=== PATIENT | male | born 1960 | race Caucasian/White ===

== ENCOUNTER 2016-10-16 19:29 | Emergency (ER) | payer MEDICARE, OTHER ==
[2016-10-16 20:16] VITALS: BP 136/80; PULSE 71; RESP 18; TEMP 98.6
[2016-10-16] MEDS ORDERED: SODIUM CHLORIDE 0.9% 500 ML IV STA (21:16)
--- NOTE | 2016-10-16 21:19 | ED ---
General Adult HPI - General Chief complaint: GI Bleed Stated complaint: blood in stool abd pain Time Seen by Provider: 10/16/16 21:00 Source: patient, RN notes reviewed Mode of arrival: ambulatory Limitations: no limitations - History of Present Illness Initial comments: This is a 56-year-old male who presents emergency Department after having some abdominal cramping and then when he had a bowel movement was only bright red blood. Patient states the abdominal cramping continues this time. Patient denies ever having any bright red blood per rectum before. Patient denies any rectal pain. Patient states he had a colonoscopy about a year ago and evidently was normal. Patient denies any blood thinners. Patient denies any lightheadedness dizziness or near syncopal episode. Patient denies any chest pain difficult breathing shortness of breath or palpitations. - Related Data Home Medications Medication Instructions Recorded Confirmed Albuterol Sulfate [Ventolin HFA] 2 puff INHALATION RT-Q6H PRN 09/07/14 03/03/16 Albuterol Nebulized [Ventolin 2.5 mg INHALATION RT-Q4H PRN 03/03/16 03/03/16 Nebulized] Arformoterol Tartrate [Brovana] 15 mcg INHALATION RT-BID 03/03/16 03/03/16 Budesonide [Pulmicort] 0.5 mg INHALATION RT-BID 03/03/16 03/03/16 Ibuprofen [Motrin] 800 mg PO TID PRN 03/03/16 03/03/16 Tiotropium [place] [Spiriva 2 puff INHALATION RT-DAILY 03/03/16 03/03/16 Respimat] hydrOXYzine PAMOATE [Vistaril] 25 mg PO Q6H PRN 03/03/16 03/03/16 oxyCODONE-APAP 5-325MG [Percocet 1 tab PO Q6HR PRN 03/03/16 03/03/16 5-325 mg] Previous Rx's Medication Instructions Recorded Azithromycin [Zithromax Tri-Alfredo] 500 mg PO DAILY #3 tab 03/06/16 guaiFENesin-DM 100-10MG/5ML 10 ml PO TID PRN #1 bottle 03/06/16 [Robitussin DM] predniSONE 10 mg PO DAILY #30 tab 03/06/16 Allergies Allergy/AdvReac Type Severity Reaction Status Date / Time levofloxacin [From Levaquin] Allergy Nausea & Verified 10/16/16 20:17 Vomiting & Diarrhea Review of Systems ROS Statement: Those systems with pertinent positive or pertinent negative responses have been documented in the HPI. ROS Other: All systems not noted in ROS Statement are negative. Past Medical History Past Medical History: COPD Additional Past Medical History / Comment(s): Pt states he has hx of 3 respiratory arrests and was vented, he has r shoulder and bilateral ankle pain, generalized arthritis, History of Any Multi-Drug Resistant Organisms: None Reported Past Surgical History: Adenoidectomy, Hernia Repair, Joint Replacement, Orthopedic Surgery, Tonsillectomy Additional Past Surgical History / Comment(s): R inguinal hernia repair, L rotator cuff repair, bialteral total knee arthroplasties, R shoulder spur removal, teeth extracted, colonoscopy-nromal. Past Anesthesia/Blood Transfusion Reactions: No Reported Reaction Past Psychological History: No Psychological Hx Reported Smoking Status: Former smoker Past Alcohol Use History: None Reported Past Drug Use History: Marijuana - Past Family History Father Family Medical History: Cancer Additional Family Medical History / Comment(s): Father of lung cancer at the age of 68. He was a smoker. Mother Family Medical History: Dementia Additional Family Medical History / Comment(s): Mother is 77yrs old. General Exam - General Exam Comments Initial Comments: GENERAL: Patient is well-developed and well-nourished. Patient is nontoxic and well- hydrated and is in no acute distress. ENT: Neck is soft and supple. No significant lymphadenopathy is noted. Oropharynx is clear. Moist mucous membranes. Neck has full range of motion without eliciting any pain. EYES: The sclera were anicteric and conjunctiva were pink and moist. Extraocular movements were intact and pupils were equal round and reactive to light. Eyelids were unremarkable. PULMONARY: Unlabored respirations. Good breath sounds bilaterally. No audible rales rhonchi or wheezing was noted. CARDIOVASCULAR: There is a regular rate and rhythm without any murmurs gallops or rubs. ABDOMEN: Soft and nontender with normal bowel sounds. No palpable organomegaly was noted. There is no palpable pulsatile mass. SKIN: Skin is clear with no lesions or rashes and otherwise unremarkable. RECTAL Rectal exam showed no external hemorrhoids and no obvious site of bleeding NEUROLOGIC: Patient is alert and oriented x3. Cranial nerves II through XII are grossly intact. Motor and sensory are also intact. Normal speech, volume and content. Symmetrical smile. MUSCULOSKELETAL: Normal extremities with adequate strength and full range of motion. No lower extremity swelling or edema. No calf tenderness. LYMPHATICS: No significant lymphadenopathy is noted PSYCHIATRIC: Normal psychiatric evaluation. Normal interpersonal interactions appears functionally intact in deals appropriately with others. No signs of depression. No signs of anxiety. Limitations: no limitations Course Vital Signs 10/16/16 20:13 Temperature 98.6 F Pulse Rate 71 Respiratory 18 Rate Blood Pressure 136/80 O2 Sat by Pulse 98 Oximetry Medical Decision Making - Medical Decision Making EKG shows a normal sinus rhythm at [address] interval is on a 56 QRS is 86 QT interval 366 QTC is 425. Patient's EKG shows no ST segment elevation or depression. I went back into the patient's room to explain to him his results I told him he needed to stay in the hospital he refused. I discussed this with him with his family present and he continued to refuse he signed out AMA and states he'll follow-up with his own physician if he needs to patient is aware of the risks I explained it to him thoroughly - Lab Data Result diagrams: 10/16/16 21:41 10/16/16 21:41 Lab Results 10/16/16 10/16/16 10/16/16 Range/Units 21:41 21:41 21:41 WBC 17.0 H (3.8-10.6) k/uL RBC 5.00 (4.30-5.90) m/uL Hgb 15.4 (13.0-17.5) gm/dL Hct 45.0 (39.0-53.0) % MCV 89.9 (80.0-100.0) fL MCH 30.8 (25.0-35.0) pg MCHC 34.2 (31.0-37.0) g/dL RDW 14.3 (11.5-15.5) % Plt Count 259 (150-450) k/uL Neutrophils % 79 % Lymphocytes % 17 % Monocytes % 3 % Eosinophils % 1 % Basophils % 0 % Neutrophils # 13.5 H (1.3-7.7) k/uL Lymphocytes # 2.8 (1.0-4.8) k/uL Monocytes # 0.4 (0-1.0) k/uL Eosinophils # 0.2 (0-0.7) k/uL Basophils # 0.1 (0-0.2) k/uL PT (9.0-12.0) sec INR (<1.2) APTT (22.0-30.0) sec Sodium 138 (137-145) mmol/L Potassium 4.7 (3.5-5.1) mmol/L Chloride 103 (98-107) mmol/L Carbon Dioxide 24 (22-30) mmol/L Anion Gap 11 mmol/L BUN 20 (9-20) mg/dL Creatinine 0.98 (0.66-1.25) mg/dL Est GFR (MDRD) Af Amer >60 (>60 ml/min/1.73 sqM) Est GFR (MDRD) Non-Af >60 (>60 ml/min/1.73 sqM) Glucose 110 H (74-99) mg/dL Calcium 9.7 (8.4-10.2) mg/dL Total Bilirubin 0.5 (0.2-1.3) mg/dL AST 17 (17-59) U/L ALT 39 (21-72) U/L Alkaline Phosphatase 108 (38-126) U/L Total Creatine Kinase 60 (55-170) U/L CK-MB (CK-2) 1.1 (0.0-2.4) ng/mL CK-MB (CK-2) Rel Index 1.8 Troponin I <0.012 (0.000-0.034) ng/mL Total Protein 7.5 (6.3-8.2) g/dL Albumin 4.6 (3.5-5.0) g/dL Blood Type Blood Type Recheck Antibody Screen Spec Expiration Date 10/16/16 10/16/16 Range/Units 21:41 21:41 WBC (3.8-10.6) k/uL RBC (4.30-5.90) m/uL Hgb (13.0-17.5) gm/dL Hct (39.0-53.0) % MCV (80.0-100.0) fL MCH (25.0-35.0) pg MCHC (31.0-37.0) g/dL RDW (11.5-15.5) % Plt Count (150-450) k/uL Neutrophils % % Lymphocytes % % Monocytes % % Eosinophils % % Basophils % % Neutrophils # (1.3-7.7) k/uL Lymphocytes # (1.0-4.8) k/uL Monocytes # (0-1.0) k/uL Eosinophils # (0-0.7) k/uL Basophils # (0-0.2) k/uL PT 10.0 (9.0-12.0) sec INR 1.0 (<1.2) APTT 24.2 (22.0-30.0) sec Sodium (137-145) mmol/L Potassium (3.5-5.1) mmol/L Chloride (98-107) mmol/L Carbon Dioxide (22-30) mmol/L Anion Gap mmol/L BUN (9-20) mg/dL Creatinine (0.66-1.25) mg/dL Est GFR (MDRD) Af Amer (>60 ml/min/1.73 sqM) Est GFR (MDRD) Non-Af (>60 ml/min/1.73 sqM) Glucose (74-99) mg/dL Calcium (8.4-10.2) mg/dL Total Bilirubin (0.2-1.3) mg/dL AST (17-59) U/L ALT (21-72) U/L Alkaline Phosphatase (38-126) U/L Total Creatine Kinase (55-170) U/L CK-MB (CK-2) (0.0-2.4) ng/mL CK-MB (CK-2) Rel Index Troponin I (0.000-0.034) ng/mL Total Protein (6.3-8.2) g/dL Albumin (3.5-5.0) g/dL Blood Type O Positive Blood Type Recheck No Antibody Screen NEGATIVE Spec Expiration Date 10/19/20162340 Disposition Clinical Impression: Gastrointestinal hemorrhage Disposition: Left Against Medical Advice Referrals: Bear Arias MD [Primary Care Provider] - 1-2 days Time of Disposition: 22:37
[2016-10-16 21:51] LABS: Basophils # (A) 0.1 k/uL (0-0.2); Basophils % (A) 0 %; CH 30.9; CHCM 34.5; Eosinophils # (A) 0.2 k/uL (0-0.7); Eosinophils % (A) 1 %; HGB 15.4 gm/dL (13.0-17.5); Luc # (Auto) 0.08; Luc % (Auto) 1; Lymphocytes # (A) 2.8 k/uL (1.0-4.8); Lymphocytes % (A) 17 %; MCH 30.8 pg (25.0-35.0); MCHC 34.2 g/dL (31.0-37.0); MCV 89.9 fL (80.0-100.0); Mean Platelet Volume 7.6; Monocytes # (A) 0.4 k/uL (0-1.0); Monocytes % (A) 3 %; Neutrophils # (A) 13.5 k/uL (1.3-7.7); Neutrophils % (A) 79 %; RDW 14.3 % (11.5-15.5)
[2016-10-16 22:02] LABS: ALT 39 U/L (21-72); AST 17 U/L (17-59); Alkaline Phosphatase 108 U/L (38-126); Anion Gap 11 mmol/L; Blood Urea Nitrogen 20 mg/dL (9-20); Calcium 9.7 mg/dL (8.4-10.2); Carbon Dioxide 24 mmol/L (22-30); Chloride 103 mmol/L (98-107); Glucose 110 mg/dL (74-99); Non-African American GFR(MDRD) >60 (>60 ml/min/1.73 sqM); Potassium 4.7 mmol/L (3.5-5.1); Sodium 138 mmol/L (137-145); Total Bilirubin 0.5 mg/dL (0.2-1.3); Total Protein 7.5 g/dL (6.3-8.2)
[2016-10-16 22:03] LABS: Partial Thromboplastin Time 24.2 sec (22.0-30.0)
[2016-10-16 22:18] LABS: Creatine Kinase 60 U/L (55-170)
[2016-10-16 22:30] LABS: Creatine Kinase MB 1.1 ng/mL (0.0-2.4); Troponin I <0.012 ng/mL (0.000-0.034)
== END 2016-10-16 22:44 | disposition left against medical advice (07) ==
LOC: EC 19:29
DX: K92.2 Gastrointestinal hemorrhage, unspecified (principal); J44.9 Chronic obstructive pulmonary disease, unspecified; Z88.1 Allergy status to other antibiotic agents; Z98.890 Other specified postprocedural states; Z87.891 Personal history of nicotine dependence; Z53.29 Procedure and treatment not carried out because of patient's decision for other reasons; Z79.51 Long term (current) use of inhaled steroids; Z79.899 Other long term (current) drug therapy
CPT/HCPCS: 36415; 80053; 82550; 82553; 84484; 85025; 85610; 85730; 86850; 86900; 86901; 93005; 96360; 99285

== ENCOUNTER 2017-03-23 23:02 | Observation (INO) | payer MEDICARE, OTHER ==
[2017-03-23] MEDS ORDERED: ASPIRIN 81 MG PO STA (23:22)
[2017-03-23] MEDS ORDERED: NITROGLYCERIN SL TABS 0.4 MG TAB SUBLINGUAL STA ×3 (23:22)
--- NOTE | 2017-03-23 23:25 | ED ---
General Adult HPI - General Chief complaint: Chest Pain Stated complaint: Chest Pain Time Seen by Provider: 03/23/17 23:19 Source: patient, RN notes reviewed Mode of arrival: wheelchair Limitations: no limitations - History of Present Illness Initial comments: Patient is a pleasant 56-year-old male presenting to the emergency Department with complaints of chest discomfort. Onset of symptoms was around 10:00. Patient was at rest. Patient has discomfort described as pressure or tightness. No radiation. Patient does have some mild associated dyspnea. Discomfort is moderate at this time rated 5/10. No nausea vomiting. No diaphoresis. No history of similar symptoms previously. No leg pain or leg swelling. - Related Data Home Medications Medication Instructions Recorded Confirmed Albuterol Sulfate [Ventolin HFA] 2 puff INHALATION RT-Q6H PRN 09/07/14 03/23/17 Albuterol Nebulized [Ventolin 2.5 mg INHALATION RT-Q4H PRN 03/03/16 03/23/17 Nebulized] Arformoterol Tartrate [Brovana] 15 mcg INHALATION RT-BID 03/03/16 03/23/17 Budesonide [Pulmicort] 0.5 mg INHALATION RT-BID 03/03/16 03/23/17 Ipratropium Nebulized [Atrovent 0.5 mg INHALATION RT-BID 03/23/17 03/23/17 Nebulized] Allergies Allergy/AdvReac Type Severity Reaction Status Date / Time levofloxacin [From Levaquin] Allergy Nausea & Verified 03/23/17 23:34 Vomiting & Diarrhea Review of Systems ROS Statement: Those systems with pertinent positive or pertinent negative responses have been documented in the HPI. ROS Other: All systems not noted in ROS Statement are negative. Constitutional: Denies: fever Eyes: Denies: eye pain ENT: Denies: ear pain Respiratory: Reports: dyspnea. Denies: cough Cardiovascular: Reports: chest pain Endocrine: Denies: fatigue Gastrointestinal: Denies: vomiting Genitourinary: Denies: dysuria Musculoskeletal: Denies: back pain Skin: Denies: rash Neurological: Denies: weakness Past Medical History Past Medical History: COPD Additional Past Medical History / Comment(s): Pt states he has hx of 3 respiratory arrests and was vented, he has r shoulder and bilateral ankle pain, generalized arthritis, History of Any Multi-Drug Resistant Organisms: None Reported Past Surgical History: Adenoidectomy, Hernia Repair, Joint Replacement, Orthopedic Surgery, Tonsillectomy Additional Past Surgical History / Comment(s): R inguinal hernia repair, L rotator cuff repair, bialteral total knee arthroplasties, R shoulder spur removal, teeth extracted, colonoscopy-nromal. Past Anesthesia/Blood Transfusion Reactions: No Reported Reaction Past Psychological History: No Psychological Hx Reported Smoking Status: Former smoker Past Alcohol Use History: None Reported Past Drug Use History: Marijuana - Past Family History Father Family Medical History: Cancer Additional Family Medical History / Comment(s): Father of lung cancer at the age of 68. He was a smoker. Mother Family Medical History: Dementia Additional Family Medical History / Comment(s): Mother is 77yrs old. General Exam Limitations: no limitations General appearance: alert, in no apparent distress Head exam: Present: atraumatic Eye exam: Present: normal appearance, PERRL ENT exam: Present: normal oropharynx Neck exam: Present: normal inspection Respiratory exam: Present: normal lung sounds bilaterally. Absent: chest wall tenderness Cardiovascular Exam: Present: regular rate, normal rhythm Expanded Peripheral pulses: 2+: Radial (R), Radial (L), Dorsalis Pedis (R), Dorsalis Pedis (L) GI/Abdominal exam: Present: soft. Absent: tenderness Extremities exam: Present: normal inspection. Absent: pedal edema, calf tenderness Neurological exam: Present: alert Psychiatric exam: Present: normal affect, normal mood (Doesn't have to stay but is) Skin exam: Present: normal color Course Vital Signs 03/23/17 03/23/17 03/23/17 23:04 23:24 23:38 Temperature 98.9 F Pulse Rate 89 77 73 Respiratory 20 19 18 Rate Blood Pressure 161/90 131/86 122/69 O2 Sat by Pulse 98 100 96 Oximetry 03/23/17 23:52 Temperature Pulse Rate 79 Respiratory 19 Rate Blood Pressure 110/63 O2 Sat by Pulse 97 Oximetry EKG Findings - EKG Comments: EKG Findings:: Normal sinus rhythm 76. CA 168. QRS 74. QT 362. QTC 407. Left axis. Normal QRS. No acute ST change. Medical Decision Making - Medical Decision Making Patient reevaluated and improved following nitroglycerin. Discomfort is mild at this time. Patient and family updated on results and plan. Case was crusted detail with Dr. Armando, who will admit for Dr. Arias. - Lab Data Result diagrams: 03/23/17 23:16 03/23/17 23:16 Lab Results 03/23/17 03/23/17 03/23/17 Range/Units 23:16 23:16 23:16 WBC 10.6 (3.8-10.6) k/uL RBC 5.26 (4.30-5.90) m/uL Hgb 15.6 (13.0-17.5) gm/dL Hct 46.4 (39.0-53.0) % MCV 88.3 (80.0-100.0) fL MCH 29.6 (25.0-35.0) pg MCHC 33.5 (31.0-37.0) g/dL RDW 14.5 (11.5-15.5) % Plt Count 209 (150-450) k/uL Neutrophils % 50 % Lymphocytes % 40 % Monocytes % 5 % Eosinophils % 3 % Basophils % 1 % Neutrophils # 5.3 (1.3-7.7) k/uL Lymphocytes # 4.2 (1.0-4.8) k/uL Monocytes # 0.5 (0-1.0) k/uL Eosinophils # 0.3 (0-0.7) k/uL Basophils # 0.1 (0-0.2) k/uL PT (9.0-12.0) sec INR (<1.2) APTT (22.0-30.0) sec Sodium 139 (137-145) mmol/L Potassium 4.1 (3.5-5.1) mmol/L Chloride 104 (98-107) mmol/L Carbon Dioxide 26 (22-30) mmol/L Anion Gap 9 mmol/L BUN 18 (9-20) mg/dL Creatinine 1.00 (0.66-1.25) mg/dL Est GFR (MDRD) Af Amer >60 (>60 ml/min/1.73 sqM) Est GFR (MDRD) Non-Af >60 (>60 ml/min/1.73 sqM) Glucose 99 (74-99) mg/dL Calcium 9.8 (8.4-10.2) mg/dL Magnesium 2.2 (1.6-2.3) mg/dL Total Bilirubin 0.4 (0.2-1.3) mg/dL AST 20 (17-59) U/L ALT 32 (21-72) U/L Alkaline Phosphatase 107 (38-126) U/L Total Creatine Kinase 66 (55-170) U/L CK-MB (CK-2) 0.6 (0.0-2.4) ng/mL CK-MB (CK-2) Rel Index 0.9 Troponin I <0.012 (0.000-0.034) ng/mL Total Protein 7.1 (6.3-8.2) g/dL Albumin 4.2 (3.5-5.0) g/dL 03/23/17 Range/Units 23:16 WBC (3.8-10.6) k/uL RBC (4.30-5.90) m/uL Hgb (13.0-17.5) gm/dL Hct (39.0-53.0) % MCV (80.0-100.0) fL MCH (25.0-35.0) pg MCHC (31.0-37.0) g/dL RDW (11.5-15.5) % Plt Count (150-450) k/uL Neutrophils % % Lymphocytes % % Monocytes % % Eosinophils % % Basophils % % Neutrophils # (1.3-7.7) k/uL Lymphocytes # (1.0-4.8) k/uL Monocytes # (0-1.0) k/uL Eosinophils # (0-0.7) k/uL Basophils # (0-0.2) k/uL PT 9.6 (9.0-12.0) sec INR 1.0 (<1.2) APTT 24.3 (22.0-30.0) sec Sodium (137-145) mmol/L Potassium (3.5-5.1) mmol/L Chloride (98-107) mmol/L Carbon Dioxide (22-30) mmol/L Anion Gap mmol/L BUN (9-20) mg/dL Creatinine (0.66-1.25) mg/dL Est GFR (MDRD) Af Amer (>60 ml/min/1.73 sqM) Est GFR (MDRD) Non-Af (>60 ml/min/1.73 sqM) Glucose (74-99) mg/dL Calcium (8.4-10.2) mg/dL Magnesium (1.6-2.3) mg/dL Total Bilirubin (0.2-1.3) mg/dL AST (17-59) U/L ALT (21-72) U/L Alkaline Phosphatase (38-126) U/L Total Creatine Kinase (55-170) U/L CK-MB (CK-2) (0.0-2.4) ng/mL CK-MB (CK-2) Rel Index Troponin I (0.000-0.034) ng/mL Total Protein (6.3-8.2) g/dL Albumin (3.5-5.0) g/dL - Radiology Data Radiology results: image reviewed (Chest x-ray shows no acute process) Disposition Clinical Impression: Chest pain Disposition: ADMITTED IP TO THIS [facility] Referrals: Bear Arias MD [Primary Care Provider] - 1-2 days Decision Time: 00:20
[2017-03-23 23:30] LABS: Basophils # (A) 0.1 k/uL (0-0.2); Basophils % (A) 1 %; Eosinophils # (A) 0.3 k/uL (0-0.7); Eosinophils % (A) 3 %; HCT 46.4 % (39.0-53.0); HGB 15.6 gm/dL (13.0-17.5); Lymphocytes # (A) 4.2 k/uL (1.0-4.8); Lymphocytes % (A) 40 %; MCH 29.6 pg (25.0-35.0); MCHC 33.5 g/dL (31.0-37.0); MCV 88.3 fL (80.0-100.0); Mean Platelet Volume 7.8; Monocytes # (A) 0.5 k/uL (0-1.0); Monocytes % (A) 5 %; Neutrophils # (A) 5.3 k/uL (1.3-7.7); Neutrophils % (A) 50 %; Platelet Count 209 k/uL (150-450); RBC 5.26 m/uL (4.30-5.90); RDW 14.5 % (11.5-15.5); WBC 10.6 k/uL (3.8-10.6)
[2017-03-23 23:43] LABS: ALT 32 U/L (21-72); AST 20 U/L (17-59); Albumin 4.2 g/dL (3.5-5.0); Alkaline Phosphatase 107 U/L (38-126); Anion Gap 9 mmol/L; Blood Urea Nitrogen 18 mg/dL (9-20); Calcium 9.8 mg/dL (8.4-10.2); Carbon Dioxide 26 mmol/L (22-30); Chloride 104 mmol/L (98-107); Glucose 99 mg/dL (74-99); Magnesium 2.2 mg/dL (1.6-2.3); Potassium 4.1 mmol/L (3.5-5.1); Sodium 139 mmol/L (137-145); Total Bilirubin 0.4 mg/dL (0.2-1.3); Total Protein 7.1 g/dL (6.3-8.2)
[2017-03-23 23:47] LABS: Partial Thromboplastin Time 24.3 sec (22.0-30.0); Prothrombin Time 9.6 sec (9.0-12.0)
[2017-03-23 23:51] LABS: Creatine Kinase 66 U/L (55-170)
[2017-03-24 00:04] LABS: Creatine Kinase MB 0.6 ng/mL (0.0-2.4); Troponin I <0.012 ng/mL (0.000-0.034)
--- NOTE | 2017-03-24 00:07 | XR ---
EXAM: XR Chest, 2 Views CLINICAL HISTORY: Reason: Chest Pain TECHNIQUE: Frontal and lateral views of the chest. COMPARISON: 03/03/2016 FINDINGS: Lungs: Unremarkable. No consolidation. Pleural space: Unremarkable. No pneumothorax. Heart: Unremarkable. No cardiomegaly. Mediastinum: Unremarkable. Bones/joints: Minimal degenerative disc changes. IMPRESSION: No acute radiographic findings.
[2017-03-24] MEDS ORDERED: HEPARIN SODIUM,PORCINE 5,000 UNIT/ML 1 ML VIAL IV PRN (00:20)
[2017-03-24] MEDS ORDERED: HEPARIN SODIUM,PORCINE 5,000 UNIT/ML 1 ML VIAL IV ONE (00:20)
[2017-03-24] MEDS ORDERED: NITROGLYCERIN SL TABS 0.4 MG TAB SUBLINGUAL PRN (00:20)
[2017-03-24] MEDS ORDERED: ALBUTEROL NEBULIZED 2.5 MG/3 ML INHALATION PRN (00:21)
[2017-03-24] MEDS ORDERED: HEPARIN SOD,PORK IN 0.45% NACL 25,000 UNIT in 0.45% NACL 1 500ML.BAG IV SCH (00:30)
[2017-03-24 03:20] VITALS: BMI 29.2
[2017-03-24 06:18] LABS: Mean Platelet Volume 8.1; Platelet Count 194 k/uL (150-450)
[2017-03-24] MEDS: NITROGLYCERIN OINT 1 INCH/GM PACKET TOPICAL SCH ×2 (06:27→11:09)
[2017-03-24 07:58] VITALS: RESP 16
[2017-03-24] MEDS ORDERED: ASPIRIN 325 MG TAB PO SCH (09:00)
--- NOTE | 2017-03-24 09:45 | P.CRDCN ---
History of Present Illness Consult date: 03/24/17 Requesting physician: Janessa Franco Consult reason: chest pain Chief complaint: Chest pain History of present illness: This is a 56-year-old gentleman with history of COPD, nicotine dependence, marijuana use, history of EtOH abuse, states that he drinks an occasional alcoholic beverage now, history of IV drug use, heroin, crystal meth , cocaine, but states he has not used any of those for the past 5 years or so, patient also has history of hyperlipidemia, untreated. He presents to the hospital with symptoms of chest tightness and heaviness with intermittent sharp chest pains. He does get associated shortness of breath, no diaphoresis or nausea. He states that symptoms started around 9 PM, he was just lying down, no physically exerting activities. Blood pressure 108/70 with a heart rate in the 90s, 97% on room air. Laboratory data, WBC 10.6, hemoglobin 15.6, platelet count 290. Sodium 139, potassium 4.1, BUN 18, creatinine 1.0. Initial troponin 0.012. EKG on arrival here shows a normal sinus rhythm with no acute changes. At the time of my examination this morning, patient is currently chest pain-free. He is on IV heparin, aspirin, and Nitropaste. Chest x-ray did not reveal any acute process. Past Medical History Past Medical History: COPD Additional Past Medical History / Comment(s): Pt states he has hx of 3 respiratory arrests and was vented, he has r shoulder and bilateral ankle pain, generalized arthritis, History of Any Multi-Drug Resistant Organisms: None Reported Past Surgical History: Adenoidectomy, Hernia Repair, Joint Replacement, Orthopedic Surgery, Tonsillectomy Additional Past Surgical History / Comment(s): R inguinal hernia repair, L rotator cuff repair, bialteral total knee arthroplasties, R shoulder spur removal, teeth extracted, colonoscopy-normal. Past Anesthesia/Blood Transfusion Reactions: No Reported Reaction Past Psychological History: No Psychological Hx Reported Additional Psychological History / Comment(s): Pt resides with his mother. He uses no assistive device. He is disabled. 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 Smoking Status: Current every day smoker Past Alcohol Use History: Abuse Additional Past Alcohol Use History / Comment(s): Pt startes smoking in 1974 and quit 11/29/14. 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 Past Drug Use History: Marijuana Additional Drug Use History / Comment(s): Pt states he will smoke one marijuana joint a day. He states in the past he has used heroin, crystal meth, cocaine and crack but none of those drugs for about 5 yrs. - Past Family History Father Family Medical History: Cancer Additional Family Medical History / Comment(s): Father of lung cancer at the age of 68. He was a smoker. Mother Family Medical History: Diabetes Mellitus, Hypertension Additional Family Medical History / Comment(s): Mother is 77yrs old. Medications and Allergies Home Medications Medication Instructions Recorded Confirmed Type Albuterol Sulfate [Ventolin HFA] 2 puff INHALATION RT-Q6H PRN 09/07/14 03/23/17 History Albuterol Nebulized [Ventolin 2.5 mg INHALATION RT-Q4H PRN 03/03/16 03/23/17 History Nebulized] Arformoterol Tartrate [Brovana] 15 mcg INHALATION RT-BID 03/03/16 03/23/17 History Budesonide [Pulmicort] 0.5 mg INHALATION RT-BID 03/03/16 03/23/17 History Ipratropium Nebulized [Atrovent 0.5 mg INHALATION RT-BID 03/23/17 03/23/17 History Nebulized] Allergies Allergy/AdvReac Type Severity Reaction Status Date / Time levofloxacin [From Levaquin] Allergy Nausea & Verified 03/23/17 23:34 Vomiting & Diarrhea Physical Exam Vitals: Vital Signs Temp Pulse Pulse Resp BP BP Pulse Ox 03/24/17 08:32 96 03/24/17 08:24 96 03/24/17 08:00 96 16 03/24/17 07:57 97.7 F 96 16 107/73 97 03/24/17 04:00 96.9 F L 73 18 125/75 96 03/24/17 02:37 97.5 F L 84 19 105/76 99 03/24/17 02:09 96.9 F L 73 18 125/75 96 03/24/17 01:43 98.3 F 89 18 148/76 100 03/24/17 00:53 63 18 110/68 99 03/23/17 23:52 79 19 110/63 97 03/23/17 23:38 73 18 122/69 96 03/23/17 23:24 77 19 131/86 100 03/23/17 23:04 98.9 F 89 20 161/90 98 Intake and Output 03/23/17 03/24/17 03/24/17 22:59 06:59 14:59 Intake Total 238.667 Balance 238.667 Intake: Intake, IV Titration 238.667 Amount Heparin Sod,Pork in 0.45% 238.667 NaCl 25,000 unit In 0.45 % NaCl 1 500ml.bag @ 12 UNITS/KG/HR 20.68 mls/hr IV .Q24H [facility] Rx#: [id number] Other: Voiding Method Toilet Toilet Weight 87.2 kg PHYSICAL EXAMINATION: HEENT: Head is atraumatic, normocephalic. Pupils equal, round. Neck is supple. There is no elevated jugular venous pressure. HEART EXAMINATION: Heart S1, S2 normal. No murmur or gallop heard. CHEST EXAMINATION: Lungs reveal mild decrease in air exchange ABDOMEN: Soft, nontender. Bowel sounds are heard. No organomegaly noted. EXTREMITIES: 2+ peripheral pulses with no evidence of peripheral edema and no calf tenderness noted. NEUROLOGIC patient is awake, alert and oriented -3. . Results 03/24/17 05:59 03/23/17 23:16 Cardiac Enzymes 03/23/17 03/23/17 Range/Units 23:16 23:16 AST 20 (17-59) U/L CK-MB (CK-2) 0.6 (0.0-2.4) ng/mL Troponin I <0.012 (0.000-0.034) ng/mL Coagulation 03/23/17 03/24/17 Range/Units 23:16 05:59 PT 9.6 (9.0-12.0) sec APTT 24.3 44.2 H (22.0-30.0) sec CBC 03/23/17 03/24/17 Range/Units 23:16 05:59 WBC 10.6 (3.8-10.6) k/uL RBC 5.26 (4.30-5.90) m/uL Hgb 15.6 (13.0-17.5) gm/dL Hct 46.4 (39.0-53.0) % Plt Count 209 194 (150-450) k/uL Comprehensive Metabolic Panel 03/23/17 Range/Units 23:16 Sodium 139 (137-145) mmol/L Potassium 4.1 (3.5-5.1) mmol/L Chloride 104 (98-107) mmol/L Carbon Dioxide 26 (22-30) mmol/L BUN 18 (9-20) mg/dL Creatinine 1.00 (0.66-1.25) mg/dL Glucose 99 (74-99) mg/dL Calcium 9.8 (8.4-10.2) mg/dL AST 20 (17-59) U/L ALT 32 (21-72) U/L Alkaline Phosphatase 107 (38-126) U/L Total Protein 7.1 (6.3-8.2) g/dL Albumin 4.2 (3.5-5.0) g/dL Current Medications Generic Name Dose Route Start Last Admin Trade Name Freq PRN Reason Stop Dose Admin Albuterol Sulfate 2.5 mg 03/24/17 00:21 03/24/17 08:22 Ventolin Nebulized INHALATION 2.5 mg RT-Q4H PRN Administration Shortness Of Breath Aspirin 325 mg 03/24/17 09:00 03/24/17 09:05 Aspirin PO 325 mg DAILY PRASHANT Administration Heparin Sodium (Porcine) 0 unit 03/24/17 00:20 Heparin IV Q6HR PRN Low PTT Protocol Heparin Sodium/Sodium Chloride 500 mls @ 20.68 mls/hr 03/24/17 00:30 06:47 25,000 unit/ Sodium Chloride IV 13.6 units/kg/hr .Q24H PRASHANT 23.44 mls/hr Protocol Titration 12 UNITS/KG/HR Nitroglycerin 1 inch 03/24/17 06:00 03/24/17 06:27 Nitro-Bid Oint TOPICAL 1 inch Q6HR PRASHANT Administration Nitroglycerin 0.4 mg 03/24/17 00:20 Nitrostat SUBLINGUAL Q5M PRN Chest Pain Intake and Output 03/23/17 03/24/17 03/24/17 22:59 06:59 14:59 Intake Total 238.667 Balance 238.667 Intake: Intake, IV Titration 238.667 Amount Heparin Sod,Pork in 0.45% 238.667 NaCl 25,000 unit In 0.45 % NaCl 1 500ml.bag @ 12 UNITS/KG/HR 20.68 mls/hr IV .Q24H [facility] Rx#: [id number] Other: Voiding Method Toilet Toilet Weight 87.2 kg 03/24/17 05:59 03/23/17 23:16 EKG Interpretations (text) Initial EKG shows normal sinus rhythm with no acute changes. Assessment and Plan Plan: Assessment and plan #1 symptoms of chest tightness and heaviness, associated shortness of breath. Initial troponin 0.012. EKG shows normal sinus rhythm with no acute changes. #2 nicotine dependence #3 moderate to severe COPD #4 history of EtOH abuse #5 history of IV drug abuse #6 marijuana use #7 hyperlipidemia, untreated Plan We will obtain 2 subsequent troponins, obtain an echocardiogram with Doppler study. If the second troponin is negative, patient is advised to undergo stress testing today. The stress test is negative he may be able to be discharged from cardiology's perspective, if positive further recommendations then will be made. DNP note has been reviewed, I agree with a documented findings and plan of care. Patient was seen and examined.
[2017-03-24 10:09] LABS: Creatine Kinase 83 U/L (55-170)
[2017-03-24 10:22] LABS: Troponin I <0.012 ng/mL (0.000-0.034)
[2017-03-24 10:24] LABS: Creatine Kinase MB 0.8 ng/mL (0.0-2.4)
[2017-03-24 11:09] VITALS: BP 124/81; PULSE 86; TEMP 97.3
[2017-03-24] MEDS ORDERED: DOBUTamine DRIP for NUC MED 500 MG in DEXTROSE/WATER 1 250ML.BAG IV ONE (11:11)
[2017-03-24 11:43] LABS: Creatine Kinase 76 U/L (55-170)
[2017-03-24 11:56] LABS: Creatine Kinase MB 0.5 ng/mL (0.0-2.4); Troponin I <0.012 ng/mL (0.000-0.034)
--- NOTE | 2017-03-24 13:30 | ECHOF ---
Referral Reason:chest pain MEASUREMENTS -------- HEIGHT: 172.7 cm WEIGHT: 87.1 kg BP: 107/73 IVSd: 0.9 cm (0.6 - 1.1) LVIDd: 4.1 cm (3.9 - 5.3) LVPWd: 1.0 cm (0.6 - 1.1) IVSs: 1.2 cm LVIDs: 2.9 cm LVPWs: 1.3 cm LAESV Index (A-L): 16.09 ml/m Ao Diam: 3.7 cm (2.0 - 3.7) AV Cusp: 2.0 cm (1.5 - 2.6) LA Diam: 2.5 cm (2.7 - 3.8) MV E Reyes: 0.58 m/s MV DecT: 336 ms MV A Reyes: 0.73 m/s MV E/A Ratio: 0.80 RAP: 5.00 mmHg RVSP: 11.21 mmHg FINDINGS -------- Sinus rhythm. This was a technically adequate study. The left ventricular size is normal. Left ventricular wall thickness is normal. Overall left vent ricular systolic function is low-normal with, an EF between 50 - 55 %. The right ventricle is normal in size and function. Normal LA size by volume 22+/-6 ml/m2. The right atrium is normal in size. The aortic valve is trileaflet, and appears structurally normal. No aortic stenosis or regurgitation. The mitral valve is normal. There is trace mitral regurgitation. Trace tricuspid regurgitation present. Right ventricular systolic pressure is normal at < 35 mmHg. There is no evidence of pulmonary hypertension. The pulmonic valve was not well visualized. The aortic root size is normal. Normal inferior vena cava with normal inspiratory collapse consistent with estimated right atrial pre ssure of 5 mmHg. The pericardium is normal. There is no pericardial effusion. CONCLUSIONS -------- 1. Sinus rhythm. 2. This was a technically adequate study. 3. The left ventricular size is normal. 4. Left ventricular wall thickness is normal. 5. Normal LA size by volume 22+/-6 ml/m2. 6. The aortic valve is trileaflet, and appears structurally normal. No aortic stenosis or regurgitati on. 7. There is trace mitral regurgitation. 8. Trace tricuspid regurgitation present. 9. Right ventricular systolic pressure is normal at < 35 mmHg. 10. There is no evidence of pulmonary hypertension. 11. The pulmonic valve was not well visualized. 12. The aortic root size is normal. 13. There is no pericardial effusion. B[employer]END[employer] MECH[employer]IC APPRENTICE: Mac David RDCS
--- NOTE | 2017-03-24 14:07 | ECHOS ---
STRESS ECHOCARDIOGRAM DATE OF SERVICE: 03/24/2017 INDICATIONS: Chest pain. MEDICATIONS: Breathing machine medicine. BASELINE HEART RATE: 72 BASELINE BLOOD PRESSURE: 140/88 MAXIMUM HEART RATE: 143 MAXIMUM BLOOD PRESSURE: 143/73 85% MPHR: 140 100% MPHR: 165 MAXIMUM STAGE REACHED: 4 TOTAL EXERCISE TIME: 10:00 Baseline EKG revealed a sinus mechanism without significant ST-T changes. With the dobutamine administration as per protocol, heart rate went up to 143 beats per minute which is more than 85% of predicted maximal. The patient had nondescript chest tightness. Rare isolated PVCs were noted. There was no evidence of any ST-segment changes to indicate ischemia. There was also a ventricular couplet noted. By EKG criteria, this is an unremarkable dobutamine stress test. Baseline echo images revealed normal wall motion and wall thickening of all segments. With dobutamine administration as per protocol, there was progressive increase in contractility noted of all segments suggesting that there is no evidence of any dobutamine induced ischemia on this study. IMPRESSION: 1. By EKG criteria, this is unremarkable dobutamine stress test. 2. Normal dobutamine stress echocardiogram without evidence of ischemia. MMODL / IJN: [id number] /
--- NOTE | 2017-03-24 17:22 | P.HPIM ---
History of Present Illness H&P Date: 03/24/17 (This document as both H&P and discharge summary) Chief Complaint: Chest pain This is a 56 years old male patient of Dr. Joe with past medical history of COPD, nicotine dependence, history of IV drug abuse, hyperlipidemia history of marijuana abuse, history of alcohol abuse presents with acute chest pain that started last night, central in location, sharp stabbing in character started when patient was about to lay down to sleep at around 9 PM. Patient denies any exertional activity associated with pain. Pain improved within one hour of coming to the hospital. EKG on arrival was negative for any ST or T- wave changes. Troponin 3 negative patient was initiated on IV heparin, aspirin and Nitropaste. Cardiology consult was placed. Patient underwent stress test which was negative Review of Systems Constitutional: Denies chills, Denies fever, Denies lethargy, Denies malaise, Denies poor appetite, Denies weakness, Denies weight loss Eyes: denies decreased vision, denies diplopia, denies discharge, denies pain Ears: deny: decreased hearing Ears, nose, mouth and throat: Denies dental pain, Denies headache, Denies nasal discharge, Denies nose pain Cardiovascular: Denies chest pain, Denies decreased exercise tolerance, Denies edema, Denies high blood pressure, Denies irregular heart beat, Denies palpitations, Denies paroxysmal nocturnal dyspnea, Denies rapid heart beat, Denies shortness of breath Respiratory: Denies congestion, Denies cough, Denies cough with sputum, Denies dyspnea, Denies home oxygen, Denies wheezing Gastrointestinal: Denies abdominal pain, Denies change in bowel habits, Denies coffee ground emesis, Denies early satiety, Denies excessive gas, Denies heartburn, Denies hematemesis, Denies hematochezia, Denies loss of appetite, Denies nausea, Denies vomiting Genitourinary: Denies dysuria, Denies flank pain, Denies kidney stones, Denies menorrhagia, Denies urgency, Denies urinary frequency Musculoskeletal: Denies gait dysfunction, Denies limitation of motion, Denies morning stiffness, Denies muscle cramps Integumentary: Denies rash, Denies wounds, Denies brittle nails, Denies change in hair/nails, Denies darkening of skin Neurological: Denies balance difficulties, Denies change in speech, Denies double vision, Denies gait dysfunction, Denies loss of vision, Denies motor disturbance, Denies numbness, Denies paralysis, Denies paresthesias, Denies seizures Psychiatric: Denies anxiety, Denies depression Endocrine: Denies excessive sweating, Denies excessive thirst, Denies high blood sugars, Denies palpitations Hematologic/Lymphatic: Denies easy bruising, Denies lymphadenopathy Past Medical History Past Medical History: COPD Additional Past Medical History / Comment(s): Pt states he has hx of 3 respiratory arrests and was vented, he has r shoulder and bilateral ankle pain, generalized arthritis, History of Any Multi-Drug Resistant Organisms: None Reported Past Surgical History: Adenoidectomy, Hernia Repair, Joint Replacement, Orthopedic Surgery, Tonsillectomy Additional Past Surgical History / Comment(s): R inguinal hernia repair, L rotator cuff repair, bialteral total knee arthroplasties, R shoulder spur removal, teeth extracted, colonoscopy-normal. Past Anesthesia/Blood Transfusion Reactions: No Reported Reaction Past Psychological History: No Psychological Hx Reported Additional Psychological History / Comment(s): Pt resides with his mother. He uses no assistive device. He is disabled. 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 Smoking Status: Current every day smoker Past Alcohol Use History: Abuse Additional Past Alcohol Use History / Comment(s): Pt startes smoking in 1974 and quit 11/29/14. 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 Past Drug Use History: Marijuana Additional Drug Use History / Comment(s): Pt states he will smoke one marijuana joint a day. He states in the past he has used heroin, crystal meth, cocaine and crack but none of those drugs for about 5 yrs. - Past Family History Father Family Medical History: Cancer Additional Family Medical History / Comment(s): Father of lung cancer at the age of 68. He was a smoker. Mother Family Medical History: Diabetes Mellitus, Hypertension Additional Family Medical History / Comment(s): Mother is 77yrs old. Medications and Allergies Home Medications Medication Instructions Recorded Confirmed Type Albuterol Sulfate [Ventolin HFA] 2 puff INHALATION RT-Q6H PRN 09/07/14 03/23/17 History Albuterol Nebulized [Ventolin 2.5 mg INHALATION RT-Q4H PRN 03/03/16 03/23/17 History Nebulized] Arformoterol Tartrate [Brovana] 15 mcg INHALATION RT-BID 03/03/16 03/23/17 History Budesonide [Pulmicort] 0.5 mg INHALATION RT-BID 03/03/16 03/23/17 History Ipratropium Nebulized [Atrovent 0.5 mg INHALATION RT-BID 03/23/17 03/23/17 History Nebulized] Allergies Allergy/AdvReac Type Severity Reaction Status Date / Time levofloxacin [From [facility]] Allergy Nausea & Verified 03/23/17 23:34 Vomiting & Diarrhea Physical Exam Vitals: Vital Signs Temp Pulse Pulse Resp BP BP Pulse Ox 03/24/17 10:59 97.3 F L 86 16 124/81 97 03/24/17 08:32 96 03/24/17 08:24 96 03/24/17 08:00 96 16 03/24/17 07:57 97.7 F 96 16 107/73 97 03/24/17 04:00 96.9 F L 73 18 125/75 96 03/24/17 02:37 97.5 F L 84 19 105/76 99 03/24/17 02:09 96.9 F L 73 18 125/75 96 03/24/17 01:43 98.3 F 89 18 148/76 100 03/24/17 00:53 63 18 110/68 99 03/23/17 23:52 79 19 110/63 97 03/23/17 23:38 73 18 122/69 96 03/23/17 23:24 77 19 131/86 100 03/23/17 23:04 98.9 F 89 20 161/90 98 Intake and Output 03/24/17 03/24/17 03/24/17 06:59 14:59 22:59 Intake Total 238.667 720 Balance 238.667 720 Intake: Intake, IV Titration 238.667 Amount Heparin Sod,Pork in 0.45% 238.667 NaCl 25,000 unit In 0.45 % NaCl 1 500ml.bag @ 12 UNITS/KG/HR 20.68 mls/hr IV .Q24H [facility] Rx#: [id number] Oral 720 Other: Voiding Method Toilet Toilet Weight 87.2 kg - Constitutional General appearance: cooperative, no acute distress, obese - EENT Eyes: anicteric sclerae, PERRLA, normal appearance ENT: hearing grossly normal - Neck Neck: no lymphadenopathy, normal ROM, no other, no rigidity, no stridor, no thyromegaly - Respiratory Respiratory: bilateral: CTA, negative: diminished, dullness, rales, rhonchi - Cardiovascular Rhythm: regular Heart sounds: normal: S1, S2 Abnormal Heart Sounds: no systolic murmur, no diastolic murmur, no rub, no S3 Gallop, no S4 Gallop, no click, no other - Gastrointestinal General gastrointestinal: normal bowel sounds, soft - Integumentary Integumentary: no rash - Neurologic Neurologic: CNII-XII intact - Musculoskeletal Musculoskeletal: gait normal, strength equal bilaterally - Psychiatric Psychiatric: A&O x's 3, appropriate affect Results CBC & Chem 7: 03/24/17 05:59 03/23/17 23:16 Labs: Abnormal Lab Results - Last 24 Hours (Table) 03/24/17 Range/Units 05:59 APTT 44.2 H (22.0-30.0) sec Thrombosis Risk Factor Assmnt - DVT/VTE Prophylaxis DVT/VTE Prophylaxis: Mechanical Prophylaxis ordered - Choose All That Apply Any of the Below Risk Factors Present?: Yes Each Factor Represents 1 point: Abnormal pulmonary function (COPD), Age 41-60 years, Obesity (BMI >25) Other Risk Factors: No Other congenital or acquired thrombophilia - If yes, enter type in comment: No Thrombosis Risk Factor Assessment Total Risk Factor Score: 3 Thrombosis Risk Factor Assessment Level: Moderate Risk Assessment and Plan Plan: #1 chest pain likely noncardiac in nature. Echo suggestive of low normal ejection fraction 50-55% with the negative stress test. There is a possibility of bronchospasm from increased smoking. EKG with normal ST or T-wave changes negative troponin #2 COPD, not in acute exacerbation continue albuterol and Pulmicort Brovana #3 nicotine dependence- patient advised on smoking cessation, is coming down on the number of cigarettes but still not ready to quit #4 marijuana abuse for back pain -patient has not taken it for 1 month #5 DVT prophylaxis with heparin CODE STATUS full code Disposition discharged today
== END 2017-03-24 16:12 | disposition home or self-care (01) ==
LOC: EC 23:02 → 6SEL 03-24 00:20
PROVIDERS: ADMIT Internal Medicine; ATTEND Internal Medicine
DX: R07.89 Other chest pain (principal); J44.9 Chronic obstructive pulmonary disease, unspecified; M13.0 Polyarthritis, unspecified; M25.571 Pain in right ankle and joints of right foot; M25.572 Pain in left ankle and joints of left foot; F10.21 Alcohol dependence, in remission; E78.5 Hyperlipidemia, unspecified; F19.11 Other psychoactive substance abuse, in remission; M54.9 Dorsalgia, unspecified; F17.210 Nicotine dependence, cigarettes, uncomplicated; F12.10 Cannabis abuse, uncomplicated; Z79.899 Other long term (current) drug therapy; Z79.51 Long term (current) use of inhaled steroids; Z88.1 Allergy status to other antibiotic agents; Z80.1 Family history of malignant neoplasm of trachea, bronchus and lung; Z82.49 Family history of ischemic heart disease and other diseases of the circulatory system
CPT/HCPCS: 96366 ×2; 96376; 96365; 99285; 36415; 94640; 93005; 93017; 93306; 93350; 80053; 82550 ×2; 82553 ×2; 83735; 84484 ×2; 85025; 85049; 85610; 85730 ×2; 71020; G0378; J1250; J1644 ×2

== ENCOUNTER 2017-08-01 19:54 | Emergency (ER) | payer MEDICARE, OTHER ==
[2017-08-01 20:21] VITALS: BP 131/87; RESP 18
[2017-08-01] MEDS ORDERED: DIPH,PERTUS(ACELL)TETVAC-LF 0.5 ML VIAL IM ONE (20:47)
--- NOTE | 2017-08-01 21:50 | XR ---
EXAMINATION TYPE: XR finger RT DATE OF EXAM: 08/01/2017 COMPARISON: NONE HISTORY: Pain, laceration first digit after crush injury TECHNIQUE: 3 views right thumb FINDINGS: No acute osseous abnormality is evident. Soft tissues appear within normal limits. No radio paque foreign bodies are identified. IMPRESSION: 1. No acute osseous abnormality.
--- NOTE | 2017-08-01 21:58 | ED ---
General Adult HPI - General Chief complaint: Wound/Laceration Stated complaint: Cut Finger Time Seen by Provider: 08/01/17 21:16 Source: patient, RN notes reviewed Mode of arrival: ambulatory Limitations: no limitations - History of Present Illness Initial comments: 56-year-old male presents to the emergency department for a chief complaint of laceration 3 hours ago. Patient was moving wood when he dropped a piece of wood on his thumb and pinned it between another piece of wood. Patient denies any other injuries from this incident. Patient states his tetanus is not up to date. Patient also complains of tenderness on the distal part of the thumb. Patient has no other complaints at this time including shortness of breath, chest pain, abdominal pain, nausea or vomiting, headache, or visual changes. - Related Data Home Medications Medication Instructions Recorded Confirmed Albuterol Sulfate [Ventolin HFA] 2 puff INHALATION RT-Q6H PRN 09/07/14 03/23/17 Albuterol Nebulized [Ventolin 2.5 mg INHALATION RT-Q4H PRN 03/03/16 03/23/17 Nebulized] Arformoterol Tartrate [Brovana] 15 mcg INHALATION RT-BID 03/03/16 03/23/17 Budesonide [Pulmicort] 0.5 mg INHALATION RT-BID 03/03/16 03/23/17 Ipratropium Nebulized [Atrovent 0.5 mg INHALATION RT-BID 03/23/17 03/23/17 Nebulized] Allergies Allergy/AdvReac Type Severity Reaction Status Date / Time levofloxacin [From [facility]] Allergy Nausea & Verified 08/01/17 20:21 Vomiting & Diarrhea Review of Systems ROS Statement: Those systems with pertinent positive or pertinent negative responses have been documented in the HPI. ROS Other: All systems not noted in ROS Statement are negative. Past Medical History Past Medical History: COPD Additional Past Medical History / Comment(s): Pt states he has hx of 3 respiratory arrests and was vented, he has r shoulder and bilateral ankle pain, generalized arthritis, History of Any Multi-Drug Resistant Organisms: None Reported Past Surgical History: Adenoidectomy, Hernia Repair, Joint Replacement, Orthopedic Surgery, Tonsillectomy Additional Past Surgical History / Comment(s): R inguinal hernia repair, L rotator cuff repair, bialteral total knee arthroplasties, R shoulder spur removal, teeth extracted, colonoscopy-normal. Past Anesthesia/Blood Transfusion Reactions: No Reported Reaction Past Psychological History: No Psychological Hx Reported Smoking Status: Current every day smoker Past Alcohol Use History: Abuse Past Drug Use History: Marijuana - Past Family History Father Family Medical History: Cancer Additional Family Medical History / Comment(s): Father of lung cancer at the age of 68. He was a smoker. Mother Family Medical History: Diabetes Mellitus, Hypertension Additional Family Medical History / Comment(s): Mother is 77yrs old. General Exam Limitations: no limitations General appearance: alert, in no apparent distress Respiratory exam: Present: normal lung sounds bilaterally. Absent: respiratory distress, wheezes, rales, rhonchi, stridor Cardiovascular Exam: Present: regular rate, normal rhythm, normal heart sounds. Absent: systolic murmur, diastolic murmur, rubs, gallop, clicks Extremities exam: Present: full ROM (Full range of motion of the right thumb), tenderness (Tenderness to the distal aspect of the right thumb. No tenderness to the scaphoid area/snuffbox.), normal capillary refill (Refill less than 2 seconds in the right thumb and radial pulse 2+ in upper extremities bilaterally) , other (There is a 1.5 cm laceration on the palmar aspect of the right thumb over the proximal phalange.). Absent: joint swelling (No swelling or ecchymosis noted in the right thumb or rest of the hand.) Course Vital Signs 08/01/17 08/01/17 20:18 21:59 Temperature 98.6 F 98 F Pulse Rate 86 65 Respiratory 18 18 Rate Blood Pressure 131/87 131/87 O2 Sat by Pulse 97 98 Oximetry Procedures - Procedures Initial comment: Body area: Palmar aspect of the right thumb, proximal phalanges Laceration length:1.5 cm Foreign bodies: no foreign bodies Tendon involvement: none Nerve involvement: none Vascular damage: no Anesthesia: local infiltration Local anesthetic: 3 mL 1% lidocaine Preparation: Patient was prepped and draped in the usual sterile fashion. Irrigation solution: saline Irrigation method: Saline jet lavage Skin closure:5-0 Ethilon using sterile technique Number of sutures: 4 Technique: interupted Dressing: antibiotic ointment/ gauze Patient tolerance: Patient tolerated the procedure well with no immediate complications. Medical Decision Making - Medical Decision Making 56-year-old male presents to the emergency department for a chief complaint of right thumb laceration. Patient dropped a piece of wood on it. On exam there is a 1.5 cm laceration to the palmar aspect of the thumb. Full range of motion in the right thumb. Some tenderness distally. Neurovascular intact. X-ray demonstrates no acute fractures or dislocations. Wound was cleaned and 4 sutures were applied. Bacitracin and gauze were used to cover the wound. Patient will return to the department in 7-10 days to have sutures removed. He is aware to watch for signs of infection including spreading redness streaking redness or fever. If he notices these he will come back. If he notices any other worsening symptoms he will return to the emergency department as well. He will follow up with primary care in 1-2 days. Disposition Clinical Impression: Laceration Disposition: HOME SELF-CARE Condition: Good Instructions: Care For Your Stitches (ED), Laceration (ED) Additional Instructions: Please use bacitracin 2 times a day for the next couple days. Keep the wound clean and covered for the next couple days, then leave it open to air. He may shower but do not submerge the wound in water for 48 hours. Motrin Tylenol for pain relief monitor for signs of infection or worsening symptoms and return if any occur. Return in 7-10 days to have sutures removed. Otherwise, follow up with primary care provider in one to 2 days. Is patient prescribed a controlled substance at d/c from ED?: No Referrals: Bear Arias MD [Primary Care Provider] - 1-2 days Time of Disposition: 21:56
[2017-08-01 22:07] VITALS: PULSE 65; TEMP 98
== END 2017-08-01 22:05 | disposition home or self-care (01) ==
LOC: EC 19:54
DX: S61.011A Laceration without foreign body of right thumb without damage to nail, initial encounter (principal); Z23 Encounter for immunization; J44.9 Chronic obstructive pulmonary disease, unspecified; F17.200 Nicotine dependence, unspecified, uncomplicated; Z79.51 Long term (current) use of inhaled steroids; Z88.1 Allergy status to other antibiotic agents; W26.9XXA Contact with unspecified sharp object(s), initial encounter; Y92.89 Other specified places as the place of occurrence of the external cause
CPT/HCPCS: 12001; 90471; 90715; 99283

== ENCOUNTER 2018-09-24 21:05 | Emergency (ER) | payer MEDICARE, OTHER ==
[2018-09-24] MEDS ORDERED: MORPHINE SULFATE 4 MG/ML SYRINGE IVP STA (22:11)
[2018-09-24] MEDS ORDERED: ONDANSETRON 4 MG/2 ML VIAL IVP STA (22:12)
[2018-09-24 22:25] LABS: Basophils # (A) 0.1 k/uL (0-0.2); Basophils % (A) 1 %; Eosinophils # (A) 0.3 k/uL (0-0.7); Eosinophils % (A) 2 %; HCT 42.8 % (39.0-53.0); HGB 14.4 gm/dL (13.0-17.5); Lymphocytes % (A) 14 %; MCH 29.2 pg (25.0-35.0); MCHC 33.8 g/dL (31.0-37.0); MCV 86.5 fL (80.0-100.0); Mean Platelet Volume 7.3; Monocytes # (A) 0.7 k/uL (0-1.0); Monocytes % (A) 5 %; Neutrophils # (A) 11.1 k/uL (1.3-7.7); Neutrophils % (A) 78 %; Platelet Count 216 k/uL (150-450); RBC 4.95 m/uL (4.30-5.90); RDW 13.2 % (11.5-15.5); WBC 14.2 k/uL (3.8-10.6)
[2018-09-24] MEDS ORDERED: SODIUM CHLORIDE 0.9% 1,000 ML IV ONE (22:25)
[2018-09-24] MEDS ORDERED: RX INFO: IV CONTRAST WAS GIVEN 1 EACH MISC MISCELLANE PRN (22:28)
[2018-09-24 22:42] LABS: ALT 20 U/L (21-72); AST 22 U/L (17-59); African American GFR (CKD) >90 (>60 ml/min/1.73 sqM); Albumin 4.5 g/dL (3.5-5.0); Alkaline Phosphatase 125 U/L (38-126); Anion Gap 10 mmol/L; Blood Urea Nitrogen 19 mg/dL (9-20); Calcium 9.3 mg/dL (8.4-10.2); Carbon Dioxide 24 mmol/L (22-30); Chloride 107 mmol/L (98-107); Glucose 112 mg/dL (74-99); Sodium 141 mmol/L (137-145); Total Bilirubin 0.4 mg/dL (0.2-1.3); Total Protein 7.3 g/dL (6.3-8.2)
--- NOTE | 2018-09-24 23:22 | ED ---
General Adult HPI - General Chief complaint: ENT Stated complaint: Ear pain Time Seen by Provider: 09/24/18 21:27 Source: patient, RN notes reviewed, old records reviewed Mode of arrival: ambulatory Limitations: no limitations - History of Present Illness Initial comments: 57-year-old male patient passed history of COPD presents ED with 2 days of right ear pain. Patient reports that he is tender to palpation also tender behind the ear. Patient denies any recent swimming any urinary drainage. Patient denies other complaints at this time. Denies any chest pain shortness of breath abdominal pain nausea vomiting diarrhea fevers or chills. Systemic: Pt denies fatigue, fever/chills, rash. Pt denies weakness, night sweats, weight loss. Neuro: Pt denies headache, visual disturbances, syncope or pre-syncope. HEENT: Pt denies ocular discharge or irritation, rhinorrhea, pharyngitis or notable lymphadenopathy. Cardiopulmonary: Pt denies chest pain, SOB, heart palpitations, dyspnea on exertion. Abdominal/GI: Pt denies abdominal pain, n/v/d. : Pt denies dysuria, burning w/ urination, frequency/urgency. Denies new onset urinary or bowel incontinence. MSK: Pt denies myalgia, loss of strength or function in extremities. Neuro: Pt denies new onset weakness, paresthesias. - Related Data Home Medications Medication Instructions Recorded Confirmed Albuterol Sulfate [Ventolin HFA] 2 puff INHALATION RT-Q6H PRN 09/07/14 03/23/17 Albuterol Nebulized [Ventolin 2.5 mg INHALATION RT-Q4H PRN 03/03/16 03/23/17 Nebulized] Arformoterol Tartrate [Brovana] 15 mcg INHALATION RT-BID 03/03/16 03/23/17 Budesonide [Pulmicort] 0.5 mg INHALATION RT-BID 03/03/16 03/23/17 Ipratropium Nebulized [Atrovent 0.5 mg INHALATION RT-BID 03/23/17 03/23/17 Nebulized 0.2 MG/ML] Previous Rx's Medication Instructions Recorded Ciprofloxacin-Hc Otic Susp [Cipro 3 drops RIGHT EAR BID 10 Days #1 09/25/18 Hc Otic Suspension] bottle Allergies Allergy/AdvReac Type Severity Reaction Status Date / Time levofloxacin [From Levaquin] Allergy Nausea & Verified 09/24/18 21:11 Vomiting & Diarrhea Review of Systems ROS Statement: Those systems with pertinent positive or pertinent negative responses have been documented in the HPI. ROS Other: All systems not noted in ROS Statement are negative. Past Medical History Past Medical History: COPD Additional Past Medical History / Comment(s): Pt states he has hx of 3 respiratory arrests and was vented, he has r shoulder and bilateral ankle pain, generalized arthritis, History of Any Multi-Drug Resistant Organisms: None Reported Past Surgical History: Adenoidectomy, Hernia Repair, Joint Replacement, Orthopedic Surgery, Tonsillectomy Additional Past Surgical History / Comment(s): R inguinal hernia repair, L rotator cuff repair, bialteral total knee arthroplasties, R shoulder spur removal, teeth extracted, colonoscopy-normal. third hernia repair Past Anesthesia/Blood Transfusion Reactions: No Reported Reaction Past Psychological History: No Psychological Hx Reported Smoking Status: Current some day smoker Past Alcohol Use History: Daily Past Drug Use History: Marijuana - Past Family History Father Family Medical History: Cancer Additional Family Medical History / Comment(s): Father of lung cancer at the age of 68. He was a smoker. Mother Family Medical History: Diabetes Mellitus, Hypertension Additional Family Medical History / Comment(s): Mother is 77yrs old. General Exam - General Exam Comments Initial Comments: Constitutional: NAD, AOX3, Pt has pleasant affect. HEENT: NC/AT, trachea midline, neck supple, no lymphadenopathy. Posterior pharynx non erythematous, without exudates. Right external auditory canal displayed otitis externa, left external auditory canal display acute pathology. Tympanic membranes pale khan bilaterally, no bulging or perforation. Posterior R ear mildly tender, non erythematous not boggy no discharge. Mucous membranes moist. Eyes PERRLA, EOM intact. There is no scleral icterus. No pallor noted. Cardiopulmonary: RRR, no murmurs, rubs or gallops, no JVD noted. Lungs CTAB in anterior and posterior pringle. No peripheral edema. Abdominal exam: Abdomen soft and non-distended. Abdomen non-tender to palpation in all 4 quadrants. Bowel sounds active in LLQ. No hepatosplenomegaly. No ecchymosis Neuro: CN II-XII grossly intact. No nuchal rigidity. No raccon eyes, no campuzano sign, no hemotympanum. No cervical spinal tenderness. MSK: No posterior calf tenderness bilaterally, homans sign negative bilaterally. Posterior tibialis and radial pulse +2 bilaterally. Sensation intact in upper and lower extremities. Full active ROM in upper and lower extremities, 5/5 stregnth. Limitations: no limitations Course Vital Signs 09/24/18 09/24/18 09/24/18 21:09 22:10 23:43 Temperature 98.6 F 97.9 F Pulse Rate 99 98 82 Respiratory 16 18 16 Rate Blood Pressure 140/95 120/84 134/91 O2 Sat by Pulse 96 96 97 Oximetry 09/25/18 01:19 Temperature 98 F Pulse Rate 81 Respiratory 16 Rate Blood Pressure 134/88 O2 Sat by Pulse 97 Oximetry Medical Decision Making - Medical Decision Making 57-year-old male patient passed history of COPD presents ED with 2 days of right ear pain. Patient reports that he is tender to palpation also tender behind the ear. Patient denies any recent swimming any urinary drainage. Patient denies other complaints at this time. Denies any chest pain shortness of breath abdominal pain nausea vomiting diarrhea fevers or chills. Patient vital signs stable, afebrile. Physical exam displayed: Right external auditory canal displayed otitis externa, left external auditory canal display acute pathology. Tympanic membranes pale khan bilaterally, no bulging or perforation. Posterior R ear mildly tender, non erythematous not boggy no discharge. Laboratory investigations revealed mild leukocytosis of 14.2. CMP non-impressive. Lactic acid 0.9. CT displayed otitis externa with preauricular lymphadenopathy. Patient administered and discharge with ciprofloxacin otic drops. Patient had upset stomach with levofloxacin orally, no ALLERGIC reaction or anaphylaxis. Patient to follow up with ENT tomorrow. Case discussed with Dr. Gonzalez. - Lab Data Result diagrams: 09/24/18 22:17 09/24/18 22:17 Lab Results 09/24/18 09/24/18 09/24/18 Range/Units 22:17 22:17 23:40 WBC 14.2 H (3.8-10.6) k/uL RBC 4.95 (4.30-5.90) m/uL Hgb 14.4 (13.0-17.5) gm/dL Hct 42.8 (39.0-53.0) % MCV 86.5 (80.0-100.0) fL MCH 29.2 (25.0-35.0) pg MCHC 33.8 (31.0-37.0) g/dL RDW 13.2 (11.5-15.5) % Plt Count 216 (150-450) k/uL Neutrophils % 78 % Lymphocytes % 14 % Monocytes % 5 % Eosinophils % 2 % Basophils % 1 % Neutrophils # 11.1 H (1.3-7.7) k/uL Lymphocytes # 2.0 (1.0-4.8) k/uL Monocytes # 0.7 (0-1.0) k/uL Eosinophils # 0.3 (0-0.7) k/uL Basophils # 0.1 (0-0.2) k/uL Sodium 141 (137-145) mmol/L Potassium 4.0 (3.5-5.1) mmol/L Chloride 107 (98-107) mmol/L Carbon Dioxide 24 (22-30) mmol/L Anion Gap 10 mmol/L BUN 19 (9-20) mg/dL Creatinine 0.83 (0.66-1.25) mg/dL Est GFR (CKD-EPI)AfAm >90 (>60 ml/min/1.73 sqM) Est GFR (CKD-EPI)NonAf >90 (>60 ml/min/1.73 sqM) Glucose 112 H (74-99) mg/dL Plasma Lactic Acid Rito 0.9 (0.7-2.0) mmol/L Calcium 9.3 (8.4-10.2) mg/dL Total Bilirubin 0.4 (0.2-1.3) mg/dL AST 22 (17-59) U/L ALT 20 L (21-72) U/L Alkaline Phosphatase 125 (38-126) U/L Total Protein 7.3 (6.3-8.2) g/dL Albumin 4.5 (3.5-5.0) g/dL Disposition Clinical Impression: Otitis externa Disposition: HOME SELF-CARE Condition: Stable Instructions (If sedation given, give patient instructions): Otitis Externa (ED) Additional Instructions: Patient to adhere to previously discussed treatment plan and will take me dication(s) as directed. Patient to follow up with PCP in 1-2 days. Patient to return to ED if symptoms do not improve. Please see his medication as directed. Follow up with ENT consult tomorrow. Prescriptions: Ciprofloxacin-Hc Otic Susp [Cipro Hc Otic Suspension] 3 drops RIGHT EAR BID 10 Days #1 bottle Is patient prescribed a controlled substance at d/c from ED?: No Referrals: Bear Arias MD [Primary Care Provider] - 1-2 days Donell Ayala MD [STAFF PHYSICIAN] - 1-2 days
[2018-09-24] MEDS ORDERED: cefTRIAXone IN SWFI 1,000 MG/10 ML SYRINGE IVP ONE (23:30)
[2018-09-24 23:44] VITALS: RESP 16
--- NOTE | 2018-09-25 00:15 | CT ---
EXAM: CT Head With Intravenous Contrast CLINICAL HISTORY: Pain TECHNIQUE: Axial computed tomography images of the head/brain with intravenous contrast. CTDI is 96 mGy and DLP is 1552.3 mGy-cm. This CT exam was performed using one or more of the following dose reduction techniques: automated exposure control, adjustment of the mA and/or kV according to patient size, and/or use of iterative reconstruction technique. COMPARISON: No relevant prior studies available. FINDINGS: Brain: Unremarkable. No hemorrhage. No edema. Normal enhancement. Ventricles: Unremarkable. No ventriculomegaly. Bones/joints: Unremarkable. No acute fracture. Soft tissues: Laboratory changes of the external auditory canal soft tissues anterior to and posterior to the external auditory canal. Enlarged lymph node in the preauricular space Sinuses: Unremarkable as visualized. No acute sinusitis. Mastoid air cells: Unremarkable as visualized. No mastoid effusion. IMPRESSION: No intracranial abnormality. Note made of right otitis externa. Mastoids are clear bilaterally <MYCVCSECTION> Critical Value Communications 09/25/18 00:19 Call Nurse HELLEN Forbes on 09/25 00:19 (-04:00)
--- NOTE | 2018-09-25 00:20 | CT ---
EXAM: CT Temporal Bones With Intravenous Contrast CLINICAL HISTORY: rt ear pain TECHNIQUE: Axial computed tomography images of the temporal bones with intravenous contrast. CTDI is 96 mGy and DLP is 1552 mGy-cm. This CT exam was performed using one or more of the following dose reduction techniques: automated exposure control, adjustment of the mA and/or kV according to patient size, and/or use of iterative reconstruction technique. Coronal and sagittal reformatted images were created and reviewed. COMPARISON: No relevant prior studies available. FINDINGS: Right ossicles and middle ear: Unremarkable. Right cochlea: Unremarkable. Right vestibule: Unremarkable. Right semicircular canals: Unremarkable. Right internal auditory canal: Unremarkable. Right external auditory canal: Abnormal soft tissue thickening with inflammatory changes in the soft tissue of the anterior and posterior to the external auditory canal. Enlarged preauricular lymph node findings are consistent with otitis externa clinical correlation is required Right carotid canal: Unremarkable. Right jugular foramen: Unremarkable. Right mastoid air cells: Unremarkable. Right temporomandibular joint: Unremarkable. Left ossicles and middle ear: Unremarkable. Left cochlea: Unremarkable. Left vestibule: Unremarkable. Left semicircular canals: Unremarkable. Left internal auditory canal: Unremarkable. Left external auditory canal: Unremarkable. Left carotid canal: Unremarkable. Left jugular foramen: Unremarkable. Left mastoid air cells: Unremarkable. Left temporomandibular joint: Unremarkable. IMPRESSION: Findings consistent with right otitis externa with enlarged preauricular lymph node and periauricular inflammatory changes
[2018-09-25] MEDS ORDERED: ACETAMINOPHEN TAB 325 MG TAB PO STA (01:13)
[2018-09-25 01:20] VITALS: BP 134/88; PULSE 81; TEMP 98
[2018-09-25] MEDS ORDERED: CIPROFLOXACIN-DEXAMETH 0.3-0.1% DROPS 7.5 ML BTL RIGHT EAR ONE (01:30)
== END 2018-09-25 01:27 | disposition home or self-care (01) ==
LOC: EC 21:05
DX: H60.91 Unspecified otitis externa, right ear (principal); D72.829 Elevated white blood cell count, unspecified; J44.9 Chronic obstructive pulmonary disease, unspecified; M19.90 Unspecified osteoarthritis, unspecified site; F17.200 Nicotine dependence, unspecified, uncomplicated; Z96.653 Presence of artificial knee joint, bilateral; Z79.51 Long term (current) use of inhaled steroids; Z79.899 Other long term (current) drug therapy; Z88.1 Allergy status to other antibiotic agents
CPT/HCPCS: 36415; 80053; 83605; 85025; 87040; 70481; 70460; 99284; 96374; 96375 ×2; 96361; J2270; J2405; J0696; Q9967; 87077; 87186

== ENCOUNTER 2018-09-26 01:35 | Inpatient (IN) | payer MEDICARE, OTHER ==
[2018-09-26] MEDS ORDERED: VANCOMYCIN IV PER PHARMACY 1 EACH MISC MISCELLANE PRN (01:46)
[2018-09-26] MEDS ORDERED: MORPHINE SULFATE 4 MG/ML SYRINGE IVP STA (02:04)
[2018-09-26 02:38] LABS: Basophils % (A) 0 %; Eosinophils # (A) 0.3 k/uL (0-0.7); Eosinophils % (A) 2 %; HCT 43.2 % (39.0-53.0); HGB 14.2 gm/dL (13.0-17.5); Lymphocytes # (A) 3.1 k/uL (1.0-4.8); Lymphocytes % (A) 27 %; MCH 28.6 pg (25.0-35.0); MCHC 32.9 g/dL (31.0-37.0); MCV 86.7 fL (80.0-100.0); Mean Platelet Volume 7.2; Monocytes # (A) 0.6 k/uL (0-1.0); Monocytes % (A) 5 %; Neutrophils # (A) 7.1 k/uL (1.3-7.7); Neutrophils % (A) 63 %; Platelet Count 214 k/uL (150-450); RBC 4.98 m/uL (4.30-5.90); RDW 13.3 % (11.5-15.5); WBC 11.2 k/uL (3.8-10.6)
[2018-09-26 02:48] LABS: INR 0.9 (<1.2); Partial Thromboplastin Time 26.9 sec (22.0-30.0); Prothrombin Time 9.5 sec (9.0-12.0)
[2018-09-26] MEDS ORDERED: VANCOMYCIN 1,500 MG in SODIUM CHLORIDE 0.9% 250 ML IVPB ONE (03:00)
[2018-09-26 03:15] LABS: ALT 18 U/L (21-72); AST 23 U/L (17-59); African American GFR (CKD) >90 (>60 ml/min/1.73 sqM); Albumin 4.2 g/dL (3.5-5.0); Alkaline Phosphatase 115 U/L (38-126); Anion Gap 9 mmol/L; Blood Urea Nitrogen 11 mg/dL (9-20); Calcium 9.3 mg/dL (8.4-10.2); Carbon Dioxide 24 mmol/L (22-30); Chloride 107 mmol/L (98-107); Glucose 103 mg/dL (74-99); Potassium 4.4 mmol/L (3.5-5.1); Sodium 140 mmol/L (137-145); Total Bilirubin 0.7 mg/dL (0.2-1.3); Total Protein 7.1 g/dL (6.3-8.2)
[2018-09-26] MEDS: PIPERACILLIN-TAZOBACTAM 3.375 GM in SODIUM CHLORIDE 0.9% 100 ML IVPB SCH ×2 (03:22→09:10)
[2018-09-26] MEDS ORDERED: MORPHINE SULFATE 4 MG/ML SYRINGE IV STA (03:46)
--- NOTE | 2018-09-26 03:46 | ED ---
General Adult HPI - General Source: patient, RN notes reviewed, old records reviewed Mode of arrival: ambulatory Limitations: no limitations <Janes Castro - Last Filed: 09/26/18 04:03> <Milagro Bragg - Last Filed: 09/27/18 06:00> - General Chief complaint: Recheck/Abnormal Lab/Rx Stated complaint: Antibiotic Treatment Time Seen by Provider: 09/26/18 01:42 - History of Present Illness Initial comments: 57-year-old male patient with past medical history significant for evaluation on 09/24/18 for right ear pain is called back in the ED because of positive blood culture. Patient blood cultures coagulase-negative staph. Patient was discharged with ciprofloxacin HC otic drops for otitis externa. Patient did have a workup to rule out mastoiditis at that time. Patient reports that since discharge he has continued to have right ear pain. Patient also reports fevers and chills. Patient denies any nausea vomiting diarrhea, denies any chest pain shortness of breath. Patient denies any other complaints at this time. This does report that he did contact the ENT office but has not yet been seen by ear nose and throat physician. Systemic: Pt denies fatigue, fever/chills, rash. Pt denies weakness, night sweats, weight loss. Neuro: Pt denies headache, visual disturbances, syncope or pre-syncope. HEENT: Pt denies ocular discharge or irritation, rhinorrhea, pharyngitis or notable lymphadenopathy. Cardiopulmonary: Pt denies chest pain, SOB, heart palpitations, dyspnea on exertion. Abdominal/GI: Pt denies abdominal pain, n/v/d. : Pt denies dysuria, burning w/ urination, frequency/urgency. Denies new onset urinary or bowel incontinence. MSK: Pt denies myalgia, loss of strength or function in extremities. Neuro: Pt denies new onset weakness, paresthesias. (Janes Castro) - Related Data Home Medications Medication Instructions Recorded Confirmed Albuterol Sulfate [Ventolin HFA] 2 puff INHALATION RT-Q6H PRN 09/07/14 09/26/18 Albuterol Nebulized [Ventolin 2.5 mg INHALATION RT-Q4H PRN 03/03/16 09/26/18 Nebulized] Arformoterol Tartrate [Brovana] 15 mcg INHALATION RT-BID 03/03/16 09/26/18 Budesonide [Pulmicort] 0.5 mg INHALATION RT-BID 03/03/16 09/26/18 Ipratropium Nebulized [Atrovent 0.5 mg INHALATION RT-BID 03/23/17 09/26/18 Nebulized 0.2 MG/ML] Previous Rx's Medication Instructions Recorded Ciprofloxacin-Hc Otic Susp [Cipro 3 drops RIGHT EAR BID 10 Days #1 09/25/18 Hc Otic Suspension] bottle Allergies Allergy/AdvReac Type Severity Reaction Status Date / Time levofloxacin [From Levaquin] Allergy Nausea & Verified 09/24/18 21:11 Vomiting & Diarrhea Review of Systems ROS Other: All systems not noted in ROS Statement are negative. <aJnes Castro - Last Filed: 09/26/18 04:03> ROS Other: All systems not noted in ROS Statement are negative. <Milagro Bragg - Last Filed: 09/27/18 06:00> ROS Statement: Those systems with pertinent positive or pertinent negative responses have been documented in the HPI. Past Medical History Past Medical History: COPD Additional Past Medical History / Comment(s): Pt states he has hx of 3 respiratory arrests and was vented, he has r shoulder and bilateral ankle pain, generalized arthritis, History of Any Multi-Drug Resistant Organisms: None Reported Past Surgical History: Adenoidectomy, Hernia Repair, Joint Replacement, Or thopedic Surgery, Tonsillectomy Additional Past Surgical History / Comment(s): R inguinal hernia repair, L rotator cuff repair, bialteral total knee arthroplasties, R shoulder spur removal, teeth extracted, colonoscopy-normal. third hernia repair Past Anesthesia/Blood Transfusion Reactions: No Reported Reaction Past Psychological History: No Psychological Hx Reported Smoking Status: Current some day smoker Past Alcohol Use History: Daily Past Drug Use History: Marijuana - Past Family History Father Family Medical History: Cancer Additional Family Medical History / Comment(s): Father of lung cancer at the age of 68. He was a smoker. Mother Family Medical History: Diabetes Mellitus, Hypertension Additional Family Medical History / Comment(s): Mother is 77yrs old. <Janes Castro - Last Filed: 09/26/18 04:03> General Exam Limitations: no limitations <Janes Castro - Last Filed: 09/26/18 04:03> - General Exam Comments Initial Comments: Constitutional: NAD, AOX3, Pt has pleasant affect. HEENT: NC/AT, trachea midline, neck supple, no lymphadenopathy. Posterior pharynx non erythematous, without exudates. Right otitis externa noted, purulent drainage noted in right auditory canal. Left auditory canal pale khan, no pathology. Right tympanic membrane unable to visualize, left tympanic membrane pale khan, no bulging or perforation. Mucous membranes moist. Eyes PERRLA, EOM intact. There is no scleral icterus. No pallor noted. Cardiopulmonary: RRR, no murmurs, rubs or gallops, no JVD noted. Lungs CTAB in anterior and posterior pringle. No peripheral edema. Abdominal exam: Abdomen soft and non-distended. Abdomen non-tender to palpation in all 4 quadrants. Bowel sounds active in LLQ. No hepatosplenomegaly. No ecchymosis Neuro: CN II-XII grossly intact. No nuchal rigidity. No raccon eyes, no campuzano sign, no hemotympanum. No cervical spinal tenderness. MSK: No posterior calf tenderness bilaterally, homans sign negative bilaterally. Posterior tibialis and radial pulse +2 bilaterally. Sensation intact in upper and lower extremities. Full active ROM in upper and lower extremities, 5/5 stregnth. (Janes Castro) Course Vital Signs 09/26/18 09/26/18 01:43 04:46 Temperature 98.3 F Pulse Rate 87 87 Respiratory 18 18 Rate Blood Pressure 130/93 130/86 O2 Sat by Pulse 98 97 Oximetry Medical Decision Making - Lab Data Result diagrams: 09/26/18 02:12 09/26/18 02:12 <Janes Castro - Last Filed: 09/26/18 04:03> - Lab Data Result diagrams: 09/26/18 02:12 09/26/18 02:12 <Milagro Bragg - Last Filed: 09/27/18 06:00> - Medical Decision Making 57-year-old male patient with past medical history significant for evaluation on 09/24/18 for right ear pain is called back in the ED because of positive blood culture. Patient blood cultures coagulase-negative staph. Patient was discharged with ciprofloxacin HC otic drops for otitis externa. Patient did have a workup to rule out mastoiditis at that time. Patient reports that since discharge he has continued to have right ear pain. Patient also reports fevers and chills. Patient denies any nausea vomiting diarrhea, denies any chest pain shortness of breath. Patient denies any other complaints at this time. This does report that he did contact the ENT office but has not yet been seen by ear nose and throat physician. Patient vital signs stable, afebrile. Physical exam displayed purulent discharge on the right auditory canal, tympanic membrane unable to be visualized. Laboratory investigations revealed a leukocytosis of 11.2 improved from 14 2 days prior. Coagulation studies noncompressive, CMP non-impressive. Lactic acid 1.0. Patient administered 2 L normal saline. Patient began on vancomycin and Zosyn. Patient also administered Ciprodex eardrops for otitis externa. Patient be admitted for continued evaluation and ENT consultation. Case discussed and pt seen by Dr. Bragg. (Janes Castro) I personally saw and evaluated the patient. I agree with the patient is suffering from malignant otitis externa. CT yesterday was negative for esterase. Patient will be admitted for IV antibiotics and evaluation by otolaryngology. She care was discussed with Dr. Fraire who agrees with plan for admission. (Milagro Bragg) - Lab Data Lab Results 09/26/18 09/26/18 09/26/18 Range/Units 02:12 02:12 02:12 WBC 11.2 H (3.8-10.6) k/uL RBC 4.98 (4.30-5.90) m/uL Hgb 14.2 (13.0-17.5) gm/dL Hct 43.2 (39.0-53.0) % MCV 86.7 (80.0-100.0) fL MCH 28.6 (25.0-35.0) pg MCHC 32.9 (31.0-37.0) g/dL RDW 13.3 (11.5-15.5) % Plt Count 214 (150-450) k/uL Neutrophils % 63 % Lymphocytes % 27 % Monocytes % 5 % Eosinophils % 2 % Basophils % 0 % Neutrophils # 7.1 (1.3-7.7) k/uL Lymphocytes # 3.1 (1.0-4.8) k/uL Monocytes # 0.6 (0-1.0) k/uL Eosinophils # 0.3 (0-0.7) k/uL Basophils # 0.0 (0-0.2) k/uL PT (9.0-12.0) sec INR (<1.2) APTT (22.0-30.0) sec Sodium 140 (137-145) mmol/L Potassium 4.4 (3.5-5.1) mmol/L Chloride 107 (98-107) mmol/L Carbon Dioxide 24 (22-30) mmol/L Anion Gap 9 mmol/L BUN 11 (9-20) mg/dL Creatinine 0.72 (0.66-1.25) mg/dL Est GFR (CKD-EPI)AfAm >90 (>60 ml/min/1.73 sqM) Est GFR (CKD-EPI)NonAf >90 (>60 ml/min/1.73 sqM) Glucose 103 H (74-99) mg/dL Plasma Lactic Acid Rito 1.0 (0.7-2.0) mmol/L Calcium 9.3 (8.4-10.2) mg/dL Total Bilirubin 0.7 (0.2-1.3) mg/dL AST 23 (17-59) U/L ALT 18 L (21-72) U/L Alkaline Phosphatase 115 (38-126) U/L Total Protein 7.1 (6.3-8.2) g/dL Albumin 4.2 (3.5-5.0) g/dL 09/26/18 Range/Units 02:12 WBC (3.8-10.6) k/uL RBC (4.30-5.90) m/uL Hgb (13.0-17.5) gm/dL Hct (39.0-53.0) % MCV (80.0-100.0) fL MCH (25.0-35.0) pg MCHC (31.0-37.0) g/dL RDW (11.5-15.5) % Plt Count (150-450) k/uL Neutrophils % % Lymphocytes % % Monocytes % % Eosinophils % % Basophils % % Neutrophils # (1.3-7.7) k/uL Lymphocytes # (1.0-4.8) k/uL Monocytes # (0-1.0) k/uL Eosinophils # (0-0.7) k/uL Basophils # (0-0.2) k/uL PT 9.5 (9.0-12.0) sec INR 0.9 (<1.2) APTT 26.9 (22.0-30.0) sec Sodium (137-145) mmol/L Potassium (3.5-5.1) mmol/L Chloride (98-107) mmol/L Carbon Dioxide (22-30) mmol/L Anion Gap mmol/L BUN (9-20) mg/dL Creatinine (0.66-1.25) mg/dL Est GFR (CKD-EPI)AfAm (>60 ml/min/1.73 sqM) Est GFR (CKD-EPI)NonAf (>60 ml/min/1.73 sqM) Glucose (74-99) mg/dL Plasma Lactic Acid Rito (0.7-2.0) mmol/L Calcium (8.4-10.2) mg/dL Total Bilirubin (0.2-1.3) mg/dL AST (17-59) U/L ALT (21-72) U/L Alkaline Phosphatase (38-126) U/L Total Protein (6.3-8.2) g/dL Albumin (3.5-5.0) g/dL Disposition Is patient prescribed a controlled substance at d/c from ED?: No <Janes Castro - Last Filed: 09/26/18 04:03> <Milagro Bragg - Last Filed: 09/27/18 06:00> Clinical Impression: Positive blood culture, Otitis externa Disposition: ADMITTED IP TO THIS HOSP Condition: Serious
[2018-09-26] MEDS ORDERED: SODIUM CHLORIDE 0.9% 2,000 ML IV ONE (03:48)
[2018-09-26] MEDS ORDERED: MORPHINE SULFATE 4 MG/ML SYRINGE IV PRN (04:14)
[2018-09-26] MEDS ORDERED: ALBUTEROL NEBULIZED 2.5 MG/3 ML INHALATION PRN ×2 (05:37)
[2018-09-26] MEDS: SODIUM CHLORIDE 0.9% 1,000 ML IV SCH ×3 (06:21→20:47)
[2018-09-26 06:41] LABS: Appearance,Urine Clear (Clear); Bilirubin,Urine Negative (Negative); Blood,Urine Negative (Negative); Color,Urine Yellow; Glucose,Urine (UA) Negative (Negative); Ketones,Urine Negative (Negative); Leukocyte Esterase,Urine Negative (Negative); Nitrite,Urine Negative (Negative); PH, Urine 5.5 (5.0-8.0); Protein,Urine Negative (Negative); Specific Gravity,Urine 1.024 (1.001-1.035); Urobilinogen,Urine <2.0 mg/dL (<2.0)
[2018-09-26] MEDS: IPRATROPIUM 0.5 MG/2.5 ML NEBU INHALATION SCH ×2 (09:14→20:42)
[2018-09-26] MEDS: FORMOTEROL FUMARATE 20 MCG/2 ML NEBU INHALATION SCH ×2 (09:14→20:42)
[2018-09-26] MEDS: BUDESONIDE 0.5 MG/2 ML NEBU INHALATION SCH ×2 (09:14→20:42)
[2018-09-26] MEDS ORDERED: CIPROFLOXACIN-DEXAMETH 0.3-0.1% DROPS 7.5 ML BTL RIGHT EAR SCH (10:00)
[2018-09-26] MEDS: VANCOMYCIN 1,500 MG in SODIUM CHLORIDE 0.9% 250 ML IVPB SCH ×2 (12:55→20:42)
[2018-09-26] MEDS ORDERED: HYDROcodone/APAP 5-325MG 1 EACH TAB PO PRN (13:01)
[2018-09-26] MEDS: LIDOCAINE 2% GEL 30 ML TUBE TOPICAL SCH ×2 (13:10→20:35)
--- NOTE | 2018-09-26 13:14 | P.HPIM ---
History of Present Illness H&P Date: 09/26/18 This is a 57-year-old male patient of Dr. Arias with past medical history of COPD, nicotine dependence, history of IV drug abuse, hyperlipidemia history of marijuana abuse, history of alcohol abuse. Patient was initially seen in the emergency center on September 24 for right ear pain. The area was tender to palpation. No drainage and no recent swimming. Patient denied any other complaints at that time including fever or chills. He was discharged home on ciprofloxacin otic drops for otitis externa. Blood culture was obtained at that time that has returned positive for coag-negative staph. Patient was contacted by the emergency center and was instructed to return to the hospital. Patient states that he was going to return to the hospital anyway because he was having significant pain to the right ear, right side of his throat and scalp areas. He states he has used a Q-tip in the ear. No recent swimming. He complains of pain if he lies on his right side. He also status balance is somewhat off. He has never seen ENT. Symptoms have been going on for 4-5 days and he did not have any improvement with the eardrops provided by the emergency center. Patient was started on vancomycin and Zosyn and admitted to the [facility] floor and consult requested with infectious disease and ENT. Repeat blood culture and an ear culture have been obtained on this admission. Review of Systems Constitutional: Denies chills, Denies fatigue, Denies fever, Denies lethargy, Denies malaise, Denies poor appetite, Denies weight loss Ears: right: decreased hearing, earache Ears, nose, mouth and throat: Reports ant. neck pain, Reports mouth pain, Denies dental pain, Denies headache, Denies nasal congestion, Denies nasal discharge, Denies vertigo Cardiovascular: Denies decreased exercise tolerance, Denies dyspnea on exertion, Denies edema, Denies leg edema, Denies lightheadedness, Denies syncope Respiratory: Denies cough, Denies cough with sputum, Denies dyspnea, Denies excessive sputum, Denies hemoptysis, Denies home oxygen, Denies wheezing Gastrointestinal: Denies abdominal pain, Denies loss of appetite, Denies nausea, Denies vomiting Genitourinary: Denies dysuria, Denies urinary frequency, Denies urinary hesitancy, Denies urinary retention Musculoskeletal: Denies frequent falls, Denies gait dysfunction, Denies muscle weakness Integumentary: Denies color changes, Denies pruritus, Denies rash, Denies sores, Denies wounds Neurological: Denies ataxia, Denies change in mentation, Denies change in speech, Denies gait dysfunction, Denies numbness, Denies syncope, Denies weakness Psychiatric: Denies anxiety, Denies depression Endocrine: Denies fatigue, Denies weight change Past Medical History Past Medical History: COPD Additional Past Medical History / Comment(s): Pt states he has hx of 3 r espiratory arrests and was vented, he has r shoulder and bilateral ankle pain, generalized arthritis, History of Any Multi-Drug Resistant Organisms: None Reported Past Surgical History: Adenoidectomy, Hernia Repair, Joint Replacement, Orthopedic Surgery, Tonsillectomy Additional Past Surgical History / Comment(s): R inguinal hernia repair, L rotator cuff repair, bialteral total knee arthroplasties, R shoulder spur removal, teeth extracted, colonoscopy-normal. third hernia repair, left side Past Anesthesia/Blood Transfusion Reactions: No Reported Reaction Past Psychological History: No Psychological Hx Reported Additional Psychological History / Comment(s): Pt resides with his mother. He uses no assistive device. He is disabled. 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 Smoking Status: Current some day smoker Past Alcohol Use History: Daily Additional Past Alcohol Use History / Comment(s): Patient is an active smoker since 1974. He states he has cut down to 2 cigarettes per day. He states he is drinking alcohol in the form of beer about every 2 weeks. He does have history of alcohol abuse. He denies any recent drug use he does have a history of heroin, crystal meth, cocaine and crack use but none in the past 5 years. He does smoke marijuana on a daily basis. Past Drug Use History: Marijuana Additional Drug Use History / Comment(s): Pt states he will smoke one marijuana joint a day. He states in the past he has used heroin, crystal meth, cocaine and crack but none of those drugs for about 5 yrs. - Past Family History Father Family Medical History: Cancer Additional Family Medical History / Comment(s): Father of lung cancer at the age of 68. He was a smoker. Mother Family Medical History: Diabetes Mellitus, Hypertension Additional Family Medical History / Comment(s): Mother is 78yrs old. Medications and Allergies Home Medications Medication Instructions Recorded Confirmed Type Albuterol Sulfate [Ventolin HFA] 2 puff INHALATION RT-Q6H PRN 09/07/14 09/26/18 History Albuterol Nebulized [Ventolin 2.5 mg INHALATION RT-Q4H PRN 03/03/16 09/26/18 History Nebulized] Arformoterol Tartrate [Brovana] 15 mcg INHALATION RT-BID 03/03/16 09/26/18 History Budesonide [Pulmicort] 0.5 mg INHALATION RT-BID 03/03/16 09/26/18 History Ipratropium Nebulized [Atrovent 0.5 mg INHALATION RT-BID 03/23/17 09/26/18 History Nebulized 0.2 MG/ML] Ciprofloxacin-Hc Otic Susp [Cipro 3 drops RIGHT EAR BID 10 Days #1 09/25/18 09/26/18 Rx Hc Otic Suspension] bottle Allergies Allergy/AdvReac Type Severity Reaction Status Date / Time levofloxacin [From Levaquin] Allergy Nausea & Verified 09/24/18 21:11 Vomiting & Diarrhea Physical Exam Vitals: Vital Signs Temp Pulse Pulse Resp BP BP Pulse Ox 09/26/18 07:00 98.1 F 83 17 141/99 96 09/26/18 04:46 87 18 130/86 97 09/26/18 01:43 98.3 F 87 18 130/93 98 Intake and Output 09/25/18 09/26/18 09/26/18 22:59 06:59 14:59 Intake Total 250 Balance 250 Intake: Intake, IV Titration 250 Amount Vancomycin 1,500 mg In 250 Sodium Chloride 0.9% 250 ml @ 125 mls/hr IVPB Q12H [facility] Rx#:[id number] Other: Voiding Method Urinal # Voids 1 Weight 81.647 kg - Constitutional General appearance: cooperative, no acute distress, obese - EENT Eyes: anicteric sclerae, PERRLA, normal appearance ENT: hearing grossly normal on the left ear, hearing is impaired on the right ear. There is significant tenderness to the scalp around the ear, ear auricle itself and anterior lateral neck area. No rash noted. - Neck Neck: no lymphadenopathy, normal ROM, no other, no rigidity, no stridor, no thyromegaly - Respiratory Respiratory: bilateral: CTA, negative: diminished, dullness, rales, rhonchi - Cardiovascular Rhythm: regular Heart sounds: normal: S1, S2 Abnormal Heart Sounds: no systolic murmur, no diastolic murmur, no rub, no S3 Gallop, no S4 Gallop, no click, no other - Gastrointestinal General gastrointestinal: normal bowel sounds, soft - Integumentary Integumentary: no rash - Neurologic Neurologic: CNII-XII intact - Musculoskeletal Musculoskeletal: gait normal, strength equal bilaterally - Psychiatric Psychiatric: A&O x's 3, appropriate affect Results CBC & Chem 7: 09/26/18 02:12 09/26/18 02:12 Labs: Abnormal Lab Results - Last 24 Hours (Table) 09/26/18 09/26/18 Range/Units 02:12 02:12 WBC 11.2 H (3.8-10.6) k/uL Glucose 103 H (74-99) mg/dL ALT 18 L (21-72) U/L Thrombosis Risk Factor Assmnt - DVT/VTE Prophylaxis DVT/VTE Prophylaxis: Pharmacologic Prophylaxis ordered - Choose All That Apply Any of the Below Risk Factors Present?: Yes Each Factor Represents 1 point: Abnormal pulmonary function (COPD), Age 41-60 years Other Risk Factors: No Other congenital or acquired thrombophilia - If yes, enter type in comment: No Thrombosis Risk Factor Assessment Total Risk Factor Score: 2 Thrombosis Risk Factor Assessment Level: Low Risk Assessment and Plan Plan: 1. Blood culture positive for coag-negative staph and also concern for pseudomonas infection. Continue vancomycin and ceftazidime added. Consult with infectious disease. 2. Right otitis externa with significant tenderness to the adjacent areas despite recent treatment as an outpatient. Consult with ENT. We have added in ceftazidime, continue Ciprodex. Lidocaine gel for pain. He is on morphine 4 mg IV every 6 hours for pain and [place] will be added. Toradol scheduled for pain control. 3. Tobacco use and dependence. Smoking cessation. 4. Marijuana use for back pain. 5. COPD, not in exacerbation. Continue albuterol nebulizer treatments every 6 hours as needed, Perforomist twice daily, Atrovent twice daily. 6. DVT prophylaxis. Heparin subcu. 7. GI prophylaxis. Pepcid. Patient will be admitted to the hospital for a minimum of 2 night stay. Discharge plan: Return home. Impression and plan of care have been directed as dictated by the signing physician. Daysi Nunn nurse practitioner acting as scribe for signing physician.
[2018-09-26] MEDS: CIPROFLOXACIN-DEXAMETH 0.3-0.1% DROPS 7.5 ML BTL RIGHT EAR SCH ×2 (15:10→20:35)
[2018-09-26] MEDS ORDERED: VANCOMYCIN 1,500 MG in SODIUM CHLORIDE 0.9% 250 ML IVPB SCH (16:00)
[2018-09-26] MEDS: KETOROLAC 30 MG/ML 1 ML VIAL IVP SCH ×2 (16:02→17:23)
[2018-09-26] MEDS: DEXAMETHASONE SOD PHOSPHATE 10 MG/ML 1 ML VIAL IV SCH (16:04)
[2018-09-26] MEDS: HEPARIN SODIUM,PORCINE 5,000 UNIT/ML 1 ML VIAL SQ SCH (20:35)
--- NOTE | 2018-09-26 23:24 | CONS ---
CONSULTATION REASON FOR THE CONSULTATION: Right ear pain/infection. SOURCE OF CONSULTATION: 09/26/2018. CONSULTING PHYSICIAN: Dr. Tyshawn Roberto. HISTORY OF PRESENT ILLNESS: This patient is a pleasant 57-year-old male who was admitted via [facility] today for definitive treatment of severe ear infection and pain. The patient states that approximately a week prior to coming to [facility], he developed pain in his right ear. The patient states that the pain came on rather spontaneously and was not gradual. It was quite severe and over the course of several days, increased in intensity. The patient admits to frequent use of Q-Tips to clean his ears. I have advised him to not use Q-Tips in his ears for various health reasons. In addition, this patient states that prior to using Q-Tips, he has had numerous episodes of so-called swimmer's ear (although this is not usually even related to swimming) and also that he has had issues with severe itching in the right ear as well as scaling of the skin around the right ear for a number of years. The patient currently is in the process of quitting smoking. He states he has cut down to 2- 3 cigarettes per day. Prior to that, he was smoking 1/2 to 1 pack of cigarettes per day. In addition, the patient states that he has have a history of drug abuse involving most of the major "street drugs" including heroin, cocaine, crack cocaine, crystal meth, marijuana, prescription drugs, etc. He states that he has been a drug free for a number of years.He is also a recovering alcoholic and has not used alcohol for a number of years. The patient states that as the pain got progressively worse, he attempted to contact his family physician but discovered that he was not in his office. He therefore proceeded to [facility] where he was seen by the ER physician and subsequently was diagnosed with an ear infection and was discharged on antibiotic ear drops. He was advised to contact an Ear, Nose, and Throat physician on the following Wednesday. The patient states that he contacted the office of the ENT given to him by the emergency room earlier today, 09/26/2018, but apparently was unable to get a speedy appointment. Therefore, he returned to [facility] Room. I advised the patient that it was not my office that he called, so he may have called either Dr. Kern or Dr. Ayala's office because they were on-call for the hospital over the weekend. The patient states that the ear is quite tender especially to touch. He describes the pain as radiating down into the right side of his neck and at times, the pain is exacerbated with chewing on his right side. He feels that the ear is plugged and states that he and his mother had difficulty putting the prescription ear drops in his ears because they tended not to go all the way down into the ear. The patient is currently on IV antibiotics, vancomycin, and narcotic pain medication. PAST MEDICAL HISTORY: Reveals he has: ALLERGY: TO LEVAQUIN. His allergy Levaquin may actually simply be a side effect because he does not relate any rash, itching, or hives. He states that Levaquin tends to make him sick to his stomach and he develops nausea, vomiting, and eventually diarrhea. He is currently using ciprofloxacin ear drops without any difficulty. SOCIAL HISTORY: He currently smokes less than in 3 cigarettes per day. MEDICATIONS: His current home medications are related to his COPD/emphysema and include Atrovent, Pulmicort, [place], Ventolin, and a nebulizer. The patient does not have a history of diabetes mellitus or hypertension or asthma. He does have a history of COPD/emphysema. REVIEW OF SYSTEMS: Review of systems is positive with respect to the respiratory system as the patient is known to have COPD/emphysema. The remainder of the review of systems is essentially unremarkable. PHYSICAL EXAMINATION: This patient is a very pleasant 57-year-old male who was alert and cooperative. At the present time, he is not in any acute distress, although he does complain that his right ear is quite tender to the touch. HEENT examination: Patient is normocephalic. Examination of the left ear reveals the left canal is quite dry and scaly. The left tympanic membrane middle ear space is free of any fluid or infection. Examination of the right ear reveals extreme tenderness to touch, especially in the region of the tragus of the ear. Pulling the right ear posteriorly and superiorly elicits severe pain, but this is done to open up the canal. Inspection with the otoscope reveals that there was some very dry cerumen in the right canal. I do not see any actual purulent material, however. The canal skin itself is extremely swollen and I am only able to partially see the patient's right tympanic membrane, which appears to be unremarkable with respect to any infection or fluid. The ear was extremely tender to insertion of the otoscope. Palpation of the neck is negative for any neck masses or significant lymphadenopathy. Again, his tenderness is related the to the auricular area. There is no postauricular or mastoid tenderness noted. Pupils are equal, round, react to light and accommodation. Extraocular movements within normal limits. Intranasal examination reveals moderate to severe septal deviation with compensatory hypertrophy of the inferior turbinates and a moderate amount of mucus on the mucous membranes and draining down appropriate posterior pharynx. The mucus is clear. Examination of oropharynx, cranial nerves 2 through 12 and remainder of the head and neck exam are within normal limits. Chest/cardiovascular: Both lung pringle are clear to percussion and auscultation. Lung sounds are somewhat distant, especially at the bases. There is no evidence any rales, rhonchi, or wheezes. The patient is in regular sinus rhythm S1, S2 are present without evidence of any murmurs S3s or S4. Abdomen is no evident masses, megaly, or tenderness. Abdomen is soft. Skin is unremarkable. The remainder of physical exam is unremarkable. IMPRESSION: Right external otitis, doubt malignant or necrotizing external otitis. Apparently an ear culture was performed and this was essentially unremarkable. In addition, the patient has had blood cultures which showed evidence of coagulase-negative gram- positive Staph. The patient's white count is normal and he is afebrile. Therefore, I do not feel we are dealing with any type of septicemia. It is very unusual for an ear infection to cause the patient to become septic. Generally, before this happens, they would develop severe and very obvious osteomyelitis, which at this point, I do not feel the patient any symptoms. In addition, external otitis, so-called swimmer's ear, is frequently not related to swimming. In fact, one of the major modern day causes of external otitis is self inflicted trauma to the ear from use of Q- tips, peroxide, alcohol, or wax removal drops. These latter solutions are extremely drying to the ear canal skin. Frequent cleaning of the ear with the Q-tips tends to disrupt the natural hygiene of the ear and the natural protective wax barrier. In addition, I feel that over the years the patient's regular use of Q-Tips eventually has developed eczematoid external otitis. This is a dry, scaly, itching condition which tends to make the patient want to use the Q-tips even more in an effort to scratch/itch the ear. PLAN: I would continue with the present intravenous medications. I actually feel that the patient probably could tolerate IV Cipro, but because of the fact that it is documented on his chart that he is ALLERGIC TO LEVAQUIN, I would avoid that class medication. I am going to place a Young wick in the patient's right ear. I retrieved a Young wick from my office and placed this in the patient's ear this afternoon without incident. The wick was then inflated with the patient's own Ciprofloxin otic ear drops. This wick will allow the medication to remain in the ear and remain in contact with the canal skin and be more effective for reducing the infection as well as reducing the swelling of the external auditory canal. The wick itself generally falls out once as the swelling goes down or it will be removed at my office. The patient tolerated the insertion of the wick well. It was explained to him that because the wick is present in the ear, the ear will feel plugged and there will be slight pressure. I would continue with the Ciprofloxin otic drops but would increase the dosage to 4 drops in the right ear 3 times daily. I instructed the nurses on the proper way in which to pull the patient's ear posteriorly and superiorly and instill the drops. Because the wick is in place, it is not necessary that the patient remain laying on his side for more than 15 or 30 seconds because the wick will immediately absorb the ear drops. I feel this patient can be discharged tomorrow, 09/27/2018, and I will see him in my office on 09/28/2018 at 1:00 pm. At that time, if the wick has not already fallen out, I will remove it and if any further cleansing of the ear needs to be done, this can be done in my office. I spent time explaining to the patient the pathogenesis of his problems with his ears and strongly urged him to not ever use Q-Tips, peroxide, alcohol, or ear wax removal drops to clean his ears. Also,I instructed him in the proper and safe way to clean his ears and dry his ears on a daily basis. I have already alerted my office and we would like for the hospital nursing staff to call my office tomorrow, 09/27/2018 and confirmed the patient's appointment on Wednesday on 05/2018 at 1:00 pm. I want to thank you for allowing me to assist in the care of your patient. If I could be of any further assistance, please feel free to call my office. Again, from an ENT standpoint, this patient can be discharged home on 09/27/2018 and he should be discharged on an oral antibiotic, possibly the Cleocin 300 mg p.o. t.i.d. for 7- 10 days or whatever the primary care or Infectious Disease physicians feel is appropriate. He should be given the remaining Ciprofloxin otic that he has been using in the hospital and continue using this four drops in the right ear 3 times daily until he is seen in my office on 09/28/2018. MMCOSTA / IJKacey: [id number] / [id number]
[2018-09-27] MEDS: KETOROLAC 30 MG/ML 1 ML VIAL IVP SCH ×3 (00:06→12:45)
[2018-09-27] MEDS: DEXAMETHASONE SOD PHOSPHATE 10 MG/ML 1 ML VIAL IV SCH ×3 (00:07→14:42)
[2018-09-27] MEDS: SODIUM CHLORIDE 0.9% 1,000 ML IV SCH (00:11)
--- NOTE | 2018-09-27 00:42 | P.CONS ---
History of Present Illness - Reason for Consult Consult date: 09/26/18 otitis externa Requesting physician: Katelyn Hernandez - Chief Complaint Right ear pain x 1 week - History of Present Illness Patient is a 57 year male presenting to the area with chief complains of right ear pain swelling and redness that apparently has been going on for about a week patient did not recall any history of any trauma however he does use ear wick routinely to clean up his ears, patient complaining of pain to the right ear to be throbbing almost cannot 10 with severe with no significant radiation patient be complaining of some drainage from his right ear denies having any other URI symptoms patient currently was evaluated in the ER and did have blood culture drawn and was discharged on some oral antibiotic subsequently blood culture be positive with gram-positive cocci and the patient advised to come to the hospital patient did have a CT of the external auditory canal did shows evidence of otitis externa no involvement of middle ear the patient be started on Fortaz and vancomycin and infectious disease was consulted for further recommendation regarding antibiotic therapy Review of Systems Positive points has been mentioned in HPI rest of the systems negative Past Medical History Past Medical History: COPD Additional Past Medical History / Comment(s): Pt states he has hx of 3 respiratory arrests and was vented, he has r shoulder and bilateral ankle pain, generalized arthritis, History of Any Multi-Drug Resistant Organisms: None Reported Past Surgical History: Adenoidectomy, Hernia Repair, Joint Replacement, Orthopedic Surgery, Tonsillectomy Additional Past Surgical History / Comment(s): R inguinal hernia repair, L rotator cuff repair, bialteral total knee arthroplasties, R shoulder spur removal, teeth extracted, colonoscopy-normal. third hernia repair, left side Past Anesthesia/Blood Transfusion Reactions: No Reported Reaction Past Psychological History: No Psychological Hx Reported Additional Psychological History / Comment(s): Pt resides with his mother. He uses no assistive device. He is disabled. 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 Smoking Status: Current some day smoker Past Alcohol Use History: Daily Additional Past Alcohol Use History / Comment(s): Patient is an active smoker since 1974. He states he has cut down to 2 cigarettes per day. He states he is drinking alcohol in the form of beer about every 2 weeks. He does have history of alcohol abuse. He denies any recent drug use he does have a history of heroin, crystal meth, cocaine and crack use but none in the past 5 years. He does smoke marijuana on a daily basis. Past Drug Use History: Marijuana Additional Drug Use History / Comment(s): Pt states he will smoke one marijuana joint a day. He states in the past he has used heroin, crystal meth, cocaine and crack but none of those drugs for about 5 yrs. - Past Family History Father Family Medical History: Cancer Additional Family Medical History / Comment(s): Father of lung cancer at the age of 68. He was a smoker. Mother Family Medical History: Diabetes Mellitus, Hypertension Additional Family Medical History / Comment(s): Mother is 78yrs old. Medications and Allergies Home Medications Medication Instructions Recorded Confirmed Type Albuterol Sulfate [Ventolin HFA] 2 puff INHALATION RT-Q6H PRN 09/07/14 09/26/18 History Albuterol Nebulized [Ventolin 2.5 mg INHALATION RT-Q4H PRN 03/03/16 09/26/18 History Nebulized] Arformoterol Tartrate [Brovana] 15 mcg INHALATION RT-BID 03/03/16 09/26/18 History Budesonide [Pulmicort] 0.5 mg INHALATION RT-BID 03/03/16 09/26/18 History Ipratropium Nebulized [Atrovent 0.5 mg INHALATION RT-BID 03/23/17 09/26/18 History Nebulized 0.2 MG/ML] Ciprofloxacin-Hc Otic Susp [Cipro 3 drops RIGHT EAR BID 10 Days #1 09/25/18 09/26/18 Rx Hc Otic Suspension] bottle Allergies Allergy/AdvReac Type Severity Reaction Status Date / Time levofloxacin [From Levaquin] Allergy Nausea & Verified 09/24/18 21:11 Vomiting & Diarrhea Physical Exam Vitals: Vital Signs Temp Pulse Pulse Resp BP BP Pulse Ox 09/26/18 21:03 85 16 09/26/18 20:52 82 16 09/26/18 20:42 82 16 09/26/18 18:50 98.2 F 75 18 145/82 96 09/26/18 16:00 81 16 09/26/18 15:00 98.8 F 81 16 137/87 97 09/26/18 09:35 80 09/26/18 09:25 76 09/26/18 09:24 76 09/26/18 09:14 76 09/26/18 08:00 83 17 09/26/18 07:00 98.1 F 83 17 141/99 96 09/26/18 04:46 87 18 130/86 97 09/26/18 01:43 98.3 F 87 18 130/93 98 Intake and Output 09/26/18 09/26/18 09/27/18 14:59 22:59 06:59 Intake Total 986 Output Total 600 Balance 386 Intake: Intake, IV Titration 750 Amount Piperacillin-Tazobactam 3 50 .375 gm In Sodium Chloride 0.9% 100 ml @ 25 mls/hr IVPB Q8H PRASHANT Rx#: [id number] Sodium Chloride 0.9% 1, 600 000 ml @ 150 mls/hr IV . Q6H40M PRASHANT Rx#:[id number] cefTAZidime 2 gm In 100 Sodium Chloride 0.9% 100 ml @ 100 mls/hr IVPB Q8HR PRASHANT Rx#:[id number] Oral 236 Output: Urine 600 Other: Voiding Method Urinal Toilet # Voids 1 1 GENERAL DESCRIPTION: Middle-aged male lying in bed, no distress. No tachypnea or accessory muscle of respiration use. HEENT: Shows Pallor , no scleral icterus. Oral mucous membrane is dry. No pharyngeal erythema or thrush Right ear is swollen and red painful to touch no drainage was noticed NECK: Trachea central, no thyromegaly. LUNGS: Unlabored breathing. Clear to auscultation anteriorly. No wheeze or crackle. HEART: S1, S2, regular rate and rhythm. No loud murmur ABDOMEN: Soft, no tenderness , guarding or rigidity, no organomegaly EXTREMITIES: No edema of feet. SKIN: No rash, no masses palpable. NEUROLOGICAL: The patient is awake, alert, oriented x3, mood and affect normal Results CBC & Chem 7: 09/26/18 02:12 09/26/18 02:12 Labs: Abnormal Lab Results - Last 24 Hours (Table) 09/26/18 09/26/18 Range/Units 02:12 02:12 WBC 11.2 H (3.8-10.6) k/uL Glucose 103 H (74-99) mg/dL ALT 18 L (21-72) U/L Microbiology - Last 24 Hours (Table) 09/26/18 02:12 Gram Stain - Preliminary Ear - Right Ear Culture - Preliminary 09/26/18 06:15 Urine Culture - Preliminary Urine,Clean Catch Assessment and Plan Assessment: 1-patient with right otitis externa in this patient currently clinically or radiologically no evidence of any otitis media the likely organism that need to be covered either staph aureus or pseudomonas aeruginosa 2-patient with Levaquin ALLERGY more likely GI side effects rather than true antibiotic ALLERGY Plan: 1-vancomycin pharmacy to dose target of 15 watching his kidney function Vanco trough closely 2-Fortaz 2 g every 8 hour 3-if the patient responded well to vancomycin and Fortaz and his cultures remain to be negative or 40 mg therapy with oral antibiotics we will follow up on clinical condition and cultures to further adjust medication if needed Thank you for this consultation will follow this patient along with you Time with Patient: Greater than 30
[2018-09-27] MEDS: VANCOMYCIN 1,500 MG in SODIUM CHLORIDE 0.9% 250 ML IVPB SCH ×2 (05:13→12:48)
[2018-09-27] MEDS: IPRATROPIUM 0.5 MG/2.5 ML NEBU INHALATION SCH (06:56)
[2018-09-27] MEDS: BUDESONIDE 0.5 MG/2 ML NEBU INHALATION SCH (06:56)
[2018-09-27] MEDS: FORMOTEROL FUMARATE 20 MCG/2 ML NEBU INHALATION SCH (06:56)
[2018-09-27 07:49] VITALS: RESP 16
[2018-09-27] MEDS ORDERED: FAMOTIDINE 20 MG TAB PO SCH (09:00)
[2018-09-27 10:15] LABS: African American GFR (CKD) >90 (>60 ml/min/1.73 sqM)
[2018-09-27] MEDS: LIDOCAINE 2% GEL 30 ML TUBE TOPICAL SCH (10:18)
[2018-09-27] MEDS: HEPARIN SODIUM,PORCINE 5,000 UNIT/ML 1 ML VIAL SQ SCH (10:18)
[2018-09-27] MEDS: CIPROFLOXACIN-DEXAMETH 0.3-0.1% DROPS 7.5 ML BTL RIGHT EAR SCH (10:19)
[2018-09-27] MEDS ORDERED: VANCOMYCIN TROUGH DUE 1 EACH MISC MISCELLANE ONE (11:00)
--- NOTE | 2018-09-27 12:54 | PN ---
PROGRESS NOTE DATE OF SERVICE: 09/27/2018 REASON FOR FOLLOWUP: Right otitis externa. INTERVAL HISTORY: The patient is currently afebrile. The patient has been feeling better. The right ear pain and swelling has improved. No further drainage. Denies having any chest pain or shortness of breath or cough. No abdominal pain, no diarrhea. PHYSICAL EXAMINATION: Blood pressure is 151/98 with a pulse of 96, temperature 98.4. He is 95% on room air. General description is a middle aged male, up in the bed in no distress. HEENT: Examination right ear swelling, redness much improved. LUNGS: Unlabored breathing, clear to auscultation anteriorly. HEART: S1, S2. Regular rate and rhythm. ABDOMEN: Soft, no tenderness. LABS: No new labs. No CBC was done today. His creatinine is 0.68. Vancomycin trough of 19.3. Blood culture negative. The right ear cultures so far negative. DIAGNOSTIC IMPRESSION AND PLAN: Patient right otitis externa. Patient at this time responding to Fortaz and vancomycin. in this patient who did have a history of Levaquin intolerance mostly GI side effect, no allergy. Recommend switching him over to oral Cipro and Keflex for about a week and close outpatient followup. Continue supportive care. MMODL / IJN: [id number] /
[2018-09-27 13:59] VITALS: BP 137/78; PULSE 83; TEMP 98.2
--- NOTE | 2018-09-28 15:01 | P.DS ---
Providers Date of admission: 09/26/18 04:09 Expected date of discharge: 09/27/18 Attending physician: Katelyn Hernandez Consults: 09/26/18 04:01 Consult Physician Stat Consulting Provider: Tyshawn Roberto Consult Reason/Comments: otitis externa Do you want consulting provider notified?: Yes, Notify in am 09/26/18 04:08 Consult Physician Urgent Consulting Provider: Eriberto Bender Consult Reason/Comments: malignant otitis externa Do you want consulting provider notified?: Yes, Notify in am Primary care physician: Bear Arias [facility] Course: This is a 57-year-old male patient of Dr. Arias with past medical history of COPD, nicotine dependence, history of IV drug abuse, hyperlipidemia history of marijuana abuse, history of alcohol abuse. Patient was initially seen in the emergency center on September 24 for right ear pain. The area was tender to palpation. No drainage and no recent swimming. Patient denied any other complaints at that time including fever or chills. He was discharged home on ciprofloxacin otic drops for otitis externa. Blood culture was obtained at that time that has returned positive for coag-negative staph. Patient was contacted by the emergency center and was instructed to return to the hospital. Patient states that he was going to return to the hospital anyway because he was having significant pain to the right ear, right side of his throat and scalp areas. He states he has used a Q-tip in the ear. No recent swimming. He complains of pain if he lies on his right side. He also status balance is somewhat off. He has never seen ENT. Symptoms have been going on for 4-5 days and he did not have any improvement with the eardrops provided by the emergency center. Patient was started on vancomycin and Zosyn [facility] consult requested with infectious disease and ENT. Repeat blood culture and an ear culture have been obtained on this admission. 09/27: Patient was seen by Dr. Roberto and wick was placed in the right ear as well as educated nursing how to apply drops. Ciprofloxacin otic increased to 4 drops 3 times daily. Patient has been advised to follow-up with Dr. Roberto tomorrow. Dr. Bender has recommended ciprofloxacin and Keflex for 7 day course. Patient states the pain in his right ear is significantly improved. Tenderness around the ear, scalp and neck are much improved. Ear culture is showing rare normal skin siva. Patient will follow-up with Dr. Roberto and Dr. Bender. Patient will be discharged home today in stable condition. Discharge diagnoses: 1. Blood culture positive for coag-negative staph, contamination. 2. Right otitis externa, failed outpatient treatment 3. Tobacco use and dependence. 4. Marijuana use for back pain. 5. COPD, not in exacerbation. Discharge plan: Return home. Impression and plan of care have been directed as dictated by the signing physician. Daysi Nunn nurse practitioner acting as scribe for signing physician. Patient Condition at Discharge: Good Plan - Discharge Summary Discharge Rx Participant: Yes New Discharge Prescriptions: New Ciprofloxacin HCl [Cipro] 500 mg PO Q12HR #14 tablet Ciprofloxacin-Dexameth [Ciprodex Otic Susp] 4 drops RIGHT EAR TID #1 bottle Cephalexin [Keflex] 500 mg PO Q8HR #21 cap Continue Albuterol Sulfate [Ventolin HFA] 2 puff INHALATION RT-Q6H PRN PRN Reason: Shortness Of Breath Budesonide [Pulmicort] 0.5 mg INHALATION RT-BID Arformoterol Tartrate [Brovana] 15 mcg INHALATION RT-BID Albuterol Nebulized [Ventolin Nebulized] 2.5 mg INHALATION RT-Q4H PRN PRN Reason: Shortness Of Breath Ipratropium Nebulized [Atrovent Nebulized 0.2 MG/ML] 0.5 mg INHALATION RT-BID Discontinued Ciprofloxacin-Hc Otic Susp [Cipro Hc Otic Suspension] 3 drops RIGHT EAR BID 10 Days #1 bottle Discharge Medication List Albuterol Sulfate [Ventolin HFA] 2 puff INHALATION RT-Q6H PRN 09/07/14 [History] Albuterol Nebulized [Ventolin Nebulized] 2.5 mg INHALATION RT-Q4H PRN 03/03/16 [History] Arformoterol Tartrate [Brovana] 15 mcg INHALATION RT-BID 03/03/16 [History] Budesonide [Pulmicort] 0.5 mg INHALATION RT-BID 03/03/16 [History] Ipratropium Nebulized [Atrovent Nebulized 0.2 MG/ML] 0.5 mg INHALATION RT-BID 03/23/17 [History] Cephalexin [Keflex] 500 mg PO Q8HR #21 cap 09/27/18 [Rx] Ciprofloxacin HCl [Cipro] 500 mg PO Q12HR #14 tablet 09/27/18 [Rx] Ciprofloxacin-Dexameth [Ciprodex Otic Susp] 4 drops RIGHT EAR TID #1 bottle 09/27/18 [Rx] Follow up Appointment(s)/Referral(s): Tyshawn Roberto MD [STAFF PHYSICIAN] - 1-2 Days (Office closed. Please call tomorrow for your follow-up appointment. Thank you) Bear Arias MD [Primary Care Provider] - 10/05/18 8:15 am Eriberto Bender MD [STAFF PHYSICIAN] - 10/04/18 2:15 pm Patient Instructions/Handouts: Otitis Externa (DC) Discharge Disposition: HOME SELF-CARE
== END 2018-09-27 14:26 | disposition home or self-care (01) | DRG 156 ==
LOC: EC 01:35 → 4SSUR 04:09
PROVIDERS: ADMIT Family Medicine; ATTEND Family Medicine
DX: H60.8X1 Other otitis externa, right ear (principal); J43.9 Emphysema, unspecified; J34.2 Deviated nasal septum; J34.3 Hypertrophy of nasal turbinates; M13.0 Polyarthritis, unspecified; E78.5 Hyperlipidemia, unspecified; M54.9 Dorsalgia, unspecified; M25.571 Pain in right ankle and joints of right foot; M25.572 Pain in left ankle and joints of left foot; F10.21 Alcohol dependence, in remission; F15.11 Other stimulant abuse, in remission; F14.11 Cocaine abuse, in remission; F11.11 Opioid abuse, in remission; E66.9 Obesity, unspecified; Z68.27 Body mass index [BMI] 27.0-27.9, adult; F17.210 Nicotine dependence, cigarettes, uncomplicated; Z71.6 Tobacco abuse counseling; Z79.51 Long term (current) use of inhaled steroids; Z79.899 Other long term (current) drug therapy; Z96.653 Presence of artificial knee joint, bilateral; Z98.890 Other specified postprocedural states; Z88.1 Allergy status to other antibiotic agents; Z80.1 Family history of malignant neoplasm of trachea, bronchus and lung; Z83.3 Family history of diabetes mellitus; Z82.49 Family history of ischemic heart disease and other diseases of the circulatory system
CPT/HCPCS: 36415; 80053; 80202; 81003; 82565; 83605; 85025; 85610; 85730; 87040; 87070; 87086; 87205; 94640; 96365; 96367; 96375; 96376; 99284

== ENCOUNTER 2018-12-29 11:52 | Inpatient (IN) | payer MEDICARE, OTHER ==
[2018-12-29] MEDS ORDERED: ALPRAZolam 0.5 MG TAB PO PRN (13:06)
[2018-12-29] MEDS ORDERED: ATORVASTATIN 80 MG TAB PO STA (13:06)
[2018-12-29] MEDS ORDERED: ALPRAZolam 0.25 MG TAB PO PRN (13:06)
[2018-12-29] MEDS ORDERED: ASPIRIN 325 MG TAB PO STA (13:06)
[2018-12-29] MEDS ORDERED: NITROGLYCERIN SL TABS 0.4 MG TAB SUBLINGUAL PRN ×2 (13:06→14:00)
[2018-12-29] MEDS ORDERED: SODIUM CHLORIDE 0.9% 1,000 ML in EMPTY BAG 1 BAG IV ONE (13:06)
[2018-12-29] MEDS ORDERED: VERAPAMIL 2.5 MG/ML 2 ML AMP ONE (13:29)
[2018-12-29] MEDS ORDERED: MIDAZOLAM PF (FBP) 2 MG/2 ML VIAL IVP ONE (13:40)
[2018-12-29] MEDS ORDERED: BIVALIRUDIN 250 MG in SODIUM CHLORIDE 0.9% 50 ML IV ONE (13:44)
[2018-12-29] MEDS: VERAPAMIL SYRINGE (5 MG/10 ML) INTRAARTER ONE ×2 (13:44→13:55)
[2018-12-29] MEDS ORDERED: BIVALIRUDIN BOLUS 250 MG/50 ML IV ONE (13:44)
[2018-12-29] MEDS ORDERED: IV FLUID CONTINUATION 1,000 ML IV ONE (13:45)
[2018-12-29] MEDS ORDERED: HYDROmorphone 1 MG/ML 1 ML SYRINGE ONE (13:46)
[2018-12-29] MEDS ORDERED: HYDROmorphone 1 MG/ML 1 ML SYRINGE IVP ONE (13:47)
[2018-12-29] MEDS ORDERED: NITROGLYCERIN 1000MCG/10ML SYRINGE INTRACORON ONE (13:52)
[2018-12-29] MEDS ORDERED: IOPAMIDOL-370 125ML BTL INJ ONE (13:55)
[2018-12-29] MEDS ORDERED: MAG HYDROX/AL HYDROX/SIMETH 30 ML CUP PO PRN (14:00)
[2018-12-29] MEDS ORDERED: SODIUM CHLORIDE 0.9% 1,000 ML IV SCH (14:00)
[2018-12-29] MEDS ORDERED: ATROPINE SULFATE 0.1 MG/ML 10ML SYRINGE IV PRN (14:00)
[2018-12-29] MEDS ORDERED: ZOLPIDEM 5 MG TAB PO PRN (14:00)
[2018-12-29] MEDS ORDERED: RX INFO: IV CONTRAST WAS GIVEN 1 EACH MISC MISCELLANE PRN (14:00)
[2018-12-29] MEDS ORDERED: IPRATROPIUM-ALBUTEROL 3 ML NEB INHALATION STA (16:01)
[2018-12-29] MEDS ORDERED: ALBUTEROL NEBULIZED 2.5 MG/3 ML INHALATION PRN (16:03)
[2018-12-29] MEDS ORDERED: ACETAMINOPHEN TAB 325 MG TAB PO PRN (16:03)
[2018-12-29] MEDS ORDERED: ONDANSETRON 4 MG/2 ML VIAL IVP PRN (16:07)
[2018-12-29] MEDS: methylPREDNISolone SOD SUCCI 125 MG/2 ML VIAL IV SCH (17:40)
[2018-12-29] MEDS: INSULIN ASPART (NovoLOG) 100 UNIT/ML VIAL SQ SCH ×2 (17:41→20:08)
--- NOTE | 2018-12-29 18:22 | PTCA ---
PERCUTANEOUSTRANS CORORONARY ANGIOGRAPHY DATE OF SERVICE: December 29, 2018 PERFORMING PHYSICIAN: Idris De Luna MD, [employer]. PROCEDURE PERFORMED: Successful stenting of the mid RCA using 3.5 x 15 mm Vision bare metal stent with an excellent angiographic result and reduction of stenosis from 99% to 0%. INDICATIONS: This is a 58-year-old gentleman with history of COPD and smoking, who presented initially to [facility] with chest discomfort and dynamic EKG changes concerning for severe underlying coronary artery disease. Because of that, a heart catheterization was advised. The patient underwent a heart catheterization at [facility] and that revealed critical disease involving the mid RCA appeared to be in the range of 99%. Because of that, a heart PCI was advised. APPROACH: Right radial artery. COMPLICATION: None. LEVEL OF SEDATION: Moderate with sedation length of 15 minutes. PROCEDURE DESCRIPTION: Please refer to the diagnostic heart catheterization report for description of access. Anticoagulation was initiated using Angiomax. Subsequently, I did engage the RCA using JR4 guide. I did wire the RCA using a whisper wire. After that, I did direct stenting using 3.5 x 15 mm Vision bare metal stent where the stent was positioned under fluoroscopic guidance and deployed under its nominal pressure. The following angiogram showed good showed excellent angiographic results with reduction of stenosis from 99% to 0%. The procedure was completed without any complication. POSTPROCEDURE MANAGEMENT: 1. Dual anti-platelet therapy. 2. Risk factors modifications. 3. Follow up with the patient. MMCOSTA / NEFTALIN: [id number] /
--- NOTE | 2018-12-29 18:29 | LTR ---
DATE OF SERVICE: December 29, [address] Arias: MrDov Jo presented to [facility] with chest discomfort concerning for angina and underwent a heart catheterization which revealed critical disease involving the mid RCA. He was brought to [facility] where he underwent successful stenting of the RCA with excellent angiographic results and without any complication. Thank you for allowing us to participate in his care. Please do not hesitate to call if you have any questions or concerns. Sincerely, CORTES / NEFTALIN: [id number] /
[2018-12-29] MEDS: IPRATROPIUM-ALBUTEROL 3 ML NEB INHALATION SCH (19:46)
[2018-12-29] MEDS: BUDESONIDE 1 MG/2 ML NEBU INHALATION SCH (19:46)
[2018-12-29 20:04] LABS: Glucose,Whole Blood 110 mg/dL (75-99)
[2018-12-29] MEDS: ATORVASTATIN 80 MG TAB PO SCH (20:16)
[2018-12-29] MEDS: METOPROLOL TARTRATE 25 MG TAB PO SCH (20:17)
[2018-12-30] MEDS: methylPREDNISolone SOD SUCCI 125 MG/2 ML VIAL IV SCH ×2 (00:40→06:18)
[2018-12-30 06:14] LABS: Glucose,Whole Blood 134 mg/dL (75-99)
[2018-12-30] MEDS: INSULIN ASPART (NovoLOG) 100 UNIT/ML VIAL SQ SCH ×4 (06:15→19:50)
[2018-12-30] MEDS: IPRATROPIUM-ALBUTEROL 3 ML NEB INHALATION SCH ×4 (07:12→19:27)
[2018-12-30] MEDS: BUDESONIDE 1 MG/2 ML NEBU INHALATION SCH ×2 (07:12→19:28)
[2018-12-30 07:22] LABS: HCT 41.6 % (39.0-53.0); HGB 13.6 gm/dL (13.0-17.5); MCH 29.6 pg (25.0-35.0); MCHC 32.8 g/dL (31.0-37.0); MCV 90.3 fL (80.0-100.0); Platelet Count 238 k/uL (150-450); RBC 4.61 m/uL (4.30-5.90); RDW 13.2 % (11.5-15.5); WBC 19.8 k/uL (3.8-10.6)
[2018-12-30 07:47] LABS: African American GFR (CKD) >90 (>60 ml/min/1.73 sqM); Anion Gap 11 mmol/L; Blood Urea Nitrogen 18 mg/dL (9-20); Calcium 9.3 mg/dL (8.4-10.2); Carbon Dioxide 22 mmol/L (22-30); Chloride 106 mmol/L (98-107); Glucose 111 mg/dL (74-99); Potassium 4.3 mmol/L (3.5-5.1); Sodium 139 mmol/L (137-145)
[2018-12-30] MEDS: NICOTINE 21MG/24HR PATCH TRANSDERM SCH (08:44)
[2018-12-30] MEDS: FAMOTIDINE 20 MG TAB PO SCH (08:44)
[2018-12-30] MEDS: CLOPIDOGREL 75 MG TAB PO SCH (08:44)
[2018-12-30] MEDS: LISINOPRIL 2.5 MG TAB PO SCH (08:44)
[2018-12-30] MEDS: ASPIRIN 325 MG TAB PO SCH (08:44)
[2018-12-30] MEDS: METOPROLOL TARTRATE 25 MG TAB PO SCH ×2 (08:44→19:50)
--- NOTE | 2018-12-30 11:04 | CT ---
EXAMINATION TYPE: CT chest wo con DATE OF EXAM: 12/30/2018 COMPARISON: None HISTORY: Productive cough CT DLP: 422.4 mGycm, Automated exposure control for dose reduction was used. CONTRAST: Performed injected with 0 mL of Isovue 300. TECHNIQUE: Axial images were obtained at 5 mm thick sections. Reconstructed images are reviewed on [employer] computer in the coronal plane. FINDINGS: Portion of the thyroid visualized is normal. Minimal plate atelectasis is within the dependent portions of the lung bases bilaterally. Mild emphys ematous change is present. No suspicious focal consolidations or pulmonary masses are evident. There are a few small scattered lymph nodes within the mediastinum. No enlarged mediastinal adenopath y is present. Coronary artery calcifications present. No enlarged mediastinal or hilar adenopathy is evident. The ascending aorta diameter at the level o f the main pulmonary artery is 4.4 cm. The main pulmonary artery diameter at the bifurcation is 2.[address] sections are obtained through the upper abdomen. Abdomen is essentially unremarkable. IMPRESSIONS: 1. Minimal compressive atelectasis. 2. No suspicious infiltrates.
[2018-12-30 11:35] VITALS: BMI 28.8
[2018-12-30 12:02] LABS: Glucose,Whole Blood 111 mg/dL (75-99)
--- NOTE | 2018-12-30 12:27 | P.CONS ---
History of Present Illness - Reason for Consult Consult date: 12/30/18 Medical management - History of Present Illness This is a 58-year-old male patient of Dr. Arias with past medical history of COPD, nicotine dependence, history of IV drug abuse, hyperlipidemia history of marijuana abuse, history of alcohol abuse. Patient was initially seen in the emergency center at [facility] which time he presented with acute shortness of breath with productive cough and phlegm for 1 week along with burning in the chest on and off for the past few months. Initial troponin, d-dimer were negative. TSH 0.844. WBC 14 with hemoglobin 15.0 platelet count 228. Electrolytes were within normal limits, blood sugar 163, alkaline phosphatase 118 otherwise liver function was normal. BUN 11 and creatinine 1. Chest x-ray showed no acute pulmonary process. Patient was admitted for acute hypoxic respiratory failure secondary to COPD exacerbation and acute chest pain with nonspecific ST-T wave changes on EKG. Patient was started on heparin drip. Pain was relieved with morphine and nitro drip and cardiology consult was obtained. Patient subsequently underwent a heart cat heterization with Dr. 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 De Luna. This was completed yesterday. Patient is been afebrile, pulse ox 97% on 2 L, blood pressure 115/63, heart rate 88. WBC 19.8, hemoglobin 13.6, electrolytes within normal limits and creatinine 0.72. Blood sugar 111-134. Patient states that his chest pain and burning in his chest are completely gone after stent was placed. He denies any abdominal pain or nausea. He states he is hungry. Patient does complain of shortness of breath and has started coughing up some blood this morning. Solu-Medrol will be decreased to 40 mg every 8 hours. Patient will be transferred to the [facility] floor. Review of Systems Constitutional: Reports fatigue, Denies chills, Denies fever, Denies malaise, Denies poor appetite, Denies weakness Cardiovascular: Reports chest pain, Reports dyspnea on exertion, Reports shortness of breath, Denies edema, Denies syncope Respiratory: Reports cough, Reports cough with sputum, Reports dyspnea, Reports hemoptysis, Reports wheezing, Denies excessive sputum, Denies home oxygen Gastrointestinal: Denies abdominal pain, Denies diarrhea, Denies loss of appetite, Denies nausea, Denies vomiting Genitourinary: Denies dysuria, Denies urinary retention Musculoskeletal: Denies muscle weakness, Denies myalgias Integumentary: Denies pruritus, Denies rash, Denies wounds Neurological: Denies change in mentation, Denies confusion, Denies numbness, Denies seizures, Denies weakness Psychiatric: Denies anxiety, Denies depression Endocrine: Denies fatigue, Denies weight change Past Medical History Past Medical History: COPD Additional Past Medical History / Comment(s): Pt states he has hx of 3 respiratory arrests and was vented, he has r shoulder and bilateral ankle pain, generalized arthritis, History of Any Multi-Drug Resistant Organisms: None Reported Past Surgical History: Adenoidectomy, Hernia Repair, Joint Replacement, Orthopedic Surgery, Tonsillectomy Additional Past Surgical History / Comment(s): R inguinal hernia repair, L rotator cuff repair, bialteral total knee arthroplasties, R shoulder spur removal, teeth extracted, colonoscopy-normal. third hernia repair, left side Past Anesthesia/Blood Transfusion Reactions: No Reported Reaction Past Psychological History: No Psychological Hx Reported Additional Psychological History / Comment(s): Pt lives in a halfway, mother Smoking Status: Current some day smoker Past Alcohol Use History: Daily Additional Past Alcohol Use History / Comment(s): Patient is an active smoker since 1974. He states he has cut down to a quarter pack per day. He does have history of alcohol abuse. No recent alcohol intake. He denies any recent drug use he does have a history of heroin, crystal meth, cocaine and crack use but none in the past 6 years. He does smoke marijuana on a daily basis. Past Drug Use History: Marijuana Additional Drug Use History / Comment(s): History of marijuana use. He states in the past he has used heroin, crystal meth, cocaine and crack but none of those drugs for about 6 yrs. - Past Family History Father Family Medical History: Cancer Additional Family Medical History / Comment(s): Father of lung cancer at the age of 68. He was a smoker. Mother Family Medical History: Diabetes Mellitus, Hypertension Additional Family Medical History / Comment(s): Mother is 78yrs old. Medications and Allergies Home Medications Medication Instructions Recorded Confirmed Type Albuterol Sulfate [Ventolin HFA] 2 puff INHALATION RT-Q6H PRN 09/07/14 12/29/18 History Albuterol Nebulized [Ventolin 2.5 mg INHALATION RT-Q4H PRN 03/03/16 12/29/18 History Nebulized] Arformoterol Tartrate [Brovana] 15 mcg INHALATION RT-BID 03/03/16 12/29/18 History Budesonide [Pulmicort] 0.5 mg INHALATION RT-BID 03/03/16 12/29/18 History Ipratropium Nebulized [Atrovent 0.5 mg INHALATION RT-BID 03/23/17 12/29/18 History Nebulized 0.2 MG/ML] Ciprofloxacin-Dexameth [Ciprodex 1 drops BOTH EARS TID PRN 12/29/18 12/29/18 History Otic Susp] Aspirin 81 mg PO DAILY #90 chewable 12/30/18 Rx Atorvastatin [Lipitor] 80 mg PO DAILY #90 tab 12/30/18 Rx Clopidogrel Bisulfate [Plavix] 75 mg PO DAILY #90 tab 12/30/18 Rx Metoprolol Tartrate [Lopressor] 25 mg PO BID #180 tablet 12/30/18 Rx Allergies Allergy/AdvReac Type Severity Reaction Status Date / Time levofloxacin [From [facility]] AdvReac Nausea & Verified 12/29/18 18:12 Vomiting & Diarrhea Physical Exam Vitals: Vital Signs Temp Pulse Pulse Pulse Resp BP Pulse Ox 12/30/18 07:25 88 12/30/18 07:12 88 12/30/18 04:00 67 18 115/63 97 12/30/18 00:00 76 18 111/62 97 12/29/18 20:11 80 12/29/18 20:00 97.3 F L 80 19 121/72 96 12/29/18 19:46 80 98 12/29/18 17:15 80 16 120/60 97 12/29/18 16:45 18 136/67 97 12/29/18 16:24 80 12/29/18 16:14 79 12/29/18 16:00 82 16 140/78 98 12/29/18 15:30 84 16 132/71 98 12/29/18 15:15 79 16 127/73 98 12/29/18 15:00 76 16 117/71 98 12/29/18 14:45 78 16 115/63 97 12/29/18 14:30 78 16 118/66 97 12/29/18 14:15 84 16 136/67 98 12/29/18 14:07 85 16 147/69 98 Intake and Output 12/29/18 12/30/18 12/30/18 22:59 06:59 14:59 Other: Voiding Method Toilet Toilet # Voids 2 2 Weight 86.1 kg - Constitutional General appearance: cooperative, no acute distress, obese - EENT Eyes: anicteric sclerae, PERRLA, normal appearance ENT: hearing grossly normal on the left ear, hearing is impaired on the right ear. There is significant tenderness to the scalp around the ear, ear auricle itself and anterior lateral neck area. No rash noted. - Neck Neck: no lymphadenopathy, normal ROM, no other, no rigidity, no stridor, no thyromegaly - Respiratory Respiratory: bilateral: CTA, negative: diminished, dullness, rales, rhonchi - Cardiovascular Rhythm: regular Heart sounds: normal: S1, S2 Abnormal Heart Sounds: no systolic murmur, no diastolic murmur, no rub, no S3 Gallop, no S4 Gallop, no click, no other - Gastrointestinal General gastrointestinal: normal bowel sounds, soft - Integumentary Integumentary: no rash - Neurologic Neurologic: CNII-XII intact - Musculoskeletal Musculoskeletal: gait normal, strength equal bilaterally - Psychiatric Psychiatric: A&O x's 3, appropriate affect Results CBC & Chem 7: 12/30/18 06:39 12/30/18 06:39 Labs: Abnormal Lab Results - Last 24 Hours (Table) 12/29/18 12/30/18 12/30/18 Range/Units 20:02 06:12 06:39 WBC (3.8-10.6) k/uL Glucose 111 H (74-99) mg/dL POC Glucose (mg/dL) 110 H 134 H (75-99) mg/dL 12/30/18 Range/Units 06:39 WBC 19.8 H (3.8-10.6) k/uL Glucose (74-99) mg/dL POC Glucose (mg/dL) (75-99) mg/dL Assessment and Plan Plan: 1. Acute hypoxic respiratory failure secondary to acute exacerbation of COPD. continue DuoNeb treatments 4 times daily and albuterol as needed, Pulmicort 1 mg twice daily, ceftriaxone 1 g daily, Solu-Medrol decreased to 40 mg IV every 8 hours. 2. Acute chest pain secondary to coronary artery disease status post heart catheterization done at [facility] followed by transfer to [facility] for successful stenting of the mid RCA with bare metal stent. Continue aspirin 325 mg daily, Lipitor 80 mg at bedtime, Plavix 75 mg daily, Lopressor 25 mg twice daily. 3. Tobacco use and dependence. Smoking cessation. Nicotine patch. 4. Marijuana use for back pain. 5. Hypertension. Continue lisinopril 2.5 mg daily, Lopressor 6. DVT prophylaxis. 7. GI prophylaxis. Pepcid. Patient will be admitted to the hospital for a minimum of 2 night stay. Discharge plan: Return home. Impression and plan of care have been directed as dictated by the signing physic ian. Daysi Nunn nurse practitioner acting as scribe for signing physician.
--- NOTE | 2018-12-30 14:52 | P.CNPUL ---
History of Present Illness Consult date: 12/30/18 Reason for consult: dyspnea, cough, asthma, COPD Chief complaint: Cough with sputum production mixed with blood History of present illness: This is a 58-year-old male with a long-standing history of smoking and nicotine abuse has a severe COPD came into the hospital with chest pain found to have severe coronary artery disease especially involving the right coronary artery where the stent has been placed, postprocedure patient having episodes of coughing with some makes blood secretions are seen no nikky hemoptysis identified and thought to be related to inflammatory changes in the lung and bronchial mucosa as well as anticoagulants given to him, computed tomography scan of the chest which is been performed reviewed just distal basal subsegmental atelectasis as well as lymphoid no infiltrate or mass wasn't jany ntified Review of Systems All systems: negative Past Medical History Past Medical History: COPD Additional Past Medical History / Comment(s): Pt states he has hx of 3 respiratory arrests and was vented, he has r shoulder and bilateral ankle pain, generalized arthritis, History of Any Multi-Drug Resistant Organisms: None Reported Past Surgical History: Adenoidectomy, Hernia Repair, Joint Replacement, Orthopedic Surgery, Tonsillectomy Additional Past Surgical History / Comment(s): R inguinal hernia repair, L rotator cuff repair, bialteral total knee arthroplasties, R shoulder spur removal, teeth extracted, colonoscopy-normal. third hernia repair, left side Past Anesthesia/Blood Transfusion Reactions: No Reported Reaction Past Psychological History: No Psychological Hx Reported Additional Psychological History / Comment(s): Pt lives in a nursing home, mother Smoking Status: Current some day smoker Past Alcohol Use History: Daily Additional Past Alcohol Use History / Comment(s): Patient is an active smoker since 1974. He states he has cut down to a quarter pack per day. He does have history of alcohol abuse. No recent alcohol intake. He denies any recent drug use he does have a history of heroin, crystal meth, cocaine and crack use but none in the past 6 years. He does smoke marijuana on a daily basis. Past Drug Use History: Marijuana Additional Drug Use History / Comment(s): History of marijuana use. He states in the past he has used heroin, crystal meth, cocaine and crack but none of t hose drugs for about 6 yrs. - Past Family History Father Family Medical History: Cancer Additional Family Medical History / Comment(s): Father of lung cancer at the age of 68. He was a smoker. Mother Family Medical History: Diabetes Mellitus, Hypertension Additional Family Medical History / Comment(s): Mother is 78yrs old. Medications and Allergies Home Medications Medication Instructions Recorded Confirmed Type Albuterol Sulfate [Ventolin HFA] 2 puff INHALATION RT-Q6H PRN 09/07/14 12/29/18 History Albuterol Nebulized [Ventolin 2.5 mg INHALATION RT-Q4H PRN 03/03/16 12/29/18 History Nebulized] Arformoterol Tartrate [Brovana] 15 mcg INHALATION RT-BID 03/03/16 12/29/18 History Budesonide [Pulmicort] 0.5 mg INHALATION RT-BID 03/03/16 12/29/18 History Ipratropium Nebulized [Atrovent 0.5 mg INHALATION RT-BID 03/23/17 12/29/18 History Nebulized 0.2 MG/ML] Ciprofloxacin-Dexameth [Ciprodex 1 drops BOTH EARS TID PRN 12/29/18 12/29/18 History Otic Susp] Aspirin 81 mg PO DAILY #90 chewable 12/30/18 Rx Atorvastatin [Lipitor] 80 mg PO DAILY #90 tab 12/30/18 Rx Clopidogrel Bisulfate [Plavix] 75 mg PO DAILY #90 tab 12/30/18 Rx Metoprolol Tartrate [Lopressor] 25 mg PO BID #180 tablet 12/30/18 Rx Allergies Allergy/AdvReac Type Severity Reaction Status Date / Time levofloxacin [From Levaquin] AdvReac Nausea & Verified 12/29/18 18:12 Vomiting & Diarrhea Physical Exam Vitals: Vital Signs Temp Pulse Pulse Pulse Resp BP Pulse Ox 12/30/18 12:00 95 18 137/81 97 12/30/18 11:11 90 12/30/18 11:01 90 12/30/18 08:00 97.9 F 81 22 128/73 100 12/30/18 07:25 88 12/30/18 07:12 88 12/30/18 04:00 67 18 115/63 97 12/30/18 00:00 76 18 111/62 97 12/29/18 20:11 80 12/29/18 20:00 97.3 F L 80 19 121/72 96 12/29/18 19:46 80 98 12/29/18 17:15 80 16 120/60 97 12/29/18 16:45 18 136/67 97 12/29/18 16:24 80 12/29/18 16:14 79 12/29/18 16:00 82 16 140/78 98 12/29/18 15:30 84 16 132/71 98 12/29/18 15:15 79 16 127/73 98 12/29/18 15:00 76 16 117/71 98 12/29/18 14:45 78 16 115/63 97 Intake and Output 12/29/18 12/30/18 12/30/18 22:59 06:59 14:59 Intake Total 240 Balance 240 Intake: Oral 240 Other: Voiding Method Toilet Toilet # Voids 2 2 1 Weight 86.1 kg 86.1 kg - Constitutional General appearance: average body habitus, cooperative, disheveled - EENT Eyes: anicteric sclerae, EOMI, PERRLA, normal appearance ENT: normal oropharynx Ears: bilateral: normal - Neck Neck: normal ROM Carotids: bilateral: upstroke normal Thyroid: bilateral: normal size - Respiratory Respiratory: bilateral: CTA, diminished, wheezing (Fine bilateral), negative: dullness, rales, rhonchi - Cardiovascular Heart sounds: normal: S1, S2 - Gastrointestinal General gastrointestinal: normal bowel sounds - Neurologic Neurologic: CNII-XII intact - Musculoskeletal Musculoskeletal: gait normal, generalized weakness, strength equal bilaterally - Psychiatric Psychiatric: A&O x's 3, appropriate affect, intact judgment & insight Results - Laboratory Findings CBC and BMP: 12/30/18 06:39 12/30/18 06:39 PT/INR, D-dimer D-Dimer 0.25 mg/L FEU (<0.60) 12/30/18 09:05 Abnormal lab findings: Abnormal Labs 12/29/18 12/30/18 12/30/18 20:02 06:12 06:39 WBC Glucose 111 H POC Glucose (mg/dL) 110 H 134 H 12/30/18 12/30/18 06:39 11:50 WBC 19.8 H Glucose POC Glucose (mg/dL) 111 H - Diagnostic Findings CT scan - chest: report reviewed, image reviewed (Some subtle segmental atelectasis identified as noted above) Assessment and Plan Assessment: Hemoptysis and likely related to airway inflammation and anticoagulant Unstable angina Coronary artery disease status post stent right coronary artery Severe COPD Tracheobronchitis Plan: IV steroids can be changed to oral 24 hours like Medrol Dosepak Breathing treatments Antibiotics which can be changed to oral Next 24 hours like Ceftin 250 twice a day or Bactrim DS 1 tablet twice a day for a week If stable can be discharge in next 24-48 hours follow-up in outpatient basis Time with Patient: Greater than 30
[2018-12-30 17:06] LABS: Glucose,Whole Blood 124 mg/dL (75-99)
[2018-12-30] MEDS: methylPREDNISolone SOD SUCCI 40 MG/ML 1 ML VIAL IV SCH ×2 (17:38→22:13)
[2018-12-30] MEDS: ATORVASTATIN 80 MG TAB PO SCH (19:50)
[2018-12-30 19:51] LABS: Glucose,Whole Blood 152 mg/dL (75-99)
[2018-12-30] MEDS ORDERED: IPRATROPIUM-ALBUTEROL 3 ML NEB INHALATION STA (22:09)
--- NOTE | 2018-12-31 01:14 | PN ---
PROGRESS NOTE Mr. Jo underwent stenting of mid RCA performed by Dr. De Luna yesterday. He is doing well. His right radial cath site is clean and dry. Vitals are stable. S1/S2 heard normally. No significant murmurs. Lungs reveal decent air entry. Abdomen and lower extremity exam is otherwise unchanged. Plan is to continue current medications. He can be discharged and he will follow up with Dr. De Luna in the outpatient setting. The right radial cath site is clean and dry. He is advised to be on dual antiplatelet therapy. I gave him discharge instructions regarding activity, diet and medications and provided him with prescriptions. MMODL / IJN: [id number] /
[2018-12-31 06:19] LABS: Glucose,Whole Blood 119 mg/dL (75-99)
[2018-12-31] MEDS: INSULIN ASPART (NovoLOG) 100 UNIT/ML VIAL SQ SCH ×4 (06:27→20:26)
[2018-12-31] MEDS: BUDESONIDE 1 MG/2 ML NEBU INHALATION SCH ×2 (08:40→20:07)
[2018-12-31] MEDS: IPRATROPIUM-ALBUTEROL 3 ML NEB INHALATION SCH ×4 (08:40→20:08)
[2018-12-31] MEDS: METOPROLOL TARTRATE 25 MG TAB PO SCH ×2 (09:56→20:26)
[2018-12-31] MEDS: NICOTINE 21MG/24HR PATCH TRANSDERM SCH (09:56)
[2018-12-31] MEDS: methylPREDNISolone SOD SUCCI 40 MG/ML 1 ML VIAL IV SCH ×3 (09:56→23:55)
[2018-12-31] MEDS: LISINOPRIL 2.5 MG TAB PO SCH (09:57)
[2018-12-31] MEDS: ASPIRIN 325 MG TAB PO SCH (09:57)
[2018-12-31] MEDS: CLOPIDOGREL 75 MG TAB PO SCH (09:57)
[2018-12-31] MEDS: FAMOTIDINE 20 MG TAB PO SCH (09:57)
--- NOTE | 2018-12-31 10:57 | P.PN ---
Subjective Progress Note Date: 12/31/18 This is a 58-year-old male patient of Dr. Arias with past medical history of COPD, nicotine dependence, history of IV drug abuse, hyperlipidemia history of marijuana abuse, history of alcohol abuse. Patient was initially seen in the emergency center at [facility] which time he p resented with acute shortness of breath with productive cough and phlegm for 1 week along with burning in the chest on and off for the past few months. Initial troponin, d-dimer were negative. TSH 0.844. WBC 14 with hemoglobin 15.0 platelet count 228. Electrolytes were within normal limits, blood sugar 163, alkaline phosphatase 118 otherwise liver function was normal. BUN 11 and creatinine 1. Chest x-ray showed no acute pulmonary process. Patient was admitted for acute hypoxic respiratory failure secondary to COPD exacerbation and acute chest pain with nonspecific ST-T wave changes on EKG. Patient was started on heparin drip. Pain was relieved with morphine and nitro drip and cardiology consult was obtained. Patient subsequently underwent a heart catheterization with Dr. 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 De Luna. This was completed yesterday. Patient is been afebrile, pulse ox 97% on 2 L, blood pressure 115/63, heart rate 88. WBC 19.8, hemoglobin 13.6, electrolytes within normal limits and creatinine 0.72. Blood sugar 111-134. Patient states that his chest pain and burning in his chest are completely gone after stent was placed. He denies any abdominal pain or nausea. He states he is hungry. Patient does complain of shortness of breath and has started coughing up some blood this morning. Solu-Medrol will be decreased to 40 mg every 8 hours. Patient will be transferred to the [facility] floor. 12/31: Patient developed significant shortness of breath last night along with chest pressure. EKG and vital signs were obtained. EKG was a sinus rhythm. He was given a DuoNeb treatment stat and placed on BiPAP and additional dose of steroids. Dr. Hudson was also notified. Patient has been afebrile, heart rate 68, blood pressure this morning 143/96, pulse ox 95% on room air. He is currently on Solu-Medrol 40 every 8 hours which will be continued at same dose. Social work has met with the patient regarding housing issue. In plan for now will be to return to group home. Objective - Vital Signs Vital signs: Vital Signs Temp 98.2 F 12/31/18 08:00 Pulse 68 12/31/18 09:01 Resp 20 12/31/18 08:00 BP 143/96 12/31/18 08:00 Pulse Ox 95 12/31/18 08:00 Intake & Output 12/30/18 12/31/18 12/31/18 18:59 06:59 18:59 Intake Total 660 10 Balance 660 10 Weight 86.1 kg 84.4 kg Intake: IV 10 Invasive Line 2 10 Oral 660 Other: Voiding Method Toilet # Voids 2 1 # Bowel Movements 1 - Exam Review of Systems Constitutional: Reports fatigue, Denies chills, Denies fever, Denies malaise, Denies poor appetite, Denies weakness Cardiovascular: Denies chest pain, Reports dyspnea on exertion, Reports shortness of breath, Denies edema, Denies syncope Respiratory: Reports cough, Reports cough with sputum, Reports dyspnea, Reports hemoptysis, Reports wheezing, Denies excessive sputum, Denies home oxygen Gastrointestinal: Denies abdominal pain, Denies diarrhea, Denies loss of appetite, Denies nausea, Denies vomiting Genitourinary: Denies dysuria, Denies urinary retention Musculoskeletal: Denies muscle weakness, Denies myalgias Integumentary: Denies pruritus, Denies rash, Denies wounds Neurological: Denies change in mentation, Denies confusion, Denies numbness, Denies seizures, Denies weakness Psychiatric: Denies anxiety, Denies depression Endocrine: Denies fatigue, Denies weight change - Constitutional General appearance: cooperative, no acute distress, obese - EENT Eyes: anicteric sclerae, PERRLA, normal appearance ENT: hearing grossly normal on the left ear, hearing is impaired on the right ear. There is significant tenderness to the scalp around the ear, ear auricle itself and anterior lateral neck area. No rash noted. - Neck Neck: no lymphadenopathy, normal ROM, no other, no rigidity, no stridor, no thyromegaly - Respiratory Respiratory: bilateral: Scattered expiratory wheezes negative: diminished, dullness, rales, rhonchi - Cardiovascular Rhythm: regular Heart sounds: normal: S1, S2 Abnormal Heart Sounds: no systolic murmur, no diastolic murmur, no rub, no S3 Gallop, no S4 Gallop, no click, no other - Gastrointestinal General gastrointestinal: normal bowel sounds, soft - Integumentary Integumentary: no rash - Neurologic Neurologic: CNII-XII intact - Musculoskeletal Musculoskeletal: gait normal, strength equal bilaterally - Psychiatric Psychiatric: A&O x's 3, appropriate affect - Labs CBC & Chem 7: 12/30/18 06:39 12/30/18 06:39 Labs: Abnormal Lab Results - Last 24 Hours (Table) 12/30/18 12/30/18 12/30/18 Range/Units 11:50 17:05 19:49 POC Glucose (mg/dL) 111 H 124 H 152 H (75-99) mg/dL 12/31/18 Range/Units 06:18 POC Glucose (mg/dL) 119 H (75-99) mg/dL Microbiology - Last 24 Hours (Table) 12/30/18 08:00 Gram Stain - Preliminary Sputum Sputum Culture - Preliminary Assessment and Plan Plan: 1. Acute hypoxic respiratory failure secondary to acute exacerbation of COPD. continue DuoNeb treatments 4 times daily and albuterol as needed, Pulmicort 1 mg twice daily, ceftriaxone 1 g daily, Solu-Medrol decreased to 40 mg IV every [address] Tristan rey. 2. Acute chest pain secondary to coronary artery disease status post heart catheterization done at [facility] followed by transfer to [facility] for successful stenting of the mid RCA with bare metal stent. Continue aspirin 325 mg daily, Lipitor 80 mg at bedtime, Plavix 75 mg daily, Lopressor 25 mg twice daily. 3. Tobacco use and dependence. Smoking cessation. Nicotine patch. 4. Marijuana use for back pain. 5. Hypertension. Continue lisinopril 2.5 mg daily, Lopressor 6. DVT prophylaxis. 7. GI prophylaxis. Pepcid. Discharge plan: Return to group home in the next 24-48 hours. Impression and plan of care have been directed as dictated by the signing physician. Daysi Nunn nurse practitioner acting as scribe for signing phys jaylaan.
[2018-12-31 17:23] LABS: Glucose,Whole Blood 143 mg/dL (75-99)
[2018-12-31 20:22] LABS: Glucose,Whole Blood 147 mg/dL (75-99)
[2018-12-31] MEDS: ATORVASTATIN 80 MG TAB PO SCH (20:26)
[2019-01-01 06:53] LABS: Glucose,Whole Blood 113 mg/dL (75-99)
[2019-01-01 07:17] LABS: HCT 44.1 % (39.0-53.0); HGB 14.7 gm/dL (13.0-17.5); MCH 30.4 pg (25.0-35.0); MCHC 33.4 g/dL (31.0-37.0); MCV 90.8 fL (80.0-100.0); Mean Platelet Volume 7.2; Platelet Count 254 k/uL (150-450); RBC 4.86 m/uL (4.30-5.90)
[2019-01-01] MEDS: INSULIN ASPART (NovoLOG) 100 UNIT/ML VIAL SQ SCH (07:29)
[2019-01-01] MEDS: IPRATROPIUM-ALBUTEROL 3 ML NEB INHALATION SCH (08:14)
[2019-01-01] MEDS: BUDESONIDE 1 MG/2 ML NEBU INHALATION SCH (08:14)
[2019-01-01 08:16] VITALS: BP 160/72; RESP 17; TEMP 98.6
[2019-01-01] MEDS: methylPREDNISolone SOD SUCCI 40 MG/ML 1 ML VIAL IV SCH (08:19)
[2019-01-01] MEDS: METOPROLOL TARTRATE 25 MG TAB PO SCH (08:20)
[2019-01-01] MEDS: CLOPIDOGREL 75 MG TAB PO SCH (08:20)
[2019-01-01] MEDS: LISINOPRIL 2.5 MG TAB PO SCH (08:20)
[2019-01-01] MEDS: ASPIRIN 325 MG TAB PO SCH (08:20)
[2019-01-01] MEDS: FAMOTIDINE 20 MG TAB PO SCH (08:20)
[2019-01-01] MEDS: NICOTINE 21MG/24HR PATCH TRANSDERM SCH (08:21)
[2019-01-01 08:34] VITALS: PULSE 78
--- NOTE | 2019-01-01 10:38 | P.PN ---
Subjective Progress Note Date: 01/01/19 Principal diagnosis: Hemoptysis and likely related to airway inflammation and anticoagulant Unstable angina Coronary artery disease status post stent right coronary artery Severe COPD Tracheobronchitis 01/01/2019, patient seen eval examined during the rounds labs reviewed med ications reviewed computed tomography scan finding reviewed with the patient patient is being planned for discharge today agree with discharge planning with follow-up in outpatient setting, no active episodes hemoptysis has been noted no recurrent episode of acute shortness of breath has been identified in last 24 hours patient is off of oxygen breathing comfortably patient to see me on outpatient basis This is a 58-year-old male with a long-standing history of smoking and nicotine abuse has a severe COPD came into the hospital with chest pain found to have severe coronary artery disease especially involving the right coronary artery where the stent has been placed, postprocedure patient having episodes of coughing with some makes blood secretions are seen no nikky hemoptysis identified and thought to be related to inflammatory changes in the lung and bronchial mucosa as well as anticoagulants given to him, computed tomography scan of the chest which is been performed reviewed just distal basal subsegmental atelectasis as well as lymphoid no infiltrate or mass wasn't identified Objective - Vital Signs Vital signs: Vital Signs Temp 98.6 F 01/01/19 08:15 Pulse 78 01/01/19 08:34 Resp 17 01/01/19 08:15 BP 160/72 01/01/19 08:15 Pulse Ox 96 01/01/19 08:15 Intake & Output 12/31/18 01/01/19 01/01/19 18:59 06:59 18:59 Intake Total 480 740 Balance 480 740 Weight 84.8 kg Intake: Oral 480 740 Other: Voiding Method Toilet Toilet # Voids 1 1 # Bowel Movements 1 - Exam - Constitutional General appearance: average body habitus, cooperative, disheveled - EENT Eyes: anicteric sclerae, EOMI, PERRLA, normal appearance ENT: normal oropharynx Ears: bilateral: normal - Neck Neck: normal ROM Carotids: bilateral: upstroke normal Thyroid: bilateral: normal size - Respiratory Respiratory: bilateral: CTA, diminished, wheezing (Fine bilateral), negative: dullness, rales, rhonchi - Cardiovascular Heart sounds: normal: S1, S2 - Gastrointestinal General gastrointestinal: normal bowel sounds - Neurologic Neurologic: CNII-XII intact - Musculoskeletal Musculoskeletal: gait normal, generalized weakness, strength equal bilaterally - Psychiatric Psychiatric: A&O x's 3, appropriate affect, intact judgment & insight - Labs CBC & Chem 7: 01/01/19 06:27 12/30/18 06:39 Labs: Abnormal Lab Results - Last 24 Hours (Table) 12/31/18 12/31/18 01/01/19 Range/Units 17:08 20:04 06:27 WBC 15.0 H (3.8-10.6) k/uL POC Glucose (mg/dL) 143 H 147 H (75-99) mg/dL 01/01/19 Range/Units 06:50 WBC (3.8-10.6) k/uL POC Glucose (mg/dL) 113 H (75-99) mg/dL Microbiology - Last 24 Hours (Table) 12/30/18 08:00 Gram Stain - Preliminary Sputum Sputum Culture - Preliminary Assessment and Plan Assessment: Hemoptysis and likely related to airway inflammation and anticoagulant improved and resolved now Unstable angina Coronary artery disease status post stent right coronary artery Severe COPD Tracheobronchitis Plan: If stable can be discharge follow-up in outpatient basis Time with Patient: Greater than 30
--- NOTE | 2019-01-01 11:21 | P.DS ---
Providers Date of admission: 12/29/18 16:42 Expected date of discharge: 01/01/19 Attending physician: Janessa Franco MD Consults: 12/29/18 14:00 Consult Physician Routine Consulting Provider: [facility] Consult Reason/Comments: Post Interventional patient Do you want consulting provider notified?: Already Contacted 12/29/18 16:48 Consult Physician Urgent Consulting Provider: Janessa Franco Consult Reason/Comments: Admit to Dr Franco as primary physician Do you want consulting provider notified?: Already Contacted 12/30/18 08:30 Consult Physician Routine Consulting Provider: Gabriel Hudson Consult Reason/Comments: Coughing up blood tinged sputum Do you want consulting provider notified?: Yes Primary care physician: Janessa Franco MD Hospital Course: This is a 58-year-old male patient of Dr. Arias with past medical history of COPD, nicotine dependence, history of IV drug abuse, hyperlipidemia history of marijuana abuse, history of alcohol abuse. Patient was initially seen in the emergency center at [facility] which time he presented with acute shortness of breath with productive cough and phlegm for 1 week along with burning in the chest on and off for the past few months. Initial troponin, d-dimer were negative. TSH 0.844. WBC 14 with hemoglobin 15.0 platelet count 228. Electrolytes were within normal limits, blood sugar 163, alkaline phosphatase 118 otherwise liver function was normal. BUN 11 and creatinine 1. Chest x-ray showed no acute pulmonary process. Patient was admitted for acute hypoxic respiratory failure secondary to COPD exacerbation and acute chest pain with nonspecific ST-T wave changes on EKG. Patient was started on heparin drip. Pain was relieved with morphine and nitro drip and cardiology consult was obtained. Patient subsequently underwent a heart catheterization with Dr. De Luna the found critical disease involving the mid RCA and intermediate to severe disease involving the mid LAD and recommended [employer]IST of the RCA and patient was transferred to [facility] and underwent successful stenting of the mid RCA with a bare metal stent with Dr. De Luna. This was completed yesterday. Patient is been afebrile, pulse ox 97% on 2 L, blood pressure 115/63, heart rate 88. WBC 19.8, hemoglobin 13.6, electrolytes within normal limits and creatinine 0.72. Blood sugar 111-134. Patient states that his chest pain and burning in his chest are completely gone after stent was placed. He denies any abdominal pain or nausea. He states he is hungry. Patient does complain of shortness of breath and has started coughing up some blood this morning. Solu-Medrol will be decreased to 40 mg every 8 hours. Patient will be transferred to the [facility] floor. 12/31: Patient developed significant shortness of breath last night along with chest pressure. EKG and vital signs were obtained. EKG was a sinus rhythm. He was given a DuoNeb treatment stat and placed on BiPAP and additional dose of steroids. Dr. Hudson was also notified. Patient has been afebrile, heart rate 68, blood pressure this morning 143/96, pulse ox 95% on room air. He is currently on Solu-Medrol 40 every 8 hours which will be continued at same dose. Social work has met with the patient regarding housing issue. In plan for now will be to return to [facility]. 01/01: Patient states that he is feeling much better today. He states his breathing is almost back to his baseline. Sputum culture is currently in process. Pulse ox is 96% on room air. Patient does not require home oxygen and does not have home oxygen. He is planning to go to [facility] at the time of discharge. Patient will be discharged home today in stable condition. Discharge diagnoses: 1. Acute hypoxic respiratory failure secondary to acute exacerbation of COPD. 2. Acute chest pain secondary to coronary artery disease status post heart catheterization done at [facility] followed by transfer to [facility] for successful stenting of the mid RCA with bare metal stent. 3. Tobacco use and dependence. Smoking cessation. 4. Marijuana use for back pain. 5. Hypertension. Discharge plan: Return to [facility] Impression and plan of care have been directed as dictated by the signing physician. Daysi Nunn nurse practitioner acting as scribe for signing physician. Patient Condition at Discharge: Good Plan - Discharge Summary Discharge Rx Participant: No New Discharge Prescriptions: New Aspirin 81 mg PO DAILY #90 chewable Atorvastatin [Lipitor] 80 mg PO DAILY #90 tab Metoprolol Tartrate [Lopressor] 25 mg PO BID #180 tablet Clopidogrel Bisulfate [Plavix] 75 mg PO DAILY #90 tab Famotidine [Pepcid] 20 mg PO DAILY #30 tab Lisinopril [Zestril] 2.5 mg PO DAILY #30 tab predniSONE 0 mg PO DIRECTED #63 tab Continue Albuterol Sulfate [Ventolin HFA] 2 puff INHALATION RT-Q6H PRN PRN Reason: Shortness Of Breath Budesonide [Pulmicort] 0.5 mg INHALATION RT-BID Arformoterol Tartrate [Brovana] 15 mcg INHALATION RT-BID Albuterol Nebulized [Ventolin Nebulized] 2.5 mg INHALATION RT-Q4H PRN PRN Reason: Shortness Of Breath Ipratropium Nebulized [Atrovent Nebulized 0.2 MG/ML] 0.5 mg INHALATION RT-BID Ciprofloxacin-Dexameth [Ciprodex Otic Susp] 1 drops BOTH EARS TID PRN PRN Reason: Itching Discharge Medication List Albuterol Sulfate [Ventolin HFA] 2 puff INHALATION RT-Q6H PRN 09/07/14 [History] Albuterol Nebulized [Ventolin Nebulized] 2.5 mg INHALATION RT-Q4H PRN 03/03/16 [History] Arformoterol Tartrate [Brovana] 15 mcg INHALATION RT-BID 03/03/16 [History] Budesonide [Pulmicort] 0.5 mg INHALATION RT-BID 03/03/16 [History] Ipratropium Nebulized [Atrovent Nebulized 0.2 MG/ML] 0.5 mg INHALATION RT-BID 03/23/17 [History] Ciprofloxacin-Dexameth [Ciprodex Otic Susp] 1 drops BOTH EARS TID PRN 12/29/18 [History] Aspirin 81 mg PO DAILY #90 chewable 12/30/18 [Rx] Atorvastatin [Lipitor] 80 mg PO DAILY #90 tab 12/30/18 [Rx] Clopidogrel Bisulfate [Plavix] 75 mg PO DAILY #90 tab 12/30/18 [Rx] Metoprolol Tartrate [Lopressor] 25 mg PO BID #180 tablet 12/30/18 [Rx] Famotidine [Pepcid] 20 mg PO DAILY #30 tab 01/01/19 [Rx] Lisinopril [Zestril] 2.5 mg PO DAILY #30 tab 01/01/19 [Rx] predniSONE 0 mg PO DIRECTED #63 tab 01/01/19 [Rx] Follow up Appointment(s)/Referral(s): Idris De Luna MD [STAFF PHYSICIAN] - 01/06/19 1:45 pm (Wednesday) Bear Arias MD [REFERRING] - 1 Week (Office closed at time of discharge please call WednesdayJanuary 02 to set up a follow up appointment) Gabriel Hudson MD [STAFF PHYSICIAN] - 1 Week (Office closed at time of discharge please call WednesdayJanuary 02 to set up a follow up appointment) Patient Instructions/Handouts: *[facility] - After Heart Catheterization - Director Sterile Processing Instructions, After Radial Heart Catheterization (GEN) Discharge Disposition: HOME SELF-CARE
== END 2019-01-01 10:09 | disposition home or self-care (01) | DRG 248 ==
LOC: 3SCARD 16:42 → 4SSUR 12-31 11:42
PROVIDERS: ADMIT Internal Medicine; ATTEND Internal Medicine
PROC: 02703DZ Dilation of Coronary Artery, One Artery with Intraluminal Device, Percutaneous Approach (ICD-10-PCS; principal; 2018-12-29 13:20)
PROC: 5A09357 Assistance with Respiratory Ventilation, Less than 24 Consecutive Hours, Continuous Positive Airway Pressure (ICD-10-PCS; 2018-12-31)
DX: I25.110 Atherosclerotic heart disease of native coronary artery with unstable angina pectoris (principal); J96.01 Acute respiratory failure with hypoxia; J44.1 Chronic obstructive pulmonary disease with (acute) exacerbation; R04.2 Hemoptysis; E78.5 Hyperlipidemia, unspecified; Z71.6 Tobacco abuse counseling; F17.210 Nicotine dependence, cigarettes, uncomplicated; I10 Essential (primary) hypertension; M13.0 Polyarthritis, unspecified; Z59.9 Problem related to housing and economic circumstances, unspecified; Z79.02 Long term (current) use of antithrombotics/antiplatelets; Z79.82 Long term (current) use of aspirin; Z79.899 Other long term (current) drug therapy; Z80.1 Family history of malignant neoplasm of trachea, bronchus and lung; Z82.49 Family history of ischemic heart disease and other diseases of the circulatory system; Z83.3 Family history of diabetes mellitus; Z88.1 Allergy status to other antibiotic agents; F11.11 Opioid abuse, in remission; F10.11 Alcohol abuse, in remission; F15.11 Other stimulant abuse, in remission; F14.11 Cocaine abuse, in remission; Z96.653 Presence of artificial knee joint, bilateral; Z59.0 Homelessness; M54.9 Dorsalgia, unspecified; H91.91 Unspecified hearing loss, right ear; T45.515A Adverse effect of anticoagulants, initial encounter
CPT/HCPCS: 71250; 80048; 84145; 85027; 85379; 86140; 87070; 87205; 92928; 94640; 94660; 94760

== ENCOUNTER 2019-01-01 22:07 | Observation (INO) | payer MEDICARE, OTHER ==
--- NOTE | 2019-01-01 22:29 | ED ---
Chest Pain HPI - General Chief Complaint: Chest Pain Stated Complaint: chest pain Time Seen by Provider: 01/01/19 22:22 Source: patient Mode of arrival: ambulatory Limitations: no limitations - History of Present Illness Initial Comments: This patient is a 58-year-old man who presents with complaint of having upper chest tightness has been going on all day. He also is having a nonproductive cough and some mild wheezing. The patient states that he had been discharged from the hospital today. He had been admitted into have heart catheterization as result of chest pain. MD Complaint: chest pain Onset/Timin -: days(s) Onset: during rest Pain Location: left chest, right chest Pain Radiation: none Severity: moderate Quality: tightness Consistency: constant Improves With: nothing Worsens With: nothing Other Symptoms: cough Treatments Prior to Arrival: none - Related Data Home Medications Medication Instructions Recorded Confirmed Albuterol Sulfate [Ventolin HFA] 2 puff INHALATION RT-Q6H PRN 09/07/14 01/01/19 Albuterol Nebulized [Ventolin 2.5 mg INHALATION RT-Q4H PRN 03/03/16 01/01/19 Nebulized] Arformoterol Tartrate [Brovana] 15 mcg INHALATION RT-BID 03/03/16 01/01/19 Budesonide [Pulmicort] 0.5 mg INHALATION RT-BID 03/03/16 01/01/19 Ipratropium Nebulized [Atrovent 0.5 mg INHALATION RT-BID 03/23/17 01/01/19 Nebulized 0.2 MG/ML] Ciprofloxacin-Dexameth [Ciprodex 1 drops BOTH EARS TID PRN 12/29/18 01/01/19 Otic Susp] predniSONE See Taper PO DIRECTED 01/01/19 01/01/19 Previous Rx's Medication Instructions Recorded Aspirin 81 mg PO DAILY #90 chewable 12/30/18 Atorvastatin [Lipitor] 80 mg PO DAILY #90 tab 12/30/18 Clopidogrel Bisulfate [Plavix] 75 mg PO DAILY #90 tab 12/30/18 Metoprolol Tartrate [Lopressor] 25 mg PO BID #180 tablet 12/30/18 Famotidine [Pepcid] 20 mg PO DAILY #30 tab 01/01/19 Lisinopril [Zestril] 2.5 mg PO DAILY #30 tab 01/01/19 Allergies Allergy/AdvReac Type Severity Reaction Status Date / Time levofloxacin [From Levaquin] AdvReac Nausea & Verified 01/01/19 22:38 Vomiting & Diarrhea Review of Systems ROS Statement: Those systems with pertinent positive or pertinent negative responses have been documented in the HPI. ROS Other: All systems not noted in ROS Statement are negative. Constitutional: Denies: fever, chills Respiratory: Reports: as per HPI, cough, dyspnea, wheezes. Denies: hemoptysis Cardiovascular: Reports: as per HPI, chest pain. Denies: palpitations, dyspnea on exertion, orthopnea, edema, syncope Gastrointestinal: Denies: abdominal pain, nausea, vomiting Genitourinary: Denies: dysuria, hematuria Musculoskeletal: Denies: back pain Skin: Denies: rash Neurological: Reports: headache. Denies: weakness, numbness EKG Findings - EKG Results: EKG: interpreted by MONY HORNE, sinus rhythm (Rate 70 bpm), normal axis, normal QRS, normal ST/T, no acute changes - NE, Pacemaker, Normal: Normal tracing: normal tracing Past Medical History Past Medical History: COPD, Myocardial Infarction (NE) Additional Past Medical History / Comment(s): Pt states he has hx of 3 respirato ry arrests and was vented, generalized arthritis, History of Any Multi-Drug Resistant Organisms: None Reported Past Surgical History: Adenoidectomy, Heart Catheterization With Stent, Hernia Repair, Joint Replacement, Orthopedic Surgery, Tonsillectomy Additional Past Surgical History / Comment(s): R inguinal hernia repair, L rotator cuff repair, bialteral total knee arthroplasties, R shoulder spur removal, teeth extracted, colonoscopy-normal. third hernia repair, left side Past Anesthesia/Blood Transfusion Reactions: No Reported Reaction Past Psychological History: No Psychological Hx Reported Smoking Status: Former smoker Past Alcohol Use History: None Reported Past Drug Use History: Marijuana - Past Family History Father Family Medical History: Cancer Additional Family Medical History / Comment(s): Father of lung cancer at the age of 68. He was a smoker. Mother Family Medical History: Diabetes Mellitus, Hypertension Additional Family Medical History / Comment(s): Mother is 78yrs old. General Exam Limitations: no limitations General appearance: alert, in no apparent distress Head exam: Present: atraumatic, normocephalic Eye exam: Present: normal appearance. Absent: scleral icterus, conjunctival injection ENT exam: Present: normal oropharynx Neck exam: Present: normal inspection Respiratory exam: Present: wheezes. Absent: respiratory distress, rales, rhonchi, stridor, accessory muscle use, decreased breath sounds Cardiovascular Exam: Present: regular rate, normal rhythm, normal heart sounds. Absent: systolic murmur, diastolic murmur, rubs, gallop GI/Abdominal exam: Present: soft. Absent: distended, tenderness, guarding, rebound, rigid, mass Extremities exam: Present: normal inspection, normal capillary refill. Absent: pedal edema, calf tenderness Back exam: Present: normal inspection Neurological exam: Present: alert Skin exam: Present: warm, dry, intact, normal color. Absent: rash Course Vital Signs 01/01/19 01/01/19 01/01/19 22:07 22:42 23:38 Temperature 98 F Pulse Rate 73 76 61 Respiratory 26 H 18 Rate Blood Pressure 141/86 107/84 O2 Sat by Pulse 98 97 Oximetry 01/01/19 01/02/19 01/02/19 23:45 00:48 01:06 Temperature Pulse Rate 66 64 74 Respiratory 18 Rate Blood Pressure 117/70 O2 Sat by Pulse 95 Oximetry 01/02/19 01/02/19 01/02/19 01:26 01:54 02:04 Temperature Pulse Rate 80 72 74 Respiratory 22 Rate Blood Pressure 156/101 O2 Sat by Pulse 95 Oximetry Disposition Clinical Impression: Acute exacerbation of chronic obstructive airways disease Disposition: ADMITTED IP TO THIS HOSP Condition: Fair Instructions (If sedation given, give patient instructions): Chest Pain (ED) Is patient prescribed a controlled substance at d/c from ED?: No Referrals: Janessa Franco MD [Medical Doctor] - 1-2 days
[2019-01-01] MEDS ORDERED: IPRATROPIUM-ALBUTEROL 3 ML NEB INHALATION STA (23:06)
--- NOTE | 2019-01-01 23:12 | XR ---
EXAMINATION TYPE: XR chest 2V DATE OF EXAM: 01/01/2019 COMPARISON: 03/23/2017 HISTORY: Chest pain TECHNIQUE: Frontal and lateral views of the chest are obtained. FINDINGS: Heart and mediastinum are normal. Lungs are clear. Diaphragm is normal. There are chest le ads. Bony thorax is intact. IMPRESSION: Normal chest. No change.
[2019-01-01 23:18] LABS: Basophils # (A) 0.1 k/uL (0-0.2); Basophils % (A) 1 %; Eosinophils % (A) 0 %; HCT 44.8 % (39.0-53.0); HGB 15.5 gm/dL (13.0-17.5); Lymphocytes # (A) 4.1 k/uL (1.0-4.8); Lymphocytes % (A) 22 %; MCH 30.7 pg (25.0-35.0); MCHC 34.7 g/dL (31.0-37.0); MCV 88.3 fL (80.0-100.0); Mean Platelet Volume 7.1; Monocytes # (A) 1.1 k/uL (0-1.0); Monocytes % (A) 6 %; Neutrophils # (A) 13.3 k/uL (1.3-7.7); Neutrophils % (A) 70 %; Platelet Count 261 k/uL (150-450); RBC 5.07 m/uL (4.30-5.90); RDW 13.1 % (11.5-15.5); WBC 19.1 k/uL (3.8-10.6)
[2019-01-01 23:36] LABS: INR 0.9 (<1.2); Partial Thromboplastin Time 22.5 sec (22.0-30.0); Prothrombin Time 9.9 sec (9.0-12.0)
[2019-01-01 23:37] LABS: ALT 24 U/L (21-72); AST 17 U/L (17-59); African American GFR (CKD) >90 (>60 ml/min/1.73 sqM); Albumin 4.2 g/dL (3.5-5.0); Alkaline Phosphatase 108 U/L (38-126); Anion Gap 10 mmol/L; Blood Urea Nitrogen 24 mg/dL (9-20); Calcium 9.6 mg/dL (8.4-10.2); Carbon Dioxide 24 mmol/L (22-30); Chloride 104 mmol/L (98-107); Glucose 86 mg/dL (74-99); Magnesium 2.2 mg/dL (1.6-2.3); Potassium 4.5 mmol/L (3.5-5.1); Sodium 138 mmol/L (137-145); Total Bilirubin 0.4 mg/dL (0.2-1.3); Total Protein 7.1 g/dL (6.3-8.2)
[2019-01-02] MEDS ORDERED: ALBUTEROL NEBULIZED 2.5 MG/3 ML INHALATION STA ×2 (00:27→01:27)
[2019-01-02] MEDS ORDERED: MORPHINE SULFATE 4 MG/ML SYRINGE IV STA (01:20)
[2019-01-02 03:23] VITALS: RESP 18
[2019-01-02] MEDS ORDERED: IPRATROPIUM-ALBUTEROL 3 ML NEB INHALATION PRN (03:23)
[2019-01-02 06:59] LABS: Glucose,Whole Blood 96 mg/dL (75-99)
[2019-01-02] MEDS: IPRATROPIUM-ALBUTEROL 3 ML NEB INHALATION SCH ×2 (07:43→11:07)
[2019-01-02] MEDS ORDERED: BUDESONIDE 0.5 MG/2 ML NEBU INHALATION SCH ×2 (08:00→20:00)
[2019-01-02] MEDS ORDERED: ALBUTEROL NEBULIZED 2.5 MG/3 ML INHALATION SCH (08:00)
[2019-01-02] MEDS ORDERED: predniSONE 20 MG TAB PO SCH (09:00)
[2019-01-02 09:20] VITALS: BP 103/65; PULSE 85; TEMP 98.8
[2019-01-02] MEDS ORDERED: CIPROFLOXACIN-DEXAMETH 0.3-0.1% DROPS 7.5 ML BTL BOTH EARS PRN (10:54)
[2019-01-02] MEDS ORDERED: ALBUTEROL NEBULIZED 2.5 MG/3 ML INHALATION PRN (10:54)
[2019-01-02] MEDS ORDERED: ALBUTEROL INHALER 60 PUFF/8 GM INHALER INHALATION PRN (10:54)
[2019-01-02] MEDS ORDERED: ASPIRIN 81 MG PO SCH (11:00)
[2019-01-02] MEDS ORDERED: CLOPIDOGREL 75 MG TAB PO SCH (11:00)
[2019-01-02] MEDS ORDERED: LISINOPRIL 2.5 MG TAB PO SCH (11:00)
[2019-01-02] MEDS ORDERED: ATORVASTATIN 80 MG TAB PO SCH (11:00)
[2019-01-02] MEDS ORDERED: METOPROLOL TARTRATE 25 MG TAB PO SCH (11:00)
[2019-01-02] MEDS ORDERED: FAMOTIDINE 20 MG TAB PO SCH (11:00)
--- NOTE | 2019-01-02 12:19 | P.HPIM ---
History of Present Illness H&P Date: 01/02/19 HISTORY AND PHYSICAL AND DISCHARGE SUMMARY: This is a 58-year-old male patient of Dr. Arias with past medical history of COPD, nicotine dependence, history of IV drug abuse, hyperlipidemia history of marijuana abuse, history of alcohol abuse. [place] [facility] [place] secondary to COPD exacerbation and acute chest pain with nonspecific ST-T wave changes on EKG. Patient underwent a heart catheterization with Dr. De Luna the found critical disease involving the mid RCA and intermediate to severe disease involving the mid LAD and recommended NATURALIST of the RCA and patie nt was transferred to [facility] and underwent successful stenting of the mid RCA with a bare metal stent with Dr. De Luna. Patient was kept in the hospital until yesterday due to acute exacerbation of COPD and was discharged yesterday afternoon. Patient states that he developed some shortness of breath, chest pressure and came back to the emergency center for evaluation. He was afebrile, heart rate 73, respiratory rate 26, blood pressure 141/86, pulse ox 98% on room air. Patient was resumed on his home medications and placed in the observation unit for monitoring. At the time of this evaluation, shortness of breath is improved, as well as chest pressure. Pulse ox is 99% on 2 L. Lungs are clear to auscultation. Patient will be discharged home today with planned follow-up with his PCP and Dr. Hudson. Review of Systems Constitutional: Denies fatigue, Denies chills, Denies fever, Denies malaise, Denies poor appetite, Denies weakness Cardiovascular: Denies chest pain, Reports dyspnea on exertion, Reports shortness of breath, Denies edema, Denies syncope Respiratory: denies cough, denies cough with sputum, Reports dyspnea, denies hemoptysis, denies wheezing, Denies excessive sputum, Denies home oxygen Gastrointestinal: Denies abdominal pain, Denies diarrhea, Denies loss of appetite, Denies nausea, Denies vomiting Genitourinary: Denies dysuria, Denies urinary retention Musculoskeletal: Denies muscle weakness, Denies myalgias Integumentary: Denies pruritus, Denies rash, Denies wounds Neurological: Denies change in mentation, Denies confusion, Denies numbness, Denies seizures, Denies weakness Psychiatric: Denies anxiety, Denies depression Endocrine: Denies fatigue, Denies weight change Past Medical History Past Medical History: COPD, Myocardial Infarction ([place]) Additional Past Medical History / Comment(s): Pt states he has hx of 3 respiratory arrests and was vented, generalized arthritis, Last Myocardial Infarction Date:: History of Any Multi-Drug Resistant Organisms: None Reported Past Surgical History: Adenoidectomy, Heart Catheterization With Stent, Hernia Repair, Joint Replacement, Orthopedic Surgery, Tonsillectomy Additional Past Surgical History / Comment(s): R inguinal hernia repair, L rotator cuff repair, bialteral total knee arthroplasties, R shoulder spur removal, teeth extracted, colonoscopy-normal. third hernia repair, left side Past Anesthesia/Blood Transfusion Reactions: No Reported Reaction Date of Last Stent Placement:: 2018 Smoking Status: Former smoker - Past Family History Father Family Medical History: Cancer Additional Family Medical History / Comment(s): Father of lung cancer at the age of 68. He was a smoker. Mother Family Medical History: Diabetes Mellitus, Hypertension Additional Family Medical History / Comment(s): Mother is 78yrs old. Medications and Allergies Home Medications Medication Instructions Recorded Confirmed Type Albuterol Sulfate [Ventolin HFA] 2 puff INHALATION RT-Q6H PRN 09/07/14 01/02/19 History Albuterol Nebulized [Ventolin 2.5 mg INHALATION RT-Q4H PRN 03/03/16 01/02/19 History Nebulized] Arformoterol Tartrate [Brovana] 15 mcg INHALATION RT-BID 03/03/16 01/02/19 History Budesonide [Pulmicort] 0.5 mg INHALATION RT-BID 03/03/16 01/02/19 History Ipratropium Nebulized [Atrovent 0.5 mg INHALATION RT-BID 03/23/17 01/02/19 History Nebulized 0.2 MG/ML] Ciprofloxacin-Dexameth [Ciprodex 1 drops BOTH EARS TID PRN 12/29/18 01/02/19 History Otic Susp] Aspirin 81 mg PO DAILY #90 chewable 12/30/18 01/02/19 Rx Atorvastatin [Lipitor] 80 mg PO DAILY #90 tab 12/30/18 01/02/19 Rx Clopidogrel Bisulfate [Plavix] 75 mg PO DAILY #90 tab 12/30/18 01/02/19 Rx Metoprolol Tartrate [Lopressor] 25 mg PO BID #180 tablet 12/30/18 01/02/19 Rx Famotidine [Pepcid] 20 mg PO DAILY #30 tab 01/01/19 01/02/19 Rx Lisinopril [Zestril] 2.5 mg PO DAILY #30 tab 01/01/19 01/02/19 Rx predniSONE See Taper PO DIRECTED 01/01/19 01/02/19 History Allergies Allergy/AdvReac Type Severity Reaction Status Date / Time levofloxacin [From Levaquin] AdvReac Nausea & Verified 01/02/19 03:23 Vomiting & Diarrhea Physical Exam Vitals: Vital Signs Temp Pulse Pulse Resp BP BP Pulse Ox 01/02/19 08:00 98.8 F 85 18 103/65 99 01/02/19 07:57 72 01/02/19 07:42 68 98 01/02/19 03:48 18 01/02/19 03:21 97.9 F 71 18 124/77 98 01/02/19 03:08 97.6 F 65 20 120/73 98 01/02/19 02:04 74 01/02/19 01:54 72 01/02/19 01:26 80 22 156/101 95 01/02/19 01:06 74 18 117/70 95 01/02/19 00:48 64 01/01/19 23:45 66 01/01/19 23:38 61 01/01/19 22:42 76 18 107/84 97 01/01/19 22:07 98 F 73 26 H 141/86 98 Intake and Output 01/01/19 01/02/19 01/02/19 22:59 06:59 14:59 Other: Voiding Method Toilet # Voids 1 Weight 84.822 kg - Constitutional General appearance: cooperative, no acute distress, obese - EENT Eyes: anicteric sclerae, PERRLA, normal appearance ENT: hearing grossly normal on the left ear, hearing is impaired on the right ear. - Neck Neck: no lymphadenopathy, normal ROM, no other, no rigidity, no stridor, no thyromegaly - Respiratory Respiratory: bilateral: CTA, negative: diminished, dullness, rales, rhonchi - Cardiovascular Rhythm: regular Heart sounds: normal: S1, S2 Abnormal Heart Sounds: no systolic murmur, no diastolic murmur, no rub, no S3 Gallop, no S4 Gallop, no click, no other - Gastrointestinal General gastrointestinal: normal bowel sounds, soft - Integumentary Integumentary: no rash - Neurologic Neurologic: CNII-XII intact - Musculoskeletal Musculoskeletal: gait normal, strength equal bilaterally - Psychiatric Psychiatric: A&O x's 3, appropriate affect Results CBC & Chem 7: 01/01/19 22:20 01/01/19 22:20 Labs: Abnormal Lab Results - Last 24 Hours (Table) 01/01/19 01/01/19 Range/Units 22:20 22:20 WBC 19.1 H (3.8-10.6) k/uL Neutrophils # 13.3 H (1.3-7.7) k/uL Monocytes # 1.1 H (0-1.0) k/uL BUN 24 H (9-20) mg/dL Thrombosis Risk Factor Assmnt - Choose All That Apply Each Factor Represents 1 point: Age 41-60 years Thrombosis Risk Factor Assessment Total Risk Factor Score: 1 Thrombosis Risk Factor Assessment Level: Low Risk Assessment and Plan Plan: 1. Acute exacerbation of COPD. continue DuoNeb treatments 4 times daily and albuterol as needed, Pulmicort 1 mg twice daily, cipro, oral prednisone. 2. Chest pain secondary to coronary artery disease status [place] [facility] [place] [facility] [place] for successful stenting of the mid RCA with bare metal stent. Continue aspirin 81 mg daily, Lipitor 80 mg at bedtime, Plavix 75 mg daily, Lopressor 25 mg twice daily. 3. Tobacco use and dependence. Smoking cessation. Patient states he stopped smoking. 4. Marijuana use for back pain. 5. Hypertension. Continue lisinopril 2.5 mg daily, Lopressor Patient placed as observation status Discharge plan: Return home. Impression and plan of care have been directed as dictated by the signing physician. Daysi Nunn nurse practitioner acting as scribe for signing physician.
[2019-01-02] MEDS ORDERED: IPRATROPIUM 0.5 MG/2.5 ML NEBU INHALATION SCH (20:00)
[2019-01-02] MEDS ORDERED: FORMOTEROL FUMARATE 20 MCG/2 ML NEBU INHALATION SCH (20:00)
[2019-01-03] MEDS ORDERED: predniSONE 10 MG TAB PO SCH (09:00)
== END 2019-01-02 11:39 | disposition home or self-care (01) ==
LOC: EC 22:07 → 1SOBS 01-02 02:43
PROVIDERS: ADMIT Internal Medicine; ATTEND Internal Medicine
DX: J44.1 Chronic obstructive pulmonary disease with (acute) exacerbation (principal); I25.10 Atherosclerotic heart disease of native coronary artery without angina pectoris; Z95.5 Presence of coronary angioplasty implant and graft; F17.200 Nicotine dependence, unspecified, uncomplicated; M54.9 Dorsalgia, unspecified; I10 Essential (primary) hypertension; F12.90 Cannabis use, unspecified, uncomplicated; M13.0 Polyarthritis, unspecified; E66.9 Obesity, unspecified; Z68.28 Body mass index [BMI] 28.0-28.9, adult; E78.5 Hyperlipidemia, unspecified; Z79.899 Other long term (current) drug therapy; Z79.82 Long term (current) use of aspirin; Z79.02 Long term (current) use of antithrombotics/antiplatelets; Z79.51 Long term (current) use of inhaled steroids; Z79.2 Long term (current) use of antibiotics; Z79.52 Long term (current) use of systemic steroids; Z88.1 Allergy status to other antibiotic agents; I25.2 Old myocardial infarction; Z80.1 Family history of malignant neoplasm of trachea, bronchus and lung; Z83.3 Family history of diabetes mellitus; Z82.49 Family history of ischemic heart disease and other diseases of the circulatory system
CPT/HCPCS: 96374; 99285; 36415; 94640 ×3; 94760; 93005; 80053; 83735; 84484 ×2; 85025; 85610; 85730; 71046; G0378; J2270; J7512

== ENCOUNTER 2019-01-06 20:22 | Emergency (ER) | payer MEDICARE, OTHER ==
[2019-01-06] MEDS ORDERED: SODIUM CHLORIDE 0.9% 500 ML 500 ML IV STA (20:31)
[2019-01-06 21:25] LABS: Basophils # (A) 0.1 k/uL (0-0.2); Basophils % (A) 1 %; Eosinophils # (A) 0.1 k/uL (0-0.7); Eosinophils % (A) 1 %; HCT 40.2 % (39.0-53.0); HGB 13.8 gm/dL (13.0-17.5); Lymphocytes # (A) 3.9 k/uL (1.0-4.8); Lymphocytes % (A) 24 %; MCH 30.2 pg (25.0-35.0); MCHC 34.3 g/dL (31.0-37.0); MCV 87.9 fL (80.0-100.0); Monocytes # (A) 0.9 k/uL (0-1.0); Monocytes % (A) 6 %; Neutrophils # (A) 10.9 k/uL (1.3-7.7); Neutrophils % (A) 67 %; Platelet Count 190 k/uL (150-450); RBC 4.57 m/uL (4.30-5.90); RDW 12.7 % (11.5-15.5); WBC 16.3 k/uL (3.8-10.6)
[2019-01-06] MEDS ORDERED: DIAZEPAM 5 MG/ML 2 ML INJ IVP STA (21:26)
[2019-01-06 21:30] LABS: ALT 33 U/L (21-72); AST 17 U/L (17-59); African American GFR (CKD) >90 (>60 ml/min/1.73 sqM); Albumin 3.5 g/dL (3.5-5.0); Alkaline Phosphatase 129 U/L (38-126); Anion Gap 10 mmol/L; Blood Urea Nitrogen 22 mg/dL (9-20); Calcium 8.9 mg/dL (8.4-10.2); Carbon Dioxide 25 mmol/L (22-30); Chloride 101 mmol/L (98-107); Glucose 116 mg/dL (74-99); INR 0.9 (<1.2); Partial Thromboplastin Time 22.8 sec (22.0-30.0); Potassium 4.1 mmol/L (3.5-5.1); Prothrombin Time 9.8 sec (9.0-12.0); Sodium 136 mmol/L (137-145); Total Bilirubin 0.6 mg/dL (0.2-1.3); Total Protein 6.1 g/dL (6.3-8.2)
--- NOTE | 2019-01-06 21:30 | XR ---
EXAMINATION TYPE: XR chest 2V DATE OF EXAM: 01/06/2019 COMPARISON: 01/01/2019 HISTORY: Cough TECHNIQUE: Frontal and lateral views of the chest are obtained. FINDINGS: Heart and mediastinum are normal. Lungs are clear. Diaphragm is normal. Bony thorax is int act. IMPRESSION: Normal chest. No change.
--- NOTE | 2019-01-06 21:36 | ED ---
Dizziness HPI - General Chief Complaint: Dizziness Stated Complaint: Hypotension, light headed Time Seen by Provider: 01/06/19 20:30 Source: patient Mode of arrival: ambulatory Limitations: no limitations - History of Present Illness Initial Comments: The patient is a 58-year-old male with past medical history of coronary disease who was sent in from his cardiology office. Patient recently had a stent placed on Wednesday. 1 stent was placed in the RCA for 99% occlusion. Patient was placed on several new medications. States that he's been feeling well up until today. He went to his cardiology office. They told him that his blood pressure was low. He states he was having vertiginous symptoms. He feels as if he has been drinking and the room won't stop moving. Denies that the sensation gets better with positional changes. He also reports to feeling presyncopal. Denies any headaches or visual changes. No tinnitus. Denies photophobia. No neck pain or stiffness. No nausea or vomiting. He has had a good appetite. Denies any chest pain or shortness of breath. No abdominal pain. Denies changes in his bowel or bladder habits. No weakness in his extremities. Denies unilateral tingling or numbness. Blunt head trauma. No chiropractic manipulations of the neck. There are no other alleviating, precipitating or modifying factors - Related Data Home Medications Medication Instructions Recorded Confirmed Albuterol Sulfate [Ventolin HFA] 2 puff INHALATION RT-Q6H PRN 09/07/14 01/06/19 Albuterol Nebulized [Ventolin 2.5 mg INHALATION RT-Q4H PRN 03/03/16 01/06/19 Nebulized] Arformoterol Tartrate [Brovana] 15 mcg INHALATION RT-BID 03/03/16 01/06/19 Budesonide [Pulmicort] 0.5 mg INHALATION RT-BID 03/03/16 01/06/19 Ipratropium Nebulized [Atrovent 0.5 mg INHALATION RT-BID 03/23/17 01/06/19 Nebulized 0.2 MG/ML] predniSONE See Taper PO DIRECTED 01/01/19 01/06/19 Aspirin 81 mg PO HS 01/06/19 01/06/19 Atorvastatin [Lipitor] 80 mg PO HS 01/06/19 01/06/19 Previous Rx's Medication Instructions Recorded Clopidogrel Bisulfate [Plavix] 75 mg PO DAILY #90 tab 12/30/18 Metoprolol Tartrate [Lopressor] 25 mg PO BID #180 tablet 12/30/18 Famotidine [Pepcid] 20 mg PO DAILY #30 tab 01/01/19 Allergies Allergy/AdvReac Type Severity Reaction Status Date / Time levofloxacin [From Levaquin] AdvReac Nausea & Verified 01/06/19 20:37 Vomiting & Diarrhea Review of Systems ROS Statement: Those systems with pertinent positive or pertinent negative responses have been documented in the HPI. ROS Other: All systems not noted in ROS Statement are negative. Past Medical History Past Medical History: COPD, Myocardial Infarction ([place]) Additional Past Medical History / Comment(s): Pt states he has hx of 3 respiratory arrests and was vented, generalized arthritis, Last Myocardial Infarction Date:: History of Any Multi-Drug Resistant Organisms: None Reported Past Surgical History: Adenoidectomy, Heart Catheterization With Stent, Hernia Repair, Joint Replacement, Orthopedic Surgery, Tonsillectomy Additional Past Surgical History / Comment(s): R inguinal hernia repair, L rotator cuff repair, bialteral total knee arthroplasties, R shoulder spur removal, teeth extracted, colonoscopy-normal. third hernia repair, left side Past Anesthesia/Blood Transfusion Reactions: No Reported Reaction Date of Last Stent Placement:: 2018 Past Psychological History: No Psychological Hx Reported Smoking Status: Former smoker Past Alcohol Use History: None Reported Past Drug Use History: None Reported - Past Family History Father Family Medical History: Cancer Additional Family Medical History / Comment(s): Father of lung cancer at the age of 68. He was a smoker. Mother Family Medical History: Diabetes Mellitus, Hypertension Additional Family Medical History / Comment(s): Mother is 78yrs old. General Exam Limitations: no limitations General appearance: alert, in no apparent distress Head exam: Present: atraumatic, normocephalic, normal inspection Eye exam: Present: normal appearance, PERRL, EOMI. Absent: scleral icterus, conjunctival injection, periorbital swelling ENT exam: Present: normal exam, mucous membranes moist Neck exam: Present: normal inspection. Absent: tenderness, meningismus, lym phadenopathy Respiratory exam: Present: normal lung sounds bilaterally. Absent: respiratory distress, wheezes, rales, rhonchi, stridor Cardiovascular Exam: Present: regular rate, normal rhythm, normal heart sounds. Absent: systolic murmur, diastolic murmur, rubs, gallop, clicks GI/Abdominal exam: Present: soft, normal bowel sounds. Absent: distended, tenderness, guarding, rebound, rigid Extremities exam: Present: normal inspection, full ROM, normal capillary refill. 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 Finger to nose is symmetric bilaterally. Orthostatics are attempted to be obtained from the patient's does have ataxia upon ambulation.) Psychiatric exam: Present: normal affect, normal mood Skin exam: Present: warm, dry, intact, normal color. Absent: rash Course Vital Signs 01/06/19 01/06/19 01/06/19 20:24 22:09 23:37 Temperature 98.2 F Pulse Rate 84 69 Pulse Rate [ 70 Right Sitting] Pulse Rate [ 63 Right Supine] Respiratory 20 18 Rate Blood Pressure 155/98 107/73 Blood Pressure 114/85 [Right Arm Sitting] Blood Pressure 117/69 [Right Arm Supine] O2 Sat by Pulse 97 98 Oximetry EKG Findings - EKG Comments: EKG Findings:: EKG demonstrates a normal sinus rhythm with a ventricular rate of 63. OK interval 136. QRS 104. QTC 427. There is an inverted T-wave in lead 3. No acute ST segment elevations. EKG is compared to previous and looks the same Medical Decision Making - Medical Decision Making Upon arrival the patient is placed into room 15. Thorough history and physical exam was obtained. I did recommend laboratory studies and CT imaging of the patient's brain. Peripheral IV was established. The patient was given a 500 mL bolus. I also provided him with 5 mg of Valium. With blood cell count 16.3. The patient is currently on steroids. Last white blood cell count was 19 during previous hospitalization. Coags are normal. First troponin is negative. Chest x-ray demonstrates no acute findings. CT brain demonstrates no acute intracranial process. CT angios of brain demonstrates bilateral plaque formation at the carotid artery bifurcations with narrowing. No evidence of intracranial aneurysm or neovascularity. I discussed these results with the patient. He does state mild improvement with the Valium. I do attempt to ambulate the patient however he remained significantly ataxic. We did obtain orthostatics and his vital signs are negative but the patient cannot stand upright. Because of this I did recommend stat MRI and neurologic evaluation. The patient did agree to this. He'll be transferred to [facility]. I did discuss the case with Dr. Cho who accepted transfer. Patient was transferred in stable condition - Lab Data Result diagrams: 01/06/19 21:09 01/06/19 21:09 Lab Results 01/06/19 01/06/19 01/06/19 Range/Units 21:09 21:09 21: WBC 16.3 H (3.8-10.6) k/uL RBC 4.57 (4.30-5.90) m/uL Hgb 13.8 (13.0-17.5) gm/dL Hct 40.2 (39.0-53.0) % MCV 87.9 (80.0-100.0) fL MCH 30.2 (25.0-35.0) pg MCHC 34.3 (31.0-37.0) g/dL RDW 12.7 (11.5-15.5) % Plt Count 190 (150-450) k/uL Neutrophils % 67 % Lymphocytes % 24 % Monocytes % 6 % Eosinophils % 1 % Basophils % 1 % Neutrophils # 10.9 H (1.3-7.7) k/uL Lymphocytes # 3.9 (1.0-4.8) k/uL Monocytes # 0.9 (0-1.0) k/uL Eosinophils # 0.1 (0-0.7) k/uL Basophils # 0.1 (0-0.2) k/uL PT 9.8 (9.0-12.0) sec INR 0.9 (<1.2) APTT 22.8 (22.0-30.0) sec Sodium 136 L (137-145) mmol/L Potassium 4.1 (3.5-5.1) mmol/L Chloride 101 (98-107) mmol/L Carbon Dioxide 25 (22-30) mmol/L Anion Gap 10 mmol/L BUN 22 H (9-20) mg/dL Creatinine 0.79 (0.66-1.25) mg/dL Est GFR (CKD-EPI)AfAm >90 (>60 ml/min/1.73 sqM) Est GFR (CKD-EPI)NonAf >90 (>60 ml/min/1.73 sqM) Glucose 116 H (74-99) mg/dL Calcium 8.9 (8.4-10.2) mg/dL Total Bilirubin 0.6 (0.2-1.3) mg/dL AST 17 (17-59) U/L ALT 33 (21-72) U/L Alkaline Phosphatase 129 H (38-126) U/L Troponin I (0.000-0.034) ng/mL Total Protein 6.1 L (6.3-8.2) g/dL Albumin 3.5 (3.5-5.0) g/dL 01/06/19 Range/Units 21:09 WBC (3.8-10.6) k/uL RBC (4.30-5.90) m/uL Hgb (13.0-17.5) gm/dL Hct (39.0-53.0) % MCV (80.0-100.0) fL MCH (25.0-35.0) pg MCHC (31.0-37.0) g/dL RDW (11.5-15.5) % Plt Count (150-450) k/uL Neutrophils % % Lymphocytes % % Monocytes % % Eosinophils % % Basophils % % Neutrophils # (1.3-7.7) k/uL Lymphocytes # (1.0-4.8) k/uL Monocytes # (0-1.0) k/uL Eosinophils # (0-0.7) k/uL Basophils # (0-0.2) k/uL PT (9.0-12.0) sec INR (<1.2) APTT (22.0-30.0) sec Sodium (137-145) mmol/L Potassium (3.5-5.1) mmol/L Chloride (98-107) mmol/L Carbon Dioxide (22-30) mmol/L Anion Gap mmol/L BUN (9-20) mg/dL Creatinine (0.66-1.25) mg/dL Est GFR (CKD-EPI)AfAm (>60 ml/min/1.73 sqM) Est GFR (CKD-EPI)NonAf (>60 ml/min/1.73 sqM) Glucose (74-99) mg/dL Calcium (8.4-10.2) mg/dL Total Bilirubin (0.2-1.3) mg/dL AST (17-59) U/L ALT (21-72) U/L Alkaline Phosphatase (38-126) U/L Troponin I <0.012 (0.000-0.034) ng/mL Total Protein (6.3-8.2) g/dL Albumin (3.5-5.0) g/dL Disposition Clinical Impression: Ataxia Disposition: OTHER INSTITUTION NOT DEFINED Condition: Stable Is patient prescribed a controlled substance at d/c from ED?: No Referrals: Bear Arias MD [Primary Care Provider] - 1-2 days Time of Disposition: 00:19 - Out of Hospital Transfer - Req. Specs Out of Hospital Transfer - Requested Specifics: Other Emergency Center ([facility])
--- NOTE | 2019-01-06 22:05 | CT ---
EXAMINATION TYPE: CT brain wo con DATE OF EXAM: 01/06/2019 COMPARISON: 09/24/2018 HISTORY: weakness, dizziness CT DLP: 1092.9 mGycm Automated exposure control for dose reduction was used. FINDINGS: Multiple axial sections were obtained of the brain with no contrast. The ventricles have normal size. There is no mass effect nor midline shift. There is no sign of intracranial hemorrhage. The calvariu m is intact. IMPRESSION: NEGATIVE HEAD CT SCAN. NO CHANGE.
[2019-01-06 22:09] VITALS: RESP 18
--- NOTE | 2019-01-06 22:22 | CT ---
EXAMINATION TYPE: CT angio head neck DATE OF EXAM: 01/06/2019 HISTORY: weakness, dizziness COMPARISON: None CT DLP: 573.1 mGycm. Automated Exposure Control for Dose Reduction was Utilized. TECHNIQUE: CTA scan of the neck is performed with IV Contrast, patient injected with 65cc mL of Isov ue 370, axial images are obtained, coronal and sagittal reformatted images are reviewed. Three-D liya nstructed images are created on an independent workstation and reviewed. FINDINGS: There is normal branching pattern of the great vessels on the aortic arch. There is bilateral arteria l flow in the vertebral arteries. Vertebral arteries are fairly symmetric. There is bilateral arteria l flow in the common internal and external carotid arteries. There is mild plaque formation at the ca rotid artery bifurcations. Lumen narrowing is approximately 40% on the left side and 15% on the right side. There is no evidence of carotid or vertebral artery aneurysm or dissection. There is arterial flow in the vertebrobasilar artery system. There is arterial flow in both intracran ial internal carotid arteries. There is arterial flow in the anterior middle and posterior cerebral a rteries. There is no mass effect. There is no evidence of intracranial aneurysm or neovascularity. Th ere is normal contrast opacification of the venous sinuses. There is no evidence of intracranial hemo dynamic stenosis. IMPRESSION: Bilateral plaque formation at the carotid artery bifurcations with narrowing as above. No evidence of intracranial aneurysm or neovascularity. No evidence of intracranial hemodynamic stenosis.
[2019-01-07 01:11] VITALS: BP 148/67; PULSE 65; TEMP 97.6
== END 2019-01-07 01:16 | disposition other institution (70) ==
LOC: EC 20:22
DX: R27.0 Ataxia, unspecified (principal); I25.2 Old myocardial infarction; J44.9 Chronic obstructive pulmonary disease, unspecified; Z79.82 Long term (current) use of aspirin; Z79.51 Long term (current) use of inhaled steroids; Z79.899 Other long term (current) drug therapy; Z88.1 Allergy status to other antibiotic agents; Z87.891 Personal history of nicotine dependence; Z95.5 Presence of coronary angioplasty implant and graft
CPT/HCPCS: 36415; 93005; 80053; 84484; 85025; 85610; 85730; 71046; 70496; 70450; 70498; 99285; 96374; 96361 ×4; J3360; Q9967

== ENCOUNTER 2019-01-10 20:06 | Emergency (ER) | payer MEDICARE, OTHER ==
[2019-01-10 20:11] VITALS: BP 146/90; RESP 28; TEMP 98.4
[2019-01-10] MEDS ORDERED: DEXAMETHASONE 4 MG TAB PO STA (20:35)
[2019-01-10] MEDS ORDERED: IPRATROPIUM-ALBUTEROL 3 ML NEB INHALATION STA ×2 (20:35→22:00)
--- NOTE | 2019-01-10 20:38 | ED ---
SOB HPI - General Chief Complaint: Shortness of Breath Stated Complaint: SOB Time Seen by Provider: 01/10/19 20:35 Source: patient, RN notes reviewed, old records reviewed Mode of arrival: ambulatory Limitations: no limitations - History of Present Illness Initial Comments: This is a 58-year-old male the ER for evaluation, presenting today for evaluatio n regards to significant shortness of breath. [facility] states they were not getting a breathing treatment at the time. Patient has severe COPD history of multiple inpatient hospitalizations. states that he would just unable take his breathing treatments he would have been been fine. He does continue to smoke. Denies chest pain significant cough that is productive. Shortness of breath with any type of movement or exertion. Denying any fevers. No recent change in medications. MD Complaint: shortness of breath, cough, "asthma attack" -: hour(s) Severity: moderate Severity scale (1-10): 7 Quality: dull Consistency: constant Improves With: rest Worsens With: exertion, movement Known History Of: COPD Context: recent URI Associated Symptoms: pain with inspiration, cough, sputum production Treatments Prior to Arrival: none - Related Data Home Medications Medication Instructions Recorded Confirmed Albuterol Sulfate [Ventolin HFA] 2 puff INHALATION RT-Q6H PRN 09/07/14 01/10/19 Albuterol Nebulized [Ventolin 2.5 mg INHALATION RT-Q4H PRN 03/03/16 01/10/19 Nebulized] Arformoterol Tartrate [Brovana] 15 mcg INHALATION RT-BID 03/03/16 01/10/19 Budesonide [Pulmicort] 0.5 mg INHALATION RT-BID 03/03/16 01/10/19 Ipratropium Nebulized [Atrovent 0.5 mg INHALATION RT-BID 03/23/17 01/10/19 Nebulized 0.2 MG/ML] predniSONE See Taper PO DIRECTED 01/01/19 01/10/19 Aspirin 81 mg PO HS 01/06/19 01/10/19 Atorvastatin [Lipitor] 80 mg PO HS 01/06/19 01/10/19 Previous Rx's Medication Instructions Recorded Clopidogrel Bisulfate [Plavix] 75 mg PO DAILY #90 tab 12/30/18 Metoprolol Tartrate [Lopressor] 25 mg PO BID #180 tablet 12/30/18 Famotidine [Pepcid] 20 mg PO DAILY #30 tab 01/01/19 Albuterol Nebulized [Ventolin 2.5 mg INHALATION Q4H PRN #25 nebu 01/10/19 Nebulized] Albuterol Sulfate [Proair Hfa] 1 - 2 puff INHALATION Q4H PRN #1 01/10/19 inhaler predniSONE 50 mg PO DAILY #5 tab 01/10/19 Allergies Allergy/AdvReac Type Severity Reaction Status Date / Time levofloxacin [From Levaquin] AdvReac Nausea & Verified 01/10/19 20:56 Vomiting & Diarrhea Review of Systems ROS Statement: Those systems with pertinent positive or pertinent negative responses have been documented in the HPI. ROS Other: All systems not noted in ROS Statement are negative. Past Medical History Past Medical History: COPD, Myocardial Infarction ([place]) Additional Past Medical History / Comment(s): Pt states he has hx of 3 respiratory arrests and was vented, generalized arthritis, Last Myocardial Infarction Date:: History of Any Multi-Drug Resistant Organisms: None Reported Past Surgical History: Adenoidectomy, Heart Catheterization With Stent, Hernia Repair, Joint Replacement, Orthopedic Surgery, Tonsillectomy Additional Past Surgical History / Comment(s): R inguinal hernia repair, L rotator cuff repair, bialteral total knee arthroplasties, R shoulder spur removal, teeth extracted, colonoscopy-normal. third hernia repair, left side Past Anesthesia/Blood Transfusion Reactions: No Reported Reaction Date of Last Stent Placement:: 2018 Past Psychological History: No Psychological Hx Reported Smoking Status: Former smoker Past Alcohol Use History: None Reported Past Drug Use History: None Reported - Past Family History Father Family Medical History: Cancer Additional Family Medical History / Comment(s): Father of lung cancer at the age of 68. He was a smoker. Mother Family Medical History: Diabetes Mellitus, Hypertension Additional Family Medical History / Comment(s): Mother is 78yrs old. General Exam Limitations: no limitations General appearance: alert, in no apparent distress, anxious Head exam: Present: atraumatic, normocephalic, normal inspection Eye exam: Present: normal appearance, PERRL, EOMI. Absent: scleral icterus, conjunctival injection, periorbital swelling ENT exam: Present: normal exam, mucous membranes moist Neck exam: Present: normal inspection. Absent: tenderness, meningismus, lymphadenopathy Respiratory exam: Present: respiratory distress, wheezes, accessory muscle use, decreased breath sounds, prolonged expiratory. Absent: rales, rhonchi, stridor Cardiovascular Exam: Present: regular rate, normal rhythm, normal heart sounds. Absent: systolic murmur, diastolic murmur, rubs, gallop, clicks GI/Abdominal exam: Present: soft, normal bowel sounds. Absent: distended, tenderness, guarding, rebound, rigid Extremities exam: Present: normal inspection, full ROM, normal capillary refill. Absent: tenderness, pedal edema, joint swelling, calf tenderness Back exam: Present: normal inspection Neurological exam: Present: alert, oriented X3, CN II-XII intact Psychiatric exam: Present: normal affect, normal mood Skin exam: Present: warm, dry, intact, normal color. Absent: rash Course Vital Signs 01/10/19 01/10/19 01/10/19 20:09 20:49 21:06 Temperature 98.4 F Pulse Rate 61 77 89 Respiratory 28 H Rate Blood Pressure 146/90 O2 Sat by Pulse 100 Oximetry - Reevaluation(s) Reevaluation #1: 01/10/19 21:16 Medical records reviewed Reevaluation #2: 01/10/19 22:01 Patient has significant improvement upon breathing treatment, patient will have repeat breathing treatment as he is refusing for admission Medical Decision Making - Medical Decision Making 58 male COPD exacerbation, patient refusing admission, he does feel improved with breathing treatment here in the ER and will be discharged - Radiology Data Radiology results: report reviewed (Chest x-rays negative for acute disease), image reviewed Disposition Clinical Impression: Acute exacerbation of chronic obstructive pulmonary disease, Acute exacerbation of chronic obstructive airways disease, Tachycardia Disposition: HOME SELF-CARE Condition: Fair Instructions (If sedation given, give patient instructions): Acute Bronchitis (ED), Chronic Bronchitis (ED) Prescriptions: predniSONE 50 mg PO DAILY #5 tab Albuterol Sulfate [Proair Hfa] 1 - 2 puff INHALATION Q4H PRN #1 inhaler PRN Reason: Shortness Of Breath Albuterol Nebulized [Ventolin Nebulized] 2.5 mg INHALATION Q4H PRN #25 nebu PRN Reason: Shortness Of Breath Is patient prescribed a controlled substance at d/c from ED?: No Referrals: Bear Arias MD [Primary Care Provider] - 1-2 days
[2019-01-10] MEDS ORDERED: ACET/COD 120MG/12MG LIQ 5ML CUP PO ONE (20:46)
--- NOTE | 2019-01-10 21:39 | XR ---
EXAMINATION TYPE: XR chest 1V portable DATE OF EXAM: 01/10/2019 COMPARISON: Chest x-ray from 4 days ago. HISTORY: Shortness of breath. TECHNIQUE: Single AP portable frontal view of the chest is obtained. FINDINGS: There is no focal air space opacity, pleural effusion, or pneumothorax seen. The cardiac silhouette size is within normal limits. Surgical change left humeral head is partially imaged. IMPRESSION: No acute process. No significant change from prior.
[2019-01-10] MEDS ORDERED: ALBUTEROL NEBULIZED 2.5 MG/3 ML INHALATION STA (22:00)
[2019-01-10 22:35] VITALS: PULSE 91
== END 2019-01-11 03:10 | disposition home or self-care (01) ==
LOC: EC 20:06
DX: J44.1 Chronic obstructive pulmonary disease with (acute) exacerbation (principal); R00.0 Tachycardia, unspecified; I25.2 Old myocardial infarction; M19.90 Unspecified osteoarthritis, unspecified site; Z95.5 Presence of coronary angioplasty implant and graft; Z96.653 Presence of artificial knee joint, bilateral; Z87.891 Personal history of nicotine dependence; Z79.51 Long term (current) use of inhaled steroids; Z79.52 Long term (current) use of systemic steroids; Z79.82 Long term (current) use of aspirin; Z79.899 Other long term (current) drug therapy; Z88.1 Allergy status to other antibiotic agents; Z53.29 Procedure and treatment not carried out because of patient's decision for other reasons
CPT/HCPCS: 94640 ×2; 71045; 99285; J8540

== ENCOUNTER 2019-01-16 23:56 | Inpatient (IN) | payer MEDICARE, OTHER ==
[2019-01-17] MEDS ORDERED: IPRATROPIUM-ALBUTEROL 3 ML NEB INHALATION STA (00:21)
--- NOTE | 2019-01-17 01:44 | ED ---
SOB HPI - General Chief Complaint: Shortness of Breath Stated Complaint: Difficulty Breathing Time Seen by Provider: 01/17/19 00:21 Source: patient Mode of arrival: ambulatory Limitations: no limitations - History of Present Illness Initial Comments: Marcel is a 58-year-old male with a history of COPD who presents the ER today for evaluation of shortness of breath. Patient was admitted in the hospital a little over a week ago and discharged home a 15. Patient is still taking steroids. Patient states he is currently homeless living in his truck and hasn't been able do nebulized treatments. Patient reports that this evening he feels like he can't catch his breath as tightness and wheezing. This prompted him to come to the ER for further evaluation. Patient denies any fevers chills nausea or vomiting. Denies any exertional chest pain. - Related Data Home Medications Medication Instructions Recorded Confirmed Albuterol Sulfate [Ventolin HFA] 2 puff INHALATION RT-Q6H PRN 09/07/14 01/10/19 Albuterol Nebulized [Ventolin 2.5 mg INHALATION RT-Q4H PRN 03/03/16 01/10/19 Nebulized] Arformoterol Tartrate [Brovana] 15 mcg INHALATION RT-BID 03/03/16 01/10/19 Budesonide [Pulmicort] 0.5 mg INHALATION RT-BID 03/03/16 01/10/19 Ipratropium Nebulized [Atrovent 0.5 mg INHALATION RT-BID 03/23/17 01/10/19 Nebulized 0.2 MG/ML] predniSONE See Taper PO DIRECTED 01/01/19 01/10/19 Aspirin 81 mg PO HS 01/06/19 01/10/19 Atorvastatin [Lipitor] 80 mg PO HS 01/06/19 01/10/19 Previous Rx's Medication Instructions Recorded Clopidogrel Bisulfate [Plavix] 75 mg PO DAILY #90 tab 12/30/18 Metoprolol Tartrate [Lopressor] 25 mg PO BID #180 tablet 12/30/18 Famotidine [Pepcid] 20 mg PO DAILY #30 tab 01/01/19 Albuterol Nebulized [Ventolin 2.5 mg INHALATION Q4H PRN #25 nebu 01/10/19 Nebulized] Albuterol Sulfate [Proair Hfa] 1 - 2 puff INHALATION Q4H PRN #1 01/10/19 inhaler predniSONE 50 mg PO DAILY #5 tab 01/10/19 Allergies Allergy/AdvReac Type Severity Reaction Status Date / Time levofloxacin [From Levaquin] AdvReac Nausea & Verified 01/17/19 00:16 Vomiting & Diarrhea Review of Systems ROS Statement: Those systems with pertinent positive or pertinent negative responses have been documented in the HPI. ROS Other: All systems not noted in ROS Statement are negative. Past Medical History Past Medical History: COPD, Myocardial Infarction ([place]) Additional Past Medical History / Comment(s): Pt states he has hx of 3 respiratory arrests and was vented, generalized arthritis, Last Myocardial Infarction Date:: History of Any Multi-Drug Resistant Organisms: None Reported Past Surgical History: Adenoidectomy, Heart Catheterization With Stent, Hernia Repair, Joint Replacement, Orthopedic Surgery, Tonsillectomy Additional Past Surgical History / Comment(s): R inguinal hernia repair, L rotator cuff repair, bialteral total knee arthroplasties, R shoulder spur removal, teeth extracted, colonoscopy-normal. third hernia repair, left side Past Anesthesia/Blood Transfusion Reactions: No Reported Reaction Date of Last Stent Placement:: 2018 Past Psychological History: No Psychological Hx Reported Smoking Status: Former smoker Past Alcohol Use History: None Reported Past Drug Use History: None Reported - Past Family History Father Family Medical History: Cancer Additional Family Medical History / Comment(s): Father of lung cancer at the age of 68. He was a smoker. Mother Family Medical History: Diabetes Mellitus, Hypertension Additional Family Medical History / Comment(s): Mother is 78yrs old. General Exam - General Exam Comments Initial Comments: Physical Exam GENERAL: Moderate respiratory distress Tripod HENT: Normocephalic, Atraumatic. EYES: PERRL, EOMI PULMONARY: Tripod position Tachypnea Increased work of breathing, retractions Wheezing in all lung pringle CARDIOVASCULAR: RRR ABDOMEN: Soft and nontender with normal bowel sounds. SKIN: Skin is clear with no lesions or rashes and otherwise unremarkable. : Deferred NEUROLOGIC: Patient is alert and oriented x3. Moving all extremities spontaneously MUSCULOSKELETAL: Normal extremities with adequate strength and full range of motion. No lower extremity swelling or edema. No calf tenderness. PSYCHIATRIC: Normal psychiatric evaluation. Limitations: no limitations Course Vital Signs 01/17/19 01/17/1919 00:13 00:16 00:40 Temperature 98.4 F Pulse Rate 81 74 Respiratory 26 H 22 Rate Blood Pressure 125/84 O2 Sat by Pulse 96 97 Oximetry 01/17/19 01/17/19 01/17/19 01:10 02:16 02:40 Temperature Pulse Rate 75 83 85 Respiratory 18 22 21 Rate Blood Pressure 108/80 109/76 O2 Sat by Pulse 91 L 97 Oximetry Medical Decision Making - Medical Decision Making The patient was seen and evaluated history was obtained and the patient review of medical record Patient was seen and evaluated immediately upon arrival to the emergency department patient was noted to be in moderate respiratory distress, triple DuoNeb therapy was immediately ordered Patient improved only moderately with triple DuoNeb's, labs imaging and steroids were ordered As of mild leukocytosis likely related to recent steroid use next and chest x- ray with COPD changes no pneumonia no pneumothorax Given the patient's significant history and only minimal improvement with nebulizer as well as his social situation which she is currently homeless and cannot do his nebulizer treatments we will plan to place the patient in the hospital for round the clock treatment She care discussed with Dr. Christian agrees with plan for admission - Lab Data Result diagrams: 01/17/19 02:40 01/17/19 02:40 Lab Results 01/17/19 01/17/19 01/17/19 Range/Units 02:40 02:40 02:40 WBC 11.8 H (3.8-10.6) k/uL RBC 4.51 (4.30-5.90) m/uL Hgb 13.8 (13.0-17.5) gm/dL Hct 40.5 (39.0-53.0) % MCV 89.9 (80.0-100.0) fL MCH 30.6 (25.0-35.0) pg MCHC 34.0 (31.0-37.0) g/dL RDW 13.3 (11.5-15.5) % Plt Count 198 (150-450) k/uL Neutrophils % 88 % Lymphocytes % 9 % Monocytes % 2 % Eosinophils % 0 % Basophils % 1 % Neutrophils # 10.4 H (1.3-7.7) k/uL Lymphocytes # 1.0 (1.0-4.8) k/uL Monocytes # 0.2 (0-1.0) k/uL Eosinophils # 0.0 (0-0.7) k/uL Basophils # 0.1 (0-0.2) k/uL PT 9.5 (9.0-12.0) sec INR 0.9 (<1.2) APTT 21.9 L (22.0-30.0) sec Sodium 135 L (137-145) mmol/L Potassium 4.7 (3.5-5.1) mmol/L Chloride 103 (98-107) mmol/L Carbon Dioxide 23 (22-30) mmol/L Anion Gap 9 mmol/L BUN 19 (9-20) mg/dL Creatinine 0.82 (0.66-1.25) mg/dL Est GFR (CKD-EPI)AfAm >90 (>60 ml/min/1.73 sqM) Est GFR (CKD-EPI)NonAf >90 (>60 ml/min/1.73 sqM) Glucose 148 H (74-99) mg/dL Calcium 9.1 (8.4-10.2) mg/dL Magnesium 2.2 (1.6-2.3) mg/dL Total Bilirubin 0.5 (0.2-1.3) mg/dL AST 20 (17-59) U/L ALT 29 (21-72) U/L Alkaline Phosphatase 106 (38-126) U/L Troponin I (0.000-0.034) ng/mL Total Protein 6.4 (6.3-8.2) g/dL Albumin 3.7 (3.5-5.0) g/dL 01/17/19 Range/Units 02:40 WBC (3.8-10.6) k/uL RBC (4.30-5.90) m/uL Hgb (13.0-17.5) gm/dL Hct (39.0-53.0) % MCV (80.0-100.0) fL MCH (25.0-35.0) pg MCHC (31.0-37.0) g/dL RDW (11.5-15.5) % Plt Count (150-450) k/uL Neutrophils % % Lymphocytes % % Monocytes % % Eosinophils % % Basophils % % Neutrophils # (1.3-7.7) k/uL Lymphocytes # (1.0-4.8) k/uL Monocytes # (0-1.0) k/uL Eosinophils # (0-0.7) k/uL Basophils # (0-0.2) k/uL PT (9.0-12.0) sec INR (<1.2) APTT (22.0-30.0) sec Sodium (137-145) mmol/L Potassium (3.5-5.1) mmol/L Chloride (98-107) mmol/L Carbon Dioxide (22-30) mmol/L Anion Gap mmol/L BUN (9-20) mg/dL Creatinine (0.66-1.25) mg/dL Est GFR (CKD-EPI)AfAm (>60 ml/min/1.73 sqM) Est GFR (CKD-EPI)NonAf (>60 ml/min/1.73 sqM) Glucose (74-99) mg/dL Calcium (8.4-10.2) mg/dL Magnesium (1.6-2.3) mg/dL Total Bilirubin (0.2-1.3) mg/dL AST (17-59) U/L ALT (21-72) U/L Alkaline Phosphatase (38-126) U/L Troponin I <0.012 (0.000-0.034) ng/mL Total Protein (6.3-8.2) g/dL Albumin (3.5-5.0) g/dL - EKG Data -: EKG Interpreted by Me EKG Comments: EG obtained due to complaint of shortness breath, EKG obtained at 2:40 AM, rate 77 rhythm is sinus with PVCs, there is a normal axis, there are normal intervals, NM 156, QRS 84, QTC is 439 there are no acute ST elevations or depressions there is no evidence of acute ischemia or infarction. Critical Care Time Critical Care Time: Yes Total Critical Care Time: 30 Critical Care Time: Critical Care Time Critical care time was exclusive of separately billable procedures and treating other patients and teaching time. Critical care was necessary to treat or prevent imminent or life-threatening deterioration. Given the critical condition in which the patient arrived, the patient was immediately assessed by myself and the nurse, and cardiac monitoring initiated due to the potential for rapid decompensation of the patient's clinical condition. During the course of the patients stay, I spent a considerable amount of time at the bedside performing serial re-evaluations of the patient's hemodynamic and clinical status because of the recognized potential threat to life or limb in this condition. I then had a chance to review not only all of the available current laboratory and radiographic studies obtained today, but I also reviewed old records available to me at the time. Additionally, any ancillary information available including director global market research records were reviewed. Sequential vital signs were obtained. Disposition Clinical Impression: Acute exacerbation of chronic obstructive pulmonary disease Disposition: ADMITTED IP TO THIS HOSP Condition: Serious
[2019-01-17] MEDS ORDERED: SODIUM CHLORIDE 0.9% 1,000 ML IV STA (02:02)
--- NOTE | 2019-01-17 02:16 | XR ---
EXAMINATION TYPE: XR chest 2V DATE OF EXAM: 01/17/2019 COMPARISON: 01/10/2019 HISTORY: Difficulty breathing TECHNIQUE: Frontal and lateral views of the chest are obtained. FINDINGS: Heart and mediastinum are normal. Lungs are clear. Diaphragm is normal. Bony thorax appear s intact. There is some widening of the left AC joint probably due to old injury. IMPRESSION: No cardiopulmonary disease. Old left AC joint separation. No change compared to old exam .
[2019-01-17 03:08] LABS: Basophils # (A) 0.1 k/uL (0-0.2); Basophils % (A) 1 %; Eosinophils % (A) 0 %; HCT 40.5 % (39.0-53.0); HGB 13.8 gm/dL (13.0-17.5); Lymphocytes % (A) 9 %; MCH 30.6 pg (25.0-35.0); MCV 89.9 fL (80.0-100.0); Mean Platelet Volume 6.8; Monocytes # (A) 0.2 k/uL (0-1.0); Monocytes % (A) 2 %; Neutrophils # (A) 10.4 k/uL (1.3-7.7); Neutrophils % (A) 88 %; Platelet Count 198 k/uL (150-450); RBC 4.51 m/uL (4.30-5.90); RDW 13.3 % (11.5-15.5); WBC 11.8 k/uL (3.8-10.6)
[2019-01-17 03:21] LABS: ALT 29 U/L (21-72); AST 20 U/L (17-59); African American GFR (CKD) >90 (>60 ml/min/1.73 sqM); Albumin 3.7 g/dL (3.5-5.0); Alkaline Phosphatase 106 U/L (38-126); Anion Gap 9 mmol/L; Blood Urea Nitrogen 19 mg/dL (9-20); Calcium 9.1 mg/dL (8.4-10.2); Carbon Dioxide 23 mmol/L (22-30); Chloride 103 mmol/L (98-107); Glucose 148 mg/dL (74-99); Magnesium 2.2 mg/dL (1.6-2.3); Potassium 4.7 mmol/L (3.5-5.1); Sodium 135 mmol/L (137-145); Total Bilirubin 0.5 mg/dL (0.2-1.3); Total Protein 6.4 g/dL (6.3-8.2)
[2019-01-17 03:33] LABS: INR 0.9 (<1.2); Prothrombin Time 9.5 sec (9.0-12.0)
[2019-01-17 03:37] LABS: Partial Thromboplastin Time 21.9 sec (22.0-30.0)
[2019-01-17] MEDS ORDERED: methylPREDNISolone SOD SUCCI 125 MG/2 ML VIAL IV STA (04:22)
[2019-01-17] MEDS ORDERED: IPRATROPIUM-ALBUTEROL 3 ML NEB INHALATION PRN (04:22)
[2019-01-17] MEDS ORDERED: predniSONE 20 MG TAB PO SCH (09:00)
[2019-01-17] MEDS: CLOPIDOGREL 75 MG TAB PO SCH (10:22)
[2019-01-17] MEDS: METOPROLOL TARTRATE 25 MG TAB PO SCH ×2 (10:22→20:27)
[2019-01-17] MEDS: IPRATROPIUM-ALBUTEROL 3 ML NEB INHALATION SCH ×3 (10:31→21:29)
[2019-01-17 12:52] LABS: Glucose,Whole Blood 174 mg/dL (75-99)
[2019-01-17] MEDS: AZITHROMYCIN 500 MG TAB PO SCH (12:58)
[2019-01-17] MEDS: methylPREDNISolone SOD SUCCI 125 MG/2 ML VIAL IV SCH ×2 (12:58→17:48)
[2019-01-17] MEDS: INSULIN ASPART (NovoLOG) 100 UNIT/ML VIAL SQ SCH ×3 (12:58→20:28)
--- NOTE | 2019-01-17 15:48 | P.HPIM ---
History of Present Illness H&P Date: 01/17/19 This is a 58-year-old male patient of Dr. Arias with past medical history of COPD, coronary artery disease status post stenting of the mid RCA with bare metal stent, hyperlipidemia, nicotine dependence, history of IV drug abuse, history of marijuana abuse, history of alcohol abuse. Patient was recently seen in the emergency center at [facility] for acute hypoxic respiratory failure secondary to COPD exacerbation and acute chest pain with nonspecific ST-T wave changes on EKG. Patient underwent a heart catheterization with Dr. De Luna the found critical disease involving the mid RCA and intermediate to severe disease involving the mid LAD and recommended [employer] of the RCA and patient was transferred to [facility] and underwent successful stenting of the mid RCA with a bare metal stent with Dr. De Luna. Acute exacerbation of COPD was stabilized and he was discharged to a long-term. Patient now states that he is living in his truck as he was kicked out of the long-term for unknown reason. He was staying at the [facility] [place]. He states he was kicked out on January 10. Patient states that he has been able to use his nebulizer in his truck but it has not been helping with increasing shortness of breath and cough. He states he has a little yellow and little blood in his sputum. He states he parked in the hospital parking lot so that if he needed to come in the hospital he will be close by if he needs any treatment. He states he has had follow-up with Dr. Hudson, Dr. Arias and Dr. De Luna last week. He had an ultrasound of the carotids done yesterday Dr. De Luna's office and is scheduled later this month for stress test and some other testing with a follow-up appointment scheduled on February 06 to obtain results of all testing. Patient came into [facility] emergency center for evaluation. Chest x-ray reveals no cardiopulmonary disease. WBC 11.8, sodium 135, blood sugar 148, troponin negative. EKG sinus rhythm with no acute ST-T wave changes. Patient ordered for [place] to the [facility] floor and consult has been added for Dr. Hudson. Review of Systems Constitutional: Reports fatigue, Denies anorexia, Denies chills, Denies fever, Denies lethargy, Denies malaise, Denies night sweats, Denies poor appetite Ears, nose, mouth and throat: Denies dysphagia, Denies headache, Denies nasal congestion, Denies nasal discharge, Denies sore throat, Denies vertigo Cardiovascular: Reports decreased exercise tolerance, Reports dyspnea on exertion, Reports shortness of breath, Denies chest pain, Denies edema, Denies leg edema, Denies lightheadedness, Denies orthopnea, Denies syncope Respiratory: Reports congestion, Reports cough with sputum, Reports dyspnea, Reports respiratory infections, Reports wheezing, Denies excessive sputum, Denies hemoptysis, Denies home oxygen Gastrointestinal: Denies abdominal pain, Denies diarrhea, Denies loss of appetite, Denies nausea, Denies vomiting Genitourinary: Denies dysuria, Denies urinary frequency, Denies urinary retention Musculoskeletal: Denies frequent falls, Denies gait dysfunction, Denies muscle weakness, Denies myalgias Integumentary: Denies pruritus, Denies rash, Denies wounds Neurological: Denies change in mentation, Denies change in speech, Denies numbness, Denies seizures, Denies weakness Psychiatric: Denies anxiety, Denies depression Endocrine: Denies fatigue, Denies weight change Past Medical History Past Medical History: Coronary Artery Disease (CAD), COPD, Myocardial Infarction ([place]) Additional Past Medical History / Comment(s): Pt states he has hx of 3 respiratory arrests and was vented, generalized arthritis, Last Myocardial Infarction Date:: History of Any Multi-Drug Resistant Organisms: None Reported Past Surgical History: Adenoidectomy, Heart Catheterization With Stent, Hernia Repair, Joint Replacement, Orthopedic Surgery, Tonsillectomy Additional Past Surgical History / Comment(s): R inguinal hernia repair, L rotator cuff repair, bialteral total knee arthroplasties, R shoulder spur removal, teeth extracted, colonoscopy-normal. third hernia repair, left side Past Anesthesia/Blood Transfusion Reactions: No Reported Reaction Date of Last Stent Placement:: 2018 Past Psychological History: No Psychological Hx Reported Smoking Status: Former smoker Past Alcohol Use History: None Reported Additional Past Alcohol Use History / Comment(s): Patient was a smoker of up to 5-6 packs per day for over 2 years but smoked from a total of 43 years. He was recently done a 4-5 cigarettes per day and stopped on December 29. He uses marijuana daily. He is recovering alcoholic and he drinks alcohol rarely at this point and his last intake was 3-4 weeks ago. He has history of illicit drug use including Phen-Fen a means, LSD, cocaine, heroin and quit all of this 9 years ago. 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 Past Drug Use History: None Reported - Past Family History Father Family Medical History: Cancer Additional Family Medical History / Comment(s): Father of lung cancer at the age of 62. He was a smoker. Mother Family Medical History: Diabetes Mellitus, Hypertension Additional Family Medical History / Comment(s): Mother at age 78 from brainstem cancer. Brother(s) Additional Family Medical History / Comment(s): Patient's 1 brother with history of AAA. Patient has 4 sisters and he does not know any of their medical history. Patient's 1 son and 1 daughter living. He had one daughter that at 7 weeks old from a congenital heart. Medications and Allergies Home Medications Medication Instructions Recorded Confirmed Type Albuterol Sulfate [Ventolin HFA] 2 puff INHALATION RT-Q6H PRN 09/07/14 01/17/19 History Albuterol Nebulized [Ventolin 2.5 mg INHALATION RT-Q4H PRN 03/03/16 01/17/19 History Nebulized] Arformoterol Tartrate [Brovana] 15 mcg INHALATION RT-BID 03/03/16 01/17/19 History Budesonide [Pulmicort] 0.5 mg INHALATION RT-BID 03/03/16 01/17/19 History Ipratropium Nebulized [Atrovent 0.5 mg INHALATION RT-BID 03/23/17 01/17/19 History Nebulized 0.2 MG/ML] Clopidogrel Bisulfate [Plavix] 75 mg PO DAILY #90 tab 12/30/18 01/17/19 Rx Metoprolol Tartrate [Lopressor] 25 mg PO BID #180 tablet 12/30/18 01/17/19 Rx Famotidine [Pepcid] 20 mg PO DAILY #30 tab 01/01/19 01/17/19 Rx predniSONE See Taper PO DIRECTED 01/01/19 01/17/19 History Aspirin 81 mg PO HS 01/06/19 01/17/19 History Atorvastatin [Lipitor] 80 mg PO HS 01/06/19 01/17/19 History Allergies Allergy/AdvReac Type Severity Reaction Status Date / Time levofloxacin [From Levaquin] AdvReac Nausea & Verified 01/17/19 08:14 Vomiting & Diarrhea Physical Exam Vitals: Vital Signs Temp Pulse Pulse Resp BP BP Pulse Ox 01/17/19 08:11 93 01/17/19 07:55 93 01/17/19 06:55 63 16 126/76 98 01/17/19 02:40 85 21 109/76 97 01/17/19 02:16 83 22 108/80 91 L 01/17/19 01:10 75 18 01/17/19 00:40 74 22 01/17/19 00:16 97 01/17/19 00:13 98.4 F 81 26 H 125/84 96 Intake and Output 01/16/19 01/17/19 01/17/19 22:59 06:59 14:59 Other: Weight 84.822 kg - Constitutional General appearance: cooperative, no acute distress, obese - EENT Eyes: anicteric sclerae, PERRLA, normal appearance ENT: hearing grossly normal on the left ear, hearing is impaired on the right ear. There is significant tenderness to the scalp around the ear, ear auricle itself and anterior lateral neck area. No rash noted. - Neck Neck: no lymphadenopathy, normal ROM, no other, no rigidity, no stridor, no thyromegaly - Respiratory Respiratory: bilateral: Scattered expiratory wheezes negative: diminished, dullness, rales, rhonchi - Cardiovascular Rhythm: regular Heart sounds: normal: S1, S2 Abnormal Heart Sounds: no systolic murmur, no diastolic murmur, no rub, no S3 Gallop, no S4 Gallop, no click, no other - Gastrointestinal General gastrointestinal: normal bowel sounds, soft - Integumentary Integumentary: no rash - Neurologic Neurologic: CNII-XII intact - Musculoskeletal Musculoskeletal: gait normal, strength equal bilaterally - Psychiatric Psychiatric: A&O x's 3, appropriate affect Results CBC & Chem 7: 01/17/19 02:40 01/17/19 02:40 Labs: Abnormal Lab Results - Last 24 Hours (Table) 01/17/19 01/17/19 01/17/19 Range/Units 02:40 02:40 02:40 WBC 11.8 H (3.8-10.6) k/uL Neutrophils # 10.4 H (1.3-7.7) k/uL APTT 21.9 L (22.0-30.0) sec Sodium 135 L (137-145) mmol/L Glucose 148 H (74-99) mg/dL Thrombosis Risk Factor Assmnt - DVT/VTE Prophylaxis DVT/VTE Prophylaxis: Pharmacologic Prophylaxis ordered Assessment and Plan Plan: 1. Acute respiratory distress without failure secondary to acute exacerbation of COPD. Continue DuoNeb treatments 4 times daily and as needed, Pulmicort 1 mg twice daily, a Zithromax 500 mg daily, Solu-Medrol milligrams every [address] Hudson . 2. History of coronary artery disease status post heart catheterization done at [facility] followed by transfer to [facility] for successful stenting of the mid RCA with bare metal stent. Continue aspirin 81 mg daily, Lipitor 80 mg at bedtime, Plavix 75 mg daily, Lopressor 25 mg twice daily. 3. Tobacco use and dependence. Smoking cessation. 4. Marijuana use for back pain. 5. Hypertension. Continue lisinopril 2.5 mg daily, Lopressor 6. DVT prophylaxis. 7. GI prophylaxis. Pepcid. Patient will be admitted to the hospital for a minimum of 2 nights stay. Discharge plan: Homeless. Consult with social work. Impression and plan of care have been directed as dictated by the signing physician. Daysi Nunn nurse practitioner acting as scribe for signing physician.
[2019-01-17 17:03] LABS: Glucose,Whole Blood 119 mg/dL (75-99)
[2019-01-17] MEDS ORDERED: BUDESONIDE 0.5 MG/2 ML NEBU INHALATION SCH (20:00)
[2019-01-17 20:13] LABS: Glucose,Whole Blood 203 mg/dL (75-99)
[2019-01-17] MEDS: HEPARIN SODIUM,PORCINE 5,000 UNIT/ML 1 ML VIAL SQ SCH (20:27)
[2019-01-17] MEDS: ASPIRIN 81 MG PO SCH (20:27)
[2019-01-17] MEDS: ATORVASTATIN 80 MG TAB PO SCH (20:27)
[2019-01-17] MEDS ORDERED: CALCIUM CARBONATE 500 MG CHEWABLE PO PRN (20:49)
[2019-01-17] MEDS: BUDESONIDE 1 MG/2 ML NEBU INHALATION SCH (21:29)
[2019-01-18] MEDS: methylPREDNISolone SOD SUCCI 125 MG/2 ML VIAL IV SCH ×2 (00:12→06:09)
[2019-01-18 07:16] LABS: Glucose,Whole Blood 121 mg/dL (75-99)
[2019-01-18] MEDS: IPRATROPIUM-ALBUTEROL 3 ML NEB INHALATION SCH ×4 (07:33→20:37)
[2019-01-18] MEDS: BUDESONIDE 1 MG/2 ML NEBU INHALATION SCH ×2 (07:33→20:37)
[2019-01-18] MEDS: INSULIN ASPART (NovoLOG) 100 UNIT/ML VIAL SQ SCH ×4 (08:33→20:48)
[2019-01-18] MEDS: CLOPIDOGREL 75 MG TAB PO SCH (08:51)
[2019-01-18] MEDS: METOPROLOL TARTRATE 25 MG TAB PO SCH ×2 (08:51→20:33)
[2019-01-18] MEDS: FAMOTIDINE 20 MG TAB PO SCH (08:51)
[2019-01-18] MEDS: HEPARIN SODIUM,PORCINE 5,000 UNIT/ML 1 ML VIAL SQ SCH ×2 (08:52→20:33)
[2019-01-18] MEDS: AZITHROMYCIN 500 MG TAB PO SCH (08:52)
--- NOTE | 2019-01-18 11:59 | P.CNPUL ---
History of Present Illness Consult date: 01/17/19 Reason for consult: dyspnea, cough Chief complaint: Shortness of breath cough and congestion History of present illness: This is a 58-year-old male with extensive history of smoking and nicotine use in the past he was recently hospitalized for unstable angina and found to have significant stenosis of RCA had a stent placed patient has some hemoptysis and wheezing thought to be related to inflammation of airway a computed tomography scan was negative for any significant masslike lesion was treated with antibiotics, hemoptysis no thought to be related to and multiple anticoagulants, patient stabilized on breathing treatment was discharged to [facility], patient lost his room in the [facility] came back again with severe wheezing as he was not getting his breathing treatments has been having nonproductive cough as well no admitted with COPD exacerbation Review of Systems All systems: negative Past Medical History Past Medical History: Coronary Artery Disease (CAD), COPD, Myocardial Infarction ([place]) Additional Past Medical History / Comment(s): Pt states he has hx of 3 respiratory arrests and was vented, generalized arthritis, Last Myocardial Infarction Date:: History of Any Multi-Drug Resistant Organisms: None Reported Past Surgical History: Adenoidectomy, Heart Catheterization With Stent, Hernia Repair, Joint Replacement, Orthopedic Surgery, Tonsillectomy Additional Past Surgical History / Comment(s): R inguinal hernia repair, L rotator cuff repair, bialteral total knee arthroplasties, R shoulder spur removal, teeth extracted, colonoscopy-normal. third hernia repair, left side Past Anesthesia/Blood Transfusion Reactions: No Reported Reaction Date of Last Stent Placement:: 2018 Past Psychological History: No Psychological Hx Reported Smoking Status: Former smoker Past Alcohol Use History: None Reported Additional Past Alcohol Use History / Comment(s): Patient was a smoker of up to 5-6 packs per day for over 2 years but smoked from a total of 43 years. He was recently done a 4-5 cigarettes per day and stopped on December 29. He uses marijuana daily. He is recovering alcoholic and he drinks alcohol rarely at this point and his last intake was 3-4 weeks ago. He has history of illicit drug use including Phen-Fen a means, LSD, cocaine, heroin and quit all of this 9 years ago. 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 Past Drug Use History: None Reported - Past Family History Father Family Medical History: Cancer Additional Family Medical History / Comment(s): Father of lung cancer at the age of 62. He was a smoker. Mother Family Medical History: Diabetes Mellitus, Hypertension Additional Family Medical History / Comment(s): Mother at age 78 from brainstem cancer. Brother(s) Additional Family Medical History / Comment(s): Patient's 1 brother with history of AAA. Patient has 4 sisters and he does not know any of their medical history. Patient's 1 son and 1 daughter living. He had one daughter that at 7 weeks old from a congenital heart. Medications and Allergies Home Medications Medication Instructions Recorded Confirmed Type Albuterol Sulfate [Ventolin HFA] 2 puff INHALATION RT-Q6H PRN 09/07/14 01/17/19 History Albuterol Nebulized [Ventolin 2.5 mg INHALATION RT-Q4H PRN 03/03/16 01/17/19 History Nebulized] Arformoterol Tartrate [Brovana] 15 mcg INHALATION RT-BID 03/03/16 01/17/19 History Budesonide [Pulmicort] 0.5 mg INHALATION RT-BID 03/03/16 01/17/19 History Ipratropium Nebulized [Atrovent 0.5 mg INHALATION RT-BID 03/23/17 01/17/19 History Nebulized 0.2 MG/ML] Clopidogrel Bisulfate [Plavix] 75 mg PO DAILY #90 tab 12/30/18 01/17/19 Rx Metoprolol Tartrate [Lopressor] 25 mg PO BID #180 tablet 12/30/18 01/17/19 Rx Famotidine [Pepcid] 20 mg PO DAILY #30 tab 01/01/19 01/17/19 Rx predniSONE See Taper PO DIRECTED 01/01/19 01/17/19 History Aspirin 81 mg PO HS 01/06/19 01/17/19 History Atorvastatin [Lipitor] 80 mg PO HS 01/06/19 01/17/19 History Allergies Allergy/AdvReac Type Severity Reaction Status Date / Time levofloxacin [From Levaquin] AdvReac Nausea & Verified 01/17/19 08:14 Vomiting & Diarrhea Physical Exam Vitals: Vital Signs Temp Pulse Pulse Resp BP BP Pulse Ox 01/17/19 17:06 92 16 01/17/19 16:55 90 16 01/17/19 16:00 98.6 F 96 18 134/72 97 10/22/19 12:05 98.5 F 95 16 144/84 96 01/17/19 10:42 92 01/17/19 10:31 90 01/17/19 08:11 93 01/17/19 07:55 93 01/17/19 06:55 63 16 126/76 98 01/17/19 02:40 85 21 109/76 97 01/17/19 02:16 83 22 108/80 91 L 01/17/19 01:10 75 18 01/17/19 00:40 74 22 01/17/19 00:16 97 01/17/19 00:13 98.4 F 81 26 H 125/84 96 Intake and Output 01/17/19 01/17/19 01/17/19 06:59 14:59 22:59 Other: # Voids 1 Weight 84.822 kg - Constitutional General appearance: average body habitus, cooperative, disheveled, mild distress - EENT Eyes: EOMI, PERRLA, dentition normal, poor dentition, normal appearance ENT: normal oropharynx Ears: bilateral: normal - Neck Neck: normal ROM Carotids: bilateral: upstroke normal Thyroid: bilateral: normal size - Respiratory Respiratory: bilateral: diminished, rhonchi, wheezing, prolonged expiration, negative: CTA, dullness, rales, prolonged inspiration - Cardiovascular Rhythm: regular Heart sounds: normal: S1, S2 - Gastrointestinal General gastrointestinal: normal bowel sounds, soft - Integumentary Integumentary: normal, normal turgor - Neurologic Neurologic: CNII-XII intact - Musculoskeletal Musculoskeletal: gait normal, generalized weakness, strength equal bilaterally - Psychiatric Psychiatric: A&O x's 3, appropriate affect, intact judgment & insight Results - Laboratory Findings CBC and BMP: 01/17/19 02:40 01/17/19 02:40 PT/INR, D-dimer PT 9.5 sec (9.0-12.0) 01/17/19 02:40 INR 0.9 (<1.2) 01/17/19 02:40 Abnormal lab findings: Abnormal Labs 01/17/19 01/17/19 01/17/19 02:40 02:40 02:40 WBC 11.8 H Neutrophils # 10.4 H APTT 21.9 L Sodium 135 L Glucose 148 H POC Glucose (mg/dL) 01/17/19 01/17/19 12:47 17:02 WBC Neutrophils # APTT Sodium Glucose POC Glucose (mg/dL) 174 H 119 H - Diagnostic Findings Chest x-ray: report reviewed, image reviewed (No active process consistent with severe COPD) Assessment and Plan Assessment: Acute COPD exacerbation Tracheobronchitis Coronary artery disease with history of stent in RCA recently Generalized anxiety disorder Hypertension hypertensive cardiovascular disease Plan: IV steroids Breathing treatments Continue home medications Oral antibiotics Increase activity as tolerated Further recommendations pending plan of care as per clinical response of the patient Time with Patient: Greater than 30
--- NOTE | 2019-01-18 12:06 | P.PN ---
Subjective Progress Note Date: 01/18/19 Principal diagnosis: Acute COPD exacerbation, coronary artery disease, tracheobronchitis, hypertension hypertensive cardiovascular disease, dyslipidemia 01/18/2019, patient seen eval examined he is sitting upright getting breathing treatment feels slightly better with still have exertional shortness of breath intermittent dry cough is present severity or wheezing has improved significantly from yesterday labs reviewed medications reviewed care plan discussed with patient respiratory therapist at length, continue current therapeutic plan hopefully we'll taper steroids and next 24-48 hours and possibly going home by Wednesday This is a 58-year-old male with extensive history of smoking and nicotine use in the past he was recently hospitalized for unstable angina and found to have significant stenosis of RCA had a stent placed patient has some hemoptysis and wheezing thought to be related to inflammation of airway a computed tomography scan was negative for any significant masslike lesion was treated with antibiotics, hemoptysis no thought to be related to and multiple anticoagulants, patient stabilized on breathing treatment was discharged to long-term, patient lost his room in the long-term came back again with severe wheezing as he was not getting his breathing treatments has been having nonproductive cough as well no admitted with COPD exacerbation Objective - Vital Signs Vital signs: Vital Signs Temp 98 F 01/18/19 07:00 Pulse 90 01/18/19 11:25 Resp 12 01/18/19 07:00 BP 146/68 01/18/19 07:00 Pulse Ox 100 01/18/19 07:00 Intake & Output 01/17/19 01/18/19 01/18/19 18:59 06:59 18:59 Other: # Voids 1 2 - Exam Constitutional General appearance: average body habitus, cooperative, disheveled, mild distress - EENT Eyes: EOMI, PERRLA, dentition normal, poor dentition, normal appearance ENT: normal oropharynx Ears: bilateral: normal - Neck Neck: normal ROM Carotids: bilateral: upstroke normal Thyroid: bilateral: normal size - Respiratory Respiratory: bilateral: diminished, rhonchi, wheezing, prolonged expiration, negative: CTA, dullness, rales, prolonged inspiration - Cardiovascular Rhythm: regular Heart sounds: normal: S1, S2 - Gastrointestinal General gastrointestinal: normal bowel sounds, soft - Integumentary Integumentary: normal, normal turgor - Neurologic Neurologic: CNII-XII intact - Musculoskeletal Musculoskeletal: gait normal, generalized weakness, strength equal bilaterally - Psychiatric Psychiatric: A&O x's 3, appropriate affect, intact judgment & insight - Labs CBC & Chem 7: 01/17/19 02:40 01/17/19 02:40 Labs: Abnormal Lab Results - Last 24 Hours (Table) 01/17/19 01/17/19 01/17/19 Range/Units 12:47 17:02 20:12 POC Glucose (mg/dL) 174 H 119 H 203 H (75-99) mg/dL 01/18/19 Range/Units 07:14 POC Glucose (mg/dL) 121 H (75-99) mg/dL Assessment and Plan Assessment: Acute COPD exacerbation Tracheobronchitis Coronary artery disease with history of stent in RCA recently Generalized anxiety disorder Hypertension hypertensive cardiovascular disease Plan: IV steroids Breathing treatments Continue home medications Oral antibiotics Increase activity as tolerated Further recommendations pending plan of care as per clinical response of the patient Time with Patient: Greater than 30
[2019-01-18 12:07] LABS: Glucose,Whole Blood 113 mg/dL (75-99)
--- NOTE | 2019-01-18 16:47 | P.PN ---
Subjective Progress Note Date: 01/18/19 This is a 58-year-old male patient of Dr. Arias with past medical history of COPD, coronary artery disease status post stenting of the mid RCA with bare metal stent, hyperlipidemia, nicotine dependence, history of IV drug abuse, history of marijuana abuse, history of alcohol abuse. Patient was recently seen in the emergency center at [facility] for acute hypoxic respiratory failure secondary to COPD exacerbation and acute chest pain with nonspecific ST-T wave changes on EKG. Patient underwent a heart catheterization with Dr. 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 De Luna. Acute exacerbation of COPD was stabilized and he was discharged to a longterm. Patient now states that he is living in his truck as he was kicked out of the longterm for unknown reason. He was staying at the [facility] [place]. He states he was kicked out on January 10. Patient states that he has been able to use his nebulizer in his truck but it has not been helping with increasing shortness of breath and cough. He states he has a little yellow and little blood in his sputum. He states he parked in the hospital parking lot so that if he needed to come in the hospital he will be close by if he needs any treatment. He states he has had follow-up with Dr. Hudson, Dr. Arias and Dr. De Luna last week. He had an ultrasound of the carotids done yesterday Dr. De Luna's office and is scheduled later this month for stress test and some other testing with a follow-up appointment scheduled on February 06 to obtain results of all testing. Patient came into [facility] emergency center for evaluation. Chest x-ray reveals no cardiopulmonary disease. WBC 11.8, sodium 135, blood sugar 148, troponin negative. EKG sinus rhythm with no acute ST-T wave changes. Patient ordered for [place] to the [facility] floor and consult has been added for Dr. Hudson. 01/18: The patient's breathing is a little bit better today but he states he continues to have increasing shortness of breath with ambulation. He was able to walk to the end of the grewal but had to rest. He did have some pressure in his chest but not bad. His phlegm is less color. He complains of heartburn during the night. He has difficulty with shortness of breath with talking. Patient has been seen by Dr. Hudson. We will decrease Solu-Medrol to 40 mg every 8 hours. He remains afebrile, heart rate 90, blood pressure 120/73, pulse ox 90% on 3 L nasal cannula, pulse ox 94% on room air. Anticipate possible discharge by tomorrow. Objective - Vital Signs Vital signs: Vital Signs Temp 98 F 01/18/19 07:00 Pulse 90 01/18/19 11:25 Resp 12 01/18/19 07:00 BP 146/68 01/18/19 07:00 Pulse Ox 100 01/18/19 07:00 Intake & Output 01/17/19 01/18/19 01/18/19 18:59 06:59 18:59 Other: # Voids 1 2 - Exam Review of Systems Constitutional: Reports fatigue, Denies anorexia, Denies chills, Denies fever, Denies lethargy, Denies malaise, Denies night sweats, Denies poor appetite Ears, nose, mouth and throat: Denies dysphagia, Denies headache, Denies nasal congestion, Denies nasal discharge, Denies sore throat, Denies vertigo Cardiovascular: Reports decreased exercise tolerance, Reports dyspnea on exertion, Reports shortness of breath, Denies chest pain, Denies leg edema, Denies lightheadedness, Denies orthopnea, Denies syncope Respiratory: Reports congestion, Reports cough with sputum, Reports dyspnea, Reports respiratory infections, Reports wheezing, Denies excessive sputum, Denies hemoptysis, Denies home oxygen Gastrointestinal: Denies abdominal pain, Denies diarrhea, Denies loss of appet ite, Denies nausea, Denies vomiting Genitourinary: Denies dysuria, Denies urinary frequency, Denies urinary retention Musculoskeletal: Denies frequent falls, Denies gait dysfunction, Denies muscle weakness, Denies myalgias Integumentary: Denies pruritus, Denies rash, Denies wounds Neurological: Denies change in mentation, Denies change in speech, Denies numbness, Denies seizures, Denies weakness Psychiatric: Denies anxiety, Denies depression Endocrine: Denies fatigue, Denies weight change - Constitutional General appearance: cooperative, no acute distress, obese - EENT Eyes: anicteric sclerae, PERRLA, normal appearance ENT: hearing grossly normal on the left ear, hearing is impaired on the right ear. There is significant tenderness to the scalp around the ear, ear auricle itself and anterior lateral neck area. No rash noted. - Neck Neck: no lymphadenopathy, normal ROM, no other, no rigidity, no stridor, no thyromegaly - Respiratory Respiratory: bilateral: Scattered expiratory wheezes negative: diminished, dullness, rales, rhonchi - Cardiovascular Rhythm: regular Heart sounds: normal: S1, S2 Abnormal Heart Sounds: no systolic murmur, no diastolic murmur, no rub, no S3 Gallop, no S4 Gallop, no click, no other - Gastrointestinal General gastrointestinal: normal bowel sounds, soft - Integumentary Integumentary: no rash - Neurologic Neurologic: CNII-XII intact - Musculoskeletal Musculoskeletal: gait normal, strength equal bilaterally - Psychiatric Psychiatric: A&O x's 3, appropriate affect - Labs CBC & Chem 7: 01/17/19 02:40 01/17/19 02:40 Labs: Abnormal Lab Results - Last 24 Hours (Table) 01/17/19 01/17/19 01/17/19 Range/Units 12:47 17:02 20:12 POC Glucose (mg/dL) 174 H 119 H 203 H (75-99) mg/dL 01/18/19 Range/Units 07:14 POC Glucose (mg/dL) 121 H (75-99) mg/dL Assessment and Plan Plan: 1. Acute respiratory distress without failure secondary to acute exacerbation of COPD. Continue DuoNeb treatments 4 times daily and as needed, Pulmicort 1 mg twice daily, a Zithromax 500 mg daily, Solu-Medrol decreased to 40 mg every [address] Tristan rey. 2. History of coronary artery disease status post heart catheterization done at [facility] followed by transfer to [facility] for successful stenting of the mid RCA with bare metal stent. Continue aspirin 81 mg daily, Lipitor 80 mg at bedtime, Plavix 75 mg daily, Lopressor 25 mg twice daily. 3. Tobacco use and dependence. Smoking cessation. 4. Marijuana use for back pain. 5. Hypertension. Continue lisinopril 2.5 mg daily, Lopressor 6. DVT prophylaxis. 7. GI prophylaxis. Pepcid. Discharge plan: Homeless. Consult with social work. Impression and plan of care have been directed as dictated by the signing physician. Daysi Nunn nurse practitioner acting as scribe for signing physician.
[2019-01-18 16:52] LABS: Glucose,Whole Blood 117 mg/dL (75-99)
[2019-01-18] MEDS: methylPREDNISolone SOD SUCCI 40 MG/ML 1 ML VIAL IV SCH ×2 (17:12→23:22)
[2019-01-18 20:22] LABS: Glucose,Whole Blood 148 mg/dL (75-99)
[2019-01-18] MEDS: ATORVASTATIN 80 MG TAB PO SCH (20:33)
[2019-01-18] MEDS: ASPIRIN 81 MG PO SCH (20:33)
[2019-01-19] MEDS: IPRATROPIUM-ALBUTEROL 3 ML NEB INHALATION SCH ×2 (06:53→11:24)
[2019-01-19] MEDS: BUDESONIDE 1 MG/2 ML NEBU INHALATION SCH (06:54)
[2019-01-19 07:33] LABS: Glucose,Whole Blood 112 mg/dL (75-99)
[2019-01-19] MEDS: INSULIN ASPART (NovoLOG) 100 UNIT/ML VIAL SQ SCH ×2 (07:41→12:17)
[2019-01-19] MEDS: HEPARIN SODIUM,PORCINE 5,000 UNIT/ML 1 ML VIAL SQ SCH (07:56)
[2019-01-19] MEDS: methylPREDNISolone SOD SUCCI 40 MG/ML 1 ML VIAL IV SCH (07:57)
[2019-01-19] MEDS: AZITHROMYCIN 500 MG TAB PO SCH (07:57)
[2019-01-19] MEDS: METOPROLOL TARTRATE 25 MG TAB PO SCH (07:58)
[2019-01-19] MEDS: CLOPIDOGREL 75 MG TAB PO SCH (07:58)
[2019-01-19] MEDS: FAMOTIDINE 20 MG TAB PO SCH (07:58)
[2019-01-19 08:19] VITALS: BP 120/58; RESP 16; TEMP 97.6
[2019-01-19 11:49] LABS: Glucose,Whole Blood 100 mg/dL (75-99)
[2019-01-19 14:47] VITALS: PULSE 83
--- NOTE | 2019-01-19 15:49 | P.DS ---
Providers Date of admission: 01/19/19 09:54 Expected date of discharge: 01/19/19 Attending physician: Kirby Christian Consults: 01/17/19 09:56 Consult Physician Routine Consulting Provider: Gabriel Hudson Consult Reason/Comments: COPD Do you want consulting provider notified?: Yes Primary care physician: Bear Arias [facility] Course: This is a 58-year-old male patient of Dr. Arias with past medical history of COPD, coronary artery disease status post stenting of the mid RCA with bare metal stent, hyperlipidemia, nicotine dependence, history of IV drug abuse, history of marijuana abuse, history of alcohol abuse. Patient was recently seen in the emergency center at [facility] for acute hypoxic respiratory failure secondary to COPD exacerbation and acute chest pain with nonspecific ST-T wave changes on EKG. Patient underwent a heart catheterization with Dr. 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 De Luna. Acute exacerbation of COPD was stabilized and he was discharged to a nursing home. Patient now states that he is living in his truck as he was kicked out of the nursing home for unknown reason. He was staying at the [facility] [place]. He states he was kicked out on January 10. Patient states that he has been able to use his nebulizer in his truck but it has not been helping with increasing shortness of breath and cough. He states he has a little yellow and little blood in his sputum. He states he parked in the hospital parking lot so that if he needed to come in the hospital he will be close by if he needs any treatment. He states he has had follow-up with Dr. Hudson, Dr. Arias and Dr. De Luna last week. He had an ultrasound of the carotids done yesterday Dr. De Luna's office and is scheduled lat er this month for stress test and some other testing with a follow-up appointment scheduled on February 06 to obtain results of all testing. Patient came into [facility] emergency center for evaluation. Chest x-ray reveals no cardiopulmonary disease. WBC 11.8, sodium 135, blood sugar 148, troponin negative. EKG sinus rhythm with no acute ST-T wave changes. Patient ordered for [place] to the [facility] floor and consult has been added for Dr. Hudson. 01/18: The patient's breathing is a little bit better today but he states he continues to have increasing shortness of breath with ambulation. He was able to walk to the end of the grewal but had to rest. He did have some pressure in his chest but not bad. His phlegm is less color. He complains of heartburn during the night. He has difficulty with shortness of breath with talking. Patient has been seen by Dr. Hudson. We will decrease Solu-Medrol to 40 mg every 8 hours. He remains afebrile, heart rate 90, blood pressure 120/73, pulse ox 90% on 3 L nasal cannula, pulse ox 94% on room air. Anticipate possible discharge by tomorrow. 01/19: Patient has been afebrile, heart rate 98, blood pressure 120/58, pulse ox 97% on room air. Capillary blood glucose running between 101 48. The patient states that today his breathing is quite a bit better from yesterday. He also states that he has met with social work and there is no hope that they can do for area patient is planning to be discharged and living in his truck. Discharge diagnoses: 1. Acute respiratory distress without failure secondary to acute exacerbation of COPD. 2. History of coronary artery disease status post heart catheterization done at [facility] followed by transfer to [facility] for success ful stenting of the mid RCA with bare metal stent. 3. Tobacco use and dependence. Smoking cessation. 4. Marijuana use for back pain. 5. Hypertension. Discharge plan: Homeless. Impression and plan of care have been directed as dictated by the signing physician. Daysi Nunn nurse practitioner acting as scribe for signing physician. Patient Condition at Discharge: Good Plan - Discharge Summary Discharge Rx Participant: No New Discharge Prescriptions: New predniSONE 0 mg PO DIRECTED #30 tab Azithromycin [Zithromax] 500 mg PO DAILY #3 tab Continue Albuterol Sulfate [Ventolin HFA] 2 puff INHALATION RT-Q6H PRN PRN Reason: Shortness Of Breath Budesonide [Pulmicort] 0.5 mg INHALATION RT-BID Arformoterol Tartrate [Brovana] 15 mcg INHALATION RT-BID Albuterol Nebulized [Ventolin Nebulized] 2.5 mg INHALATION RT-Q4H PRN PRN Reason: Shortness Of Breath Ipratropium Nebulized [Atrovent Nebulized 0.2 MG/ML] 0.5 mg INHALATION RT-BID Metoprolol Tartrate [Lopressor] 25 mg PO BID #180 tablet Clopidogrel Bisulfate [Plavix] 75 mg PO DAILY #90 tab Famotidine [Pepcid] 20 mg PO DAILY #30 tab predniSONE See Taper PO DIRECTED Aspirin 81 mg PO HS Atorvastatin [Lipitor] 80 mg PO HS Discharge Medication List Albuterol Sulfate [Ventolin HFA] 2 puff INHALATION RT-Q6H PRN 09/07/14 [History] Albuterol Nebulized [Ventolin Nebulized] 2.5 mg INHALATION RT-Q4H PRN 03/03/16 [History] Arformoterol Tartrate [Brovana] 15 mcg INHALATION RT-BID 03/03/16 [History] Budesonide [Pulmicort] 0.5 mg INHALATION RT-BID 03/03/16 [History] Ipratropium Nebulized [Atrovent Nebulized 0.2 MG/ML] 0.5 mg INHALATION RT-BID 03/23/17 [History] Clopidogrel Bisulfate [Plavix] 75 mg PO DAILY #90 tab 12/30/18 [Rx] Metoprolol Tartrate [Lopressor] 25 mg PO BID #180 tablet 12/30/18 [Rx] Famotidine [Pepcid] 20 mg PO DAILY #30 tab 01/01/19 [Rx] predniSONE See Taper PO DIRECTED 01/01/19 [History] Aspirin 81 mg PO HS 01/06/19 [History] Atorvastatin [Lipitor] 80 mg PO HS 01/06/19 [History] Azithromycin [Zithromax] 500 mg PO DAILY #3 tab 01/19/19 [Rx] predniSONE 0 mg PO DIRECTED #30 tab 01/19/19 [Rx] Follow up Appointment(s)/Referral(s): Bear Arias MD [Primary Care Provider] - 01/24/19 2:15 pm Gabriel Hudson MD [STAFF PHYSICIAN] - 01/26/19 10:15 am Discharge Disposition: HOME SELF-CARE
== END 2019-01-19 13:57 | disposition home or self-care (01) | DRG 192 ==
LOC: EC 23:56 → 3NMEDONC 01-17 04:22 → 4SSUR 01-17 11:23 → OBSVTOIN 01-19 09:54
PROVIDERS: ADMIT Internal Medicine; ATTEND Internal Medicine
DX: J44.0 Chronic obstructive pulmonary disease with (acute) lower respiratory infection (principal); J44.1 Chronic obstructive pulmonary disease with (acute) exacerbation; D72.829 Elevated white blood cell count, unspecified; E78.5 Hyperlipidemia, unspecified; F10.21 Alcohol dependence, in remission; F41.1 Generalized anxiety disorder; I11.9 Hypertensive heart disease without heart failure; I25.10 Atherosclerotic heart disease of native coronary artery without angina pectoris; I25.2 Old myocardial infarction; M13.0 Polyarthritis, unspecified; T38.0X5A Adverse effect of glucocorticoids and synthetic analogues, initial encounter; Z59.0 Homelessness; Z72.0 Tobacco use; Z77.090 Contact with and (suspected) exposure to asbestos; Z79.02 Long term (current) use of antithrombotics/antiplatelets; Z79.82 Long term (current) use of aspirin; Z79.899 Other long term (current) drug therapy; Z80.1 Family history of malignant neoplasm of trachea, bronchus and lung; J20.9 Acute bronchitis, unspecified; Z80.8 Family history of malignant neoplasm of other organs or systems; R06.03 Acute respiratory distress; Z82.49 Family history of ischemic heart disease and other diseases of the circulatory system; Z83.3 Family history of diabetes mellitus; Z95.5 Presence of coronary angioplasty implant and graft
CPT/HCPCS: 36415; 71046; 80053; 83735; 84484; 85025; 85610; 85730; 93005; 94640; 96361; 96374; 99291

== ENCOUNTER 2019-03-24 07:49 | Emergency (ER) | payer MEDICARE, OTHER ==
[2019-03-24] MEDS ORDERED: SODIUM CHLORIDE 0.9% 500 ML 500 ML IV STA (08:22)
[2019-03-24] MEDS ORDERED: ALBUTEROL NEBULIZED 2.5 MG/3 ML INHALATION STA (08:22)
[2019-03-24] MEDS ORDERED: IPRATROPIUM 0.5 MG/2.5 ML NEBU INHALATION STA (08:22)
[2019-03-24] MEDS ORDERED: methylPREDNISolone SOD SUCCI 125 MG/2 ML VIAL IV STA (08:22)
[2019-03-24] MEDS ORDERED: cefTRIAXone IN SWFI 1,000 MG/10 ML SYRINGE IVP STA (08:25)
--- NOTE | 2019-03-24 08:34 | ED ---
General Adult HPI - General Chief complaint: Shortness of Breath Stated complaint: COPD, cough Time Seen by Provider: 03/24/19 07:55 Source: patient, RN notes reviewed, old records reviewed Mode of arrival: ambulatory Limitations: no limitations - History of Present Illness Initial comments: Social 58-year-old male who presents to the emergency department with a past medical history of COPD. Patient states over the last couple of days he's been coughing quite a bit coughing up quite a bit of green sputum. Patient states she's also been short of breath. Patient denies any chest pain or palpitations. Patient denies any fever or chills. Patient states he still smokes. Patient denies any abdominal pain patient denies nausea vomiting diarrhea. Patient denies any lightheadedness or dizziness. Patient denies any leg swelling or calf tenderness. - Related Data Home Medications Medication Instructions Recorded Confirmed Albuterol Sulfate [Ventolin HFA] 2 puff INHALATION RT-Q6H PRN 09/07/14 01/17/19 Albuterol Nebulized [Ventolin 2.5 mg INHALATION RT-Q4H PRN 03/03/16 01/17/19 Nebulized] Arformoterol Tartrate [Brovana] 15 mcg INHALATION RT-BID 03/03/16 01/17/19 Budesonide [Pulmicort] 0.5 mg INHALATION RT-BID 03/03/16 01/17/19 Ipratropium Nebulized [Atrovent 0.5 mg INHALATION RT-BID 03/23/17 01/17/19 Nebulized 0.2 MG/ML] predniSONE See Taper PO DIRECTED 01/01/19 01/17/19 Aspirin 81 mg PO HS 01/06/19 01/17/19 Atorvastatin [Lipitor] 80 mg PO HS 01/06/19 01/17/19 Previous Rx's Medication Instructions Recorded Clopidogrel Bisulfate [Plavix] 75 mg PO DAILY #90 tab 12/30/18 Metoprolol Tartrate [Lopressor] 25 mg PO BID #180 tablet 12/30/18 Famotidine [Pepcid] 20 mg PO DAILY #30 tab 01/01/19 Azithromycin [Zithromax] 500 mg PO DAILY #3 tab 01/19/19 predniSONE 0 mg PO DIRECTED #30 tab 01/19/19 Azithromycin [Zithromax Tri-Alfredo] 500 mg PO DAILY #3 tab 12/27/19 predniSONE 40 mg PO DAILY #8 tab 03/24/19 Allergies Allergy/AdvReac Type Severity Reaction Status Date / Time levofloxacin [From Levaquin] AdvReac Nausea & Verified 03/24/19 07:55 Vomiting & Diarrhea Review of Systems ROS Statement: Those systems with pertinent positive or pertinent negative responses have been documented in the HPI. ROS Other: All systems not noted in ROS Statement are negative. Past Medical History Past Medical History: Coronary Artery Disease (CAD), COPD, Myocardial Infarction ([place]) Additional Past Medical History / Comment(s): Pt states he has hx of 3 respirat ory arrests and was vented, generalized arthritis, Last Myocardial Infarction Date:: History of Any Multi-Drug Resistant Organisms: None Reported Past Surgical History: Adenoidectomy, Heart Catheterization With Stent, Hernia Repair, Joint Replacement, Orthopedic Surgery, Tonsillectomy Additional Past Surgical History / Comment(s): R inguinal hernia repair, L rotator cuff repair, bialteral total knee arthroplasties, R shoulder spur removal, teeth extracted, colonoscopy-normal. third hernia repair, left side Past Anesthesia/Blood Transfusion Reactions: No Reported Reaction Date of Last Stent Placement:: 2018 Past Psychological History: No Psychological Hx Reported Smoking Status: Current some day smoker Past Alcohol Use History: None Reported Past Drug Use History: Marijuana - Past Family History Father Family Medical History: Cancer Additional Family Medical History / Comment(s): Father of lung cancer at the age of 62. He was a smoker. Mother Family Medical History: Diabetes Mellitus, Hypertension Additional Family Medical History / Comment(s): Mother at age 78 from brainstem cancer. Brother(s) Additional Family Medical History / Comment(s): Patient's 1 brother with history of AAA. Patient has 4 sisters and he does not know any of their medical history. Patient's 1 son and 1 daughter living. He had one daughter that at 7 weeks old from a congenital heart. General Exam - General Exam Comments Initial Comments: GENERAL: Patient is well-developed and well-nourished. Patient is nontoxic and well- hydrated and is in mild distress. ENT: Neck is soft and supple. No significant lymphadenopathy is noted. Oropharynx is clear. Moist mucous membranes. Neck has full range of motion without eliciting any pain. EYES: The sclera were anicteric and conjunctiva were pink and moist. Extraocular movements were intact and pupils were equal round and reactive to light. Eyelids were unremarkable. PULMONARY: Unlabored respirations. Good breath sounds bilaterally. Patient also has expiratory wheezing CARDIOVASCULAR: There is a regular rate and rhythm without any murmurs gallops or rubs. ABDOMEN: Soft and nontender with normal bowel sounds. No palpable organomegaly was noted. There is no palpable pulsatile mass. SKIN: Skin is clear with no lesions or rashes and otherwise unremarkable. NEUROLOGIC: Patient is alert and oriented x3. Cranial nerves II through XII are grossly intact. Motor and sensory are also intact. Normal speech, volume and content. Symmetrical smile. MUSCULOSKELETAL: Normal extremities with adequate strength and full range of motion. No lower extremity swelling or edema. No calf tenderness. LYMPHATICS: No significant lymphadenopathy is noted PSYCHIATRIC: Normal psychiatric evaluation. Limitations: no limitations Course Vital Signs 03/24/19 03/24/19 03/24/19 07:52 08:03 08:41 Temperature 98.9 F Pulse Rate 94 78 Respiratory 24 18 Rate Blood Pressure 143/89 O2 Sat by Pulse 100 Oximetry 03/24/19 08:53 Temperature Pulse Rate 88 Respiratory Rate Blood Pressure O2 Sat by Pulse Oximetry Medical Decision Making - Medical Decision Making EKG shows normal sinus rhythm at 89 bpm [place] interval 160 QRS is 96 QT interval 356 QTC is 433. Patient's EKG shows no ST segment elevation or depression. Chest x-ray shows no acute abnormality. I will back and reevaluated the patient is feeling considerably better. Patient was oxygenating 90% on room air. Patient's lungs were clear when I listened to him and there is no wheezing at this time. Patient had no crackles in the basis of this time. - Lab Data Result diagrams: 03/24/19 08:08 03/24/19 08:08 Lab Results 03/24/19 03/24/19 03/24/19 Range/Units 08:08 08:08 08:08 WBC 13.5 H (3.8-10.6) k/uL RBC 4.74 (4.30-5.90) m/uL Hgb 14.3 (13.0-17.5) gm/dL Hct 41.2 (39.0-53.0) % MCV 86.9 (80.0-100.0) fL MCH 30.1 (25.0-35.0) pg MCHC 34.6 (31.0-37.0) g/dL RDW 13.3 (11.5-15.5) % Plt Count 221 (150-450) k/uL Neutrophils % 78 % Lymphocytes % 15 % Monocytes % 4 % Eosinophils % 1 % Basophils % 1 % Neutrophils # 10.5 H (1.3-7.7) k/uL Lymphocytes # 2.1 (1.0-4.8) k/uL Monocytes # 0.6 (0-1.0) k/uL Eosinophils # 0.1 (0-0.7) k/uL Basophils # 0.1 (0-0.2) k/uL PT (9.0-12.0) sec INR (<1.2) APTT (22.0-30.0) sec Sodium 139 (137-145) mmol/L Potassium 4.0 (3.5-5.1) mmol/L Chloride 105 (98-107) mmol/L Carbon Dioxide 23 (22-30) mmol/L Anion Gap 11 mmol/L BUN 13 (9-20) mg/dL Creatinine 0.80 (0.66-1.25) mg/dL Est GFR (CKD-EPI)AfAm >90 (>60 ml/min/1.73 sqM) Est GFR (CKD-EPI)NonAf >90 (>60 ml/min/1.73 sqM) Glucose 135 H (74-99) mg/dL Plasma Lactic Acid Rito 1.3 (0.7-2.0) mmol/L Calcium 9.5 (8.4-10.2) mg/dL Magnesium 2.0 (1.6-2.3) mg/dL Total Bilirubin 1.0 (0.2-1.3) mg/dL AST 24 (17-59) U/L ALT 21 (4-49) U/L Alkaline Phosphatase 107 (38-126) U/L Troponin I (0.000-0.034) ng/mL NT-Pro-B Natriuret Pep pg/mL Total Protein 7.2 (6.3-8.2) g/dL Albumin 4.3 (3.5-5.0) g/dL 03/24/19 03/24/19 03/24/19 Range/Units 08:08 08:08 08:08 WBC (3.8-10.6) k/uL RBC (4.30-5.90) m/uL Hgb (13.0-17.5) gm/dL Hct (39.0-53.0) % MCV (80.0-100.0) fL MCH (25.0-35.0) pg MCHC (31.0-37.0) g/dL RDW (11.5-15.5) % Plt Count (150-450) k/uL Neutrophils % % Lymphocytes % % Monocytes % % Eosinophils % % Basophils % % Neutrophils # (1.3-7.7) k/uL Lymphocytes # (1.0-4.8) k/uL Monocytes # (0-1.0) k/uL Eosinophils # (0-0.7) k/uL Basophils # (0-0.2) k/uL PT 9.5 (9.0-12.0) sec INR 0.9 (<1.2) APTT 25.1 (22.0-30.0) sec Sodium (137-145) mmol/L Potassium (3.5-5.1) mmol/L Chloride (98-107) mmol/L Carbon Dioxide (22-30) mmol/L Anion Gap mmol/L BUN (9-20) mg/dL Creatinine (0.66-1.25) mg/dL Est GFR (CKD-EPI)AfAm (>60 ml/min/1.73 sqM) Est GFR (CKD-EPI)NonAf (>60 ml/min/1.73 sqM) Glucose (74-99) mg/dL Plasma Lactic Acid Rito (0.7-2.0) mmol/L Calcium (8.4-10.2) mg/dL Magnesium (1.6-2.3) mg/dL Total Bilirubin (0.2-1.3) mg/dL AST (17-59) U/L ALT (4-49) U/L Alkaline Phosphatase (38-126) U/L Troponin I <0.012 (0.000-0.034) ng/mL NT-Pro-B Natriuret Pep 58 pg/mL Total Protein (6.3-8.2) g/dL Albumin (3.5-5.0) g/dL Disposition Clinical Impression: Acute exacerbation of chronic obstructive airways disease, Acute bronchitis Disposition: HOME SELF-CARE Instructions (If sedation given, give patient instructions): Acute Bronchitis (ED) Prescriptions: predniSONE 40 mg PO DAILY #8 tab Azithromycin [Zithromax Tri-Alfredo] 500 mg PO DAILY #3 tab Is patient prescribed a controlled substance at d/c from ED?: No Referrals: Bear Arias MD [Primary Care Provider] - 1-2 days Time of Disposition: 09:46
[2019-03-24 08:42] LABS: Basophils # (A) 0.1 k/uL (0-0.2); Basophils % (A) 1 %; Eosinophils # (A) 0.1 k/uL (0-0.7); Eosinophils % (A) 1 %; HCT 41.2 % (39.0-53.0); HGB 14.3 gm/dL (13.0-17.5); Lymphocytes # (A) 2.1 k/uL (1.0-4.8); Lymphocytes % (A) 15 %; MCH 30.1 pg (25.0-35.0); MCHC 34.6 g/dL (31.0-37.0); MCV 86.9 fL (80.0-100.0); Mean Platelet Volume 8.1; Monocytes # (A) 0.6 k/uL (0-1.0); Monocytes % (A) 4 %; Neutrophils # (A) 10.5 k/uL (1.3-7.7); Neutrophils % (A) 78 %; Platelet Count 221 k/uL (150-450); RBC 4.74 m/uL (4.30-5.90); RDW 13.3 % (11.5-15.5); WBC 13.5 k/uL (3.8-10.6)
[2019-03-24 08:48] LABS: ALT 21 U/L (4-49); AST 24 U/L (17-59); African American GFR (CKD) >90 (>60 ml/min/1.73 sqM); Albumin 4.3 g/dL (3.5-5.0); Alkaline Phosphatase 107 U/L (38-126); Anion Gap 11 mmol/L; Blood Urea Nitrogen 13 mg/dL (9-20); Calcium 9.5 mg/dL (8.4-10.2); Carbon Dioxide 23 mmol/L (22-30); Chloride 105 mmol/L (98-107); Glucose 135 mg/dL (74-99); Non-African American GFR(CKD) >90 (>60 ml/min/1.73 sqM); Sodium 139 mmol/L (137-145); Total Protein 7.2 g/dL (6.3-8.2)
--- NOTE | 2019-03-24 08:57 | XR ---
EXAMINATION TYPE: XR chest 2V DATE OF EXAM: 03/24/2019 COMPARISON: Chest CT December 30, 2018. Chest x-ray January 17, 2019 HISTORY: Difficulty in breathing. TECHNIQUE: Frontal and lateral views of the chest are obtained. FINDINGS: Background mild underlying emphysematous change seen better on CT versus plain films involv ing upper lungs. Overlying EKG leads on current study. There is no focal air space opacity, pleural e ffusion, or pneumothorax seen. The cardiac silhouette size is within normal limits. Asymmetric widen ing left acromioclavicular joint redemonstrated.. IMPRESSION: Mild chronic emphysematous changes without acute pulmonary process.
[2019-03-24 09:01] LABS: INR 0.9 (<1.2); Partial Thromboplastin Time 25.1 sec (22.0-30.0); Prothrombin Time 9.5 sec (9.0-12.0)
[2019-03-24 10:02] VITALS: BP 149/98; PULSE 91; RESP 16; TEMP 98.4
== END 2019-03-24 09:59 | disposition home or self-care (01) ==
LOC: EC 07:49
DX: J44.0 Chronic obstructive pulmonary disease with (acute) lower respiratory infection (principal); J44.1 Chronic obstructive pulmonary disease with (acute) exacerbation; J20.9 Acute bronchitis, unspecified; I25.10 Atherosclerotic heart disease of native coronary artery without angina pectoris; I25.2 Old myocardial infarction; M19.90 Unspecified osteoarthritis, unspecified site; F17.200 Nicotine dependence, unspecified, uncomplicated; Z88.1 Allergy status to other antibiotic agents; Z79.51 Long term (current) use of inhaled steroids; Z79.52 Long term (current) use of systemic steroids; Z79.82 Long term (current) use of aspirin; Z79.899 Other long term (current) drug therapy; Z96.653 Presence of artificial knee joint, bilateral; Z95.5 Presence of coronary angioplasty implant and graft; Z80.1 Family history of malignant neoplasm of trachea, bronchus and lung
CPT/HCPCS: 99285; 96374; 96375; 36415; 94640; 93005; 83880; 80053; 83605; 83735; 84484; 85025; 85610; 85730; 87040; 71046; J2930; J0696

== ENCOUNTER 2019-03-28 10:34 | Emergency (ER) | payer MEDICARE, OTHER ==
[2019-03-28] MEDS ORDERED: BENZONATATE 100 MG CAP PO STA (10:53)
--- NOTE | 2019-03-28 10:57 | ED ---
General Adult HPI - General Chief complaint: Shortness of Breath Stated complaint: Sob Time Seen by Provider: 03/28/19 10:42 Source: patient Mode of arrival: ambulatory Limitations: no limitations - History of Present Illness Initial comments: 58-year-old male patient with past medical history significant for COPD presents to the emergency department today for evaluation of persistent cough. Patient states he has been sick with upper respiratory infection for the last week. States he was seen and evaluated on Wednesday diagnosed with acute bronchitis and given prescription for azithromycin and steroids. Patient states that he has completed the antibiotic as well as a steroids and is not feeling any better. Patient's believes his symptoms may be worsening. States he is coughing up large amounts of green sputum. The patient states he does feel short of breath however this is usual for him with his COPD. States he is doing his home inhalers as well as albuterol breathing treatments every 4 hours. He denies taking any medications specifically for cough. Denies any fever or chills. Denies chest pain. Patient denies any recent rash, abdominal pain, nausea, vomiting, diarrhea, constipation, back pain, numbness, tingling, dizziness, weakness, hematuria, dysuria, urinary urgency, urinary frequency, headache, visual changes, or any other complaints. - Related Data Home Medications Medication Instructions Recorded Confirmed Albuterol Sulfate [Ventolin HFA] 2 puff INHALATION RT-Q6H PRN 09/07/14 01/17/19 Albuterol Nebulized [Ventolin 2.5 mg INHALATION RT-Q4H PRN 03/03/16 01/17/19 Nebulized] Arformoterol Tartrate [Brovana] 15 mcg INHALATION RT-BID 03/03/16 01/17/19 Budesonide [Pulmicort] 0.5 mg INHALATION RT-BID 03/03/16 01/17/19 Ipratropium Nebulized [Atrovent 0.5 mg INHALATION RT-BID 03/23/17 01/17/19 Nebulized 0.2 MG/ML] predniSONE See Taper PO DIRECTED 01/01/19 01/17/19 Aspirin 81 mg PO HS 01/06/19 01/17/19 Atorvastatin [Lipitor] 80 mg PO HS 01/06/19 01/17/19 Previous Rx's Medication Instructions Recorded Clopidogrel Bisulfate [Plavix] 75 mg PO DAILY #90 tab 12/30/18 Metoprolol Tartrate [Lopressor] 25 mg PO BID #180 tablet 12/30/18 Famotidine [Pepcid] 20 mg PO DAILY #30 tab 01/01/19 Azithromycin [Zithromax] 500 mg PO DAILY #3 tab 01/19/19 predniSONE 0 mg PO DIRECTED #30 tab 01/19/19 Azithromycin [Zithromax Tri-Alfredo] 500 mg PO DAILY #3 tab 03/24/19 predniSONE 40 mg PO DAILY #8 tab 03/24/19 Benzonatate [Tessalon Perles] 100 mg PO TID #15 cap 03/28/19 guaiFENesin-Coden 100-10MG/5ML 10 ml PO HS PRN 3 Days #70 ml 03/28/19 [Robitussin AC] guaiFENesin-DM 600/30MG [Mucinex 1 each PO Q12HR #10 tab.er.12h 03/28/19 Dm] Allergies Allergy/AdvReac Type Severity Reaction Status Date / Time levofloxacin [From Levaquin] AdvReac Nausea & Verified 03/28/19 10:40 Vomiting & Diarrhea Review of Systems ROS Statement: Those systems with pertinent positive or pertinent negative responses have been documented in the HPI. ROS Other: All systems not noted in ROS Statement are negative. Past Medical History Past Medical History: Coronary Artery Disease (CAD), COPD, Myocardial Infarction ([place]) Additional Past Medical History / Comment(s): Pt states he has hx of 3 respiratory arrests and was vented, generalized arthritis, Last Myocardial Infarction Date:: History of Any Multi-Drug Resistant Organisms: None Reported Past Surgical History: Adenoidectomy, Heart Catheterization With Stent, Hernia Repair, Joint Replacement, Orthopedic Surgery, Tonsillectomy Additional Past Surgical History / Comment(s): R inguinal hernia repair, L rotator cuff repair, bialteral total knee arthroplasties, R shoulder spur removal, teeth extracted, colonoscopy-normal. third hernia repair, left side Past Anesthesia/Blood Transfusion Reactions: No Reported Reaction Date of Last Stent Placement:: 2018 Past Psychological History: No Psychological Hx Reported Smoking Status: Current some day smoker Past Alcohol Use History: None Reported Past Drug Use History: Marijuana - Past Family History Father Family Medical History: Cancer Additional Family Medical History / Comment(s): Father of lung cancer at the age of 62. He was a smoker. Mother Family Medical History: Diabetes Mellitus, Hypertension Additional Family Medical History / Comment(s): Mother at age 78 from brainstem cancer. Brother(s) Additional Family Medical History / Comment(s): Patient's 1 brother with history of AAA. Patient has 4 sisters and he does not know any of their medical history. Patient's 1 son and 1 daughter living. He had one daughter that at 7 weeks old from a congenital heart. General Exam Limitations: no limitations General appearance: alert, in no apparent distress, other (This is a well- developed, well-nourished adult male patient in no acute distress. Vital signs upon presentation are temperature 98.4F, pulse 119, respirations 20, blood pressure 125/79, pulse ox 96% on room air.) Eye exam: Present: normal appearance, PERRL, EOMI. Absent: scleral icterus, conjunctival injection, periorbital swelling ENT exam: Present: normal exam, normal oropharynx, mucous membranes moist Respiratory exam: Present: normal lung sounds bilaterally. Absent: respiratory distress, wheezes, rales, rhonchi, stridor Cardiovascular Exam: Present: normal rhythm, tachycardia, normal heart sounds. Absent: systolic murmur, diastolic murmur, rubs, gallop, clicks GI/Abdominal exam: Present: soft, normal bowel sounds. Absent: distended, tenderness, guarding, rebound, rigid Neurological exam: Present: alert, oriented X3, CN II-XII intact Psychiatric exam: Present: normal affect, normal mood Skin exam: Present: warm, dry, intact, normal color. Absent: rash Course Vital Signs 03/28/19 03/28/19 03/28/19 10:37 11:01 12:03 Temperature 98.4 F 97.4 F L Pulse Rate 119 H 90 Respiratory 20 16 18 Rate Blood Pressure 125/79 141/84 O2 Sat by Pulse 96 95 Oximetry Medical Decision Making - Medical Decision Making 58-year-old male patient presents to the emergency department today for evaluation of worsening cough and sputum production. Patient was seen and evaluated here on Wednesday diagnosed with acute bronchitis, given azithromycin and prednisone. Patient states the cough seems to be worsening is out of medication. Lungs are clear to auscultation with good air movement. Oxygen saturation is satisfactory between 96-99% on room air. Chest x-ray was repeated, shows no acute cardiopulmonary process. Patient symptoms are again consistent with acute bronchitis, we will give one IM dose of Solu-Medrol today. He'll be given additional azithromycin as his prescription was short. He is encouraged to continue breathing treatments every 4 hours. He is instructed to follow-up with his primary care physician for recheck in 1-2 days. Return parameters were discussed in detail. He verbalizes understanding and agrees with this plan. - Radiology Data Radiology results: report reviewed, image reviewed Two-view x-ray of the chest is obtained. Report is reviewed in its entirety. Impression by Dr. Umana shows no suspicious acute pulmonary process. No significant change from prior. Disposition Clinical Impression: Acute bronchitis Disposition: HOME SELF-CARE Condition: Good Instructions (If sedation given, give patient instructions): Acute Bronchitis (ED) Additional Instructions: Take cough medications as directed. Continue breathing treatments every 4 hours. Follow-up through primary care physician as you have planned. Return to the emergency department immediately for any new, worsening, or concerning symptoms. Prescriptions: guaiFENesin-DM 600/30MG [Mucinex Dm] 1 each PO Q12HR #10 tab.er.12h guaiFENesin-Coden 100-10MG/5ML [Robitussin AC] 10 ml PO HS PRN 3 Days #70 ml PRN Reason: Cough/bedtime Benzonatate [Tessalon Perles] 100 mg PO TID #15 cap Is patient prescribed a controlled substance at d/c from ED?: Yes When asked, does pt state using other controlled substances?: No If prescribed controlled substance>3 days was MAPS reviewed?: No If Rx opioid, was Start Talking consent form obtained?: Yes Referrals: Bear Arias MD [Primary Care Provider] - 1-2 days Time of Disposition: 11:58
[2019-03-28] MEDS ORDERED: guaiFENesin-DM 600/30MG 1 EACH TAB.ER.12H PO STA (11:08)
--- NOTE | 2019-03-28 11:21 | XR ---
EXAMINATION TYPE: XR chest 2V DATE OF EXAM: 03/28/2019 COMPARISON: Chest x-ray 4 days ago. HISTORY: Productive cough. TECHNIQUE: Frontal and lateral views of the chest are obtained. FINDINGS: There is no focal air space opacity, pleural effusion, or pneumothorax seen. The cardiac silhouette size is within normal limits. The osseous structures are intact. IMPRESSION: No suspicious acute pulmonary process. No significant change from prior.
[2019-03-28] MEDS ORDERED: methylPREDNISolone SOD SUCCI 125 MG/2 ML VIAL IM ONE (11:55)
[2019-03-28] MEDS ORDERED: AZITHROMYCIN 500 MG TAB PO STA (11:55)
[2019-03-28 12:04] VITALS: BP 141/84; PULSE 90; RESP 18; TEMP 97.4
== END 2019-03-28 12:11 | disposition home or self-care (01) ==
LOC: EC 10:34
DX: J20.9 Acute bronchitis, unspecified (principal); R00.0 Tachycardia, unspecified; J44.0 Chronic obstructive pulmonary disease with (acute) lower respiratory infection; I25.10 Atherosclerotic heart disease of native coronary artery without angina pectoris; I25.2 Old myocardial infarction; M19.90 Unspecified osteoarthritis, unspecified site; F17.200 Nicotine dependence, unspecified, uncomplicated; Z88.1 Allergy status to other antibiotic agents; Z79.51 Long term (current) use of inhaled steroids; Z79.52 Long term (current) use of systemic steroids; Z79.82 Long term (current) use of aspirin; Z79.899 Other long term (current) drug therapy; Z95.5 Presence of coronary angioplasty implant and graft; Z90.89 Acquired absence of other organs; Z96.653 Presence of artificial knee joint, bilateral; Z80.1 Family history of malignant neoplasm of trachea, bronchus and lung
CPT/HCPCS: 71046; 99284; 96372; J2930

== ENCOUNTER 2019-04-01 16:15 | Observation (INO) | payer MEDICARE, OTHER ==
[2019-04-01] MEDS ORDERED: IPRATROPIUM-ALBUTEROL 3 ML NEB INHALATION STA (17:15)
[2019-04-01] MEDS ORDERED: KETOROLAC 30 MG/ML 1 ML VIAL IVP STA (17:18)
--- NOTE | 2019-04-01 17:19 | ED ---
General Adult HPI - General Chief complaint: Shortness of Breath Stated complaint: dyspnea Time Seen by Provider: 04/01/19 16:59 Source: patient, RN notes reviewed Mode of arrival: ambulatory Limitations: no limitations - History of Present Illness Initial comments: Patient is a pleasant 58-year-old male presenting to the emergency department with complaints of cough and dyspnea. Symptoms have started a week ago. Patient does have productive yellow sputum. He should does have history of similar symptoms previously associated with COPD. Patient does have some discomfort right upper chest that he associates with the cough. No leg pain or leg swelling. - Related Data Home Medications Medication Instructions Recorded Confirmed Albuterol Sulfate [Ventolin HFA] 2 puff INHALATION RT-Q6H PRN 09/07/14 01/17/19 Albuterol Nebulized [Ventolin 2.5 mg INHALATION RT-Q4H PRN 03/03/16 01/17/19 Nebulized] Arformoterol Tartrate [Brovana] 15 mcg INHALATION RT-BID 03/03/16 01/17/19 Budesonide [Pulmicort] 0.5 mg INHALATION RT-BID 03/03/16 01/17/19 Ipratropium Nebulized [Atrovent 0.5 mg INHALATION RT-BID 03/23/17 01/17/19 Nebulized 0.2 MG/ML] predniSONE See Taper PO DIRECTED 01/01/19 01/17/19 Aspirin 81 mg PO HS 01/06/19 01/17/19 Atorvastatin [Lipitor] 80 mg PO HS 01/06/19 01/17/19 Previous Rx's Medication Instructions Recorded Clopidogrel Bisulfate [Plavix] 75 mg PO DAILY #90 tab 12/30/18 Metoprolol Tartrate [Lopressor] 25 mg PO BID #180 tablet 12/30/18 Famotidine [Pepcid] 20 mg PO DAILY #30 tab 01/01/19 Azithromycin [Zithromax] 500 mg PO DAILY #3 tab 01/19/19 predniSONE 0 mg PO DIRECTED #30 tab 01/19/19 Azithromycin [Zithromax Tri-Alfredo] 500 mg PO DAILY #3 tab 03/24/19 predniSONE 40 mg PO DAILY #8 tab 03/24/19 Benzonatate [Tessalon Perles] 100 mg PO TID #15 cap 03/28/19 guaiFENesin-Coden 100-10MG/5ML 10 ml PO HS PRN 3 Days #70 ml 03/28/19 [Robitussin AC] guaiFENesin-DM 600/30MG [Mucinex 1 each PO Q12HR #10 tab.er.12h 03/28/19 Dm] Allergies Allergy/AdvReac Type Severity Reaction Status Date / Time levofloxacin [From Levaquin] AdvReac Nausea & Verified 04/01/19 16:34 Vomiting & Diarrhea Review of Systems ROS Statement: Those systems with pertinent positive or pertinent negative responses have been documented in the HPI. ROS Other: All systems not noted in ROS Statement are negative. Constitutional: Reports: fever Eyes: Denies: eye pain ENT: Denies: ear pain Respiratory: Reports: cough, dyspnea Cardiovascular: Reports: as per HPI Endocrine: Reports: fatigue Gastrointestinal: Denies: abdominal pain Genitourinary: Denies: dysuria Musculoskeletal: Denies: back pain Skin: Denies: rash Neurological: Denies: weakness Past Medical History Past Medical History: Coronary Artery Disease (CAD), COPD, Myocardial Infarction ([place]) Additional Past Medical History / Comment(s): Pt states he has hx of 3 respiratory arrests and was vented, generalized arthritis, Last Myocardial Infarction Date:: History of Any Multi-Drug Resistant Organisms: None Reported Past Surgical History: Adenoidectomy, Heart Catheterization With Stent, Hernia Repair, Joint Replacement, Orthopedic Surgery, Tonsillectomy Additional Past Surgical History / Comment(s): R inguinal hernia repair, L rotator cuff repair, bialteral total knee arthroplasties, R shoulder spur removal, teeth extracted, colonoscopy-normal. third hernia repair, left side Past Anesthesia/Blood Transfusion Reactions: No Reported Reaction Date of Last Stent Placement:: 2018 Past Psychological History: No Psychological Hx Reported Smoking Status: Former smoker Past Alcohol Use History: None Reported Past Drug Use History: Marijuana - Past Family History Father Family Medical History: Cancer Additional Family Medical History / Comment(s): Father of lung cancer at the age of 62. He was a smoker. Mother Family Medical History: Diabetes Mellitus, Hypertension Additional Family Medical History / Comment(s): Mother at age 78 from brainstem cancer. Brother(s) Additional Family Medical History / Comment(s): Patient's 1 brother with history of AAA. Patient has 4 sisters and he does not know any of their medical history. Patient's 1 son and 1 daughter living. He had one daughter that at 7 weeks old from a congenital heart. General Exam Limitations: no limitations General appearance: alert, in no apparent distress Head exam: Present: normocephalic Eye exam: Present: normal appearance, PERRL ENT exam: Present: normal oropharynx Neck exam: Present: normal inspection Respiratory exam: Present: decreased breath sounds Cardiovascular Exam: Present: regular rate, normal rhythm GI/Abdominal exam: Present: soft. Absent: tenderness Extremities exam: Present: normal inspection. Absent: pedal edema, calf tenderness Neurological exam: Present: alert Psychiatric exam: Present: normal affect, normal mood Skin exam: Present: normal color Course Vital Signs 04/01/19 04/01/19 04/01/19 16:32 17:21 17:57 Temperature 98.8 F Pulse Rate 104 H 80 Respiratory 20 18 Rate Blood Pressure 132/83 O2 Sat by Pulse 96 Oximetry 04/01/19 18:05 Temperature Pulse Rate 90 Respiratory Rate Blood Pressure O2 Sat by Pulse Oximetry EKG Findings - EKG Comments: EKG Findings:: Normal sinus rhythm 88. NH 138. QRS 94. QT 356. QTc 4:30. Left axis. Normal QRS. No acute ST change. Medical Decision Making - Medical Decision Making Patient reevaluated and resting comfortably in bed. Patient states chest discomfort has improved, mild at this time. Patient states breathing is also better. Patient is updated on results. Patient states he is actually more worried about his chest discomfort. Case was discussed in detail with Dr. Silverio delgado, who will admit covering for Dr. Arias. - Lab Data Result diagrams: 04/01/19 17:12 04/01/19 17:12 Lab Results 04/01/19 04/01/19 04/01/19 Range/Units 17:12 17:12 17:12 WBC 13.9 H (3.8-10.6) k/uL RBC 5.05 (4.30-5.90) m/uL Hgb 14.8 (13.0-17.5) gm/dL Hct 44.2 (39.0-53.0) % MCV 87.5 (80.0-100.0) fL MCH 29.3 (25.0-35.0) pg MCHC 33.5 (31.0-37.0) g/dL RDW 13.0 (11.5-15.5) % Plt Count 227 (150-450) k/uL Neutrophils % 69 % Lymphocytes % 21 % Monocytes % 6 % Eosinophils % 2 % Basophils % 0 % Neutrophils # 9.6 H (1.3-7.7) k/uL Lymphocytes # 3.0 (1.0-4.8) k/uL Monocytes # 0.8 (0-1.0) k/uL Eosinophils # 0.3 (0-0.7) k/uL Basophils # 0.1 (0-0.2) k/uL PT 9.6 (9.0-12.0) sec INR 0.9 (<1.2) APTT 24.4 (22.0-30.0) sec D-Dimer 0.21 (<0.60) mg/L FEU Sodium 138 (137-145) mmol/L Potassium 4.3 (3.5-5.1) mmol/L Chloride 104 (98-107) mmol/L Carbon Dioxide 24 (22-30) mmol/L Anion Gap 10 mmol/L BUN 13 (9-20) mg/dL Creatinine 0.83 (0.66-1.25) mg/dL Est GFR (CKD-EPI)AfAm >90 (>60 ml/min/1.73 sqM) Est GFR (CKD-EPI)NonAf >90 (>60 ml/min/1.73 sqM) Glucose 108 H (74-99) mg/dL Plasma Lactic Acid Rito (0.7-2.0) mmol/L Calcium 9.7 (8.4-10.2) mg/dL Magnesium 2.3 (1.6-2.3) mg/dL Total Bilirubin 0.8 (0.2-1.3) mg/dL AST 20 (17-59) U/L ALT 18 (4-49) U/L Alkaline Phosphatase 108 (38-126) U/L Troponin I (0.000-0.034) ng/mL NT-Pro-B Natriuret Pep pg/mL Total Protein 6.9 (6.3-8.2) g/dL Albumin 4.2 (3.5-5.0) g/dL Influenza Type A RNA (Not Detectd) Influenza Type B (PCR) (Not Detectd) 04/01/19 04/01/19 04/01/19 Range/Units 17:12 17:12 17:12 WBC (3.8-10.6) k/uL RBC (4.30-5.90) m/uL Hgb (13.0-17.5) gm/dL Hct (39.0-53.0) % MCV (80.0-100.0) fL MCH (25.0-35.0) pg MCHC (31.0-37.0) g/dL RDW (11.5-15.5) % Plt Count (150-450) k/uL Neutrophils % % Lymphocytes % % Monocytes % % Eosinophils % % Basophils % % Neutrophils # (1.3-7.7) k/uL Lymphocytes # (1.0-4.8) k/uL Monocytes # (0-1.0) k/uL Eosinophils # (0-0.7) k/uL Basophils # (0-0.2) k/uL PT (9.0-12.0) sec INR (<1.2) APTT (22.0-30.0) sec D-Dimer (<0.60) mg/L FEU Sodium (137-145) mmol/L Potassium (3.5-5.1) mmol/L Chloride (98-107) mmol/L Carbon Dioxide (22-30) mmol/L Anion Gap mmol/L BUN (9-20) mg/dL Creatinine (0.66-1.25) mg/dL Est GFR (CKD-EPI)AfAm (>60 ml/min/1.73 sqM) Est GFR (CKD-EPI)NonAf (>60 ml/min/1.73 sqM) Glucose (74-99) mg/dL Plasma Lactic Acid Rito 1.2 (0.7-2.0) mmol/L Calcium (8.4-10.2) mg/dL Magnesium (1.6-2.3) mg/dL Total Bilirubin (0.2-1.3) mg/dL AST (17-59) U/L ALT (4-49) U/L Alkaline Phosphatase (38-126) U/L Troponin I (0.000-0.034) ng/mL NT-Pro-B Natriuret Pep 41 pg/mL Total Protein (6.3-8.2) g/dL Albumin (3.5-5.0) g/dL Influenza Type A RNA Not Detected (Not Detectd) Influenza Type B (PCR) Not Detected (Not Detectd) 04/01/19 Range/Units 17:12 WBC (3.8-10.6) k/uL RBC (4.30-5.90) m/uL Hgb (13.0-17.5) gm/dL Hct (39.0-53.0) % MCV (80.0-100.0) fL MCH (25.0-35.0) pg MCHC (31.0-37.0) g/dL RDW (11.5-15.5) % Plt Count (150-450) k/uL Neutrophils % % Lymphocytes % % Monocytes % % Eosinophils % % Basophils % % Neutrophils # (1.3-7.7) k/uL Lymphocytes # (1.0-4.8) k/uL Monocytes # (0-1.0) k/uL Eosinophils # (0-0.7) k/uL Basophils # (0-0.2) k/uL PT (9.0-12.0) sec INR (<1.2) APTT (22.0-30.0) sec D-Dimer (<0.60) mg/L FEU Sodium (137-145) mmol/L Potassium (3.5-5.1) mmol/L Chloride (98-107) mmol/L Carbon Dioxide (22-30) mmol/L Anion Gap mmol/L BUN (9-20) mg/dL Creatinine (0.66-1.25) mg/dL Est GFR (CKD-EPI)AfAm (>60 ml/min/1.73 sqM) Est GFR (CKD-EPI)NonAf (>60 ml/min/1.73 sqM) Glucose (74-99) mg/dL Plasma Lactic Acid Rito (0.7-2.0) mmol/L Calcium (8.4-10.2) mg/dL Magnesium (1.6-2.3) mg/dL Total Bilirubin (0.2-1.3) mg/dL AST (17-59) U/L ALT (4-49) U/L Alkaline Phosphatase (38-126) U/L Troponin I <0.012 (0.000-0.034) ng/mL NT-Pro-B Natriuret Pep pg/mL Total Protein (6.3-8.2) g/dL Albumin (3.5-5.0) g/dL Influenza Type A RNA (Not Detectd) Influenza Type B (PCR) (Not Detectd) - Radiology Data Radiology results: image reviewed (Chest x-ray shows no acute process) Disposition Clinical Impression: Acute exacerbation of chronic obstructive pulmonary disease, Chest pain Disposition: ADMITTED IP TO THIS HOSP Is patient prescribed a controlled substance at d/c from ED?: No Referrals: Bear Arias MD [Primary Care Provider] - 1-2 days Decision Time: 19:41
[2019-04-01 17:31] LABS: Basophils # (A) 0.1 k/uL (0-0.2); Basophils % (A) 0 %; Eosinophils # (A) 0.3 k/uL (0-0.7); Eosinophils % (A) 2 %; HCT 44.2 % (39.0-53.0); HGB 14.8 gm/dL (13.0-17.5); Lymphocytes % (A) 21 %; MCH 29.3 pg (25.0-35.0); MCHC 33.5 g/dL (31.0-37.0); MCV 87.5 fL (80.0-100.0); Mean Platelet Volume 8.1; Monocytes # (A) 0.8 k/uL (0-1.0); Monocytes % (A) 6 %; Neutrophils # (A) 9.6 k/uL (1.3-7.7); Neutrophils % (A) 69 %; Platelet Count 227 k/uL (150-450); RBC 5.05 m/uL (4.30-5.90); WBC 13.9 k/uL (3.8-10.6)
[2019-04-01 17:42] LABS: ALT 18 U/L (4-49); AST 20 U/L (17-59); African American GFR (CKD) >90 (>60 ml/min/1.73 sqM); Albumin 4.2 g/dL (3.5-5.0); Alkaline Phosphatase 108 U/L (38-126); Anion Gap 10 mmol/L; Blood Urea Nitrogen 13 mg/dL (9-20); Calcium 9.7 mg/dL (8.4-10.2); Carbon Dioxide 24 mmol/L (22-30); Chloride 104 mmol/L (98-107); Glucose 108 mg/dL (74-99); Magnesium 2.3 mg/dL (1.6-2.3); Non-African American GFR(CKD) >90 (>60 ml/min/1.73 sqM); Potassium 4.3 mmol/L (3.5-5.1); Sodium 138 mmol/L (137-145); Total Bilirubin 0.8 mg/dL (0.2-1.3); Total Protein 6.9 g/dL (6.3-8.2)
[2019-04-01 17:44] LABS: D-Dimer 0.21 mg/L FEU (<0.60); INR 0.9 (<1.2); Partial Thromboplastin Time 24.4 sec (22.0-30.0); Prothrombin Time 9.6 sec (9.0-12.0)
--- NOTE | 2019-04-01 17:55 | XR ---
EXAMINATION TYPE: XR chest 2V DATE OF EXAM: 04/01/2019 COMPARISON: 03/28/2019 HISTORY: Cough TECHNIQUE: 2 views FINDINGS: Heart is normal. Lungs are clear of infiltrate. There is no pleural effusion. Bony thorax i s intact. There are chest leads. IMPRESSION: Normal chest. No change.
[2019-04-01] MEDS ORDERED: IPRATROPIUM-ALBUTEROL 3 ML NEB INHALATION PRN (19:42)
[2019-04-01] MEDS ORDERED: NITROGLYCERIN SL TABS 0.4 MG TAB SUBLINGUAL PRN (19:42)
[2019-04-01] MEDS ORDERED: ASPIRIN 81 MG PO STA (19:42)
[2019-04-01] MEDS: methylPREDNISolone SOD SUCCI 125 MG/2 ML VIAL IV SCH (21:22)
[2019-04-01] MEDS: IPRATROPIUM-ALBUTEROL 3 ML NEB INHALATION SCH (21:55)
[2019-04-01] MEDS: ATORVASTATIN 80 MG TAB PO SCH (23:13)
[2019-04-01] MEDS: NITROGLYCERIN OINT 1 INCH/GM PACKET TOPICAL SCH (23:17)
[2019-04-02] MEDS: methylPREDNISolone SOD SUCCI 125 MG/2 ML VIAL IV SCH ×5 (02:37→23:03)
[2019-04-02 06:14] LABS: Cholesterol 149 mg/dL (<200); HDL Cholesterol 44 mg/dL (40-60); LDL Cholesterol,Calculated 93 mg/dL (0-99); Triglycerides 59 mg/dL (<150)
[2019-04-02] MEDS: NITROGLYCERIN OINT 1 INCH/GM PACKET TOPICAL SCH ×4 (06:37→23:05)
[2019-04-02 06:39] LABS: Glucose,Whole Blood 179 mg/dL (75-99)
[2019-04-02 07:04] VITALS: RESP 18
[2019-04-02] MEDS: IPRATROPIUM-ALBUTEROL 3 ML NEB INHALATION SCH ×4 (08:08→19:28)
[2019-04-02] MEDS: FORMOTEROL FUMARATE 20 MCG/2 ML NEBU INHALATION SCH ×2 (08:08→19:28)
[2019-04-02] MEDS: BUDESONIDE 0.5 MG/2 ML NEBU INHALATION SCH ×2 (08:08→19:28)
[2019-04-02] MEDS: INSULIN ASPART (NovoLOG) 100 UNIT/ML VIAL SQ SCH ×4 (08:45→20:28)
[2019-04-02] MEDS ORDERED: ASPIRIN 325 MG TAB PO SCH (09:00)
[2019-04-02] MEDS: ASPIRIN 81 MG PO SCH (10:29)
[2019-04-02] MEDS: METOPROLOL SUCCINATE (ER) 25 MG TAB.ER.24H PO SCH (10:29)
[2019-04-02] MEDS: CLOPIDOGREL 75 MG TAB PO SCH (10:29)
--- NOTE | 2019-04-02 11:11 | CONS ---
CONSULTATION Marcel is a 58-year-old gentleman with history of coronary artery disease, status post prior angioplasty of right coronary artery who is admitted to the hospital with vomiting, cough and chest pain. Cardiology has been consulted for chest pain. Patient's symptoms actually initially started with cough and dyspnea. He has yellowish sputum. His symptoms have started about a week ago. He had an episode of vomiting also, following which she complained of chest pain. He describes it as a sharp right- sided chest pain, mild intensity without definite radiation to neck, arm or back. Given the recent coronary event he was concerned and the patient is admitted to hospital and Cardiology had been consulted. At the time of my evaluation he appears comfortable at rest. Three sets of cardiac enzymes are negative. EKG shows sinus rhythm with left axis deviation without acute ST-T wave changes. The patient's chest pain is probably related to his cough and probably musculoskeletal. I do not see any evidence of acute coronary syndrome at this time. PAST MEDICAL HISTORY: Significant for coronary artery disease status post angioplasty of right coronary artery and COPD. CURRENT MEDICATIONS: Include Lipitor 80 daily, Plavix 75 daily, Toprol 25 daily, Atrovent, Brovana, Ventolin. ALLERGIES: The patient is allergic LEVAQUIN. FAMILY HISTORY: Negative for premature coronary artery disease. SOCIAL HISTORY: Negative for current smoking, EtOH abuse or drug abuse. REVIEW OF SYSTEMS: HEENT: Unremarkable. CARDIAC: As described above. RESPIRATORY: Negative. GI: Negative. GENITOURINARY: Negative. ALLERGY: Negative. SKIN: Negative. MUSCULOSKELETAL: Significant for arthritis. PSYCHOSOCIAL: Negative. CONSTITUTIONAL: Negative. ONCOLOGICAL: Negative TALENT SCOUT: Negative. Rest of the system review is not relevant. EXAM: Comfortable at rest. Vital signs are stable. Chest exam reveals occasional rhonchi bilaterally. Heart exam reveals first and second heart sounds. No gallop. Abdomen is soft, nontender. Exam of extremities did not reveal any edema. Peripheral pulses are felt. EKG does not reveal acute ischemic changes. Cardiac enzymes have been negative. ASSESSMENT: 1. Precordial chest pain. 2. Coronary artery disease, status post angioplasty of right coronary artery. 3. Chronic obstructive pulmonary disease exacerbation. PLAN: Patient's chest pain is atypical, probably musculoskeletal and does not require any further workup at this time. Upon discharge, arrange follow up with Dr. De Luna. MMODL / IJN: [id number] /
[2019-04-02 11:31] LABS: Glucose,Whole Blood 195 mg/dL (75-99)
--- NOTE | 2019-04-02 14:26 | P.HPIM ---
History of Present Illness H&P Date: 04/02/19 Chief Complaint: chest pain This is a 58-year-old male patient of Dr. Arias and Dr. De Luna with past medical history of COPD, coronary artery disease status post stenting of the mid RCA with bare metal stent, hyperlipidemia, nicotine dependence, history of IV drug abuse, history of marijuana abuse, history of alcohol abuse. The patient states that he has had cough and dyspnea for at least a week but states he also came in the ER for evaluation on 2 occasions. These ER visits were reviewed. Patient presented initially on March 18 was treated for acute bronchitis and discharged on prednisone and Z-Alfredo. Patient then returned on March 28 and was given cough medications. The patient states that yesterday he had right upper chest pain and he also vomited one time yesterday after eating a gyro. He complains of sharp pain in the chest and the right side that radiates into his neck and shoulder. It started while he was laying down. He did not take any nitroglycerin. He denies any tenderness to the area. It is resolved at this time which he thinks it was Toradol that helped. He denies any recent antibiotic use. He does relate that he is living in an apartment and will be moving to a different apartment on Wednesday. Patient came into [facility] emergency center for evaluation. Chest x-ray reveals no cardiopulmonary disease. WBC 13.9, hemoglobin 14.8, creatinine 0.83, blood sugar 108, lactic acid 1.2, proBNP 41, influenza testing negative, troponins negative on 3 draws. Patient has been placed in the observation unit and cardiology consult requested. Review of Systems Constitutional: Denies chills, Denies fatigue, Denies fever, Denies poor appetite, Denies weight loss Eyes: denies blurred vision, denies pain Ears, nose, mouth and throat: Denies dysphagia, Denies headache, Denies nasal congestion, Denies nasal discharge, Denies sore throat Cardiovascular: Reports chest pain, Reports shortness of breath, Denies edema, Denies lightheadedness, Denies palpitations, Denies syncope Respiratory: Reports cough with sputum, Reports dyspnea, Reports wheezing, Denies cough, Denies excessive sputum, Denies hemoptysis, Denies home oxygen Gastrointestinal: Denies abdominal pain, Denies diarrhea, Denies nausea, Denies vomiting Genitourinary: Denies dysuria, Denies urinary frequency Musculoskeletal: Denies gait dysfunction, Denies muscle weakness, Denies myalgias Integumentary: Denies pruritus, Denies rash, Denies wounds Neurological: Denies change in mentation, Denies change in speech, Denies gait dysfunction, Denies numbness, Denies weakness Psychiatric: Denies anxiety, Denies depression Endocrine: Denies fatigue, Denies weight change Past Medical History Past Medical History: Coronary Artery Disease (CAD), COPD, Myocardial Infarction ([place]) Additional Past Medical History / Comment(s): Pt states he has hx of 3 respiratory arrests and was vented, generalized arthritis, Last Myocardial Infarction Date:: History of Any Multi-Drug Resistant Organisms: None Reported Past Surgical History: Adenoidectomy, Heart Catheterization With Stent, Hernia Repair, Joint Replacement, Orthopedic Surgery, Tonsillectomy Additional Past Surgical History / Comment(s): R inguinal hernia repair, L rotator cuff repair, bialteral total knee arthroplasties, R shoulder spur removal, teeth extracted, colonoscopy-normal. third hernia repair, left side Past Anesthesia/Blood Transfusion Reactions: No Reported Reaction Date of Last Stent Placement:: 2018 Past Psychological History: No Psychological Hx Reported Additional Psychological History / Comment(s): Pt states he has been living in his truck since September 2018. He uses no assistive devices. Smoking Status: Former smoker Past Alcohol Use History: None Reported Additional Past Alcohol Use History / Comment(s): Patient was a smoker of up to 5-6 packs per day for over 2 years but smoked from a total of 43 years. He was recently done a 4-5 cigarettes per day and stopped on December 29, 2018. He uses marijuana daily. He is recovering alcoholic and he drinks alcohol rarely at this point and his last intake was December 2018. He has history of illicit drug use including Phen-Fen a means, LSD, cocaine, heroin and quit all of this 9 years ago. 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 Past Drug Use History: Marijuana Additional Drug Use History / Comment(s): He states in the past he has used marijuana, heroin, crystal meth, cocaine and crack but none of those drugs for about 9 yrs. - Past Family History Father Family Medical History: Cancer Additional Family Medical History / Comment(s): Father of lung cancer at the age of 62. He was a smoker. Mother Family Medical History: Diabetes Mellitus, Hypertension Additional Family Medical History / Comment(s): Mother at age 78 from brainstem cancer. Brother(s) Additional Family Medical History / Comment(s): Patient's 1 brother with history of AAA. Patient has 4 sisters and he does not know any of their medical history. Patient's 1 son and 1 daughter living. He had one daughter that at 7 weeks old from a congenital heart. Medications and Allergies Home Medications Medication Instructions Recorded Confirmed Type Albuterol Sulfate [Ventolin HFA] 2 puff INHALATION RT-Q6H PRN 09/07/14 04/01/19 History Albuterol Nebulized [Ventolin 2.5 mg INHALATION RT-Q4H PRN 03/03/16 04/01/19 History Nebulized] Arformoterol Tartrate [Brovana] 15 mcg INHALATION RT-BID 03/03/16 04/01/19 History Budesonide [Pulmicort] 0.5 mg INHALATION RT-BID 03/03/16 04/01/19 History Ipratropium Nebulized [Atrovent 0.5 mg INHALATION RT-BID 03/23/17 04/01/19 Hi story Nebulized 0.2 MG/ML] Clopidogrel Bisulfate [Plavix] 75 mg PO DAILY #90 tab 12/30/18 04/01/19 Rx Atorvastatin [Lipitor] 80 mg PO HS 01/06/19 04/01/19 History Aspirin EC [Ecotrin Low Dose] 81 mg PO DAILY 04/01/19 04/01/19 History Metoprolol Succinate (ER) [Toprol 25 mg PO DAILY 04/01/19 04/01/19 History Xl] Allergies Allergy/AdvReac Type Severity Reaction Status Date / Time levofloxacin [From Levaquin] AdvReac Nausea & Verified 04/01/19 21:22 Vomiting & Diarrhea Physical Exam Vitals: Vital Signs Temp Pulse Pulse Resp BP BP BP 04/02/19 07:02 97.9 F 91 18 104/66 04/02/19 05:12 75 04/02/19 04:59 75 04/02/19 04:00 97.9 F 68 16 124/85 04/02/19 00:00 60 17 04/01/19 23:26 98.0 F 78 17 128/76 04/01/19 22:07 72 04/01/19 21:55 74 04/01/19 21:25 81 15 04/01/19 20:00 98.2 F 82 17 124/77 04/01/19 19:30 89 18 123/99 04/01/19 18:05 90 04/01/19 17:57 80 04/01/19 17:21 18 04/01/19 16:32 98.8 F 104 H 20 132/83 Pulse Ox 04/02/19 07:02 95 04/02/19 05:12 04/02/19 04:59 04/02/19 04:00 97 04/02/19 00:00 04/01/19 23:26 92 L 04/01/19 22:07 04/01/19 21:55 04/01/19 21:25 04/01/19 20:00 93 L 04/01/19 19:30 96 04/01/19 18:05 04/01/19 17:57 04/01/19 17:21 04/01/19 16:32 96 Intake and Output 04/01/19 04/02/19 04/02/19 22:59 06:59 14:59 Intake Total 0 Balance 0 Intake: Oral 0 Other: # Voids 1 1 Weight 92.986 kg - Constitutional General appearance: cooperative, no acute distress, obese - EENT Eyes: anicteric sclerae, PERRLA, normal appearance ENT: hearing grossly normal on the left ear, hearing is impaired on the right ear. There is significant tenderness to the scalp around the ear, ear auricle i tself and anterior lateral neck area. No rash noted. - Neck Neck: no lymphadenopathy, normal ROM, no other, no rigidity, no stridor, no thyromegaly - Respiratory Respiratory: bilateral: Scattered expiratory wheezes negative: diminished, dullness, rales, rhonchi - Cardiovascular Rhythm: regular Heart sounds: normal: S1, S2 Abnormal Heart Sounds: no systolic murmur, no diastolic murmur, no rub, no S3 Gallop, no S4 Gallop, no click, no other - Gastrointestinal General gastrointestinal: normal bowel sounds, soft - Integumentary Integumentary: no rash - Neurologic Neurologic: CNII-XII intact - Musculoskeletal Musculoskeletal: gait normal, strength equal bilaterally - Psychiatric Psychiatric: A&O x's 3, appropriate affect Results CBC & Chem 7: 04/01/19 17:12 04/01/19 17:12 Labs: Abnormal Lab Results - Last 24 Hours (Table) 04/01/19 04/01/19 04/02/19 Range/Units 17:12 17:12 06:37 WBC 13.9 H (3.8-10.6) k/uL Neutrophils # 9.6 H (1.3-7.7) k/uL Glucose 108 H (74-99) mg/dL POC Glucose (mg/dL) 179 H (75-99) mg/dL Thrombosis Risk Factor Assmnt - DVT/VTE Prophylaxis DVT/VTE Prophylaxis: Mechanical Prophylaxis ordered - Choose All That Apply Any of the Below Risk Factors Present?: Yes Each Factor Represents 1 point: Abnormal pulmonary function (COPD), Age 41-60 years Other Risk Factors: No Other congenital or acquired thrombophilia - If yes, enter type in comment: No Thrombosis Risk Factor Assessment Total Risk Factor Score: 2 Thrombosis Risk Factor Assessment Level: Low Risk Assessment and Plan Plan: 1. Acute chest pain with history of coronary artery disease. Consult with cardiology appreciated. 2. History of coronary artery disease status post stenting of the mid RCA with bare metal stent. Continue aspirin 81 mg daily, Lipitor 80 mg at bedtime, Plavix 75 mg daily, Toprol-XL 25 mg daily. 3. COPD exacerbation. Continue Perforomist twice daily, DuoNeb treatments every 6 hours scheduled and every 4 hours as needed, Solu-Medrol 60 mg IV every 6 hours. 4. Marijuana use and remote tobacco use. 5. Hypertension. Continue Lopressor 6. DVT prophylaxis. SADIE orta 7. GI prophylaxis. Pepcid. Patient placed as an observation status Discharge plan: Home Impression and plan of care have been directed as dictated by the signing physician. Daysi Nunn nurse practitioner acting as scribe for signing physician.
[2019-04-02 16:35] LABS: Glucose,Whole Blood 190 mg/dL (75-99)
[2019-04-02] MEDS: ATORVASTATIN 80 MG TAB PO SCH (19:54)
[2019-04-02] MEDS ORDERED: CALCIUM CARBONATE 500 MG CHEWABLE PO STA (20:11)
[2019-04-02 20:17] LABS: Glucose,Whole Blood 184 mg/dL (75-99)
[2019-04-02 23:38] VITALS: TEMP 98.2
[2019-04-03] MEDS ORDERED: MAG HYDROX/AL HYDROX/SIMETH 30 ML CUP PO STA (03:20)
[2019-04-03] MEDS: NITROGLYCERIN OINT 1 INCH/GM PACKET TOPICAL SCH (03:27)
[2019-04-03] MEDS: methylPREDNISolone SOD SUCCI 125 MG/2 ML VIAL IV SCH ×2 (05:38→12:12)
[2019-04-03 06:46] LABS: Glucose,Whole Blood 135 mg/dL (75-99)
[2019-04-03] MEDS: INSULIN ASPART (NovoLOG) 100 UNIT/ML VIAL SQ SCH (07:45)
[2019-04-03 07:46] VITALS: BP 134/68
[2019-04-03] MEDS: METOPROLOL SUCCINATE (ER) 25 MG TAB.ER.24H PO SCH (07:46)
[2019-04-03] MEDS: CLOPIDOGREL 75 MG TAB PO SCH (07:46)
[2019-04-03] MEDS: ASPIRIN 81 MG PO SCH (07:46)
[2019-04-03] MEDS: BUDESONIDE 0.5 MG/2 ML NEBU INHALATION SCH (07:50)
[2019-04-03] MEDS: FORMOTEROL FUMARATE 20 MCG/2 ML NEBU INHALATION SCH (07:50)
[2019-04-03] MEDS: IPRATROPIUM-ALBUTEROL 3 ML NEB INHALATION SCH ×2 (07:51→12:24)
[2019-04-03 08:05] VITALS: PULSE 96
[2019-04-03] MEDS ORDERED: FAMOTIDINE 20 MG TAB PO SCH (09:00)
--- NOTE | 2019-04-03 10:36 | P.DS ---
Providers Date of admission: 04/01/19 19:44 Expected date of discharge: 04/03/19 Attending physician: Kirby Christian Consults: 04/01/19 19:42 Consult Physician Urgent Consulting Provider: Minh Jones Consult Reason/Comments: cp Do you want consulting provider notified?: Yes Primary care physician: [facility] Course: This is a 58-year-old male patient of Dr. Arias and Dr. De Luna with past medical history of COPD, coronary artery disease status post stenting of the mid RCA with bare metal stent, hyperlipidemia, nicotine dependence, history of IV drug abuse, history of marijuana abuse, history of alcohol abuse. The patient states that he has had cough and dyspnea for at least a week but states he also came in the ER for evaluation on 2 occasions. These ER visits were reviewed. Patient presented initially on March 18 was treated for acute bronchitis and discharged on prednisone and Z-Alfredo. Patient then returned on March 28 and was given cough medications. The patient states that yesterday he had right upper chest pain and he also vomited one time yesterday after eating a gyro. He complains of sharp pain in the chest and the right side that radiates into his neck and shoulder. It started while he was laying down. He did not take any nitroglycerin. He denies any tenderness to the area. It is resolved at this time which he thinks it was Toradol that helped. He denies any recent antibiotic use. He does relate that he is living in an apartment and will be moving to a different apartment on Wednesday. Patient came into [facility] emergency center for evaluation. Chest x-ray reveals no cardiopulmonary disease. WBC 13.9, hemoglobin 14.8, creatinine 0.83, blood sugar 108, lactic acid 1.2, proBNP 41, influenza testing negative, troponins negative on 3 draws. Patient has been placed in the observation unit and cardiology consult requested. 04/03: Patient denies having any chest pain and shortness of breath is improving. He has been seen by cardiology and cleared for discharge today. Patient is currently on IV Solu-Medrol and will be transitioned to oral prednisone taper for home. Patient will be discharged home today in stable condition. Discharge diagnoses: 1. Acute chest pain with history of coronary artery disease. 2. History of coronary artery disease status post stenting of the mid RCA with bare metal stent. 3. COPD exacerbation. 4. Marijuana use and remote tobacco use. 5. Hypertension. Discharge plan: Home Impression and plan of care have been directed as dictated by the signing physician. Daysi Nunn nurse practitioner acting as scribe for signing physician. Patient Condition at Discharge: Good Plan - Discharge Summary Discharge Rx Participant: No New Discharge Prescriptions: New Famotidine [Pepcid] 20 mg PO DAILY tab predniSONE 0 mg PO DIRECTED #30 tab Continue Albuterol Sulfate [Ventolin HFA] 2 puff INHALATION RT-Q6H PRN PRN Reason: Shortness Of Breath Budesonide [Pulmicort] 0.5 mg INHALATION RT-BID Arformoterol Tartrate [Brovana] 15 mcg INHALATION RT-BID Albuterol Nebulized [Ventolin Nebulized] 2.5 mg INHALATION RT-Q4H PRN PRN Reason: Shortness Of Breath Ipratropium Nebulized [Atrovent Nebulized 0.2 MG/ML] 0.5 mg INHALATION RT-BID Clopidogrel Bisulfate [Plavix] 75 mg PO DAILY #90 tab Atorvastatin [Lipitor] 80 mg PO HS Metoprolol Succinate (ER) [Toprol XL] 25 mg PO DAILY Aspirin EC [Ecotrin Low Dose] 81 mg PO DAILY Discharge Medication List Albuterol Sulfate [Ventolin HFA] 2 puff INHALATION RT-Q6H PRN 09/07/14 [History] Albuterol Nebulized [Ventolin Nebulized] 2.5 mg INHALATION RT-Q4H PRN 03/03/16 [History] Arformoterol Tartrate [Brovana] 15 mcg INHALATION RT-BID 03/03/16 [History] Budesonide [Pulmicort] 0.5 mg INHALATION RT-BID 03/03/16 [History] Ipratropium Nebulized [Atrovent Nebulized 0.2 MG/ML] 0.5 mg INHALATION RT-BID 03/23/17 [History] Clopidogrel Bisulfate [Plavix] 75 mg PO DAILY #90 tab 12/30/18 [Rx] Atorvastatin [Lipitor] 80 mg PO HS 01/06/19 [History] Aspirin EC [Ecotrin Low Dose] 81 mg PO DAILY 04/01/19 [History] Metoprolol Succinate (ER) [Toprol XL] 25 mg PO DAILY 04/01/19 [History] Famotidine [Pepcid] 20 mg PO DAILY tab 04/03/19 [Rx] predniSONE 0 mg PO DIRECTED #30 tab 04/03/19 [Rx] Follow up Appointment(s)/Referral(s): Idris De Luna MD [STAFF PHYSICIAN] - 04/10/19 11:30 am (with Lucy HO) Bear Arias MD [Primary Care Provider] - 04/12/19 1:00 pm Patient Instructions/Handouts: Chest Pain (DC) Discharge Disposition: HOME SELF-CARE
== END 2019-04-03 12:25 | disposition home or self-care (01) ==
LOC: EC 16:15 → 1SOBS 19:44
PROVIDERS: ADMIT Internal Medicine; ATTEND Internal Medicine
DX: J44.1 Chronic obstructive pulmonary disease with (acute) exacerbation (principal); I25.10 Atherosclerotic heart disease of native coronary artery without angina pectoris; I10 Essential (primary) hypertension; Z95.5 Presence of coronary angioplasty implant and graft; Z87.891 Personal history of nicotine dependence; F12.10 Cannabis abuse, uncomplicated; F10.21 Alcohol dependence, in remission; E78.5 Hyperlipidemia, unspecified; I25.2 Old myocardial infarction; M19.90 Unspecified osteoarthritis, unspecified site; Z79.899 Other long term (current) drug therapy; Z79.82 Long term (current) use of aspirin; Z79.52 Long term (current) use of systemic steroids; Z79.02 Long term (current) use of antithrombotics/antiplatelets; Z83.3 Family history of diabetes mellitus; Z82.49 Family history of ischemic heart disease and other diseases of the circulatory system; Z80.1 Family history of malignant neoplasm of trachea, bronchus and lung; Z80.8 Family history of malignant neoplasm of other organs or systems; Z79.51 Long term (current) use of inhaled steroids; Z88.1 Allergy status to other antibiotic agents; F14.21 Cocaine dependence, in remission; Z77.090 Contact with and (suspected) exposure to asbestos
CPT/HCPCS: 93005 ×3; 96375; 96376 ×2; 96374; 99285; 36415; 94640 ×5; 94760; 85379; 83880; 80061; 80053; 83605; 83735; 84484 ×2; 85025; 85610; 85730; 87040; 87502; 71046; G0378 ×3; J2930 ×3; J1885

== ENCOUNTER 2019-04-07 14:05 | Inpatient (IN) | payer MEDICARE, OTHER ==
[2019-04-07] MEDS ORDERED: ALBUTEROL NEBULIZED 2.5 MG/3 ML INHALATION STA (14:23)
[2019-04-07] MEDS ORDERED: MAGNESIUM SULFATE-D5W PMX 1 GM in DEXTROSE/WATER 1 100ML.BAG IVPB ONE (14:23)
[2019-04-07] MEDS ORDERED: IPRATROPIUM-ALBUTEROL 3 ML NEB INHALATION STA (14:23)
[2019-04-07] MEDS ORDERED: methylPREDNISolone SOD SUCCI 125 MG/2 ML VIAL IV STA (14:23)
[2019-04-07 14:49] LABS: Basophils # (A) 0.1 k/uL (0-0.2); Basophils % (A) 1 %; Eosinophils # (A) 0.1 k/uL (0-0.7); Eosinophils % (A) 1 %; HCT 45.2 % (39.0-53.0); HGB 15.4 gm/dL (13.0-17.5); Lymphocytes # (A) 3.3 k/uL (1.0-4.8); Lymphocytes % (A) 18 %; MCH 30.1 pg (25.0-35.0); MCV 88.3 fL (80.0-100.0); Monocytes # (A) 0.9 k/uL (0-1.0); Monocytes % (A) 5 %; Neutrophils # (A) 13.9 k/uL (1.3-7.7); Neutrophils % (A) 75 %; Platelet Count 256 k/uL (150-450); RBC 5.12 m/uL (4.30-5.90); RDW 13.1 % (11.5-15.5); WBC 18.6 k/uL (3.8-10.6)
[2019-04-07 14:54] LABS: INR 0.9 (<1.2); Prothrombin Time 9.9 sec (9.0-12.0)
[2019-04-07 14:57] LABS: ALT 24 U/L (4-49); AST 24 U/L (17-59); African American GFR (CKD) >90 (>60 ml/min/1.73 sqM); Albumin 4.4 g/dL (3.5-5.0); Alkaline Phosphatase 120 U/L (38-126); Anion Gap 12 mmol/L; Blood Urea Nitrogen 22 mg/dL (9-20); Calcium 9.5 mg/dL (8.4-10.2); Carbon Dioxide 22 mmol/L (22-30); Chloride 105 mmol/L (98-107); Glucose 151 mg/dL (74-99); Non-African American GFR(CKD) 79 (>60 ml/min/1.73 sqM); Potassium 3.9 mmol/L (3.5-5.1); Sodium 139 mmol/L (137-145); Total Bilirubin 0.9 mg/dL (0.2-1.3); Total Protein 7.3 g/dL (6.3-8.2)
[2019-04-07 15:08] LABS: Partial Thromboplastin Time 20.9 sec (22.0-30.0)
--- NOTE | 2019-04-07 15:51 | XR ---
EXAMINATION TYPE: XR chest 1V portable DATE OF EXAM: 04/07/2019 COMPARISON: 04/01/2019 INDICATION: Short of breath TECHNIQUE: Single frontal view of the chest is obtained. FINDINGS: The heart size is normal. The pulmonary vasculature is normal. The lungs are clear. IMPRESSION: 1. No acute pulmonary process.
[2019-04-07] MEDS ORDERED: NALOXONE 0.4 MG/ML 1 ML VIAL IV PRN (16:31)
--- NOTE | 2019-04-07 16:31 | ED ---
SOB HPI - General Chief Complaint: Shortness of Breath Stated Complaint: ELISEO Time Seen by Provider: 04/07/19 14:05 Source: patient Mode of arrival: ambulatory Limitations: no limitations - History of Present Illness Initial Comments: The patient is a 58-year-old male with past history of coronary artery disease and COPD who presents emergency Department with respiratory distress. He admits to COPD and is not on any home oxygen. He does see Dr. Hudson. He was recently hospitalized for COPD exacerbation. Discharged from the hospital and saw Dr. Hudson in office yesterday. Dr. Hudson was concerned about his work of breathing and therefore referred him into the emergency room for evaluation. Patient was also given a prescription for amoxicillin at that time. He states that he went home instead of coming to the hospital. His breathing worsened overnight to the point where he came into the emergency room today for evaluation. He has been intubated 3 times for his breathing. States that this time he is a DO NOT RESUSCITATE. He denies any chest pain. Does admit to chest wall pain secondary to coughing. Has had yellow sputum production. Admits to chills without fevers. No ripping or tearing sensation to his back. He has a history of one stent placement which was done in last year. Does have other further coronary occlusions up to 60% which are being medically managed. Denies any lower extremity swelling. No calf pain. No recent travel. There are no other alleviating, precipitating or modifying factors - Related Data Home Medications Medication Instructions Recorded Confirmed Albuterol Sulfate [Ventolin HFA] 2 puff INHALATION RT-Q6H PRN 09/07/14 04/07/19 Albuterol Nebulized [Ventolin 2.5 mg INHALATION RT-Q4H PRN 03/03/16 04/07/19 Nebulized] Arformoterol Tartrate [Brovana] 15 mcg INHALATION RT-BID 03/03/16 04/07/19 Budesonide [Pulmicort] 0.5 mg INHALATION RT-BID 03/03/16 04/07/19 Ipratropium Nebulized [Atrovent 0.5 mg INHALATION RT-BID 03/23/17 04/07/19 Nebulized 0.2 MG/ML] Aspirin EC [Ecotrin Low Dose] 81 mg PO DAILY 04/01/19 04/07/19 Metoprolol Succinate (ER) [Toprol 25 mg PO DAILY 04/01/19 04/07/19 XL] Atorvastatin [Lipitor] 40 mg PO HS 04/07/19 04/07/19 Previous Rx's Medication Instructions Recorded Clopidogrel Bisulfate [Plavix] 75 mg PO DAILY #90 tab 12/30/18 Amoxicillin/Potassium Clav 1 tab PO BID 3 Days #6 tab 04/15/19 [Augmentin 875-125 Tablet] Clotrimazole Leah [Mycelex 10 mg MUCOUS MEM 5XD #25 leah 04/15/19 Leah] Famotidine [Pepcid] 20 mg PO DAILY tab 04/15/19 Fluticasone Nasal [place] [Flonase 2 spray EA NOSTRIL DAILY #1 device 04/15/19 Nasal [place]] Montelukast [Singulair] 10 mg PO HS #30 tab 04/15/19 guaiFENesin [Mucinex] 600 mg PO Q12HR tablet.er 04/15/19 predniSONE 0 mg PO DIRECTED #30 tab 04/15/19 Allergies Allergy/AdvReac Type Severity Reaction Status Date / Time levofloxacin [From Levaquin] Allergy Rash/Hives Verified 04/07/19 17:17 Review of Systems ROS Statement: Those systems with pertinent positive or pertinent negative responses have been documented in the HPI. ROS Other: All systems not noted in ROS Statement are negative. Past Medical History Past Medical History: Coronary Artery Disease (CAD), COPD, Myocardial Infarction ([place]) Additional Past Medical History / Comment(s): Pt states he has hx of 3 respiratory arrests and was vented, generalized arthritis, Last Myocardial Infarction Date:: History of Any Multi-Drug Resistant Organisms: None Reported Past Surgical History: Adenoidectomy, Heart Catheterization With Stent, Hernia Repair, Joint Replacement, Orthopedic Surgery, Tonsillectomy Additional Past Surgical History / Comment(s): R inguinal hernia repair, L rotator cuff repair, bialteral total knee arthroplasties, R shoulder spur removal, teeth extracted, colonoscopy-normal. third hernia repair, left side Past Anesthesia/Blood Transfusion Reactions: No Reported Reaction Date of Last Stent Placement:: 2018 Past Psychological History: No Psychological Hx Reported Smoking Status: Former smoker Past Alcohol Use History: None Reported Past Drug Use History: Marijuana - Past Family History Father Family Medical History: Cancer Additional Family Medical History / Comment(s): Father of lung cancer at the age of 62. He was a smoker. Mother Family Medical History: Diabetes Mellitus, Hypertension Additional Family Medical History / Comment(s): Mother at age 78 from brainstem cancer. Brother(s) Additional Family Medical History / Comment(s): Patient's 1 brother with history of AAA. Patient has 4 sisters and he does not know any of their medical history. Patient's 1 son and 1 daughter living. He had one daughter that at 7 weeks old from a congenital heart. General Exam Limitations: no limitations General appearance: alert, in distress Head exam: Present: atraumatic, normocephalic Eye exam: Present: PERRL Pupils: Present: normal accommodation ENT exam: Present: mucous membranes moist Neck exam: Absent: tenderness, meningismus Respiratory exam: Present: respiratory distress, wheezes, accessory muscle use, decreased breath sounds, other (tachypnia, conversational dyspnea) Cardiovascular Exam: Present: regular rate, normal rhythm GI/Abdominal exam: Present: soft. Absent: distended, tenderness, guarding, rebound Neurological exam: Present: alert, oriented X3 Psychiatric exam: Present: anxious Skin exam: Present: warm, dry, intact Course Vital Signs 04/07/19 04/07/19 04/07/19 14:10 14:22 14:27 Temperature 98.2 F Pulse Rate 53 L 109 H 118 H Respiratory 29 H 40 H Rate Blood Pressure 127/87 145/126 O2 Sat by Pulse 97 97 Oximetry 04/07/19 04/07/19 04/07/19 14:36 14:37 14:52 Temperature Pulse Rate 108 H 113 H 101 H Respiratory Rate Blood Pressure O2 Sat by Pulse Oximetry 04/07/19 04/07/19 04/07/19 15:14 15:23 17:02 Temperature Pulse Rate 112 H 104 H 90 Respiratory 32 H 20 Rate Blood Pressure 121/86 122/81 O2 Sat by Pulse 97 98 Oximetry 04/07/19 18:07 Temperature 97.9 F Pulse Rate 94 Respiratory 26 H Rate Blood Pressure 126/84 O2 Sat by Pulse 97 Oximetry Medical Decision Making - Medical Decision Making Upon arrival the patient is placed promptly into trauma bay 1. He is placed on a nonrebreather. He has very diminished breath sounds bilaterally. He is given 2 DuoNeb breathing treatments followed by several albuterol breathing treatments. Peripheral IV is established the patient is given a gram of magnesium and 125 mg of Solu-Medrol. Laboratory studies were conducted. Demonstrates a white blood cell count of 18.6. CMP shows a glucose of 151. Troponin is negative. Influenza A and B are negative. Chest x-ray demonstrates no acute cardiopulmonary process. The patient is reevaluated has had improvement in his symptoms. He demonstrates no respiratory distress at this time. I did recommend hospital admission. I will try a blood culture on the patient start him on Zosyn and Vanco. I called and discussed the case with Dr. Christian who accepted admission for the patient. I will place Dr. Hudson on consult. The patient was then sent to the floor in stable condition - Lab Data Result diagrams: 04/10/19 05:43 04/13/19 07:52 Lab Results 04/07/19 04/07/19 04/07/19 Range/Units 14:29 14:29 14:29 WBC 18.6 H (3.8-10.6) k/uL RBC 5.12 (4.30-5.90) m/uL Hgb 15.4 (13.0-17.5) gm/dL Hct 45.2 (39.0-53.0) % MCV 88.3 (80.0-100.0) fL MCH 30.1 (25.0-35.0) pg MCHC 34.0 (31.0-37.0) g/dL RDW 13.1 (11.5-15.5) % Plt Count 256 (150-450) k/uL Neutrophils % 75 % Lymphocytes % 18 % Monocytes % 5 % Eosinophils % 1 % Basophils % 1 % Neutrophils # 13.9 H (1.3-7.7) k/uL Lymphocytes # 3.3 (1.0-4.8) k/uL Monocytes # 0.9 (0-1.0) k/uL Eosinophils # 0.1 (0-0.7) k/uL Basophils # 0.1 (0-0.2) k/uL PT (9.0-12.0) sec INR (<1.2) APTT (22.0-30.0) sec Sodium 139 (137-145) mmol/L Potassium 3.9 (3.5-5.1) mmol/L Chloride 105 (98-107) mmol/L Carbon Dioxide 22 (22-30) mmol/L Anion Gap 12 mmol/L BUN 22 H (9-20) mg/dL Creatinine 1.05 (0.66-1.25) mg/dL Est GFR (CKD-EPI)AfAm >90 (>60 ml/min/1.73 sqM) Est GFR (CKD-EPI)NonAf 79 (>60 ml/min/1.73 sqM) Glucose 151 H (74-99) mg/dL Calcium 9.5 (8.4-10.2) mg/dL Magnesium 2.0 (1.6-2.3) mg/dL Total Bilirubin 0.9 (0.2-1.3) mg/dL AST 24 (17-59) U/L ALT 24 (4-49) U/L Alkaline Phosphatase 120 (38-126) U/L Troponin I (0.000-0.034) ng/mL NT-Pro-B Natriuret Pep pg/mL Total Protein 7.3 (6.3-8.2) g/dL Albumin 4.4 (3.5-5.0) g/dL Influenza Type A RNA Not Detected (Not Detectd) Influenza Type B (PCR) Not Detected (Not Detectd) 04/07/19 04/07/19 04/07/19 Range/Units 14:29 14:29 14:29 WBC (3.8-10.6) k/uL RBC (4.30-5.90) m/uL Hgb (13.0-17.5) gm/dL Hct (39.0-53.0) % MCV (80.0-100.0) fL MCH (25.0-35.0) pg MCHC (31.0-37.0) g/dL RDW (11.5-15.5) % Plt Count (150-450) k/uL Neutrophils % % Lymphocytes % % Monocytes % % Eosinophils % % Basophils % % Neutrophils # (1.3-7.7) k/uL Lymphocytes # (1.0-4.8) k/uL Monocytes # (0-1.0) k/uL Eosinophils # (0-0.7) k/uL Basophils # (0-0.2) k/uL PT 9.9 (9.0-12.0) sec INR 0.9 (<1.2) APTT 20.9 L (22.0-30.0) sec Sodium (137-145) mmol/L Potassium (3.5-5.1) mmol/L Chloride (98-107) mmol/L Carbon Dioxide (22-30) mmol/L Anion Gap mmol/L BUN (9-20) mg/dL Creatinine (0.66-1.25) mg/dL Est GFR (CKD-EPI)AfAm (>60 ml/min/1.73 sqM) Est GFR (CKD-EPI)NonAf (>60 ml/min/1.73 sqM) Glucose (74-99) mg/dL Calcium (8.4-10.2) mg/dL Magnesium (1.6-2.3) mg/dL Total Bilirubin (0.2-1.3) mg/dL AST (17-59) U/L ALT (4-49) U/L Alkaline Phosphatase (38-126) U/L Troponin I <0.012 (0.000-0.034) ng/mL NT-Pro-B Natriuret Pep 78 pg/mL Total Protein (6.3-8.2) g/dL Albumin (3.5-5.0) g/dL Influenza Type A RNA (Not Detectd) Influenza Type B (PCR) (Not Detectd) - EKG Data EKG Comments: EKG demonstrates a sinus tachycardia with a ventricular rate of 104. There are occasional PVCs. Significant baseline artifact. MD interval of 144. No acute ST segment elevations or depressions. QRS is 78. QTC of 412. Disposition Clinical Impression: Acute exacerbation of chronic obstructive pulmonary disease, Tachycardia Disposition: ADMITTED IP TO THIS HOSP Condition: Good Is patient prescribed a controlled substance at d/c from ED?: No Decision to Admit Reason: Admit from EC Decision Date: 04/07/19 Decision Time: 16:31
[2019-04-07] MEDS ORDERED: PIPERACILLIN-TAZOBACTAM 3.375 GM in SODIUM CHLORIDE 0.9% 100 ML IVPB STA (16:40)
[2019-04-07] MEDS ORDERED: VANCOMYCIN IV PER PHARMACY 1 EACH MISC MISCELLANE PRN (16:43)
[2019-04-07] MEDS ORDERED: VANCOMYCIN 1,750 MG in SODIUM CHLORIDE 0.9% 500 ML 500 ML IVPB ONE (17:00)
[2019-04-07] MEDS: IPRATROPIUM-ALBUTEROL 3 ML NEB INHALATION SCH ×2 (19:44→23:52)
[2019-04-07] MEDS: BUDESONIDE 0.5 MG/2 ML NEBU INHALATION SCH (19:44)
[2019-04-07] MEDS: FORMOTEROL FUMARATE 20 MCG/2 ML NEBU INHALATION SCH (19:44)
[2019-04-07] MEDS: INSULIN ASPART (NovoLOG) 100 UNIT/ML VIAL SQ SCH (20:49)
[2019-04-07 20:51] LABS: Glucose,Whole Blood 202 mg/dL (75-99)
[2019-04-07] MEDS ORDERED: ATORVASTATIN 80 MG TAB PO SCH (21:00)
[2019-04-08] MEDS: VANCOMYCIN 1,500 MG in SODIUM CHLORIDE 0.9% 250 ML IVPB SCH ×3 (02:01→19:52)
[2019-04-08] MEDS: IPRATROPIUM-ALBUTEROL 3 ML NEB INHALATION SCH ×5 (04:45→20:19)
[2019-04-08 06:06] LABS: Basophils % (A) 0 %; Eosinophils % (A) 0 %; HCT 37.3 % (39.0-53.0); HGB 12.8 gm/dL (13.0-17.5); Lymphocytes # (A) 1.5 k/uL (1.0-4.8); Lymphocytes % (A) 12 %; MCH 30.7 pg (25.0-35.0); MCHC 34.4 g/dL (31.0-37.0); MCV 89.4 fL (80.0-100.0); Mean Platelet Volume 8.1; Monocytes # (A) 0.3 k/uL (0-1.0); Monocytes % (A) 3 %; Neutrophils # (A) 10.4 k/uL (1.3-7.7); Neutrophils % (A) 84 %; Platelet Count 229 k/uL (150-450); RBC 4.17 m/uL (4.30-5.90); RDW 13.2 % (11.5-15.5); WBC 12.3 k/uL (3.8-10.6)
[2019-04-08 06:15] LABS: Glucose,Whole Blood 129 mg/dL (75-99)
[2019-04-08] MEDS: INSULIN ASPART (NovoLOG) 100 UNIT/ML VIAL SQ SCH ×4 (06:22→20:29)
[2019-04-08 06:31] LABS: African American GFR (CKD) >90 (>60 ml/min/1.73 sqM); Anion Gap 7 mmol/L; Blood Urea Nitrogen 18 mg/dL (9-20); Calcium 8.7 mg/dL (8.4-10.2); Carbon Dioxide 24 mmol/L (22-30); Chloride 106 mmol/L (98-107); Glucose 135 mg/dL (74-99); Non-African American GFR(CKD) >90 (>60 ml/min/1.73 sqM); Potassium 4.3 mmol/L (3.5-5.1); Sodium 137 mmol/L (137-145)
[2019-04-08] MEDS: FORMOTEROL FUMARATE 20 MCG/2 ML NEBU INHALATION SCH ×2 (08:32→20:19)
[2019-04-08] MEDS: BUDESONIDE 0.5 MG/2 ML NEBU INHALATION SCH ×2 (08:32→20:19)
[2019-04-08] MEDS: FAMOTIDINE 20 MG TAB PO SCH (10:15)
[2019-04-08] MEDS: METOPROLOL SUCCINATE (ER) 25 MG TAB.ER.24H PO SCH (10:15)
[2019-04-08] MEDS: ASPIRIN 81 MG PO SCH (10:15)
[2019-04-08] MEDS: CLOPIDOGREL 75 MG TAB PO SCH (10:15)
[2019-04-08] MEDS: methylPREDNISolone SOD SUCCI 40 MG/ML 1 ML VIAL IV SCH ×3 (10:16→23:22)
[2019-04-08 12:01] LABS: Glucose,Whole Blood 183 mg/dL (75-99)
[2019-04-08] MEDS: guaiFENesin 600 MG TABLET.ER PO SCH ×2 (12:22→20:29)
--- NOTE | 2019-04-08 14:07 | P.HPIM ---
History of Present Illness H&P Date: 04/08/19 This is a 58-year-old male with past medical history of coronary artery disease and COPD. He presented to the emergency department with respiratory distress. Patient was recently admitted into the hospital for acute chest pain where he was started on oral prednisone. Patient had decreased to 30 mg prednisone and began to have shortness of breath and difficulty breathing. Patient was seen by Dr. Hudson on Wednesday who sent him to be seen in the emergency room for COPD exacerbation. The patient was given a prescription for amoxicillin that he started however due to the increase in difficulty breathing he came to the emergency room. Patient denies any chest pain at this time. He is coughing up yellow thick sputum. Patient did not have any fevers however he did experience chills. At this time patient is resting in room sitting up in bed. Patient has shortness of breath with activity and conversation. Patient is coughing up green/yellow sputum. Which will be obtained for a sputum culture. Patient was given antibiotics while in the hospital previously however the antibiotics were stopped once he was sent home. Then patient was seen by Dr. Hudson he was given amoxicillin however he did not start it due to increased shortness of breath. Patient stated that he was doing fine on the oral prednisone until he decreased to the 30 mg per day. Patient also states that he did not smoke cigarettes or marijuana since his last discharge from the hospital. Review of Systems Review Of Systems: Constitutional: No fever, no chills, no night sweats. No weight change. No weakness, reports fatigue no lethargy. No daytime sleepiness. EENT: No headache. No blurred vision or double vision, no loss of vision. No loss of Hearing, no ringing in the ears, no dizziness. No nasal drainage or congestion. No epistaxis. No sore throat. Lungs: Reports shortness of breath and cough, sputum production. Reports wheezing. Cardiovascular: No chest pain, no lower extremity edema. No palpitations. No paroxysmal nocturnal dyspnea. No orthopnea. No lightheadedness or dizziness. No syncopal episodes. Abdominal: no abdominal discomfort. No nausea, vomiting. no diarrhea. No constipation. No bloody or tarry stools. no loss of appetite. Genitourinary: No dysuria, increased frequency, urgency. No urinary retention. Musculoskeletal: No myalgias. No muscle weakness, no gait dysfunction, no frequent falls. No back pain. No neck pain. Integumentary: No wounds, no lesions. No rash or pruritus. No unusual bruising. No change in hair or nails. Neurologic: No aphasia. No facial droop. No change in mentation. No head injury. No headache. No paralysis. No paresthesia. Psychiatric: No depression. No anxiety. No mood swings. Endocrine: No abnormal blood sugars. No weight change. No excessive sweating or thirst. Past Medical History Past Medical History: Coronary Artery Disease (CAD), COPD, Myocardial Infarction ([place]) Additional Past Medical History / Comment(s): Pt states he has hx of 3 respiratory arrests and was vented, generalized arthritis, Last Myocardial Infarction Date:: History of Any Multi-Drug Resistant Organisms: None Reported Past Surgical History: Adenoidectomy, Heart Catheterization With Stent, Hernia Repair, Joint Replacement, Orthopedic Surgery, Tonsillectomy Additional Past Surgical History / Comment(s): R inguinal hernia repair, L rotator cuff repair, bialteral total knee arthroplasties, R shoulder spur removal, teeth extracted, colonoscopy-normal. third hernia repair, left side Past Anesthesia/Blood Transfusion Reactions: No Reported Reaction Date of Last Stent Placement:: 2018 Past Psychological History: No Psychological Hx Reported Smoking Status: Former smoker Past Alcohol Use History: None Reported Past Drug Use History: Marijuana - Past Family History Father Family Medical History: Cancer Additional Family Medical History / Comment(s): Father of lung cancer at the age of 62. He was a smoker. Mother Family Medical History: Diabetes Mellitus, Hypertension Additional Family Medical History / Comment(s): Mother at age 78 from brainstem cancer. Brother(s) Additional Family Medical History / Comment(s): Patient's 1 brother with history of AAA. Patient has 4 sisters and he does not know any of their medical history. Patient's 1 son and 1 daughter living. He had one daughter that at 7 weeks old from a congenital heart. Medications and Allergies Home Medications Medication Instructions Recorded Confirmed Type Albuterol Sulfate [Ventolin HFA] 2 puff INHALATION RT-Q6H PRN 09/07/14 04/07/19 History Albuterol Nebulized [Ventolin 2.5 mg INHALATION RT-Q4H PRN 03/03/16 04/07/19 History Nebulized] Arformoterol Tartrate [Brovana] 15 mcg INHALATION RT-BID 03/03/16 04/07/19 History Budesonide [Pulmicort] 0.5 mg INHALATION RT-BID 03/03/16 04/07/19 History Ipratropium Nebulized [Atrovent 0.5 mg INHALATION RT-BID 03/23/17 04/07/19 Hi story Nebulized 0.2 MG/ML] Clopidogrel Bisulfate [Plavix] 75 mg PO DAILY #90 tab 12/30/18 04/07/19 Rx Aspirin EC [Ecotrin Low Dose] 81 mg PO DAILY 04/01/19 04/07/19 History Metoprolol Succinate (ER) [Toprol 25 mg PO DAILY 04/01/19 04/07/19 History XL] Amoxicillin 500 mg PO TID 04/07/19 04/07/19 History Atorvastatin [Lipitor] 40 mg PO HS 04/07/19 04/07/19 History predniSONE See Taper PO DIRECTED 04/07/19 04/07/19 History Allergies Allergy/AdvReac Type Severity Reaction Status Date / Time levofloxacin [From Levaquin] Allergy Rash/Hives Verified 04/07/19 17:17 Physical Exam Vitals: Vital Signs Temp Pulse Pulse Resp BP BP Pulse Ox 04/08/19 11:41 88 04/08/19 11:40 98.1 F 88 18 116/70 98 04/08/19 11:33 82 04/08/19 08:58 84 04/08/19 08:49 82 04/08/19 08:48 82 04/08/19 08:34 78 97 04/08/19 08:00 97.9 F 82 18 159/101 98 04/08/19 04:55 88 04/08/19 04:45 88 98 04/08/19 03:02 98.5 F 70 18 108/67 97 04/08/19 00:01 92 04/07/19 23:44 88 04/07/19 23:05 98.2 F 83 18 106/65 97 04/07/19 20:08 88 20 04/07/19 19:58 84 20 04/07/19 19:45 80 20 100 04/07/19 19:40 98.3 F 94 22 125/75 92 L 04/07/19 18:50 32 H 04/07/19 18:07 97.9 F 94 26 H 126/84 97 04/07/19 17:02 90 20 122/81 98 04/07/19 15:23 104 H 32 H 121/86 97 04/07/19 15:14 112 H 04/07/19 14:52 101 H 04/07/19 14:37 113 H 04/07/19 14:36 108 H 04/07/19 14:27 118 H 04/07/19 14:22 109 H 40 H 145/126 97 04/07/19 14:10 98.2 F 53 L 29 H 127/87 97 Intake and Output 04/07/19 04/08/19 04/08/19 22:59 06:59 14:59 Other: Weight 88.451 kg 86.5 kg 86.5 kg General Appearance: Alert, cooperative, moderate distress with conversation and activity, appears stated age. Neck HEENT: Supple, no lymphadenopathy, no thyroid enlargement, no carotid bruits. Lungs: Wheezing and rhonchi Chest Wall: Chest wall decrease expansion with deep inspiration no tenderness and no deformity was found on exam, no costochondral pain or discomfort. Heart: Regular rate and rhythm, S1, S2 normal, no murmur, rub or gallop. Back: Symmetric, no curvature, ROM normal, no CVA tenderness. Abdomen: Soft, non-tender, no rebound or rigidity, no hepatosplenomegaly. Extremities: Extremities normal, atraumatic, no cyanosis or edema. Pulses: 2+ and symmetric. Skin: Skin color, texture, tugor normal, no rashes or lesions. Neurologic: Alert oriented x3 cranial nerves II through XII intact, no motor deficit, no abnormal balance or gait Results CBC & Chem 7: 04/08/19 05:21 04/08/19 05:21 Labs: Abnormal Lab Results - Last 24 Hours (Table) 04/07/19 04/07/19 04/07/19 Range/Units 14:29 14:29 14:29 WBC 18.6 H (3.8-10.6) k/uL RBC (4.30-5.90) m/uL Hgb (13.0-17.5) gm/dL Hct (39.0-53.0) % Neutrophils # 13.9 H (1.3-7.7) k/uL APTT 20.9 L (22.0-30.0) sec BUN 22 H (9-20) mg/dL Glucose 151 H (74-99) mg/dL POC Glucose (mg/dL) (75-99) mg/dL 04/07/19 04/08/19 04/08/19 Range/Units 20:46 05:21 05:21 WBC 12.3 H (3.8-10.6) k/uL RBC 4.17 L (4.30-5.90) m/uL Hgb 12.8 L (13.0-17.5) gm/dL Hct 37.3 L (39.0-53.0) % Neutrophils # 10.4 H (1.3-7.7) k/uL APTT (22.0-30.0) sec BUN (9-20) mg/dL Glucose 135 H (74-99) mg/dL POC Glucose (mg/dL) 202 H (75-99) mg/dL 04/08/19 04/08/19 Range/Units 06:13 11:48 WBC (3.8-10.6) k/uL RBC (4.30-5.90) m/uL Hgb (13.0-17.5) gm/dL Hct (39.0-53.0) % Neutrophils # (1.3-7.7) k/uL APTT (22.0-30.0) sec BUN (9-20) mg/dL Glucose (74-99) mg/dL POC Glucose (mg/dL) 129 H 183 H (75-99) mg/dL Thrombosis Risk Factor Assmnt - Choose All That Apply Each Factor Represents 1 point: Age 41-60 years Thrombosis Risk Factor Assessment Total Risk Factor Score: 1 Thrombosis Risk Factor Assessment Level: Low Risk Assessment and Plan Plan: 1. Acute dyspnea with COPD exacerbation. Continue Pulmicort,Perforomist, DuoNeb, Mucinex 600 mg daily at bedtime, Solu-Medrol 40 mg IV every 8 hour, vancomycin 500 mg every 8 hour, monitor blood sugar and cover with NovoLog sliding scale, consult Dr. Hudson for pulmonology, blood cultures and sputum cultures obtained. 2. History of coronary artery disease with post-stenting of the mid RCA, with bare metal stent. Continue aspirin, Lipitor 80 mg at bedtime, Plavix 75 mg daily, Toprol-XL 25 mg daily. 3. Marijuana and remote tobacco use. Patient denies smoking upon discharge to the hospital and readmission. 4. Hypertension. Continue Lopressor. 5. DVT prophylaxis. SADIE orta. 6. GI prophylaxis Pepcid 20 mg daily Discharge plan: Minimal 2 nights day, discharged home CODE STATUS: No code no CPR and no intubation per patient Impression and plan of care have been directed as dictated by the signing physician. Isabel De La Cruz nurse practitioner acting as scribe for signing physician.
--- NOTE | 2019-04-08 15:58 | P.CNPUL ---
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 Patient was recently admitted into the hospital for acute chest pain where he was started on oral prednisone. Patient had decreased to 30 mg prednisone and began to have shortness of breath and difficulty breathing. Patient was seen by myself on Wednesday The patient was given a prescription for amoxicillin that he started however due to the increase in difficulty breathing he came to the emergency room. Patient denies any chest pain at this time. He is coughing up yellow thick sputum. Patient did not have any fevers however he did experience chills. Review of Systems All systems: negative Past Medical History Past Medical History: Coronary Artery Disease (CAD), COPD, Myocardial Infarction (UT) Additional Past Medical History / Comment(s): Pt states he has hx of 3 respiratory arrests and was vented, generalized arthritis, Last Myocardial Infarction Date:: History of Any Multi-Drug Resistant Organisms: None Reported Past Surgical History: Adenoidectomy, Heart Catheterization With Stent, Hernia Repair, Joint Replacement, Orthopedic Surgery, Tonsillectomy Additional Past Surgical History / Comment(s): R inguinal hernia repair, L rotat or cuff repair, bialteral total knee arthroplasties, R shoulder spur removal, teeth extracted, colonoscopy-normal. third hernia repair, left side Past Anesthesia/Blood Transfusion Reactions: No Reported Reaction Date of Last Stent Placement:: 2018 Past Psychological History: No Psychological Hx Reported Smoking Status: Former smoker Past Alcohol Use History: None Reported Past Drug Use History: Marijuana - Past Family History Father Family Medical History: Cancer Additional Family Medical History / Comment(s): Father of lung cancer at the age of 62. He was a smoker. Mother Family Medical History: Diabetes Mellitus, Hypertension Additional Family Medical History / Comment(s): Mother at age 78 from brainstem cancer. Brother(s) Additional Family Medical History / Comment(s): Patient's 1 brother with history of AAA. Patient has 4 sisters and he does not know any of their medical history. Patient's 1 son and 1 daughter living. He had one daughter that at 7 weeks old from a congenital heart. Medications and Allergies Home Medications Medication Instructions Recorded Confirmed Type Albuterol Sulfate [Ventolin HFA] 2 puff INHALATION RT-Q6H PRN 09/07/14 04/07/19 History Albuterol Nebulized [Ventolin 2.5 mg INHALATION RT-Q4H PRN 03/03/16 04/07/19 History Nebulized] Arformoterol Tartrate [Brovana] 15 mcg INHALATION RT-BID 03/03/16 04/07/19 History Budesonide [Pulmicort] 0.5 mg INHALATION RT-BID 03/03/16 04/07/19 History Ipratropium Nebulized [Atrovent 0.5 mg INHALATION RT-BID 03/23/17 04/07/19 History Nebulized 0.2 MG/ML] Clopidogrel Bisulfate [Plavix] 75 mg PO DAILY #90 tab 12/30/18 04/07/19 Rx Aspirin EC [Ecotrin Low Dose] 81 mg PO DAILY 04/01/19 04/07/19 History Metoprolol Succinate (ER) [Toprol 25 mg PO DAILY 04/01/19 04/07/19 History XL] Amoxicillin 500 mg PO TID 04/07/19 04/07/19 History Atorvastatin [Lipitor] 40 mg PO HS 04/07/19 04/07/19 History predniSONE See Taper PO DIRECTED 04/07/19 04/07/19 History Allergies Allergy/AdvReac Type Severity Reaction Status Date / Time levofloxacin [From Levaquin] Allergy Rash/Hives Verified 04/07/19 17:17 Physical Exam Vitals: Vital Signs Temp Pulse Pulse Resp BP BP Pulse Ox 04/08/19 11:41 88 04/08/19 11:40 98.1 F 88 18 116/70 98 04/08/19 11:33 82 04/08/19 08:58 84 04/08/19 08:49 82 04/08/19 08:48 82 04/08/19 08:34 78 97 04/08/19 08:00 97.9 F 82 18 159/101 98 04/08/19 04:55 88 04/08/19 04:45 88 98 04/08/19 03:02 98.5 F 70 18 108/67 97 04/08/19 00:01 92 04/07/19 23:44 88 04/07/19 23:05 98.2 F 83 18 106/65 97 04/07/19 20:08 88 20 04/07/19 19:58 84 20 04/07/19 19:45 80 20 100 04/07/19 19:40 98.3 F 94 22 125/75 92 L 04/07/19 18:50 32 H 04/07/19 18:07 97.9 F 94 26 H 126/84 97 04/07/19 17:02 90 20 122/81 98 Intake and Output 04/08/19 04/08/19 04/08/19 06:59 14:59 22:59 Other: Weight 86.5 kg 86.5 kg General Appearance: Alert, cooperative, moderate distress with conversation and activity, appears stated age. Neck HEENT: Supple, no lymphadenopathy, no thyroid enlargement, no carotid bruits. Lungs: Wheezing and rhonchi Chest Wall: Chest wall decrease expansion with deep inspiration no tenderness and no deformity was found on exam, no costochondral pain or discomfort. Heart: Regular rate and rhythm, S1, S2 normal, no murmur, rub or gallop. Back: Symmetric, no curvature, ROM normal, no CVA tenderness. Abdomen: Soft, non-tender, no rebound or rigidity, no hepatosplenomegaly. Extremities: Extremities normal, atraumatic, no cyanosis or edema. Pulses: 2+ and symmetric. Skin: Skin color, texture, tugor normal, no rashes or lesions. Neurologic: Alert oriented x3 cranial nerves II through XII intact, no motor deficit, no abnormal balance or gait Results - Laboratory Findings CBC and BMP: 04/08/19 05:21 04/08/19 05:21 PT/INR, D-dimer PT 9.9 sec (9.0-12.0) 04/07/19 14:29 INR 0.9 (<1.2) 04/07/19 14:29 Abnormal lab findings: Abnormal Labs 04/07/19 04/07/19 04/07/19 14:29 14:29 14:29 WBC 18.6 H RBC Hgb Hct Neutrophils # 13.9 H APTT 20.9 L BUN 22 H Glucose 151 H POC Glucose (mg/dL) 04/07/19 04/08/19 04/08/19 20:46 05:21 05:21 WBC 12.3 H RBC 4.17 L Hgb 12.8 L Hct 37.3 L Neutrophils # 10.4 H APTT BUN Glucose 135 H POC Glucose (mg/dL) 202 H 04/08/19 04/08/19 06:13 11:48 WBC RBC Hgb Hct Neutrophils # APTT BUN Glucose POC Glucose (mg/dL) 129 H 183 H - Diagnostic Findings Chest x-ray: report reviewed, image reviewed (Finding as noted above) Assessment and Plan Assessment: Acute COPD exacerbation Coronary artery disease with history of stent in RCA Hypertension hypertensive cardiovascular disease History of substance use IVDA IN past Plan: Continue IV steroids Broad-spectrum antibiotics Breathing treatments Supplemental oxygen Increase activity as tolerated Resume home medications Further recommendations pending plan of care as per clinical response of the patient Time with Patient: Greater than 30
[2019-04-08] MEDS ORDERED: VANCOMYCIN TROUGH DUE 1 EACH MISC MISCELLANE ONE (17:00)
[2019-04-08 17:20] LABS: Glucose,Whole Blood 152 mg/dL (75-99)
[2019-04-08] MEDS: VANCOMYCIN 1,750 MG in SODIUM CHLORIDE 0.9% 500 ML 500 ML IVPB SCH (19:25)
[2019-04-08 20:23] LABS: Glucose,Whole Blood 169 mg/dL (75-99)
[2019-04-08] MEDS: ATORVASTATIN 40 MG TAB PO SCH (20:29)
[2019-04-09] MEDS: IPRATROPIUM-ALBUTEROL 3 ML NEB INHALATION SCH ×7 (00:06→23:13)
[2019-04-09] MEDS: VANCOMYCIN 1,750 MG in SODIUM CHLORIDE 0.9% 500 ML 500 ML IVPB SCH ×3 (03:03→21:03)
[2019-04-09 05:57] LABS: Glucose,Whole Blood 149 mg/dL (75-99)
[2019-04-09] MEDS: INSULIN ASPART (NovoLOG) 100 UNIT/ML VIAL SQ SCH ×4 (06:00→21:02)
[2019-04-09 06:31] LABS: African American GFR (CKD) >90 (>60 ml/min/1.73 sqM); Non-African American GFR(CKD) >90 (>60 ml/min/1.73 sqM)
[2019-04-09] MEDS: BUDESONIDE 0.5 MG/2 ML NEBU INHALATION SCH ×2 (08:39→17:53)
[2019-04-09] MEDS: FORMOTEROL FUMARATE 20 MCG/2 ML NEBU INHALATION SCH ×2 (08:39→17:53)
[2019-04-09] MEDS: guaiFENesin 600 MG TABLET.ER PO SCH ×2 (09:10→21:03)
[2019-04-09] MEDS: methylPREDNISolone SOD SUCCI 40 MG/ML 1 ML VIAL IV SCH ×2 (09:10→17:30)
[2019-04-09] MEDS: FAMOTIDINE 20 MG TAB PO SCH (09:10)
[2019-04-09] MEDS: CLOPIDOGREL 75 MG TAB PO SCH (09:10)
[2019-04-09] MEDS: ASPIRIN 81 MG PO SCH (09:10)
[2019-04-09] MEDS: METOPROLOL SUCCINATE (ER) 25 MG TAB.ER.24H PO SCH (09:10)
[2019-04-09 11:50] LABS: Glucose,Whole Blood 185 mg/dL (75-99)
--- NOTE | 2019-04-09 13:56 | P.PN ---
Subjective Progress Note Date: 04/09/19 This is a 58-year-old male with past medical history of coronary artery disease and COPD. He presented to the emergency department with respiratory distress. Patient was recently admitted into the hospital for acute chest pain where he was started on oral prednisone. Patient had decreased to 30 mg prednisone and began to have shortness of breath and difficulty breathing. Patient was seen by Dr. Hudson on Wednesday who sent him to be seen in the emergency room for COPD exacerbation. The patient was given a prescription for amoxicillin that he started however due to the increase in difficulty breathing he came to the emergency room. Patient denies any chest pain at this time. He is coughing up yellow thick sputum. Patient did not have any fevers however he did experience chills. At this time patient is resting in room sitting up in bed. Patient has shortness of breath with activity and conversation. Patient is coughing up green/yellow sputum. Which will be obtained for a sputum culture. Patient was given antibiotics while in the hospital previously however the antibiotics were stopped once he was sent home. Then patient was seen by Dr. Hudson he was given amoxicillin however he did not start it due to increased shortness of breath. Patient stated that he was doing fine on the oral prednisone until he decreased to the 30 mg per day. Patient also states that he did not smoke cigarettes or marijuana since his last discharge from the hospital. 04/09: Patient is sitting up in bed stating that he is feeling better shortness of breath has improved slightly. He continues to have some shortness of breath with activity however he's able to hold a conversation with minimal shortness of breath. Patient's voice is still raspy. He is still coughing up green-yellow sputum. Awaiting sputum culture results. he remained afebrile hemodynamically stable. Continues to have O2. Review Of Systems: Constitutional: No fever, no chills, no night sweats. No weight change. No weakness, reports fatigue no lethargy. No daytime sleepiness. EENT: No headache. No blurred vision or double vision, no loss of vision. No loss of Hearing, no ringing in the ears, no dizziness. No nasal drainage or congestion. No epistaxis. No sore throat. Lungs: Reports shortness of breath and cough, sputum production. Reports wheezing. Cardiovascular: No chest pain, no lower extremity edema. No palpitations. No paroxysmal nocturnal dyspnea. No orthopnea. No lightheadedness or dizziness. No syncopal episodes. Abdominal: no abdominal discomfort. No nausea, vomiting. no diarrhea. No constipation. No bloody or tarry stools. no loss of appetite. Genitourinary: No dysuria, increased frequency, urgency. No urinary retention. Musculoskeletal: No myalgias. No muscle weakness, no gait dysfunction, no frequent falls. No back pain. No neck pain. Integumentary: No wounds, no lesions. No rash or pruritus. No unusual bruising. No change in hair or nails. Neurologic: No aphasia. No facial droop. No change in mentation. No head injury. No headache. No paralysis. No paresthesia. Psychiatric: No depression. No anxiety. No mood swings. Endocrine: No abnormal blood sugars. No weight change. No excessive sweating or thirst. Objective - Vital Signs Vital signs: Vital Signs Temp 97.9 F 04/09/19 08:00 Pulse 80 04/09/19 11:59 Resp 18 04/09/19 08:00 BP 133/84 04/09/19 08:00 Pulse Ox 97 04/09/19 08:42 Intake & Output 04/08/19 04/09/19 04/09/19 18:59 06:59 18:59 Intake Total 995 599 7329 Balance 970 221 8250 Weight 86.5 kg 87.9 kg Intake: Oral 861 230 5227 Other: # Voids 3 - Exam General Appearance: Alert, cooperative, moderate distress with conversation and activity, appears stated age. Neck HEENT: Supple, no lymphadenopathy, no thyroid enlargement, no carotid bruits. Lungs: Wheezing and rhonchi Chest Wall: Chest wall decrease expansion with deep inspiration no tenderness and no deformity was found on exam, no costochondral pain or discomfort. Heart: Regular rate and rhythm, S1, S2 normal, no murmur, rub or gallop. Back: Symmetric, no curvature, ROM normal, no CVA tenderness. Abdomen: Soft, non-tender, no rebound or rigidity, no hepatosplenomegaly. Extremities: Extremities normal, atraumatic, no cyanosis or edema. Pulses: 2+ and symmetric. Skin: Skin color, texture, tugor normal, no rashes or lesions. Neurologic: Alert oriented x3 cranial nerves II through XII intact, no motor deficit, no abnormal balance or gait - Labs CBC & Chem 7: 04/08/19 05:21 04/09/19 05:54 Labs: Abnormal Lab Results - Last 24 Hours (Table) 04/08/19 04/08/19 04/09/19 Range/Units 16:59 20:21 05:55 POC Glucose (mg/dL) 152 H 169 H 149 H (75-99) mg/dL 04/09/19 Range/Units 11:41 POC Glucose (mg/dL) 185 H (75-99) mg/dL Microbiology - Last 24 Hours (Table) 04/08/19 13:00 Gram Stain - Preliminary Sputum Sputum Culture - Preliminary 04/07/19 16:50 Blood Culture - Preliminary Blood No Growth after 24 hours Assessment and Plan Plan: 1. Acute dyspnea with COPD exacerbation. Continue Pulmicort,Perforomist, DuoNeb, Mucinex 600 mg daily at bedtime, Solu-Medrol 40 mg IV every 8 hour, vancomycin 500 mg every 8 hour, monitor blood sugar and cover with NovoLog sliding scale, Dr. Patel consult reviewed, blood cultures and sputum cultures results pending. May be transferred to [facility] with telemetry 2. History of coronary artery disease with post-stenting of the mid RCA, with bare metal stent. Continue aspirin, Lipitor 80 mg at bedtime, Plavix 75 mg daily, Toprol-XL 25 mg daily. 3. Marijuana and remote tobacco use. Patient denies smoking upon discharge to the hospital and readmission. 4. Hypertension. Continue Lopressor. 5. DVT prophylaxis. SADIE amine. 6. GI prophylaxis Pepcid 20 mg daily Discharge plan: Minimal 2 nights day, discharged home CODE STATUS: No code no CPR and no intubation per patient Impression and plan of care have been directed as dictated by the signing physician. Isabel De La Cruz nurse practitioner acting as scribe for signing physician.
[2019-04-09 16:52] LABS: Glucose,Whole Blood 127 mg/dL (75-99)
[2019-04-09] MEDS ORDERED: VANCOMYCIN TROUGH DUE 1 EACH MISC MISCELLANE ONE (18:00)
[2019-04-09 20:43] LABS: Glucose,Whole Blood 146 mg/dL (75-99)
[2019-04-09] MEDS: ATORVASTATIN 40 MG TAB PO SCH (21:02)
--- NOTE | 2019-04-09 22:38 | P.PN ---
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 Patient was recently admitted into the hospital for acute chest pain where he was started on oral prednisone. Patient had decreased to 30 mg prednisone and began to have shortness of breath and difficulty breathing. Patient was seen by myself on Wednesday The patient was given a prescription for amoxicillin that he started however due to the increase in difficulty breathing he came to the emergency room. Patient denies any chest pain at this time. He is coughing up yellow thick sputum. Patient did not have any fevers however he did experience chills. Objective - Vital Signs Vital signs: Vital Signs Temp 98.2 F 04/09/19 16:00 Pulse 80 04/09/19 18:16 Resp 18 04/09/19 16:00 BP 128/76 04/09/19 16:00 Pulse Ox 97 04/09/19 17:57 Intake & Output 04/09/19 04/09/19 04/10/19 06:59 18:59 06:59 Intake Total 100 1480 240 Balance 100 1480 240 Weight 87.9 kg Intake: Oral 100 1480 240 Other: # Voids 1 - Exam General Appearance: Alert, cooperative, moderate distress with conversation and activity, appears stated age. Neck HEENT: Supple, no lymphadenopathy, no thyroid enlargement, no carotid bruits. Lungs: Wheezing and rhonchi Chest Wall: Chest wall decrease expansion with deep inspiration no tenderness and no deformity was found on exam, no costochondral pain or discomfort. Heart: Regular rate and rhythm, S1, S2 normal, no murmur, rub or gallop. Back: Symmetric, no curvature, ROM normal, no CVA tenderness. Abdomen: Soft, non-tender, no rebound or rigidity, no hepatosplenomegaly. Extremities: Extremities normal, atraumatic, no cyanosis or edema. Pulses: 2+ and symmetric. Skin: Skin color, texture, tugor normal, no rashes or lesions. Neurologic: Alert oriented x3 cranial nerves II through XII intact, no motor deficit, no abnormal balance or gait - Labs CBC & Chem 7: 04/08/19 05:21 04/09/19 05:54 Labs: Abnormal Lab Results - Last 24 Hours (Table) 04/09/19 04/09/19 04/09/19 Range/Units 05:55 11:41 16:49 POC Glucose (mg/dL) 149 H 185 H 127 H (75-99) mg/dL 04/09/19 Range/Units 20:41 POC Glucose (mg/dL) 146 H (75-99) mg/dL Microbiology - Last 24 Hours (Table) 04/07/19 16:50 Blood Culture - Preliminary Blood No Growth after 48 hours 04/08/19 13:00 Gram Stain - Preliminary Sputum Sputum Culture - Preliminary Assessment and Plan Assessment: Acute COPD exacerbation Coronary artery disease with history of stent in RCA Hypertension hypertensive cardiovascular disease History of substance use IVDA IN past Plan: Continue IV steroids Broad-spectrum antibiotics Breathing treatments Supplemental oxygen Increase activity as tolerated Continue home medications Further recommendations pending plan of care as per clinical response of the patient Time with Patient: Greater than 30
[2019-04-10] MEDS: methylPREDNISolone SOD SUCCI 40 MG/ML 1 ML VIAL IV SCH ×5 (00:02→23:40)
[2019-04-10] MEDS: IPRATROPIUM-ALBUTEROL 3 ML NEB INHALATION SCH ×5 (03:08→20:13)
[2019-04-10] MEDS: VANCOMYCIN 1,750 MG in SODIUM CHLORIDE 0.9% 500 ML 500 ML IVPB SCH ×3 (03:27→19:09)
[2019-04-10] MEDS: INSULIN ASPART (NovoLOG) 100 UNIT/ML VIAL SQ SCH ×4 (06:03→22:00)
[2019-04-10 06:04] LABS: Glucose,Whole Blood 140 mg/dL (75-99)
[2019-04-10 06:19] LABS: Basophils # (A) 0.1 k/uL (0-0.2); Basophils % (A) 0 %; Eosinophils % (A) 0 %; HCT 41.3 % (39.0-53.0); HGB 13.3 gm/dL (13.0-17.5); Lymphocytes % (A) 8 %; MCH 29.2 pg (25.0-35.0); MCHC 32.2 g/dL (31.0-37.0); MCV 90.6 fL (80.0-100.0); Mean Platelet Volume 8.4; Monocytes # (A) 0.3 k/uL (0-1.0); Monocytes % (A) 2 %; Neutrophils # (A) 12.1 k/uL (1.3-7.7); Neutrophils % (A) 89 %; Platelet Count 223 k/uL (150-450); RBC 4.55 m/uL (4.30-5.90); RDW 13.3 % (11.5-15.5); WBC 13.6 k/uL (3.8-10.6)
[2019-04-10 06:32] LABS: African American GFR (CKD) >90 (>60 ml/min/1.73 sqM); Anion Gap 4 mmol/L; Blood Urea Nitrogen 16 mg/dL (9-20); Calcium 9.1 mg/dL (8.4-10.2); Carbon Dioxide 28 mmol/L (22-30); Chloride 104 mmol/L (98-107); Glucose 142 mg/dL (74-99); Non-African American GFR(CKD) >90 (>60 ml/min/1.73 sqM); Sodium 136 mmol/L (137-145)
[2019-04-10] MEDS: FORMOTEROL FUMARATE 20 MCG/2 ML NEBU INHALATION SCH ×2 (08:14→20:13)
[2019-04-10] MEDS: BUDESONIDE 0.5 MG/2 ML NEBU INHALATION SCH ×2 (08:15→20:13)
[2019-04-10] MEDS: METOPROLOL SUCCINATE (ER) 25 MG TAB.ER.24H PO SCH (09:25)
[2019-04-10] MEDS: FAMOTIDINE 20 MG TAB PO SCH (09:25)
[2019-04-10] MEDS: guaiFENesin 600 MG TABLET.ER PO SCH ×2 (09:25→19:56)
[2019-04-10] MEDS: CLOPIDOGREL 75 MG TAB PO SCH (09:25)
[2019-04-10] MEDS: ASPIRIN 81 MG PO SCH (09:25)
[2019-04-10 11:50] LABS: Glucose,Whole Blood 207 mg/dL (75-99)
[2019-04-10 11:54] LABS: Glucose,Whole Blood 160 mg/dL (75-99)
--- NOTE | 2019-04-10 15:29 | P.PN ---
Subjective Progress Note Date: 04/10/19 This is a 58-year-old male with past medical history of coronary artery disease and COPD. He presented to the emergency department with respiratory distress. Patient was recently admitted into the hospital for acute chest pain where he was started on oral prednisone. Patient had decreased to 30 mg prednisone and began to have shortness of breath and difficulty breathing. Patient was seen by Dr. Hudson on Wednesday who sent him to be seen in the emergency room for COPD exacerbation. The patient was given a prescription for amoxicillin that he started however due to the increase in difficulty breathing he came to the emergency room. Patient denies any chest pain at this time. He is coughing up yellow thick sputum. Patient did not have any fevers however he did experience chills. At this time patient is resting in room sitting up in bed. Patient has shortness of breath with activity and conversation. Patient is coughing up green/yellow sputum. Which will be obtained for a sputum culture. Patient was given antibiotics while in the hospital previously however the antibiotics were stopped once he was sent home. Then patient was seen by Dr. Hudson he was given amoxicillin however he did not start it due to increased shortness of breath. Patient stated that he was doing fine on the oral prednisone until he decreased to the 30 mg per day. Patient also states that he did not smoke cigarettes or marijuana since his last discharge from the hospital. 04/09: Patient is sitting up in bed stating that he is feeling better shortness of breath has improved slightly. He continues to have some shortness of breath with activity however he's able to hold a conversation with minimal shortness of breath. Patient's voice is still raspy. He is still coughing up green-yellow sputum. Awaiting sputum culture results. he remained afebrile hemodynamically stable. Continues to have O2. 04/10: Sputum culture is showing normal siva, blood culture no growth. Patient is currently on Solu-Medrol 40 mg every 8 hours. Patient continues to complain of raspy hoarse voice. No thrush is noted. Patient is on Zosyn and vancomycin. He has been afebrile, heart rate 96, blood pressure 136/87, pulse ox 98% on 2 L. Repeat blood work reveals WBC 13.6, hemoglobin 13.3, creatinine 0.87, blood sugars running between 142 and 207. Review Of Systems: Constitutional: No fever, no chills, no night sweats. No weight change. No weakness, reports fatigue no lethargy. EENT: No headache. No blurred vision or double vision, no loss of vision. No loss of Hearing, no ringing in the ears, no dizziness. No nasal drainage or congestion. No epistaxis. No sore throat. Reports hoarseness. Lungs: Reports shortness of breath and cough, sputum production. Reports wheezing. Cardiovascular: No chest pain, no lower extremity edema. No palpitations. No paroxysmal nocturnal dyspnea. No orthopnea. No lightheadedness or dizziness. No syncopal episodes. Abdominal: no abdominal discomfort. No nausea, vomiting. no diarrhea. No constipation. No bloody or tarry stools. no loss of appetite. Genitourinary: No dysuria, increased frequency, urgency. No urinary retention. Musculoskeletal: No myalgias. No muscle weakness, no gait dysfunction, no frequent falls. No back pain. No neck pain. Integumentary: No wounds, no lesions. No rash or pruritus. No unusual bruising. No change in hair or nails. Neurologic: No aphasia. No facial droop. No change in mentation. No head injury. No headache. No paralysis. No paresthesia. Psychiatric: No depression. No anxiety. No mood swings. Endocrine: No abnormal blood sugars. No weight change. No excessive sweating or thirst. Objective - Vital Signs Vital signs: Vital Signs Temp 98.4 F 04/10/19 09:20 Pulse 72 04/10/19 12:07 Resp 16 04/10/19 09:20 BP 136/87 04/10/19 09:20 Pulse Ox 98 04/10/19 09:20 Intake & Output 04/09/19 04/10/19 04/10/19 18:59 06:59 18:59 Intake Total 1480 940 Balance 1480 940 Intake: Intake, IV Titration 500 Amount Vancomycin 1,750 mg In 500 Sodium Chloride 0.9% 500 ml 500 ml @ 167 mls/hr IVPB Q8H [facility] Rx#: [id number] Oral 1480 440 Other: # Voids 1 1 - Exam General Appearance: Alert, cooperative, mild distress with conversation and activity, appears stated age. Neck HEENT: Supple, no lymphadenopathy, no thyroid enlargement, no carotid bruits. Lungs: Wheezing and rhonchi Chest Wall: Chest wall decrease expansion with deep inspiration no tenderness and no deformity was found on exam, no costochondral pain or discomfort. Heart: Regular rate and rhythm, S1, S2 normal, no murmur, rub or gallop. Back: Symmetric, no curvature, ROM normal, no CVA tenderness. Abdomen: Soft, non-tender, no rebound or rigidity, no hepatosplenomegaly. Extremities: Extremities normal, atraumatic, no cyanosis or edema. Pulses: 2+ and symmetric. Skin: Skin color, texture, tugor normal, no rashes or lesions. Neurologic: Alert oriented x3 cranial nerves II through XII intact, no motor deficit, no abnormal balance or gait - Labs CBC & Chem 7: 04/10/19 05:43 04/10/19 05:43 Labs: Abnormal Lab Results - Last 24 Hours (Table) 04/09/19 04/09/19 04/10/19 Range/Units 16:49 20:41 05:43 WBC 13.6 H (3.8-10.6) k/uL Neutrophils # 12.1 H (1.3-7.7) k/uL Sodium (137-145) mmol/L Glucose (74-99) mg/dL POC Glucose (mg/dL) 127 H 146 H (75-99) mg/dL 04/10/19 04/10/19 04/10/19 Range/Units 05:43 06:02 11:34 WBC (3.8-10.6) k/uL Neutrophils # (1.3-7.7) k/uL Sodium 136 L (137-145) mmol/L Glucose 142 H (74-99) mg/dL POC Glucose (mg/dL) 140 H 207 H (75-99) mg/dL 04/10/19 Range/Units 11:52 WBC (3.8-10.6) k/uL Neutrophils # (1.3-7.7) k/uL Sodium (137-145) mmol/L Glucose (74-99) mg/dL POC Glucose (mg/dL) 160 H (75-99) mg/dL Microbiology - Last 24 Hours (Table) 04/08/19 13:00 Gram Stain - Final Sputum Sputum Culture - Final 04/07/19 16:50 Blood Culture - Preliminary Blood No Growth after 48 hours Assessment and Plan Plan: 1. Acute dyspnea with COPD exacerbation. Continue Pulmicort,Perforomist, DuoNeb, Mucinex 600 mg daily at bedtime, Solu-Medrol 40 mg IV every 8 hour, continue Zosyn and vancomycin 500 mg every 8 hour, monitor blood sugar and cover with NovoLog sliding scale, Dr. Hudson consult reviewed, blood cultures and sputum cultures results pending. May be transferred to [facility] with telemetry 2. History of coronary artery disease with post-stenting of the mid RCA, with bare metal stent. Continue aspirin, Lipitor 80 mg at bedtime, Plavix 75 mg daily, Toprol-XL 25 mg daily. 3. Marijuana and remote tobacco use. Patient denies smoking upon discharge to the hospital and readmission. 4. Hypertension. Continue Lopressor. 5. DVT prophylaxis. SADIE orta. 6. GI prophylaxis Pepcid 20 mg daily Discharge plan: home Wednesday or Wednesday CODE STATUS: No code no CPR and no intubation per patient Impression and plan of care have been directed as dictated by the signing physician. Daysi Nunn nurse practitioner acting as scribe for signing physician.
[2019-04-10] MEDS: PIPERACILLIN-TAZOBACTAM 3.375 GM in SODIUM CHLORIDE 0.9% 100 ML IVPB SCH ×2 (15:36→23:39)
--- NOTE | 2019-04-10 16:17 | P.PN ---
Subjective Progress Note Date: 04/10/19 Principal diagnosis: Acute COPD exacerbation Coronary artery disease with history of stent in RCA Hypertension hypertensive cardiovascular disease History of substance use IVDA IN past 04/10/2019, patient seen eval examined during the rounds labs reviewed medications reviewed care plan discussed with the patient at length cough congestion or shortness of breath improved patient remains on breathing treatment and steroids 04/09/2019, patient seen and evaluated examined during the rounds labs reviewed medications reviewed care plan discussed with the patient at length, continued to have cough shortness of breath and wheezing but however symptoms slightly better, with activity continued to be short of breath, he remains on supplemental oxygen This is a 58-year-old with end-stage 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 Patient was recently admitted into the hospital for acute chest pain where he was started on oral prednisone. Patient had decreased to 30 mg prednisone and began to have shortness of breath and difficulty breathing. Patient was seen by myself on Wednesday The patient was given a prescription for amoxicillin that he started however due to the increase in difficulty breathing he came to the emergency room. Patient denies any chest pain at this time. He is coughing up yellow thick sputum. Patient did not have any fevers however he did experience chills. Objective - Vital Signs Vital signs: Vital Signs Temp 98.4 F 04/10/19 09:20 Pulse 68 04/10/19 16:04 Resp 16 04/10/19 09:20 BP 136/87 04/10/19 09:20 Pulse Ox 99 04/10/19 15:51 Intake & Output 04/09/19 04/10/19 04/10/19 18:59 06:59 18:59 Intake Total 1480 940 Balance 1480 940 Intake: Intake, IV Titration 500 Amount Vancomycin 1,750 mg In 500 Sodium Chloride 0.9% 500 ml 500 ml @ 167 mls/hr IVPB Q8H [facility] Rx#: [id number] Oral 1480 440 Other: # Voids 1 1 - Exam General Appearance: Alert, cooperative, moderate distress with conversation and activity, appears stated age. Neck HEENT: Supple, no lymphadenopathy, no thyroid enlargement, no carotid bruits. Lungs: Wheezing and rhonchi Chest Wall: Chest wall decrease expansion with deep inspiration no tenderness and no deformity was found on exam, no costochondral pain or discomfort. Heart: Regular rate and rhythm, S1, S2 normal, no murmur, rub or gallop. Back: Symmetric, no curvature, ROM normal, no CVA tenderness. Abdomen: Soft, non-tender, no rebound or rigidity, no hepatosplenomegaly. Extremities: Extremities normal, atraumatic, no cyanosis or edema. Pulses: 2+ and symmetric. Skin: Skin color, texture, tugor normal, no rashes or lesions. Neurologic: Alert oriented x3 cranial nerves II through XII intact, no motor deficit, no abnormal balance or gait - Labs CBC & Chem 7: 04/10/19 05:43 04/10/19 05:43 Labs: Abnormal Lab Results - Last 24 Hours (Table) 04/09/19 04/09/19 04/10/19 Range/Units 16:49 20:41 05:43 WBC 13.6 H (3.8-10.6) k/uL Neutrophils # 12.1 H (1.3-7.7) k/uL Sodium (137-145) mmol/L Glucose (74-99) mg/dL POC Glucose (mg/dL) 127 H 146 H (75-99) mg/dL 04/10/19 04/10/19 04/10/19 Range/Units 05:43 06:02 11:34 WBC (3.8-10.6) k/uL Neutrophils # (1.3-7.7) k/uL Sodium 136 L (137-145) mmol/L Glucose 142 H (74-99) mg/dL POC Glucose (mg/dL) 140 H 207 H (75-99) mg/dL 04/10/19 Range/Units 11:52 WBC (3.8-10.6) k/uL Neutrophils # (1.3-7.7) k/uL Sodium (137-145) mmol/L Glucose (74-99) mg/dL POC Glucose (mg/dL) 160 H (75-99) mg/dL Microbiology - Last 24 Hours (Table) 04/08/19 13:00 Gram Stain - Final Sputum Sputum Culture - Final 04/07/19 16:50 Blood Culture - Preliminary Blood No Growth after 48 hours Assessment and Plan Assessment: Acute COPD exacerbation Coronary artery disease with history of stent in RCA Hypertension hypertensive cardiovascular disease History of substance use IVDA IN past Plan: Continue IV steroids Broad-spectrum antibiotics Breathing treatments Supplemental oxygen Increase activity as tolerated Continue home medications Further recommendations pending plan of care as per clinical response of the patient Time with Patient: Greater than 30
[2019-04-10 16:50] LABS: Glucose,Whole Blood 146 mg/dL (75-99)
[2019-04-10] MEDS: ATORVASTATIN 40 MG TAB PO SCH (19:56)
[2019-04-10 20:19] LABS: Glucose,Whole Blood 172 mg/dL (75-99)
[2019-04-11] MEDS: IPRATROPIUM-ALBUTEROL 3 ML NEB INHALATION SCH ×7 (00:31→23:15)
[2019-04-11] MEDS: VANCOMYCIN 1,750 MG in SODIUM CHLORIDE 0.9% 500 ML 500 ML IVPB SCH (04:31)
[2019-04-11 07:10] LABS: Glucose,Whole Blood 146 mg/dL (75-99)
[2019-04-11] MEDS: METOPROLOL SUCCINATE (ER) 25 MG TAB.ER.24H PO SCH (08:33)
[2019-04-11] MEDS: CLOPIDOGREL 75 MG TAB PO SCH (08:33)
[2019-04-11] MEDS: FAMOTIDINE 20 MG TAB PO SCH (08:33)
[2019-04-11] MEDS: PIPERACILLIN-TAZOBACTAM 3.375 GM in SODIUM CHLORIDE 0.9% 100 ML IVPB SCH ×2 (08:33→17:04)
[2019-04-11] MEDS: guaiFENesin 600 MG TABLET.ER PO SCH ×2 (08:33→22:38)
[2019-04-11] MEDS: methylPREDNISolone SOD SUCCI 40 MG/ML 1 ML VIAL IV SCH ×2 (08:33→17:06)
[2019-04-11] MEDS: ASPIRIN 81 MG PO SCH (08:33)
[2019-04-11] MEDS: INSULIN ASPART (NovoLOG) 100 UNIT/ML VIAL SQ SCH ×4 (08:34→22:38)
[2019-04-11] MEDS: BUDESONIDE 0.5 MG/2 ML NEBU INHALATION SCH ×2 (08:45→19:21)
[2019-04-11] MEDS: FORMOTEROL FUMARATE 20 MCG/2 ML NEBU INHALATION SCH ×2 (08:45→19:40)
[2019-04-11] MEDS ORDERED: VANCOMYCIN TROUGH DUE 1 EACH MISC MISCELLANE ONE (10:00)
[2019-04-11 11:41] LABS: Glucose,Whole Blood 133 mg/dL (75-99)
--- NOTE | 2019-04-11 14:14 | P.PN ---
Subjective Progress Note Date: 04/11/19 Principal diagnosis: Acute COPD exacerbation Coronary artery disease with history of stent in RCA Hypertension hypertensive cardiovascular disease History of substance use IVDA IN past 04/11/2019, patient seen eval examined during the rounds cuff congestion is improved but still intermittently wheezing, patient remains on bronchodilator in the steroids along with antibiotics, agree with discharge planning 04/10/2019, patient seen eval examined during the rounds labs reviewed medications reviewed care plan discussed with the patient at length cough congestion or shortness of breath improved patient remains on breathing treatment and steroids 04/09/2019, patient seen and evaluated examined during the rounds labs reviewed medications reviewed care plan discussed with the patient at length, continued to have cough shortness of breath and wheezing but however symptoms slightly better, with activity continued to be short of breath, he remains on supplemental oxygen This is a 58-year-old with end-stage 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 Patient was recently admitted into the hospital for acute chest pain where he was started on oral prednisone. Patient had decreased to 30 mg prednisone and began to have shortness of breath and difficulty breathing. Patient was seen by myself on Wednesday The patient was given a prescription for amoxicillin that he started however due to the increase in difficulty breathing he came to the emergency room. Patient denies any chest pain at this time. He is coughing up yellow thick sputum. Patient did not have any fevers however he did experience chills. Objective - Vital Signs Vital signs: Vital Signs Temp 97.8 F 04/11/19 05:45 Pulse 84 04/11/19 12:05 Resp 16 04/11/19 08:00 BP 131/81 04/11/19 05:45 Pulse Ox 97 04/11/19 05:45 Intake & Output 04/10/19 04/11/19 04/11/19 18:59 06:59 18:59 Intake Total 700 300 Balance 700 300 Intake: Intake, IV Titration 700 100 Amount Piperacillin-Tazobactam 3 200 100 .375 gm In Sodium Chloride 0.9% 100 ml @ 25 mls/hr IVPB Q8HR [facility] Rx# :[id number] Vancomycin 1,750 mg In 500 Sodium Chloride 0.9% 500 ml 500 ml @ 167 mls/hr IVPB Q8H [facility] Rx#: [id number] Oral 200 Other: # Voids 2 1 - Exam General Appearance: Alert, cooperative, moderate distress with conversation and activity, appears stated age. Neck HEENT: Supple, no lymphadenopathy, no thyroid enlargement, no carotid bruits. Lungs: Wheezing and rhonchi Chest Wall: Chest wall decrease expansion with deep inspiration no tenderness and no deformity was found on exam, no costochondral pain or discomfort. Heart: Regular rate and rhythm, S1, S2 normal, no murmur, rub or gallop. Back: Symmetric, no curvature, ROM normal, no CVA tenderness. Abdomen: Soft, non-tender, no rebound or rigidity, no hepatosplenomegaly. Extremities: Extremities normal, atraumatic, no cyanosis or edema. Pulses: 2+ and symmetric. Skin: Skin color, texture, tugor normal, no rashes or lesions. Neurologic: Alert oriented x3 cranial nerves II through XII intact, no motor deficit, no abnormal balance or gait - Labs CBC & Chem 7: 04/10/19 05:43 04/10/19 05:43 Labs: Abnormal Lab Results - Last 24 Hours (Table) 04/10/19 04/10/19 04/11/19 Range/Units 16:48 20:18 07:03 POC Glucose (mg/dL) 146 H 172 H 146 H (75-99) mg/dL 04/11/19 Range/Units 11:37 POC Glucose (mg/dL) 133 H (75-99) mg/dL Microbiology - Last 24 Hours (Table) 04/07/19 16:50 Blood Culture - Preliminary Blood No Growth after 72 hours 04/08/19 13:00 Gram Stain - Final Sputum Sputum Culture - Final Assessment and Plan Assessment: Acute COPD exacerbation Coronary artery disease with history of stent in RCA Hypertension hypertensive cardiovascular disease History of substance use IVDA IN past Plan: Continue IV steroids Broad-spectrum antibiotics Breathing treatments Supplemental oxygen Increase activity as tolerated Continue home medications Further recommendations pending plan of care as per clinical response of the patient Time with Patient: Greater than 30
[2019-04-11] MEDS: VANCOMYCIN 1,500 MG in SODIUM CHLORIDE 0.9% 250 ML IVPB SCH ×2 (14:16→22:40)
--- NOTE | 2019-04-11 15:39 | P.PN ---
Subjective Progress Note Date: 04/11/19 This is a 58-year-old male with past medical history of coronary artery disease and COPD. He presented to the emergency department with respiratory distress. Patient was recently admitted into the hospital for acute chest pain where he was started on oral prednisone. Patient had decreased to 30 mg prednisone and began to have shortness of breath and difficulty breathing. Patient was seen by Dr. Hudson on Wednesday who sent him to be seen in the emergency room for COPD exacerbation. The patient was given a prescription for amoxicillin that he started however due to the increase in difficulty breathing he came to the emergency room. Patient denies any chest pain at this time. He is coughing up yellow thick sputum. Patient did not have any fevers however he did experience chills. At this time patient is resting in room sitting up in bed. Patient has shortness of breath with activity and conversation. Patient is coughing up green/yellow sputum. Which will be obtained for a sputum culture. Patient was given antibiotics while in the hospital previously however the antibiotics were stopped once he was sent home. Then patient was seen by Dr. Hudson he was given amoxicillin however he did not start it due to increased shortness of breath. Patient stated that he was doing fine on the oral prednisone until he decreased to the 30 mg per day. Patient also states that he did not smoke cigarettes or marijuana since his last discharge from the hospital. 04/09: Patient is sitting up in bed stating that he is feeling better shortness of breath has improved slightly. He continues to have some shortness of breath with activity however he's able to hold a conversation with minimal shortness of breath. Patient's voice is still raspy. He is still coughing up green-yellow sputum. Awaiting sputum culture results. he remained afebrile hemodynamically stable. Continues to have O2. 04/10: Sputum culture is showing normal siva, blood culture no growth. Patient is currently on Solu-Medrol 40 mg every 8 hours. Patient continues to complain of raspy hoarse voice. No thrush is noted. Patient is on Zosyn and vancomycin. He has been afebrile, heart rate 96, blood pressure 136/87, pulse ox 98% on 2 L. Repeat blood work reveals WBC 13.6, hemoglobin 13.3, creatinine 0.87, blood sugars running between 142 and 207. 04/11: Patient has been afebrile, heart rate 80, blood pressure 131/81, pulse ox 97% on 2 L nasal cannula. Blood sugar between 146 and 172. Patient states that he has some shortness of breath with ambulation. His voice is less raspy today. He has not home O2 dependent. Solu-Medrol currently at 40 mg every 8 hours and will be transitioned to oral prednisone in the morning. Anticipate discharge home tomorrow. Review Of Systems: Constitutional: No fever, no chills, no night sweats. No weight change. No weakness, reports fatigue no lethargy. EENT: No headache. No blurred vision or double vision, no loss of vision. No loss of Hearing, no ringing in the ears, no dizziness. No nasal drainage or congestion. No epistaxis. No sore throat. Reports hoarseness. Lungs: Reports shortness of breath and cough-improving, sputum production. Reports wheezing. Cardiovascular: No chest pain, no lower extremity edema. No palpitations. No paroxysmal nocturnal dyspnea. No orthopnea. No lightheadedness or dizziness. No syncopal episodes. Abdominal: no abdominal discomfort. No nausea, vomiting. no diarrhea. No constipation. No bloody or tarry stools. no loss of appetite. Genitourinary: No dysuria, increased frequency, urgency. No urinary retention. Musculoskeletal: No myalgias. No muscle weakness, no gait dysfunction, no frequent falls. No back pain. No neck pain. Integumentary: No wounds, no lesions. No rash or pruritus. No unusual br uising. No change in hair or nails. Neurologic: No aphasia. No facial droop. No change in mentation. No head injury. No headache. No paralysis. No paresthesia. Psychiatric: No depression. No anxiety. No mood swings. Endocrine: No abnormal blood sugars. No weight change. No excessive sweating or thirst. Objective - Vital Signs Vital signs: Vital Signs Temp 97.8 F 04/11/19 05:45 Pulse 76 04/11/19 09:00 Resp 14 04/11/19 05:45 BP 131/81 04/11/19 05:45 Pulse Ox 97 04/11/19 05:45 Intake & Output 04/10/19 04/11/19 04/11/19 18:59 06:59 18:59 Intake Total 700 300 Balance 700 300 Intake: Intake, IV Titration 700 100 Amount Piperacillin-Tazobactam 3 200 100 .375 gm In Sodium Chloride 0.9% 100 ml @ 25 mls/hr IVPB Q8HR [facility] Rx# :[id number] Vancomycin 1,750 mg In 500 Sodium Chloride 0.9% 500 ml 500 ml @ 167 mls/hr IVPB Q8H [facility] Rx#: [id number] Oral 200 Other: # Voids 2 1 - Exam General Appearance: Alert, cooperative, mild distress with conversation and activity, appears stated age. Neck HEENT: Supple, no lymphadenopathy, no thyroid enlargement, no carotid bruits. Lungs: Wheezing and rhonchi Chest Wall: Chest wall decrease expansion with deep inspiration no tenderness and no deformity was found on exam, no costochondral pain or discomfort. Heart: Regular rate and rhythm, S1, S2 normal, no murmur, rub or gallop. Back: Symmetric, no curvature, ROM normal, no CVA tenderness. Abdomen: Soft, non-tender, no rebound or rigidity, no hepatosplenomegaly. Extremities: Extremities normal, atraumatic, no cyanosis or edema. Pulses: 2+ and symmetric. Skin: Skin color, texture, tugor normal, no rashes or lesions. Neurologic: Alert oriented x3 cranial nerves II through XII intact, no motor deficit - Labs CBC & Chem 7: 04/10/19 05:43 04/10/19 05:43 Labs: Abnormal Lab Results - Last 24 Hours (Table) 04/10/19 04/10/19 04/10/19 Range/Units 11:34 11:52 16:48 POC Glucose (mg/dL) 207 H 160 H 146 H (75-99) mg/dL 04/10/19 04/11/19 Range/Units 20:18 07:03 POC Glucose (mg/dL) 172 H 146 H (75-99) mg/dL Microbiology - Last 24 Hours (Table) 04/07/19 16:50 Blood Culture - Preliminary Blood No Growth after 72 hours 04/08/19 13:00 Gram Stain - Final Sputum Sputum Culture - Final Assessment and Plan Plan: 1. Acute dyspnea with COPD exacerbation. Continue Pulmicort,Perforomist, DuoNeb, Mucinex 600 mg daily at bedtime, Solu-Medrol 40 mg IV every 8 hour, continue Zosyn and vancomycin 500 mg every 8 hour, monitor blood sugar and cover with NovoLog sliding scale, Dr. Hudson consult reviewed, blood cultures and sputum cultures results pending. May be transferred to [facility] with telemetry 2. History of coronary artery disease with post-stenting of the mid RCA, with bare metal stent. Continue aspirin, Lipitor 80 mg at bedtime, Plavix 75 mg daily, Toprol-XL 25 mg daily. 3. Marijuana and remote tobacco use. Patient denies smoking upon discharge to the hospital and readmission. 4. Hypertension. Continue Lopressor. 5. DVT prophylaxis. SADIE hose. 6. GI prophylaxis Pepcid 20 mg daily Discharge plan: home Wednesday CODE STATUS: No code no CPR and no intubation per patient Impression and plan of care have been directed as dictated by the signing phys latanya. Daysi Nunn nurse practitioner acting as scribe for signing physician.
[2019-04-11] MEDS: ACETAMINOPHEN TAB 325 MG TAB PO PRN (17:04)
[2019-04-11 17:11] LABS: Glucose,Whole Blood 181 mg/dL (75-99)
[2019-04-11] MEDS ORDERED: IPRATROPIUM-ALBUTEROL 3 ML NEB INHALATION PRN (17:19)
--- NOTE | 2019-04-11 18:00 | XR ---
EXAMINATION TYPE: XR chest 1V portable DATE OF EXAM: 04/11/2019 COMPARISON: 04/07/2019 HISTORY: Short of breath TECHNIQUE: Single view FINDINGS: Heart and mediastinum are normal. Lungs are clear. Costophrenic angles are clear. There is no pleural effusion. There are no hilar masses. IMPRESSION: No active cardiopulmonary disease. No change.
[2019-04-11 21:09] LABS: Glucose,Whole Blood 256 mg/dL (75-99)
[2019-04-11] MEDS: ATORVASTATIN 40 MG TAB PO SCH (22:38)
[2019-04-12] MEDS: PIPERACILLIN-TAZOBACTAM 3.375 GM in SODIUM CHLORIDE 0.9% 100 ML IVPB SCH ×3 (01:11→17:05)
[2019-04-12] MEDS: IPRATROPIUM-ALBUTEROL 3 ML NEB INHALATION SCH ×6 (03:13→23:25)
[2019-04-12] MEDS: VANCOMYCIN 1,500 MG in SODIUM CHLORIDE 0.9% 250 ML IVPB SCH (05:48)
[2019-04-12 07:03] LABS: Glucose,Whole Blood 95 mg/dL (75-99)
[2019-04-12] MEDS: BUDESONIDE 0.5 MG/2 ML NEBU INHALATION SCH (07:14)
[2019-04-12] MEDS: FORMOTEROL FUMARATE 20 MCG/2 ML NEBU INHALATION SCH ×2 (07:14→19:49)
[2019-04-12] MEDS: INSULIN ASPART (NovoLOG) 100 UNIT/ML VIAL SQ SCH ×4 (07:27→21:12)
[2019-04-12 07:55] LABS: African American GFR (CKD) >90 (>60 ml/min/1.73 sqM); Non-African American GFR(CKD) >90 (>60 ml/min/1.73 sqM)
[2019-04-12] MEDS ORDERED: predniSONE 20 MG TAB PO SCH (09:00)
[2019-04-12] MEDS: ASPIRIN 81 MG PO SCH (09:01)
[2019-04-12] MEDS: guaiFENesin 600 MG TABLET.ER PO SCH ×2 (09:01→21:13)
[2019-04-12] MEDS: FAMOTIDINE 20 MG TAB PO SCH (09:01)
[2019-04-12] MEDS: METOPROLOL SUCCINATE (ER) 25 MG TAB.ER.24H PO SCH (09:01)
[2019-04-12] MEDS: CLOPIDOGREL 75 MG TAB PO SCH (09:01)
[2019-04-12 11:31] LABS: Glucose,Whole Blood 122 mg/dL (75-99)
[2019-04-12] MEDS: ACETAMINOPHEN TAB 325 MG TAB PO PRN ×2 (12:41→21:13)
[2019-04-12] MEDS: methylPREDNISolone SOD SUCCI 125 MG/2 ML VIAL IV SCH ×2 (12:41→17:04)
[2019-04-12] MEDS: FLUTICASONE 50MCG/SPRAY NASAL 16GM EA NOSTRIL SCH (12:44)
[2019-04-12] MEDS ORDERED: VANCOMYCIN TROUGH DUE 1 EACH MISC MISCELLANE ONE (13:00)
--- NOTE | 2019-04-12 15:09 | P.PN ---
Subjective Progress Note Date: 04/12/19 Principal diagnosis: Acute COPD exacerbation Coronary artery disease with history of stent in RCA Hypertension hypertensive cardiovascular disease History of substance use IVDA IN past 04/12/2019, patient has been seen eval reexamined and still have ongoing wheezing cough congestion patient has used BiPAP machine for 3 hours last night I have a advised that patient use his BiPAP machine as much as possible continue current plan of care with IV steroids breathing treatments, sputum and blood cultures have been negative 04/11/2019, patient seen eval examined during the rounds cuff congestion is improved but still intermittently wheezing, patient remains on bronchodilator in the steroids along with antibiotics, agree with discharge planning 04/10/2019, patient seen eval examined during the rounds labs reviewed medications reviewed care plan discussed with the patient at length cough congestion or shortness of breath improved patient remains on breathing treatment and steroids 04/09/2019, patient seen and evaluated examined during the rounds labs reviewed medications reviewed care plan discussed with the patient at length, continued to have cough shortness of breath and wheezing but however symptoms slightly better, with activity continued to be short of breath, he remains on supplemental oxygen This is a 58-year-old with end-stage 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 Patient was recently admitted into the hospital for acute chest pain where he was started on oral prednisone. Patient had decreased to 30 mg prednisone and began to have shortness of breath and difficulty breathing. Patient was seen by myself on Wednesday The patient was given a prescription for amoxicillin that he started however due to the increase in difficulty breathing he came to the emergency room. Patient denies any chest pain at this time. He is coughing up yellow thick sputum. Patient did not have any fevers however he did experience chills. Objective - Vital Signs Vital signs: Vital Signs Temp 97.6 F 04/12/19 05:02 Pulse 76 04/12/19 11:38 Resp 20 04/12/19 08:00 BP 127/72 04/12/19 05:02 Pulse Ox 97 04/12/19 05:02 Intake & Output 04/11/19 04/12/19 04/12/19 18:59 06:59 18:59 Intake Total 540 Balance 540 Intake: Oral 540 Other: # Voids 4 4 # Bowel Movements 1 - Exam General Appearance: Alert, cooperative, moderate distress with conversation and activity, appears stated age. Neck HEENT: Supple, no lymphadenopathy, no thyroid enlargement, no carotid bruits. Lungs: Wheezing and rhonchi Chest Wall: Chest wall decrease expansion with deep inspiration no tenderness and no deformity was found on exam, no costochondral pain or discomfort. Heart: Regular rate and rhythm, S1, S2 normal, no murmur, rub or gallop. Back: Symmetric, no curvature, ROM normal, no CVA tenderness. Abdomen: Soft, non-tender, no rebound or rigidity, no hepatosplenomegaly. Extremities: Extremities normal, atraumatic, no cyanosis or edema. Pulses: 2+ and symmetric. Skin: Skin color, texture, tugor normal, no rashes or lesions. Neurologic: Alert oriented x3 cranial nerves II through XII intact, no motor deficit, no abnormal balance or gait - Labs CBC & Chem 7: 04/10/19 05:43 04/12/19 07:12 Labs: Abnormal Lab Results - Last 24 Hours (Table) 04/11/19 04/11/19 04/12/19 Range/Units 17:01 21:06 11:29 POC Glucose (mg/dL) 181 H 256 H 122 H (75-99) mg/dL Microbiology - Last 24 Hours (Table) 04/07/19 16:50 Blood Culture - Preliminary Blood No Growth after 96 hours Assessment and Plan Assessment: Acute COPD exacerbation Coronary artery disease with history of stent in RCA Hypertension hypertensive cardiovascular disease History of substance use IVDA IN past Plan: Continue IV steroids Broad-spectrum antibiotics Breathing treatments Supplemental oxygen Increase activity as tolerated Continue home medications Further recommendations pending plan of care as per clinical response of the patient Time with Patient: Greater than 30
--- NOTE | 2019-04-12 15:54 | P.PN ---
Subjective Progress Note Date: 04/12/19 This is a 58-year-old male with past medical history of coronary artery disease and COPD. He presented to the emergency department with respiratory distress. Patient was recently admitted into the hospital for acute chest pain where he was started on oral prednisone. Patient had decreased to 30 mg prednisone and began to have shortness of breath and difficulty breathing. Patient was seen by Dr. Hudson on Wednesday who sent him to be seen in the emergency room for COPD exacerbation. The patient was given a prescription for amoxicillin that he started however due to the increase in difficulty breathing he came to the emergency room. Patient denies any chest pain at this time. He is coughing up yellow thick sputum. Patient did not have any fevers however he did experience chills. At this time patient is resting in room sitting up in bed. Patient has shortness of breath with activity and conversation. Patient is coughing up green/yellow sputum. Which will be obtained for a sputum culture. Patient was given antibiotics while in the hospital previously however the antibiotics were stopped once he was sent home. Then patient was seen by Dr. Hudson he was given amoxicillin however he did not start it due to increased shortness of breath. Patient stated that he was doing fine on the oral prednisone until he decreased to the 30 mg per day. Patient also states that he did not smoke cigarettes or marijuana since his last discharge from the hospital. 04/09: Patient is sitting up in bed stating that he is feeling better shortness of breath has improved slightly. He continues to have some shortness of breath with activity however he's able to hold a conversation with minimal shortness of breath. Patient's voice is still raspy. He is still coughing up green-yellow sputum. Awaiting sputum culture results. he remained afebrile hemodynamically stable. Continues to have O2. 04/10: Sputum culture is showing normal siva, blood culture no growth. Patient is currently on Solu-Medrol 40 mg every 8 hours. Patient continues to complain of raspy hoarse voice. No thrush is noted. Patient is on Zosyn and vancomycin. He has been afebrile, heart rate 96, blood pressure 136/87, pulse ox 98% on 2 L. Repeat blood work reveals WBC 13.6, hemoglobin 13.3, creatinine 0.87, blood sugars running between 142 and 207. 04/11: Patient has been afebrile, heart rate 80, blood pressure 131/81, pulse ox 97% on 2 L nasal cannula. Blood sugar between 146 and 172. Patient states that he has some shortness of breath with ambulation. His voice is less raspy today. He has not home O2 dependent. Solu-Medrol currently at 40 mg every 8 hours and will be transitioned to oral prednisone in the morning. Anticipate discharge home tomorrow. 04/12: Repeat chest x-ray reveals no acute cardiopulmonary disease. Patient has been afebrile, heart rate 84, blood pressure 127/72, pulse ox 97% on 2 L nasal cannula. Patient will be assessed for home oxygen need. Repeat blood work reveals creatinine 0.81, blood sugars running anywhere between 95 and 256. Sputum culture has finalized with normal siva. Blood culture no growth at 96 hours. Patient developed increasing shortness of breath during the night and is stating that he is not any better. He states he feels worse from when he came into the hospital. Patient was started back on Solu-Medrol, Pulmicort increased to 1 mg twice daily, IgE level and Alpha I antitrypsin ordered. Flonase also added. Review Of Systems: Constitutional: No fever, no chills, no night sweats. No weight change. No weakness, reports fatigue no lethargy. EENT: No headache. No blurred vision or double vision, no loss of vision. No loss of Hearing, no ringing in the ears, no dizziness. No nasal drainage or congestion. No epistaxis. No sore throat. Reports hoarseness. Lungs: Reports shortness of breath and cough-improving, sputum production. Reports wheezing. Cardiovascular: No chest pain, no lower extremity edema. No palpitations. No p aroxysmal nocturnal dyspnea. No orthopnea. No lightheadedness or dizziness. Abdominal: no abdominal discomfort. No nausea, vomiting. no diarrhea. No constipation. No bloody or tarry stools. no loss of appetite. Genitourinary: No dysuria, increased frequency, urgency. No urinary retention. Musculoskeletal: No myalgias. No muscle weakness, no gait dysfunction, no frequent falls. No back pain. No neck pain. Integumentary: No wounds, no lesions. No rash or pruritus. No unusual bruisin g. No change in hair or nails. Neurologic: No aphasia. No facial droop. No change in mentation. No head injury. No headache. No paralysis. No paresthesia. Psychiatric: No depression. No anxiety. No mood swings. Endocrine: No abnormal blood sugars. No weight change. No excessive sweating or thirst. Objective - Vital Signs Vital signs: Vital Signs Temp 97.6 F 04/12/19 05:02 Pulse 76 04/12/19 11:26 Resp 20 04/12/19 08:00 BP 127/72 04/12/19 05:02 Pulse Ox 97 04/12/19 05:02 Intake & Output 04/11/19 04/12/19 04/12/19 18:59 06:59 18:59 Intake Total 540 Balance 540 Intake: Oral 540 Other: # Voids 4 4 # Bowel Movements 1 - Exam General Appearance: Alert, cooperative, mild distress with conversation and activity, appears stated age. Neck HEENT: Supple, no lymphadenopathy, no thyroid enlargement, no carotid bruits. Lungs: Wheezing and rhonchi scattered Chest Wall: Chest wall decrease expansion with deep inspiration no tenderness and no deformity was found on exam, no costochondral pain or discomfort. Heart: Regular rate and rhythm, S1, S2 normal, no murmur, rub or gallop. Back: Symmetric, no curvature, ROM normal, no CVA tenderness. Abdomen: Soft, non-tender, no rebound or rigidity, no hepatosplenomegaly. Extremities: Extremities normal, atraumatic, no cyanosis or edema. Pulses: 2+ and symmetric. Skin: Skin color, texture, tugor normal, no rashes or lesions. Neurologic: Alert oriented x3 cranial nerves II through XII intact, no motor deficit - Labs CBC & Chem 7: 04/10/19 05:43 04/12/19 07:12 Labs: Abnormal Lab Results - Last 24 Hours (Table) 04/11/19 04/11/19 04/11/19 Range/Units 11:37 17:01 21:06 POC Glucose (mg/dL) 133 H 181 H 256 H (75-99) mg/dL 04/12/19 Range/Units 11:29 POC Glucose (mg/dL) 122 H (75-99) mg/dL Microbiology - Last 24 Hours (Table) 04/07/19 16:50 Blood Culture - Preliminary Blood No Growth after 96 hours Assessment and Plan Plan: 1. Acute dyspnea with COPD exacerbation. Continue Pulmicort increased to 1 mg twice daily, Perforomist, DuoNeb, Mucinex 600 mg daily at bedtime, Solu-Medrol increased to 60 mg IV every 8 hour, continue Zosyn and vancomycin 500 mg every 8 hour, monitor blood sugar and cover with NovoLog sliding scale, Dr. Hudson consult reviewed, blood cultures and sputum cultures results pending. However 1 antitrypsin, IgE levels ordered. Telemetry will be discontinued. 2. History of coronary artery disease with post-stenting of the mid RCA, with bare metal stent. Continue aspirin, Lipitor 80 mg at bedtime, Plavix 75 mg daily, Toprol-XL 25 mg daily. 3. Marijuana and remote tobacco use. Patient denies smoking upon discharge to the hospital and readmission. 4. Hypertension. Continue Lopressor. 5. DVT prophylaxis. SADIE hose. 6. GI prophylaxis Pepcid 20 mg daily Discharge plan: home CODE STATUS: No code no CPR and no intubation per patient Impression and plan of care have been directed as dictated by the signing physician. Daysi Nunn nurse practitioner acting as scribe for signing physician.
[2019-04-12 17:09] LABS: Glucose,Whole Blood 189 mg/dL (75-99)
[2019-04-12] MEDS: BUDESONIDE 1 MG/2 ML NEBU INHALATION SCH (19:34)
[2019-04-12 20:18] LABS: Glucose,Whole Blood 200 mg/dL (75-99)
[2019-04-12] MEDS: MONTELUKAST 10 MG TAB PO SCH (21:13)
[2019-04-12] MEDS: ATORVASTATIN 40 MG TAB PO SCH (21:13)
[2019-04-13] MEDS: methylPREDNISolone SOD SUCCI 125 MG/2 ML VIAL IV SCH ×3 (00:23→17:09)
[2019-04-13] MEDS: PIPERACILLIN-TAZOBACTAM 3.375 GM in SODIUM CHLORIDE 0.9% 100 ML IVPB SCH ×3 (00:24→17:06)
[2019-04-13] MEDS: IPRATROPIUM-ALBUTEROL 3 ML NEB INHALATION SCH ×6 (03:15→23:45)
[2019-04-13 07:07] LABS: Glucose,Whole Blood 124 mg/dL (75-99)
[2019-04-13] MEDS: INSULIN ASPART (NovoLOG) 100 UNIT/ML VIAL SQ SCH ×4 (07:09→20:25)
[2019-04-13] MEDS: ASPIRIN 81 MG PO SCH (07:50)
[2019-04-13] MEDS: FLUTICASONE 50MCG/SPRAY NASAL 16GM EA NOSTRIL SCH (07:50)
[2019-04-13] MEDS: CLOPIDOGREL 75 MG TAB PO SCH (07:50)
[2019-04-13] MEDS: FAMOTIDINE 20 MG TAB PO SCH (07:50)
[2019-04-13] MEDS: METOPROLOL SUCCINATE (ER) 25 MG TAB.ER.24H PO SCH (07:50)
[2019-04-13] MEDS: guaiFENesin 600 MG TABLET.ER PO SCH ×2 (07:50→20:19)
[2019-04-13 08:25] LABS: African American GFR (CKD) >90 (>60 ml/min/1.73 sqM); Non-African American GFR(CKD) >90 (>60 ml/min/1.73 sqM)
[2019-04-13] MEDS: BUDESONIDE 1 MG/2 ML NEBU INHALATION SCH ×2 (08:37→20:42)
[2019-04-13] MEDS: FORMOTEROL FUMARATE 20 MCG/2 ML NEBU INHALATION SCH ×2 (08:37→20:42)
[2019-04-13 11:45] LABS: Glucose,Whole Blood 142 mg/dL (75-99)
[2019-04-13] MEDS: CLOTRIMAZOLE TROCHE 10 MG TROCHE MUCOUS MEM SCH ×3 (12:23→20:19)
--- NOTE | 2019-04-13 15:24 | P.PN ---
Subjective Progress Note Date: 04/13/19 This is a 58-year-old male with past medical history of coronary artery disease and COPD. He presented to the emergency department with respiratory distress. Patient was recently admitted into the hospital for acute chest pain where he was started on oral prednisone. Patient had decreased to 30 mg prednisone and began to have shortness of breath and difficulty breathing. Patient was seen by Dr. Hudson on Wednesday who sent him to be seen in the emergency room for COPD exacerbation. The patient was given a prescription for amoxicillin that he started however due to the increase in difficulty breathing he came to the emergency room. Patient denies any chest pain at this time. He is coughing up yellow thick sputum. Patient did not have any fevers however he did experience chills. At this time patient is resting in room sitting up in bed. Patient has shortness of breath with activity and conversation. Patient is coughing up green/yellow sputum. Which will be obtained for a sputum culture. Patient was given antibiotics while in the hospital previously however the antibiotics were stopped once he was sent home. Then patient was seen by Dr. Hudson he was given amoxicillin however he did not start it due to increased shortness of breath. Patient stated that he was doing fine on the oral prednisone until he decreased to the 30 mg per day. Patient also states that he did not smoke cigarettes or marijuana since his last discharge from the hospital. 04/09: Patient is sitting up in bed stating that he is feeling better shortness of breath has improved slightly. He continues to have some shortness of breath with activity however he's able to hold a conversation with minimal shortness of breath. Patient's voice is still raspy. He is still coughing up green-yellow sputum. Awaiting sputum culture results. he remained afebrile hemodynamically stable. Continues to have O2. 04/10: Sputum culture is showing normal siva, blood culture no growth. Patient is currently on Solu-Medrol 40 mg every 8 hours. Patient continues to complain of raspy hoarse voice. No thrush is noted. Patient is on Zosyn and vancomycin. He has been afebrile, heart rate 96, blood pressure 136/87, pulse ox 98% on 2 L. Repeat blood work reveals WBC 13.6, hemoglobin 13.3, creatinine 0.87, blood sugars running between 142 and 207. 04/11: Patient has been afebrile, heart rate 80, blood pressure 131/81, pulse ox 97% on 2 L nasal cannula. Blood sugar between 146 and 172. Patient states that he has some shortness of breath with ambulation. His voice is less raspy today. He has not home O2 dependent. Solu-Medrol currently at 40 mg every 8 hours and will be transitioned to oral prednisone in the morning. Anticipate discharge home tomorrow. 04/12: Repeat chest x-ray reveals no acute cardiopulmonary disease. Patient has been afebrile, heart rate 84, blood pressure 127/72, pulse ox 97% on 2 L nasal cannula. Patient will be assessed for home oxygen need. Repeat blood work reveals creatinine 0.81, blood sugars running anywhere between 95 and 256. Sputum culture has finalized with normal siva. Blood culture no growth at 96 hours. Patient developed increasing shortness of breath during the night and is stating that he is not any better. He states he feels worse from when he came into the hospital. Patient was started back on Solu-Medrol, Pulmicort increased to 1 mg twice daily, IgE level and Alpha I antitrypsin ordered. Flonase also added. 04/13: Patient has been afebrile, heart rate 87, blood pressure 121/70, pulse ox 100% on 2 L nasal cannula. IgE 8.75 with recommendations for repeat as an outpatient. Patient states he is still coughing but less frequently and brin ging up chunks and sometimes blood. Recommend the patient follow-up with Dr. Zamorano as an outpatient for food ALLERGY testing. Mycelex tony added for thrush. Patient is continued on Cymetra 60 mg IV every 8 hours. Review Of Systems: Constitutional: No fever, no chills, no night sweats. No weight change. No weakness, reports fatigue no lethargy. EENT: No headache. No blurred vision or double vision, no loss of vision. No loss of Hearing, no ringing in the ears, no dizziness. No nasal drainage or congestion. No epistaxis. No sore throat. Reports hoarseness. Lungs: Reports shortness of breath and cough-improving, reports sputum production. Reports wheezing. Cardiovascular: No chest pain, no lower extremity edema. No palpitations. No paroxysmal nocturnal dyspnea. No orthopnea. No lightheadedness or dizziness. Abdominal: no abdominal discomfort. No nausea, vomiting. no diarrhea. No constipation. No bloody or tarry stools. no loss of appetite. Genitourinary: No dysuria, increased frequency, urgency. No urinary retention. Musculoskeletal: No myalgias. No muscle weakness, no gait dysfunction, no frequent falls. No back pain. No neck pain. Integumentary: No wounds, no lesions. No rash or pruritus. No unusual bruising. No change in hair or nails. Neurologic: No aphasia. No facial droop. No change in mentation. No head injury. No headache. No paralysis. No paresthesia. Psychiatric: No depression. No anxiety. No mood swings. Endocrine: No abnormal blood sugars. No weight change. No excessive sweating or thirst. Objective - Vital Signs Vital signs: Vital Signs Temp 97.0 F L 04/13/19 05:00 Pulse 86 04/13/19 08:58 Resp 20 04/13/19 05:00 BP 121/70 04/13/19 05:00 Pulse Ox 100 04/13/19 08:37 Intake & Output 04/12/19 04/13/19 04/13/19 18:59 06:59 18:59 Intake Total 1000 Balance 1000 Intake: Oral 1000 Other: # Voids 3 2 - Exam General Appearance: Alert, cooperative, mild distress with conversation and activity, appears stated age. Neck HEENT: Supple, no lymphadenopathy, no thyroid enlargement, no carotid bruits. Lungs: Wheezing and rhonchi scattered Chest Wall: Chest wall decrease expansion with deep inspiration no tenderness and no deformity was found on exam, no costochondral pain or discomfort. Heart: Regular rate and rhythm, S1, S2 normal, no murmur, rub or gallop. Back: Symmetric, no curvature, ROM normal. Abdomen: Soft, non-tender, no rebound or rigidity, no hepatosplenomegaly. Extremities: Extremities normal, atraumatic, no cyanosis or edema. Pulses: 2+ and symmetric. Skin: Skin color, texture, tugor normal, no rashes or lesions. Neurologic: Alert oriented x3 cranial nerves II through XII intact, no motor deficit - Labs CBC & Chem 7: 04/10/19 05:43 04/13/19 07:52 Labs: Abnormal Lab Results - Last 24 Hours (Table) 01/04/12/19 04/12/19 Range/Units 11:29 17:08 20:16 POC Glucose (mg/dL) 122 H 189 H 200 H (75-99) mg/dL 04/13/19 Range/Units 07:06 POC Glucose (mg/dL) 124 H (75-99) mg/dL Microbiology - Last 24 Hours (Table) 04/07/19 16:50 Blood Culture - Preliminary Blood No Growth after 120 hours Assessment and Plan Plan: 1. Acute dyspnea with COPD exacerbation. Continue Pulmicort increased to 1 mg twice daily, Perforomist, DuoNeb, Mucinex 600 mg daily at bedtime, Solu-Medrol increased to 60 mg IV every 8 hour, continue Zosyn and vancomycin 500 mg every 8 hour, monitor blood sugar and cover with NovoLog sliding scale, Dr. Hudson consult reviewed, blood cultures and sputum cultures results pending. However 1 antitrypsin, IgE levels ordered. Telemetry will be discontinued. 2. History of coronary artery disease with post-stenting of the mid RCA, with bare metal stent. Continue aspirin, Lipitor 80 mg at bedtime, Plavix 75 mg daily, Toprol-XL 25 mg daily. 3. Marijuana and remote tobacco use. Patient denies smoking upon discharge to the hospital and readmission. 4. Hypertension. Continue Lopressor. 5. DVT prophylaxis. SADIE hose. 6. GI prophylaxis Pepcid 20 mg daily 7. Underlying asthma suspected, moderate persistent. Patient started on Singulair 10 mg at bedtime, continue DuoNeb treatments and Pulmicort. 8. Oral thrush. Clotrimazole tony added. Discharge plan: home CODE STATUS: No code no CPR and no intubation per patient Impression and plan of care have been directed as dictated by the signing physician. Daysi Nunn nurse practitioner acting as scribe for signing physician.
--- NOTE | 2019-04-13 15:37 | P.PN ---
Subjective Progress Note Date: 04/13/19 Principal diagnosis: Acute COPD exacerbation Coronary artery disease with history of stent in RCA Hypertension hypertensive cardiovascular disease History of substance use IVDA IN past 04/13/2019, patient seen eval examined during the rounds labs reviewed medications reviewed care plan discussed with the patient at length still have ongoing wheezing cough congestion patient is not ready for invasive procedure due to high risk of respiratory failure induction and ventilator requirement will continue current plan of care hopefully early next week patient should be ready for bronchoscopy hemoptysis is most likely related to inflammatory process in the lung continue IV steroids and breathing treatments antibiotics 04/12/2019, patient has been seen eval reexamined and still have ongoing wheezing cough congestion patient has used BiPAP machine for 3 hours last night I have a advised that patient use his BiPAP machine as much as possible continue current plan of care with IV steroids breathing treatments, sputum and blood cultures have been negative 04/11/2019, patient seen eval examined during the rounds cuff congestion is improved but still intermittently wheezing, patient remains on bronchodilator in the steroids along with antibiotics, agree with discharge planning 04/10/2019, patient seen eval examined during the rounds labs reviewed medications reviewed care plan discussed with the patient at length cough congestion or shortness of breath improved patient remains on breathing treatment and steroids 04/09/2019, patient seen and evaluated examined during the rounds labs reviewed medications reviewed care plan discussed with the patient at length, continued to have cough shortness of breath and wheezing but however symptoms slightly better, with activity continued to be short of breath, he remains on supplemental oxygen This is a 58-year-old with end-stage 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 Patient was recently admitted into the hospital for acute chest pain where he was started on oral prednisone. Patient had decreased to 30 mg prednisone and began to have shortness of breath and difficulty breathing. Patient was seen by myself on Wednesday The patient was given a prescription for amoxicillin that he started however due to the increase in difficulty breathing he came to the emergency room. Patient denies any chest pain at this time. He is coughing up yellow thick sputum. Patient did not have any fevers however he did experience chills. Objective - Vital Signs Vital signs: Vital Signs Temp 97.4 F L 04/13/19 12:48 Pulse 90 04/13/19 12:58 Resp 17 04/13/19 12:48 BP 128/87 04/13/19 12:48 Pulse Ox 98 04/13/19 12:48 Intake & Output 04/12/19 04/13/19 04/13/19 18:59 06:59 18:59 Intake Total 1000 Balance 1000 Intake: Oral 1000 Other: # Voids 3 2 3 - Exam General Appearance: Alert, cooperative, moderate distress with conversation and activity, appears stated age. Neck HEENT: Supple, no lymphadenopathy, no thyroid enlargement, no carotid bruits. Lungs: Wheezing and rhonchi Chest Wall: Chest wall decrease expansion with deep inspiration no tenderness and no deformity was found on exam, no costochondral pain or discomfort. Heart: Regular rate and rhythm, S1, S2 normal, no murmur, rub or gallop. Back: Symmetric, no curvature, ROM normal, no CVA tenderness. Abdomen: Soft, non-tender, no rebound or rigidity, no hepatosplenomegaly. Extremities: Extremities normal, atraumatic, no cyanosis or edema. Pulses: 2+ and symmetric. Skin: Skin color, texture, tugor normal, no rashes or lesions. Neurologic: Alert oriented x3 cranial nerves II through XII intact, no motor deficit, no abnormal balance or gait - Labs CBC & Chem 7: 04/10/19 05:43 04/13/19 07:52 Labs: Abnormal Lab Results - Last 24 Hours (Table) 04/12/19 04/12/19 04/13/19 Range/Units 17:08 20:16 07:06 POC Glucose (mg/dL) 189 H 200 H 124 H (75-99) mg/dL 04/13/19 Range/Units 11:43 POC Glucose (mg/dL) 142 H (75-99) mg/dL Microbiology - Last 24 Hours (Table) 04/07/19 16:50 Blood Culture - Preliminary Blood No Growth after 120 hours Assessment and Plan Assessment: Streak hemoptysis Acute COPD exacerbation Coronary artery disease with history of stent in RCA Hypertension hypertensive cardiovascular disease History of substance use IVDA IN past Plan: Continue IV steroids Broad-spectrum antibiotics Breathing treatments Supplemental oxygen Increase activity as tolerated Continue home medications Continue supportive care Hold on bronchoscopy as patient has high risk of inducing her respiratory failure Further recommendations pending plan of care as per clinical response of the patient Time with Patient: Greater than 30
[2019-04-13 17:13] LABS: Glucose,Whole Blood 209 mg/dL (75-99)
[2019-04-13] MEDS: ATORVASTATIN 40 MG TAB PO SCH (20:20)
[2019-04-13] MEDS: ACETAMINOPHEN TAB 325 MG TAB PO PRN (20:20)
[2019-04-13] MEDS: MONTELUKAST 10 MG TAB PO SCH (20:20)
[2019-04-13 20:23] LABS: Glucose,Whole Blood 264 mg/dL (75-99)
[2019-04-14] MEDS: PIPERACILLIN-TAZOBACTAM 3.375 GM in SODIUM CHLORIDE 0.9% 100 ML IVPB SCH ×3 (00:04→15:28)
[2019-04-14] MEDS: CLOTRIMAZOLE TROCHE 10 MG TROCHE MUCOUS MEM SCH ×5 (00:04→21:29)
[2019-04-14] MEDS: methylPREDNISolone SOD SUCCI 125 MG/2 ML VIAL IV SCH ×2 (00:04→07:45)
[2019-04-14] MEDS: IPRATROPIUM-ALBUTEROL 3 ML NEB INHALATION SCH ×5 (03:11→21:03)
[2019-04-14 06:57] LABS: Glucose,Whole Blood 116 mg/dL (75-99)
[2019-04-14] MEDS: BUDESONIDE 1 MG/2 ML NEBU INHALATION SCH ×2 (07:29→21:03)
[2019-04-14] MEDS: FORMOTEROL FUMARATE 20 MCG/2 ML NEBU INHALATION SCH ×2 (07:29→21:03)
[2019-04-14] MEDS: FAMOTIDINE 20 MG TAB PO SCH (07:43)
[2019-04-14] MEDS: METOPROLOL SUCCINATE (ER) 25 MG TAB.ER.24H PO SCH (07:44)
[2019-04-14] MEDS: guaiFENesin 600 MG TABLET.ER PO SCH ×2 (07:44→21:29)
[2019-04-14] MEDS: FLUTICASONE 50MCG/SPRAY NASAL 16GM EA NOSTRIL SCH (07:44)
[2019-04-14] MEDS: ASPIRIN 81 MG PO SCH (07:44)
[2019-04-14] MEDS: CLOPIDOGREL 75 MG TAB PO SCH (07:46)
[2019-04-14] MEDS: INSULIN ASPART (NovoLOG) 100 UNIT/ML VIAL SQ SCH ×4 (07:54→21:29)
[2019-04-14 10:55] VITALS: BMI 29.5
[2019-04-14 11:50] LABS: Alpha 1 Anti-Trypsin 119 mg/dL (90 - 200)
[2019-04-14 11:55] LABS: Glucose,Whole Blood 121 mg/dL (75-99)
--- NOTE | 2019-04-14 15:40 | P.PN ---
Subjective Progress Note Date: 04/14/19 This is a 58-year-old male with past medical history of coronary artery disease and COPD. He presented to the emergency department with respiratory distress. Patient was recently admitted into the hospital for acute chest pain where he was started on oral prednisone. Patient had decreased to 30 mg prednisone and began to have shortness of breath and difficulty breathing. Patient was seen by Dr. Husdon on Wednesday who sent him to be seen in the emergency room for COPD exacerbation. The patient was given a prescription for amoxicillin that he started however due to the increase in difficulty breathing he came to the emergency room. Patient denies any chest pain at this time. He is coughing up yellow thick sputum. Patient did not have any fevers however he did experience chills. At this time patient is resting in room sitting up in bed. Patient has shortness of breath with activity and conversation. Patient is coughing up green/yellow sputum. Which will be obtained for a sputum culture. Patient was given antibiotics while in the hospital previously however the antibiotics were stopped once he was sent home. Then patient was seen by Dr. Hudson he was given amoxicillin however he did not start it due to increased shortness of breath. Patient stated that he was doing fine on the oral prednisone until he decreased to the 30 mg per day. Patient also states that he did not smoke cigarettes or marijuana since his last discharge from the hospital. 04/09: Patient is sitting up in bed stating that he is feeling better shortness of breath has improved slightly. He continues to have some shortness of breath with activity however he's able to hold a conversation with minimal shortness of breath. Patient's voice is still raspy. He is still coughing up green-yellow sputum. Awaiting sputum culture results. he remained afebrile hemodynamically stable. Continues to have O2. 04/10: Sputum culture is showing normal siva, blood culture no growth. Patient is currently on Solu-Medrol 40 mg every 8 hours. Patient continues to complain of raspy hoarse voice. No thrush is noted. Patient is on Zosyn and vancomycin. He has been afebrile, heart rate 96, blood pressure 136/87, pulse ox 98% on 2 L. Repeat blood work reveals WBC 13.6, hemoglobin 13.3, creatinine 0.87, blood sugars running between 142 and 207. 04/11: Patient has been afebrile, heart rate 80, blood pressure 131/81, pulse ox 97% on 2 L nasal cannula. Blood sugar between 146 and 172. Patient states that he has some shortness of breath with ambulation. His voice is less raspy today. He has not home O2 dependent. Solu-Medrol currently at 40 mg every 8 hours and will be transitioned to oral prednisone in the morning. Anticipate discharge home tomorrow. 04/12: Repeat chest x-ray reveals no acute cardiopulmonary disease. Patient has been afebrile, heart rate 84, blood pressure 127/72, pulse ox 97% on 2 L nasal cannula. Patient will be assessed for home oxygen need. Repeat blood work reveals creatinine 0.81, blood sugars running anywhere between 95 and 256. Sputum culture has finalized with normal siva. Blood culture no growth at 96 hours. Patient developed increasing shortness of breath during the night and is stating that he is not any better. He states he feels worse from when he came into the hospital. Patient was started back on Solu-Medrol, Pulmicort increased to 1 mg twice daily, IgE level and Alpha I antitrypsin ordered. Flonase also added. 04/13: Patient has been afebrile, heart rate 87, blood pressure 121/70, pulse ox 100% on 2 L nasal cannula. IgE 8.75 with recommendations for repeat as an outpatient. Patient states he is still coughing but less frequently and brin ging up chunks and sometimes blood. Recommend the patient follow-up with Dr. Zamorano as an outpatient for food ALLERGY testing. Mycelex tony added for thrush. Patient is continued on Cymetra 60 mg IV every 8 hours. 04/14: Patient's breathing status is improved today. He is having less coughing and shortness of breath. Less sputum production. His voice is less raspy and hoarse. Patient states that he was eating peanuts yesterday which may have caused his worsening symptoms. Dr. Hudson is planning for bronchoscopy possibly early next week. Patient has been afebrile, heart rate 88, blood pressure 107/68, pulse ox 97% on room air. Blood sugar running 116-264. Solu-Medrol is currently at 60 mg every 8 hours will be decreased to 40 every 12 hours. Alpha I antitrypsin was normal. Anticipate discharge home tomorrow. Review Of Systems: Constitutional: No fever, no chills, no night sweats. No weight change. No weakness, reports fatigue no lethargy. EENT: No headache. No blurred vision or double vision, no loss of vision. No loss of Hearing, no ringing in the ears, no dizziness. No nasal drainage or congestion. No epistaxis. No sore throat. Reports hoarseness. Lungs: Reports shortness of breath and cough-improving, reports sputum production-improving. Reports wheezing-improving. Cardiovascular: No chest pain, no lower extremity edema. No palpitations. No p aroxysmal nocturnal dyspnea. No orthopnea. No lightheadedness or dizziness. Abdominal: no abdominal discomfort. No nausea, vomiting. no diarrhea. No constipation. No bloody or tarry stools. no loss of appetite. Genitourinary: No dysuria, increased frequency, urgency. No urinary retention. Musculoskeletal: No myalgias. No muscle weakness, no gait dysfunction, no frequent falls. No back pain. No neck pain. Integumentary: No wounds, no lesions. No rash or pruritus. No unusual bruisin g. No change in hair or nails. Neurologic: No aphasia. No facial droop. No change in mentation. No head injury. No headache. No paralysis. No paresthesia. Psychiatric: No depression. No anxiety. No mood swings. Endocrine: No abnormal blood sugars. No weight change. No excessive sweating or thirst. Objective - Vital Signs Vital signs: Vital Signs Temp 98.1 F 04/14/19 05:09 Pulse 72 04/14/19 07:54 Resp 18 04/14/19 08:00 BP 107/68 04/14/19 05:09 Pulse Ox 97 04/14/19 05:09 Intake & Output 04/13/19 04/14/19 04/14/19 18:59 06:59 18:59 Intake Total 1000 Balance 1000 Intake: Oral 1000 Other: # Voids 3 2 - Exam General Appearance: Alert, cooperative, no distress with conversation and activity, appears stated age. Neck HEENT: Supple, no lymphadenopathy, no thyroid enlargement, no carotid bruits. Lungs: Prolonged expiratory phase, few scattered wheezing and rhonchi. No intercostal retractions. Heart: Regular rate and rhythm, S1, S2 normal, no murmur, rub or gallop. Back: Symmetric, no curvature, ROM normal. Abdomen: Soft, non-tender, no rebound or rigidity, no hepatosplenomegaly. Extremities: Extremities normal, atraumatic, no cyanosis or edema. Pulses: 2+ and symmetric. Skin: Skin color, texture, tugor normal, no rashes or lesions. Neurologic: Alert oriented x3 cranial nerves II through XII intact, no motor deficit - Labs CBC & Chem 7: 04/10/19 05:43 04/13/19 07:52 Labs: Abnormal Lab Results - Last 24 Hours (Table) 04/13/19 04/13/19 04/13/19 Range/Units 11:43 17:11 20:19 POC Glucose (mg/dL) 142 H 209 H 264 H (75-99) mg/dL 04/14/19 Range/Units 06:54 POC Glucose (mg/dL) 116 H (75-99) mg/dL Microbiology - Last 24 Hours (Table) 04/07/19 16:50 Blood Culture - Final Blood No Growth after 144 hours Assessment and Plan Plan: 1. Acute dyspnea with COPD exacerbation. Continue Pulmicort increased to 1 mg twice daily, Perforomist, DuoNeb, Mucinex 600 mg daily at bedtime, Solu-Medrol decreased to 40 mg every 12 hour, continue Dr. Tristan Millan consult reviewed, blood cultures and sputum cultures, alpha 1 antitrypsin, IgE levels normal. Telemetry will be discontinued. 2. History of coronary artery disease with post-stenting of the mid RCA, with bare metal stent. Continue aspirin, Lipitor 80 mg at bedtime, Plavix 75 mg daily, Toprol-XL 25 mg daily. 3. Marijuana and remote tobacco use. Patient denies smoking upon discharge to the hospital and readmission. 4. Hypertension. Continue Lopressor. 5. DVT prophylaxis. SADIE hose. 6. GI prophylaxis Pepcid 20 mg daily 7. Underlying asthma suspected, moderate persistent. Patient started on Singulair 10 mg at bedtime, continue DuoNeb treatments and Pulmicort. 8. Oral thrush. Clotrimazole tony added. Discharge plan: home on Wednesday CODE STATUS: No code no CPR and no intubation per patient Impression and plan of care have been directed as dictated by the signing physician. Daysi Convery nurse practitioner acting as scribe for signing physician.
[2019-04-14 16:53] LABS: Glucose,Whole Blood 175 mg/dL (75-99)
[2019-04-14 21:20] LABS: Glucose,Whole Blood 109 mg/dL (75-99)
[2019-04-14] MEDS: methylPREDNISolone SOD SUCCI 40 MG/ML 1 ML VIAL IV SCH (21:29)
[2019-04-14] MEDS: MONTELUKAST 10 MG TAB PO SCH (21:29)
[2019-04-14] MEDS: ATORVASTATIN 40 MG TAB PO SCH (21:29)
[2019-04-15] MEDS: IPRATROPIUM-ALBUTEROL 3 ML NEB INHALATION SCH ×5 (01:04→12:10)
[2019-04-15] MEDS: CLOTRIMAZOLE TROCHE 10 MG TROCHE MUCOUS MEM SCH ×3 (06:33→10:18)
[2019-04-15 07:10] LABS: Glucose,Whole Blood 96 mg/dL (75-99)
[2019-04-15] MEDS: INSULIN ASPART (NovoLOG) 100 UNIT/ML VIAL SQ SCH ×2 (07:16→12:07)
[2019-04-15] MEDS: ASPIRIN 81 MG PO SCH (07:24)
[2019-04-15] MEDS: FLUTICASONE 50MCG/SPRAY NASAL 16GM EA NOSTRIL SCH (07:24)
[2019-04-15] MEDS: METOPROLOL SUCCINATE (ER) 25 MG TAB.ER.24H PO SCH (07:24)
[2019-04-15] MEDS: FAMOTIDINE 20 MG TAB PO SCH (07:24)
[2019-04-15] MEDS: guaiFENesin 600 MG TABLET.ER PO SCH (07:25)
[2019-04-15] MEDS: methylPREDNISolone SOD SUCCI 40 MG/ML 1 ML VIAL IV SCH (07:25)
[2019-04-15] MEDS: CLOPIDOGREL 75 MG TAB PO SCH (07:25)
[2019-04-15] MEDS: PIPERACILLIN-TAZOBACTAM 3.375 GM in SODIUM CHLORIDE 0.9% 100 ML IVPB SCH ×3 (07:25)
[2019-04-15 07:52] VITALS: BP 127/83; RESP 18; TEMP 97.9
[2019-04-15] MEDS: FORMOTEROL FUMARATE 20 MCG/2 ML NEBU INHALATION SCH (08:35)
[2019-04-15] MEDS: BUDESONIDE 1 MG/2 ML NEBU INHALATION SCH (08:35)
[2019-04-15 11:57] LABS: Glucose,Whole Blood 118 mg/dL (75-99)
[2019-04-15 12:20] VITALS: PULSE 84
--- NOTE | 2019-04-15 12:31 | P.DS ---
Providers Date of admission: 04/07/19 16:39 Expected date of discharge: 04/15/19 Attending physician: Kirby Christian Consults: 04/07/19 16:34 Consult Physician Urgent Consulting Provider: Gabriel Hudson Consult Reason/Comments: AECOPD Do you want consulting provider notified?: Yes Primary care physician: [facility] Course: This is a 58-year-old male with past medical history of coronary artery disease and COPD. He presented to the emergency department with respiratory distress. Patient was recently admitted into the hospital for acute chest pain where he was started on oral prednisone. Patient had decreased to 30 mg prednisone and began to have shortness of breath and difficulty breathing. Patient was seen by Dr. Hudson on Wednesday who sent him to be seen in the emergency room for COPD exacerbation. The patient was given a prescription for amoxicillin that he started however due to the increase in difficulty breathing he came to the emergency room. Patient denies any chest pain at this time. He is coughing up yellow thick sputum. Patient did not have any fevers however he did experience chills. At this time patient is resting in room sitting up in bed. Patient has shortness of breath with activity and conversation. Patient is coughing up green/yellow sputum. Which will be obtained for a sputum culture. Patient was given antibiotics while in the hospital previously however the antibiotics were stopped once he was sent home. Then patient was seen by Dr. Hudson he was given amoxicillin however he did not start it due to increased shortness of breath. Patient stated that he was doing fine on the oral prednisone until he decreased to the 30 mg per day. Patient also states that he did not smoke cigarettes or marijuana since his last discharge from the hospital. 04/09: Patient is sitting up in bed stating that he is feeling better shortness of breath has improved slightly. He continues to have some shortness of breath with activity however he's able to hold a conversation with minimal shortness of breath. Patient's voice is still raspy. He is still coughing up green-yellow sputum. Awaiting sputum culture results. he remained afebrile hemodynamically stable. Continues to have O2. 04/10: Sputum culture is showing normal siva, blood culture no growth. Patient is currently on Solu-Medrol 40 mg every 8 hours. Patient continues to complain of raspy hoarse voice. No thrush is noted. Patient is on Zosyn and vancomycin. He has been afebrile, heart rate 96, blood pressure 136/87, pulse ox 98% on 2 L. Repeat blood work reveals WBC 13.6, hemoglobin 13.3, creatinine 0.87, blood sugars running between 142 and 207. 04/11: Patient has been afebrile, heart rate 80, blood pressure 131/81, pulse ox 97% on 2 L nasal cannula. Blood sugar between 146 and 172. Patient states that he has some shortness of breath with ambulation. His voice is less raspy today. He has not home O2 dependent. Solu-Medrol currently at 40 mg every 8 hours and will be transitioned to oral prednisone in the morning. Anticipate discharge home tomorrow. 04/12: Repeat chest x-ray reveals no acute cardiopulmonary disease. Patient has been afebrile, heart rate 84, blood pressure 127/72, pulse ox 97% on 2 L nasal cannula. Patient will be assessed for home oxygen need. Repeat blood work reveals creatinine 0.81, blood sugars running anywhere between 95 and 256. Sputum culture has finalized with normal siva. Blood culture no growth at 96 hours. Patient developed increasing shortness of breath during the night and is stating that he is not any better. He states he feels worse from when he came into the hospital. Patient was started back on Solu-Medrol, Pulmicort increased to 1 mg twice daily, IgE level and Alpha I antitrypsin ordered. Flonase also added. 04/13: Patient has been afebrile, heart rate 87, blood pressure 121/70, pulse ox 100% on 2 L nasal cannula. IgE 8.75 with recommendations for repeat as an outpatient. Patient states he is still coughing but less frequently and bringing up chunks and sometimes blood. Recommend the patient follow-up with Dr. Zamorano as an outpatient for food ALLERGY testing. Mycelex tony added for thrush. Patient is continued on Cymetra 60 mg IV every 8 hours. 04/14: Patient's breathing status is improved today. He is having less coughing and shortness of breath. Less sputum production. His voice is less raspy and hoarse. Patient states that he was eating peanuts yesterday which may have caused his worsening symptoms. Dr. Hudson is planning for bronchoscopy possibly early next week. Patient has been afebrile, heart rate 88, blood pressure 107/68, pulse ox 97% on room air. Blood sugar running 116-264. Solu-Medrol is currently at 60 mg every 8 hours will be decreased to 40 every 12 hours. Alpha I antitrypsin was normal. Anticipate discharge home tomorrow. 04/15: Patient's breathing status is stable. His room air Amer laboratory pulse ox is 96% no need for home oxygen. Patient will be discharged home today in stable condition. Discharge diagnoses: 1. Acute dyspnea with COPD exacerbation. 2. History of coronary artery disease with post-stenting of the mid RCA, with bare metal stent. 3. Marijuana and remote tobacco use. 4. Hypertension. 5. Hyperglycemia secondary to steroids 6. Underlying asthma suspected, moderate persistent. 7. Oral thrush. . Discharge plan: home Impression and plan of care have been directed as dictated by the signing physician. Daysi Nunn nurse practitioner acting as scribe for signing physician. Patient Condition at Discharge: Good Plan - Discharge Summary Discharge Rx Participant: Yes New Discharge Prescriptions: New Amoxicillin/Potassium Clav [Augmentin 875-125 Tablet] 1 tab PO BID 3 Days #6 tab Fluticasone Nasal [place] [Flonase Nasal [place]] 2 spray EA NOSTRIL DAILY #1 d evice guaiFENesin [Mucinex] 600 mg PO Q12HR tablet.er Clotrimazole Tony [Mycelex Tony] 10 mg MUCOUS MEM 5XD #25 tony Famotidine [Pepcid] 20 mg PO DAILY tab predniSONE 0 mg PO DIRECTED #30 tab Montelukast [Singulair] 10 mg PO HS #30 tab Continue Albuterol Sulfate [Ventolin HFA] 2 puff INHALATION RT-Q6H PRN PRN Reason: Shortness Of Breath Budesonide [Pulmicort] 0.5 mg INHALATION RT-BID Arformoterol Tartrate [Brovana] 15 mcg INHALATION RT-BID Albuterol Nebulized [Ventolin Nebulized] 2.5 mg INHALATION RT-Q4H PRN PRN Reason: Shortness Of Breath Ipratropium Nebulized [Atrovent Nebulized 0.2 MG/ML] 0.5 mg INHALATION RT-BID Clopidogrel Bisulfate [Plavix] 75 mg PO DAILY #90 tab Metoprolol Succinate (ER) [Toprol XL] 25 mg PO DAILY Aspirin EC [Ecotrin Low Dose] 81 mg PO DAILY Atorvastatin [Lipitor] 40 mg PO HS Discontinued Amoxicillin 500 mg PO TID predniSONE See Taper PO DIRECTED Discharge Medication List Albuterol Sulfate [Ventolin HFA] 2 puff INHALATION RT-Q6H PRN 09/07/14 [History] Albuterol Nebulized [Ventolin Nebulized] 2.5 mg INHALATION RT-Q4H PRN 03/03/16 [History] Arformoterol Tartrate [Brovana] 15 mcg INHALATION RT-BID 03/03/16 [History] Budesonide [Pulmicort] 0.5 mg INHALATION RT-BID 03/03/16 [History] Ipratropium Nebulized [Atrovent Nebulized 0.2 MG/ML] 0.5 mg INHALATION RT-BID 03/23/17 [History] Clopidogrel Bisulfate [Plavix] 75 mg PO DAILY #90 tab 12/30/18 [Rx] Aspirin EC [Ecotrin Low Dose] 81 mg PO DAILY 04/01/19 [History] Metoprolol Succinate (ER) [Toprol XL] 25 mg PO DAILY 04/01/19 [History] Atorvastatin [Lipitor] 40 mg PO HS 04/07/19 [History] Amoxicillin/Potassium Clav [Augmentin 875-125 Tablet] 1 tab PO BID 3 Days #6 tab 04/15/19 [Rx] Clotrimazole Tony [Mycelex Tony] 10 mg MUCOUS MEM 5XD #25 tony 04/15/19 [Rx] Famotidine [Pepcid] 20 mg PO DAILY tab 04/15/19 [Rx] Fluticasone Nasal [place] [Flonase Nasal [place]] 2 spray EA NOSTRIL DAILY #1 device 04/15/19 [Rx] Montelukast [Singulair] 10 mg PO HS #30 tab 04/15/19 [Rx] guaiFENesin [Mucinex] 600 mg PO Q12HR tablet.er 04/15/19 [Rx] predniSONE 0 mg PO DIRECTED #30 tab 04/15/19 [Rx] Follow up Appointment(s)/Referral(s): Carl Kern DO [Doctor of Osteopathic Medicine] - 4 Weeks (eval for food allergies) Bear Arias MD [Primary Care Provider] - 1 Week Ali,Gabriel, MD [STAFF PHYSICIAN] - 1 Week (To have bronchoscopy early next week. ) Patient Instructions/Handouts: COPD (Chronic Obstructive Pulmonary Disease) (DC) Discharge Disposition: HOME SELF-CARE
--- NOTE | 2019-04-19 17:02 | P.PN ---
Subjective Progress Note Date: 04/14/19 (Late entry note) Principal diagnosis: Acute COPD exacerbation Coronary artery disease with history of stent in RCA Hypertension hypertensive cardiovascular disease History of substance use IVDA IN past 04/14/2019 patient seen eval examined during the morning rounds breathing has improved cuff congestion is better now patient feels respiratory status is better further workup and evaluation as outpatient agree with discharge planning 04/13/2019, patient seen eval examined during the rounds labs reviewed medications reviewed care plan discussed with the patient at length still have ongoing wheezing cough congestion patient is not ready for invasive procedure due to high risk of respiratory failure induction and ventilator requirement will continue current plan of care hopefully early next week patient should be ready for bronchoscopy hemoptysis is most likely related to inflammatory process in the lung continue IV steroids and breathing treatments antibiotics 04/12/2019, patient has been seen eval reexamined and still have ongoing wheezing cough congestion patient has used BiPAP machine for 3 hours last night I have a advised that patient use his BiPAP machine as much as possible continue current plan of care with IV steroids breathing treatments, sputum and blood cultures have been negative 04/11/2019, patient seen eval examined during the rounds cuff congestion is improved but still intermittently wheezing, patient remains on bronchodilator in the steroids along with antibiotics, agree with discharge planning 04/10/2019, patient seen eval examined during the rounds labs reviewed medications reviewed care plan discussed with the patient at length cough congestion or shortness of breath improved patient remains on breathing treatment and steroids 04/09/2019, patient seen and evaluated examined during the rounds labs reviewed medications reviewed care plan discussed with the patient at length, continued to have cough shortness of breath and wheezing but however symptoms slightly better, with activity continued to be short of breath, he remains on supplemental oxygen This is a 58-year-old with end-stage 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 Patient was recently admitted into the hospital for acute chest pain where he was started on oral prednisone. Patient had decreased to 30 mg prednisone and began to have shortness of breath and difficulty breathing. Patient was seen by myself on Wednesday The patient was given a prescription for amoxicillin that he started however due to the increase in difficulty breathing he came to the emergency room. Patient denies any chest pain at this time. He is coughing up yellow thick sputum. Patient did not have any fevers however he did experience chills. Objective - Vital Signs Vital signs: Vital Signs Temp 97.9 F 04/15/19 07:00 Pulse 84 04/15/19 12:20 Resp 18 04/15/19 07:00 BP 127/83 04/15/19 07:00 Pulse Ox 96 04/15/19 10:20 - Exam General Appearance: Alert, cooperative, moderate distress with conversation and activity, appears stated age. Neck HEENT: Supple, no lymphadenopathy, no thyroid enlargement, no carotid bruits. Lungs: Wheezing and rhonchi Chest Wall: Chest wall decrease expansion with deep inspiration no tenderness and no deformity was found on exam, no costochondral pain or discomfort. Heart: Regular rate and rhythm, S1, S2 normal, no murmur, rub or gallop. Back: Symmetric, no curvature, ROM normal, no CVA tenderness. Abdomen: Soft, non-tender, no rebound or rigidity, no hepatosplenomegaly. Extremities: Extremities normal, atraumatic, no cyanosis or edema. Pulses: 2+ and symmetric. Skin: Skin color, texture, tugor normal, no rashes or lesions. Neurologic: Alert oriented x3 cranial nerves II through XII intact, no motor deficit, no abnormal balance or gait - Labs CBC & Chem 7: 04/10/19 05:43 04/13/19 07:52 Assessment and Plan Assessment: Streak hemoptysis Acute COPD exacerbation Coronary artery disease with history of stent in RCA Hypertension hypertensive cardiovascular disease History of substance use IVDA IN past Plan: Continue IV steroids Broad-spectrum antibiotics Breathing treatments Supplemental oxygen Increase activity as tolerated Continue home medications Continue supportive care Hold on bronchoscopy as patient has high risk of inducing her respiratory failure Further recommendations pending plan of care as per clinical response of the patient Time with Patient: Greater than 30
== END 2019-04-15 14:09 | disposition home or self-care (01) | DRG 191 ==
LOC: EC 14:05 → 3SCARD 16:39 → 6NMEDSUR 04-10 22:30
PROVIDERS: ADMIT Internal Medicine; ATTEND Internal Medicine
DX: J43.9 Emphysema, unspecified (principal); B37.0 Candidal stomatitis; R04.2 Hemoptysis; I11.9 Hypertensive heart disease without heart failure; Z66 Do not resuscitate; J45.40 Moderate persistent asthma, uncomplicated; R73.9 Hyperglycemia, unspecified; R09.02 Hypoxemia; T38.0X5A Adverse effect of glucocorticoids and synthetic analogues, initial encounter; I25.10 Atherosclerotic heart disease of native coronary artery without angina pectoris; I25.2 Old myocardial infarction; M13.0 Polyarthritis, unspecified; Z95.5 Presence of coronary angioplasty implant and graft; Z79.82 Long term (current) use of aspirin; Z79.51 Long term (current) use of inhaled steroids; Z79.02 Long term (current) use of antithrombotics/antiplatelets; Z79.899 Other long term (current) drug therapy; Z87.891 Personal history of nicotine dependence; Z96.653 Presence of artificial knee joint, bilateral; Z98.890 Other specified postprocedural states; Z88.1 Allergy status to other antibiotic agents; Z80.1 Family history of malignant neoplasm of trachea, bronchus and lung; Z81.2 Family history of tobacco abuse and dependence; Z83.3 Family history of diabetes mellitus; Z82.49 Family history of ischemic heart disease and other diseases of the circulatory system; Z80.8 Family history of malignant neoplasm of other organs or systems; Z82.79 Family history of other congenital malformations, deformations and chromosomal abnormalities
CPT/HCPCS: 36415; 71045; 80048; 80053; 80202; 82103; 82104; 82565; 82785; 83735; 83880; 84484; 85025; 85610; 85730; 87040; 87070; 87205; 87502; 93005; 94640; 94644; 94660; 94760; 96365; 96367; 96375; 99285

== ENCOUNTER 2019-04-26 10:06 | Inpatient (IN) | payer MEDICARE, OTHER ==
--- NOTE | 2019-04-26 11:34 | XR ---
EXAMINATION TYPE: XR chest 2V DATE OF EXAM: 04/26/2019 COMPARISON: 04/11/2019 HISTORY: Shortness of breath TECHNIQUE: Frontal and lateral views of the chest are obtained. FINDINGS: There is no focal air space opacity, pleural effusion, or pneumothorax seen. Unfolding of the thoracic aorta is similar to the prior. The cardiac silhouette size is within normal limits. Pu lmonary hyperinflation of underlying COPD. The osseous structures are intact. Mild multilevel degener ative change of the spine. IMPRESSION: No acute cardiopulmonary process.
[2019-04-26] MEDS ORDERED: IPRATROPIUM-ALBUTEROL 3 ML NEB INHALATION STA ×2 (11:45→12:55)
[2019-04-26] MEDS ORDERED: methylPREDNISolone SOD SUCCI 125 MG/2 ML VIAL IV STA (11:45)
[2019-04-26] MEDS ORDERED: SODIUM CHLORIDE 0.9% 1,000 ML IV STA ×2 (11:45)
[2019-04-26 11:55] LABS: Basophils # (A) 0.1 k/uL (0-0.2); Basophils % (A) 0 %; Eosinophils # (A) 0.1 k/uL (0-0.7); Eosinophils % (A) 1 %; HCT 40.7 % (39.0-53.0); HGB 13.6 gm/dL (13.0-17.5); Lymphocytes # (A) 0.9 k/uL (1.0-4.8); Lymphocytes % (A) 9 %; MCH 30.2 pg (25.0-35.0); MCHC 33.3 g/dL (31.0-37.0); MCV 90.6 fL (80.0-100.0); Mean Platelet Volume 7.8; Monocytes # (A) 0.5 k/uL (0-1.0); Monocytes % (A) 4 %; Neutrophils # (A) 9.2 k/uL (1.3-7.7); Neutrophils % (A) 85 %; Platelet Count 179 k/uL (150-450); RBC 4.49 m/uL (4.30-5.90); RDW 13.7 % (11.5-15.5); WBC 10.8 k/uL (3.8-10.6)
[2019-04-26 12:04] LABS: ALT 33 U/L (4-49); AST 29 U/L (17-59); African American GFR (CKD) >90 (>60 ml/min/1.73 sqM); Albumin 3.8 g/dL (3.5-5.0); Alkaline Phosphatase 94 U/L (38-126); Anion Gap 10 mmol/L; Blood Urea Nitrogen 14 mg/dL (9-20); Carbon Dioxide 23 mmol/L (22-30); Chloride 106 mmol/L (98-107); Glucose 144 mg/dL (74-99); Non-African American GFR(CKD) >90 (>60 ml/min/1.73 sqM); Potassium 4.1 mmol/L (3.5-5.1); Sodium 139 mmol/L (137-145); Total Bilirubin 1.7 mg/dL (0.2-1.3); Total Protein 6.6 g/dL (6.3-8.2)
--- NOTE | 2019-04-26 12:30 | ED ---
General Adult HPI - General Source: patient, RN notes reviewed, old records reviewed Mode of arrival: ambulatory Limitations: no limitations <Tiffany Perry - Last Filed: 04/26/19 14:31> <Pablo Maya - Last Filed: 04/26/19 14:48> - General Chief complaint: Shortness of Breath Stated complaint: SOB, infection Time Seen by Provider: 04/26/19 11:39 - History of Present Illness Initial comments: Patient is a 58-year-old male history of COPD. Presents today for enough for concern for shortness of breath cough congestion. Patient reports worsening symptoms for 3 days, last breathing treatment this morning. Recently admitted for COPD exacerbation. 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 Patient states that he is finishing his last steroid dose today. Denies current antibiotics. Patient states he last took a breathing treatment at 7:30 this morning. He complains of yellow green sputum production. Patient reports that he has had some chest pain with coughing. Patient states that he's had no nausea or vomiting. Denies abdominal pain. Patient does not wear oxygen. (Tiffany Perry) - Related Data Home Medications Medication Instructions Recorded Confirmed Albuterol Sulfate [Ventolin HFA] 2 puff INHALATION RT-Q6H PRN 09/07/14 04/07/19 Albuterol Nebulized [Ventolin 2.5 mg INHALATION RT-Q4H PRN 03/03/16 04/07/19 Nebulized] Arformoterol Tartrate [Brovana] 15 mcg INHALATION RT-BID 03/03/16 04/07/19 Budesonide [Pulmicort] 0.5 mg INHALATION RT-BID 03/03/16 04/07/19 Ipratropium Nebulized [Atrovent 0.5 mg INHALATION RT-BID 03/23/17 04/07/19 Nebulized 0.2 MG/ML] Aspirin EC [Ecotrin Low Dose] 81 mg PO DAILY 04/01/19 04/07/19 Metoprolol Succinate (ER) [Toprol 25 mg PO DAILY 04/01/19 04/07/19 XL] Atorvastatin [Lipitor] 40 mg PO HS 04/07/19 04/07/19 Previous Rx's Medication Instructions Recorded Clopidogrel Bisulfate [Plavix] 75 mg PO DAILY #90 tab 12/30/18 Amoxicillin/Potassium Clav 1 tab PO BID 3 Days #6 tab 04/15/19 [Augmentin 875-125 Tablet] Clotrimazole Tony [Mycelex 10 mg MUCOUS MEM 5XD #25 tony 04/15/19 Tony] Famotidine [Pepcid] 20 mg PO DAILY tab 04/15/19 Fluticasone Nasal [place] [Flonase 2 spray EA NOSTRIL DAILY #1 device 04/15/19 Nasal [place]] Montelukast [Singulair] 10 mg PO HS #30 tab 04/15/19 guaiFENesin [Mucinex] 600 mg PO Q12HR tablet.er 04/15/19 predniSONE 0 mg PO DIRECTED #30 tab 04/15/19 Allergies Allergy/AdvReac Type Severity Reaction Status Date / Time levofloxacin [From Levaquin] Allergy Rash/Hives Verified 04/26/19 10:39 Review of Systems ROS Other: All systems not noted in ROS Statement are negative. <Tfifany Perry - Last Filed: 04/26/19 14:31> ROS Other: All systems not noted in ROS Statement are negative. <Pablo Maya - Last Filed: 04/26/19 14:48> ROS Statement: Those systems with pertinent positive or pertinent negative responses have been documented in the HPI. Past Medical History Past Medical History: Coronary Artery Disease (CAD), COPD, Myocardial Infarction ([place]) Additional Past Medical History / Comment(s): Pt states he has hx of 3 respiratory arrests and was vented, generalized arthritis, Last Myocardial Infarction Date:: History of Any Multi-Drug Resistant Organisms: None Reported Past Surgical History: Adenoidectomy, Heart Catheterization With Stent, Hernia Repair, Joint Replacement, Orthopedic Surgery, Tonsillectomy Additional Past Surgical History / Comment(s): R inguinal hernia repair, L rotator cuff repair, bialteral total knee arthroplasties, R shoulder spur removal, teeth extracted, colonoscopy-normal. third hernia repair, left side Past Anesthesia/Blood Transfusion Reactions: No Reported Reaction Date of Last Stent Placement:: 2018 Past Psychological History: No Psychological Hx Reported Smoking Status: Former smoker Past Alcohol Use History: None Reported Past Drug Use History: Marijuana - Past Family History Father Family Medical History: Cancer Additional Family Medical History / Comment(s): Father of lung cancer at the age of 62. He was a smoker. Mother Family Medical History: Diabetes Mellitus, Hypertension Additional Family Medical History / Comment(s): Mother at age 78 from brainstem cancer. Brother(s) Additional Family Medical History / Comment(s): Patient's 1 brother with history of AAA. Patient has 4 sisters and he does not know any of their medical history. Patient's 1 son and 1 daughter living. He had one daughter that at 7 weeks old from a congenital heart. <Tiffany Perry - Last Filed: 04/26/19 14:31> General Exam Limitations: no limitations General appearance: alert, in no apparent distress Head exam: Present: atraumatic, normocephalic, normal inspection Eye exam: Present: normal appearance, PERRL, EOMI. Absent: scleral icterus, conjunctival injection, periorbital swelling ENT exam: Present: normal exam, mucous membranes moist Neck exam: Present: normal inspection. Absent: tenderness, meningismus, lymphadenopathy Respiratory exam: Present: wheezes. Absent: normal lung sounds bilaterally, respiratory distress, rales, rhonchi, stridor Cardiovascular Exam: Present: regular rate, normal rhythm, normal heart sounds. Absent: systolic murmur, diastolic murmur, rubs, gallop, clicks GI/Abdominal exam: Present: soft, normal bowel sounds. Absent: distended, tenderness, guarding, rebound, rigid Extremities exam: Present: normal inspection, full ROM, normal capillary refill. Absent: tenderness, pedal edema, joint swelling, calf tenderness Back exam: Present: normal inspection Neurological exam: Present: alert, oriented X3, CN II-XII intact Psychiatric exam: Present: normal affect, normal mood Skin exam: Present: warm, dry, intact, normal color. Absent: rash <Tiffany Perry - Last Filed: 04/26/19 14:31> - General Exam Comments Initial Comments: 58-year-old male. Alert and oriented 3. Patient appears in no significant distress at this time. (Tiffany Perry) Course <Pablo Maya - Last Filed: 04/26/19 14:48> Vital Signs 04/26/19 04/26/19 04/26/19 10:36 12:00 12:10 Temperature 98 F Pulse Rate 105 H 98 90 Respiratory 20 Rate Blood Pressure 123/83 O2 Sat by Pulse 96 Oximetry 04/26/19 04/26/19 04/26/19 12:22 12:23 13:16 Temperature Pulse Rate 104 H 98 94 Respiratory 20 Rate Blood Pressure O2 Sat by Pulse 97 Oximetry 04/26/19 04/26/19 04/26/19 13:28 13:32 13:49 Temperature Pulse Rate 92 104 H Respiratory 28 H Rate Blood Pressure O2 Sat by Pulse 97 96 Oximetry 04/26/19 14:43 Temperature Pulse Rate 79 Respiratory 28 H Rate Blood Pressure 110/64 O2 Sat by Pulse 96 Oximetry - Reevaluation(s) Reevaluation #1: 04/26/19 14:46 PA supervision: I proceeded [id number] evaluation the patient he is demonstrated dyspnea with diaphoresis he has been short of breath or past 3 days coughing up thick white phlegm this is similar to previous episodes of. Patient still smokes. X-ray and lab work is indicative of COPD exacerbation. Patient will be admitted with consultation by Dr. Hudson. I did discuss case Dr. Flores. 04/26/19 14:48 Breath sounds are markedly diminished on evaluation with some scattered wheezing. He does demonstrate exertional effort in breathing. (Pablo Maya) Medical Decision Making - Lab Data Result diagrams: 04/26/19 11:27 04/26/19 11:27 - Radiology Data Radiology results: report reviewed <Tiffany Perry - Last Filed: 04/26/19 14:31> - Lab Data Result diagrams: 04/26/19 11:27 04/26/19 11:27 <Pablo Maya - Last Filed: 04/26/19 14:48> - Medical Decision Making 58-year-old male presented today for enough for concern for difficulty breathing worsening cough congestion. History of COPD. Was recently admitted discharged on 04/14. He does have productive cough with yellow sputum. Wheezing was noted. Given 3 breathing treatments. On reevaluation he continues to have some coughing and wheezing. He is 97% on 2 L. He does not wear oxygen at home at this time. Blood cultures were obtained. Patient started on Rocephin and azithromycin and Solu-Medrol. She was admitted for COPD exacerbation. Discussed case with Dr. Maya, whom discussed case with Dr. Flores. (Tiffany Perry) - Lab Data Lab Results 0104/26/19 04/26/19 Range/Units 10:35 11:27 11:27 WBC 10.8 H (3.8-10.6) k/uL RBC 4.49 (4.30-5.90) m/uL Hgb 13.6 (13.0-17.5) gm/dL Hct 40.7 (39.0-53.0) % MCV 90.6 (80.0-100.0) fL MCH 30.2 (25.0-35.0) pg MCHC 33.3 (31.0-37.0) g/dL RDW 13.7 (11.5-15.5) % Plt Count 179 (150-450) k/uL Neutrophils % 85 % Lymphocytes % 9 % Monocytes % 4 % Eosinophils % 1 % Basophils % 0 % Neutrophils # 9.2 H (1.3-7.7) k/uL Lymphocytes # 0.9 L (1.0-4.8) k/uL Monocytes # 0.5 (0-1.0) k/uL Eosinophils # 0.1 (0-0.7) k/uL Basophils # 0.1 (0-0.2) k/uL Sodium 139 (137-145) mmol/L Potassium 4.1 (3.5-5.1) mmol/L Chloride 106 (98-107) mmol/L Carbon Dioxide 23 (22-30) mmol/L Anion Gap 10 mmol/L BUN 14 (9-20) mg/dL Creatinine 0.80 (0.66-1.25) mg/dL Est GFR (CKD-EPI)AfAm >90 (>60 ml/min/1.73 sqM) Est GFR (CKD-EPI)NonAf >90 (>60 ml/min/1.73 sqM) Glucose 144 H (74-99) mg/dL Plasma Lactic Acid Rito (0.7-2.0) mmol/L Calcium 9.0 (8.4-10.2) mg/dL Total Bilirubin 1.7 H (0.2-1.3) mg/dL AST 29 (17-59) U/L ALT 33 (4-49) U/L Alkaline Phosphatase 94 (38-126) U/L Troponin I (0.000-0.034) ng/mL Total Protein 6.6 (6.3-8.2) g/dL Albumin 3.8 (3.5-5.0) g/dL Influenza Type A RNA Not Detected (Not Detectd) Influenza Type B (PCR) Not Detected (Not Detectd) 04/26/19 04/26/19 Range/Units 11:27 11:27 WBC (3.8-10.6) k/uL RBC (4.30-5.90) m/uL Hgb (13.0-17.5) gm/dL Hct (39.0-53.0) % MCV (80.0-100.0) fL MCH (25.0-35.0) pg MCHC (31.0-37.0) g/dL RDW (11.5-15.5) % Plt Count (150-450) k/uL Neutrophils % % Lymphocytes % % Monocytes % % Eosinophils % % Basophils % % Neutrophils # (1.3-7.7) k/uL Lymphocytes # (1.0-4.8) k/uL Monocytes # (0-1.0) k/uL Eosinophils # (0-0.7) k/uL Basophils # (0-0.2) k/uL Sodium (137-145) mmol/L Potassium (3.5-5.1) mmol/L Chloride (98-107) mmol/L Carbon Dioxide (22-30) mmol/L Anion Gap mmol/L BUN (9-20) mg/dL Creatinine (0.66-1.25) mg/dL Est GFR (CKD-EPI)AfAm (>60 ml/min/1.73 sqM) Est GFR (CKD-EPI)NonAf (>60 ml/min/1.73 sqM) Glucose (74-99) mg/dL Plasma Lactic Acid Rito 1.7 (0.7-2.0) mmol/L Calcium (8.4-10.2) mg/dL Total Bilirubin (0.2-1.3) mg/dL AST (17-59) U/L ALT (4-49) U/L Alkaline Phosphatase (38-126) U/L Troponin I <0.012 (0.000-0.034) ng/mL Total Protein (6.3-8.2) g/dL Albumin (3.5-5.0) g/dL Influenza Type A RNA (Not Detectd) Influenza Type B (PCR) (Not Detectd) 04/26/19 12:29 EKG shows sinus rhythm with PA cc, a barrier conduction. Otherwise normal EKG. (Tiffany Perry) - Radiology Data Chest x-ray is negative for any acute critical me process. (Tiffany Perry) Disposition Is patient prescribed a controlled substance at d/c from ED?: No Time of Disposition: 14:33 <Tiffany Perry - Last Filed: 04/26/19 14:31> <Pablo Maya - Last Filed: 04/26/19 14:48> Clinical Impression: Acute exacerbation of chronic obstructive pulmonary disease Disposition: ADMITTED IP TO THIS HOSP Condition: Good Referrals: Bear Arias MD [Primary Care Provider] - 1-2 days
[2019-04-26] MEDS ORDERED: ACETAMINOPHEN TAB 500 MG TAB PO STA (13:33)
[2019-04-26] MEDS ORDERED: AZITHROMYCIN 500 MG TAB PO STA (13:36)
[2019-04-26] MEDS: guaiFENesin-Coden 100-10MG/5ML 10 ML CUP PO PRN ×3 (15:55→23:57)
[2019-04-26] MEDS: IPRATROPIUM-ALBUTEROL 3 ML NEB INHALATION PRN ×4 (18:23→23:57)
[2019-04-26] MEDS: methylPREDNISolone SOD SUCCI 125 MG/2 ML VIAL IV SCH ×2 (18:38→23:17)
[2019-04-26] MEDS: guaiFENesin 600 MG TABLET.ER PO SCH (22:07)
[2019-04-26] MEDS ORDERED: ALBUTEROL INHALER 60 PUFF/8 GM INHALER INHALATION PRN (22:26)
[2019-04-26] MEDS ORDERED: ALBUTEROL NEBULIZED 2.5 MG/3 ML INHALATION PRN (22:26)
[2019-04-26] MEDS ORDERED: FAMOTIDINE 20 MG PO PRN (22:26)
[2019-04-26] MEDS ORDERED: ATORVASTATIN 40 MG TAB PO STA (23:05)
[2019-04-26] MEDS ORDERED: MONTELUKAST 10 MG TAB PO STA (23:05)
[2019-04-26] MEDS: Acetaminophen-Codeine 300-30mg TAB PO PRN (23:18)
[2019-04-26] MEDS: guaiFENesin-DM 600/30MG 1 EACH TAB.ER.12H PO SCH (23:57)
[2019-04-26] MEDS: HEPARIN SODIUM,PORCINE 5,000 UNIT/ML 1 ML VIAL SQ SCH ×2 (23:57→23:59)
[2019-04-27] MEDS: IPRATROPIUM-ALBUTEROL 3 ML NEB INHALATION PRN (05:02)
[2019-04-27] MEDS: Acetaminophen-Codeine 300-30mg TAB PO PRN ×3 (05:06→19:16)
[2019-04-27] MEDS: guaiFENesin-Coden 100-10MG/5ML 10 ML CUP PO PRN ×3 (05:06→19:16)
[2019-04-27] MEDS: methylPREDNISolone SOD SUCCI 125 MG/2 ML VIAL IV SCH ×4 (06:27→23:34)
[2019-04-27] MEDS ORDERED: IPRATROPIUM 0.5 MG/2.5 ML NEBU INHALATION SCH (08:00)
[2019-04-27] MEDS ORDERED: FORMOTEROL FUMARATE 20 MCG/2 ML NEBU INHALATION SCH ×2 (08:00→20:00)
[2019-04-27] MEDS ORDERED: BUDESONIDE 0.5 MG/2 ML NEBU INHALATION SCH (08:00)
[2019-04-27] MEDS: IPRATROPIUM-ALBUTEROL 3 ML NEB INHALATION SCH ×4 (08:07→19:14)
[2019-04-27] MEDS: FORMOTEROL FUMARATE 20 MCG/2 ML NEBU INHALATION SCH ×2 (08:07→19:36)
[2019-04-27] MEDS: BUDESONIDE 1 MG/2 ML NEBU INHALATION SCH ×2 (08:09→19:14)
[2019-04-27] MEDS: FLUTICASONE 50MCG/SPRAY NASAL 16GM EA NOSTRIL SCH (08:31)
[2019-04-27] MEDS: guaiFENesin-DM 600/30MG 1 EACH TAB.ER.12H PO SCH ×2 (08:31→21:21)
[2019-04-27] MEDS: CLOPIDOGREL 75 MG TAB PO SCH (08:31)
[2019-04-27] MEDS: NICOTINE 14MG/24HR PATCH TRANSDERM SCH (08:31)
[2019-04-27] MEDS: METOPROLOL SUCCINATE (ER) 25 MG TAB.ER.24H PO SCH (08:31)
[2019-04-27] MEDS: FAMOTIDINE 20 MG TAB PO SCH (08:31)
[2019-04-27] MEDS: guaiFENesin 600 MG TABLET.ER PO SCH ×2 (08:31→21:12)
[2019-04-27] MEDS: ASPIRIN 81 MG PO SCH (08:31)
[2019-04-27] MEDS: HEPARIN SODIUM,PORCINE 5,000 UNIT/ML 1 ML VIAL SQ SCH ×3 (08:32→21:21)
--- NOTE | 2019-04-27 11:00 | P.HPIM ---
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 on 04/26/2019 continue to have severe hypoxia with pulse ox running in the low 80 inspiratory expiratory wheezes and copious amount of secretion and cough productive phlegm with mild hemoptysis. Patient was started on updraft, O2, large dose of steroid IV consult pulmonary start patient on antibiotic as well and admit patient to the hospital with above problem. Review of Systems CONSTITUTIONAL: Well-developed, looks much older than his age, in acute respiratory failure. EYES: No icterus sclerae, no conjunctivitis. EARS, NOSE, MOUTH, THROAT, and FACE: No sore throat, lymphadenopathy, carotid bruits or deformity. RESPIRATORY: Positive shortness of breath cough wheezes and secretion with hemoptysis. CARDIOVASCULAR: Positive PND orthopnea palpitation no angina. GASTROINTESTINAL: No Abd pain, Nausea or vomiting, no Diarrhea or constipation, No GI Bleed, no distention or masses. GENITOURINARY: Negative for Hematuria or UTI, no kidney stones. INTEGUMENT/BREAST: Negative for any muscular injury with mild osteoarthritis.. HEMATOLOGIC/LYMPHATIC: Negative for bleed or purpura. MUSCULOSKELTAL: Negative for Myalgia or arthralgia. NEURLOGICAL: No LOC, Sz or syncope, blurred vision dizziness or abnormality.. BEHAVIORAL/PSYCH: Negative. ENDOCRINE: Negative. Past Medical History Past Medical History: Coronary Artery Disease (CAD), COPD, Myocardial Infarction ([place]) Additional Past Medical History / Comment(s): Pt states he has hx of 3 respiratory arrests and was vented, generalized arthritis, Last Myocardial Infarction Date:: History of Any Multi-Drug Resistant Organisms: None Reported Past Surgical History: Adenoidectomy, Heart Catheterization With Stent, Hernia Repair, Joint Replacement, Orthopedic Surgery, Tonsillectomy Additional Past Surgical History / Comment(s): R inguinal hernia repair, L rotator cuff repair, bialteral total knee arthroplasties, R shoulder spur removal, teeth extracted, colonoscopy-normal. third hernia repair, left side Past Anesthesia/Blood Transfusion Reactions: No Reported Reaction Date of Last Stent Placement:: 2018 Past Psychological History: No Psychological Hx Reported Additional Psychological History / Comment(s): Pt states he has been living in his truck since September 2018. He uses no assistive devices. Smoking Status: Former smoker Past Alcohol Use History: None Reported Additional Past Alcohol Use History / Comment(s): patient quit smoking in 12/2018. He uses marijuana (edilbel) daily for pain. He is recovering alcoholic and he drinks alcohol rarely at this point and his last intake was December 2018. He has history of illicit drug use including Phen-Fen a means, LSD, cocaine, heroin and quit all of this 9 years ago. 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 Past Drug Use History: Marijuana Additional Drug Use History / Comment(s): He states in the past he has used marijuana, heroin, crystal meth, cocaine and crack but none of those drugs for about 9 yrs. - Past Family History Father Family Medical History: Cancer Additional Family Medical History / Comment(s): Father of lung cancer at the age of 62. He was a smoker. Mother Family Medical History: Diabetes Mellitus, Hypertension Additional Family Medical History / Comment(s): Mother at age 78 from brainstem cancer. Brother(s) Additional Family Medical History / Comment(s): Patient's 1 brother with history of AAA. Patient has 4 sisters and he does not know any of their medical history. Patient's 1 son and 1 daughter living. He had one daughter that at 7 weeks old from a congenital heart. Medications and Allergies Home Medications Medication Instructions Recorded Confirmed Type Albuterol Sulfate [Ventolin HFA] 2 puff INHALATION RT-Q6H PRN 09/07/14 04/26/19 History Albuterol Nebulized [Ventolin 2.5 mg INHALATION RT-Q4H PRN 03/03/16 04/26/19 History Nebulized] Arformoterol Tartrate [Brovana] 15 mcg INHALATION RT-BID 03/03/16 04/26/19 History Budesonide [Pulmicort] 0.5 mg INHALATION RT-BID 03/03/16 04/26/19 History Ipratropium Nebulized [Atrovent 0.5 mg INHALATION RT-BID 03/23/17 04/26/19 History Nebulized 0.2 MG/ML] Clopidogrel Bisulfate [Plavix] 75 mg PO DAILY #90 tab 12/30/18 04/26/19 Rx Aspirin EC [Ecotrin Low Dose] 81 mg PO DAILY 04/01/19 04/26/19 History Metoprolol Succinate (ER) [Toprol 25 mg PO DAILY 04/01/19 04/26/19 History XL] Atorvastatin [Lipitor] 40 mg PO HS 04/07/19 04/26/19 History Fluticasone Nasal [place] [Flonase 2 spray EA NOSTRIL DAILY #1 device 04/15/19 04/26/19 Rx Nasal [place]] Montelukast [Singulair] 10 mg PO HS #30 tab 04/15/19 04/26/19 Rx Famotidine [Pepcid AC] 20 mg PO DAILY PRN 04/26/19 04/26/19 History guaiFENesin-DM 600/30MG [Mucinex 1 tab PO Q12H 04/26/19 04/26/19 History Dm] predniSONE See Taper PO DIRECTED 04/26/19 04/26/19 History Allergies Allergy/AdvReac Type Severity Reaction Status Date / Time levofloxacin [From [facility]] AdvReac Nausea & Verified 04/26/19 16:11 Vomiting Physical Exam Vitals: Vital Signs Temp Pulse Resp BP Pulse Ox 04/26/19 21:03 118 H 18 04/26/19 20:49 117 H 18 04/26/19 18:43 120 H 04/26/19 18:42 114 H 24 121/73 97 04/26/19 18:20 120 H 04/26/19 14:43 79 28 H 110/64 96 04/26/19 13:49 96 04/26/19 13:32 104 H 28 H 97 04/26/19 13:28 92 04/26/19 13:16 94 04/26/19 12:23 98 04/26/19 12:22 104 H 20 97 04/26/19 12:10 90 04/26/19 12:00 98 04/26/19 10:36 98 F 105 H 20 123/83 96 Intake and Output 04/26/19 04/26/19 04/27/19 14:59 22:59 06:59 Other: Weight 88.451 kg 88.451 kg General Appearance: Alert, cooperative, in mild respiratory distress appears older than his age.. Neck HEENT: Supple, no lymphadenopathy, no thyroid enlargement, no carotid bruits. Lungs: Decreased Bilaterally with Fine Rhonchi Positive Crackles in the Bases Bilaterally Positive Mild Inspiratory Expiratory Wheezes. Chest Wall: Decrease expansion with deep inspiration no tenderness and no deformity was found on exam, no costochondral pain or discomfort. Heart: Regular rate and rhythm, S1, S2 positive S3 no murmur no JVD. Back: Symmetric, no curvature, ROM normal, no CVA tenderness. Abdomen: Soft, non-tender, bowel sounds active all four quadrants, no masses, no organomegaly. Extremities: Extremities normal, atraumatic, no cyanosis or edema. Pulses: 2+ and symmetric. Skin: Skin color, texture, tugor normal, no rashes or lesions. Neurologic: Alert oriented x3 cranial nerves II through XII intact, no motor deficit, no abnormal balance or gait. Results CBC & Chem 7: 04/26/19 11:27 04/26/19 11:27 Labs: Abnormal Lab Results - Last 24 Hours (Table) 04/26/19 04/26/19 Range/Units 11:27 11:27 WBC 10.8 H (3.8-10.6) k/uL Neutrophils # 9.2 H (1.3-7.7) k/uL Lymphocytes # 0.9 L (1.0-4.8) k/uL Glucose 144 H (74-99) mg/dL Total Bilirubin 1.7 H (0.2-1.3) mg/dL Thrombosis Risk Factor Assmnt - DVT/VTE Prophylaxis DVT/VTE Prophylaxis: Pharmacologic Prophylaxis ordered, Mechanical Prophylaxis ordered - Choose All That Apply Any of the Below Risk Factors Present?: Yes Each Factor Represents 1 point: Abnormal pulmonary function (COPD), Age 41-60 years Other Risk Factors: No Other congenital or acquired thrombophilia - If yes, enter type in comment: No Thrombosis Risk Factor Assessment Total Risk Factor Score: 2 Thrombosis Risk Factor Assessment Level: Low Risk Assessment and Plan Plan: 1 acute respiratory failure: Combination of COPD exacerbation along with purulent tracheal bronchitis mild fluid overload, patient will be hospitalized continue O2 continue updraft treatment and steroid. 2 COPD excessive patient: Patient was started on Solu-Medrol 60 mg every 6 along with DuoNeb and Pulmicort who consult pulmonary. 3 purulent tracheal bronchitis: . most likely hospital-acquired will continue azithromycin for atypical and add Rocephin for now. 4 chronic smoking: Patient will continue on nicotine patch 14 mg daily. 5 hypertension: Continue patient on Toprol-XL 25 mg a day. 6 hyperlipidemia: Remain on atorvastatin 40 mg a day. 7 atherosclerotic heart disease: Post PCI and stent placement patient seen cardiology still on secondary prevention with beta octaviano do well antiplatelet agent along with atorvastatin. 8 BPH: Watch for any urinary retention. 9 GI prophylaxis: Patient be on Pepcid 20 mg twice a day. 10 DVT prophylaxis: Patient will be on heparin 5000 units subcutaneous twice a day. CODE STATUS: DO NOT RESUSCITATE. Admit patient to inpatient status for more than 2 night stay.
[2019-04-27 12:18] LABS: Glucose,Whole Blood 211 mg/dL (75-99)
[2019-04-27] MEDS: INSULIN ASPART (NovoLOG) 100 UNIT/ML VIAL SQ SCH ×3 (12:35→21:04)
[2019-04-27] MEDS: AZITHROMYCIN 500 MG TAB PO SCH (14:38)
--- NOTE | 2019-04-27 14:51 | P.PN ---
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 Patient was started on updraft, O2, large dose of steroid IV consult pulmonary start patient on antibiotic as well and admit patient to the hospital with above problem. 04/27: Patient is seen today on the MedSurg floor. He states he's coughed up a little bit of blood. Dr. Hudson is on consult. Pulmicort will be increased 1 mg twice daily. Patient is currently on DuoNeb treatments 4 times daily and as needed. Nicotine patch has been added and NovoLog. Patient states he has trouble covering or pain for smoking cessation medications including nicotine. apartment maintenance manager will use [employer] fund at the time of discharge to cover nicotine patch for the patient. Patient is afebrile, heart rate 110, blood pressure 128/75, pulse ox 94% on room air. Review of Systems CONSTITUTIONAL: Well-developed, looks much older than his age, in acute respiratory failure. EYES: No icterus sclerae, no conjunctivitis. EARS, NOSE, MOUTH, THROAT, and FACE: No sore throat, lymphadenopathy, carotid bruits or deformity. RESPIRATORY: Positive shortness of breath , reports cough wheezes and secretion with hemoptysis. CARDIOVASCULAR: Positive PND orthopnea palpitation no angina. GASTROINTESTINAL: No Abd pain, Nausea or vomiting, no Diarrhea or constipation, No GI Bleed, no distention or masses. GENITOURINARY: Negative for Hematuria or UTI, no kidney stones. INTEGUMENT/BREAST: Negative for any muscular injury with mild osteoarthritis.. HEMATOLOGIC/LYMPHATIC: Negative for bleed or purpura. MUSCULOSKELTAL: Negative for Myalgia or arthralgia. NEURLOGICAL: No LOC, Sz or syncope, blurred vision dizziness or abnormality.. BEHAVIORAL/PSYCH: Negative. ENDOCRINE: Negative. Objective - Vital Signs Vital signs: Vital Signs Temp 98.2 F 04/27/19 07:17 Pulse 111 H 04/27/19 07:17 Resp 24 04/27/19 07:17 BP 123/78 04/27/19 07:17 Pulse Ox 96 04/27/19 07:17 Intake & Output 04/26/19 04/27/19 04/27/19 18:59 06:59 18:59 Intake Total 520 Balance 520 Weight 88.451 kg 88.451 kg Intake: Oral 520 Other: Voiding Method Toilet # Voids 1 - Exam General Appearance: Alert, cooperative, in mild respiratory distress appears older than his age. Neck HEENT: Supple, no lymphadenopathy, no thyroid enlargement, no carotid bruits. Lungs: Decreased Bilaterally with Fine Rhonchi Positive Crackles in the Bases Bilaterally Positive Mild Inspiratory Expiratory Wheezes, congested cough. Chest Wall: Decrease expansion with deep inspiration no tenderness and no deformity was found on exam, no costochondral pain or discomfort. Heart: Regular rate and rhythm, S1, S2 positive S3 no murmur no JVD. Back: Symmetric, no curvature, ROM normal, no CVA tenderness. Abdomen: Soft, non-tender, bowel sounds active all four quadrants, no masses, no organomegaly. Extremities: Extremities normal, atraumatic, no cyanosis or edema. Pulses: 2+ and symmetric. Skin: Skin color, texture, tugor normal, no rashes or lesions. Neurologic: Alert oriented x3 cranial nerves II through XII intact, no motor deficit, no abnormal balance or gait. - Labs CBC & Chem 7: 04/26/19 11:27 04/26/19 11:27 Labs: Abnormal Lab Results - Last 24 Hours (Table) 04/26/19 04/26/19 Range/Units 11:27 11:27 WBC 10.8 H (3.8-10.6) k/uL Neutrophils # 9.2 H (1.3-7.7) k/uL Lymphocytes # 0.9 L (1.0-4.8) k/uL Glucose 144 H (74-99) mg/dL Total Bilirubin 1.7 H (0.2-1.3) mg/dL Assessment and Plan Plan: 1 acute respiratory failure secondary to COPD exacerbation along with purulent tracheal bronchitis mild fluid overload, patient will be hospitalized continue O2 continue updraft treatment and steroid. 2 COPD exacerbation: Patient was started on Solu-Medrol 60 mg every 6 along with DuoNeb and Pulmicort who consult pulmonary. 3 purulent tracheal bronchitis: . most likely hospital-acquired will continue azithromycin for atypical and add Rocephin for now. 4 chronic smoking: Patient will continue on nicotine patch 14 mg daily. 5 hypertension: Continue patient on Toprol-XL 25 mg a day. 6 hyperlipidemia: Remain on atorvastatin 40 mg a day. 7 atherosclerotic heart disease: Post PCI and stent placement patient seen cardiology still on secondary prevention with beta octaviano do well antiplatelet agent along with atorvastatin. 8 BPH: Watch for any urinary retention. 9 GI prophylaxis: Patient be on Pepcid 20 mg twice a day. 10 DVT prophylaxis: Patient will be on heparin 5000 units subcutaneous twice a d ay. CODE STATUS: DO NOT RESUSCITATE. Discharge plan: home Impression and plan of care have been directed as dictated by the signing physician. Daysi Nunn nurse practitioner acting as scribe for signing physician.
--- NOTE | 2019-04-27 15:33 | P.CNPUL ---
History of Present Illness Consult date: 04/27/19 Reason for consult: dyspnea, cough, COPD, hypoxemia Chief complaint: Cough shortness of breath History of present illness: This is a 58-year-old with extensive history of smoking and nicotine abuse has been recently discharged from the hospital a few weeks ago for COPD exacerbation patient off note that did not follow up and developed problems associated with cough congestion or shortness of breath continued to smoke came into the hospital has been admitted into the hospital, his chest x-ray does not reveal any active pulmonary process, but does have bilateral wheezing Review of Systems All systems: negative Past Medical History Past Medical History: Coronary Artery Disease (CAD), COPD, Myocardial Infarction ([place]) Additional Past Medical History / Comment(s): Pt states he has hx of 3 respiratory arrests and was vented, generalized arthritis, Last Myocardial Infarction Date:: History of Any Multi-Drug Resistant Organisms: None Reported Past Surgical History: Adenoidectomy, Heart Catheterization With Stent, Hernia Repair, Joint Replacement, Orthopedic Surgery, Tonsillectomy Additional Past Surgical History / Comment(s): R inguinal hernia repair, L rotator cuff repair, bialteral total knee arthroplasties, R shoulder spur removal, teeth extracted, colonoscopy-normal. third hernia repair, left side Past Anesthesia/Blood Transfusion Reactions: No Reported Reaction Date of Last Stent Placement:: 2018 Past Psychological History: No Psychological Hx Reported Additional Psychological History / Comment(s): Pt states he has been living in his truck since September 2018. He uses no assistive devices. Smoking Status: Former smoker Past Alcohol Use History: None Reported Additional Past Alcohol Use History / Comment(s): patient quit smoking in 12/2018. He uses marijuana (edilbel) daily for pain. He is recovering alcoho lic and he drinks alcohol rarely at this point and his last intake was December 2018. He has history of illicit drug use including Phen-Fen a means, LSD, cocaine, heroin and quit all of this 9 years ago. 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 Past Drug Use History: Marijuana Additional Drug Use History / Comment(s): He states in the past he has used marijuana, heroin, crystal meth, cocaine and crack but none of those drugs for about 9 yrs. - Past Family History Father Family Medical History: Cancer Additional Family Medical History / Comment(s): Father of lung cancer at the age of 62. He was a smoker. Mother Family Medical History: Diabetes Mellitus, Hypertension Additional Family Medical History / Comment(s): Mother at age 78 from brainstem cancer. Brother(s) Additional Family Medical History / Comment(s): Patient's 1 brother with history of AAA. Patient has 4 sisters and he does not know any of their medical history. Patient's 1 son and 1 daughter living. He had one daughter that at 7 weeks old from a congenital heart. Medications and Allergies Home Medications Medication Instructions Recorded Confirmed Type Albuterol Sulfate [Ventolin HFA] 2 puff INHALATION RT-Q6H PRN 09/07/14 04/26/19 History Albuterol Nebulized [Ventolin 2.5 mg INHALATION RT-Q4H PRN 03/03/16 04/26/19 H istory Nebulized] Arformoterol Tartrate [Brovana] 15 mcg INHALATION RT-BID 03/03/16 04/26/19 History Budesonide [Pulmicort] 0.5 mg INHALATION RT-BID 03/03/16 04/26/19 History Ipratropium Nebulized [Atrovent 0.5 mg INHALATION RT-BID 03/23/17 04/26/19 History Nebulized 0.2 MG/ML] Clopidogrel Bisulfate [Plavix] 75 mg PO DAILY #90 tab 12/30/18 04/26/19 Rx Aspirin EC [Ecotrin Low Dose] 81 mg PO DAILY 04/01/19 04/26/19 History Metoprolol Succinate (ER) [Toprol 25 mg PO DAILY 04/01/19 04/26/19 History XL] Atorvastatin [Lipitor] 40 mg PO HS 04/07/19 04/26/19 History Fluticasone Nasal [place] [Flonase 2 spray EA NOSTRIL DAILY #1 device 04/15/19 04/26/19 Rx Nasal [place]] Montelukast [Singulair] 10 mg PO HS #30 tab 04/15/19 04/26/19 Rx Famotidine [Pepcid AC] 20 mg PO DAILY PRN 04/26/19 04/26/19 History guaiFENesin-DM 600/30MG [Mucinex 1 tab PO Q12H 04/26/19 04/26/19 History Dm] predniSONE See Taper PO DIRECTED 04/26/19 04/26/19 History Allergies Allergy/AdvReac Type Severity Reaction Status Date / Time levofloxacin [From [facility]] AdvReac Nausea & Verified 04/26/19 16:11 Vomiting Physical Exam Vitals: Vital Signs Temp Pulse Pulse Resp BP BP BP 04/27/19 11:43 97.8 F 112 H 28 H 128/75 04/27/19 11:38 04/27/19 11:19 110 H 04/27/19 11:04 108 H 04/27/19 08:33 110 H 04/27/19 08:21 110 H 04/27/19 08:20 110 H 04/27/19 08:09 107 H 04/27/19 07:54 111 H 04/27/19 07:17 98.2 F 111 H 24 123/78 04/27/19 05:11 120 H 04/27/19 05:05 113 H 04/27/19 05:00 97.9 F 109 H 22 113/77 04/27/19 01:30 113 H 24 04/27/19 00:07 121 H 04/26/19 23:57 121 H 04/26/19 21:03 118 H 18 04/26/19 20:49 117 H 18 04/26/19 20:30 97.6 F 123 H 40 H 122/64 04/26/19 18:43 120 H 04/26/19 18:42 114 H 24 121/73 04/26/19 18:20 120 H Pulse Ox 04/27/19 11:43 94 L 04/27/19 11:38 95 04/27/19 11:19 04/27/19 11:04 04/27/19 08:33 04/27/19 08:21 04/27/19 08:20 04/27/19 08:09 95 04/27/19 07:54 04/27/19 07:17 96 04/27/19 05:11 04/27/19 05:05 04/27/19 05:00 95 04/27/19 01:30 94 L 04/27/19 00:07 04/26/19 23:57 04/26/19 21:03 04/26/19 20:49 04/26/19 20:30 96 04/26/19 18:43 04/26/19 18:42 97 04/26/19 18:20 Intake and Output 04/27/19 04/27/19 04/27/19 06:59 14:59 22:59 Intake Total 100 Balance 100 Intake: Oral 100 Other: Voiding Method Toilet # Voids 1 3 - Constitutional General appearance: average body habitus, disheveled, mild distress - EENT Eyes: EOMI, PERRLA ENT: normal oropharynx Ears: bilateral: normal - Neck Carotids: bilateral: upstroke normal Thyroid: bilateral: normal size - Respiratory Respiratory: bilateral: wheezing (Bilateral), negative: CTA, diminished, dullness, rales, rhonchi - Cardiovascular Rhythm: regular Heart sounds: normal: S1, S2 - Neurologic Neurologic: CNII-XII intact - Musculoskeletal Musculoskeletal: gait normal, generalized weakness, strength equal bilaterally - Psychiatric Psychiatric: A&O x's 3, appropriate affect, intact judgment & insight Results - Laboratory Findings CBC and BMP: 04/26/19 11:27 04/26/19 11:27 Abnormal lab findings: Abnormal Labs 04/26/19 04/26/19 04/27/19 11:27 11:27 12:16 WBC 10.8 H Neutrophils # 9.2 H Lymphocytes # 0.9 L Glucose 144 H POC Glucose (mg/dL) 211 H Total Bilirubin 1.7 H - Diagnostic Findings Chest x-ray: report reviewed, image reviewed (Finding as noted above) Assessment and Plan Assessment: Acute COPD exacerbation Acute hypoxic respiratory failure related to above Purulent tracheobronchitis Extensive history of smoking and nicotine use Coronary artery disease status post stent placement Dyslipidemia Hypertension hypertensive cardio vascular disease Plan: Antibiotics Breathing treatments Steroids Supplemental oxygen Increase activity as tolerated Smoking cessation counseling advised Time with Patient: Greater than 30
[2019-04-27 16:49] LABS: Glucose,Whole Blood 349 mg/dL (75-99)
[2019-04-27 21:02] LABS: Glucose,Whole Blood 124 mg/dL (75-99)
[2019-04-27] MEDS: ATORVASTATIN 40 MG TAB PO SCH (21:21)
[2019-04-27] MEDS: MONTELUKAST 10 MG TAB PO SCH (21:21)
[2019-04-28] MEDS: guaiFENesin-Coden 100-10MG/5ML 10 ML CUP PO PRN ×2 (05:13→12:25)
[2019-04-28] MEDS: Acetaminophen-Codeine 300-30mg TAB PO PRN ×2 (05:13→12:25)
[2019-04-28] MEDS: IPRATROPIUM-ALBUTEROL 3 ML NEB INHALATION PRN (05:18)
[2019-04-28] MEDS: methylPREDNISolone SOD SUCCI 125 MG/2 ML VIAL IV SCH ×4 (06:36→23:21)
[2019-04-28 06:59] LABS: Glucose,Whole Blood 178 mg/dL (75-99)
[2019-04-28] MEDS: HEPARIN SODIUM,PORCINE 5,000 UNIT/ML 1 ML VIAL SQ SCH ×3 (06:59→23:21)
[2019-04-28] MEDS: INSULIN ASPART (NovoLOG) 100 UNIT/ML VIAL SQ SCH ×4 (07:04→21:22)
[2019-04-28] MEDS: FORMOTEROL FUMARATE 20 MCG/2 ML NEBU INHALATION SCH ×2 (07:08→19:16)
[2019-04-28] MEDS: BUDESONIDE 1 MG/2 ML NEBU INHALATION SCH ×2 (07:08→19:16)
[2019-04-28] MEDS: IPRATROPIUM-ALBUTEROL 3 ML NEB INHALATION SCH ×4 (07:08→19:16)
[2019-04-28] MEDS: ASPIRIN 81 MG PO SCH (09:12)
[2019-04-28] MEDS: CLOPIDOGREL 75 MG TAB PO SCH (09:13)
[2019-04-28] MEDS: FLUTICASONE 50MCG/SPRAY NASAL 16GM EA NOSTRIL SCH (09:14)
[2019-04-28] MEDS: FAMOTIDINE 20 MG TAB PO SCH ×2 (09:14→20:02)
[2019-04-28] MEDS: NICOTINE 14MG/24HR PATCH TRANSDERM SCH (09:15)
[2019-04-28] MEDS: METOPROLOL SUCCINATE (ER) 25 MG TAB.ER.24H PO SCH (09:22)
[2019-04-28] MEDS: guaiFENesin-DM 600/30MG 1 EACH TAB.ER.12H PO SCH ×2 (10:12→20:02)
--- NOTE | 2019-04-28 10:52 | P.PN ---
Subjective Progress Note Date: 04/28/19 Principal diagnosis: Acute COPD exacerbation Acute hypoxic respiratory failure related to above Purulent tracheobronchitis Extensive history of smoking and nicotine use Coronary artery disease status post stent placement Dyslipidemia Hypertension hypertensive cardio vascular disease 04/28/2019, patient seen eval examined during the rounds labs reviewed medications reviewed still of ongoing cough congestion and wheezing cough is mostly productive , sputum is blood tinged and due to severe coughing likely related to inflammation the lung patient had a recent computed tomography scan of the chest has been done prior admit, continue to monitor closely on antibiotics steroids likely it will subside as inflammation gets better This is a 58-year-old with extensive history of smoking and nicotine abuse has been recently discharged from the hospital a few weeks ago for COPD exacerbation patient off note that did not follow up and developed problems associated with c ough congestion or shortness of breath continued to smoke came into the hospital has been admitted into the hospital, his chest x-ray does not reveal any active pulmonary process, but does have bilateral wheezing Objective - Vital Signs Vital signs: Vital Signs Temp 98.4 F 04/28/19 07:00 Pulse 112 H 04/28/19 10:25 Resp 18 04/28/19 07:31 BP 123/73 04/28/19 10:25 Pulse Ox 93 L 04/28/19 07:08 Intake & Output 04/27/19 04/28/19 04/28/19 18:59 06:59 18:59 Intake Total 540 Balance 540 Intake: Oral 540 Other: Voiding Method Toilet Toilet Toilet # Voids 3 2 - Exam - Constitutional General appearance: average body habitus, disheveled, mild distress - EENT Eyes: EOMI, PERRLA ENT: normal oropharynx Ears: bilateral: normal - Neck Carotids: bilateral: upstroke normal Thyroid: bilateral: normal size - Respiratory Respiratory: bilateral: wheezing (Bilateral), negative: CTA, diminished, dullness, rales, rhonchi - Cardiovascular Rhythm: regular Heart sounds: normal: S1, S2 - Neurologic Neurologic: CNII-XII intact - Musculoskeletal Musculoskeletal: gait normal, generalized weakness, strength equal bilaterally - Psychiatric Psychiatric: A&O x's 3, appropriate affect, intact judgment & insight - Labs CBC & Chem 7: 04/26/19 11:27 04/26/19 11:27 Labs: Abnormal Lab Results - Last 24 Hours (Table) 04/27/19 04/27/19 04/27/19 Range/Units 12:16 16:47 21:00 POC Glucose (mg/dL) 211 H 349 H 124 H (75-99) mg/dL 04/28/19 Range/Units 06:55 POC Glucose (mg/dL) 178 H (75-99) mg/dL Microbiology - Last 24 Hours (Table) 04/26/19 11:34 Blood Culture - Preliminary Blood No Growth after 24 hours Assessment and Plan Assessment: Acute COPD exacerbation Acute hypoxic respiratory failure related to above Purulent tracheobronchitis Extensive history of smoking and nicotine use Coronary artery disease status post stent placement Dyslipidemia Hypertension hypertensive cardio vascular disease Plan: Antibiotics Breathing treatments Steroids Supplemental oxygen Increase activity as tolerated Smoking cessation counseling advised If hemoptysis does not resolve we'll consider bronchoscopy Time with Patient: Greater than 30
[2019-04-28] MEDS: AZITHROMYCIN 500 MG TAB PO SCH (11:06)
[2019-04-28 11:41] LABS: Glucose,Whole Blood 212 mg/dL (75-99)
--- NOTE | 2019-04-28 14:17 | P.PN ---
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 Patient was started on updraft, O2, large dose of steroid IV consult pulmonary start patient on antibiotic as well and admit patient to the hospital with above problem. 04/27: Patient is seen today on the MedSurg floor. He states he's coughed up a little bit of blood. Dr. Hudson is on consult. Pulmicort will be increased 1 mg twice daily. Patient is currently on DuoNeb treatments 4 times daily and as needed. Nicotine patch has been added and NovoLog. Patient states he has trouble covering or pain for smoking cessation medications including nicotine. branch services manager will use [employer] at the time of discharge to cover nicotine patch for the patient. Patient is afebrile, heart rate 110, blood pressure 128/75, pulse ox 94% on room air. 04/28: Patient continues to have cough, difficulty breathing and wheezing. Patient has sputum production with blood tinged. Solu-Medrol is at 60 mg IV every 6 hours and will remain there. Patient has been afebrile, heart rate 96, blood pressure 117/96, pulse ox 94% on room air. Blood sugars are elevated secondary to steroid use. Patient is followed by Dr. Hudson from pulmonary medicine. No plan for bronchoscopy. Anticipate patient will be here most of the weekend. Review of Systems CONSTITUTIONAL: Well-developed, looks much older than his age, denies fever, denies chills. EYES: No icterus sclerae, no conjunctivitis. EARS, NOSE, MOUTH, THROAT, and FACE: No sore throat, lymphadenopathy, carotid bruits or deformity. RESPIRATORY: Positive shortness of breath , reports cough wheezes and secretion with hemoptysis. CARDIOVASCULAR: Positive PND orthopnea palpitation no angina. GASTROINTESTINAL: No Abd pain, Nausea or vomiting, no Diarrhea or constipation, No GI Bleed, no distention or masses. GENITOURINARY: Negative for Hematuria or UTI, no kidney stones. INTEGUMENT/BREAST: Negative for any muscular injury with mild osteoarthritis. HEMATOLOGIC/LYMPHATIC: Negative for bleed or purpura. MUSCULOSKELTAL: Negative for Myalgia or arthralgia. NEURLOGICAL: No LOC, Sz or syncope, blurred vision dizziness or abnormality. BEHAVIORAL/PSYCH: Negative. ENDOCRINE: Negative. Objective - Vital Signs Vital signs: Vital Signs Temp 98.4 F 04/28/19 07:00 Pulse 111 H 04/28/19 07:31 Resp 18 04/28/19 07:31 BP 97/65 04/28/19 07:00 Pulse Ox 93 L 04/28/19 07:08 Intake & Output 04/27/19 04/28/19 04/28/19 18:59 06:59 18:59 Intake Total 540 Balance 540 Intake: Oral 540 Other: Voiding Method Toilet Toilet Toilet # Voids 3 2 - Exam General Appearance: Alert, cooperative, in mild respiratory distress appears older than his age. Neck HEENT: Supple, no lymphadenopathy, no thyroid enlargement, no carotid bruits. Lungs: Decreased Bilaterally with Fine Rhonchi Positive Crackles in the Bases Bilaterally Positive Expiratory Wheezes, congested cough. Chest Wall: Decrease expansion with deep inspiration no tenderness and no deformity was found on exam, no costochondral pain or discomfort. Heart: Regular rate and rhythm, S1, S2 positive S3 no murmur no JVD. Back: Symmetric, no curvature, ROM normal, no CVA tenderness. Abdomen: Soft, non-tender, bowel sounds active all four quadrants, no masses, no organomegaly. Extremities: Extremities normal, atraumatic, no cyanosis or edema. Pulses: 2+ and symmetric. Skin: Skin color, texture, tugor normal, no rashes or lesions. Neurologic: Alert oriented x3 cranial nerves II through XII intact, no motor deficit, no abnormal balance or gait. - Labs CBC & Chem 7: 04/26/19 11:27 04/26/19 11:27 Labs: Abnormal Lab Results - Last 24 Hours (Table) 04/27/19 04/27/19 04/27/19 Range/Units 12:16 16:47 21:00 POC Glucose (mg/dL) 211 H 349 H 124 H (75-99) mg/dL 04/28/19 Range/Units 06:55 POC Glucose (mg/dL) 178 H (75-99) mg/dL Microbiology - Last 24 Hours (Table) 04/26/19 11:34 Blood Culture - Preliminary Blood No Growth after 24 hours Assessment and Plan Plan: 1. Acute respiratory failure secondary to COPD exacerbation along with purulent tracheal bronchitis mild fluid overload, patient will be hospitalized continue O2 continue updraft treatment and steroid. 2. COPD exacerbation: Continue Solu-Medrol 60 mg every 6 hours, DuoNeb treatments 4 times daily and every 2 hours as needed, azithromycin and ceftriaxone, Perforomist twice daily, Robitussin before meals, Mucinex. Consult with Dr. Tristan rey. 3. Purulent tracheal bronchitis without signs of pneumonia. Continue azithromycin and Rocephin. 4. Tobacco use and dependence. Continue nicotine patch 14 mg daily. Prescription sent to pharmacy and case management associate to use [employer] funds to pay for nicotine patch. 5. Hypertension: Continue patient on Toprol-XL 25 mg a day. 6. Hyperlipidemia: Remain on atorvastatin 40 mg a day. 7. Coronary artery disease status post PCI and stent placement. Continue aspirin 81 mg daily, Lipitor 40 mg daily, Toprol-XL 25 mg daily. 8. Hyperglycemia secondary to steroids. 9. Possible asthma suspected, moderate persistent. Continue Singulair. 10. GI prophylaxis. Patient be on Pepcid 20 mg daily. 11. DVT prophylaxis. Continue heparin subcu. CODE STATUS: DO NOT RESUSCITATE. Discharge plan: home Impression and plan of care have been directed as dictated by the signing physician. Daysi Nunn nurse practitioner acting as scribe for signing physician.
[2019-04-28 16:44] LABS: Glucose,Whole Blood 98 mg/dL (75-99)
[2019-04-28] MEDS: MONTELUKAST 10 MG TAB PO SCH (20:02)
[2019-04-28] MEDS: ATORVASTATIN 40 MG TAB PO SCH (20:02)
[2019-04-28 20:56] LABS: Glucose,Whole Blood 140 mg/dL (75-99)
[2019-04-28] MEDS ORDERED: ONDANSETRON 4 MG/2 ML VIAL IVP PRN (23:10)
[2019-04-28] MEDS ORDERED: NITROGLYCERIN SL TABS 0.4 MG TAB SUBLINGUAL ONE (23:45)
[2019-04-29 00:28] LABS: INR 0.9 (<1.2); Prothrombin Time 9.6 sec (9.0-12.0)
[2019-04-29] MEDS: guaiFENesin-Coden 100-10MG/5ML 10 ML CUP PO PRN (00:28)
[2019-04-29] MEDS: Acetaminophen-Codeine 300-30mg TAB PO PRN ×2 (00:29→21:40)
[2019-04-29 00:30] LABS: Partial Thromboplastin Time 20.1 sec (22.0-30.0)
[2019-04-29] MEDS: METOPROLOL SUCCINATE (ER) 25 MG TAB.ER.24H PO SCH ×3 (00:34→21:41)
[2019-04-29] MEDS: SODIUM CHLORIDE 0.9% 1,000 ML IV SCH ×2 (00:36→12:28)
[2019-04-29 00:40] LABS: Creatine Kinase 346 U/L (55-170)
[2019-04-29 00:52] LABS: Creatine Kinase MB 2.5 ng/mL (0.0-2.4); Troponin I <0.012 ng/mL (0.000-0.034)
[2019-04-29] MEDS: IPRATROPIUM-ALBUTEROL 3 ML NEB INHALATION PRN ×2 (04:47→23:50)
[2019-04-29] MEDS: methylPREDNISolone SOD SUCCI 125 MG/2 ML VIAL IV SCH ×3 (06:05→17:17)
[2019-04-29 07:16] LABS: Glucose,Whole Blood 129 mg/dL (75-99)
[2019-04-29] MEDS: INSULIN ASPART (NovoLOG) 100 UNIT/ML VIAL SQ SCH ×4 (07:18→21:41)
[2019-04-29] MEDS: IPRATROPIUM-ALBUTEROL 3 ML NEB INHALATION SCH ×4 (08:06→19:35)
[2019-04-29] MEDS: BUDESONIDE 1 MG/2 ML NEBU INHALATION SCH ×2 (08:06→19:35)
[2019-04-29] MEDS: FORMOTEROL FUMARATE 20 MCG/2 ML NEBU INHALATION SCH ×2 (08:07→19:35)
[2019-04-29] MEDS: HEPARIN SODIUM,PORCINE 5,000 UNIT/ML 1 ML VIAL SQ SCH ×2 (09:00→13:15)
[2019-04-29] MEDS: NICOTINE 14MG/24HR PATCH TRANSDERM SCH (09:00)
[2019-04-29] MEDS: guaiFENesin-DM 600/30MG 1 EACH TAB.ER.12H PO SCH ×2 (09:01→21:41)
[2019-04-29] MEDS: CLOPIDOGREL 75 MG TAB PO SCH (09:01)
[2019-04-29] MEDS: ASPIRIN 81 MG PO SCH (09:01)
[2019-04-29] MEDS: FAMOTIDINE 20 MG TAB PO SCH (09:01)
[2019-04-29] MEDS: FLUTICASONE 50MCG/SPRAY NASAL 16GM EA NOSTRIL SCH (09:02)
[2019-04-29 11:51] LABS: Glucose,Whole Blood 148 mg/dL (75-99)
--- NOTE | 2019-04-29 11:54 | P.PN ---
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 Patient was started on updraft, O2, large dose of steroid IV consult pulmonary start patient on antibiotic as well and admit patient to the hospital with above problem. 04/27: Patient is seen today on the MedSurg floor. He states he's coughed up a little bit of blood. Dr. Hudson is on consult. Pulmicort will be increased 1 mg twice daily. Patient is currently on DuoNeb treatments 4 times daily and as needed. Nicotine patch has been added and NovoLog. Patient states he has trouble covering or pain for smoking cessation medications including nicotine. assistant facility manager will use [employer] at the time of discharge to cover nicotine patch for the patient. Patient is afebrile, heart rate 110, blood pressure 128/75, pulse ox 94% on room air. 04/28: Patient continues to have cough, difficulty breathing and wheezing. Patient has sputum production with blood tinged. Solu-Medrol is at 60 mg IV every 6 hours and will remain there. Patient has been afebrile, heart rate 96, blood pressure 117/96, pulse ox 94% on room air. Blood sugars are elevated secondary to steroid use. Patient is followed by Dr. Hudson from pulmonary medicine. No plan for bronchoscopy. Anticipate patient will be here most of the weekend. 04/29: Patient experience chest pain overnight. Patient states that he started to have cough and developed some heartburn. Patient had a sharp stabbing chest pain to the mid sternum radiating to the back. He continues to have tachycardia 120s. Patient continues to have heartburn however the chest pain has subsided. Troponin was negative. Cardiology consult. Patient continues to be on Solu-Me drol 60 mg every 6 hours. His breathing has improved until he begins coughing. His appetite has decreased. Patient denies any epigastric discomfort. Review of systems CONSTITUTIONAL: Well-developed, looks much older than his age, denies fever, denies chills. EYES: No icterus sclerae, no conjunctivitis. EARS, NOSE, MOUTH, THROAT, and FACE: No sore throat, lymphadenopathy, carotid bruits or deformity. RESPIRATORY: Positive shortness of breath , reports cough wheezes and secretion with hemoptysis. CARDIOVASCULAR: Positive PND orthopnea palpitation positive angina. GASTROINTESTINAL: No Abd pain, Nausea or vomiting, no Diarrhea or constipation, No GI Bleed, no distention or masses. Positive decreased appetite GENITOURINARY: Negative for Hematuria or UTI, no kidney stones. INTEGUMENT/BREAST: Negative for any muscular injury with mild osteoarthritis. HEMATOLOGIC/LYMPHATIC: Negative for bleed or purpura. MUSCULOSKELTAL: Negative for Myalgia or arthralgia. NEURLOGICAL: No LOC, Sz or syncope, blurred vision dizziness or abnormality. BEHAVIORAL/PSYCH: Ne Objective - Vital Signs Vital signs: Vital Signs Temp 98.0 F 04/29/19 05:15 Pulse 96 04/29/19 11:40 Resp 20 04/29/19 05:15 BP 120/76 04/29/19 05:15 Pulse Ox 96 04/29/19 05:15 Intake & Output 04/28/19 04/29/19 04/29/19 18:59 06:59 18:59 Other: Voiding Method Toilet Toilet # Voids 2 3 # Emeses 1 - Exam General Appearance: Alert, cooperative, no distress, appears stated age. Neck HEENT: Supple, no lymphadenopathy, no thyroid enlargement, no carotid bruits. Lungs: Decreased bilaterally with fine rhonchi positive crackles in the bases bilateral positive expiratory wheezes, congested cough Chest Wall: Decreased expansion with deep inspiration no tenderness and no deformity was found on exam, no costochondral pain or discomfort. Heart: Regular rate and rhythm, S1, S2 normal, no murmur, rub or gallop. Back: Symmetric, no curvature, ROM normal, no CVA tenderness. Abdomen: Soft, non-tender, no rebound or rigidity, no hepatosplenomegaly. Extremities: Extremities normal, atraumatic, no cyanosis or edema. Pulses: 2+ and symmetric. Skin: Skin color, texture, tugor normal, no rashes or lesions. Neurologic: Alert oriented x3 cranial nerves II through XII intact, no motor deficit, no abnormal balance or gait - Labs CBC & Chem 7: 04/26/19 11:27 04/26/19 11:27 Labs: Abnormal Lab Results - Last 24 Hours (Table) 04/28/19 04/29/19 04/29/19 Range/Units 20:54 00:00 00:00 APTT 20.1 L (22.0-30.0) sec POC Glucose (mg/dL) 140 H (75-99) mg/dL Total Creatine Kinase 346 H (55-170) U/L CK-MB (CK-2) 2.5 H (0.0-2.4) ng/mL 04/29/19 Range/Units 07:13 APTT (22.0-30.0) sec POC Glucose (mg/dL) 129 H (75-99) mg/dL Total Creatine Kinase (55-170) U/L CK-MB (CK-2) (0.0-2.4) ng/mL Microbiology - Last 24 Hours (Table) 04/26/19 11:34 Blood Culture - Preliminary Blood No Growth after 48 hours Assessment and Plan Plan: 1. Acute respiratory failure secondary to COPD exacerbation along with purulent tracheal bronchitis mild fluid overload, patient will be hospitalized continue O2 continue updraft treatment and steroid. 2. COPD exacerbation: Continue Solu-Medrol 60 mg every 6 hours, DuoNeb treatments 4 times daily and every 2 hours as needed, azithromycin and ceftriaxone, Perforomist twice daily, Robitussin before meals, Mucinex. Consult with Dr. Tristan rey. 3. Purulent tracheal bronchitis without signs of pneumonia. Continue azithromycin and Rocephin. 4. Tobacco use and dependence. Continue nicotine patch 14 mg daily. Prescription sent to pharmacy and keycase assembler to use [place] funds to pay for nicotine patch. 5. Chest pain/epigastric pain possibly related to steroid use. Nitroglycerin given with relief. Cardiology consult. DC Pepcid start IV Protonix 40 mg twice a day. Metoprolol increased to 25 mg twice a day 6. Hyperlipidemia: Remain on atorvastatin 40 mg a day. 7. Coronary artery disease status post PCI and stent placement. Continue aspirin 81 mg daily, Lipitor 40 mg daily, Toprol-XL 25 mg daily. 8. Hyperglycemia secondary to steroids. 9. Possible asthma suspected, moderate persistent. Continue Singulair. 10. Hypertension: Increase patient on Toprol-XL 25 mg a day twice a day. 11. GI prophylaxis. Protonix 40 mg twice a day 12. DVT prophylaxis. Continue heparin subcu. CODE STATUS: DO NOT RESUSCITATE. Discharge plan: home Impression and plan of care have been directed as dictated by the signing physician. Daysi Nunn nurse practitioner acting as scribe for signing physician.
[2019-04-29] MEDS: AZITHROMYCIN 500 MG TAB PO SCH (13:15)
[2019-04-29 16:35] LABS: Glucose,Whole Blood 192 mg/dL (75-99)
--- NOTE | 2019-04-29 17:07 | PN ---
PROGRESS NOTE DATE OF SERVICE: 04/29/2019 This patient has been hemodynamically stable. He continues to have some shortness of breath. On physical examination, his vitals are stable. He is afebrile. His chest reveals prolonged exhalation with expiratory wheeze. Cardiovascular system is in S1, S2. Abdomen is soft. There is no edema. Labs and medications were reviewed. IMPRESSION AT THIS TIME: 1. Asthma with chronic obstructive pulmonary disease with acute exacerbation. 2. Acute respiratory failure, in part due to hypoxemia. At this point in time, continue IV and aerosolized steroids. Continue bronchodilators. May benefit from a biologic as an outpatient for control of the asthmatic component of his symptomatology. He was counseled regarding his condition and this approach. MMODL / IJN: [id number] /
--- NOTE | 2019-04-29 19:13 | P.CRDCN ---
History of Present Illness Consult date: 04/29/19 History of present illness: This is a 58-year-old gentleman with history of coronary artery disease, status post stent placement of the right coronary artery. Patient also has history of COPD. He was admitted on fourth of this month to this hospital with increasing shortness of breath, cough and chest pain and was treated for exacerbation of COPD. Patient is readmitted to this hospital again with increasing shortness of breath. Last night patient had a bout of vomiting following that patient started having discomfort and burning in the epigastric area. Subsequently it became short and reminded him of the pain he had before the stent placement. This is the stented RCA, patient apparently had 2 other lesions. He was concerned about other lesions progressing. His EKG showed sinus tachycardia. Patient's 1 troponin is within normal limits. The pain apparently was relieved with one sublingual nitroglycerin. Hasn't had any recurrence of pain. We'll get on the troponin value. We'll monitor his clinical status. We'll may also get an echocardiogram. If patient has any recurrence of chest pain, we may have to consider for definitive diagnosis to rule out any progression of ischemic heart disease. He patient doesn't have any recurrence of chest pain. Patient could be managed with medications and be followed with Dr. Torres as an outpatient Review of Systems As per the chart Past Medical History Past Medical History: Coronary Artery Disease (CAD), COPD, Myocardial Infarction ([place]) Additional Past Medical History / Comment(s): Pt states he has hx of 3 respiratory arrests and was vented, generalized arthritis, Last Myocardial Infarction Date:: History of Any Multi-Drug Resistant Organisms: None Reported Past Surgical History: Adenoidectomy, Heart Catheterization With Stent, Hernia Repair, Joint Replacement, Orthopedic Surgery, Tonsillectomy Additional Past Surgical History / Comment(s): R inguinal hernia repair, L rotator cuff repair, bialteral total knee arthroplasties, R shoulder spur removal, teeth extracted, colonoscopy-normal. third hernia repair, left side Past Anesthesia/Blood Transfusion Reactions: No Reported Reaction Date of Last Stent Placement:: 2018 Past Psychological History: No Psychological Hx Reported Additional Psychological History / Comment(s): Pt states he has been living in his truck since September 2018. He uses no assistive devices. Smoking Status: Former smoker Past Alcohol Use History: None Reported Additional Past Alcohol Use History / Comment(s): patient quit smoking in 12/2018. He uses marijuana (edilbel) daily for pain. He is recovering alcoholic and he drinks alcohol rarely at this point and his last intake was December 2018. He has history of illicit drug use including Phen-Fen a means, LSD, cocaine, heroin and quit all of this 9 years ago. 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 Past Drug Use History: Marijuana Additional Drug Use History / Comment(s): He states in the past he has used marijuana, heroin, crystal meth, cocaine and crack but none of those drugs for about 9 yrs. - Past Family History Father Family Medical History: Cancer Additional Family Medical History / Comment(s): Father of lung cancer at the age of 62. He was a smoker. Mother Family Medical History: Diabetes Mellitus, Hypertension Additional Family Medical History / Comment(s): Mother at age 78 from brainstem cancer. Brother(s) Additional Family Medical History / Comment(s): Patient's 1 brother with history of AAA. Patient has 4 sisters and he does not know any of their medical history . Patient's 1 son and 1 daughter living. He had one daughter that at 7 weeks old from a congenital heart. Medications and Allergies Home Medications Medication Instructions Recorded Confirmed Type Albuterol Sulfate [Ventolin HFA] 2 puff INHALATION RT-Q6H PRN 09/07/14 04/26/19 History Albuterol Nebulized [Ventolin 2.5 mg INHALATION RT-Q4H PRN 03/03/16 04/26/19 History Nebulized] Arformoterol Tartrate [Brovana] 15 mcg INHALATION RT-BID 03/03/16 04/26/19 History Budesonide [Pulmicort] 0.5 mg INHALATION RT-BID 03/03/16 04/26/19 History Ipratropium Nebulized [Atrovent 0.5 mg INHALATION RT-BID 03/23/17 04/26/19 History Nebulized 0.2 MG/ML] Clopidogrel Bisulfate [Plavix] 75 mg PO DAILY #90 tab 12/30/18 04/26/19 Rx Aspirin EC [Ecotrin Low Dose] 81 mg PO DAILY 04/01/19 04/26/19 History Metoprolol Succinate (ER) [Toprol 25 mg PO DAILY 04/01/19 04/26/19 History XL] Atorvastatin [Lipitor] 40 mg PO HS 04/07/19 04/26/19 History Fluticasone Nasal [place] [Flonase 2 spray EA NOSTRIL DAILY #1 device 04/15/19 04/26/19 Rx Nasal [place]] Montelukast [Singulair] 10 mg PO HS #30 tab 04/15/19 04/26/19 Rx Famotidine [Pepcid AC] 20 mg PO DAILY PRN 04/26/19 04/26/19 History guaiFENesin-DM 600/30MG [Mucinex 1 tab PO Q12H 04/26/19 04/26/19 History Dm] predniSONE See Taper PO DIRECTED 04/26/19 04/26/19 History Nicotine 14Mg/24Hr Patch [Habitrol] 1 patch TRANSDERM DAILY #30 patch 04/28/19 Rx Allergies Allergy/AdvReac Type Severity Reaction Status Date / Time levofloxacin [From Levaquin] AdvReac Nausea & Verified 04/26/19 16:11 Vomiting Physical Exam Vitals: Vital Signs Temp Pulse Pulse Resp BP BP Pulse Ox 04/29/19 15:22 94 04/29/19 15:12 94 04/29/19 14:15 97.6 F 98 18 124/85 94 L 04/29/19 11:40 96 04/29/19 11:26 98 04/29/19 08:28 94 04/29/19 08:20 104 H 04/29/19 08:07 100 04/29/19 05:15 98.0 F 107 H 20 120/76 96 04/29/19 04:54 102 H 04/29/19 04:47 98 04/29/19 03:00 97.8 F 94 20 123/81 98 04/29/19 00:33 101 H 16 118/81 96 04/29/19 00:00 126 H 20 04/28/19 21:25 98.3 F 125 H 20 157/79 95 04/28/19 19:46 97.4 F L 114 H 134/102 98 04/28/19 19:44 110 H 04/28/19 19:30 108 H 04/28/19 19:16 110 H Intake and Output 04/29/19 04/29/19 04/29/19 06:59 14:59 22:59 Intake Total 540 240 Balance 540 240 Intake: Oral 540 240 Other: Voiding Method Toilet # Voids 3 2 1 GENERAL EXAM: Patient is alert and oriented and doesn't appear to be in any acute distress HEENT: Normocephalic. Normal reaction of pupils, equal size, normal range of extraocular motion. No erythema or exudates in the throat. NECK: No masses, no nuchal rigidity. CHEST: No chest wall deformity. LUNGS: Expiratory wheezes and rhonchi HEART: S1 and S2 normal with no audible mumurs or gallops. Regular rhythm, femorals equal on both sides.. ABDOMEN: No hepatosplenomegaly, normal bowel sounds, no guarding or rigidity. SKIN: No rashes CENTRAL NERVOUS SYSTEM: No focal deficits. EXTREMITIES: No cyanosis, clubbing or edema. Results 04/26/19 11:27 04/26/19 11:27 Cardiac Enzymes 04/29/19 Range/Units 00:00 CK-MB (CK-2) 2.5 H (0.0-2.4) ng/mL Troponin I <0.012 (0.000-0.034) ng/mL Coagulation 04/29/19 Range/Units 00:00 PT 9.6 (9.0-12.0) sec APTT 20.1 L (22.0-30.0) sec Current Medications Generic Name Dose Route Start Last Admin Trade Name Freq PRN Reason Stop Dose Admin Acetaminophen/Codeine Phosphate 1 each 04/26/19 22:30 04/29/19 00:29 Tylenol #3 PO 1 each Q4HR PRN Administration Pain Albuterol/Ipratropium 3 ml 04/27/19 07:12 04/29/19 04:47 Duoneb 0.5 Mg-3 Mg/3 Ml Soln INHALATION 3 ml RT-Q2H PRN Administration Shortness Of Breath Or Wheezing Albuterol/Ipratropium 3 ml 04/27/19 08:00 04/29/19 15:12 Duoneb 0.5 Mg-3 Mg/3 Ml Soln INHALATION 3 ml RT-QID PRASHANT Administration Aspirin 81 mg 04/27/19 09:00 04/29/19 09:01 Aspirin PO 81 mg DAILY PRASHANT Administration Atorvastatin Calcium 40 mg 04/27/19 21:00 04/28/19 20:02 Lipitor PO 40 mg HS PRASHANT Administration Azithromycin 500 mg 04/27/19 14:00 04/29/19 13:15 Zithromax PO 500 mg DAILY@1400 PRASHANT Administration Budesonide 1 mg 04/27/19 08:00 04/29/19 08:06 Pulmicort INHALATION 1 mg RT-BID PRASHANT Administration Clopidogrel Bisulfate 75 mg 04/27/19 09:00 04/29/19 09:01 Plavix PO 75 mg DAILY PRASHANT Administration Fluticasone Propionate 2 spray 04/27/19 09:00 04/29/19 09:02 Flonase Nasal [place] EA NOSTRIL 2 spray DAILY PRASHANT Administration Formoterol Fumarate 20 mcg 04/27/19 08:00 04/29/19 08:07 Perforomist INHALATION 20 mcg RT-BID PRASHANT Administration Guaifenesin/Codeine Phosphate 10 ml 04/26/19 14:40 04/29/19 00:28 Robitussin Ac PO 10 ml Q6H PRN Administration Cough Guaifenesin/Dextromethorphan 1 each 04/27/19 21:00 04/29/19 09:01 Mucinex Dm PO 1 each Q12HR PRASHANT Administration Heparin Sodium (Porcine) 5,000 unit 04/27/19 00:00 04/29/19 13:15 Heparin SQ Not Given Q8HR PRASHANT Ceftriaxone Sodium 1 gm/ 50 mls @ 100 mls/hr 04/27/19 11:15 04/29/19 09:01 Sodium Chloride IVPB 100 mls/hr Q24HR PRASHANT Administration Sodium Chloride 1,000 mls @ 75 mls/hr 04/29/19 00:15 04/29/19 12:28 Saline 0.9% IV 75 mls/hr .[id number] PRASHANT Administration Insulin Aspart 0 unit 04/27/19 12:30 04/29/19 17:20 Novolog SQ 5 unit ACHS PRASHANT Administration Protocol Methylprednisolone Sodium Succinate 60 mg 04/26/19 18:00 04/29/19 17:17 Solu-Medrol IV 60 mg Q6HR PRASHANT Administration Metoprolol Succinate 25 mg 04/29/19 00:15 04/29/19 09:00 Toprol Xl PO 25 mg BID PRASHANT Administration Montelukast Sodium 10 mg 04/27/19 21:00 04/28/19 20:02 Singulair PO 10 mg HS PRASHANT Administration Nicotine 1 patch 04/27/19 09:00 04/29/19 09:00 Habitrol 14mg/24hr Patch TRANSDERM 1 patch DAILY PRASHANT Administration Ondansetron HCl 4 mg 04/28/19 23:10 04/28/19 23:21 Zofran IVP 4 mg Q6HR PRN Administration Nausea And Vomiting Pantoprazole Sodium 40 mg 04/29/19 21:00 Protonix IVP BID PRASHANT Intake and Output 04/29/19 04/29/19 04/29/19 06:59 14:59 22:59 Intake Total 540 240 Balance 540 240 Intake: Oral 540 240 Other: Voiding Method Toilet # Voids 3 2 1 04/26/19 11:27 04/26/19 11:27 EKG Interpretations (text) Sinus rhythm and sinus tachycardia Assessment and Plan (1) Coronary artery disease Current Visit: Yes Status: Acute Code(s): I25.10 - ATHSCL HEART DISEASE OF [place] CORONARY ARTERY W/O ANG PCTRS SNOMED Code(s): 05610885 (2) Acute exacerbation of chronic obstructive pulmonary disease Current Visit: Yes Status: Acute Code(s): J44.1 - CHRONIC OBSTRUCTIVE PULMONARY DISEASE W (ACUTE) EXACERBATION SNOMED Code(s): 880081088 (3) Chest pain Current Visit: No Status: Acute Code(s): R07.9 - CHEST PAIN, UNSPECIFIED SNOMED Code(s): 61461007 Plan: Patient had one bout of chest pain relieved with nitroglycerin. EKG did not reveal any acute changes. Cardiac enzymes are negative. We'll add nitrates and continue to monitoring. If patient has recurrent of chest pain, may consider cardiac catheterization. Otherwise continue with medical therapy and have follow-up with Dr. Torres as an outpatient
[2019-04-29 20:39] LABS: Glucose,Whole Blood 152 mg/dL (75-99)
[2019-04-29] MEDS: ISOSORBIDE MONONITRATE ER 30 MG TAB.ER.24H PO SCH (21:40)
[2019-04-29] MEDS: ATORVASTATIN 40 MG TAB PO SCH (21:41)
[2019-04-29] MEDS: MONTELUKAST 10 MG TAB PO SCH (21:41)
[2019-04-29] MEDS: PANTOPRAZOLE 40 MG/10 ML VIAL IVP SCH (21:42)
[2019-04-30] MEDS: methylPREDNISolone SOD SUCCI 125 MG/2 ML VIAL IV SCH ×4 (00:39→17:40)
[2019-04-30] MEDS: HEPARIN SODIUM,PORCINE 5,000 UNIT/ML 1 ML VIAL SQ SCH ×3 (00:39→13:46)
[2019-04-30] MEDS: SODIUM CHLORIDE 0.9% 1,000 ML IV SCH ×2 (05:13→17:40)
[2019-04-30] MEDS: IPRATROPIUM-ALBUTEROL 3 ML NEB INHALATION SCH ×4 (07:05→20:12)
[2019-04-30] MEDS: BUDESONIDE 1 MG/2 ML NEBU INHALATION SCH ×2 (07:05→20:12)
[2019-04-30] MEDS: FORMOTEROL FUMARATE 20 MCG/2 ML NEBU INHALATION SCH ×2 (07:05→20:11)
[2019-04-30 07:06] LABS: Glucose,Whole Blood 126 mg/dL (75-99)
[2019-04-30] MEDS: INSULIN ASPART (NovoLOG) 100 UNIT/ML VIAL SQ SCH ×4 (07:09→22:05)
[2019-04-30] MEDS: ISOSORBIDE MONONITRATE ER 30 MG TAB.ER.24H PO SCH (08:37)
[2019-04-30] MEDS: METOPROLOL SUCCINATE (ER) 25 MG TAB.ER.24H PO SCH ×2 (08:37→21:55)
[2019-04-30] MEDS: guaiFENesin-DM 600/30MG 1 EACH TAB.ER.12H PO SCH ×2 (08:37→22:22)
[2019-04-30] MEDS: PANTOPRAZOLE 40 MG/10 ML VIAL IVP SCH ×2 (08:37→21:53)
[2019-04-30] MEDS: CLOPIDOGREL 75 MG TAB PO SCH (08:37)
[2019-04-30] MEDS: NICOTINE 14MG/24HR PATCH TRANSDERM SCH (08:37)
[2019-04-30] MEDS: ASPIRIN 81 MG PO SCH (08:37)
[2019-04-30] MEDS: FLUTICASONE 50MCG/SPRAY NASAL 16GM EA NOSTRIL SCH (08:38)
--- NOTE | 2019-04-30 10:42 | P.PN ---
Subjective Progress Note Date: 04/30/19 58-year-old male with history of COPD chronic smoking hypertension hyperlipidemia and atherosclerotic heart disease who was in the hospital 2 weeks ago with COPD exacerbation patient did not make it to see his primary care or his health care administrator since he left the hospital continue to smoke heavily developed to have another episode of significant shortness of breath cough wheezes with acute respiratory failure become much worse [facility]2019 continue to have severe hypoxia with pulse ox running in the low 80 inspiratory expiratory wheezes and copious amount of secretion and cough productive phlegm with mild hemoptysis. Patient was started on updraft, O2, large dose of steroid IV consult pulmonary start patient on antibiotic as well and admit patient to the hospital with above problem. 04/27: Patient is seen today on the MedSurg floor. He states he's coughed up a little bit of blood. Dr. Hudson is on consult. Pulmicort will be increased 1 mg twice daily. Patient is currently on DuoNeb treatments 4 times daily and as needed. Nicotine patch has been added and NovoLog. Patient states he has trouble covering or pain for smoking cessation medications including nicotine. systems project manager will use [employer] at the time of discharge to cover nicotine patch for the patient. Patient is afebrile, heart rate 110, blood pressure 128/75, pulse ox 94% on room air. 04/28: Patient continues to have cough, difficulty breathing and wheezing. Patient has sputum production with blood tinged. Solu-Medrol is at 60 mg IV every 6 hours and will remain there. Patient has been afebrile, heart rate 96, blood pressure 117/96, pulse ox 94% on room air. Blood sugars are elevated secondary to steroid use. Patient is followed by Dr. Hudson from pulmonary medicine. No plan for bronchoscopy. Anticipate patient will be here most of the weekend. 04/29: Patient experience chest pain overnight. Patient states that he started to have cough and developed some heartburn. Patient had a sharp stabbing chest pain to the mid sternum radiating to the back. He continues to have tachycardia 120s. Patient continues to have heartburn however the chest pain has subsided. Troponin was negative. Cardiology consult. Patient continues to be on Solu-Me drol 60 mg every 6 hours. His breathing has improved until he begins coughing. His appetite has decreased. Patient denies any epigastric discomfort. 04/30: Patient does not experience any further chest pain. Patient states that the heartburn has resolved. He is feeling that he is breathing better. Continues to have a productive cough. Patient was ordered to have another echocardiogram performed today. Patient remained afebrile. Heart rate 94, blood pressure 118/81, respirations 16 and nonlabored, oxygen saturation 95% on 2 L. Review of systems CONSTITUTIONAL: Well-developed, looks much older than his age, denies fever, denies chills. EYES: No icterus sclerae, no conjunctivitis. EARS, NOSE, MOUTH, THROAT, and FACE: No sore throat, lymphadenopathy, carotid bruits or deformity. RESPIRATORY: Positive shortness of breath , reports cough wheezes and secretion with hemoptysis. CARDIOVASCULAR: Positive PND orthopnea palpitation positive angina. GASTROINTESTINAL: No Abd pain, Nausea or vomiting, no Diarrhea or constipation, No GI Bleed, no distention or masses. Positive decreased appetite GENITOURINARY: Negative for Hematuria or UTI, no kidney stones. INTEGUMENT/BREAST: Negative for any muscular injury with mild osteoarthritis. HEMATOLOGIC/LYMPHATIC: Negative for bleed or purpura. MUSCULOSKELTAL: Negative for Myalgia or arthralgia. NEURLOGICAL: No LOC, Sz or syncope, blurred vision dizziness or abnormality. BEHAVIORAL/PSYCH: Ne Objective - Vital Signs Vital signs: Vital Signs Temp 97.9 F 04/30/19 05:38 Pulse 90 04/30/19 07:25 Resp 16 04/30/19 05:38 BP 109/70 04/30/19 05:38 Pulse Ox 95 04/30/19 05:38 Intake & Output 04/29/19 04/30/19 04/30/19 18:59 06:59 18:59 Intake Total 780 Balance 780 Intake: Oral 780 Other: Voiding Method Toilet # Voids 1 3 # Bowel Movements 1 - Exam General Appearance: Alert, cooperative, no distress, appears stated age. Neck HEENT: Supple, no lymphadenopathy, no thyroid enlargement, no carotid bruits. Lungs: Decreased bilaterally with fine rhonchi positive crackles in the bases bilateral positive expiratory wheezes, congested cough Chest Wall: Decreased expansion with deep inspiration no tenderness and no deformity was found on exam, no costochondral pain or discomfort. Heart: Regular rate and rhythm, S1, S2 normal, no murmur, rub or gallop. Back: Symmetric, no curvature, ROM normal, no CVA tenderness. Abdomen: Soft, non-tender, no rebound or rigidity, no hepatosplenomegaly. Extremities: Extremities normal, atraumatic, no cyanosis or edema. Pulses: 2+ and symmetric. Skin: Skin color, texture, tugor normal, no rashes or lesions. Neurologic: Alert oriented x3 cranial nerves II through XII intact, no motor deficit, no abnormal balance or gait - Labs CBC & Chem 7: 04/26/19 11:27 04/26/19 11:27 Labs: Abnormal Lab Results - Last 24 Hours (Table) 04/29/19 04/29/19 04/29/19 Range/Units 11:46 16:34 20:37 POC Glucose (mg/dL) 148 H 192 H 152 H (75-99) mg/dL 04/30/19 Range/Units 07:04 POC Glucose (mg/dL) 126 H (75-99) mg/dL Microbiology - Last 24 Hours (Table) 04/26/19 11:34 Blood Culture - Preliminary Blood No Growth after 72 hours Assessment and Plan Plan: 1. Acute respiratory failure secondary to COPD exacerbation along with purulent tracheal bronchitis mild fluid overload, patient will be hospitalized continue O2 continue updraft treatment and steroid. 2. COPD exacerbation: Continue Solu-Medrol 60 mg every 6 hours, DuoNeb treatments 4 times daily and every 2 hours as needed, azithromycin and ceftriaxone, Perforomist twice daily, Robitussin before meals, Mucinex. Consult with Dr. Tristan rey. 3. Purulent tracheal bronchitis without signs of pneumonia. Continue azithromycin and Rocephin. 4. Tobacco use and dependence. Continue nicotine patch 14 mg daily. Prescription sent to pharmacy and case resolution specialist to use [employer] funds to pay for nicotine patch. 5. Chest pain/epigastric pain possibly related to steroid use. Nitroglycerin given with relief. Cardiology consult. DC Pepcid start IV Protonix 40 mg twice a day. Metoprolol increased to 25 mg twice a day 6. Hyperlipidemia: Remain on atorvastatin 40 mg a day. 7. Coronary artery disease status post PCI and stent placement. Continue aspirin 81 mg daily, Lipitor 40 mg daily, Toprol-XL 25 mg daily. 8. Hyperglycemia secondary to steroids. 9. Possible asthma suspected, moderate persistent. Continue Singulair. 10. Hypertension: Increase patient on Toprol-XL 25 mg a day twice a day. 11. GI prophylaxis. Protonix 40 mg twice a day 12. DVT prophylaxis. Continue heparin subcu. CODE STATUS: DO NOT RESUSCITATE. Discharge plan: home Impression and plan of care have been directed as dictated by the signing physician. Isabel De La Cruz nurse practitioner acting as scribe for signing physician.
[2019-04-30 11:33] LABS: Glucose,Whole Blood 164 mg/dL (75-99)
--- NOTE | 2019-04-30 11:55 | PN ---
PROGRESS NOTE DATE OF SERVICE: 04/30/2019 He was seen on April 30, 2019. He has been hemodynamically stable. He is less short of breath. On physical examination, his vitals are stable. He is afebrile. His chest reveals expiratory wheeze only on forced exhalation. Cardiovascular system reveals an S1, S2. Abdomen is soft. There is no edema. IMPRESSION: At this time is: Severe asthma with chronic obstructive pulmonary disease with acute exacerbation. Continue IV and aerosolized steroids. Continue bronchodilators. Increase his activity level. Prognosis fair. MMODL / IJN: [id number] /
[2019-04-30] MEDS: AZITHROMYCIN 500 MG TAB PO SCH (13:13)
[2019-04-30 16:30] LABS: Glucose,Whole Blood 148 mg/dL (75-99)
--- NOTE | 2019-04-30 17:27 | P.PN ---
Subjective Progress Note Date: 04/30/19 This is a 58-year-old gentleman with history of coronary artery disease, status post stent placement of the right coronary artery. Patient also has history of COPD. He was admitted on fourth of this month to this hospital with increasing shortness of breath, cough and chest pain and was treated for exacerbation of COPD. Patient is readmitted to this hospital again with increasing shortness of breath. Last night patient had a bout of vomiting following that patient started having discomfort and burning in the epigastric area. Subsequently it became short and reminded him of the pain he had before the stent placement. This is the stented RCA, patient apparently had 2 other lesions. He was conc erned about other lesions progressing. His EKG showed sinus tachycardia. Patient's 1 troponin is within normal limits. The pain apparently was relieved with one sublingual nitroglycerin. Hasn't had any recurrence of pain. We'll get on the troponin value. We'll monitor his clinical status. We'll may also get an echocardiogram. If patient has any recurrence of chest pain, we may have to consider for definitive diagnosis to rule out any progression of ischemic heart disease. He hasn't had any recurrence of chest pain. His second troponin is normal. Patient could be discharged home in medically stable. Follow-up with Dr. Torres Objective - Vital Signs Vital signs: Vital Signs Temp 97.9 F 04/30/19 13:45 Pulse 84 04/30/19 15:29 Resp 18 04/30/19 13:45 BP 133/75 04/30/19 13:45 Pulse Ox 95 04/30/19 13:45 Intake & Output 04/29/19 04/30/19 04/30/19 18:59 06:59 18:59 Intake Total 780 650 Balance 780 650 Intake: IV 50 cefTRIAXone 1 gm In 50 Sodium Chloride 0.9% 50 ml @ 100 mls/hr IVPB Q24HR [facility] Rx#:[id number] Oral 780 Lipid 600 Sodium Chloride 0.9% 1, 600 000 ml @ 75 mls/hr IV . [id number] [facility] Rx#:[id number] Other: Voiding Method Toilet # Voids 1 3 # Bowel Movements 1 - Exam GENERAL EXAM: Patient is alert and oriented and doesn't appear to be in any acute distress HEENT: Normocephalic. Normal reaction of pupils, equal size, normal range of extraocular motion. No erythema or exudates in the throat. NECK: No masses, no nuchal rigidity. CHEST: No chest wall deformity. LUNGS: Less wheezing HEART: S1 and S2 normal with no audible mumurs or gallops. Regular rhythm, femorals equal on both sides.. ABDOMEN: No hepatosplenomegaly, normal bowel sounds, no guarding or rigidity. SKIN: No rashes CENTRAL NERVOUS SYSTEM: No focal deficits. EXTREMITIES: No cyanosis, clubbing or edema. - Labs CBC & Chem 7: 04/26/19 11:27 04/26/19 11:27 Labs: Abnormal Lab Results - Last 24 Hours (Table) 04/29/19 04/30/19 04/30/19 Range/Units 20:37 07:04 11:31 POC Glucose (mg/dL) 152 H 126 H 164 H (75-99) mg/dL 04/30/19 Range/Units 16:28 POC Glucose (mg/dL) 148 H (75-99) mg/dL Microbiology - Last 24 Hours (Table) 04/26/19 11:34 Blood Culture - Preliminary Blood No Growth after 96 hours Assessment and Plan (1) Coronary artery disease Current Visit: Yes Status: Acute Code(s): I25.10 - ATHSCL HEART DISEASE OF [place] CORONARY ARTERY W/O ANG PCTRS SNOMED Code(s): 19027085 (2) Acute exacerbation of chronic obstructive pulmonary disease Current Visit: Yes Status: Acute Code(s): J44.1 - CHRONIC OBSTRUCTIVE PULMONARY DISEASE W (ACUTE) EXACERBATION SNOMED Code(s): 094893350 (3) Chest pain Current Visit: No Status: Acute Code(s): R07.9 - CHEST PAIN, UNSPECIFIED SNOMED Code(s): 71496601 Plan: Patient is clinically stable. He could be discharged home to follow as an outpatient, with Dr. Torres
[2019-04-30 20:34] LABS: Glucose,Whole Blood 135 mg/dL (75-99)
[2019-04-30] MEDS: MONTELUKAST 10 MG TAB PO SCH (21:55)
[2019-04-30] MEDS: ATORVASTATIN 40 MG TAB PO SCH (21:55)
[2019-05-01] MEDS: HEPARIN SODIUM,PORCINE 5,000 UNIT/ML 1 ML VIAL SQ SCH ×2 (00:25→08:25)
[2019-05-01] MEDS: methylPREDNISolone SOD SUCCI 125 MG/2 ML VIAL IV SCH ×2 (00:28→05:28)
[2019-05-01] MEDS: IPRATROPIUM-ALBUTEROL 3 ML NEB INHALATION PRN ×2 (01:18→04:53)
[2019-05-01 05:07] VITALS: BP 120/63; TEMP 97.9
[2019-05-01] MEDS: SODIUM CHLORIDE 0.9% 1,000 ML IV SCH (05:29)
[2019-05-01 07:08] LABS: Glucose,Whole Blood 130 mg/dL (75-99)
[2019-05-01] MEDS: INSULIN ASPART (NovoLOG) 100 UNIT/ML VIAL SQ SCH ×2 (07:09→12:38)
[2019-05-01] MEDS: BUDESONIDE 1 MG/2 ML NEBU INHALATION SCH (07:38)
[2019-05-01] MEDS: IPRATROPIUM-ALBUTEROL 3 ML NEB INHALATION SCH ×2 (07:38→11:05)
[2019-05-01] MEDS: FORMOTEROL FUMARATE 20 MCG/2 ML NEBU INHALATION SCH (07:38)
[2019-05-01 07:41] VITALS: RESP 18
[2019-05-01] MEDS: ISOSORBIDE MONONITRATE ER 30 MG TAB.ER.24H PO SCH (08:27)
[2019-05-01] MEDS: METOPROLOL SUCCINATE (ER) 25 MG TAB.ER.24H PO SCH (08:27)
[2019-05-01] MEDS: ASPIRIN 81 MG PO SCH (08:27)
[2019-05-01] MEDS: CLOPIDOGREL 75 MG TAB PO SCH (08:27)
[2019-05-01] MEDS: guaiFENesin-DM 600/30MG 1 EACH TAB.ER.12H PO SCH (08:27)
[2019-05-01] MEDS: FLUTICASONE 50MCG/SPRAY NASAL 16GM EA NOSTRIL SCH (08:28)
[2019-05-01] MEDS: NICOTINE 14MG/24HR PATCH TRANSDERM SCH (08:28)
[2019-05-01] MEDS: PANTOPRAZOLE 40 MG/10 ML VIAL IVP SCH (08:28)
[2019-05-01 10:03] LABS: Basophils # (A) 0.2 k/uL (0-0.2); Basophils % (A) 2 %; Eosinophils % (A) 0 %; HCT 39.3 % (39.0-53.0); HGB 12.7 gm/dL (13.0-17.5); Lymphocytes # (A) 0.4 k/uL (1.0-4.8); Lymphocytes % (A) 4 %; MCH 29.6 pg (25.0-35.0); MCHC 32.3 g/dL (31.0-37.0); MCV 91.6 fL (80.0-100.0); Monocytes # (A) 0.3 k/uL (0-1.0); Monocytes % (A) 3 %; Neutrophils # (A) 9.2 k/uL (1.3-7.7); Neutrophils % (A) 90 %; Platelet Count 208 k/uL (150-450); RBC 4.29 m/uL (4.30-5.90); RDW 13.3 % (11.5-15.5); WBC 10.1 k/uL (3.8-10.6)
[2019-05-01 10:21] LABS: African American GFR (CKD) >90 (>60 ml/min/1.73 sqM); Anion Gap 8 mmol/L; Blood Urea Nitrogen 18 mg/dL (9-20); Calcium 8.3 mg/dL (8.4-10.2); Carbon Dioxide 27 mmol/L (22-30); Chloride 102 mmol/L (98-107); Glucose 143 mg/dL (74-99); Non-African American GFR(CKD) >90 (>60 ml/min/1.73 sqM); Potassium 4.2 mmol/L (3.5-5.1); Sodium 137 mmol/L (137-145)
[2019-05-01 11:20] VITALS: PULSE 84
[2019-05-01 11:51] LABS: Glucose,Whole Blood 144 mg/dL (75-99)
--- NOTE | 2019-05-01 12:20 | P.PN ---
Subjective This is a pleasant 58-year-old male past medical history significant for coronary artery disease s/p PCI of the RCA 12/2018, COPD, hypertension, dyslipidemia and chronic nicotine dependence. He follows in the office with Dr. De Luna. He is currently being treated for an acute exacerbation of COPD. Currently maintained on aspirin 81 mg daily, atorvastatin 40 mg daily, plavix 75 mg daily, imdur 30 mg daily and toprol 25 mg BID. Blood pressure 120/63 heart rate 84 afebrile and maintaining oxygen saturation on room air. Laboratory data rev iewed, WBC 10.1, hgb 12.7, plt 208, sodium 137, potssium 4.2, creatinine 0.76. GENERAL: Well-appearing, well-nourished and in no acute distress. NECK: Supple without JVD or thyromegaly. LUNGS: Breath sounds clear to auscultation bilaterally. Respiration equal and unlabored. No wheezes, rales or rhonchi. HEART: Regular rate and rhythm without murmurs, rubs or gallops. S1 and S2 heard. EXTREMITIES: Normal range of motion, no edema. No clubbing or cyanosis. Peripheral pulses intact. ASSESSMENT Chest pain, atypical. An acute event has been ruled out. Acute exacerbation of COPD History of coronary artery disease s/p PCI of the RCA 12/2018, maintained on dual anti-platelet therapy Hypertension Dsylipidemia Chronic nicotine dependence PLAN Echocardiogram pending and will be reviewed prior to discharge. Smoking cessation recommended. Follow up with Dr. De Luna in the office in 2 weeks. Nurse Practitioner note has been reviewed, I agree with a documented findings and plan of care. Patient was seen and examined. Objective - Vital Signs Vital signs: Vital Signs Temp 97.9 F 05/01/19 04:50 Pulse 84 05/01/19 11:20 Resp 18 05/01/19 11:05 BP 120/63 05/01/19 04:50 Pulse Ox 96 05/01/19 07:38 Intake & Output 04/30/19 05/01/19 05/01/19 18:59 06:59 18:59 Intake Total 650 800 650 Balance 650 800 650 Intake: IV 50 650 Sodium Chloride 0.9% 1, 600 000 ml @ 75 mls/hr IV . [id number] [facility] Rx#:[id number] cefTRIAXone 1 gm In 50 50 Sodium Chloride 0.9% 50 ml @ 100 mls/hr IVPB Q24HR [facility] Rx#:[id number] Oral 800 Lipid 600 Sodium Chloride 0.9% 1, 600 000 ml @ 75 mls/hr IV . [id number] [facility] Rx#:[id number] Other: Voiding Method Toilet # Voids 2 # Bowel Movements 0 - Labs CBC & Chem 7: 05/01/19 09:15 05/01/19 09:15 Labs: Abnormal Lab Results - Last 24 Hours (Table) 04/30/19 04/30/19 05/01/19 Range/Units 16:28 20:22 07:07 RBC (4.30-5.90) m/uL Hgb (13.0-17.5) gm/dL Neutrophils # (1.3-7.7) k/uL Lymphocytes # (1.0-4.8) k/uL Glucose (74-99) mg/dL POC Glucose (mg/dL) 148 H 135 H 130 H (75-99) mg/dL Calcium (8.4-10.2) mg/dL 05/01/19 05/01/19 05/01/19 Range/Units 09:15 09:15 11:40 RBC 4.29 L (4.30-5.90) m/uL Hgb 12.7 L (13.0-17.5) gm/dL Neutrophils # 9.2 H (1.3-7.7) k/uL Lymphocytes # 0.4 L (1.0-4.8) k/uL Glucose 143 H (74-99) mg/dL POC Glucose (mg/dL) 144 H (75-99) mg/dL Calcium 8.3 L (8.4-10.2) mg/dL Microbiology - Last 24 Hours (Table) 04/26/19 11:34 Blood Culture - Preliminary Blood No Growth after 96 hours
[2019-05-01] MEDS ORDERED: methylPREDNISolone SOD SUCCI 40 MG/ML 1 ML VIAL IV SCH (16:00)
--- NOTE | 2019-05-02 10:47 | ECHOF ---
Referral Reason:Chest pain and cardiomyopathy MEASUREMENTS -------- HEIGHT: 172.7 cm WEIGHT: 88.5 kg BP: RVIDd: 3.5 cm (< 3.3) IVSd: 1.0 cm (0.6 - 1.1) LVIDd: 4.8 cm (3.9 - 5.3) LVPWd: 1.4 cm (0.6 - 1.1) IVSs: 1.2 cm LVIDs: 3.7 cm LVPWs: 1.4 cm LA Diam: 3.4 cm (2.7 - 3.8) LAESV Index (A-L): 24.74 ml/m Ao Diam: 3.6 cm (2.0 - 3.7) AV Cusp: 2.1 cm (1.5 - 2.6) MV EXCURSION: 18.547 mm (> 18.000) MV EF SLOPE: 99 mm/s (70 - 150) EPSS: 1.4 cm MV E Reyes: 0.54 m/s MV DecT: 357 ms MV A Reyes: 0.84 m/s MV E/A Ratio: 0.65 RAP: 5.00 mmHg RVSP: 19.65 mmHg FINDINGS -------- Sinus rhythm. This was a technically good study. The left ventricular size is normal. Left ventricular wall thickness is normal. Overall left vent ricular systolic function is low-normal with, an EF between 50 - 55 %. The right ventricle is normal in size. Normal LA size by volume 22+/-6 ml/m2. The right atrial size is normal. There is mild aortic valve sclerosis. There is no evidence of aortic regurgitation. Mild mitral annular calcification present. Mild mitral regurgitation is present. Mild tricuspid regurgitation present. Right ventricular systolic pressure is normal at < 35 mmHg. There is no evidence of pulmonary hypertension. There is no pulmonic regurgitation present. The aortic root size is normal. There is no pericardial effusion. CONCLUSIONS -------- 1. Sinus rhythm. 2. This was a technically good study. 3. The left ventricular size is normal. 4. Left ventricular wall thickness is normal. 5. Overall left ventricular systolic function is low-normal with, an EF between 50 - 55 %. 6. The right ventricle is normal in size. 7. Normal LA size by volume 22+/-6 ml/m2. 8. The right atrial size is normal. 9. There is mild aortic valve sclerosis. 10. Mild mitral annular calcification present. 11. Mild mitral regurgitation is present. 12. Mild tricuspid regurgitation present. 13. Right ventricular systolic pressure is normal at < 35 mmHg. 14. There is no evidence of pulmonary hypertension. 15. There is no pulmonic regurgitation present. 16. The aortic root size is normal. 17. There is no pericardial effusion. SCALE OPERATOR: Monse Spears RDCS
--- NOTE | 2019-05-03 09:42 | P.DS ---
Providers Date of admission: 04/28/19 09:59 Expected date of discharge: 05/01/19 Attending physician: Jamaal Flores Consults: 04/26/19 22:29 Consult Physician Routine Consulting Provider: Gabriel Hudson Consult Reason/Comments: COPD Exacerbation Do you want consulting provider notified?: Yes 04/29/19 00:13 Consult Physician Routine Consulting Provider: [facility] Consult Reason/Comments: chest pain, nausea Do you want consulting provider notified?: Yes, Notify in am Primary care physician: [facility] Course: 58-year-old male with history of COPD chronic smoking hypertension hyperlipidemia and atherosclerotic heart disease who was in the hospital 2 weeks ago with COPD exacerbation patient did not make it to see his primary care or his quality improvement coordinator (rn) since he left the hospital continue to smoke heavily developed to have another episode of significant shortness of breath cough wheezes with acute respiratory failure become much worse ended up coming to demurs department at [facility] on 04/26/2019 continue to have severe hypoxia with pulse ox running in the low 80 inspiratory expiratory wheezes and copious amount of secretion and cough productive phlegm with mild hemoptysis. Patient was started on updraft, O2, large dose of steroid IV consult pulmonary start patient on antibiotic as well and admit patient to the hospital with above problem. 04/27: Patient is seen today on the MedSurg floor. He states he's coughed up a little bit of blood. Dr. Hudson is on consult. Pulmicort will be increased 1 mg twice daily. Patient is currently on DuoNeb treatments 4 times daily and as needed. Nicotine patch has been added and NovoLog. Patient states he has trouble covering or pain for smoking cessation medications including nicotine. supply chain manager will use [facility] at the time of discharge to cover nicotine patch for the patient. Patient is afebrile, heart rate 110, blood pressure 128/75, pulse ox 94% on room air. 04/28: Patient continues to have cough, difficulty breathing and wheezing. Patient has sputum production with blood tinged. Solu-Medrol is at 60 mg IV every 6 hours and will remain there. Patient has been afebrile, heart rate 96, blood pressure 117/96, pulse ox 94% on room air. Blood sugars are elevated secondary to steroid use. Patient is followed by Dr. Hudson from pulmonary medicine. No plan for bronchoscopy. Anticipate patient will be here most of the weekend. 2/1: Patient experience chest pain overnight. Patient states that he started to have cough and developed some heartburn. Patient had a sharp stabbing chest pain to the mid sternum radiating to the back. He continues to have tachycardia 120s. Patient continues to have heartburn however the chest pain has subsided. Troponin was negative. Cardiology consult. Patient continues to be on Solu- Medrol 60 mg every 6 hours. His breathing has improved until he begins coughing. His appetite has decreased. Patient denies any epigastric discomfort. 2/2: Patient does not experience any further chest pain. Patient states that the heartburn has resolved. He is feeling that he is breathing better. Continues to have a productive cough. Patient was ordered to have another echocardiogram performed today. Patient remained afebrile. Heart rate 94, blood pressure 118/81, respirations 16 and nonlabored, oxygen saturation 95% on 2 L. 2/3: Patient complains of continued on heartburn despite Protonix twice daily. He thinks that the Protonix has made it worse and will be discontinued. His breathing status is stable. Blood pressure 120/63 heart rate 84 afebrile and maintaining oxygen saturation on room air. Laboratory data reviewed, WBC 10.1, hgb 12.7, plt 208, sodium 137, potssium 4.2, creatinine 0.76. Patient will be discharged home today in stable condition. Discharge diagnoses: 1. Acute respiratory distress without failure secondary to COPD exacerbation along with purulent tracheal bronchitis mild fluid overload 2. COPD exacerbation 3. Purulent tracheal bronchitis without signs of pneumonia. 4. Tobacco use and dependence. 5. Chest pain/epigastric pain possibly related to steroid use. 6. Hyperlipidemia 7. Coronary artery disease status post PCI and stent placement. 8. Hyperglycemia secondary to steroids. 9. Possible asthma suspected, moderate persistent. 10. Hypertension Discharge plan: home Impression and plan of care have been directed as dictated by the signing physician. Isabel De La Cruz nurse practitioner acting as scribe for signing physician. Patient Condition at Discharge: Good Plan - Discharge Summary Discharge Rx Participant: Yes New Discharge Prescriptions: New Nicotine 14Mg/24Hr Patch [Habitrol] 1 patch TRANSDERM DAILY #30 patch Isosorbide Mononitrate ER [Imdur] 30 mg PO DAILY #30 tab.er.24h predniSONE 0 mg PO DIRECTED #30 tab Azithromycin [Zithromax] 500 mg PO DAILY@1400 #5 tab Continue Albuterol Sulfate [Ventolin HFA] 2 puff INHALATION RT-Q6H PRN PRN Reason: Shortness Of Breath Budesonide [Pulmicort] 0.5 mg INHALATION RT-BID Arformoterol Tartrate [Brovana] 15 mcg INHALATION RT-BID Albuterol Nebulized [Ventolin Nebulized] 2.5 mg INHALATION RT-Q4H PRN PRN Reason: Shortness Of Breath Ipratropium Nebulized [Atrovent Nebulized 0.2 MG/ML] 0.5 mg INHALATION RT-BID Clopidogrel Bisulfate [Plavix] 75 mg PO DAILY #90 tab Metoprolol Succinate (ER) [Toprol XL] 25 mg PO DAILY Aspirin EC [Ecotrin Low Dose] 81 mg PO DAILY Atorvastatin [Lipitor] 40 mg PO HS Fluticasone Nasal [place] [Flonase Nasal [place]] 2 spray EA NOSTRIL DAILY #1 device Montelukast [Singulair] 10 mg PO HS #30 tab guaiFENesin-DM 600/30MG [Mucinex Dm] 1 tab PO Q12H Famotidine [Pepcid AC] 20 mg PO DAILY PRN PRN Reason: Heartburn Discontinued predniSONE See Taper PO DIRECTED Discharge Medication List Albuterol Sulfate [Ventolin HFA] 2 puff INHALATION RT-Q6H PRN 09/07/14 [History] Albuterol Nebulized [Ventolin Nebulized] 2.5 mg INHALATION RT-Q4H PRN 03/03/16 [History] Arformoterol Tartrate [Brovana] 15 mcg INHALATION RT-BID 03/03/16 [History] Budesonide [Pulmicort] 0.5 mg INHALATION RT-BID 03/03/16 [History] Ipratropium Nebulized [Atrovent Nebulized 0.2 MG/ML] 0.5 mg INHALATION RT-BID 03/23/17 [History] Clopidogrel Bisulfate [Plavix] 75 mg PO DAILY #90 tab 12/30/18 [Rx] Aspirin EC [Ecotrin Low Dose] 81 mg PO DAILY 04/01/19 [History] Metoprolol Succinate (ER) [Toprol XL] 25 mg PO DAILY 04/01/19 [History] Atorvastatin [Lipitor] 40 mg PO HS 04/07/19 [History] Fluticasone Nasal [place] [Flonase Nasal [place]] 2 spray EA NOSTRIL DAILY #1 device 04/15/19 [Rx] Montelukast [Singulair] 10 mg PO HS #30 tab 04/15/19 [Rx] Famotidine [Pepcid AC] 20 mg PO DAILY PRN 04/26/19 [History] guaiFENesin-DM 600/30MG [Mucinex Dm] 1 tab PO Q12H 04/26/19 [History] Nicotine 14Mg/24Hr Patch [Habitrol] 1 patch TRANSDERM DAILY #30 patch 04/28/19 [Rx] Azithromycin [Zithromax] 500 mg PO DAILY@1400 #5 tab 05/01/19 [Rx] Isosorbide Mononitrate ER [Imdur] 30 mg PO DAILY #30 tab.er.24h 05/01/19 [Rx] predniSONE 0 mg PO DIRECTED #30 tab 05/01/19 [Rx] Follow up Appointment(s)/Referral(s): Idris De Luna MD [STAFF PHYSICIAN] - 05/09/19 3:45 pm Bear Arias MD [Primary Care Provider] - 05/08/19 10:00 am Gabriel Hudson MD [STAFF PHYSICIAN] - 05/12/19 10:45 am Patient Instructions/Handouts: COPD (Chronic Obstructive Pulmonary Disease) (DC) Activity/Diet/Wound Care/Special Instructions: For Nicotine patches there is an indigent form on chart for these only. Please send Rx and indigent form to [facility] pharmacy. Discharge Disposition: HOME SELF-CARE
== END 2019-05-01 12:46 | disposition home or self-care (01) | DRG 191 ==
LOC: EC 10:06 → 6NMEDSUR 14:35 → OBSVTOIN 04-28 09:59
PROVIDERS: ADMIT Internal Medicine Geriatric Medicine; ATTEND Internal Medicine Geriatric Medicine
DX: J44.1 Chronic obstructive pulmonary disease with (acute) exacerbation (principal); J45.41 Moderate persistent asthma with (acute) exacerbation; I11.9 Hypertensive heart disease without heart failure; E78.5 Hyperlipidemia, unspecified; E87.70 Fluid overload, unspecified; F10.21 Alcohol dependence, in remission; F17.200 Nicotine dependence, unspecified, uncomplicated; I25.10 Atherosclerotic heart disease of native coronary artery without angina pectoris; I25.2 Old myocardial infarction; M13.0 Polyarthritis, unspecified; T38.0X5A Adverse effect of glucocorticoids and synthetic analogues, initial encounter; R06.03 Acute respiratory distress; Z66 Do not resuscitate; Z77.090 Contact with and (suspected) exposure to asbestos; R73.9 Hyperglycemia, unspecified; R09.02 Hypoxemia; N40.0 Benign prostatic hyperplasia without lower urinary tract symptoms; R12 Heartburn; R07.89 Other chest pain; Z88.1 Allergy status to other antibiotic agents; Z79.02 Long term (current) use of antithrombotics/antiplatelets; Z79.82 Long term (current) use of aspirin; Z79.899 Other long term (current) drug therapy; Z95.5 Presence of coronary angioplasty implant and graft; Z79.52 Long term (current) use of systemic steroids; Z96.653 Presence of artificial knee joint, bilateral; Z80.1 Family history of malignant neoplasm of trachea, bronchus and lung; Z80.8 Family history of malignant neoplasm of other organs or systems; Z82.49 Family history of ischemic heart disease and other diseases of the circulatory system; Z83.3 Family history of diabetes mellitus
CPT/HCPCS: 36415; 71046; 80048; 80053; 82550; 82553; 83605; 84484; 85025; 85610; 85730; 87040; 87502; 93005; 93306; 94640; 94760; 96361; 96365; 96375; 96376; 99285

== ENCOUNTER → 2019-05-17 | Outpatient (CLI) | payer MEDICARE, OTHER ==
[2019-05-18 13:11] LABS: Brazil Nut IgE <0.10 kU/L (<0.10); Brazil Nut IgE Class CLASS 0; Hazelnut IgE <0.10 kU/L (<0.10); Hazelnut IgE Class CLASS 0
[2019-05-18 13:12] LABS: Almond IgE <0.10 kU/L (<0.10); Almond IgE Class CLASS 0
[2019-05-18 13:13] LABS: Cashew IgE <0.10 kU/L (<0.10); Cashew IgE Class CLASS 0
[2019-05-18 13:14] LABS: Cow's Milk IgE Class CLASS 0; Egg White IgE <0.10 kU/L (<0.10); Peanut IgE <0.10 kU/L (<0.10); Potato IgE <0.10 kU/L (<0.10); Potato IgE Class CLASS 0; Soybean IgE <0.10 kU/L (<0.10)
== END | disposition home or self-care (01) ==
LOC: LABWHC1 11:41
PROVIDERS: ATTEND Otolaryngology
DX: L50.0 Allergic urticaria (principal)
CPT/HCPCS: 36415; 86003

== ENCOUNTER 2019-11-28 20:41 | Observation (INO) | payer MEDICARE, OTHER ==
[2019-11-28] MEDS ORDERED: ASPIRIN 81 MG PO STA (21:02)
[2019-11-28] MEDS ORDERED: NITROGLYCERIN OINT 1 INCH/GM PACKET TOPICAL STA (21:02)
--- NOTE | 2019-11-28 21:04 | ED ---
General Adult HPI - General Chief complaint: Chest Pain Stated complaint: Chest Pain Time Seen by Provider: 11/28/19 20:54 Source: patient, RN notes reviewed Mode of arrival: ambulatory Limitations: no limitations - History of Present Illness Initial comments: Patient is a pleasant 59-year-old male presenting to the emergency Department with complaints of chest discomfort. Onset of symptoms was a few hours ago while moving furniture. Discomfort feels like indigestion. Discomfort was somewhat severe rated 8/10 and is currently improved rated 3/10. Patient felt slightly short of breath. Patient did feel lightheaded. No diaphoresis. No nausea. Patient states he did have similar symptoms previously in January with stent placement with Dr. De Luna. No leg pain or leg swelling. - Related Data Home Medications Medication Instructions Recorded Confirmed Albuterol Sulfate [Ventolin HFA] 2 puff INHALATION RT-Q6H PRN 09/07/14 11/28/19 Albuterol Nebulized [Ventolin 2.5 mg INHALATION RT-Q4H PRN 03/03/16 11/28/19 Nebulized] Arformoterol Tartrate [Brovana] 15 mcg INHALATION RT-BID 03/03/16 11/28/19 Budesonide [Pulmicort] 0.5 mg INHALATION RT-BID 03/03/16 11/28/19 Ipratropium Nebulized [Atrovent 0.5 mg INHALATION RT-BID 03/23/17 11/28/19 Nebulized 0.2 MG/ML] Aspirin EC [Ecotrin Low Dose] 81 mg PO DAILY 04/01/19 11/28/19 Atorvastatin [Lipitor] 40 mg PO HS 04/07/19 11/28/19 Metoprolol Succinate [Toprol XL] 25 mg PO DAILY 11/28/19 11/28/19 Previous Rx's Medication Instructions Recorded Clopidogrel Bisulfate [Plavix] 75 mg PO DAILY #90 tab 12/30/18 Montelukast [Singulair] 10 mg PO HS #30 tab 04/15/19 Isosorbide Mononitrate ER [Imdur] 30 mg PO DAILY #30 tab.er.24h 05/01/19 Allergies Allergy/AdvReac Type Severity Reaction Status Date / Time levofloxacin [From Levaquin] AdvReac Nausea & Verified 11/28/19 20:51 Vomiting Review of Systems ROS Statement: Those systems with pertinent positive or pertinent negative responses have been documented in the HPI. ROS Other: All systems not noted in ROS Statement are negative. Constitutional: Denies: fever Eyes: Denies: eye pain ENT: Denies: ear pain Respiratory: Denies: cough Cardiovascular: Reports: chest pain Endocrine: Denies: fatigue Gastrointestinal: Denies: abdominal pain Genitourinary: Denies: dysuria Musculoskeletal: Denies: back pain Skin: Denies: rash Neurological: Denies: weakness Past Medical History Past Medical History: Coronary Artery Disease (CAD), COPD, Myocardial Infarction (OK) Additional Past Medical History / Comment(s): Pt states he has hx of 3 respiratory arrests and was vented, generalized arthritis, Last Myocardial Infarction Date:: History of Any Multi-Drug Resistant Organisms: None Reported Past Surgical History: Adenoidectomy, Heart Catheterization With Stent, Hernia Repair, Joint Replacement, Orthopedic Surgery, Tonsillectomy Additional Past Surgical History / Comment(s): R inguinal hernia repair, L rotator cuff repair, bialteral total knee arthroplasties, R shoulder spur removal, teeth extracted, colonoscopy-normal. third hernia repair, left side Past Anesthesia/Blood Transfusion Reactions: No Reported Reaction Date of Last Stent Placement:: 2018 Past Psychological History: No Psychological Hx Reported Smoking Status: Light tobacco smoker Past Alcohol Use History: None Reported Past Drug Use History: Marijuana - Past Family History Father Family Medical History: Cancer Additional Family Medical History / Comment(s): Father of lung cancer at the age of 62. He was a smoker. Mother Family Medical History: Diabetes Mellitus, Hypertension Additional Family Medical History / Comment(s): Mother at age 78 from brainstem cancer. Brother(s) Additional Family Medical History / Comment(s): Patient's 1 brother with history of AAA. Patient has 4 sisters and he does not know any of their medical history. Patient's 1 son and 1 daughter living. He had one daughter that at 7 weeks old from a congenital heart. General Exam Limitations: no limitations General appearance: alert, in no apparent distress Head exam: Present: normocephalic Eye exam: Present: normal appearance Neck exam: Present: normal inspection Respiratory exam: Present: normal lung sounds bilaterally. Absent: chest wall tenderness Cardiovascular Exam: Present: regular rate, normal rhythm Expanded Peripheral pulses: 2+: Radial (R), Radial (L), Dorsalis Pedis (R), Dorsalis Pedis (L) GI/Abdominal exam: Present: soft. Absent: tenderness Extremities exam: Present: normal inspection. Absent: pedal edema, calf ten derness Neurological exam: Present: alert Psychiatric exam: Present: normal affect, normal mood Skin exam: Present: normal color Course Vital Signs 11/28/19 20:49 Temperature 98.3 F Pulse Rate 91 Respiratory 20 Rate Blood Pressure 126/92 O2 Sat by Pulse 96 Oximetry EKG Findings - EKG Comments: EKG Findings:: Sinus rhythm at 80. PA 170. QRS 90. QT 368. QTC 424. Left axis. PVC present. Normal QRS. No acute ST change. Medical Decision Making - Medical Decision Making Patient reevaluated and updated. Case was discussed in detail with Dr. Olmedo, covering for Dr. Arias, who will admit. - Lab Data Result diagrams: 11/28/19 21:09 11/28/19 21:09 Lab Results 11/28/19 11/28/19 11/28/19 Range/Units 21:09 21:09 21:09 WBC 10.7 H (3.8-10.6) k/uL RBC 4.84 (4.30-5.90) m/uL Hgb 14.5 (13.0-17.5) gm/dL Hct 41.8 (39.0-53.0) % MCV 86.3 (80.0-100.0) fL MCH 29.9 (25.0-35.0) pg MCHC 34.6 (31.0-37.0) g/dL RDW 13.8 (11.5-15.5) % Plt Count 241 (150-450) k/uL Neutrophils % 60 % Lymphocytes % 32 % Monocytes % 5 % Eosinophils % 1 % Basophils % 0 % Neutrophils # 6.4 (1.3-7.7) k/uL Lymphocytes # 3.4 (1.0-4.8) k/uL Monocytes # 0.6 (0-1.0) k/uL Eosinophils # 0.1 (0-0.7) k/uL Basophils # 0.1 (0-0.2) k/uL PT 10.0 (9.0-12.0) sec INR 1.0 (<1.2) APTT 23.2 (22.0-30.0) sec D-Dimer 0.33 (<0.60) mg/L FEU Sodium 136 L (137-145) mmol/L Potassium 4.0 (3.5-5.1) mmol/L Chloride 103 (98-107) mmol/L Carbon Dioxide 25 (22-30) mmol/L Anion Gap 8 mmol/L BUN 15 (9-20) mg/dL Creatinine 0.89 (0.66-1.25) mg/dL Est GFR (CKD-EPI)AfAm >90 (>60 ml/min/1.73 sqM) Est GFR (CKD-EPI)NonAf >90 (>60 ml/min/1.73 sqM) Glucose 109 H (74-99) mg/dL Calcium 9.7 (8.4-10.2) mg/dL Magnesium 2.2 (1.6-2.3) mg/dL Total Bilirubin 0.7 (0.2-1.3) mg/dL AST 22 (17-59) U/L ALT 14 (4-49) U/L Alkaline Phosphatase 122 (38-126) U/L Troponin I (0.000-0.034) ng/mL Total Protein 6.9 (6.3-8.2) g/dL Albumin 4.5 (3.5-5.0) g/dL 11/28/19 Range/Units 21:09 WBC (3.8-10.6) k/uL RBC (4.30-5.90) m/uL Hgb (13.0-17.5) gm/dL Hct (39.0-53.0) % MCV (80.0-100.0) fL MCH (25.0-35.0) pg MCHC (31.0-37.0) g/dL RDW (11.5-15.5) % Plt Count (150-450) k/uL Neutrophils % % Lymphocytes % % Monocytes % % Eosinophils % % Basophils % % Neutrophils # (1.3-7.7) k/uL Lymphocytes # (1.0-4.8) k/uL Monocytes # (0-1.0) k/uL Eosinophils # (0-0.7) k/uL Basophils # (0-0.2) k/uL PT (9.0-12.0) sec INR (<1.2) APTT (22.0-30.0) sec D-Dimer (<0.60) mg/L FEU Sodium (137-145) mmol/L Potassium (3.5-5.1) mmol/L Chloride (98-107) mmol/L Carbon Dioxide (22-30) mmol/L Anion Gap mmol/L BUN (9-20) mg/dL Creatinine (0.66-1.25) mg/dL Est GFR (CKD-EPI)AfAm (>60 ml/min/1.73 sqM) Est GFR (CKD-EPI)NonAf (>60 ml/min/1.73 sqM) Glucose (74-99) mg/dL Calcium (8.4-10.2) mg/dL Magnesium (1.6-2.3) mg/dL Total Bilirubin (0.2-1.3) mg/dL AST (17-59) U/L ALT (4-49) U/L Alkaline Phosphatase (38-126) U/L Troponin I <0.012 (0.000-0.034) ng/mL Total Protein (6.3-8.2) g/dL Albumin (3.5-5.0) g/dL - Radiology Data Radiology results: image reviewed (Chest x-ray shows no acute process) Disposition Clinical Impression: Chest pain Disposition: ADMITTED IP TO THIS [facility] Is patient prescribed a controlled substance at d/c from ED?: No Referrals: Nonstaff,Physician [REFERRING] - 1-2 days Decision Time: 22:13
[2019-11-28 21:29] LABS: ALT 14 U/L (4-49); AST 22 U/L (17-59); African American GFR (CKD) >90 (>60 ml/min/1.73 sqM); Albumin 4.5 g/dL (3.5-5.0); Alkaline Phosphatase 122 U/L (38-126); Anion Gap 8 mmol/L; Blood Urea Nitrogen 15 mg/dL (9-20); Calcium 9.7 mg/dL (8.4-10.2); Carbon Dioxide 25 mmol/L (22-30); Chloride 103 mmol/L (98-107); Glucose 109 mg/dL (74-99); Magnesium 2.2 mg/dL (1.6-2.3); Non-African American GFR(CKD) >90 (>60 ml/min/1.73 sqM); Sodium 136 mmol/L (137-145); Total Bilirubin 0.7 mg/dL (0.2-1.3); Total Protein 6.9 g/dL (6.3-8.2)
--- NOTE | 2019-11-28 21:30 | XR ---
EXAMINATION TYPE: XR chest 2V DATE OF EXAM: 11/28/2019 COMPARISON: 04/26/2019 HISTORY: Chest pain TECHNIQUE: FINDINGS: Heart and mediastinum are normal. Lungs are clear. Diaphragm is normal. Bony thorax appears normal. IMPRESSION: Normal chest. No change.
[2019-11-28 21:37] LABS: D-Dimer 0.33 mg/L FEU (<0.60); Partial Thromboplastin Time 23.2 sec (22.0-30.0)
[2019-11-28 21:45] LABS: Basophils # (A) 0.1 k/uL (0-0.2); Basophils % (A) 0 %; Eosinophils # (A) 0.1 k/uL (0-0.7); Eosinophils % (A) 1 %; HCT 41.8 % (39.0-53.0); HGB 14.5 gm/dL (13.0-17.5); Lymphocytes # (A) 3.4 k/uL (1.0-4.8); Lymphocytes % (A) 32 %; MCH 29.9 pg (25.0-35.0); MCHC 34.6 g/dL (31.0-37.0); MCV 86.3 fL (80.0-100.0); Mean Platelet Volume 8.1; Monocytes # (A) 0.6 k/uL (0-1.0); Monocytes % (A) 5 %; Neutrophils # (A) 6.4 k/uL (1.3-7.7); Neutrophils % (A) 60 %; Platelet Count 241 k/uL (150-450); RBC 4.84 m/uL (4.30-5.90); RDW 13.8 % (11.5-15.5); WBC 10.7 k/uL (3.8-10.6)
[2019-11-28] MEDS ORDERED: NITROGLYCERIN SL TABS 0.4 MG TAB SUBLINGUAL PRN (22:13)
[2019-11-29] MEDS: NITROGLYCERIN OINT 1 INCH/GM PACKET TOPICAL SCH ×3 (01:50→12:21)
[2019-11-29 03:50] LABS: Cholesterol 150 mg/dL (<200); HDL Cholesterol 32 mg/dL (40-60); LDL Cholesterol,Calculated 95 mg/dL (0-99); Triglycerides 116 mg/dL (<150)
[2019-11-29] MEDS ORDERED: AMINOPHYLLINE 500 MG/20 ML VIAL IV PRN (07:57)
[2019-11-29] MEDS ORDERED: CAFFEINE CITRATE 60 MG/3 ML VIAL IV PRN (07:57)
[2019-11-29] MEDS ORDERED: REGADENOSON 0.4 MG/5 ML SYRINGE IV ONE (07:57)
[2019-11-29] MEDS ORDERED: BUDESONIDE 0.5 MG/2 ML NEBU INHALATION SCH (08:00)
--- NOTE | 2019-11-29 08:53 | P.CRDCN ---
History of Present Illness Consult date: 11/29/19 History of present illness: HISTORY OF PRESENTING ILLNESS This is a pleasant 54-huhe-glo-year-male with a history of coronary artery disease status post PCI to his RCA, COPD, hypertension who presents secondary to chest pain which occurred yesterday. Patient normally follows with Dr. De Luna admits that just seen him a few weeks ago. Patient states he had been doing julian rly well without episodes of chest pain or pressure however was doing strenuous work helping move and started to have epigastric pain coming up in his chest associated with some shortness of breath and diaphoresis. He admits he was exerting himself a little bit more than normal. He did take a nitroglycerin which is the first time he has ever had to do this and rested and this did improve after hitting the 20 minutes. He did still however not quite feel himself and was still having mild chest discomfort. Therefore he presented to the emergency department. He admits he still smokes less than a pack a day. He was found to have moderate other blockages in his heart catheterization which he has been concerned about in the past. He admits he was still feeling somewhat abnormal yesterday however currently today he feels much better. He does admit that the chest pain felt similar to his prior event before his stent. DIAGNOSTICS EKG reveals normal sinus rhythm, left axis deviation, Q waves in 3 and aVF, occasional PVC, nonspecific ST T wave abnormalities.. Chest xray no acute process. Laboratory reviewed, white blood cell count 10.7, hemoglobin 14.5, platelets 241, creatinine 0.89, troponin negative 3.. Current cardiac medications include aspirin 81 mg daily, Lipitor 40 mg daily, Plavix 75 mg daily, Imdur 30 mg daily, Toprol 25 mg daily, nitroglycerin as needed. REVIEW OF SYSTEMS At the time of my exam: CONSTITUTIONAL: Denies fever or chills. CARDIOVASCULAR: + chest pain, no shortness of breath, orthopnea, PND or palpitations. RESPIRATORY: Denies cough. GASTROINTESTINAL: Denies abdominal pain, diarrhea, constipation, nausea or vomiting. MUSCULOSKELETAL: Denies myalgias. NEUROLOGIC: Denies numbness, tingling or weakness. ENDOCRINE: Denies fatigue, weight change, polydipsia or polyurina. GENITOURINARY: Denies burning, hematuria or urgency with micturation. HEMATOLOGIC: Denies history of anemia or bleeding. PHYSICAL EXAMINATION Blood pressure 103/65 heart rate 77 afebrile and maintaining oxygen saturation on room air. CONSTITUTIONAL: No apparent distress. HEENT: Head is normocephalic. Pupils are equal, round. Sclerae anicteric. Mucous membranes of the mouth are moist. No JVD. No carotid bruit. CHEST EXAMINATION: Lungs are clear to auscultation. No chest wall tenderness is noted on palpation or with deep breathing. HEART EXAMINATION: Regular rate and rhythm. S1, S2 heard. No murmurs, gallops or rub. ABDOMEN: Soft, nontender. Positive bowel sounds. EXTREMITIES: 2+ peripheral pulses, no lower extremity edema and no calf tenderness. NEUROLOGIC EXAMINATION: Patient is awake, alert and oriented x3. ASSESSMENT 1. Somewhat atypical chest pain worse with exertion and improved with rest and nitroglycerin which felt similar to his prior stenting. Troponin negative 3. 2. Hypertension, well controlled 3. Tobacco abuse 4. COPD 5. Coronary artery disease status post PCI to his RCA PLAN Patient does admit that he is somewhat overexerted himself yesterday moving however he is on too antianginals with Imdur and Toprol and was still having some discomfort even after resting concerning for unstable angina. We will therefore check a nuclear stress test to rule out obstructive CAD. If this is normal patient may be discharged home with outpatient follow-up with Dr. De Luna. Past Medical History Past Medical History: Coronary Artery Disease (CAD), COPD, Myocardial Infarction ([place]) Additional Past Medical History / Comment(s): Pt states he has hx of 3 respiratory arrests and was vented, generalized arthritis, Last Myocardial Infarction Date:: History of Any Multi-Drug Resistant Organisms: None Reported Past Surgical History: Adenoidectomy, Heart Catheterization With Stent, Hernia Repair, Joint Replacement, Orthopedic Surgery, Tonsillectomy Additional Past Surgical History / Comment(s): R inguinal hernia repair, L rotator cuff repair, bialteral total knee arthroplasties, R shoulder spur removal, teeth extracted, colonoscopy-normal. third hernia repair, left side Past Anesthesia/Blood Transfusion Reactions: No Reported Reaction Date of Last Stent Placement:: 2018 Past Psychological History: No Psychological Hx Reported Additional Psychological History / Comment(s): He uses no assistive devices. Smoking Status: Current every day smoker Past Alcohol Use History: None Reported Additional Past Alcohol Use History / Comment(s): patient quit smoking in 12/2018, but has restarted. He uses marijuana (edilbel) daily for pain. He is recovering alcoholic and he drinks alcohol rarely at this point. He has history of illicit drug use including Phen-Fen a means, LSD, cocaine, heroin and quit all of this 9 years ago. 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 Past Drug Use History: Marijuana Additional Drug Use History / Comment(s): He states in the past he has used marijuana, heroin, crystal meth, cocaine and crack but none of those drugs for about 9 yrs. - Past Family History Father Family Medical History: Cancer Additional Family Medical History / Comment(s): Father of lung cancer at the age of 62. He was a smoker. Mother Family Medical History: Diabetes Mellitus, Hypertension Additional Family Medical History / Comment(s): Mother at age 78 from brainstem cancer. Brother(s) Additional Family Medical History / Comment(s): Patient's 1 brother with history of AAA. Patient has 4 sisters and he does not know any of their medical his tory. Patient's 1 son and 1 daughter living. He had one daughter that at 7 weeks old from a congenital heart. Medications and Allergies Home Medications Medication Instructions Recorded Confirmed Type Albuterol Sulfate [Ventolin HFA] 2 puff INHALATION RT-Q6H PRN 09/07/14 11/28/19 History Albuterol Nebulized [Ventolin 2.5 mg INHALATION RT-Q4H PRN 03/03/16 11/28/19 History Nebulized] Arformoterol Tartrate [Brovana] 15 mcg INHALATION RT-BID 03/03/16 11/28/19 History Budesonide [Pulmicort] 0.5 mg INHALATION RT-BID 03/03/16 11/28/19 History Ipratropium Nebulized [Atrovent 0.5 mg INHALATION RT-BID 03/23/17 11/28/19 History Nebulized 0.2 MG/ML] Clopidogrel Bisulfate [Plavix] 75 mg PO DAILY #90 tab 12/30/18 11/28/19 Rx Aspirin EC [Ecotrin Low Dose] 81 mg PO DAILY 04/01/19 11/28/19 History Atorvastatin [Lipitor] 40 mg PO HS 04/07/19 11/28/19 History Montelukast [Singulair] 10 mg PO HS #30 tab 04/15/19 11/28/19 Rx Isosorbide Mononitrate ER [Imdur] 30 mg PO DAILY #30 tab.er.24h 05/01/19 11/28/19 Rx Metoprolol Succinate [Toprol XL] 25 mg PO DAILY 11/28/19 11/28/19 History Allergies Allergy/AdvReac Type Severity Reaction Status Date / Time levofloxacin [From Levaquin] AdvReac Nausea & Verified 11/28/19 20:51 Vomiting Physical Exam Vitals: Vital Signs Temp Pulse Pulse Resp BP BP Pulse Ox 11/29/19 04:50 98 F 80 20 106/69 95 11/28/19 22:38 97.9 F 77 18 103/65 97 11/28/19 22:26 98.0 F 79 18 139/73 95 11/28/19 22:00 87 16 127/74 96 11/28/19 20:49 98.3 F 91 20 126/92 96 Intake and Output 11/28/19 11/29/19 11/29/19 22:59 06:59 14:59 Other: Voiding Method Toilet Toilet # Voids 1 1 Weight 87.09 kg Results 11/28/19 21:09 11/28/19 21:09 Cardiac Enzymes 11/28/19 11/28/19 11/29/19 Range/Units 21:09 21:09 01:28 AST 22 (17-59) U/L Troponin I <0.012 <0.012 (0.000-0.034) ng/mL 11/29/19 Range/Units 03:26 AST (17-59) U/L Troponin I <0.012 (0.000-0.034) ng/mL Coagulation 11/28/19 Range/Units 21:09 PT 10.0 (9.0-12.0) sec APTT 23.2 (22.0-30.0) sec Lipids 11/29/19 Range/Units 03:26 Triglycerides 116 (<150) mg/dL Cholesterol 150 (<200) mg/dL HDL Cholesterol 32 L (40-60) mg/dL CBC 11/28/19 Range/Units 21:09 WBC 10.7 H (3.8-10.6) k/uL RBC 4.84 (4.30-5.90) m/uL Hgb 14.5 (13.0-17.5) gm/dL Hct 41.8 (39.0-53.0) % Plt Count 241 (150-450) k/uL Comprehensive Metabolic Panel 11/28/19 Range/Units 21:09 Sodium 136 L (137-145) mmol/L Potassium 4.0 (3.5-5.1) mmol/L Chloride 103 (98-107) mmol/L Carbon Dioxide 25 (22-30) mmol/L BUN 15 (9-20) mg/dL Creatinine 0.89 (0.66-1.25) mg/dL Glucose 109 H (74-99) mg/dL Calcium 9.7 (8.4-10.2) mg/dL AST 22 (17-59) U/L ALT 14 (4-49) U/L Alkaline Phosphatase 122 (38-126) U/L Total Protein 6.9 (6.3-8.2) g/dL Albumin 4.5 (3.5-5.0) g/dL Current Medications Generic Name Dose Route Start Last Admin Trade Name Freq PRN Reason Stop Dose Admin Aminophylline 100 mg 11/29/19 07:57 Aminophylline IV ONCE PRN Patient Response Aspirin 81 mg 11/29/19 09:00 Aspirin PO DAILY [facility] Atorvastatin Calcium 40 mg 11/29/19 21:00 Lipitor PO HS [facility] Budesonide 0.5 mg 11/29/19 08:00 Pulmicort INHALATION RT-BID [facility] Caffeine Citrate 60 mg 11/29/19 07:57 Cafcit Inj IV ONCE PRN Patient Response Clopidogrel Bisulfate 75 mg 11/29/19 09:00 Plavix PO DAILY [facility] Isosorbide Mononitrate 30 mg 11/29/19 09:00 Imdur PO DAILY [facility] Metoprolol Succinate 25 mg 11/29/19 09:00 Toprol Xl PO DAILY [facility] Montelukast Sodium 10 mg 11/29/19 21:00 Singulair PO HS [facility] Nitroglycerin 0.4 mg 11/28/19 22:13 Nitrostat SUBLINGUAL Q5M PRN Chest Pain Nitroglycerin 1 inch 11/29/19 00:00 11/29/19 07:08 Nitro-Bid Oint TOPICAL Not Given Q6HR PRASHANT Sodium Chloride 10 ml 11/29/19 09:00 Saline Flush IV BID PRASHANT Intake and Output 11/28/19 11/29/19 11/29/19 22:59 06:59 14:59 Other: Voiding Method Toilet Toilet # Voids 1 1 Weight 87.09 kg 11/28/19 21:09 11/28/19 21:09
[2019-11-29] MEDS ORDERED: ASPIRIN 81 MG PO SCH (09:00)
[2019-11-29] MEDS ORDERED: ISOSORBIDE MONONITRATE ER 30 MG TAB.ER.24H PO SCH (09:00)
[2019-11-29] MEDS ORDERED: ASPIRIN 325 MG TAB PO SCH (09:00)
[2019-11-29] MEDS ORDERED: CLOPIDOGREL 75 MG TAB PO SCH (09:00)
[2019-11-29] MEDS ORDERED: METOPROLOL SUCCINATE (ER) 25 MG TAB.ER.24H PO SCH (09:00)
[2019-11-29 09:20] VITALS: BP 122/72; PULSE 75; RESP 16; TEMP 97.6
[2019-11-29] MEDS ORDERED: AMINOPHYLLINE 500 MG/20 ML VIAL IV ONE (10:20)
--- NOTE | 2019-11-29 11:14 | P.STRESS ---
- Stress Test Note Stress Test Results/Findings: Exam Performed: NM stress lexiscan cardiolite Exam Date: 11/29/19 Reason for Exam: CHEST PAIN Height: 5 ft 8 in Weight: 87.09 kg Protocol: LEXISCAN Stage: N/A Duration of Exercise: 10 MINUTES Resting Heart Rate: 68 Resting Blood Pressure: 123/77 Maximum Achieved Heart Rate: 89 Maximum Achieved Blood Pressure: 144/87 85% PMHR: N/A 100% PMHR: N/A METS: N/A Technologist Comment: Stress Test Results/Findings: At baseline EKG showed normal sinus rhythm with a heart rate of 60 bpm, normal axis, nonspecific T-wave inversions and T wave flattening in leads 3 and aVF with occasional PVC. Patient recieved IV infusion of Lexiscan 0.4mg and at peak infusion EKG showed no significant change with continued T-wave inversions and flattening in leads 3 and aVF and occasional PVCs.. Conclusions: 1. Normal EKG response to Lexiscan infusion 2. Nuclear imaging to be reported separately.
--- NOTE | 2019-11-29 11:30 | P.HPIM ---
History of Present Illness H&P Date: 11/29/19 History and Physical and Discharge Summary History of Present Illness This is a 59-year-old male patient of Dr. Arias, Dr. De Luna and Dr. Hudson with past medical history of COPD, coronary artery disease status post stenting of the mid RCA with bare metal stent, hyperlipidemia, nicotine dependence, history of IV drug abuse, history of marijuana abuse, history of alcohol abuse. Patient states he was helping a friend move furniture and appliances into a new place and he started developing chest pain. It was in the sternal area nonradiating. He also was having heartburn and had episodes of feeling lightheaded. He was drinking 6-8 bottles of water or Gatorade. Chest pain seemed to be coming and going and he ended up taking the nitroglycerin and then came into the hospital. Patient came into [facility] emergency center for evaluation. Chest x-ray reveals no cardiopulmonary disease. WBC 10.7, hemoglobin 14.5, platelets 241, creatinine 0.89, troponin negative 3.on 3 draws. EKG normal sinus rhythm nonspecific ST-T wave abnormalities. Patient has been placed in the observation unit and cardiology consult requested. Patient has been seen by cardiology and a nuclear stress test has been ordered. If this is normal patient will be discharged home and follow up with Dr. De Luna. Lexiscan Cardiolite reveals abnormal transient ischemic dilatation may represent severe multivessel coronary artery disease. Fixed defect of the inferior wall on the stress and rest with normal wall motion likely represents attenuation artifact. No reversible perfusion abnormality. Ejection fraction 49%. Patient cleared by cardiology for discharge home. Review of Systems Constitutional: Denies chills, Denies fatigue, Denies fever, Denies poor appetite, Denies weight loss Eyes: denies blurred vision, denies pain Ears, nose, mouth and throat: Denies dysphagia, Denies headache, Denies nasal congestion, Denies nasal discharge, Denies sore throat Cardiovascular: Reports chest pain, Reports shortness of breath, Denies edema, Denies lightheadedness, Denies palpitations, Denies syncope Respiratory: Reports cough with sputum, Reports dyspnea, Reports wheezing, Denies cough, Denies excessive sputum, Denies hemoptysis, Denies home oxygen Gastrointestinal: Denies abdominal pain, Denies diarrhea, Denies nausea, Denies vomiting Genitourinary: Denies dysuria, Denies urinary frequency Musculoskeletal: Denies gait dysfunction, Denies muscle weakness, Denies myalgias Integumentary: Denies pruritus, Denies rash, Denies wounds Neurological: Denies change in mentation, Denies change in speech, Denies gait dysfunction, Denies numbness, Denies weakness Psychiatric: Denies anxiety, Denies depression Endocrine: Denies fatigue, Denies weight change Social history Patient was a smoker of up to 5-6 packs per day for over 2 years but smoked for a total of 43 years. He currently smokes 1 pack every 4-6 days He uses marijuana daily and edible form. He is recovering alcoholic and he drinks alcohol rarely at this point. He has history of illicit drug use including Phen-Fen, LSD, cocaine, heroin and quit all of this 9 years ago. 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 Family history Father at age 62 from lung cancer. He was a smoker. Mother at age 78 from brainstem cancer. Patient has one brother with history of abdominal aortic aneurysm. Patient has 4 sisters and he does not know their medical history. Patient has 1 son and 1 daughter living. He had 1 daughter that at 7 weeks old from a congenital heart defect. Physical Examination Gen: This is a 59-year-old male. He is resting in bed and appears to become: In no acute distress. HEENT: Head is atraumatic, normocephalic. Pupils equal, round. Sclerae is anicteric. NECK: Supple. No JVD. No lymphadenopathy. No thyromegaly. LUNGS: Clear to auscultation. No wheezes or rhonchi. No intercostal retractions. HEART: Regular rate and rhythm. No murmur. ABDOMEN: Soft. Bowel sounds are present. No masses. No tenderness. EXTREMITIES: No pedal edema. No calf tenderness. NEUROLOGICAL: Patient is awake, alert and oriented x3. Cranial nerves 2 through 12 are grossly intact. Assessment and Plan: 1. Acute chest pain with history of coronary artery disease. Consult with cardiology appreciated. Continue aspirin 81 mg daily, atorvastatin 30 mg at bedtime, Imdur 30 mg daily, Toprol-XL 25 mg daily. 2. History of coronary artery disease status post stenting of the mid RCA with bare metal stent. 3. COPD without exacerbation. Continue Perforomist twice daily, DuoNeb treatments every 6 hours scheduled and every 4 hours as needed, Solu-Medrol 60 mg IV every 6 hours. 4. Marijuana use and tobacco use and dependence. 5. Hypertension. Continue Lopressor 6. DVT prophylaxis. SADIE hose 7. GI prophylaxis. Pepcid. Patient placed as an observation status Discharge plan: Home Impression and plan of care have been directed as dictated by the signing physician. Daysi Nunn nurse practitioner acting as scribe for signing physician. Past Medical History Past Medical History: Coronary Artery Disease (CAD), COPD, Myocardial Infarction ([place]) Additional Past Medical History / Comment(s): Pt states he has hx of 3 respiratory arrests and was vented, generalized arthritis, Last Myocardial Infarction Date:: History of Any Multi-Drug Resistant Organisms: None Reported Past Surgical History: Adenoidectomy, Heart Catheterization With Stent, Hernia Repair, Joint Replacement, Orthopedic Surgery, Tonsillectomy Additional Past Surgical History / Comment(s): R inguinal hernia repair, L rotator cuff repair, bialteral total knee arthroplasties, R shoulder spur removal, teeth extracted, colonoscopy-normal. third hernia repair, left side Past Anesthesia/Blood Transfusion Reactions: No Reported Reaction Date of Last Stent Placement:: 2018 Past Psychological History: No Psychological Hx Reported Additional Psychological History / Comment(s): He uses no assistive devices. Smoking Status: Current every day smoker Past Alcohol Use History: None Reported Additional Past Alcohol Use History / Comment(s): patient quit smoking in 12/2018, but has restarted. He uses marijuana (edilbel) daily for pain. He is recovering alcoholic and he drinks alcohol rarely at this point. He has history of illicit drug use including Phen-Fen a means, LSD, cocaine, heroin and quit all of this 9 years ago. 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 Past Drug Use History: Marijuana Additional Drug Use History / Comment(s): He states in the past he has used marijuana, heroin, crystal meth, cocaine and crack but none of those drugs for about 9 yrs. - Past Family History Father Family Medical History: Cancer Additional Family Medical History / Comment(s): Father of lung cancer at the age of 62. He was a smoker. Mother Family Medical History: Diabetes Mellitus, Hypertension Additional Family Medical History / Comment(s): Mother at age 78 from brainstem cancer. Brother(s) Additional Family Medical History / Comment(s): Patient's 1 brother with history of AAA. Patient has 4 sisters and he does not know any of their medical histor y. Patient's 1 son and 1 daughter living. He had one daughter that at 7 weeks old from a congenital heart. Medications and Allergies Home Medications Medication Instructions Recorded Confirmed Type Albuterol Sulfate [Ventolin HFA] 2 puff INHALATION RT-Q6H PRN 09/07/14 11/28/19 History Albuterol Nebulized [Ventolin 2.5 mg INHALATION RT-Q4H PRN 03/03/16 11/28/19 History Nebulized] Arformoterol Tartrate [Brovana] 15 mcg INHALATION RT-BID 03/03/16 11/28/19 History Budesonide [Pulmicort] 0.5 mg INHALATION RT-BID 03/03/16 11/28/19 History Ipratropium Nebulized [Atrovent 0.5 mg INHALATION RT-BID 03/23/17 11/28/19 History Nebulized 0.2 MG/ML] Clopidogrel Bisulfate [Plavix] 75 mg PO DAILY #90 tab 12/30/18 11/28/19 Rx Aspirin EC [Ecotrin Low Dose] 81 mg PO DAILY 04/01/19 11/28/19 History Atorvastatin [Lipitor] 40 mg PO HS 04/07/19 11/28/19 History Montelukast [Singulair] 10 mg PO HS #30 tab 04/15/19 11/28/19 Rx Isosorbide Mononitrate ER [Imdur] 30 mg PO DAILY #30 tab.er.24h 05/01/19 11/28/19 Rx Metoprolol Succinate [Toprol XL] 25 mg PO DAILY 11/28/19 11/28/19 History Allergies Allergy/AdvReac Type Severity Reaction Status Date / Time levofloxacin [From Levaquin] AdvReac Nausea & Verified 11/28/19 20:51 Vomiting Physical Exam Vitals: Vital Signs Temp Pulse Pulse Resp BP BP Pulse Ox 11/29/19 09:06 72 11/29/19 09:00 97.6 F 75 16 122/72 97 11/29/19 08:54 71 97 11/29/19 04:50 98 F 80 20 106/69 95 11/28/19 22:38 97.9 F 77 18 103/65 97 11/28/19 22:26 98.0 F 79 18 139/73 95 11/28/19 22:00 87 16 127/74 96 11/28/19 20:49 98.3 F 91 20 126/92 96 Intake and Output 11/28/19 11/29/19 11/29/19 22:59 06:59 14:59 Other: Voiding Method Toilet Toilet # Voids 1 1 Weight 87.09 kg Results CBC & Chem 7: 11/28/19 21:09 11/28/19 21:09 Labs: Abnormal Lab Results - Last 24 Hours (Table) 11/28/19 11/28/19 11/29/19 Range/Units 21:09 21:09 03:26 WBC 10.7 H (3.8-10.6) k/uL Sodium 136 L (137-145) mmol/L Glucose 109 H (74-99) mg/dL HDL Cholesterol 32 L (40-60) mg/dL Thrombosis Risk Factor Assmnt - Choose All That Apply Any of the Below Risk Factors Present?: Yes Each Factor Represents 1 point: Abnormal pulmonary function (COPD), Age 41-60 years, Obesity (BMI >25) Thrombosis Risk Factor Assessment Total Risk Factor Score: 3 Thrombosis Risk Factor Assessment Level: Moderate Risk
--- NOTE | 2019-11-29 12:22 | NM ---
EXAMINATION TYPE: NM stress lexiscan cardiolite DATE OF EXAM: 11/29/2019 COMPARISON: NONE HISTORY: Chest pain. History of coronary artery disease. TECHNIQUE: After the intravenous administration of 9.7 mCi Tc 99m Sestamibi - Cardiolite resting SPE CT images acquired 50 minutes post injection. The patient received 0.4mg Lexiscan, 26.4 mCi Tc 99m Sestamibi - Stress images obtained [address] injection FINDINGS: Review of stress and rest SPECT images demonstrates decreased perfusion in both stress and rest of th e inferior wall, with normal wall motion, likely attenuation artifact. There is apical thinning. No r eversible perfusion abnormality. Gated analysis shows normal wall motion with an estimated left vent ricular ejection fraction of 49 %. TID 1.33 IMPRESSION: 1. Abnormal transient ischemic dilatation (TID 1.33) may represent severe multivessel coronary artery disease. 2. Fixed defect of the inferior wall on stress and rest, with normal wall motion, likely represents a ttenuation artifact. 3. No reversible perfusion abnormality. 4. Ejection fraction 49%.
[2019-11-29 13:17] VITALS: BMI 29.2
[2019-11-29] MEDS ORDERED: ATORVASTATIN 40 MG TAB PO SCH (21:00)
[2019-11-29] MEDS ORDERED: MONTELUKAST 10 MG TAB PO SCH (21:00)
== END 2019-11-29 13:56 | disposition home or self-care (01) ==
LOC: EC 20:41 → 3NCARDOBS 22:13
PROVIDERS: ADMIT Internal Medicine; ATTEND Internal Medicine
DX: R07.89 Other chest pain (principal); R42 Dizziness and giddiness; R12 Heartburn; R06.02 Shortness of breath; R61 Generalized hyperhidrosis; R94.31 Abnormal electrocardiogram [ECG] [EKG]; R94.39 Abnormal result of other cardiovascular function study; I49.3 Ventricular premature depolarization; I25.10 Atherosclerotic heart disease of native coronary artery without angina pectoris; J44.9 Chronic obstructive pulmonary disease, unspecified; I10 Essential (primary) hypertension; I25.2 Old myocardial infarction; E78.5 Hyperlipidemia, unspecified; F17.210 Nicotine dependence, cigarettes, uncomplicated; M15.9 Polyosteoarthritis, unspecified; E66.9 Obesity, unspecified; Z68.29 Body mass index [BMI] 29.0-29.9, adult; Z95.5 Presence of coronary angioplasty implant and graft; Z79.899 Other long term (current) drug therapy; Z79.51 Long term (current) use of inhaled steroids; Z79.82 Long term (current) use of aspirin; Z79.02 Long term (current) use of antithrombotics/antiplatelets; Z88.1 Allergy status to other antibiotic agents; Z87.09 Personal history of other diseases of the respiratory system; Z90.89 Acquired absence of other organs; Z98.890 Other specified postprocedural states; Z96.653 Presence of artificial knee joint, bilateral; Z87.39 Personal history of other diseases of the musculoskeletal system and connective tissue; Z87.19 Personal history of other diseases of the digestive system; Z77.090 Contact with and (suspected) exposure to asbestos; Z80.1 Family history of malignant neoplasm of trachea, bronchus and lung; Z81.2 Family history of tobacco abuse and dependence; Z83.3 Family history of diabetes mellitus; Z82.49 Family history of ischemic heart disease and other diseases of the circulatory system; Z80.8 Family history of malignant neoplasm of other organs or systems; Z82.79 Family history of other congenital malformations, deformations and chromosomal abnormalities
CPT/HCPCS: 93005 ×2; 99285; 36415; 94640; 94760; 93017; 85379; 80061; 80053; 83735; 84484 ×2; 85025; 85610; 85730; 71046; 78452; G0378 ×2; A9500; J0280; J2785

== ENCOUNTER → 2020-03-04 | Outpatient (CLI) | payer MEDICARE, OTHER ==
[2020-03-04 12:23] LABS: HCT 45.4 % (39.0-53.0); HGB 15.7 gm/dL (13.0-17.5); MCH 30.4 pg (25.0-35.0); MCHC 34.5 g/dL (31.0-37.0); MCV 88.1 fL (80.0-100.0); Mean Platelet Volume 7.7; Platelet Count 225 k/uL (150-450); RBC 5.16 m/uL (4.30-5.90); RDW 12.9 % (11.5-15.5); WBC 9.1 k/uL (3.8-10.6)
[2020-03-04 19:10] LABS: African American GFR (CKD) 95.7 (60.0-200.0); Anion Gap 7.1 mmol/L (4.00-12.00); Calcium 9.2 mg/dL (8.7-10.3); Carbon Dioxide 24.9 mmol/L (21.6-31.8); Non-African American GFR(CKD) 82.6 (60.0-200.0); Potassium 4.6 mmol/L (3.5-5.5)
== END | disposition home or self-care (01) ==
LOC: LABWHC1 10:46
PROVIDERS: ATTEND Anesthesiology
DX: Z01.818 Encounter for other preprocedural examination (principal)
CPT/HCPCS: 36415; 80048; 85027

== ENCOUNTER → 2020-03-21 | Outpatient (CLI) | payer MEDICARE, OTHER ==
[2020-03-21 14:48] LABS: African American GFR (CKD) 108.7 (60.0-200.0); BUN/Creat Ratio 17.78 Ratio (12.00-20.00); Calcium 9.6 mg/dL (8.7-10.3); Chol/HDL Ratio 4.74; LDL Cholesterol,Calculated 120.6 mg/dL (0.0-131.0); Magnesium 2.1 mg/dL (1.5-2.4); Non-African American GFR(CKD) 93.8 (60.0-200.0); Potassium 4.6 mmol/L (3.5-5.5); VLDL Calculation 21.4 mg/dL (5.00-40.00)
== END | disposition home or self-care (01) ==
LOC: LABWHC1 08:15
PROVIDERS: ATTEND Nurse Practitioner Adult Health
DX: I10 Essential (primary) hypertension (principal); E78.5 Hyperlipidemia, unspecified
CPT/HCPCS: 36415; 80048; 80061; 83735

== ENCOUNTER 2020-04-20 02:54 | Emergency (ER) | payer MEDICARE, OTHER ==
[2020-04-20 03:04] VITALS: RESP 18
--- NOTE | 2020-04-20 03:43 | ED ---
ENT HPI - General Chief complaint: ENT Stated complaint: Ear Pain Time Seen by Provider: 04/20/20 03:02 Source: patient, EMS Mode of arrival: EMS Limitations: no limitations - History of Present Illness Initial comments: This patient is a 59-year-old man who is transferred here from [facility] for purpose of having ENT consultation related to right mastoiditis with failed outpatient treatment. The patient states that he started having pains probably about 3 weeks ago. He was seen by Dr. Roberto from ENT in the second week of March and again on April 17. The patient states she has been using antibiotic drops in the right ear but does not recall name the medication. He continued to have pain and went to [facility] where they performed computed tomography scan showing the patient continues to have mastoiditis and they transferred him here. Patient has receive dose of vancomycin. MD complaint: ear pain -: week(s) Location: R ear Severity: moderate Quality: aching Consistency: constant Improves with: none Worsens with: none Associated Symptoms: discharge from ear, other - Related Data Home Medications Medication Instructions Recorded Confirmed Albuterol Sulfate [Ventolin HFA] 2 puff INHALATION RT-Q6H PRN 09/07/14 04/22/20 Albuterol Nebulized [Ventolin 2.5 mg INHALATION RT-Q4H PRN 03/03/16 04/22/20 Nebulized] Arformoterol Tartrate [Brovana] 15 mcg INHALATION RT-BID 03/03/16 04/22/20 Budesonide [Pulmicort] 0.5 mg INHALATION RT-BID 03/03/16 04/22/20 Ipratropium Nebulized [Atrovent 0.5 mg INHALATION RT-BID 03/23/17 04/22/20 Nebulized 0.2 MG/ML] Aspirin EC [Ecotrin Low Dose] 81 mg PO DAILY 04/01/19 04/22/20 Atorvastatin [Lipitor] 40 mg PO HS 04/07/19 04/22/20 Acetaminophen [Tylenol Arthritis] 650 mg PO Q4H PRN 04/22/20 04/22/20 Ciclopirox Olamine [Loprox 0.77% 1 applic TOPICAL BID 04/22/20 04/22/20 cream] Griseofulvin, Microsize 500 mg PO BID 04/22/20 04/22/20 [Griseofulvin] Hydrocortisone Cream 1 applic TOPICAL DAILY PRN 04/22/20 04/22/20 [Hydrocortisone 2.5% Cream] Ketoconazole 2% Cream [Nizoral 2%] 1 applic TOPICAL BID 04/22/20 04/22/20 Metoprolol Tartrate [Lopressor] 50 mg PO DAILY 04/22/20 04/22/20 Nitroglycerin Sl Tabs [Nitrostat] 0.4 mg SUBLINGUAL Q5M PRN 04/22/20 04/22/20 Ofloxacin 0.3% Ophth Soln [Ocuflox 10 drops RIGHT EAR BID 04/22/20 04/22/20 Ophth Soln] fluocinolone acetonide oiL 5 drops RIGHT EAR BID PRN 04/22/20 04/22/20 [Fluocinolone Acetonide Oil (Otic)] Previous Rx's Medication Instructions Recorded Clopidogrel Bisulfate [Plavix] 75 mg PO DAILY #90 tab 12/30/18 Montelukast [Singulair] 10 mg PO HS #30 tab 04/15/19 Isosorbide Mononitrate ER [Imdur] 30 mg PO DAILY #30 tab.er.24h 05/01/19 Amoxicillin/Potassium Clav 1 tab PO Q12HR 1 Days #20 tab 04/20/20 [Augmentin 875-125 Tablet] Allergies Allergy/AdvReac Type Severity Reaction Status Date / Time levofloxacin [From Levaquin] AdvReac Nausea & Verified 04/22/20 18:40 Vomiting Review of Systems ROS Statement: Those systems with pertinent positive or pertinent negative responses have been documented in the HPI. ROS Other: All systems not noted in ROS Statement are negative. Constitutional: Denies: fever, chills Eyes: Denies: eye pain ENT: Reports: as per HPI, ear pain, hearing loss Respiratory: Denies: cough, dyspnea Cardiovascular: Denies: chest pain, palpitations Gastrointestinal: Denies: abdominal pain, vomiting, diarrhea Genitourinary: Denies: dysuria Musculoskeletal: Denies: back pain Skin: Denies: rash Neurological: Reports: headache. Denies: weakness, numbness, paresthesias, confusion Past Medical History Past Medical History: Coronary Artery Disease (CAD), COPD, Myocardial Infarction (ID) Additional Past Medical History / Comment(s): Pt states he has hx of 3 respiratory arrests and was vented, generalized arthritis, Last Myocardial Infarction Date:: History of Any Multi-Drug Resistant Organisms: None Reported Past Surgical History: Adenoidectomy, Heart Catheterization With Stent, Hernia Repair, Joint Replacement, Orthopedic Surgery, Tonsillectomy Additional Past Surgical History / Comment(s): R inguinal hernia repair, L rotator cuff repair, bialteral total knee arthroplasties, R shoulder spur removal, teeth extracted, colonoscopy-normal. third hernia repair, left side Past Anesthesia/Blood Transfusion Reactions: No Reported Reaction Date of Last Stent Placement:: 2018 Past Psychological History: No Psychological Hx Reported Smoking Status: Current some day smoker Past Alcohol Use History: Occasional Past Drug Use History: Marijuana - Past Family History Father Family Medical History: Cancer Additional Family Medical History / Comment(s): Father of lung cancer at the age of 62. He was a smoker. Mother Family Medical History: Diabetes Mellitus, Hypertension Additional Family Medical History / Comment(s): Mother at age 78 from brainstem cancer. Brother(s) Additional Family Medical History / Comment(s): Patient's 1 brother with history of AAA. Patient has 4 sisters and he does not know any of their medical history. Patient's 1 son and 1 daughter living. He had one daughter that at 7 weeks old from a congenital heart. General Exam Limitations: no limitations General appearance: alert, in no apparent distress Head exam: Present: atraumatic, normocephalic Eye exam: Present: normal appearance. Absent: scleral icterus, conjunctival injection ENT exam: Present: other (Post auricular tenderness on the right side.). Absent: TM's normal bilaterally (Unable to visualize right TM there is some clear drainage versus patient's medication), normal external ear exam Neck exam: Present: normal inspection, full ROM. Absent: tenderness, meningismus, lymphadenopathy Respiratory exam: Present: normal lung sounds bilaterally. Absent: respiratory distress, wheezes, rales, rhonchi, stridor Cardiovascular Exam: Present: regular rate, normal rhythm, normal heart sounds. Absent: systolic murmur, diastolic murmur, rubs, gallop GI/Abdominal exam: Present: soft. Absent: distended, tenderness, guarding, rebound, rigid, mass Extremities exam: Present: normal inspection, normal capillary refill. Absent: pedal edema, calf tenderness Neurological exam: Present: alert Skin exam: Present: warm, dry, intact, normal color. Absent: rash Course Vital Signs 04/20/20 04/20/20 04/20/20 02:56 04:42 06:30 Temperature 97.7 F 97.9 F 98.1 F Pulse Rate 76 84 74 Respiratory 18 18 18 Rate Blood Pressure 141/83 105/60 145/91 O2 Sat by Pulse 98 99 96 Oximetry Medical Decision Making - Medical Decision Making This patient is a 59-year-old man transferred here from [facility] in relation to right mastoiditis. Patient currently receiving topical antibiotics only After arrival here, I discussed the patient's case with on-call ENT, Dr. Kern. He believes that the patient's antibiotic coverage is inadequate and would like patient treated with additional coverage. He would like the patient to continue antibiotics and follow with Dr. Roberto Wednesday. I discussed all this with the patient, who is feeling better after receiving ketorolac. We discussed appropriate further care and follow-up as well as return parameters Disposition Clinical Impression: Mastoiditis Disposition: HOME SELF-CARE Condition: Good Instructions (If sedation given, give patient instructions): Mastoiditis (ED) Prescriptions: Amoxicillin/Potassium Clav [Augmentin 875-125 Tablet] 1 tab PO Q12HR 1 Days #20 tab Is patient prescribed a controlled substance at d/c from ED?: No Referrals: Bear Arias MD [Primary Care Provider] - 1-2 days Tyshawn Roberto MD [STAFF PHYSICIAN] - 1-2 days
[2020-04-20] MEDS ORDERED: SULFAMETHOX-TMP 800-160MG 1 EACH TAB PO STA (04:57)
[2020-04-20] MEDS ORDERED: AMPICILLIN-SULBACTAM 3 GM in SODIUM CHLORIDE 0.9% 100 ML IVPB STA (04:58)
[2020-04-20] MEDS ORDERED: KETOROLAC 15 MG/ML 1 ML VIAL IVP STA (06:47)
[2020-04-20 06:58] VITALS: BP 145/91; PULSE 74; TEMP 98.1
== END 2020-04-20 07:08 | disposition home or self-care (01) ==
LOC: EC 02:54
DX: H70.91 Unspecified mastoiditis, right ear (principal); J44.9 Chronic obstructive pulmonary disease, unspecified; I25.10 Atherosclerotic heart disease of native coronary artery without angina pectoris; I25.2 Old myocardial infarction; M19.90 Unspecified osteoarthritis, unspecified site; F17.200 Nicotine dependence, unspecified, uncomplicated; Z79.51 Long term (current) use of inhaled steroids; Z79.82 Long term (current) use of aspirin; Z79.899 Other long term (current) drug therapy; Z88.1 Allergy status to other antibiotic agents; Z95.5 Presence of coronary angioplasty implant and graft; Z90.89 Acquired absence of other organs; Z96.653 Presence of artificial knee joint, bilateral
CPT/HCPCS: 99283 ×2; 96365 ×2; 96375 ×2; 36415; 87040; 87070; 87205; J0295; J1885

== ENCOUNTER 2020-04-22 17:25 | Emergency (ER) | payer MEDICARE, OTHER ==
[2020-04-22 17:29] VITALS: TEMP 98.2
[2020-04-22] MEDS ORDERED: HYDROmorphone 1 MG/ML 1 ML SYRINGE IVP STA (17:39)
--- NOTE | 2020-04-22 17:42 | ED ---
General Adult HPI - General Chief complaint: Headache Stated complaint: Revisit - ENT Time Seen by Provider: 04/22/20 17:30 Source: patient, RN notes reviewed Mode of arrival: ambulatory Limitations: no limitations - History of Present Illness Initial comments: Patient is a pleasant 59-year-old male presenting to the emergency Department with right ear discomfort. Onset of symptoms was a few weeks ago. Discomfort is mostly behind the right ear. Patient was seen at a different facility and had CAT scan done diagnosed with mastoiditis. Patient did come here and was discharged on 2 antibiotics, Augmentin and Bactrim. Patient states he is having increasing discomfort since that time. Patient is having headaches associated with it. Patient was having some drainage from his ear however that has stopped. No fevers. - Related Data Home Medications Medication Instructions Recorded Confirmed Albuterol Sulfate [Ventolin HFA] 2 puff INHALATION RT-Q6H PRN 09/07/14 04/22/20 Albuterol Nebulized [Ventolin 2.5 mg INHALATION RT-Q4H PRN 03/03/16 04/22/20 Nebulized] Arformoterol Tartrate [Brovana] 15 mcg INHALATION RT-BID 03/03/16 04/22/20 Budesonide [Pulmicort] 0.5 mg INHALATION RT-BID 03/03/16 04/22/20 Ipratropium Nebulized [Atrovent 0.5 mg INHALATION RT-BID 03/23/17 04/22/20 Nebulized 0.2 MG/ML] Aspirin EC [Ecotrin Low Dose] 81 mg PO DAILY 04/01/19 04/22/20 Atorvastatin [Lipitor] 40 mg PO HS 04/07/19 04/22/20 Acetaminophen [Tylenol Arthritis] 650 mg PO Q4H PRN 04/22/20 04/22/20 Ciclopirox Olamine [Loprox 0.77% 1 applic TOPICAL BID 04/22/20 04/22/20 cream] Griseofulvin, Microsize 500 mg PO BID 04/22/20 04/22/20 [Griseofulvin] Hydrocortisone Cream 1 applic TOPICAL DAILY PRN 04/22/20 04/22/20 [Hydrocortisone 2.5% Cream] Ketoconazole 2% Cream [Nizoral 2%] 1 applic TOPICAL BID 04/22/20 04/22/20 Metoprolol Tartrate [Lopressor] 50 mg PO DAILY 04/22/20 04/22/20 Nitroglycerin Sl Tabs [Nitrostat] 0.4 mg SUBLINGUAL Q5M PRN 04/22/20 04/22/20 Ofloxacin 0.3% Ophth Soln [Ocuflox 10 drops RIGHT EAR BID 04/22/20 04/22/20 Ophth Soln] fluocinolone acetonide oiL 5 drops RIGHT EAR BID PRN 04/22/20 04/22/20 [Fluocinolone Acetonide Oil (Otic)] Previous Rx's Medication Instructions Recorded Clopidogrel Bisulfate [Plavix] 75 mg PO DAILY #90 tab 12/30/18 Montelukast [Singulair] 10 mg PO HS #30 tab 04/15/19 Isosorbide Mononitrate ER [Imdur] 30 mg PO DAILY #30 tab.er.24h 05/01/19 Amoxicillin/Potassium Clav 1 tab PO Q12HR 1 Days #20 tab 04/20/20 [Augmentin 875-125 Tablet] Allergies Allergy/AdvReac Type Severity Reaction Status Date / Time levofloxacin [From Levaquin] AdvReac Nausea & Verified 04/22/20 18:40 Vomiting Review of Systems ROS Statement: Those systems with pertinent positive or pertinent negative responses have been documented in the HPI. ROS Other: All systems not noted in ROS Statement are negative. Constitutional: Denies: fever Eyes: Denies: eye pain ENT: Reports: as per HPI Respiratory: Denies: cough Cardiovascular: Denies: chest pain Endocrine: Denies: fatigue Gastrointestinal: Denies: abdominal pain Genitourinary: Denies: dysuria Musculoskeletal: Denies: back pain Skin: Denies: rash Past Medical History Past Medical History: Coronary Artery Disease (CAD), COPD, Myocardial Infarction (MD) Additional Past Medical History / Comment(s): Pt states he has hx of 3 respiratory arrests and was vented, generalized arthritis, Last Myocardial Infarction Date:: History of Any Multi-Drug Resistant Organisms: None Reported Past Surgical History: Adenoidectomy, Heart Catheterization With Stent, Hernia Repair, Joint Replacement, Orthopedic Surgery, Tonsillectomy Additional Past Surgical History / Comment(s): R inguinal hernia repair, L rotator cuff repair, bialteral total knee arthroplasties, R shoulder spur removal, teeth extracted, colonoscopy-normal. third hernia repair, left side Past Anesthesia/Blood Transfusion Reactions: No Reported Reaction Date of Last Stent Placement:: 2018 Past Psychological History: No Psychological Hx Reported Smoking Status: Current some day smoker Past Alcohol Use History: Rare Past Drug Use History: Marijuana - Past Family History Father Family Medical History: Cancer Additional Family Medical History / Comment(s): Father of lung cancer at the age of 62. He was a smoker. Mother Family Medical History: Diabetes Mellitus, Hypertension Additional Family Medical History / Comment(s): Mother at age 78 from brainstem cancer. Brother(s) Additional Family Medical History / Comment(s): Patient's 1 brother with history of AAA. Patient has 4 sisters and he does not know any of their medical history. Patient's 1 son and 1 daughter living. He had one daughter that at 7 weeks old from a congenital heart. General Exam Limitations: no limitations General appearance: alert Head exam: Present: atraumatic Eye exam: Present: normal appearance ENT exam: Present: other (Moderate tenderness right mastoid. There is mild erythema of the external auditory canal.) Neck exam: Present: normal inspection Respiratory exam: Present: normal lung sounds bilaterally Cardiovascular Exam: Present: regular rate, normal rhythm Extremities exam: Present: normal inspection Neurological exam: Present: alert, CN II-XII intact Psychiatric exam: Present: normal affect, normal mood Skin exam: Present: normal color Course Vital Signs 04/22/20 17:26 Temperature 98.2 F Pulse Rate 96 Respiratory 18 Rate Blood Pressure 151/82 O2 Sat by Pulse 97 Oximetry - Reevaluation(s) Reevaluation #1: 04/22/20 18:20 CT report reviewed from 04/20 with impression of right mastoiditis, otitis externa, media, and internal. Medical Decision Making - Medical Decision Making Patient reevaluated and is feeling better. Patient updated on results. Case was discussed with Dr. Flores, covering for Dr. Arias who feels patient can be discharged and to continue Augmentin. He feels there is similar value between Augmentin and IV antibiotics. Patient is comfortable with discharge home. Patient is advised to return if symptoms worsen and need for close follow-up. Patient is advised to continue antibiotics. - Lab Data Result diagrams: 04/22/20 18:17 01/25/21 18:17 Lab Results 04/22/20 04/22/20 04/22/20 Range/Units 18:17 18:17 18:17 WBC 8.1 (3.8-10.6) k/uL RBC 5.03 (4.30-5.90) m/uL Hgb 14.7 (13.0-17.5) gm/dL Hct 43.8 (39.0-53.0) % MCV 87.2 (80.0-100.0) fL MCH 29.3 (25.0-35.0) pg MCHC 33.6 (31.0-37.0) g/dL RDW 13.4 (11.5-15.5) % Plt Count 239 (150-450) k/uL MPV 7.9 Neutrophils % 62 % Lymphocytes % 30 % Monocytes % 4 % Eosinophils % 2 % Basophils % 1 % Neutrophils # 5.0 (1.3-7.7) k/uL Lymphocytes # 2.4 (1.0-4.8) k/uL Monocytes # 0.3 (0-1.0) k/uL Eosinophils # 0.2 (0-0.7) k/uL Basophils # 0.1 (0-0.2) k/uL ESR 18 H (0-15) mm/hr PT 9.6 (9.0-12.0) sec INR 0.9 (<1.2) APTT 23.1 (22.0-30.0) sec Sodium 138 (137-145) mmol/L Potassium 3.7 (3.5-5.1) mmol/L Chloride 104 (98-107) mmol/L Carbon Dioxide 24 (22-30) mmol/L Anion Gap 10 mmol/L BUN 22 H (9-20) mg/dL Creatinine 1.48 H (0.66-1.25) mg/dL Est GFR (CKD-EPI)AfAm 60 (>60 ml/min/1.73 sqM) Est GFR (CKD-EPI)NonAf 52 (>60 ml/min/1.73 sqM) Glucose 124 H (74-99) mg/dL Plasma Lactic Acid Rito (0.7-2.0) mmol/L Calcium 9.5 (8.4-10.2) mg/dL Total Bilirubin 0.4 (0.2-1.3) mg/dL AST 21 (17-59) U/L ALT 18 (4-49) U/L Alkaline Phosphatase 116 (38-126) U/L Total Protein 6.9 (6.3-8.2) g/dL Albumin 4.1 (3.5-5.0) g/dL 04/22/20 Range/Units 18:17 WBC (3.8-10.6) k/uL RBC (4.30-5.90) m/uL Hgb (13.0-17.5) gm/dL Hct (39.0-53.0) % MCV (80.0-100.0) fL MCH (25.0-35.0) pg MCHC (31.0-37.0) g/dL RDW (11.5-15.5) % Plt Count (150-450) k/uL MPV Neutrophils % % Lymphocytes % % Monocytes % % Eosinophils % % Basophils % % Neutrophils # (1.3-7.7) k/uL Lymphocytes # (1.0-4.8) k/uL Monocytes # (0-1.0) k/uL Eosinophils # (0-0.7) k/uL Basophils # (0-0.2) k/uL ESR (0-15) mm/hr PT (9.0-12.0) sec INR (<1.2) APTT (22.0-30.0) sec Sodium (137-145) mmol/L Potassium (3.5-5.1) mmol/L Chloride (98-107) mmol/L Carbon Dioxide (22-30) mmol/L Anion Gap mmol/L BUN (9-20) mg/dL Creatinine (0.66-1.25) mg/dL Est GFR (CKD-EPI)AfAm (>60 ml/min/1.73 sqM) Est GFR (CKD-EPI)NonAf (>60 ml/min/1.73 sqM) Glucose (74-99) mg/dL Plasma Lactic Acid Rito 1.1 (0.7-2.0) mmol/L Calcium (8.4-10.2) mg/dL Total Bilirubin (0.2-1.3) mg/dL AST (17-59) U/L ALT (4-49) U/L Alkaline Phosphatase (38-126) U/L Total Protein (6.3-8.2) g/dL Albumin (3.5-5.0) g/dL Disposition Clinical Impression: Mastoiditis Disposition: HOME SELF-CARE Condition: Stable Instructions (If sedation given, give patient instructions): Mastoiditis (ED) Additional Instructions: Continue antibiotics. Please follow-up with primary care physician and ENT in the next day or 2 for recheck. Return for increased pain, fever, worsening sy mptoms or other concerns. Is patient prescribed a controlled substance at d/c from ED?: No Referrals: Bear Arias MD [Primary Care Provider] - 1-2 days Time of Disposition: 19:57
[2020-04-22] MEDS ORDERED: SODIUM CHLORIDE 0.9% 1,000 ML IV SCH (17:45)
[2020-04-22 18:26] LABS: Basophils # (A) 0.1 k/uL (0-0.2); Basophils % (A) 1 %; Eosinophils # (A) 0.2 k/uL (0-0.7); Eosinophils % (A) 2 %; HCT 43.8 % (39.0-53.0); HGB 14.7 gm/dL (13.0-17.5); Lymphocytes # (A) 2.4 k/uL (1.0-4.8); Lymphocytes % (A) 30 %; MCH 29.3 pg (25.0-35.0); MCHC 33.6 g/dL (31.0-37.0); MCV 87.2 fL (80.0-100.0); Mean Platelet Volume 7.9; Monocytes # (A) 0.3 k/uL (0-1.0); Monocytes % (A) 4 %; Neutrophils % (A) 62 %; Platelet Count 239 k/uL (150-450); RBC 5.03 m/uL (4.30-5.90); RDW 13.4 % (11.5-15.5); WBC 8.1 k/uL (3.8-10.6)
[2020-04-22 18:37] LABS: Albumin 4.1 g/dL (3.5-5.0); Calcium 9.5 mg/dL (8.4-10.2); INR 0.9 (<1.2); Partial Thromboplastin Time 23.1 sec (22.0-30.0); Potassium 3.7 mmol/L (3.5-5.1); Prothrombin Time 9.6 sec (9.0-12.0); Total Bilirubin 0.4 mg/dL (0.2-1.3); Total Protein 6.9 g/dL (6.3-8.2)
[2020-04-22 19:16] LABS: Erythrocyte Sedimentation Rate 18 mm/hr (0-15)
[2020-04-22] MEDS ORDERED: AMPICILLIN-SULBACTAM 1.5 GM in SODIUM CHLORIDE 0.9% 50 ML IVPB STA (19:50)
[2020-04-22] MEDS ORDERED: ACET/COD 300 MG/30 MG STARTER PACK 6 TAB BTL PO STA (19:57)
[2020-04-22 20:59] VITALS: BP 140/79; PULSE 88; RESP 16
== END 2020-04-22 20:59 | disposition home or self-care (01) ==
LOC: EC 17:25
DX: H70.91 Unspecified mastoiditis, right ear (principal); F17.200 Nicotine dependence, unspecified, uncomplicated; I25.10 Atherosclerotic heart disease of native coronary artery without angina pectoris; J44.9 Chronic obstructive pulmonary disease, unspecified; I25.2 Old myocardial infarction; M19.90 Unspecified osteoarthritis, unspecified site; Z79.51 Long term (current) use of inhaled steroids; Z79.82 Long term (current) use of aspirin; Z79.899 Other long term (current) drug therapy; Z88.1 Allergy status to other antibiotic agents; Z95.5 Presence of coronary angioplasty implant and graft; Z96.653 Presence of artificial knee joint, bilateral
CPT/HCPCS: 36415; 80053; 85652; 83605; 85025; 85610; 85730; 87040; 99284; 96365; 96375; 96361 ×2; J1170; J0295

== ENCOUNTER 2020-04-24 22:38 | Inpatient (IN) | payer MEDICARE, OTHER ==
[2020-04-24] MEDS ORDERED: MECLIZINE 12.5 MG TAB PO STA (23:13)
[2020-04-24] MEDS ORDERED: ONDANSETRON 4 MG/2 ML VIAL IVP STA (23:13)
[2020-04-24] MEDS ORDERED: HYDROmorphone 1 MG/ML 1 ML SYRINGE IVP STA (23:13)
[2020-04-24] MEDS ORDERED: SODIUM CHLORIDE 0.9% 1,000 ML IV ONE (23:13)
--- NOTE | 2020-04-24 23:20 | ED ---
General Adult HPI - General Chief complaint: Eye Problems Stated complaint: dizziness Time Seen by Provider: 04/24/20 22:48 Source: patient, EMS Mode of arrival: EMS Limitations: no limitations - History of Present Illness Initial comments: 59-year-old male patient presents to the emergency department today for evaluation of right ear pain radiating to the right eye. Patient is also reporting dizziness. Patient was diagnosed with mastoiditis about a month ago. He was started on antibiotics and eardrops. This is the patient's third visit to the emergency department for worsening symptoms related to this. Was seen at [facility] initially and had CT confirming mastoiditis on the right side. States when symtoms worsened today he did attempt to take [place] at home without relief. States his dizziness is much worse today than it has been. Denies any nausea or vomiting. Denies fever or chills. Denies any blurred or double vision just states that he is very sensitive to the light. Patient denies any recent rash, cough, shortness of breath, chest pain, abdominal pain, nausea, vomiting, diarrhea, constipation, back pain, numbness, tingling, hematuria, dysuria, urinary urgency, urinary frequency, or any other complaints. - Related Data Home Medications Medication Instructions Recorded Confirmed Albuterol Sulfate [Ventolin HFA] 2 puff INHALATION RT-Q6H PRN 09/07/14 04/22/20 Albuterol Nebulized [Ventolin 2.5 mg INHALATION RT-Q4H PRN 03/03/16 04/22/20 Nebulized] Arformoterol Tartrate [Brovana] 15 mcg INHALATION RT-BID 03/03/16 04/22/20 Budesonide [Pulmicort] 0.5 mg INHALATION RT-BID 03/03/16 04/22/20 Ipratropium Nebulized [Atrovent 0.5 mg INHALATION RT-BID 03/23/17 04/22/20 Nebulized 0.2 MG/ML] Aspirin EC [Ecotrin Low Dose] 81 mg PO DAILY 04/01/19 04/22/20 Atorvastatin [Lipitor] 40 mg PO HS 04/07/19 04/22/20 Acetaminophen [Tylenol Arthritis] 650 mg PO Q4H PRN 04/22/20 04/22/20 Ciclopirox Olamine [Loprox 0.77% 1 applic TOPICAL BID 04/22/20 04/22/20 cream] Griseofulvin, Microsize 500 mg PO BID 04/22/20 04/22/20 [Griseofulvin] Hydrocortisone Cream 1 applic TOPICAL DAILY PRN 04/22/20 04/22/20 [Hydrocortisone 2.5% Cream] Ketoconazole 2% Cream [Nizoral 2%] 1 applic TOPICAL BID 04/22/20 04/22/20 Metoprolol Tartrate [Lopressor] 50 mg PO DAILY 04/22/20 04/22/20 Nitroglycerin Sl Tabs [Nitrostat] 0.4 mg SUBLINGUAL Q5M PRN 04/22/20 04/22/20 Ofloxacin 0.3% Ophth Soln [Ocuflox 10 drops RIGHT EAR BID 04/22/20 04/22/20 Ophth Soln] fluocinolone acetonide oiL 5 drops RIGHT EAR BID PRN 04/22/20 04/22/20 [Fluocinolone Acetonide Oil (Otic)] Previous Rx's Medication Instructions Recorded Clopidogrel Bisulfate [Plavix] 75 mg PO DAILY #90 tab 12/30/18 Montelukast [Singulair] 10 mg PO HS #30 tab 04/15/19 Isosorbide Mononitrate ER [Imdur] 30 mg PO DAILY #30 tab.er.24h 05/01/19 Amoxicillin/Potassium Clav 1 tab PO Q12HR 1 Days #20 tab 04/20/20 [Augmentin 875-125 Tablet] Allergies Allergy/AdvReac Type Severity Reaction Status Date / Time levofloxacin [From Levaquin] AdvReac Nausea & Verified 04/22/20 18:40 Vomiting Review of Systems ROS Statement: Those systems with pertinent positive or pertinent negative responses have been documented in the HPI. ROS Other: All systems not noted in ROS Statement are negative. Past Medical History Past Medical History: Coronary Artery Disease (CAD), COPD, Myocardial Infarction ([place]) Additional Past Medical History / Comment(s): Pt states he has hx of 3 respiratory arrests and was vented, generalized arthritis, Last Myocardial Infarction Date:: History of Any Multi-Drug Resistant Organisms: None Reported Past Surgical History: Adenoidectomy, Heart Catheterization With Stent, Hernia Repair, Joint Replacement, Orthopedic Surgery, Tonsillectomy Additional Past Surgical History / Comment(s): R inguinal hernia repair, L rotator cuff repair, bialteral total knee arthroplasties, R shoulder spur removal, teeth extracted, colonoscopy-normal. third hernia repair, left side Past Anesthesia/Blood Transfusion Reactions: No Reported Reaction Date of Last Stent Placement:: 2018 Past Psychological History: No Psychological Hx Reported Smoking Status: Current some day smoker Past Alcohol Use History: Rare Past Drug Use History: Marijuana - Past Family History Father Family Medical History: Cancer Additional Family Medical History / Comment(s): Father of lung cancer at the age of 62. He was a smoker. Mother Family Medical History: Diabetes Mellitus, Hypertension Additional Family Medical History / Comment(s): Mother at age 78 from brainstem cancer. Brother(s) Additional Family Medical History / Comment(s): Patient's 1 brother with history of AAA. Patient has 4 sisters and he does not know any of their medical history. Patient's 1 son and 1 daughter living. He had one daughter that at 7 weeks old from a congenital heart. General Exam Limitations: no limitations General appearance: alert, other (This is a well-developed, well-nourished adult male patient in mild distress related to pain. Vital signs upon presentation are temperature 98.1F, pulse 103, respirations 18, blood pressure 142/105, pulse ox 97% on room air.) Eye exam: Present: normal appearance, PERRL, EOMI. Absent: scleral icterus, conjunctival injection, periorbital swelling ENT exam: Present: normal oropharynx, mucous membranes moist, TM's normal bilaterally, other (Right otitis externa noted, canal erythema, white discharge) Neck exam: Present: normal inspection. Absent: tenderness, meningismus, lymphadenopathy Respiratory exam: Present: normal lung sounds bilaterally. Absent: respiratory distress, wheezes, rales, rhonchi, stridor Cardiovascular Exam: Present: regular rate, normal rhythm, normal heart sounds. Absent: systolic murmur, diastolic murmur, rubs, gallop, clicks GI/Abdominal exam: Present: soft, normal bowel sounds. Absent: distended, tenderness, guarding, rebound, rigid Neurological exam: Present: alert, oriented X3, CN II-XII intact Expanded Speech: Present: fluid speech Cranial nerves: EOM's Intact: Normal, Nystagmus: Normal Motor strength exam: RUE: 5, LUE: 5, RLE: 5, LLE: 5 Psychiatric exam: Present: normal affect, normal mood Skin exam: Present: warm, dry, intact, normal color. Absent: rash Course Vital Signs 04/24/20 04/24/20 22:41 23:49 Temperature 98.1 F 97.8 F Pulse Rate 103 H 92 Respiratory 18 18 Rate Blood Pressure 142/105 137/82 O2 Sat by Pulse 97 96 Oximetry Medical Decision Making - Medical Decision Making 59-year-old male patient presents to the emergency department today for evaluation of worsening pain to his right ear radiating to the right eye. Also reporting increased dizziness. This is the patient's third emergency department visit for similar type symptoms. Has been on antibiotics for quite some time to relieve the diagnosis of mastoiditis with right otitis externa. He had computed tomography scan at [facility] on the . He is being managed by Dr. Roberto ENT. He was given IV medication for pain. Upon reevaluation he still reporting pain but does report some improvement. He'll be admitted to the hospital for further evaluation and treatment. Dr. Flores is accepting. - Lab Data Result diagrams: 04/24/20 23:24 04/24/20 23:24 Lab Results 04/24/20 04/24/20 04/24/20 Range/Units 23:24 23:24 23:24 WBC 8.9 (3.8-10.6) k/uL RBC 5.34 (4.30-5.90) m/uL Hgb 16.3 (13.0-17.5) gm/dL Hct 45.4 (39.0-53.0) % MCV 85.1 (80.0-100.0) fL MCH 30.6 (25.0-35.0) pg MCHC 35.9 (31.0-37.0) g/dL RDW 13.1 (11.5-15.5) % Plt Count 242 (150-450) k/uL MPV 7.4 Neutrophils % 61 % Lymphocytes % 30 % Monocytes % 5 % Eosinophils % 2 % Basophils % 1 % Neutrophils # 5.4 (1.3-7.7) k/uL Lymphocytes # 2.7 (1.0-4.8) k/uL Monocytes # 0.5 (0-1.0) k/uL Eosinophils # 0.2 (0-0.7) k/uL Basophils # 0.1 (0-0.2) k/uL Sodium 137 (137-145) mmol/L Potassium 3.7 (3.5-5.1) mmol/L Chloride 103 (98-107) mmol/L Carbon Dioxide 23 (22-30) mmol/L Anion Gap 11 mmol/L BUN 18 (9-20) mg/dL Creatinine 1.06 (0.66-1.25) mg/dL Est GFR (CKD-EPI)AfAm 90 (>60 ml/min/1.73 sqM) Est GFR (CKD-EPI)NonAf 78 (>60 ml/min/1.73 sqM) Glucose 112 H (74-99) mg/dL Plasma Lactic Acid Rito 1.0 (0.7-2.0) mmol/L Calcium 9.3 (8.4-10.2) mg/dL Total Bilirubin 0.4 (0.2-1.3) mg/dL AST 23 (17-59) U/L ALT 23 (4-49) U/L Alkaline Phosphatase 110 (38-126) U/L Total Protein 7.3 (6.3-8.2) g/dL Albumin 4.4 (3.5-5.0) g/dL Disposition Clinical Impression: Mastoiditis of right side, Intractable pain Disposition: ADMITTED IP TO THIS [facility] Condition: Serious Decision to Admit Reason: Admit from EC Decision Date: 04/25/20 Decision Time: 00:41
[2020-04-24 23:34] LABS: Basophils # (A) 0.1 k/uL (0-0.2); Basophils % (A) 1 %; Eosinophils # (A) 0.2 k/uL (0-0.7); Eosinophils % (A) 2 %; HCT 45.4 % (39.0-53.0); HGB 16.3 gm/dL (13.0-17.5); Lymphocytes # (A) 2.7 k/uL (1.0-4.8); Lymphocytes % (A) 30 %; MCH 30.6 pg (25.0-35.0); MCHC 35.9 g/dL (31.0-37.0); MCV 85.1 fL (80.0-100.0); Mean Platelet Volume 7.4; Monocytes # (A) 0.5 k/uL (0-1.0); Monocytes % (A) 5 %; Neutrophils # (A) 5.4 k/uL (1.3-7.7); Neutrophils % (A) 61 %; Platelet Count 242 k/uL (150-450); RBC 5.34 m/uL (4.30-5.90); RDW 13.1 % (11.5-15.5); WBC 8.9 k/uL (3.8-10.6)
[2020-04-24 23:40] LABS: Albumin 4.4 g/dL (3.5-5.0); Calcium 9.3 mg/dL (8.4-10.2); Potassium 3.7 mmol/L (3.5-5.1); Total Bilirubin 0.4 mg/dL (0.2-1.3); Total Protein 7.3 g/dL (6.3-8.2)
[2020-04-25] MEDS ORDERED: NALOXONE 0.4 MG/ML 1 ML VIAL IV PRN (00:37)
[2020-04-25] MEDS ORDERED: ONDANSETRON 4 MG/2 ML VIAL IVP PRN (00:37)
[2020-04-25] MEDS ORDERED: PIPERACILLIN-TAZOBACTAM 3.375 GM in SODIUM CHLORIDE 0.9% 100 ML IVPB STA (00:39)
[2020-04-25] MEDS: MECLIZINE 12.5 MG TAB PO SCH ×3 (01:00→15:59)
[2020-04-25] MEDS: HYDROmorphone 1 MG/ML 1 ML SYRINGE IVP PRN (02:05)
[2020-04-25] MEDS: IBUPROFEN 400 MG TAB PO PRN (08:02)
[2020-04-25] MEDS ORDERED: VANCOMYCIN IV PER PHARMACY 1 EACH MISC MISCELLANE PRN (08:18)
[2020-04-25] MEDS ORDERED: OFLOXACIN 0.3% OPHTH DROPS 5 ML BOTTLE RIGHT EAR SCH (09:00)
[2020-04-25] MEDS: PIPERACILLIN-TAZOBACTAM 3.375 GM in SODIUM CHLORIDE 0.9% 100 ML IVPB SCH ×2 (10:00→16:00)
[2020-04-25] MEDS: VANCOMYCIN 1,500 MG in SODIUM CHLORIDE 0.9% 250 ML IVPB SCH ×2 (10:01→21:30)
[2020-04-25] MEDS ORDERED: HYDROCORTISONE TOPICAL PRN (10:48)
[2020-04-25] MEDS ORDERED: NITROGLYCERIN SL TABS 0.4 MG TAB SUBLINGUAL PRN (10:48)
[2020-04-25] MEDS ORDERED: ACETAMINOPHEN TAB 325 MG TAB PO PRN (10:48)
[2020-04-25] MEDS ORDERED: ALBUTEROL NEBULIZED 2.5 MG/3 ML INHALATION PRN (10:48)
[2020-04-25] MEDS ORDERED: ALBUTEROL HFA INHALER INHALATION PRN (10:48)
--- NOTE | 2020-04-25 10:59 | P.HPIM ---
History of Present Illness H&P Date: 04/25/20 Chief Complaint: Right ear pain History of Present Illness This is a 59-year-old male patient of Dr. Arias, Dr. De Luna and Dr. Hudson with past medical history of COPD, coronary artery disease status post stenting of the mid RCA with bare metal stent, hyperlipidemia, nicotine dependence, history of IV drug abuse, history of marijuana abuse, history of alcohol abuse. Patient gives history that he has had right ear pain for at least a month area and he has seen Dr. Roberto on 2 occasions and was using eardrops. He then presented to the [facility] on April 20 due to right ear pain. CAT scan was done at [facility] and was reported as mastoiditis and patient was transferred to [facility] emergency center. Dr. Kern was consulting services manager who recommended patient be on oral antibiotics and amoxicillin was prescribed and patient was discharged home and instructed to follow-up with Dr. Arias and Dr. Roberto in one to 2 days. He then presented to [facility] emergency center again on April 22 with complaints of right ear pain that was worsening despite using antibiotics. He was also having drainage from his ear which is stopped by the time he was in the emergency center. Patient had Covid 19 testing on March 10 prior to hernia surgery done at [facility] Patient came into [facility] emergency center for evaluation. Afebrile, HR 103, BP 142/105, PO 97% on RA. CBC unremarkable. CMP unremarkable except for glucose of 112. COVID 19 not detected. Patient admitted to [facility] floor and consult in place with ENT and infectious disease. Review of Systems Constitutional: Denies chills, Denies fatigue, Denies fever, Denies poor appetite, Denies weight loss Eyes: denies blurred vision, denies pain Ears, nose, mouth and throat: Denies dysphagia, Denies headache, Denies nasal congestion, Denies nasal discharge, Denies sore throat complains of right ear p ain Cardiovascular: Denies denies chest pain, Reports shortness of breath, Denies edema, Denies lightheadedness, Denies palpitations, Denies syncope Respiratory: Denies cough with sputum, denies dyspnea, denies wheezing, Denies cough, Denies excessive sputum, Denies hemoptysis, Denies home oxygen Gastrointestinal: Denies abdominal pain, Denies diarrhea, Denies nausea, Denies vomiting Genitourinary: Denies dysuria, Denies urinary frequency Musculoskeletal: Denies gait dysfunction, Denies muscle weakness, Denies myalgias Integumentary: Denies pruritus, Denies rash, Denies wounds Neurological: Denies change in mentation, Denies change in speech, Denies gait dysfunction, Denies numbness, Denies weakness Psychiatric: Denies anxiety, Denies depression Endocrine: Denies fatigue, Denies weight change Social history Patient was a smoker of up to 5-6 packs per day for over 2 years but smoked for a total of 43 years. He currently smokes 1 pack every 4-6 days. He uses marijuana daily in edible form. He is recovering alcoholic and he drinks alc ohol rarely at this point. He has history of illicit drug use including Phen- Fen, LSD, cocaine, heroin and quit all of this 9 years ago. 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 Patient is . Family history Father at age 62 from lung cancer. He was a smoker. Mother at age 78 from brainstem cancer. Patient has one brother with history of abdominal aortic aneurysm. Patient has 4 sisters and he does not know their medical history. Patient has 1 son and 1 daughter living. He had 1 daughter that at 7 weeks old from a congenital heart defect. Physical Examination Gen: This is a 59-year-old male. He is resting in bed and appears to be in no acute distress. HEENT: Head is atraumatic, normocephalic. Pupils equal, round. Sclerae is anicteric. Edema and swelling to the right ear area, tenderness to the mastoid. TMJ tenderness. NECK: Supple. No JVD. No lymphadenopathy. No thyromegaly. LUNGS: Clear to auscultation. No wheezes or rhonchi. No intercostal retract ions. HEART: Regular rate and rhythm. No murmur. ABDOMEN: Soft. Bowel sounds are present. No masses. No tenderness. EXTREMITIES: No pedal edema. No calf tenderness. NEUROLOGICAL: Patient is awake, alert and oriented x3. Cranial nerves 2 through 12 are grossly intact. Assessment and Plan: 1. Subacute mastoiditis presenting with headache, earache and dizziness. Patient failed outpatient treatment. Consult with ENT and infectious disease. Continue ciprofloxacin dexamethasone eardrops, dexamethasone 10 mg IV every 8 hours with tapering dose per Dr. Roberto. Continue vancomycin and Zosyn until seen by Dr. Bender 2. History of coronary artery disease status post stenting of the mid RCA with bare metal stent. Continue aspirin 81 mg daily, atorvastatin 40 mg at bedtime, Imdur 30 mg daily, Lopressor 50 mg daily. 3. COPD without exacerbation. Continue Ventolin nebulizer treatment as needed, Proventil on a twice daily, Pulmicort twice daily, Singulair 10 mg daily. 4. Marijuana use and tobacco use and dependence. Patient is now down to 2-3 cigarettes per day. He finds nicotine patch. 5. Hypertension. Continue Lopressor 6. Hyperlipidemia. Continue atorvastatin. 7. DVT prophylaxis. SADIE hose 8. GI prophylaxis. Pepcid. Patient placed as an observation status Discharge plan: Home Impression and plan of care have been directed as dictated by the signing physician. Daysi Nunn nurse practitioner acting as scribe for signing physic heather. Past Medical History Past Medical History: Coronary Artery Disease (CAD), COPD, Myocardial Infarction ([place]) Additional Past Medical History / Comment(s): Pt states he has hx of 3 respiratory arrests and was vented, generalized arthritis, Last Myocardial Infarction Date:: History of Any Multi-Drug Resistant Organisms: None Reported Past Surgical History: Adenoidectomy, Heart Catheterization With Stent, Hernia Repair, Joint Replacement, Orthopedic Surgery, Tonsillectomy Additional Past Surgical History / Comment(s): R inguinal hernia repair, L rotator cuff repair, bialteral total knee arthroplasties, R shoulder spur r emoval, teeth extracted, colonoscopy-normal. third hernia repair, left side Past Anesthesia/Blood Transfusion Reactions: No Reported Reaction Date of Last Stent Placement:: 2018 Past Psychological History: No Psychological Hx Reported Smoking Status: Current some day smoker Past Alcohol Use History: Rare Past Drug Use History: Marijuana - Past Family History Father Family Medical History: Cancer Additional Family Medical History / Comment(s): Father of lung cancer at the age of 62. He was a smoker. Mother Family Medical History: Diabetes Mellitus, Hypertension Additional Family Medical History / Comment(s): Mother at age 78 from brainstem cancer. Brother(s) Additional Family Medical History / Comment(s): Patient's 1 brother with history of AAA. Patient has 4 sisters and he does not know any of their medical history. Patient's 1 son and 1 daughter living. He had one daughter that at 7 weeks old from a congenital heart. Medications and Allergies Home Medications Medication Instructions Recorded Confirmed Type Albuterol Sulfate [Ventolin HFA] 2 puff INHALATION RT-Q6H PRN 09/07/14 04/25/20 History Albuterol Nebulized [Ventolin 2.5 mg INHALATION RT-Q4H PRN 03/03/16 04/25/20 History Nebulized] Arformoterol Tartrate [Brovana] 15 mcg INHALATION RT-BID 03/03/16 04/25/20 History Budesonide [Pulmicort] 0.5 mg INHALATION RT-BID 03/03/16 04/25/20 History Ipratropium Nebulized [Atrovent 0.5 mg INHALATION RT-BID 03/23/17 04/25/20 History Nebulized 0.2 MG/ML] Clopidogrel Bisulfate [Plavix] 75 mg PO DAILY #90 tab 12/30/18 04/25/20 Rx Aspirin EC [Ecotrin Low Dose] 81 mg PO DAILY 04/01/19 04/25/20 History Atorvastatin [Lipitor] 40 mg PO HS 04/07/19 04/25/20 History Montelukast [Singulair] 10 mg PO HS #30 tab 04/15/19 04/25/20 Rx Isosorbide Mononitrate ER [Imdur] 30 mg PO DAILY #30 tab.er.24h 05/01/19 04/25/20 Rx Amoxicillin/Potassium Clav 1 tab PO Q12HR 1 Days #20 tab 04/20/20 04/25/20 Rx [Augmentin 875-125 Tablet] Acetaminophen [Tylenol Arthritis] 650 mg PO Q4H PRN 04/22/20 04/25/20 History Ciclopirox Olamine [Loprox 0.77% 1 applic TOPICAL BID 04/22/20 04/25/20 History cream] Griseofulvin, Microsize 500 mg PO BID 04/22/20 04/25/20 History [Griseofulvin] Hydrocortisone Cream 1 applic TOPICAL DAILY PRN 04/22/20 04/25/20 History [Hydrocortisone 2.5% Cream] Ketoconazole 2% Cream [Nizoral 2%] 1 applic TOPICAL BID 04/22/20 04/25/20 Hi story Metoprolol Tartrate [Lopressor] 50 mg PO DAILY 04/22/20 04/25/20 History Nitroglycerin Sl Tabs [Nitrostat] 0.4 mg SUBLINGUAL Q5M PRN 04/22/20 04/25/20 History Ofloxacin 0.3% Ophth Soln [Ocuflox 10 drops RIGHT EAR BID 04/22/20 04/25/20 History Ophth Soln] fluocinolone acetonide oiL 5 drops RIGHT EAR BID PRN 04/22/20 04/25/20 History [Fluocinolone Acetonide Oil (Otic)] Allergies Allergy/AdvReac Type Severity Reaction Status Date / Time levofloxacin [From Levaquin] AdvReac Nausea & Verified 04/25/20 08:06 Vomiting Physical Exam Vitals: Vital Signs Temp Pulse Pulse Resp BP BP Pulse Ox 04/25/20 02:00 97.7 F 61 15 126/79 97 04/24/20 23:49 97.8 F 92 18 137/82 96 04/24/20 22:41 98.1 F 103 H 18 142/105 97 Intake and Output 04/24/20 04/25/20 04/25/20 22:59 06:59 14:59 Other: # Voids 1 Weight 94.347 kg 94.347 kg Results CBC & Chem 7: 04/24/20 23:24 04/24/20 23:24 Labs: Abnormal Lab Results - Last 24 Hours (Table) 04/24/20 Range/Units 23:24 Glucose 112 H (74-99) mg/dL Thrombosis Risk Factor Assmnt - Choose All That Apply Any of the Below Risk Factors Present?: Yes Each Factor Represents 1 point: Medical pt on bed rest Other Risk Factors: No Other congenital or acquired thrombophilia - If yes, enter type in comment: No Thrombosis Risk Factor Assessment Total Risk Factor Score: 1 Thrombosis Risk Factor Assessment Level: Low Risk
[2020-04-25] MEDS: ACETAMINOPHEN IV (For NPO) 1,000 MG in EMPTY BAG 1 BAG IVPB SCH ×2 (11:18→17:11)
[2020-04-25] MEDS: CIPROFLOXACIN-DEXAMETH 0.3-0.1% DROPS 7.5 ML BTL RIGHT EAR SCH ×3 (11:18→21:30)
[2020-04-25] MEDS: CLOPIDOGREL 75 MG TAB PO SCH (11:19)
[2020-04-25] MEDS: DEXAMETHASONE SOD PHOSPHATE 10 MG/ML 1 ML VIAL IV SCH ×2 (11:19→17:11)
[2020-04-25] MEDS: ISOSORBIDE MONONITRATE ER 30 MG TAB.ER.24H PO SCH (11:19)
[2020-04-25] MEDS: METOPROLOL TARTRATE 50 MG TAB PO SCH (11:19)
[2020-04-25] MEDS: ASPIRIN 81 MG PO SCH (11:19)
[2020-04-25] MEDS: IPRATROPIUM-ALBUTEROL 3 ML NEB INHALATION PRN ×2 (11:49→21:22)
[2020-04-25] MEDS: ATORVASTATIN 40 MG TAB PO SCH (20:17)
[2020-04-25] MEDS: MONTELUKAST 10 MG TAB PO SCH (20:17)
[2020-04-25] MEDS: HEPARIN SODIUM,PORCINE 5,000 UNIT/ML 1 ML VIAL SQ SCH (20:47)
[2020-04-25] MEDS: CEFEPIME 2 GM in SODIUM CHLORIDE 0.9% 100 ML IVPB SCH (20:47)
[2020-04-25] MEDS ORDERED: KETOCONAZOLE 2% TOPICAL SCH (21:00)
[2020-04-25] MEDS: IPRATROPIUM 0.5 MG/2.5 ML NEBU INHALATION SCH (21:22)
[2020-04-25] MEDS: BUDESONIDE 0.5 MG/2 ML NEBU INHALATION SCH (21:22)
[2020-04-25] MEDS: FORMOTEROL FUMARATE 20 MCG/2 ML NEBU INHALATION SCH (21:22)
--- NOTE | 2020-04-25 22:43 | CONS ---
CONSULTATION DATE OF SERVICE: 04/25/2020. REASON FOR CONSULTATION: Right-sided mastoiditis. HISTORY OF PRESENT ILLNESS: The patient is a 59-year-old male who started having a problem with right ear pain started about a month ago. The patient is describing the pain to be more of a dull aching to sharp and almost 10 out of 10 in severity. Recently the patient apparently has been seen in the outpatient setting by Dr. Roberto on 2 occasions and has been given some ear drops without any significant improvement. The patient presented to [facility] ER on April 20 for ear pain. The patient did have a CT scan of the mastoid area done with evidence of right-sided mastoiditis for which the patient was transferred to [facility]. However, the patient was subsequently discharged from that facility on oral amoxicillin. The patient seemed to have persistent rather worsening of his pain for which the patient presented back to [facility] ER last evening. The patient was evaluated by the ER physician. The patient did have a workup done including a CBC that was normal. Wilson PCR was negative. Liver enzymes are normal. No cultures were done and the patient has been started on Zosyn and vancomycin and admitted to the hospital. Infectious Disease was consulted for further management. The patient did mention he did have some drainage before coming to the hospital. Currently with no drainage from the right ear. Apparently, described the pain to the right ear and behind the ear area to be throbbing, intensity almost 10 out of 10 in severity. The patient denies any high- grade fever or chills. No nausea, no vomiting. No abdominal pain or any diarrhea. REVIEW OF SYSTEMS: Positive points have been mentioned in HPI. Rest of the other systems are negative. PAST MEDICAL HISTORY: Coronary artery disease, COPD. PAST SURGICAL HISTORY: Adenoidectomy, PTCA with stent, hernia repair, left rotator cuff repair, right shoulder spur removal. SOCIAL HISTORY: Current everyday smoker. Does admit to marijuana use. FAMILY HISTORY: Father history of lung cancer. Mother history of diabetes. ALLERGIES: TO LEVAQUIN. MEDICATIONS: Include the patient is currently on Tylenol, DuoNeb, aspirin, Lipitor, Pulmicort, Zosyn, , Plavix, Lotrimin, Decadron, Pepcid, heparin, Dilaudid, Motrin, Imdur, Antivert, Lopressor. Vancomycin. PHYSICAL EXAMINATION: Blood pressure is 109/72 with a pulse of 69, temperature 98. He is 95% on room air. General description: The patient is a middle-aged male lying in bed in no distress. No tachypnea or accessory muscles of respiration use. HEENT: Examination shows no pallor or scleral icterus. Right ear currently with no swelling. No redness. The examination of the middle ear was painful as the patient did have pain with the otoscope. He did have some drainage in the ear and slight tenderness on the mastoid area, but no redness. NECK: Trachea central. No thyromegaly. LUNGS: Unlabored breathing. Clear to auscultation anteriorly. No wheeze or crackles. HEART S1, S2. Regular rate and rhythm. ABDOMEN: Soft, no tenderness. No guarding. No rigidity. EXTREMITIES: No edema of the feet. SKIN examination: No rash or mass palpable. NEUROLOGICAL: Patient is awake, alert, oriented times three. Mood and affect normal. LABS: Hemoglobin 16.8, white count 8.9, BUN of 18, creatinine 1.06. No cultures done. DIAGNOSTIC IMPRESSION AND PLAN: Patient admitted to the hospital with right ear pain and drainage in this patient who has failed outpatient oral amoxicillin therapy concern for right-sided otitis media and mastoiditis and will need to cover for both gram-positive skin siva as well as gram- negative in view of the chronicity of this problem. PLAN: 1. CT will be reviewed with the radiologist at [facility] as is currently not available at this facility. 2. We will continue the patient on vancomycin pharmacy to dose. However discontinue Zosyn to decrease risk of nephrotoxicity. 3. We will add cefepime 2 g q.12h to cover for the gram negative. 4. We will obtain blood cultures, CRP and a sedimentation rate and may benefit from local culture which may be coordinated with ENT nurse. 5. We will follow on clinical condition and investigations to further adjust medication if needed. Thank you for this consultation. We will follow this patient along with you. MMODL / IJN: [id number] /
[2020-04-26] MEDS: ACETAMINOPHEN IV (For NPO) 1,000 MG in EMPTY BAG 1 BAG IVPB SCH ×2 (00:37→05:18)
[2020-04-26] MEDS: MECLIZINE 25 MG TAB PO SCH ×4 (00:37→22:13)
[2020-04-26] MEDS: CLOTRIMAZOLE 1% CREAM 15 GM TUBE TOPICAL SCH ×3 (00:37→22:12)
[2020-04-26] MEDS: DEXAMETHASONE SOD PHOSPHATE 10 MG/ML 1 ML VIAL IV SCH ×3 (01:50→17:06)
[2020-04-26] MEDS: IBUPROFEN 400 MG TAB PO PRN ×3 (07:41→20:53)
[2020-04-26] MEDS: FORMOTEROL FUMARATE 20 MCG/2 ML NEBU INHALATION SCH ×2 (07:52→21:13)
[2020-04-26] MEDS: BUDESONIDE 0.5 MG/2 ML NEBU INHALATION SCH ×2 (07:52→21:13)
[2020-04-26] MEDS: IPRATROPIUM 0.5 MG/2.5 ML NEBU INHALATION SCH ×2 (07:52→21:12)
[2020-04-26] MEDS: CLOPIDOGREL 75 MG TAB PO SCH (08:44)
[2020-04-26] MEDS: ASPIRIN 81 MG PO SCH (08:44)
[2020-04-26] MEDS: METOPROLOL TARTRATE 50 MG TAB PO SCH (08:44)
[2020-04-26] MEDS: FAMOTIDINE 20 MG TAB PO SCH (08:44)
[2020-04-26] MEDS: ISOSORBIDE MONONITRATE ER 30 MG TAB.ER.24H PO SCH (08:45)
--- NOTE | 2020-04-26 08:46 | CONS ---
CONSULTATION DATE OF CONSULTATION: 04/25/2020 DATE OF ADMISSION: 04/25/2020 REASON FOR THE CONSULTATION: Right ear pain. HISTORY OF PRESENT ILLNESS: This patient is a 59-year-old male who is known to my office, who was admitted via [facility] Emergency Room for definitive treatment and evaluation of right ear pain. The patient had a similar admission in September of 2018, and his symptoms resolved quite well. He has done well but recently once again developed pain in the right ear. He has history of having eczematoid external otitis, extremely itchy condition, for which he was given a prescription for a topical anti-inflammatory steroid ear drops, Dermotic and was advised not to ever use Q-Tips to clean his ears because this certainly would aggravate the condition. He has been recently seen on several occasions at the emergency room, both at [facility] and at [facility] and they have placed him on various courses of oral antibiotics and antibiotic ear drops. The patient states that because the ear so swollen, he is not able to get the ear drops down into the ear canal unfortunately. He describes this pain as being postauricular and also the ear is quite extremely tender to touch. The patient has no history of diabetes mellitus. CT scan of the head revealed evidence of significant soft tissue swelling/edema of the right external auditory canal, and middle ear space, and also fluid present in the mastoid air cells. The mastoid air cells, however, did not appear to be coalescent. The patient has history of heavy smoking and continues to smoke, but states that he is trying to quit. PAST MEDICAL HISTORY: Past medical history reveals that he has a possible allergy to CIPRO. It is to be noted the patient has been seen in my office recently and at that time a diagnosis of eczematoid external otitis and right swimmer's ear and right acute otitis media was diagnosed and the patient was placed on a course of ofloxacin ear drops 10 drops in the right ear t.i.d. A gutierrez wick was placed in the right ear. The patient was seen back approximately a week later and at that time he stated that the ear felt much better. I removed the gutierrez wick and the ear looked significantly improved and because his pain was better I advised the patient that we would see him again next week. Unfortunately, his symptoms returned and the patient subsequently has presented to the emergency room and has been admitted. He was placed on Zosyn and vancomycin intravenously. In addition to this, he has been placed on ofloxacin ear drops. MEDICATIONS: His current medications include Ventolin, Brovana, Pulmicort, Atrovent, Lipitor, Lopressor, Nitrostat, and Dermotic oil. REVIEW OF SYSTEMS: Cardiovascular is positive for hypertension. Respiratory is positive for emphysema/COPD. Metabolic endocrine is positive for hypercholesterolemia. The remainder of review of systems is essentially unremarkable. It is to be noted that the patient's alleged allergy to LEVAQUIN was not a rash, but simply nausea and vomiting. Therefore, Cipro definitely is an option to be used to treat this patient intravenously assuming he does not respond to the Zosyn and the vancomycin. The Levaquin or Cipro IV has an excellent coverage for Pseudomonas. PHYSICAL EXAMINATION: HEENT: Patient is normocephalic. Examination of the left ear is unremarkable. Examination of the right ear reveals there is a small amount of wax in the ear, but the canal is extremely swollen and tender to insertion of the otoscope. Postauricular palpation reveals tenderness and there is tragus tenderness. I was able to insert a gutierrez wick into the patient's right ear without any difficulty and this will allow the ear drops to saturate the ear canal more effectively. Because of the extreme swelling of the canal, I was not able to evaluate the status of the right tympanic membrane. Pupils are equal, round, and react to light and accommodation. Extraocular movements within normal limits. Intranasal examination reveals moderate to severe septal deviation with compensatory hypertrophy of inferior turbinates. Examination of oropharynx, cranial nerves 2 through 12 and remainder of the head and neck exam is unremarkable. CHEST/CARDIOVASCULAR: Both lung pringle are clear to percussion and auscultation. Patient is in regular sinus rhythm. S1, S2 are present without any murmurs, S3s or S4s. ABDOMEN: There is no evidence any masses megaly or tenderness. The abdomen is soft. The remainder of physical exam is unremarkable. IMPRESSION: Eczematoid external otitis, right infectious external otitis, right acute mastoiditis, right acute serous otitis media/acute otitis media. PLAN: Continue with the present regimen of Zosyn and vancomycin (Again, the patient's allergy to the QUINOLONE ANTIBIOTICS such as LEVAQUIN, CIPRO was mainly nausea, vomiting, and not an actual allergic rash type reaction). In addition to this, we will switch him from the Ofloxacin to Ciprodex ear drops, this has a small amount of dexamethasone present, and this should be more effective for reducing the swelling of the external auditory canal and relieving some of the pain. The gutierrez wick/sponge that I have inserted into his right external auditory canal will allow the ear drops solution to saturate the canal and remain present as opposed to running out which I suspect what has been happening since the canal has been so swollen. In addition to this, I am going to put the patient on an intravenous dexamethasone regimen as outlined in his chart. I will follow this patient daily with you and hopefully if he is able to at some point be discharged from the hospital because of his improved symptoms, I will be able to see him in the office and at that time will most likely make arrangements for him to possibly undergo either insertion of a ventilation tube or possibly a mastoidectomy or tympanoplasty-mastoidectomy in the right ear. Sometimes simply inserting a ventilation tube in the tympanic membrane and aerating the middle ear space will also aerate the mastoid air cells and relieve the problem. Otherwise, a tympanoplasty mastoidectomy would be required. As interesting side note, today, 04/25/2020, was the day that the patient was scheduled for his return appointment. I want to take this opportunity to thank you for allowing me to assist you in the care of your patient. If I can be of any further assistance, please feel free to call my office. CORTES / NEFTALIN: [id number] / CEDRICK
[2020-04-26] MEDS: HEPARIN SODIUM,PORCINE 5,000 UNIT/ML 1 ML VIAL SQ SCH ×2 (08:48→22:13)
[2020-04-26] MEDS: CEFEPIME 2 GM in SODIUM CHLORIDE 0.9% 100 ML IVPB SCH ×2 (08:48→21:22)
[2020-04-26] MEDS: VANCOMYCIN 1,500 MG in SODIUM CHLORIDE 0.9% 250 ML IVPB SCH (08:49)
[2020-04-26 09:25] LABS: African American GFR (CKD) 108.7 (60.0-200.0); Non-African American GFR(CKD) 93.8 (60.0-200.0)
[2020-04-26] MEDS: CIPROFLOXACIN-DEXAMETH 0.3-0.1% DROPS 7.5 ML BTL RIGHT EAR SCH ×3 (10:54→22:33)
--- NOTE | 2020-04-26 13:39 | P.PN ---
Subjective Progress Note Date: 04/26/20 History of Present Illness This is a 59-year-old male patient of Dr. Arias, Dr. De Luna and Dr. Hudson with past medical history of COPD, coronary artery disease status post stenting of the mid RCA with bare metal stent, hyperlipidemia, nicotine dependence, history of IV drug abuse, history of marijuana abuse, history of alcohol abuse. Patient gives history that he has had right ear pain for at least a month area and he has seen Dr. Roberto on 2 occasions and was using eardrops. He then presented to the [facility] on April 20 due to right ear pain. CAT scan was done at [facility] and was reported as mastoiditis and patient was transferred to [facility] emergency center. Dr. Kern was nail professional who recommended patient be on oral antibiotics and amoxicillin was prescribed and patient was discharged home and instructed to follow-up with Dr. Arias and Dr. Roberto in one to 2 days. He then presented to [facility] emergency center again on April 22 with complaints of right ear pain that was worsening despite using antibiotics. He was also having drainage from his ear which is stopped by the time he was in the emergency center. Patient had Covid 19 testing on March 10 prior to hernia surgery done at [facility] Patient came into [facility] emergency center for evaluation. Afebrile, HR 103, BP 142/105, PO 97% on RA. CBC unremarkable. CMP unremarkable except for glucose of 112. COVID 19 not detected. [facility] and consult in place with ENT and infectious disease. 04/26: Patient has been seen by Dr. Bender with recommendations for cefepime. Vancomycin is discontinued today. Midline has been ordered with plan for cefep mckenzie at discharge. Patient will be here over the weekend. Patient states that he is a little bit better. He does complain of headache. No drainage. He has a plugged sensation in the ear. He denies any abdominal pain, nausea or vomiting. Patient has been seen by Dr. Roberto and he switched eardrops to Ciprodex and inserted justine last sponge into his right external auditory canal. He started IV dexamethasone and has cleared him for discharge. Plan is to follow-up in the office for recheck and arrange for possible insertion of ventilation tube or possibly mastoidectomy or tympanoplasty/mastoidectomy in the right ear. Review of Systems Constitutional: Denies chills, Denies fatigue, Denies fever, Denies poor appetite, Denies weight loss Eyes: denies blurred vision, denies pain Ears, nose, mouth and throat: Denies dysphagia, Denies headache, Denies nasal congestion, Denies nasal discharge, Denies sore throat complains of right ear pain continues Cardiovascular: Denies denies chest pain, Reports shortness of breath, Denies edema, Denies lightheadedness, Denies palpitations, Denies syncope Respiratory: Denies cough with sputum, denies dyspnea, denies wheezing, Denies cough, Denies excessive sputum, Denies hemoptysis, Denies home oxygen Gastrointestinal: Denies abdominal pain, Denies diarrhea, Denies nausea, Denies vomiting Genitourinary: Denies dysuria, Denies urinary frequency Musculoskeletal: Denies gait dysfunction, Denies muscle weakness, Denies myalgias Integumentary: Denies pruritus, Denies rash, Denies wounds Neurological: Denies change in mentation, Denies change in speech, Denies gait dysfunction, Denies numbness, Denies weakness Psychiatric: Denies anxiety, Denies depression Endocrine: Denies fatigue, Denies weight change Physical Examination Gen: This is a 59-year-old male. He is resting in bed and appears to be in no acute distress. HEENT: Head is atraumatic, normocephalic. Pupils equal, round. Sclerae is anicteric. Edema and swelling to the right ear area, tenderness to the mastoid. TMJ tenderness. NECK: Supple. No JVD. No lymphadenopathy. No thyromegaly. LUNGS: Clear to auscultation. No wheezes or rhonchi. No intercostal retractions. HEART: Regular rate and rhythm. No murmur. ABDOMEN: Soft. Bowel sounds are present. No masses. No tenderness. EXTREMITIES: No pedal edema. No calf tenderness. NEUROLOGICAL: Patient is awake, alert and oriented x3. Cranial nerves 2 through 12 are grossly intact. Assessment and Plan: 1. Subacute mastoiditis presenting with headache, earache and dizziness. Patient failed outpatient treatment. Consult with ENT and infectious disease appreciated. Continue ciprofloxacin dexamethasone eardrops, dexamethasone 10 mg IV every 8 hours with tapering dose per Dr. Roberto. Continue cefepime per Dr. Bender. Midline order for anticipated IV cefepime at discharge. 2. History of coronary artery disease status post stenting of the mid RCA with bare metal stent. Continue aspirin 81 mg daily, atorvastatin 40 mg at bedtime, Imdur 30 mg daily, Lopressor 50 mg daily. 3. COPD without exacerbation. Continue Ventolin nebulizer treatment as needed, Proventil on a twice daily, Pulmicort twice daily, Singulair 10 mg daily. 4. Marijuana use and tobacco use and dependence. Patient is now down to 2-3 cigarettes per day. He finds nicotine patch. 5. Hypertension. Continue Lopressor 6. Hyperlipidemia. Continue atorvastatin. 7. DVT prophylaxis. SADIE hose 8. GI prophylaxis. Pepcid. Discharge plan: Home on Wednesday Impression and plan of care have been directed as dictated by the signing physician. Daysi Nunn nurse practitioner acting as scribe for signing physician. Objective - Vital Signs Vital signs: Vital Signs Temp 98.4 F 04/26/20 06:53 Pulse 103 H 04/26/20 06:53 Resp 16 04/26/20 06:53 BP 133/66 04/26/20 06:53 Pulse Ox 95 04/26/20 06:53 Intake & Output 04/25/20 04/26/20 04/26/20 18:59 06:59 18:59 Intake Total 400 Output Total 400 Balance 0 Intake: Oral 400 Output: Urine 400 Other: Voiding Method Toilet # Voids 2 2 - Labs CBC & Chem 7: 04/24/20 23:24 04/26/20 05:15
--- NOTE | 2020-04-26 13:44 | P.PN ---
Subjective Progress Note Date: 04/26/20 HISTORY OF PRESENT ILLNESS This is a 59-year-old male presenting to the hospital with right-sided mastoiditis. He has been treated with cefepime and vancomycin. Midline has been ordered with plan for cefepime at discharge. Patient will be here over the weekend. Patient states that he is a little bit better. He does complain of headache. No drainage. He has a plugged sensation in the ear. He denies any abdominal pain, nausea or vomiting. Patient has been seen by Dr. Roberto and he switched eardrops to Ciprodex and inserted justine last sponge into his right external auditory canal. He also started IV dexamethasone. He plans for follow-up in the office for recheck and arrange for possible insertion of ventilation tube or possibly mastoidectomy or tympanoplasty/mastoidectomy in the right ear. PHYSICAL EXAMINATION Gen: This is a 59-year-old male. He is resting bed and appears to be comfortable. HEENT: Head is atraumatic, normocephalic. Pupils equal, round. Sclerae is anicteric. Tenderness to the right ear, no drainage. Tenderness to the right mastoid area, no redness. NECK: Supple. No JVD. No lymphadenopathy. LUNGS: Clear to auscultation. No wheezes or rhonchi. No intercostal retractions. HEART: Regular rate and rhythm. ABDOMEN: Soft. Bowel sounds are present. No masses. No tenderness. EXTREMITIES: No pedal edema. No calf tenderness. NEUROLOGICAL: Patient is awake, alert and oriented x3. ASSESSMENT Right-sided otitis media and mastoiditis PLAN Continue cefepime 2 g IV piggyback every 12 hours Discontinue vancomycin Order midline with plan for outpatient IV antibiotics in the form of cefepime, prescription will be sent to [facility] Input from ENT appreciated The above dictated assessment and findings were discussed with Dr. Bender. The impression and plan of care have been directed as dictated. Daysi Nunn nurse practitioner acting as scribe for Dr. Bender. Objective - Vital Signs Vital signs: Vital Signs Temp 97.7 F 04/26/20 12:46 Pulse 65 04/26/20 12:46 Resp 14 04/26/20 12:46 BP 110/71 04/26/20 12:46 Pulse Ox 94 L 04/26/20 12:46 Intake & Output 04/25/20 04/26/20 04/26/20 18:59 06:59 18:59 Intake Total 400 Output Total 400 Balance 0 Intake: Oral 400 Output: Urine 400 Other: Voiding Method Toilet Toilet # Voids 2 2 - Labs CBC & Chem 7: 04/24/20 23:24 04/26/20 05:15
[2020-04-26] MEDS: IPRATROPIUM-ALBUTEROL 3 ML NEB INHALATION PRN (16:45)
[2020-04-26] MEDS: HYDROmorphone 1 MG/ML 1 ML SYRINGE IVP PRN (20:53)
[2020-04-26] MEDS: ATORVASTATIN 40 MG TAB PO SCH (21:34)
[2020-04-26] MEDS: MONTELUKAST 10 MG TAB PO SCH (21:34)
[2020-04-27] MEDS: DEXAMETHASONE SOD PHOSPHATE 10 MG/ML 1 ML VIAL IV SCH (01:48)
[2020-04-27] MEDS: IPRATROPIUM 0.5 MG/2.5 ML NEBU INHALATION SCH ×2 (07:04→19:07)
[2020-04-27] MEDS: IPRATROPIUM-ALBUTEROL 3 ML NEB INHALATION PRN ×3 (07:04→19:08)
[2020-04-27] MEDS: FORMOTEROL FUMARATE 20 MCG/2 ML NEBU INHALATION SCH ×2 (07:04→19:08)
[2020-04-27] MEDS: BUDESONIDE 0.5 MG/2 ML NEBU INHALATION SCH ×2 (07:04→19:08)
[2020-04-27] MEDS: FAMOTIDINE 20 MG TAB PO SCH (08:00)
[2020-04-27] MEDS ORDERED: VANCOMYCIN TROUGH DUE 1 EACH MISC MISCELLANE ONE (08:00)
[2020-04-27] MEDS: IBUPROFEN 400 MG TAB PO PRN ×2 (08:01→22:46)
[2020-04-27] MEDS: ASPIRIN 81 MG PO SCH (08:01)
[2020-04-27] MEDS: CLOPIDOGREL 75 MG TAB PO SCH (08:01)
[2020-04-27] MEDS: METOPROLOL TARTRATE 50 MG TAB PO SCH (08:01)
[2020-04-27] MEDS: MECLIZINE 25 MG TAB PO SCH ×3 (08:01→22:45)
[2020-04-27] MEDS: ISOSORBIDE MONONITRATE ER 30 MG TAB.ER.24H PO SCH (08:01)
[2020-04-27 09:38] LABS: African American GFR (CKD) 108.7 (60.0-200.0); Non-African American GFR(CKD) 93.8 (60.0-200.0)
--- NOTE | 2020-04-27 09:46 | PN ---
PROGRESS NOTE DATE OF SERVICE: 04/26/2020 SUBJECTIVE: Vital signs stable. The patient states that he is experiencing slightly less pain today than he did less than 24 hours ago. He states he is not having the headache that he was having yesterday. OBJECTIVE: Examination of the right ear reveals that the Young wick is intact and is moist. Palpation of the tragus and the postauricular area still shows some tenderness, although slightly less than yesterday. The remainder of the head and neck exam is essentially unchanged since yesterday. Chest and cardiovascular exam are regular. The remainder of physical exam is unchanged since yesterday. ASSESSMENT: Eczematoid external otitis, right external otitis, right acute otitis media, right acute mastoiditis, right acute serous otitis media. PLAN: Continue with the present regimen of the Ciprodex antibiotic ear drops and the dexamethasone regimen as well as the intravenous antibiotics. If the patient responds appropriately, then once he is discharged, I will be able to get him referred to an tufting supervisor to whom I have sent other patients . Sometimes acute mastoiditis can be treated with simply inserting a ventilation tube. Doing so will aerate not only the middle ear space, but also the mastoid air cells and allow things to drain. However, in some recalcitrant cases, then a formal mastoidectomy may be required. Unfortunately, that procedure cannot be done in [facility] because none of the hospitals ([facility], [facility], or [facility]) has the appropriate equipment such as the necessary drills, burs, etc. that is needed and this type of surgery. Although acute mastoiditis is not rare, it is still not uncommon. The treatment for this particular disease has changed over the years and generally I prefer to leave the decision as to what type of treatment up to the tufting supervisor. In the past 30 years that I have been on staff at [facility] I have probably seen 2-3 patients per year with acute mastoiditis, both adults and children. Some of these patients have required surgery and some have not. Therefore, I will continue to follow this patient with you and see how he progresses. MMODL / IJN: [id number] / [id number]
[2020-04-27] MEDS: CLOTRIMAZOLE 1% CREAM 15 GM TUBE TOPICAL SCH ×2 (12:29→21:07)
[2020-04-27] MEDS: HEPARIN SODIUM,PORCINE 5,000 UNIT/ML 1 ML VIAL SQ SCH ×2 (12:30→21:06)
[2020-04-27] MEDS: CEFEPIME 2 GM in SODIUM CHLORIDE 0.9% 100 ML IVPB SCH ×2 (12:30→21:06)
[2020-04-27] MEDS: CIPROFLOXACIN-DEXAMETH 0.3-0.1% DROPS 7.5 ML BTL RIGHT EAR SCH ×3 (12:30→21:06)
[2020-04-27] MEDS: DEXAMETHASONE SOD PHOSPHATE 4 MG/ML 1 ML VIAL IV SCH ×2 (12:31→17:46)
--- NOTE | 2020-04-27 17:08 | P.PN ---
Subjective Progress Note Date: 04/27/20 History of Present Illness This is a 59-year-old male patient of Dr. Arias, Dr. De Luna and Dr. Hudsno with past medical history of COPD, coronary artery disease status post stenting of the mid RCA with bare metal stent, hyperlipidemia, nicotine dependence, history of IV drug abuse, history of marijuana abuse, history of alcohol abuse. Patient gives history that he has had right ear pain for at least a month area and he has seen Dr. Roberto on 2 occasions and was using eardrops. He then presented to the [facility] on April 20 due to right ear pain. CAT scan was done at [facility] and was reported as mastoiditis and patient was transferred to [facility] emergency center. Dr. Kern was controls design engineer who recommended patient be on oral antibiotics and amoxicillin was prescribed and patient was discharged home and instructed to follow-up with Dr. Arias and Dr. Roberto in one to 2 days. He then presented to [facility] emergency center again on April 22 with complaints of right ear pain that was worsening despite using antibiotics. He was also having drainage from his ear which is stopped by the time he was in the emergency center. Patient had Covid 19 testing on March 10 prior to hernia surgery done at [facility] Patient came into [facility] emergency center for evaluation. Afebrile, HR 103, BP 142/105, PO 97% on RA. CBC unremarkable. CMP unremarkable except for glucose of 112. COVID 19 not detected. [facility] in place with ENT and infectious disease. 04/26: Patient has been seen by Dr. Bender with recommendations for cefepime. Vancomycin is discontinued today. Midline has been ordered with plan for cefe pime at discharge. Patient will be here over the weekend. Patient states that he is a little bit better. He does complain of headache. No drainage. He has a plugged sensation in the ear. He denies any abdominal pain, nausea or vomiting. Patient has been seen by Dr. Roberto and he switched eardrops to Ciprodex and inserted justine last sponge into his right external auditory canal. He started IV dexamethasone and has cleared him for discharge. Plan is to follow-up in the office for recheck and arrange for possible insertion of ventilation tube or possibly mastoidectomy or tympanoplasty/mastoidectomy in the right ear. 04/27: Patient is in for follow-up today, midline line is in place right arm, infusing without any difficulties, patient still has balance issue, headache, still not sleeping, patient does not have as much pain on chewing, however there is tenderness in the mastoid area and anterior temporomandibular joint, patient denies nausea vomiting fever or chills, has no shortness of breath. Plan for discharge on Wednesday, with final antibiotic recommendations from infectious disease, to finish cefepime through his right midline line. T-max 98.5, vitals are stable, O2 sats at room air Review of Systems Constitutional: Denies chills, Denies fatigue, Denies fever, Denies poor appetite, Denies weight loss Eyes: denies blurred vision, denies pain Ears, nose, mouth and throat: Denies dysphagia, Denies headache, Denies nasal congestion, Denies nasal discharge, Denies sore throat complains of right ear pain continues Cardiovascular: Denies denies chest pain, Reports shortness of breath, Denies edema, Denies lightheadedness, Denies palpitations, Denies syncope Respiratory: Denies cough with sputum, denies dyspnea, denies wheezing, Denies cough, Denies excessive sputum, Denies hemoptysis, Denies home oxygen Gastrointestinal: Denies abdominal pain, Denies diarrhea, Denies nausea, Denies vomiting Genitourinary: Denies dysuria, Denies urinary frequency Musculoskeletal: Denies gait dysfunction, Denies muscle weakness, Denies myalgias Integumentary: Denies pruritus, Denies rash, Denies wounds Neurological: Denies change in mentation, Denies change in speech, Denies gait dysfunction, Denies numbness, Denies weakness Psychiatric: Denies anxiety, Denies depression Endocrine: Denies fatigue, Denies weight change Objective - Vital Signs Vital signs: Vital Signs Temp 98.5 F 04/27/20 14:00 Pulse 74 04/27/20 15:24 Resp 16 04/27/20 15:24 BP 126/82 04/27/20 14:00 Pulse Ox 95 04/27/20 14:00 Intake & Output 04/26/20 04/27/20 04/27/20 18:59 06:59 18:59 Output Total 700 300 710 Balance -700 300 710 Output: Urine 700 300 710 Other: Voiding Method Toilet Toilet # Voids 3 # Bowel Movements 1 - Constitutional General appearance: Present: cooperative, no acute distress - EENT Eyes: Present: anicteric sclerae, EOMI, PERRLA, dentition normal, normal a ppearance ENT: Present: NA/AT, normal oropharynx - Neck Neck: Present: normal ROM - Respiratory Respiratory: right: rales, bilateral: CTA, negative: diminished, rhonchi, wheezing - Cardiovascular Rhythm: regular Heart sounds: normal: S1, S2 Abnormal Heart Sounds: Absent: systolic murmur, diastolic murmur, rub, S3 Gallop, S4 Gallop, click, other - Gastrointestinal General gastrointestinal: Present: normal bowel sounds - Integumentary Integumentary: Present: decreased turgor, normal - Neurologic Neurologic: Present: CNII-XII intact - Musculoskeletal Musculoskeletal: Present: gait normal, strength equal bilaterally - Psychiatric Psychiatric: Present: A&O x's 3, intact judgment & insight - Labs CBC & Chem 7: 04/24/20 23:24 04/27/20 05:28 Labs: Microbiology - Last 24 Hours (Table) 04/25/20 18:42 Blood Culture - Preliminary Blood No Growth after 24 hours Assessment and Plan Plan: Assessment and Plan: 1. Subacute mastoiditis presenting with headache, earache and dizziness. Patient failed outpatient treatment. Consult with ENT and infectious disease appreciated. Continue ciprofloxacin dexamethasone eardrops, dexamethasone 10 mg IV every 8 hours with tapering dose per Dr. Roberto. Continue cefepime per Dr. Bender. Midline order for anticipated IV cefepime at discharge. 2. History of coronary artery disease status post stenting of the mid RCA with bare metal stent. Continue aspirin 81 mg daily, atorvastatin 40 mg at bedtime, Imdur 30 mg daily, Lopressor 50 mg daily. 3. COPD without exacerbation. Continue Ventolin nebulizer treatment as needed, Proventil on a twice daily, Pulmicort twice daily, Singulair 10 mg daily. 4. Marijuana use and tobacco use and dependence. Patient is now down to 2-3 cigarettes per day. He finds nicotine patch. 5. Sleep maintenance insomnia start melatonin 6 mg at bedtime 5. Hypertension. Continue Lopressor 6. Hyperlipidemia. Continue atorvastatin. 7. DVT prophylaxis. SADIE orta 8. GI prophylaxis. Pepcid. Discharge plan: Home on Wednesday
--- NOTE | 2020-04-27 18:16 | PN ---
PROGRESS NOTE DATE OF SERVICE: 04/27/2020 REASON FOR FOLLOWUP: Right otitis media and mastoiditis. INTERVAL HISTORY: Patient is currently afebrile. Overall pain and discomfort to the right ear has slightly decreased. Denies having any drainage. Denies any chest pain or cough. No abdominal pain or diarrhea. PHYSICAL EXAMINATION: Blood pressure 126/82 with a pulse of 70, temperature in 98.5. He is 95% on room air. General description is a middle-aged male lying in bed in no distress. Respiratory system: Unlabored breathing, clear to auscultation anteriorly. Heart S1, S2. Regular rate and rhythm. Abdomen soft, no tenderness. LABS: Creatinine 0.9. DIAGNOSTIC IMPRESSION AND PLAN: Patient admitted to the hospital with pain to the right ear with evidence of mastoiditis on CT done at [facility]. The symptoms have been going on for more than a month. The patient is currently on cefepime, seemed to have shown some clinical improvement. May consider a two week course of IV cefepime in the outpatient setting with close outpatient followup. MMODL / IJN: [id number] /
[2020-04-27] MEDS: ATORVASTATIN 40 MG TAB PO SCH (21:06)
[2020-04-27] MEDS: MELATONIN 3 MG TABLET PO SCH (21:06)
[2020-04-27] MEDS: MONTELUKAST 10 MG TAB PO SCH (21:06)
--- NOTE | 2020-04-27 21:07 | PN ---
PROGRESS NOTE DATE OF SERVICE: 04/27/2020. SUBJECTIVE: Vital signs stable. Patient is afebrile. Patient states that the amount of pain that he has in the right ear continues to decrease, but the ear is braider tender. In addition to this, he is no longer having headaches, but he still experiences a slight amount of dizziness when he gets up. He currently remains on the dexamethasone. OBJECTIVE: Clinical examination of the ear reveals Young wick is intact. Palpation of the trachea, tragus, postauricular area reveals that the tenderness has decreased significantly but is still present. The remainder of the head, neck exam, chest cardiovascular exam unchanged since last visit. ASSESSMENT: Right eczematoid external otitis, right acute otitis media, right chronic serous otitis media and right acute mastoiditis. PLAN: I discussed with the patient that I would like to take him to surgery on Wednesday morning sometime and insert a ventilation (tympanostomy) tube under IV sedation. This would certainly allow the middle ear space to drain and because the middle ear space is connected to the mastoid air cells, it should allow the mastoid cells to aerate and hopefully speed resolution of his infectious process. The patient states that he is acceptable to this procedure and therefore I will schedule it and the OR will notify the floor when the patient will be sent for. The patient will be made n.p.o. after midnight on 04/28/2020. I have left instructions for what to put on the operative permit. MMODL / IJN: [id number] /
[2020-04-28] MEDS: FORMOTEROL FUMARATE 20 MCG/2 ML NEBU INHALATION SCH ×2 (07:42→20:19)
[2020-04-28] MEDS: IPRATROPIUM-ALBUTEROL 3 ML NEB INHALATION PRN ×3 (07:42→20:18)
[2020-04-28] MEDS: BUDESONIDE 0.5 MG/2 ML NEBU INHALATION SCH ×2 (07:42→20:18)
[2020-04-28] MEDS: ASPIRIN 81 MG PO SCH (07:49)
[2020-04-28] MEDS: HEPARIN SODIUM,PORCINE 5,000 UNIT/ML 1 ML VIAL SQ SCH ×2 (07:49→21:04)
[2020-04-28] MEDS: CEFEPIME 2 GM in SODIUM CHLORIDE 0.9% 100 ML IVPB SCH ×2 (07:49→21:04)
[2020-04-28] MEDS: ISOSORBIDE MONONITRATE ER 30 MG TAB.ER.24H PO SCH (07:50)
[2020-04-28] MEDS: FAMOTIDINE 20 MG TAB PO SCH (07:50)
[2020-04-28] MEDS: CLOPIDOGREL 75 MG TAB PO SCH (07:50)
[2020-04-28] MEDS: METOPROLOL TARTRATE 50 MG TAB PO SCH (07:50)
[2020-04-28] MEDS: MECLIZINE 25 MG TAB PO SCH ×3 (07:50→22:59)
[2020-04-28] MEDS: CIPROFLOXACIN-DEXAMETH 0.3-0.1% DROPS 7.5 ML BTL RIGHT EAR SCH ×3 (07:50→21:05)
[2020-04-28] MEDS: IBUPROFEN 400 MG TAB PO PRN ×2 (07:50→21:04)
[2020-04-28] MEDS: CLOTRIMAZOLE 1% CREAM 15 GM TUBE TOPICAL SCH ×2 (07:51→21:05)
[2020-04-28] MEDS: IPRATROPIUM 0.5 MG/2.5 ML NEBU INHALATION SCH ×2 (07:54→20:19)
[2020-04-28 09:51] LABS: African American GFR (CKD) 95.7 (60.0-200.0); Non-African American GFR(CKD) 82.6 (60.0-200.0)
[2020-04-28] MEDS: SENNOSIDES-DOCUSATE SODIUM 1 EACH TAB PO SCH (12:12)
--- NOTE | 2020-04-28 13:54 | P.PN ---
Subjective Progress Note Date: 04/28/20 History of Present Illness This is a 59-year-old male patient of Dr. Arias, Dr. De Luna and Dr. Hudson with past medical history of COPD, coronary artery disease status post stenting of the mid RCA with bare metal stent, hyperlipidemia, nicotine dependence, history of IV drug abuse, history of marijuana abuse, history of alcohol abuse. Patient gives history that he has had right ear pain for at least a month area and he has seen Dr. Roberto on 2 occasions and was using eardrops. He then presented to the [facility] on April 20 due to right ear pain. CAT scan was done at [facility] and was reported as mastoiditis and patient was transferred to [facility] emergency center. Dr. Kern was production intern who recommended patient be on oral antibiotics and amoxicillin was prescribed and patient was discharged home and instructed to follow-up with Dr. Arias and Dr. Roberto in one to 2 days. He then presented to [facility] emergency center again on April 22 with complaints of right ear pain that was worsening despite using antibiotics. He was also having drainage from his ear which is stopped by the time he was in the emergency center. Patient had Covid 19 testing on March 10 prior to hernia surgery done at [facility] Patient came into [facility] emergency center for evaluation. Afebrile, HR 103, BP 142/105, PO 97% on RA. CBC unremarkable. CMP unremarkable except for glucose of 112. COVID 19 not detected. [facility] and consult in place with ENT and infectious disease. 04/26: Patient has been seen by Dr. Spring with recommendations for cefepime. Vancomycin is discontinued today. Midline has been ordered with plan for cefe pime at discharge. Patient will be here over the weekend. Patient states that he is a little bit better. He does complain of headache. No drainage. He has a plugged sensation in the ear. He denies any abdominal pain, nausea or vomiting. Patient has been seen by Dr. Roberto and he switched eardrops to Ciprodex and inserted justine last sponge into his right external auditory canal. He started IV dexamethasone and has cleared him for discharge. Plan is to follow-up in the office for recheck and arrange for possible insertion of ventilation tube or possibly mastoidectomy or tympanoplasty/mastoidectomy in the right ear. 04/27: Patient is in for follow-up today, midline line is in place right arm, infusing without any difficulties, patient still has balance issue, headache, still not sleeping, patient does not have as much pain on chewing, however there is tenderness in the mastoid area and anterior temporomandibular joint, patient denies nausea vomiting fever or chills, has no shortness of breath. Plan for discharge on Wednesday, with final antibiotic recommendations from infectious disease, to finish cefepime through his right midline line. T-max 98.5, vitals are stable, O2 sats at room air 04/28: Patient complaining still of headache right-sided, patient has tenderness on the temporal region still mastoid area, and occipital area right side. Midline incision infusion well, patient's expected to complete IV cefepime to complete a two-week course, per Dr. spring likely to be discharged in a.m. Started on lidocaine cream 4% to be applied to the right side of the base of the head and posterior mastoid area, and constipation issues, Senokot as started. T-max 98.6, vitals are stable O2 at room air 97% no chest pain no diarrhea no shortness of breath no pleurisy no dizziness no falls Review of Systems Constitutional: Denies chills, Denies fatigue, Denies fever, Denies poor appetite, Denies weight loss Eyes: denies blurred vision, denies pain Ears, nose, mouth and throat: Denies dysphagia, Denies headache, Denies nasal congestion, Denies nasal discharge, Denies sore throat complains of right ear pain continues Cardiovascular: Denies denies chest pain, Reports shortness of breath, Denies edema, Denies lightheadedness, Denies palpitations, Denies syncope Respiratory: Denies cough with sputum, denies dyspnea, denies wheezing, Denies cough, Denies excessive sputum, Denies hemoptysis, Denies home oxygen Gastrointestinal: Denies abdominal pain, Denies diarrhea, Denies nausea, Denies vomiting Genitourinary: Denies dysuria, Denies urinary frequency Musculoskeletal: Denies gait dysfunction, Denies muscle weakness, Denies myalgias Integumentary: Denies pruritus, Denies rash, Denies wounds Neurological: Denies change in mentation, Denies change in speech, Denies gait dysfunction, Denies numbness, Denies weakness Psychiatric: Denies anxiety, Denies depression Endocrine: Denies fatigue, Denies weight change Objective - Vital Signs Vital signs: Vital Signs Temp 98.6 F 04/28/20 07:27 Pulse 68 04/28/20 08:04 Resp 18 04/28/20 08:04 BP 124/71 04/28/20 07:27 Pulse Ox 97 04/28/20 07:27 Intake & Output 04/27/20 04/28/20 04/28/20 18:59 06:59 18:59 Output Total 1310 Balance -1310 Output: Urine 1310 Other: Voiding Method Toilet Toilet Urinal # Voids 4 # Bowel Movements 1 - Constitutional General appearance: Present: cooperative, no acute distress, obese - EENT Eyes: Present: EOMI, PERRLA, dentition normal - Neck Neck: Present: normal ROM Thyroid: bilateral: normal size, negative: enlarged, firm - Respiratory Respiratory: bilateral: CTA, negative: diminished, dullness - Cardiovascular Rhythm: regular Heart sounds: normal: S1, S2 Abnormal Heart Sounds: Absent: systolic murmur, diastolic murmur, rub, S3 Gallop, S4 Gallop, click, other - Gastrointestinal General gastrointestinal: Present: soft - Integumentary Integumentary: Present: decreased turgor, normal - Neurologic Neurologic: Present: CNII-XII intact - Musculoskeletal Musculoskeletal: Present: gait normal, strength equal bilaterally - Psychiatric Psychiatric: Present: A&O x's 3, appropriate affect, intact judgment & insight - Labs CBC & Chem 7: 04/24/20 23:24 04/28/20 05:16 Labs: Microbiology - Last 24 Hours (Table) 04/25/20 18:42 Blood Culture - Preliminary Blood No Growth after 48 hours Assessment and Plan Plan: Assessment and Plan: 1. Subacute mastoiditis presenting with headache, earache and dizziness. Patient failed outpatient treatment. Consult with ENT and infectious disease appreciated. Continue ciprofloxacin dexamethasone eardrops, dexamethasone 10 mg IV every 8 hours with tapering dose per Dr. Roberto. Continue cefepime per Dr. Spring. Midline order for anticipated IV cefepime at discharge. 2. History of coronary artery disease status post stenting of the mid RCA with bare metal stent. Continue aspirin 81 mg daily, atorvastatin 40 mg at bedtime, Imdur 30 mg daily, Lopressor 50 mg daily. 3. COPD without exacerbation. Continue Ventolin nebulizer treatment as needed, Proventil on a twice daily, Pulmicort twice daily, Singulair 10 mg daily. 4. Marijuana use and tobacco use and dependence. Patient is now down to 2-3 cigarettes per day. He finds nicotine patch. 5. Sleep maintenance insomnia start melatonin 6 mg at bedtime 5. Hypertension. Continue Lopressor 6. Headache, related to mastoiditis, along with occipital neuralgia, referred pain. Voltaren or lidocaine 4% cream ordered to be applied 4 times a day on these areas. 6. Hyperlipidemia. Continue atorvastatin. 7. DVT prophylaxis. SADIE orta 8. GI prophylaxis. Pepcid. Discharge plan: Home on Wednesday IV antibiotic to midline, cefepime to complete [address] Spring following
[2020-04-28] MEDS: LIDOCAINE 4% CREAM 5 GM TUBE TOPICAL SCH ×3 (16:19→22:59)
[2020-04-28] MEDS: MONTELUKAST 10 MG TAB PO SCH (21:04)
[2020-04-28] MEDS: MELATONIN 3 MG TABLET PO SCH (21:04)
[2020-04-28] MEDS: ATORVASTATIN 40 MG TAB PO SCH (21:04)
--- NOTE | 2020-04-28 23:29 | PN ---
PROGRESS NOTE DATE OF SERVICE: 04/28/2020 REASON FOR FOLLOWUP: Right-sided otitis media and mastoiditis. INTERVAL HISTORY: Patient is currently afebrile. He mentioned the pain to the right ear posterior ear area has decreased intensity about 5-10. Denies any drainage from the ear. No chest pain, shortness of breath or cough. No abdominal pain or diarrhea. PHYSICAL EXAMINATION: Blood pressure 134/86, pulse of 64, temperature 98.3. He is 94% on room air. General description is a middle-aged male lying in bed in no distress. Respiratory system: Unlabored breathing. Clear to auscultation anteriorly. HEART: S1, S2. Regular rate and rhythm. ABDOMEN: Soft, no tenderness. LABS: No new labs have been obtained today. DIAGNOSTIC IMPRESSION AND PLAN: Patient admitted to hospital with right ear posterior pain with abnormal CT done at the outside facility with concern for the patient is scheduled for surgery Wednesday morning for tympanoplasty. Will recommend obtaining cultures of possible to help identify infected pathogen and narrow down his antibiotics. Continue cefepime at this point and monitor clinical course closely. MMODL / IJN: [id number] /
--- NOTE | 2020-04-29 05:53 | PN ---
PROGRESS NOTE DATE OF SERVICE: 04/28/2020 SUBJECTIVE: Vital signs stable. The patient is afebrile. The patient states that the right ear remains tender and there is pressure present. OBJECT: HEENT: Patient is normocephalic. Examination right ear reveals that the gutierrez wick is intact and is moist. Palpation of the patient's ear and tragus remains slightly tender. The postauricular pain has decreased. The remainder of the head and neck exam, chest cardiovascular exam unchanged since last visit. ASSESSMENT: 1. Right eczematoid external otitis. 2. Right external otitis. 3. Right chronic serous otitis media. 4. Right acute mastoiditis. PLAN: The patient is scheduled to undergo a right myringotomy with insertion of a ventilation tube under IV sedation sometime tomorrow, depending upon when he can be fitted into the surgical schedule, and this will be done in the operating room. Hopefully, this will help speed up the resolution of the patient's symptoms. He will be returned to the floor after surgery. MMODL / IJN: [id number] /
[2020-04-29] MEDS: IPRATROPIUM 0.5 MG/2.5 ML NEBU INHALATION SCH ×2 (08:03→20:28)
[2020-04-29] MEDS: BUDESONIDE 0.5 MG/2 ML NEBU INHALATION SCH ×2 (08:03→20:01)
[2020-04-29] MEDS: FORMOTEROL FUMARATE 20 MCG/2 ML NEBU INHALATION SCH ×2 (08:03→20:01)
[2020-04-29] MEDS: METOPROLOL TARTRATE 50 MG TAB PO SCH (09:16)
[2020-04-29] MEDS: CEFEPIME 2 GM in SODIUM CHLORIDE 0.9% 100 ML IVPB SCH ×2 (09:17→21:22)
[2020-04-29] MEDS: IBUPROFEN 400 MG TAB PO PRN ×2 (09:17→21:21)
[2020-04-29] MEDS: CLOTRIMAZOLE 1% CREAM 15 GM TUBE TOPICAL SCH ×2 (09:19→21:22)
[2020-04-29] MEDS: ISOSORBIDE MONONITRATE ER 30 MG TAB.ER.24H PO SCH (09:21)
[2020-04-29] MEDS: CLOPIDOGREL 75 MG TAB PO SCH (09:21)
[2020-04-29] MEDS: SENNOSIDES-DOCUSATE SODIUM 1 EACH TAB PO SCH (09:21)
[2020-04-29] MEDS: MECLIZINE 25 MG TAB PO SCH ×3 (09:21→23:29)
[2020-04-29] MEDS: HEPARIN SODIUM,PORCINE 5,000 UNIT/ML 1 ML VIAL SQ SCH ×2 (09:21→21:21)
[2020-04-29] MEDS: ASPIRIN 81 MG PO SCH (09:21)
[2020-04-29] MEDS: CIPROFLOXACIN-DEXAMETH 0.3-0.1% DROPS 7.5 ML BTL RIGHT EAR SCH ×3 (09:21→21:22)
[2020-04-29] MEDS: FAMOTIDINE 20 MG TAB PO SCH (09:21)
[2020-04-29] MEDS: LIDOCAINE 4% CREAM 5 GM TUBE TOPICAL SCH ×4 (09:21→21:22)
--- NOTE | 2020-04-29 11:21 | P.PN ---
Subjective Progress Note Date: 04/29/20 History of Present Illness This is a 59-year-old male patient of Dr. Arias, Dr. De Luna and Dr. Hudson with past medical history of COPD, coronary artery disease status post stenting of the mid RCA with bare metal stent, hyperlipidemia, nicotine dependence, history of IV drug abuse, history of marijuana abuse, history of alcohol abuse. Patient gives history that he has had right ear pain for at least a month area and he has seen Dr. Roberto on 2 occasions and was using eardrops. He then presented to the [facility] on April 20 due to right ear pain. CAT scan was done at [facility] and was reported as mastoiditis and patient was transferred to [facility] emergency center. Dr. Kern was circulation librarian who recommended patient be on oral antibiotics and amoxicillin was prescribed and patient was discharged home and instructed to follow-up with Dr. Arias and Dr. Roberto in one to 2 days. He then presented to [facility] emergency center again on April 22 with complaints of right ear pain that was worsening despite using antibiotics. He was also having drainage from his ear which is stopped by the time he was in the emergency center. Patient had Covid 19 testing on March 10 prior to hernia surgery done at [facility] Patient came into [facility] emergency center for evaluation. Afebrile, HR 103, BP 142/105, PO 97% on RA. CBC unremarkable. CMP unremarkable except for glucose of 112. COVID 19 not detected. [facility] and consult in place with ENT and infectious disease. 04/26: Patient has been seen by Dr. Spring with recommendations for cefepime. Vancomycin is discontinued today. Midline has been ordered with plan for cefep mckenzie at discharge. Patient will be here over the weekend. Patient states that he is a little bit better. He does complain of headache. No drainage. He has a plugged sensation in the ear. He denies any abdominal pain, nausea or vomiting. Patient has been seen by Dr. Roberto and he switched eardrops to Ciprodex and inserted justine last sponge into his right external auditory canal. He started IV dexamethasone and has cleared him for discharge. Plan is to follow-up in the office for recheck and arrange for possible insertion of ventilation tube or possibly mastoidectomy or tympanoplasty/mastoidectomy in the right ear. 04/27: Patient is in for follow-up today, midline line is in place right arm, infusing without any difficulties, patient still has balance issue, headache, still not sleeping, patient does not have as much pain on chewing, however there is tenderness in the mastoid area and anterior temporomandibular joint, patient denies nausea vomiting fever or chills, has no shortness of breath. Plan for discharge on Wednesday, with final antibiotic recommendations from infectious disease, to finish cefepime through his right midline line. T-max 98.5, vitals are stable, O2 sats at room air 04/28: Patient complaining still of headache right-sided, patient has tenderness on the temporal region still mastoid area, and occipital area right side. Midline incision infusion well, patient's expected to complete IV cefepime to complete a two-week course, per Dr. spring likely to be discharged in a.m. Started on lidocaine cream 4% to be applied to the right side of the base of the head and posterior mastoid area, and constipation issues, Senokot as started. T-max 98.6, vitals are stable O2 at room air 97% no chest pain no diarrhea no shortness of breath no pleurisy no dizziness no falls 04/29: Patient is scheduled today for myringotomy with insertion of ventilation tube with Dr. Roberto. Dr. Escobedo is requesting the aerobic and anaerobic cultures be obtained during procedure. Patient states that he continues to have significant pain to the right ear. Patient has been continued on IV antibiotics in the form of Midline was inserted on April 26. Patient has been afebrile, heart rate 60s, blood pressure 118/77, pulse ox 96% on room air. Creatinine 1. Covid 19 not detected. Review of Systems Constitutional: Denies chills, Denies fatigue, Denies fever, Denies poor appetite, Denies weight loss Eyes: denies blurred vision, denies pain Ears, nose, mouth and throat: Denies dysphagia, Denies headache, Denies nasal congestion, Denies nasal discharge, Denies sore throat complains of right ear pain continues, no drainage Cardiovascular: Denies denies chest pain, Reports shortness of breath, Denies edema, Denies lightheadedness, Denies palpitations, Denies syncope Respiratory: Denies cough with sputum, denies dyspnea, denies wheezing, Denies cough, Denies excessive sputum, Denies hemoptysis, Denies home oxygen Gastrointestinal: Denies abdominal pain, Denies diarrhea, Denies nausea, Denies vomiting Genitourinary: Denies dysuria, Denies urinary frequency Musculoskeletal: Denies gait dysfunction, Denies muscle weakness, Denies myalgias Integumentary: Denies pruritus, Denies rash, Denies wounds Neurological: Denies change in mentation, Denies change in speech, Denies gait dysfunction, Denies numbness, Denies weakness Psychiatric: Denies anxiety, Denies depression Endocrine: Denies fatigue, Denies weight change Physical Examination Gen: This is a 59-year-old male. He is resting in bed and appears to be in no acute distress. HEENT: Head is atraumatic, normocephalic. Pupils equal, round. Sclerae is anicteric. Edema and swelling to the right ear area, tenderness to the mastoid. TMJ tenderness. NECK: Supple. No JVD. No lymphadenopathy. No thyromegaly. LUNGS: Clear to auscultation. No wheezes or rhonchi. No intercostal retractions. HEART: Regular rate and rhythm. No murmur. ABDOMEN: Soft. Bowel sounds are present. No masses. No tenderness. EXTREMITIES: No pedal edema. No calf tenderness. NEUROLOGICAL: Patient is awake, alert and oriented x3. Cranial nerves 2 through 12 are grossly intact. Assessment and Plan: 1. Subacute mastoiditis presenting with headache, earache and dizziness. Patient failed outpatient treatment. Consult with ENT and infectious disease appreciated. Continue ciprofloxacin dexamethasone eardrops, dexamethasone 10 mg IV every 8 hours with tapering dose per Dr. Roberto. Patient is scheduled for surgery today. Continue cefepime per Dr. Spring. Midline in place with IV cefepime at discharge. 2. History of coronary artery disease status post stenting of the mid RCA with bare metal stent. Continue aspirin 81 mg daily, atorvastatin 40 mg at bedtime, Imdur 30 mg daily, Lopressor 50 mg daily. 3. COPD without exacerbation. Continue Ventolin nebulizer treatment as needed, Proventil on a twice daily, Pulmicort twice daily, Singulair 10 mg daily. 4. Marijuana use and tobacco use and dependence. Patient is now down to 2-3 cigarettes per day. He finds nicotine patch. 5. Hypertension. Continue Lopressor 6. Hyperlipidemia. Continue atorvastatin. 7. DVT prophylaxis. SADIE hose 8. GI prophylaxis. Pepcid. Discharge plan: Home possibly on Wednesday. Impression and plan of care have been directed as dictated by the signing physician. Daysi Nunn nurse practitioner acting as scribe for signing physician. Objective - Vital Signs Vital signs: Vital Signs Temp 98.0 F 04/29/20 06:55 Pulse 64 04/29/20 08:27 Resp 18 04/29/20 07:45 BP 118/77 04/29/20 06:55 Pulse Ox 96 04/29/20 06:55 Intake & Output 04/28/20 04/29/20 04/29/20 18:59 06:59 18:59 Output Total 600 375 Balance -600 -375 Output: Urine 600 375 Other: Voiding Method Toilet Toilet Urinal Urinal - Labs CBC & Chem 7: 04/24/20 23:24 04/28/20 05:16 Labs: Microbiology - Last 24 Hours (Table) 04/25/20 18:42 Blood Culture - Preliminary Blood No Growth after 72 hours
[2020-04-29] MEDS ORDERED: IV FLUID CONTINUATION 1,000 ML IV ONE (13:13)
[2020-04-29] MEDS ORDERED: ONDANSETRON 4 MG/2 ML VIAL IVP ONE (13:24)
[2020-04-29] MEDS ORDERED: fentaNYL (PF) 50 MCG/ML 2 ML AMP ONE (13:39)
[2020-04-29] MEDS ORDERED: MIDAZOLAM 2 MG/2 ML VIAL ONE (13:39)
[2020-04-29] MEDS ORDERED: PROPOFOL 10 MG/ML 20 ML VIAL IV ONE (13:39)
[2020-04-29] MEDS ORDERED: CIPROFLOXACIN-DEXAMETH 0.3-0.1% DROPS 7.5 ML BTL RIGHT EAR ONE (13:57)
[2020-04-29] MEDS ORDERED: SODIUM CHLORIDE 0.9% 500 ML 500 ML IV ONE (15:04)
[2020-04-29] MEDS: HYDROmorphone 1 MG/ML 1 ML SYRINGE IVP PRN (16:10)
[2020-04-29] MEDS: LACTATED RINGERS 1,000 ML IV SCH (16:17)
--- NOTE | 2020-04-29 19:37 | OP ---
OPERATIVE REPORT PREOPERATIVE DIAGNOSES: Right chronic serous otitis media, right acute mastoiditis, right external otitis. POSTOPERATIVE DIAGNOSES: Right chronic serous otitis media, right acute mastoiditis, right external otitis. ANESTHESIA: General. OPERATIVE PROCEDURE: Right myringotomy with insertion of Patric type titanium ventilation tube. OPERATING SURGEON: Dr. Roberto. COMPLICATIONS: None. ESTIMATED BLOOD LOSS: 0.2/10 of a mL. OPERATIVE PROCEDURE DETAILS: The patient was placed on the operating table in supine position and after uneventful induction and a LMA intubation, satisfactory general anesthesia was obtained. Next, the patient's right ear was draped in the usual and customary fashion following which, using a #3 aural speculum a previously inserted Young wick was removed from the right external auditory canal. Next, the right external auditory canal was cleansed of all wax and debris. Inspection of the right tympanic membrane did not reveal evidence of any obvious perforation, cholesteatoma, etc. Next, using the myringotomy knife, an incision was made in the anterior/inferior quadrant of the right tympanic membrane. The Infectious Disease Department had requested cultures be done on the middle ear fluid for aerobes and anaerobes. However, the ear canal in most adults is too small to fully admit the cotton tip of the culture stick. In the ENT, ear cultures are rarely performed because of cross contamination from the external auditory canal. When it is performed, it is done using a special type of cotton tip applicator, which is not available at this hospital and usually is only available at major medical centers. Therefore the fluid in the middle ear space was suctioned using a fine tip Valencia suction tip. This caused the middle-ear effusion to collect mainly in the distal portion of the suction tubing. The Valencia suction tip was removed from the suction tubing and through the clear suction tubing, one could see the middle ear effusion, which I collected along the spann of the suction tubing. A portion of the suction tubing was cut and using the applicators supplied with the culture tube, this was used to swab the inner aspect of the tubing and thus collect most if not all of this middle ear effusion, which had coated the suction tube. The specimen was sent to the laboratory for analysis for aerobes and anaerobic microorganisms. Next, using the myringotomy incision, the incision was enlarged further. Following this, a Patric titanium ventilation tube was inserted through the previously made myringotomy incision without any difficulty. The external auditory canal was then filled with approximately 10 drops of Ciprodex otic solution. At this point, the procedure was terminated. There were no intraoperative complications. Patient tolerated the procedure well. Culture results are pending. The patient was returned to the recovery room in satisfactory condition. MMODL / IJN: [id number] /
[2020-04-29] MEDS: IPRATROPIUM-ALBUTEROL 3 ML NEB INHALATION PRN (20:01)
[2020-04-29] MEDS: MELATONIN 3 MG TABLET PO SCH (21:21)
[2020-04-29] MEDS: ATORVASTATIN 40 MG TAB PO SCH (21:22)
[2020-04-29] MEDS: MONTELUKAST 10 MG TAB PO SCH (21:22)
--- NOTE | 2020-04-29 22:12 | PN ---
PROGRESS NOTE DATE OF SERVICE: 04/29/2020 REASON FOR FOLLOWUP: Right otitis media and mastoiditis. INTERVAL COURSE: The patient was taken to the OR in pain, status post right myringotomy with insertion of Patric type titanium ventilation tube. Culture has been obtained. The patient denies having any chest pain. No shortness of breath or cough. No nausea, vomiting, abdominal pain or diarrhea. PHYSICAL EXAMINATION: Blood pressure is 105/73, pulse of 58. Temperature 98. General description is a middle-aged male lying in bed in no distress. Respiratory system: Unlabored breathing. Clear to auscultation anteriorly. Heart S1, S2. Regular rate and rhythm. ABDOMEN: Soft, no tenderness. LABS: Creatinine 1.0. DIAGNOSTIC IMPRESSION AND PLAN: Patient with right otitis media. The patient is currently covered with cefepime. Will wait for the culture to finalize to determine discharge antibiotics. Continue supportive care. MMODL / IJN: [id number] /
[2020-04-30] MEDS: CLOPIDOGREL 75 MG TAB PO SCH (07:42)
[2020-04-30] MEDS: METOPROLOL TARTRATE 50 MG TAB PO SCH (07:42)
[2020-04-30] MEDS: ISOSORBIDE MONONITRATE ER 30 MG TAB.ER.24H PO SCH (07:42)
[2020-04-30] MEDS: SENNOSIDES-DOCUSATE SODIUM 1 EACH TAB PO SCH (07:42)
[2020-04-30] MEDS: MECLIZINE 25 MG TAB PO SCH ×3 (07:43→22:20)
[2020-04-30] MEDS: HEPARIN SODIUM,PORCINE 5,000 UNIT/ML 1 ML VIAL SQ SCH ×2 (07:43→19:43)
[2020-04-30] MEDS: ASPIRIN 81 MG PO SCH (07:43)
[2020-04-30] MEDS: FAMOTIDINE 20 MG TAB PO SCH (07:43)
[2020-04-30] MEDS: IBUPROFEN 400 MG TAB PO PRN (07:43)
[2020-04-30] MEDS: CEFEPIME 2 GM in SODIUM CHLORIDE 0.9% 100 ML IVPB SCH ×2 (07:44→19:45)
[2020-04-30] MEDS: CLOTRIMAZOLE 1% CREAM 15 GM TUBE TOPICAL SCH ×2 (07:44→19:48)
[2020-04-30] MEDS: CIPROFLOXACIN-DEXAMETH 0.3-0.1% DROPS 7.5 ML BTL RIGHT EAR SCH ×3 (07:45→19:46)
[2020-04-30] MEDS: LIDOCAINE 4% CREAM 5 GM TUBE TOPICAL SCH ×3 (07:46→19:49)
[2020-04-30] MEDS: FORMOTEROL FUMARATE 20 MCG/2 ML NEBU INHALATION SCH ×2 (08:25→21:15)
[2020-04-30] MEDS: IPRATROPIUM 0.5 MG/2.5 ML NEBU INHALATION SCH ×2 (08:25→21:16)
[2020-04-30] MEDS: BUDESONIDE 0.5 MG/2 ML NEBU INHALATION SCH ×2 (08:25→21:16)
--- NOTE | 2020-04-30 10:28 | P.PN ---
Subjective Progress Note Date: 04/30/20 History of Present Illness This is a 59-year-old male patient of Dr. Arias, Dr. De Luna and Dr. Hudson with past medical history of COPD, coronary artery disease status post stenting of the mid RCA with bare metal stent, hyperlipidemia, nicotine dependence, history of IV drug abuse, history of marijuana abuse, history of alcohol abuse. Patient gives history that he has had right ear pain for at least a month area and he has seen Dr. Roberto on 2 occasions and was using eardrops. He then presented to the [facility] on April 20 due to right ear pain. CAT scan was done at [facility] and was reported as mastoiditis and patient was transferred to [facility] emergency center. Dr. Kern was partition setter who recommended patient be on oral antibiotics and amoxicillin was prescribed and patient was discharged home and instructed to follow-up with Dr. Arias and Dr. Roberto in one to 2 days. He then presented to [facility] emergency center again on April 22 with complaints of right ear pain that was worsening despite using antibiotics. He was also having drainage from his ear which is stopped by the time he was in the emergency center. Patient had Covid 19 testing on March 10 prior to hernia surgery done at [facility] Patient came into [facility] emergency center for evaluation. Afebrile, HR 103, BP 142/105, PO 97% on RA. CBC unremarkable. CMP unremarkable except for glucose of 112. COVID 19 not detected. [facility] and consult in place with ENT and infectious disease. 04/26: Patient has been seen by Dr. Spring with recommendations for cefepime. Vancomycin is discontinued today. Midline has been ordered with plan for cefep mckenzie at discharge. Patient will be here over the weekend. Patient states that he is a little bit better. He does complain of headache. No drainage. He has a plugged sensation in the ear. He denies any abdominal pain, nausea or vomiting. Patient has been seen by Dr. Roberto and he switched eardrops to Ciprodex and inserted justine last sponge into his right external auditory canal. He started IV dexamethasone and has cleared him for discharge. Plan is to follow-up in the office for recheck and arrange for possible insertion of ventilation tube or possibly mastoidectomy or tympanoplasty/mastoidectomy in the right ear. 04/27: Patient is in for follow-up today, midline line is in place right arm, infusing without any difficulties, patient still has balance issue, headache, still not sleeping, patient does not have as much pain on chewing, however there is tenderness in the mastoid area and anterior temporomandibular joint, patient denies nausea vomiting fever or chills, has no shortness of breath. Plan for discharge on Wednesday, with final antibiotic recommendations from infectious disease, to finish cefepime through his right midline line. T-max 98.5, vitals are stable, O2 sats at room air 04/28: Patient complaining still of headache right-sided, patient has tenderness on the temporal region still mastoid area, and occipital area right side. Midline incision infusion well, patient's expected to complete IV cefepime to complete a two-week course, per Dr. spring likely to be discharged in a.m. Started on lidocaine cream 4% to be applied to the right side of the base of the head and posterior mastoid area, and constipation issues, Senokot as started. T-max 98.6, vitals are stable O2 at room air 97% no chest pain no diarrhea no shortness of breath no pleurisy no dizziness no falls 04/29: Patient is scheduled today for myringotomy with insertion of ventilation tube with Dr. Roberto. Dr. Melendez is requesting the aerobic and anaerobic cultures be obtained during procedure. Patient states that he continues to have significant pain to the right ear. Patient has been continued on IV antibiotics in the form of cefepime. Midline was inserted on April 26. Patient has been afebrile, heart rate 60s, blood pressure 118/77, pulse ox 96% on room air. Creatinine 1. Covid 19 not detected. 04/30: Yesterday, patient underwent myringotomy with insertion of ventilation tube with Dr. Roberto.patient states that his pain to the right ear is significantly improved today. He complains of a headache that is a number 23. He has been afebrile, heart rate 85, blood pressure 128/84, pulse ox 97% on room air. Cultures were obtained during procedure yesterday. Dr. Spring is requesting the patient wait for discharge until cultures are reported. He is currently covered with cefepime. Review of Systems Constitutional: Denies chills, Denies fatigue, Denies fever, Denies poor appetite, Denies weight loss Eyes: denies blurred vision, denies pain Ears, nose, mouth and throat: Denies dysphagia, Denies headache, Denies nasal congestion, Denies nasal discharge, Denies sore throat complains of right ear pain decreased, no drainage Cardiovascular: Denies denies chest pain, Reports shortness of breath, Denies edema, Denies lightheadedness, Denies palpitations, Denies syncope Respiratory: Denies cough with sputum, denies dyspnea, denies wheezing, Denies cough, Denies excessive sputum, Denies hemoptysis, Denies home oxygen Gastrointestinal: Denies abdominal pain, Denies diarrhea, Denies nausea, Denies vomiting Genitourinary: Denies dysuria, Denies urinary frequency Musculoskeletal: Denies gait dysfunction, Denies muscle weakness, Denies myalgias Integumentary: Denies pruritus, Denies rash, Denies wounds Neurological: Denies change in mentation, Denies change in speech, Denies gait dysfunction, Denies numbness, Denies weakness Psychiatric: Denies anxiety, Denies depression Endocrine: Denies fatigue, Denies weight change Physical Examination Gen: This is a 59-year-old male. He is resting in bed and appears to be in no acute distress. HEENT: Head is atraumatic, normocephalic. Pupils equal, round. Sclerae is anicteric. Edema and swelling to the right ear area improved. NECK: Supple. No JVD. No lymphadenopathy. No thyromegaly. LUNGS: Clear to auscultation. No wheezes or rhonchi. No intercostal retractions. HEART: Regular rate and rhythm. No murmur. ABDOMEN: Soft. Bowel sounds are present. No masses. No tenderness. EXTREMITIES: No pedal edema. No calf tenderness. NEUROLOGICAL: Patient is awake, alert and oriented x3. Cranial nerves 2 through 12 are grossly intact. Assessment and Plan: 1. Subacute mastoiditis presenting with headache, earache and dizziness. Patient failed outpatient treatment. Consult with ENT and infectious disease appreciated. Continue ciprofloxacin dexamethasone eardrops, dexamethasone 10 mg IV every 8 hours with tapering dose per Dr. Roberto. S/p myringotomy with insertion of ventilation tube. Continue cefepime per Dr. Spring. Midline in place with IV cefepime at discharge.Currently waiting for cultures from procedure done yesterday. 2. History of coronary artery disease status post stenting of the mid RCA with bare metal stent. Continue aspirin 81 mg daily, atorvastatin 40 mg at bedtime, Imdur 30 mg daily, Lopressor 50 mg daily. 3. COPD without exacerbation. Continue Ventolin nebulizer treatment as needed, Proventil on a twice daily, Pulmicort twice daily, Singulair 10 mg daily. 4. Marijuana use and tobacco use and dependence. Patient is now down to 2-3 cigarettes per day. He finds nicotine patch. 5. Hypertension. Continue Lopressor 6. Hyperlipidemia. Continue atorvastatin. 7. DVT prophylaxis. SADIE hose 8. GI prophylaxis. Pepcid. Discharge plan: Home possibly on Wednesday. Impression and plan of care have been directed as dictated by the signing physician. Daysi Nunn nurse practitioner acting as scribe for signing physician. Objective - Vital Signs Vital signs: Vital Signs Temp 98.5 F 04/30/20 07:10 Pulse 84 04/30/20 08:44 Resp 18 04/30/20 07:10 BP 128/84 04/30/20 07:10 Pulse Ox 97 04/30/20 07:10 Intake & Output 04/29/20 04/30/20 04/30/20 18:59 06:59 18:59 Intake Total 425 Output Total 300 525 Balance 125 -525 Intake: IV 425 Output: Urine 300 525 Other: Voiding Method Toilet Toilet Toilet Urinal Urinal Urinal # Voids 3 - Labs CBC & Chem 7: 04/24/20 23:24 04/28/20 05:16 Labs: Microbiology - Last 24 Hours (Table) 04/29/20 14:30 Gram Stain - Preliminary Ear - Right Wound Culture - Preliminary 04/29/20 14:30 Fungal Culture - Preliminary Ear - Right 04/29/20 14:30 Anaerobic Culture - Preliminary Ear - Right 04/25/20 18:42 Blood Culture - Preliminary Blood No Growth after 96 hours
--- NOTE | 2020-04-30 17:59 | PN ---
PROGRESS NOTE DATE OF SERVICE: REASON FOR FOLLOWUP: Right otitis media and mastoiditis. INTERVAL HISTORY: The patient is status post tympanoplasty yesterday and the patient seems to be feeling better as far as the pain is concerned. Denies having any chest pain or shortness of breath or cough. No abdominal pain or diarrhea. PHYSICAL EXAMINATION: Blood pressure 121/78 with a pulse of 68, temperature 98.3. He is 96% on room air. General description is a middle-aged male lying in bed in no distress. RESPIRATORY SYSTEM: Unlabored breathing. Clear to auscultation anteriorly. HEART: S1, S2. Regular rate and rhythm. ABDOMEN: Soft. No tenderness. LABS: Creatinine is 1.0. DIAGNOSTIC IMPRESSION AND PLAN: Patient with right-sided mastoiditis and serous otitis media, status post tympanoplasty yesterday. We will wait for the culture to finalize to determine discharge antibiotics. Continue with cefepime at this point and monitor his clinical course closely. MMODL / IJN: [id number] /
[2020-04-30] MEDS: LACTATED RINGERS 1,000 ML IV SCH (19:19)
[2020-04-30] MEDS: HYDROmorphone 1 MG/ML 1 ML SYRINGE IVP PRN (19:43)
[2020-04-30] MEDS: ATORVASTATIN 40 MG TAB PO SCH (19:45)
[2020-04-30] MEDS: MONTELUKAST 10 MG TAB PO SCH (19:45)
[2020-04-30] MEDS: MELATONIN 3 MG TABLET PO SCH (22:20)
[2020-05-01] MEDS: FAMOTIDINE 20 MG TAB PO SCH (07:39)
[2020-05-01] MEDS: METOPROLOL TARTRATE 50 MG TAB PO SCH (07:39)
[2020-05-01] MEDS: MECLIZINE 25 MG TAB PO SCH ×3 (07:39→22:45)
[2020-05-01] MEDS: ASPIRIN 81 MG PO SCH (07:39)
[2020-05-01] MEDS: SENNOSIDES-DOCUSATE SODIUM 1 EACH TAB PO SCH (07:39)
[2020-05-01] MEDS: CEFEPIME 2 GM in SODIUM CHLORIDE 0.9% 100 ML IVPB SCH ×2 (07:39→20:30)
[2020-05-01] MEDS: CLOPIDOGREL 75 MG TAB PO SCH (07:40)
[2020-05-01] MEDS: ISOSORBIDE MONONITRATE ER 30 MG TAB.ER.24H PO SCH (07:40)
[2020-05-01] MEDS: HEPARIN SODIUM,PORCINE 5,000 UNIT/ML 1 ML VIAL SQ SCH ×2 (07:40→20:29)
[2020-05-01] MEDS ORDERED: HYDROcodone/APAP 5-325MG 1 EACH TAB PO PRN (08:27)
[2020-05-01] MEDS: LIDOCAINE 4% CREAM 5 GM TUBE TOPICAL SCH ×4 (09:27→20:29)
[2020-05-01] MEDS: CLOTRIMAZOLE 1% CREAM 15 GM TUBE TOPICAL SCH ×2 (09:27→20:31)
[2020-05-01] MEDS: BUDESONIDE 0.5 MG/2 ML NEBU INHALATION SCH ×2 (10:05→20:53)
[2020-05-01] MEDS: IPRATROPIUM 0.5 MG/2.5 ML NEBU INHALATION SCH ×2 (11:05→20:53)
[2020-05-01] MEDS: FORMOTEROL FUMARATE 20 MCG/2 ML NEBU INHALATION SCH ×2 (11:05→20:53)
--- NOTE | 2020-05-01 11:25 | P.PN ---
Subjective Progress Note Date: 05/01/20 History of Present Illness This is a 59-year-old male patient of Dr. Arias, Dr. De Luna and Dr. Hudson with past medical history of COPD, coronary artery disease status post stenting of the mid RCA with bare metal stent, hyperlipidemia, nicotine dependence, history of IV drug abuse, history of marijuana abuse, history of alcohol abuse. Patient gives history that he has had right ear pain for at least a month area and he has seen Dr. Roberto on 2 occasions and was using eardrops. He then presented to the [facility] on April 20 due to right ear pain. CAT scan was done at [facility] and was reported as mastoiditis and patient was transferred to [facility] emergency center. Dr. Kern was homemaking rehabilitation consultant who recommended patient be on oral antibiotics and amoxicillin was prescribed and patient was discharged home and instructed to follow-up with Dr. Arias and Dr. Roberto in one to 2 days. He then presented to [facility] emergency center again on April 22 with complaints of right ear pain that was worsening despite using antibiotics. He was also having drainage from his ear which is stopped by the time he was in the emergency center. Patient had Covid 19 testing on March 10 prior to hernia surgery done at [facility] Patient came into [facility] emergency center for evaluation. Afebrile, HR 103, BP 142/105, PO 97% on RA. CBC unremarkable. CMP unremarkable except for glucose of 112. COVID 19 not detected. [facility] and consult in place with ENT and infectious disease. 04/26: Patient has been seen by Dr. Spring with recommendations for cefepime. Vancomycin is discontinued today. Midline has been ordered with plan for cefep mckenzie at discharge. Patient will be here over the weekend. Patient states that he is a little bit better. He does complain of headache. No drainage. He has a plugged sensation in the ear. He denies any abdominal pain, nausea or vomiting. Patient has been seen by Dr. Roberto and he switched eardrops to Ciprodex and inserted justine last sponge into his right external auditory canal. He started IV dexamethasone and has cleared him for discharge. Plan is to follow-up in the office for recheck and arrange for possible insertion of ventilation tube or possibly mastoidectomy or tympanoplasty/mastoidectomy in the right ear. 04/27: Patient is in for follow-up today, midline line is in place right arm, infusing without any difficulties, patient still has balance issue, headache, still not sleeping, patient does not have as much pain on chewing, however there is tenderness in the mastoid area and anterior temporomandibular joint, patient denies nausea vomiting fever or chills, has no shortness of breath. Plan for discharge on Wednesday, with final antibiotic recommendations from infectious disease, to finish cefepime through his right midline line. T-max 98.5, vitals are stable, O2 sats at room air 04/28: Patient complaining still of headache right-sided, patient has tenderness on the temporal region still mastoid area, and occipital area right side. Midline incision infusion well, patient's expected to complete IV cefepime to complete a two-week course, per Dr. spring likely to be discharged in a.m. Started on lidocaine cream 4% to be applied to the right side of the base of the head and posterior mastoid area, and constipation issues, Senokot as started. T-max 98.6, vitals are stable O2 at room air 97% no chest pain no diarrhea no shortness of breath no pleurisy no dizziness no falls 04/29: Patient is scheduled today for myringotomy with insertion of ventilation tube with Dr. Roberto. Dr. Melendez is requesting the aerobic and anaerobic cultures be obtained during procedure. Patient states that he continues to have significant pain to the right ear. Patient has been continued on IV antibiotics in the form of cefepime. Midline was inserted on April 26. Patient has been afebrile, heart rate 60s, blood pressure 118/77, pulse ox 96% on room air. Creatinine 1. Covid 19 not detected. 04/30: Yesterday, patient underwent myringotomy with insertion of ventilation tube with Dr. Roberto.patient states that his pain to the right ear is significantly improved today. He complains of a headache that is a number 23. He has been afebrile, heart rate 85, blood pressure 128/84, pulse ox 97% on room air. Cultures were obtained during procedure yesterday. Dr. Spring is requesting the patient wait for discharge until cultures are reported. He is currently covered with cefepime. 2/: She denies any new complaints. Pain is significantly improved to the right ear mastoid area. Patient states that he is eating well. Wound cultures still in progress. We'll transition IV Dilaudid and Mccarley. Patient's been afebrile, heart rate 78, blood pressure 124/78, pulse ox 97% on room air. Anticipate possible discharge by tomorrow. Review of Systems Constitutional: Denies chills, Denies fatigue, Denies fever, Denies poor appetite, Denies weight loss Ears, nose, mouth and throat: Denies dysphagia, Denies headache, Denies nasal congestion, Denies nasal discharge, Denies sore throat complains of right ear pain improved, no drainage Cardiovascular: Denies denies chest pain, Reports shortness of breath, Denies edema, Denies lightheadedness, Denies palpitations, Denies syncope Respiratory: Denies cough with sputum, denies dyspnea, denies wheezing, Denies cough, Denies excessive sputum, Denies hemoptysis, Denies home oxygen Gastrointestinal: Denies abdominal pain, Denies diarrhea, Denies nausea, Denies vomiting Genitourinary: Denies dysuria, Denies urinary frequency Musculoskeletal: Denies gait dysfunction, Denies muscle weakness, Denies myalgias Integumentary: Denies pruritus, Denies rash, Denies wounds Neurological: Denies change in mentation, Denies change in speech, Denies gait dysfunction, Denies numbness, Denies weakness Psychiatric: Denies anxiety, Denies depression Endocrine: Denies fatigue, Denies weight change Physical Examination Gen: This is a 59-year-old male. He is resting in bed and appears to be in no acute distress. HEENT: Head is atraumatic, normocephalic. Pupils equal, round. Sclerae is anicteric. Edema and swelling to the right ear area improved. No tenderness noted. NECK: Supple. No JVD. No lymphadenopathy. No thyromegaly. LUNGS: Clear to auscultation. No wheezes or rhonchi. No intercostal retractions. HEART: Regular rate and rhythm. No murmur. ABDOMEN: Soft. Bowel sounds are present. No masses. No tenderness. EXTREMITIES: No pedal edema. No calf tenderness. NEUROLOGICAL: Patient is awake, alert and oriented x3. Cranial nerves 2 through 12 are grossly intact. Assessment and Plan: 1. Subacute mastoiditis presenting with headache, earache and dizziness. Patient failed outpatient treatment. Consult with ENT and infectious disease appreciated. Continue ciprofloxacin dexamethasone eardrops, dexamethasone 10 mg IV every 8 hours with tapering dose per Dr. Roberto. S/p myringotomy with insertion of ventilation tube. Continue cefepime per Dr. Spring. Midline in place with IV antibiotics at discharge.Currently waiting for cultures from procedure done yesterday. 2. History of coronary artery disease status post stenting of the mid RCA with bare metal stent. Continue aspirin 81 mg daily, atorvastatin 40 mg at bedtime, Imdur 30 mg daily, Lopressor 50 mg daily. 3. COPD without exacerbation. Continue Ventolin nebulizer treatment as needed, Proventil on a twice daily, Pulmicort twice daily, Singulair 10 mg daily. 4. Marijuana use and tobacco use and dependence. Patient is now down to 2-3 cigarettes per day. He finds nicotine patch. 5. Hypertension. Continue Lopressor 6. Hyperlipidemia. Continue atorvastatin. 7. DVT prophylaxis. SADIE hose 8. GI prophylaxis. Pepcid. Discharge plan: Home possibly on . Impression and plan of care have been directed as dictated by the signing physician. Daysi Nunn nurse practitioner acting as scribe for signing physician. Objective - Vital Signs Vital signs: Vital Signs Temp 98.4 F 05/01/20 07:16 Pulse 78 05/01/20 07:16 Resp 16 05/01/20 07:16 BP 124/78 05/01/20 07:16 Pulse Ox 97 05/01/20 07:16 Intake & Output 04/30/20 05/01/20 05/01/20 18:59 06:59 18:59 Intake Total 700 Output Total 800 Balance 700 -800 Intake: Intake, IV Titration 100 Amount Cefepime 2 gm In Sodium 100 Chloride 0.9% 100 ml @ 25 mls/hr IVPB Q12HR PRASHANT Rx #:[id number] Oral 600 Output: Urine 800 Other: Voiding Method Toilet Toilet Urinal Urinal # Voids 4 1 # Bowel Movements 1 - Labs CBC & Chem 7: 04/24/20 23:24 04/28/20 05:16 Labs: Microbiology - Last 24 Hours (Table) 04/25/20 18:42 Blood Culture - Preliminary Blood No Growth after 120 hours 04/29/20 14:30 Gram Stain - Preliminary Ear - Right Wound Culture - Preliminary
[2020-05-01] MEDS: CIPROFLOXACIN-DEXAMETH 0.3-0.1% DROPS 7.5 ML BTL RIGHT EAR SCH ×2 (16:07→20:30)
[2020-05-01] MEDS: IBUPROFEN 400 MG TAB PO PRN (19:15)
[2020-05-01 19:56] VITALS: RESP 16
[2020-05-01] MEDS: MONTELUKAST 10 MG TAB PO SCH (20:29)
[2020-05-01] MEDS: MELATONIN 3 MG TABLET PO SCH (20:29)
[2020-05-01] MEDS: ATORVASTATIN 40 MG TAB PO SCH (20:30)
--- NOTE | 2020-05-01 22:43 | PN ---
PROGRESS NOTE DATE OF SERVICE: 05/01/2020 REASON FOR FOLLOWUP: Right mastoiditis. INTERVAL HISTORY: The patient is currently afebrile. The patient is breathing comfortably. Overall pain and discomfort to the right ear and posterior area has improved. No drainage. No chest pain, shortness of breath or cough. No abdominal pain or diarrhea. PHYSICAL EXAMINATION: Blood pressure 113/72 with a pulse of 73, temperature 98.6. He is 96% on room air. General description is a middle-aged male lying in bed in no distress. RESPIRATORY SYSTEM: Unlabored breathing. Clear to auscultation anteriorly. HEART: S1, S2. Regular rate and rhythm. ABDOMEN: Soft. No tenderness. LABS: Culture so far negative. DIAGNOSTIC IMPRESSION AND PLAN: Patient with right-sided mastoiditis and otitis media, status post tympanoplasty with the culture negative for any resistant pathogen. Antibiotic will be simplified to Rocephin 2 grams daily; and the patient to continue in the outpatient setting for 2-3 weeks, depending upon clinical response and close outpatient followup. MMODL / IJN: [id number] /
[2020-05-02 07:08] VITALS: BP 102/69; TEMP 98.4
[2020-05-02] MEDS: BUDESONIDE 0.5 MG/2 ML NEBU INHALATION SCH (07:44)
[2020-05-02] MEDS: FORMOTEROL FUMARATE 20 MCG/2 ML NEBU INHALATION SCH (07:44)
[2020-05-02] MEDS: IPRATROPIUM 0.5 MG/2.5 ML NEBU INHALATION SCH (07:44)
[2020-05-02 08:03] VITALS: PULSE 66
[2020-05-02 08:31] LABS: HCT 39.5 % (39.6-50.0); HGB 13.6 g/dL (13.0-17.0); MCH 30.2 pg (27.0-32.0); MCHC 34.4 g/dL (32.0-37.0); MCV 87.6 fL (80.0-97.0); Mean Platelet Volume 10.8 fL (9.5-12.2); Platelet Count 217 X 10*3/uL (140-440); RBC 4.51 X 10*6/uL (4.40-5.60)
[2020-05-02] MEDS: SENNOSIDES-DOCUSATE SODIUM 1 EACH TAB PO SCH (09:20)
[2020-05-02] MEDS: CLOPIDOGREL 75 MG TAB PO SCH (09:20)
[2020-05-02] MEDS: METOPROLOL TARTRATE 50 MG TAB PO SCH (09:20)
[2020-05-02] MEDS: HEPARIN SODIUM,PORCINE 5,000 UNIT/ML 1 ML VIAL SQ SCH (09:21)
[2020-05-02] MEDS: MECLIZINE 25 MG TAB PO SCH (09:21)
[2020-05-02] MEDS: FAMOTIDINE 20 MG TAB PO SCH (09:21)
[2020-05-02] MEDS: ASPIRIN 81 MG PO SCH (09:21)
[2020-05-02] MEDS: ISOSORBIDE MONONITRATE ER 30 MG TAB.ER.24H PO SCH (09:21)
--- NOTE | 2020-05-02 09:36 | P.DS ---
Providers Date of admission: 04/25/20 10:55 Expected date of discharge: 05/02/20 Attending physician: Jamaal Flores Consults: 04/25/20 00:38 Consult Physician Routine Consulting Provider: Tyshawn Roberto Consult Reason/Comments: Mastoiditis; Intractable pain/dizziness Do you want consulting provider notified?: Yes 04/25/20 08:17 Consult Physician Routine Consulting Provider: Eriberto Spring Consult Reason/Comments: mastoiditis Do you want consulting provider notified?: Yes Primary care physician: [facility] Course: History of Present Illness This is a 59-year-old male patient of Dr. Arias, Dr. De Luna and Dr. Hudson with past medical history of COPD, coronary artery disease status post stenting of the mid RCA with bare metal stent, hyperlipidemia, nicotine dependence, history of IV drug abuse, history of marijuana abuse, history of alcohol abuse. Patient gives history that he has had right ear pain for at least a month area and he has seen Dr. Roberto on 2 occasions and was using eardrops. He then presented to the [facility] on April 20 due to right ear pain. CAT scan was done at [facility] and was reported as mastoiditis and patient was transferred to [facility] emergency center. Dr. Kern was information systems administrator who recommended patient be on oral antibiotics and amoxicillin was prescribed and patient was discharged home and instructed to follow-up with Dr. Arias and Dr. Roberto in one to 2 days. He then presented to [facility] emergency center again on April 22 with complaints of right ear pain that was worsening despite using antibiotics. He was also having drainage from his ear which is stopped by the time he was in the emergency center. Patient had Covid 19 testing on March 10 prior to hernia surgery done at [facility] Patient came into [facility] emergency center for evaluation. Afebrile, HR 103, BP 142/105, PO 97% on RA. CBC unremarkable. CMP unremarkable except for glucose of 112. COVID 19 not detected. Patient admitted to [facility] floor and consult in place with ENT and infectious disease. 04/26: Patient has been seen by Dr. Spring with recommendations for cefepime. Vancomycin is discontinued today. Midline has been ordered with plan for cefepime at discharge. Patient will be here over the weekend. Patient states that he is a little bit better. He does complain of headache. No drainage. He has a plugged sensation in the ear. He denies any abdominal pain, nausea or vomiting. Patient has been seen by Dr. Roberto and he switched eardrops to Ciprodex and inserted justine last sponge into his right external auditory canal. He started IV dexamethasone and has cleared him for discharge. Plan is to follow-up in the office for recheck and arrange for possible insertion of ventilation tube or possibly mastoidectomy or tympanoplasty/mastoidectomy in the right ear. 04/27: Patient is in for follow-up today, midline line is in place right arm, infusing without any difficulties, patient still has balance issue, headache, still not sleeping, patient does not have as much pain on chewing, however there is tenderness in the mastoid area and anterior temporomandibular joint, patient denies nausea vomiting fever or chills, has no shortness of breath. Plan for discharge on Wednesday, with final antibiotic recommendations from infectious disease, to finish cefepime through his right midline line. T-max 98.5, vitals are stable, O2 sats at room air 04/28: Patient complaining still of headache right-sided, patient has tenderness on the temporal region still mastoid area, and occipital area right side. Midline incision infusion well, patient's expected to complete IV cefepime to complete a two-week course, per Dr. spring likely to be discharged in a.m. Started on lidocaine cream 4% to be applied to the right side of the base of the head and posterior mastoid area, and constipation issues, Senokot as started. T-max 98.6, vitals are stable O2 at room air 97% no chest pain no diarrhea no shortness of breath no pleurisy no dizziness no falls 04/29: Patient is scheduled today for myringotomy with insertion of ventilation tube with Dr. Roberto. Dr. Melendez is requesting the aerobic and anaerobic cultures be obtained during procedure. Patient states that he continues to have significant pain to the right ear. Patient has been continued on IV antibiotics in the form of cefepime. Midline was inserted on April 26. Patient has been afebrile, heart rate 60s, blood pressure 118/77, pulse ox 96% on room air. Creatinine 1. Covid 19 not detected. 2/2: Yesterday, patient underwent myringotomy with insertion of ventilation tube with Dr. Roberto.patient states that his pain to the right ear is significantly improved today. He complains of a headache that is a number 23. He has been afebrile, heart rate 85, blood pressure 128/84, pulse ox 97% on room air. Cultures were obtained during procedure yesterday. Dr. Spring is requesting the patient wait for discharge until cultures are reported. He is currently covered with cefepime. 05/01: She denies any new complaints. Pain is significantly improved to the right ear mastoid area. Patient states that he is eating well. Wound cultures still in progress. We'll transition IV Dilaudid and Itmann. Patient's been afebrile, heart rate 78, blood pressure 124/78, pulse ox 97% on room air. Anticipate possible discharge by tomorrow. 05/02: Aerobic culture has been finalized with no growth. Anaerobic culture has no anaerobes growth. Fungal culture is in progress. Patient continues to have improvement of his pain. No drainage from his right ear. Dr. Spring is recommended Rocephin 2 g IV piggyback for 3 weeks which has been arranged through [facility]. Patient has been afebrile, heart rate 78, blood pressure 102/69, pulse ox 91-94% on room air. Patient will be discharged home today in stable condition. Assessment and Plan: 1. Subacute mastoiditis presenting with headache, earache and dizziness. 2. History of coronary artery disease status post stenting of the mid RCA with bare metal stent. 3. COPD without exacerbation. 4. Marijuana use and tobacco use and dependence. 5. Hypertension. 6. Hyperlipidemia. Discharge plan: Home Impression and plan of care have been directed as dictated by the signing physician. Daysi Nunn nurse practitioner acting as scribe for signing physician. Patient Condition at Discharge: Good Plan - Discharge Summary Discharge Rx Participant: Yes New Discharge Prescriptions: New Ciprofloxacin-Dexameth [Ciprodex Otic Susp] 4 drops RIGHT EAR TID #1 tube cefTRIAXone [Rocephin] 2 gm IVPB Q24HR #21 vial Continue Albuterol Sulfate [Ventolin HFA] 2 puff INHALATION RT-Q6H PRN PRN Reason: Shortness Of Breath Budesonide [Pulmicort] 0.5 mg INHALATION RT-BID Arformoterol Tartrate [Brovana] 15 mcg INHALATION RT-BID Albuterol Nebulized [Ventolin Nebulized] 2.5 mg INHALATION RT-Q4H PRN PRN Reason: Shortness Of Breath Ipratropium Nebulized [Atrovent Nebulized 0.2 MG/ML] 0.5 mg INHALATION RT-BID Clopidogrel Bisulfate [Plavix] 75 mg PO DAILY #90 tab Aspirin EC [Ecotrin Low Dose] 81 mg PO DAILY Atorvastatin [Lipitor] 40 mg PO HS Montelukast [Singulair] 10 mg PO HS #30 tab Isosorbide Mononitrate ER [Imdur] 30 mg PO DAILY #30 tab.er.24h Ketoconazole 2% Cream [Nizoral 2%] 1 applic TOPICAL BID Hydrocortisone Cream [Hydrocortisone 2.5% Cream] 1 applic TOPICAL DAILY PRN PRN Reason: Itching fluocinolone acetonide oiL [Fluocinolone Acetonide Oil (Otic)] 5 drops RIGHT EAR BID PRN PRN Reason: Itching Ciclopirox Olamine [Loprox 0.77% cream] 1 applic TOPICAL BID Griseofulvin, Microsize [Griseofulvin] 500 mg PO BID Acetaminophen [Tylenol Arthritis] 650 mg PO Q4H PRN PRN Reason: Headache Nitroglycerin Sl Tabs [Nitrostat] 0.4 mg SUBLINGUAL Q5M PRN PRN Reason: Chest Pain Metoprolol Tartrate [Lopressor] 50 mg PO DAILY Discontinued Amoxicillin/Potassium Clav [Augmentin 875-125 Tablet] 1 tab PO Q12HR 1 Days #20 tab Ofloxacin 0.3% Ophth Soln [Ocuflox Ophth Soln] 10 drops RIGHT EAR BID Discharge Medication List Albuterol Sulfate [Ventolin HFA] 2 puff INHALATION RT-Q6H PRN 09/07/14 [History] Albuterol Nebulized [Ventolin Nebulized] 2.5 mg INHALATION RT-Q4H PRN 03/03/16 [History] Arformoterol Tartrate [Brovana] 15 mcg INHALATION RT-BID 03/03/16 [History] Budesonide [Pulmicort] 0.5 mg INHALATION RT-BID 03/03/16 [History] Ipratropium Nebulized [Atrovent Nebulized 0.2 MG/ML] 0.5 mg INHALATION RT-BID 03/23/17 [History] Clopidogrel Bisulfate [Plavix] 75 mg PO DAILY #90 tab 12/30/18 [Rx] Aspirin EC [Ecotrin Low Dose] 81 mg PO DAILY 04/01/19 [History] Atorvastatin [Lipitor] 40 mg PO HS 04/07/19 [History] Montelukast [Singulair] 10 mg PO HS #30 tab 04/15/19 [Rx] Isosorbide Mononitrate ER [Imdur] 30 mg PO DAILY #30 tab.er.24h 05/01/19 [Rx] Acetaminophen [Tylenol Arthritis] 650 mg PO Q4H PRN 04/22/20 [History] Ciclopirox Olamine [Loprox 0.77% cream] 1 applic TOPICAL BID 04/22/20 [History] Griseofulvin, Microsize [Griseofulvin] 500 mg PO BID 04/22/20 [History] Hydrocortisone Cream [Hydrocortisone 2.5% Cream] 1 applic TOPICAL DAILY PRN 04/22/20 [History] Ketoconazole 2% Cream [Nizoral 2%] 1 applic TOPICAL BID 04/22/20 [History] Metoprolol Tartrate [Lopressor] 50 mg PO DAILY 04/22/20 [History] Nitroglycerin Sl Tabs [Nitrostat] 0.4 mg SUBLINGUAL Q5M PRN 04/22/20 [History] fluocinolone acetonide oiL [Fluocinolone Acetonide Oil (Otic)] 5 drops RIGHT EAR BID PRN 04/22/20 [History] Ciprofloxacin-Dexameth [Ciprodex Otic Susp] 4 drops RIGHT EAR TID #1 tube 04/30/20 [Rx] cefTRIAXone [Rocephin] 2 gm IVPB Q24HR #21 vial 05/02/20 [Rx] Follow up Appointment(s)/Referral(s): Shilpi [facility], [NON-STAFF] - [facility],Infusion [NON-STAFF] - Tyshawn Roberto MD [STAFF PHYSICIAN] - 1 Week (Please call office to schedule appointment.) Bear Arias MD [Primary Care Provider] - 05/07/20 1:00 pm Eriberto Spring MD [STAFF PHYSICIAN] - 2 Weeks (Office will call you with your appointment date and time.) Discharge Disposition: HOME WITH HOME HEALTH SERVICES
[2020-05-02 10:15] LABS: African American GFR (CKD) 85.3 (60.0-200.0); Albumin/Globulin Ratio 2.67 (1.60-3.17); Anion Gap 6.1 mmol/L (4.00-12.00); BUN/Creat Ratio 32.73 Ratio (12.00-20.00); Calcium 9.1 mg/dL (8.7-10.3); Carbon Dioxide 25.9 mmol/L (21.6-31.8); Globulin 1.5 g/dL (1.6-3.3); Non-African American GFR(CKD) 73.6 (60.0-200.0); Potassium 4.5 mmol/L (3.5-5.5); Total Bilirubin 0.5 mg/dL (0.2-1.2); Total Protein 5.5 g/dL (6.2-8.2)
[2020-05-02] MEDS: CLOTRIMAZOLE 1% CREAM 15 GM TUBE TOPICAL SCH (10:15)
[2020-05-02] MEDS: CIPROFLOXACIN-DEXAMETH 0.3-0.1% DROPS 7.5 ML BTL RIGHT EAR SCH (10:15)
[2020-05-02] MEDS: LIDOCAINE 4% CREAM 5 GM TUBE TOPICAL SCH (10:16)
--- NOTE | 2020-05-02 13:11 | P.PN ---
Subjective Progress Note Date: 05/02/20 HISTORY OF PRESENT ILLNESS This is a 59-year-old male presenting to the hospital with right-sided mastoiditis status post myringotomy with insertion of ventilation tube. He has been treated with cefepime and vancomycin and sensation to Rocephin. Patient had midline placed. Patient has been afebrile, heart rate 78, blood pressure 102/69, pulse ox 91-94% on room air. Patient is being prepared for discharge home today. PHYSICAL EXAMINATION Gen: This is a 59-year-old male. He is resting bed and appears to be comfortable. HEENT: Head is atraumatic, normocephalic. Pupils equal, round. Sclerae is anicteric. No tenderness, no drainage from the right ear. NECK: Supple. No JVD. No lymphadenopathy. LUNGS: Clear to auscultation. No wheezes or rhonchi. No intercostal retractio ns. HEART: Regular rate and rhythm. ABDOMEN: Soft. Bowel sounds are present. No masses. No tenderness. EXTREMITIES: No pedal edema. No calf tenderness. NEUROLOGICAL: Patient is awake, alert and oriented x3. ASSESSMENT Right-sided otitis media and mastoiditis PLAN Continue Rocephin 2 g IV piggyback daily for 3 weeks Midline has been placed Arrangements through [facility]. The above dictated assessment and findings were discussed with Dr. Bender. The impression and plan of care have been directed as dictated. Daysi Nunn nurse practitioner acting as scribe for Dr. Bender. Objective - Vital Signs Vital signs: Vital Signs Temp 98.4 F 05/02/20 07:04 Pulse 66 05/02/20 08:02 Resp 16 05/02/20 08:23 BP 102/69 05/02/20 07:04 Pulse Ox 91 L 05/02/20 07:04 Intake & Output 05/01/20 05/02/20 05/02/20 18:59 06:59 18:59 Other: Voiding Method Toilet Toilet Urinal Urinal # Voids 3 3 - Labs CBC & Chem 7: 05/02/20 05:48 05/02/20 05:48 Labs: Abnormal Lab Results - Last 24 Hours (Table) 05/02/20 Range/Units 05:48 Hct 39.5 L (39.6-50.0) % Microbiology - Last 24 Hours (Table) 04/29/20 14:30 Anaerobic Culture - Preliminary Ear - Right 04/25/20 18:42 Blood Culture - Final Blood No Growth after 144 hours 04/29/20 14:30 Gram Stain - Final Ear - Right Wound Culture - Final
== END 2020-05-02 10:52 | disposition home health service (06) | DRG 145 ==
LOC: EC 22:38 → 4SSUR 04-25 00:19 → OBSVTOIN 04-25 10:55
PROVIDERS: ADMIT Internal Medicine Geriatric Medicine; ATTEND Internal Medicine Geriatric Medicine
PROC: 099500Z Drainage of Right Middle Ear with Drainage Device, Open Approach (ICD-10-PCS; principal; 2020-04-29 08:30)
DX: H70.001 Acute mastoiditis without complications, right ear (principal); I10 Essential (primary) hypertension; H60.91 Unspecified otitis externa, right ear; H65.01 Acute serous otitis media, right ear; H57.9 Unspecified disorder of eye and adnexa; F10.21 Alcohol dependence, in remission; E78.5 Hyperlipidemia, unspecified; F12.90 Cannabis use, unspecified, uncomplicated; F17.210 Nicotine dependence, cigarettes, uncomplicated; G47.00 Insomnia, unspecified; J44.9 Chronic obstructive pulmonary disease, unspecified; K59.00 Constipation, unspecified; M13.0 Polyarthritis, unspecified; M54.81 Occipital neuralgia; Z20.822 Contact with and (suspected) exposure to COVID-19; I25.10 Atherosclerotic heart disease of native coronary artery without angina pectoris; I25.2 Old myocardial infarction; Z79.02 Long term (current) use of antithrombotics/antiplatelets; Z95.5 Presence of coronary angioplasty implant and graft; Z82.49 Family history of ischemic heart disease and other diseases of the circulatory system; Z83.3 Family history of diabetes mellitus; Z80.8 Family history of malignant neoplasm of other organs or systems; Z80.1 Family history of malignant neoplasm of trachea, bronchus and lung; Z79.899 Other long term (current) drug therapy; Z79.82 Long term (current) use of aspirin
CPT/HCPCS: 36410; 36415; 76937; 80053; 82565; 83605; 85025; 85027; 85652; 86140; 87040; 87070; 87075; 87102; 87205; 87635; 94640; 96361; 96365; 96375; 99285

== ENCOUNTER → 2020-05-17 | Outpatient (CLI) | payer MEDICARE, OTHER ==
[2020-05-17 11:28] LABS: African American GFR (CKD) >90 (>60 ml/min/1.73 sqM); Blood Urea Nitrogen 14 mg/dL (9-20); Non-African American GFR(CKD) 89 (>60 ml/min/1.73 sqM)
--- NOTE | 2020-05-17 13:29 | CT ---
EXAMINATION TYPE: CT iac wo/w con DATE OF EXAM: 05/17/2020 COMPARISON: 09/24/2018 HISTORY: Cholesteatoma, mastoiditis CT DLP: 300 mGycm Automated exposure control for dose reduction was used. CONTRAST: CT scan of the IACs is performed without and with IV Contrast, patient injected with 100 mL of Isovue 300. FINDINGS: The external auditory canals are patent bilaterally. Mastoid air cells show moderate right -sided opacification without evidence for bone destruction. Left-sided mastoid air cells are well-aer ated. There is soft tissue surrounding the right ossicular chain compatible with cholesteatoma. Left- sided ossicular chain is free of surrounding soft tissue. There is also soft tissue in the right midd le ear compatible with chronic otitis media. The scutum is preserved bilaterally. The cochlea and th e semicircular canals are symmetric and unremarkable. Vestibular aqueduct and internal carotid canal appear unremarkable. Temporomandibular joints are maintained bilaterally. IMPRESSION: 1. Findings compatible with right-sided cholesteatoma with chronic right-sided otitis media and right -sided mastoiditis.
== END | disposition home or self-care (01) ==
LOC: RADCTMAIN 10:34
PROVIDERS: ATTEND Otolaryngology
DX: H93.19 Tinnitus, unspecified ear (principal); H71.90 Unspecified cholesteatoma, unspecified ear; H70.90 Unspecified mastoiditis, unspecified ear
CPT/HCPCS: 82565; 84520; 70482; 36415; Q9967

== ENCOUNTER 2020-06-12 14:18 | Emergency (ER) | payer MEDICARE, OTHER ==
[2020-06-12 14:32] VITALS: TEMP 98
[2020-06-12] MEDS ORDERED: HYDROmorphone 1 MG/ML 1 ML SYRINGE IM STA (15:47)
[2020-06-12] MEDS ORDERED: ONDANSETRON ODT 4 MG TAB PO STA (15:47)
[2020-06-12 16:47] LABS: Basophils # (A) 0.1 k/uL (0-0.2); Basophils % (A) 1 %; Eosinophils # (A) 0.3 k/uL (0-0.7); Eosinophils % (A) 3 %; HCT 46.5 % (39.0-53.0); HGB 15.8 gm/dL (13.0-17.5); Lymphocytes # (A) 3.8 k/uL (1.0-4.8); Lymphocytes % (A) 36 %; MCH 29.3 pg (25.0-35.0); MCHC 33.9 g/dL (31.0-37.0); MCV 86.3 fL (80.0-100.0); Mean Platelet Volume 7.7; Monocytes # (A) 0.5 k/uL (0-1.0); Monocytes % (A) 5 %; Neutrophils # (A) 5.7 k/uL (1.3-7.7); Neutrophils % (A) 54 %; Platelet Count 246 k/uL (150-450); RBC 5.38 m/uL (4.30-5.90); RDW 13.3 % (11.5-15.5); WBC 10.5 k/uL (3.8-10.6)
[2020-06-12 16:57] LABS: ALT 28 U/L (4-49); AST 26 U/L (17-59); African American GFR (CKD) >90 (>60 ml/min/1.73 sqM); Albumin 4.5 g/dL (3.5-5.0); Alkaline Phosphatase 122 U/L (38-126); Anion Gap 10 mmol/L; Blood Urea Nitrogen 17 mg/dL (9-20); Calcium 9.4 mg/dL (8.4-10.2); Carbon Dioxide 22 mmol/L (22-30); Chloride 102 mmol/L (98-107); Glucose 106 mg/dL (74-99); Non-African American GFR(CKD) 89 (>60 ml/min/1.73 sqM); Potassium 4.3 mmol/L (3.5-5.1); Sodium 134 mmol/L (137-145); Total Bilirubin 0.6 mg/dL (0.2-1.3); Total Protein 7.5 g/dL (6.3-8.2)
--- NOTE | 2020-06-12 17:52 | ED ---
Dizziness HPI - General Chief Complaint: Dizziness Stated Complaint: Ear pain, Headache,Dizziness Source: patient Mode of arrival: ambulatory Limitations: no limitations - History of Present Illness Initial Comments: Patient is a 59-year-old male presents emergency room with reported headaches, right ear pain and dizziness. Patient has been seen multiple times in the emergency room for similar complaint. Patient was diagnosed with mastoiditis and had a right myringotomy with insertion of ventilation tube. Patient normally cared for by Dr. Roberto. He was discharged home on Rocephin and states he completed antibiotic treatment. Reports improvement in his symptoms when the tube was placed however states that over the past couple of days the patient has had worsening headaches and ear pain. He is currently following with Dr. Arrieta out of [place]. Most recent scan on 05/17 demonstrated a cholesteatoma. Patient is scheduled to have an MRI on the with follow up in Dr. Arrieta's office on July 01. He is scheduled for surgery on August 02 for a right middle cranial fossa surgeries/transmast for possible CSF leak/encephalocele. Patient reports he attempted to call Dr. Arrieta's office however they told him to go into the emergency department. He denies any fevers or chills. No visual changes. Denies any neck stiffness. No nausea or vomiting. Has been taking Motrin at home for his pain however is out of his narcotics. No other alleviating, precipitating or modifying factors - Related Data Home Medications Medication Instructions Recorded Confirmed Albuterol Sulfate [Ventolin HFA] 2 puff INHALATION RT-Q6H PRN 09/07/14 04/25/20 Albuterol Nebulized [Ventolin 2.5 mg INHALATION RT-Q4H PRN 03/03/16 04/25/20 Nebulized] Arformoterol Tartrate [Brovana] 15 mcg INHALATION RT-BID 03/03/16 04/25/20 Budesonide [Pulmicort] 0.5 mg INHALATION RT-BID 03/03/16 04/25/20 Ipratropium Nebulized [Atrovent 0.5 mg INHALATION RT-BID 03/23/17 04/25/20 Nebulized 0.2 MG/ML] Aspirin EC [Ecotrin Low Dose] 81 mg PO DAILY 04/01/19 04/25/20 Atorvastatin [Lipitor] 40 mg PO HS 04/07/19 04/25/20 Acetaminophen [Tylenol Arthritis] 650 mg PO Q4H PRN 04/22/20 04/25/20 Ciclopirox Olamine [Loprox 0.77% 1 applic TOPICAL BID 04/22/20 04/25/20 cream] Griseofulvin, Microsize 500 mg PO BID 04/22/20 04/25/20 [Griseofulvin] Hydrocortisone Cream 1 applic TOPICAL DAILY PRN 04/22/20 04/25/20 [Hydrocortisone 2.5% Cream] Ketoconazole 2% Cream [Nizoral 2%] 1 applic TOPICAL BID 04/22/20 04/25/20 Metoprolol Tartrate [Lopressor] 50 mg PO DAILY 04/22/20 04/25/20 Nitroglycerin Sl Tabs [Nitrostat] 0.4 mg SUBLINGUAL Q5M PRN 04/22/20 04/25/20 fluocinolone acetonide oiL 5 drops RIGHT EAR BID PRN 04/22/20 04/25/20 [Fluocinolone Acetonide Oil (Otic)] Previous Rx's Medication Instructions Recorded Clopidogrel Bisulfate [Plavix] 75 mg PO DAILY #90 tab 12/30/18 Montelukast [Singulair] 10 mg PO HS #30 tab 04/15/19 Isosorbide Mononitrate ER [Imdur] 30 mg PO DAILY #30 tab.er.24h 05/01/19 Ciprofloxacin-Dexameth [Ciprodex 4 drops RIGHT EAR TID #1 tube 04/30/20 Otic Susp] cefTRIAXone [Rocephin] 2 gm IVPB Q24HR #21 vial 05/02/20 HYDROcodone/APAP 10-325MG [[place] 1 tab PO Q4HR PRN 3 Days #18 tab 06/12/20 10-325] Allergies Allergy/AdvReac Type Severity Reaction Status Date / Time levofloxacin [From Levaquin] AdvReac Nausea & Verified 04/25/20 08:06 Vomiting Review of Systems ROS Statement: Those systems with pertinent positive or pertinent negative responses have been documented in the HPI. ROS Other: All systems not noted in ROS Statement are negative. Past Medical History Past Medical History: Coronary Artery Disease (CAD), COPD, Myocardial Infarction (CO) Additional Past Medical History / Comment(s): Pt states he has hx of 3 respiratory arrests and was vented, generalized arthritis, Last Myocardial Infarction Date:: History of Any Multi-Drug Resistant Organisms: None Reported Past Surgical History: Adenoidectomy, Heart Catheterization With Stent, Hernia Repair, Joint Replacement, Orthopedic Surgery, Tonsillectomy Additional Past Surgical History / Comment(s): R inguinal hernia repair, L rotator cuff repair, bialteral total knee arthroplasties, R shoulder spur removal, teeth extracted, colonoscopy-normal. third hernia repair, left side Past Anesthesia/Blood Transfusion Reactions: No Reported Reaction Date of Last Stent Placement:: 2018 Past Psychological History: No Psychological Hx Reported Smoking Status: Current some day smoker Past Alcohol Use History: Rare Past Drug Use History: Marijuana - Past Family History Father Family Medical History: Cancer Additional Family Medical History / Comment(s): Father of lung cancer at the age of 62. He was a smoker. Mother Family Medical History: Diabetes Mellitus, Hypertension Additional Family Medical History / Comment(s): Mother at age 78 from brainstem cancer. Brother(s) Additional Family Medical History / Comment(s): Patient's 1 brother with history of AAA. Patient has 4 sisters and he does not know any of their medical history. Patient's 1 son and 1 daughter living. He had one daughter that at 7 weeks old from a congenital heart. General Exam Limitations: no limitations Course Vital Signs 06/12/20 06/12/20 06/12/20 14:24 16:00 16:30 Temperature 98.0 F Pulse Rate 100 80 71 Respiratory 18 12 16 Rate Blood Pressure 159/103 151/103 146/105 O2 Sat by Pulse 97 95 94 L Oximetry 06/12/20 06/12/20 06/12/20 17:00 17:30 18:00 Temperature Pulse Rate 69 84 67 Respiratory 16 18 15 Rate Blood Pressure 147/103 121/78 132/97 O2 Sat by Pulse 93 L 94 L 98 Oximetry EKG Findings - EKG Comments: EKG Findings:: EKG demonstrates a sinus rhythm with a ventricular rate of 80. SC interval 160. QRS 80. QTC 415. No acute ST segment elevations or depressions concerning for ischemic changes Medical Decision Making - Medical Decision Making Upon arrival the patient is placed into room 10. A thorough history and physical exam is performed. patient given Dilaudid 1 mg IM. I did call and speak with Dr. Arrieta's office. On-call ENT fellow is familiar with the patient. Recommend laboratory studies to evaluate white blood cell count and evaluation for menigitis. Patient has no meningitic signs on clinical exam. Laboratory is conducted and reviewed. Results discussed patient. At this time the patient will be discharged home with a prescription for [place]. Instructed on safe use of the medications. He is to take this alternating with Motrin for pain control. No purulent drainage from the patient's right ear at this time and therefore we will hold off on antibiotics. Patient is to call the office tomorrow to make an appointment with the surgeon. Retain his appointment for his upcoming MRI. Return to the emergency room for any new or worsening symptoms per patient was discharged home in stable condition - Lab Data Result diagrams: 06/12/20 16:35 06/12/20 16:35 Lab Results 06/12/20 06/12/20 Range/Units 16:35 16:35 WBC 10.5 (3.8-10.6) k/uL RBC 5.38 (4.30-5.90) m/uL Hgb 15.8 (13.0-17.5) gm/dL Hct 46.5 (39.0-53.0) % MCV 86.3 (80.0-100.0) fL MCH 29.3 (25.0-35.0) pg MCHC 33.9 (31.0-37.0) g/dL RDW 13.3 (11.5-15.5) % Plt Count 246 (150-450) k/uL MPV 7.7 Neutrophils % 54 % Lymphocytes % 36 % Monocytes % 5 % Eosinophils % 3 % Basophils % 1 % Neutrophils # 5.7 (1.3-7.7) k/uL Lymphocytes # 3.8 (1.0-4.8) k/uL Monocytes # 0.5 (0-1.0) k/uL Eosinophils # 0.3 (0-0.7) k/uL Basophils # 0.1 (0-0.2) k/uL Sodium 134 L (137-145) mmol/L Potassium 4.3 (3.5-5.1) mmol/L Chloride 102 (98-107) mmol/L Carbon Dioxide 22 (22-30) mmol/L Anion Gap 10 mmol/L BUN 17 (9-20) mg/dL Creatinine 0.94 (0.66-1.25) mg/dL Est GFR (CKD-EPI)AfAm >90 (>60 ml/min/1.73 sqM) Est GFR (CKD-EPI)NonAf 89 (>60 ml/min/1.73 sqM) Glucose 106 H (74-99) mg/dL Calcium 9.4 (8.4-10.2) mg/dL Total Bilirubin 0.6 (0.2-1.3) mg/dL AST 26 (17-59) U/L ALT 28 (4-49) U/L Alkaline Phosphatase 122 (38-126) U/L Total Protein 7.5 (6.3-8.2) g/dL Albumin 4.5 (3.5-5.0) g/dL Disposition Clinical Impression: Mastoiditis of right side, Vertigo, Headache Disposition: HOME SELF-CARE Condition: Stable Instructions (If sedation given, give patient instructions): Acute Headache (ED) Additional Instructions: Please follow-up with your surgeon in regards to your symptoms. Return to the emergency room for any new or worsening symptoms Prescriptions: HYDROcodone/APAP 10-325MG [[place] 10-325] 1 tab PO Q4HR PRN 3 Days #18 tab PRN Reason: Pain Is patient prescribed a controlled substance at d/c from ED?: Yes When asked, does pt state using other controlled substances?: No If prescribed controlled substance>3 days was MAPS reviewed?: Prescribed <3 Days If opioid is for acute pain is fill amount 7 days or less?: Yes If Rx opioid, was Start Talking consent form obtained?: Yes Referrals: Bear Arias MD [Primary Care Provider] - 1-2 days Time of Disposition: 17:48
[2020-06-12 18:03] VITALS: BP 132/97; PULSE 67; RESP 15
== END 2020-06-12 18:10 | disposition home or self-care (01) ==
LOC: EC 14:18
DX: H70.91 Unspecified mastoiditis, right ear (principal); R42 Dizziness and giddiness; I25.10 Atherosclerotic heart disease of native coronary artery without angina pectoris; I25.2 Old myocardial infarction; J44.9 Chronic obstructive pulmonary disease, unspecified; F17.200 Nicotine dependence, unspecified, uncomplicated; F12.90 Cannabis use, unspecified, uncomplicated
CPT/HCPCS: 36415; 93005; 80053; 85025; 99284; 96372; J1170

== ENCOUNTER → 2020-06-18 | Outpatient (CLI) | payer MEDICARE, OTHER ==
--- NOTE | 2020-06-18 11:32 | MR ---
EXAMINATION TYPE: MR brain and iac wo/w con DATE OF EXAM: 06/18/2020 COMPARISON: CT scan 05/17/2020 HISTORY: Encephalocele TECHNIQUE: Multiplanar, multisequence images of the brain and brainstem is performed without and with IV contras t, utilizing 10 mL intravenous Gadavist . FINDINGS: Diffusion weighted images demonstrate no evidence of a recent infarct or other diffusion ab normality. The ventricular system and cisternal spaces are normal in size and appearance. The brain volume is age appropriate. Mild periventricular areas of abnormal white matter signal are nonspecifi c. There are couple focal areas of abnormal signal seen within the white matter bilaterally which are also not likely in the basis of remote ischemia. There is extensive abnormal signal within the mastoid air cells extending in the right middle ear whi ch could be compatible with the patient's previous history: No pathologic enhancement regard to the n erve complex is seen. Midline structures demonstrate normal morphology. The craniocervical junction appears within normal limits. Post contrast images demonstrate no abnormal enhancement. The dural venous sinuses appear pa tent. Changes of chronic sinusitis noted. Orbits are symmetric. There is nodular 2 mm prominence of t he right MCA trifurcation. IMPRESSION: 1. Diffuse abnormal signal throughout the mastoid air cells correlate for mastoiditis. Abnormal signa l appears to extend into the middle ear. Findings could be compatible with the patient's previous CT scan suggestive of cholesteatoma or middle ear effusion\infection. Correlate clinically. 2. Minimal nonspecific white matter changes most typical remote ischemia. 3. No evidence of cerebellopontine angle mass or acoustic schwannoma 4. Findings suspicious for 2 mm right MCA aneurysm. Consider follow-up M[facility] [place].
== END | disposition home or self-care (01) ==
LOC: RADMRIMAIN 08:23
PROVIDERS: ATTEND Otolaryngology Otology & Neurotology
DX: R93.89 Abnormal findings on diagnostic imaging of other specified body structures (principal)
CPT/HCPCS: 70553; A9585

== ENCOUNTER 2020-07-22 13:17 | Emergency (ER) | payer MEDICARE, OTHER ==
[2020-07-22 13:26] VITALS: BP 108/70; PULSE 94; RESP 20; TEMP 98.4
[2020-07-22] MEDS ORDERED: AMOXIC-POT CLAV 875-125MG 1 EACH TAB PO STA (13:47)
[2020-07-22] MEDS ORDERED: SULFAMETHOX-TMP 800-160MG 1 EACH TAB PO STA (13:48)
--- NOTE | 2020-07-22 13:56 | ED ---
Skin/Abscess/FB HPI - General Chief complaint: Skin/Abscess/Foreign Body Stated complaint: puncture wound lt hand Time Seen by Provider: 07/22/20 13:30 Source: patient, RN notes reviewed Mode of arrival: ambulatory Limitations: no limitations - History of Present Illness Initial comments: This is a 59-year-old male with a history of right ear infection the past who apparently is pending surgery who states he was cleaning a Fish last evening when he was stuck in the left hand by a spine from the fist. He claims some pain in the beginnings of his he believes some infection as he's had this happen before. No overt fevers chills or sweats to the dorsal aspect of the hand he does have some swelling in slightly increased localized temperature. MD complaint: other - Related Data Home Medications Medication Instructions Recorded Confirmed Albuterol Sulfate [Ventolin HFA] 2 puff INHALATION RT-Q6H PRN 09/07/14 04/25/20 Albuterol Nebulized [Ventolin 2.5 mg INHALATION RT-Q4H PRN 03/03/16 04/25/20 Nebulized] Arformoterol Tartrate [Brovana] 15 mcg INHALATION RT-BID 03/03/16 04/25/20 Budesonide [Pulmicort] 0.5 mg INHALATION RT-BID 03/03/16 04/25/20 Ipratropium Nebulized [Atrovent 0.5 mg INHALATION RT-BID 03/23/17 04/25/20 Nebulized 0.2 MG/ML] Aspirin EC [Ecotrin Low Dose] 81 mg PO DAILY 04/01/19 04/25/20 Atorvastatin [Lipitor] 40 mg PO HS 04/07/19 04/25/20 Acetaminophen [Tylenol Arthritis] 650 mg PO Q4H PRN 04/22/20 04/25/20 Ciclopirox Olamine [Loprox 0.77% 1 applic TOPICAL BID 04/22/20 04/25/20 cream] Griseofulvin, Microsize 500 mg PO BID 04/22/20 04/25/20 [Griseofulvin] Hydrocortisone Cream 1 applic TOPICAL DAILY PRN 04/22/20 04/25/20 [Hydrocortisone 2.5% Cream] Ketoconazole 2% Cream [Nizoral 2%] 1 applic TOPICAL BID 04/22/20 04/25/20 Metoprolol Tartrate [Lopressor] 50 mg PO DAILY 04/22/20 04/25/20 Nitroglycerin Sl Tabs [Nitrostat] 0.4 mg SUBLINGUAL Q5M PRN 04/22/20 04/25/20 fluocinolone acetonide oiL 5 drops RIGHT EAR BID PRN 04/22/20 04/25/20 [Fluocinolone Acetonide Oil (Otic)] Previous Rx's Medication Instructions Recorded Clopidogrel Bisulfate [Plavix] 75 mg PO DAILY #90 tab 12/30/18 Montelukast [Singulair] 10 mg PO HS #30 tab 04/15/19 Isosorbide Mononitrate ER [Imdur] 30 mg PO DAILY #30 tab.er.24h 05/01/19 Ciprofloxacin-Dexameth [Ciprodex 4 drops RIGHT EAR TID #1 tube 04/30/20 Otic Susp] cefTRIAXone [Rocephin] 2 gm IVPB Q24HR #21 vial 05/02/20 HYDROcodone/APAP 10-325MG [[place] 1 tab PO Q4HR PRN 3 Days #18 tab 06/12/20 10-325] Amoxicillin/Potassium Clav 1 tab PO Q12HR 1 Days #20 tab 07/22/20 [Augmentin 875-125 Tablet] Sulfamethox-Tmp 800-160Mg [Bactrim 2 each PO Q12HR #40 tab 07/22/20 DS 800-160 mg] Allergies Allergy/AdvReac Type Severity Reaction Status Date / Time levofloxacin [From Levaquin] AdvReac Nausea & Verified 07/22/20 13:26 Vomiting Review of Systems ROS Statement: Those systems with pertinent positive or pertinent negative responses have been documented in the HPI. ROS Other: All systems not noted in ROS Statement are negative. Past Medical History Past Medical History: Coronary Artery Disease (CAD), COPD, Myocardial Infarction (MD) Additional Past Medical History / Comment(s): Pt states he has hx of 3 respiratory arrests and was vented, generalized arthritis, Last Myocardial Infarction Date:: History of Any Multi-Drug Resistant Organisms: None Reported Past Surgical History: Adenoidectomy, Heart Catheterization With Stent, Hernia Repair, Joint Replacement, Orthopedic Surgery, Tonsillectomy Additional Past Surgical History / Comment(s): R inguinal hernia repair, L rotator cuff repair, bialteral total knee arthroplasties, R shoulder spur removal, teeth extracted, colonoscopy-normal. third hernia repair, left side Past Anesthesia/Blood Transfusion Reactions: No Reported Reaction Date of Last Stent Placement:: 2018 Past Psychological History: No Psychological Hx Reported Smoking Status: Current some day smoker Past Alcohol Use History: Rare Past Drug Use History: Marijuana - Past Family History Father Family Medical History: Cancer Additional Family Medical History / Comment(s): Father of lung cancer at the age of 62. He was a smoker. Mother Family Medical History: Diabetes Mellitus, Hypertension Additional Family Medical History / Comment(s): Mother at age 78 from brainstem cancer. Brother(s) Additional Family Medical History / Comment(s): Patient's 1 brother with history of AAA. Patient has 4 sisters and he does not know any of their medical history. Patient's 1 son and 1 daughter living. He had one daughter that at 7 weeks old from a congenital heart. General Exam - General Exam Comments Initial Comments: This is a well-developed well-nourished awake alert oriented times 3male Limitations: no limitations General appearance: alert, in no apparent distress Head exam: Present: atraumatic, normocephalic, normal inspection Eye exam: Present: normal appearance, PERRL, EOMI. Absent: scleral icterus, conjunctival injection, periorbital swelling Neck exam: Present: normal inspection, full ROM Respiratory exam: Present: normal lung sounds bilaterally. Absent: respiratory distress, wheezes, rales, rhonchi, stridor Cardiovascular Exam: Present: regular rate, normal rhythm, normal heart sounds. Absent: systolic murmur, diastolic murmur, rubs, gallop, clicks Extremities exam: Present: normal capillary refill, other (Examination left hand reveals some minimal erythema at the crease of the palm just proximal to the ring finger this is a set of the puncture site no evidence of any foreign body. Torso last week and demonstrates some evidence of increased swelling with increased localized temperature mild erythema ) Neurological exam: Present: alert, oriented X3, CN II-XII intact Psychiatric exam: Present: normal affect, normal mood Skin exam: Present: warm, dry, other (As noted above) Course Vital Signs 07/22/20 13:21 Temperature 98.4 F Pulse Rate 94 Respiratory 20 Rate Blood Pressure 108/70 O2 Sat by Pulse 95 Oximetry Medical Decision Making - Medical Decision Making The patient does have a problem taking Levaquin he'll be placed on therapy to cover potential pathogens. He is in agreement with this. He'll be discharged with follow-up he does have adequate NSAIDs at home he states. Disposition Clinical Impression: Puncture wound of left hand Disposition: HOME SELF-CARE Condition: Good Instructions (If sedation given, give patient instructions): Puncture Wound (ED) Prescriptions: Amoxicillin/Potassium Clav [Augmentin 875-125 Tablet] 1 tab PO Q12HR 1 Days #20 tab Sulfamethox-Tmp 800-160Mg [Bactrim DS 800-160 mg] 2 each PO Q12HR #40 tab Is patient prescribed a controlled substance at d/c from ED?: No Referrals: Bear Arias MD [Primary Care Provider] - 1-2 days
== END 2020-07-22 14:14 | disposition home or self-care (01) ==
LOC: EC 13:17
DX: S61.432A Puncture wound without foreign body of left hand, initial encounter (principal); I25.10 Atherosclerotic heart disease of native coronary artery without angina pectoris; I25.2 Old myocardial infarction; J44.9 Chronic obstructive pulmonary disease, unspecified; F17.200 Nicotine dependence, unspecified, uncomplicated; F12.90 Cannabis use, unspecified, uncomplicated; Z79.82 Long term (current) use of aspirin; X58.XXXA Exposure to other specified factors, initial encounter
CPT/HCPCS: 99283

== ENCOUNTER → 2020-10-30 | Outpatient (CLI) | payer MEDICARE, OTHER ==
[2020-10-30 17:02] LABS: HCT 41.9 % (39.0-53.0); HGB 14.6 gm/dL (13.0-17.5); MCHC 34.8 g/dL (31.0-37.0); MCV 89.1 fL (80.0-100.0); Mean Platelet Volume 8.1; Platelet Count 235 k/uL (150-450); RDW 13.8 % (11.5-15.5); WBC 11.4 k/uL (3.8-10.6)
[2020-10-30 17:09] LABS: African American GFR (CKD) >90 (>60 ml/min/1.73 sqM); Anion Gap 9 mmol/L; Blood Urea Nitrogen 15 mg/dL (9-20); Carbon Dioxide 24 mmol/L (22-30); Chloride 102 mmol/L (98-107); Non-African American GFR(CKD) >90 (>60 ml/min/1.73 sqM); Sodium 135 mmol/L (137-145)
== END | disposition home or self-care (01) ==
LOC: LABPAT 15:04
PROVIDERS: ATTEND Internal Medicine Interventional Cardiology
DX: Z01.812 Encounter for preprocedural laboratory examination (principal); R07.9 Chest pain, unspecified
CPT/HCPCS: 80051; 82565; 84520; 85027

== ENCOUNTER 2020-10-31 11:49 | Inpatient (IN) | payer MEDICARE, OTHER ==
[2020-10-31] MEDS ORDERED: ALPRAZolam 0.5 MG TAB PO PRN (14:46)
[2020-10-31] MEDS ORDERED: ALPRAZolam 0.25 MG TAB PO PRN (14:46)
[2020-10-31] MEDS ORDERED: NITROGLYCERIN SL TABS 0.4 MG TAB SUBLINGUAL PRN (14:46)
[2020-10-31 16:33] LABS: Glucose,Whole Blood 113 mg/dL (75-99)
[2020-10-31] MEDS: NITROGLYCERIN-D5W PMX 50 MG in DEXTROSE/WATER 1 250ML.BAG IV SCH (16:37)
[2020-10-31] MEDS: ATORVASTATIN 40 MG TAB PO SCH (19:42)
[2020-10-31] MEDS: IPRATROPIUM-ALBUTEROL 3 ML NEB INHALATION PRN (19:46)
[2020-10-31] MEDS: BUDESONIDE 0.5 MG/2 ML NEBU INHALATION SCH (19:46)
[2020-10-31] MEDS ORDERED: SODIUM CHLORIDE 0.9% 1,000 ML in EMPTY BAG 1 BAG IV ONE (23:59)
[2020-11-01] MEDS: METOPROLOL SUCCINATE (ER) 50 MG TAB.ER.24H PO SCH (05:36)
[2020-11-01] MEDS: LORATADINE 10 MG TAB PO SCH (05:36)
[2020-11-01] MEDS: ISOSORBIDE MONONITRATE ER 60 MG TAB.ER.24H PO SCH (05:36)
[2020-11-01] MEDS: hydroCHLOROthiazide 12.5 MG CAP PO SCH (05:52)
[2020-11-01] MEDS ORDERED: HEPARIN SODIUM,PORCINE 2,500 UNIT in SODIUM CHLORIDE 0.9% 250 ML IRRIGATION PRN (07:00)
[2020-11-01] MEDS ORDERED: HEPARIN SODIUM,PORCINE 10,000 UNIT in SODIUM CHLORIDE 0.9% 1,000 ML IRRIGATION PRN (07:00)
[2020-11-01] MEDS ORDERED: HEPARIN SODIUM 1,000 UN/ML (10ML VL) ONE (07:07)
[2020-11-01] MEDS ORDERED: LIDOCAINE 1% INJ 10MG/ML (20 ML MDV) ONE (07:07)
[2020-11-01] MEDS ORDERED: VERAPAMIL 2.5 MG/ML 2 ML AMP ONE (07:07)
[2020-11-01] MEDS ORDERED: IV FLUID CONTINUATION 1,000 ML IV ONE (07:43)
[2020-11-01] MEDS ORDERED: MIDAZOLAM 2 MG/2 ML VIAL IV ONE ×2 (07:47)
[2020-11-01] MEDS ORDERED: LIDOCAINE 1% INJ 10MG/ML (20 ML MDV) SQ ONE (07:48)
[2020-11-01] MEDS: VERAPAMIL SYRINGE (5 MG/10 ML) INTRAARTER ONE ×2 (07:50→08:17)
[2020-11-01] MEDS ORDERED: fentaNYL (PF) 50 MCG/ML 2 ML AMP ONE (07:51)
[2020-11-01] MEDS: fentaNYL (PF) 50 MCG/ML 2 ML AMP IV ONE ×2 (07:54→08:10)
[2020-11-01] MEDS ORDERED: CLOPIDOGREL 75 MG TAB ONE (08:05)
[2020-11-01] MEDS ORDERED: NITROGLYCERIN 1000MCG/10ML SYRINGE INTRACORON ONE (08:08)
[2020-11-01] MEDS ORDERED: niCARdipine 25 MG/10 ML VIAL ONE (08:09)
[2020-11-01] MEDS ORDERED: niCARdipine Syringe (1,000 mcg/10 mL) INTRACORON ONE (08:10)
[2020-11-01] MEDS ORDERED: HYDROmorphone 1 MG/ML 1 ML SYRINGE IVP ONE (08:13)
[2020-11-01] MEDS ORDERED: IOPAMIDOL-370 125ML BTL INJ ONE (08:14)
[2020-11-01] MEDS ORDERED: CLOPIDOGREL 75 MG TAB PO ONE (08:19)
[2020-11-01] MEDS ORDERED: RX INFO: IV CONTRAST WAS GIVEN 1 EACH MISC MISCELLANE PRN (08:23)
[2020-11-01] MEDS ORDERED: ATROPINE SULFATE 0.1 MG/ML 10ML SYRINGE IV PRN (08:23)
[2020-11-01] MEDS ORDERED: MAG HYDROX/AL HYDROX/SIMETH 30 ML CUP PO PRN (08:23)
[2020-11-01] MEDS ORDERED: NITROGLYCERIN SL TABS 0.4 MG TAB SUBLINGUAL PRN (08:23)
[2020-11-01] MEDS ORDERED: ZOLPIDEM 5 MG TAB PO PRN (08:23)
[2020-11-01] MEDS: BUDESONIDE 0.5 MG/2 ML NEBU INHALATION SCH ×2 (08:27→20:00)
[2020-11-01] MEDS ORDERED: SODIUM CHLORIDE 0.9% 1,000 ML IV SCH (08:30)
[2020-11-01] MEDS ORDERED: ASPIRIN 325 MG TAB PO SCH (09:00)
[2020-11-01 10:38] VITALS: BMI 30.2
--- NOTE | 2020-11-01 11:28 | PTCA ---
PERCUTANEOUSTRANS CORORONARY ANGIOGRAPHY DATE OF SERVICE: November 01, 2020. PERFORMING PHYSICIAN: Successful stenting of the mid right coronary artery using 4.0 x 23 mm Xience drug- eluting stent which was post-dilated using 4.5 mm NC balloon with an excellent angiographic result and reduction of stenosis from 80% to 0%. INDICATION: This is a very pleasant 60-year-old gentleman with known history of coronary artery disease and prior stenting of the RCA who was admitted to [facility] with chest discomfort and continues to have ongoing chest discomfort. He underwent a heart catheterization at [facility] and that revealed severe disease involving the mid right coronary artery which seems to be in-stent restenosis. Because of that, he was brought today to undergo an intervention. APPROACH: Right radial artery. COMPLICATION: None. LEVEL OF SEDATION: Moderate with sedation length of 25 minutes. PROCEDURE DESCRIPTION: After obtaining informed consent, the patient was brought to the cardiac laborer/key man. After that, we did access the right radial artery using micropuncture technique under ultrasound guidance, the micropuncture wire passed easily, then I placed a 6-[place]ongolian sheath at the right radial artery. I gave the patient 2 mg of verapamil IA and anticoagulation with heparin was initiated with 8000 units at the beginning and additional 2000 units throughout the procedure. After that I did I did engage the right coronary artery using JR4 guiding catheter. The RCA was wired using a run-through wire. After that I did balloon angioplasty using 3.0 AngioSculpt balloon before I deployed 4.0 x 23 mm Xience drug-eluting stent where the stent was positioned under fluoroscopy guidance and deployed under 14 atmospheres for 20 seconds. I post-dilated the stent using 4.5 x 15 mm NC balloon. The following angiogram showed excellent angiographic results with excellent flow in the right coronary artery. Unfortunately, we lost the acute marginal branch which has an ostial lesion to start with about 80% to 90%. CONCLUSION: Successful stenting of the mid right coronary artery using 4.0 X 23 mm Xience drug- eluting stent with an excellent angiographic results. POSTPROCEDURE MANAGEMENT: 1. Dual anti-platelet therapy. 2. Aggressive cholesterol control. 3. Risk factor modifications. 4. We will follow up with the patient. MMODL / IJN: [id number] /
[2020-11-01] MEDS: IPRATROPIUM-ALBUTEROL 3 ML NEB INHALATION PRN ×3 (11:56→20:00)
[2020-11-01 12:38] LABS: African American GFR (CKD) >90 (>60 ml/min/1.73 sqM); Anion Gap 7 mmol/L; Blood Urea Nitrogen 11 mg/dL (9-20); Calcium 8.9 mg/dL (8.4-10.2); Carbon Dioxide 21 mmol/L (22-30); Chloride 107 mmol/L (98-107); Glucose 119 mg/dL (74-99); Non-African American GFR(CKD) >90 (>60 ml/min/1.73 sqM); Potassium 4.3 mmol/L (3.5-5.1); Sodium 135 mmol/L (137-145)
--- NOTE | 2020-11-01 14:02 | P.PN ---
Subjective HISTORY OF PRESENTING ILLNESS This is a pleasant 60-year-old male past medical history significant for coronary artery disease status post prior symptoms in the RCA, , hypertension, dyslipidemia, known intermediate disease involving the LAD, chronic nicotine dependence. He follows in the office with Dr. De Luna. Patient presented to [facility] with chest discomfort and continued to have ongoing chest discomfort. He underwent a heart catheterization at [facility] Dr. De Luna and revealed severe disease involving the mid RCA which seems to be in stent restenosis. Patient was transferred to [facility] for stenting. Patient underwent successful stenting of the mid RCA with Dr. De Luna this morning. Patient seen and examined at bedside, no acute distress. Patient denies any chest pain or shortness of breath. PHYSICAL EXAMINATION Blood pressure 114/68 heart rate 66 afebrile and maintaining oxygen [id number]% on room air. CONSTITUTIONAL: No apparent distress. HEENT: Neck Supple. No JVD. CHEST EXAMINATION: Lungs are clear to auscultation. No chest wall tenderness is noted on palpation or with deep breathing. HEART EXAMINATION: Regular rate and rhythm. S1, S2 heard. No murmurs, gallops or rub. ABDOMEN: Soft, nontender. Positive bowel sounds. EXTREMITIES: 2+ peripheral pulses, no lower extremity edema and no calf tenderness. SKIN: Right radial cath site clean dry inact, 2+ pulses NEUROLOGIC EXAMINATION: Patient is awake, alert and oriented x3. ASSESSMENT NSTEMI Coronary artery disease status post prior symptoms in the RCA Hypertension Dyslipidemia Chronic nicotine dependence. PLAN Dual antiplatelet therapy with aspirin and Plavix. Continue statin, Imdur, hydrochlorothiazide, metoprolol succinate 50 mg daily If patient is hemodynamically stable and no acute events, most likely discharge tomorrow Follow up outpatient with Dr De Luna Nurse Practitioner note has been reviewed, I agree with a documented findings and plan of care. Patient was seen and examined. Objective - Vital Signs Vital signs: Vital Signs Temp 97.6 F 11/01/20 12:08 Pulse 66 11/01/20 12:08 Resp 18 11/01/20 12:08 BP 114/68 11/01/20 12:08 Pulse Ox 95 11/01/20 12:08 Intake & Output 10/31/20 11/01/20 11/01/20 18:59 06:59 18:59 Intake Total 240 200 Balance 240 200 Weight 95.254 kg 95.5 kg 95.5 kg Intake: IV 200 Oral 240 0 Other: Voiding Method Toilet Toilet # Voids 1 1 - Labs CBC & Chem 7: 11/01/20 10:38 Labs: Abnormal Lab Results - Last 24 Hours (Table) 10/31/20 11/01/20 Range/Units 16:31 10:38 Sodium 135 L (137-145) mmol/L Carbon Dioxide 21 L (22-30) mmol/L Glucose 119 H (74-99) mg/dL POC Glucose (mg/dL) 113 H (75-99) mg/dL
--- NOTE | 2020-11-01 14:19 | P.HPIM ---
History of Present Illness H&P Date: 11/01/20 HISTORY OF PRESENT ILLNESS This is a 60-year-old female patient of Siva Erwin NP, with past medical history of non-ST elevated myocardial infarction with heart catheterization and stent placement in 2019, COPD with remote history of tobacco use, hypertension, hyperlipidemia. Patient was initially seen at [facility] and underwent heart catheterization there that revealed severe disease involving the mid right coronary artery which seems to be an in-stent restenosis. Patient was transferred to [facility] and is status post stenting of the mid right coronary artery. Patient apparently had chest pain following the procedure and is on nitroglycerin drip and this has subsequently resolved. REVIEW OF SYSTEMS Constitutional: No fever, no chills, no night sweats. No weight change. No weakness, fatigue or lethargy. No daytime sleepiness. EENT: No headache. No blurred vision or double vision, no loss of vision. No loss of Hearing, no ringing in the ears, no dizziness. No nasal drainage or congestion. No epistaxis. No sore throat. Lungs: No shortness of breath, cough, no sputum production. No wheezing. Cardiovascular: Reports chest pain, no lower extremity edema. No palpitations. No paroxysmal nocturnal dyspnea. No orthopnea. No lightheadedness or dizziness. No syncopal episodes. Abdominal: No abdominal pain. No nausea, vomiting. No diarrhea. No constipation. No bloody or tarry stools.. No loss of appetite. Genitourinary: No dysuria, increased frequency, urgency. No urinary retention. Musculoskeletal: No myalgias. No muscle weakness, no gait dysfunction, no frequent falls. No back pain. No neck pain. Integumentary: No wounds, no lesions. No rash or pruritus. No unusual bruising. No change in hair or nails. Neurologic: No aphasia. No facial droop. No change in mentation. No head injury. No headache. No paralysis. No paresthesia. Psychiatric: No depression. No anxiety. No mood swings. Endocrine: No abnormal blood sugars. No weight change. No excessive sweating or thirst. No cold intolerance. SOCIAL HISTORY Patient was a smoker of half a pack per day and quit 2 months ago. He uses marijuana. No alcohol use. He does not have oxygen, nebulizer or CPAP. He previously was living in a homeless longterm.. FAMILY HISTORY Mother has history of brain cancer and in September 2018. PHYSICAL EXAMINATION Gen: This is a 60-year-old male. He is resting in bed and appears to be comfortable and in no acute distress. HEENT: Head is atraumatic, normocephalic. Pupils equal, round. Sclerae is ani cteric. NECK: Supple. No JVD. No lymphadenopathy. No thyromegaly. LUNGS: Clear to auscultation. No wheezes or rhonchi. No intercostal retractions. HEART: Regular rate and rhythm. No murmur. ABDOMEN: Soft. Bowel sounds are present. No masses. No tenderness. EXTREMITIES: No pedal edema. No calf tenderness. NEUROLOGICAL: Patient is awake, alert and oriented x3. Cranial nerves 2 through 12 are grossly intact. ASSESSMENT AND PLAN 1. Non-ST elevated myocardial infarction status post stent RCA. Continue aspirin 81 mg daily, Lipitor 40 mg daily, Plavix 75 mg daily, Imdur 60 mg daily, Toprol-XL 50 mg daily. Patient is currently on nitroglycerin drip until discontinued by cardiology. 2. COPD. Continue DuoNeb treatments 4 times daily as needed, Pulmicort 0.5 mg twice daily. 3. Hypertension. Continue hydrochlorothiazide 12.5 mg daily, Toprol-XL, Imdur. 4. Hyperlipidemia. Continue atorvastatin 40 mg at bedtime 5. GI prophylaxis. Protonix. Patient will be admitted to the hospital for a minimum of 2 night stay. DISCHARGE PLAN Home. Impression and plan of care have been directed as dictated by the signing physician. Daysi Nunn nurse practitioner acting as scribe for signing physician. Past Medical History Past Medical History: Coronary Artery Disease (CAD), COPD, Myocardial Infarction (CA) Additional Past Medical History / Comment(s): Pt states he has hx of 3 respiratory arrests and was vented, generalized arthritis, Last Myocardial Infarction Date:: History of Any Multi-Drug Resistant Organisms: None Reported Past Surgical History: Adenoidectomy, Heart Catheterization With Stent, Hernia Repair, Joint Replacement, Orthopedic Surgery, Tonsillectomy Additional Past Surgical History / Comment(s): R inguinal hernia repair, L rotator cuff repair, bialteral total knee arthroplasties, R shoulder spur removal, teeth extracted, colonoscopy-normal. third hernia repair, left side Past Anesthesia/Blood Transfusion Reactions: No Reported Reaction Date of Last Stent Placement:: 2018 Past Psychological History: No Psychological Hx Reported Additional Psychological History / Comment(s): He uses no assistive devices. Smoking Status: Current some day smoker Past Alcohol Use History: Rare Additional Past Alcohol Use History / Comment(s): patient quit smoking in 12/2018, but has restarted. He uses marijuana (edilbel) daily for pain. He is recovering alcoholic and he drinks alcohol rarely at this point. He has history of illicit drug use including Phen-Fen a means, LSD, cocaine, heroin and quit all of this 9 years ago. 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 Past Drug Use History: Marijuana Additional Drug Use History / Comment(s): He states in the past he has used marijuana, heroin, crystal meth, cocaine and crack but none of those drugs for about 9 yrs. - Past Family History Father Family Medical History: Cancer Additional Family Medical History / Comment(s): Father of lung cancer at the age of 62. He was a smoker. Mother Family Medical History: Cancer, Diabetes Mellitus, Hypertension Additional Family Medical History / Comment(s): Mother at age 78 from brainstem cancer. Brother(s) Additional Family Medical History / Comment(s): Patient's 1 brother with history of AAA. Patient has 4 sisters and he does not know any of their medical history. Patient's 1 son and 1 daughter living. He had one daughter that at 7 weeks old from a congenital heart. Medications and Allergies Home Medications Medication Instructions Recorded Confirmed Type Budesonide [Pulmicort] 0.5 mg INHALATION RT-BID 03/03/16 10/31/20 History Aspirin EC [Ecotrin Low Dose] 81 mg PO DAILY 04/01/19 10/31/20 History Atorvastatin [Lipitor] 40 mg PO HS 04/07/19 10/31/20 History Nitroglycerin Sl Tabs [Nitrostat] 0.4 mg SUBLINGUAL Q5M PRN 04/22/20 10/31/20 History Metoprolol Succinate (ER) [Toprol 50 mg PO DAILY 10/30/20 10/31/20 History Xl] hydroCHLOROthiazide [Hydrodiuril] 12.5 mg PO DAILY 10/30/20 10/31/20 History Ipratropium-Albuterol Nebulize 3 ml INHALATION RT-Q6H 10/31/20 10/31/20 History [Duoneb 0.5 mg-3 mg/3 ml Soln] Isosorbide Mononitrate ER [Imdur] 60 mg PO DAILY 10/31/20 10/31/20 History Loratadine [Claritin] 10 mg PO DAILY 10/31/20 10/31/20 History Allergies Allergy/AdvReac Type Severity Reaction Status Date / Time [facility] [[facility]] AdvReac Nausea & Verified 10/31/20 15:39 Vomiting Physical Exam Vitals: Vital Signs Temp Pulse Pulse Resp BP Pulse Ox 11/01/20 11:08 74 16 120/57 11/01/20 10:08 62 16 174/96 95 11/01/20 09:38 62 16 122/84 95 11/01/20 09:08 72 16 146/80 95 11/01/20 08:53 68 16 125/80 95 11/01/20 08:38 65 16 144/93 95 11/01/20 08:30 16 11/01/20 08:23 97.7 F 18 147/86 95 11/01/20 04:00 98.6 F 72 16 114/71 95 11/01/20 00:00 98.2 F 89 16 115/64 95 10/31/20 20:02 80 10/31/20 20:00 98.2 F 73 18 130/77 96 10/31/20 19:48 76 10/31/20 16:20 97.7 F 66 16 114/72 96 10/31/20 15:00 97.9 F 74 17 117/72 97 Intake and Output 10/31/20 11/01/20 11/01/20 22:59 06:59 14:59 Intake Total 240 200 Balance 240 200 Intake: IV 200 Oral 240 0 Other: Voiding Method Toilet Toilet Toilet # Voids 1 1 Weight 95.5 kg 95.5 kg Results CBC & Chem 7: 11/01/20 10:38 Labs: Abnormal Lab Results - Last 24 Hours (Table) 10/31/20 Range/Units 16:31 POC Glucose (mg/dL) 113 H (75-99) mg/dL Thrombosis Risk Factor Assmnt - Choose All That Apply Any of the Below Risk Factors Present?: Yes Each Factor Represents 1 point: Abnormal pulmonary function (COPD), Acute CA, Age 41-60 years, Obesity (BMI >25) Other Risk Factors: No Other congenital or acquired thrombophilia - If yes, enter type in comment: No Thrombosis Risk Factor Assessment Total Risk Factor Score: 4 Thrombosis Risk Factor Assessment Level: Moderate Risk
[2020-11-01] MEDS: NITROGLYCERIN-D5W PMX 50 MG in DEXTROSE/WATER 1 250ML.BAG IV SCH (18:03)
[2020-11-01] MEDS: ATORVASTATIN 40 MG TAB PO SCH (20:55)
[2020-11-02] MEDS: BUDESONIDE 0.5 MG/2 ML NEBU INHALATION SCH (07:48)
[2020-11-02] MEDS: IPRATROPIUM-ALBUTEROL 3 ML NEB INHALATION PRN (07:48)
[2020-11-02] MEDS: ISOSORBIDE MONONITRATE ER 60 MG TAB.ER.24H PO SCH (08:53)
[2020-11-02] MEDS: hydroCHLOROthiazide 12.5 MG CAP PO SCH (08:53)
[2020-11-02] MEDS: METOPROLOL SUCCINATE (ER) 50 MG TAB.ER.24H PO SCH (08:53)
[2020-11-02] MEDS: LORATADINE 10 MG TAB PO SCH (08:53)
[2020-11-02] MEDS ORDERED: CLOPIDOGREL 75 MG TAB PO SCH (09:00)
[2020-11-02] MEDS ORDERED: ASPIRIN 81 MG PO SCH (09:00)
[2020-11-02 09:59] LABS: African American GFR (CKD) >90 (>60 ml/min/1.73 sqM); Anion Gap 11 mmol/L; Blood Urea Nitrogen 11 mg/dL (9-20); Calcium 9.8 mg/dL (8.4-10.2); Carbon Dioxide 21 mmol/L (22-30); Chloride 104 mmol/L (98-107); Glucose 142 mg/dL (74-99); Non-African American GFR(CKD) >90 (>60 ml/min/1.73 sqM); Potassium 4.1 mmol/L (3.5-5.1); Sodium 136 mmol/L (137-145)
--- NOTE | 2020-11-02 10:28 | P.DS ---
Providers Date of admission: 10/31/20 13:44 Attending physician: Janessa Franco MD Consults: 10/31/20 14:44 Consult Physician Routine Consulting Provider: Idris De Luna Consult Reason/Comments: chest pain Do you want consulting provider notified?: Yes Placement Type Exists?: Yes 11/01/20 08:23 Consult Physician Routine Consulting Provider: [facility] Consult Reason/Comments: Post Interventional patient Do you want consulting provider notified?: Already Contacted Primary care physician: Stated None Hospital Course: HISTORY OF PRESENT ILLNESS This is a 60-year-old female patient of Siva Erwin NP, with past medical history of non-ST elevated myocardial infarction with heart catheterization and stent placement in 2019, COPD with remote history of tobacco use, hypertension, hyperlipidemia. Patient was initially seen at [facility] and underwent heart catheterization there that revealed severe disease involving the mid right coronary artery which seems to be an in-stent restenosis. Patient was transferred to [facility] and is status post stenting of the mid right coronary artery. Patient apparently had chest pain following the procedure and is on nitroglycerin drip and this has subsequently resolved. 11/02: Patient is found sitting up in bed with no complaint or concerns. He is anxious to go home. Patient has been ambulatory within the room and halls without any difficulties. Patient puncture site is clean and dry without any drainage noted. Positive ecchymosis. Discussed with patient smoking cessation offered nicotine patch which patient declined. Discharge diagnosis: 1. Non-ST elevated myocardial infarction status post stent RCA. 2. COPD. 3. Hypertension. 4. Hyperlipidemia. 5. Nicotine dependence DISCHARGE Disposition Home with self care Impression and plan of care have been directed as dictated by the signing physician. Isabel De La Cruz nurse practitioner acting as scribe for signing physician. Plan - Discharge Summary Discharge Rx Participant: Yes New Discharge Prescriptions: New Clopidogrel [Plavix] 75 mg PO DAILY #30 tab Continue Budesonide [Pulmicort] 0.5 mg INHALATION RT-BID Aspirin EC [Ecotrin Low Dose] 81 mg PO DAILY Atorvastatin [Lipitor] 40 mg PO HS Nitroglycerin Sl Tabs [Nitrostat] 0.4 mg SUBLINGUAL Q5M PRN PRN Reason: Chest Pain Metoprolol Succinate (ER) [Toprol XL] 50 mg PO DAILY Isosorbide Mononitrate ER [Imdur] 60 mg PO DAILY Loratadine [Claritin] 10 mg PO DAILY hydroCHLOROthiazide [Hydrodiuril] 12.5 mg PO DAILY Ipratropium-Albuterol Nebulize [Duoneb 0.5 mg-3 mg/3 ml Soln] 3 ml INHALATION RT-Q6H Discharge Medication List Budesonide [Pulmicort] 0.5 mg INHALATION RT-BID 03/03/16 [History] Aspirin EC [Ecotrin Low Dose] 81 mg PO DAILY 04/01/19 [History] Atorvastatin [Lipitor] 40 mg PO HS 04/07/19 [History] Nitroglycerin Sl Tabs [Nitrostat] 0.4 mg SUBLINGUAL Q5M PRN 04/22/20 [History] Metoprolol Succinate (ER) [Toprol XL] 50 mg PO DAILY 10/30/20 [History] hydroCHLOROthiazide [Hydrodiuril] 12.5 mg PO DAILY 10/30/20 [History] Ipratropium-Albuterol Nebulize [Duoneb 0.5 mg-3 mg/3 ml Soln] 3 ml INHALATION RT-Q6H 10/31/20 [History] Isosorbide Mononitrate ER [Imdur] 60 mg PO DAILY 10/31/20 [History] Loratadine [Claritin] 10 mg PO DAILY 10/31/20 [History] Clopidogrel [Plavix] 75 mg PO DAILY #30 tab 11/02/20 [Rx] Follow up Appointment(s)/Referral(s): Idris De Luna MD [STAFF PHYSICIAN] - 1 Week
[2020-11-02 10:56] VITALS: BP 142/69; PULSE 88; RESP 18; TEMP 98.2
--- NOTE | 2020-11-02 13:15 | P.PN ---
Subjective Progress Note Date: 11/02/20 HISTORY OF PRESENT ILLNESS: Patient examined this morning at the bedside. Patient is status post stenting of the mid RCA with Dr. Torres. Patient denies chest pain or pressure. He d enies shortness of breath. Vital signs are stable. Patient is anxious to be discharged home today PHYSICAL EXAM: VITAL SIGNS: Reviewed. GENERAL: Well-developed in no acute distress. NECK: Supple. No JVD or thyromegaly LUNGS: Respirations even and unlabored. Lungs essentially clear to auscultation bilaterally. HEART: Regular rate and rhythm. S1 and S2 heard. EXTREMITIES: Normal range of motion. No clubbing or cyanosis. Peripheral pulses intact. No lower extremity edema ASSESSMENT: Non-STEMI Coronary artery disease Hypertension Hyperlipidemia Chronic nicotine dependence PLAN: Patient is stable for discharge home today on current cardiac medications History follow up outpatient Nurse practitioner note has been reviewed by physician. Signing provider agrees with the documented findings, assessment, and plan of care. Objective - Vital Signs Vital signs: Vital Signs Temp 98.2 F 11/02/20 08:00 Pulse 77 11/02/20 08:01 Resp 18 11/02/20 08:00 BP 142/69 11/02/20 08:00 Pulse Ox 96 11/02/20 08:00 Intake & Output 11/01/20 11/02/20 11/02/20 18:59 06:59 18:59 Intake Total 318 240 Balance 318 240 Weight 95.5 kg 96.3 kg Intake: IV 200 Oral 118 240 Other: Voiding Method Toilet Toilet Toilet # Voids 1 - Labs CBC & Chem 7: 11/02/20 08:57 Labs: Abnormal Lab Results - Last 24 Hours (Table) 11/02/20 Range/Units 08:57 Sodium 136 L (137-145) mmol/L Carbon Dioxide 21 L (22-30) mmol/L Glucose 142 H (74-99) mg/dL
== END 2020-11-02 11:39 | disposition home or self-care (01) | DRG 247 ==
LOC: 6NMEDSUR 13:44 → 3SCARD 15:38
PROVIDERS: ADMIT Internal Medicine; ATTEND Internal Medicine
PROC: 027034Z Dilation of Coronary Artery, One Artery with Drug-eluting Intraluminal Device, Percutaneous Approach (ICD-10-PCS; principal; 2020-11-01 09:55)
DX: I21.4 Non-ST elevation (NSTEMI) myocardial infarction (principal); T82.855A Stenosis of coronary artery stent, initial encounter; I25.10 Atherosclerotic heart disease of native coronary artery without angina pectoris; I25.2 Old myocardial infarction; J44.9 Chronic obstructive pulmonary disease, unspecified; M13.0 Polyarthritis, unspecified; Y83.1 Surgical operation with implant of artificial internal device as the cause of abnormal reaction of the patient, or of later complication, without mention of misadventure at the time of the procedure; E78.5 Hyperlipidemia, unspecified; F10.21 Alcohol dependence, in remission; F17.220 Nicotine dependence, chewing tobacco, uncomplicated; I10 Essential (primary) hypertension; F11.11 Opioid abuse, in remission; F16.11 Hallucinogen abuse, in remission; F14.11 Cocaine abuse, in remission; Z77.090 Contact with and (suspected) exposure to asbestos; Z79.82 Long term (current) use of aspirin; F15.11 Other stimulant abuse, in remission; Z79.899 Other long term (current) drug therapy; Z80.1 Family history of malignant neoplasm of trachea, bronchus and lung; Z80.8 Family history of malignant neoplasm of other organs or systems; Z82.49 Family history of ischemic heart disease and other diseases of the circulatory system; Z83.3 Family history of diabetes mellitus; Z90.89 Acquired absence of other organs; Z98.890 Other specified postprocedural states; Z96.653 Presence of artificial knee joint, bilateral; Z95.5 Presence of coronary angioplasty implant and graft; Z87.09 Personal history of other diseases of the respiratory system
CPT/HCPCS: 80048; 80051; 82565; 84520; 85027; 94640; 94760

== ENCOUNTER 2020-11-04 17:01 | Observation (INO) | payer MEDICARE, OTHER ==
[2020-11-04 17:38] LABS: Basophils # (A) 0.1 k/uL (0-0.2); Basophils % (A) 1 %; Eosinophils # (A) 0.2 k/uL (0-0.7); Eosinophils % (A) 2 %; HCT 46.2 % (39.0-53.0); HGB 16.2 gm/dL (13.0-17.5); Lymphocytes # (A) 3.8 k/uL (1.0-4.8); Lymphocytes % (A) 34 %; MCH 30.7 pg (25.0-35.0); MCV 87.7 fL (80.0-100.0); Mean Platelet Volume 8.3; Monocytes # (A) 0.6 k/uL (0-1.0); Monocytes % (A) 5 %; Neutrophils # (A) 6.2 k/uL (1.3-7.7); Neutrophils % (A) 56 %; Platelet Count 277 k/uL (150-450); RBC 5.26 m/uL (4.30-5.90); RDW 12.8 % (11.5-15.5); WBC 11.1 k/uL (3.8-10.6)
[2020-11-04] MEDS ORDERED: NITROGLYCERIN SL TABS 0.4 MG TAB SUBLINGUAL STA (17:41)
[2020-11-04] MEDS ORDERED: MORPHINE SULFATE 4 MG/ML SYRINGE IVP STA (17:41)
[2020-11-04 17:48] LABS: Albumin 4.6 g/dL (3.5-5.0); Calcium 9.7 mg/dL (8.4-10.2); Magnesium 2.2 mg/dL (1.6-2.3); Potassium 4.4 mmol/L (3.5-5.1); Total Bilirubin 0.4 mg/dL (0.2-1.3); Total Protein 7.4 g/dL (6.3-8.2)
[2020-11-04 18:08] LABS: INR 0.9 (<1.2); Partial Thromboplastin Time 23.6 sec (22.0-30.0)
[2020-11-04] MEDS ORDERED: NALOXONE 0.4 MG/ML 1 ML VIAL IV PRN (18:26)
--- NOTE | 2020-11-04 18:26 | ED ---
Chest Pain HPI - General Chief Complaint: Chest Pain Stated Complaint: Chest pain/post stent 10/31/20 Source: patient Mode of arrival: wheelchair Limitations: no limitations - History of Present Illness Initial Comments: 60-year-old male with past medical history of coronary disease who presents emergency department with chest pain. He was recent hospitalized last week. Had a stent placed on Wednesday by Dr. De Luna in his RCA. Patient reports that he woke up this morning with chest pain. Describes it as substernal with radiation to his left jaw. Also admits to left arm pain. He does have nitro at home however did not take one. Denies cough, fevers or chills. Patient is on Plavix and denies any missed doses. No ripping or tearing sensation to his back. Denies any numbness, tingling or weakness in his lower extremities. No other alleviating, physical detail factors - Related Data Home Medications Medication Instructions Recorded Confirmed Budesonide [Pulmicort] 0.5 mg INHALATION RT-BID 03/03/16 11/04/20 Aspirin EC [Ecotrin Low Dose] 81 mg PO DAILY 04/01/19 11/04/20 Atorvastatin [Lipitor] 40 mg PO HS 04/07/19 11/04/20 Nitroglycerin Sl Tabs [Nitrostat] 0.4 mg SUBLINGUAL Q5M PRN 04/22/20 11/04/20 Metoprolol Succinate (ER) [Toprol 50 mg PO DAILY 10/30/20 11/04/20 XL] hydroCHLOROthiazide [Hydrodiuril] 12.5 mg PO DAILY 10/30/20 11/04/20 Ipratropium-Albuterol Nebulize 3 ml INHALATION RT-Q6H 10/31/20 11/04/20 [Duoneb 0.5 mg-3 mg/3 ml Soln] Isosorbide Mononitrate ER [Imdur] 60 mg PO DAILY 10/31/20 11/04/20 Loratadine [Claritin] 10 mg PO DAILY 10/31/20 11/04/20 Previous Rx's Medication Instructions Recorded Clopidogrel [Plavix] 75 mg PO DAILY #30 tab 11/02/20 Allergies Allergy/AdvReac Type Severity Reaction Status Date / Time levofloxacin [From Levaquin] AdvReac Nausea & Verified 11/08/20 10:19 Vomiting Review of Systems ROS Statement: Those systems with pertinent positive or pertinent negative responses have been documented in the HPI. ROS Other: All systems not noted in ROS Statement are negative. EKG Findings - EKG Comments: EKG Findings:: EKG demonstrates sinus rhythm with ventricular rate of 94. CA interval 162. QRS is 84. QTC 435. No Acute ST segment elevations or depressions concerning for ischemic changes Past Medical History Past Medical History: Coronary Artery Disease (CAD), COPD, Myocardial Infarction ([place]) Additional Past Medical History / Comment(s): Pt states he has hx of 3 respiratory arrests and was vented, generalized arthritis, Last Myocardial Infarction Date:: History of Any Multi-Drug Resistant Organisms: None Reported Past Surgical History: Adenoidectomy, Heart Catheterization With Stent, Hernia Repair, Joint Replacement, Orthopedic Surgery, Tonsillectomy Additional Past Surgical History / Comment(s): R inguinal hernia repair, L rotator cuff repair, bialteral total knee arthroplasties, R shoulder spur removal, teeth extracted, colonoscopy-normal. third hernia repair, left side Past Anesthesia/Blood Transfusion Reactions: No Reported Reaction Date of Last Stent Placement:: 2018 Past Psychological History: No Psychological Hx Reported Smoking Status: Current some day smoker Past Alcohol Use History: Rare Past Drug Use History: Marijuana - Past Family History Father Family Medical History: Cancer Additional Family Medical History / Comment(s): Father of lung cancer at the age of 62. He was a smoker. Mother Family Medical History: Cancer, Diabetes Mellitus, Hypertension Additional Family Medical History / Comment(s): Mother at age 78 from brainstem cancer. Brother(s) Additional Family Medical History / Comment(s): Patient's 1 brother with history of AAA. Patient has 4 sisters and he does not know any of their medical history. Patient's 1 son and 1 daughter living. He had one daughter that at 7 weeks old from a congenital heart. General Exam Limitations: no limitations General appearance: alert, in no apparent distress Head exam: Present: atraumatic, normocephalic, normal inspection Eye exam: Present: normal appearance, PERRL, EOMI. Absent: scleral icterus, conjunctival injection, periorbital swelling ENT exam: Present: normal exam, mucous membranes moist Neck exam: Present: normal inspection. Absent: tenderness, meningismus, lymphadenopathy Respiratory exam: Present: normal lung sounds bilaterally. Absent: respiratory distress, wheezes, rales, rhonchi, stridor Cardiovascular Exam: Present: regular rate, normal rhythm, normal heart sounds. Absent: systolic murmur, diastolic murmur, rubs, gallop, clicks GI/Abdominal exam: Present: soft, normal bowel sounds. Absent: distended, tenderness, guarding, rebound, rigid Extremities exam: Present: normal inspection, full ROM, normal capillary refill. Absent: tenderness, pedal edema, joint swelling, calf tenderness Back exam: Present: normal inspection Neurological exam: Present: alert, oriented X3, CN II-XII intact Psychiatric exam: Present: normal affect, normal mood Skin exam: Present: warm, dry, intact, normal color. Absent: rash Course Vital Signs 11/04/20 11/04/20 11/04/20 17:08 17:30 18:39 Temperature 98.9 F Pulse Rate 89 96 83 Respiratory 24 20 20 Rate Blood Pressure 138/105 163/92 130/93 O2 Sat by Pulse 96 97 94 L Oximetry 11/04/20 11/04/20 11/05/20 21:18 21:32 04:09 Temperature Pulse Rate 84 65 Respiratory 12 20 16 Rate Blood Pressure 120/81 140/50 O2 Sat by Pulse 98 97 99 Oximetry 11/05/20 11/05/20 11/05/20 07:42 07:54 10:42 Temperature Pulse Rate 84 81 80 Respiratory 18 16 16 Rate Blood Pressure O2 Sat by Pulse Oximetry 11/05/20 11/05/20 10:52 11:33 Temperature Pulse Rate 82 87 Respiratory 16 18 Rate Blood Pressure 120/84 O2 Sat by Pulse 95 Oximetry Chest Pain MDM - MDM On arrival patient was placed into room 19. There are history of physical exam is performed. IV is established. She is given formal grams of morphine for pain control. Laboratory studies were conducted. First troponin is negative. Chest x-ray is performed which demonstrates no acute cardiac coronary process. As the patient did have recent stent placement who recommended admission. Spoke with Dr. Frazier who agreed to admit the patient. Patient remained in stable condition awaiting a bed on the floor Disposition Clinical Impression: Chest pain Disposition: ADMITTED IP TO THIS HOSP Condition: Stable Is patient prescribed a controlled substance at d/c from ED?: No Decision to Admit Reason: Admit from EC Decision Date: 11/04/20 Decision Time: 18:26
[2020-11-04] MEDS ORDERED: ASPIRIN 81 MG PO STA (18:27)
--- NOTE | 2020-11-04 19:30 | XR ---
EXAMINATION TYPE: XR chest 2V DATE OF EXAM: 11/04/2020 COMPARISON: NONE HISTORY: Chest pain TECHNIQUE: Frontal and lateral views of the chest are obtained. FINDINGS: There is no focal air space opacity, pleural effusion, or pneumothorax seen. The cardiac silhouette size is within normal limits. The osseous structures are intact. IMPRESSION: No acute cardiopulmonary process.
[2020-11-04] MEDS ORDERED: NITROGLYCERIN SL TABS 0.4 MG TAB SUBLINGUAL PRN (21:02)
[2020-11-04] MEDS ORDERED: IPRATROPIUM-ALBUTEROL 3 ML NEB INHALATION PRN (21:19)
[2020-11-04] MEDS: MORPHINE SULFATE 4 MG/ML SYRINGE IV PRN (21:30)
[2020-11-05] MEDS ORDERED: IPRATROPIUM-ALBUTEROL 3 ML NEB INHALATION SCH (02:00)
[2020-11-05] MEDS: BUDESONIDE 0.5 MG/2 ML NEBU INHALATION SCH ×2 (07:41→19:19)
[2020-11-05] MEDS: IPRATROPIUM-ALBUTEROL 3 ML NEB INHALATION SCH ×4 (07:41→19:19)
[2020-11-05] MEDS: CLOPIDOGREL 75 MG TAB PO SCH (08:47)
[2020-11-05] MEDS: ISOSORBIDE MONONITRATE ER 60 MG TAB.ER.24H PO SCH (08:47)
[2020-11-05] MEDS: ASPIRIN 81 MG PO SCH (08:47)
[2020-11-05] MEDS: METOPROLOL SUCCINATE (ER) 50 MG TAB.ER.24H PO SCH (08:47)
[2020-11-05] MEDS: hydroCHLOROthiazide 12.5 MG CAP PO SCH (08:47)
[2020-11-05] MEDS: LORATADINE 10 MG TAB PO SCH (08:47)
[2020-11-05 09:37] LABS: Basophils # (A) 0.08 X 10*3/uL (0.00-0.10); Eosinophils # (A) 0.31 X 10*3/uL (0.04-0.35); Eosinophils % (A) 3.7 %; HCT 44.7 % (39.6-50.0); HGB 14.9 g/dL (13.0-17.0); Lymphocytes # (A) 2.99 X 10*3/uL (0.90-5.00); Lymphocytes % (A) 35.6 %; MCH 29.4 pg (27.0-32.0); MCHC 33.3 g/dL (32.0-37.0); MCV 88.2 fL (80.0-97.0); Mean Platelet Volume 11.2 fL (9.5-12.2); Monocytes # (A) 0.65 X 10*3/uL (0.20-1.00); Monocytes % (A) 7.7 %; Neutrophils # (A) 4.31 X 10*3/uL (1.80-7.70); Neutrophils % (A) 51.3 %; Platelet Count 263 X 10*3/uL (140-440); RBC 5.07 X 10*6/uL (4.40-5.60); RDW 13.1 % (11.5-14.5)
[2020-11-05] MEDS ORDERED: SODIUM CHLORIDE 0.9% 1,000 ML in EMPTY BAG 1 BAG IV ONE (11:21)
[2020-11-05] MEDS ORDERED: ALPRAZolam 0.25 MG TAB PO PRN (11:21)
[2020-11-05] MEDS ORDERED: ALPRAZolam 0.5 MG TAB PO PRN (11:21)
--- NOTE | 2020-11-05 11:30 | P.CRDCN ---
History of Present Illness History of present illness: HISTORY OF PRESENTING ILLNESS This is a pleasant 60-year-old male past medical history significant for coronary artery disease status post prior PCI in the RCA, hypertension, dyslipidemia, known intermediate disease involving the LAD, chronic nicotine dependence, COPD. He follows in the office with Dr. De Luna. We have been asked to see in consultation for chest pain. Patient is seen and examined in the emergency department. Patient presented to [facility] earlier this month with chest discomfort and continued to have ongoing chest discomfort. He underwent a heart catheterization at [facility] Dr. De Luna and revealed severe disease involving the mid RCA which seems to be in stent restenosis. Patient was transferred to [facility] for stenting. Patient underwent successful stenting of the mid RCA with Dr. De Luna 11/01/2020. Patient was discharged on 11/02/2020. Patient presents to the emergency department with worsening chest pain. Patient states his chest pain has been worsening since Wednesday. It is exertional. It is radiating to his jaw and back to his neck. He states that before he had a stent chest pain was intermittent and it would come and go. However currently the patient's chest pain is constant. He states his pain is about 2/10 when resting, but with activity it significantly worsens. He has associated shortness of breath and headache. Describes his chest pain as a pressure. Alleviating factors are nitroglycerin and resting. He states he was taking all his medication as prescribed after his stent placement. DIAGNOSTICS EKG reveals sinus rhythm, heart rate 94, T wave inversions in lead III, and aVF. Prior EKGs appear similar. Cardiac catheterization history includes: 12/2018- critical disease in the RCA, intermediate disease in the mid LAD, patient underwent PCI mid RCA 10/31/2020- revealed severe disease involving the mid RCA which seems to be in stent restenosis. Patient underwent PCI mid RCA Most recent echocardiogram 05/01/2019 revealing ejection fraction of 50%, mild tricuspid regurgitation, mild mitral regurgitation Chest xray no acute cardiopulmonary process. Laboratory reviewed, sodium 137, potassium 4.4, BUN 27, serum parental 0.1, troponin negative 3, magnesium 2.2, proBNP 39, WBC 8.4, mean 14.9, platelets 2 63. Current home cardiac medications include atorvastatin 40 mg daily, Hydrochlorothiazide 12.5 mg daily, nitroglycerin 0.4 mg when necessary, metoprolol succinate 50 mg daily, Imdur 60 mg daily, Plavix 75 mg daily, aspirin 81 mg daily. REVIEW OF SYSTEMS At the time of my exam: CONSTITUTIONAL: Denies fever or chills. CARDIOVASCULAR: + chest pain, +shortness of breath, Denies orthopnea, PND or pal pitations. RESPIRATORY: Denies cough. GASTROINTESTINAL: Denies abdominal pain, diarrhea, constipation, nausea or vomiting. MUSCULOSKELETAL: Denies myalgias. NEUROLOGIC: +headache Denies numbness, tingling, weakness. ENDOCRINE: Denies fatigue, weight change, polydipsia or polyurina. GENITOURINARY: Denies burning, hematuria or urgency with micturation. HEMATOLOGIC: Denies history of anemia or bleeding. PHYSICAL EXAMINATION Blood pressure 140/50 heart rate 65 afebrile and maintaining oxygen saturation 99% on room air CONSTITUTIONAL: No apparent distress. HEENT: Head is normocephalic. Pupils are equal, round. Sclerae anicteric. Mucous membranes of the mouth are moist. No JVD. No carotid bruit. CHEST EXAMINATION: Lungs are clear to auscultation. No chest wall tenderness is noted on palpation or with deep breathing. HEART EXAMINATION: Regular rate and rhythm. S1, S2 heard. ABDOMEN: Soft, nontender. Positive bowel sounds. EXTREMITIES: 2+ peripheral pulses, no lower extremity edema and no calf tenderness. SKIN: no wounds or rashes NEUROLOGIC EXAMINATION: Patient is awake, alert and oriented x3. 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 De Luna. Recommending proceeding with cardiac catheterization at this time I have discussed the risks, benefits and alternative therapies for the above- mentioned procedure and for both sedation/analgesia as well as necessary blood product administration, if indicated, as they pertain to this patient. The patient has indicated understanding and acceptance of the risks and procedures discussed. Questions have been answered appropriately and he is agreeable to move forward with the above-stated procedure. Continue aspirin, statin, Plavix, hydrochlorothiazide, metoprolol succinate and imdur Further recommendations based on clinical course. Nurse Practitioner note has been reviewed, I agree with a documented findings and plan of care. Patient was seen and examined. Past Medical History Past Medical History: Coronary Artery Disease (CAD), COPD, Myocardial Infarction ([place]) Additional Past Medical History / Comment(s): Pt states he has hx of 3 respiratory arrests and was vented, generalized arthritis, Last Myocardial Infarction Date:: History of Any Multi-Drug Resistant Organisms: None Reported Past Surgical History: Adenoidectomy, Heart Catheterization With Stent, Hernia Repair, Joint Replacement, Orthopedic Surgery, Tonsillectomy Additional Past Surgical History / Comment(s): R inguinal hernia repair, L rotator cuff repair, bialteral total knee arthroplasties, R shoulder spur removal, teeth extracted, colonoscopy-normal. third hernia repair, left side Past Anesthesia/Blood Transfusion Reactions: No Reported Reaction Date of Last Stent Placement:: 2018 Past Psychological History: No Psychological Hx Reported Smoking Status: Current some day smoker Past Alcohol Use History: Rare Past Drug Use History: Marijuana - Past Family History Father Family Medical History: Cancer Additional Family Medical History / Comment(s): Father of lung cancer at the age of 62. He was a smoker. Mother Family Medical History: Cancer, Diabetes Mellitus, Hypertension Additional Family Medical History / Comment(s): Mother at age 78 from brainstem cancer. Brother(s) Additional Family Medical History / Comment(s): Patient's 1 brother with history of AAA. Patient has 4 sisters and he does not know any of their medical history. Patient's 1 son and 1 daughter living. He had one daughter that at 7 weeks old from a congenital heart. Medications and Allergies Home Medications Medication Instructions Recorded Confirmed Type Budesonide [Pulmicort] 0.5 mg INHALATION RT-BID 03/03/16 11/04/20 History Aspirin EC [Ecotrin Low Dose] 81 mg PO DAILY 04/01/19 11/04/20 History Atorvastatin [Lipitor] 40 mg PO HS 04/07/19 11/04/20 History Nitroglycerin Sl Tabs [Nitrostat] 0.4 mg SUBLINGUAL Q5M PRN 04/22/20 11/04/20 History Metoprolol Succinate (ER) [Toprol 50 mg PO DAILY 10/30/20 11/04/20 History XL] hydroCHLOROthiazide [Hydrodiuril] 12.5 mg PO DAILY 10/30/20 11/04/20 History Ipratropium-Albuterol Nebulize 3 ml INHALATION RT-Q6H 10/31/20 11/04/20 History [Duoneb 0.5 mg-3 mg/3 ml Soln] Isosorbide Mononitrate ER [Imdur] 60 mg PO DAILY 10/31/20 11/04/20 History Loratadine [Claritin] 10 mg PO DAILY 10/31/20 11/04/20 History Clopidogrel [Plavix] 75 mg PO DAILY #30 tab 11/02/20 11/04/20 Rx Allergies Allergy/AdvReac Type Severity Reaction Status Date / Time levofloxacin [From [facility]] AdvReac Nausea & Verified 11/04/20 19:05 Vomiting Physical Exam Vitals: Vital Signs Temp Pulse Resp BP Pulse Ox 11/05/20 04:09 65 16 140/50 99 11/04/20 21:32 84 20 120/81 97 11/04/20 18:39 83 20 130/93 94 L 11/04/20 17:30 96 20 163/92 97 11/04/20 17:08 98.9 F 89 24 138/105 96 Intake and Output 11/04/20 11/05/20 11/05/20 22:59 06:59 14:59 Other: Weight 95.254 kg Results 11/05/20 03:44 11/04/20 17:30 Cardiac Enzymes 11/04/20 11/04/20 11/04/20 Range/Units 17:30 17:30 20:31 AST 38 (17-59) U/L Troponin I 0.014 0.015 (0.000-0.034) ng/mL 11/04/20 Range/Units 23:43 AST (17-59) U/L Troponin I 0.013 (0.000-0.034) ng/mL Coagulation 11/04/20 Range/Units 17:30 PT 10.0 (9.0-12.0) sec APTT 23.6 (22.0-30.0) sec CBC 11/04/20 Range/Units 17:30 WBC 11.1 H (3.8-10.6) k/uL RBC 5.26 (4.30-5.90) m/uL Hgb 16.2 (13.0-17.5) gm/dL Hct 46.2 (39.0-53.0) % Plt Count 277 (150-450) k/uL Comprehensive Metabolic Panel 11/04/20 Range/Units 17:30 Sodium 137 (137-145) mmol/L Potassium 4.4 (3.5-5.1) mmol/L Chloride 101 (98-107) mmol/L Carbon Dioxide 25 (22-30) mmol/L BUN 27 H (9-20) mg/dL Creatinine 1.13 (0.66-1.25) mg/dL Glucose 97 (74-99) mg/dL Calcium 9.7 (8.4-10.2) mg/dL AST 38 (17-59) U/L ALT 52 H (4-49) U/L Alkaline Phosphatase 122 (38-126) U/L Total Protein 7.4 (6.3-8.2) g/dL Albumin 4.6 (3.5-5.0) g/dL Current Medications Generic Name Dose Route Start Last Admin Trade Name Freq PRN Reason Stop Dose Admin Albuterol/Ipratropium 3 ml 11/05/20 08:00 Ipratropium-Albuterol 3 Ml Neb INHALATION RT-QID PRASHANT Albuterol/Ipratropium 3 ml 11/04/20 21:19 Ipratropium-Albuterol 3 Ml Neb INHALATION RT-Q2H PRN Shortness Of Breath Or Wheezing Aspirin 81 mg 11/05/20 09:00 Aspirin 81 Mg PO DAILY [facility] Atorvastatin Calcium 40 mg 11/05/20 21:00 Atorvastatin 40 Mg Tab PO HS [facility] Budesonide 0.5 mg 11/05/20 08:00 Budesonide 0.5 Mg/2 Ml Nebu INHALATION RT-BID [facility] Clopidogrel Bisulfate 75 mg 11/05/20 09:00 Clopidogrel 75 Mg Tab PO DAILY [facility] Hydrochlorothiazide 12.5 mg 11/05/20 09:00 Hydrochlorothiazide 12.5 Mg Cap PO DAILY [facility] Isosorbide Mononitrate 60 mg 11/05/20 09:00 Isosorbide Mononitrate Er 60 Mg Tab.Er.24h PO DAILY [facility] Loratadine 10 mg 11/05/20 09:00 Loratadine 10 Mg Tab PO DAILY [facility] Metoprolol Succinate 50 mg 11/05/20 09:00 Metoprolol Succinate (Er) 50 Mg Tab.Er.24h PO DAILY [facility] Morphine Sulfate 4 mg 11/04/20 18:26 11/04/20 21:30 Morphine Sulfate 4 Mg/Ml Syringe IV 4 mg Q4HR PRN Administration Severe Pain Naloxone HCl 0.2 mg 11/04/20 18:26 Naloxone 0.4 Mg/Ml 1 Ml Vial IV Q2M PRN Opioid Reversal Nitroglycerin 0.4 mg 11/04/20 21:02 Nitroglycerin Sl Tabs 0.4 Mg Tab SUBLINGUAL Q5M PRN Chest Pain Intake and Output 11/04/20 11/05/20 11/05/20 22:59 06:59 14:59 Other: Weight 95.254 kg 11/04/20 17:30 11/04/20 17:30
[2020-11-05] MEDS ORDERED: HEPARIN SODIUM 1,000 UN/ML (10ML VL) ONE (11:38)
[2020-11-05] MEDS ORDERED: fentaNYL (PF) 50 MCG/ML 2 ML AMP ONE (11:39)
[2020-11-05] MEDS ORDERED: ASPIRIN 81 MG ONE (11:49)
[2020-11-05] MEDS ORDERED: ASPIRIN 81 MG PO ONE (11:59)
[2020-11-05] MEDS ORDERED: MIDAZOLAM 2 MG/2 ML VIAL IV ONE (12:00)
[2020-11-05] MEDS: LIDOCAINE 1% INJ 10MG/ML (20 ML MDV) SQ ONE ×2 (12:01→12:09)
[2020-11-05] MEDS ORDERED: IV FLUID CONTINUATION 900 ML IV ONE (12:01)
[2020-11-05] MEDS ORDERED: HEPARIN SODIUM 1,000 UN/ML (10ML VL) IV ONE (12:15)
[2020-11-05] MEDS ORDERED: ADENOSINE 90 MG in SODIUM CHLORIDE 0.9% 60 ML IVP ONE (12:33)
[2020-11-05] MEDS ORDERED: fentaNYL (PF) 50 MCG/ML 2 ML AMP IV ONE (12:35)
[2020-11-05] MEDS ORDERED: IOPAMIDOL-370 125ML BTL INJ ONE (12:37)
[2020-11-05] MEDS ORDERED: ONDANSETRON 4 MG/2 ML VIAL ONE (12:42)
[2020-11-05] MEDS ORDERED: RX INFO: IV CONTRAST WAS GIVEN 1 EACH MISC MISCELLANE PRN (12:43)
[2020-11-05] MEDS ORDERED: SODIUM CHLORIDE 0.9% 1,000 ML IV SCH (12:45)
--- NOTE | 2020-11-05 13:14 | P.HPIM ---
History of Present Illness H&P Date: 11/05/20 Marcel Jo, is a 60 year old male who presented to [facility] emergency room with a chief complaint of chest pain, patient describes a substernal pain radiating to the jaw that started when patient woke up this morning, patient was recently admitted to [facility] and underwent angioplasty and stent placement to the RCA. He was evaluated in the emergency room vital examination on presentation revealed a temperature of 98.9 pulse 89 respiration 24 blood pressure 138/105 pulse ox 96% on room air Laboratory data reveals a white blood count of 11.1 hemoglobin 16.2 platelet count 277 sodium 137 potassium 4.4 chloride 101 CO2 25 BUN 27 creatinine 1.13 AST 38 ALT 52 troponin level 0.014 Testing in the emergency room revealed, EKG revealed sinus rhythm with oc casional premature ventricular complexes left axis deviation otherwise no acute abnormality, chest x-ray revealed no acute cardiopulmonary process Patient was admitted to medical floor for further evaluation and treatment Past Medical History Past Medical History: Coronary Artery Disease (CAD), COPD, Myocardial Infarction ([place]) Additional Past Medical History / Comment(s): Pt states he has hx of 3 respiratory arrests and was vented, generalized arthritis, Last Myocardial Infarction Date:: History of Any Multi-Drug Resistant Organisms: None Reported Past Surgical History: Adenoidectomy, Heart Catheterization With Stent, Hernia Repair, Joint Replacement, Orthopedic Surgery, Tonsillectomy Additional Past Surgical History / Comment(s): R inguinal hernia repair, L rotator cuff repair, bialteral total knee arthroplasties, R shoulder spur removal, teeth extracted, colonoscopy-normal. third hernia repair, left side Past Anesthesia/Blood Transfusion Reactions: No Reported Reaction Date of Last Stent Placement:: 2018 Past Psychological History: No Psychological Hx Reported Smoking Status: Current some day smoker Past Alcohol Use History: Rare Past Drug Use History: Marijuana - Past Family History Father Family Medical History: Cancer Additional Family Medical History / Comment(s): Father of lung cancer at the age of 62. He was a smoker. Mother Family Medical History: Cancer, Diabetes Mellitus, Hypertension Additional Family Medical History / Comment(s): Mother at age 78 from brainstem cancer. Brother(s) Additional Family Medical History / Comment(s): Patient's 1 brother with history of AAA. Patient has 4 sisters and he does not know any of their medical history. Patient's 1 son and 1 daughter living. He had one daughter that at 7 weeks old from a congenital heart. Medications and Allergies Home Medications Medication Instructions Recorded Confirmed Type Budesonide [Pulmicort] 0.5 mg INHALATION RT-BID 03/03/16 11/04/20 History Aspirin EC [Ecotrin Low Dose] 81 mg PO DAILY 04/01/19 11/04/20 History Atorvastatin [Lipitor] 40 mg PO HS 04/07/19 11/04/20 History Nitroglycerin Sl Tabs [Nitrostat] 0.4 mg SUBLINGUAL Q5M PRN 04/22/20 11/04/20 History Metoprolol Succinate (ER) [Toprol 50 mg PO DAILY 10/30/20 11/04/20 History XL] hydroCHLOROthiazide [Hydrodiuril] 12.5 mg PO DAILY 10/30/20 11/04/20 History Ipratropium-Albuterol Nebulize 3 ml INHALATION RT-Q6H 10/31/20 11/04/20 History [Duoneb 0.5 mg-3 mg/3 ml Soln] Isosorbide Mononitrate ER [Imdur] 60 mg PO DAILY 10/31/20 11/04/20 History Loratadine [Claritin] 10 mg PO DAILY 10/31/20 11/04/20 History Clopidogrel [Plavix] 75 mg PO DAILY #30 tab 11/02/20 11/04/20 Rx Allergies Allergy/AdvReac Type Severity Reaction Status Date / Time levofloxacin [From Levaquin] AdvReac Nausea & Verified 11/04/20 19:05 Vomiting Physical Exam Vitals: Vital Signs Temp Pulse Resp BP Pulse Ox 11/05/20 11:41 98.9 F 87 18 120/84 95 11/05/20 11:33 87 18 120/84 95 11/05/20 10:52 82 16 11/05/20 10:42 80 16 11/05/20 07:54 81 16 11/05/20 07:42 84 18 11/05/20 04:09 65 16 140/50 99 11/04/20 21:32 84 20 120/81 97 11/04/20 18:39 83 20 130/93 94 L 11/04/20 17:30 96 20 163/92 97 11/04/20 17:08 98.9 F 89 24 138/105 96 Intake and Output 11/04/20 11/05/20 11/05/20 22:59 06:59 14:59 Other: Weight 95.254 kg In general patient is alert and oriented x 3 in no distress HEENT head normocephalic and atraumatic Neck is supple no JVD no goiter no lymphadenopathy no carotid bruit Chest examination is clear to auscultation no crackles no wheezing Cardiac exam reveals regular heart sounds S1 and S2 no gallops no murmurs Abdomen is soft nontender no organomegaly with normal bowel sounds Extremity exam reveals no edema no cyanosis or clubbing Neurological examination reveals no gross focal deficits Results CBC & Chem 7: 11/05/20 03:44 11/04/20 17:30 Labs: Abnormal Lab Results - Last 24 Hours (Table) 11/04/20 11/04/20 11/05/20 Range/Units 17:30 17:30 03:44 WBC 11.1 H (3.8-10.6) k/uL Immature Gran # 0.06 H (0.00-0.04) X 10*3/uL BUN 27 H (9-20) mg/dL ALT 52 H (4-49) U/L Assessment and Plan Plan: Episode of chest pain Underlying history of coronary artery disease with recent angioplasty and stent placement to the RCA and known history of intermediate disease involving the mid LAD Underlying history of hypertension Underlying history of hyperlipidemia Known history of chronic tobacco use Underlying history of COPD Underlying history of osteoarthritis with multiple orthopedic surgeries At this time patient is admitted to telemetry floor serial EKG and cardiac enzymes are ordered Home medications reviewed and reordered Cardiology consultation was requested Will follow closely
[2020-11-05] MEDS: MORPHINE SULFATE 4 MG/ML SYRINGE IV PRN ×2 (13:26→17:22)
--- NOTE | 2020-11-05 13:42 | CC ---
CARDIAC CATHETERIZATION REPORT DATE OF SERVICE: 11/04/2020 PERFORMING PHYSICIAN: Idris De Luna MD. PROCEDURE PERFORMED: 1. Selective right and left coronary angiogram. 2. Left heart catheterization. 3. Fractional flow reserve (FFR) of the LAD. INDICATION: This is a 60-year-old gentleman who was admitted to the hospital recently to [facility] with chest discomfort and underwent a heart catheterization, and that revealed severe disease involving the RCA and intermediate disease involving the LAD. At that point, he underwent successful stenting of the RCA, and he was discharged in stable medical condition. He presented back to the emergency department with chest discomfort concerning for angina, and the heart catheterization was advised. After, the patient was seen by Dr. Pandya. APPROACH: Right common femoral artery. COMPLICATION: None. LEVEL OF SEDATION: Moderate with sedation length of 40 minutes. PROCEDURE DESCRIPTION: After obtaining an informed consent, the patient was brought to the cardiac cath lab technologist. Initially, I attempted accessing the right radial artery, but I was unsuccessful. Subsequently, the right common femoral artery was cannulated using micropuncture technique. The micropuncture wire passed easily; then I placed a 6-[place] sheath at the right common femoral artery. I did selective right and left coronary angiograms with JR4 and JL4 catheters. Left heart catheterization was performed using 5-[place] pigtail catheter. After that, I did an FFR of the LAD. Please see a separate paragraph for that. SELECTIVE CORONARY ANGIOGRAM: 1. The RCA is a large caliber vessel. It is a dominant vessel. The proximal RCA appeared to be angiographically normal. The RCA in the mid portion is stented, and the stent is patent. The RCA distally appeared to be angiographically normal. The acute marginal branch, which was closed on the day after the stent, lately it is open again, with good flow in it. 2. The left main is angiographically normal. It bifurcates into left circumflex and LAD. 3. The left circumflex is a large caliber vessel. It is a nondominant vessel. The left circumflex appeared to have mild disease only in the mid portion. 4. The LAD: The proximal LAD appeared to be angiographically normal. The mid LAD has a lesion that appeared to be in the range of 60%. This is by the bifurcation of the first and second diagonal branches. I did FFR of the LAD, and that came in to be nonischemic at 0.83. The LAD distally appeared to be angiographically normal. HEMODYNAMICS: The LVEDP was about 2 to 4 mmHg without significant gradient across the aortic valve. CONCLUSION: 1. Patent stent in the mid right coronary artery and patent acute marginal branch, which was closed after the stent last week. 2. Intermediate lesion involving the mid LAD. FFR of the LAD was performed and came in to be nonischemic at 0.83. 3. Low filling pressure. POSTPROCEDURE MANAGEMENT: 1. Dual anti-platelet therapy. 2. Aggressive cholesterol control. 3. Risk-factor modifications. 4. I will follow up with the patient. MMODL / IJN: [id number] /
[2020-11-05 13:48] LABS: African American GFR (CKD) 95.1 (60.0-200.0); Calcium 9.2 mg/dL (8.7-10.3); Potassium 3.7 mmol/L (3.5-5.5)
[2020-11-05] MEDS ORDERED: ATORVASTATIN 40 MG TAB PO SCH (21:00)
[2020-11-06 06:02] LABS: Basophils # (A) 0.1 k/uL (0-0.2); Basophils % (A) 1 %; Eosinophils # (A) 0.2 k/uL (0-0.7); Eosinophils % (A) 2 %; HCT 41.1 % (39.0-53.0); HGB 14.2 gm/dL (13.0-17.5); Lymphocytes # (A) 2.7 k/uL (1.0-4.8); Lymphocytes % (A) 29 %; MCH 30.9 pg (25.0-35.0); MCHC 34.6 g/dL (31.0-37.0); MCV 89.5 fL (80.0-100.0); Mean Platelet Volume 8.5; Monocytes # (A) 0.6 k/uL (0-1.0); Monocytes % (A) 6 %; Neutrophils # (A) 5.5 k/uL (1.3-7.7); Neutrophils % (A) 60 %; Platelet Count 220 k/uL (150-450); RBC 4.59 m/uL (4.30-5.90); RDW 12.9 % (11.5-15.5); WBC 9.2 k/uL (3.8-10.6)
[2020-11-06 06:26] LABS: ALT 29 U/L (4-49); AST 22 U/L (17-59); African American GFR (CKD) >90 (>60 ml/min/1.73 sqM); Albumin 3.6 g/dL (3.5-5.0); Albumin/Globulin Ratio 1.4; Alkaline Phosphatase 113 U/L (38-126); Anion Gap 6 mmol/L; Blood Urea Nitrogen 20 mg/dL (9-20); Calcium 9.1 mg/dL (8.4-10.2); Carbon Dioxide 26 mmol/L (22-30); Chloride 103 mmol/L (98-107); Globulin 2.5 g/dL; Glucose 99 mg/dL (74-99); Non-African American GFR(CKD) 88 (>60 ml/min/1.73 sqM); Potassium 4.1 mmol/L (3.5-5.1); Sodium 135 mmol/L (137-145); Total Bilirubin 0.3 mg/dL (0.2-1.3); Total Protein 6.1 g/dL (6.3-8.2)
[2020-11-06] MEDS ORDERED: HEPARIN SODIUM,PORCINE 2,500 UNIT in SODIUM CHLORIDE 0.9% 250 ML IRRIGATION PRN (07:00)
[2020-11-06] MEDS ORDERED: HEPARIN SODIUM,PORCINE 10,000 UNIT in SODIUM CHLORIDE 0.9% 1,000 ML IRRIGATION PRN (07:00)
[2020-11-06] MEDS: BUDESONIDE 0.5 MG/2 ML NEBU INHALATION SCH (07:23)
[2020-11-06] MEDS: IPRATROPIUM-ALBUTEROL 3 ML NEB INHALATION SCH ×2 (07:23→10:35)
[2020-11-06 07:42] VITALS: BP 132/78; TEMP 98.2
[2020-11-06] MEDS: METOPROLOL SUCCINATE (ER) 50 MG TAB.ER.24H PO SCH (07:51)
[2020-11-06] MEDS: ASPIRIN 81 MG PO SCH (07:52)
[2020-11-06] MEDS: CLOPIDOGREL 75 MG TAB PO SCH (07:52)
[2020-11-06] MEDS: LORATADINE 10 MG TAB PO SCH (07:52)
[2020-11-06] MEDS: ISOSORBIDE MONONITRATE ER 60 MG TAB.ER.24H PO SCH (07:53)
[2020-11-06] MEDS: hydroCHLOROthiazide 12.5 MG CAP PO SCH (07:53)
--- NOTE | 2020-11-06 11:23 | P.PN ---
Subjective This is a pleasant 60-year-old male past medical history significant for coronary artery disease status post prior PCI in the RCA, hypertension, dysl ipidemia, known intermediate disease involving the LAD, chronic nicotine dependence, COPD. He follows in the office with Dr. De Luna. We have been asked to see in consultation for chest pain. Patient is seen and examined in the emergency department. Patient presented to [facility] earlier this month with chest discomfort and continued to have ongoing chest discomfort. He underwent a heart catheterization at [facility] Dr. De Luna and revealed severe disease involving the mid RCA which seems to be in stent restenosis. Patient was transferred to [facility] for stenting. Patient underwent successful stenting of the mid RCA with Dr. De Luna 11/01/2020. Patient was discharged on 11/02/2020. Patient presents to the emergency department with worsening chest pain. Patient states his chest pain has been worsening since Wednesday. It is exertional. It is radiating to his jaw and back to his neck. He states that before he had a stent chest pain was intermittent and it would come and go. However currently the patient's chest pain is constant. He states his pain is about 2/10 when resting, but with activity it significantly worsens. He has associated shortness of breath and headache. Describes his chest pain as a pressure. Alleviating factors are nitroglycerin and resting. He states he was taking all his medication as prescribed after his stent placement. DIAGNOSTICS EKG reveals sinus rhythm, heart rate 94, T wave inversions in lead III, and aVF. Prior EKGs appear similar. Cardiac catheterization history includes: 12/2018- critical disease in the RCA, intermediate disease in the mid LAD, patient underwent PCI mid RCA 10/31/2020- revealed severe disease involving the mid RCA which seems to be in stent restenosis. Patient underwent PCI mid RCA Most recent echocardiogram 05/01/2019 revealing ejection fraction of 50%, mild tricuspid regurgitation, mild mitral regurgitation Chest xray no acute cardiopulmonary process. Laboratory reviewed, sodium 137, potassium 4.4, BUN 27, serum parental 0.1, troponin negative 3, magnesium 2.2, proBNP 39, WBC 8.4, mean 14.9, platelets 263. Current home cardiac medications include atorvastatin 40 mg daily, Hydrochlorothiazide 12.5 mg daily, nitroglycerin 0.4 mg when necessary, metoprolol succinate 50 mg daily, Imdur 60 mg daily, Plavix 75 mg daily, aspirin 81 mg daily. 11/06/2020: Patient seen and examined at bedside, no acute distress. Patient underwent cardiac catheterization with Dr. De Luna yesterday which revealed patent stent in the mid RCA and patent acute marginal branch, intermediate lesion involving the mid LAD. FFR value was performed and came in to be nonischemic at 0.83. LVEDP was about 24 mmHg without significant gradient across the aortic valve. Medical therapy is advised. Blood pressure 132/78, heart rate 60, afebrile, maintaining saturations on room air. Laboratory data reviewed CBC unremarkable, sodium 135, potassium 4.1, serum creatinine 0.95, BUN 20. PHYSICAL EXAMINATION CONSTITUTIONAL: No apparent distress. HEENT: Neck Supple No JVD. CHEST EXAMINATION: Lungs are clear to auscultation. No chest wall tenderness is noted on palpation or with deep breathing. HEART EXAMINATION: Regular rate and rhythm. S1, S2 heard. ABDOMEN: Soft, nontender. Positive bowel sounds. EXTREMITIES: 2+ peripheral pulses, no lower extremity edema and no calf tenderness. SKIN: Right radial artery cath site clean, dry, intact, strong 2+ pulses. NEUROLOGIC EXAMINATION: Patient is awake, alert and oriented x3. ASSESSMENT Chest pain Coronary artery disease status post prior PCI in the RCA, and recent PCI mid RCA 11/01/20, known intermediate disease involving the mid LAD Hypertension Dyslipidemia Chronic nicotine dependence PLAN From cardiology perspective, patient stable to be discharged home. Patient follow up with Dr. De Luna in the outpatient office. Continue aspirin, statin, Plavix, hydrochlorothiazide, metoprolol succinate and imdur Nurse Practitioner note has been reviewed, I agree with a documented findings and plan of care. Patient was seen and examined. Objective - Vital Signs Vital signs: Vital Signs Temp 98.2 F 11/06/20 07:00 Pulse 72 11/06/20 10:45 Resp 18 11/06/20 07:00 BP 132/78 11/06/20 07:00 Pulse Ox 99 11/06/20 07:00 Intake & Output 11/05/20 11/06/20 11/06/20 18:59 06:59 18:59 Intake Total 731 600 Output Total 400 Balance 731 -400 600 Intake: IV 181 Oral 550 600 Output: Urine 400 Other: Voiding Method Toilet Urinal # Voids 0 0 - Labs CBC & Chem 7: 11/06/20 04:38 11/06/20 04:38 Labs: Abnormal Lab Results - Last 24 Hours (Table) 11/05/20 11/06/20 Range/Units 03:44 04:38 Sodium 135 L (137-145) mmol/L Anion Gap 13.00 H (4.00-12.00) mmol/L BUN/Creatinine Ratio 24.00 H (12.00-20.00) Ratio Glucose 120 H (70-110) mg/dL Total Protein 6.1 L (6.3-8.2) g/dL
--- NOTE | 2020-11-06 11:35 | P.DS ---
Providers Date of admission: 11/04/20 18:27 Expected date of discharge: 11/06/20 Attending physician: Alvin Frazier Consults: 11/04/20 18:26 Consult Physician Urgent Consulting Provider: [facility] Consult Reason/Comments: acute chest pain, recent stent placement Do you want consulting provider notified?: Yes Primary care physician: [facility] Course: Discharge diagnosis Episode of chest pain Underlying history of coronary artery disease with recent angioplasty and stent placement to the RCA and known history of intermediate disease involving the mid LAD Underlying history of hypertension Underlying history of hyperlipidemia Known history of chronic tobacco use Underlying history of COPD Underlying history of osteoarthritis with multiple orthopedic surgeries hospital course Marcel Jo, is a 60 year old male who presented to [facility] emergency room with a chief complaint of chest pain, patient describes a substernal pain radiating to the jaw that started when patient woke up this morning, patient was recently admitted to [facility] and underwent angioplasty and stent placement to the RCA. He was evaluated in the emergency room vital examination on presentation revealed a temperature of 98.9 pulse 89 respiration 24 blood pressure 138/105 pulse ox 96% on room air Laboratory data reveals a white blood count of 11.1 hemoglobin 16.2 platelet count 277 sodium 137 potassium 4.4 chloride 101 CO2 25 BUN 27 creatinine 1.13 AST 38 ALT 52 troponin level 0.014 Testing in the emergency room revealed, EKG revealed sinus rhythm with occasional premature ventricular complexes left axis deviation otherwise no acute abnormality, chest x-ray revealed no acute cardiopulmonary process Patient was admitted to medical floor for further evaluation and treatment On 11/06/2020 patient is alert and oriented 3. Patient underwent cardiac catheterization on 11/05/2020 which revealed patent stent in the mid RCA and patent acute marginal branch intermediate lesion involving the mid LAD. Per cardiology continue aspirin and statin Plavix hydrochlorothiazide Metroprolol and Imdur patient to follow-up with cardiology services outpatient. Cleared for discharge from cardiology standpoint. Patient denies any further episodes of chest pain. Patient denies nausea vomiting and diarrhea. Patient denies any urinary burning or frequency Patient Condition at Discharge: Stable Plan - Discharge Summary New Discharge Prescriptions: Continue Budesonide [Pulmicort] 0.5 mg INHALATION RT-BID Aspirin EC [Ecotrin Low Dose] 81 mg PO DAILY Atorvastatin [Lipitor] 40 mg PO HS Nitroglycerin Sl Tabs [Nitrostat] 0.4 mg SUBLINGUAL Q5M PRN PRN Reason: Chest Pain Metoprolol Succinate (ER) [Toprol XL] 50 mg PO DAILY Isosorbide Mononitrate ER [Imdur] 60 mg PO DAILY Loratadine [Claritin] 10 mg PO DAILY Clopidogrel [Plavix] 75 mg PO DAILY #30 tab hydroCHLOROthiazide [Hydrodiuril] 12.5 mg PO DAILY Ipratropium-Albuterol Nebulize [Duoneb 0.5 mg-3 mg/3 ml Soln] 3 ml INHALATION RT-Q6H Discharge Medication List Budesonide [Pulmicort] 0.5 mg INHALATION RT-BID 03/03/16 [History] Aspirin EC [Ecotrin Low Dose] 81 mg PO DAILY 04/01/19 [History] Atorvastatin [Lipitor] 40 mg PO HS 04/07/19 [History] Nitroglycerin Sl Tabs [Nitrostat] 0.4 mg SUBLINGUAL Q5M PRN 04/22/20 [History] Metoprolol Succinate (ER) [Toprol XL] 50 mg PO DAILY 10/30/20 [History] hydroCHLOROthiazide [Hydrodiuril] 12.5 mg PO DAILY 10/30/20 [History] Ipratropium-Albuterol Nebulize [Duoneb 0.5 mg-3 mg/3 ml Soln] 3 ml INHALATION RT-Q6H 10/31/20 [History] Isosorbide Mononitrate ER [Imdur] 60 mg PO DAILY 10/31/20 [History] Loratadine [Claritin] 10 mg PO DAILY 10/31/20 [History] Clopidogrel [Plavix] 75 mg PO DAILY #30 tab 11/02/20 [Rx] Follow up Appointment(s)/Referral(s): Lora Cobb MD [Primary Care Provider] - 1-2 days Idris De Luna MD [Family Provider] - 1 Week Activity/Diet/Wound Care/Special Instructions: activity as tolerated diet heart healthy
[2020-11-06 11:37] VITALS: PULSE 68
[2020-11-06 11:40] VITALS: RESP 12
== END 2020-11-06 12:42 | disposition home or self-care (01) ==
LOC: EC 17:01 → 6NMEDSUR 18:27
PROVIDERS: ADMIT Internal Medicine; ATTEND Internal Medicine
DX: R07.2 Precordial pain (principal); I25.10 Atherosclerotic heart disease of native coronary artery without angina pectoris; F17.200 Nicotine dependence, unspecified, uncomplicated; E78.5 Hyperlipidemia, unspecified; I10 Essential (primary) hypertension; I25.2 Old myocardial infarction; R51.9 Headache, unspecified; M79.602 Pain in left arm; I49.3 Ventricular premature depolarization; J44.9 Chronic obstructive pulmonary disease, unspecified; M13.0 Polyarthritis, unspecified; K40.90 Unilateral inguinal hernia, without obstruction or gangrene, not specified as recurrent; Z79.82 Long term (current) use of aspirin; Z79.02 Long term (current) use of antithrombotics/antiplatelets; Z79.899 Other long term (current) drug therapy; Z80.1 Family history of malignant neoplasm of trachea, bronchus and lung; Z80.8 Family history of malignant neoplasm of other organs or systems; Z82.49 Family history of ischemic heart disease and other diseases of the circulatory system; Z83.3 Family history of diabetes mellitus
CPT/HCPCS: 93458 ×2; 96361; 96376; 96374; 99285; 36415; 94640 ×4; 93005; 93571; 83880; 80053 ×2; 80048; 83735; 84484; 85025 ×3; 85610; 85730; 71046; G0378 ×3; C1887; C1894; C1769 ×2; C1760; J2250; J2270 ×2; J2001; J3010; J1644; J0153; Q9967

== ENCOUNTER 2020-11-08 10:05 | Emergency (ER) | payer MEDICARE, OTHER ==
[2020-11-08 10:19] VITALS: TEMP 98.2
--- NOTE | 2020-11-08 10:38 | ED ---
General Adult HPI - General Chief complaint: Extremity Injury, Lower Stated complaint: parker pain/post cath Time Seen by Provider: 11/08/20 10:18 Source: patient, RN/MD (Case discussed with Dr. De Luna) Mode of arrival: ambulatory Limitations: no limitations - History of Present Illness Initial comments: Patient is a pleasant 60-year-old male presenting to the emergency department with right groin pain. He should and did have recent heart catheterization to the right radial. Patient had recent second catheterization right groin. Patient has had some discomfort and ecchymosis the past couple of days. Patient did see Dr. De Luna in the office who recommended patient come to the emergency department for ultrasound for possible pseudoaneurysm. No lower leg swelling or calf pain. No history of similar symptoms previously. Comfort increases with touch. - Related Data Home Medications Medication Instructions Recorded Confirmed Budesonide [Pulmicort] 0.5 mg INHALATION RT-BID 03/03/16 11/04/20 Aspirin EC [Ecotrin Low Dose] 81 mg PO DAILY 04/01/19 11/04/20 Atorvastatin [Lipitor] 40 mg PO HS 04/07/19 11/04/20 Nitroglycerin Sl Tabs [Nitrostat] 0.4 mg SUBLINGUAL Q5M PRN 04/22/20 11/04/20 Metoprolol Succinate (ER) [Toprol 50 mg PO DAILY 10/30/20 11/04/20 XL] hydroCHLOROthiazide [Hydrodiuril] 12.5 mg PO DAILY 10/30/20 11/04/20 Ipratropium-Albuterol Nebulize 3 ml INHALATION RT-Q6H 10/31/20 11/04/20 [Duoneb 0.5 mg-3 mg/3 ml Soln] Isosorbide Mononitrate ER [Imdur] 60 mg PO DAILY 10/31/20 11/04/20 Loratadine [Claritin] 10 mg PO DAILY 10/31/20 11/04/20 Previous Rx's Medication Instructions Recorded Clopidogrel [Plavix] 75 mg PO DAILY #30 tab 11/02/20 Allergies Allergy/AdvReac Type Severity Reaction Status Date / Time levofloxacin [From Levaquin] AdvReac Nausea & Verified 11/08/20 10:19 Vomiting Review of Systems ROS Statement: Those systems with pertinent positive or pertinent negative responses have been documented in the HPI. ROS Other: All systems not noted in ROS Statement are negative. Constitutional: Denies: fever Eyes: Denies: eye pain ENT: Denies: ear pain Respiratory: Denies: cough Cardiovascular: Denies: palpitations Endocrine: Denies: fatigue Gastrointestinal: Denies: abdominal pain Genitourinary: Denies: dysuria Musculoskeletal: Reports: as per HPI. Denies: back pain Skin: Reports: as per HPI Past Medical History Past Medical History: Coronary Artery Disease (CAD), COPD, Hyperlipidemia, Hypertension, Myocardial Infarction ([place]) Additional Past Medical History / Comment(s): Pt states he has hx of 3 respiratory arrests and was vented, generalized arthritis, Last Myocardial Infarction Date:: History of Any Multi-Drug Resistant Organisms: None Reported Past Surgical History: Adenoidectomy, Heart Catheterization With Stent, Hernia Repair, Joint Replacement, Orthopedic Surgery, Tonsillectomy Additional Past Surgical History / Comment(s): R inguinal hernia repair, L rotator cuff repair, bialteral total knee arthroplasties, R shoulder spur removal, teeth extracted, colonoscopy-normal. third hernia repair, left side Past Anesthesia/Blood Transfusion Reactions: No Reported Reaction Date of Last Stent Placement:: 2018 Past Psychological History: No Psychological Hx Reported Smoking Status: Never smoker Past Alcohol Use History: Rare Past Drug Use History: Marijuana - Past Family History Father Family Medical History: Cancer Additional Family Medical History / Comment(s): Father of lung cancer at the age of 62. He was a smoker. Mother Family Medical History: Cancer, Diabetes Mellitus, Hypertension Additional Family Medical History / Comment(s): Mother at age 78 from brainstem cancer. Brother(s) Additional Family Medical History / Comment(s): Patient's 1 brother with history of AAA. Patient has 4 sisters and he does not know any of their medical history. Patient's 1 son and 1 daughter living. He had one daughter that at 7 weeks old from a congenital heart. General Exam Limitations: no limitations General appearance: alert, in no apparent distress Head exam: Present: normocephalic Eye exam: Present: normal appearance Respiratory exam: Present: normal lung sounds bilaterally Cardiovascular Exam: Present: regular rate, normal rhythm Expanded Peripheral pulses: 2+: Femoral (R), Dorsalis Pedis (R), Dorsalis Pedis (L) GI/Abdominal exam: Present: soft. Absent: distended, tenderness Extremities exam: Present: other (Right inguinal region with ecchymosis, minimal swelling and mild tenderness on exam. Femoral pulses present) Neurological exam: Present: alert. Absent: motor sensory deficit Psychiatric exam: Present: normal affect, normal mood Skin exam: Present: other (Right inguinal region ecchymosis) Course Vital Signs 11/08/20 10:16 Temperature 98.2 F Pulse Rate 93 Respiratory 18 Rate Blood Pressure 130/89 O2 Sat by Pulse 98 Oximetry Medical Decision Making - Medical Decision Making Please follow-up with program manager slp and primary care physician in the next couple of days for recheck. Return for increased pain or swelling, difficulty breathing, worsening or changing symptoms or other concerns. - Radiology Data Radiology results: report reviewed (Ultrasound negative for pseudoaneurysm) Disposition Clinical Impression: Hematoma Disposition: HOME SELF-CARE Condition: Stable Instructions (If sedation given, give patient instructions): Hematoma (ED) Additional Instructions: Ice to affected area. Limit exertion. Return for increased pain, swelling, worsening or changing symptoms or other concerns. Is patient prescribed a controlled substance at d/c from ED?: No Referrals: Idris De Luna MD [STAFF PHYSICIAN] - 1-2 days Eduin Chirinos MD [REFERRING] - 1-2 days Time of Disposition: 11:14
--- NOTE | 2020-11-08 11:03 | US ---
EXAMINATION TYPE: US lower ext pseudo artery RT DATE OF EXAM: 11/08/2020 COMPARISON: NONE CLINICAL HISTORY: evaluate for pseudoaneurysm. Rt heart cath in groin 3 days prior, bruising and pain ful groin EXAM PERFORMED: Grayscale and color Doppler duplex imaging performed of the groin, post cardiac cristina ter to assess for pseudoaneurysm. SIDE PERFORMED: RIGHT Color and Waveform Doppler performed to assess for the presence of pseudoaneurysm; Is there ultrasound evidence of a pseudoaneurysm: NO Is there evidence of AV shunting: NO Is there a fluid collection present: NO IMPRESSION: No diagnostic evidence of pseudoaneurysm
[2020-11-08 11:36] VITALS: BP 128/78; PULSE 78; RESP 16
== END 2020-11-08 11:34 | disposition home or self-care (01) ==
LOC: EC 10:05
DX: L76.32 Postprocedural hematoma of skin and subcutaneous tissue following other procedure (principal); E78.5 Hyperlipidemia, unspecified; I10 Essential (primary) hypertension; I25.10 Atherosclerotic heart disease of native coronary artery without angina pectoris; I25.2 Old myocardial infarction; J44.9 Chronic obstructive pulmonary disease, unspecified; Z79.51 Long term (current) use of inhaled steroids; Z79.82 Long term (current) use of aspirin; Z79.899 Other long term (current) drug therapy; Z88.1 Allergy status to other antibiotic agents
CPT/HCPCS: 93975; 99284

== ENCOUNTER 2020-11-23 08:24 | Inpatient (IN) | payer MEDICARE, OTHER ==
[2020-11-23] MEDS ORDERED: methylPREDNISolone SOD SUCCI 125 MG/2 ML VIAL IV STA (08:41)
[2020-11-23] MEDS ORDERED: IPRATROPIUM 0.5 MG/2.5 ML NEBU INHALATION STA (08:41)
[2020-11-23] MEDS ORDERED: ALBUTEROL NEBULIZED 2.5 MG/3 ML INHALATION STA (08:41)
[2020-11-23 09:07] LABS: Basophils # (A) 0.1 k/uL (0-0.2); Basophils % (A) 1 %; Eosinophils # (A) 0.2 k/uL (0-0.7); Eosinophils % (A) 2 %; HGB 15.2 gm/dL (13.0-17.5); Lymphocytes # (A) 3.4 k/uL (1.0-4.8); Lymphocytes % (A) 31 %; MCH 30.9 pg (25.0-35.0); MCHC 34.5 g/dL (31.0-37.0); MCV 89.3 fL (80.0-100.0); Mean Platelet Volume 7.6; Monocytes # (A) 0.5 k/uL (0-1.0); Monocytes % (A) 4 %; Neutrophils # (A) 6.7 k/uL (1.3-7.7); Neutrophils % (A) 61 %; Platelet Count 234 k/uL (150-450); RBC 4.92 m/uL (4.30-5.90); RDW 13.8 % (11.5-15.5); WBC 11.1 k/uL (3.8-10.6)
[2020-11-23 09:14] LABS: ALT 20 U/L (4-49); AST 22 U/L (17-59); African American GFR (CKD) >90 (>60 ml/min/1.73 sqM); Albumin 4.2 g/dL (3.5-5.0); Alkaline Phosphatase 96 U/L (38-126); Anion Gap 10 mmol/L; Blood Urea Nitrogen 17 mg/dL (9-20); Calcium 9.7 mg/dL (8.4-10.2); Carbon Dioxide 22 mmol/L (22-30); Chloride 104 mmol/L (98-107); Glucose 107 mg/dL (74-99); Non-African American GFR(CKD) >90 (>60 ml/min/1.73 sqM); Potassium 4.4 mmol/L (3.5-5.1); Sodium 136 mmol/L (137-145); Total Bilirubin 0.9 mg/dL (0.2-1.3); Total Protein 6.7 g/dL (6.3-8.2)
--- NOTE | 2020-11-23 09:15 | ED ---
General Adult HPI - General Chief complaint: Shortness of Breath Stated complaint: COPD, ELISEO Time Seen by Provider: 11/23/20 08:30 Source: patient, RN notes reviewed, old records reviewed Mode of arrival: ambulatory Limitations: no limitations - History of Present Illness Initial comments: This a 60-year-old male who presents to the emergency department with past medical history significant for COPD. Patient comes in stating last few days she's had more more difficult to breathing especially as the weather gets warmer. Patient denies any fever chills or cough per patient denies chest pain dates he feels typical of his COPD per patient states she's quit smoking for one month. Patient denies any abdominal pain patient denies nausea vomiting lito rrhea patient denies headache patient denies numbness weakness. - Related Data Home Medications Medication Instructions Recorded Confirmed Budesonide [Pulmicort] 0.5 mg INHALATION RT-BID 03/03/16 11/23/20 Aspirin EC [Ecotrin Low Dose] 81 mg PO DAILY 04/01/19 11/23/20 Atorvastatin [Lipitor] 40 mg PO HS 04/07/19 11/23/20 Nitroglycerin Sl Tabs [Nitrostat] 0.4 mg SUBLINGUAL Q5M PRN 04/22/20 11/23/20 Metoprolol Succinate (ER) [Toprol 50 mg PO DAILY 10/30/20 11/23/20 XL] hydroCHLOROthiazide [Hydrodiuril] 12.5 mg PO DAILY 10/30/20 11/23/20 Ipratropium-Albuterol Nebulize 3 ml INHALATION RT-Q6H 10/31/20 11/23/20 [Duoneb 0.5 mg-3 mg/3 ml Soln] Isosorbide Mononitrate ER [Imdur] 60 mg PO DAILY 10/31/20 11/23/20 Montelukast [Singulair] 10 mg PO HS 11/23/20 11/23/20 Previous Rx's Medication Instructions Recorded Clopidogrel [Plavix] 75 mg PO DAILY #30 tab 11/02/20 Allergies Allergy/AdvReac Type Severity Reaction Status Date / Time levofloxacin [From Levaquin] AdvReac Nausea & Verified 11/23/20 09:40 Vomiting Review of Systems ROS Statement: Those systems with pertinent positive or pertinent negative responses have been documented in the HPI. ROS Other: All systems not noted in ROS Statement are negative. Past Medical History Past Medical History: Coronary Artery Disease (CAD), COPD, Hyperlipidemia, Hypertension, Myocardial Infarction ([place]) Additional Past Medical History / Comment(s): Pt states he has hx of 3 respiratory arrests and was vented, generalized arthritis, Last Myocardial Infarction Date:: History of Any Multi-Drug Resistant Organisms: None Reported Past Surgical History: Adenoidectomy, Heart Catheterization With Stent, Hernia Repair, Joint Replacement, Orthopedic Surgery, Tonsillectomy Additional Past Surgical History / Comment(s): R inguinal hernia repair, L rotator cuff repair, bialteral total knee arthroplasties, R shoulder spur removal, teeth extracted, colonoscopy-normal. third hernia repair, left side Past Anesthesia/Blood Transfusion Reactions: No Reported Reaction Date of Last Stent Placement:: 2018 Past Psychological History: No Psychological Hx Reported Smoking Status: Never smoker Past Alcohol Use History: None Reported Past Drug Use History: None Reported - Past Family History Father Family Medical History: Cancer Additional Family Medical History / Comment(s): Father of lung cancer at the age of 62. He was a smoker. Mother Family Medical History: Cancer, Diabetes Mellitus, Hypertension Additional Family Medical History / Comment(s): Mother at age 78 from brainstem cancer. Brother(s) Additional Family Medical History / Comment(s): Patient's 1 brother with history of AAA. Patient has 4 sisters and he does not know any of their medical history. Patient's 1 son and 1 daughter living. He had one daughter that at 7 weeks old from a congenital heart. General Exam - General Exam Comments Initial Comments: GENERAL: Patient is well-developed and well-nourished. Patient is nontoxic and well- hydrated and is in mild distress. ENT: Neck is soft and supple. No significant lymphadenopathy is noted. Oropharynx is clear. Moist mucous membranes. Neck has full range of motion without eliciting any pain. EYES: The sclera were anicteric and conjunctiva were pink and moist. Extraocular movements were intact and pupils were equal round and reactive to light. Eyelids were unremarkable. PULMONARY: Patient has expiratory wheezing diffusely and decreased breath sounds. CARDIOVASCULAR: There is a regular rate and rhythm without any murmurs gallops or rubs. ABDOMEN: Soft and nontender with normal bowel sounds. SKIN: Skin is clear with no lesions or rashes and otherwise unremarkable. NEUROLOGIC: Patient is alert and oriented x3. Cranial nerves II through XII are grossly intact. Motor and sensory are also intact. Normal speech, volume and content. Symmetrical smile. MUSCULOSKELETAL: Normal extremities with adequate strength and full range of motion. No lower extremity swelling or edema. No calf tenderness. LYMPHATICS: No significant lymphadenopathy is noted PSYCHIATRIC: Normal psychiatric evaluation. Limitations: no limitations Course Vital Signs 11/23/20 11/23/20 11/23/20 08:28 08:58 09:19 Temperature 97.6 F Pulse Rate 69 71 72 Respiratory 24 Rate Blood Pressure 122/78 O2 Sat by Pulse 96 Oximetry Medical Decision Making - Medical Decision Making EKG shows normal sinus rhythm at 65 bpm [place] interval is 160 QRS is 90 QT interval 390 QTC is 45 per patient's EKG shows no ST segment elevation or depression Patient received multiple breathing treatments in the emergency department as well as steroids. I will back and examined the patient and he continued to wheeze and have significantly decreased breath sounds. Chest x-ray shows no acute abnormality. I spoke with Dr. Flores he agreed to admit the patient admitted the patient wrote admitting orders. - Lab Data Result diagrams: 11/23/20 08:50 11/23/20 08:50 Lab Results 11/23/20 11/23/20 11/23/20 Range/Units 08:50 08:50 08:50 WBC 11.1 H (3.8-10.6) k/uL RBC 4.92 (4.30-5.90) m/uL Hgb 15.2 (13.0-17.5) gm/dL Hct 44.0 (39.0-53.0) % MCV 89.3 (80.0-100.0) fL MCH 30.9 (25.0-35.0) pg MCHC 34.5 (31.0-37.0) g/dL RDW 13.8 (11.5-15.5) % Plt Count 234 (150-450) k/uL MPV 7.6 Neutrophils % 61 % Lymphocytes % 31 % Monocytes % 4 % Eosinophils % 2 % Basophils % 1 % Neutrophils # 6.7 (1.3-7.7) k/uL Lymphocytes # 3.4 (1.0-4.8) k/uL Monocytes # 0.5 (0-1.0) k/uL Eosinophils # 0.2 (0-0.7) k/uL Basophils # 0.1 (0-0.2) k/uL PT 9.9 (9.0-12.0) sec INR 0.9 (<1.2) APTT 18.6 L (22.0-30.0) sec Sodium 136 L (137-145) mmol/L Potassium 4.4 (3.5-5.1) mmol/L Chloride 104 (98-107) mmol/L Carbon Dioxide 22 (22-30) mmol/L Anion Gap 10 mmol/L BUN 17 (9-20) mg/dL Creatinine 0.76 (0.66-1.25) mg/dL Est GFR (CKD-EPI)AfAm >90 (>60 ml/min/1.73 sqM) Est GFR (CKD-EPI)NonAf >90 (>60 ml/min/1.73 sqM) Glucose 107 H (74-99) mg/dL Plasma Lactic Acid Rito (0.7-2.0) mmol/L Calcium 9.7 (8.4-10.2) mg/dL Magnesium 2.0 (1.6-2.3) mg/dL Total Bilirubin 0.9 (0.2-1.3) mg/dL AST 22 (17-59) U/L ALT 20 (4-49) U/L Alkaline Phosphatase 96 (38-126) U/L Troponin I (0.000-0.034) ng/mL Total Protein 6.7 (6.3-8.2) g/dL Albumin 4.2 (3.5-5.0) g/dL 11/23/20 11/23/20 Range/Units 08:50 08:50 WBC (3.8-10.6) k/uL RBC (4.30-5.90) m/uL Hgb (13.0-17.5) gm/dL Hct (39.0-53.0) % MCV (80.0-100.0) fL MCH (25.0-35.0) pg MCHC (31.0-37.0) g/dL RDW (11.5-15.5) % Plt Count (150-450) k/uL MPV Neutrophils % % Lymphocytes % % Monocytes % % Eosinophils % % Basophils % % Neutrophils # (1.3-7.7) k/uL Lymphocytes # (1.0-4.8) k/uL Monocytes # (0-1.0) k/uL Eosinophils # (0-0.7) k/uL Basophils # (0-0.2) k/uL PT (9.0-12.0) sec INR (<1.2) APTT (22.0-30.0) sec Sodium (137-145) mmol/L Potassium (3.5-5.1) mmol/L Chloride (98-107) mmol/L Carbon Dioxide (22-30) mmol/L Anion Gap mmol/L BUN (9-20) mg/dL Creatinine (0.66-1.25) mg/dL Est GFR (CKD-EPI)AfAm (>60 ml/min/1.73 sqM) Est GFR (CKD-EPI)NonAf (>60 ml/min/1.73 sqM) Glucose (74-99) mg/dL Plasma Lactic Acid Rito 1.5 (0.7-2.0) mmol/L Calcium (8.4-10.2) mg/dL Magnesium (1.6-2.3) mg/dL Total Bilirubin (0.2-1.3) mg/dL AST (17-59) U/L ALT (4-49) U/L Alkaline Phosphatase (38-126) U/L Troponin I <0.012 (0.000-0.034) ng/mL Total Protein (6.3-8.2) g/dL Albumin (3.5-5.0) g/dL Disposition Clinical Impression: Acute exacerbation of chronic obstructive pulmonary disease Disposition: ADMITTED IP TO THIS HOSP Referrals: None,Stated [Primary Care Provider] - 1-2 days Time of Disposition: 10:42
[2020-11-23 09:26] LABS: INR 0.9 (<1.2); Prothrombin Time 9.9 sec (9.0-12.0)
[2020-11-23 09:40] LABS: Partial Thromboplastin Time 18.6 sec (22.0-30.0)
--- NOTE | 2020-11-23 09:49 | XR ---
EXAMINATION TYPE: XR chest 2V DATE OF EXAM: 11/23/2020 COMPARISON: Chest x-ray 11/04/2020 HISTORY: Difficulty breathing TECHNIQUE: Frontal and lateral views of the chest are obtained. FINDINGS: There is no focal air space opacity, pleural effusion, or pneumothorax seen. The cardiac silhouette size is within normal limits. There are overlying leads. Postop change noted to the left shoulder. The osseous structures are intact. IMPRESSION: No acute cardiopulmonary process.
[2020-11-23] MEDS: methylPREDNISolone SOD SUCCI 125 MG/2 ML VIAL IV SCH ×2 (11:31→18:01)
[2020-11-23] MEDS: IPRATROPIUM-ALBUTEROL 3 ML NEB INHALATION PRN ×3 (11:35→19:40)
[2020-11-23] MEDS ORDERED: NITROGLYCERIN SL TABS 0.4 MG TAB SUBLINGUAL PRN (12:35)
[2020-11-23] MEDS: BUDESONIDE 0.5 MG/2 ML NEBU INHALATION SCH (19:40)
[2020-11-23] MEDS: MONTELUKAST 10 MG TAB PO SCH (20:19)
[2020-11-23] MEDS: ATORVASTATIN 40 MG TAB PO SCH (20:19)
[2020-11-24] MEDS: methylPREDNISolone SOD SUCCI 125 MG/2 ML VIAL IV SCH ×5 (00:21→23:47)
[2020-11-24] MEDS: IPRATROPIUM-ALBUTEROL 3 ML NEB INHALATION PRN ×5 (00:35→20:15)
--- NOTE | 2020-11-24 01:02 | P.CNPUL ---
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 Altogether a month month ago, on specific questioning denies any headache or seizure-like activity no loss of consciousness, denies any chest pain however chest tightness there, ongoing cough but no sputum production denies any bowel or bladder related problem Review of Systems All systems: negative Past Medical History Past Medical History: Coronary Artery Disease (CAD), COPD, Hyperlipidemia, Hypertension, Myocardial Infarction ([place]) Additional Past Medical History / Comment(s): Pt states he has hx of 3 respiratory arrests and was vented, generalized arthritis, Last Myocardial Infarction Date:: History of Any Multi-Drug Resistant Organisms: None Reported Past Surgical History: Adenoidectomy, Heart Catheterization With Stent, Hernia Repair, Joint Replacement, Orthopedic Surgery, Tonsillectomy Additional Past Surgical History / Comment(s): R inguinal hernia repair, L rotator cuff repair, bialteral total knee arthroplasties, R shoulder spur rem oval, teeth extracted, colonoscopy-normal. third hernia repair, left side Past Anesthesia/Blood Transfusion Reactions: No Reported Reaction Date of Last Stent Placement:: 2018 Past Psychological History: No Psychological Hx Reported Additional Psychological History / Comment(s): He uses no assistive devices. Smoking Status: Never smoker Past Alcohol Use History: None Reported Additional Past Alcohol Use History / Comment(s): patient quit smoking in 12/2018, but has restarted. He uses marijuana (edilbel) daily for pain. He is recovering alcoholic and he drinks alcohol rarely at this point. He has history of illicit drug use including Phen-Fen a means, LSD, cocaine, heroin and quit all of this 9 years ago. 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 Past Drug Use History: None Reported Additional Drug Use History / Comment(s): He states in the past he has used marijuana, heroin, crystal meth, cocaine and crack but none of those drugs for about 9 yrs. - Past Family History Father Family Medical History: Cancer Additional Family Medical History / Comment(s): Father of lung cancer at the age of 62. He was a smoker. Mother Family Medical History: Cancer, Diabetes Mellitus, Hypertension Additional Family Medical History / Comment(s): Mother at age 78 from brainstem cancer. Brother(s) Additional Family Medical History / Comment(s): Patient's 1 brother with history of AAA. Patient has 4 sisters and he does not know any of their medical history. Patient's 1 son and 1 daughter living. He had one daughter that at 7 weeks old from a congenital heart. Medications and Allergies Home Medications Medication Instructions Recorded Confirmed Type Budesonide [Pulmicort] 0.5 mg INHALATION RT-BID 03/03/16 11/23/20 History Aspirin EC [Ecotrin Low Dose] 81 mg PO DAILY 04/01/19 11/23/20 History Atorvastatin [Lipitor] 40 mg PO HS 04/07/19 11/23/20 History Nitroglycerin Sl Tabs [Nitrostat] 0.4 mg SUBLINGUAL Q5M PRN 04/22/20 11/23/20 History Metoprolol Succinate (ER) [Toprol 50 mg PO DAILY 10/30/20 11/23/20 History XL] hydroCHLOROthiazide [Hydrodiuril] 12.5 mg PO DAILY 10/30/20 11/23/20 History Ipratropium-Albuterol Nebulize 3 ml INHALATION RT-Q6H 10/31/20 11/23/20 History [Duoneb 0.5 mg-3 mg/3 ml Soln] Isosorbide Mononitrate ER [Imdur] 60 mg PO DAILY 10/31/20 11/23/20 History Clopidogrel [Plavix] 75 mg PO DAILY #30 tab 11/02/20 11/23/20 Rx Montelukast [Singulair] 10 mg PO HS 11/23/20 11/23/20 History Allergies Allergy/AdvReac Type Severity Reaction Status Date / Time levofloxacin [From Levaquin] AdvReac Nausea & Verified 11/23/20 09:40 Vomiting Physical Exam Vitals: Vital Signs Temp Pulse Pulse Resp BP BP Pulse Ox 11/24/20 00:43 112 H 11/24/20 00:36 114 H 11/23/20 20:00 98.0 F 114 H 17 123/75 95 11/23/20 19:54 100 11/23/20 19:43 101 H 11/23/20 16:07 101 H 11/23/20 15:56 104 H 11/23/20 14:06 97.6 F 104 H 18 123/79 96 11/23/20 13:52 98.4 F 106 H 22 135/82 97 11/23/20 12:00 78 16 96 11/23/20 11:44 87 11/23/20 11:36 87 11/23/20 11:31 91 22 143/96 98 11/23/20 09:19 72 11/23/20 08:58 71 11/23/20 08:28 97.6 F 69 24 122/78 96 Intake and Output 11/23/20 11/23/20 11/24/20 14:59 22:59 06:59 Other: Voiding Method Toilet Urinal # Voids 0 1 Weight 95.254 kg - Constitutional General appearance: average body habitus, cooperative, disheveled - EENT Eyes: EOMI, PERRLA ENT: normal oropharynx Ears: bilateral: normal - Neck Neck: normal ROM Carotids: bilateral: upstroke normal Thyroid: bilateral: normal size - Respiratory Respiratory: bilateral: diminished, rhonchi, wheezing, negative: CTA - Cardiovascular Rhythm: regular Heart sounds: normal: S1, S2 - Gastrointestinal General gastrointestinal: normal bowel sounds, soft - Integumentary Integumentary: normal turgor - Neurologic Neurologic: CNII-XII intact - Musculoskeletal Musculoskeletal: gait normal, generalized weakness, strength equal bilaterally - Psychiatric Psychiatric: A&O x's 3, appropriate affect, intact judgment & insight Results - Laboratory Findings CBC and BMP: 11/23/20 08:50 11/23/20 08:50 PT/INR, D-dimer PT 9.9 sec (9.0-12.0) 11/23/20 08:50 INR 0.9 (<1.2) 11/23/20 08:50 Abnormal lab findings: Abnormal Labs 11/23/20 11/23/2021 08:50 08:50 08:50 WBC 11.1 H APTT 18.6 L Sodium 136 L Glucose 107 H - Diagnostic Findings Chest x-ray: report reviewed, image reviewed (No acute processes identified) Assessment and Plan Assessment: Acute COPD exacerbation Coronary artery disease and history of stent placement Chronic systolic heart failure Dyslipidemia Hypertension hypertensive cardiovascular disease Component of chronic asthma and asthmatic bronchitis Plan: Continue IV steroids Breathing treatments Home medications including beta octaviano Follow clinical course closely patient is not ready for discharge Time with Patient: Greater than 30
[2020-11-24] MEDS ORDERED: ACETAMINOPHEN TAB 325 MG TAB PO PRN (04:45)
--- NOTE | 2020-11-24 06:59 | P.HPIM ---
History of Present Illness H&P Date: 11/23/20 This is a 60-year-old male patient, with past medical history of non-ST elevated myocardial infarction with heart catheterization and stent placement in 2019, COPD with remote history of tobacco use, hypertension, and hyperlipidemia. Patient was recently seen at [facility] and underwent heart catheterization there that revealed severe disease involving the mid right coronary artery and underwent successful stenting to the RCA. He then presented back to the emergency department with chest discomfort and underwent another catheterization with Dr. De Luna on 11/05/20, which revealed patent stent to the mid RCA and patent acute marginal branch intermediate lesion involving the mid LAD with aggressive medical management and was discharged to follow-up as outpatient. On 11/08 he returned to the emergency room per cardiology's instructions to rule out a pseudoaneurysm of the catheterization site which was negative. Today he presents to the emergency room with increasing shortness of breath over the last few days. He denies any fever, chills, or cough, chest pain. EKG revealed normal sinus rhythm with no ST segment elevation or depression. Patient has significant wheezing and decreased breath sounds, chest x-ray was negative. Pulse ox is 96% on room air. Pulse rate 78, blood pressure 143/96. White blood cells were 11.1. Patient was started on IV Solu-Medrol along with DuoNebs and consult for pulmonary in place. REVIEW OF SYSTEMS Constitutional: No fever, no chills, no night sweats. No weight change. No weakness, fatigue or lethargy. No daytime sleepiness. EENT: No headache. No blurred vision or double vision, no loss of vision. No loss of Hearing, no ringing in the ears, no dizziness. No nasal drainage or congestion. No epistaxis. No sore throat. Lungs: Endorses shortness of breath, denies cough, no sputum production. Positive wheezing. Cardiovascular: No chest pain, no lower extremity edema. No palpitations. No paroxysmal nocturnal dyspnea. No orthopnea. No lightheadedness or dizziness. No syncopal episodes. Abdominal: No abdominal pain. No nausea, vomiting. No diarrhea. No constipation. No bloody or tarry stools.. No loss of appetite. Genitourinary: No dysuria, increased frequency, urgency. No urinary retention. Musculoskeletal: No myalgias. No muscle weakness, no gait dysfunction, no frequent falls. No back pain. No neck pain. Integumentary: No wounds, no lesions. No rash or pruritus. No unusual bruising. No change in hair or nails. Neurologic: No aphasia. No facial droop. No change in mentation. No head injury. No headache. No paralysis. No paresthesia. Psychiatric: No depression. No anxiety. No mood swings. Endocrine: No abnormal blood sugars. No weight change. No excessive sweating or thirst. No cold intolerance. SOCIAL HISTORY Patient was a smoker of half a pack per day and quit 2 months ago. He uses marijuana. No alcohol use. He does not have oxygen, nebulizer or CPAP. He previously was living in a homeless half-way.. FAMILY HISTORY Mother has history of brain cancer and in September 2018. PHYSICAL EXAMINATION Gen: This is a 60-year-old male. He is resting in bed and appears to be comfortable and in no acute ST or tarry distress. HEENT: Head is atraumatic, normocephalic. Pupils equal, round. Sclerae is anicteric. NECK: Supple. No JVD. No lymphadenopathy. No thyromegaly. LUNGS: Clear to auscultation. Positive wheezing No intercostal retractions. HEART: Regular rate and rhythm. No murmur. ABDOMEN: Soft. Bowel sounds are present. No masses. No tenderness. EXTREMITIES: No pedal edema. No calf tenderness. NEUROLOGICAL: Patient is awake, alert and oriented x3. Cranial nerves 2 through 12 are grossly intact. ASSESSMENT AND PLAN 1. Exacerbation of COPD, chest x-ray was negative. On Solu-Medrol 60 mg every 6 hours along with duo nebs every 4 hours and when necessary. Pulmicort 0.5 mg twice daily. Consult for pulmonary in place. 2. Recent Non-ST elevated myocardial infarction status post stent RCA. Continue aspirin 81 mg daily, Lipitor 40 mg daily, Plavix 75 mg daily, Imdur 60 mg daily, Toprol-XL 50 mg daily. We'll add cardiology consult. 3. Hypertension. Continue hydrochlorothiazide 12.5 mg daily, Toprol-XL, Imdur. 4. Hyperlipidemia. Continue atorvastatin 40 mg at bedtime 5. GI prophylaxis. On Pepcid 6. DVT prophylaxis. SADIE orta with early ambulation Patient will be admitted to the hospital for a minimum of 2 night stay. DISCHARGE PLAN Home. Impression and plan of care have been directed as dictated by the signing physic ian. Jihan Cadena nurse practitioner acting as scribe for signing physician. Past Medical History Past Medical History: Coronary Artery Disease (CAD), COPD, Hyperlipidemia, Hypertension, Myocardial Infarction ([place]) Additional Past Medical History / Comment(s): Pt states he has hx of 3 respiratory arrests and was vented, generalized arthritis, Last Myocardial Infarction Date:: History of Any Multi-Drug Resistant Organisms: None Reported Past Surgical History: Adenoidectomy, Heart Catheterization With Stent, Hernia Repair, Joint Replacement, Orthopedic Surgery, Tonsillectomy Additional Past Surgical History / Comment(s): R inguinal hernia repair, L rotator cuff repair, bialteral total knee arthroplasties, R shoulder spur removal, teeth extracted, colonoscopy-normal. third hernia repair, left side Past Anesthesia/Blood Transfusion Reactions: No Reported Reaction Date of Last Stent Placement:: 2018 Past Psychological History: No Psychological Hx Reported Smoking Status: Never smoker Past Alcohol Use History: None Reported Past Drug Use History: None Reported - Past Family History Father Family Medical History: Cancer Additional Family Medical History / Comment(s): Father of lung cancer at the age of 62. He was a smoker. Mother Family Medical History: Cancer, Diabetes Mellitus, Hypertension Additional Family Medical History / Comment(s): Mother at age 78 from brainstem cancer. Brother(s) Additional Family Medical History / Comment(s): Patient's 1 brother with history of AAA. Patient has 4 sisters and he does not know any of their medical history. Patient's 1 son and 1 daughter living. He had one daughter that at 7 weeks old from a congenital heart. Medications and Allergies Home Medications Medication Instructions Recorded Confirmed Type Budesonide [Pulmicort] 0.5 mg INHALATION RT-BID 03/03/16 11/23/20 History Aspirin EC [Ecotrin Low Dose] 81 mg PO DAILY 04/01/19 11/23/20 History Atorvastatin [Lipitor] 40 mg PO HS 04/07/19 11/23/20 History Nitroglycerin Sl Tabs [Nitrostat] 0.4 mg SUBLINGUAL Q5M PRN 04/22/20 11/23/20 History Metoprolol Succinate (ER) [Toprol 50 mg PO DAILY 10/30/20 11/23/20 History XL] hydroCHLOROthiazide [Hydrodiuril] 12.5 mg PO DAILY 10/30/20 11/23/20 History Ipratropium-Albuterol Nebulize 3 ml INHALATION RT-Q6H 10/31/20 11/23/20 History [Duoneb 0.5 mg-3 mg/3 ml Soln] Isosorbide Mononitrate ER [Imdur] 60 mg PO DAILY 10/31/20 11/23/20 History Clopidogrel [Plavix] 75 mg PO DAILY #30 tab 11/02/20 11/23/20 Rx Montelukast [Singulair] 10 mg PO HS 11/23/20 11/23/20 History Allergies Allergy/AdvReac Type Severity Reaction Status Date / Time levofloxacin [[facility]] AdvReac Nausea & Verified 11/23/20 09:40 Vomiting Physical Exam Vitals: Vital Signs Temp Pulse Resp BP Pulse Ox 11/23/20 11:44 87 11/23/20 11:36 87 11/23/20 11:31 91 22 143/96 98 11/23/20 09:19 72 11/23/20 08:58 71 11/23/20 08:28 97.6 F 69 24 122/78 96 Intake and Output 11/22/20 11/23/20 11/23/20 22:59 06:59 14:59 Other: Weight 95.254 kg Results CBC & Chem 7: 11/23/20 08:50 11/23/20 08:50 Labs: Abnormal Lab Results - Last 24 Hours (Table) 11/23/20 11/23/20 11/23/20 Range/Units 08:50 08:50 08:50 WBC 11.1 H (3.8-10.6) k/uL APTT 18.6 L (22.0-30.0) sec Sodium 136 L (137-145) mmol/L Glucose 107 H (74-99) mg/dL
[2020-11-24] MEDS: BUDESONIDE 0.5 MG/2 ML NEBU INHALATION SCH ×2 (07:14→20:15)
[2020-11-24] MEDS: CLOPIDOGREL 75 MG TAB PO SCH (07:49)
[2020-11-24] MEDS: METOPROLOL SUCCINATE (ER) 50 MG TAB.ER.24H PO SCH (07:49)
[2020-11-24] MEDS: hydroCHLOROthiazide 12.5 MG CAP PO SCH (07:49)
[2020-11-24] MEDS: ASPIRIN 81 MG PO SCH (07:49)
[2020-11-24] MEDS: ISOSORBIDE MONONITRATE ER 60 MG TAB.ER.24H PO SCH (07:50)
[2020-11-24] MEDS: FAMOTIDINE 20 MG TAB PO SCH (07:50)
--- NOTE | 2020-11-24 11:16 | P.PN ---
Subjective Progress Note Date: 11/24/20 This is a 60-year-old male patient, with past medical history of non-ST elevated myocardial infarction with heart catheterization and stent placement in 2019, COPD with remote history of tobacco use, hypertension, and hyperlipidemia. Patient was recently seen at [facility] and underwent heart catheterization there that revealed severe disease involving the mid right coronary artery and underwent successful stenting to the RCA. He then presented back to the emergency department with chest discomfort and underwent another catheterization with Dr. De Luna on 11/05/20, which revealed patent stent to the mid RCA and patent acute marginal branch intermediate lesion involving the mid LAD with aggressive medical management and was discharged to follow-up as outpatient. On 11/08 he returned to the emergency room per cardiology's instructions to rule out a pseudoaneurysm of the catheterization site which was negative. Today he presents to the emergency room with increasing shortness of breath over the last few days. He denies any fever, chills, or cough, chest pain. EKG revealed normal sinus rhythm with no ST segment elevation or depression. Patient has significant wheezing and decreased breath sounds, chest x-ray was negative. Pulse ox is 96% on room air. Pulse rate 78, blood pressure 143/96. White blood cells were 11.1. Patient was started on IV Solu-Medrol along with DuoNebs and consult for pulmonary in place. 11/25 patient evaluated at bedside, still positive with mild shortness of breath. Patient remains on room air pulse ox 97%. Vital signs have been stable. C ontinue IV Solu-Medrol 60 mg every 6 hours along with duo neb nebulizers and Pulmicort twice a day. Pulmonary and cardiology consults in place. REVIEW OF SYSTEMS Constitutional: No fever, no chills, no night sweats. No weight change. No weakness, fatigue or lethargy. No daytime sleepiness. EENT: No headache. No blurred vision or double vision, no loss of vision. No loss of Hearing, no ringing in the ears, no dizziness. No nasal drainage or congestion. No epistaxis. No sore throat. Lungs: Endorses shortness of breath, positive cough, no sputum production. Positive wheezing. Cardiovascular: No chest pain, no lower extremity edema. No palpitations. No paroxysmal nocturnal dyspnea. No orthopnea. No lightheadedness or dizziness. No syncopal episodes. Abdominal: No abdominal pain. No nausea, vomiting. No diarrhea. No constipation. No bloody or tarry stools.. No loss of appetite. Genitourinary: No dysuria, increased frequency, urgency. No urinary retention. Musculoskeletal: No myalgias. No muscle weakness, no gait dysfunction, no frequent falls. No back pain. No neck pain. Integumentary: No wounds, no lesions. No rash or pruritus. No unusual bruising. No change in hair or nails. Neurologic: No aphasia. No facial droop. No change in mentation. No head injury. No headache. No paralysis. No paresthesia. Psychiatric: No depression. No anxiety. No mood swings. Endocrine: No abnormal blood sugars. No weight change. No excessive sweating or thirst. No cold intolerance. PHYSICAL EXAMINATION Gen: This is a 60-year-old male. He is resting in bed and appears to be comfortable and in no acute respiratory distress. HEENT: Head is atraumatic, normocephalic. Pupils equal, round. Sclerae is anicteric. NECK: Supple. No JVD. No lymphadenopathy. No thyromegaly. LUNGS: Clear to auscultation, but diminished. No intercostal retractions. HEART: Regular rate and rhythm. No murmur. ABDOMEN: Soft. Bowel sounds are present. No masses. No tenderness. EXTREMITIES: No pedal edema. No calf tenderness. NEUROLOGICAL: Patient is awake, alert and oriented x3. Cranial nerves 2 through 12 are grossly intact. ASSESSMENT AND PLAN 1. Exacerbation of COPD, chest x-ray was negative. On Solu-Medrol 60 mg every 6 hours along with duo nebs every 4 hours and when necessary. Pulmicort 0.5 mg twice daily. Consult for pulmonary in place. 2. Recent Non-ST elevated myocardial infarction status post stent RCA. Continue aspirin 81 mg daily, Lipitor 40 mg daily, Plavix 75 mg daily, Imdur 60 mg daily, Toprol-XL 50 mg daily. We'll add cardiology consult. 3. Hypertension. Continue hydrochlorothiazide 12.5 mg daily, Toprol-XL, Imdur. 4. Hyperlipidemia. Continue atorvastatin 40 mg at bedtime 5. GI prophylaxis. On Pepcid 6. DVT prophylaxis. SADIE orta with early ambulation Patient will be admitted to the hospital for a minimum of 2 night stay. DISCHARGE PLAN Home. Impression and plan of care have been directed as dictated by the signing physician. Jihan Cadena nurse practitioner acting as scribe for signing physician. Objective - Vital Signs Vital signs: Vital Signs Temp 97.9 F 11/24/20 07:00 Pulse 101 H 11/24/20 07:30 Resp 18 11/24/20 07:00 BP 138/74 11/24/20 07:00 Pulse Ox 95 11/24/20 07:14 Intake & Output 11/23/20 11/24/20 11/24/20 18:59 06:59 18:59 Weight 95.254 kg Other: Voiding Method Toilet Toilet Urinal Urinal # Voids 0 2 - Labs CBC & Chem 7: 11/23/20 08:50 11/23/20 08:50
--- NOTE | 2020-11-24 11:32 | P.CRDCN ---
History of Present Illness Consult date: 11/24/20 Requesting physician: Jamaal Flores Reason for Consult (text): CAD, recent intervention Chief complaint: shortness of breath History of present illness: This is a pleasant 60-year-old gentleman who follows with Dr. Torres in the office. He has a history of hypertension, hyperlipidemia and CAD. Recently he was admitted to [facility] with chest discomfort at which time he underwent cardiac catheterization with subsequent stenting of the RCA. He was subsequently readmitted on the of this month with complaints of chest discomfort and underwent cardiac catheterization at that time which revealed patent stent in the mid RCA patent acute marginal branch which had previously been closed after the stent, intermediate lesion involving the mid LAD with an FFR coming in to be nonischemic at 0.83. He presents this admission with complaints of shortness of breath. He has a history of COPD and recently quit smoking on the third of this month. Over the past few days he's become more short of breath. He was admitted with decreased breath sounds significant wheezing. He's being followed by pulmonary. We were asked to the patient in consultation due to his recent intervention. From a cardiac standpoint he's been feeling well. He continues on aspirin, Plavix, isosorbide, metoprolol and atorvastatin. He's been initiated on IV Solu-Medrol. He continues to complain of shortness of breath but is overall feeling a bit better compared to admission. Vital signs have been stable he's been afebrile. Past Medical History Past Medical History: Coronary Artery Disease (CAD), COPD, Hyperlipidemia, Hypertension, Myocardial Infarction (RI) Additional Past Medical History / Comment(s): Pt states he has hx of 3 respiratory arrests and was vented, generalized arthritis, Last Myocardial Infarction Date:: History of Any Multi-Drug Resistant Organisms: None Reported Past Surgical History: Adenoidectomy, Heart Catheterization With Stent, Hernia Repair, Joint Replacement, Orthopedic Surgery, Tonsillectomy Additional Past Surgical History / Comment(s): R inguinal hernia repair, L rotator cuff repair, bialteral total knee arthroplasties, R shoulder spur removal, teeth extracted, colonoscopy-normal. third hernia repair, left side Past Anesthesia/Blood Transfusion Reactions: No Reported Reaction Date of Last Stent Placement:: 2018 Past Psychological History: No Psychological Hx Reported Smoking Status: Never smoker Past Alcohol Use History: None Reported Past Drug Use History: None Reported - Past Family History Father Family Medical History: Cancer Additional Family Medical History / Comment(s): Father of lung cancer at the age of 62. He was a smoker. Mother Family Medical History: Cancer, Diabetes Mellitus, Hypertension Additional Family Medical History / Comment(s): Mother at age 78 from brainstem cancer. Brother(s) Additional Family Medical History / Comment(s): Patient's 1 brother with history of AAA. Patient has 4 sisters and he does not know any of their medical history. Patient's 1 son and 1 daughter living. He had one daughter that at 7 weeks old from a congenital heart. Medications and Allergies Home Medications Medication Instructions Recorded Confirmed Type Budesonide [Pulmicort] 0.5 mg INHALATION RT-BID 03/03/16 11/23/20 History Aspirin EC [Ecotrin Low Dose] 81 mg PO DAILY 04/01/19 11/23/20 History Atorvastatin [Lipitor] 40 mg PO HS 04/07/19 11/23/20 History Nitroglycerin Sl Tabs [Nitrostat] 0.4 mg SUBLINGUAL Q5M PRN 04/22/20 11/23/20 History Metoprolol Succinate (ER) [Toprol 50 mg PO DAILY 10/30/20 11/23/20 History XL] hydroCHLOROthiazide [Hydrodiuril] 12.5 mg PO DAILY 10/30/20 11/23/20 History Ipratropium-Albuterol Nebulize 3 ml INHALATION RT-Q6H 10/31/20 11/23/20 History [Duoneb 0.5 mg-3 mg/3 ml Soln] Isosorbide Mononitrate ER [Imdur] 60 mg PO DAILY 10/31/20 11/23/20 History Clopidogrel [Plavix] 75 mg PO DAILY #30 tab 11/02/20 11/23/20 Rx Montelukast [Singulair] 10 mg PO HS 11/23/20 11/23/20 History Allergies Allergy/AdvReac Type Severity Reaction Status Date / Time levofloxacin [From Levaquin] AdvReac Nausea & Verified 11/23/20 09:40 Vomiting Physical Exam Vitals: Vital Signs Temp Pulse Pulse Resp BP BP Pulse Ox 11/24/20 11:16 106 H 11/24/20 07:30 101 H 11/24/20 07:14 98 95 11/24/20 07:00 97.9 F 100 18 138/74 94 L 11/24/20 01:39 98.2 F 116 H 18 149/64 94 L 11/24/20 00:43 112 H 11/24/20 00:36 114 H 11/23/20 20:00 98.0 F 114 H 17 123/75 95 11/23/20 19:54 100 11/23/20 19:43 101 H 11/23/20 16:07 101 H 11/23/20 15:56 104 H 11/23/20 14:06 97.6 F 104 H 18 123/79 96 11/23/20 13:52 98.4 F 106 H 22 135/82 97 11/23/20 12:00 78 16 96 11/23/20 11:44 87 11/23/20 11:36 87 11/23/20 11:31 91 22 143/96 98 Intake and Output 11/23/20 11/24/20 11/24/20 22:59 06:59 14:59 Other: Voiding Method Toilet Toilet Urinal Urinal # Voids 1 2 PHYSICAL EXAMINATION: This is a 60-year-old male in no apparent distress at the time of my examination. VITAL SIGNS: Blood pressure 138/74, heart rate 101, respirations 18, temp 97.9F. Patient is 94 % on room air. HEENT: Head is atraumatic, normocephalic. Pupils are equal, round. Sclerae anicteric. Conjunctivae are clear. Mucous membranes of the mouth are moist. Neck is supple. There is no elevated jugular venous pressure. No carotid bruit is heard. CHEST EXAMINATION: Lungs revealed significantly diminished air entry bilaterally. No wheezes rales or rhonchi. Respirations even and nonlabored. HEART EXAMINATION: Heart regular, positive S1 and S2. No S3. No S4. No clicks, rubs or murmurs. ABDOMEN: Soft, nontender. Bowel sounds are heard. No organomegaly noted. EXTREMITIES: 2+ peripheral pulses with no evidence of peripheral edema and no calf tenderness noted. NEUROLOGIC EXAMINATION: Patient is awake, alert and oriented x3. Results 11/23/20 08:50 11/23/20 08:50 Current Medications Generic Name Dose Route Start Last Admin Trade Name Freq PRN Reason Stop Dose Admin Acetaminophen 650 mg 11/24/20 04:45 11/24/20 05:30 Acetaminophen Tab 325 Mg Tab PO 650 mg Q6HR PRN Administration Fever and/ or Pain Albuterol/Ipratropium 3 ml 11/23/20 10:42 11/24/20 11:13 Ipratropium-Albuterol 3 Ml Neb INHALATION 3 ml RT-Q4H PRN Administration Shortness Of Breath Or Wheezing Aspirin 81 mg 11/24/20 09:00 11/24/20 07:49 Aspirin 81 Mg PO 81 mg DAILY PRASHANT Administration Atorvastatin Calcium 40 mg 11/23/20 21:00 11/23/20 20:19 Atorvastatin 40 Mg Tab PO 40 mg HS PRASHANT Administration Budesonide 0.5 mg 11/23/20 20:00 11/24/20 07:14 Budesonide 0.5 Mg/2 Ml Nebu INHALATION 0.5 mg RT-BID PRASHANT Administration Clopidogrel Bisulfate 75 mg 11/24/20 09:00 11/24/20 07:49 Clopidogrel 75 Mg Tab PO 75 mg DAILY PRASHANT Administration Famotidine 20 mg 11/24/20 09:00 11/24/20 07:50 Famotidine 20 Mg Tab PO 20 mg DAILY PRASHANT Administration Hydrochlorothiazide 12.5 mg 11/24/20 09:00 11/24/20 07:49 Hydrochlorothiazide 12.5 Mg Cap PO 12.5 mg DAILY PRASHANT Administration Isosorbide Mononitrate 60 mg 11/24/20 09:00 11/24/20 07:50 Isosorbide Mononitrate Er 60 Mg Tab.Er.24h PO 60 mg DAILY PRASHANT Administration Methylprednisolone Sodium Succinate 60 mg 11/23/20 13:00 11/24/20 05:29 Methylprednisolone Sod Succi 125 Mg/2 Ml Vial IV 60 mg Q6HR PRASHANT Administration Metoprolol Succinate 50 mg 11/24/20 09:00 11/24/20 07:49 Metoprolol Succinate (Er) 50 Mg Tab.Er.24h PO 50 mg DAILY PRASHANT Administration Montelukast Sodium 10 mg 11/23/20 21:00 11/23/20 20:19 Montelukast 10 Mg Tab PO 10 mg HS PRASHANT Administration Nitroglycerin 0.4 mg 11/23/20 12:35 Nitroglycerin Sl Tabs 0.4 Mg Tab SUBLINGUAL Q5M PRN Chest Pain Intake and Output 11/23/20 11/24/20 11/24/20 22:59 06:59 14:59 Other: Voiding Method Toilet Toilet Urinal Urinal # Voids 1 2 11/23/20 08:50 11/23/20 08:50 Assessment and Plan Assessment: #1 CAD status post PCI, stable #2 COPD exacerbation #3 hypertension #4 hyperlipidemia #5 nicotine dependence, recently quit smoking on October 29 Plan: From cardiology's perspective medications were reviewed and will continue the sa me. At this time there is no need for cardiac workup. We will continue to follow the patient by further recommendations accordingly. [employer] note has been reviewed, I agree with a documented findings and plan of care. Patient was seen and examined.
[2020-11-24] MEDS: CALCIUM CARBONATE 500 MG CHEWABLE PO PRN (17:59)
[2020-11-24] MEDS: MONTELUKAST 10 MG TAB PO SCH (20:29)
[2020-11-24] MEDS: ATORVASTATIN 40 MG TAB PO SCH (20:29)
[2020-11-25] MEDS: CALCIUM CARBONATE 500 MG CHEWABLE PO PRN ×2 (02:44→19:26)
[2020-11-25] MEDS: methylPREDNISolone SOD SUCCI 125 MG/2 ML VIAL IV SCH ×3 (05:23→17:36)
[2020-11-25] MEDS: BUDESONIDE 0.5 MG/2 ML NEBU INHALATION SCH ×2 (06:56→20:20)
[2020-11-25] MEDS: IPRATROPIUM-ALBUTEROL 3 ML NEB INHALATION PRN ×4 (06:56→20:19)
[2020-11-25] MEDS: FAMOTIDINE 20 MG TAB PO SCH (07:18)
[2020-11-25] MEDS: ASPIRIN 81 MG PO SCH (08:01)
[2020-11-25] MEDS: METOPROLOL SUCCINATE (ER) 50 MG TAB.ER.24H PO SCH (08:01)
[2020-11-25] MEDS: CLOPIDOGREL 75 MG TAB PO SCH (08:01)
[2020-11-25] MEDS: ISOSORBIDE MONONITRATE ER 60 MG TAB.ER.24H PO SCH (08:02)
[2020-11-25] MEDS: hydroCHLOROthiazide 12.5 MG CAP PO SCH (08:02)
--- NOTE | 2020-11-25 10:33 | P.PN ---
Subjective Progress Note Date: 11/25/20 This is a 60-year-old male patient, with past medical history of non-ST elevated myocardial infarction with heart catheterization and stent placement in 2019, COPD with remote history of tobacco use, hypertension, and hyperlipidemia. Patient was recently seen at [facility] and underwent heart catheterization there that revealed severe disease involving the mid right coronary artery and underwent successful stenting to the RCA. He then presented back to the emergency department with chest discomfort and underwent another catheterization with Dr. De Luna on 11/05/20, which revealed patent stent to the mid RCA and patent acute marginal branch intermediate lesion involving the mid LAD with aggressive medical management and was discharged to follow-up as outpatient. On 11/08 he returned to the emergency room per cardiology's instructions to rule out a pseudoaneurysm of the catheterization site which was negative. Today he presents to the emergency room with increasing shortness of breath over the last few days. He denies any fever, chills, or cough, chest pain. EKG revealed normal sinus rhythm with no ST segment elevation or depression. Patient has significant wheezing and decreased breath sounds, chest x-ray was negative. Pulse ox is 96% on room air. Pulse rate 78, blood pressure 143/96. White blood cells were 11.1. Patient was started on IV Solu-Medrol along with DuoNebs and consult for pulmonary in place. 11/24 patient evaluated at bedside, still positive with mild shortness of breath. Patient remains on room air pulse ox 97%. Vital signs have been stable. C ontinue IV Solu-Medrol 60 mg every 6 hours along with duo neb nebulizers and Pulmicort twice a day. Pulmonary and cardiology consults in place. 11/25: Patient has been seen by cardiology with recommendations to continue his current medications and no further cardiac workup is necessary. Patient has also been seen by pulmonary medicine, Dr. Hudson, with recommendations to continue IV steroids, nebulizer treatments and home medications. Patient has been afebrile, heart rate 91, blood pressure 122/73, pulse ox 95% on room air. Patient remains on Solu-Medrol IV 60 mg every 6 hours, NovoLog scale added. Patient states that breathing is better today from yesterday. We will maintian current dose of Solu-Medrol. Probable discharge home tomorrow. REVIEW OF SYSTEMS Constitutional: No fever, no chills, no night sweats. No weight change. No weakness, fatigue or lethargy. No daytime sleepiness. EENT: No headache. No blurred vision or double vision, no loss of vision. No loss of Hearing, no ringing in the ears, no dizziness. No nasal drainage or congestion. No epistaxis. No sore throat. Lungs: Endorses shortness of breath, positive cough, no sputum production. Positive wheezing. Cardiovascular: No chest pain, no lower extremity edema. No palpitations. No paroxysmal nocturnal dyspnea. No orthopnea. No lightheadedness or dizziness. No syncopal episodes. Abdominal: No abdominal pain. No nausea, vomiting. No diarrhea. No constipation. No bloody or tarry stools.. No loss of appetite. Genitourinary: No dysuria, increased frequency, urgency. No urinary retention. Musculoskeletal: No myalgias. No muscle weakness, no gait dysfunction, no frequent falls. No back pain. No neck pain. Integumentary: No wounds, no lesions. No rash or pruritus. No unusual bruising. No change in hair or nails. Neurologic: No aphasia. No facial droop. No change in mentation. No head injury. No headache. No paralysis. No paresthesia. Psychiatric: No depression. No anxiety. No mood swings. Endocrine: No abnormal blood sugars. No weight change. No excessive sweating or thirst. No cold intolerance. PHYSICAL EXAMINATION Gen: This is a 60-year-old male. He is resting in bed and appears to be comfortable and in no acute respiratory distress. HEENT: Head is atraumatic, normocephalic. Pupils equal, round. Sclerae is anicteric. NECK: Supple. No JVD. No lymphadenopathy. No thyromegaly. LUNGS: Crackles in right lower are, diminished. No intercostal retractions. HEART: Regular rate and rhythm. No murmur. ABDOMEN: Soft. Bowel sounds are present. No masses. No tenderness. EXTREMITIES: No pedal edema. No calf tenderness. NEUROLOGICAL: Patient is awake, alert and oriented x3. Cranial nerves 2 through 12 are grossly intact. ASSESSMENT AND PLAN 1. Exacerbation of COPD, chest x-ray was negative. On Solu-Medrol 60 mg every 6 hours along with duo nebs every 4 hours and when necessary. Pulmicort 0.5 mg twice daily. Consult for pulmonary appreciated. 2. Recent Non-ST elevated myocardial infarction status post stent RCA. Continue aspirin 81 mg daily, Lipitor 40 mg daily, Plavix 75 mg daily, Imdur 60 mg daily, Toprol-XL 50 mg daily. Cardiology consult appreciated. 3. Hypertension. Continue hydrochlorothiazide 12.5 mg daily, Toprol-XL, Imdur. 4. Hyperlipidemia. Continue atorvastatin 40 mg at bedtime 5. GI prophylaxis. On Pepcid 6. DVT prophylaxis. SADIE orta with early ambulation CODE STATUS: No code DISCHARGE PLAN Home Impression and plan of care have been directed as dictated by the signing physician. Daysi Nunn nurse practitioner acting as scribe for signing physician. DISCHARGE PLAN Home. Objective - Vital Signs Vital signs: Vital Signs Temp 97.8 F 11/25/20 07:00 Pulse 90 11/25/20 07:09 Resp 16 11/25/20 08:00 BP 122/73 11/25/20 07:00 Pulse Ox 95 11/25/20 07:00 Intake & Output 11/24/20 11/25/20 11/25/20 18:59 06:59 18:59 Intake Total 500 Balance 500 Intake: Oral 500 Other: Voiding Method Toilet Toilet Toilet Urinal Urinal Urinal # Voids 3 2 - Labs CBC & Chem 7: 11/23/20 08:50 11/23/20 08:50
[2020-11-25 11:39] LABS: Glucose,Whole Blood 257 mg/dL (75-99)
[2020-11-25] MEDS: INSULIN ASPART (NovoLOG) 100 UNIT/ML VIAL SQ SCH ×3 (11:56→22:01)
--- NOTE | 2020-11-25 16:49 | P.PN ---
Subjective Progress Note Date: 11/25/20 Principal diagnosis: Acute COPD exacerbation Coronary artery disease and history of stent placement Chronic systolic heart failure Dyslipidemia Hypertension hypertensive cardiovascular disease Component of chronic asthma and asthmatic bronchitis 11/25/2020, patient seen eval examined during the rounds labs reviewed medications reviewed care plan discussed, shortness of wheezing slightly improved patient remains on IV steroids agree with continuing it for another 24 hours, This is a 60-year-old male well-known to me with history of end-stage lung disease and severe COPD emphysema all along with coronary artery disease chronic systolic heart failure patient is homeless and lives in a [facility], patient was seen in the office for exacerbation of COPD he has been on tapering doses of steroids with significant improvement however in the last 2 days has been outside much in the heated hot humid whether also 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 Altogether a month month ago, on specific questioning denies any headache or seizure-like activity no loss of consciousness, denies any chest pain however chest tightness there, ongoing cough but no sputum production denies any bowel or bladder related problem Objective - Vital Signs Vital signs: Vital Signs Temp 97.9 F 11/25/20 15:00 Pulse 88 11/25/20 15:19 Resp 18 11/25/20 15:00 BP 120/68 11/25/20 15:00 Pulse Ox 96 11/25/20 15:00 Intake & Output 11/24/20 11/25/20 11/25/20 18:59 06:59 18:59 Intake Total 500 Balance 500 Intake: Oral 500 Other: Voiding Method Toilet Toilet Toilet Urinal Urinal Urinal # Voids 3 2 2 - Exam - Constitutional General appearance: average body habitus, cooperative, disheveled - EENT Eyes: EOMI, PERRLA ENT: normal oropharynx Ears: bilateral: normal - Neck Neck: normal ROM Carotids: bilateral: upstroke normal Thyroid: bilateral: normal size - Respiratory Respiratory: bilateral: diminished, rhonchi, wheezing, negative: CTA - Cardiovascular Rhythm: regular Heart sounds: normal: S1, S2 - Gastrointestinal General gastrointestinal: normal bowel sounds, soft - Integumentary Integumentary: normal turgor - Neurologic Neurologic: CNII-XII intact - Musculoskeletal Musculoskeletal: gait normal, generalized weakness, strength equal bilaterally - Psychiatric Psychiatric: A&O x's 3, appropriate affect, intact judgment & insight - Labs CBC & Chem 7: 11/23/20 08:50 11/23/20 08:50 Labs: Abnormal Lab Results - Last 24 Hours (Table) 11/25/20 Range/Units 11:38 POC Glucose (mg/dL) 257 H (75-99) mg/dL Assessment and Plan Assessment: Acute COPD exacerbation Coronary artery disease and history of stent placement Chronic systolic heart failure Dyslipidemia Hypertension hypertensive cardiovascular disease Component of chronic asthma and asthmatic bronchitis Plan: Continue IV steroids Breathing treatments Home medications including beta octaviano Follow clinical course closely patient is not ready for discharge
[2020-11-25 17:22] LABS: Glucose,Whole Blood 172 mg/dL (75-99)
[2020-11-25] MEDS: MONTELUKAST 10 MG TAB PO SCH (20:42)
[2020-11-25] MEDS: ATORVASTATIN 40 MG TAB PO SCH (20:42)
[2020-11-25 20:44] LABS: Glucose,Whole Blood 159 mg/dL (75-99)
[2020-11-26] MEDS: methylPREDNISolone SOD SUCCI 125 MG/2 ML VIAL IV SCH ×2 (00:47→07:56)
[2020-11-26 02:40] VITALS: RESP 18
[2020-11-26 07:04] LABS: Glucose,Whole Blood 173 mg/dL (75-99)
[2020-11-26 07:47] VITALS: BP 141/85; TEMP 98.1
[2020-11-26] MEDS: INSULIN ASPART (NovoLOG) 100 UNIT/ML VIAL SQ SCH (07:54)
[2020-11-26] MEDS: IPRATROPIUM-ALBUTEROL 3 ML NEB INHALATION PRN (08:52)
[2020-11-26] MEDS: BUDESONIDE 0.5 MG/2 ML NEBU INHALATION SCH (08:52)
[2020-11-26] MEDS: ASPIRIN 81 MG PO SCH (08:53)
[2020-11-26] MEDS: hydroCHLOROthiazide 12.5 MG CAP PO SCH (08:53)
[2020-11-26] MEDS: CLOPIDOGREL 75 MG TAB PO SCH (08:53)
[2020-11-26] MEDS: ISOSORBIDE MONONITRATE ER 60 MG TAB.ER.24H PO SCH (08:53)
[2020-11-26] MEDS: METOPROLOL SUCCINATE (ER) 50 MG TAB.ER.24H PO SCH (08:54)
[2020-11-26] MEDS: FAMOTIDINE 20 MG TAB PO SCH (08:54)
[2020-11-26 09:09] VITALS: PULSE 90
--- NOTE | 2020-11-26 09:16 | P.PN ---
Subjective Progress Note Date: 11/26/20 Principal diagnosis: Acute COPD exacerbation Coronary artery disease and history of stent placement Chronic systolic heart failure Dyslipidemia Hypertension hypertensive cardiovascular disease Component of chronic asthma and asthmatic bronchitis 11/26/2020, patient seen eval examined during the rounds labs reviewed medications reviewed care plan discussed, respiratory status remained stable, wheezing is improved and less cough congestion is present, I agree with discharg e planning on oral steroids follow-up in outpatient 11/25/2020, patient seen eval examined during the rounds labs reviewed medications reviewed care plan discussed, shortness of wheezing slightly imp roved patient remains on IV steroids agree with continuing it for another 24 hours, This is a 60-year-old male well-known to me with history of end-stage lung disease and severe COPD emphysema all along with coronary artery disease chronic systolic heart failure patient is homeless and lives in a [facility], patient was seen in the office for exacerbation of COPD he has been on tapering doses of lucia roids with significant improvement however in the last 2 days has been outside much in the heated hot humid whether also 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 Altogether a month month ago, on specific questioning denies any headache or seizure-like activity no loss of consciousness, denies any chest pain however chest tightness there, ongoing cough but no sputum production denies any bowel or bladder related problem Objective - Vital Signs Vital signs: Vital Signs Temp 98.1 F 11/26/20 07:00 Pulse 90 11/26/20 09:09 Resp 18 11/26/20 07:00 BP 141/85 11/26/20 07:00 Pulse Ox 96 11/26/20 08:55 Intake & Output 11/25/20 11/26/20 11/26/20 18:59 06:59 18:59 Other: Voiding Method Toilet Toilet Urinal Urinal # Voids 2 3 - Exam - Constitutional General appearance: average body habitus, cooperative, disheveled - EENT Eyes: EOMI, PERRLA ENT: normal oropharynx Ears: bilateral: normal - Neck Neck: normal ROM Carotids: bilateral: upstroke normal Thyroid: bilateral: normal size - Respiratory Respiratory: bilateral: diminished, rhonchi, wheezing, negative: CTA - Cardiovascular Rhythm: regular Heart sounds: normal: S1, S2 - Gastrointestinal General gastrointestinal: normal bowel sounds, soft - Integumentary Integumentary: normal turgor - Neurologic Neurologic: CNII-XII intact - Musculoskeletal Musculoskeletal: gait normal, generalized weakness, strength equal bilaterally - Psychiatric Psychiatric: A&O x's 3, appropriate affect, intact judgment & insight - Labs CBC & Chem 7: 11/23/20 08:50 11/23/20 08:50 Labs: Abnormal Lab Results - Last 24 Hours (Table) 11/25/20 11/25/20 11/25/20 Range/Units 11:38 17:21 20:43 POC Glucose (mg/dL) 257 H 172 H 159 H (75-99) mg/dL 11/26/20 Range/Units 07:02 POC Glucose (mg/dL) 173 H (75-99) mg/dL Assessment and Plan Assessment: Acute COPD exacerbation Coronary artery disease and history of stent placement Chronic systolic heart failure Dyslipidemia Hypertension hypertensive cardiovascular disease Component of chronic asthma and asthmatic bronchitis Plan: Continue IV steroids, can be changed to oral at the time of discharge, short- term steroids like 40 mg daily for 7 days and then 20 mg daily for 7 days Breathing treatments Continue Home medications Follow clinical course closely patient is not ready for discharge Time with Patient: Greater than 30
--- NOTE | 2020-11-26 10:05 | P.DS ---
Providers Date of admission: 11/23/20 10:48 Expected date of discharge: 11/26/20 Attending physician: Jamaal Flores Consults: 11/23/20 10:42 Consult Physician Routine Consulting Provider: Gabriel Hudson Consult Reason/Comments: COPD exacerbation Do you want consulting provider notified?: Yes 11/23/20 12:42 Consult Physician Routine Consulting Provider: Eduin Martin Consult Reason/Comments: CAD, recent intervention Do you want consulting provider notified?: Yes Primary care physician: Stated None Hospital Course: This is a 60-year-old male patient, with past medical history of non-ST elevated myocardial infarction with heart catheterization and stent placement in 2019, COPD with remote history of tobacco use, hypertension, and hyperlipidemia. Patient was recently seen at [facility] and underwent heart catheterization there that revealed severe disease involving the mid right coronary artery and underwent successful stenting to the RCA. He then presented back to the emergency department with chest discomfort and underwent another catheterization with Dr. De Luna on 11/05/20, which revealed patent stent to the mid RCA and patent acute marginal branch intermediate lesion involving the mid LAD with aggressive medical management and was discharged to follow-up as outpatient. On 11/08 he returned to the emergency room per cardiology's instructions to rule out a pseudoaneurysm of the catheterization site which was negative. Today he presents to the emergency room with increasing shortness of breath over the last few days. He denies any fever, chills, or cough, chest pain. EKG revealed normal sinus rhythm with no ST segment elevation or depression. Patient has significant wheezing and decreased breath sounds, chest x-ray was negative. Pulse ox is 96% on room air. Pulse rate 78, blood pressure 143/96. White blood cells were 11.1. Patient was started on IV Solu-Medrol along with DuoNebs and consult for pulmonary in place. 11/24 patient evaluated at bedside, still positive with mild shortness of breath. Patient remains on room air pulse ox 97%. Vital signs have been stable. Continue IV Solu-Medrol 60 mg every 6 hours along with duo neb nebulizers and Pulmicort twice a day. Pulmonary and cardiology consults in place. 11/25: Patient has been seen by cardiology with recommendations to continue his current medications and no further cardiac workup is necessary. Patient has also been seen by pulmonary medicine, Dr. Hudson, with recommendations to continue IV steroids, nebulizer treatments and home medications. Patient has been afebrile, heart rate 91, blood pressure 122/73, pulse ox 95% on room air. Patient remains on Solu-Medrol IV 60 mg every 6 hours, NovoLog scale added. Patient states that breathing is better today from yesterday. We will maintian current dose of Solu-Medrol. Probable discharge home tomorrow. 11/26: Patient states he continues to have cough but no sputum production. Wheezing and shortness of breath are improved. He is on IV Solu-Medrol which will be transitioned to oral prednisone. Patient has been afebrile, heart rate 87, blood pressure 141/85, pulse ox 95% on room air. Capillary blood glucose running between 159 and 257. Patient has been seen by Dr. Hudson and cleared for discharge. Patient will be discharged home today in stable condition. ASSESSMENT AND PLAN 1. Exacerbation of COPD. 2. Recent Non-ST elevated myocardial infarction status post stent RCA. . 3. Hypertension. 4. Hyperlipidemia. DISCHARGE PLAN Home Impression and plan of care have been directed as dictated by the signing physician. Daysi Nunn nurse practitioner acting as scribe for signing physician. Patient Condition at Discharge: Good Plan - Discharge Summary Discharge Rx Participant: No New Discharge Prescriptions: New Famotidine [Pepcid] 20 mg PO DAILY #30 tab predniSONE 0 mg PO DIRECTED #30 tab Continue Budesonide [Pulmicort] 0.5 mg INHALATION RT-BID Aspirin EC [Ecotrin Low Dose] 81 mg PO DAILY Atorvastatin [Lipitor] 40 mg PO HS Nitroglycerin Sl Tabs [Nitrostat] 0.4 mg SUBLINGUAL Q5M PRN PRN Reason: Chest Pain Metoprolol Succinate (ER) [Toprol XL] 50 mg PO DAILY Isosorbide Mononitrate ER [Imdur] 60 mg PO DAILY Clopidogrel [Plavix] 75 mg PO DAILY #30 tab Montelukast [Singulair] 10 mg PO HS hydroCHLOROthiazide [Hydrodiuril] 12.5 mg PO DAILY Ipratropium-Albuterol Nebulize [Duoneb 0.5 mg-3 mg/3 ml Soln] 3 ml INHALATION RT-Q6H Discharge Medication List Budesonide [Pulmicort] 0.5 mg INHALATION RT-BID 03/03/16 [History] Aspirin EC [Ecotrin Low Dose] 81 mg PO DAILY 04/01/19 [History] Atorvastatin [Lipitor] 40 mg PO HS 04/07/19 [History] Nitroglycerin Sl Tabs [Nitrostat] 0.4 mg SUBLINGUAL Q5M PRN 04/22/20 [History] Metoprolol Succinate (ER) [Toprol XL] 50 mg PO DAILY 10/30/20 [History] hydroCHLOROthiazide [Hydrodiuril] 12.5 mg PO DAILY 10/30/20 [History] Ipratropium-Albuterol Nebulize [Duoneb 0.5 mg-3 mg/3 ml Soln] 3 ml INHALATION RT-Q6H 10/31/20 [History] Isosorbide Mononitrate ER [Imdur] 60 mg PO DAILY 10/31/20 [History] Clopidogrel [Plavix] 75 mg PO DAILY #30 tab 11/02/20 [Rx] Montelukast [Singulair] 10 mg PO HS 11/23/20 [History] Famotidine [Pepcid] 20 mg PO DAILY #30 tab 11/26/20 [Rx] predniSONE 0 mg PO DIRECTED #30 tab 11/26/20 [Rx] Follow up Appointment(s)/Referral(s): Ava Erwin NPC [Nurse Practitioner] - 12/03/20 8:45 am (APPOINTMENT IS AT THE DOWNTOWN OFFICE) Gabriel Hudson MD [STAFF PHYSICIAN] - 1 Week (PATIENT NEEDS TO SCHEDULE APPOINTMENT FOR ONE WEEK AFTER DISCHARGE.) Patient Instructions/Handouts: COPD (Chronic Obstructive Pulmonary Disease) (DC) Discharge Disposition: HOME SELF-CARE
== END 2020-11-26 11:35 | disposition home or self-care (01) | DRG 191 ==
LOC: EC 08:24 → 6NMEDSUR 10:48 → OBSVTOIN 11-26 09:10
PROVIDERS: ADMIT Internal Medicine Geriatric Medicine; ATTEND Internal Medicine Geriatric Medicine
DX: J44.1 Chronic obstructive pulmonary disease with (acute) exacerbation (principal); I50.22 Chronic systolic (congestive) heart failure; M13.0 Polyarthritis, unspecified; E78.5 Hyperlipidemia, unspecified; I11.0 Hypertensive heart disease with heart failure; I25.10 Atherosclerotic heart disease of native coronary artery without angina pectoris; Z79.02 Long term (current) use of antithrombotics/antiplatelets; Z79.51 Long term (current) use of inhaled steroids; Z79.82 Long term (current) use of aspirin; Z79.899 Other long term (current) drug therapy; Z80.1 Family history of malignant neoplasm of trachea, bronchus and lung; Z98.61 Coronary angioplasty status; Z87.891 Personal history of nicotine dependence; Z83.3 Family history of diabetes mellitus; Z82.49 Family history of ischemic heart disease and other diseases of the circulatory system; Z80.8 Family history of malignant neoplasm of other organs or systems; I25.2 Old myocardial infarction
CPT/HCPCS: 36415; 71046; 80053; 83605; 83735; 84484; 85025; 85610; 85730; 93005; 94640; 94760; 96374; 96376; 99285

== ENCOUNTER 2020-11-29 11:37 | Observation (INO) | payer MEDICARE, OTHER ==
[2020-11-29] MEDS ORDERED: NITROGLYCERIN SL TABS 0.4 MG TAB SUBLINGUAL PRN (11:43)
[2020-11-29] MEDS ORDERED: ASPIRIN 81 MG PO STA (11:44)
[2020-11-29] MEDS ORDERED: SODIUM CHLORIDE 0.9% 500 ML 500 ML IV STA (11:44)
--- NOTE | 2020-11-29 11:49 | ED ---
General Adult HPI - General Chief complaint: Chest Pain Stated complaint: CHEST PAIN Time Seen by Provider: 11/29/20 11:40 Source: patient, EMS, RN notes reviewed, old records reviewed Mode of arrival: EMS Limitations: no limitations - History of Present Illness Initial comments: This is a 60-year-old male who presents emergency department with past medical history significant for recent stenting of coronary arteries. Patient states this occurred about 2 weeks ago. Patient states she was just discharged from the hospital on Wednesday. He was in for aspiration pneumonia. Patient states she has a history of smoking quit about 5 weeks ago. Patient states this pain started about 1:00 in the morning and it has been intermittent. Patient stated he got considerably worse over the last couple of hours we called EMS. Patient states they gave him a couple nitroglycerin and that he significantly improved his pain. But the pain is now back is bad as it was per patient states in the anterior aspect of his chest at the pressure sensation and it radiates to his upper left chest to his left arm. Patient also states he short of breath. Patient denies any nausea vomiting. Patient states he is short of breath. Patient denies any lightheadedness or dizziness. Patient denies headache patient denies numbness weakness. - Related Data Home Medications Medication Instructions Recorded Confirmed Budesonide [Pulmicort] 0.5 mg INHALATION RT-BID 03/03/16 11/23/20 Aspirin EC [Ecotrin Low Dose] 81 mg PO DAILY 04/01/19 11/23/20 Atorvastatin [Lipitor] 40 mg PO HS 04/07/19 11/23/20 Nitroglycerin Sl Tabs [Nitrostat] 0.4 mg SUBLINGUAL Q5M PRN 04/22/20 11/23/20 Metoprolol Succinate (ER) [Toprol 50 mg PO DAILY 10/30/20 11/23/20 XL] hydroCHLOROthiazide [Hydrodiuril] 12.5 mg PO DAILY 10/30/20 11/23/20 Ipratropium-Albuterol Nebulize 3 ml INHALATION RT-Q6H 10/31/20 11/23/20 [Duoneb 0.5 mg-3 mg/3 ml Soln] Isosorbide Mononitrate ER [Imdur] 60 mg PO DAILY 10/31/20 11/23/20 Montelukast [Singulair] 10 mg PO HS 11/23/20 11/23/20 Previous Rx's Medication Instructions Recorded Clopidogrel [Plavix] 75 mg PO DAILY #30 tab 11/02/20 Famotidine [Pepcid] 20 mg PO DAILY #30 tab 11/26/20 predniSONE 0 mg PO DIRECTED #30 tab 11/26/20 Allergies Allergy/AdvReac Type Severity Reaction Status Date / Time levofloxacin [From Levaquin] AdvReac Nausea & Verified 11/29/20 11:42 Vomiting Review of Systems ROS Statement: Those systems with pertinent positive or pertinent negative responses have been documented in the HPI. ROS Other: All systems not noted in ROS Statement are negative. Past Medical History Past Medical History: Coronary Artery Disease (CAD), COPD, Hyperlipidemia, Hypertension, Myocardial Infarction (SC) Additional Past Medical History / Comment(s): Pt states he has hx of 3 respiratory arrests and was vented, generalized arthritis, Last Myocardial Infarction Date:: History of Any Multi-Drug Resistant Organisms: None Reported Past Surgical History: Adenoidectomy, Heart Catheterization With Stent, Hernia Repair, Joint Replacement, Orthopedic Surgery, Tonsillectomy Additional Past Surgical History / Comment(s): R inguinal hernia repair, L rotator cuff repair, bialteral total knee arthroplasties, R shoulder spur removal, teeth extracted, colonoscopy-normal. third hernia repair, left side, stents x2 2020 Past Anesthesia/Blood Transfusion Reactions: No Reported Reaction Date of Last Stent Placement:: 2018 Past Psychological History: No Psychological Hx Reported Smoking Status: Former smoker Past Alcohol Use History: None Reported Past Drug Use History: None Reported - Past Family History Father Family Medical History: Cancer Additional Family Medical History / Comment(s): Father of lung cancer at the age of 62. He was a smoker. Mother Family Medical History: Cancer, Diabetes Mellitus, Hypertension Additional Family Medical History / Comment(s): Mother at age 78 from brainstem cancer. Brother(s) Additional Family Medical History / Comment(s): Patient's 1 brother with history of AAA. Patient has 4 sisters and he does not know any of their medical history. Patient's 1 son and 1 daughter living. He had one daughter that at 7 weeks old from a congenital heart. General Exam - General Exam Comments Initial Comments: GENERAL: Patient is well-developed and well-nourished. Patient is nontoxic and well- hydrated and is in moderate distress. ENT: Neck is soft and supple. No significant lymphadenopathy is noted. Oropharynx is clear. Moist mucous membranes. Neck has full range of motion without eliciting any pain. EYES: The sclera were anicteric and conjunctiva were pink and moist. Extraocular movements were intact and pupils were equal round and reactive to light. Eyelids were unremarkable. PULMONARY: Unlabored respirations. Good breath sounds bilaterally. No audible rales rhonchi or wheezing was noted. CARDIOVASCULAR: There is a regular rate and rhythm without any murmurs gallops or rubs. ABDOMEN: Soft and nontender with normal bowel sounds. SKIN: Skin is clear with no lesions or rashes and otherwise unremarkable. NEUROLOGIC: Patient is alert and oriented x3. Cranial nerves II through XII are grossly intact. Motor and sensory are also intact. Normal speech, volume and content. Symmetrical smile. MUSCULOSKELETAL: Normal extremities with adequate strength and full range of motion. No lower extremity swelling or edema. No calf tenderness. LYMPHATICS: No significant lymphadenopathy is noted PSYCHIATRIC: Normal psychiatric evaluation. Limitations: no limitations Course Vital Signs 11/29/20 11/29/20 11/29/20 11:39 11:45 12:00 Temperature 98.2 F Pulse Rate 104 H 92 88 Respiratory 22 22 22 Rate Blood Pressure 168/104 145/95 129/100 O2 Sat by Pulse 97 97 97 Oximetry 11/29/20 12:30 Temperature Pulse Rate 73 Respiratory 20 Rate Blood Pressure 126/85 O2 Sat by Pulse 98 Oximetry Medical Decision Making - Medical Decision Making EKG shows normal sinus rhythm at 89 bpm SD interval 142 QRS is 74 QT interval 344 QTC is 418. Patient's EKG shows no ST segment elevation or depression. Patient had more chest pain and more pain in the arm so repeat EKG was done shows normal sinus rhythm at 87 bpm SD interval is on a 40 QRS 72 QT interval 354 QTC is 425 per patient's EKG shows no ST segment elevation or depression. Chest x-ray shows no acute abnormality. I started the patient heparin because he continued to have a little bit of pain. I spoke with Dr. Hernandez she agreed to admit the patient admitted the patient wrote admitting or significant heparin has been Nitropaste on the floor. I consult cardiology. - Lab Data Result diagrams: 11/29/20 11:47 11/29/20 11:47 Lab Results 11/29/20 11/29/20 11/29/20 Range/Units 11:47 11:47 11:47 WBC 15.8 H (3.8-10.6) k/uL RBC 5.03 (4.30-5.90) m/uL Hgb 15.6 (13.0-17.5) gm/dL Hct 45.9 (39.0-53.0) % MCV 91.2 (80.0-100.0) fL MCH 31.0 (25.0-35.0) pg MCHC 34.0 (31.0-37.0) g/dL RDW 14.3 (11.5-15.5) % Plt Count 240 (150-450) k/uL MPV 7.8 Neutrophils % 77 % Lymphocytes % 16 % Monocytes % 4 % Eosinophils % 1 % Basophils % 0 % Neutrophils # 12.1 H (1.3-7.7) k/uL Lymphocytes # 2.5 (1.0-4.8) k/uL Monocytes # 0.7 (0-1.0) k/uL Eosinophils # 0.2 (0-0.7) k/uL Basophils # 0.1 (0-0.2) k/uL PT 9.8 (9.0-12.0) sec INR 0.9 (<1.2) APTT 20.4 L (22.0-30.0) sec D-Dimer 0.35 (<0.60) mg/L FEU Sodium 134 L (137-145) mmol/L Potassium 4.8 (3.5-5.1) mmol/L Chloride 101 (98-107) mmol/L Carbon Dioxide 22 (22-30) mmol/L Anion Gap 11 mmol/L BUN 21 H (9-20) mg/dL Creatinine 0.81 (0.66-1.25) mg/dL Est GFR (CKD-EPI)AfAm >90 (>60 ml/min/1.73 sqM) Est GFR (CKD-EPI)NonAf >90 (>60 ml/min/1.73 sqM) Glucose 114 H (74-99) mg/dL Calcium 9.6 (8.4-10.2) mg/dL Magnesium 2.1 (1.6-2.3) mg/dL Total Bilirubin 0.7 (0.2-1.3) mg/dL AST 23 (17-59) U/L ALT 26 (4-49) U/L Alkaline Phosphatase 118 (38-126) U/L Troponin I (0.000-0.034) ng/mL NT-Pro-B Natriuret Pep pg/mL Total Protein 6.8 (6.3-8.2) g/dL Albumin 4.3 (3.5-5.0) g/dL 11/29/20 11/29/20 Range/Units 11:47 11:47 WBC (3.8-10.6) k/uL RBC (4.30-5.90) m/uL Hgb (13.0-17.5) gm/dL Hct (39.0-53.0) % MCV (80.0-100.0) fL MCH (25.0-35.0) pg MCHC (31.0-37.0) g/dL RDW (11.5-15.5) % Plt Count (150-450) k/uL MPV Neutrophils % % Lymphocytes % % Monocytes % % Eosinophils % % Basophils % % Neutrophils # (1.3-7.7) k/uL Lymphocytes # (1.0-4.8) k/uL Monocytes # (0-1.0) k/uL Eosinophils # (0-0.7) k/uL Basophils # (0-0.2) k/uL PT (9.0-12.0) sec INR (<1.2) APTT (22.0-30.0) sec D-Dimer (<0.60) mg/L FEU Sodium (137-145) mmol/L Potassium (3.5-5.1) mmol/L Chloride (98-107) mmol/L Carbon Dioxide (22-30) mmol/L Anion Gap mmol/L BUN (9-20) mg/dL Creatinine (0.66-1.25) mg/dL Est GFR (CKD-EPI)AfAm (>60 ml/min/1.73 sqM) Est GFR (CKD-EPI)NonAf (>60 ml/min/1.73 sqM) Glucose (74-99) mg/dL Calcium (8.4-10.2) mg/dL Magnesium (1.6-2.3) mg/dL Total Bilirubin (0.2-1.3) mg/dL AST (17-59) U/L ALT (4-49) U/L Alkaline Phosphatase (38-126) U/L Troponin I <0.012 (0.000-0.034) ng/mL NT-Pro-B Natriuret Pep 50 pg/mL Total Protein (6.3-8.2) g/dL Albumin (3.5-5.0) g/dL Critical Care Time Critical Care Time: Yes Total Critical Care Time: 35 Disposition Clinical Impression: Unstable angina pectoris Disposition: ADMITTED IP TO THIS HOSP Referrals: None,Stated [REFERRING] - 1-2 days Time of Disposition: 12:59
[2020-11-29 12:00] LABS: Basophils # (A) 0.1 k/uL (0-0.2); Basophils % (A) 0 %; Eosinophils # (A) 0.2 k/uL (0-0.7); Eosinophils % (A) 1 %; HCT 45.9 % (39.0-53.0); HGB 15.6 gm/dL (13.0-17.5); Lymphocytes # (A) 2.5 k/uL (1.0-4.8); Lymphocytes % (A) 16 %; MCV 91.2 fL (80.0-100.0); Mean Platelet Volume 7.8; Monocytes # (A) 0.7 k/uL (0-1.0); Monocytes % (A) 4 %; Neutrophils # (A) 12.1 k/uL (1.3-7.7); Neutrophils % (A) 77 %; Platelet Count 240 k/uL (150-450); RBC 5.03 m/uL (4.30-5.90); RDW 14.3 % (11.5-15.5); WBC 15.8 k/uL (3.8-10.6)
[2020-11-29] MEDS ORDERED: MORPHINE SULFATE 2 MG/ML SYRINGE IVP STA (12:09)
--- NOTE | 2020-11-29 12:15 | XR ---
EXAMINATION TYPE: XR chest 2V DATE OF EXAM: 11/29/2020 COMPARISON: Chest x-ray 11/23/2020 HISTORY: Chest pain TECHNIQUE: Frontal and lateral views of the chest are obtained. FINDINGS: There is no focal air space opacity, pleural effusion, or pneumothorax seen. The cardiac silhouette size is within normal limits. There are overlying leads. Postop changes are noted to the left shoulder, arthropathy the right acromion clavicular joint. The osseous structures are stable. IMPRESSION: No acute cardiopulmonary process.
[2020-11-29 12:18] LABS: ALT 26 U/L (4-49); AST 23 U/L (17-59); African American GFR (CKD) >90 (>60 ml/min/1.73 sqM); Albumin 4.3 g/dL (3.5-5.0); Alkaline Phosphatase 118 U/L (38-126); Anion Gap 11 mmol/L; Blood Urea Nitrogen 21 mg/dL (9-20); Calcium 9.6 mg/dL (8.4-10.2); Carbon Dioxide 22 mmol/L (22-30); Chloride 101 mmol/L (98-107); Glucose 114 mg/dL (74-99); INR 0.9 (<1.2); Magnesium 2.1 mg/dL (1.6-2.3); Non-African American GFR(CKD) >90 (>60 ml/min/1.73 sqM); Partial Thromboplastin Time 20.4 sec (22.0-30.0); Potassium 4.8 mmol/L (3.5-5.1); Prothrombin Time 9.8 sec (9.0-12.0); Sodium 134 mmol/L (137-145); Total Bilirubin 0.7 mg/dL (0.2-1.3); Total Protein 6.8 g/dL (6.3-8.2)
[2020-11-29] MEDS ORDERED: NITROGLYCERIN OINT 1 INCH/GM PACKET TOPICAL STA (12:37)
[2020-11-29] MEDS ORDERED: HEPARIN SODIUM 1,000 UN/ML (10ML VL) IV ONE (12:57)
[2020-11-29] MEDS ORDERED: HEPARIN SOD,PORK IN 0.45% NACL 25,000 UNIT in 0.45% NACL 1 250ML.BAG IV SCH (13:00)
[2020-11-29] MEDS: NITROGLYCERIN SL TABS 0.4 MG TAB SUBLINGUAL PRN ×2 (14:49→14:58)
[2020-11-29] MEDS ORDERED: MORPHINE SULFATE 4 MG/ML SYRINGE ONE (15:03)
[2020-11-29] MEDS ORDERED: MORPHINE SULFATE 4 MG/ML SYRINGE IVP STA (15:26)
[2020-11-29] MEDS ORDERED: NITROGLYCERIN-D5W PMX 50 MG in DEXTROSE/WATER 1 250ML.BAG IV SCH (15:30)
--- NOTE | 2020-11-29 15:51 | P.EN ---
A- team: Indication: chest pain Arrived on Scene to find: Patient laying in bed Patient seen and examined at bedside. Patient has been admitted for recurrent chest pain. He complains of left-sided chest pain with radiation down into his left arm, lightheadedness, dizziness, nausea, diaphoresis, and shortness of breath. He states that he received 3 nitroglycerin and had a Nitropatch on without any relief. The morphine worked for his pain in the ER. A thorough record review was done. Patient was hospitalized from 10/31/20 through 11/02/20 that point in time had a stent placed to his RCA area did he report presented to the hospital on secondary to chest pain and again underwent cardiac catheterization which showed disease in the LAD witn an FFR was not consistent with ischemia to require stenting as well as a patent stent in the RCA. He then again reported to the ER on 11/08 with complaints of groin pain post-cath. He then was again hospitalized on 11/26 for acute exacerbation of COPD. Today he really presented to the hospital with complaints of chest pain. Initial EKG was nonischemic. Vital signs reviewed General: [Ill-appearing, diaphoretic appears at stated age Derm: warm, dry Head: atraumatic, normocephalic, symmetric Eyes: EOMI, no lid lag, anicteric sclera Mouth: no lip lesion, mucus membranes moist, pain to palpation of left chest wall Cardiovascular: S1S2 reg, no murmur, positive posterior tibial pulse bilateral, Ext: no gross muscle atrophy, no edema, no contractures Neuro: CN II-XI grossly intact, no focal neuro deficits Psych: Alert, oriented, appropriate affect Assessment: Chest pain-unstable angina versus costochondritis History of coronary artery disease with recent stenting in October 2020 History of recent COPD exacerbation Hypertension Dyslipidemia Plan: EKG at bedside reviewed. Heart rate of 80, no significant interval changes. No significant ST-T wave changes. Initial plan was to discontinue nitro paste and start nitroglycerin drip however patient reports that his chest pain had eased to a 3 out of 10 within 2 minutes of receiving 4 mg of IV morphine after not having any response to nitroglycerin. Protonix IV PPI Repeat troponin was recently drawn and is pending. Patient had already received beta octaviano and aspirin Continue with heparin drip Cardiology was aware and had contacted the nurse Ball for patient to be transferred to 3 S. Disposition: Transferred to cardiac 3 S. Notified: Page Dr. Hernandez awaiting call back A Total of 32 minutes of critical care time was spent on the complex care of this patient.
[2020-11-29] MEDS: PANTOPRAZOLE 40 MG/10 ML VIAL IVP SCH (17:04)
[2020-11-29] MEDS ORDERED: NITROGLYCERIN OINT 1 INCH/GM PACKET TOPICAL SCH (18:00)
[2020-11-29] MEDS: NITROGLYCERIN OINT 1 INCH/GM PACKET TOPICAL SCH ×2 (18:14→22:11)
[2020-11-30] MEDS: NITROGLYCERIN SL TABS 0.4 MG TAB SUBLINGUAL PRN (06:22)
[2020-11-30 06:23] VITALS: RESP 19; TEMP 97.8
[2020-11-30] MEDS: NITROGLYCERIN OINT 1 INCH/GM PACKET TOPICAL SCH ×2 (06:27→12:28)
--- NOTE | 2020-11-30 08:15 | P.CRDCN ---
History of Present Illness Consult date: 11/30/20 Chief complaint: Chest pain History of present illness: This is a very pleasant 60-year-old gentleman who informed the office regularly with a past medical history significant for coronary artery disease and prior stenting of the RCA and known intermediate to severe disease involving the LAD was treated medically presented to the hospital complaining of chest discomfort. Unfortunately he continues to have intermittent episodes of chest discomfort quite concerning for angina. Discomfort is a pressure in the middle of the chest without any radiation but it has been resolving with nitroglycerin. It seems to be also exacerbated. The EKG showed sinus rhythm without any significant ST or T-wave abnormalities. The troponin came in to be unremarkable. Last night the 18 was called on him because of chest discomfort. This is a third admission with a chest discomfort since the RCA stenting. At the last heart catheterization we did a fractional flow reserve of the LAD that came in to be admitted 0.8 to and we consider conservative medical approach but since the patient has been experiencing chest discomfort concerning for angina I decided to pursue with a heart catheterization and stenting of the LAD. Past Medical History Past Medical History: Coronary Artery Disease (CAD), COPD, Hyperlipidemia, Hypertension, Myocardial Infarction (LA) Additional Past Medical History / Comment(s): Pt states he has hx of 3 respiratory arrests and was vented, generalized arthritis, Last Myocardial Infarction Date:: History of Any Multi-Drug Resistant Organisms: None Reported Past Surgical History: Adenoidectomy, Heart Catheterization With Stent, Hernia Repair, Joint Replacement, Orthopedic Surgery, Tonsillectomy Additional Past Surgical History / Comment(s): R inguinal hernia repair, L rotator cuff repair, bialteral total knee arthroplasties, R shoulder spur christiano randal, teeth extracted, colonoscopy-normal. third hernia repair, left side, stents x2 2020 Past Anesthesia/Blood Transfusion Reactions: No Reported Reaction Date of Last Stent Placement:: 2018 Past Psychological History: No Psychological Hx Reported Additional Psychological History / Comment(s): He uses no assistive devices. Smoking Status: Former smoker Past Alcohol Use History: None Reported Additional Past Alcohol Use History / Comment(s): patient quit smoking in 12/2018, but has restarted. He uses marijuana (edilbel) daily for pain. He is recovering alcoholic and he drinks alcohol rarely at this point. He has history of illicit drug use including Phen-Fen a means, LSD, cocaine, heroin and quit all of this 9 years ago. 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 Past Drug Use History: None Reported Additional Drug Use History / Comment(s): He states in the past he has used marijuana, heroin, crystal meth, cocaine and crack but none of those drugs for about 9 yrs. - Past Family History Father Family Medical History: Cancer Additional Family Medical History / Comment(s): Father of lung cancer at the age of 62. He was a smoker. Mother Family Medical History: Cancer, Diabetes Mellitus, Hypertension Additional Family Medical History / Comment(s): Mother at age 78 from brainstem cancer. Brother(s) Additional Family Medical History / Comment(s): Patient's 1 brother with history of AAA. Patient has 4 sisters and he does not know any of their medical history. Patient's 1 son and 1 daughter living. He had one daughter that at 7 weeks old from a congenital heart. Medications and Allergies Home Medications Medication Instructions Recorded Confirmed Type Budesonide [Pulmicort] 0.5 mg INHALATION RT-BID 03/03/16 11/29/20 History Aspirin EC [Ecotrin Low Dose] 81 mg PO DAILY 04/01/19 11/29/20 History Atorvastatin [Lipitor] 40 mg PO HS 04/07/19 11/29/20 History Nitroglycerin Sl Tabs [Nitrostat] 0.4 mg SL Q5M PRN 04/22/20 11/29/20 History Metoprolol Succinate (ER) [Toprol 50 mg PO DAILY 10/30/20 11/29/20 History XL] hydroCHLOROthiazide [Hydrodiuril] 12.5 mg PO DAILY 10/30/20 11/29/20 History Ipratropium-Albuterol Nebulize 3 ml INHALATION RT-QID 10/31/20 11/29/20 History [Duoneb 0.5 mg-3 mg/3 ml Soln] Isosorbide Mononitrate ER [Imdur] 60 mg PO DAILY 10/31/20 11/29/20 History Clopidogrel [Plavix] 75 mg PO DAILY #30 tab 11/02/20 11/29/20 Rx Montelukast [Singulair] 10 mg PO HS 11/23/20 11/29/20 History Famotidine [Pepcid] 20 mg PO DAILY #30 tab 11/26/20 11/29/20 Rx Fluocinolone Acetonide Oil 5 drops BOTH EARS BID PRN 11/29/20 11/29/20 History [Dermotic] predniSONE See Taper PO DIRECTED 11/29/20 11/29/20 History Allergies Allergy/AdvReac Type Severity Reaction Status Date / Time levofloxacin [From Levaquin] AdvReac Nausea & Verified 11/29/20 13:25 Vomiting Physical Exam Vitals: Vital Signs Temp Pulse Pulse Resp BP BP Pulse Ox 11/30/20 06:23 97.8 F 72 19 120/70 97 11/30/20 02:00 98.7 F 77 18 136/82 97 11/29/20 20:00 98.7 F 83 18 153/87 97 11/29/20 14:35 97.9 F 69 18 149/82 97 11/29/20 14:22 82 20 129/89 96 11/29/20 13:39 98.0 F 64 18 119/68 96 11/29/20 12:30 73 20 126/85 98 11/29/20 12:00 88 22 129/100 97 11/29/20 11:45 92 22 145/95 97 11/29/20 11:39 98.2 F 104 H 22 168/104 97 Intake and Output 11/29/20 11/30/20 11/30/20 22:59 06:59 14:59 Intake Total 174.848 109.302 Output Total 800 800 Balance -625.152 -690.698 Intake: Intake, IV Titration 74.848 109.302 Amount Heparin Sod,Pork in 0.45% 74.848 109.302 NaCl 25,000 unit In 0.45 % NaCl 1 250ml.bag @ 10.5 UNITS/KG/HR 10.002 mls/ hr IV .Q24H [facility] Rx#: [id number] Oral 100 Output: Urine 800 800 Other: Voiding Method Urinal Urinal # Voids 0 2 - Constitutional General appearance: no acute distress - Respiratory Respiratory: bilateral: CTA - Cardiovascular Rhythm: regular Heart sounds: normal: S1, S2 Results 11/29/20 11:47 11/29/20 11:47 Cardiac Enzymes 11/29/20 11/29/20 11/29/20 Range/Units 11:47 11:47 15:03 AST 23 (17-59) U/L Troponin I <0.012 <0.012 (0.000-0.034) ng/mL 11/29/20 Range/Units 17:25 AST (17-59) U/L Troponin I <0.012 (0.000-0.034) ng/mL Coagulation 11/29/20 11/29/20 11/30/20 Range/Units 11:47 21:08 05:03 PT 9.8 (9.0-12.0) sec APTT 20.4 L 33.9 H 49.0 H (22.0-30.0) sec CBC 11/29/20 Range/Units 11:47 WBC 15.8 H (3.8-10.6) k/uL RBC 5.03 (4.30-5.90) m/uL Hgb 15.6 (13.0-17.5) gm/dL Hct 45.9 (39.0-53.0) % Plt Count 240 (150-450) k/uL Comprehensive Metabolic Panel 11/29/20 Range/Units 11:47 Sodium 134 L (137-145) mmol/L Potassium 4.8 (3.5-5.1) mmol/L Chloride 101 (98-107) mmol/L Carbon Dioxide 22 (22-30) mmol/L BUN 21 H (9-20) mg/dL Creatinine 0.81 (0.66-1.25) mg/dL Glucose 114 H (74-99) mg/dL Calcium 9.6 (8.4-10.2) mg/dL AST 23 (17-59) U/L ALT 26 (4-49) U/L Alkaline Phosphatase 118 (38-126) U/L Total Protein 6.8 (6.3-8.2) g/dL Albumin 4.3 (3.5-5.0) g/dL Current Medications Generic Name Dose Route Start Last Admin Trade Name Freq PRN Reason Stop Dose Admin Aspirin 325 mg 11/30/20 09:00 Aspirin 325 Mg Tab PO DAILY PRASHANT Heparin Sodium/Sodium Chloride 250 mls @ 10.002 mls/hr 11/29/20 13:00 11/30/20 06:27 25,000 unit/ Sodium Chloride IV 13.5 units/kg/hr .Q24H [facility] 12.859 mls/hr Titration Protocol 10.5 UNITS/KG/HR Nitroglycerin 0.4 mg 11/29/20 12:59 11/30/20 06:22 Nitroglycerin Sl Tabs 0.4 Mg Tab SUBLINGUAL 0.4 mg Q5M PRN Administration Chest Pain Nitroglycerin 1 inch 11/29/20 18:00 11/30/20 06:27 Nitroglycerin Oint 1 Inch/Gm Packet TOPICAL Not Given Q6HR [facility] Pantoprazole Sodium 40 mg 11/29/20 15:45 11/29/20 17:04 Pantoprazole 40 Mg/10 Ml Vial IVP 40 mg DAILY PRASHANT Administration Intake and Output 11/29/20 11/30/20 11/30/20 22:59 06:59 14:59 Intake Total 174.848 109.302 Output Total 800 800 Balance -625.152 -690.698 Intake: Intake, IV Titration 74.848 109.302 Amount Heparin Sod,Pork in 0.45% 74.848 109.302 NaCl 25,000 unit In 0.45 % NaCl 1 250ml.bag @ 10.5 UNITS/KG/HR 10.002 mls/ hr IV .Q24H [facility] Rx#: [id number] Oral 100 Output: Urine 800 800 Other: Voiding Method Urinal Urinal # Voids 0 2 11/29/20 11:47 11/29/20 11:47 Assessment and Plan Assessment: Assessment #1 chest discomfort concerning for angina #2 coronary artery disease #3 hypertension #4 dyslipidemia Plan #1 proceed with coronary angiogram and stenting of the LAD #2 the procedure in details was explained to the patient #3 follow-up with the patient
[2020-11-30] MEDS ORDERED: ASPIRIN 325 MG TAB PO SCH (09:00)
[2020-11-30] MEDS: PANTOPRAZOLE 40 MG/10 ML VIAL IVP SCH (09:16)
[2020-11-30] MEDS ORDERED: LIDOCAINE 1% INJ 10MG/ML (20 ML MDV) ONE (10:44)
[2020-11-30] MEDS ORDERED: VERAPAMIL 2.5 MG/ML 2 ML AMP ONE (10:44)
[2020-11-30] MEDS ORDERED: IV FLUID CONTINUATION 1,000 ML IV ONE (10:46)
[2020-11-30] MEDS ORDERED: HEPARIN SODIUM 1,000 UN/ML (10ML VL) ONE (10:52)
[2020-11-30] MEDS ORDERED: MIDAZOLAM 2 MG/2 ML VIAL IVP ONE ×2 (11:06)
[2020-11-30] MEDS ORDERED: LIDOCAINE 1% INJ 10MG/ML (20 ML MDV) SQ ONE (11:08)
[2020-11-30] MEDS: VERAPAMIL SYRINGE (5 MG/10 ML) INTRAARTER ONE ×2 (11:10→11:29)
[2020-11-30] MEDS ORDERED: HEPARIN SODIUM 1,000 UN/ML (10ML VL) IV ONE (11:17)
[2020-11-30] MEDS ORDERED: IOPAMIDOL-370 125ML BTL INJ ONE (11:29)
[2020-11-30] MEDS ORDERED: RX INFO: IV CONTRAST WAS GIVEN 1 EACH MISC MISCELLANE PRN (11:33)
[2020-11-30] MEDS ORDERED: SODIUM CHLORIDE 0.9% 1,000 ML IV SCH (11:45)
--- NOTE | 2020-11-30 11:54 | CC ---
CARDIAC CATHETERIZATION REPORT DATE OF SERVICE: November 30. PERFORMING PHYSICIAN: Idris De Luna MD. PROCEDURE PERFORMED: 1. Selective right and left coronary angiogram. 2. Left heart catheterization. INDICATION: Chest discomfort concerning for angina in this 60-year-old gentleman who is known to have CAD and known to have stenting of the RCA and intermediate to severe disease involving the mid LAD. APPROACH: Right radial artery. COMPLICATION: None. LEVEL OF SEDATION: Moderate with sedation length of 23 minutes. PROCEDURE DESCRIPTION: After obtaining an informed consent, the patient was brought to the cardiac oil laboratory analyst. The right radial artery was cannulated using micropuncture technique, the micropuncture wire passed easily. Then I placed a 6-Ind[place] sheath in the right radial artery. I did selective right and left coronary angiogram using JR4 and JL3 catheters. Left heart catheterization was performed using the JR4 catheter which crossed the aortic valve. Then I did pullback across the aortic valve. Please note that the patient was given a total of 8000 units of heparin at the beginning of the procedure. The procedure was completed without any complication. SELECTIVE CORONARY ANGIOGRAM: 1. The RCA is a large caliber vessel. It is a dominant vessel. The RCA is stented in the midportion and the stent is patent. 2. The left main is angiographically normal. It bifurcates into LCX and LAD. 3. The LCX is a large caliber vessel it is a nondominant vessel and appeared to have mild disease only. 4. The LAD is a large caliber vessel. The mid LAD lesion appeared to be resolved and the patient seems to have a component of coronary vasospasm. 5. HEMODYNAMICS: The LVEDP was about 10 to 12 mmHg without significant gradient across aortic valve. CONCLUSION: 1. Patent stent in the mid right coronary artery. 2. Coronary vasospasm. POSTPROCEDURE MANAGEMENT: Medical treatment and follow up with the patient. MMODL / IJN: [id number] /
[2020-11-30 13:55] LABS: Chol/HDL Ratio 3.5; LDL Cholesterol,Calculated 77.4 mg/dL (0.0-131.0); VLDL Calculation 22.6 mg/dL (5.00-40.00)
[2020-11-30 16:53] VITALS: BP 133/80; PULSE 64
--- NOTE | 2020-11-30 17:32 | P.HPIM ---
History of Present Illness H&P Date: 11/30/20 This document provide both an H&P as a discharge summary This is a 60-year-old male patient, with past medical history of non-ST elevated myocardial infarction with heart catheterization and stent placement in 2019, COPD with remote history of tobacco use, hypertension, and hyperlipidemia. Patient was recently seen at [facility] and underwent heart catheterization there that revealed severe disease involving the mid right coronary artery and underwent successful stenting to the RCA. He then presented back to the emergency department with chest discomfort and underwent another catheterization with Dr. De Luna on 11/05/20, which revealed patent stent to the mid RCA and patent acute marginal branch intermediate lesion involving the mid LAD with aggressive medical management and was discharged to follow-up as outpatient. On 11/08 he returned to the emergency room per cardiology's instructions to rule out a pseudoaneurysm of the catheterization site which was negative. He was last admitted from ou facility, November 25, for COPD exacerbation, and was prescribed tapering oral prednisone, follows with Dr. Hudson.. He was not seen by cardiology during the last visit for this COPD. He seen with chest discomfort,, and last night, he had an 18 approached him for medical management of his chest pain, Dr. De Luna has seen the patient today, with recommendations for another repeat cardiac cath. Cardiac cath was performed 11/30/2020, by Dr. De Luna using the right radial artery, for which the RCA is a large cobble caliber, dominant with stents that is open, left main is normal, circumflex normal, LAD is unremarkable, there was a mid LAD lesion that appeared to have resolved, completion for this study was coronary vasospasm, with patent stent to the right mid coronary artery. Patient was cleared for discharge, with adjustments of medication, to include sublingual nitro when necessary, be as a bite was decreased to 30 mg daily, from a previous dose of 60 mg by a administrative library assistant. Patient is to finish the tapering oral prednisone, and to take PPI or Pepcid. Review of Systems Constitutional: Reports as per HPI, Denies anorexia, Denies chills, Denies chronic headaches, Denies chronic pain, Denies daytime sleepiness, Denies fatigue, Denies fever, Denies lethargy, Denies malaise, Denies night sweats, Denies poor appetite, Denies sweats, Denies weakness, Denies weight gain, Denies weight loss Ears, nose, mouth and throat: Reports as per HPI Cardiovascular: Reports as per HPI, Reports chest pain Gastrointestinal: Reports as per HPI, Denies abdominal pain, Denies belching, Denies bloating, Denies BRBPR, Denies change in bowel habits, Denies coffee ground emesis, Denies constipation, Denies diarrhea, Denies dyspepsia, Denies early satiety, Denies excessive gas, Denies heartburn, Denies hematemesis, Denies hematochezia, Denies indigestion, Denies jaundice, Denies lactose intolerance, Denies loss of appetite, Denies melena, Denies nausea, Denies vomi ting Genitourinary: Reports as per HPI, Denies decreased libido, Denies difficulties fathering child, Denies discharge, Denies dysuria, Denies erectile dysfunction, Denies flank pain, Denies genital pain, Denies genital sores, Denies hematuria, Denies impotence, Denies incontinence, Denies kidney stones, Denies nocturia, Denies polyuria, Denies testicular lump, Denies testicular pain, Denies urinary frequency, Denies urinary hesitancy, Denies urinary retention Integumentary: Reports as per HPI Neurological: Reports as per HPI, Denies aphasia, Denies ataxia, Denies balance difficulties, Denies burning pain, Denies change in mentation, Denies change in smell/taste, Denies change in speech, Denies confusion, Denies convulsions, Denies double vision, Denies gait dysfunction, Denies head injury, Denies headaches, Denies hearing difficulties, Denies lack of coordination, Denies loss of vision, Denies memory loss, Denies migraines, Denies motor disturbance, Denies numbness, Denies paralysis, Denies paresthesias, Denies seizures, Denies sensory deficit, Denies spasticity, Denies syncope, Denies tic, Denies tingling, Denies transient paralysis, Denies tremors, Denies vertigo, Denies weakness, Denies visual changes Psychiatric: Reports as per HPI, Denies anhedonia, Denies anxiety, Denies a nxiety attacks, Denies change in appetite, Denies change in libido, Denies change in sleep habits, Denies confusion, Denies depression, Denies difficulty concentrating, Denies disorientation, Denies hallucinations, Denies hopelessness, Denies hypersomnia, Denies insomnia, Denies irritability, Denies memory loss, Denies mood swings, Denies paranoia, Denies sadness/tearfulness, Denies sleep disturbances, Denies suicidal ideation Endocrine: Reports as per HPI Hematologic/Lymphatic: Reports as per HPI Allergic/Immunologic: Reports as per HPI Past Medical History Past Medical History: Coronary Artery Disease (CAD), COPD, Hyperlipidemia, Hypertension, Myocardial Infarction ([place]) Additional Past Medical History / Comment(s): Pt states he has hx of 3 respirat ory arrests and was vented, generalized arthritis, Last Myocardial Infarction Date:: History of Any Multi-Drug Resistant Organisms: None Reported Past Surgical History: Adenoidectomy, Heart Catheterization With Stent, Hernia Repair, Joint Replacement, Orthopedic Surgery, Tonsillectomy Additional Past Surgical History / Comment(s): R inguinal hernia repair, L rotator cuff repair, bialteral total knee arthroplasties, R shoulder spur removal, teeth extracted, colonoscopy-normal. third hernia repair, left side, stents x2 2020 Past Anesthesia/Blood Transfusion Reactions: No Reported Reaction Date of Last Stent Placement:: 2018 Past Psychological History: No Psychological Hx Reported Additional Psychological History / Comment(s): He uses no assistive devices. Smoking Status: Former smoker Past Alcohol Use History: None Reported Additional Past Alcohol Use History / Comment(s): patient quit smoking in 12/2018, but has restarted. He uses marijuana (edilbel) daily for pain. He is recovering alcoholic and he drinks alcohol rarely at this point. He has history of illicit drug use including Phen-Fen a means, LSD, cocaine, heroin and quit all of this 9 years ago. 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 Past Drug Use History: None Reported Additional Drug Use History / Comment(s): He states in the past he has used marijuana, heroin, crystal meth, cocaine and crack but none of those drugs for about 9 yrs. - Past Family History Father Family Medical History: Cancer Additional Family Medical History / Comment(s): Father of lung cancer at the age of 62. He was a smoker. Mother Family Medical History: Cancer, Diabetes Mellitus, Hypertension Additional Family Medical History / Comment(s): Mother at age 78 from brainstem cancer. Brother(s) Additional Family Medical History / Comment(s): Patient's 1 brother with history of AAA. Patient has 4 sisters and he does not know any of their medical history. Patient's 1 son and 1 daughter living. He had one daughter that at 7 weeks old from a congenital heart. Medications and Allergies Home Medications Medication Instructions Recorded Confirmed Type Budesonide [Pulmicort] 0.5 mg INHALATION RT-BID 03/03/16 11/29/20 History Atorvastatin [Lipitor] 40 mg PO HS 04/07/19 11/29/20 History Metoprolol Succinate (ER) [Toprol 50 mg PO DAILY 10/30/20 11/29/20 History XL] hydroCHLOROthiazide [Hydrodiuril] 12.5 mg PO DAILY 10/30/20 11/29/20 History Ipratropium-Albuterol Nebulize 3 ml INHALATION RT-QID 10/31/20 11/29/20 History [Duoneb 0.5 mg-3 mg/3 ml Soln] Clopidogrel [Plavix] 75 mg PO DAILY #30 tab 11/02/20 11/29/20 Rx Montelukast [Singulair] 10 mg PO HS 11/23/20 11/29/20 History Famotidine [Pepcid] 20 mg PO DAILY #30 tab 11/26/20 11/29/20 Rx Fluocinolone Acetonide Oil 5 drops BOTH EARS BID PRN 11/29/20 11/29/20 History [Dermotic] predniSONE See Taper PO DIRECTED 11/29/20 11/29/20 History Aspirin 325 mg PO DAILY tab 11/30/20 Rx Isosorbide Mononitrate ER [Imdur] 30 mg PO DAILY #30 tablet 11/30/20 Rx Nitroglycerin Sl Tabs [Nitrostat] 0.4 mg SL Q5M PRN #25 tab 11/30/20 Rx Allergies Allergy/AdvReac Type Severity Reaction Status Date / Time levofloxacin [From Levaquin] AdvReac Nausea & Verified 11/29/20 13:25 Vomiting Physical Exam Vitals: Vital Signs Temp Pulse Pulse Resp BP BP Pulse Ox 11/30/20 08:18 98 11/30/20 06:23 97.8 F 72 19 120/70 97 11/30/20 02:00 98.7 F 77 18 136/82 97 11/29/20 20:00 98.7 F 83 18 153/87 97 11/29/20 14:35 97.9 F 69 18 149/82 97 11/29/20 14:22 82 20 129/89 96 11/29/20 13:39 98.0 F 64 18 119/68 96 11/29/20 12:30 73 20 126/85 98 11/29/20 12:00 88 22 129/100 97 11/29/20 11:45 92 22 145/95 97 11/29/20 11:39 98.2 F 104 H 22 168/104 97 Intake and Output 11/29/20 11/30/20 11/30/20 22:59 06:59 14:59 Intake Total 174.848 109.302 Output Total 800 800 Balance -625.152 -690.698 Intake: Intake, IV Titration 74.848 109.302 Amount Heparin Sod,Pork in 0.45% 74.848 109.302 NaCl 25,000 unit In 0.45 % NaCl 1 250ml.bag @ 10.5 UNITS/KG/HR 10.002 mls/ hr IV .Q24H [facility] Rx#: [id number] Oral 100 Output: Urine 800 800 Other: Voiding Method Urinal Urinal # Voids 0 2 - Constitutional General appearance: cooperative, no acute distress - EENT Eyes: EOMI, PERRLA ENT: NA/AT, normal oropharynx - Respiratory Respiratory: bilateral: CTA, negative: diminished - Cardiovascular Rhythm: regular Heart sounds: normal: S1, S2 Abnormal Heart Sounds: no systolic murmur, no diastolic murmur, no rub, no S3 Gallop, no S4 Gallop, no click, no other - Gastrointestinal General gastrointestinal: normal bowel sounds, soft - Integumentary Integumentary: normal, normal turgor - Neurologic Neurologic: CNII-XII intact - Musculoskeletal Musculoskeletal: gait normal, strength equal bilaterally - Psychiatric Psychiatric: A&O x's 3, appropriate affect Results CBC & Chem 7: 11/29/20 11:47 11/29/20 11:47 Labs: Abnormal Lab Results - Last 24 Hours (Table) 11/29/20 11/29/20 11/29/20 Range/Units 11:47 11:47 11:47 WBC 15.8 H (3.8-10.6) k/uL Neutrophils # 12.1 H (1.3-7.7) k/uL APTT 20.4 L (22.0-30.0) sec Sodium 134 L (137-145) mmol/L BUN 21 H (9-20) mg/dL Glucose 114 H (74-99) mg/dL 11/29/20 11/30/20 Range/Units 21:08 05:03 WBC (3.8-10.6) k/uL Neutrophils # (1.3-7.7) k/uL APTT 33.9 H 49.0 H (22.0-30.0) sec Sodium (137-145) mmol/L BUN (9-20) mg/dL Glucose (74-99) mg/dL Laboratory Results WBC 15.8 k/uL (3.8-10.6) H 11/29/20 11:47 RBC 5.03 m/uL (4.30-5.90) 11/29/20 11:47 Hgb 15.6 gm/dL (13.0-17.5) 11/29/20 11:47 Hct 45.9 % (39.0-53.0) 11/29/20 11:47 MCV 91.2 fL (80.0-100.0) 11/29/20 11:47 MCH 31.0 pg (25.0-35.0) 11/29/20 11:47 MCHC 34.0 g/dL (31.0-37.0) 11/29/20 11:47 RDW 14.3 % (11.5-15.5) 11/29/20 11:47 Plt Count 240 k/uL (150-450) 11/29/20 11:47 MPV 7.8 11/29/20 11:47 Neutrophils % 77 % 11/29/20 11:47 Lymphocytes % 16 % 11/29/20 11:47 Monocytes % 4 % 11/29/20 11:47 Eosinophils % 1 % 11/29/20 11:47 Basophils % 0 % 11/29/20 11:47 Neutrophils # 12.1 k/uL (1.3-7.7) H 11/29/20 11:47 Lymphocytes # 2.5 k/uL (1.0-4.8) 11/29/20 11:47 Monocytes # 0.7 k/uL (0-1.0) 11/29/20 11:47 Eosinophils # 0.2 k/uL (0-0.7) 11/29/20 11:47 Basophils # 0.1 k/uL (0-0.2) 11/29/20 11:47 PT 9.8 sec (9.0-12.0) 11/29/20 11:47 INR 0.9 (<1.2) 11/29/20 11:47 APTT 49.0 sec (22.0-30.0) H 11/30/20 05:03 D-Dimer 0.35 mg/L FEU (<0.60) 11/29/20 11:47 Sodium 134 mmol/L (137-145) L 11/29/20 11:47 Potassium 4.8 mmol/L (3.5-5.1) 11/29/20 11:47 Chloride 101 mmol/L (98-107) 11/29/20 11:47 Carbon Dioxide 22 mmol/L (22-30) 11/29/20 11:47 Anion Gap 11 mmol/L 11/29/20 11:47 BUN 21 mg/dL (9-20) H 11/29/20 11:47 Creatinine 0.81 mg/dL (0.66-1.25) 11/29/20 11:47 Est GFR (CKD-EPI)AfAm >90 (>60 ml/min/1.73 sqM) 11/29/20 11:47 Est GFR (CKD-EPI)NonAf >90 (>60 ml/min/1.73 sqM) 11/29/20 11:47 Glucose 114 mg/dL (74-99) H 11/29/20 11:47 Calcium 9.6 mg/dL (8.4-10.2) 11/29/20 11:47 Magnesium 2.1 mg/dL (1.6-2.3) 11/29/20 11:47 Total Bilirubin 0.7 mg/dL (0.2-1.3) 11/29/20 11:47 AST 23 U/L (17-59) 11/29/20 11:47 ALT 26 U/L (4-49) 11/29/20 11:47 Alkaline Phosphatase 118 U/L (38-126) 11/29/20 11:47 Troponin I <0.012 ng/mL (0.000-0.034) 11/29/20 17:25 NT-Pro-B Natriuret Pep 50 pg/mL 11/29/20 11:47 Total Protein 6.8 g/dL (6.3-8.2) 11/29/20 11:47 Albumin 4.3 g/dL (3.5-5.0) 11/29/20 11:47 Triglycerides 113.0 mg/dL (0.0-149.0) 11/30/20 05:02 Cholesterol 140 mg/dL (0-200) 11/30/20 05:02 LDL Cholesterol, Calc 77.4 mg/dL (0.0-131.0) 11/30/20 05:02 VLDL Cholesterol, Calc 22.60 mg/dL (5.00-40.00) 11/30/20 05:02 HDL Cholesterol 40.0 mg/dL (40.0-60.0) 11/30/20 05:02 Cholesterol/HDL Ratio 3.50 11/30/20 05:02 Procalcitonin 0.07 ng/mL (0.02-0.09) 11/29/20 11:47 Assessment and Plan Plan: 1. 1. Unstable angina, with known and STEMI, patient underwent a cardiac cath today with concerns for vasospasms against acute occlusion, troponins were negative 3, Dr. De Luna performed cardiac cath on 11/30/2020, that shows patent stent in the right coronary, and coronary spasms. Patient was discharged on nitroglycerin sublingual when necessary, Imdur 30 mg daily, Anusol home medications include aspirin and statins, and is in addition 2COPD, chest x-ray was negative. To finish oral prednisone as tapered from home Pulmicort 0.5 mg twice daily. 2. Recent Non-ST elevated myocardial infarction status post stent RCA. Continue aspirin 81 mg daily, Lipitor 40 mg daily, Plavix 75 mg daily, Imdur 60 mg daily, Toprol-XL 50 mg daily. Cardiology consult appreciated. 3. Hypertension. Continue hydrochlorothiazide 12.5 mg daily, Toprol-XL, Imdur. 4. Hyperlipidemia. Continue atorvastatin 40 mg at bedtime 5. GI prophylaxis. On Pepcid 6. DVT prophylaxis. SADIE orta with early ambulation CODE STATUS: No code Discharge Medication List Budesonide [Pulmicort] 0.5 mg INHALATION RT-BID 03/03/16 [History] Atorvastatin [Lipitor] 40 mg PO HS 04/07/19 [History] Metoprolol Succinate (ER) [Toprol XL] 50 mg PO DAILY 10/30/20 [History] hydroCHLOROthiazide [Hydrodiuril] 12.5 mg PO DAILY 10/30/20 [History] Ipratropium-Albuterol Nebulize [Duoneb 0.5 mg-3 mg/3 ml Soln] 3 ml INHALATION RT-QID 10/31/20 [History] Clopidogrel [Plavix] 75 mg PO DAILY #30 tab 11/02/20 [Rx] Montelukast [Singulair] 10 mg PO HS 11/23/20 [History] Famotidine [Pepcid] 20 mg PO DAILY #30 tab 11/26/20 [Rx] Fluocinolone Acetonide Oil [Dermotic] 5 drops BOTH EARS BID PRN 11/29/20 [History] predniSONE See Taper PO DIRECTED 11/29/20 [History] Aspirin 325 mg PO DAILY tab 11/30/20 [Rx] Isosorbide Mononitrate ER [Imdur] 30 mg PO DAILY #30 tablet 11/30/20 [Rx] Nitroglycerin Sl Tabs [Nitrostat] 0.4 mg SL Q5M PRN #25 tab 11/30/20 [Rx]
[2020-12-01] MEDS ORDERED: PANTOPRAZOLE 40 MG TABLET PO SCH (07:30)
[2020-12-01] MEDS ORDERED: ISOSORBIDE MONONITRATE ER 30 MG TAB.ER.24H PO SCH (09:00)
== END 2020-11-30 18:48 | disposition home or self-care (01) ==
LOC: EC 11:37 → 6NMEDSUR 13:02 → 3SCARD 15:45
PROVIDERS: ADMIT Family Medicine; ATTEND Family Medicine
DX: I25.110 Atherosclerotic heart disease of native coronary artery with unstable angina pectoris (principal); I25.111 Atherosclerotic heart disease of native coronary artery with angina pectoris with documented spasm; I25.84 Coronary atherosclerosis due to calcified coronary lesion; J44.9 Chronic obstructive pulmonary disease, unspecified; I25.2 Old myocardial infarction; I10 Essential (primary) hypertension; E78.5 Hyperlipidemia, unspecified; F12.90 Cannabis use, unspecified, uncomplicated; F10.21 Alcohol dependence, in remission; M19.90 Unspecified osteoarthritis, unspecified site; K40.90 Unilateral inguinal hernia, without obstruction or gangrene, not specified as recurrent; Z79.82 Long term (current) use of aspirin; Z79.899 Other long term (current) drug therapy; Z88.1 Allergy status to other antibiotic agents; Z79.02 Long term (current) use of antithrombotics/antiplatelets; Z87.891 Personal history of nicotine dependence; Z77.090 Contact with and (suspected) exposure to asbestos; Z95.5 Presence of coronary angioplasty implant and graft; Z82.49 Family history of ischemic heart disease and other diseases of the circulatory system; Z80.8 Family history of malignant neoplasm of other organs or systems; Z80.1 Family history of malignant neoplasm of trachea, bronchus and lung; Z83.3 Family history of diabetes mellitus
CPT/HCPCS: 93458; 99291; 96376; 96365; 96366 ×2; 96375 ×2; 93005 ×2; 96361; 36415; 94760; 85379; 83880; 80061; 80053; 83735; 84484; 85025; 85610; 85730 ×2; 84145; 71046; G0378 ×2; C1887 ×2; C1894; C1769; J2250; J2270 ×2; J2001; J1644 ×3; C9113 ×2; Q9967

== ENCOUNTER 2020-12-12 22:13 | Emergency (ER) | payer MEDICARE, OTHER ==
[2020-12-12] MEDS ORDERED: MORPHINE SULFATE 4 MG/ML SYRINGE IV STA (22:48)
[2020-12-12] MEDS ORDERED: DIAZEPAM 5 MG/ML 2 ML INJ IVP STA (22:48)
[2020-12-12] MEDS ORDERED: KETOROLAC 15 MG/ML 1 ML VIAL IVP STA (22:48)
[2020-12-12] MEDS ORDERED: SODIUM CHLORIDE 0.9% 1,000 ML IV STA ×2 (22:48)
--- NOTE | 2020-12-12 22:52 | ED ---
Chest Pain HPI - General Chief Complaint: Chest Pain Stated Complaint: Body Cramps,ELISEO Time Seen by Provider: 12/12/20 22:25 Source: patient, RN notes reviewed, old records reviewed Mode of arrival: wheelchair Limitations: no limitations - History of Present Illness Initial Comments: This is a 60-year-old male to the emergency room today. He is presented today for evaluation of chest pain. Chest pain bodyaches body pains. Shaking of his arms and legs. Patient has history of recent recurrent multiple emergency department visits with inpatient hospitalization. Patient states upon arrival to the ER he is feeling improved. Patient does have pain all over with some spasms but does state that he feels like he is concerned will be to his chest he does admit to anxiety over the secondary to recent heart history MD Complaint: chest pain, other (Bodyaches pains and spasms) -: hour(s) Onset: during rest Pain Location: substernal, left chest, right chest Pain Radiation: RUE, LUE, abdomen Severity: moderate Quality: tightness, aching Consistency: intermittent Improves With: nothing Worsens With: nothing Context: recent illness Anginal Symptoms: dyspnea, sense of impending doom Other Symptoms: palpitations Treatments Prior to Arrival: none - Related Data Home Medications Medication Instructions Recorded Confirmed Budesonide [Pulmicort] 0.5 mg INHALATION RT-BID 03/03/16 11/29/20 Atorvastatin [Lipitor] 40 mg PO HS 04/07/19 11/29/20 Metoprolol Succinate (ER) [Toprol 50 mg PO DAILY 10/30/20 11/29/20 XL] hydroCHLOROthiazide [Hydrodiuril] 12.5 mg PO DAILY 10/30/20 11/29/20 Ipratropium-Albuterol Nebulize 3 ml INHALATION RT-QID 10/31/20 11/29/20 [Duoneb 0.5 mg-3 mg/3 ml Soln] Montelukast [Singulair] 10 mg PO HS 11/23/20 11/29/20 Fluocinolone Acetonide Oil 5 drops BOTH EARS BID PRN 11/29/20 11/29/20 [Dermotic] predniSONE See Taper PO DIRECTED 11/29/20 11/29/20 Previous Rx's Medication Instructions Recorded Clopidogrel [Plavix] 75 mg PO DAILY #30 tab 11/02/20 Famotidine [Pepcid] 20 mg PO DAILY #30 tab 11/26/20 Aspirin 325 mg PO DAILY tab 11/30/20 Isosorbide Mononitrate ER [Imdur] 30 mg PO DAILY #30 tablet 11/30/20 Nitroglycerin Sl Tabs [Nitrostat] 0.4 mg SL Q5M PRN #25 tab 11/30/20 Allergies Allergy/AdvReac Type Severity Reaction Status Date / Time levofloxacin [From Levaquin] AdvReac Nausea & Verified 11/29/20 13:25 Vomiting Review of Systems ROS Statement: Those systems with pertinent positive or pertinent negative responses have been documented in the HPI. ROS Other: All systems not noted in ROS Statement are negative. EKG Findings - EKG Comments: EKG Findings:: EKG shows sinus a 93 W[place] 132 QRS 80 QTC 430 Past Medical History Past Medical History: Coronary Artery Disease (CAD), COPD, Hyperlipidemia, Hypertension, Myocardial Infarction ([place]) Additional Past Medical History / Comment(s): Pt states he has hx of 3 respirat ory arrests and was vented, generalized arthritis, Last Myocardial Infarction Date:: History of Any Multi-Drug Resistant Organisms: None Reported Past Surgical History: Adenoidectomy, Heart Catheterization With Stent, Hernia Repair, Joint Replacement, Orthopedic Surgery, Tonsillectomy Additional Past Surgical History / Comment(s): R inguinal hernia repair, L rotator cuff repair, bialteral total knee arthroplasties, R shoulder spur removal, teeth extracted, colonoscopy-normal. third hernia repair, left side, stents x2 2020 Past Anesthesia/Blood Transfusion Reactions: No Reported Reaction Date of Last Stent Placement:: 2018 Past Psychological History: No Psychological Hx Reported Smoking Status: Former smoker Past Alcohol Use History: None Reported Past Drug Use History: None Reported - Past Family History Father Family Medical History: Cancer Additional Family Medical History / Comment(s): Father of lung cancer at the age of 62. He was a smoker. Mother Family Medical History: Cancer, Diabetes Mellitus, Hypertension Additional Family Medical History / Comment(s): Mother at age 78 from brainstem cancer. Brother(s) Additional Family Medical History / Comment(s): Patient's 1 brother with history of AAA. Patient has 4 sisters and he does not know any of their medical history. Patient's 1 son and 1 daughter living. He had one daughter that at 7 weeks old from a congenital heart. General Exam Limitations: no limitations General appearance: alert, in no apparent distress, anxious Head exam: Present: atraumatic, normocephalic, normal inspection Eye exam: Present: normal appearance, PERRL, EOMI. Absent: scleral icterus, co njunctival injection, periorbital swelling ENT exam: Present: normal exam, mucous membranes moist Neck exam: Present: normal inspection. Absent: tenderness, meningismus, lymphadenopathy Respiratory exam: Present: normal lung sounds bilaterally. Absent: respiratory distress, wheezes, rales, rhonchi, stridor Cardiovascular Exam: Present: normal rhythm, tachycardia, normal heart sounds. Absent: systolic murmur, diastolic murmur, rubs, gallop, clicks GI/Abdominal exam: Present: soft, normal bowel sounds. Absent: distended, tenderness, guarding, rebound, rigid Extremities exam: Present: normal inspection, full ROM, normal capillary refill. Absent: tenderness, pedal edema, joint swelling, calf tenderness Back exam: Present: normal inspection Neurological exam: Present: alert, oriented X3, CN II-XII intact Psychiatric exam: Present: normal affect, normal mood Skin exam: Present: warm, dry, intact, normal color. Absent: rash Course Vital Signs 12/12/20 12/12/20 12/12/20 22:17 22:44 22:55 Temperature 98.2 F Pulse Rate 108 H 101 H Pulse Rate [ 96 Smoke Jumper ] Respiratory 18 20 22 Rate Blood Pressure 127/83 154/85 O2 Sat by Pulse 97 98 Oximetry 12/12/20 12/13/20 23:40 00:30 Temperature 98.0 F Pulse Rate 90 87 Pulse Rate [ Smoke Jumper ] Respiratory 18 18 Rate Blood Pressure 115/73 113/80 O2 Sat by Pulse 96 95 Oximetry - Reevaluation(s) Reevaluation #1: Medical record is reviewed Patient symptoms are improved here in the emergency department Patient informed of results and questions answered Patient is in no acute distress Chest Pain MDM - MDM 60 male to the emergency room today. He does present today for evaluation of body pain chest pain currently. Symptoms resolved and they have remained Res olved throughout ER stay. Patient feels good for discharge home Disposition Clinical Impression: Chest pain, Atypical chest pain, Myalgia Disposition: HOME SELF-CARE Condition: Fair Instructions (If sedation given, give patient instructions): Musculoskeletal Pain (ED) Is patient prescribed a controlled substance at d/c from ED?: No Referrals: Ava Erwin NPC [Primary Care Provider] - 1-2 days
[2020-12-12 23:23] LABS: Basophils % (A) 0 %; Eosinophils # (A) 0.1 k/uL (0-0.7); Eosinophils % (A) 1 %; HCT 39.1 % (39.0-53.0); Lymphocytes # (A) 1.9 k/uL (1.0-4.8); Lymphocytes % (A) 19 %; MCH 31.9 pg (25.0-35.0); MCHC 35.8 g/dL (31.0-37.0); Mean Platelet Volume 7.8; Monocytes # (A) 0.6 k/uL (0-1.0); Monocytes % (A) 6 %; Neutrophils # (A) 7.4 k/uL (1.3-7.7); Neutrophils % (A) 72 %; Platelet Count 262 k/uL (150-450); RBC 4.39 m/uL (4.30-5.90); RDW 12.5 % (11.5-15.5); WBC 10.3 k/uL (3.8-10.6)
[2020-12-12 23:34] LABS: INR 0.9 (<1.2); Partial Thromboplastin Time 22.6 sec (22.0-30.0); Prothrombin Time 9.8 sec (9.0-12.0)
[2020-12-12 23:36] LABS: ALT 29 U/L (4-49); AST 26 U/L (17-59); African American GFR (CKD) >90 (>60 ml/min/1.73 sqM); Alkaline Phosphatase 109 U/L (38-126); Anion Gap 12 mmol/L; Blood Urea Nitrogen 15 mg/dL (9-20); C Reactive Protein 5.2 mg/dL (<1.0); Calcium 9.5 mg/dL (8.4-10.2); Carbon Dioxide 22 mmol/L (22-30); Chloride 101 mmol/L (98-107); Creatine Kinase 94 U/L (55-170); Glucose 122 mg/dL (74-99); Magnesium 2.1 mg/dL (1.6-2.3); Non-African American GFR(CKD) >90 (>60 ml/min/1.73 sqM); Phosphorus 3.1 mg/dL (2.5-4.5); Potassium 4.2 mmol/L (3.5-5.1); Sodium 135 mmol/L (137-145); Total Bilirubin 0.5 mg/dL (0.2-1.3)
[2020-12-12 23:41] VITALS: RESP 18
--- NOTE | 2020-12-12 23:44 | XR ---
EXAMINATION TYPE: XR chest 2V DATE OF EXAM: 12/12/2020 COMPARISON: 11/29/2020 HISTORY: Weakness TECHNIQUE: 2 views FINDINGS: Heart and mediastinum are normal. Lungs are clear. Diaphragm is normal. Bony thorax is inta ct. Pulmonary vascularity is normal. There are chest leads. IMPRESSION: Normal chest. No change.
[2020-12-13] MEDS ORDERED: ONDANSETRON 4 MG ODT STARTER PACK 2 TAB BTL PO STA (00:19)
[2020-12-13] MEDS ORDERED: diazePAM 5 MG TAB PO STA (00:19)
[2020-12-13] MEDS ORDERED: ACET/COD 300 MG/30 MG STARTER PACK 6 TAB BTL PO STA (00:19)
[2020-12-13] MEDS ORDERED: IBUPROFEN 600 MG STARTER PACK 4 TAB BTL PO STA (00:19)
[2020-12-13 00:32] VITALS: BP 113/80; PULSE 87; TEMP 98
== END 2020-12-13 00:35 | disposition home or self-care (01) ==
LOC: EC 22:13
DX: R07.2 Precordial pain (principal); R07.89 Other chest pain; M79.10 Myalgia, unspecified site; J44.9 Chronic obstructive pulmonary disease, unspecified; I10 Essential (primary) hypertension; I25.2 Old myocardial infarction; I25.10 Atherosclerotic heart disease of native coronary artery without angina pectoris; E78.5 Hyperlipidemia, unspecified; Z95.9 Presence of cardiac and vascular implant and graft, unspecified; Z87.891 Personal history of nicotine dependence; Z88.1 Allergy status to other antibiotic agents; Z79.899 Other long term (current) drug therapy; Z79.51 Long term (current) use of inhaled steroids; Z20.822 Contact with and (suspected) exposure to COVID-19
CPT/HCPCS: 93005; 83880; 80053; 82550; 83605; 83735; 84100; 84484; 85025; 85610; 85730; 86140; 87635; 71046; 99285; 96374; 96375; 96361; J2270; J3360; J1885; S0119

== ENCOUNTER 2021-01-17 19:11 | Emergency (ER) | payer MEDICARE, OTHER ==
[2021-01-17] MEDS ORDERED: IPRATROPIUM-ALBUTEROL 3 ML NEB INHALATION STA (21:15)
[2021-01-17] MEDS ORDERED: methylPREDNISolone SOD SUCCI 125 MG/2 ML VIAL IV STA (21:15)
--- NOTE | 2021-01-17 21:19 | ED ---
General Adult HPI - General Chief complaint: Shortness of Breath Stated complaint: chest congestion, cough Time Seen by Provider: 01/17/21 19:32 Source: patient Mode of arrival: ambulatory Limitations: no limitations - History of Present Illness Initial comments: 60-year-old male, alert and oriented 4, presents to the emergency room with difficulty breathing that started yesterday when he was outside. Patient states that it is progressively been getting worse. He does have a history of COPD, hypertension, 3 respiratory arrest and a myocardial infarction. He states that when his breathing gets worse he normally comes to the hospital and gets lucia roids and antibiotics. He denies any chest pain but does complain of a headache that is 3 out of 10. He denies any fevers but states that he did have chills last night. He did receive the Covid vaccine. Patient states that he does have a productive cough that is yellow in color. -: days(s) (2) Location: head, chest Radiation: non-radiation Severity scale (1-10): 3 Consistency: constant Improves with: none Worsens with: none Treatments Prior to Arrival: none - Related Data Home Medications Medication Instructions Recorded Confirmed Budesonide [Pulmicort] 0.5 mg INHALATION RT-BID 03/03/16 11/29/20 Atorvastatin [Lipitor] 40 mg PO HS 04/07/19 11/29/20 Metoprolol Succinate (ER) [Toprol 50 mg PO DAILY 10/30/20 11/29/20 XL] hydroCHLOROthiazide [Hydrodiuril] 12.5 mg PO DAILY 10/30/20 11/29/20 Ipratropium-Albuterol Nebulize 3 ml INHALATION RT-QID 10/31/20 11/29/20 [Duoneb 0.5 mg-3 mg/3 ml Soln] Montelukast [Singulair] 10 mg PO HS 11/23/20 11/29/20 Fluocinolone Acetonide Oil 5 drops BOTH EARS BID PRN 11/29/20 11/29/20 [Dermotic] predniSONE See Taper PO DIRECTED 11/29/20 11/29/20 Previous Rx's Medication Instructions Recorded Clopidogrel [Plavix] 75 mg PO DAILY #30 tab 11/02/20 Famotidine [Pepcid] 20 mg PO DAILY #30 tab 11/26/20 Aspirin 325 mg PO DAILY tab 11/30/20 Isosorbide Mononitrate ER [Imdur] 30 mg PO DAILY #30 tablet 11/30/20 Nitroglycerin Sl Tabs [Nitrostat] 0.4 mg SL Q5M PRN #25 tab 11/30/20 Doxycycline Monohydrate [Monodox] 100 mg PO BID 7 Days #14 cap 01/17/21 predniSONE 50 mg PO DAILY #5 tab 01/17/21 Allergies Allergy/AdvReac Type Severity Reaction Status Date / Time levofloxacin [From Levaquin] AdvReac Nausea & Verified 01/17/21 19:20 Vomiting Review of Systems ROS Statement: Those systems with pertinent positive or pertinent negative responses have been documented in the HPI. ROS Other: All systems not noted in ROS Statement are negative. Past Medical History Past Medical History: Coronary Artery Disease (CAD), COPD, Hyperlipidemia, Hypertension, Myocardial Infarction ([place]) Additional Past Medical History / Comment(s): Pt states he has hx of 3 respiratory arrests and was vented, generalized arthritis, Last Myocardial Infarction Date:: History of Any Multi-Drug Resistant Organisms: None Reported Past Surgical History: Adenoidectomy, Heart Catheterization With Stent, Hernia Repair, Joint Replacement, Orthopedic Surgery, Tonsillectomy Additional Past Surgical History / Comment(s): R inguinal hernia repair, L rotator cuff repair, bialteral total knee arthroplasties, R shoulder spur removal, teeth extracted, colonoscopy-normal. third hernia repair, left side, stents x2 2020 Past Anesthesia/Blood Transfusion Reactions: No Reported Reaction Date of Last Stent Placement:: 2018 Past Psychological History: No Psychological Hx Reported Smoking Status: Former smoker Past Alcohol Use History: None Reported Past Drug Use History: None Reported - Past Family History Father Family Medical History: Cancer Additional Family Medical History / Comment(s): Father of lung cancer at the age of 62. He was a smoker. Mother Family Medical History: Cancer, Diabetes Mellitus, Hypertension Additional Family Medical History / Comment(s): Mother at age 78 from brainstem cancer. Brother(s) Additional Family Medical History / Comment(s): Patient's 1 brother with history of AAA. Patient has 4 sisters and he does not know any of their medical history. Patient's 1 son and 1 daughter living. He had one daughter that at 7 weeks old from a congenital heart. General Exam Limitations: no limitations General appearance: alert, in no apparent distress Head exam: Present: atraumatic, normocephalic, normal inspection Eye exam: Present: normal appearance, PERRL, EOMI. Absent: scleral icterus, conjunctival injection, periorbital swelling ENT exam: Present: normal exam, normal oropharynx, mucous membranes moist Neck exam: Present: full ROM. Absent: tenderness Respiratory exam: Present: decreased breath sounds. Absent: wheezes, rales, rhonchi, stridor, chest wall tenderness Cardiovascular Exam: Present: regular rate, normal heart sounds. Absent: systolic murmur, diastolic murmur, rubs, gallop, clicks GI/Abdominal exam: Present: soft, normal bowel sounds. Absent: distended, tenderness, guarding, rebound, rigid Neurological exam: Present: alert, oriented X3 Psychiatric exam: Present: normal affect, normal mood Skin exam: Present: warm, dry, intact, normal color. Absent: rash Course Vital Signs 01/17/21 01/17/21 01/17/21 19:20 20:45 22:03 Temperature 98.8 F Pulse Rate 81 80 Respiratory 18 20 Rate Blood Pressure 137/75 O2 Sat by Pulse 96 Oximetry 01/17/21 22:12 Temperature Pulse Rate 86 Respiratory Rate Blood Pressure O2 Sat by Pulse Oximetry EKG Findings - EKG Results: EKG: sinus rhythm (ventricular rate 75, AL interval 0.156, QRS of 0.90, QTC 0.419) Medical Decision Making - Medical Decision Making Patient states he's feeling much better after the DuoNeb treatment and Solu- Medrol. EKG does not show any ST elevation troponin is negative at 0.012. Covid test negative. There is no evidence of leukocytosis. His ambulatory pulse ox is 94% on room air. He denies any chest pain at this time. Chest x-ray showed no acute cardiopulmonary process, infiltrates or atelectasis. He was given prednisone and doxycycline at discharge. Directed to return to the emergency room with any new or worsening symptoms. Advised patient to follow up with his primary care doctor next week. Case was discussed with Dr. Haney - Lab Data Result diagrams: 01/17/21 21:29 01/17/21 21:29 Lab Results 10/22/21 10/22/21 10/22/21 Range/Units 21:29 21:29 21:29 WBC 8.9 (3.8-10.6) k/uL RBC 5.01 (4.30-5.90) m/uL Hgb 15.1 (13.0-17.5) gm/dL Hct 43.2 (39.0-53.0) % MCV 86.2 (80.0-100.0) fL MCH 30.2 (25.0-35.0) pg MCHC 35.0 (31.0-37.0) g/dL RDW 13.6 (11.5-15.5) % Plt Count 218 (150-450) k/uL MPV 7.7 Neutrophils % 63 % Lymphocytes % 24 % Monocytes % 8 % Eosinophils % 2 % Basophils % 1 % Neutrophils # 5.7 (1.3-7.7) k/uL Lymphocytes # 2.2 (1.0-4.8) k/uL Monocytes # 0.7 (0-1.0) k/uL Eosinophils # 0.2 (0-0.7) k/uL Basophils # 0.1 (0-0.2) k/uL PT 9.8 (9.0-12.0) sec INR 0.9 (<1.2) APTT 23.8 (22.0-30.0) sec Sodium 134 L (137-145) mmol/L Potassium 4.3 (3.5-5.1) mmol/L Chloride 103 (98-107) mmol/L Carbon Dioxide 21 L (22-30) mmol/L Anion Gap 10 mmol/L BUN 20 (9-20) mg/dL Creatinine 0.82 (0.66-1.25) mg/dL Est GFR (CKD-EPI)AfAm >90 (>60 ml/min/1.73 sqM) Est GFR (CKD-EPI)NonAf >90 (>60 ml/min/1.73 sqM) Glucose 101 H (74-99) mg/dL Plasma Lactic Acid Rito (0.7-2.0) mmol/L Calcium 9.5 (8.4-10.2) mg/dL Magnesium 2.2 (1.6-2.3) mg/dL Total Bilirubin 0.5 (0.2-1.3) mg/dL AST 24 (17-59) U/L ALT 19 (4-49) U/L Alkaline Phosphatase 104 (38-126) U/L Troponin I (0.000-0.034) ng/mL Total Protein 7.1 (6.3-8.2) g/dL Albumin 4.2 (3.5-5.0) g/dL Coronavirus (PCR) (Not Detectd) 01/17/21 01/17/21 01/17/21 Range/Units 21:29 21:29 21:36 WBC (3.8-10.6) k/uL RBC (4.30-5.90) m/uL Hgb (13.0-17.5) gm/dL Hct (39.0-53.0) % MCV (80.0-100.0) fL MCH (25.0-35.0) pg MCHC (31.0-37.0) g/dL RDW (11.5-15.5) % Plt Count (150-450) k/uL MPV Neutrophils % % Lymphocytes % % Monocytes % % Eosinophils % % Basophils % % Neutrophils # (1.3-7.7) k/uL Lymphocytes # (1.0-4.8) k/uL Monocytes # (0-1.0) k/uL Eosinophils # (0-0.7) k/uL Basophils # (0-0.2) k/uL PT (9.0-12.0) sec INR (<1.2) APTT (22.0-30.0) sec Sodium (137-145) mmol/L Potassium (3.5-5.1) mmol/L Chloride (98-107) mmol/L Carbon Dioxide (22-30) mmol/L Anion Gap mmol/L BUN (9-20) mg/dL Creatinine (0.66-1.25) mg/dL Est GFR (CKD-EPI)AfAm (>60 ml/min/1.73 sqM) Est GFR (CKD-EPI)NonAf (>60 ml/min/1.73 sqM) Glucose (74-99) mg/dL Plasma Lactic Acid Rito 1.0 (0.7-2.0) mmol/L Calcium (8.4-10.2) mg/dL Magnesium (1.6-2.3) mg/dL Total Bilirubin (0.2-1.3) mg/dL AST (17-59) U/L ALT (4-49) U/L Alkaline Phosphatase (38-126) U/L Troponin I <0.012 (0.000-0.034) ng/mL Total Protein (6.3-8.2) g/dL Albumin (3.5-5.0) g/dL Coronavirus (PCR) Not Detected (Not Detectd) Disposition Clinical Impression: COPD exacerbation Disposition: HOME SELF-CARE Condition: Good Instructions (If sedation given, give patient instructions): COPD (Chronic Obstructive Pulmonary Disease) (ED) Additional Instructions: Return to the emergency room with any new or worsening symptoms. Take antibiotics and steroids as prescribed. Follow-up with the primary care doctor in 1 week. Prescriptions: Doxycycline Monohydrate [Monodox] 100 mg PO BID 7 Days #14 cap predniSONE 50 mg PO DAILY #5 tab Is patient prescribed a controlled substance at d/c from ED?: No Referrals: Lora Cobb MD [Primary Care Provider] - 1-2 days Time of Disposition: 23:10
--- NOTE | 2021-01-17 21:38 | XR ---
EXAMINATION TYPE: XR chest 2V DATE OF EXAM: 01/17/2021 COMPARISON: 12/12/20 HISTORY: Shortness of breath TECHNIQUE: Frontal and lateral views of the chest are obtained. FINDINGS: Scattered senescent parenchymal changes noted. Hyperinflation compatible with COPD. No evidence for infiltrate. No evidence for atelectasis. Heart size is stable. Mediastinal structures are stable and grossly unremarkable. No evidence for hilar prominence. Degenerative changes dorsal spine. IMPRESSION: 1. No evidence for acute pulmonary disease.
[2021-01-17 21:45] LABS: Basophils # (A) 0.1 k/uL (0-0.2); Basophils % (A) 1 %; Eosinophils # (A) 0.2 k/uL (0-0.7); Eosinophils % (A) 2 %; HCT 43.2 % (39.0-53.0); HGB 15.1 gm/dL (13.0-17.5); Lymphocytes # (A) 2.2 k/uL (1.0-4.8); Lymphocytes % (A) 24 %; MCH 30.2 pg (25.0-35.0); MCV 86.2 fL (80.0-100.0); Mean Platelet Volume 7.7; Monocytes # (A) 0.7 k/uL (0-1.0); Monocytes % (A) 8 %; Neutrophils # (A) 5.7 k/uL (1.3-7.7); Neutrophils % (A) 63 %; Platelet Count 218 k/uL (150-450); RBC 5.01 m/uL (4.30-5.90); RDW 13.6 % (11.5-15.5); WBC 8.9 k/uL (3.8-10.6)
[2021-01-17 21:52] LABS: INR 0.9 (<1.2); Partial Thromboplastin Time 23.8 sec (22.0-30.0); Prothrombin Time 9.8 sec (9.0-12.0)
[2021-01-17 22:00] LABS: ALT 19 U/L (4-49); AST 24 U/L (17-59); African American GFR (CKD) >90 (>60 ml/min/1.73 sqM); Albumin 4.2 g/dL (3.5-5.0); Alkaline Phosphatase 104 U/L (38-126); Anion Gap 10 mmol/L; Blood Urea Nitrogen 20 mg/dL (9-20); Calcium 9.5 mg/dL (8.4-10.2); Carbon Dioxide 21 mmol/L (22-30); Chloride 103 mmol/L (98-107); Glucose 101 mg/dL (74-99); Magnesium 2.2 mg/dL (1.6-2.3); Non-African American GFR(CKD) >90 (>60 ml/min/1.73 sqM); Potassium 4.3 mmol/L (3.5-5.1); Sodium 134 mmol/L (137-145); Total Bilirubin 0.5 mg/dL (0.2-1.3); Total Protein 7.1 g/dL (6.3-8.2)
[2021-01-17 22:08] VITALS: RESP 20
[2021-01-17] MEDS ORDERED: DOXYCYCLINE 100 MG CAP PO STA (23:18)
[2021-01-17 23:30] VITALS: BP 127/92; PULSE 89; TEMP 98.7
== END 2021-01-17 23:31 | disposition home or self-care (01) ==
LOC: EC 19:11
DX: J44.1 Chronic obstructive pulmonary disease with (acute) exacerbation (principal); R51.9 Headache, unspecified; E78.5 Hyperlipidemia, unspecified; I25.2 Old myocardial infarction; I10 Essential (primary) hypertension; I25.10 Atherosclerotic heart disease of native coronary artery without angina pectoris; Z79.51 Long term (current) use of inhaled steroids; Z79.899 Other long term (current) drug therapy; Z95.5 Presence of coronary angioplasty implant and graft; Z20.822 Contact with and (suspected) exposure to COVID-19; Z87.891 Personal history of nicotine dependence; Z88.1 Allergy status to other antibiotic agents
CPT/HCPCS: 36415; 71046; 80053; 83605; 83735; 84484; 85025; 85610; 85730; 87635; 93005; 94640; 96374; 99285

== ENCOUNTER → 2021-02-03 | Outpatient (CLI) | payer MEDICARE, OTHER ==
[2021-02-03 13:50] LABS: Chol/HDL Ratio 3.86 Ratio; LDL Cholesterol,Calculated 120.4 mg/dL (0.0-131.0); VLDL Calculation 25.6 mg/dL (5.00-40.00)
== END | disposition home or self-care (01) ==
LOC: LABWHC1 07:21
PROVIDERS: ATTEND Internal Medicine Interventional Cardiology
DX: E78.2 Mixed hyperlipidemia (principal)
CPT/HCPCS: 36415; 80061; 84450; 84460

== ENCOUNTER 2021-03-25 13:57 | Inpatient (IN) | payer MEDICARE, OTHER ==
[2021-03-25] MEDS ORDERED: ALBUTEROL HFA INHALER INHALATION STA (14:53)
[2021-03-25] MEDS ORDERED: methylPREDNISolone SOD SUCCI 125 MG/2 ML VIAL IV STA (14:54)
--- NOTE | 2021-03-25 14:58 | ED ---
General Adult HPI - General Chief complaint: Shortness of Breath Stated complaint: cough/sob Time Seen by Provider: 03/25/21 14:00 Source: patient, RN notes reviewed, old records reviewed Mode of arrival: wheelchair Limitations: no limitations - History of Present Illness Initial comments: This is a 60-year-old male who presents emergency department stating that he was in the emergency department 3 days ago and was diagnosed with pneumonia. Patient states he symptoms worsened he continues to cough breath and he went saw his primary medical care doctor and they told to come to the emergency room. Patient states he was vaccinated against cold but it was tested 3 days ago when he was negative. Patient denies any chest pain or palpitations. Patient denies abdominal pain patient denies nausea vomiting diarrhea. Patient denies lightheadedness or dizziness. Patient denies wanting to the legs or calf tenderness. Patient's main complaint is coughing and shortness of breath per patient states she quit smoking about 4 months ago. - Related Data Home Medications Medication Instructions Recorded Confirmed Budesonide [Pulmicort] 0.5 mg INHALATION RT-BID 03/03/16 11/29/20 Atorvastatin [Lipitor] 40 mg PO HS 04/07/19 11/29/20 Metoprolol Succinate (ER) [Toprol 50 mg PO DAILY 10/30/20 11/29/20 XL] hydroCHLOROthiazide [Hydrodiuril] 12.5 mg PO DAILY 10/30/20 11/29/20 Ipratropium-Albuterol Nebulize 3 ml INHALATION RT-QID 10/31/20 11/29/20 [Duoneb 0.5 mg-3 mg/3 ml Soln] Montelukast [Singulair] 10 mg PO HS 11/23/20 11/29/20 Fluocinolone Acetonide Oil 5 drops BOTH EARS BID PRN 11/29/20 11/29/20 [Dermotic] predniSONE See Taper PO DIRECTED 11/29/20 11/29/20 Previous Rx's Medication Instructions Recorded Clopidogrel [Plavix] 75 mg PO DAILY #30 tab 11/02/20 Famotidine [Pepcid] 20 mg PO DAILY #30 tab 11/26/20 Aspirin 325 mg PO DAILY tab 11/30/20 Isosorbide Mononitrate ER [Imdur] 30 mg PO DAILY #30 tablet 11/30/20 Nitroglycerin Sl Tabs [Nitrostat] 0.4 mg SL Q5M PRN #25 tab 11/30/20 Doxycycline Monohydrate [Monodox] 100 mg PO BID 7 Days #14 cap 01/17/21 predniSONE 50 mg PO DAILY #5 tab 01/17/21 Azithromycin [Zithromax Z-pack (6 250 mg PO DIRECTED #6 tab 03/22/21 tabs)] predniSONE 60 mg PO DAILY #30 tab 03/22/21 Allergies Allergy/AdvReac Type Severity Reaction Status Date / Time levofloxacin [From Levaquin] AdvReac Nausea & Verified 03/22/21 20:36 Vomiting Review of Systems ROS Statement: Those systems with pertinent positive or pertinent negative responses have been documented in the HPI. ROS Other: All systems not noted in ROS Statement are negative. Past Medical History Past Medical History: Coronary Artery Disease (CAD), COPD, Hyperlipidemia, Hypertension, Myocardial Infarction ([place]) Additional Past Medical History / Comment(s): Pt states he has hx of 3 respiratory arrests and was vented, generalized arthritis, Last Myocardial Infarction Date:: History of Any Multi-Drug Resistant Organisms: None Reported Past Surgical History: Adenoidectomy, Heart Catheterization With Stent, Hernia Repair, Joint Replacement, Orthopedic Surgery, Tonsillectomy Additional Past Surgical History / Comment(s): R inguinal hernia repair, L rotator cuff repair, bialteral total knee arthroplasties, R shoulder spur removal, teeth extracted, colonoscopy-normal. third hernia repair, left side, stents x2 2020 Past Anesthesia/Blood Transfusion Reactions: No Reported Reaction Date of Last Stent Placement:: 2018 Past Psychological History: No Psychological Hx Reported Smoking Status: Former smoker Past Alcohol Use History: Occasional Past Drug Use History: Marijuana - Past Family History Father Family Medical History: Cancer Additional Family Medical History / Comment(s): Father of lung cancer at th e age of 62. He was a smoker. Mother Family Medical History: Cancer, Diabetes Mellitus, Hypertension Additional Family Medical History / Comment(s): Mother at age 78 from brainstem cancer. Brother(s) Additional Family Medical History / Comment(s): Patient's 1 brother with history of AAA. Patient has 4 sisters and he does not know any of their medical history. Patient's 1 son and 1 daughter living. He had one daughter that at 7 weeks old from a congenital heart. General Exam - General Exam Comments Initial Comments: GENERAL: Patient is well-developed and well-nourished. Patient is nontoxic and well- hydrated and is in mild distress. ENT: Neck is soft and supple. No significant lymphadenopathy is noted. Oropharynx is clear. Moist mucous membranes. Neck has full range of motion without eliciting any pain. EYES: The sclera were anicteric and conjunctiva were pink and moist. Extraocular movements were intact and pupils were equal round and reactive to light. Eyelids were unremarkable. PULMONARY: Decreased breath sounds with expiratory wheezing CARDIOVASCULAR: There is a regular rate and rhythm without any murmurs gallops or rubs. ABDOMEN: Soft and nontender with normal bowel sounds. SKIN: Skin is clear with no lesions or rashes and otherwise unremarkable. NEUROLOGIC: Patient is alert and oriented x3. Cranial nerves II through XII are grossly intact. Motor and sensory are also intact. Normal speech, volume and content. Symmetrical smile. MUSCULOSKELETAL: Normal extremities with adequate strength and full range of motion. No lower extremity swelling or edema. No calf tenderness. LYMPHATICS: No significant lymphadenopathy is noted PSYCHIATRIC: Normal psychiatric evaluation. Limitations: no limitations Course Vital Signs 03/25/21 03/25/21 14:00 14:28 Temperature 97.6 F Pulse Rate 106 H Respiratory 24 23 Rate Blood Pressure 137/79 O2 Sat by Pulse 93 L Oximetry Medical Decision Making - Medical Decision Making EKG shows normal sinus rhythm at 96 bpm CA interval 252 QRS is 78 QT interval 350 QTC is 442. Patient's EKG shows no ST segment elevation or depression. Patient's chest x-ray shows no acute abnormality. Because of poor aeration patient received 2 breathing treatments and steroids. Patient continues to have difficulty breathing patient will be brought into the emergency department for COPD exacerbation. Spoke with the soonest hospice he agreed to admit the patient admitted the patient wrote admitting orders. - Lab Data Result diagrams: 03/25/21 14:57 03/25/21 14:57 Lab Results 03/25/21 03/25/21 03/25/21 Range/Units 14:49 14:57 14:57 WBC 9.5 (3.8-10.6) k/uL RBC 4.74 (4.30-5.90) m/uL Hgb 14.3 (13.0-17.5) gm/dL Hct 41.7 (39.0-53.0) % MCV 87.9 (80.0-100.0) fL MCH 30.1 (25.0-35.0) pg MCHC 34.3 (31.0-37.0) g/dL RDW 13.8 (11.5-15.5) % Plt Count 277 (150-450) k/uL MPV 8.1 Neutrophils % 90 % Lymphocytes % 8 % Monocytes % 2 % Eosinophils % 0 % Basophils % 0 % Neutrophils # 8.5 H (1.3-7.7) k/uL Lymphocytes # 0.7 L (1.0-4.8) k/uL Monocytes # 0.2 (0-1.0) k/uL Eosinophils # 0.0 (0-0.7) k/uL Basophils # 0.0 (0-0.2) k/uL Sodium 135 L (137-145) mmol/L Potassium 4.2 (3.5-5.1) mmol/L Chloride 100 (98-107) mmol/L Carbon Dioxide 19 L (22-30) mmol/L Anion Gap 16 mmol/L BUN 19 (9-20) mg/dL Creatinine 0.83 (0.66-1.25) mg/dL Est GFR (CKD-EPI)AfAm >90 (>60 ml/min/1.73 sqM) Est GFR (CKD-EPI)NonAf >90 (>60 ml/min/1.73 sqM) Glucose 131 H (74-99) mg/dL Plasma Lactic Acid Rito (0.7-2.0) mmol/L Calcium 9.7 (8.4-10.2) mg/dL Total Bilirubin 0.4 (0.2-1.3) mg/dL AST 24 (17-59) U/L ALT 21 (4-49) U/L Alkaline Phosphatase 118 (38-126) U/L Total Protein 7.5 (6.3-8.2) g/dL Albumin 4.4 (3.5-5.0) g/dL Coronavirus (PCR) Not Detected (Not Detectd) 03/25/21 Range/Units 14:57 WBC (3.8-10.6) k/uL RBC (4.30-5.90) m/uL Hgb (13.0-17.5) gm/dL Hct (39.0-53.0) % MCV (80.0-100.0) fL MCH (25.0-35.0) pg MCHC (31.0-37.0) g/dL RDW (11.5-15.5) % Plt Count (150-450) k/uL MPV Neutrophils % % Lymphocytes % % Monocytes % % Eosinophils % % Basophils % % Neutrophils # (1.3-7.7) k/uL Lymphocytes # (1.0-4.8) k/uL Monocytes # (0-1.0) k/uL Eosinophils # (0-0.7) k/uL Basophils # (0-0.2) k/uL Sodium (137-145) mmol/L Potassium (3.5-5.1) mmol/L Chloride (98-107) mmol/L Carbon Dioxide (22-30) mmol/L Anion Gap mmol/L BUN (9-20) mg/dL Creatinine (0.66-1.25) mg/dL Est GFR (CKD-EPI)AfAm (>60 ml/min/1.73 sqM) Est GFR (CKD-EPI)NonAf (>60 ml/min/1.73 sqM) Glucose (74-99) mg/dL Plasma Lactic Acid Rito 2.4 H* (0.7-2.0) mmol/L Calcium (8.4-10.2) mg/dL Total Bilirubin (0.2-1.3) mg/dL AST (17-59) U/L ALT (4-49) U/L Alkaline Phosphatase (38-126) U/L Total Protein (6.3-8.2) g/dL Albumin (3.5-5.0) g/dL Coronavirus (PCR) (Not Detectd) Disposition Clinical Impression: Acute exacerbation of chronic obstructive pulmonary disease Disposition: ADMITTED IP TO THIS HOSP Referrals: Lora Cobb MD [Primary Care Provider] - 1-2 days Time of Disposition: 15:48
--- NOTE | 2021-03-25 15:09 | XR ---
EXAMINATION TYPE: XR chest 2V DATE OF EXAM: 03/25/2021 COMPARISON: NONE HISTORY: Shortness of breath TECHNIQUE: Frontal and lateral views of the chest are obtained. FINDINGS: Scattered senescent parenchymal changes noted. Hyperinflation compatible with COPD. No evidence for infiltrate. No evidence for atelectasis. Heart size is stable. Mediastinal structures are stable and grossly unremarkable. No evidence for hilar prominence. Degenerative changes dorsal spine. IMPRESSION: 1. No evidence for acute pulmonary disease.
[2021-03-25 15:12] LABS: Basophils % (A) 0 %; Eosinophils % (A) 0 %; HCT 41.7 % (39.0-53.0); HGB 14.3 gm/dL (13.0-17.5); Lymphocytes # (A) 0.7 k/uL (1.0-4.8); Lymphocytes % (A) 8 %; MCH 30.1 pg (25.0-35.0); MCHC 34.3 g/dL (31.0-37.0); MCV 87.9 fL (80.0-100.0); Mean Platelet Volume 8.1; Monocytes # (A) 0.2 k/uL (0-1.0); Monocytes % (A) 2 %; Neutrophils # (A) 8.5 k/uL (1.3-7.7); Neutrophils % (A) 90 %; Platelet Count 277 k/uL (150-450); RBC 4.74 m/uL (4.30-5.90); RDW 13.8 % (11.5-15.5); WBC 9.5 k/uL (3.8-10.6)
[2021-03-25 15:24] LABS: ALT 21 U/L (4-49); AST 24 U/L (17-59); African American GFR (CKD) >90 (>60 ml/min/1.73 sqM); Albumin 4.4 g/dL (3.5-5.0); Alkaline Phosphatase 118 U/L (38-126); Anion Gap 16 mmol/L; Blood Urea Nitrogen 19 mg/dL (9-20); Calcium 9.7 mg/dL (8.4-10.2); Carbon Dioxide 19 mmol/L (22-30); Chloride 100 mmol/L (98-107); Glucose 131 mg/dL (74-99); Non-African American GFR(CKD) >90 (>60 ml/min/1.73 sqM); Potassium 4.2 mmol/L (3.5-5.1); Sodium 135 mmol/L (137-145); Total Bilirubin 0.4 mg/dL (0.2-1.3); Total Protein 7.5 g/dL (6.3-8.2)
[2021-03-25] MEDS ORDERED: IPRATROPIUM-ALBUTEROL 3 ML NEB INHALATION STA (15:40)
[2021-03-25] MEDS ORDERED: ALBUTEROL NEB (CONC) 2.5 MG/0.5 ML INHALATION ONE (15:49)
[2021-03-25] MEDS ORDERED: ALPRAZolam 0.25 MG TAB PO PRN (19:03)
[2021-03-25] MEDS: BUDESONIDE 1 MG/2 ML NEBU INHALATION SCH (19:49)
[2021-03-25] MEDS: IPRATROPIUM-ALBUTEROL 3 ML NEB INHALATION PRN (19:49)
[2021-03-25] MEDS: FORMOTEROL FUMARATE 20 MCG/2 ML NEBU INHALATION SCH (19:57)
--- NOTE | 2021-03-25 20:12 | HP ---
HISTORY AND PHYSICAL DATE OF SERVICE: 03/25/2021. CHIEF COMPLAINTS: Cough and shortness of breath. HISTORY OF PRESENT ILLNESS: This 60-year-old gentleman with a past medical history of CAD, history of COPD, hypertension, hyperlipidemia, history of myocardial infarction, being followed by Dr. Cobb in the outpatient setting, was having shortness or breath and cough for the past several days. Patient came to the emergency room 3 days ago and was diagnosed with pneumonia. Symptoms worsened. The patient was unable to cough. The patient is also following with Dr. Hudson in the outpatient setting. Because of lack of improvement, the patient came to [facility] and was admitted for further evaluation and treatment. The lactic acid was elevated. Sodium is 135. The patient stopped smoking about 6 months ago, according to him. The chest x-ray showed some increased bronchovascular markings, but no evidence of any clear-cut pneumonia. There is no history of any fever, rigor or chills at this time. PAST MEDICAL HISTORY: History of COPD, history of CAD, hypertension, hyperlipidemia. HOME MEDICATIONS: Lipitor, Nitrostat, Singulair, prednisone, metoprolol, isosorbide. Doses and other medications are reviewed. ALLERGIES: LEVAQUIN. FAMILY HISTORY: History of cancer in the family; lung cancer. SOCIAL HISTORY: Previous history of smoking. Occasional alcohol intake. REVIEW OF SYSTEMS: ENT: No diminished hearing. No diminished vision. CARDIOVASCULAR SYSTEM: No angina, palpitations. RESPIRATORY SYSTEM: As mentioned earlier. GI: No nausea, vomiting, diarrhea. : No dysuria. NERVOUS SYSTEM: No numbness, weakness. ALLERGY/IMMUNOLOGY: No asthma or hay fever. MUSCULOSKELETAL: As mentioned earlier. HEMATOLOGY/ONCOLOGY: No history of anemia. ENDOCRINE: No history of diabetes or hypothyroidism. CONSTITUTIONAL: As mentioned earlier. DERMATOLOGY: Negative. RHEUMATOLOGY: Negative. PSYCHIATRY: As mentioned earlier. PHYSICAL EXAMINATION: Patient alert and oriented x3. Pulse 94, blood pressure 133/83, respiration 18, temperature 97.5, pulse ox 97% on 2 L. HEENT: Conjunctivae normal. NECK: No jugular venous distention. CARDIOVASCULAR: S1, S2 muffled. RESPIRATION: Breath sounds diminished at the bases. Scattered rhonchi and crackles. ABDOMEN: Soft, nontender. No mass palpable. LEGS: No edema. No swelling. NERVOUS SYSTEM: Higher functions as mentioned earlier. Moves all 4 limbs. No focal motor or sensory deficit. LYMPHATICS: No lymph node palpable in neck, axillae or groin. SKIN: No ulcer, rash, bleeding. JOINTS: No active deforming arthropathy. LABS: CBC within normal limits. Sodium 134, potassium 4.2. Glucose 131. Lactic acid is 2.4 and 2.4. ASSESSMENT: 1. Chronic obstructive pulmonary disease, acute exacerbation, with acute purulent tracheobronchitis or possibly early bronchopneumonia with failure of outpatient treatment. 2. Hyponatremia. 3. Elevated lactic acid at 2.4 secondary to dehydration possibly. 4. Decreased carbon dioxide. 5. History of coronary artery disease. 6. Chronic obstructive pulmonary disease history. 7. Hypertension. 8. Hyperlipidemia. 9. History of myocardial infarction. 10.History of adenoidectomy. 11.History of coronary artery disease, stent. 12.History of hernia repair. 13.History of tonsillectomy. 14.Degenerative joint disease. 15.FULL CODE. RECOMMENDATIONS AND DISCUSSION: In this 60-year-old gentleman who presented with multiple complex medical issues, we will monitor the patient closely. I would recommend intravenous antibiotics, intensive bronchodilators and steroids. Pulmonary consultation with Dr. Hudson. Prognosis is guarded because of multiple complex medical issues. Further recommendations to follow. Discussed with the patient, who understands and agrees. See orders for further details. MMODL / IJN: [id number] /
[2021-03-25] MEDS ORDERED: CEFDINIR 300 MG CAP PO SCH (21:00)
[2021-03-25] MEDS: HEPARIN SODIUM,PORCINE/PF 5,000 UNIT/0.5 ML SYRINGE SQ SCH (21:19)
[2021-03-25] MEDS: ATORVASTATIN 80 MG TAB PO SCH (21:19)
[2021-03-25] MEDS: PANTOPRAZOLE 40 MG TABLET PO SCH (21:19)
[2021-03-25] MEDS: MONTELUKAST 10 MG TAB PO SCH (21:19)
[2021-03-25] MEDS: methylPREDNISolone SOD SUCCI 125 MG/2 ML VIAL IV SCH (21:20)
[2021-03-26] MEDS: IPRATROPIUM-ALBUTEROL 3 ML NEB INHALATION PRN ×5 (00:43→15:17)
[2021-03-26] MEDS: methylPREDNISolone SOD SUCCI 125 MG/2 ML VIAL IV SCH ×4 (04:12→19:49)
[2021-03-26 04:33] LABS: Basophils % (A) 0 %; Eosinophils % (A) 0 %; HCT 39.8 % (39.0-53.0); HGB 13.3 gm/dL (13.0-17.5); Lymphocytes # (A) 1.2 k/uL (1.0-4.8); Lymphocytes % (A) 11 %; MCH 30.3 pg (25.0-35.0); MCHC 33.4 g/dL (31.0-37.0); MCV 90.6 fL (80.0-100.0); Mean Platelet Volume 8.1; Monocytes # (A) 0.3 k/uL (0-1.0); Monocytes % (A) 3 %; Neutrophils # (A) 8.9 k/uL (1.3-7.7); Neutrophils % (A) 85 %; Platelet Count 255 k/uL (150-450); RBC 4.39 m/uL (4.30-5.90); RDW 13.8 % (11.5-15.5); WBC 10.5 k/uL (3.8-10.6)
[2021-03-26] MEDS: PANTOPRAZOLE 40 MG TABLET PO SCH (08:01)
[2021-03-26] MEDS: METOPROLOL SUCCINATE (ER) 50 MG TAB.ER.24H PO SCH (08:01)
[2021-03-26] MEDS: HEPARIN SODIUM,PORCINE/PF 5,000 UNIT/0.5 ML SYRINGE SQ SCH ×3 (08:01→19:49)
[2021-03-26] MEDS: CLOPIDOGREL 75 MG TAB PO SCH (08:01)
[2021-03-26] MEDS: ISOSORBIDE MONONITRATE ER 60 MG TAB.ER.24H PO SCH (08:02)
[2021-03-26] MEDS: hydroCHLOROthiazide 12.5 MG CAP PO SCH (08:03)
[2021-03-26] MEDS: ASPIRIN 81 MG PO SCH (08:06)
[2021-03-26] MEDS: BUDESONIDE 1 MG/2 ML NEBU INHALATION SCH ×2 (08:09→19:29)
[2021-03-26] MEDS: FORMOTEROL FUMARATE 20 MCG/2 ML NEBU INHALATION SCH ×2 (08:09→19:29)
[2021-03-26 09:41] LABS: Anion Gap 15.9 mmol/L (10.00-18.00); BUN/Creat Ratio 19.67 Ratio (12.00-20.00); Blood Urea Nitrogen 17.7 mg/dL (9.0-27.0); Calcium 9.2 mg/dL (8.7-10.3); Carbon Dioxide 21.1 mmol/L (20.0-27.5); Non-African American GFR(CKD) 93.2 (60.0-200.0)
[2021-03-26] MEDS: ACETAMINOPHEN TAB 325 MG TAB PO PRN (13:26)
--- NOTE | 2021-03-26 16:04 | PN ---
PROGRESS NOTE DATE OF SERVICE: 03/26/2021 This 60-year-old gentleman admitted with COPD acute exacerbation was admitted yesterday with significant shortness of breath and cough and sputum. Patient had failure of outpatient treatment. The patient was found to have elevated plasma lactic acid which might indicate dehydration. The cultures are negative so far. The patient is started on antibiotics and as well as IV steroids. Pulmonary is being consulted. The patient is on intensive bronchodilator treatment also. The patient will require a full admission as of now. Past medical history reviewed. REVIEW OF SYSTEMS: Cardiovascular system: As mentioned earlier. Respiratory: As mentioned earlier. GI: No nausea or vomiting. : No dysuria. Nervous system: No numbness or weakness. Nervous system: No numbness or weakness. CURRENT MEDICATIONS: Reviewed and include: Tylenol, DuoNeb, Xanax, aspirin, Lipitor, Pulmicort, Rocephin, rest of medication noted. PHYSICAL EXAMINATION: Patient is alert and oriented times three. Pulse 112, blood pressure 131/72, respiration 18, temperature 97.8, pulse ox 97% on 2 L. HEENT: Conjunctivae normal. Neck: No JVD. Cardiovascular: S1, S2. Respirations: Breath sounds diminished in the bases. Bilateral scattered rhonchi and crackles. Abdomen: Soft, nontender. No mass palpable. Legs are no edema, no swelling. Nervous system: No focal deficits. LAB STUDIES: CBC within normals limits and neutrophils are 8.9. Sodium 141, potassium 4. Lactic acid is 5.6 and 4.6. ASSESSMENT: 1. Chronic obstructive pulmonary disease acute exacerbation with acute purulent tracheobronchitis with possible early bronchopneumonia with failure of outpatient treatment, possibly early sepsis. 2. Hyponatremia. 3. Elevated lactic acid secondary to dehydration or sepsis possibly. 4. Decreased CO2. 5. History of coronary artery disease. 6. Chronic obstructive pulmonary disease. 7. Hypertension. 8. Hyperlipidemia. 9. History of myocardial infarction. 10.History of adenoidectomy. 11.History of coronary artery disease/stent. 12.History of hernia repair. 13.History of tonsillectomy. 14.Degenerative joint disease. 15.FULL CODE. RECOMMENDATIONS AND DISCUSSION: In this 60-year-old gentleman who presented with multiple complex medical issues, as mentioned. I would recommend continue the intensive bronchodilator treatment as well as broad-spectrum IV antibiotics and as well as IV steroids. This patient will require a full admit of more than 2 nights stay. There is no way I can discharge the patient home as an observation because of above mentioned multiple complex medical issues. I am also going to repeat blood cultures and also obtain infectious disease evaluation because of the high suspicion of early sepsis as well. Once again, the prognosis is extremely guarded because of multiple complex medical issues. Further recommendations to follow. I would also recommend D-dimer evaluation and further workup including CT angio, D-dimer is elevated as well. Further recommendation to follow. Covid 19 has been negative. MMODL / IJN: [id number] /
[2021-03-26] MEDS: MONTELUKAST 10 MG TAB PO SCH (19:49)
[2021-03-26] MEDS: ATORVASTATIN 80 MG TAB PO SCH (19:49)
[2021-03-26] MEDS: guaiFENesin 600 MG TABLET.ER PO SCH (19:49)
[2021-03-27] MEDS: IPRATROPIUM-ALBUTEROL 3 ML NEB INHALATION PRN ×5 (01:17→20:17)
[2021-03-27] MEDS: methylPREDNISolone SOD SUCCI 125 MG/2 ML VIAL IV SCH ×4 (04:39→20:13)
[2021-03-27] MEDS: BUDESONIDE 1 MG/2 ML NEBU INHALATION SCH ×2 (09:03→20:17)
[2021-03-27] MEDS: FORMOTEROL FUMARATE 20 MCG/2 ML NEBU INHALATION SCH ×2 (09:04→20:17)
--- NOTE | 2021-03-27 09:05 | P.CNPUL ---
History of Present Illness Consult date: 03/27/21 Reason for consult: dyspnea, cough, hypoxemia, pneumonia, obstructive sleep apnea Chief complaint: Shortness of breath and cough with sputum production History of present illness: Patient is a 60-year-old with the 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 patient also had problems associated with obstructive sleep apnea coronary artery disease patient was working outside for several hours after that started having chest congestion cough and sputum production which lately done green decided to come into the hospital for further evaluation blood cultures have been negative, his chest x-ray negative for any acute processes on specific questioning denies any dizziness headache denies any loss of questionable hemiparesis, denies any chest pain or radiation of pain have ongoing chest congestion tried any night sweats fever or chills patient is not smoking anymore, his labs were significant for neck. Also 4.6 and I will not improved to 2.3, melenas the Review of Systems All systems: negative Past Medical History Past Medical History: Coronary Artery Disease (CAD), COPD, Hyperlipidemia, Hypertension, Myocardial Infarction ([place]) Additional Past Medical History / Comment(s): Pt states he has hx of 3 respiratory arrests and was vented, generalized arthritis, Last Myocardial Infarction Date:: History of Any Multi-Drug Resistant Organisms: None Reported Past Surgical History: Adenoidectomy, Heart Catheterization With Stent, Hernia Repair, Joint Replacement, Orthopedic Surgery, Tonsillectomy Additional Past Surgical History / Comment(s): R inguinal hernia repair, L rotator cuff repair, bialteral total knee arthroplasties, R shoulder spur removal, teeth extracted, colonoscopy-normal. third hernia repair, left side, stents x2 2020 ear Past Anesthesia/Blood Transfusion Reactions: No Reported Reaction Date of Last Stent Placement:: 2018 Past Psychological History: No Psychological Hx Reported Additional Psychological History / Comment(s): He uses no assistive devices. Smoking Status: Former smoker Past Alcohol Use History: Occasional Additional Past Alcohol Use History / Comment(s): patient quit smoking in 12/2018, but has restarted. He uses marijuana (edilbel) daily for pain. He is recovering alcoholic and he drinks alcohol rarely at this point. He has history of illicit drug use including Phen-Fen a means, LSD, cocaine, heroin and quit all of this 9 years ago. 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 Past Drug Use History: Marijuana Additional Drug Use History / Comment(s): He states in the past he has used marijuana, heroin, crystal meth, cocaine and crack but none of those drugs for about 9 yrs. - Past Family History Father Family Medical History: Cancer Additional Family Medical History / Comment(s): Father of lung cancer at the age of 62. He was a smoker. Mother Family Medical History: Cancer, Diabetes Mellitus, Hypertension Additional Family Medical History / Comment(s): Mother at age 78 from brainstem cancer. Brother(s) Additional Family Medical History / Comment(s): Patient's 1 brother with history of AAA. Patient has 4 sisters and he does not know any of their medical history. Patient's 1 son and 1 daughter living. He had one daughter that at 7 weeks old from a congenital heart. Medications and Allergies Home Medications Medication Instructions Recorded Confirmed Type Metoprolol Succinate (ER) [Toprol 50 mg PO DAILY 10/30/20 03/25/21 History XL] hydroCHLOROthiazide [Hydrodiuril] 12.5 mg PO DAILY 10/30/20 03/25/21 History Clopidogrel [Plavix] 75 mg PO DAILY #30 tab 11/02/20 03/25/21 Rx Montelukast [Singulair] 10 mg PO HS 11/23/20 03/25/21 History Nitroglycerin Sl Tabs [Nitrostat] 0.4 mg SL Q5M PRN #25 tab 11/30/20 03/25/21 Rx predniSONE 60 mg PO DAILY #30 tab 03/22/21 03/25/21 Rx Aspirin 81 mg PO DAILY 03/25/21 03/25/21 History Atorvastatin Calcium [Lipitor] 80 mg PO HS 03/25/21 03/25/21 History Azithromycin [Zithromax Z-pack (6 See Taper PO DIRECTED 03/25/21 03/25/21 History tabs)] Isosorbide Mononitrate ER [Imdur] 60 mg PO DAILY 03/25/21 03/25/21 History Allergies Allergy/AdvReac Type Severity Reaction Status Date / Time levofloxacin [From Levaquin] AdvReac Nausea & Verified 03/25/21 17:01 Vomiting Physical Exam Vitals: Vital Signs Temp Pulse Pulse Resp BP Pulse Ox 03/27/21 07:43 97.4 F L 101 H 20 146/80 98 03/27/21 05:03 103 H 03/27/21 04:54 95 03/27/21 01:52 98.0 F 81 22 117/74 95 03/27/21 01:32 100 03/27/21 01:17 103 H 03/26/21 20:25 98.5 F 91 22 129/77 96 03/26/21 19:49 96 20 03/26/21 19:43 96 03/26/21 19:30 95 03/26/21 15:27 101 H 20 03/26/21 15:17 100 20 03/26/21 15:00 98.3 F 96 18 108/69 97 03/26/21 12:17 100 22 03/26/21 12:03 102 H 20 Intake and Output 03/26/21 03/27/21 03/27/21 22:59 06:59 14:59 Other: Voiding Method Toilet # Voids 2 - Constitutional General appearance: mild distress - EENT Eyes: EOMI, PERRLA Ears: bilateral: normal - Neck Carotids: bilateral: upstroke normal Thyroid: bilateral: normal size - Respiratory Respiratory: bilateral: diminished, rhonchi, wheezing, negative: CTA, dullness - Cardiovascular Rhythm: regular Heart sounds: normal: S1, S2 - Gastrointestinal General gastrointestinal: soft - Integumentary Integumentary: normal turgor - Neurologic Neurologic: CNII-XII intact - Musculoskeletal Musculoskeletal: gait normal, generalized weakness, strength equal bilaterally - Psychiatric Psychiatric: A&O x's 3, appropriate affect, intact judgment & insight Results - Laboratory Findings CBC and BMP: 03/26/21 04:14 03/26/21 04:14 Abnormal lab findings: Abnormal Labs 03/25/21 03/25/21 03/25/21 14:57 14:57 14:57 Neutrophils # 8.5 H Lymphocytes # 0.7 L Sodium 135 L Carbon Dioxide 19 L Glucose 131 H Plasma Lactic Acid Riot 2.4 H* C-Reactive Protein 03/25/21 03/25/21 03/26/21 17:50 21:24 00:16 Neutrophils # Lymphocytes # Sodium Carbon Dioxide Glucose Plasma Lactic Acid Rito 2.4 H* 3.5 H* 5.6 H* C-Reactive Protein 03/26/21 03/26/21 03/26/21 04:14 04:14 04:14 Neutrophils # 8.9 H Lymphocytes # Sodium Carbon Dioxide Glucose 199 H Plasma Lactic Acid Rito 4.6 H* C-Reactive Protein 03/26/21 03/27/21 16:23 06:21 Neutrophils # Lymphocytes # Sodium Carbon Dioxide Glucose Plasma Lactic Acid Rito 2.3 H* C-Reactive Protein 1.0 H - Diagnostic Findings Chest x-ray: report reviewed, image reviewed Assessment and Plan Assessment: Acute COPD exacerbation Purulent tracheobronchitis Prior history of [place] and coronary artery disease Sepsis due to tracheobronchitis of bronchopneumonia Elevated lactic acid Hypertension hypertensive cardiovascular disease Dyslipidemia Plan: IV steroids breathing treatments agree with IV antibiotics sputum for Gram stain and culture follow clinical course closely
[2021-03-27 09:21] LABS: Basophils # (A) 0.04 X 10*3/uL (0.00-0.10); Basophils % (A) 0.2 %; Eosinophils # (A) 0 X 10*3/uL (0.04-0.35); Eosinophils % (A) 0 %; HCT 37.3 % (39.6-50.0); HGB 12.5 g/dL (13.0-17.0); Lymphocytes # (A) 1.39 X 10*3/uL (0.90-5.00); Lymphocytes % (A) 8.1 %; MCH 29.4 pg (27.0-32.0); MCHC 33.5 g/dL (32.0-37.0); MCV 87.8 fL (80.0-97.0); Mean Platelet Volume 10.9 fL (9.5-12.2); Monocytes # (A) 0.87 X 10*3/uL (0.20-1.00); Neutrophils # (A) 14.37 X 10*3/uL (1.80-7.70); Neutrophils % (A) 83.4 %; Platelet Count 258 X 10*3/uL (140-440); RBC 4.25 X 10*6/uL (4.40-5.60); RDW 13.7 % (11.5-14.5); WBC 17.24 X 10*3/uL (4.50-10.00)
[2021-03-27 09:32] LABS: African American GFR (CKD) 113.9 (60.0-200.0); Anion Gap 12.1 mmol/L (10.00-18.00); BUN/Creat Ratio 18.2 Ratio (12.00-20.00); Blood Urea Nitrogen 14.4 mg/dL (9.0-27.0); Calcium 9.1 mg/dL (8.7-10.3); Non-African American GFR(CKD) 98.2 (60.0-200.0); Potassium 4.3 mmol/L (3.5-5.5)
--- NOTE | 2021-03-27 09:54 | P.CONS ---
History of Present Illness - Reason for Consult Consult date: 03/26/21 sepsis Requesting physician: Naseem Diehl - Chief Complaint shortness of breath x few days - History of Present Illness history of present illness : Patient is a 60-year-old male with a past medical history significant for COPD in this patient presenting to the hospital yesterday afternoon for evaluation of increasing shortness of breath apparently the patient was seen in the ER 3 days prior to this admission and there was no evidence of any pneumonia the patient discharged home on a steroids and oral antibiotic patient not sure about the name however the patient did not have improvement patient be complaining of increasing shortness of breath patient also have a cough bring up some dark sputum no hemoptysis patient denies any nausea no vomiting no abdominal pain no diarrhea on presentation to the hospital patient was afebrile patient did have a normal white count kidney function has been normal did have elevated lactic acid blood culture has been obtained patient did have a chest x-ray no evidence of acute cardiopulmonary disease patient was admitted to hospital infectious was consulted with concern for sepsis currently being treated with Rocephin Solu-Medrol Review of system: CONSTITUTIONAL: Positive for weakness denies high-grade fever. EYES: No complaint. ENT: No complaint. RESPIRATORY: As per history of present illness. CARDIOVASCULAR: No complaint. GENITOURINARY: No complaint. GASTROINTESTINAL: No complaint. MUSCULOSKELETAL: No complaint. INTEGUMENTARY: No complaint. PSYCHOLOGIC: No complaint. ENDOCRINE: No complaint. NEUROLOGIC: No complaint. Past medical history : Reviewed, documented below Past surgical history : Reviewed, documented below Social history: Reviewed, documented below Medications: Reviewed, as documented below EXAMINATION: Vital sigans= Reviewed and documented below GENERAL DESCRIPTION: Middle-aged male lying in bed, no distress. No tachypnea or accessory muscle of respiration use. HEENT: Shows Pallor , no scleral icterus. Oral mucous membrane is dry. NECK: Trachea central, no thyromegaly. LUNGS: Unlabored breathing. Coarse breath sounds bilaterally with occasional wheeze. HEART: S1, S2, regular rate and rhythm. ABDOMEN: Soft, no tenderness , guarding or rigidity EXTREMITIES: No edema of feet. SKIN: No rash, no masses palpable. NEUROLOGICAL: The patient is awake, alert, oriented x3, mood and affect normal. LABS AND RADIOLOGY: Reviewed results see below Assessment : Patient is a 60-year male presented to hospital with increasing shortness of breath and cough in this patient did have underlying COPD patient did have elevated lactic acid more likely due to underlying bronchoconstriction patient is clinically not behaving as sepsis in this patient with no fever or elevated white count chest x-ray has been clear of any consolidation Plan: 1-we will obtain a CRP and a procalcitonin level 2-obtain a sputum for Gram stain and culture 3-nicotine antibiotic while waiting for the work-up to be completed We will follow on clinical condition and cultures to further adjust medication if needed Thank you for this consultation we will follow the patient along with you Past Medical History Past Medical History: Coronary Artery Disease (CAD), COPD, Hyperlipidemia, Hypertension, Myocardial Infarction ([place]) Additional Past Medical History / Comment(s): Pt states he has hx of 3 respiratory arrests and was vented, generalized arthritis, Last Myocardial Infarction Date:: History of Any Multi-Drug Resistant Organisms: None Reported Past Surgical History: Adenoidectomy, Heart Catheterization With Stent, Hernia Repair, Joint Replacement, Orthopedic Surgery, Tonsillectomy Additional Past Surgical History / Comment(s): R inguinal hernia repair, L rotator cuff repair, bialteral total knee arthroplasties, R shoulder spur removal, teeth extracted, colonoscopy-normal. third hernia repair, left side, stents x2 2020 ear Past Anesthesia/Blood Transfusion Reactions: No Reported Reaction Date of Last Stent Placement:: 2018 Past Psychological History: No Psychological Hx Reported Additional Psychological History / Comment(s): He uses no assistive devices. Smoking Status: Former smoker Past Alcohol Use History: Occasional Additional Past Alcohol Use History / Comment(s): patient quit smoking in 12/2018, but has restarted. He uses marijuana (edilbel) daily for pain. He is recovering alcoholic and he drinks alcohol rarely at this point. He has history of illicit drug use including Phen-Fen a means, LSD, cocaine, heroin and quit all of this 9 years ago. 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 Past Drug Use History: Marijuana Additional Drug Use History / Comment(s): He states in the past he has used marijuana, heroin, crystal meth, cocaine and crack but none of those drugs for about 9 yrs. - Past Family History Father Family Medical History: Cancer Additional Family Medical History / Comment(s): Father of lung cancer at the age of 62. He was a smoker. Mother Family Medical History: Cancer, Diabetes Mellitus, Hypertension Additional Family Medical History / Comment(s): Mother at age 78 from brainstem cancer. Brother(s) Additional Family Medical History / Comment(s): Patient's 1 brother with history of AAA. Patient has 4 sisters and he does not know any of their medical history. Patient's 1 son and 1 daughter living. He had one daughter that at 7 weeks old from a congenital heart. Medications and Allergies Home Medications Medication Instructions Recorded Confirmed Type Metoprolol Succinate (ER) [Toprol 50 mg PO DAILY 10/30/20 03/25/21 History XL] hydroCHLOROthiazide [Hydrodiuril] 12.5 mg PO DAILY 10/30/20 03/25/21 History Clopidogrel [Plavix] 75 mg PO DAILY #30 tab 11/02/20 03/25/21 Rx Montelukast [Singulair] 10 mg PO HS 11/23/20 03/25/21 History Nitroglycerin Sl Tabs [Nitrostat] 0.4 mg SL Q5M PRN #25 tab 11/30/20 03/25/21 Rx predniSONE 60 mg PO DAILY #30 tab 03/22/21 03/25/21 Rx Aspirin 81 mg PO DAILY 03/25/21 03/25/21 History Atorvastatin Calcium [Lipitor] 80 mg PO HS 03/25/21 03/25/21 History Azithromycin [Zithromax Z-pack (6 See Taper PO DIRECTED 03/25/21 03/25/21 History tabs)] Isosorbide Mononitrate ER [Imdur] 60 mg PO DAILY 03/25/21 03/25/21 History Allergies Allergy/AdvReac Type Severity Reaction Status Date / Time levofloxacin [From Levaquin] AdvReac Nausea & Verified 03/25/21 17:01 Vomiting Physical Exam Vitals: Vital Signs Temp Pulse Pulse Resp BP Pulse Ox 03/26/21 15:17 100 20 03/26/21 15:00 98.3 F 96 18 108/69 97 03/26/21 12:17 100 22 03/26/21 12:03 102 H 20 03/26/21 08:31 111 H 20 03/26/21 08:20 110 H 20 03/26/21 08:10 102 H 20 03/26/21 08:00 18 L 26 H 12/29/21 07:00 97.8 F 67 18 131/72 97 03/26/21 06:05 102 H 03/26/21 05:54 100 03/26/21 02:00 97.9 F 90 22 137/75 95 03/26/21 01:31 18 03/26/21 00:57 97 03/26/21 00:43 87 03/25/21 20:05 99 03/25/21 20:00 98.2 F 89 23 122/78 97 03/25/21 19:56 101 H 03/25/21 19:50 99 03/25/21 19:32 94 18 03/25/21 18:06 18 03/25/21 17:51 97.5 F L 94 18 133/83 97 03/25/21 16:12 98 03/25/21 15:54 100 03/25/21 15:47 96 18 96 Intake and Output 03/26/21 03/26/21 03/26/21 06:59 14:59 22:59 Intake Total 500 Balance 500 Intake: Oral 500 Other: # Voids 2 3 Results CBC & Chem 7: 03/27/21 06:21 03/27/21 06:21 Labs: Abnormal Lab Results - Last 24 Hours (Table) 03/25/21 03/25/21 03/26/21 Range/Units 17:50 21:24 00:16 Neutrophils # (1.3-7.7) k/uL Glucose (70-110) mg/dL Plasma Lactic Acid Rito 2.4 H* 3.5 H* 5.6 H* (0.7-2.0) mmol/L 03/26/21 03/26/21 03/26/21 Range/Units 04:14 04:14 04:14 Neutrophils # 8.9 H (1.3-7.7) k/uL Glucose 199 H (70-110) mg/dL Plasma Lactic Acid Rito 4.6 H* (0.7-2.0) mmol/L
[2021-03-27] MEDS: HEPARIN SODIUM,PORCINE/PF 5,000 UNIT/0.5 ML SYRINGE SQ SCH ×2 (10:19→20:13)
[2021-03-27] MEDS: guaiFENesin 600 MG TABLET.ER PO SCH ×2 (10:20→20:13)
[2021-03-27] MEDS: METOPROLOL SUCCINATE (ER) 50 MG TAB.ER.24H PO SCH (10:20)
[2021-03-27] MEDS: hydroCHLOROthiazide 12.5 MG CAP PO SCH (10:20)
[2021-03-27] MEDS: PANTOPRAZOLE 40 MG TABLET PO SCH (10:20)
[2021-03-27] MEDS: ASPIRIN 81 MG PO SCH (10:21)
[2021-03-27] MEDS: CLOPIDOGREL 75 MG TAB PO SCH (10:22)
[2021-03-27] MEDS: ISOSORBIDE MONONITRATE ER 60 MG TAB.ER.24H PO SCH (10:22)
[2021-03-27 13:03] LABS: Amphetamine Screen,Urine Not Detected (NotDetected); Barbiturate Screen,Urine Not Detected (NotDetected); Benzodiazepines Screen,Urine Not Detected (NotDetected); Cocaine Screen,Urine Not Detected (NotDetected); Methadone Screen, Urine Not Detected (NotDetected); Opiate Screen,Urine Not Detected (NotDetected); Oxycodone Screen, Urine Not Detected (NotDetected); Phencyclidine Screen,Urine Not Detected (NotDetected); Tricyclic Antidepressant,Urine Not Detected (NotDetected); Urn Cannabinoid Scrn Detected (NotDetected)
[2021-03-27] MEDS: SODIUM CHLORIDE 0.9% 1,000 ML IV SCH (13:41)
--- NOTE | 2021-03-27 20:11 | PN ---
PROGRESS NOTE DATE OF SERVICE: 03/27/2021 This 60-year-old gentleman with a past medical history of multiple medical problems, including chronic obstructive pulmonary disease, acute exacerbation, is on IV steroids, antibiotics and bronchodilators. Dr. Hudson is following the patient closely. No chest pain. No palpitations. No fever. PHYSICAL EXAMINATION: Alert and oriented x3. Pulse is 70, blood pressure 111/67, respiration 22, temperature 97.9, pulse ox 96% on room air. HEENT: Conjunctivae normal. NECK: No jugular venous distention. CARDIOVASCULAR: S1, S2 muffled. RESPIRATION: Breath sounds diminished at the bases. A few scattered rhonchi. ABDOMEN: Soft. NERVOUS SYSTEM: No focal deficit. LABS: WBC 17.2, hemoglobin 12.5 and lactic acid is still elevated at 2.8. ASSESSMENT: 1. Chronic obstructive pulmonary disease, acute exacerbation, with acute purulent tracheobronchitis with possible early bronchopneumonia with failure of outpatient treatment, possibly sepsis. 2. Hyponatremia. 3. Elevated lactic acid, possibly secondary to dehydration and sepsis, which is persistently elevated. 4. Decreased CO2. 5. History of coronary artery disease. 6. History of chronic obstructive pulmonary disease. 7. Hypertension. 8. Hyperlipidemia. 9. History of myocardial infarction. 10.History of adenoidectomy. 11.History of coronary artery disease, stent. 12.History of hernia repair. 13.History of tonsillectomy. 14.History of degenerative joint disease. 15.FULL CODE. RECOMMENDATIONS AND DISCUSSION: I recommend to continue current medications, continue with the monitoring, symptomatic treatment. Otherwise at this time I recommend continuing with the bronchodilators. The cultures are negative so far. Recommend infectious disease evaluation also. MMODL / IJN: [id number] /
[2021-03-27] MEDS: MONTELUKAST 10 MG TAB PO SCH (20:13)
[2021-03-27] MEDS: ATORVASTATIN 80 MG TAB PO SCH (20:13)
--- NOTE | 2021-03-27 23:14 | PN ---
PROGRESS NOTE DATE OF SERVICE: 03/27/2021 REASON FOR FOLLOWUP: Lactic acidosis. INTERVAL HISTORY: The patient is afebrile. The patient is still complaining of shortness of breath. He did have a cough and is bringing up some sputum. No chest pain. No abdominal pain or diarrhea. PHYSICAL EXAMINATION: Blood pressure 119/71 with a pulse of 80, temperature 98.3. He is 95% on room air. General description is a middle-aged male up in the bed in no distress. Respiratory system: Unlabored breathing. Coarse breath sounds bilaterally. No wheeze. Heart S1, S2. Regular rate and rhythm. Abdomen soft, no tenderness. LABS: Hemoglobin is , white count 17.24, creatinine 0.8. Lactic acid 2.8. Procalcitonin is 0.04. DIAGNOSTIC IMPRESSION AND PLAN: Patient presented to hospital with shortness of breath and cough in this patient who more likely has COPD exacerbation with tracheobronchitis; clinically not behaving as pneumonia. The patient did have normal procalcitonin. CRP is only 1. Elevated lactic acid, more likely because of bronchoconstriction. Antibiotics to be discontinued and patient monitored closely off antibiotic therapy. MMODL / IJN: [id number] /
[2021-03-28] MEDS: SODIUM CHLORIDE 0.9% 1,000 ML IV SCH ×3 (00:16→17:31)
[2021-03-28] MEDS: IPRATROPIUM-ALBUTEROL 3 ML NEB INHALATION PRN ×6 (01:50→23:19)
[2021-03-28] MEDS: methylPREDNISolone SOD SUCCI 125 MG/2 ML VIAL IV SCH ×4 (05:12→21:33)
[2021-03-28] MEDS: BUDESONIDE 1 MG/2 ML NEBU INHALATION SCH ×2 (07:38→19:42)
[2021-03-28] MEDS: FORMOTEROL FUMARATE 20 MCG/2 ML NEBU INHALATION SCH ×2 (07:38→19:42)
[2021-03-28] MEDS: HEPARIN SODIUM,PORCINE/PF 5,000 UNIT/0.5 ML SYRINGE SQ SCH ×2 (08:12→21:33)
[2021-03-28] MEDS: ISOSORBIDE MONONITRATE ER 60 MG TAB.ER.24H PO SCH (08:12)
[2021-03-28] MEDS: ASPIRIN 81 MG PO SCH (08:13)
[2021-03-28] MEDS: hydroCHLOROthiazide 12.5 MG CAP PO SCH (08:13)
[2021-03-28] MEDS: METOPROLOL SUCCINATE (ER) 50 MG TAB.ER.24H PO SCH (08:13)
[2021-03-28] MEDS: CLOPIDOGREL 75 MG TAB PO SCH (08:14)
[2021-03-28] MEDS: guaiFENesin 600 MG TABLET.ER PO SCH ×2 (08:14→21:33)
[2021-03-28] MEDS: PANTOPRAZOLE 40 MG TABLET PO SCH (08:14)
[2021-03-28] MEDS: ACETAMINOPHEN TAB 325 MG TAB PO PRN (10:28)
--- NOTE | 2021-03-28 17:57 | PN ---
PROGRESS NOTE DATE OF SERVICE: 03/28/2021 This 60-year-old gentleman who was admitted with COPD, acute exacerbation, has significant cough and sputum. No chest pain. No palpitations. No fever. The patient has elevated lactic acid, which is rather persistent. The cultures are negative so far. PHYSICAL EXAMINATION: Alert and oriented x3. Pulse is 105, blood pressure is 163/70, respiration 18, temperature 97.9, pulse ox 94% on room air. HEENT: Conjunctivae normal. NECK: No jugular venous distention. CARDIOVASCULAR: S1, S2 muffled. RESPIRATION: Breath sounds diminished at the bases. A few scattered rhonchi and crackles. ABDOMEN: Soft, nontender. LEGS: No edema. No swelling. NERVOUS SYSTEM: No focal deficit. LABS: WBC 17.24. Lactic acid 2.8 and 2.1. ASSESSMENT: 1. Chronic obstructive pulmonary disease, acute exacerbation, with acute purulent tracheobronchitis with possible bronchopneumonia with failure of outpatient treatment with early sepsis. 2. Hyponatremia. 3. Elevated lactic acid present secondary to dehydration and sepsis, which is currently elevated. 4. Decreased CO2. 5. History of coronary artery disease. 6. History of chronic obstructive pulmonary disease. 7. Hypertension. 8. Hyperlipidemia. 9. History of myocardial infarction. 10.History of adenoidectomy. 11.History of coronary artery disease, stent. 12.History of hernia repair. 13.History of tonsillectomy. 14.History of degenerative joint disease. 15.FULL CODE. RECOMMENDATIONS AND DISCUSSION: I recommend to continue current medications, continue with the monitoring, symptomatic treatment. Repeat labs. Repeat lactic acid. Continue with the antibiotics. Infectious disease input appreciated. Follow closely with Dr. Bender and Dr. Hudson. Further recommendations to follow. MMODL / IJN: [id number] /
[2021-03-28] MEDS: MONTELUKAST 10 MG TAB PO SCH (21:33)
[2021-03-28] MEDS: ATORVASTATIN 80 MG TAB PO SCH (21:33)
[2021-03-28] MEDS: TEMAZEPAM 15 MG CAP PO PRN (21:34)
--- NOTE | 2021-03-29 00:48 | PN ---
PROGRESS NOTE DATE OF SERVICE: 03/28/2021 REASON FOR FOLLOW UP: Lactic acidosis, likely COPD exacerbation. INTERVAL HISTORY: The patient is afebrile. The patient is breathing more comfortably. Denies having any chest pain. No worsening cough or sputum production. No abdominal pain, no diarrhea. PHYSICAL EXAMINATION: Blood pressure 119/80 with a pulse of 88, temperature is 97.8. He is 92% on room air. General description is a middle-aged male lying in bed in no distress. Respiratory system: Unlabored breathing, clear to auscultation anteriorly. heart S1, S2. Regular rate and rhythm. Abdomen soft, no tenderness. LABS: Lactic acid is 2.4. DIAGNOSTIC IMPRESSION AND PLAN: Patient with elevated lactic acid, more likely due to underlying COPD exacerbation with ( ) obstruction. Clinically not behaving as sepsis. The patient has normal blood pressure and blood culture and antibiotics are discouraged. Continue with steroids and bronchodilator. MMODL / IJN: [id number] /
[2021-03-29] MEDS: IPRATROPIUM-ALBUTEROL 3 ML NEB INHALATION PRN ×6 (03:25→23:54)
[2021-03-29] MEDS: methylPREDNISolone SOD SUCCI 125 MG/2 ML VIAL IV SCH ×4 (03:55→22:18)
[2021-03-29] MEDS: SODIUM CHLORIDE 0.9% 1,000 ML IV SCH ×2 (03:56→18:05)
[2021-03-29] MEDS: FORMOTEROL FUMARATE 20 MCG/2 ML NEBU INHALATION SCH ×2 (08:11→20:10)
[2021-03-29] MEDS: BUDESONIDE 1 MG/2 ML NEBU INHALATION SCH ×2 (08:11→20:10)
[2021-03-29 08:46] LABS: HCT 39.1 % (39.6-50.0); HGB 12.5 g/dL (13.0-17.0); MCH 28.8 pg (27.0-32.0); MCV 90.1 fL (80.0-97.0); Mean Platelet Volume 10.9 fL (9.5-12.2); Platelet Count 250 X 10*3/uL (140-440); RBC 4.34 X 10*6/uL (4.40-5.60); RDW 13.6 % (11.5-14.5); WBC 16.49 X 10*3/uL (4.50-10.00)
[2021-03-29] MEDS: hydroCHLOROthiazide 12.5 MG CAP PO SCH (09:11)
[2021-03-29] MEDS: ASPIRIN 81 MG PO SCH (09:11)
[2021-03-29] MEDS: guaiFENesin 600 MG TABLET.ER PO SCH ×2 (09:11→20:18)
[2021-03-29] MEDS: CLOPIDOGREL 75 MG TAB PO SCH (09:11)
[2021-03-29] MEDS: ISOSORBIDE MONONITRATE ER 60 MG TAB.ER.24H PO SCH (09:11)
[2021-03-29] MEDS: PANTOPRAZOLE 40 MG TABLET PO SCH (09:11)
[2021-03-29] MEDS: METOPROLOL SUCCINATE (ER) 50 MG TAB.ER.24H PO SCH (09:11)
[2021-03-29 09:12] LABS: Anion Gap 11.8 mmol/L (10.00-18.00); BUN/Creat Ratio 19.33 Ratio (12.00-20.00); Blood Urea Nitrogen 17.4 mg/dL (9.0-27.0); Calcium 9.2 mg/dL (8.7-10.3); Carbon Dioxide 24.2 mmol/L (20.0-27.5); Non-African American GFR(CKD) 93.2 (60.0-200.0); Potassium 4.8 mmol/L (3.5-5.5)
[2021-03-29] MEDS: HEPARIN SODIUM,PORCINE/PF 5,000 UNIT/0.5 ML SYRINGE SQ SCH ×2 (09:12→20:17)
[2021-03-29 09:29] LABS: Acanthocytes 2+; Basophils # (M) 0 X 10*3/uL (0.00-0.10); Eosinophils # (M) 0 X 10*3/uL (0.04-0.35); Lymphocytes # (M) 0.82 X 10*3/uL (0.90-5.00); Monocytes # (M) 0.49 X 10*3/uL (0.20-1.00); Myelocytes % 1 % (0-0); Neutrophils # (M) 15.01 X 10*3/uL (2.00-8.90); Neutrophils % (M) 91 %
--- NOTE | 2021-03-29 12:09 | P.NPCON ---
History of Present Illness - Reason for Consult metabolic acidosis - History of Present Illness Reason for consultation: Lactic acidosis History of present illness: Patient is a 60-year-old male seen in consultation for lactic acidosis. Patient presented to the hospital on 03/17/2021 due to cough and shortness of breath. He did see his primary care physician prior to admission and was advised to go to the hospital. He is currently being treated for COPD exacerbation and is also on antibiotics. No history of diabetes. He does have history of high blood pressure and is maintained on hydrochlorothiazide. Patient lactic acid level was 2.4 on admission and peaked at 5.6. It was 3.4 today. Patient denies history of malignancy. No history of alcohol use. He is receiving beta agonists in the form of albuterol as well as formoterol. Patient's oxygen saturation has been in the range of 92-99% this admission. He's currently on 3 L nasal cannula. Vital signs are stable. General: The patient appeared well nourished and normally developed. HEENT: Head exam is unremarkable. On nasal cannula. LUNGS: Breath sounds decreased. HEART: Rate and Rhythm are regular. ABDOMEN: Soft, no distention. EXTREMITITES: No edema. Past Medical History Past Medical History: Coronary Artery Disease (CAD), COPD, Hyperlipidemia, Hypertension, Myocardial Infarction (DC) Additional Past Medical History / Comment(s): Pt states he has hx of 3 r espiratory arrests and was vented, generalized arthritis, Last Myocardial Infarction Date:: History of Any Multi-Drug Resistant Organisms: None Reported Past Surgical History: Adenoidectomy, Heart Catheterization With Stent, Hernia Repair, Joint Replacement, Orthopedic Surgery, Tonsillectomy Additional Past Surgical History / Comment(s): R inguinal hernia repair, L rotator cuff repair, bialteral total knee arthroplasties, R shoulder spur removal, teeth extracted, colonoscopy-normal. third hernia repair, left side, stents x2 2020 ear Past Anesthesia/Blood Transfusion Reactions: No Reported Reaction Date of Last Stent Placement:: 2018 Past Psychological History: No Psychological Hx Reported Additional Psychological History / Comment(s): He uses no assistive devices. Smoking Status: Former smoker Past Alcohol Use History: Occasional Additional Past Alcohol Use History / Comment(s): patient quit smoking in 12/2018, but has restarted. He uses marijuana (edilbel) daily for pain. He is recovering alcoholic and he drinks alcohol rarely at this point. He has history of illicit drug use including Phen-Fen a means, LSD, cocaine, heroin and quit all of this 9 years ago. 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 Past Drug Use History: Marijuana Additional Drug Use History / Comment(s): He states in the past he has used marijuana, heroin, crystal meth, cocaine and crack but none of those drugs for about 9 yrs. - Past Family History Father Family Medical History: Cancer Additional Family Medical History / Comment(s): Father of lung cancer at the age of 62. He was a smoker. Mother Family Medical History: Cancer, Diabetes Mellitus, Hypertension Additional Family Medical History / Comment(s): Mother at age 78 from brainstem cancer. Brother(s) Additional Family Medical History / Comment(s): Patient's 1 brother with history of AAA. Patient has 4 sisters and he does not know any of their medical history. Patient's 1 son and 1 daughter living. He had one daughter that at 7 weeks old from a congenital heart. Medications and Allergies Home Medications Medication Instructions Recorded Confirmed Type Metoprolol Succinate (ER) [Toprol 50 mg PO DAILY 10/30/20 03/25/21 History XL] hydroCHLOROthiazide [Hydrodiuril] 12.5 mg PO DAILY 10/30/20 03/25/21 History Clopidogrel [Plavix] 75 mg PO DAILY #30 tab 11/02/20 03/25/21 Rx Montelukast [Singulair] 10 mg PO HS 11/23/20 03/25/21 History Nitroglycerin Sl Tabs [Nitrostat] 0.4 mg SL Q5M PRN #25 tab 11/30/20 03/25/21 Rx predniSONE 60 mg PO DAILY #30 tab 03/22/21 03/25/21 Rx Aspirin 81 mg PO DAILY 03/25/21 03/25/21 History Atorvastatin Calcium [Lipitor] 80 mg PO HS 03/25/21 03/25/21 History Azithromycin [Zithromax Z-pack (6 See Taper PO DIRECTED 03/25/21 03/25/21 History tabs)] Isosorbide Mononitrate ER [Imdur] 60 mg PO DAILY 03/25/21 03/25/21 History Allergies Allergy/AdvReac Type Severity Reaction Status Date / Time [facility] [[facility] AdvReac Nausea & Verified 03/25/21 17:01 Vomiting Physical Exam Vitals: Vital Signs Temp Pulse Pulse Pulse Resp BP BP 03/29/21 08:27 94 03/29/21 08:14 88 03/29/21 08:00 77 17 03/29/21 07:38 98.0 F 77 17 126/77 03/29/21 03:36 88 03/29/21 03:26 90 03/29/21 01:37 97.7 F 87 18 135/76 03/28/21 23:29 92 03/28/21 23:19 96 03/28/21 20:05 94 03/28/21 19:57 91 03/28/21 19:56 91 03/28/21 19:51 97.8 F 88 28 H 119/80 03/28/21 19:44 91 03/28/21 15:58 93 03/28/21 15:53 105 H 20 03/28/21 15:49 90 03/28/21 14:05 97.9 F 101 H 18 163/73 03/28/21 12:38 106 H Pulse Ox Pulse Ox 03/29/21 08:27 03/29/21 08:14 95 03/29/21 08:00 03/29/21 07:38 97 03/29/21 03:36 03/29/21 03:26 03/29/21 01:37 99 03/28/21 23:29 03/28/21 23:19 03/28/21 20:05 03/28/21 19:57 03/28/21 19:56 03/28/21 19:51 92 L 03/28/21 19:44 03/28/21 15:58 03/28/21 15:53 03/28/21 15:49 94 L 03/28/21 14:05 94 L 03/28/21 12:38 94 L Intake and Output 03/28/21 03/29/21 03/29/21 22:59 06:59 14:59 Intake Total 240 540 Balance 240 540 Intake: Oral 240 540 Other: Voiding Method Toilet # Voids 1 2 Results - Lab Results Most recent lab results Calcium 9.2 mg/dL (8.7-10.3) 03/29/21 03:21 03/29/21 03:21 03/29/21 03:21 Assessment and Plan Plan: Assessment: 1. Lactic acidosis secondary to hypoxia and beta agonist use. No significant hypotension. No history of diabetes or malignancy. No history of liver disease 2. COPD exacerbation. 3. Benign hypertension. Plan: Wean or hold beta agonists if possible. Maintain IV fluids. Stop hctz. Continue to monitor. Thank you for the consultation. I will continue to follow the patient with you during his hospital stay.
--- NOTE | 2021-03-29 18:22 | PN ---
PROGRESS NOTE DATE OF SERVICE: 03/29/2021 This 60-year-old gentleman admitted with COPD exacerbation, acute purulent tracheobronchitis is improving significantly, but the lactic acid slightly elevated. No chest pain. No palpitations. No fever. PHYSICAL EXAMINATION: Alert and oriented x3. Pulse 83, blood pressure 130/86, respiration 17, temperature 98.2, pulse ox 94% on room air. HEENT: Conjunctivae normal. Oral mucosa moist. NECK: No jugular venous distention. No lymph node enlargement. CARDIOVASCULAR: S1, S2, muffled. No S3, no S4, RESPIRATORY: Diminished breath sounds at the bases. A few scattered rhonchi and crackles. ABDOMEN: Soft, obese. LEGS: No edema, no swelling. NERVOUS SYSTEM: No focal deficits. LABS: WBC 16.4, hemoglobin 12.5. Lactic acid 3.4. ASSESSMENT: 1. Chronic obstructive pulmonary disease acute exacerbation with acute purulent tracheobronchitis with possible bronchopneumonia with failure of outpatient treatment with early sepsis. 2. Hyponatremia. 3. Elevated lactic acid present secondary to dehydration, sepsis, which is currently elevated. 4. Decreased CO2. 5. History of coronary artery disease. 6. History of chronic obstructive pulmonary disease. 7. Hypertension. 8. Hyperlipidemia. 9. History of myocardial infarction. 10.History of adenoidectomy. 11.History of CAD/stent. 12.History of hernia repair. 13.History of tonsillectomy. 14.History of degenerative joint disease. 15.FULL CODE. RECOMMENDATIONS AND DISCUSSION: Recommend to continue current management and symptomatic treatment. Continue the bronchodilators. Continue steroids. Continue the rest of medications. Closely follow. I would also recommend nephrology evaluation for the persistently elevated lactic acid of undetermined etiology. MMODL / IJN: [id number] /
[2021-03-29] MEDS: MONTELUKAST 10 MG TAB PO SCH (20:18)
[2021-03-29] MEDS: ATORVASTATIN 80 MG TAB PO SCH (20:18)
[2021-03-29] MEDS: TEMAZEPAM 15 MG CAP PO PRN (22:18)
--- NOTE | 2021-03-29 23:08 | PN ---
PROGRESS NOTE DATE OF SERVICE: 03/29/2021 REASON FOR FOLLOWUP: Lactic acidosis. INTERVAL HISTORY: The patient is afebrile. The patient is breathing more comfortably. The patient denies having any chest pain. Cough has decreased in intensity. No nausea, no vomiting. No abdominal pain or diarrhea. PHYSICAL EXAMINATION: Blood pressure 130/80 with a pulse of 83, temperature 98.3. He is 95% on room air. General description is an elderly male up in the bed in no distress. Respiratory system: Unlabored breathing, decreased intensity of breath sounds. No wheeze. Heart S1, S2. Regular rate and rhythm. Abdomen soft, no tenderness. LABS: White count 16.49, creatinine 0.9. Lactic acid remains elevated. DIAGNOSTIC IMPRESSION AND PLAN: 1. Patient with lactic acidosis, more likely related to the underlying bronchoconstriction; clinically not behaving as an abscess or pneumonia. Continue with the bronchodilator, steroids. 2. Elevated white count, more likely steroid effect. MMODL / IJN: [id number] /
[2021-03-30] MEDS: methylPREDNISolone SOD SUCCI 125 MG/2 ML VIAL IV SCH ×4 (04:13→21:12)
[2021-03-30] MEDS: IPRATROPIUM-ALBUTEROL 3 ML NEB INHALATION PRN ×5 (05:11→19:57)
[2021-03-30] MEDS: ASPIRIN 81 MG PO SCH (07:40)
[2021-03-30] MEDS: METOPROLOL SUCCINATE (ER) 50 MG TAB.ER.24H PO SCH (07:40)
[2021-03-30] MEDS: ISOSORBIDE MONONITRATE ER 60 MG TAB.ER.24H PO SCH (07:40)
[2021-03-30] MEDS: PANTOPRAZOLE 40 MG TABLET PO SCH (07:41)
[2021-03-30] MEDS: CLOPIDOGREL 75 MG TAB PO SCH (07:41)
[2021-03-30] MEDS: guaiFENesin 600 MG TABLET.ER PO SCH ×2 (07:41→21:12)
[2021-03-30] MEDS: FORMOTEROL FUMARATE 20 MCG/2 ML NEBU INHALATION SCH ×2 (07:54→19:57)
[2021-03-30] MEDS: BUDESONIDE 1 MG/2 ML NEBU INHALATION SCH ×2 (07:54→19:57)
[2021-03-30 09:30] VITALS: RESP 18
--- NOTE | 2021-03-30 09:40 | P.PN ---
Subjective Patient is seen in follow-up for lactic acidosis. He is being treated for COPD and is receiving nebulized albuterol as well as formoterol. He denies chest pain or shortness of breath. Oral intake is good. He wants to go home. Vital signs are stable. General: The patient appeared well nourished and normally developed. HEENT: Head exam is unremarkable. LUNGS: Breath sounds decreased. HEART: Rate and Rhythm are regular. ABDOMEN: Soft, no distention. EXTREMITITES: No edema. Objective - Vital Signs Vital signs: Vital Signs Temp 98.3 F 03/30/21 08:00 Pulse 96 03/30/21 08:15 Resp 18 03/30/21 08:00 BP 141/83 03/30/21 08:00 Pulse Ox 94 L 03/30/21 08:00 Intake & Output 03/29/21 03/30/21 03/30/21 18:59 06:59 18:59 Intake Total 898 425 180 Output Total 0 Balance 898 425 180 Intake: Oral 898 425 180 Output: Emesis 0 Other: Voiding Method Toilet Toilet - Labs CBC & Chem 7: 03/29/21 03:21 03/29/21 03:21 Labs: Abnormal Lab Results - Last 24 Hours (Table) 03/30/21 Range/Units 06:27 Plasma Lactic Acid Rito 4.3 H* (0.7-2.0) mmol/L Microbiology - Last 24 Hours (Table) 03/29/21 15:57 Fungal Culture - Preliminary Sputum 03/26/21 16:23 Blood Culture - Preliminary Blood No Growth after 72 hours 03/25/21 15:15 Blood Culture - Preliminary Blood No Growth after 96 hours 03/25/21 15:00 Blood Culture - Preliminary Blood No Growth after 96 hours 03/27/21 16:00 Gram Stain - Final Sputum Sputum Culture - Final Assessment and Plan Plan: Assessment: 1. Lactic acidosis secondary to hypoxia and beta agonist use. No significant hypotension. No history of diabetes or malignancy. No history of liver disease. 2. COPD exacerbation. 3. Benign hypertension. Plan: Wean or hold beta agonists if possible - defer to primary team and pulmonology. Maintain gentle IV hydration. Stopped hctz. Continue to monitor.
[2021-03-30] MEDS: HEPARIN SODIUM,PORCINE/PF 5,000 UNIT/0.5 ML SYRINGE SQ SCH ×2 (10:22→21:13)
--- NOTE | 2021-03-30 15:05 | P.PN ---
Subjective Progress Note Date: 03/30/21 Principal diagnosis: Acute COPD exacerbation Purulent tracheobronchitis Prior history of WI and coronary artery disease Sepsis due to tracheobronchitis of bronchopneumonia Elevated lactic acid Hypertension hypertensive cardiovascular disease Dyslipidemia 03/30/2021, patient seen eval examined during the rounds labs reviewed medications reviewed her shortness of breath cough wheezing and significantly improved, patient remain on IV steroids breathing treatment antibiotics however there are's being switched to oral, agree with discharge planning for tomorrow Patient is a 60-year-old with the 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 patient also had problems associated with obstructive sleep apnea coronary artery disease patient was working outside for several hours after that started having chest congestion cough and sputum production which lately done green decided to come into the hospital for further evaluation blood cultures have been negative, his chest x-ray negative for any acute processes on specific questioning denies any dizziness headache denies any loss of questionable hemiparesis, denies any chest pain or radiation of pain have ongoing chest congestion tried any night sweats fever or chills patient is not smoking anymore, his labs were significant for neck. Also 4.6 and I will not improved to 2.3, melenas the Objective - Vital Signs Vital signs: Vital Signs Temp 97.9 F 03/30/21 14:00 Pulse 88 03/30/21 14:00 Resp 18 03/30/21 14:00 BP 132/83 03/30/21 14:00 Pulse Ox 94 L 03/30/21 14:00 Intake & Output 03/29/21 03/30/21 03/30/21 18:59 06:59 18:59 Intake Total 898 425 180 Output Total 0 Balance 898 425 180 Intake: Oral 898 425 180 Output: Emesis 0 Other: Voiding Method Toilet Toilet - Exam - Constitutional General appearance: mild distress - EENT Eyes: EOMI, PERRLA Ears: bilateral: normal - Neck Carotids: bilateral: upstroke normal Thyroid: bilateral: normal size - Respiratory Respiratory: bilateral: diminished, rhonchi, wheezing, negative: CTA, dullness - Cardiovascular Rhythm: regular Heart sounds: normal: S1, S2 - Gastrointestinal General gastrointestinal: soft - Integumentary Integumentary: normal turgor - Neurologic Neurologic: CNII-XII intact - Musculoskeletal Musculoskeletal: gait normal, generalized weakness, strength equal bilaterally - Psychiatric Psychiatric: A&O x's 3, appropriate affect, intact judgment & insight - Labs CBC & Chem 7: 03/29/21 03:21 03/29/21 03:21 Labs: Abnormal Lab Results - Last 24 Hours (Table) 03/30/21 Range/Units 06:27 Plasma Lactic Acid Rito 4.3 H* (0.7-2.0) mmol/L Microbiology - Last 24 Hours (Table) 03/29/21 15:57 Fungal Culture - Preliminary Sputum 03/26/21 16:23 Blood Culture - Preliminary Blood No Growth after 72 hours 03/25/21 15:15 Blood Culture - Preliminary Blood No Growth after 96 hours 03/25/21 15:00 Blood Culture - Preliminary Blood No Growth after 96 hours 03/27/21 16:00 Gram Stain - Final Sputum Sputum Culture - Final Assessment and Plan Assessment: Elevated lactic acid likely multifactorial due to bronchodilator steroids and better to agonist Acute COPD exacerbation Purulent tracheobronchitis Prior history of WI and coronary artery disease Sepsis due to tracheobronchitis of bronchopneumonia Hypertension hypertensive cardiovascular disease Dyslipidemia Plan: IV steroids breathing treatments agree with IV antibiotics sputum for Gram stain and culture follow clinical course closely, can be changed to oral at the time of discharge, agree with discharge running for tomorrow Would recommend follow-up in office in 4 weeks, we'll sign off and this patient as I'm going out of town anticipated that patient likely will go home tomorrow Time with Patient: Greater than 30
[2021-03-30] MEDS: SODIUM CHLORIDE 0.9% 1,000 ML IV SCH (15:29)
--- NOTE | 2021-03-30 18:22 | PN ---
PROGRESS NOTE DATE OF SERVICE: 03/30/2021 This 60-year-old gentleman was admitted with COPD acute exacerbation, acute purulent tracheobronchitis and possible bronchopneumonia is closely monitored. No chest pain. No palpitations. No fever. The patient has an incessant cough at this time. PHYSICAL EXAMINATION: Alert and oriented x3. Pulse 90, blood pressure is 133/80, respiration 18, temperature 97.9, pulse ox 94% on 3 L. HEENT: Conjunctivae normal. Oral mucosa moist. NECK: No jugular venous distention. No lymph node enlargement. CARDIOVASCULAR: S1, S2, muffled. No S3, no S4, RESPIRATORY: Diminished breath sounds at the bases. A few scattered rhonchi. ABDOMEN: Soft, nontender. LEGS: No edema, no swelling. NERVOUS SYSTEM: No focal deficits. LAB STUDIES: WBC 16.9 and lactic acid is 4.3. Please note the patient is also followed by Dr. Kaiser and Dr. Hudson also. ASSESSMENT: 1. Lactic acidosis, possibly secondary to hypoxia and as well as ( ) per Dr. Brown's. 2. Acute exacerbation with acute purulent tracheobronchitis with possible bronchopneumonia with failure of outpatient treatment with early sepsis, present on admission. 3. Hyponatremia. 4. Elevated lactic acid, present on admission with secondary dehydration, sepsis or continued persistent because of hypoxia as well as beta agonist usage per Nephrology. 5. Decreased CO2. 6. History of coronary artery disease. 7. Chronic obstructive pulmonary disease. 8. Hypertension. 9. Hyperlipidemia. 10.History of myocardial infarction. 11.History of adenoidectomy. 12.History of CAD/stent. 13.History of hernia repair. 14.History of tonsillectomy. 15.History of degenerative joint disease. 16.FULL CODE. RECOMMENDATIONS: Recommend to continue current management and symptomatic treatment. Otherwise, at this time I would recommend continue the current medications. I would also recommend an ABG to rule out the possibility of overt acidosis at this time. MMODL / IJN: [id number] /
[2021-03-30 19:37] LABS: ABG Base Excess 2.1 mmol/L; ABG HCO3 26 mmol/L (21-25); ABG Oxygen Saturation 96.3 % (94-97); ABG PCO2 37 mmHg (35-45); ABG PH 7.46 (7.35-7.45); ABG PO2 79 mmHg (83-108); ABG TCO2 27 mmol/L (19-24); Allen Test Performed? Yes
[2021-03-30] MEDS: ATORVASTATIN 80 MG TAB PO SCH (21:12)
[2021-03-30] MEDS: MONTELUKAST 10 MG TAB PO SCH (21:12)
--- NOTE | 2021-03-30 23:20 | PN ---
PROGRESS NOTE DATE OF SERVICE: 03/30/2021 REASON FOR FOLLOWUP: Lactic acidosis and tracheobronchitis. INTERVAL HISTORY: The patient is afebrile. The patient is feeling better, breathing comfortably. The patient denies having any chest pain or worsening cough or sputum production. No abdominal pain or diarrhea. PHYSICAL EXAMINATION: Blood pressure 132/83 with a pulse of 80, temperature 97.9. He is 94% on 3 L nasal cannula. General description is a middle-aged male up in the bed in no distress. Respiratory system: Unlabored breathing, decreased intensity of breath sounds. No wheeze. Heart S1, S2. Regular rate and rhythm. Abdomen soft, no tenderness. LABS: Lactate is 4.3. Procalcitonin was 0.04. Chest x-ray did not show any acute infiltrate. DIAGNOSTIC IMPRESSION AND PLAN: Patient admitted to hospital with acute chronic obstructive pulmonary disease exacerbation and possible tracheobronchitis, clinically not behaving as pneumonia. Normal procalcitonin. No fever. Admission white count normal. Continue with steroids and bronchodilator. Antibiotics can be safely discontinued. MMODL / IJN: [id number] /
[2021-03-31] MEDS: methylPREDNISolone SOD SUCCI 125 MG/2 ML VIAL IV SCH ×2 (03:58→09:11)
[2021-03-31] MEDS: FORMOTEROL FUMARATE 20 MCG/2 ML NEBU INHALATION SCH (07:48)
[2021-03-31] MEDS: BUDESONIDE 1 MG/2 ML NEBU INHALATION SCH (07:48)
[2021-03-31] MEDS: IPRATROPIUM-ALBUTEROL 3 ML NEB INHALATION PRN ×2 (07:48→11:24)
[2021-03-31] MEDS: guaiFENesin 600 MG TABLET.ER PO SCH (08:59)
[2021-03-31] MEDS: PANTOPRAZOLE 40 MG TABLET PO SCH (08:59)
[2021-03-31] MEDS: ASPIRIN 81 MG PO SCH (08:59)
[2021-03-31] MEDS: CLOPIDOGREL 75 MG TAB PO SCH (08:59)
[2021-03-31] MEDS: METOPROLOL SUCCINATE (ER) 50 MG TAB.ER.24H PO SCH (08:59)
[2021-03-31] MEDS: HEPARIN SODIUM,PORCINE/PF 5,000 UNIT/0.5 ML SYRINGE SQ SCH ×2 (09:01→09:15)
[2021-03-31] MEDS: ISOSORBIDE MONONITRATE ER 60 MG TAB.ER.24H PO SCH (09:01)
[2021-03-31] MEDS: SODIUM CHLORIDE 0.9% 1,000 ML IV SCH (09:13)
--- NOTE | 2021-03-31 10:51 | P.PN ---
Subjective Patient is seen in follow-up for lactic acidosis. He is being treated for COPD and is receiving nebulized albuterol as well as formoterol. He denies chest pain or shortness of breath. Oral intake is good. He wants to go home. No changes overnight. Vital signs are stable. General: The patient appeared well nourished and normally developed. HEENT: Head exam is unremarkable. LUNGS: Breath sounds decreased. HEART: Rate and Rhythm are regular. ABDOMEN: Soft, no distention. EXTREMITITES: No edema. Objective - Vital Signs Vital signs: Vital Signs Temp 97.6 F 03/31/21 07:43 Pulse 84 03/31/21 08:11 Resp 18 03/31/21 08:00 BP 129/81 03/31/21 07:43 Pulse Ox 95 03/31/21 07:49 Intake & Output 03/30/21 03/31/21 03/31/21 18:59 06:59 18:59 Intake Total 180 120 Balance 180 120 Intake: Oral 180 120 Other: Voiding Method Toilet Toilet # Voids 3 2 - Labs CBC & Chem 7: 03/29/21 03:21 03/29/21 03:21 Labs: Abnormal Lab Results - Last 24 Hours (Table) 03/30/21 Range/Units 19:30 ABG pH 7.46 H (7.35-7.45) ABG pO2 79 L (83-108) mmHg ABG HCO3 26 H (21-25) mmol/L ABG Total CO2 27 H (19-24) mmol/L Microbiology - Last 24 Hours (Table) 03/29/21 15:57 Fungal Culture - Preliminary Sputum Elaina albicans 03/26/21 16:23 Blood Culture - Preliminary Blood No Growth after 96 hours 03/25/21 15:00 Blood Culture - Preliminary Blood No Growth after 120 hours 03/25/21 15:15 Blood Culture - Preliminary Blood No Growth after 120 hours Assessment and Plan Plan: Assessment: 1. Lactic acidosis secondary to hypoxia and beta agonist use. No significant hypotension. No history of diabetes or malignancy. No history of liver disease. No evidence of acidosis on ABG - in fact, his pH is 7.46. 2. COPD exacerbation. 3. Benign hypertension. Stable. Plan: Wean or hold beta agonists if possible - defer to primary team and pulmonology. Maintain gentle IV hydration. Stopped hctz. Continue to monitor.
[2021-03-31 11:40] VITALS: PULSE 81
--- NOTE | 2021-03-31 14:00 | PN ---
PROGRESS NOTE DATE OF SERVICE: 03/31/2021 REASON FOR FOLLOWUP: Lactic acidosis. INTERVAL HISTORY: The patient is afebrile. The patient is breathing comfortably, currently on room air. The patient denies having any chest pain. No worsening cough or sputum production. No abdominal pain or diarrhea. PHYSICAL EXAMINATION: Blood pressure 129/81 with a pulse of 85, temperature 98.6 . General description is a middle-aged male up in the bed in no distress. Respiratory system: Unlabored breathing, decreased intensity of breath sounds. No wheeze. Heart S1, S2. Regular rate and rhythm. Abdomen soft, no tenderness. LABS: No new labs have been obtained today. Sputum with Elaina. DIAGNOSTIC IMPRESSION AND PLAN: 1. Patient admitted to hospital with chronic obstructive pulmonary disease exacerbation and tracheobronchitis, clinically not behaving as pneumonia. Continue with steroids and bronchodilator. No evidence of any sepsis. 2. Positive sputum culture with Elaina, likely colonizer, and no need for any antifungal. MMODL / IJN: [id number] /
[2021-03-31 14:10] VITALS: BP 143/82; TEMP 98.2
--- NOTE | 2021-03-31 18:19 | P.DS ---
Providers Date of admission: 03/26/21 10:50 Expected date of discharge: 03/31/21 Attending physician: Alvin Frazier Consults: 03/25/21 19:02 Consult Physician Routine Consulting Provider: Gabriel Hudson Consult Reason/Comments: copd Do you want consulting provider notified?: Yes 03/26/21 15:31 Consult Physician Routine Consulting Provider: Eriberto Bender Consult Reason/Comments: sepsis Do you want consulting provider notified?: Yes 03/27/21 18:08 Consult Physician Routine Consulting Provider: Eriberto Benedr Consult Reason/Comments: high lactic persistent Do you want consulting provider notified?: Yes 03/29/21 11:32 Consult Physician Routine Consulting Provider: Fab Brown Consult Reason/Comments: elevated lactic Do you want consulting provider notified?: Yes Primary care physician: Lora Cobb Hospital Course: Diagnosis on discharge: Acute exacerbation of chronic obstructive pulmonary disease Acute purulent bronchitis, with evidence of sepsis on admission Lactic acidosis on presentation nephrology consult requested Underlying history of coronary artery disease and myocardial infarction Underlying history of hypertension Underlying history of hyperlipidemia Hospital course: Marcel Jo is a 60-year-old male patient of Dr. Cobb who was admitted to [facility], on 03/25/2021 for acute bronchitis and acute exacerbation of chronic obstructive pulmonary disease he was seen by Dr. 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 Hudson metal finisher and was seen by nephrology Dr. Brown for lactic acidosis. Patient received IV Solu-Medrol, IV Rocephin, inhaled bronchodilators and inhaled steroids, he improved gradually, he was cleared by Dr. Hudson for discharge on oral antibiotics and oral steroids Patient was evaluated on 03/31/[address] Brown in regard to lactic acidosis he was not cleared for discharge his lactic acid actually went up from 3.4-4.[address] Brown's note stated to continue with IV fluid and continue to monitor. Patient insisted on going home and was slightly agitated, I was waiting for a call back from Dr. Brown . I had his discharge done, I had prescriptions prescription made for prednisone, Cefdinir, Mucinex, Pulmicort, DuoNeb, which were handed to his nurse, however patient was quite agitated and did not want to wait and left the hospital without taking his discharge papers or prescriptions. Plan - Discharge Summary Discharge Rx Participant: Yes New Discharge Prescriptions: New Cefdinir 300 mg PO Q12HR 7 Days #14 cap Ipratropium-Albuterol Nebulize [Duoneb 0.5 mg-3 mg/3 ml Soln] 3 ml INHALATION RT-Q4H PRN ml PRN Reason: Shortness Of Breath Or Wheezing guaiFENesin [Mucinex] 600 mg PO Q12HR tablet predniSONE 10 mg PO DIRECTED 12 Days #30 tab Budesonide [Pulmicort] 1 mg INHALATION RT-BID ml Continue Metoprolol Succinate (ER) [Toprol XL] 50 mg PO DAILY Clopidogrel [Plavix] 75 mg PO DAILY #30 tab Montelukast [Singulair] 10 mg PO HS Aspirin 81 mg PO DAILY Nitroglycerin Sl Tabs [Nitrostat] 0.4 mg SL Q5M PRN #25 tab PRN Reason: Chest Pain Isosorbide Mononitrate ER [Imdur] 60 mg PO DAILY Atorvastatin Calcium [Lipitor] 80 mg PO HS Discontinued predniSONE 60 mg PO DAILY #30 tab Azithromycin [Zithromax Z-pack (6 tabs)] See Taper PO DIRECTED hydroCHLOROthiazide [Hydrodiuril] 12.5 mg PO DAILY Discharge Medication List Metoprolol Succinate (ER) [Toprol XL] 50 mg PO DAILY 10/30/20 [History] Clopidogrel [Plavix] 75 mg PO DAILY #30 tab 11/02/20 [Rx] Montelukast [Singulair] 10 mg PO HS 11/23/20 [History] Nitroglycerin Sl Tabs [Nitrostat] 0.4 mg SL Q5M PRN #25 tab 11/30/20 [Rx] Aspirin 81 mg PO DAILY 03/25/21 [History] Atorvastatin Calcium [Lipitor] 80 mg PO HS 03/25/21 [History] Isosorbide Mononitrate ER [Imdur] 60 mg PO DAILY 03/25/21 [History] Budesonide [Pulmicort] 1 mg INHALATION RT-BID ml 03/31/21 [Rx] Cefdinir 300 mg PO Q12HR 7 Days #14 cap 03/31/21 [Rx] Ipratropium-Albuterol Nebulize [Duoneb 0.5 mg-3 mg/3 ml Soln] 3 ml INHALATION RT-Q4H PRN ml 03/31/21 [Rx] guaiFENesin [Mucinex] 600 mg PO Q12HR tablet 03/31/21 [Rx] predniSONE 10 mg PO DIRECTED 12 Days #30 tab 03/31/21 [Rx] Follow up Appointment(s)/Referral(s): Lora Cobb MD [Primary Care Provider] - 1-2 days Patient Instructions/Handouts: COPD (Chronic Obstructive Pulmonary Disease) (DC) Discharge Disposition: HOME SELF-CARE
== END 2021-03-31 15:25 | disposition home or self-care (01) | DRG 871 ==
LOC: EC 13:57 → 6NMEDSUR 16:04 → OBSVTOIN 03-26 10:50
PROVIDERS: ADMIT Internal Medicine; ATTEND Internal Medicine
DX: A41.9 Sepsis, unspecified organism (principal); J18.0 Bronchopneumonia, unspecified organism; E87.2 Acidosis; E87.1 Hypo-osmolality and hyponatremia; Z20.822 Contact with and (suspected) exposure to COVID-19; I25.10 Atherosclerotic heart disease of native coronary artery without angina pectoris; J43.9 Emphysema, unspecified; E78.5 Hyperlipidemia, unspecified; M19.90 Unspecified osteoarthritis, unspecified site; J20.9 Acute bronchitis, unspecified; E86.0 Dehydration; R09.02 Hypoxemia; G47.33 Obstructive sleep apnea (adult) (pediatric); I11.9 Hypertensive heart disease without heart failure; I25.2 Old myocardial infarction; Z79.02 Long term (current) use of antithrombotics/antiplatelets; Z79.82 Long term (current) use of aspirin; Z79.899 Other long term (current) drug therapy; Z87.891 Personal history of nicotine dependence; Z95.5 Presence of coronary angioplasty implant and graft; Z98.890 Other specified postprocedural states; Z80.1 Family history of malignant neoplasm of trachea, bronchus and lung; Z80.8 Family history of malignant neoplasm of other organs or systems; Z82.49 Family history of ischemic heart disease and other diseases of the circulatory system; Z83.3 Family history of diabetes mellitus; Z88.1 Allergy status to other antibiotic agents; Z96.653 Presence of artificial knee joint, bilateral
CPT/HCPCS: 36415; 36600; 71046; 80048; 80053; 80306; 82805; 83605; 84145; 85025; 86140; 87040; 87070; 87102; 87205; 87635; 93005; 94640; 94760; 96374; 99285

== ENCOUNTER 2021-07-26 09:15 | Emergency (ER) | payer MEDICARE, OTHER ==
[2021-07-26 09:22] VITALS: BP 119/82; PULSE 100; RESP 16; TEMP 98.3
[2021-07-26] MEDS ORDERED: LIDOCAINE 1% INJ 10MG/ML (5 ML VIAL-PF) SQ ONE (09:45)
--- NOTE | 2021-07-26 09:50 | ED ---
General Adult HPI - General Chief complaint: Wound/Laceration Stated complaint: knee injury Time Seen by Provider: 07/26/21 09:30 Source: patient, RN notes reviewed, old records reviewed Mode of arrival: ambulatory Limitations: no limitations - History of Present Illness Initial comments: This is a pleasant 60-year-old that presents with a laceration approximately 3cm to left knee from a metal wood splitter around 9:00 this morning. Bleeding is controlled, patient denies any other injury, denies any pain at this time. He has been able to ambulate states his tetanus shot is up-to-date. -: minutes(s) (30) Location: left, lower extremity (anterior knee) Severity scale (1-10): 0 Consistency: now resolved Associated Symptoms: denies other symptoms Treatments Prior to Arrival: none - Related Data Home Medications Medication Instructions Recorded Confirmed Metoprolol Succinate (ER) [Toprol 50 mg PO DAILY 10/30/20 03/25/21 XL] Montelukast [Singulair] 10 mg PO HS 11/23/20 03/25/21 Aspirin 81 mg PO DAILY 03/25/21 03/25/21 Atorvastatin Calcium [Lipitor] 80 mg PO HS 03/25/21 03/25/21 Isosorbide Mononitrate ER [Imdur] 60 mg PO DAILY 03/25/21 03/25/21 Previous Rx's Medication Instructions Recorded Clopidogrel [Plavix] 75 mg PO DAILY #30 tab 11/02/20 Nitroglycerin Sl Tabs [Nitrostat] 0.4 mg SL Q5M PRN #25 tab 11/30/20 Budesonide [Pulmicort] 1 mg INHALATION RT-BID ml 03/31/21 Cefdinir 300 mg PO Q12HR 7 Days #14 cap 03/31/21 Ipratropium-Albuterol Nebulize 3 ml INHALATION RT-Q4H PRN ml 03/31/21 [Duoneb 0.5 mg-3 mg/3 ml Soln] guaiFENesin [Mucinex] 600 mg PO Q12HR tablet 03/31/21 predniSONE 10 mg PO DIRECTED 12 Days #30 03/31/21 tab Cephalexin [Keflex] 500 mg PO Q6HR 2 Days #8 cap 07/26/21 Allergies Allergy/AdvReac Type Severity Reaction Status Date / Time levofloxacin [From Levaquin] AdvReac Nausea & Verified 07/26/21 09:19 Vomiting Review of Systems ROS Statement: Those systems with pertinent positive or pertinent negative responses have been documented in the HPI. ROS Other: All systems not noted in ROS Statement are negative. Past Medical History Past Medical History: Coronary Artery Disease (CAD), COPD, Hyperlipidemia, Hypertension, Myocardial Infarction ([place]) Additional Past Medical History / Comment(s): Pt states he has hx of 3 respiratory arrests and was vented, generalized arthritis, Last Myocardial Infarction Date:: History of Any Multi-Drug Resistant Organisms: None Reported Past Surgical History: Adenoidectomy, Heart Catheterization With Stent, Hernia Repair, Joint Replacement, Orthopedic Surgery, Tonsillectomy Additional Past Surgical History / Comment(s): R inguinal hernia repair, L rotator cuff repair, bialteral total knee arthroplasties, R shoulder spur removal, teeth extracted, colonoscopy-normal. third hernia repair, left side, stents x2 2020 ear Past Anesthesia/Blood Transfusion Reactions: No Reported Reaction Date of Last Stent Placement:: 2018 Past Psychological History: No Psychological Hx Reported Smoking Status: Former smoker Past Alcohol Use History: Occasional Past Drug Use History: Marijuana - Past Family History Father Family Medical History: Cancer Additional Family Medical History / Comment(s): Father of lung cancer at the age of 62. He was a smoker. Mother Family Medical History: Cancer, Diabetes Mellitus, Hypertension Additional Family Medical History / Comment(s): Mother at age 78 from brainstem cancer. Brother(s) Additional Family Medical History / Comment(s): Patient's 1 brother with history of AAA. Patient has 4 sisters and he does not know any of their medical history. Patient's 1 son and 1 daughter living. He had one daughter that at 7 weeks old from a congenital heart. General Exam Limitations: no limitations General appearance: alert, in no apparent distress Respiratory exam: Absent: respiratory distress, accessory muscle use Cardiovascular Exam: Present: regular rate GI/Abdominal exam: Present: soft. Absent: tenderness Extremities exam: Present: normal capillary refill Left Knee exam: Present: full ROM, tenderness, laceration (3cm anterior knee), full knee extension. Absent: effusion Lower Leg exam: Absent: tenderness, swelling Neurovascular tendon exam: Present: no vascular compromise. Absent: abnormal cap refill Neurological exam: Present: alert, oriented X3 Psychiatric exam: Present: normal affect, normal mood Skin exam: Present: warm, dry. Absent: cyanosis, diaphoretic Course Vital Signs 07/26/21 09:20 Temperature 98.3 F Pulse Rate 100 Respiratory 16 Rate Blood Pressure 119/82 O2 Sat by Pulse 96 Oximetry Procedures - Laceration Laceration #1 Consent Obtained: verbal consent Indication: laceration Site: lower extremity (knee) Description: linear Depth: simple, single layer Anesthetic Used: lidocaine 1% Anesthesia Technique: local infiltration Pre-repair: irrigated extensively Type of Sutures: nylon Size of Sutures: 4-0 Number of Sutures: 4 Technique: simple, interrupted Patient Tolerated Procedure: well, no complications Medical Decision Making - Medical Decision Making Wound was irrigated with normal saline and approximated with 4 sutures. Patient is able to ambulate with no difficulty. He'll be placed on prophylactic antibiotics. Return to the emergency room for any new or worsening symptoms or signs of infection including Fevers, redness or drainage. Patient is agreeable to this plan of care. Sutures to be removed in 7-10 days. Disposition Clinical Impression: Laceration Disposition: HOME SELF-CARE Condition: Good Instructions (If sedation given, give patient instructions): Acute Wound Care (ED) Additional Instructions: Return to the emergency room for any new or worsening symptoms or signs of infection including fevers, redness or drainage. Take antibiotics as prescribed for the next 2 days. Sutures to be removed in 7-10 days. Prescriptions: Cephalexin [Keflex] 500 mg PO Q6HR 2 Days #8 cap Is patient prescribed a controlled substance at d/c from ED?: No Referrals: Lora Cobb MD [Primary Care Provider] - 1-2 days Time of Disposition: 10:39
== END 2021-07-26 10:40 | disposition home or self-care (01) ==
LOC: EC 09:15
DX: S81.012A Laceration without foreign body, left knee, initial encounter (principal); I10 Essential (primary) hypertension; I25.2 Old myocardial infarction; J44.9 Chronic obstructive pulmonary disease, unspecified; Z88.1 Allergy status to other antibiotic agents; Z87.891 Personal history of nicotine dependence; W26.8XXA Contact with other sharp object(s), not elsewhere classified, initial encounter
CPT/HCPCS: 99283; 12001; J2001

== ENCOUNTER 2021-08-20 15:32 | Inpatient (IN) | payer MEDICARE, OTHER ==
[2021-08-20] MEDS ORDERED: SODIUM CHLORIDE 0.9% 500 ML 500 ML IV STA (16:09)
[2021-08-20] MEDS ORDERED: methylPREDNISolone SOD SUCCI 125 MG/2 ML VIAL IV STA (16:09)
[2021-08-20] MEDS ORDERED: IPRATROPIUM-ALBUTEROL 3 ML NEB INHALATION STA (16:09)
--- NOTE | 2021-08-20 16:18 | ED ---
General Adult HPI <Pablo Maya - Last Filed: 08/20/21 16:58> - General Source: patient, RN notes reviewed, old records reviewed Mode of arrival: ambulatory Limitations: no limitations - History of Present Illness -: days(s) (4) Location: chest Severity scale (1-10): 5 Quality: constant Consistency: constant Improves with: none Associated Symptoms: cough, fever/chills, shortness of breath Treatments Prior to Arrival: other (azithromycin, prednisone) <Amadeo Babb - Last Filed: 08/20/21 19:26> - General Chief complaint: Shortness of Breath Stated complaint: bronchitis, ELISEO Time Seen by Provider: 08/20/21 16:05 - History of Present Illness Initial comments: This is a well-appearing 60-year-old male, alert and oriented 4 presents with shortness of breath and cough since Wednesday. Patient states that he did see his primary care doctor who prescribed him prednisone and antibiotics. He has progressively been getting worse. Patient states that he has been around some people are sick one person diagnosed with strep throat. Patient denies any throat pain, no nausea vomiting or diarrhea. No abdominal pain. He does have a history of COPD, coronary artery disease. He does not use oxygen at home. He is a nonsmoker. (Amadeo Babb) - Related Data Home Medications Medication Instructions Recorded Confirmed Metoprolol Succinate (ER) [Toprol 50 mg PO DAILY 10/30/20 08/20/21 XL] Montelukast [Singulair] 10 mg PO HS 11/23/20 08/20/21 Aspirin 81 mg PO DAILY 03/25/21 08/20/21 Atorvastatin Calcium [Lipitor] 80 mg PO HS 03/25/21 08/20/21 Isosorbide Mononitrate ER [Imdur] 60 mg PO DAILY 03/25/21 08/20/21 Albuterol Nebulized [Ventolin 2.5 mg INHALATION RT-Q4H PRN 08/20/21 08/20/21 Nebulized] Albuterol Sulfate [Proair Hfa] 1 - 2 puff INHALATION RT-Q4H PRN 08/20/21 08/20/21 Azithromycin [Zithromax Z-pack (6 See Taper PO DIRECTED 08/20/21 08/20/21 tabs)] Hydrochlorothiazide 12.5 mg PO DAILY 08/20/21 08/20/21 [hydroCHLOROthiazide] Previous Rx's Medication Instructions Recorded Clopidogrel [Plavix] 75 mg PO DAILY #30 tab 11/02/20 Nitroglycerin Sl Tabs [Nitrostat] 0.4 mg SL Q5M PRN #25 tab 11/30/20 Budesonide [Pulmicort] 1 mg INHALATION RT-BID ml 03/31/21 Ipratropium-Albuterol Nebulize 3 ml INHALATION RT-Q4H PRN ml 03/31/21 [Duoneb 0.5 mg-3 mg/3 ml Soln] predniSONE 50 mg PO DAILY #5 tab 08/17/21 Allergies Allergy/AdvReac Type Severity Reaction Status Date / Time levofloxacin [From Levaquin] AdvReac Nausea & Verified 08/20/21 18:43 Vomiting Review of Systems ROS Other: All systems not noted in ROS Statement are negative. <Pablo Maya - Last Filed: 08/20/21 16:58> ROS Other: All systems not noted in ROS Statement are negative. <Amadeo Babb - Last Filed: 08/20/21 19:26> ROS Statement: Those systems with pertinent positive or pertinent negative responses have been documented in the HPI. Past Medical History Past Medical History: Coronary Artery Disease (CAD), COPD, Hyperlipidemia, Hypertension, Myocardial Infarction ([place]) Additional Past Medical History / Comment(s): Pt states he has hx of 3 re spiratory arrests and was vented, generalized arthritis, Last Myocardial Infarction Date:: History of Any Multi-Drug Resistant Organisms: None Reported Past Surgical History: Adenoidectomy, Heart Catheterization With Stent, Hernia Repair, Joint Replacement, Orthopedic Surgery, Tonsillectomy Additional Past Surgical History / Comment(s): R inguinal hernia repair, L rotator cuff repair, bialteral total knee arthroplasties, R shoulder spur removal, teeth extracted, colonoscopy-normal. third hernia repair, left side, stents x2 2020 ear Past Anesthesia/Blood Transfusion Reactions: No Reported Reaction Date of Last Stent Placement:: 2018 Past Psychological History: No Psychological Hx Reported Smoking Status: Former smoker Past Alcohol Use History: Occasional Past Drug Use History: Marijuana - Past Family History Father Family Medical History: Cancer Additional Family Medical History / Comment(s): Father of lung cancer at the age of 62. He was a smoker. Mother Family Medical History: Cancer, Diabetes Mellitus, Hypertension Additional Family Medical History / Comment(s): Mother at age 78 from brainstem cancer. Brother(s) Additional Family Medical History / Comment(s): Patient's 1 brother with history of AAA. Patient has 4 sisters and he does not know any of their medical history. Patient's 1 son and 1 daughter living. He had one daughter that at 7 weeks old from a congenital heart. <Amadeo Babb - Last Filed: 08/20/21 19:26> General Exam Limitations: no limitations General appearance: alert, in distress Head exam: Present: atraumatic ENT exam: Present: normal exam, normal oropharynx, mucous membranes moist Neck exam: Absent: tenderness, meningismus Respiratory exam: Present: respiratory distress, wheezes, accessory muscle use, decreased breath sounds. Absent: rales, rhonchi, stridor, chest wall tenderness Expanded Location: Decreased Breath Sounds: Right, Left, Upper, Lower Cardiovascular Exam: Present: regular rate GI/Abdominal exam: Present: soft, distended. Absent: tenderness, guarding, rebound, rigid Extremities exam: Present: normal capillary refill. Absent: pedal edema Back exam: Present: normal inspection. Absent: tenderness, CVA tenderness (R), CVA tenderness (L), rash noted Neurological exam: Present: alert, oriented X3 Psychiatric exam: Present: normal affect, normal mood Skin exam: Present: warm, dry, normal color. Absent: rash, cyanosis, diaphoretic, pallor <Amadeo Babb - Last Filed: 08/20/21 19:26> Course <Pablo Maya - Last Filed: 08/20/21 16:58> - Reevaluation(s) Time: 16:20 Time: 18:14 <Amadeo Babb - Last Filed: 08/20/21 19:26> Vital Signs 08/20/21 08/20/21 08/20/21 15:47 16:28 16:39 Temperature 98.2 F Pulse Rate 91 77 73 Respiratory 32 H Rate Blood Pressure 121/60 O2 Sat by Pulse 97 Oximetry 08/20/21 08/20/21 08/20/21 17:15 18:23 18:35 Temperature Pulse Rate 78 82 86 Respiratory 28 H Rate Blood Pressure 130/81 O2 Sat by Pulse 98 Oximetry 08/20/21 18:41 Temperature Pulse Rate 97 Respiratory 22 Rate Blood Pressure 146/85 O2 Sat by Pulse 94 L Oximetry - Reevaluation(s) Reevaluation #1: 08/20/21 16:20 Patient is dyspneic with oxygen sat 92% on 4 L, tachypnea rate 32. Considering BiPAP, Dr. Maya at bedside. (Amadeo Babb) Reevaluation #2: 08/20/21 16:43 I did evaluate the patient the request of the provider. The patient presented with complaints of shortness of breath for 3 days he states it's his COPD he states it happens several times a year at least. He complains shortness of breath cough no overt phlegm production no overt fevers or chills but does have occasional sweats. No chest pain reported. Is no medications or not helping. He does present with shortness of breath he has markedly diminished breath sounds is somewhat diaphoretic. This. He 30. Pulse oximetry however is 97% patient is able to converse we does demonstrate some exertional dyspnea. Initial plan at this time is for DuoNeb treatment and IV steroids IV magnesium with close observation. At this time the patient has not seen require BiPAP. (Pablo Maya) 08/20/21 18:14 Patient states that he is feeling a little bit better but continues to be short of breath with persistent cough. Lung sounds remain diminished bilaterally. Patient will be given another albuterol treatment. (Amadeo Babb) Reevaluation #3: 08/20/21 16:58 Reevaluation patient status post initial treatment he states he is feeling better than he had earlier he is able to converse without becoming short of breath. Pulse oximetry is adequate. Respiratory rate has improved. (Pablo Maya) EKG Findings - EKG Results: EKG: sinus rhythm (Ventricular rate 71, MI interval 0.160, QRS 0.81, QTC 0.404) <Amadeo Babb - Last Filed: 08/20/21 19:26> Medical Decision Making - Lab Data Result diagrams: 08/20/21 16:22 <Pablo Maya - Last Filed: 08/20/21 16:58> - Lab Data Result diagrams: 08/20/21 16:22 08/20/21 18:45 <Amadeo Babb - Last Filed: 08/20/21 19:26> - Medical Decision Making Chest x-ray shows no infiltrate. Slight leukocytosis likely from prednisone. D-dimer is negative. Patient is influenza A+. He was given multiple breathing treatments, magnesium and Solu-Medrol while in the emergency room. Patient remains dyspneic with a persistent cough He will be admitted to the hospital for influenza A and COPD exacerbation. Case discussed with Dr. Maya Patient was started on Tamiflu per Dr. Frazier (Amadeo Babb) - Lab Data Lab Results 08/20/21 08/20/21 08/20/21 Range/Units 16:22 16:22 16:22 WBC 11.5 H (3.8-10.6) k/uL RBC 4.99 (4.30-5.90) m/uL Hgb 14.2 (13.0-17.5) gm/dL Hct 43.8 (39.0-53.0) % MCV 87.9 (80.0-100.0) fL MCH 28.4 (25.0-35.0) pg MCHC 32.3 (31.0-37.0) g/dL RDW 12.5 (11.5-15.5) % Plt Count 300 (150-450) k/uL MPV 8.1 Neutrophils % 87 % Lymphocytes % 8 % Monocytes % 4 % Eosinophils % 1 % Basophils % 0 % Neutrophils # 10.0 H (1.3-7.7) k/uL Lymphocytes # 0.9 L (1.0-4.8) k/uL Monocytes # 0.4 (0-1.0) k/uL Eosinophils # 0.1 (0-0.7) k/uL Basophils # 0.0 (0-0.2) k/uL PT 9.6 (9.0-12.0) sec INR 0.9 (<1.2) APTT 18.8 L (22.0-30.0) sec D-Dimer 0.22 (<0.60) mg/L FEU VBG pH (7.31-7.41) VBG pCO2 (37-51) mmHg VBG HCO3 (24-28) mmol/L Sodium (137-145) mmol/L Potassium (3.5-5.1) mmol/L Chloride (98-107) mmol/L Carbon Dioxide (22-30) mmol/L Anion Gap mmol/L BUN (9-20) mg/dL Creatinine (0.66-1.25) mg/dL Est GFR (CKD-EPI)AfAm (>60 ml/min/1.73 sqM) Est GFR (CKD-EPI)NonAf (>60 ml/min/1.73 sqM) Glucose (74-99) mg/dL Plasma Lactic Acid Rito 1.6 (0.7-2.0) mmol/L Calcium (8.4-10.2) mg/dL Magnesium (1.6-2.3) mg/dL Total Bilirubin (0.2-1.3) mg/dL AST (17-59) U/L ALT (4-49) U/L Alkaline Phosphatase (38-126) U/L Troponin I (0.000-0.034) ng/mL Total Protein (6.3-8.2) g/dL Albumin (3.5-5.0) g/dL Coronavirus (PCR) (Not Detectd) Influenza Type A RNA (Not Detectd) Influenza Type B (PCR) (Not Detectd) 08/20/21 08/20/21 08/20/21 Range/Units 16:22 17:08 17:08 WBC (3.8-10.6) k/uL RBC (4.30-5.90) m/uL Hgb (13.0-17.5) gm/dL Hct (39.0-53.0) % MCV (80.0-100.0) fL MCH (25.0-35.0) pg MCHC (31.0-37.0) g/dL RDW (11.5-15.5) % Plt Count (150-450) k/uL MPV Neutrophils % % Lymphocytes % % Monocytes % % Eosinophils % % Basophils % % Neutrophils # (1.3-7.7) k/uL Lymphocytes # (1.0-4.8) k/uL Monocytes # (0-1.0) k/uL Eosinophils # (0-0.7) k/uL Basophils # (0-0.2) k/uL PT (9.0-12.0) sec INR (<1.2) APTT (22.0-30.0) sec D-Dimer (<0.60) mg/L FEU VBG pH 7.49 H (7.31-7.41) VBG pCO2 33 L (37-51) mmHg VBG HCO3 25 (24-28) mmol/L Sodium (137-145) mmol/L Potassium (3.5-5.1) mmol/L Chloride (98-107) mmol/L Carbon Dioxide (22-30) mmol/L Anion Gap mmol/L BUN (9-20) mg/dL Creatinine (0.66-1.25) mg/dL Est GFR (CKD-EPI)AfAm (>60 ml/min/1.73 sqM) Est GFR (CKD-EPI)NonAf (>60 ml/min/1.73 sqM) Glucose (74-99) mg/dL Plasma Lactic Acid Rito (0.7-2.0) mmol/L Calcium (8.4-10.2) mg/dL Magnesium (1.6-2.3) mg/dL Total Bilirubin (0.2-1.3) mg/dL AST (17-59) U/L ALT (4-49) U/L Alkaline Phosphatase (38-126) U/L Troponin I (0.000-0.034) ng/mL Total Protein (6.3-8.2) g/dL Albumin (3.5-5.0) g/dL Coronavirus (PCR) Not Detected (Not Detectd) Influenza Type A RNA Detected H (Not Detectd) Influenza Type B (PCR) Not Detected (Not Detectd) 08/20/21 08/20/21 Range/Units 18:45 18:45 WBC (3.8-10.6) k/uL RBC (4.30-5.90) m/uL Hgb (13.0-17.5) gm/dL Hct (39.0-53.0) % MCV (80.0-100.0) fL MCH (25.0-35.0) pg MCHC (31.0-37.0) g/dL RDW (11.5-15.5) % Plt Count (150-450) k/uL MPV Neutrophils % % Lymphocytes % % Monocytes % % Eosinophils % % Basophils % % Neutrophils # (1.3-7.7) k/uL Lymphocytes # (1.0-4.8) k/uL Monocytes # (0-1.0) k/uL Eosinophils # (0-0.7) k/uL Basophils # (0-0.2) k/uL PT (9.0-12.0) sec INR (<1.2) APTT (22.0-30.0) sec D-Dimer (<0.60) mg/L FEU VBG pH (7.31-7.41) VBG pCO2 (37-51) mmHg VBG HCO3 (24-28) mmol/L Sodium 136 L (137-145) mmol/L Potassium 4.1 (3.5-5.1) mmol/L Chloride 103 (98-107) mmol/L Carbon Dioxide 23 (22-30) mmol/L Anion Gap 10 mmol/L BUN 18 (9-20) mg/dL Creatinine 0.85 (0.66-1.25) mg/dL Est GFR (CKD-EPI)AfAm >90 (>60 ml/min/1.73 sqM) Est GFR (CKD-EPI)NonAf >90 (>60 ml/min/1.73 sqM) Glucose 121 H (74-99) mg/dL Plasma Lactic Acid Rito (0.7-2.0) mmol/L Calcium 8.9 (8.4-10.2) mg/dL Magnesium 2.4 H (1.6-2.3) mg/dL Total Bilirubin 0.3 (0.2-1.3) mg/dL AST 28 (17-59) U/L ALT 20 (4-49) U/L Alkaline Phosphatase 123 (38-126) U/L Troponin I <0.012 (0.000-0.034) ng/mL Total Protein 6.8 (6.3-8.2) g/dL Albumin 4.2 (3.5-5.0) g/dL Coronavirus (PCR) (Not Detectd) Influenza Type A RNA (Not Detectd) Influenza Type B (PCR) (Not Detectd) Disposition <Pablo Maya - Last Filed: 08/20/21 16:58> Decision Date: 08/20/21 Decision Time: 18:33 <Amadeo Babb - Last Filed: 08/20/21 19:26> Clinical Impression: Influenza A, COPD exacerbation Disposition: ADMITTED IP TO THIS HOSP Referrals: Lora Cobb MD [Primary Care Provider] - 1-2 days
[2021-08-20 16:55] LABS: Basophils % (A) 0 %; Eosinophils # (A) 0.1 k/uL (0-0.7); Eosinophils % (A) 1 %; HCT 43.8 % (39.0-53.0); HGB 14.2 gm/dL (13.0-17.5); Lymphocytes # (A) 0.9 k/uL (1.0-4.8); Lymphocytes % (A) 8 %; MCH 28.4 pg (25.0-35.0); MCHC 32.3 g/dL (31.0-37.0); MCV 87.9 fL (80.0-100.0); Mean Platelet Volume 8.1; Monocytes # (A) 0.4 k/uL (0-1.0); Monocytes % (A) 4 %; Neutrophils % (A) 87 %; Platelet Count 300 k/uL (150-450); RBC 4.99 m/uL (4.30-5.90); RDW 12.5 % (11.5-15.5); WBC 11.5 k/uL (3.8-10.6)
--- NOTE | 2021-08-20 16:58 | XR ---
EXAMINATION TYPE: XR chest 2V DATE OF EXAM: 08/20/2021 COMPARISON: 08/17/2021 HISTORY: Short of breath TECHNIQUE: FINDINGS: Heart is normal. Lungs are clear of infiltrate. No heart failure. Costophrenic angles are c lear. Bony thorax appears intact. There is left shoulder surgery. IMPRESSION: Normal chest. No change.
[2021-08-20 17:03] LABS: VBG PH 7.49 (7.31-7.41)
[2021-08-20] MEDS: MAGNESIUM SULFATE-D5W PMX 1 GM in DEXTROSE/WATER 1 100ML.BAG IVPB SCH ×2 (17:05→22:20)
[2021-08-20 17:14] LABS: INR 0.9 (<1.2)
[2021-08-20 17:15] LABS: Prothrombin Time 9.6 sec (9.0-12.0)
[2021-08-20 17:19] LABS: Partial Thromboplastin Time 18.8 sec (22.0-30.0)
[2021-08-20] MEDS ORDERED: ALBUTEROL NEBULIZED 2.5 MG/3 ML INHALATION STA (18:13)
[2021-08-20] MEDS ORDERED: IBUPROFEN 400 MG TAB PO PRN (18:59)
[2021-08-20] MEDS ORDERED: NALOXONE 0.4 MG/ML 1 ML VIAL IV PRN (18:59)
[2021-08-20 19:04] LABS: ALT 20 U/L (4-49); AST 28 U/L (17-59); African American GFR (CKD) >90 (>60 ml/min/1.73 sqM); Albumin 4.2 g/dL (3.5-5.0); Alkaline Phosphatase 123 U/L (38-126); Anion Gap 10 mmol/L; Blood Urea Nitrogen 18 mg/dL (9-20); Calcium 8.9 mg/dL (8.4-10.2); Carbon Dioxide 23 mmol/L (22-30); Chloride 103 mmol/L (98-107); Glucose 121 mg/dL (74-99); Magnesium 2.4 mg/dL (1.6-2.3); Non-African American GFR(CKD) >90 (>60 ml/min/1.73 sqM); Potassium 4.1 mmol/L (3.5-5.1); Sodium 136 mmol/L (137-145); Total Bilirubin 0.3 mg/dL (0.2-1.3); Total Protein 6.8 g/dL (6.3-8.2)
[2021-08-20] MEDS ORDERED: AZITHROMYCIN 250 MG TAB PO SCH (19:15)
[2021-08-20] MEDS: BUDESONIDE 1 MG/2 ML NEBU INHALATION SCH (21:02)
[2021-08-20] MEDS: ALBUTEROL NEBULIZED 2.5 MG/3 ML INHALATION PRN (21:02)
[2021-08-20] MEDS: ATORVASTATIN 80 MG TAB PO SCH (22:20)
[2021-08-20] MEDS: MONTELUKAST 10 MG TAB PO SCH (22:20)
[2021-08-20] MEDS: OSELTAMIVIR 75 MG CAP PO SCH (22:55)
[2021-08-21] MEDS: ALBUTEROL NEBULIZED 2.5 MG/3 ML INHALATION PRN ×5 (00:31→16:24)
[2021-08-21] MEDS: SODIUM CHLORIDE 0.9% 1,000 ML IV SCH ×2 (04:25→15:09)
[2021-08-21] MEDS ORDERED: CALCIUM CARBONATE 500 MG CHEWABLE PO PRN (05:05)
[2021-08-21] MEDS ORDERED: guaiFENesin-Coden 100-10MG/5ML 10 ML CUP PO PRN (05:08)
[2021-08-21] MEDS: guaiFENesin-Coden 100-10MG/5ML 10 ML CUP PO PRN (06:23)
[2021-08-21] MEDS: BUDESONIDE 1 MG/2 ML NEBU INHALATION SCH ×2 (08:56→20:06)
[2021-08-21] MEDS ORDERED: AZITHROMYCIN 250 MG TAB ONE (09:00)
[2021-08-21] MEDS ORDERED: predniSONE 50 MG TAB ONE (09:00)
[2021-08-21] MEDS ORDERED: CALCIUM CARBONATE 500 MG CHEWABLE PO ONE (09:00)
[2021-08-21] MEDS ORDERED: ACETAMINOPHEN TAB 325 MG TAB ONE (09:00)
[2021-08-21] MEDS ORDERED: ALBUTEROL NEBULIZED 2.5 MG/3 ML INHALATION ONE (09:00)
[2021-08-21] MEDS: OSELTAMIVIR 75 MG CAP PO SCH ×2 (10:05→21:24)
[2021-08-21] MEDS: ISOSORBIDE MONONITRATE ER 60 MG TAB.ER.24H PO SCH (10:06)
[2021-08-21] MEDS: METOPROLOL SUCCINATE (ER) 50 MG TAB.ER.24H PO SCH (10:06)
[2021-08-21] MEDS: hydroCHLOROthiazide 12.5 MG CAP PO SCH (10:07)
[2021-08-21] MEDS: predniSONE 50 MG TAB PO SCH (15:09)
[2021-08-21] MEDS: AZITHROMYCIN 250 MG TAB PO SCH (15:09)
--- NOTE | 2021-08-21 19:46 | P.HPIM ---
History of Present Illness H&P Date: 08/21/21 Marcel Jo, is a 60-year-old male who presented to [facility] emergency room with a chief complaint of cough and shortness of breath. He was evaluated in the emergency room vital examination on presentation revealed a temperature of 97.9 pulse 99 respiration 32 blood pressure 114/81 pulse ox 97% on 3 L nasal cannula Laboratory data revealed a white blood count of 11.5 hemoglobin 14.2 platelet count 300 sodium 136 potassium 4.1 chloride 103 CO2 23 BUN 18 creatinine 0.85 influenza A titers were positive Testing in the emergency room revealed chest x-ray done in the emergency room revealed normal chest no change from before, EKG done in the emergency room revealed sinus rhythm with borderline left axis deviation Patient was admitted to medical floor for further evaluation and treatment, he was started on Tamiflu and steroids, pulmonary consultation was requested Past medical history is significant for history of COPD, history of coronary artery disease with previous history of myocardial infarction and angioplasty and stent placement in the past, history of hypertension, history of hyperlipidemia, previous history of respiratory arrest requiring mechanical ventilation On review of systems patient was seen and examined on the medical floor he is alert and oriented 3 in no apparent distress there is no fever or chills no headache or dizziness he has occasional cough with minimal sputum production he has shortness of breath with any activity no chest pain no nausea or vomiting no abdominal pain no diarrhea and no urinary symptoms Past Medical History Past Medical History: Coronary Artery Disease (CAD), COPD, Hyperlipidemia, Hypertension, Myocardial Infarction (MS) Additional Past Medical History / Comment(s): Pt states he has hx of 3 respiratory arrests and was vented, generalized arthritis, Last Myocardial Infarction Date:: History of Any Multi-Drug Resistant Organisms: None Reported Past Surgical History: Adenoidectomy, Heart Catheterization With Stent, Hernia Repair, Joint Replacement, Orthopedic Surgery, Tonsillectomy Additional Past Surgical History / Comment(s): R inguinal hernia repair, L rotator cuff repair, bialteral total knee arthroplasties, R shoulder spur rem oval, teeth extracted, colonoscopy-normal. third hernia repair, left side, stents x2 2020 ear Past Anesthesia/Blood Transfusion Reactions: No Reported Reaction Date of Last Stent Placement:: 2018 Past Psychological History: No Psychological Hx Reported Additional Psychological History / Comment(s): He uses no assistive devices. Smoking Status: Former smoker Past Alcohol Use History: Occasional Additional Past Alcohol Use History / Comment(s): patient quit smoking in 12/2018, but has restarted. He uses marijuana (edilbel) daily for pain. He is recovering alcoholic and he drinks alcohol rarely at this point. He has history of illicit drug use including Phen-Fen a means, LSD, cocaine, heroin and quit all of this 10 years ago. 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 Past Drug Use History: Marijuana Additional Drug Use History / Comment(s): He states in the past he has used marijuana, heroin, crystal meth, cocaine and crack but none of those drugs for about 9 yrs. - Past Family History Father Family Medical History: Cancer Additional Family Medical History / Comment(s): Father of lung cancer at the age of 62. He was a smoker. Mother Family Medical History: Cancer, Diabetes Mellitus, Hypertension Additional Family Medical History / Comment(s): Mother at age 78 from brainstem cancer. Brother(s) Additional Family Medical History / Comment(s): Patient's 1 brother with history of AAA. Patient has 4 sisters and he does not know any of their medical history. Patient's 1 son and 1 daughter living. He had one daughter that at 7 weeks old from a congenital heart. Medications and Allergies Home Medications Medication Instructions Recorded Confirmed Type Metoprolol Succinate (ER) [Toprol 50 mg PO DAILY 10/30/20 08/20/21 History XL] Clopidogrel [Plavix] 75 mg PO DAILY #30 tab 11/02/20 08/20/21 Rx Montelukast [Singulair] 10 mg PO HS 11/23/20 08/20/21 History Nitroglycerin Sl Tabs [Nitrostat] 0.4 mg SL Q5M PRN #25 tab 11/30/20 08/20/21 Rx Aspirin 81 mg PO DAILY 03/25/21 08/20/21 History Atorvastatin Calcium [Lipitor] 80 mg PO HS 03/25/21 08/20/21 History Isosorbide Mononitrate ER [Imdur] 60 mg PO DAILY 03/25/21 08/20/21 History Budesonide [Pulmicort] 1 mg INHALATION RT-BID ml 03/31/21 08/20/21 Rx Ipratropium-Albuterol Nebulize 3 ml INHALATION RT-Q4H PRN ml 03/31/21 08/20/21 Rx [Duoneb 0.5 mg-3 mg/3 ml Soln] predniSONE 50 mg PO DAILY #5 tab 08/17/21 08/20/21 Rx Albuterol Nebulized [Ventolin 2.5 mg INHALATION RT-Q4H PRN 08/20/21 08/20/21 History Nebulized] Albuterol Sulfate [Proair Hfa] 1 - 2 puff INHALATION RT-Q4H PRN 08/20/21 08/20/21 History Azithromycin [Zithromax Z-pack (6 See Taper PO DIRECTED 08/20/21 08/20/21 History tabs)] Hydrochlorothiazide 12.5 mg PO DAILY 08/20/21 08/20/21 History [hydroCHLOROthiazide] Allergies Allergy/AdvReac Type Severity Reaction Status Date / Time levofloxacin [From Levaquin] AdvReac Nausea & Verified 08/20/21 18:43 Vomiting Physical Exam Vitals: Vital Signs Temp Pulse Pulse Resp BP BP Pulse Ox 08/21/21 12:52 91 08/21/21 12:40 89 08/21/21 09:09 94 08/21/21 08:56 98 98 08/21/21 07:41 97.9 F 99 22 114/81 98 08/21/21 05:43 101 H 08/21/21 05:32 100 08/21/21 01:52 97.7 F 100 19 111/70 99 08/21/21 00:44 94 08/21/21 00:32 92 08/20/21 22:22 18 95 08/20/21 21:16 100 08/20/21 21:04 97 08/20/21 21:00 17 08/20/21 20:50 98.4 F 38 H 137/90 98 08/20/21 19:42 97 22 96 08/20/21 18:41 97 22 146/85 94 L 08/20/21 18:35 86 08/20/21 18:23 82 08/20/21 17:15 78 28 H 130/81 98 08/20/21 16:39 73 08/20/21 16:28 77 Intake and Output 08/21/21 08/21/21 08/21/21 06:59 14:59 22:59 Other: # Voids 7 In general patient is alert and oriented x 3 in no distress HEENT head normocephalic and atraumatic Neck is supple no JVD no goiter no lymphadenopathy no carotid bruit Chest examination reveals a scattered crackles bilaterally with mild wheezing Cardiac exam reveals regular heart sounds S1 and S2 no gallops no murmurs Abdomen is soft nontender no organomegaly with normal bowel sounds Extremity exam reveals no edema no cyanosis or clubbing Neurological examination reveals no gross focal deficits Results CBC & Chem 7: 08/20/21 16:22 08/20/21 18:45 Labs: Abnormal Lab Results - Last 24 Hours (Table) 08/20/21 08/20/21 08/20/21 Range/Units 16:22 16:22 16:22 WBC 11.5 H (3.8-10.6) k/uL Neutrophils # 10.0 H (1.3-7.7) k/uL Lymphocytes # 0.9 L (1.0-4.8) k/uL APTT 18.8 L (22.0-30.0) sec VBG pH 7.49 H (7.31-7.41) VBG pCO2 33 L (37-51) mmHg Sodium (137-145) mmol/L Glucose (74-99) mg/dL Magnesium (1.6-2.3) mg/dL Influenza Type A RNA (Not Detectd) 08/20/21 08/20/21 Range/Units 17:08 18:45 WBC (3.8-10.6) k/uL Neutrophils # (1.3-7.7) k/uL Lymphocytes # (1.0-4.8) k/uL APTT (22.0-30.0) sec VBG pH (7.31-7.41) VBG pCO2 (37-51) mmHg Sodium 136 L (137-145) mmol/L Glucose 121 H (74-99) mg/dL Magnesium 2.4 H (1.6-2.3) mg/dL Influenza Type A RNA Detected H (Not Detectd) Thrombosis Risk Factor Assmnt - Choose All That Apply Any of the Below Risk Factors Present?: Yes Each Factor Represents 1 point: Abnormal pulmonary function (COPD), Age 41-60 years Each Risk Factor Represents 3 Points: History of DVT/PE Thrombosis Risk Factor Assessment Total Risk Factor Score: 5 Thrombosis Risk Factor Assessment Level: High Risk Assessment and Plan Plan: Acute purulent bronchitis Acute exacerbation of chronic obstructive pulmonary disease Positive for influenza A Underlying history of coronary artery disease Underlying history of hypertension Underlying history of hyperlipidemia Underlying history of osteoarthritis with multiple orthopedic surgeries At this time patient is admitted to medical floor he was started on Tamiflu and prednisone He was also started on inhaled bronchodilators Home medications reviewed and reordered Pulmonary consultation requested Will follow closely
[2021-08-21] MEDS: IPRATROPIUM-ALBUTEROL 3 ML NEB INHALATION PRN ×2 (20:06→23:45)
[2021-08-21] MEDS: MONTELUKAST 10 MG TAB PO SCH (20:26)
[2021-08-21] MEDS: ACETAMINOPHEN TAB 325 MG TAB PO PRN (20:27)
[2021-08-21] MEDS: ATORVASTATIN 80 MG TAB PO SCH (20:27)
[2021-08-22] MEDS: ISOSORBIDE MONONITRATE ER 60 MG TAB.ER.24H PO SCH (07:54)
[2021-08-22] MEDS: METOPROLOL SUCCINATE (ER) 50 MG TAB.ER.24H PO SCH (07:54)
[2021-08-22] MEDS: OSELTAMIVIR 75 MG CAP PO SCH ×2 (07:55→21:13)
[2021-08-22] MEDS: hydroCHLOROthiazide 12.5 MG CAP PO SCH (07:55)
[2021-08-22] MEDS: ENOXAPARIN 40 MG/0.4 ML SYRINGE SQ SCH ×2 (07:55→07:56)
[2021-08-22] MEDS: predniSONE 50 MG TAB PO SCH (07:55)
[2021-08-22] MEDS: AZITHROMYCIN 250 MG TAB PO SCH (07:55)
[2021-08-22] MEDS: IPRATROPIUM-ALBUTEROL 3 ML NEB INHALATION PRN ×4 (08:20→20:48)
[2021-08-22] MEDS: BUDESONIDE 1 MG/2 ML NEBU INHALATION SCH ×2 (08:20→20:48)
[2021-08-22 08:54] LABS: ALT 18 U/L (4-49); AST 25 U/L (17-59); African American GFR (CKD) >90 (>60 ml/min/1.73 sqM); Albumin 3.6 g/dL (3.5-5.0); Albumin/Globulin Ratio 1.4; Alkaline Phosphatase 88 U/L (38-126); Anion Gap 9 mmol/L; Basophils # (A) 0.1 k/uL (0-0.2); Basophils % (A) 1 %; Blood Urea Nitrogen 14 mg/dL (9-20); Calcium 8.2 mg/dL (8.4-10.2); Carbon Dioxide 24 mmol/L (22-30); Chloride 105 mmol/L (98-107); Eosinophils % (A) 0 %; Globulin 2.6 g/dL; Glucose 91 mg/dL (74-99); HCT 42.8 % (39.0-53.0); HGB 13.6 gm/dL (13.0-17.5); Lymphocytes # (A) 1.5 k/uL (1.0-4.8); Lymphocytes % (A) 21 %; MCH 28.7 pg (25.0-35.0); MCHC 31.9 g/dL (31.0-37.0); Monocytes # (A) 0.6 k/uL (0-1.0); Monocytes % (A) 8 %; Neutrophils # (A) 4.9 k/uL (1.3-7.7); Neutrophils % (A) 68 %; Non-African American GFR(CKD) >90 (>60 ml/min/1.73 sqM); Platelet Count 255 k/uL (150-450); Potassium 4.1 mmol/L (3.5-5.1); RBC 4.75 m/uL (4.30-5.90); RDW 12.7 % (11.5-15.5); Sodium 138 mmol/L (137-145); Total Bilirubin 0.3 mg/dL (0.2-1.3); Total Protein 6.2 g/dL (6.3-8.2); WBC 7.2 k/uL (3.8-10.6)
--- NOTE | 2021-08-22 09:18 | P.PN ---
Subjective Progress Note Date: 08/22/21 Principal diagnosis: Influenza A tracheobronchitis Acute COPD exacerbation Hypertension hypertensive cardiovascular disease Coronary artery disease status post stent placement Dyslipidemia History of prior [place] History of respiratory failure and ventilator support 08/22/2021, patient seen eval examined during the rounds labs reviewed medications reviewed respiratory status is slowly getting better still have mucoid phlegm, labs from today reviewed white cell count down to 7200 from 11,500 rest of the CBC within normal limit, chemistry also within normal limits Patient is a 60-year-old male well-known to me from a history of coronary artery disease as well as severe COPD, patient has been doing well until about 4 days ago started having cough shortness of breath and not feeling well symptoms of progressive he has been in contact with people who have upper respiratory infection. On arrival his chest x-ray was negative for any active process, and labs are significant for white cell count 11,000 hemoglobin and hematocrit 14 and 43, d-dimer is 0.2 to within normal limit covert was negative however influenza A came back positive, she was negative, patient has been continued on bronchodilators along with Zithromax oral along with continuation of his home medicines, patient has been placed on the oral prednisone 50 mg daily along with normal saline and Tamiflu. Today on examination is afebrile, hemodynamically stable with saturation 98% oxygen nasal cannula Objective - Vital Signs Vital signs: Vital Signs Temp 97.8 F 08/22/21 01:26 Pulse 64 08/22/21 08:36 Resp 18 08/22/21 01:26 BP 110/65 08/22/21 01:26 Pulse Ox 97 08/22/21 08:21 FiO2 Intake & Output 08/21/21 08/22/21 08/22/21 18:59 06:59 18:59 Intake Total 1200 Balance 1200 Intake: Intake, IV Titration 900 Amount Sodium Chloride 0.9% 1, 900 000 ml @ 75 mls/hr IV . [id number] [facility] Rx#:[id number] Oral 300 Other: # Voids 2 - Exam - Constitutional General appearance: average body habitus, disheveled, mild distress - EENT Eyes: EOMI, PERRLA ENT: normal oropharynx Ears: bilateral: normal - Neck Neck: normal ROM Carotids: bilateral: upstroke normal Thyroid: negative: normal size - Respiratory Respiratory: bilateral: wheezing (Very fine on forced expiration) - Cardiovascular Rhythm: regular Heart sounds: normal: S1, S2 - Gastrointestinal General gastrointestinal: decreased bowel sounds, soft - Integumentary Integumentary: normal turgor - Neurologic Neurologic: CNII-XII intact - Musculoskeletal Musculoskeletal: gait normal, generalized weakness, strength equal bilaterally - Psychiatric Psychiatric: A&O x's 3, appropriate affect, intact judgment & insight - Labs CBC & Chem 7: 08/22/21 08:08 08/22/21 08:08 Labs: Abnormal Lab Results - Last 24 Hours (Table) 08/22/21 Range/Units 08:08 Calcium 8.2 L (8.4-10.2) mg/dL Total Protein 6.2 L (6.3-8.2) g/dL Assessment and Plan Assessment: Influenza A tracheobronchitis Acute COPD exacerbation Hypertension hypertensive cardiovascular disease Coronary artery disease status post stent placement Dyslipidemia History of prior [place] History of respiratory failure and ventilator support Plan: Continue bronchodilators Supplemental oxygen Respiratory isolation Deep breathing exercises incentive spirometry Continue Tamiflu Oral prednisone Oral broad-spectrum antibiotics Continue home medications Further plan of care as per clinical response of the patient Agree with discharge planning from pulmonary standpoint with follow-up in office in 1-2 weeks Time with Patient: Greater than 30
--- NOTE | 2021-08-22 14:39 | P.PN ---
Subjective Progress Note Date: 08/22/21 Marcel Jo, is a 60-year-old male who presented to [facility] emergency room with a chief complaint of cough and shortness of breath. He was evaluated in the emergency room vital examination on presentation revealed a temperature of 97.9 pulse 99 respiration 32 blood pressure 114/81 pulse ox 97% on 3 L nasal cannula Laboratory data revealed a white blood count of 11.5 hemoglobin 14.2 platelet count 300 sodium 136 potassium 4.1 chloride 103 CO2 23 BUN 18 creatinine 0.85 influenza A titers were positive Testing in the emergency room revealed chest x-ray done in the emergency room revealed normal chest no change from before, EKG done in the emergency room revealed sinus rhythm with borderline left axis deviation Patient was admitted to medical floor for further evaluation and treatment, he was started on Tamiflu and steroids, pulmonary consultation was requested Past medical history is significant for history of COPD, history of coronary artery disease with previous history of myocardial infarction and angioplasty and stent placement in the past, history of hypertension, history of hyperlipidemia, previous history of respiratory arrest requiring mechanical ventilation On review of systems patient was seen and examined on the medical floor he is alert and oriented 3 in no apparent distress there is no fever or chills no headache or dizziness he has occasional cough with minimal sputum production he has shortness of breath with any activity no chest pain no nausea or vomiting no abdominal pain no diarrhea and no urinary symptoms On 08/22/2021 patient was seen and examined on the medical floor he is alert and oriented 3 in no apparent distress he is still complaining of cough and shortness of breath otherwise he denies any complaints there is no fever or ch ills no headache or dizziness no chest pain no nausea or vomiting no abdominal pain no diarrhea no blood in the stools no burning with urination no frequency or urgency and no hematuria, vital examination this morning temperature is 97.8 pulse 80 respiration 18 blood pressure 110/65 pulse ox 98% on 3 L nasal cannula, white blood count 7.2 hemoglobin 13.6 platelet count 255 Objective - Vital Signs Vital signs: Vital Signs Temp 97.8 F 08/22/21 01:26 Pulse 74 08/22/21 11:52 Resp 18 08/22/21 01:26 BP 110/65 08/22/21 01:26 Pulse Ox 97 08/22/21 08:21 FiO2 Intake & Output 08/21/21 08/22/2122 18:59 06:59 18:59 Intake Total 1200 Balance 1200 Intake: Intake, IV Titration 900 Amount Sodium Chloride 0.9% 1, 900 000 ml @ 75 mls/hr IV . [id number] [facility] Rx#:[id number] Oral 300 Other: # Voids 2 - Exam In general patient is alert and oriented x 3 in no distress HEENT head normocephalic and atraumatic Neck is supple no JVD no goiter no lymphadenopathy no carotid bruit Chest examination reveals a scattered crackles bilaterally with mild wheezing Cardiac exam reveals regular heart sounds S1 and S2 no gallops no murmurs Abdomen is soft nontender no organomegaly with normal bowel sounds Extremity exam reveals no edema no cyanosis or clubbing Neurological examination reveals no gross focal deficits - Labs CBC & Chem 7: 08/22/21 08:08 08/22/21 08:08 Labs: Abnormal Lab Results - Last 24 Hours (Table) 08/22/21 Range/Units 08:08 Calcium 8.2 L (8.4-10.2) mg/dL Total Protein 6.2 L (6.3-8.2) g/dL Assessment and Plan Plan: Acute purulent bronchitis Acute exacerbation of chronic obstructive pulmonary disease Positive for influenza A Underlying history of coronary artery disease Underlying history of hypertension Underlying history of hyperlipidemia Underlying history of osteoarthritis with multiple orthopedic surgeries At this time patient is admitted to medical floor he was started on Tamiflu and prednisone He was also started on inhaled bronchodilators Home medications reviewed and reordered Pulmonary consultation requested Will follow closely
[2021-08-22] MEDS: SODIUM CHLORIDE 0.9% 1,000 ML IV SCH ×2 (17:48→17:49)
[2021-08-22] MEDS: MONTELUKAST 10 MG TAB PO SCH (21:13)
[2021-08-22] MEDS: ATORVASTATIN 80 MG TAB PO SCH (21:13)
[2021-08-23] MEDS: guaiFENesin-Coden 100-10MG/5ML 10 ML CUP PO PRN (00:13)
[2021-08-23] MEDS: IPRATROPIUM-ALBUTEROL 3 ML NEB INHALATION PRN ×3 (00:56→11:15)
[2021-08-23] MEDS: ACETAMINOPHEN TAB 325 MG TAB PO PRN (01:18)
[2021-08-23] MEDS: ENOXAPARIN 40 MG/0.4 ML SYRINGE SQ SCH (07:42)
[2021-08-23] MEDS: BUDESONIDE 1 MG/2 ML NEBU INHALATION SCH (07:43)
[2021-08-23] MEDS: METOPROLOL SUCCINATE (ER) 50 MG TAB.ER.24H PO SCH (07:57)
[2021-08-23] MEDS: OSELTAMIVIR 75 MG CAP PO SCH (07:58)
[2021-08-23] MEDS: ISOSORBIDE MONONITRATE ER 60 MG TAB.ER.24H PO SCH (07:58)
[2021-08-23] MEDS: predniSONE 50 MG TAB PO SCH (07:58)
[2021-08-23] MEDS: hydroCHLOROthiazide 12.5 MG CAP PO SCH (07:58)
[2021-08-23 13:56] VITALS: BP 111/72; PULSE 84; RESP 18; TEMP 98.1
--- NOTE | 2021-08-24 12:39 | P.DS ---
Providers Date of admission: 08/20/21 18:59 Expected date of discharge: 08/23/21 Attending physician: Alvin Frazier Consults: 08/21/21 11:12 Consult Physician Routine Consulting Provider: Gabriel Hudson Consult Reason/Comments: COPD, influenza A Do you want consulting provider notified?: Yes Primary care physician: Lora Cobb [facility] Course: Diagnosis on discharge: Acute purulent bronchitis Acute exacerbation of chronic obstructive pulmonary disease Positive for influenza A Underlying history of coronary artery disease Underlying history of hypertension Underlying history of hyperlipidemia Underlying history of osteoarthritis with multiple orthopedic surgeries Hospital course: Marcel Jo, is a 60-year-old male who presented to [facility] emergency room with a chief complaint of cough and shortness of breath. He was evaluated in the emergency room vital examination on presentation revealed a temperature of 97.9 pulse 99 respiration 32 blood pressure 114/81 pulse ox 97% on 3 L nasal cannula Laboratory data revealed a white blood count of 11.5 hemoglobin 14.2 platelet count 300 sodium 136 potassium 4.1 chloride 103 CO2 23 BUN 18 creatinine 0.85 influenza A titers were positive Testing in the emergency room revealed chest x-ray done in the emergency room revealed normal chest no change from before, EKG done in the emergency room revealed sinus rhythm with borderline left axis deviation Patient was admitted to medical floor for further evaluation and treatment, he was started on Tamiflu and steroids, pulmonary consultation was requested Past medical history is significant for history of COPD, history of coronary artery disease with previous history of myocardial infarction and angioplasty and stent placement in the past, history of hypertension, history of hyperlipidemia, previous history of respiratory arrest requiring mechanical ventilation On review of systems patient was seen and examined on the medical floor he is alert and oriented 3 in no apparent distress there is no fever or chills no headache or dizziness he has occasional cough with minimal sputum production he has shortness of breath with any activity no chest pain no nausea or vomiting no abdominal pain no diarrhea and no urinary symptoms On 08/22/2021 patient was seen and examined on the medical floor he is alert and oriented 3 in no apparent distress he is still complaining of cough and shortness of breath otherwise he denies any complaints there is no fever or chills no headache or dizziness no chest pain no nausea or vomiting no abdominal pain no diarrhea no blood in the stools no burning with urination no frequency or urgency and no hematuria, vital examination this morning temperature is 97.8 pulse 80 respiration 18 blood pressure 110/65 pulse ox 98% on 3 L nasal cannula, white blood count 7.2 hemoglobin 13.6 platelet count 255 On 08/23 2021 patient was seen and examined on the medical floor he is alert and oriented 3 in no apparent distress he reports improvement in his cough and shortness of breath. He was evaluated by Dr. Gray pasteurizer and was cleared for discharge. Patient is maintained on oral prednisone oral Tamiflu and oral Zithromax he was given prescriptions for same he will be discharged home today follow-up with primary care physician within one week, follow-up with Dr. Gray pasteurizer in 1-2 weeks Patient Condition at Discharge: Fair Plan - Discharge Summary Discharge Rx Participant: No New Discharge Prescriptions: New Oseltamivir [Tamiflu] 75 mg PO BID cap Continue Metoprolol Succinate (ER) [Toprol XL] 50 mg PO DAILY Clopidogrel [Plavix] 75 mg PO DAILY #30 tab Montelukast [Singulair] 10 mg PO HS Aspirin 81 mg PO DAILY predniSONE 50 mg PO DAILY #5 tab Nitroglycerin Sl Tabs [Nitrostat] 0.4 mg SL Q5M PRN #25 tab PRN Reason: Chest Pain Isosorbide Mononitrate ER [Imdur] 60 mg PO DAILY Atorvastatin Calcium [Lipitor] 80 mg PO HS Ipratropium-Albuterol Nebulize [Duoneb 0.5 mg-3 mg/3 ml Soln] 3 ml INHALATION RT-Q4H PRN ml PRN Reason: Shortness Of Breath Or Wheezing Budesonide [Pulmicort] 1 mg INHALATION RT-BID ml Azithromycin [Zithromax Z-pack (6 tabs)] See Taper PO DIRECTED Albuterol Sulfate [Proair Hfa] 1 - 2 puff INHALATION RT-Q4H PRN PRN Reason: Shortness Of Breath Albuterol Nebulized [Ventolin Nebulized] 2.5 mg INHALATION RT-Q4H PRN PRN Reason: Shortness Of Breath Hydrochlorothiazide [hydroCHLOROthiazide] 12.5 mg PO DAILY Discharge Medication List Metoprolol Succinate (ER) [Toprol XL] 50 mg PO DAILY 10/30/20 [History] Clopidogrel [Plavix] 75 mg PO DAILY #30 tab 11/02/20 [Rx] Montelukast [Singulair] 10 mg PO HS 11/23/20 [History] Nitroglycerin Sl Tabs [Nitrostat] 0.4 mg SL Q5M PRN #25 tab 11/30/20 [Rx] Aspirin 81 mg PO DAILY 03/25/21 [History] Atorvastatin Calcium [Lipitor] 80 mg PO HS 03/25/21 [History] Isosorbide Mononitrate ER [Imdur] 60 mg PO DAILY 03/25/21 [History] Budesonide [Pulmicort] 1 mg INHALATION RT-BID ml 03/31/21 [Rx] Ipratropium-Albuterol Nebulize [Duoneb 0.5 mg-3 mg/3 ml Soln] 3 ml INHALATION RT-Q4H PRN ml 03/31/21 [Rx] predniSONE 50 mg PO DAILY #5 tab 08/17/21 [Rx] Albuterol Nebulized [Ventolin Nebulized] 2.5 mg INHALATION RT-Q4H PRN 08/20/21 [History] Albuterol Sulfate [Proair Hfa] 1 - 2 puff INHALATION RT-Q4H PRN 08/20/21 [History] Azithromycin [Zithromax Z-pack (6 tabs)] See Taper PO DIRECTED 08/20/21 [History] Hydrochlorothiazide [hydroCHLOROthiazide] 12.5 mg PO DAILY 08/20/21 [History] Oseltamivir [Tamiflu] 75 mg PO BID cap 08/23/21 [Rx] Follow up Appointment(s)/Referral(s): Lora Cobb MD [Primary Care Provider] - 1-2 days Gabriel Hudson MD [Family Provider] - 1 Week Patient Instructions/Handouts: Influenza (DC) Discharge Disposition: HOME SELF-CARE
== END 2021-08-23 14:14 | disposition home or self-care (01) | DRG 194 ==
LOC: EC 15:32 → 4SSUR 18:59
PROVIDERS: ADMIT Internal Medicine; ATTEND Internal Medicine
DX: J10.1 Influenza due to other identified influenza virus with other respiratory manifestations (principal); J44.1 Chronic obstructive pulmonary disease with (acute) exacerbation; J44.0 Chronic obstructive pulmonary disease with (acute) lower respiratory infection; E78.5 Hyperlipidemia, unspecified; I11.9 Hypertensive heart disease without heart failure; I25.10 Atherosclerotic heart disease of native coronary artery without angina pectoris; Z77.090 Contact with and (suspected) exposure to asbestos; M13.0 Polyarthritis, unspecified; Z96.653 Presence of artificial knee joint, bilateral; Z98.890 Other specified postprocedural states; I25.2 Old myocardial infarction; Z87.891 Personal history of nicotine dependence; Z79.02 Long term (current) use of antithrombotics/antiplatelets; Z79.82 Long term (current) use of aspirin; Z79.899 Other long term (current) drug therapy; Z88.1 Allergy status to other antibiotic agents; Z95.5 Presence of coronary angioplasty implant and graft; Z80.1 Family history of malignant neoplasm of trachea, bronchus and lung; Z80.8 Family history of malignant neoplasm of other organs or systems; Z82.49 Family history of ischemic heart disease and other diseases of the circulatory system; Z83.3 Family history of diabetes mellitus; J20.9 Acute bronchitis, unspecified
CPT/HCPCS: 36415; 71046; 80053; 82803; 83605; 83735; 83880; 84484; 85025; 85379; 85610; 85730; 87502; 87635; 93005; 94640; 94760; 96365; 96375; 99285

== ENCOUNTER 2021-12-13 19:06 | Inpatient (IN) | payer MEDICARE, OTHER ==
--- NOTE | 2021-12-13 20:49 | ED ---
General Adult HPI - General Chief complaint: Chest Pain Stated complaint: chest pain - taking blood thinners Time Seen by Provider: 12/13/21 20:47 Source: patient Mode of arrival: wheelchair Limitations: no limitations - History of Present Illness Initial comments: Patient presents to the ED complaining of having intermittent, substernal chest pain for the past 2 days. Patient states that his pain returned again about 7 hours ago today while he was exerting himself in his shed. Patient states that his chest pain has currently resolved. Patient states that he did take a subungual nitroglycerin tabs while in the ED waiting room. Patient states that he has a history of cardiac stents. Patient admits to having associated dyspnea, nausea and diaphoresis. Patient states that his pain radiates to his right arm at times. Patient denies trauma or injury, fever or chills, headache, focal neuro deficit, neck/jaw/back pain, pleuritic pain, cough or cold symptoms, palpitations, dizziness, abdominal pain, vomiting or diarrhea, dysuria or urinary symptoms, decreased urine output, leg or calf swelling or pain, or any other symptoms or complaints. - Related Data Home Medications Medication Instructions Recorded Confirmed Metoprolol Succinate (ER) [Toprol 50 mg PO DAILY 10/30/20 12/13/21 XL] Montelukast [Singulair] 10 mg PO HS 11/23/20 12/13/21 Atorvastatin Calcium [Lipitor] 80 mg PO HS 03/25/21 12/13/21 Isosorbide Mononitrate ER [Imdur] 60 mg PO DAILY 03/25/21 12/13/21 Albuterol Nebulized [Ventolin 2.5 mg INHALATION RT-Q4H PRN 08/20/21 12/13/21 Nebulized] Albuterol Sulfate [Proair Hfa] 1 - 2 puff INHALATION RT-Q4H PRN 08/20/21 12/13/21 hydroCHLOROthiazide 12.5 mg PO DAILY 08/20/21 12/13/21 Aspirin EC [Ecotrin Low Dose] 81 mg PO DAILY 12/13/21 12/13/21 Famotidine [Pepcid] 20 mg PO BID 12/13/21 12/13/21 Previous Rx's Medication Instructions Recorded Clopidogrel [Plavix] 75 mg PO DAILY #30 tab 11/02/20 Nitroglycerin Sl Tabs [Nitrostat] 0.4 mg SL Q5M PRN #25 tab 11/30/20 Budesonide [Pulmicort] 1 mg INHALATION RT-BID ml 03/31/21 Ipratropium-Albuterol Nebulize 3 ml INHALATION RT-Q4H PRN ml 03/31/21 [Duoneb 0.5 mg-3 mg/3 ml Soln] Allergies Allergy/AdvReac Type Severity Reaction Status Date / Time levofloxacin [From Levaquin] AdvReac Nausea & Verified 12/13/21 22:02 Vomiting Review of Systems ROS Statement: Those systems with pertinent positive or pertinent negative responses have been documented in the HPI. ROS Other: All systems not noted in ROS Statement are negative. Past Medical History Past Medical History: Coronary Artery Disease (CAD), COPD, Hyperlipidemia, Hyp ertension, Myocardial Infarction ([place]) Additional Past Medical History / Comment(s): Pt states he has hx of 3 respiratory arrests and was vented, generalized arthritis, Last Myocardial Infarction Date:: History of Any Multi-Drug Resistant Organisms: None Reported Past Surgical History: Adenoidectomy, Heart Catheterization With Stent, Hernia Repair, Joint Replacement, Orthopedic Surgery, Tonsillectomy Additional Past Surgical History / Comment(s): R inguinal hernia repair, L rotator cuff repair, bialteral total knee arthroplasties, R shoulder spur removal, teeth extracted, colonoscopy-normal. third hernia repair, left side, stents x2 2020 ear Past Anesthesia/Blood Transfusion Reactions: No Reported Reaction Date of Last Stent Placement:: 2018 Past Psychological History: No Psychological Hx Reported Additional Psychological History / Comment(s): He uses no assistive devices. Smoking Status: Former smoker Past Alcohol Use History: Occasional Additional Past Alcohol Use History / Comment(s): patient quit smoking in 12/2018, but has restarted. He uses marijuana (edilbel) daily for pain. He is recovering alcoholic and he drinks alcohol rarely at this point. He has history of illicit drug use including Phen-Fen a means, LSD, cocaine, heroin and quit all of this 10 years ago. 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 Past Drug Use History: Marijuana Additional Drug Use History / Comment(s): He states in the past he has used marijuana, heroin, crystal meth, cocaine and crack but none of those drugs for about 9 yrs. - Past Family History Father Family Medical History: Cancer Additional Family Medical History / Comment(s): Father of lung cancer at the age of 62. He was a smoker. Mother Family Medical History: Cancer, Diabetes Mellitus, Hypertension Additional Family Medical History / Comment(s): Mother at age 78 from brainstem cancer. Brother(s) Additional Family Medical History / Comment(s): Patient's 1 brother with history of AAA. Patient has 4 sisters and he does not know any of their medical history. Patient's 1 son and 1 daughter living. He had one daughter that at 7 weeks old from a congenital heart. General Exam Limitations: no limitations General appearance: alert, in no apparent distress Head exam: Present: atraumatic, normocephalic Eye exam: Present: normal appearance, EOMI ENT exam: Present: mucous membranes moist Neck exam: Present: other (Trachea is in midline) Respiratory exam: Present: normal lung sounds bilaterally. Absent: respiratory distress, wheezes, rales, rhonchi, stridor, chest wall tenderness Cardiovascular Exam: Present: regular rate, normal rhythm, normal heart sounds, other (Normal radial pulses bilaterally) GI/Abdominal exam: Present: soft. Absent: distended, tenderness, guarding Extremities exam: Present: other (Negative Homans sign bilaterally). Absent: tenderness, pedal edema, calf tenderness Neurological exam: Present: alert, oriented X3. 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 Frazier. He accepts hospital admission. He agrees with cardiology consultation. He has no further recommendations at this time. 12/13/21 23:01 Patient continues to deny having any chest pain while in the ED. Patient remains alert and breathing comfortably with a normal room air oxygen saturation. Patient is aware of his test results, and he agrees with hospital admission at this time. EKG Findings - EKG Comments: EKG Findings:: Normal sinus rhythm, ventricular rate of 78 bpm, no ectopy, normal IL and QRS intervals, normal QT interval, no ST or T-wave abnormality, borderline leftward axis Medical Decision Making - Medical Decision Making Given the patient's history of coronary artery disease, cardiac risk factors and reported history, will admit the patient to the hospital for cardiology consultation, cardiac monitoring and serial enzymes. Patient's initial troponin is negative. Patient's EKG does not show any acute ischemic findings. Patie nt's chest x-ray is unremarkable. Patient's labs are fairly unremarkable. Patient has been chest pain-free while in the ED. Patient was given a dose of oral aspirin in the ED. Dr. Frazier has accepted hospital admission. - Lab Data Result diagrams: 12/13/21 21:05 12/13/21 21:05 Lab Results 12/13/21 12/13/21 12/13/21 Range/Units 21:05 21:05 21:05 WBC 10.3 (3.8-10.6) k/uL RBC 4.82 (4.30-5.90) m/uL Hgb 14.2 (13.0-17.5) gm/dL Hct 42.4 (39.0-53.0) % MCV 88.0 (80.0-100.0) fL MCH 29.4 (25.0-35.0) pg MCHC 33.4 (31.0-37.0) g/dL RDW 13.5 (11.5-15.5) % Plt Count 214 (150-450) k/uL MPV 8.4 Neutrophils % 65 % Lymphocytes % 24 % Monocytes % 7 % Eosinophils % 2 % Basophils % 1 % Neutrophils # 6.7 (1.3-7.7) k/uL Lymphocytes # 2.5 (1.0-4.8) k/uL Monocytes # 0.7 (0-1.0) k/uL Eosinophils # 0.2 (0-0.7) k/uL Basophils # 0.1 (0-0.2) k/uL PT 10.2 (9.0-12.0) sec INR 0.9 (<1.2) APTT 25.2 (22.0-30.0) sec Sodium 137 (137-145) mmol/L Potassium 3.8 (3.5-5.1) mmol/L Chloride 104 (98-107) mmol/L Carbon Dioxide 21 L (22-30) mmol/L Anion Gap 12 mmol/L BUN 20 (9-20) mg/dL Creatinine 1.00 (0.66-1.25) mg/dL Est GFR (CKD-EPI)AfAm >90 (>60 ml/min/1.73 sqM) Est GFR (CKD-EPI)NonAf 82 (>60 ml/min/1.73 sqM) Glucose 105 H (74-99) mg/dL Calcium 9.2 (8.4-10.2) mg/dL Magnesium 2.0 (1.6-2.3) mg/dL Total Bilirubin 0.6 (0.2-1.3) mg/dL AST 22 (17-59) U/L ALT 16 (4-49) U/L Alkaline Phosphatase 119 (38-126) U/L Troponin I (0.000-0.034) ng/mL NT-Pro-B Natriuret Pep pg/mL Total Protein 6.4 (6.3-8.2) g/dL Albumin 4.1 (3.5-5.0) g/dL 12/13/21 12/13/21 Range/Units 21:05 21:05 WBC (3.8-10.6) k/uL RBC (4.30-5.90) m/uL Hgb (13.0-17.5) gm/dL Hct (39.0-53.0) % MCV (80.0-100.0) fL MCH (25.0-35.0) pg MCHC (31.0-37.0) g/dL RDW (11.5-15.5) % Plt Count (150-450) k/uL MPV Neutrophils % % Lymphocytes % % Monocytes % % Eosinophils % % Basophils % % Neutrophils # (1.3-7.7) k/uL Lymphocytes # (1.0-4.8) k/uL Monocytes # (0-1.0) k/uL Eosinophils # (0-0.7) k/uL Basophils # (0-0.2) k/uL PT (9.0-12.0) sec INR (<1.2) APTT (22.0-30.0) sec Sodium (137-145) mmol/L Potassium (3.5-5.1) mmol/L Chloride (98-107) mmol/L Carbon Dioxide (22-30) mmol/L Anion Gap mmol/L BUN (9-20) mg/dL Creatinine (0.66-1.25) mg/dL Est GFR (CKD-EPI)AfAm (>60 ml/min/1.73 sqM) Est GFR (CKD-EPI)NonAf (>60 ml/min/1.73 sqM) Glucose (74-99) mg/dL Calcium (8.4-10.2) mg/dL Magnesium (1.6-2.3) mg/dL Total Bilirubin (0.2-1.3) mg/dL AST (17-59) U/L ALT (4-49) U/L Alkaline Phosphatase (38-126) U/L Troponin I <0.012 (0.000-0.034) ng/mL NT-Pro-B Natriuret Pep 66 pg/mL Total Protein (6.3-8.2) g/dL Albumin (3.5-5.0) g/dL - Radiology Data Chest x-ray: Normal chest. No change. Disposition Clinical Impression: Chest pain Disposition: ADMITTED IP TO THIS HOSP Condition: Stable Is patient prescribed a controlled substance at d/c from ED?: No Referrals: Lora Cobb MD [Primary Care Provider] - 1-2 days Time of Disposition: 22:57
[2021-12-13] MEDS ORDERED: NITROGLYCERIN OINT 1 INCH/GM PACKET TOPICAL STA (20:57)
[2021-12-13] MEDS ORDERED: ASPIRIN 81 MG PO STA (20:57)
--- NOTE | 2021-12-13 20:58 | XR ---
EXAMINATION TYPE: XR chest 2V DATE OF EXAM: 12/13/2021 COMPARISON: 08/20/2021 HISTORY: Chest pain TECHNIQUE: FINDINGS: Heart and mediastinum are normal. Lungs are clear. Diaphragm is normal. Bony thorax is inta ct. IMPRESSION: Normal chest. No change.
[2021-12-13 21:40] LABS: Basophils # (A) 0.1 k/uL (0-0.2); Basophils % (A) 1 %; Eosinophils # (A) 0.2 k/uL (0-0.7); Eosinophils % (A) 2 %; HCT 42.4 % (39.0-53.0); HGB 14.2 gm/dL (13.0-17.5); Lymphocytes # (A) 2.5 k/uL (1.0-4.8); Lymphocytes % (A) 24 %; MCH 29.4 pg (25.0-35.0); MCHC 33.4 g/dL (31.0-37.0); Mean Platelet Volume 8.4; Monocytes # (A) 0.7 k/uL (0-1.0); Monocytes % (A) 7 %; Neutrophils # (A) 6.7 k/uL (1.3-7.7); Neutrophils % (A) 65 %; Platelet Count 214 k/uL (150-450); RBC 4.82 m/uL (4.30-5.90); RDW 13.5 % (11.5-15.5); WBC 10.3 k/uL (3.8-10.6)
[2021-12-13 21:53] LABS: INR 0.9 (<1.2); Partial Thromboplastin Time 25.2 sec (22.0-30.0); Prothrombin Time 10.2 sec (9.0-12.0)
[2021-12-13 21:55] LABS: ALT 16 U/L (4-49); AST 22 U/L (17-59); African American GFR (CKD) >90 (>60 ml/min/1.73 sqM); Albumin 4.1 g/dL (3.5-5.0); Alkaline Phosphatase 119 U/L (38-126); Anion Gap 12 mmol/L; Blood Urea Nitrogen 20 mg/dL (9-20); Calcium 9.2 mg/dL (8.4-10.2); Carbon Dioxide 21 mmol/L (22-30); Chloride 104 mmol/L (98-107); Glucose 105 mg/dL (74-99); Non-African American GFR(CKD) 82 (>60 ml/min/1.73 sqM); Potassium 3.8 mmol/L (3.5-5.1); Sodium 137 mmol/L (137-145); Total Bilirubin 0.6 mg/dL (0.2-1.3); Total Protein 6.4 g/dL (6.3-8.2)
[2021-12-14 03:18] LABS: Basophils # (A) 0.1 k/uL (0-0.2); Basophils % (A) 1 %; Eosinophils # (A) 0.3 k/uL (0-0.7); Eosinophils % (A) 3 %; HCT 41.4 % (39.0-53.0); HGB 13.7 gm/dL (13.0-17.5); Lymphocytes # (A) 2.1 k/uL (1.0-4.8); Lymphocytes % (A) 26 %; MCH 29.6 pg (25.0-35.0); MCHC 33.1 g/dL (31.0-37.0); MCV 89.4 fL (80.0-100.0); Mean Platelet Volume 8.3; Monocytes # (A) 0.5 k/uL (0-1.0); Monocytes % (A) 6 %; Neutrophils # (A) 4.9 k/uL (1.3-7.7); Neutrophils % (A) 62 %; Platelet Count 200 k/uL (150-450); RBC 4.63 m/uL (4.30-5.90); RDW 13.5 % (11.5-15.5); WBC 7.9 k/uL (3.8-10.6)
[2021-12-14 03:37] LABS: ALT 15 U/L (4-49); AST 20 U/L (17-59); African American GFR (CKD) >90 (>60 ml/min/1.73 sqM); Albumin 3.6 g/dL (3.5-5.0); Alkaline Phosphatase 111 U/L (38-126); Anion Gap 9 mmol/L; Blood Urea Nitrogen 19 mg/dL (9-20); Calcium 8.9 mg/dL (8.4-10.2); Carbon Dioxide 25 mmol/L (22-30); Chloride 103 mmol/L (98-107); Glucose 161 mg/dL (74-99); Non-African American GFR(CKD) 88 (>60 ml/min/1.73 sqM); Potassium 3.4 mmol/L (3.5-5.1); Sodium 137 mmol/L (137-145); Total Bilirubin 0.6 mg/dL (0.2-1.3); Total Protein 5.9 g/dL (6.3-8.2)
--- NOTE | 2021-12-14 09:04 | P.CRDCN ---
History of Present Illness Consult date: 12/14/21 Chief complaint: Chest pain History of present illness: This is a pleasant 61-year-old gentleman who is known to me from before with a past medical history significant for coronary artery disease with prior stenting of the RCA, known coronary vasospasm has been controlled on oral nitrate, as well as hypertension and dyslipidemia. He requested to see the patient for further evaluation of chest discomfort. The patient presented to the hospital complaining of chest discomfort. He described the discomfort as a pressure/dull kind of discomfort in the middle of the chest was no radiation and no associated symptoms. The discomfort it seems to be exertional and nonexertional according to him. No dizziness or lightheadedness and no feeling of heart racing or fluttering and no presyncope or syncope. He underwent further investigation inc luding EKG showing sinus rhythm was no significant ST or T-wave abnormalities and also he underwent a chest x-ray showed no acute abnormalities as well as cardiac enzymes came in to be unremarkable but currently is chest pain-free. Hemodynamically he is stable. He is known to have coronary artery disease and he underwent a heart catheterization in November 2020 year ago and that revealed patent stent in the right coronary artery was evidence of coronary vasospasm and sensation he was started on oral nitrate with improvement in the chest discomfort. Past Medical History Past Medical History: Coronary Artery Disease (CAD), COPD, Hyperlipidemia, Hypertension, Myocardial Infarction ([place]) Additional Past Medical History / Comment(s): Pt states he has hx of 3 respiratory arrests and was vented, generalized arthritis, Last Myocardial Infarction Date:: History of Any Multi-Drug Resistant Organisms: None Reported Past Surgical History: Adenoidectomy, Heart Catheterization With Stent, Hernia Repair, Joint Replacement, Orthopedic Surgery, Tonsillectomy Additional Past Surgical History / Comment(s): R inguinal hernia repair, L rotator cuff repair, bialteral total knee arthroplasties, R shoulder spur removal, teeth extracted, colonoscopy-normal. third hernia repair, left side, stents x2 2020 ear Past Anesthesia/Blood Transfusion Reactions: No Reported Reaction Date of Last Stent Placement:: 2018 Past Psychological History: No Psychological Hx Reported Additional Psychological History / Comment(s): He uses no assistive devices. Smoking Status: Former smoker Past Alcohol Use History: Occasional Additional Past Alcohol Use History / Comment(s): patient quit smoking in 12/2018, but has restarted. He uses marijuana (edilbel) daily for pain. He is recovering alcoholic and he drinks alcohol rarely at this point. He has history of illicit drug use including Phen-Fen a means, LSD, cocaine, heroin and quit all of this 10 years ago. 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 Past Drug Use History: Marijuana Additional Drug Use History / Comment(s): He states in the past he has used marijuana, heroin, crystal meth, cocaine and crack but none of those drugs for about 9 yrs. - Past Family History Father Family Medical History: Cancer Additional Family Medical History / Comment(s): Father of lung cancer at the age of 62. He was a smoker. Mother Family Medical History: Cancer, Diabetes Mellitus, Hypertension Additional Family Medical History / Comment(s): Mother at age 78 from brainstem cancer. Brother(s) Additional Family Medical History / Comment(s): Patient's 1 brother with history of AAA. Patient has 4 sisters and he does not know any of their medical history. Patient's 1 son and 1 daughter living. He had one daughter that at 7 weeks old from a congenital heart. Medications and Allergies Home Medications Medication Instructions Recorded Confirmed Type Metoprolol Succinate (ER) [Toprol 50 mg PO DAILY 10/30/20 12/13/21 History XL] Clopidogrel [Plavix] 75 mg PO DAILY #30 tab 11/02/20 12/13/21 Rx Montelukast [Singulair] 10 mg PO HS 11/23/20 12/13/21 History Nitroglycerin Sl Tabs [Nitrostat] 0.4 mg SL Q5M PRN #25 tab 11/30/20 12/13/21 Rx Atorvastatin Calcium [Lipitor] 80 mg PO HS 03/25/21 12/13/21 History Isosorbide Mononitrate ER [Imdur] 60 mg PO DAILY 03/25/21 12/13/21 History Budesonide [Pulmicort] 1 mg INHALATION RT-BID ml 03/31/21 12/13/21 Rx Ipratropium-Albuterol Nebulize 3 ml INHALATION RT-Q4H PRN ml 03/31/21 12/13/21 Rx [Duoneb 0.5 mg-3 mg/3 ml Soln] Albuterol Nebulized [Ventolin 2.5 mg INHALATION RT-Q4H PRN 08/20/21 12/13/21 History Nebulized] Albuterol Sulfate [Proair Hfa] 1 - 2 puff INHALATION RT-Q4H PRN 08/20/21 12/13/21 History hydroCHLOROthiazide 12.5 mg PO DAILY 08/20/21 12/13/21 History Aspirin EC [Ecotrin Low Dose] 81 mg PO DAILY 12/13/21 12/13/21 History Famotidine [Pepcid] 20 mg PO BID 12/13/21 12/13/21 History Allergies Allergy/AdvReac Type Severity Reaction Status Date / Time levofloxacin [From Levaquin] AdvReac Nausea & Verified 12/13/21 22:02 Vomiting Physical Exam Vitals: Vital Signs Temp Pulse Pulse Resp BP Pulse Ox 12/14/21 06:10 69 14 112/80 95 12/14/21 01:18 77 16 97 12/13/21 23:05 96.9 F L 74 20 126/66 97 12/13/21 21:57 97.8 F 75 16 128/80 96 12/13/21 20:00 78 12/13/21 19:18 98.0 F 88 16 127/85 97 Intake and Output 12/13/21 12/14/21 12/14/21 22:59 06:59 14:59 Other: Weight 95.254 kg - Constitutional General appearance: no acute distress - Respiratory Respiratory: bilateral: CTA - Cardiovascular Rhythm: regular Results 12/14/21 02:50 12/14/21 02:50 Cardiac Enzymes 12/13/21 12/13/21 12/14/21 Range/Units 21:05 21:05 00:00 AST 22 (17-59) U/L Troponin I <0.012 <0.012 (0.000-0.034) ng/mL 12/14/21 12/14/21 Range/Units 02:50 02:50 AST 20 (17-59) U/L Troponin I <0.012 (0.000-0.034) ng/mL Coagulation 12/13/21 Range/Units 21:05 PT 10.2 (9.0-12.0) sec APTT 25.2 (22.0-30.0) sec CBC 12/13/21 12/14/21 Range/Units 21:05 02:50 WBC 10.3 7.9 (3.8-10.6) k/uL RBC 4.82 4.63 (4.30-5.90) m/uL Hgb 14.2 13.7 (13.0-17.5) gm/dL Hct 42.4 41.4 (39.0-53.0) % Plt Count 214 200 (150-450) k/uL Comprehensive Metabolic Panel 12/13/21 12/14/21 Range/Units 21:05 02:50 Sodium 137 137 (137-145) mmol/L Potassium 3.8 3.4 L (3.5-5.1) mmol/L Chloride 104 103 (98-107) mmol/L Carbon Dioxide 21 L 25 (22-30) mmol/L BUN 20 19 (9-20) mg/dL Creatinine 1.00 0.94 (0.66-1.25) mg/dL Glucose 105 H 161 H (74-99) mg/dL Calcium 9.2 8.9 (8.4-10.2) mg/dL AST 22 20 (17-59) U/L ALT 16 15 (4-49) U/L Alkaline Phosphatase 119 111 (38-126) U/L Total Protein 6.4 5.9 L (6.3-8.2) g/dL Albumin 4.1 3.6 (3.5-5.0) g/dL Current Medications Generic Name Dose Route Start Last Admin Trade Name Freq PRN Reason Stop Dose Admin Albuterol/Ipratropium 3 ml 12/14/21 08:43 Ipratropium-Albuterol 3 Ml Neb INHALATION RT-Q4H PRN Shortness Of Breath Or Wheezing Aspirin 81 mg 12/14/21 09:00 Aspirin 81 Mg PO DAILY [facility] Atorvastatin Calcium 80 mg 12/14/21 21:00 Atorvastatin 80 Mg Tab PO HS [facility] Budesonide 1 mg 12/14/21 20:00 Budesonide 1 Mg/2 Ml Nebu INHALATION RT-BID [facility] Clopidogrel Bisulfate 75 mg 12/14/21 09:00 Clopidogrel 75 Mg Tab PO DAILY [facility] Famotidine 20 mg 12/14/21 09:00 Famotidine 20 Mg Tab PO BID [facility] Hydrochlorothiazide 12.5 mg 12/14/21 09:00 Hydrochlorothiazide 12.5 Mg Cap PO DAILY PR[facility] Isosorbide Mononitrate 60 mg 12/14/21 09:00 Isosorbide Mononitrate Er 60 Mg Tab.Er.24h PO DAILY [facility] Metoprolol Succinate 50 mg 12/14/21 09:00 Metoprolol Succinate (Er) 50 Mg Tab.Er.24h PO DAILY PR[facility] Montelukast Sodium 10 mg 12/14/21 21:00 Montelukast 10 Mg Tab PO HS PRASHANT Intake and Output 12/13/21 12/14/21 12/14/21 22:59 06:59 14:59 Other: Weight 95.254 kg 12/14/21 02:50 12/14/21 02:50 Assessment and Plan Assessment: Assessment Intermittent episodes of chest discomfort Known CAD with prior stenting of the RCA Known coronary vasospasm Hypertension Dyslipidemia Plan Acute coronary event was ruled out Heart catheterization from 2020 revealed patent stent in the RCA was evidence of coronary vasospasm I'm going to obtain an exercise treadmill stress test Follow-up with the patient
[2021-12-14] MEDS: IPRATROPIUM-ALBUTEROL 3 ML NEB INHALATION PRN ×4 (09:07→19:36)
[2021-12-14] MEDS: hydroCHLOROthiazide 12.5 MG CAP PO SCH (09:45)
[2021-12-14] MEDS: FAMOTIDINE 20 MG TAB PO SCH ×2 (09:45→19:55)
[2021-12-14] MEDS: ISOSORBIDE MONONITRATE ER 60 MG TAB.ER.24H PO SCH (09:45)
[2021-12-14] MEDS: ASPIRIN 81 MG PO SCH (09:45)
[2021-12-14] MEDS: METOPROLOL SUCCINATE (ER) 50 MG TAB.ER.24H PO SCH (09:45)
[2021-12-14] MEDS: CLOPIDOGREL 75 MG TAB PO SCH (09:45)
[2021-12-14] MEDS ORDERED: ALBUTEROL NEBULIZED 2.5 MG/3 ML INHALATION PRN (11:00)
[2021-12-14] MEDS ORDERED: ALBUTEROL HFA INHALER INHALATION PRN (11:00)
--- NOTE | 2021-12-14 11:50 | P.HPIM ---
History of Present Illness H&P Date: 12/14/21 Marcel Jo, is a 61-year-old male who presented to [facility] emergency room with a chief complaint of episodes of chest pain He was evaluated in the emergency room vital examination on presentation revealed a temperature of 98 pulse 88 respirations 16 blood pressure 127/85 pul se ox 97% on room air Laboratory data revealed a white blood count of 10.3 hemoglobin 14.2 platelet count 214 sodium 138 potassium 3.8 chloride 104 CO2 21 BUN 20 creatinine 1.0 Testing in the emergency room revealed EKG done in the emergency room revealed sinus rhythm with borderline left axis deviation, chest x-ray did not reveal any acute abnormality Patient was admitted to medical floor for further evaluation and treatment Past medical history is significant for history of coronary artery disease with previous history of cardiac catheterization with angioplasty and stent placement to the RCA, history of hypertension, history of hyperlipidemia, previous history of myocardial infarction, previous history of cardiac arrest requiring intubation and mechanical ventilation, history of osteoarthritis with bilateral total knee arthroplasty, history of hernia repair Past Medical History Past Medical History: Coronary Artery Disease (CAD), COPD, Hyperlipidemia, Hypertension, Myocardial Infarction (NC) Additional Past Medical History / Comment(s): Pt states he has hx of 3 respiratory arrests and was vented, generalized arthritis, Last Myocardial Infarction Date:: History of Any Multi-Drug Resistant Organisms: None Reported Past Surgical History: Adenoidectomy, Heart Catheterization With Stent, Hernia Repair, Joint Replacement, Orthopedic Surgery, Tonsillectomy Additional Past Surgical History / Comment(s): R inguinal hernia repair, L rotator cuff repair, bialteral total knee arthroplasties, R shoulder spur re moval, teeth extracted, colonoscopy-normal. third hernia repair, left side, stents x2 2020 ear Past Anesthesia/Blood Transfusion Reactions: No Reported Reaction Date of Last Stent Placement:: 2018 Past Psychological History: No Psychological Hx Reported Additional Psychological History / Comment(s): He uses no assistive devices. Smoking Status: Former smoker Past Alcohol Use History: Occasional Additional Past Alcohol Use History / Comment(s): patient quit smoking in 12/2018, but has restarted. He uses marijuana (edilbel) daily for pain. He is recovering alcoholic and he drinks alcohol rarely at this point. He has history of illicit drug use including Phen-Fen a means, LSD, cocaine, heroin and quit all of this 10 years ago. 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 Past Drug Use History: Marijuana Additional Drug Use History / Comment(s): He states in the past he has used marijuana, heroin, crystal meth, cocaine and crack but none of those drugs for about 9 yrs. - Past Family History Father Family Medical History: Cancer Additional Family Medical History / Comment(s): Father of lung cancer at the age of 62. He was a smoker. Mother Family Medical History: Cancer, Diabetes Mellitus, Hypertension Additional Family Medical History / Comment(s): Mother at age 78 from brainstem cancer. Brother(s) Additional Family Medical History / Comment(s): Patient's 1 brother with history of AAA. Patient has 4 sisters and he does not know any of their medical history. Patient's 1 son and 1 daughter living. He had one daughter that at 7 weeks old from a congenital heart. Medications and Allergies Home Medications Medication Instructions Recorded Confirmed Type Metoprolol Succinate (ER) [Toprol 50 mg PO DAILY 10/30/20 12/13/21 History XL] Clopidogrel [Plavix] 75 mg PO DAILY #30 tab 11/02/20 12/13/21 Rx Montelukast [Singulair] 10 mg PO HS 11/23/20 12/13/21 History Nitroglycerin Sl Tabs [Nitrostat] 0.4 mg SL Q5M PRN #25 tab 11/30/20 12/13/21 Rx Atorvastatin Calcium [Lipitor] 80 mg PO HS 03/25/21 12/13/21 History Isosorbide Mononitrate ER [Imdur] 60 mg PO DAILY 03/25/21 12/13/21 History Budesonide [Pulmicort] 1 mg INHALATION RT-BID ml 03/31/21 12/13/21 Rx Ipratropium-Albuterol Nebulize 3 ml INHALATION RT-Q4H PRN ml 03/31/21 12/13/21 Rx [Duoneb 0.5 mg-3 mg/3 ml Soln] Albuterol Nebulized [Ventolin 2.5 mg INHALATION RT-Q4H PRN 08/20/21 12/13/21 History Nebulized] Albuterol Sulfate [Proair Hfa] 1 - 2 puff INHALATION RT-Q4H PRN 08/20/21 12/13/21 History hydroCHLOROthiazide 12.5 mg PO DAILY 08/20/21 12/13/21 History Aspirin EC [Ecotrin Low Dose] 81 mg PO DAILY 12/13/21 12/13/21 History Famotidine [Pepcid] 20 mg PO BID 12/13/21 12/13/21 History Allergies Allergy/AdvReac Type Severity Reaction Status Date / Time levofloxacin [From Levaquin] AdvReac Nausea & Verified 12/13/21 22:02 Vomiting Physical Exam Vitals: Vital Signs Temp Pulse Pulse Resp BP BP Pulse Ox 12/14/21 09:21 64 12/14/21 09:08 64 12/14/21 07:00 98.0 F 74 20 112/75 96 12/14/21 06:10 69 14 112/80 95 12/14/21 01:18 77 16 97 12/13/21 23:05 96.9 F L 74 20 126/66 97 12/13/21 21:57 97.8 F 75 16 128/80 96 12/13/21 20:00 78 12/13/21 19:18 98.0 F 88 16 127/85 97 Intake and Output 12/13/21 12/14/21 12/14/21 22:59 06:59 14:59 Other: Weight 95.254 kg 95.254 kg In general patient is alert and oriented x 3 in no distress HEENT head normocephalic and atraumatic Neck is supple no JVD no goiter no lymphadenopathy no carotid bruit Chest examination is clear to auscultation no crackles no wheezing Cardiac exam reveals regular heart sounds S1 and S2 no gallops no murmurs Abdomen is soft nontender no organomegaly with normal bowel sounds Extremity exam reveals no edema no cyanosis or clubbing Neurological examination reveals no gross focal deficits Results CBC & Chem 7: 12/14/21 02:50 12/14/21 02:50 Labs: Abnormal Lab Results - Last 24 Hours (Table) 12/13/21 12/14/21 Range/Units 21:05 02:50 Potassium 3.4 L (3.5-5.1) mmol/L Carbon Dioxide 21 L (22-30) mmol/L Glucose 105 H 161 H (74-99) mg/dL Total Protein 5.9 L (6.3-8.2) g/dL Thrombosis Risk Factor Assmnt - Choose All That Apply Each Factor Represents 1 point: Age 41-60 years Thrombosis Risk Factor Assessment Total Risk Factor Score: 1 Thrombosis Risk Factor Assessment Level: Low Risk Assessment and Plan Plan: Episodes of chest pain Underlying history of coronary artery disease with previous history of angioplasty and stent placement to the RCA Underlying history of hypertension Underlying history of hyperlipidemia Underlying history of osteoarthritis Underlying history of COPD Previous history of smoking patient quit in 2019 At this time patient is admitted to telemetry floor He is chest pain-free Home medications reviewed and reordered Troponin level negative so far Cardiology consultation requested will follow closely
[2021-12-14] MEDS: ACETAMINOPHEN TAB 325 MG TAB PO PRN (12:49)
[2021-12-14] MEDS: BUDESONIDE 1 MG/2 ML NEBU INHALATION SCH (19:36)
[2021-12-14] MEDS: ATORVASTATIN 80 MG TAB PO SCH (19:55)
[2021-12-14] MEDS: MONTELUKAST 10 MG TAB PO SCH (19:55)
[2021-12-15] MEDS: BUDESONIDE 1 MG/2 ML NEBU INHALATION SCH ×2 (07:31→21:04)
[2021-12-15] MEDS: IPRATROPIUM-ALBUTEROL 3 ML NEB INHALATION PRN ×3 (07:31→21:05)
[2021-12-15] MEDS: hydroCHLOROthiazide 12.5 MG CAP PO SCH (08:40)
[2021-12-15] MEDS: FAMOTIDINE 20 MG TAB PO SCH ×2 (08:40→20:41)
[2021-12-15] MEDS: CLOPIDOGREL 75 MG TAB PO SCH (08:40)
[2021-12-15] MEDS: ASPIRIN 81 MG PO SCH (08:40)
[2021-12-15 09:38] LABS: Basophils # (A) 0.07 X 10*3/uL (0.00-0.10); Basophils % (A) 0.8 %; Eosinophils # (A) 0.21 X 10*3/uL (0.04-0.35); Eosinophils % (A) 2.3 %; HCT 41.4 % (39.6-50.0); HGB 13.8 g/dL (13.0-17.0); Immature Grans, Automated 0.4 %; Lymphocytes # (A) 2.69 X 10*3/uL (0.90-5.00); Lymphocytes % (A) 29.5 %; MCH 29.1 pg (27.0-32.0); MCHC 33.3 g/dL (32.0-37.0); MCV 87.2 fL (80.0-97.0); Mean Platelet Volume 11.4 fL (9.5-12.2); Monocytes # (A) 0.64 X 10*3/uL (0.20-1.00); NRBC Per 100 WBC 0 /100 WBCS (0.0-0.0); Neutrophils # (A) 5.47 X 10*3/uL (1.80-7.70); Platelet Count 218 X 10*3/uL (140-440); RBC 4.75 X 10*6/uL (4.40-5.60); RDW 13.6 % (11.5-14.5); WBC 9.12 X 10*3/uL (4.50-10.00)
[2021-12-15 09:41] LABS: African American GFR (CKD) 94.4 (60.0-200.0); Albumin 4.1 g/dL (3.8-4.9); Albumin/Globulin Ratio 1.95 (1.60-3.17); Anion Gap 9.3 mmol/L (10.00-18.00); BUN/Creat Ratio 13.5 Ratio (12.00-20.00); Blood Urea Nitrogen 13.5 mg/dL (9.0-27.0); Calcium 9.1 mg/dL (8.7-10.3); Carbon Dioxide 25.7 mmol/L (20.0-27.5); Globulin 2.1 g/dL (1.6-3.3); Non-African American GFR(CKD) 81.4 (60.0-200.0); Potassium 4.5 mmol/L (3.5-5.5); Total Bilirubin 0.4 mg/dL (0.30-1.20); Total Protein 6.2 g/dL (6.2-8.2)
--- NOTE | 2021-12-15 10:28 | P.PN ---
Subjective This is a pleasant 60-year-old male past medical history significant for coronary artery disease status post prior PCI in the RCA 12/2018 and mid RCA 10/2020, hypertension, dyslipidemia, known intermediate disease involving the LAD, chronic nicotine dependence, COPD. He follows in the office with Dr. De Luna. We have been asked to see in consultation for chest pain. He underwent further investigation including EKG showing sinus rhythm was no significant ST or T-wave abnormalities and also he underwent a chest x-ray showed no acute abnormalities as well as cardiac enzymes came in to be unremarkable but currently is chest pain-free. Hemodynamically he is stable. He is known to have coronary artery disease and he underwent a heart catheterization in November 2020 year ago and that revealed patent stent in the right coronary artery was evidence of coronary vasospasm and sensation he was started on oral nitrate with improvement in the chest discomfort. Patient seen at bedside, no acute distress. He denies any chest discomfort currently. Plan for exercise stress test today. Blood pressure 119/70, heart rate 73, afebrile, oxygen saturations 97% on room air. Acute coronary syndrome has been ruled out. GENERAL: Well-appearing, well-nourished and in no acute distress. NECK: Supple without JVD or thyromegaly. LUNGS: Breath sounds clear to auscultation bilaterally. Respiration equal and unlabored. No wheezes, rales or rhonchi. HEART: Regular rate and rhythm without murmurs, rubs or gallops. S1 and S2 heard. EXTREMITIES: Normal range of motion, no edema. No clubbing or cyanosis. Peripheral pulses intact. ASSESSMENT Intermittent episodes of chest discomfort Known CAD with prior stenting of the RCA in 2018 and 10/2020 Known coronary vasospasm Hypertension Dyslipidemia COPD Former tobacco use Former alcohol use Former illicit drug use PLAN An acute coronary event has been ruled out with no EKG evidence of ischemia and negative cardiac enzymes. Perform Exercise stress test to assess for stress induced cardiac ischemia. If abnormal will consider coronary angiography. A stress test with no stress induced ischemia, no further inpatient workup from a cardiology perspective. Recommend patient to follow up with Dr. De Luna in the office Nurse Practitioner note has been reviewed, I agree with a documented findings and plan of care. Patient was seen and examined. Objective - Vital Signs Vital signs: Vital Signs Temp 98.1 F 12/15/21 02:31 Pulse 70 12/15/21 07:45 Resp 19 12/15/21 02:31 BP 111/67 12/15/21 02:31 Pulse Ox 96 12/15/21 02:31 FiO2 Intake & Output 12/14/21 12/15/21 12/15/21 18:59 06:59 18:59 Intake Total 737 0 Balance 737 0 Weight 95.254 kg Intake: Oral 737 0 Other: Voiding Method Toilet # Voids 2 2 - Labs CBC & Chem 7: 12/15/21 05:33 12/15/21 05:33
[2021-12-15] MEDS: ISOSORBIDE MONONITRATE ER 60 MG TAB.ER.24H PO SCH (12:46)
[2021-12-15] MEDS: METOPROLOL SUCCINATE (ER) 50 MG TAB.ER.24H PO SCH (12:46)
[2021-12-15] MEDS: NITROGLYCERIN SL TABS 0.4 MG TAB SUBLINGUAL PRN (16:28)
--- NOTE | 2021-12-15 18:03 | P.PN ---
Subjective Progress Note Date: 12/15/21 Marcel Jo, is a 61-year-old male who presented to [facility] emergency room with a chief complaint of episodes of chest pain He was evaluated in the emergency room vital examination on presentation revealed a temperature of 98 pulse 88 respirations 16 blood pressure 127/85 pulse ox 97% on room air Laboratory data revealed a white blood count of 10.3 hemoglobin 14.2 platelet count 214 sodium 138 potassium 3.8 chloride 104 CO2 21 BUN 20 creatinine 1.0 Testing in the emergency room revealed EKG done in the emergency room revealed sinus rhythm with borderline left axis deviation, chest x-ray did not reveal any acute abnormality Patient was admitted to medical floor for further evaluation and treatment Past medical history is significant for history of coronary artery disease with previous history of cardiac catheterization with angioplasty and stent placement to the RCA, history of hypertension, history of hyperlipidemia, previous history of myocardial infarction, previous history of cardiac arrest requiring intubation and mechanical ventilation, history of osteoarthritis with bilateral total knee arthroplasty, history of hernia repair On 12/14/2021 patient was seen and examined on the medical is alert and oriented 3 in no apparent distress there is no fever or chills no headache or dizziness no chest pain no shortness of breath no cough no nausea or vomiting no abdominal pain no diarrhea no blood stools no burning with urination no frequency or urgency and no hematuria. Patient underwent a stress test today, unfortunately results are not available Unfortunately there is no clearance from cardiology in the chart Information in that regard given to patient he was given a choice of being discharged home or waiting for his test results and clearance from cardiology he opted to stay and wait for stress test results and cardiology clearance Objective - Vital Signs Vital signs: Vital Signs Temp 97.7 F 12/15/21 15:00 Pulse 77 12/15/21 16:49 Resp 17 12/15/21 15:00 BP 131/87 12/15/21 16:49 Pulse Ox 97 12/15/21 16:49 FiO2 Intake & Output 12/14/21 12/15/21 12/15/21 18:59 06:59 18:59 Intake Total 737 0 473 Balance 737 0 473 Weight 95.254 kg Intake: Oral 737 0 473 Other: Voiding Method Toilet # Voids 2 2 2 # Bowel Movements 2 - Exam In general patient is alert and oriented x 3 in no distress HEENT head normocephalic and atraumatic Neck is supple no JVD no goiter no lymphadenopathy no carotid bruit Chest examination is clear to auscultation no crackles no wheezing Cardiac exam reveals regular heart sounds S1 and S2 no gallops no murmurs Abdomen is soft nontender no organomegaly with normal bowel sounds Extremity exam reveals no edema no cyanosis or clubbing Neurological examination reveals no gross focal deficits - Labs CBC & Chem 7: 12/15/21 05:33 12/15/21 05:33 Labs: Abnormal Lab Results - Last 24 Hours (Table) 12/15/21 Range/Units 05:33 Anion Gap 9.30 L (10.00-18.00) mmol/L Assessment and Plan Plan: Episodes of chest pain Underlying history of coronary artery disease with previous history of angioplasty and stent placement to the RCA Underlying history of hypertension Underlying history of hyperlipidemia Underlying history of osteoarthritis Underlying history of COPD Previous history of smoking patient quit in 2019 At this time patient is admitted to telemetry floor He is chest pain-free Home medications reviewed and reordered Troponin level negative so far Cardiology consultation requested will follow closely At this time I am waiting for stress test result and cardiology clearance for discharge
--- NOTE | 2021-12-15 18:06 | CA ---
Exercise Stress Test Report Name: Marcel Jo Exam Date: 12/15/2021 11:43 Exam Location: [place] Stress Ht (in): 68 Wt (lb): 210 BSA: 2.09 Ordering Phys: Idris De Luna MD Referring Phys: CAROL, Technologist: Francesco Leon Age: 61 Gender: M : 1960 Procedure CPT: Indications: CP ICD-10 Codes: Patient History: Medications: SEE CHART Meds past 24 hrs: Pretest Chest Pain: STRESS TEST Mac Protocol Exercise Duration (min:sec): 05:[address] Depressions (mm): Angina Score: Weber Score: Resting HR (bpm): 61 Peak HR (bpm): 140 Resting BP (mmHg): 116 / 91 Peak BP (mmHg): 173 / 86 MPHR: 160 Target HR: 136 % MPHR: 88 METS: 7.1 Total Dose: Peak Dose: Atropine: Double Product: 74834 BP Response: Stress Termination: Reached target heart rate Stress Symptoms: CHEST PAIN PATIENT GOT VERTIGO Stress Summary: ECG ANALYSIS Resting ECG: Normal sinus rhythm PVCs Stress ECG: No significant ST segment depression CONCLUSIONS Limited exercise tolerance Negative stress test by EKG criteria Patient had chest discomfort and dizziness at peak exercise Dr. Minh Jones MD (Electronically Signed) Final Date: 15 December 2021 18:05
[2021-12-15] MEDS: ATORVASTATIN 80 MG TAB PO SCH (20:41)
[2021-12-15] MEDS: MONTELUKAST 10 MG TAB PO SCH (20:42)
[2021-12-16] MEDS ORDERED: AMINOPHYLLINE 500 MG/20 ML VIAL IV PRN (07:55)
[2021-12-16] MEDS ORDERED: CAFFEINE CITRATE 60 MG/3 ML VIAL IV PRN (07:55)
[2021-12-16] MEDS ORDERED: REGADENOSON 0.4 MG/5 ML SYRINGE IV PRN (07:55)
[2021-12-16] MEDS: BUDESONIDE 1 MG/2 ML NEBU INHALATION SCH ×2 (08:09→19:27)
[2021-12-16] MEDS: IPRATROPIUM-ALBUTEROL 3 ML NEB INHALATION PRN ×2 (08:09→11:16)
--- NOTE | 2021-12-16 09:22 | P.PN ---
Subjective This is a pleasant 60-year-old male past medical history significant for coronary artery disease status post prior PCI in the RCA 12/2018 and mid RCA 10/2020, hypertension, dyslipidemia, known intermediate disease involving the LAD, chronic nicotine dependence, COPD. He follows in the office with Dr. De Luna. We have been asked to see in consultation for chest pain. He underwent further investigation including EKG showing sinus rhythm was no significant ST or T-wave abnormalities and also he underwent a chest x-ray showed no acute abnormalities as well as cardiac enzymes came in to be unremarkable but currently is chest pain-free. Hemodynamically he is stable. He is known to have coronary artery disease and he underwent a heart catheterization in November 2020 year ago and that revealed patent stent in the right coronary artery was evidence of coronary vasospasm and sensation he was started on oral nitrate with improvement in the chest discomfort. 12/16 Patient underwent exercise stress test yesterday, which was negative by EKG andre samson. Patient did have some lightheadedness/dizziness and chest discomfort at peak exercise. Able to exercise for 5minutes. Patient seen at bedside, no acute distress. He had an episode of left sided chest discomfort overnight, with some left arm numbness. He did have some relief with sublingual nitro. He state he was resting in bed when it occurred. He has been ambulating the halls frequently, no chest pain or shortness of breath. Blood pressure 115/66, heart rate 68, afebrile, saturations 97% on room air GENERAL: Well-appearing, well-nourished and in no acute distress. NECK: Supple without JVD or thyromegaly. LUNGS: Breath sounds clear to auscultation bilaterally. Respiration equal and unlabored. No wheezes, rales or rhonchi. HEART: Regular rate and rhythm without murmurs, rubs or gallops. S1 and S2 heard. EXTREMITIES: Normal range of motion, no edema. No clubbing or cyanosis. P eripheral pulses intact. ASSESSMENT Intermittent episodes of chest discomfort Known CAD with prior stenting of the RCA in 2018 and 10/2020 Known coronary vasospasm Hypertension Dyslipidemia COPD Former tobacco use Former alcohol use Former illicit drug use PLAN Patient with some intermittent chest discomfort at rest overnight, Exercise stress test was negative, however, patient did have some chest discomfort and dizziness at peak exercise. An acute coronary event has been ruled out with no EKG evidence of ischemia and negative cardiac enzymes. Perform Lexiscan stress test to assess for stress induced cardiac ischemia. If abnormal will consider coronary angiography. If lexiscan stress test with no stress induced ischemia, no further inpatient workup from a cardiology perspective. Recommend patient to follow up with Dr. De Luna in the office Nurse Practitioner note has been reviewed, I agree with a documented findings and plan of care. Patient was seen and examined. Objective - Vital Signs Vital signs: Vital Signs Temp 97.5 F L 12/16/21 00:19 Pulse 72 12/16/21 00:19 Resp 16 12/16/21 00:19 BP 109/71 12/16/21 00:19 Pulse Ox 96 12/16/21 00:19 FiO2 Intake & Output 12/15/21 12/16/21 12/16/21 18:59 06:59 18:59 Intake Total 473 Balance 473 Intake: Oral 473 Other: Voiding Method Toilet # Voids 2 2 # Bowel Movements 2 - Labs CBC & Chem 7: 12/15/21 05:33 12/15/21 05:33 Labs: Abnormal Lab Results - Last 24 Hours (Table) 12/15/21 Range/Units 05:33 Anion Gap 9.30 L (10.00-18.00) mmol/L
[2021-12-16] MEDS: FAMOTIDINE 20 MG TAB PO SCH ×2 (11:10→20:32)
[2021-12-16] MEDS: ISOSORBIDE MONONITRATE ER 60 MG TAB.ER.24H PO SCH (11:10)
[2021-12-16] MEDS: hydroCHLOROthiazide 12.5 MG CAP PO SCH (11:10)
[2021-12-16] MEDS: METOPROLOL SUCCINATE (ER) 50 MG TAB.ER.24H PO SCH (11:10)
[2021-12-16] MEDS: CLOPIDOGREL 75 MG TAB PO SCH (11:10)
[2021-12-16] MEDS: ASPIRIN 81 MG PO SCH (11:10)
--- NOTE | 2021-12-16 11:12 | CA ---
Lexiscan Nuclear Stress Test Report Name: Marcel Jo Exam Date: 12/16/2021 09:54 Exam Location: [place] Stress Ht (in): 68 Wt (lb): 210 BSA: 2.09 Ordering Phys: Whitney Montano Referring Phys: Jacqueline, Technologist: Francesco Leon Age: 61 Gender: M : 1960 Procedure CPT: Indications: Reflex order-Stress test ICD-10 Codes: Patient History: Medications: SEE CHART/LIST Meds past 24 hrs: Pretest Chest Pain: STRESS TEST Lexiscan Protocol Exercise Duration (min:sec): 02:[address] Depressions (mm): Angina Score: Weber Score: Resting HR (bpm): 61 Peak HR (bpm): 95 Resting BP (mmHg): 114 / 87 Peak BP (mmHg): 127 / 89 MPHR: 160 Target HR: 136 % MPHR: 59 METS: 1.0 Total Dose: Peak Dose: Atropine: Double Product: 48959 BP Response: Stress Termination: PROTOCOL COMPLETE Stress Symptoms: NO SYMPTOMS Stress Summary: ECG ANALYSIS Resting ECG: Normal sinus rhythm normal lites normal intervals Stress ECG: Negative stress test by EKG criteria CONCLUSIONS Negative stress test by EKG criteria cardial lead portion of the stress test will be reported separately Dr. Minh Jones MD (Electronically Signed) Final Date: 16 December 2021 11:11
--- NOTE | 2021-12-16 11:49 | NM ---
EXAMINATION TYPE: NM stress lexiscan cardiolite DATE OF EXAM: 12/16/2021 COMPARISON: Previous exam 11/29/2019 HISTORY: Chest pain TECHNIQUE: After the intravenous administration of 9.6 mCi Tc 99m Sestamibi - Cardiolite resting SPE CT images acquired 45 minutes post injection. The patient received 0.4mg Lexiscan, 24.6 mCi Tc 99m Sestamibi - Stress images obtained [address] injection FINDINGS: Review of stress and rest SPECT images demonstrates decreased uptake along the inferior wall the left ventricle on stress as compared to rest images towards the apex, there is mild decreased uptake in a similar distribution on both stress and rest images. Gated analysis shows normal wall motion with an estimated left ventricular ejection fraction of 46 %. IMPRESSION: Findings consistent with periinfarct, pharmacologically-induced left ventricular myocardial ischemia.
[2021-12-16] MEDS ORDERED: ALPRAZolam 0.25 MG TAB PO PRN (13:17)
[2021-12-16] MEDS ORDERED: ALPRAZolam 0.5 MG TAB PO PRN (13:17)
--- NOTE | 2021-12-16 19:17 | P.PN ---
Subjective Progress Note Date: 12/16/21 Marcel Jo, is a 61-year-old male who presented to [facility] emergency room with a chief complaint of episodes of chest pain He was evaluated in the emergency room vital examination on presentation revealed a temperature of 98 pulse 88 respirations 16 blood pressure 127/85 pulse ox 97% on room air Laboratory data revealed a white blood count of 10.3 hemoglobin 14.2 platelet count 214 sodium 138 potassium 3.8 chloride 104 CO2 21 BUN 20 creatinine 1.0 Testing in the emergency room revealed EKG done in the emergency room revealed sinus rhythm with borderline left axis deviation, chest x-ray did not reveal any acute abnormality Patient was admitted to medical floor for further evaluation and treatment Past medical history is significant for history of coronary artery disease with previous history of cardiac catheterization with angioplasty and stent placement to the RCA, history of hypertension, history of hyperlipidemia, previous history of myocardial infarction, previous history of cardiac arrest requiring intubation and mechanical ventilation, history of osteoarthritis with bilateral total knee arthroplasty, history of hernia repair On 12/15/2021 patient was seen and examined on the medical is alert and oriented 3 in no apparent distress there is no fever or chills no headache or dizziness no chest pain no shortness of breath no cough no nausea or vomiting no abdominal pain no diarrhea no blood stools no burning with urination no frequency or urgency and no hematuria. Patient underwent a stress test today, unfortunately results are not available Unfortunately there is no clearance from cardiology in the chart Information in that regard given to patient he was given a choice of being discharged home or waiting for his test results and clearance from cardiology he opted to stay and wait for stress test results and cardiology clearance On 12/16/2021 patient was seen and examined on to telemetry floor events were noted stress test from yesterday and today were reviewed patient is scheduled for cardiac catheterization tomorrow Objective - Vital Signs Vital signs: Vital Signs Temp 97.6 F 12/16/21 13:45 Pulse 82 12/16/21 13:45 Resp 16 12/16/21 13:45 BP 131/89 12/16/21 13:45 Pulse Ox 96 12/16/21 13:45 FiO2 Intake & Output 12/15/21 12/16/21 12/16/21 18:59 06:59 18:59 Intake Total 473 360 Balance 473 360 Intake: Oral 473 360 Other: Voiding Method Toilet # Voids 2 2 3 # Bowel Movements 2 - Exam In general patient is alert and oriented x 3 in no distress HEENT head normocephalic and atraumatic Neck is supple no JVD no goiter no lymphadenopathy no carotid bruit Chest examination is clear to auscultation no crackles no wheezing Cardiac exam reveals regular heart sounds S1 and S2 no gallops no murmurs Abdomen is soft nontender no organomegaly with normal bowel sounds Extremity exam reveals no edema no cyanosis or clubbing Neurological examination reveals no gross focal deficits - Labs CBC & Chem 7: 12/15/21 05:33 12/15/21 05:33 Assessment and Plan Plan: Episodes of chest pain Underlying history of coronary artery disease with previous history of ang ioplasty and stent placement to the RCA Underlying history of hypertension Underlying history of hyperlipidemia Underlying history of osteoarthritis Underlying history of COPD Previous history of smoking patient quit in 2019 At this time patient is admitted to telemetry floor He is chest pain-free Home medications reviewed and reordered Troponin level negative so far Cardiology consultation requested will follow closely At this time I am waiting for stress test result and cardiology clearance for discharge
[2021-12-16] MEDS: ATORVASTATIN 80 MG TAB PO SCH (20:32)
[2021-12-16] MEDS: MONTELUKAST 10 MG TAB PO SCH (20:32)
[2021-12-17] MEDS: SODIUM CHLORIDE 0.9% 1,000 ML in EMPTY BAG 1 BAG IV SCH ×3 (00:53→20:24)
[2021-12-17] MEDS: FAMOTIDINE 20 MG TAB PO SCH ×2 (05:31→20:23)
[2021-12-17] MEDS: ASPIRIN 81 MG PO SCH (05:31)
[2021-12-17] MEDS: CLOPIDOGREL 75 MG TAB PO SCH (05:31)
[2021-12-17] MEDS ORDERED: HEPARIN SODIUM,PORCINE 2,500 UNIT in SODIUM CHLORIDE 0.9% 250 ML IRRIGATION PRN (07:00)
[2021-12-17] MEDS ORDERED: HEPARIN SODIUM,PORCINE 10,000 UNIT in SODIUM CHLORIDE 0.9% 1,000 ML IRRIGATION PRN (07:00)
[2021-12-17] MEDS: ISOSORBIDE MONONITRATE ER 60 MG TAB.ER.24H PO SCH (07:23)
[2021-12-17] MEDS: hydroCHLOROthiazide 12.5 MG CAP PO SCH (07:23)
[2021-12-17] MEDS: METOPROLOL SUCCINATE (ER) 50 MG TAB.ER.24H PO SCH (07:23)
[2021-12-17] MEDS: BUDESONIDE 1 MG/2 ML NEBU INHALATION SCH ×2 (07:37→19:47)
[2021-12-17] MEDS: IPRATROPIUM-ALBUTEROL 3 ML NEB INHALATION PRN ×2 (07:37→19:47)
[2021-12-17 09:15] LABS: African American GFR (CKD) 107.2 (60.0-200.0); Albumin/Globulin Ratio 1.82 (1.60-3.17); Anion Gap 7.3 mmol/L (10.00-18.00); BUN/Creat Ratio 16.11 Ratio (12.00-20.00); Blood Urea Nitrogen 14.5 mg/dL (9.0-27.0); Calcium 9.1 mg/dL (8.7-10.3); Carbon Dioxide 24.7 mmol/L (20.0-27.5); Globulin 2.2 g/dL (1.6-3.3); Non-African American GFR(CKD) 92.5 (60.0-200.0); Potassium 4.4 mmol/L (3.5-5.5); Total Bilirubin 0.5 mg/dL (0.30-1.20); Total Protein 6.2 g/dL (6.2-8.2)
[2021-12-17 09:16] LABS: Basophils # (A) 0.09 X 10*3/uL (0.00-0.10); Eosinophils # (A) 0.21 X 10*3/uL (0.04-0.35); Eosinophils % (A) 2.4 %; HCT 41.4 % (39.6-50.0); HGB 14.1 g/dL (13.0-17.0); Immature Grans, Automated 0.3 %; Lymphocytes # (A) 2.78 X 10*3/uL (0.90-5.00); Lymphocytes % (A) 31.1 %; MCH 29.4 pg (27.0-32.0); MCHC 34.1 g/dL (32.0-37.0); MCV 86.3 fL (80.0-97.0); Mean Platelet Volume 11.1 fL (9.5-12.2); Monocytes # (A) 0.67 X 10*3/uL (0.20-1.00); Monocytes % (A) 7.5 %; NRBC Per 100 WBC 0 /100 WBCS (0.0-0.0); Neutrophils # (A) 5.15 X 10*3/uL (1.80-7.70); Neutrophils % (A) 57.7 %; Platelet Count 232 X 10*3/uL (140-440); RDW 13.4 % (11.5-14.5); WBC 8.93 X 10*3/uL (4.50-10.00)
[2021-12-17] MEDS ORDERED: HEPARIN SODIUM 1,000 UN/ML (10ML VL) ONE ×2 (11:52→13:03)
[2021-12-17] MEDS ORDERED: VERAPAMIL 2.5 MG/ML 2 ML AMP ONE (11:52)
[2021-12-17] MEDS ORDERED: IV FLUID CONTINUATION 1,000 ML IV ONE (11:58)
--- NOTE | 2021-12-17 12:29 | P.PN ---
Subjective Progress Note Date: 12/17/21 Marcel Jo, is a 61-year-old male who presented to [facility] emergency room with a chief complaint of episodes of chest pain He was evaluated in the emergency room vital examination on presentation revealed a temperature of 98 pulse 88 respirations 16 blood pressure 127/85 pulse ox 97% on room air Laboratory data revealed a white blood count of 10.3 hemoglobin 14.2 platelet count 214 sodium 138 potassium 3.8 chloride 104 CO2 21 BUN 20 creatinine 1.0 Testing in the emergency room revealed EKG done in the emergency room revealed sinus rhythm with borderline left axis deviation, chest x-ray did not reveal any acute abnormality Patient was admitted to medical floor for further evaluation and treatment Past medical history is significant for history of coronary artery disease with previous history of cardiac catheterization with angioplasty and stent placement to the RCA, history of hypertension, history of hyperlipidemia, previous history of myocardial infarction, previous history of cardiac arrest requiring intubation and mechanical ventilation, history of osteoarthritis with bilateral total knee arthroplasty, history of hernia repair On 12/15/2021 patient was seen and examined on the medical is alert and oriented 3 in no apparent distress there is no fever or chills no headache or dizziness no chest pain no shortness of breath no cough no nausea or vomiting no abdominal pain no diarrhea no blood stools no burning with urination no frequency or urgency and no hematuria. Patient underwent a stress test today, unfortunately results are not available Unfortunately there is no clearance from cardiology in the chart Information in that regard given to patient he was given a choice of being discharged home or waiting for his test results and clearance from cardiology he opted to stay and wait for stress test results and cardiology clearance On 12/16/2021 patient was seen and examined on to telemetry floor events were noted stress test from yesterday and today were reviewed patient is scheduled for cardiac catheterization tomorrow On 12/17/2021 patient is alert and oriented 3. Patient reports one episode of chest discomfort tonight. Patient undergoing cardiac catheterization this a.m. this time patient denies chest pain or shortness breath. Patient denies nausea vomiting or diarrhea. Patient denies any urinary burning or frequency Objective - Vital Signs Vital signs: Vital Signs Temp 97.7 F 12/17/21 11:38 Pulse 66 12/17/21 11:38 Resp 16 12/17/21 11:38 BP 111/66 12/17/21 11:38 Pulse Ox 98 12/17/21 11:38 FiO2 Intake & Output 12/16/21 12/17/21 12/17/21 18:59 06:59 18:59 Intake Total 720 Balance 720 Intake: Oral 720 Other: Voiding Method Toilet Toilet # Voids 2 2 - Exam In general patient is alert and oriented x 3 in no distress HEENT head normocephalic and atraumatic Neck is supple no JVD no goiter no lymphadenopathy no carotid bruit Chest examination is clear to auscultation no crackles no wheezing Cardiac exam reveals regular heart sounds S1 and S2 no gallops no murmurs Abdomen is soft nontender no organomegaly with normal bowel sounds Extremity exam reveals no edema no cyanosis or clubbing Neurological examination reveals no gross focal deficits - Labs CBC & Chem 7: 12/17/21 05:41 12/17/21 05:41 Labs: Abnormal Lab Results - Last 24 Hours (Table) 12/17/21 Range/Units 05:41 Anion Gap 7.30 L (10.00-18.00) mmol/L Assessment and Plan Plan: Episodes of chest pain Underlying history of coronary artery disease with previous history of angioplasty and stent placement to the RCA Underlying history of hypertension Underlying history of hyperlipidemia Underlying history of osteoarthritis Underlying history of COPD Previous history of smoking patient quit in 2019 At this time patient is admitted to telemetry floor He is chest pain-free Home medications reviewed and reordered Troponin level negative so far Cardiology consultation requested will follow closely Cardiac catheterization to be completed today 12/17/2021
[2021-12-17] MEDS ORDERED: MIDAZOLAM 2 MG/2 ML VIAL IVP ONE (12:48)
[2021-12-17] MEDS ORDERED: LIDOCAINE 1% INJ 10MG/ML (5 ML VIAL-PF) SQ ONE (12:49)
[2021-12-17] MEDS ORDERED: VERAPAMIL SYRINGE (5 MG/10 ML) INTRAARTER ONE (12:51)
[2021-12-17] MEDS: HEPARIN SODIUM 1,000 UN/ML (10ML VL) IVP ONE ×2 (12:51→13:05)
[2021-12-17] MEDS ORDERED: HEPARIN SODIUM 1,000 UN/ML (10ML VL) IVP ONE (13:05)
[2021-12-17] MEDS ORDERED: HYDROmorphone 0.5 MG/0.5 ML SYRINGE IVP ONE ×2 (13:18→13:29)
[2021-12-17] MEDS ORDERED: niCARdipine 25 MG/10 ML VIAL ONE (13:20)
[2021-12-17] MEDS ORDERED: NITROGLYCERIN 1000MCG/10ML SYRINGE INTRACORON ONE (13:32)
[2021-12-17] MEDS ORDERED: CLOPIDOGREL 75 MG TAB ONE (13:33)
[2021-12-17] MEDS ORDERED: IOPAMIDOL-370 125ML BTL INJ ONE (13:39)
[2021-12-17] MEDS ORDERED: CLOPIDOGREL 75 MG TAB PO ONE (13:39)
[2021-12-17] MEDS ORDERED: ZOLPIDEM 5 MG TAB PO PRN (13:41)
[2021-12-17] MEDS ORDERED: RX INFO: IV CONTRAST WAS GIVEN 1 EACH MISC MISCELLANE PRN (13:41)
[2021-12-17] MEDS ORDERED: ATROPINE SULFATE 0.1 MG/ML 10ML SYRINGE IV PRN (13:41)
[2021-12-17] MEDS ORDERED: NITROGLYCERIN SL TABS 0.4 MG TAB SUBLINGUAL PRN (13:41)
[2021-12-17] MEDS ORDERED: MAG HYDROX/AL HYDROX/SIMETH 30 ML CUP PO PRN (13:41)
[2021-12-17] MEDS ORDERED: SODIUM CHLORIDE 0.9% 1,000 ML in EMPTY BAG 1 BAG IV SCH (13:45)
--- NOTE | 2021-12-17 13:48 | P.PCN ---
Date of Procedure: 12/17/21 Operative Findings: CARDIAC CATHETERIZATION AND PERCUTANEOUS CORONARY INTERVENTION PERFORMING PHYSICIAN: Idris De Luna MD, [facility] PROCEDURE PERFORMED: 1. Selective right and left coronary angiogram 2. Successful stenting of mid LAD using 4.0 x 23 mm Xience FLAKO which with an excellent angiographic results 3. iFR of the LAD was performed INDICATION: This is a 61-year-old gentleman was known coronary artery disease and prior stenting of the RCA and known intermediate lesion involving the LAD presented to the hospital with a chest discomfort. He underwent a stress test and that came in to be abnormal showing ischemia. In the light of that a heart catheterization was advised COMPLICATION: None APPROACH: Right radial artery LEVEL OF SEDATION: Moderate with the sedation time off 57 minutes PROCEDURE DESCRIPTION: After obtaining an informed consent the patient was brought to the cardiac tin can laborer. The right radial artery was cannulated using macro puncture technique, the micropuncture wire passed easily then I placed a 6-Japanese sheath. I gave the patient 2 mg of verapamil intra-arterial and initially 6000 as of heparin IV. Additional 6000 units given during the intervention on the LAD. After that I did selective right and left coronary angiogram using JR4 and JL 3.5 catheters. After that I did FFR of the LAD and then stenting of the LAD. The procedure was completed without any complication SELECTIVE CORONARY ANGIOGRAM: The right coronary artery: Large caliber vessel and a dominant vessel. The stent in the mid RCA is patent. Left main: Large caliber vessel. Its angiographically normal. Bifurcates into the LCx and LAD The left circumflex: Large caliber vessel nondominant vessel. The LCx proximally has a lesion appeared to be in the range of 30-40%. After that appeared to be angiographically normal. The left anterior descending artery: Large caliber vessel. The proximal LAD appeared to be angiographically normal. The mid LAD by the bifurcation of the large first and second diagonal branches appeared to have a lesion in the range of 60%. FFR was performed and came in to be ischemic. Subsequently we did perform stenting on the LAD PCI OF THE LAD: Initially FFR of the LAD was performed. After zeroing the Doppler wire and equal lysing between the Doppler wire and the guiding catheter which was JL 3.5 guiding catheter we did an iFR and that came in to be ischemic an 0.87. After that I did place a bee wire in the LAD using a run-through wire. I did balloon angioplasty using 3.0 x 15 mm balloon before I deployed a 4.0 x 23 mm stent were the stent was positioned under fluoroscopy guidance and deployed under 14 martin for 20 seconds. Posterior dictation using 4.5 mm balloon was performed. The balloon was not compliant balloon. The final angiogram showed an excellent angiographic results and the procedure was completed without any complication CONCLUSION: Patent stent in the mid right coronary artery Intermediate lesion involving the mid LAD. iFR was ischemic. I did perform successful stenting of the mid LAD POSTPROCEDURE MANAGEMENT: #1 dual antiplatelet therapy using aspirin and Plavix for at least 6 month and peripherally twelve-month #2 aggressive cholesterol control #3 follow-up with the patient
[2021-12-17] MEDS: ATORVASTATIN 80 MG TAB PO SCH (20:23)
[2021-12-17] MEDS: MONTELUKAST 10 MG TAB PO SCH (20:23)
[2021-12-17] MEDS: ACETAMINOPHEN TAB 325 MG TAB PO PRN (23:05)
[2021-12-18] MEDS: NITROGLYCERIN SL TABS 0.4 MG TAB SUBLINGUAL PRN ×4 (01:17→04:37)
[2021-12-18] MEDS: IPRATROPIUM-ALBUTEROL 3 ML NEB INHALATION PRN (08:03)
[2021-12-18] MEDS: BUDESONIDE 1 MG/2 ML NEBU INHALATION SCH (08:03)
[2021-12-18 08:31] VITALS: BP 109/67; PULSE 63; TEMP 97.5
[2021-12-18 09:08] LABS: Basophils # (A) 0.07 X 10*3/uL (0.00-0.10); Basophils % (A) 0.8 %; Eosinophils % (A) 2.3 %; HCT 42.5 % (39.6-50.0); HGB 14.5 g/dL (13.0-17.0); Immature Grans, Automated 0.5 %; Lymphocytes # (A) 2.48 X 10*3/uL (0.90-5.00); Lymphocytes % (A) 28.3 %; MCH 29.7 pg (27.0-32.0); MCHC 34.1 g/dL (32.0-37.0); MCV 86.9 fL (80.0-97.0); Mean Platelet Volume 11.4 fL (9.5-12.2); Monocytes # (A) 0.63 X 10*3/uL (0.20-1.00); Monocytes % (A) 7.2 %; NRBC Per 100 WBC 0 /100 WBCS (0.0-0.0); Neutrophils # (A) 5.35 X 10*3/uL (1.80-7.70); Neutrophils % (A) 60.9 %; Platelet Count 225 X 10*3/uL (140-440); RBC 4.89 X 10*6/uL (4.40-5.60); RDW 13.3 % (11.5-14.5); WBC 8.77 X 10*3/uL (4.50-10.00)
--- NOTE | 2021-12-18 09:11 | P.PN ---
Subjective This is a pleasant 60-year-old male past medical history significant for coronary artery disease status post prior PCI in the RCA 12/2018 and mid RCA 10/2020, hypertension, dyslipidemia, known intermediate disease involving the LAD, chronic nicotine dependence, COPD. He follows in the office with Dr. De Luna. We have been asked to see in consultation for chest pain. He underwent further investigation including EKG showing sinus rhythm was no significant ST or T-wave abnormalities and also he underwent a chest x-ray showed no acute abnormalities as well as cardiac enzymes came in to be unremarkable but currently is chest pain-free. Hemodynamically he is stable. He is known to have coronary artery disease and he underwent a heart catheterization in November 2020 year ago and that revealed patent stent in the right coronary artery was evidence of coronary vasospasm and sensation he was started on oral nitrate with improvement in the chest discomfort. 12/16 Patient underwent exercise stress test yesterday, which was negative by EKG andre samson. Patient did have some lightheadedness/dizziness and chest discomfort at peak exercise. Able to exercise for 5minutes. Patient seen at bedside, no acute distress. He had an episode of left sided chest discomfort overnight, with some left arm numbness. He did have some relief with sublingual nitro. He state he was resting in bed when it occurred. He has been ambulating the halls frequently, no chest pain or shortness of breath. Blood pressure 115/66, heart rate 68, afebrile, saturations 97% on room air 12/17 Patient underwent cardiac catheterization with Dr. De Luna which revealed left cir cumflex proximally has a lesion appeared to be in the range of 3040 percent, mid LAD by the bifurcation of the large first and second diagonal branches appeared to have a lesion in the range of 60%. FFR was performed and came in to be ischemic. Patient underwent stenting on the LAD 12/18 Patient seen and examined at bedside, no acute distress. He denies any chest pain or shortness of breath this morning. Overnight patient had episodes of chest discomfort, EKGs were performed with no evidence of acute ischemia. Patient examined in the halls this morning with no chest pain or shortness of b reath. Blood pressure 109/67, heart rate 63, afebrile, saturation 96% on room air GENERAL: Well-appearing, well-nourished and in no acute distress. NECK: Supple without JVD or thyromegaly. LUNGS: Breath sounds clear to auscultation bilaterally. Respiration equal and unlabored. No wheezes, rales or rhonchi. HEART: Regular rate and rhythm without murmurs, rubs or gallops. S1 and S2 heard. EXTREMITIES: Normal range of motion, no edema. No clubbing or cyanosis. Peripheral pulses intact. SKIN: Right radial cath site, clean, dry, 2+ peripheral pulses. No hematoma, mild tenderness ASSESSMENT Intermittent episodes of chest discomfort Known CAD with prior stenting of the RCA in 2019 and 10/2020 Known coronary vasospasm Hypertension Dyslipidemia COPD Former tobacco use Former alcohol use Former illicit drug use PLAN From cardiology perspective, increase activity as tolerated. Patient is cu rrently stable, chest pain-free no shortness of breath. Ok to discharge today and follow up with Dr. De Luna outpatient Continue dual antiplatelet therapy with aspirin and Plavix, continue high intensity statin, continue hydrochlorothiazide, Imdur, metoprolol succinate Patient has a follow up with Dr. De Luna on 12/31/2021 Nurse Practitioner note has been reviewed, I agree with a documented findings an d plan of care. Patient was seen and examined. Objective - Vital Signs Vital signs: Vital Signs Temp 97.5 F L 12/18/21 08:00 Pulse 76 12/18/21 08:19 Resp 16 12/18/21 08:00 BP 109/67 12/18/21 08:00 Pulse Ox 96 12/18/21 08:00 FiO2 Intake & Output 12/17/21 12/18/21 12/18/21 18:59 06:59 18:59 Intake Total 510 Balance 510 Intake: IV 150 Oral 360 Other: Voiding Method Toilet Toilet # Voids 2 2 # Bowel Movements 2 - Labs CBC & Chem 7: 12/17/21 05:41 12/17/21 05:41 Labs: Abnormal Lab Results - Last 24 Hours (Table) 12/17/21 Range/Units 05:41 Anion Gap 7.30 L (10.00-18.00) mmol/L
[2021-12-18 09:26] LABS: African American GFR (CKD) 112.5 (60.0-200.0); Albumin 4.1 g/dL (3.8-4.9); Albumin/Globulin Ratio 1.86 (1.60-3.17); Anion Gap 8.6 mmol/L (10.00-18.00); BUN/Creat Ratio 18.38 Ratio (12.00-20.00); Blood Urea Nitrogen 14.7 mg/dL (9.0-27.0); Carbon Dioxide 23.4 mmol/L (20.0-27.5); Globulin 2.2 g/dL (1.6-3.3); Non-African American GFR(CKD) 97.1 (60.0-200.0); Potassium 4.3 mmol/L (3.5-5.5); Total Bilirubin 0.6 mg/dL (0.30-1.20); Total Protein 6.3 g/dL (6.2-8.2)
[2021-12-18] MEDS: ISOSORBIDE MONONITRATE ER 60 MG TAB.ER.24H PO SCH (09:46)
[2021-12-18] MEDS: FAMOTIDINE 20 MG TAB PO SCH (09:46)
[2021-12-18] MEDS: CLOPIDOGREL 75 MG TAB PO SCH (09:46)
[2021-12-18] MEDS: METOPROLOL SUCCINATE (ER) 50 MG TAB.ER.24H PO SCH (09:46)
[2021-12-18] MEDS: hydroCHLOROthiazide 12.5 MG CAP PO SCH (09:46)
[2021-12-18] MEDS: ASPIRIN 81 MG PO SCH (09:46)
[2021-12-18] MEDS: SODIUM CHLORIDE 0.9% 1,000 ML in EMPTY BAG 1 BAG IV SCH (09:47)
[2021-12-18 11:35] VITALS: RESP 18
== END 2021-12-18 14:23 | disposition home or self-care (01) | DRG 247 ==
LOC: EC 19:06 → 6NMEDSUR 22:58 → OBSVTOIN 12-16 12:34
PROVIDERS: ADMIT Internal Medicine; ATTEND Internal Medicine
PROC: 4A033BC Measurement of Arterial Pressure, Coronary, Percutaneous Approach (ICD-10-PCS; 2021-12-17)
PROC: 0270346 Dilation of Coronary Artery, One Artery, Bifurcation, with Drug-eluting Intraluminal Device, Percutaneous Approach (ICD-10-PCS; principal; 2021-12-17 08:30)
PROC: B2111ZZ Fluoroscopy of Multiple Coronary Arteries using Low Osmolar Contrast (ICD-10-PCS; 2021-12-17 08:30)
PROC: 4A023N7 Measurement of Cardiac Sampling and Pressure, Left Heart, Percutaneous Approach (ICD-10-PCS; 2021-12-17 08:30)
DX: I25.111 Atherosclerotic heart disease of native coronary artery with angina pectoris with documented spasm (principal); I10 Essential (primary) hypertension; J44.9 Chronic obstructive pulmonary disease, unspecified; F10.21 Alcohol dependence, in remission; F19.11 Other psychoactive substance abuse, in remission; M19.90 Unspecified osteoarthritis, unspecified site; E78.5 Hyperlipidemia, unspecified; Z77.090 Contact with and (suspected) exposure to asbestos; Z96.653 Presence of artificial knee joint, bilateral; Z87.891 Personal history of nicotine dependence; Z86.74 Personal history of sudden cardiac arrest; Z95.5 Presence of coronary angioplasty implant and graft; Z79.82 Long term (current) use of aspirin; Z79.899 Other long term (current) drug therapy; Z79.02 Long term (current) use of antithrombotics/antiplatelets; Z79.51 Long term (current) use of inhaled steroids; Z88.8 Allergy status to other drugs, medicaments and biological substances; I25.2 Old myocardial infarction; Z82.49 Family history of ischemic heart disease and other diseases of the circulatory system; Z82.79 Family history of other congenital malformations, deformations and chromosomal abnormalities
CPT/HCPCS: 36415; 71046; 78452; 80053; 83735; 83880; 84484; 85025; 85610; 85730; 93005; 93017; 93454; 93799; 94640; 94760; 99285

== ENCOUNTER 2021-12-19 13:14 | Emergency (ER) | payer MEDICARE, OTHER ==
[2021-12-19 13:20] VITALS: BP 133/79; PULSE 78; RESP 20; TEMP 98.4
[2021-12-19] MEDS ORDERED: SULFAMETHOX-TMP 800-160MG 1 EACH TAB PO STA (15:03)
[2021-12-19] MEDS ORDERED: CEPHALEXIN 500 MG CAP PO STA (15:03)
--- NOTE | 2021-12-19 15:03 | ED ---
General Adult HPI - General Chief complaint: Skin/Abscess/Foreign Body Stated complaint: recheck-L hand issue(IV placement) Time Seen by Provider: 12/19/21 14:50 Source: patient, RN notes reviewed Mode of arrival: ambulatory Limitations: no limitations - History of Present Illness Initial comments: 7-year-old male presents to the emergency Department with complaints of redness and swelling to the left hand surrounding the area in which an IV had been removed. States IV was placed on December 16 and removed yesterday upon discharge. Reports redness began in the evening it has worsened throughout the day today. Complains of pain extending up into the left arm though there is no streaking or fever. Patient expresses concern for possible MRSA given his recent hospitalization. Denies any other complaints at this time. - Related Data Home Medications Medication Instructions Recorded Confirmed Metoprolol Succinate (ER) [Toprol 50 mg PO DAILY 10/30/20 12/13/21 XL] Montelukast [Singulair] 10 mg PO HS 11/23/20 12/13/21 Atorvastatin Calcium [Lipitor] 80 mg PO HS 03/25/21 12/13/21 Isosorbide Mononitrate ER [Imdur] 60 mg PO DAILY 03/25/21 12/13/21 Albuterol Nebulized [Ventolin 2.5 mg INHALATION RT-Q4H PRN 08/20/21 12/13/21 Nebulized] Albuterol Sulfate [Proair Hfa] 1 - 2 puff INHALATION RT-Q4H PRN 08/20/21 12/13/21 hydroCHLOROthiazide 12.5 mg PO DAILY 08/20/21 12/13/21 Aspirin EC [Ecotrin Low Dose] 81 mg PO DAILY 12/13/21 12/13/21 Famotidine [Pepcid] 20 mg PO BID 12/13/21 12/13/21 Previous Rx's Medication Instructions Recorded Clopidogrel [Plavix] 75 mg PO DAILY #30 tab 11/02/20 Nitroglycerin Sl Tabs [Nitrostat] 0.4 mg SL Q5M PRN #25 tab 11/30/20 Budesonide [Pulmicort] 1 mg INHALATION RT-BID ml 03/31/21 Ipratropium-Albuterol Nebulize 3 ml INHALATION RT-Q4H PRN ml 03/31/21 [Duoneb 0.5 mg-3 mg/3 ml Soln] Cephalexin [Keflex] 500 mg PO Q6HR 5 Days #20 cap 12/19/21 Sulfamethox-Tmp 800-160Mg [Bactrim 1 each PO Q12HR 5 Days #10 tab 12/19/21 Ds] Allergies Allergy/AdvReac Type Severity Reaction Status Date / Time levofloxacin [From Levaquin] AdvReac Nausea & Verified 12/19/21 13:20 Vomiting Review of Systems ROS Statement: Those systems with pertinent positive or pertinent negative responses have been documented in the HPI. ROS Other: All systems not noted in ROS Statement are negative. Past Medical History Past Medical History: Coronary Artery Disease (CAD), COPD, Hyperlipidemia, Hypertension, Myocardial Infarction (PA) Additional Past Medical History / Comment(s): Pt states he has hx of 3 respiratory arrests and was vented, generalized arthritis, Last Myocardial Infarction Date:: History of Any Multi-Drug Resistant Organisms: None Reported Past Surgical History: Adenoidectomy, Heart Catheterization With Stent, Hernia Repair, Joint Replacement, Orthopedic Surgery, Tonsillectomy Additional Past Surgical History / Comment(s): R inguinal hernia repair, L rotator cuff repair, bialteral total knee arthroplasties, R shoulder spur removal, teeth extracted, colonoscopy-normal. third hernia repair, left side, stents x2 2020 ear Past Anesthesia/Blood Transfusion Reactions: No Reported Reaction Date of Last Stent Placement:: 2018 Past Psychological History: No Psychological Hx Reported Smoking Status: Former smoker Past Alcohol Use History: Occasional Past Drug Use History: Marijuana - Past Family History Father Family Medical History: Cancer Additional Family Medical History / Comment(s): Father of lung cancer at the age of 62. He was a smoker. Mother Family Medical History: Cancer, Diabetes Mellitus, Hypertension Additional Family Medical History / Comment(s): Mother at age 78 from brainstem cancer. Brother(s) Additional Family Medical History / Comment(s): Patient's 1 brother with history of AAA. Patient has 4 sisters and he does not know any of their medical history. Patient's 1 son and 1 daughter living. He had one daughter that at 7 weeks old from a congenital heart. General Exam Limitations: no limitations (We'll developed, well-nourished male in no acute distress. Initial temperature 98.4, pulse 78, respirations 20, blood pressure 133/79, pulse ox 98% on room air.) General appearance: alert, in no apparent distress Respiratory exam: Present: normal lung sounds bilaterally. Absent: respiratory distress, wheezes, rales, rhonchi, stridor Cardiovascular Exam: Present: regular rate, normal rhythm, normal heart sounds. Absent: systolic murmur, diastolic murmur, rubs, gallop, clicks GI/Abdominal exam: Present: soft, normal bowel sounds. Absent: distended, tenderness, guarding, rebound, rigid Neurological exam: Present: alert, oriented X3, normal gait Psychiatric exam: Present: normal affect, normal mood Skin exam: Present: warm, dry, intact, erythema (Localized erythematous area approximately 3 cm x 5 cm on the dorsal surface of the left hand between the first and second metacarpals. Moderate amount of swelling extending to the first digit. ) Course Vital Signs 12/19/21 13:16 Temperature 98.4 F Pulse Rate 78 Respiratory 20 Rate Blood Pressure 133/79 O2 Sat by Pulse 98 Oximetry Medical Decision Making - Medical Decision Making This is a 61-year-old male suddenly hospitalized for CAD presenting to the emergency department for evaluation of erythema surrounding a discontinued IV site. On exam, patient is well-appearing and in no acute distress. He is afebrile and not tachycardic. He does have some localized erythema with surrounding swelling of the dorsal surface of the left hand. Patient is concerned about a "staph infection." Given his history and physical exam findings, it is likely that this is thrombo-phlebitis with surrounding cellulitis. Therefore patient will be treated with Keflex and Bactrim and instructed to follow up with his PCP for a recheck in 48 hours. Return parameters were discussed in detail. Patient verbalizes understanding and agrees with this plan. Attending: Gay. Disposition Clinical Impression: Cellulitis of hand, left Disposition: HOME SELF-CARE Condition: Stable Instructions (If sedation given, give patient instructions): Cellulitis (ED) Additional Instructions: You are being prescribed 2 antibiotics, one of which is specific to treat staph. Take antibiotics as directed. Make sure there is food in your stomach when you take the antibiotics. Follow-up with your PCP for a recheck in 48 hours. Return to the emergency department with any new, worsening, or concerning symptoms including streaking of redness up the arm or fever. Prescriptions: Sulfamethox-Tmp 800-160Mg [Bactrim Ds] 1 each PO Q12HR 5 Days #10 tab Cephalexin [Keflex] 500 mg PO Q6HR 5 Days #20 cap Is patient prescribed a controlled substance at d/c from ED?: No Referrals: Lora Cobb MD [Primary Care Provider] - 1-2 days Time of Disposition: 15:28
== END 2021-12-19 15:32 | disposition home or self-care (01) ==
LOC: EC 13:14
DX: L03.114 Cellulitis of left upper limb (principal); I25.10 Atherosclerotic heart disease of native coronary artery without angina pectoris; J44.9 Chronic obstructive pulmonary disease, unspecified; E78.5 Hyperlipidemia, unspecified; I10 Essential (primary) hypertension; I25.2 Old myocardial infarction; Z87.891 Personal history of nicotine dependence; Z79.02 Long term (current) use of antithrombotics/antiplatelets; Z79.82 Long term (current) use of aspirin; Z79.899 Other long term (current) drug therapy; Z88.1 Allergy status to other antibiotic agents
CPT/HCPCS: 99283

== ENCOUNTER 2022-01-12 08:26 | Observation (INO) | payer MEDICARE, OTHER ==
[2022-01-12] MEDS ORDERED: NITROGLYCERIN SL TABS 0.4 MG TAB SUBLINGUAL STA ×3 (08:42)
[2022-01-12] MEDS ORDERED: ASPIRIN 81 MG PO STA (08:42)
--- NOTE | 2022-01-12 08:45 | ED ---
General Adult HPI - General Chief complaint: Chest Pain Stated complaint: Chest pain Time Seen by Provider: 01/12/22 08:32 Source: patient, RN notes reviewed Mode of arrival: wheelchair Limitations: no limitations - History of Present Illness Initial comments: Patient is a pleasant 61-year-old male presenting to emergency department with concerns with chest discomfort. Onset of symptoms was around 9:00 last night. Patient took a nitro with improvement of symptoms. Discomfort has returned. Patient did take 2 nitro this morning without much improvement. Discomfort is currently 6/10. Discomfort is similar to when he needed previous stents. Shyann roes last had a stent round a month ago. A webb has pressure in his chest occasionally sharp. Discomfort does slightly radiate to the back and left arm. Patient has some associated dyspnea. No diaphoresis. Mild nausea. No leg pain or leg swelling. - Related Data Home Medications Medication Instructions Recorded Confirmed Metoprolol Succinate (ER) [Toprol 50 mg PO DAILY 10/30/20 12/13/21 XL] Montelukast [Singulair] 10 mg PO HS 11/23/20 12/13/21 Atorvastatin Calcium [Lipitor] 80 mg PO HS 03/25/21 12/13/21 Isosorbide Mononitrate ER [Imdur] 60 mg PO DAILY 03/25/21 12/13/21 Albuterol Nebulized [Ventolin 2.5 mg INHALATION RT-Q4H PRN 08/20/21 12/13/21 Nebulized] Albuterol Sulfate [Proair Hfa] 1 - 2 puff INHALATION RT-Q4H PRN 08/20/21 hydroCHLOROthiazide 12.5 mg PO DAILY 08/20/21 12/13/21 Aspirin EC [Ecotrin Low Dose] 81 mg PO DAILY 12/13/21 12/13/21 Famotidine [Pepcid] 20 mg PO BID 12/13/21 12/13/21 Previous Rx's Medication Instructions Recorded Clopidogrel [Plavix] 75 mg PO DAILY #30 tab 11/02/20 Nitroglycerin Sl Tabs [Nitrostat] 0.4 mg SL Q5M PRN #25 tab 11/30/20 Budesonide [Pulmicort] 1 mg INHALATION RT-BID ml 03/31/21 Ipratropium-Albuterol Nebulize 3 ml INHALATION RT-Q4H PRN ml 03/31/21 [Duoneb 0.5 mg-3 mg/3 ml Soln] Cephalexin [Keflex] 500 mg PO Q6HR 5 Days #20 cap 12/19/21 Sulfamethox-Tmp 800-160Mg [Bactrim 1 each PO Q12HR 5 Days #10 tab 12/19/21 Ds] Allergies Allergy/AdvReac Type Severity Reaction Status Date / Time levofloxacin [From Levaquin] AdvReac Nausea & Verified 12/19/21 13:20 Vomiting Review of Systems ROS Statement: Those systems with pertinent positive or pertinent negative responses have been documented in the HPI. ROS Other: All systems not noted in ROS Statement are negative. Constitutional: Denies: fever Eyes: Denies: eye pain ENT: Denies: ear pain Respiratory: Reports: as per HPI. Denies: cough Cardiovascular: Reports: as per HPI, chest pain Endocrine: Denies: fatigue Gastrointestinal: Denies: abdominal pain Genitourinary: Denies: dysuria Musculoskeletal: Denies: arthralgia Skin: Denies: rash Neurological: Denies: weakness Past Medical History Past Medical History: Coronary Artery Disease (CAD), COPD, Hyperlipidemia, Hypertension, Myocardial Infarction ([place]) Additional Past Medical History / Comment(s): Pt states he has hx of 3 respiratory arrests and was vented, generalized arthritis, Last Myocardial Infarction Date:: History of Any Multi-Drug Resistant Organisms: None Reported Past Surgical History: Adenoidectomy, Heart Catheterization With Stent, Hernia Repair, Joint Replacement, Orthopedic Surgery, Tonsillectomy Additional Past Surgical History / Comment(s): R inguinal hernia repair, L rotator cuff repair, bialteral total knee arthroplasties, R shoulder spur removal, teeth extracted, colonoscopy-normal. third hernia repair, left side, stents x2 2020 ear Past Anesthesia/Blood Transfusion Reactions: No Reported Reaction Date of Last Stent Placement:: 2018 Past Psychological History: No Psychological Hx Reported Smoking Status: Former smoker Past Alcohol Use History: Occasional Past Drug Use History: Marijuana - Past Family History Father Family Medical History: Cancer Additional Family Medical History / Comment(s): Father of lung cancer at the age of 62. He was a smoker. Mother Family Medical History: Cancer, Diabetes Mellitus, Hypertension Additional Family Medical History / Comment(s): Mother at age 78 from brainstem cancer. Brother(s) Additional Family Medical History / Comment(s): Patient's 1 brother with history of AAA. Patient has 4 sisters and he does not know any of their medical history. Patient's 1 son and 1 daughter living. He had one daughter that at 7 weeks old from a congenital heart. General Exam Limitations: no limitations General appearance: alert, in no apparent distress Eye exam: Present: normal appearance Neck exam: Present: normal inspection Respiratory exam: Present: normal lung sounds bilaterally. Absent: chest wall tenderness Cardiovascular Exam: Present: regular rate, normal rhythm Expanded Peripheral pulses: 2+: Radial (R), Radial (L), Posterior Tibialis (R), Posterior Tibialis (L) GI/Abdominal exam: Present: soft. Absent: tenderness Extremities exam: Present: normal inspection. Absent: pedal edema, calf tenderness Neurological exam: Present: alert Psychiatric exam: Present: normal affect, normal mood Skin exam: Present: normal color Course Vital Signs 01/12/22 01/12/22 01/12/22 08:29 08:38 09:13 Temperature 97.8 F Pulse Rate 67 62 66 Respiratory 18 16 16 Rate Blood Pressure 155/91 132/105 120/76 O2 Sat by Pulse 98 99 98 Oximetry 01/12/22 10:00 Temperature Pulse Rate 60 Respiratory 16 Rate Blood Pressure 118/77 O2 Sat by Pulse 98 Oximetry EKG Findings - EKG Comments: EKG Findings:: Sinus rhythm rate 73. OR 165. QRS 85. QT 367. QTC 393. Left axis. Normal QRS. No acute ST change. Medical Decision Making - Medical Decision Making Patient reevaluated. Symptoms have improved however not completely resolved. Patient updated on results and plan. Case was discussed with Dr. Frazier, who will admit covering Dr. pisano - Lab Data Result diagrams: 01/12/22 08:46 01/12/22 08:46 Lab Results 01/12/22 01/12/22 01/12/22 Range/Units 08:46 08:46 08:46 WBC 10.6 (3.8-10.6) k/uL RBC 5.41 (4.30-5.90) m/uL Hgb 16.5 (13.0-17.5) gm/dL Hct 47.3 (39.0-53.0) % MCV 87.3 (80.0-100.0) fL MCH 30.4 (25.0-35.0) pg MCHC 34.8 (31.0-37.0) g/dL RDW 12.7 (11.5-15.5) % Plt Count 223 (150-450) k/uL MPV 8.3 Neutrophils % 51 % Lymphocytes % 39 % Monocytes % 4 % Eosinophils % 3 % Basophils % 1 % Neutrophils # 5.4 (1.3-7.7) k/uL Lymphocytes # 4.2 (1.0-4.8) k/uL Monocytes # 0.4 (0-1.0) k/uL Eosinophils # 0.3 (0-0.7) k/uL Basophils # 0.1 (0-0.2) k/uL PT 9.6 (9.0-12.0) sec INR 0.9 (<1.2) APTT 23.4 (22.0-30.0) sec D-Dimer 0.36 (<0.60) mg/L FEU Sodium 139 (137-145) mmol/L Potassium 4.3 (3.5-5.1) mmol/L Chloride 104 (98-107) mmol/L Carbon Dioxide 24 (22-30) mmol/L Anion Gap 11 mmol/L BUN 14 (9-20) mg/dL Creatinine 0.79 (0.66-1.25) mg/dL Est GFR (CKD-EPI)AfAm >90 (>60 ml/min/1.73 sqM) Est GFR (CKD-EPI)NonAf >90 (>60 ml/min/1.73 sqM) Glucose 106 H (74-99) mg/dL Calcium 9.1 (8.4-10.2) mg/dL Magnesium 2.1 (1.6-2.3) mg/dL Total Bilirubin 0.5 (0.2-1.3) mg/dL AST 22 (17-59) U/L ALT 26 (4-49) U/L Alkaline Phosphatase 134 H (38-126) U/L Troponin I (0.000-0.034) ng/mL NT-Pro-B Natriuret Pep pg/mL Total Protein 6.9 (6.3-8.2) g/dL Albumin 4.4 (3.5-5.0) g/dL 01/12/22 01/12/22 Range/Units 08:46 08:46 WBC (3.8-10.6) k/uL RBC (4.30-5.90) m/uL Hgb (13.0-17.5) gm/dL Hct (39.0-53.0) % MCV (80.0-100.0) fL MCH (25.0-35.0) pg MCHC (31.0-37.0) g/dL RDW (11.5-15.5) % Plt Count (150-450) k/uL MPV Neutrophils % % Lymphocytes % % Monocytes % % Eosinophils % % Basophils % % Neutrophils # (1.3-7.7) k/uL Lymphocytes # (1.0-4.8) k/uL Monocytes # (0-1.0) k/uL Eosinophils # (0-0.7) k/uL Basophils # (0-0.2) k/uL PT (9.0-12.0) sec INR (<1.2) APTT (22.0-30.0) sec D-Dimer (<0.60) mg/L FEU Sodium (137-145) mmol/L Potassium (3.5-5.1) mmol/L Chloride (98-107) mmol/L Carbon Dioxide (22-30) mmol/L Anion Gap mmol/L BUN (9-20) mg/dL Creatinine (0.66-1.25) mg/dL Est GFR (CKD-EPI)AfAm (>60 ml/min/1.73 sqM) Est GFR (CKD-EPI)NonAf (>60 ml/min/1.73 sqM) Glucose (74-99) mg/dL Calcium (8.4-10.2) mg/dL Magnesium (1.6-2.3) mg/dL Total Bilirubin (0.2-1.3) mg/dL AST (17-59) U/L ALT (4-49) U/L Alkaline Phosphatase (38-126) U/L Troponin I <0.012 (0.000-0.034) ng/mL NT-Pro-B Natriuret Pep 48 pg/mL Total Protein (6.3-8.2) g/dL Albumin (3.5-5.0) g/dL - Radiology Data Radiology results: image reviewed (Chest x-ray shows no acute process) Disposition Clinical Impression: Chest pain Disposition: ADMITTED IP TO THIS HOSP Is patient prescribed a controlled substance at d/c from ED?: No Referrals: Lora Cobb MD [Primary Care Provider] - 1-2 days Time of Disposition: 10:28
[2022-01-12 08:54] LABS: Basophils # (A) 0.1 k/uL (0-0.2); Basophils % (A) 1 %; Eosinophils # (A) 0.3 k/uL (0-0.7); Eosinophils % (A) 3 %; HCT 47.3 % (39.0-53.0); HGB 16.5 gm/dL (13.0-17.5); Lymphocytes # (A) 4.2 k/uL (1.0-4.8); Lymphocytes % (A) 39 %; MCH 30.4 pg (25.0-35.0); MCHC 34.8 g/dL (31.0-37.0); MCV 87.3 fL (80.0-100.0); Mean Platelet Volume 8.3; Monocytes # (A) 0.4 k/uL (0-1.0); Monocytes % (A) 4 %; Neutrophils # (A) 5.4 k/uL (1.3-7.7); Neutrophils % (A) 51 %; Platelet Count 223 k/uL (150-450); RBC 5.41 m/uL (4.30-5.90); RDW 12.7 % (11.5-15.5); WBC 10.6 k/uL (3.8-10.6)
[2022-01-12 09:04] LABS: ALT 26 U/L (4-49); AST 22 U/L (17-59); African American GFR (CKD) >90 (>60 ml/min/1.73 sqM); Albumin 4.4 g/dL (3.5-5.0); Alkaline Phosphatase 134 U/L (38-126); Anion Gap 11 mmol/L; Blood Urea Nitrogen 14 mg/dL (9-20); Calcium 9.1 mg/dL (8.4-10.2); Carbon Dioxide 24 mmol/L (22-30); Chloride 104 mmol/L (98-107); Glucose 106 mg/dL (74-99); Magnesium 2.1 mg/dL (1.6-2.3); Non-African American GFR(CKD) >90 (>60 ml/min/1.73 sqM); Potassium 4.3 mmol/L (3.5-5.1); Sodium 139 mmol/L (137-145); Total Bilirubin 0.5 mg/dL (0.2-1.3); Total Protein 6.9 g/dL (6.3-8.2)
[2022-01-12 09:08] LABS: INR 0.9 (<1.2); Partial Thromboplastin Time 23.4 sec (22.0-30.0); Prothrombin Time 9.6 sec (9.0-12.0)
--- NOTE | 2022-01-12 09:15 | XR ---
EXAMINATION TYPE: XR chest 2V DATE OF EXAM: 01/12/2022 COMPARISON: Chest x-ray December 13, 2021 HISTORY: Chest pain. TECHNIQUE: Frontal and lateral views of the chest are obtained. FINDINGS: There is no suspicious new focal air space opacity, pleural effusion, or pneumothorax seen . The cardiac silhouette size is stable and within normal limits. Metallic anchor left humeral head redemonstrated. Overlying EKG leads noted on current study. IMPRESSION: No acute cardiopulmonary process. No significant change from prior.
[2022-01-12] MEDS ORDERED: NITROGLYCERIN SL TABS 0.4 MG TAB SUBLINGUAL PRN ×2 (10:26→17:19)
[2022-01-12] MEDS ORDERED: MORPHINE SULFATE 4 MG/ML SYRINGE IVP STA (10:30)
[2022-01-12] MEDS: NITROGLYCERIN OINT 1 INCH/GM PACKET TOPICAL SCH ×2 (10:35→17:10)
--- NOTE | 2022-01-12 13:07 | P.CRDCN ---
History of Present Illness History of present illness: HISTORY OF PRESENTING ILLNESS This is a pleasant 61-year-old male past medical history significant for coronary artery disease status post prior PCI mid LAD 12/17/2021, PCI RCA 12/2018 and mid RCA 10/2020, hypertension, dyslipidemia, chronic nicotine dependence, COPD, former tobacco use, former illicit drug use, former alcohol abuse. He follows in the office with Dr. De Luna. We have been asked to see in consultation for chest pain. Patient presents to the emergency department with complaints of chest discomfort. Patient states last night he had midsternal chest discomfort. Non-radiating, non-exertional. He describes it as sharp. 01/05. He did take 1 nitro and had some relief, he went to sleep. He woke up again with similar discomfort. This time it worsened with movement of the arms and his chest. When patient sits up and moves he states his pain is worsened. He 2 nitro today with no relief. He had some relief with IV morphine. He had some shortness of breath and nausea when the pain was at its worst. He states he his compliant with his medications. Denies any palpitations, lightheadedness, dizziness, syncope or near syncope. He denies any symptoms of orthopnea or PND. Denies any current tobacco, alcohol or illicit drug use. DIAGNOSTICS * EKG reveals sinus rhythm HR 73, left axis deviation, non-specific T wave abnormalities, artifact noted. Prior EKG with similar findings * Last Cardiac Catheterization 12/17/2021 which revealed left circumflex proximally has a lesion appeared to be in the range of 3040 percent, mid LAD by the bifurcation of the large first and second diagonal branches appeared to have a lesion in the range of 60%. FFR was performed and came in to be ischemic. Patient underwent stenting on the LAD * Echocardiogram 04/2019 revealed EF 50%, mild tricuspid regurgitation, mild mitral regurgitation * Telemetry tracings indicate sinus rhythm * Chest xray No acute cardiopulmonary process * Laboratory reviewed, CBC unremarkable, d-dimer negative, sodium 139, potassium 4.3, BUN 14, serum creatinine 0.7, magnesium 2.1, troponin negative, proBNP 48 * Current home medications include hydrochlorothiazide 12.5 mg daily, metoprolol succinate 50 mg daily, Imdur 60 mg daily, Plavix 75 mg daily, atorvastatin 80 mg nightly, aspirin 81 mg daily REVIEW OF SYSTEMS At the time of my exam: CONSTITUTIONAL: Denies fever or chills. CARDIOVASCULAR: + chest pain, +shortness of breath, Denies orthopnea, PND or palpitations. RESPIRATORY: Denies cough. GASTROINTESTINAL: Denies abdominal pain, diarrhea, constipation, nausea or vomiting. MUSCULOSKELETAL: Denies myalgias. NEUROLOGIC: Denies numbness, tingling, headache or weakness. ENDOCRINE: Denies fatigue, weight change, polydipsia or polyurina. GENITOURINARY: Denies burning, hematuria or urgency with micturation. HEMATOLOGIC: Denies history of anemia or bleeding. PHYSICAL EXAMINATION Blood pressure 113/78 HR 64, Afebrile 98% on 2L nasal cannula CONSTITUTIONAL: No apparent distress. HEENT: Head is normocephalic. Pupils are equal, round. Sclerae anicteric. Mucous membranes of the mouth are moist. No JVD. No carotid bruit. CHEST EXAMINATION: Lungs are clear to auscultation. Some chest wall tenderness with movement of bilateral arms and chest HEART EXAMINATION: Regular rate and rhythm. S1, S2 heard. No murmurs, gallops or rub. ABDOMEN: Soft, nontender. Positive bowel sounds. EXTREMITIES: 2+ peripheral pulses, no lower extremity edema and no calf tenderness. SKIN: warm, dry NEUROLOGIC EXAMINATION: Patient is awake, alert and oriented x3. ASSESSMENT Chest pain, unclear etiology at this time Coronary artery disease status post prior PCI mid LAD 12/17/2021, PCI RCA 12/2018 and mid RCA 10/2020 Hypertension Dyslipidemia Chronic nicotine dependence COPD PLAN Repeat Troponin and EKG Continue dual antiplatelet therapy with aspirin and plavix Continue home cardiac medications NPO after midnight pending workup Further recommendations based on evaluation by Dr. tSrange and clinical course Thank you kindly for this consultation. Nurse practitioner note has been reviewed by physician. Signing provider agrees with the documented findings, assessment, and plan of care. Past Medical History Past Medical History: Coronary Artery Disease (CAD), COPD, Hyperlipidemia, Hypertension, Myocardial Infarction ([place]) Additional Past Medical History / Comment(s): Pt states he has hx of 3 respiratory arrests and was vented, generalized arthritis, Last Myocardial Infarction Date:: History of Any Multi-Drug Resistant Organisms: None Reported Past Surgical History: Adenoidectomy, Heart Catheterization With Stent, Hernia Repair, Joint Replacement, Orthopedic Surgery, Tonsillectomy Additional Past Surgical History / Comment(s): R inguinal hernia repair, L rotator cuff repair, bialteral total knee arthroplasties, R shoulder spur removal, teeth extracted, colonoscopy-normal. third hernia repair, left side, stents x2 2020 ear Past Anesthesia/Blood Transfusion Reactions: No Reported Reaction Date of Last Stent Placement:: 2018 Past Psychological History: No Psychological Hx Reported Smoking Status: Former smoker Past Alcohol Use History: Occasional Past Drug Use History: Marijuana - Past Family History Father Family Medical History: Cancer Additional Family Medical History / Comment(s): Father of lung cancer at the age of 62. He was a smoker. Mother Family Medical History: Cancer, Diabetes Mellitus, Hypertension Additional Family Medical History / Comment(s): Mother at age 78 from brainstem cancer. Brother(s) Additional Family Medical History / Comment(s): Patient's 1 brother with history of AAA. Patient has 4 sisters and he does not know any of their medical history. Patient's 1 son and 1 daughter living. He had one daughter that at 7 weeks old from a congenital heart. Medications and Allergies Home Medications Medication Instructions Recorded Confirmed Type Metoprolol Succinate (ER) [Toprol 50 mg PO DAILY 10/30/20 01/12/22 History XL] Clopidogrel [Plavix] 75 mg PO DAILY #30 tab 11/02/20 01/12/22 Rx Montelukast [Singulair] 10 mg PO HS 11/23/20 01/12/22 History Nitroglycerin Sl Tabs [Nitrostat] 0.4 mg SL Q5M PRN #25 tab 11/30/20 01/12/22 Rx Atorvastatin Calcium [Lipitor] 80 mg PO HS 03/25/21 01/12/22 History Isosorbide Mononitrate ER [Imdur] 60 mg PO DAILY 03/25/21 01/12/22 History Budesonide [Pulmicort] 1 mg INHALATION RT-BID ml 03/31/21 01/12/22 Rx Ipratropium-Albuterol Nebulize 3 ml INHALATION RT-Q4H PRN ml 03/31/21 01/12/22 Rx [Duoneb 0.5 mg-3 mg/3 ml Soln] Albuterol Nebulized [Ventolin 2.5 mg INHALATION RT-Q4H PRN 08/20/21 01/12/22 History Nebulized] Albuterol Sulfate [Proair Hfa] 1 - 2 puff INHALATION RT-Q4H PRN 08/20/21 01/12/22 History hydroCHLOROthiazide 12.5 mg PO DAILY 08/20/21 01/12/22 History Aspirin EC [Ecotrin Low Dose] 81 mg PO DAILY 12/13/21 01/12/22 History Famotidine [Pepcid] 20 mg PO BID 12/13/21 01/12/22 History Allergies Allergy/AdvReac Type Severity Reaction Status Date / Time levofloxacin [From [facility]] AdvReac Nausea & Verified 01/12/22 11:15 Vomiting Physical Exam Vitals: Vital Signs Temp Pulse Resp BP Pulse Ox 01/12/22 10:34 70 18 116/81 99 01/12/22 10:00 60 16 118/77 98 01/12/22 09:13 66 16 120/76 98 01/12/22 08:38 62 16 132/105 99 01/12/22 08:29 97.8 F 67 18 155/91 98 Intake and Output 01/11/22 01/12/22 01/12/22 22:59 06:59 14:59 Other: Weight 90.718 kg Results 01/12/22 08:46 01/12/22 08:46 Cardiac Enzymes 01/12/22 01/12/22 Range/Units 08:46 08:46 AST 22 (17-59) U/L Troponin I <0.012 (0.000-0.034) ng/mL Coagulation 01/12/22 Range/Units 08:46 PT 9.6 (9.0-12.0) sec APTT 23.4 (22.0-30.0) sec CBC 01/12/22 Range/Units 08:46 WBC 10.6 (3.8-10.6) k/uL RBC 5.41 (4.30-5.90) m/uL Hgb 16.5 (13.0-17.5) gm/dL Hct 47.3 (39.0-53.0) % Plt Count 223 (150-450) k/uL Comprehensive Metabolic Panel 01/12/22 Range/Units 08:46 Sodium 139 (137-145) mmol/L Potassium 4.3 (3.5-5.1) mmol/L Chloride 104 (98-107) mmol/L Carbon Dioxide 24 (22-30) mmol/L BUN 14 (9-20) mg/dL Creatinine 0.79 (0.66-1.25) mg/dL Glucose 106 H (74-99) mg/dL Calcium 9.1 (8.4-10.2) mg/dL AST 22 (17-59) U/L ALT 26 (4-49) U/L Alkaline Phosphatase 134 H (38-126) U/L Total Protein 6.9 (6.3-8.2) g/dL Albumin 4.4 (3.5-5.0) g/dL Current Medications Generic Name Dose Route Start Last Admin Trade Name Freq PRN Reason Stop Dose Admin Aspirin 325 mg 01/13/22 09:00 Aspirin 325 Mg Tab PO DAILY PRASHANT Nitroglycerin 0.4 mg 01/12/22 10:26 Nitroglycerin Sl Tabs 0.4 Mg Tab SUBLINGUAL Q5M PRN Chest Pain Nitroglycerin 1 inch 01/12/22 12:00 01/12/22 10:35 Nitroglycerin Oint 1 Inch/Gm Packet TOPICAL 1 inch Q6HR PRASHANT Administration Sodium Chloride 10 ml 01/12/22 21:00 Sodium Chloride 0.9% Flush 10 Ml Syringe IV BID PRASHANT Intake and Output 01/11/22 01/12/22 01/12/22 22:59 06:59 14:59 Other: Weight 90.718 kg Patient Weight 01/13/22 06:59 Weight 90.718 kg 01/12/22 08:46 01/12/22 08:46
[2022-01-12] MEDS ORDERED: KETOROLAC 15 MG/ML 1 ML VIAL IVP STA (14:42)
[2022-01-12] MEDS ORDERED: ALBUTEROL NEBULIZED 2.5 MG/3 ML INHALATION PRN (17:19)
[2022-01-12] MEDS ORDERED: IPRATROPIUM-ALBUTEROL 3 ML NEB INHALATION PRN (17:19)
--- NOTE | 2022-01-12 17:20 | P.HPIM ---
History of Present Illness H&P Date: 01/12/22 Marcel Jo, is a 61-year-old male who presented to [facility] emergency room with a chief complaint of chest pain. Patient has a known history of coronary artery disease and underwent cardiac catheterization with angioplasty and stent placement one month ago. He stated that his chest pain started at 9 PM last night he describes a severe pain in the midsternum area, which he stated that it was similar to his pain prior to coming to the hospital last month. Patient denies any radiation of the pain he denies any nausea vomiting or diaphoresis. There is no shortness of breath or dizziness. He was evaluated in the emergency room vital examination on presentation revealed a temperature of 97.8 pulse 67 respiration 18 blood pressure 155/91 pulse ox 98% on room air Laboratory data revealed a white blood count of 10.6 hemoglobin 16.5 platelet count 223 d-dimer 0.36 troponin level less than 0.012 creatinine 0.7 Testing in the emergency room revealed EKG revealed sinus rhythm with left axis deviation Patient was admitted to medical floor for further evaluation and treatment Past Medical History Past Medical History: Coronary Artery Disease (CAD), COPD, Hyperlipidemia, Hypertension, Myocardial Infarction ([place]) Additional Past Medical History / Comment(s): Pt states he has hx of 3 respiratory arrests and was vented, generalized arthritis, Last Myocardial Infarction Date:: History of Any Multi-Drug Resistant Organisms: None Reported Past Surgical History: Adenoidectomy, Heart Catheterization With Stent, Hernia Repair, Joint Replacement, Orthopedic Surgery, Tonsillectomy Additional Past Surgical History / Comment(s): R inguinal hernia repair, L rotator cuff repair, bialteral total knee arthroplasties, R shoulder spur removal, teeth extracted, colonoscopy-normal. third hernia repair, left side, stents x2 2020 ear Past Anesthesia/Blood Transfusion Reactions: No Reported Reaction Date of Last Stent Placement:: 2018 Past Psychological History: No Psychological Hx Reported Smoking Status: Former smoker Past Alcohol Use History: Occasional Past Drug Use History: Marijuana - Past Family History Father Family Medical History: Cancer Additional Family Medical History / Comment(s): Father of lung cancer at the age of 62. He was a smoker. Mother Family Medical History: Cancer, Diabetes Mellitus, Hypertension Additional Family Medical History / Comment(s): Mother at age 78 from brainstem cancer. Brother(s) Additional Family Medical History / Comment(s): Patient's 1 brother with history of AAA. Patient has 4 sisters and he does not know any of their medical history. Patient's 1 son and 1 daughter living. He had one daughter that at 7 weeks old from a congenital heart. Medications and Allergies Home Medications Medication Instructions Recorded Confirmed Type Metoprolol Succinate (ER) [Toprol 50 mg PO DAILY 10/30/20 01/12/22 History XL] Clopidogrel [Plavix] 75 mg PO DAILY #30 tab 11/02/20 01/12/22 Rx Montelukast [Singulair] 10 mg PO HS 11/23/20 01/12/22 History Nitroglycerin Sl Tabs [Nitrostat] 0.4 mg SL Q5M PRN #25 tab 11/30/20 01/12/22 Rx Atorvastatin Calcium [Lipitor] 80 mg PO HS 03/25/21 01/12/22 History Isosorbide Mononitrate ER [Imdur] 60 mg PO DAILY 03/25/21 01/12/22 History Budesonide [Pulmicort] 1 mg INHALATION RT-BID ml 03/31/21 01/12/22 Rx Ipratropium-Albuterol Nebulize 3 ml INHALATION RT-Q4H PRN ml 03/31/21 01/12/22 Rx [Duoneb 0.5 mg-3 mg/3 ml Soln] Albuterol Nebulized [Ventolin 2.5 mg INHALATION RT-Q4H PRN 08/20/21 01/12/22 History Nebulized] Albuterol Sulfate [Proair Hfa] 1 - 2 puff INHALATION RT-Q4H PRN 08/20/21 01/12/22 History hydroCHLOROthiazide 12.5 mg PO DAILY 08/20/21 01/12/22 History Aspirin EC [Ecotrin Low Dose] 81 mg PO DAILY 12/13/21 01/12/22 History Famotidine [Pepcid] 20 mg PO BID 12/13/21 01/12/22 History Allergies Allergy/AdvReac Type Severity Reaction Status Date / Time levofloxacin [From Levaquin] AdvReac Nausea & Verified 01/12/22 11:15 Vomiting Physical Exam Vitals: Vital Signs Temp Pulse Resp BP Pulse Ox 01/12/22 17:11 97.8 F 63 16 119/86 99 01/12/22 16:27 71 16 105/79 98 01/12/22 15:10 97.8 F 62 16 130/95 100 01/12/22 12:57 64 113/78 98 01/12/22 11:57 60 16 123/81 97 01/12/22 10:34 70 18 116/81 99 01/12/22 10:00 60 16 118/77 98 01/12/22 09:13 66 16 120/76 98 01/12/22 08:38 62 16 132/105 99 01/12/22 08:29 97.8 F 67 18 155/91 98 Intake and Output 01/12/22 01/12/22 01/12/22 06:59 14:59 22:59 Other: Weight 90.718 kg In general patient is alert and oriented x 3 in no distress HEENT head normocephalic and atraumatic Neck is supple no JVD no goiter no lymphadenopathy no carotid bruit Chest examination is clear to auscultation no crackles no wheezing Cardiac exam reveals regular heart sounds S1 and S2 no gallops no murmurs Abdomen is soft nontender no organomegaly with normal bowel sounds Extremity exam reveals no edema no cyanosis or clubbing Neurological examination reveals no gross focal deficits Results CBC & Chem 7: 01/12/22 08:46 01/12/22 08:46 Labs: Abnormal Lab Results - Last 24 Hours (Table) 01/12/22 Range/Units 08:46 Glucose 106 H (74-99) mg/dL Alkaline Phosphatase 134 H (38-126) U/L Assessment and Plan Plan: Episode of chest pain, started at 9 PM last night patient is still having chest pain on and off Underlying history of coronary artery disease with history of angioplasty and stent placement one month ago Underlying history of hypertension Underlying history of hyperlipidemia Underlying history of COPD At this time patient was seen and examined Cardiology consultation requested Home medications reviewed and reordered Will follow closely
--- NOTE | 2022-01-12 17:23 | P.PN ---
Progress Note - Text HPI: []. PHYSICIAL EXAM: []. IMPRESSION: 1. []. 2. []. 3. []. 4. []. 5. []. RECOMMENDATIONS: [Patient was seen and evaluated by me. He is having constant pain in the chest which seems very musculoskeletal in fact there is some tenderness over his lower sternum and drapes. He is not sure if he did any physical activity to cause the symptoms. However he is reproducible pain negative troponins constant ache since yesterday but he is quite concerned and anxious. Physical exam did not reveal any significant abnormalities. An re commending that we hold the beta octaviano and change aspirin to 81 mg daily and perform a dobutamine echo tomorrow. Patient had a recent LAD PCI late November about 3-1/2 weeks ago. His previous RCA stent was patent. I explained to the patient the rationale for the test and suggested that if there is any question on the dobutamine echo he will need a heart catheterization. He understands and wishes to proceed].
--- NOTE | 2022-01-12 17:41 | CA ---
Transthoracic Echo Report Name: Marcel Jo Age: 61 Gender: M : 1960 Exam Date: 01/12/2022 14:06 Exam Location: [facility] Ht (in): 68 Wt (lb): 200 Ordering Physician: Whitney Montano Attending/Referring Phys: Machinist Instructor Binta Kumar, DHARMESH Procedure CPT: Indications: LV function, rule out pericardial effusion Cardiac Hx: Technical Quality: Fair Contrast 1: Total Dose (mL): Contrast 2: Total Dose (mL): MEASUREMENTS (Male / Female) Normal Values 2D ECHO LV Diastolic Diameter PLAX 5.4 cm 4.2 - 5.9 / 3.9 - 5.3 cm LV Systolic Diameter PLAX 3.8 cm IVS Diastolic Thickness 0.7 cm 0.6 - 1.0 / 0.6 - 0.9 cm LVPW Diastolic Thickness 1.0 cm 0.6 - 1.0 / 0.6 - 0.9 cm LV Relative Wall Thickness 0.3 RV Internal Dim ED PLAX 3.5 cm LA Volume 46.7 cm??? 18 - 58 / 22 - 52 cm??? M-MODE Aortic Root Diameter MM 3.7 cm LA Systolic Diameter MM 3.1 cm LA Ao Ratio MM 0.8 AV Cusp Separation MM 1.4 cm DOPPLER AV Peak Velocity 99.4 cm/s AV Peak Gradient 4.0 mmHg LVOT Peak Velocity 83.5 cm/s LVOT Peak Gradient 2.8 mmHg MV Area PHT 2.7 cm??? Mitral E Point Velocity 64.4 cm/s Mitral A Point Velocity 88.8 cm/s Mitral E to A Ratio 0.7 MV Deceleration Time 282.6 ms TR Peak Velocity 140.0 cm/s TR Peak Gradient 7.8 mmHg Right Ventricular Systolic Press 12.8 mmHg FINDINGS Left Ventricle Normal left ventricular systolic function with no obvious regional wall motion abnormalities. Left ventricular ejection fraction is estimated at 55 %. Right Ventricle Mild right ventricular dilatation. Right Atrium Normal right atrial size. Left Atrium Normal left atrial size. Mitral Valve Structurally normal mitral valve. Mild mitral annular calcification. Mild mitral regurgitation. Aortic Valve No aortic valve stenosis or regurgitation. Tricuspid Valve Structurally normal tricuspid valve. Mild tricuspid regurgitation. Pulmonic Valve Trace pulmonic regurgitation. Pericardium No pericardial effusion. Prominent epicardial fat. Aorta Normal size aortic root and proximal ascending aorta. CONCLUSIONS Normal LV size and systolic function. Mild right ventricular prominence. Mild mitral and tricuspid insufficiency. Mitral annular calcification and aortic sclerosis. No pericardial effusion Previewed by: Dr. Monico Strange MD (Electronically Signed) Final Date: 12 January 2022 17:40
[2022-01-12] MEDS: BUDESONIDE 1 MG/2 ML NEBU INHALATION SCH (19:18)
[2022-01-12] MEDS ORDERED: KETOROLAC 15 MG/ML 1 ML VIAL IVP SCH (20:00)
[2022-01-12] MEDS: KETOROLAC 15 MG/ML 1 ML VIAL IVP SCH (20:35)
[2022-01-12] MEDS ORDERED: MONTELUKAST 10 MG TAB PO SCH (21:00)
[2022-01-12] MEDS ORDERED: ATORVASTATIN 80 MG TAB PO SCH (21:00)
[2022-01-12] MEDS: FAMOTIDINE 20 MG TAB PO SCH (21:08)
[2022-01-13] MEDS: KETOROLAC 15 MG/ML 1 ML VIAL IVP SCH ×3 (01:47→14:52)
[2022-01-13 03:19] VITALS: TEMP 98
[2022-01-13] MEDS ORDERED: DOBUTamine DRIP for NUC MED 500 MG in DEXTROSE/WATER 1 250ML.BAG IV PRN (05:00)
[2022-01-13 06:18] LABS: African American GFR (CKD) >90 (>60 ml/min/1.73 sqM); Anion Gap 11 mmol/L; Blood Urea Nitrogen 22 mg/dL (9-20); Carbon Dioxide 25 mmol/L (22-30); Chloride 102 mmol/L (98-107); Glucose 97 mg/dL (74-99); Non-African American GFR(CKD) 84 (>60 ml/min/1.73 sqM); Potassium 4.1 mmol/L (3.5-5.1); Sodium 138 mmol/L (137-145)
[2022-01-13 08:18] VITALS: BP 149/80; RESP 18
[2022-01-13] MEDS: FAMOTIDINE 20 MG TAB PO SCH (08:20)
[2022-01-13] MEDS ORDERED: ASPIRIN 325 MG TAB PO SCH (09:00)
[2022-01-13] MEDS ORDERED: CLOPIDOGREL 75 MG TAB PO SCH (09:00)
[2022-01-13] MEDS ORDERED: hydroCHLOROthiazide 12.5 MG CAP PO SCH (09:00)
[2022-01-13] MEDS ORDERED: METOPROLOL SUCCINATE (ER) 50 MG TAB.ER.24H PO SCH (09:00)
[2022-01-13] MEDS ORDERED: ISOSORBIDE MONONITRATE ER 60 MG TAB.ER.24H PO SCH (09:00)
[2022-01-13] MEDS ORDERED: ASPIRIN 81 MG PO SCH (09:00)
[2022-01-13 09:03] LABS: Chol/HDL Ratio 4.88 Ratio; LDL Cholesterol,Calculated 85.7 mg/dL (0.0-131.0)
--- NOTE | 2022-01-13 09:05 | P.PN ---
Subjective This is a pleasant 61-year-old male past medical history significant for coronary artery disease status post prior PCI mid LAD 12/17/2021, PCI RCA 1 and mid RCA 10/2020, hypertension, dyslipidemia, chronic nicotine dependence, COPD, former tobacco use, former illicit drug use, former alcohol abuse. He follows in the office with Dr. De Luna. We have been asked to see in consultation for chest pain. Patient presents to the emergency department with complaints of chest discomfort. Patient states last night he had midsternal chest discomfort. Non-radiating, non-exertional. He describes it as sharp. 01/05. He did take 1 nitro and had some relief, he went to sleep. He woke up again with similar discomfort. This time it worsened with movement of the arms and his chest. When patient sits up and moves he states his pain is worsened. He 2 nitro today with no relief. He had some relief with IV morphine. He had some shortness of breath and nausea when the pain was at its worst. He states he his compliant with his medications. Denies any palpitations, lightheadedness, dizziness, syncope or near syncope. He denies any symptoms of orthopnea or PND. Denies any current tobacco, alcohol or illicit drug use. DIAGNOSTICS * Last Cardiac Catheterization 12/17/2021 which revealed left circumflex proximally has a lesion appeared to be in the range of 3040 percent, mid LAD by the bifurcation of the large first and second diagonal branches appeared to have a lesion in the range of 60%. FFR was performed and came in to be ischemic. Patient underwent stenting on the LAD 01/13/2022 Patient seen and examined at bedside, no acute distress. Continues to have intermittent chest discomfort but also describes it worse with movement in the bed. He has no shortness of breath. Acute coronary syndrome has been ruled out. Echocardiogram revealed ejection fraction of 55%, mild mitral regurgitation, no pericardial effusion. PHYSICAL EXAMINATION Blood pressure 149/80, heart rate 59, afebrile, saturations 99% on room air CONSTITUTIONAL: No apparent distress. HEENT: Head is normocephalic. Neck Supple. No JVD. CHEST EXAMINATION: Lungs are clear to auscultation. Some chest wall tenderness with movement of bilateral arms and chest HEART EXAMINATION: Regular rate and rhythm. S1, S2 heard. No murmurs, gallops or rub. ABDOMEN: Soft, nontender. Positive bowel sounds. EXTREMITIES: 2+ peripheral pulses, no lower extremity edema and no calf ten derness. NEUROLOGIC EXAMINATION: Patient is awake, alert and oriented x3. ASSESSMENT Chest pain, acute coronary syndrome has been ruled out Coronary artery disease status post prior PCI mid LAD 12/17/2021, PCI RCA 12/2018 and mid RCA 10/2020 Hypertension Dyslipidemia Chronic nicotine dependence COPD PLAN An acute coronary event has been ruled out with no EKG evidence of ischemia and negative cardiac enzymes. Perform Dobutamine stress echo test to assess for stress induced cardiac ischemia. If abnormal will consider coronary angiography. If stress test with no evidence of inducible ischemia no further inpatient workup from a cardiology perspective Continue home cardiac medications Follow up with Dr. De Luna outpatient Nurse practitioner note has been reviewed by physician. Signing provider agrees with the documented findings, assessment, and plan of care. Objective - Vital Signs Vital signs: Vital Signs Temp 98.0 F 01/13/22 01:18 Pulse 60 01/13/22 01:18 Resp 17 01/13/22 01:18 BP 120/78 01/13/22 01:18 Pulse Ox 99 01/13/22 01:18 FiO2 Intake & Output 01/12/22 01/13/22 01/13/22 18:59 06:59 18:59 Weight 90.718 kg 90.718 kg Other: # Voids 2 - Labs CBC & Chem 7: 01/12/22 08:46 01/13/22 05:40 Labs: Abnormal Lab Results - Last 24 Hours (Table) 01/12/22 01/13/22 Range/Units 08:46 05:40 BUN 22 H (9-20) mg/dL Glucose 106 H (74-99) mg/dL Alkaline Phosphatase 134 H (38-126) U/L
[2022-01-13] MEDS: BUDESONIDE 1 MG/2 ML NEBU INHALATION SCH (09:21)
[2022-01-13 10:07] VITALS: PULSE 59
--- NOTE | 2022-01-13 12:55 | CA ---
Dobutamine Stress Echocardiogram Report Marcel Jo Age: 61 Gender: M : 1960 Exam Date: 01/13/2022 10:50 Exam Location: [facility] Ordering Physician: Monico Strange MD ([id number]) Referring Physician: CELSA,, Yarn Carrier: Monse Spears RDCS Technologist: Ht (in): 72 Wt (lb): 205 Procedure CPT: Indication: Chest Pain ICD-9 Codes: Rhythm: Patient History: Cardiac Medications: Medications in past 24 hours: Contrast: Lumason Total Dose (mL): 10 Stress Results Protocol: Dobutamine Peak Dose (???g/kg/min): 30 Duration (min:sec): Atropine:(mg) N/A Target HR: 136 Double Product: [id number] Resting HR: 63 Resting BP: 127 / 72 Peak HR: 139 Peak BP: 169 / 123 Max Predicted HR: 160 87 % Max Predicted HR Stress Summary: PT WAS HAVING SEVERE CHEST PAIN "10" 11:22AM, NITRO WAS GIVEN SUBLINGUAL 0.4MG BP Response: Reason for Termination: Target HR Cardiac Symptoms: CHEST PAIN "10" ECG Analysis Resting EKG: Stress EKG: Arrhythmia: Echo Analysis Base Echo Analysis: Low Echo Anaylsis: Peak Echo Analysis: Recovery Echo: MEASUREMENTS (Male/Female) Normal Values CONCLUSIONS Patient underwent dobutamine stress echo with infusion of dobutamine into Stage 3 for a total of 9 minutes 53 seconds. Patient's maximum heart rate was 144 which represented 90 % age- predicted maximum heart rate. Patient did have "10 out of 10" chest pain with dobutamine infusion. Stress EKG portion: At baseline patient's EKG showed normal sinus rhythm, normal axis, no significant ST or T wave abnormalities. At peak dobutamine infusion, EKG showed occasional PVCs and nonspecific and nondiagnostic 0.[address] depressions in the inferior lateral leads. Stress echo portion: 2-D echocardiogram was performed in the parasternal long, personal short, apical 2 and apical four-chamber views at rest, low-dose, peak infusion and in recovery. At baseline, echocardiogram showed left ventricular ejection fraction 55% without wall motion abnormalities. With peak infusion, echocardiogram shows improvement in left ventricular ejection fraction, increase contractility, decrease in left ventricular end systolic dimension without wall motion abnormalities consistent with a normal response to dobutamine. Conclusions: 1. Normal stress EKG and echo response to dobutamine infusion without any evidence of inducible ischemia. 2. Left ventricular ejection fraction 55% 3. Chest pain noted with dobutamine infusion however can be nonspecific. Clinical correlation recommended. Dr. Lawrence Pandya DO (Electronically Signed) Final Date: 13 January 2022 12:54
--- NOTE | 2022-01-16 09:02 | P.DS ---
Providers Date of admission: 01/12/22 10:28 Expected date of discharge: 01/13/22 Attending physician: Alvin Frazier Consults: 01/12/22 10:26 Consult Physician Urgent Consulting Provider: Minh Jones Consult Reason/Comments: cp Do you want consulting provider notified?: Yes Primary care physician: Lora Cobb Hospital Course: Discharge diagnosis Episode of chest pain, started at 9 PM last night patient is still having chest pain on and off Underlying history of coronary artery disease with history of angioplasty and stent placement one month ago Underlying history of hypertension Underlying history of hyperlipidemia Underlying history of COPD Hospital course Marcel Jo, is a 61-year-old male who presented to [facility] emergency room with a chief complaint of chest pain. Patient has a known history of coronary artery disease and underwent cardiac catheterization with angioplasty and stent placement one month ago. He stated that his chest pain started at 9 PM last night he describes a severe pain in the midsternum area, which he stated that it was similar to his pain prior to coming to the hospital last month. Patient denies any radiation of the pain he denies any nausea vomiting or diaphoresis. There is no shortness of breath or dizziness. He was evaluated in the emergency room vital examination on presentation revealed a temperature of 97.8 pulse 67 respiration 18 blood pressure 155/91 pulse ox 98% on room air Laboratory data revealed a white blood count of 10.6 hemoglobin 16.5 platelet count 223 d-dimer 0.36 troponin level less than 0.012 creatinine 0.7 Testing in the emergency room revealed EKG revealed sinus rhythm with left axis deviation Patient was admitted to medical floor for further evaluation and treatment On 01/13/2022 patient is status post dobutamine stress echocardiogram. Per cardiology acute coronary event has been ruled out patient to follow-up with cardiology services outpatient Patient Condition at Discharge: Stable Plan - Discharge Summary New Discharge Prescriptions: Continue Metoprolol Succinate (ER) [Toprol XL] 50 mg PO DAILY Clopidogrel [Plavix] 75 mg PO DAILY #30 tab Montelukast [Singulair] 10 mg PO HS Aspirin EC [Ecotrin Low Dose] 81 mg PO DAILY Famotidine [Pepcid] 20 mg PO BID Nitroglycerin Sl Tabs [Nitrostat] 0.4 mg SL Q5M PRN #25 tab PRN Reason: Chest Pain Isosorbide Mononitrate ER [Imdur] 60 mg PO DAILY Atorvastatin Calcium [Lipitor] 80 mg PO HS Ipratropium-Albuterol Nebulize [Duoneb 0.5 mg-3 mg/3 ml Soln] 3 ml INHALATION RT-Q4H PRN ml PRN Reason: Shortness Of Breath Or Wheezing Budesonide [Pulmicort] 1 mg INHALATION RT-BID ml Albuterol Sulfate [Proair Hfa] 1 - 2 puff INHALATION RT-Q4H PRN PRN Reason: Shortness Of Breath Albuterol Nebulized [Ventolin Nebulized] 2.5 mg INHALATION RT-Q4H PRN PRN Reason: Shortness Of Breath hydroCHLOROthiazide 12.5 mg PO DAILY Discharge Medication List Metoprolol Succinate (ER) [Toprol XL] 50 mg PO DAILY 10/30/20 [History] Clopidogrel [Plavix] 75 mg PO DAILY #30 tab 11/02/20 [Rx] Montelukast [Singulair] 10 mg PO HS 11/23/20 [History] Nitroglycerin Sl Tabs [Nitrostat] 0.4 mg SL Q5M PRN #25 tab 11/30/20 [Rx] Atorvastatin Calcium [Lipitor] 80 mg PO HS 03/25/21 [History] Isosorbide Mononitrate ER [Imdur] 60 mg PO DAILY 03/25/21 [History] Budesonide [Pulmicort] 1 mg INHALATION RT-BID ml 03/31/21 [Rx] Ipratropium-Albuterol Nebulize [Duoneb 0.5 mg-3 mg/3 ml Soln] 3 ml INHALATION RT-Q4H PRN ml 03/31/21 [Rx] Albuterol Nebulized [Ventolin Nebulized] 2.5 mg INHALATION RT-Q4H PRN 08/20/21 [History] Albuterol Sulfate [Proair Hfa] 1 - 2 puff INHALATION RT-Q4H PRN 08/20/21 [History] hydroCHLOROthiazide 12.5 mg PO DAILY 08/20/21 [History] Aspirin EC [Ecotrin Low Dose] 81 mg PO DAILY 12/13/21 [History] Famotidine [Pepcid] 20 mg PO BID 12/13/21 [History] Follow up Appointment(s)/Referral(s): Lora Cobb MD [Primary Care Provider] - 1-2 days Idris De Luna MD [STAFF PHYSICIAN] - 01/26/22 11:30 am Patient Instructions/Handouts: Chest Pain (DC) Discharge Disposition: HOME SELF-CARE
== END 2022-01-13 15:09 | disposition home or self-care (01) ==
LOC: EC 08:26 → 6NMEDSUR 10:28
PROVIDERS: ADMIT Internal Medicine; ATTEND Internal Medicine
DX: R07.89 Other chest pain (principal); I25.10 Atherosclerotic heart disease of native coronary artery without angina pectoris; J44.9 Chronic obstructive pulmonary disease, unspecified; E78.5 Hyperlipidemia, unspecified; I10 Essential (primary) hypertension; I25.2 Old myocardial infarction; F12.90 Cannabis use, unspecified, uncomplicated; I08.1 Rheumatic disorders of both mitral and tricuspid valves; I37.1 Nonrheumatic pulmonary valve insufficiency; Z95.5 Presence of coronary angioplasty implant and graft; Z79.82 Long term (current) use of aspirin; Z79.899 Other long term (current) drug therapy; Z79.02 Long term (current) use of antithrombotics/antiplatelets; Z96.653 Presence of artificial knee joint, bilateral; Z87.891 Personal history of nicotine dependence; Z80.1 Family history of malignant neoplasm of trachea, bronchus and lung; Z80.8 Family history of malignant neoplasm of other organs or systems; Z83.3 Family history of diabetes mellitus; Z82.49 Family history of ischemic heart disease and other diseases of the circulatory system
CPT/HCPCS: 96376 ×2; 96374; 96375; 99285; 36415; 94640 ×2; 94760; 93005; 93306; 85379; 93351; 83880; 80061; 80053; 80048; 83735; 84484; 85025; 85610; 85730; 71046; G0378 ×2; J1250; J2270; J1885 ×2; Q9950

== ENCOUNTER 2022-06-22 11:20 | Observation (INO) | payer MEDICARE, OTHER ==
[2022-06-22 11:44] LABS: Basophils # (A) 0.1 k/uL (0-0.2); Basophils % (A) 1 %; Eosinophils # (A) 0.2 k/uL (0-0.7); Eosinophils % (A) 2 %; HCT 47.4 % (39.0-53.0); HGB 16.6 gm/dL (13.0-17.5); Lymphocytes # (A) 4.7 k/uL (1.0-4.8); Lymphocytes % (A) 39 %; MCH 30.6 pg (25.0-35.0); MCV 87.6 fL (80.0-100.0); Mean Platelet Volume 8.7; Monocytes # (A) 0.4 k/uL (0-1.0); Monocytes % (A) 4 %; Neutrophils # (A) 6.4 k/uL (1.3-7.7); Neutrophils % (A) 53 %; Platelet Count 215 k/uL (150-450); RBC 5.42 m/uL (4.30-5.90); RDW 13.4 % (11.5-15.5); WBC 12.1 k/uL (3.8-10.6)
[2022-06-22 11:54] LABS: ALT 27 U/L (4-49); AST 24 U/L (17-59); African American GFR (CKD) >90 (>60 ml/min/1.73 sqM); Albumin 4.7 g/dL (3.5-5.0); Alkaline Phosphatase 139 U/L (38-126); Anion Gap 13 mmol/L; Blood Urea Nitrogen 13 mg/dL (9-20); Calcium 9.5 mg/dL (8.4-10.2); Carbon Dioxide 22 mmol/L (22-30); Chloride 104 mmol/L (98-107); Glucose 109 mg/dL (74-99); Lipase 68 U/L (23-300); Magnesium 2.3 mg/dL (1.6-2.3); Non-African American GFR(CKD) >90 (>60 ml/min/1.73 sqM); Potassium 4.1 mmol/L (3.5-5.1); Sodium 139 mmol/L (137-145); Total Bilirubin 0.6 mg/dL (0.2-1.3); Total Protein 7.8 g/dL (6.3-8.2)
--- NOTE | 2022-06-22 11:55 | ED ---
General Adult HPI - General Chief complaint: Chest Pain Stated complaint: chest pain Time Seen by Provider: 06/22/22 11:30 Source: EMS Mode of arrival: EMS Limitations: no limitations - History of Present Illness Initial comments: 61-year-old male with past history of COPD, coronary artery disease, hypertension who presents to the emergency department reporting chest pain. States it was present when he woke up this morning around 8:309:00. Describes it as a substernal pressure with radiation to the left shoulder. He has associated nausea. He did take a nitro and did have some improvement in his pain. He also took a breathing treatment. Has history of COPD and prior to being on medications he states that he was vented 3 times. He has not had any respiratory failure in several years. He denies any fevers, chills or cough. No other alleviating, precipitating or modifying factors - Related Data Home Medications Medication Instructions Recorded Confirmed Metoprolol Succinate (ER) [Toprol 50 mg PO DAILY 10/30/20 06/25/22 XL] Montelukast [Singulair] 10 mg PO HS 11/23/20 06/25/22 Atorvastatin Calcium [Lipitor] 80 mg PO HS 03/25/21 06/25/22 Isosorbide Mononitrate ER [Imdur] 60 mg PO DAILY 03/25/21 06/25/22 Albuterol Nebulized [Ventolin 2.5 mg INHALATION RT-Q4H PRN 08/20/21 06/25/22 Nebulized] Albuterol Sulfate [Proair Hfa] 1 - 2 puff INHALATION RT-Q4H PRN 08/20/21 06/25/22 hydroCHLOROthiazide 12.5 mg PO DAILY 08/20/21 06/25/22 Aspirin EC [Ecotrin Low Dose] 81 mg PO DAILY 12/13/21 06/25/22 Famotidine [Pepcid] 20 mg PO BID 12/13/21 06/25/22 Previous Rx's Medication Instructions Recorded Clopidogrel [Plavix] 75 mg PO DAILY #30 tab 11/02/20 Nitroglycerin Sl Tabs [Nitrostat] 0.4 mg SL Q5M PRN #25 tab 11/30/20 Budesonide [Pulmicort] 1 mg INHALATION RT-BID ml 03/31/21 Ipratropium-Albuterol Nebulize 3 ml INHALATION RT-Q4H PRN ml 03/31/21 [Duoneb 0.5 mg-3 mg/3 ml Soln] Allergies Allergy/AdvReac Type Severity Reaction Status Date / Time levofloxacin [From Levaquin] AdvReac Nausea & Verified 06/25/22 14:28 Vomiting Review of Systems ROS Statement: Those systems with pertinent positive or pertinent negative responses have been documented in the HPI. ROS Other: All systems not noted in ROS Statement are negative. Past Medical History Past Medical History: Coronary Artery Disease (CAD), COPD, Hyperlipidemia, Hypertension, Myocardial Infarction ([place]) Additional Past Medical History / Comment(s): Pt states he has hx of 3 respiratory arrests and was vented, generalized arthritis, Last Myocardial Infarction Date:: History of Any Multi-Drug Resistant Organisms: None Reported Past Surgical History: Adenoidectomy, Heart Catheterization With Stent, Hernia Repair, Joint Replacement, Orthopedic Surgery, Tonsillectomy Additional Past Surgical History / Comment(s): R inguinal hernia repair, L rotator cuff repair, bialteral total knee arthroplasties, R shoulder spur removal, teeth extracted, colonoscopy-normal. third hernia repair, left side, stents x2 2020, stents x1 11/2021 Past Anesthesia/Blood Transfusion Reactions: No Reported Reaction Date of Last Stent Placement:: 2021 Past Psychological History: No Psychological Hx Reported Smoking Status: Former smoker Past Alcohol Use History: Occasional Past Drug Use History: Marijuana - Past Family History Father Family Medical History: Cancer Additional Family Medical History / Comment(s): Father of lung cancer at the age of 62. He was a smoker. Mother Family Medical History: Cancer, Diabetes Mellitus, Hypertension Additional Family Medical History / Comment(s): Mother at age 78 from brainstem cancer. Brother(s) Additional Family Medical History / Comment(s): Patient's 1 brother with history of AAA. Patient has 4 sisters and he does not know any of their medical history. Patient's 1 son and 1 daughter living. He had one daughter that at 7 weeks old from a congenital heart. General Exam Limitations: no limitations General appearance: alert, in no apparent distress Head exam: Present: atraumatic, normocephalic, normal inspection Eye exam: Present: normal appearance, PERRL, EOMI. Absent: scleral icterus, conjunctival injection, periorbital swelling ENT exam: Present: normal exam, mucous membranes moist Neck exam: Present: normal inspection. Absent: tenderness, meningismus, lymphadenopathy Respiratory exam: Present: wheezes. Absent: respiratory distress, rales, rhonchi, stridor Cardiovascular Exam: Present: regular rate, normal rhythm, normal heart sounds. Absent: systolic murmur, diastolic murmur, rubs, gallop, clicks GI/Abdominal exam: Present: soft, normal bowel sounds. Absent: distended, tenderness, guarding, rebound, rigid Extremities exam: Present: normal inspection, full ROM, normal capillary refill. Absent: tenderness, pedal edema, joint swelling, calf tenderness Back exam: Present: normal inspection Neurological exam: Present: alert, oriented X3, CN II-XII intact Psychiatric exam: Present: normal affect, normal mood Skin exam: Present: warm, dry, intact, normal color. Absent: rash Course Vital Signs 06/22/22 06/22/22 06/22/22 11:26 13:26 13:58 Temperature 97 F L 97.1 F L Pulse Rate 79 60 Respiratory 19 18 Rate Blood Pressure 141/104 125/81 O2 Sat by Pulse 97 98 Oximetry EKG Findings - EKG Comments: EKG Findings:: EKG demonstrates sinus rhythm with a rate of 66. UT interval of 172. QRS 93. QTC is 376. No acute ST segment elevations or depressions concerning for ischemic changes Medical Decision Making - Medical Decision Making Was pt. sent in by a medical professional or institution (, PA, PACU NURSE, urgent care, hospital, or fdc...) When possible be specific @ -No Did you speak to anyone other than the patient for history (EMS, parent, family, police, friend...)? What history was obtained from this source @ -No Did you review nursing and triage notes (agree or disagree)? Why? @ -I reviewed and agree with nursing and triage notes Were old charts reviewed (outside hosp., previous admission, EMS record, old EKG, old radiological studies, urgent care reports/EKG's, fdc records)? Report findings @ -Old charts were reviewed Differential Diagnosis (chest pain, altered mental status, abdominal pain women, abdominal pain men, vaginal bleeding, weakness, fever, dyspnea, syncope, headache, dizziness, GI bleed, back pain, seizure, CVA, palpatations, mental health, musculoskeletal)? @ -ACS, NSTEMI, STEMI, pleurisy, GERD EKG interpreted by me (3pts min.). @ -As above X-rays interpreted by me (1pt min.). @ -yes CT interpreted by me (1pt min.). @ -None done U/S interpreted by me (1pt. min.). @ -None done What testing was considered but not performed or refused? (CT, X-rays, U/S, labs)? Why? @ -None What meds were considered but not given or refused? Why? @ -None Did you discuss the management of the patient with other professionals (professionals i.e. Dr., PA, PACU NURSE, lab, RT, psych nurse, psychologist social, breakfast cook, teacher, communications officer, catalytic case operator)? Give summary @ -hospitalist Was smoking cessation discussed for >3mins.? @ -No Was critical care preformed (if so, how long)? @ -No Were there social determinants of health that impacted care today? How? (Homelessness, low income, unemployed, alcoholism, drug addiction, transportation, low edu. Level, literacy, decrease access to med. care, [place] [facility], rehab)? @ -No Was there de-escalation of care discussed even if they declined (Discuss DNR or withdrawal of care, Hospice)? DNR status @ -No What co-morbidities impacted this encounter? (DM, HTN, Smoking, COPD, CAD, Cancer, CVA, ARF, Chemo, Hep., AIDS, mental health diagnosis, sleep apnea, morbid obesity)? @ -acs Was patient admitted / discharged? Hospital course, mention meds given and route, prescriptions, significant lab abnormalities, going to OR and other pertinent info. @ -admitted Undiagnosed new problem with uncertain prognosis? @ -yes Drug Therapy requiring intensive monitoring for toxicity (Heparin, Nitro, Insulin, Cardizem)? @ -No Were any procedures done? @ -No Diagnosis/symptom? @ -acute chest pain Acute, or Chronic, or Acute on Chronic? @ -acute Uncomplicated (without systemic symptoms) or Complicated (systemic symptoms)? @ -complicated Side effects of treatment? @ -No Exacerbation, Progression, or Severe Exacerbation? @ -No Poses a threat to life or bodily function? How? (Chest pain, [place], [place], pneumonia, PE, COPD, DKA, ARF, appy, cholecystitis, CVA, Diverticulitis, Homicidal, S uicidal, threat to staff... and all critical care pts) @ -yes - Lab Data Result diagrams: 06/24/22 05:36 06/23/22 06:00 Lab Results 06/22/22 06/22/22 06/22/22 Range/Units 11:33 11:33 11:33 WBC 12.1 H (3.8-10.6) k/uL RBC 5.42 (4.30-5.90) m/uL Hgb 16.6 (13.0-17.5) gm/dL Hct 47.4 (39.0-53.0) % MCV 87.6 (80.0-100.0) fL MCH 30.6 (25.0-35.0) pg MCHC 35.0 (31.0-37.0) g/dL RDW 13.4 (11.5-15.5) % Plt Count 215 (150-450) k/uL MPV 8.7 Neutrophils % 53 % Lymphocytes % 39 % Monocytes % 4 % Eosinophils % 2 % Basophils % 1 % Neutrophils # 6.4 (1.3-7.7) k/uL Lymphocytes # 4.7 (1.0-4.8) k/uL Monocytes # 0.4 (0-1.0) k/uL Eosinophils # 0.2 (0-0.7) k/uL Basophils # 0.1 (0-0.2) k/uL PT 9.9 (9.0-12.0) sec INR 0.9 (<1.2) APTT 24.8 (22.0-30.0) sec D-Dimer 0.31 (<0.60) mg/L FEU Sodium 139 (137-145) mmol/L Potassium 4.1 (3.5-5.1) mmol/L Chloride 104 (98-107) mmol/L Carbon Dioxide 22 (22-30) mmol/L Anion Gap 13 mmol/L BUN 13 (9-20) mg/dL Creatinine 0.77 (0.66-1.25) mg/dL Est GFR (CKD-EPI)AfAm >90 (>60 ml/min/1.73 sqM) Est GFR (CKD-EPI)NonAf >90 (>60 ml/min/1.73 sqM) Glucose 109 H (74-99) mg/dL Calcium 9.5 (8.4-10.2) mg/dL Magnesium 2.3 (1.6-2.3) mg/dL Total Bilirubin 0.6 (0.2-1.3) mg/dL AST 24 (17-59) U/L ALT 27 (4-49) U/L Alkaline Phosphatase 139 H (38-126) U/L Troponin I (0.000-0.034) ng/mL NT-Pro-B Natriuret Pep pg/mL Total Protein 7.8 (6.3-8.2) g/dL Albumin 4.7 (3.5-5.0) g/dL Lipase 68 (23-300) U/L 06/22/22 06/22/22 Range/Units 11:33 11:33 WBC (3.8-10.6) k/uL RBC (4.30-5.90) m/uL Hgb (13.0-17.5) gm/dL Hct (39.0-53.0) % MCV (80.0-100.0) fL MCH (25.0-35.0) pg MCHC (31.0-37.0) g/dL RDW (11.5-15.5) % Plt Count (150-450) k/uL MPV Neutrophils % % Lymphocytes % % Monocytes % % Eosinophils % % Basophils % % Neutrophils # (1.3-7.7) k/uL Lymphocytes # (1.0-4.8) k/uL Monocytes # (0-1.0) k/uL Eosinophils # (0-0.7) k/uL Basophils # (0-0.2) k/uL PT (9.0-12.0) sec INR (<1.2) APTT (22.0-30.0) sec D-Dimer (<0.60) mg/L FEU Sodium (137-145) mmol/L Potassium (3.5-5.1) mmol/L Chloride (98-107) mmol/L Carbon Dioxide (22-30) mmol/L Anion Gap mmol/L BUN (9-20) mg/dL Creatinine (0.66-1.25) mg/dL Est GFR (CKD-EPI)AfAm (>60 ml/min/1.73 sqM) Est GFR (CKD-EPI)NonAf (>60 ml/min/1.73 sqM) Glucose (74-99) mg/dL Calcium (8.4-10.2) mg/dL Magnesium (1.6-2.3) mg/dL Total Bilirubin (0.2-1.3) mg/dL AST (17-59) U/L ALT (4-49) U/L Alkaline Phosphatase (38-126) U/L Troponin I <0.012 (0.000-0.034) ng/mL NT-Pro-B Natriuret Pep 40 pg/mL Total Protein (6.3-8.2) g/dL Albumin (3.5-5.0) g/dL Lipase (23-300) U/L Disposition Clinical Impression: Chest pain Disposition: ADMITTED IP TO THIS [facility] Condition: Stable Is patient prescribed a controlled substance at d/c from ED?: No Time of Disposition: 13:01 Decision to Admit Reason: Admit from EC Decision Date: 06/22/22 Decision Time: 13:01
--- NOTE | 2022-06-22 12:09 | XR ---
EXAMINATION TYPE: XR chest 2V DATE OF EXAM: 06/22/2022 COMPARISON: 01/12/2022 TECHNIQUE: PA and lateral views submitted. HISTORY: Chest pain FINDINGS: The lungs are clear and there is no pneumothorax, pleural effusion, or focal pneumonia. Heart size normal and no overt failure. Osseous structures demonstrate hypertrophic and degenerative changes of the spine. Postsurgical change left shoulder. Hyperinflation suggests COPD. Coronary artery stenting suggested. IMPRESSION: 1. No acute process. Correlate for COPD.
[2022-06-22 12:19] LABS: INR 0.9 (<1.2); Partial Thromboplastin Time 24.8 sec (22.0-30.0); Prothrombin Time 9.9 sec (9.0-12.0)
[2022-06-22] MEDS ORDERED: ACETAMINOPHEN TAB 500 MG TAB PO STA (12:52)
[2022-06-22] MEDS ORDERED: NALOXONE 0.4 MG/ML 1 ML VIAL IV PRN (13:01)
[2022-06-22] MEDS ORDERED: ALBUTEROL NEBULIZED 2.5 MG/3 ML INHALATION PRN (13:03)
[2022-06-22] MEDS: ASPIRIN 81 MG PO STA ×2 (13:24→13:26)
[2022-06-22] MEDS ORDERED: NITROGLYCERIN SL TABS 0.4 MG TAB SUBLINGUAL PRN ×2 (16:17→18:48)
[2022-06-22] MEDS ORDERED: MORPHINE SULFATE 4 MG/ML SYRINGE IVP PRN (16:18)
[2022-06-22] MEDS ORDERED: ALBUTEROL HFA INHALER INHALATION PRN (18:48)
--- NOTE | 2022-06-22 19:03 | P.HPIM ---
History of Present Illness H&P Date: 06/22/22 Marcel Jo, is a 61-year-old male who presented to [facility] emergency room with a chief complaint of chest pain He was evaluated in the emergency room vital examination on presentation revealed a temperature of 97 pulse 79 respiration 19 and blood pressure 141/104 pulse ox 97% on room air Laboratory data revealed a white blood count of 12.1 hemoglobin 16.6 platelet count 215 d-dimer 0.31 troponin less than 0.012 BUN 13 creatinine 0.77 lipase 68 Testing in the emergency room revealed chest x-ray done in the emergency room revealed hyperinflation of the lungs otherwise no acute process, EKG done in the emergency room revealed sinus rhythm with left axis deviation Patient was admitted to medical floor for further evaluation and treatment Past medical history is significant for history of coronary artery disease, with previous history of angioplasty and stent placement, history of COPD, history of hypertension, history of hyperlipidemia Past Medical History Past Medical History: Coronary Artery Disease (CAD), COPD, Hyperlipidemia, Hypertension, Myocardial Infarction ([place]) Additional Past Medical History / Comment(s): Pt states he has hx of 3 respiratory arrests and was vented, generalized arthritis, Last Myocardial Infarction Date:: History of Any Multi-Drug Resistant Organisms: None Reported Past Surgical History: Adenoidectomy, Heart Catheterization With Stent, Hernia Repair, Joint Replacement, Orthopedic Surgery, Tonsillectomy Additional Past Surgical History / Comment(s): R inguinal hernia repair, L rotator cuff repair, bialteral total knee arthroplasties, R shoulder spur rem oval, teeth extracted, colonoscopy-normal. third hernia repair, left side, stents x2 2020, stents x1 11/2021 Past Anesthesia/Blood Transfusion Reactions: No Reported Reaction Date of Last Stent Placement:: 2021 Past Psychological History: No Psychological Hx Reported Additional Psychological History / Comment(s): He uses no assistive devices. Smoking Status: Former smoker Past Alcohol Use History: Occasional Additional Past Alcohol Use History / Comment(s): patient quit smoking in 12/2019. He uses marijuana daily for pain. He is recovering alcoholic and he drinks alcohol rarely at this point. He has history of illicit drug use including Phen-Fen, LSD, cocaine, heroin and quit all of this 15 years ago. 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 Past Drug Use History: Marijuana Additional Drug Use History / Comment(s): He states in the past he has used marijuana, heroin, crystal meth, cocaine and crack but none of those drugs for about 15years - Past Family History Father Family Medical History: Cancer Additional Family Medical History / Comment(s): Father of lung cancer at the age of 62. He was a smoker. Mother Family Medical History: Cancer, Diabetes Mellitus, Hypertension Additional Family Medical History / Comment(s): Mother at age 78 from brainstem cancer. Brother(s) Additional Family Medical History / Comment(s): Patient's 1 brother with history of AAA. Patient has 4 sisters and he does not know any of their medical history. Patient's 1 son and 1 daughter living. He had one daughter that at 7 weeks old from a congenital heart. Medications and Allergies Home Medications Medication Instructions Recorded Confirmed Type Metoprolol Succinate (ER) [Toprol 50 mg PO DAILY 10/30/20 06/22/22 History XL] Clopidogrel [Plavix] 75 mg PO DAILY #30 tab 11/02/20 06/22/22 Rx Montelukast [Singulair] 10 mg PO HS 11/23/20 06/22/22 History Nitroglycerin Sl Tabs [Nitrostat] 0.4 mg SL Q5M PRN #25 tab 11/30/20 06/22/22 Rx Atorvastatin Calcium [Lipitor] 80 mg PO HS 03/25/21 06/22/22 History Isosorbide Mononitrate ER [Imdur] 60 mg PO DAILY 03/25/21 06/22/22 History Budesonide [Pulmicort] 1 mg INHALATION RT-BID ml 03/31/21 06/22/22 Rx Ipratropium-Albuterol Nebulize 3 ml INHALATION RT-Q4H PRN ml 03/31/21 06/22/22 Rx [Duoneb 0.5 mg-3 mg/3 ml Soln] Albuterol Nebulized [Ventolin 2.5 mg INHALATION RT-Q4H PRN 08/20/21 06/22/22 History Nebulized] Albuterol Sulfate [Proair Hfa] 1 - 2 puff INHALATION RT-Q4H PRN 08/20/21 06/22/22 History hydroCHLOROthiazide 12.5 mg PO DAILY 08/20/21 06/22/22 History Aspirin EC [Ecotrin Low Dose] 81 mg PO DAILY 12/13/21 06/22/22 History Famotidine [Pepcid] 20 mg PO BID 12/13/21 06/22/22 History Allergies Allergy/AdvReac Type Severity Reaction Status Date / Time levofloxacin [From Levaquin] AdvReac Nausea & Verified 06/22/22 12:07 Vomiting Physical Exam Vitals: Vital Signs Temp Pulse Pulse Resp BP BP Pulse Ox 06/22/22 16:04 66 16 135/81 98 06/22/22 14:26 97.6 F 61 16 121/76 96 06/22/22 13:58 97.1 F L 06/22/22 13:26 60 18 125/81 98 06/22/22 11:26 97 F L 79 19 141/104 97 Intake and Output 06/22/22 06/22/22 06/22/22 06:59 14:59 22:59 Other: Weight 88.904 kg In general patient is alert and oriented x 3 in no distress HEENT head normocephalic and atraumatic Neck is supple no JVD no goiter no lymphadenopathy no carotid bruit Chest examination is clear to auscultation no crackles no wheezing Cardiac exam reveals regular heart sounds S1 and S2 no gallops no murmurs Abdomen is soft nontender no organomegaly with normal bowel sounds Extremity exam reveals no edema no cyanosis or clubbing Neurological examination reveals no gross focal deficits Results CBC & Chem 7: 06/22/22 11:33 06/22/22 11:33 Labs: Abnormal Lab Results - Last 24 Hours (Table) 06/22/22 06/22/22 Range/Units 11:33 11:33 WBC 12.1 H (3.8-10.6) k/uL Glucose 109 H (74-99) mg/dL Alkaline Phosphatase 139 H (38-126) U/L Thrombosis Risk Factor Assmnt - Choose All That Apply Each Factor Represents 1 point: Age 41-60 years Thrombosis Risk Factor Assessment Total Risk Factor Score: 1 Thrombosis Risk Factor Assessment Level: Low Risk Assessment and Plan Plan: Episodes of chest pain, patient is admitted to telemetry floor, serial EKG and cardiac enzymes ordered cardiology consultation requested Known history of coronary artery disease with previous history of angioplasty and stent placement Underlying history of COPD Underlying history of hypertension Underlying history of hyperlipidemia Underlying history of osteoarthritis Per patient history of narcotic addiction in the past At this time patient is admitted to telemetry floor Serial EKG and cardiac enzymes ordered Home medications reviewed and reordered Cardiology consultation was requested CODE STATUS per patient no code Will follow closely
[2022-06-22] MEDS: FAMOTIDINE 20 MG TAB PO SCH (19:51)
[2022-06-22] MEDS: MONTELUKAST 10 MG TAB PO SCH (19:51)
[2022-06-22] MEDS: HEPARIN SODIUM,PORCINE/PF 5,000 UNIT/0.5 ML SYRINGE SQ SCH (19:51)
[2022-06-22] MEDS: ATORVASTATIN 80 MG TAB PO SCH (19:51)
[2022-06-22] MEDS: BUDESONIDE 1 MG/2 ML NEBU INHALATION SCH (21:04)
[2022-06-23] MEDS: BUDESONIDE 1 MG/2 ML NEBU INHALATION SCH ×2 (09:12→19:37)
[2022-06-23] MEDS: ASPIRIN 81 MG PO SCH (09:16)
[2022-06-23] MEDS: FAMOTIDINE 20 MG TAB PO SCH ×2 (09:16→20:11)
[2022-06-23] MEDS: CLOPIDOGREL 75 MG TAB PO SCH (09:16)
[2022-06-23] MEDS: HEPARIN SODIUM,PORCINE/PF 5,000 UNIT/0.5 ML SYRINGE SQ SCH (09:16)
[2022-06-23] MEDS ORDERED: HEPARIN SODIUM 1,000 UN/ML (10ML VL) IV PRN (09:23)
[2022-06-23] MEDS ORDERED: HEPARIN SODIUM 1,000 UN/ML (10ML VL) IV ONE (09:23)
[2022-06-23] MEDS ORDERED: ALPRAZolam 0.5 MG TAB PO PRN (09:24)
[2022-06-23] MEDS ORDERED: ALPRAZolam 0.25 MG TAB PO PRN (09:24)
[2022-06-23] MEDS ORDERED: NITROGLYCERIN SL TABS 0.4 MG TAB SUBLINGUAL PRN (09:24)
[2022-06-23 09:29] LABS: Basophils # (A) 0.08 X 10*3/uL (0.00-0.10); Basophils % (A) 0.9 %; Eosinophils # (A) 0.19 X 10*3/uL (0.04-0.35); Eosinophils % (A) 2.2 %; HCT 43.6 % (39.6-50.0); HGB 14.7 g/dL (13.0-17.0); Immature Grans, Automated 0.6 %; Lymphocytes # (A) 2.78 X 10*3/uL (0.90-5.00); Lymphocytes % (A) 32.9 %; MCH 29.8 pg (27.0-32.0); MCHC 33.7 g/dL (32.0-37.0); MCV 88.3 fL (80.0-97.0); Mean Platelet Volume 11.2 fL (9.5-12.2); Monocytes # (A) 0.56 X 10*3/uL (0.20-1.00); Monocytes % (A) 6.6 %; NRBC Per 100 WBC 0 /100 WBCS (0.0-0.0); Neutrophils % (A) 56.8 %; Platelet Count 214 X 10*3/uL (140-440); RBC 4.94 X 10*6/uL (4.40-5.60); RDW 13.4 % (11.5-14.5); WBC 8.46 X 10*3/uL (4.50-10.00)
[2022-06-23] MEDS ORDERED: ALBUTEROL NEBULIZED 2.5 MG/3 ML INHALATION PRN (09:45)
[2022-06-23] MEDS ORDERED: IPRATROPIUM 0.5 MG/2.5 ML NEBU INHALATION PRN (09:45)
[2022-06-23 09:47] LABS: African American GFR (CKD) 99.4 (60.0-200.0); Albumin/Globulin Ratio 1.9 (1.60-3.17); Anion Gap 8.8 mmol/L (10.00-18.00); BUN/Creat Ratio 14.72 Ratio (12.00-20.00); Blood Urea Nitrogen 14.1 mg/dL (9.0-27.0); Calcium 9.3 mg/dL (8.7-10.3); Carbon Dioxide 25.5 mmol/L (20.0-27.5); Globulin 2.1 g/dL (1.6-3.3); Non-African American GFR(CKD) 85.8 (60.0-200.0); Potassium 4.3 mmol/L (3.5-5.5); Total Bilirubin 0.4 mg/dL (0.30-1.20); Total Protein 6.1 g/dL (6.2-8.2)
[2022-06-23 09:55] LABS: Basophils # (A) 0.1 k/uL (0-0.2); Basophils % (A) 1 %; Eosinophils # (A) 0.1 k/uL (0-0.7); Eosinophils % (A) 2 %; HCT 45.3 % (39.0-53.0); HGB 15.4 gm/dL (13.0-17.5); Lymphocytes # (A) 2.6 k/uL (1.0-4.8); Lymphocytes % (A) 31 %; MCH 30.5 pg (25.0-35.0); MCHC 34.1 g/dL (31.0-37.0); MCV 89.4 fL (80.0-100.0); Mean Platelet Volume 8.2; Monocytes # (A) 0.4 k/uL (0-1.0); Monocytes % (A) 5 %; Neutrophils # (A) 5.2 k/uL (1.3-7.7); Neutrophils % (A) 61 %; Platelet Count 206 k/uL (150-450); RBC 5.07 m/uL (4.30-5.90); RDW 13.3 % (11.5-15.5); WBC 8.6 k/uL (3.8-10.6)
[2022-06-23] MEDS: HEPARIN SOD,PORK IN 0.45% NACL 25,000 UNIT in 0.45% NACL 1 250ML.BAG IV SCH (09:59)
[2022-06-23 10:03] LABS: INR 0.9 (<1.2); Partial Thromboplastin Time 24.6 sec (22.0-30.0); Prothrombin Time 9.9 sec (9.0-12.0)
--- NOTE | 2022-06-23 10:05 | P.CRDCN ---
History of Present Illness Consult date: 06/23/22 History of present illness: HISTORY OF PRESENT ILLNESS: This is a 61-year-old male with a past medical history significant for coronary artery disease with previous stenting of the LAD and RCA, hypertension, hyperlipidemia, COPD, and former nicotine dependence. Patient follows in the office with Dr. De Luna. We have been asked to see the patient in consultation for chest pain. Patient examined at the bedside. patient presented to the hospital for chief complaint of chest pain. Patient states that he woke up yesterday and was having chest discomfort. Initially he thought this was due to his breathing so he did a breathing treatment home but his pain persisted. He states that he had pain for an additional 10 minutes and then decided to take a sublingual nitro. He states within about 5 minutes after taking the sublingual nitro his pain had resolved. Patient states that he has been feeling lightheaded over the weekend. He denies any syncopal episodes at home. Currently when the patient was in triage, he had a syncopal episode. No further episodes of syncope since coming to the hospital. the patient did have another episode of chest pain after being admitted to the hospital. He received IV morphine which helped with his pain. An EKG and troponin were obtained at that time which were unremarkable. The patient states his pain feels exactly the same as his episodes in the past when he required stenting. At the time of examination, the patient currently denies chest pain or pressure. * EKG reveals sinus mechanism with no signs of acute ischemia * Chest xray negative for acute process. Correlate for COPD. * Laboratory data: W BC 8.6. Hemoglobin 15.4. Platelet count 206. Sodium 140. Potassium 4.3. BUN 14. Creatinine 1.0. Troponin negative 4 * Current home cardiac medications include aspirin 81 mg daily, atorvastatin 80 mg at night, Plavix 75 mg daily, Imdur 60 mg daily, metoprolol succinate 50 mg daily, and hydrochlorothiazide 12.5 mg daily * Most recent echocardiogram obtained in December 2021 revealed ejection fraction 55% * patient underwent dobutamine stress test in December 2021 which was negative for ischemia * Cardiac catheterization history: November 2021 revealing patent stent in the mid RCA. Intermediate lesion involving the mid LAD. IFR was ischemic. Patient underwent stenting of the mid LAD. REVIEW OF SYSTEMS: At the time of my exam: CONSTITUTIONAL: Denies fever or chills. HEENT: Denies blurred vision, vision changes, or eye pain. Denies hemoptysis CARDIOVASCULAR: Denies chest pain. Denies orthopnea. Denies PND. Denies palpitations RESPIRATORY: Denies shortness of breath. GASTROINTESTINAL: Denies abdominal pain. Denies nausea or vomiting. HEMATOLOGIC: Denies bleeding disorders. GENITOURINARY: Denies any blood in urine. SKIN: Denies pruitis. Denies rash. PHYSICAL EXAM: VITAL SIGNS: Reviewed. GENERAL: Well-developed in no acute distress. HEENT: Head is normocephalic. Pupils are equal, round. Sclerae anicteric. Mucous membranes of the mouth are moist. Neck supple. No JVD or thyromegaly LUNGS: Respirations even and unlabored. Lungs essentially clear to auscultation bilaterally. HEART: Regular rate and rhythm. S1 and S2 heard. ABDOMEN: Soft. Nondistended. Nontender. EXTREMITIES: Normal range of motion. No clubbing or cyanosis. Peripheral pulses intact. No lower extremity edema NEUROLOGIC: Awake and alert. Oriented x 3. ASSESSMENT: Unstable angina Syncopal episode in ER Coronary artery disease with previous stenting of the RCA and most recently to the LAD in November 2021 Hypertension Hyperlipidemia COPD Former nicotine dependence PLAN: Obtain 2-D echo to assess cardiac structure and function Resume home cardiac medications Begin IV heparin Continue telemetry monitoring to assess for any arrhythmias Nothing by mouth at midnight Patient to undergo cardiac catheterization tomorrow with Dr. De Luna Further recommendations pending patient's course Nurse practitioner note has been reviewed by physician. Signing provider agrees with the documented findings, assessment, and plan of care. Past Medical History Past Medical History: Coronary Artery Disease (CAD), COPD, Hyperlipidemia, Hypertension, Myocardial Infarction (AR) Additional Past Medical History / Comment(s): Pt states he has hx of 3 respiratory arrests and was vented, generalized arthritis, Last Myocardial Infarction Date:: History of Any Multi-Drug Resistant Organisms: None Reported Past Surgical History: Adenoidectomy, Heart Catheterization With Stent, Hernia Repair, Joint Replacement, Orthopedic Surgery, Tonsillectomy Additional Past Surgical History / Comment(s): R inguinal hernia repair, L rotator cuff repair, bialteral total knee arthroplasties, R shoulder spur removal, teeth extracted, colonoscopy-normal. third hernia repair, left side, stents x2 2020, stents x1 11/2021 Past Anesthesia/Blood Transfusion Reactions: No Reported Reaction Date of Last Stent Placement:: 2021 Past Psychological History: No Psychological Hx Reported Additional Psychological History / Comment(s): He uses no assistive devices. Smoking Status: Former smoker Past Alcohol Use History: Occasional Additional Past Alcohol Use History / Comment(s): patient quit smoking in 12/2019. He uses marijuana daily for pain. He is recovering alcoholic and he drinks alcohol rarely at this point. He has history of illicit drug use includ ing Phen-Fen, LSD, cocaine, heroin and quit all of this 15 years ago. 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 Past Drug Use History: Marijuana Additional Drug Use History / Comment(s): He states in the past he has used marijuana, heroin, crystal meth, cocaine and crack but none of those drugs for about 15years - Past Family History Father Family Medical History: Cancer Additional Family Medical History / Comment(s): Father of lung cancer at the age of 62. He was a smoker. Mother Family Medical History: Cancer, Diabetes Mellitus, Hypertension Additional Family Medical History / Comment(s): Mother at age 78 from brainstem cancer. Brother(s) Additional Family Medical History / Comment(s): Patient's 1 brother with history of AAA. Patient has 4 sisters and he does not know any of their medical history. Patient's 1 son and 1 daughter living. He had one daughter that at 7 weeks old from a congenital heart. Medications and Allergies Home Medications Medication Instructions Recorded Confirmed Type Metoprolol Succinate (ER) [Toprol 50 mg PO DAILY 10/30/20 06/22/22 History XL] Clopidogrel [Plavix] 75 mg PO DAILY #30 tab 11/02/20 06/22/22 Rx Montelukast [Singulair] 10 mg PO HS 11/23/20 06/22/22 History Nitroglycerin Sl Tabs [Nitrostat] 0.4 mg SL Q5M PRN #25 tab 11/30/20 06/22/22 Rx Atorvastatin Calcium [Lipitor] 80 mg PO HS 03/25/21 06/22/22 History Isosorbide Mononitrate ER [Imdur] 60 mg PO DAILY 03/25/21 06/22/22 History Budesonide [Pulmicort] 1 mg INHALATION RT-BID ml 03/31/21 06/22/22 Rx Ipratropium-Albuterol Nebulize 3 ml INHALATION RT-Q4H PRN ml 03/31/21 06/22/22 Rx [Duoneb 0.5 mg-3 mg/3 ml Soln] Albuterol Nebulized [Ventolin 2.5 mg INHALATION RT-Q4H PRN 08/20/21 06/22/22 History Nebulized] Albuterol Sulfate [Proair Hfa] 1 - 2 puff INHALATION RT-Q4H PRN 08/20/21 06/22/22 History hydroCHLOROthiazide 12.5 mg PO DAILY 08/20/21 06/22/22 History Aspirin EC [Ecotrin Low Dose] 81 mg PO DAILY 12/13/21 06/22/22 History Famotidine [Pepcid] 20 mg PO BID 12/13/21 06/22/22 History Allergies Allergy/AdvReac Type Severity Reaction Status Date / Time levofloxacin [From Levaquin] AdvReac Nausea & Verified 06/22/22 12:07 Vomiting Physical Exam Vitals: Vital Signs Temp Pulse Pulse Resp BP BP Pulse Ox 06/23/22 06:50 98 F 63 16 128/78 97 06/23/22 02:53 98.2 F 70 17 109/71 95 06/22/22 21:23 67 06/22/22 21:04 67 06/22/22 20:00 16 06/22/22 19:31 97.9 F 62 16 114/69 95 06/22/22 16:04 66 16 135/81 98 06/22/22 14:26 97.6 F 61 16 121/76 96 06/22/22 13:58 97.1 F L 06/22/22 13:26 60 18 125/81 98 06/22/22 11:26 97 F L 79 19 141/104 97 Intake and Output 06/22/22 06/23/22 06/23/22 22:59 06:59 14:59 Intake Total 0 Balance 0 Intake: Oral 0 Other: Voiding Method Toilet # Voids 2 2 Results 06/23/22 09:34 06/23/22 06:00 Cardiac Enzymes 06/22/22 06/22/22 06/22/22 Range/Units 11:33 11:33 14:46 AST 24 (17-59) U/L Troponin I <0.012 <0.012 (0.000-0.034) ng/mL 06/22/22 06/22/22 06/23/22 Range/Units 16:46 18:47 06:00 AST 15 (17-59) U/L Troponin I <0.012 <0.012 (0.000-0.034) ng/mL Coagulation 06/22/22 Range/Units 11:33 PT 9.9 (9.0-12.0) sec APTT 24.8 (22.0-30.0) sec CBC 06/22/22 06/23/22 06/23/22 Range/Units 11:33 06:00 09:34 WBC 12.1 H 8.46 8.6 (3.8-10.6) k/uL RBC 5.42 4.94 5.07 (4.30-5.90) m/uL Hgb 16.6 14.7 15.4 (13.0-17.5) gm/dL Hct 47.4 43.6 45.3 (39.0-53.0) % Plt Count 215 214 206 (150-450) k/uL Comprehensive Metabolic Panel 06/22/22 06/23/22 Range/Units 11:33 06:00 Sodium 139 140 (137-145) mmol/L Potassium 4.1 4.3 (3.5-5.1) mmol/L Chloride 104 106 (98-107) mmol/L Carbon Dioxide 22 25.5 (22-30) mmol/L BUN 13 14.1 (9-20) mg/dL Creatinine 0.77 1.0 (0.66-1.25) mg/dL Glucose 109 H 100 (74-99) mg/dL Calcium 9.5 9.3 (8.4-10.2) mg/dL AST 24 15 (17-59) U/L ALT 27 20 (4-49) U/L Alkaline Phosphatase 139 H 112 (38-126) U/L Total Protein 7.8 6.1 L (6.3-8.2) g/dL Albumin 4.7 4.0 (3.5-5.0) g/dL Current Medications Generic Name Dose Route Start Last Admin Trade Name Freq PRN Reason Stop Dose Admin Albuterol/Ipratropium 3 ml 06/22/22 13:03 Ipratropium-Albuterol 3 Ml Neb INHALATION RT-Q4H PRN Shortness Of Breath Or Wheezing Alprazolam 0.25 mg 06/23/22 09:24 Alprazolam 0.25 Mg Tab PO Q6HR PRN Mild Anxiety Alprazolam 0.5 mg 06/23/22 09:24 Alprazolam 0.5 Mg Tab PO Q6HR PRN Moderate Anxiety Aspirin 81 mg 06/23/22 09:00 06/23/22 09:16 Aspirin 81 Mg PO 81 mg DAILY PRASHANT Administration Aspirin 325 mg 06/24/22 05:00 Aspirin 325 Mg Tab PO 06/24/22 05:01 ONCE ONE Atorvastatin Calcium 80 mg 06/22/22 21:00 06/22/22 19:51 Atorvastatin 80 Mg Tab PO 80 mg HS PRASHANT Administration Atorvastatin Calcium 80 mg 06/24/22 05:00 Atorvastatin 80 Mg Tab PO 06/24/22 05:01 ONCE ONE Budesonide 1 mg 06/22/22 20:00 06/23/22 09:12 Budesonide 1 Mg/2 Ml Nebu INHALATION Not Given RT-BID PRASHANT Clopidogrel Bisulfate 75 mg 06/23/22 09:00 06/23/22 09:16 Clopidogrel 75 Mg Tab PO 75 mg DAILY PRASHANT Administration Famotidine 20 mg 06/22/22 21:00 06/23/22 09:16 Famotidine 20 Mg Tab PO 20 mg BID PRASHANT Administration Heparin Sodium (Porcine) 5,000 unit 06/22/22 21:00 06/23/22 09:16 Heparin Sodium,Porcine/Pf 5,000 Unit/0.5 Ml Syringe SQ Not Given Q12HR [facility] Heparin Sodium (Porcine) 0 unit 06/23/22 09:23 Heparin Sodium 1,000 Un/Ml (10ml Vl) IV PER PROTOCOL PRN Low PTT Protocol Hydrochlorothiazide 12.5 mg 06/23/22 09:00 Hydrochlorothiazide 12.5 Mg Cap PO DAILY PRASHANT Heparin Sodium/Sodium Chloride 250 mls @ 10 mls/hr 06/23/22 09:30 25,000 unit/ Sodium Chloride IV .Q24H PRASHANT Protocol 11.248 UNITS/KG/HR Heparin Sodium (Porcine) 10, 1,001 mls @ 999 mls/hr 06/24/22 07:00 000 unit/ Sodium Chloride IRRIGATION 06/24/22 23:00 ONCE PRN INTRA-OP Heparin Sodium (Porcine) 2,500 250.5 mls @ 250 mls/hr 06/24/22 07:00 unit/ Sodium Chloride IRRIGATION 06/24/22 23:00 ONCE PRN INTRA-OP Sodium Chloride 1,000 ml/ IV 1,000 mls @ 88.904 mls/hr 06/23/22 23:00 Solution IV .[id number] PRASHANT 1 ML/KG/HR Isosorbide Mononitrate 60 mg 06/23/22 09:00 Isosorbide Mononitrate Er 60 Mg Tab.Er.24h PO DAILY PRASHANT Metoprolol Succinate 50 mg 06/23/22 09:00 Metoprolol Succinate (Er) 50 Mg Tab.Er.24h PO DAILY PRASHANT Montelukast Sodium 10 mg 06/22/22 21:00 06/22/22 19:51 Montelukast 10 Mg Tab PO 10 mg HS PRASHANT Administration Naloxone HCl 0.2 mg 06/22/22 13:01 Naloxone 0.4 Mg/Ml 1 Ml Vial IV Q2M PRN Opioid Reversal Nitroglycerin 0.4 mg 06/23/22 09:24 Nitroglycerin Sl Tabs 0.4 Mg Tab SUBLINGUAL Q5M PRN Chest Pain Intake and Output 06/22/22 06/23/22 06/23/22 22:59 06:59 14:59 Intake Total 0 Balance 0 Intake: Oral 0 Other: Voiding Method Toilet # Voids 2 2 06/23/22 09:34 06/23/22 06:00
[2022-06-23] MEDS: METOPROLOL SUCCINATE (ER) 50 MG TAB.ER.24H PO SCH (10:09)
[2022-06-23] MEDS: ISOSORBIDE MONONITRATE ER 60 MG TAB.ER.24H PO SCH (10:10)
[2022-06-23] MEDS: hydroCHLOROthiazide 12.5 MG CAP PO SCH (10:10)
--- NOTE | 2022-06-23 10:33 | CA ---
Transthoracic Echo Report Name: Marcel Jo Age: 61 Gender: M : 1960 Exam Date: 06/23/2022 09:09 Exam Location: [place] [facility] Ht (in): 68 Wt (lb): 196 Ordering Physician: Ceci Rivers Attending/Referring Phys: [id number], Silvestre Auxiliary Equipment Operator Jenni Valles RDCS Procedure CPT: Indications: LV function, chest pain Cardiac Hx: Technical Quality: Good Contrast 1: Total Dose (mL): Contrast 2: Total Dose (mL): MEASUREMENTS (Male / Female) Normal Values 2D ECHO LV Diastolic Diameter PLAX 4.3 cm 4.2 - 5.9 / 3.9 - 5.3 cm LV Systolic Diameter PLAX 3.4 cm IVS Diastolic Thickness 1.2 cm 0.6 - 1.0 / 0.6 - 0.9 cm LVPW Diastolic Thickness 1.1 cm 0.6 - 1.0 / 0.6 - 0.9 cm LV Relative Wall Thickness 0.5 RV Internal Dim ED PLAX 3.0 cm LA Systolic Diameter LX 3.5 cm 3.0 - 4.0 / 2.7 - 3.8 cm LV Diastolic Volume MOD BP 80.1 cm??? 67 - 155 / 56 - 104 cm??? LV Systolic Volume MOD BP 36.7 cm??? 22 - 58 / 19 - 49 cm??? LV Ejection Fraction MOD BP 54.2 % >= 55 % LV Diastolic Volume MOD 4C 100.8 cm??? LV Systolic Volume MOD 4C 43.9 cm??? LV Ejection Fraction MOD 4C 56.4 % LV Diastolic Length 4C 7.6 cm LV Systolic Length 4C 6.7 cm LV Diastolic Volume MOD 2C 53.0 cm??? LV Systolic Volume MOD 2C 31.0 cm??? LV Ejection Fraction MOD 2C 41.5 % LV Diastolic Length 2C 6.2 cm LV Systolic Length 2C 6.7 cm LA Volume 42.9 cm??? 18 - 58 / 22 - 52 cm??? M-MODE Aortic Root Diameter MM 3.5 cm MV E Point Septal Separation 1.5 cm AV Cusp Separation MM 2.1 cm DOPPLER AV Peak Velocity 134.5 cm/s AV Peak Gradient 7.2 mmHg MV Area PHT 3.3 cm??? Mitral E Point Velocity 101.3 cm/s Mitral A Point Velocity 84.0 cm/s Mitral E to A Ratio 1.2 MV Deceleration Time 232.1 ms MV E' Velocity 7.3 cm/s Mitral E to MV E' Ratio 14.0 TR Peak Velocity 221.8 cm/s TR Peak Gradient 19.7 mmHg Right Ventricular Systolic Press 24.5 mmHg FINDINGS Left Ventricle Left ventricular ejection fraction is estimated at 50-55 %. Left ventricular cavity size normal. Borderline left ventricular hypertrophy. No obvious regional wall motion abnormalities. Right Ventricle Normal right ventricular size and function. Right ventricular systolic pressure within normal limits. Right Atrium Normal right atrial size. Left Atrium Normal left atrial size. Mitral Valve Mitral valve thickened. Trace to mild mitral regurgitation. Aortic Valve Trileaflet aortic valve. No aortic valve stenosis or regurgitation. Focal thickening of the aortic valve cusps. Tricuspid Valve Structurally normal tricuspid valve. Trace to mild tricuspid regurgitation. Pulmonic Valve Structurally normal pulmonic valve. Trace pulmonic regurgitation. Pericardium Normal pericardium. No pericardial effusion. Aorta Normal size aortic root and proximal ascending aorta. CONCLUSIONS Left ventricular ejection fraction 50-55% Borderline LVH Trace to mild mitral regurgitation Trace to mild tricuspid regurgitation No pericardial effusion Previewed by: Dr. Lawrence Pandya DO (Electronically Signed) Final Date: 23 June 2022 10:32
[2022-06-23] MEDS: IPRATROPIUM-ALBUTEROL 3 ML NEB INHALATION PRN ×3 (12:01→19:37)
[2022-06-23] MEDS: ACETAMINOPHEN TAB 325 MG TAB PO PRN ×2 (13:20→21:13)
--- NOTE | 2022-06-23 16:15 | P.PN ---
Subjective Progress Note Date: 06/23/22 Marcel Jo, is a 61-year-old male who presented to [facility] emergency room with a chief complaint of chest pain He was evaluated in the emergency room vital examination on presentation revealed a temperature of 97 pulse 79 respiration 19 and blood pressure 141/104 pulse ox 97% on room air Laboratory data revealed a white blood count of 12.1 hemoglobin 16.6 platelet count 215 d-dimer 0.31 troponin less than 0.012 BUN 13 creatinine 0.77 lipase 68 Testing in the emergency room revealed chest x-ray done in the emergency room revealed hyperinflation of the lungs otherwise no acute process, EKG done in the emergency room revealed sinus rhythm with left axis deviation Patient was admitted to medical floor for further evaluation and treatment Past medical history is significant for history of coronary artery disease, with previous history of angioplasty and stent placement, history of COPD, history of hypertension, history of hyperlipidemia On 06/23 2022 patient was seen and examined on the telemetry floor, he is alert and oriented 3 in no apparent distress, he continued to have episodes of chest pain on and off last night, he was evaluated by cardiology, and plan is to proceed was cardiac catheterization in a.m. tomorrow, he was started on IV heparin, troponin 3 negative, will follow closely Objective - Vital Signs Vital signs: Vital Signs Temp 98 F 06/23/22 06:50 Pulse 64 06/23/22 12:12 Resp 16 06/23/22 06:50 BP 128/78 06/23/22 06:50 Pulse Ox 97 06/23/22 06:50 FiO2 Intake & Output 06/22/22 06/23/22 06/23/22 18:59 06:59 18:59 Intake Total 0 Balance 0 Weight 88.904 kg Intake: Oral 0 Other: Voiding Method Toilet # Voids 2 - Exam In general patient is alert and oriented x 3 in no distress HEENT head normocephalic and atraumatic Neck is supple no JVD no goiter no lymphadenopathy no carotid bruit Chest examination is clear to auscultation no crackles no wheezing Cardiac exam reveals regular heart sounds S1 and S2 no gallops no murmurs Abdomen is soft nontender no organomegaly with normal bowel sounds Extremity exam reveals no edema no cyanosis or clubbing Neurological examination reveals no gross focal deficits - Labs CBC & Chem 7: 06/23/22 09:34 03/28/23 06:00 Labs: Abnormal Lab Results - Last 24 Hours (Table) 06/23/22 06/23/22 Range/Units 06:00 06:00 Immature Gran # 0.05 H (0.00-0.04) X 10*3/uL Anion Gap 8.80 L (10.00-18.00) mmol/L Total Protein 6.1 L (6.2-8.2) g/dL Assessment and Plan Plan: Episodes of chest pain, patient is admitted to telemetry floor, serial EKG and cardiac enzymes ordered cardiology consultation requested Known history of coronary artery disease with previous history of angioplasty and stent placement Underlying history of COPD Underlying history of hypertension Underlying history of hyperlipidemia Underlying history of osteoarthritis Per patient history of narcotic addiction in the past At this time patient is admitted to telemetry floor Serial EKG and cardiac enzymes ordered Home medications reviewed and reordered Cardiology consultation was requested CODE STATUS per patient no code Will follow closely
[2022-06-23] MEDS: ATORVASTATIN 80 MG TAB PO SCH (20:11)
[2022-06-23] MEDS: MONTELUKAST 10 MG TAB PO SCH (20:11)
[2022-06-23] MEDS ORDERED: SODIUM CHLORIDE 0.9% 1,000 ML in EMPTY BAG 1 BAG IV SCH (23:00)
[2022-06-24] MEDS ORDERED: ASPIRIN 325 MG TAB PO ONE (05:00)
[2022-06-24] MEDS ORDERED: ATORVASTATIN 80 MG TAB PO ONE (05:00)
[2022-06-24] MEDS: ATORVASTATIN 80 MG TAB PO SCH (05:44)
[2022-06-24] MEDS ORDERED: HEPARIN SODIUM,PORCINE 10,000 UNIT in SODIUM CHLORIDE 0.9% 1,000 ML IRRIGATION PRN (07:00)
[2022-06-24] MEDS ORDERED: HEPARIN SODIUM,PORCINE 2,500 UNIT in SODIUM CHLORIDE 0.9% 250 ML IRRIGATION PRN (07:00)
[2022-06-24] MEDS: ASPIRIN 81 MG PO SCH ×2 (07:17→07:23)
[2022-06-24] MEDS: METOPROLOL SUCCINATE (ER) 50 MG TAB.ER.24H PO SCH (07:22)
[2022-06-24] MEDS: CLOPIDOGREL 75 MG TAB PO SCH (07:23)
[2022-06-24] MEDS: FAMOTIDINE 20 MG TAB PO SCH (07:23)
[2022-06-24] MEDS: hydroCHLOROthiazide 12.5 MG CAP PO SCH (07:23)
[2022-06-24] MEDS: ISOSORBIDE MONONITRATE ER 60 MG TAB.ER.24H PO SCH (07:23)
[2022-06-24] MEDS: BUDESONIDE 1 MG/2 ML NEBU INHALATION SCH (07:36)
[2022-06-24] MEDS: IPRATROPIUM-ALBUTEROL 3 ML NEB INHALATION PRN ×2 (07:36→11:25)
[2022-06-24] MEDS ORDERED: SODIUM CHLORIDE 0.9% 1,000 ML IV ONE (08:40)
[2022-06-24] MEDS ORDERED: HEPARIN SODIUM 1,000 UN/ML (10ML VL) ONE (08:49)
[2022-06-24] MEDS: HEPARIN SOD,PORK IN 0.45% NACL 25,000 UNIT in 0.45% NACL 1 250ML.BAG IV SCH (08:50)
[2022-06-24] MEDS ORDERED: MIDAZOLAM 2 MG/2 ML VIAL IVP ONE (08:57)
[2022-06-24 09:02] LABS: Basophils # (A) 0.08 X 10*3/uL (0.00-0.10); Basophils % (A) 0.9 %; Eosinophils # (A) 0.16 X 10*3/uL (0.04-0.35); Eosinophils % (A) 1.8 %; HCT 42.8 % (39.6-50.0); HGB 14.6 g/dL (13.0-17.0); Immature Grans, Automated 0.4 %; Lymphocytes # (A) 3.11 X 10*3/uL (0.90-5.00); Lymphocytes % (A) 34.1 %; MCH 30.1 pg (27.0-32.0); MCHC 34.1 g/dL (32.0-37.0); MCV 88.2 fL (80.0-97.0); Mean Platelet Volume 11.4 fL (9.5-12.2); Monocytes # (A) 0.63 X 10*3/uL (0.20-1.00); Monocytes % (A) 6.9 %; NRBC Per 100 WBC 0 /100 WBCS (0.0-0.0); Neutrophils % (A) 55.9 %; Platelet Count 203 X 10*3/uL (140-440); RBC 4.85 X 10*6/uL (4.40-5.60); RDW 13.2 % (11.5-14.5); WBC 9.12 X 10*3/uL (4.50-10.00)
[2022-06-24] MEDS ORDERED: LIDOCAINE 1% INJ 10MG/ML (30 ML VIAL-PF) SQ ONE ×2 (09:05→09:07)
[2022-06-24] MEDS ORDERED: VERAPAMIL SYRINGE (5 MG/10 ML) INTRAARTER ONE (09:09)
[2022-06-24] MEDS ORDERED: MIDAZOLAM 2 MG/2 ML VIAL IV ONE (09:09)
[2022-06-24] MEDS ORDERED: HEPARIN SODIUM 1,000 UN/ML (10ML VL) IV ONE (09:10)
[2022-06-24] MEDS ORDERED: fentaNYL (PF) 50 MCG/ML 2 ML AMP ONE (09:21)
[2022-06-24] MEDS ORDERED: fentaNYL (PF) 50 MCG/ML 2 ML AMP IV ONE ×2 (09:22)
[2022-06-24] MEDS ORDERED: IOPAMIDOL-370 125ML BTL INJ ONE (09:31)
[2022-06-24] MEDS ORDERED: RX INFO: IV CONTRAST WAS GIVEN 1 EACH MISC MISCELLANE PRN (09:36)
--- NOTE | 2022-06-24 09:36 | P.PCN ---
Date of Procedure: 06/24/22 Operative Findings: CARDIAC CATHETERIZATION PERFORMING PHYSICIAN: Idris De Luna MD, RPVI PROCEDURE PERFORMED: 1. Selective right and left coronary angiogram 2. iFR of the LCx INDICATION: 61-year-old gentleman with coronary artery disease and prior stenting of the RCA and LAD presented to the hospital with chest discomfort concerning for angina. Beside that he did have an episode of syncope. COMPLICATION: None APPROACH: Right radial artery LEVEL OF SEDATION: Moderate with a sedation length of 25 minutes PROCEDURE DESCRIPTION: After obtaining an informed consent, the patient was brought to cardiac labor contract analyst. Local anesthesia was performed using lidocaine subcutaneously. The right radial artery was cannulated using Seldinger technique, the guidewire passed easily, following that we advanced a 5-Norwegian sheath dilator assembly, the wire and dilator were removed and sheath was flushed. Following that, 2 mg of verapamil along with 5000 unit heparin were given. Selective right and left coronary angiogram using a 6-Norwegian JR4 and JL 3.5 catheters. Following that I did an FFR of the LCx The procedure was completed there was no complication. SELECTIVE CORONARY ANGIOGRAM: The right coronary artery: Large-caliber vessel and a dominant vessel. The RCA stented in the midportion and the stent is patent Left main: Have mild disease only. Bifurcates into an LCx and LAD The left circumflex: As intermediate lesion in the proximal portion was mostly identified on the BULGARIAN cranial view. We did Doppler wire and and that came in to be nonischemic. The left anterior descending artery: Large caliber vessel. The proximal LAD appears to have mild disease only. The mid LAD is a stented and the stent is patent. The LAD distally appears to be angiographically normal. The LAD gives rises into first and second diagonal branches they appeared to have about 60% lesion ostially. iFR OF THE LCX: After zeroing the Doppler wire and equalizing between the Doppler wire and guiding catheter which was JL 3.0 guiding catheter and after wiring the left circumflex we did iFR and that came in to be nonischemic and 0.96. The procedure was completed there was no complication CONCLUSION: 1. Patent stent in the right coronary artery 2. Patent stent in the left anterior descending artery 3. Intermediate lesion involving the proximal LCx. iFR was performed and came in to be nonischemic POSTPROCEDURE MANAGEMENT: Medical treatment and follow-up with the patient
[2022-06-24 09:50] VITALS: TEMP 97.3
[2022-06-24 11:31] LABS: INR 0.96 (0.90-1.11); Prothrombin Time 10.9 sec (9.9-11.9)
[2022-06-24 12:09] VITALS: RESP 16
--- NOTE | 2022-06-24 12:34 | P.DS ---
Providers Date of admission: 06/22/22 13:01 Expected date of discharge: 06/24/22 Attending physician: Alvin Frzaier Consults: 06/22/22 13:01 Consult Physician Urgent Consulting Provider: [facility] Consult Reason/Comments: acute chest pain Do you want consulting provider notified?: Yes Primary care physician: Lora Cobb [facility] Course: Discharge diagnosis Episodes of chest pain, patient is admitted to telemetry floor, serial EKG and cardiac enzymes ordered cardiology consultation requested Known history of coronary artery disease with previous history of angioplasty and stent placement Underlying history of COPD Underlying history of hypertension Underlying history of hyperlipidemia Underlying history of osteoarthritis Per patient history of narcotic addiction in the past Hospital course Marcel Jo, is a 61-year-old male who presented to [facility] emergency room with a chief complaint of chest pain He was evaluated in the emergency room vital examination on presentation revealed a temperature of 97 pulse 79 respiration 19 and blood pressure 141/104 pulse ox 97% on room air Laboratory data revealed a white blood count of 12.1 hemoglobin 16.6 platelet count 215 d-dimer 0.31 troponin less than 0.012 BUN 13 creatinine 0.77 lipase 68 Testing in the emergency room revealed chest x-ray done in the emergency room revealed hyperinflation of the lungs otherwise no acute process, EKG done in the emergency room revealed sinus rhythm with left axis deviation Patient was admitted to medical floor for further evaluation and treatment Past medical history is significant for history of coronary artery disease, with previous history of angioplasty and stent placement, history of COPD, history of hypertension, history of hyperlipidemia On 06/23 2022 patient was seen and examined on the telemetry floor, he is alert and oriented 3 in no apparent distress, he continued to have episodes of chest pain on and off last night, he was evaluated by cardiology, and plan is to proceed was cardiac catheterization in a.m. tomorrow, he was started on IV heparin, troponin 3 negative, will follow closely 06/24/2022 patient is alert and oriented 3. Patient underwent cardiac catheterization today patient was found to have patent stent in the right coronary artery patent stent in the left descending artery. Anterior medial lesion involving the proximal LCx, IFR was performed and came in to be nonischemic. At this time patient is resting comfortably in bed patient denies any chest pain or shortness of breath. Patient has been cleared for discharge from cardiology standpoint once completion of post cardiac catheterization care. Current vital signs temp 97.3, heart rate 82, respiratory rate 16, blood pressure 124/75 pulse ox of 94% on room air Patient Condition at Discharge: Stable Plan - Discharge Summary Discharge Rx Participant: No New Discharge Prescriptions: Continue Metoprolol Succinate (ER) [Toprol XL] 50 mg PO DAILY Clopidogrel [Plavix] 75 mg PO DAILY #30 tab Montelukast [Singulair] 10 mg PO HS Aspirin EC [Ecotrin Low Dose] 81 mg PO DAILY Famotidine [Pepcid] 20 mg PO BID Nitroglycerin Sl Tabs [Nitrostat] 0.4 mg SL Q5M PRN #25 tab PRN Reason: Chest Pain Isosorbide Mononitrate ER [Imdur] 60 mg PO DAILY Atorvastatin Calcium [Lipitor] 80 mg PO HS Ipratropium-Albuterol Nebulize [Duoneb 0.5 mg-3 mg/3 ml Soln] 3 ml INHALATION RT-Q4H PRN ml PRN Reason: Shortness Of Breath Or Wheezing Budesonide [Pulmicort] 1 mg INHALATION RT-BID ml Albuterol Sulfate [Proair Hfa] 1 - 2 puff INHALATION RT-Q4H PRN PRN Reason: Shortness Of Breath Albuterol Nebulized [Ventolin Nebulized] 2.5 mg INHALATION RT-Q4H PRN PRN Reason: Shortness Of Breath hydroCHLOROthiazide 12.5 mg PO DAILY Discharge Medication List Metoprolol Succinate (ER) [Toprol XL] 50 mg PO DAILY 10/30/20 [History] Clopidogrel [Plavix] 75 mg PO DAILY #30 tab 11/02/20 [Rx] Montelukast [Singulair] 10 mg PO HS 11/23/20 [History] Nitroglycerin Sl Tabs [Nitrostat] 0.4 mg SL Q5M PRN #25 tab 11/30/20 [Rx] Atorvastatin Calcium [Lipitor] 80 mg PO HS 03/25/21 [History] Isosorbide Mononitrate ER [Imdur] 60 mg PO DAILY 03/25/21 [History] Budesonide [Pulmicort] 1 mg INHALATION RT-BID ml 03/31/21 [Rx] Ipratropium-Albuterol Nebulize [Duoneb 0.5 mg-3 mg/3 ml Soln] 3 ml INHALATION RT-Q4H PRN ml 03/31/21 [Rx] Albuterol Nebulized [Ventolin Nebulized] 2.5 mg INHALATION RT-Q4H PRN 08/20/21 [History] Albuterol Sulfate [Proair Hfa] 1 - 2 puff INHALATION RT-Q4H PRN 08/20/21 [History] hydroCHLOROthiazide 12.5 mg PO DAILY 08/20/21 [History] Aspirin EC [Ecotrin Low Dose] 81 mg PO DAILY 12/13/21 [History] Famotidine [Pepcid] 20 mg PO BID 12/13/21 [History] Follow up Appointment(s)/Referral(s): Lora Cobb MD [Primary Care Provider] - 1-2 days Idris De Luna MD [STAFF PHYSICIAN] - 1 Week Activity/Diet/Wound Care/Special Instructions: Activity as tolerated Diet heart healthy Discharge Disposition: HOME SELF-CARE
[2022-06-24 13:55] VITALS: BP 108/65
[2022-06-24 13:56] VITALS: PULSE 61
== END 2022-06-24 14:23 | disposition home or self-care (01) ==
LOC: EC 11:20 → 6NMEDSUR 13:01
PROVIDERS: ADMIT Internal Medicine; ATTEND Internal Medicine
DX: I25.110 Atherosclerotic heart disease of native coronary artery with unstable angina pectoris (principal); R55 Syncope and collapse; J44.9 Chronic obstructive pulmonary disease, unspecified; I10 Essential (primary) hypertension; E78.5 Hyperlipidemia, unspecified; M19.90 Unspecified osteoarthritis, unspecified site; I25.2 Old myocardial infarction; Z87.891 Personal history of nicotine dependence; Z95.5 Presence of coronary angioplasty implant and graft; Z79.02 Long term (current) use of antithrombotics/antiplatelets; Z79.899 Other long term (current) drug therapy; Z79.82 Long term (current) use of aspirin; Z88.1 Allergy status to other antibiotic agents; Z80.1 Family history of malignant neoplasm of trachea, bronchus and lung; Z83.3 Family history of diabetes mellitus; Z82.49 Family history of ischemic heart disease and other diseases of the circulatory system; Z80.8 Family history of malignant neoplasm of other organs or systems
CPT/HCPCS: 96365; 96366 ×2; 96375; 96376; 99285; 36415; 94640 ×5; 93005; 93306; 93454; 93799; 85379; 83880; 80053 ×2; 83690; 83735; 84484; 85025 ×3; 85610 ×3; 85730 ×2; 71046; G0378 ×3; C1887 ×2; C1769 ×2; C1894; J2250; J2270; J3010; J1644 ×3; Q9967

== ENCOUNTER 2022-06-25 12:38 | Inpatient (IN) | payer MEDICARE, OTHER ==
[2022-06-25] MEDS ORDERED: MORPHINE SULFATE 2 MG/ML SYRINGE IVP STA (12:40)
[2022-06-25] MEDS ORDERED: NITROGLYCERIN OINT 1 INCH/GM PACKET TOPICAL STA (12:40)
--- NOTE | 2022-06-25 12:56 | ED ---
General Adult HPI - General Chief complaint: Chest Pain Stated complaint: CHEST PAIN Time Seen by Provider: 06/25/22 12:45 Source: patient, EMS, RN notes reviewed, old records reviewed Mode of arrival: EMS Limitations: no limitations - History of Present Illness Initial comments: This is a 61-year-old male presents emergency Department complaining of severe right-sided chest pain. Patient states about 4 hours ago he had a discomfort across his back and approximately half an hour prior to arrival was at the orthopedic surgeons office and he started expressing right-sided chest pain. Patient states when he was in the hospital recently they did a cardiac catheterization and oriented 2 previous stents this time they did not do a new stone but they did say he had about 50% blockage according to the patient. Patient states the pain is severe and it does kind of get worse at times and then improved but never goes away per patient states she's mild short of breath mildly nauseated patient also states he's been sweating since the pain got more intense about a half an hour ago - Related Data Home Medications Medication Instructions Recorded Confirmed Metoprolol Succinate (ER) [Toprol 50 mg PO DAILY 10/30/20 06/25/22 XL] Montelukast [Singulair] 10 mg PO HS 11/23/20 06/25/22 Atorvastatin Calcium [Lipitor] 80 mg PO HS 03/25/21 06/25/22 Isosorbide Mononitrate ER [Imdur] 60 mg PO DAILY 03/25/21 06/25/22 Albuterol Nebulized [Ventolin 2.5 mg INHALATION RT-Q4H PRN 08/20/21 06/25/22 Nebulized] Albuterol Sulfate [Proair Hfa] 1 - 2 puff INHALATION RT-Q4H PRN 08/20/21 06/25/22 hydroCHLOROthiazide 12.5 mg PO DAILY 08/20/21 06/25/22 Aspirin EC [Ecotrin Low Dose] 81 mg PO DAILY 12/13/21 06/25/22 Famotidine [Pepcid] 20 mg PO BID 12/13/21 06/25/22 Previous Rx's Medication Instructions Recorded Clopidogrel [Plavix] 75 mg PO DAILY #30 tab 11/02/20 Nitroglycerin Sl Tabs [Nitrostat] 0.4 mg SL Q5M PRN #25 tab 11/30/20 Budesonide [Pulmicort] 1 mg INHALATION RT-BID ml 03/31/21 Ipratropium-Albuterol Nebulize 3 ml INHALATION RT-Q4H PRN ml 03/31/21 [Duoneb 0.5 mg-3 mg/3 ml Soln] Allergies Allergy/AdvReac Type Severity Reaction Status Date / Time levofloxacin [From Levaquin] AdvReac Nausea & Verified 06/25/22 14:28 Vomiting Review of Systems ROS Statement: Those systems with pertinent positive or pertinent negative responses have been documented in the HPI. ROS Other: All systems not noted in ROS Statement are negative. Past Medical History Past Medical History: Coronary Artery Disease (CAD), COPD, Hyperlipidemia, Hypertension, Myocardial Infarction (ME) Additional Past Medical History / Comment(s): Pt states he has hx of 3 respiratory arrests and was vented, generalized arthritis, Last Myocardial Infarction Date:: History of Any Multi-Drug Resistant Organisms: None Reported Past Surgical History: Adenoidectomy, Heart Catheterization With Stent, Hernia Repair, Joint Replacement, Orthopedic Surgery, Tonsillectomy Additional Past Surgical History / Comment(s): R inguinal hernia repair, L rotator cuff repair, bialteral total knee arthroplasties, R shoulder spur removal, teeth extracted, colonoscopy-normal. third hernia repair, left side, stents x2 2020, stents x1 11/2021 Past Anesthesia/Blood Transfusion Reactions: No Reported Reaction Date of Last Stent Placement:: 2021 Past Psychological History: No Psychological Hx Reported Smoking Status: Former smoker Past Alcohol Use History: Occasional Past Drug Use History: Marijuana - Past Family History Father Family Medical History: Cancer Additional Family Medical History / Comment(s): Father of lung cancer at the age of 62. He was a smoker. Mother Family Medical History: Cancer, Diabetes Mellitus, Hypertension Additional Family Medical History / Comment(s): Mother at age 78 from brainstem cancer. Brother(s) Additional Family Medical History / Comment(s): Patient's 1 brother with history of AAA. Patient has 4 sisters and he does not know any of their medical history. Patient's 1 son and 1 daughter living. He had one daughter that at 7 weeks old from a congenital heart. General Exam - General Exam Comments Initial Comments: GENERAL: Patient is well-developed and well-nourished. Patient is nontoxic and well- hydrated and is in moderate distress. ENT: Neck is soft and supple. No significant lymphadenopathy is noted. Oropharynx is clear. Moist mucous membranes. Neck has full range of motion without eliciting any pain. EYES: The sclera were anicteric and conjunctiva were pink and moist. Extraocular movements were intact and pupils were equal round and reactive to light. Eyelids were unremarkable. PULMONARY: Unlabored respirations. Good breath sounds bilaterally. No audible rales rhonchi or wheezing was noted. CARDIOVASCULAR: There is a regular rate and rhythm without any murmurs gallops or rubs. ABDOMEN: Soft and nontender with normal bowel sounds. SKIN: Skin is clear with no lesions or rashes and otherwise unremarkable. NEUROLOGIC: Patient is alert and oriented x3. Cranial nerves II through XII are grossly intact. Motor and sensory are also intact. Normal speech, volume and content. Symmetrical smile. MUSCULOSKELETAL: Normal extremities with adequate strength and full range of motion. No lower extremity swelling or edema. No calf tenderness. LYMPHATICS: No significant lymphadenopathy is noted PSYCHIATRIC: Normal psychiatric evaluation. Limitations: no limitations Course Vital Signs 06/25/22 12:41 Temperature 97.7 F Pulse Rate 65 Respiratory 18 Rate Blood Pressure 132/92 O2 Sat by Pulse 96 Oximetry Medical Decision Making - Medical Decision Making EKG was interpreted by myself that shows a sinus rhythm with multiple PVCs at 64 bpm CA interval is 163 QRSs 87 Q-T intervals 3-4 QTC is 393. Patient's EKG shows no ST segment elevation or depression. Was pt. sent in by a medical professional or institution (, PA, RE ETCHER, urgent care, hospital, or retirement...) When possible be specific @ -Patient was sent in from his orthopedic surgeon's office Did you speak to anyone other than the patient for history (EMS, parent, family, police, friend...)? What history was obtained from this source @ -EMS gave us a substantial portion of the history Did you review nursing and triage notes (agree or disagree)? Why? @ -I reviewed and agree with nursing and triage notes Were old charts reviewed (outside hosp., previous admission, EMS record, old EKG, old radiological studies, urgent care reports/EKG's, retirement records)? Report findings @ -I reviewed prior charts his prior catheterization report. I reviewed prior laboratory studies Differential Diagnosis (chest pain, altered mental status, abdominal pain women, abdominal pain men, vaginal bleeding, weakness, fever, dyspnea, syncope, headach e, dizziness, GI bleed, back pain, seizure, CVA, palpatations, mental health, musculoskeletal)? @ -Differential Chest Pain: Stable Angina, Unstable Angina, STEMI, NSTEMI Aortic Dissection, Pneumothorax, Musculoskeletal, Esophageal Spasm GERD, Cholecystitis, Pancreatitis, Zoster, this is not meant to be an all-inclusive list. EKG interpreted by me (3pts min.). @ -As above X-rays interpreted by me (1pt min.). @ -Chest x-ray was interpreted by myself is in no acute abnormality CT interpreted by me (1pt min.). @ -None done U/S interpreted by me (1pt. min.). @ -None done What testing was considered but not performed or refused? (CT, X-rays, U/S, labs)? Why? @ -None What meds were considered but not given or refused? Why? @ -None Did you discuss the management of the patient with other professionals (pamela rodrigues i.e. , PA, RE ETCHER, lab, RT, psych nurse, manager social responsibility, material stress tester, teacher, u.s. revenue officer, case management director)? Give summary @ -I called and spoke to a nurse in the cardiac catheterization lab to convey a message to Dr. Edmonds. I explained the case and lab results that we have re ceived Was smoking cessation discussed for >3mins.? @ -No Was critical care preformed (if so, how long)? @ -35 minutes Were there social determinants of health that impacted care today? How? (Homelessness, low income, unemployed, alcoholism, drug addiction, transportation, low edu. Level, literacy, decrease access to med. care, skilled nursing, rehab)? @ -No Was there de-escalation of care discussed even if they declined (Discuss DNR or withdrawal of care, Hospice)? DNR status @ -No What co-morbidities impacted this encounter? (DM, HTN, Smoking, COPD, CAD, Cancer, CVA, ARF, Chemo, Hep., AIDS, mental health diagnosis, sleep apnea, mor bid obesity)? @ -Coronary artery disease Was patient admitted / discharged? Hospital course, mention meds given and route, prescriptions, significant lab abnormalities, going to OR and other pertinent info. @ -Patient has significant right-sided sharp chest pain that appeared to come and go or at least get more intense at times. I gave the patient Nitropaste as well as morphine and that helped his pain significantly. Patient had an elev ated troponin of 0.[address] Edmonds via a nurse and informed him of this I started the patient on heparin I spoke with Dr. Rivero he agreed to admit the patient minute the patient wrote admitting orders and consult cardiology Undiagnosed new problem with uncertain prognosis? @ -No Drug Therapy requiring intensive monitoring for toxicity (Heparin, Nitro, Insulin, Cardizem)? @ -Heparin Were any procedures done? @ -No Diagnosis/symptom? @ -Non-STEMI Acute, or Chronic, or Acute on Chronic? @ -Acute Uncomplicated (without systemic symptoms) or Complicated (systemic symptoms)? @ -Complicated Side effects of treatment? @ -No Exacerbation, Progression, or Severe Exacerbation? @ -No Poses a threat to life or bodily function? How? (Chest pain, USA, ME, pneumonia, PE, COPD, DKA, ARF, appy, cholecystitis, CVA, Diverticulitis, Homicidal, Suicidal, threat to staff... and all critical care pts) @ -Yes third be poor perfusion which leads to end organ dysfunction - Lab Data Result diagrams: 06/25/22 12:58 Lab Results 06/25/22 06/25/22 06/25/22 Range/Units 12:58 12:58 12:58 WBC 9.5 (3.8-10.6) k/uL RBC 5.39 (4.30-5.90) m/uL Hgb 16.2 (13.0-17.5) gm/dL Hct 47.7 (39.0-53.0) % MCV 88.5 (80.0-100.0) fL MCH 30.0 (25.0-35.0) pg MCHC 34.0 (31.0-37.0) g/dL RDW 13.1 (11.5-15.5) % Plt Count 226 (150-450) k/uL MPV 8.4 Neutrophils % 66 % Lymphocytes % 27 % Monocytes % 5 % Eosinophils % 2 % Basophils % 0 % Neutrophils # 6.2 (1.3-7.7) k/uL Lymphocytes # 2.5 (1.0-4.8) k/uL Monocytes # 0.5 (0-1.0) k/uL Eosinophils # 0.1 (0-0.7) k/uL Basophils # 0.0 (0-0.2) k/uL PT 9.9 (9.0-12.0) sec INR 0.9 (<1.2) APTT 24.5 (22.0-30.0) sec Troponin I 0.982 H* (0.000-0.034) ng/mL Critical Care Time Critical Care Time: Yes Total Critical Care Time: 35 Disposition Clinical Impression: Acute non-ST elevation myocardial infarction (NSTEMI) Disposition: ADMITTED IP TO THIS HOSP Referrals: Ava Erwin NPC [REFERRING] - 1-2 days Time of Disposition: 14:37
[2022-06-25 13:12] LABS: Basophils % (A) 0 %; Eosinophils # (A) 0.1 k/uL (0-0.7); Eosinophils % (A) 2 %; HCT 47.7 % (39.0-53.0); HGB 16.2 gm/dL (13.0-17.5); Lymphocytes # (A) 2.5 k/uL (1.0-4.8); Lymphocytes % (A) 27 %; MCV 88.5 fL (80.0-100.0); Mean Platelet Volume 8.4; Monocytes # (A) 0.5 k/uL (0-1.0); Monocytes % (A) 5 %; Neutrophils # (A) 6.2 k/uL (1.3-7.7); Neutrophils % (A) 66 %; Platelet Count 226 k/uL (150-450); RBC 5.39 m/uL (4.30-5.90); RDW 13.1 % (11.5-15.5); WBC 9.5 k/uL (3.8-10.6)
--- NOTE | 2022-06-25 13:26 | XR ---
EXAMINATION TYPE: XR chest 2V DATE OF EXAM: 06/25/2022 COMPARISON: 06/22/2022 INDICATION: Chest pain TECHNIQUE: Frontal and lateral views of the chest are obtained. FINDINGS: The heart size is normal. The pulmonary vasculature is normal. The lungs are clear. IMPRESSION: 1. No acute pulmonary process.
[2022-06-25 13:29] LABS: INR 0.9 (<1.2); Partial Thromboplastin Time 24.5 sec (22.0-30.0); Prothrombin Time 9.9 sec (9.0-12.0)
[2022-06-25] MEDS ORDERED: HEPARIN SODIUM 1,000 UN/ML (10ML VL) IV ONE (14:26)
[2022-06-25] MEDS ORDERED: HEPARIN SOD,PORK IN 0.45% NACL 25,000 UNIT in 0.45% NACL 1 250ML.BAG IV SCH (14:30)
[2022-06-25 14:37] LABS: ALT 27 U/L (4-49); AST 32 U/L (17-59); African American GFR (CKD) >90 (>60 ml/min/1.73 sqM); Albumin 4.8 g/dL (3.5-5.0); Alkaline Phosphatase 136 U/L (38-126); Anion Gap 10 mmol/L; Blood Urea Nitrogen 12 mg/dL (9-20); Calcium 9.3 mg/dL (8.4-10.2); Carbon Dioxide 20 mmol/L (22-30); Chloride 108 mmol/L (98-107); Glucose 109 mg/dL (74-99); Non-African American GFR(CKD) >90 (>60 ml/min/1.73 sqM); Potassium 4.1 mmol/L (3.5-5.1); Sodium 138 mmol/L (137-145); Total Protein 8.1 g/dL (6.3-8.2)
[2022-06-25] MEDS ORDERED: NITROGLYCERIN SL TABS 0.4 MG TAB SUBLINGUAL PRN (14:37)
[2022-06-25] MEDS ORDERED: NITROGLYCERIN-D5W PMX 50 MG in DEXTROSE/WATER 1 250ML.BAG IV STA (16:55)
[2022-06-25] MEDS: NITROGLYCERIN OINT 1 INCH/GM PACKET TOPICAL SCH (17:11)
[2022-06-25] MEDS: MORPHINE SULFATE 4 MG/ML SYRINGE IVP PRN (17:55)
[2022-06-25] MEDS: MONTELUKAST 10 MG TAB PO SCH (20:03)
[2022-06-25] MEDS: ATORVASTATIN 80 MG TAB PO SCH (20:04)
[2022-06-25] MEDS: FAMOTIDINE 20 MG TAB PO SCH (20:04)
[2022-06-25] MEDS: ALBUTEROL NEBULIZED 2.5 MG/3 ML INHALATION PRN (20:33)
[2022-06-25] MEDS: BUDESONIDE 1 MG/2 ML NEBU INHALATION SCH (20:33)
[2022-06-26] MEDS ORDERED: HEPARIN SODIUM 1,000 UN/ML (10ML VL) IV PRN (01:17)
[2022-06-26] MEDS: ACETAMINOPHEN TAB 325 MG TAB PO PRN (03:17)
[2022-06-26] MEDS: NITROGLYCERIN OINT 1 INCH/GM PACKET TOPICAL SCH ×4 (05:26→17:15)
[2022-06-26] MEDS: MORPHINE SULFATE 4 MG/ML SYRINGE IVP PRN ×4 (05:47→17:56)
[2022-06-26] MEDS: ASPIRIN 81 MG PO SCH (08:15)
[2022-06-26] MEDS: CLOPIDOGREL 75 MG TAB PO SCH (08:15)
[2022-06-26] MEDS: FAMOTIDINE 20 MG TAB PO SCH ×2 (08:15→20:17)
[2022-06-26] MEDS ORDERED: ALPRAZolam 0.25 MG TAB PO PRN (08:29)
[2022-06-26] MEDS ORDERED: NITROGLYCERIN SL TABS 0.4 MG TAB SUBLINGUAL PRN (08:29)
[2022-06-26] MEDS ORDERED: ATORVASTATIN 80 MG TAB PO STA (08:29)
[2022-06-26] MEDS ORDERED: ALPRAZolam 0.5 MG TAB PO PRN (08:29)
[2022-06-26] MEDS ORDERED: ASPIRIN 81 MG PO STA (08:29)
[2022-06-26] MEDS ORDERED: VERAPAMIL 2.5 MG/ML 2 ML AMP ONE (08:42)
[2022-06-26] MEDS ORDERED: HEPARIN SODIUM 1,000 UN/ML (10ML VL) ONE (08:55)
[2022-06-26] MEDS: BUDESONIDE 1 MG/2 ML NEBU INHALATION SCH ×2 (08:56→21:23)
[2022-06-26] MEDS ORDERED: METOPROLOL SUCCINATE (ER) 50 MG TAB.ER.24H PO SCH (09:00)
[2022-06-26] MEDS ORDERED: ASPIRIN 325 MG TAB PO SCH (09:00)
[2022-06-26] MEDS ORDERED: ASPIRIN 81 MG ONE (09:10)
[2022-06-26] MEDS ORDERED: ASPIRIN 81 MG PO ONE (09:16)
[2022-06-26] MEDS ORDERED: SODIUM CHLORIDE 0.9% 500 ML 500 ML IV ONE (09:17)
[2022-06-26] MEDS ORDERED: MIDAZOLAM 2 MG/2 ML VIAL IV ONE (09:35)
[2022-06-26] MEDS ORDERED: LIDOCAINE 1% INJ 10MG/ML (5 ML VIAL-PF) SQ ONE (09:36)
[2022-06-26] MEDS ORDERED: VERAPAMIL SYRINGE (5 MG/10 ML) INTRAARTER ONE (09:37)
[2022-06-26] MEDS ORDERED: HEPARIN SODIUM 1,000 UN/ML (10ML VL) IV ONE (09:38)
[2022-06-26] MEDS ORDERED: IOPAMIDOL-370 125ML BTL INJ ONE (09:51)
[2022-06-26] MEDS ORDERED: RX INFO: IV CONTRAST WAS GIVEN 1 EACH MISC MISCELLANE PRN (09:53)
--- NOTE | 2022-06-26 09:58 | P.PCN ---
Date of Procedure: 06/26/22 Operative Findings: CARDIAC CATHETERIZATION PERFORMING PHYSICIAN: Idris De Luna MD, RPVI PROCEDURE PERFORMED: 1. Selective right and left coronary angiogram INDICATION: Acute non-ST elevation myocardial infarction COMPLICATION: None APPROACH: Right radial artery LEVEL OF SEDATION: Moderate with a sedation length of 19 minutes PROCEDURE DESCRIPTION: After obtaining an informed consent, the patient was brought to cardiac supervisor dental laboratory. Local anesthesia was performed using lidocaine subcutaneously. The right radial artery was cannulated using Seldinger technique, the guidewire passed easily, following that we advanced a 5-Mauritian sheath dilator assembly, the wire and dilator were removed and sheath was flushed. Following that, 2 mg of verapamil along with 5000 unit heparin were given. Selective right and left coronary angiogram using a 6-Mauritian JR4 and JL 3.5 catheters. The procedure was completed there was no complication. SELECTIVE CORONARY ANGIOGRAM: The right coronary artery: Large-caliber vessel and a dominant vessel. The RCA is a stented and the midportion and the stent is patent. The distal RCA has mild disease only Left main: Has mild disease only. Bifurcates into an LCx and LAD The left circumflex: The proximal LCx is a stented. Distal to the stent there was a lesion appeared to be in the range of 50%. That lesion has not changed compared to before and we did perform a Doppler wire and was not flow-limiting from 2 days ago. The left anterior descending artery: The LAD is a stented and the stent is patent. The LAD has no high-grade stenosis CONCLUSION: 1. Patent stents in the RCA and LAD 2. Intermediate lesion involving the mid LCx has not changed compared to before. Recent FFR was none flow limiting. 3. Overall coronary vasospasm involving the coronary tree. POSTPROCEDURE MANAGEMENT: Start the patient on oral nitrate Consider adding dihydropyridine calcium channel octaviano Consider stopping the beta octaviano
[2022-06-26] MEDS ORDERED: SODIUM CHLORIDE 0.9% 1,000 ML IV SCH (10:00)
--- NOTE | 2022-06-26 10:13 | P.CRDCN ---
History of Present Illness Consult date: 06/26/22 Reason for Consult (text): Non-ST elevated ND History of present illness: HISTORY OF PRESENT ILLNESS: This is a 61-year-old male patient of Dr. De Luna with a past medical history significant for coronary artery disease with previous stenting of the LAD and RCA, hypertension, hyperlipidemia, COPD, and former nicotine dependence. We have been asked to see the patient in consultation for non-ST elevated ND. Patient was hospitalized earlier this week with complaints of chest pain underwent cardiac catheterization as below. Patient states that he was doing fine after discharge but followed up with his PCP, Siva Erwin and was having chest pain in the office. Also noted the heart rate and blood pressure were fluctuating. Patient states when he walks he gets lightheaded and he has to usually sit down. He did have a syncopal episode on his most recent hospitalization but none since then. Patient was given 3 nitroglycerin in the office and then an ambulance was called and he was brought into [facility] for further evaluation. Patient states he had pressure across his chest but it was sharp in the center and going to the right. He feels it was exactly the same type of pain that he experienced when he was in earlier prior to the recent cardiac catheterization. Dr. De Luna contacted and patient scheduled for cardiac catheterization. * EKG reveals sinus mechanism with no signs of acute ischemia * Chest xray negative for acute process. Correlate for COPD. * Laboratory data: CBC within normal limits. INR 0.9. Sodium 138, potassium 4.1, BUN 12 and creatinine 0.79. Troponin 0.982, 0.879, 0.7-3. Alkaline phosphatase 136 otherwise clear function tests are normal. Glucose 109. Magnesium 2.0. Sodium 140. Potassium 4.3. BUN 14. Creatinine 1.0. Troponin negative 4 * Current home cardiac medications include aspirin 81 mg daily, atorvastatin 80 mg at night, Plavix 75 mg daily, Imdur 60 mg daily, metoprolol succinate 50 mg daily, and hydrochlorothiazide 12.5 mg daily * Most recent echocardiogram obtained 06/23/2022 revealed EF of 50-55%. Borderline LVH. Trace to mild mitral regurgitation. Trace to mild tricuspid regurgitation. No pericardial effusion. * Cardiac catheterization history: 06/24/[address] De Luna revealed patent stent in the right coronary artery. Patent stent in the left anterior descending artery. Intermediate lesion involving the proximal LCx. iFR was performed and came in to be nonischemic. * Cardiac catheterization 06/26: Patent stents in the RCA and LAD. Intermediate lesion involving the mid circumflex unchanged. Overall coronary vasospasm involving the coronary tree. REVIEW OF SYSTEMS: At the time of my exam: CONSTITUTIONAL: Denies fever or chills. HEENT: Denies blurred vision, vision changes, or eye pain. Denies hemoptysis CARDIOVASCULAR: Reports chest pain. Denies orthopnea. Denies PND. Denies palpitations RESPIRATORY: Denies shortness of breath. GASTROINTESTINAL: Denies abdominal pain. Denies nausea or vomiting. HEMATOLOGIC: Denies bleeding disorders. GENITOURINARY: Denies any blood in urine. SKIN: Denies pruitis. Denies rash. PHYSICAL EXAM: VITAL SIGNS: Reviewed. GENERAL: Well-developed in no acute distress. HEENT: Head is normocephalic. Pupils are equal, round. Sclerae anicteric. Mucous membranes of the mouth are moist. Neck supple. No JVD LUNGS: Respirations even and unlabored. Lungs essentially clear to auscultation bilaterally. HEART: Regular rate and rhythm. S1 and S2 heard. ABDOMEN: Soft. Nondistended. Nontender. EXTREMITIES: Normal range of motion. No clubbing or cyanosis. Peripheral pulses intact. No lower extremity edema NEUROLOGIC: Awake and alert. Oriented x 3. ASSESSMENT: Non-ST elevated myocardial infarction most likely due to coronary vasospasms involving the coronary tree Coronary artery disease with previous stenting of the RCA and most recently to the LAD in November 2021 Hypertension Hyperlipidemia COPD Former nicotine dependence PLAN: Resume patient's home cardiac medications No need to repeat echocardiogram Start patient on oral nitrate, Imdur 30 mg daily Consider adding dihydropyridine calcium channel octaviano and consider stopping beta octaviano Monitor patient Further recommendations pending patient's course Nurse practitioner note has been reviewed by physician. Signing provider agrees with the documented findings, assessment, and plan of care. Past Medical History Past Medical History: Coronary Artery Disease (CAD), Chest Pain / Angina, COPD, Hyperlipidemia, Hypertension, Myocardial Infarction (ND) Additional Past Medical History / Comment(s): Pt states he has hx of 3 respiratory arrests and was vented, generalized arthritis, Last Myocardial Infarction Date:: History of Any Multi-Drug Resistant Organisms: None Reported Past Surgical History: Adenoidectomy, Heart Catheterization With Stent, Hernia Repair, Joint Replacement, Orthopedic Surgery, Tonsillectomy Additional Past Surgical History / Comment(s): R inguinal hernia repair, L rotator cuff repair, bialteral total knee arthroplasties, R shoulder spur removal, teeth extracted, colonoscopy-normal. third hernia repair, left side, stents x2 2020, stents x1 11/2021 Past Anesthesia/Blood Transfusion Reactions: No Reported Reaction Date of Last Stent Placement:: 2021 Smoking Status: Former smoker - Past Family History Father Family Medical History: Cancer Additional Family Medical History / Comment(s): Father of lung cancer at the age of 62. He was a smoker. Mother Family Medical History: Cancer, Diabetes Mellitus, Hypertension Additional Family Medical History / Comment(s): Mother at age 78 from brainstem cancer. Brother(s) Additional Family Medical History / Comment(s): Patient's 1 brother with history of AAA. Patient has 4 sisters and he does not know any of their medical history. Patient's 1 son and 1 daughter living. He had one daughter that at 7 weeks old from a congenital heart. Medications and Allergies Home Medications Medication Instructions Recorded Confirmed Type Metoprolol Succinate (ER) [Toprol 50 mg PO DAILY 10/30/20 06/25/22 History XL] Clopidogrel [Plavix] 75 mg PO DAILY #30 tab 11/02/20 06/25/22 Rx Montelukast [Singulair] 10 mg PO HS 11/23/20 06/25/22 History Nitroglycerin Sl Tabs [Nitrostat] 0.4 mg SL Q5M PRN #25 tab 11/30/20 06/25/22 Rx Atorvastatin Calcium [Lipitor] 80 mg PO HS 03/25/21 06/25/22 History Isosorbide Mononitrate ER [Imdur] 60 mg PO DAILY 03/25/21 06/25/22 History Budesonide [Pulmicort] 1 mg INHALATION RT-BID ml 03/31/21 06/25/22 Rx Ipratropium-Albuterol Nebulize 3 ml INHALATION RT-Q4H PRN ml 03/31/21 06/25/22 Rx [Duoneb 0.5 mg-3 mg/3 ml Soln] Albuterol Nebulized [Ventolin 2.5 mg INHALATION RT-Q4H PRN 08/20/21 06/25/22 History Nebulized] Albuterol Sulfate [Proair Hfa] 1 - 2 puff INHALATION RT-Q4H PRN 08/20/21 06/25/22 History hydroCHLOROthiazide 12.5 mg PO DAILY 08/20/21 06/25/22 History Aspirin EC [Ecotrin Low Dose] 81 mg PO DAILY 12/13/21 06/25/22 History Famotidine [Pepcid] 20 mg PO BID 12/13/21 06/25/22 History Allergies Allergy/AdvReac Type Severity Reaction Status Date / Time [facility] [[facility] AdvReac Nausea & Verified 06/25/22 14:28 Vomiting Physical Exam Vitals: Vital Signs Temp Pulse Pulse Resp BP BP Pulse Ox 06/26/22 03:28 84 18 132/89 98 06/26/22 02:00 16 06/26/22 00:00 85 18 125/76 99 06/25/22 20:53 72 06/25/22 20:37 70 06/25/22 20:00 17 06/25/22 19:43 98.2 F 70 18 119/74 99 06/25/22 17:10 17 06/25/22 17:00 98.4 F 70 19 154/71 96 06/25/22 16:17 98.2 F 60 18 116/84 96 06/25/22 14:33 54 L 18 129/79 95 06/25/22 12:41 97.7 F 65 18 132/92 96 Intake and Output 06/25/22 06/26/22 06/26/22 22:59 06:59 14:59 Intake Total 629.333 Balance 629.333 Intake: Intake, IV Titration 89.333 Amount Heparin Sod,Pork in 0.45% 89.333 NaCl 25,000 unit In 0.45 % NaCl 1 250ml.bag @ 11. 248 UNITS/KG/HR 10 mls/hr IV .Q24H [facility] Rx#: [id number] Oral 540 Other: Voiding Method Toilet Toilet Urinal Urinal # Voids 2 Weight 88.904 kg Results 06/25/22 12:58 06/25/22 12:58 Cardiac Enzymes 06/25/22 06/25/22 06/25/22 Range/Units 12:58 12:58 15:50 AST 32 (17-59) U/L Troponin I 0.982 H* 0.879 H* (0.000-0.034) ng/mL 06/25/22 Range/Units 18:52 AST (17-59) U/L Troponin I 0.723 H* (0.000-0.034) ng/mL Coagulation 06/25/22 06/25/22 Range/Units 12:58 23:43 PT 9.9 (9.0-12.0) sec APTT 24.5 39.3 H (22.0-30.0) sec CBC 06/25/22 Range/Units 12:58 WBC 9.5 (3.8-10.6) k/uL RBC 5.39 (4.30-5.90) m/uL Hgb 16.2 (13.0-17.5) gm/dL Hct 47.7 (39.0-53.0) % Plt Count 226 (150-450) k/uL Comprehensive Metabolic Panel 06/25/22 Range/Units 12:58 Sodium 138 (137-145) mmol/L Potassium 4.1 (3.5-5.1) mmol/L Chloride 108 H (98-107) mmol/L Carbon Dioxide 20 L (22-30) mmol/L BUN 12 (9-20) mg/dL Creatinine 0.79 (0.66-1.25) mg/dL Glucose 109 H (74-99) mg/dL Calcium 9.3 (8.4-10.2) mg/dL AST 32 (17-59) U/L ALT 27 (4-49) U/L Alkaline Phosphatase 136 H (38-126) U/L Total Protein 8.1 (6.3-8.2) g/dL Albumin 4.8 (3.5-5.0) g/dL Current Medications Generic Name Dose Route Start Last Admin Trade Name Freq PRN Reason Stop Dose Admin Acetaminophen 650 mg 06/25/22 17:25 06/26/22 03:17 Acetaminophen Tab 325 Mg Tab PO 650 mg Q6HR PRN Administration Fever and/ or Pain Albuterol Sulfate 2.5 mg 06/25/22 17:37 06/25/22 20:33 Albuterol Nebulized 2.5 Mg/3 Ml INHALATION 2.5 mg RT-Q4H PRN Administration Shortness Of Breath Albuterol/Ipratropium 3 ml 06/25/22 17:37 Ipratropium-Albuterol 3 Ml Neb INHALATION RT-Q4H PRN Shortness Of Breath Or Wheezing Aspirin 81 mg 06/26/22 09:00 Aspirin 81 Mg PO DAILY [facility] Atorvastatin Calcium 80 mg 06/25/22 21:00 06/25/22 20:04 Atorvastatin 80 Mg Tab PO 80 mg HS [facility] Administration Budesonide 1 mg 06/25/22 20:00 06/25/22 20:33 Budesonide 1 Mg/2 Ml Nebu INHALATION 1 mg RT-BID [facility] Administration Clopidogrel Bisulfate 75 mg 06/26/22 09:00 Clopidogrel 75 Mg Tab PO DAILY [facility] Famotidine 20 mg 06/25/22 21:00 06/25/22 20:04 Famotidine 20 Mg Tab PO 20 mg BID [facility] Administration Heparin Sodium (Porcine) 0 unit 06/26/22 01:17 Heparin Sodium 1,000 Un/Ml (10ml Vl) IV PER PROTOCOL PRN Low PTT Protocol Heparin Sodium/Sodium Chloride 250 mls @ 10 mls/hr 06/25/22 14:30 06/26/22 00:53 25,000 unit/ Sodium Chloride IV 13.248 units/kg/hr .Q24H [facility] 11.778 mls/hr Titration Protocol 11.248 UNITS/KG/HR Nitroglycerin/Dextrose 50 mg/ 250 mls @ 1.5 mls/hr 06/25/22 16:55 06/25/22 1 7:57 IV Solution IV 06/26/22 16:54 5 mcg/min .Q24H [facility] 1.5 mls/hr Administration Protocol 5 MCG/MIN Metoprolol Succinate 50 mg 06/26/22 09:00 Metoprolol Succinate (Er) 50 Mg Tab.Er.24h PO DAILY [facility] Montelukast Sodium 10 mg 06/25/22 21:00 06/25/22 20:03 Montelukast 10 Mg Tab PO 10 mg HS [facility] Administration Morphine Sulfate 4 mg 06/25/22 17:39 06/26/22 05:47 Morphine Sulfate 4 Mg/Ml Syringe IVP 4 mg Q6HR PRN Administration Pain Nitroglycerin 0.4 mg 06/25/22 14:37 Nitroglycerin Sl Tabs 0.4 Mg Tab SUBLINGUAL Q5M PRN Chest Pain Nitroglycerin 1 inch 06/25/22 18:00 06/26/22 05:26 Nitroglycerin Oint 1 Inch/Gm Packet TOPICAL Not Given Q6HR [facility] Intake and Output 06/25/22 06/26/22 06/26/22 22:59 06:59 14:59 Intake Total 629.333 Balance 629.333 Intake: Intake, IV Titration 89.333 Amount Heparin Sod,Pork in 0.45% 89.333 NaCl 25,000 unit In 0.45 % NaCl 1 250ml.bag @ 11. 248 UNITS/KG/HR 10 mls/hr IV .Q24H [facility] Rx#: [id number] Oral 540 Other: Voiding Method Toilet Toilet Urinal Urinal # Voids 2 Weight 88.904 kg 06/25/22 12:58 06/25/22 12:58
--- NOTE | 2022-06-26 11:02 | P.PN ---
Progress Note - Text Discussed with Dr. De Luna Patient underwent coronary angiography today Vasospasm noted him a diffuse as compared to coronary angiogram performed 2 days back No occlusive disease Plan Discontinue metoprolol Stop verapamil for vasospasm Continue nitroglycerin orally Stop heparin
--- NOTE | 2022-06-26 11:25 | P.HPIM ---
History of Present Illness H&P Date: 06/26/22 Chief Complaint: Chest pain non-ST elevated PA This is a 61-year-old male patient who presented to the ER with concerns of chest pain. Patient was here 2 days prior with chest pain and underwent cardiac catheterization on 06/24/[address] Torres which revealed patent stent in the right coronary artery patent stent of the left anterior descending artery. Intermediate lesion involving the proximal left circumflex patient was cleared for discharge with no changes. Patient states he was doing fine at home for approximately 24 hours. Patient went to his follow-up appointment with Dr. Cobb started to experience severe chest pain at that time patient was transferred to ER for further evaluation. Troponins elevated at 0.92, 0.879 and 0.723. patient was taken back to the cardiac laborer [facility] on 06/26 and was again found to have pain starts the LCA and LAD with the intermediate lesion. Overall coronary vasospasm involving the coronary tree per cardiology. Patient has past medical history of CAD, COPD, hyperlipidemia, hypertension, ex-smoker. AT This time patient is resting comfortably in bed TR band in place. Medications adjusted cardiology services will continue to monitor patient at this time. Vital signs temp 98.2, heart rate 60, blood pressure 101/71 with a pulse ox 97% on room air Review of Systems Please refer to HPI otherwise unremarkable Past Medical History Past Medical History: Coronary Artery Disease (CAD), Chest Pain / Angina, COPD, Hyperlipidemia, Hypertension, Myocardial Infarction (PA) Additional Past Medical History / Comment(s): Pt states he has hx of 3 respiratory arrests and was vented, generalized arthritis, Last Myocardial Infarction Date:: History of Any Multi-Drug Resistant Organisms: None Reported Past Surgical History: Adenoidectomy, Heart Catheterization With Stent, Hernia Repair, Joint Replacement, Orthopedic Surgery, Tonsillectomy Additional Past Surgical History / Comment(s): R inguinal hernia repair, L rotator cuff repair, bialteral total knee arthroplasties, R shoulder spur removal, teeth extracted, colonoscopy-normal. third hernia repair, left side, stents x2 2020, stents x1 11/2021 Past Anesthesia/Blood Transfusion Reactions: No Reported Reaction Date of Last Stent Placement:: 2021 Smoking Status: Former smoker - Past Family History Father Family Medical History: Cancer Additional Family Medical History / Comment(s): Father of lung cancer at the age of 62. He was a smoker. Mother Family Medical History: Cancer, Diabetes Mellitus, Hypertension Additional Family Medical History / Comment(s): Mother at age 78 from brainstem cancer. Brother(s) Additional Family Medical History / Comment(s): Patient's 1 brother with history of AAA. Patient has 4 sisters and he does not know any of their medical history. Patient's 1 son and 1 daughter living. He had one daughter that at 7 weeks old from a congenital heart. Medications and Allergies Home Medications Medication Instructions Recorded Confirmed Type Metoprolol Succinate (ER) [Toprol 50 mg PO DAILY 10/30/20 06/25/22 History XL] Clopidogrel [Plavix] 75 mg PO DAILY #30 tab 11/02/20 06/25/22 Rx Montelukast [Singulair] 10 mg PO HS 11/23/20 06/25/22 History Nitroglycerin Sl Tabs [Nitrostat] 0.4 mg SL Q5M PRN #25 tab 11/30/20 06/25/22 Rx Atorvastatin Calcium [Lipitor] 80 mg PO HS 03/25/21 06/25/22 History Isosorbide Mononitrate ER [Imdur] 60 mg PO DAILY 03/25/21 06/25/22 History Budesonide [Pulmicort] 1 mg INHALATION RT-BID ml 03/31/21 06/25/22 Rx Ipratropium-Albuterol Nebulize 3 ml INHALATION RT-Q4H PRN ml 03/31/21 06/25/22 Rx [Duoneb 0.5 mg-3 mg/3 ml Soln] Albuterol Nebulized [Ventolin 2.5 mg INHALATION RT-Q4H PRN 08/20/21 06/25/22 History Nebulized] Albuterol Sulfate [Proair Hfa] 1 - 2 puff INHALATION RT-Q4H PRN 08/20/21 06/25/22 History hydroCHLOROthiazide 12.5 mg PO DAILY 08/20/21 06/25/22 History Aspirin EC [Ecotrin Low Dose] 81 mg PO DAILY 12/13/21 06/25/22 History Famotidine [Pepcid] 20 mg PO BID 12/13/21 06/25/22 History Allergies Allergy/AdvReac Type Severity Reaction Status Date / Time [facility] [[facility]] AdvReac Nausea & Verified 06/25/22 14:28 Vomiting Physical Exam Vitals: Vital Signs Temp Pulse Pulse Resp BP BP Pulse Ox 06/26/22 10:19 60 18 101/71 97 06/26/22 03:28 84 18 132/89 98 06/26/22 02:00 16 06/26/22 00:00 85 18 125/76 99 06/25/22 20:53 72 06/25/22 20:37 70 06/25/22 20:00 17 06/25/22 19:43 98.2 F 70 18 119/74 99 06/25/22 17:10 17 06/25/22 17:00 98.4 F 70 19 154/71 96 06/25/22 16:17 98.2 F 60 18 116/84 96 06/25/22 14:33 54 L 18 129/79 95 06/25/22 12:41 97.7 F 65 18 132/92 96 Intake and Output 06/25/22 06/26/22 06/26/22 22:59 06:59 14:59 Intake Total 629.333 50 Balance 629.333 50 Intake: IV 50 Intake, IV Titration 89.333 Amount Heparin Sod,Pork in 0.45% 89.333 NaCl 25,000 unit In 0.45 % NaCl 1 250ml.bag @ 11. 248 UNITS/KG/HR 10 mls/hr IV .Q24H [facility] Rx#: [id number] Oral 540 Other: Voiding Method Toilet Toilet Urinal Urinal # Voids 2 Weight 88.904 kg Head normocephalic Neck supple Lungs clear to auscultation bilaterally no wheezing or crackles Heart regular rate and rhythm S1-S2, no rub or gallop Abdomen is soft nontender nondistended positive bowel sounds no hepatosp lenomegaly Extremities no edema Neuro alert and orientated to 3 Results CBC & Chem 7: 06/25/22 12:58 06/25/22 12:58 Labs: Abnormal Lab Results - Last 24 Hours (Table) 06/25/22 06/25/22 06/25/22 Range/Units 12:58 12:58 15:50 APTT (22.0-30.0) sec Chloride 108 H (98-107) mmol/L Carbon Dioxide 20 L (22-30) mmol/L Glucose 109 H (74-99) mg/dL Alkaline Phosphatase 136 H (38-126) U/L Troponin I 0.982 H* 0.879 H* (0.000-0.034) ng/mL 06/25/22 06/25/22 06/26/22 Range/Units 18:52 23:43 07:20 APTT 39.3 H 50.0 H (22.0-30.0) sec Chloride (98-107) mmol/L Carbon Dioxide (22-30) mmol/L Glucose (74-99) mg/dL Alkaline Phosphatase (38-126) U/L Troponin I 0.723 H* (0.000-0.034) ng/mL Thrombosis Risk Factor Assmnt - Choose All That Apply Any of the Below Risk Factors Present?: Yes Each Factor Represents 1 point: Abnormal pulmonary function (COPD), Age 41-60 years, Obesity (BMI >25) Other Risk Factors: No Thrombosis Risk Factor Assessment Total Risk Factor Score: 3 Thrombosis Risk Factor Assessment Level: Moderate Risk Assessment and Plan Plan: 1. Chest pain non-ST elevated PA status post cardiac catheterization. Per ca rdiology likely due to vasospasm 2. Recent cardiac catheterization on 06/24/2022 3. History of coronary artery disease with previous stent 4. History of COPD 5. History of essential hypertension 6. History of hyperlipidemia 7. History of osteoarthritis 8. History of narcotic addiction Time with Patient: Greater than 30 (Greater than 60% of the total time spent in counseling and coordination of care)
[2022-06-26] MEDS: ALBUTEROL NEBULIZED 2.5 MG/3 ML INHALATION PRN (13:25)
[2022-06-26 15:08] LABS: Chol/HDL Ratio 4.01 Ratio; LDL Cholesterol,Calculated 94.9 mg/dL (0.0-131.0); VLDL Calculation 17.72 mg/dL (5.00-40.00)
[2022-06-26] MEDS: MONTELUKAST 10 MG TAB PO SCH (20:16)
[2022-06-26] MEDS: ATORVASTATIN 80 MG TAB PO SCH (20:17)
[2022-06-26] MEDS: VERAPAMIL SR 120 MG TABLET.ER PO SCH (20:17)
[2022-06-26] MEDS: IPRATROPIUM-ALBUTEROL 3 ML NEB INHALATION PRN (21:23)
[2022-06-27] MEDS: MORPHINE SULFATE 4 MG/ML SYRINGE IVP PRN ×3 (01:09→22:13)
[2022-06-27] MEDS ORDERED: HEPARIN SODIUM,PORCINE 10,000 UNIT in SODIUM CHLORIDE 0.9% 1,000 ML IRRIGATION PRN (07:00)
[2022-06-27] MEDS ORDERED: HEPARIN SODIUM,PORCINE 2,500 UNIT in SODIUM CHLORIDE 0.9% 250 ML IRRIGATION PRN (07:00)
[2022-06-27] MEDS: BUDESONIDE 1 MG/2 ML NEBU INHALATION SCH ×2 (07:45→20:46)
[2022-06-27] MEDS: IPRATROPIUM-ALBUTEROL 3 ML NEB INHALATION PRN ×3 (07:45→20:46)
[2022-06-27] MEDS: ASPIRIN 81 MG PO SCH (08:31)
[2022-06-27] MEDS: FAMOTIDINE 20 MG TAB PO SCH ×2 (08:31→20:03)
[2022-06-27] MEDS: VERAPAMIL SR 120 MG TABLET.ER PO SCH ×2 (08:31→20:03)
[2022-06-27] MEDS: CLOPIDOGREL 75 MG TAB PO SCH (08:31)
[2022-06-27] MEDS: ISOSORBIDE MONONITRATE ER 30 MG TAB.ER.24H PO SCH (08:31)
[2022-06-27 08:48] LABS: Basophils # (A) 0.1 k/uL (0-0.2); Basophils % (A) 1 %; Eosinophils # (A) 0.2 k/uL (0-0.7); Eosinophils % (A) 2 %; HCT 44.7 % (39.0-53.0); HGB 15.4 gm/dL (13.0-17.5); Lymphocytes # (A) 2.7 k/uL (1.0-4.8); Lymphocytes % (A) 28 %; MCH 30.2 pg (25.0-35.0); MCHC 34.4 g/dL (31.0-37.0); Mean Platelet Volume 8.7; Monocytes # (A) 0.5 k/uL (0-1.0); Monocytes % (A) 5 %; Neutrophils # (A) 6.3 k/uL (1.3-7.7); Neutrophils % (A) 63 %; Platelet Count 179 k/uL (150-450); RBC 5.08 m/uL (4.30-5.90); RDW 13.3 % (11.5-15.5); WBC 9.9 k/uL (3.8-10.6)
[2022-06-27 08:54] LABS: ALT 34 U/L (4-49); AST 31 U/L (17-59); African American GFR (CKD) >90 (>60 ml/min/1.73 sqM); Albumin 3.8 g/dL (3.5-5.0); Alkaline Phosphatase 98 U/L (38-126); Anion Gap 8 mmol/L; Blood Urea Nitrogen 13 mg/dL (9-20); Calcium 8.9 mg/dL (8.4-10.2); Carbon Dioxide 23 mmol/L (22-30); Chloride 106 mmol/L (98-107); Glucose 92 mg/dL (74-99); Non-African American GFR(CKD) >90 (>60 ml/min/1.73 sqM); Potassium 4.5 mmol/L (3.5-5.1); Sodium 137 mmol/L (137-145); Total Bilirubin 1.1 mg/dL (0.2-1.3); Total Protein 6.5 g/dL (6.3-8.2)
--- NOTE | 2022-06-27 10:54 | P.PN ---
Subjective Progress Note Date: 06/27/22 HISTORY OF PRESENT ILLNESS: This is a 61-year-old male patient of Dr. De Luna with a past medical history significant for coronary artery disease with previous stenting of the LAD and RCA, hypertension, hyperlipidemia, COPD, and former nicotine dependence. We have been asked to see the patient in consultation for non-ST elevated IL. Patient was hospitalized earlier this week with complaints of chest pain underwent cardiac catheterization as below. Patient states that he was doing fine after discharge but followed up with his PCP, Siva Erwin and was having chest pain in the office. Also noted the heart rate and blood pressure were fluctuating. Patient states when he walks he gets lightheaded and he has to usually sit down. He did have a syncopal episode on his most recent hospitalization but none since then. Patient was given 3 nitroglycerin in the office and then an ambulance was called and he was brought into [facility] for further evaluation. Patient states he had pressure across his chest but it was sharp in the center and going to the right. He feels it was exactly the same type of pain that he experienced when he was in earlier prior to the recent cardiac catheterization. Dr. De Luna contacted and patient scheduled for cardiac catheterization. * EKG reveals sinus mechanism with no signs of acute ischemia * Chest xray negative for acute process. Correlate for COPD. * Laboratory data: CBC within normal limits. INR 0.9. Sodium 138, potassium 4.1, BUN 12 and creatinine 0.79. Troponin 0.982, 0.879, 0.7-3. Alkaline phosphatase 136 otherwise clear function tests are normal. Glucose 109. Magnesium 2.0. Sodium 140. Potassium 4.3. BUN 14. Creatinine 1.0. Troponin negative 4 * Current home cardiac medications include aspirin 81 mg daily, atorvastatin 80 mg at night, Plavix 75 mg daily, Imdur 60 mg daily, metoprolol succinate 50 mg daily, and hydrochlorothiazide 12.5 mg daily * Most recent echocardiogram obtained 06/23/2022 revealed EF of 50-55%. Borderline LVH. Trace to mild mitral regurgitation. Trace to mild tricuspid regurgitation. No pericardial effusion. * Cardiac catheterization history: 06/24/[address] De Luna revealed patent stent in the right coronary artery. Patent stent in the left anterior descending artery. Intermediate lesion involving the proximal LCx. iFR was performed and came in to be nonischemic. * Cardiac catheterization 3/31: Patent stents in the RCA and LAD. Intermediate lesion involving the mid circumflex unchanged. Overall coronary vasospasm involving the coronary tree. 06/27 Patient's vital signs have been stable. After patient's cardiac catheterization yesterday which revealed vasospasm, medication changes or made to include verapamil, discontinuing beta octaviano. Patient was also started on Imdur yesterday. Patient states he had one episode of chest pain around midnight but none since that time. Patient by systolic smoking marijuana. Plan is to increase activity monitor patient overnight with same medications and most likely will be ready for discharge tomorrow. PHYSICAL EXAM: VITAL SIGNS: Reviewed. GENERAL: Well-developed in no acute distress. HEENT: Head is normocephalic. Pupils are equal, round. Sclerae anicteric. Mucous membranes of the mouth are moist. Neck supple. No JVD LUNGS: Respirations even and unlabored. Lungs essentially clear to auscultation bilaterally. HEART: Regular rate and rhythm. S1 and S2 heard. ABDOMEN: Soft. Nondistended. Nontender. EXTREMITIES: Normal range of motion. No clubbing or cyanosis. Peripheral pulses intact. No lower extremity edema NEUROLOGIC: Awake and alert. Oriented x 3. ASSESSMENT: Non-ST elevated myocardial infarction most likely due to coronary vasospasms involving the coronary tree Coronary artery disease with previous stenting of the RCA and most recently to the LAD in November 2021 Hypertension Hyperlipidemia COPD Former nicotine dependence PLAN: Continue patient's current cardiac medications Monitor patient another 24 hours, increase activity Marijuana cessation Further recommendations pending patient's course Nurse practitioner note has been reviewed by physician. Signing provider agrees with the documented findings, assessment, and plan of care. Objective - Vital Signs Vital signs: Vital Signs Temp 97.7 F 06/27/22 04:00 Pulse 68 06/27/22 07:45 Resp 18 06/27/22 04:00 BP 100/60 06/27/22 04:00 Pulse Ox 98 06/27/22 07:45 FiO2 Intake & Output 06/26/22 06/27/22 06/27/22 18:59 06:59 18:59 Intake Total 616.75 400 Balance 616.75 400 Intake: IV 50 Intake, IV Titration 26.75 400 Amount Nitroglycerin-D5w Pmx 50 26.75 mg In Dextrose/Water 1 250ml.bag @ 5 MCG/MIN 1.5 mls/hr IV .Q24H [facility] Rx#: [id number] Sodium Chloride 0.9% 1, 400 000 ml @ 75 mls/hr IV . [id number] [facility] Rx#:[id number] Oral 540 Other: Voiding Method Toilet Urinal # Voids 3 - Labs CBC & Chem 7: 06/27/22 07:50 06/27/22 07:50 Labs: Abnormal Lab Results - Last 24 Hours (Table) 06/26/22 06/26/22 Range/Units 07:20 07:20 APTT 50.0 H (22.0-30.0) sec HDL Cholesterol 37.40 L (40.00-60.00) mg/dL
--- NOTE | 2022-06-27 12:47 | P.PN ---
Subjective Progress Note Date: 06/27/22 This is a 61-year-old male patient who presented to the ER with concerns of chest pain. Patient was here 2 days prior with chest pain and underwent cardiac catheterization on 06/24/[address] Torres which revealed patent stent in the right coronary artery patent stent of the left anterior descending artery. Intermediate lesion involving the proximal left circumflex patient was cleared for discharge with no changes. Patient states he was doing fine at home for approximately 24 hours. Patient went to his follow-up appointment with Dr. Cobb started to experience severe chest pain at that time patient was transferred to ER for further evaluation. Troponins elevated at 0.92, 0.879 and 0.723. patient was taken back to the cardiac rags laborer on 06/26 and was again found to have pain starts the LCA and LAD with the intermediate lesion. Overall coronary vasospasm involving the coronary tree per cardiology. Patient has past medical history of CAD, COPD, hyperlipidemia, hypertension, ex-smoker. AT This time patient is resting comfortably in bed TR band in place. Medications adjusted cardiology services will continue to monitor patient at this time. Vital signs temp 98.2, heart rate 60, blood pressure 101/71 with a pulse ox 97% on room air On 06/27/2022 patient was seen and examined on the medical floor he is alert and oriented 3 in no apparent distress he is still having episodes of chest pain on and off, he was reevaluated by cardiology, Imdur 30 mg by mouth daily was added to his medication regimen, otherwise patient denies any new complaints there is no fever or chills no headache or dizziness no shortness of breath no cough no nausea or vomiting no abdominal pain no diarrhea and no urinary symptoms. Objective - Vital Signs Vital signs: Vital Signs Temp 97.7 F 06/27/22 04:00 Pulse 70 06/27/22 08:03 Resp 18 06/27/22 04:00 BP 100/60 06/27/22 04:00 Pulse Ox 98 06/27/22 07:45 FiO2 Intake & Output 06/26/22 06/27/22 06/27/22 18:59 06:59 18:59 Intake Total 616.75 400 Balance 616.75 400 Intake: IV 50 Intake, IV Titration 26.75 400 Amount Nitroglycerin-D5w Pmx 50 26.75 mg In Dextrose/Water 1 250ml.bag @ 5 MCG/MIN 1.5 mls/hr IV .Q24H STA Rx#: [id number] Sodium Chloride 0.9% 1, 400 000 ml @ 75 mls/hr IV . [id number] PRASHANT Rx#:[id number] Oral 540 Other: Voiding Method Toilet Urinal # Voids 3 - Exam In general patient is alert and oriented x 3 in no distress HEENT head normocephalic and atraumatic Neck is supple no JVD no goiter no lymphadenopathy no carotid bruit Chest examination is clear to auscultation no crackles no wheezing Cardiac exam reveals regular heart sounds S1 and S2 no gallops no murmurs Abdomen is soft nontender no organomegaly with normal bowel sounds Extremity exam reveals no edema no cyanosis or clubbing Neurological examination reveals no gross focal deficits - Labs CBC & Chem 7: 06/27/22 07:50 06/27/22 07:50 Labs: Abnormal Lab Results - Last 24 Hours (Table) 06/26/22 06/26/22 Range/Units 07:20 07:20 APTT 50.0 H (22.0-30.0) sec HDL Cholesterol 37.40 L (40.00-60.00) mg/dL Assessment and Plan Plan: 1. Chest pain non-ST elevated CT status post cardiac catheterization. Per cardiology likely due to vasospasm 2. Recent cardiac catheterization on 06/24/2022 3. History of coronary artery disease with previous stent 4. History of COPD 5. History of essential hypertension 6. History of hyperlipidemia 7. History of osteoarthritis 8. History of narcotic addiction Medication and labs were reviewed Cardiology input reviewed Continue with current medications Will follow in a.m.
[2022-06-27] MEDS: ACETAMINOPHEN TAB 325 MG TAB PO PRN ×2 (13:46→21:29)
[2022-06-27] MEDS: MONTELUKAST 10 MG TAB PO SCH (20:03)
[2022-06-27] MEDS: ATORVASTATIN 80 MG TAB PO SCH (20:03)
[2022-06-28] MEDS: ISOSORBIDE MONONITRATE ER 30 MG TAB.ER.24H PO SCH (08:15)
[2022-06-28] MEDS: FAMOTIDINE 20 MG TAB PO SCH (08:15)
[2022-06-28] MEDS: VERAPAMIL SR 120 MG TABLET.ER PO SCH (08:15)
[2022-06-28] MEDS: ASPIRIN 81 MG PO SCH (08:15)
[2022-06-28] MEDS: CLOPIDOGREL 75 MG TAB PO SCH (08:15)
[2022-06-28 09:05] LABS: Basophils # (A) 0.1 k/uL (0-0.2); Basophils % (A) 1 %; Eosinophils # (A) 0.2 k/uL (0-0.7); Eosinophils % (A) 2 %; HCT 44.6 % (39.0-53.0); HGB 15.7 gm/dL (13.0-17.5); Lymphocytes # (A) 3.1 k/uL (1.0-4.8); Lymphocytes % (A) 31 %; MCHC 35.1 g/dL (31.0-37.0); MCV 88.2 fL (80.0-100.0); Mean Platelet Volume 8.7; Monocytes # (A) 0.4 k/uL (0-1.0); Monocytes % (A) 4 %; Neutrophils % (A) 61 %; Platelet Count 187 k/uL (150-450); RBC 5.06 m/uL (4.30-5.90); RDW 13.5 % (11.5-15.5)
[2022-06-28 09:29] LABS: ALT 49 U/L (4-49); AST 41 U/L (17-59); African American GFR (CKD) >90 (>60 ml/min/1.73 sqM); Albumin 4.2 g/dL (3.5-5.0); Alkaline Phosphatase 108 U/L (38-126); Anion Gap 11 mmol/L; Blood Urea Nitrogen 11 mg/dL (9-20); Calcium 9.2 mg/dL (8.4-10.2); Carbon Dioxide 22 mmol/L (22-30); Chloride 104 mmol/L (98-107); Glucose 122 mg/dL (74-99); Non-African American GFR(CKD) >90 (>60 ml/min/1.73 sqM); Potassium 4.7 mmol/L (3.5-5.1); Sodium 137 mmol/L (137-145); Total Bilirubin 0.9 mg/dL (0.2-1.3)
[2022-06-28] MEDS: BUDESONIDE 1 MG/2 ML NEBU INHALATION SCH (09:45)
--- NOTE | 2022-06-28 10:25 | P.DS ---
Providers Date of admission: 06/25/22 14:39 Expected date of discharge: 06/28/22 Attending physician: Alvin Frazier Consults: 06/25/22 14:37 Consult Physician Urgent Consulting Provider: [facility] Consult Reason/Comments: Non-STEMI Do you want consulting provider notified?: Yes Primary care physician: THEODORA Fernandez Hospital Course: Discharge diagnosis 1. Chest pain non-ST elevated [place] status post cardiac catheterization. Per cardiology likely due to vasospasm 2. Recent cardiac catheterization on 06/24/2022 3. History of coronary artery disease with previous stent 4. History of COPD 5. History of essential hypertension 6. History of hyperlipidemia 7. History of osteoarthritis 8. History of narcotic addiction Hospital course This is a 61-year-old male patient who presented to the ER with concerns of chest pain. Patient was here 2 days prior with chest pain and underwent cardiac catheterization on 06/24/[address] Torres which revealed patent stent in the right coronary artery patent stent of the left anterior descending artery. Intermediate lesion involving the proximal left circumflex patient was cleared for discharge with no changes. Patient states he was doing fine at home for approximately 24 hours. Patient went to his follow-up appointment with Dr. Cobb started to experience severe chest pain at that time patient was transferred to ER for further evaluation. Troponins elevated at 0.92, 0.879 and 0.723. patient was taken back to the cardiac medical laboratory technical officer on 06/26 and was again found to have pain starts the LCA and LAD with the intermediate lesion. Overall coronary vasospasm involving the coronary tree per cardiology. Patient has past medical history of CAD, COPD, hyperlipidemia, hypertension, ex-smoker. AT This time patient is resting comfortably in bed TR band in place. Medications adjusted cardiology services will continue to monitor patient at this time. Vital signs temp 98.2, heart rate 60, blood pressure 101/71 with a pulse ox 97% on room air On 06/27/2022 patient was seen and examined on the medical floor he is alert and oriented 3 in no apparent distress he is still having episodes of chest pain on and off, he was reevaluated by cardiology, Imdur 30 mg by mouth daily was added to his medication regimen, otherwise patient denies any new complaints there is no fever or chills no headache or dizziness no shortness of breath no cough no nausea or vomiting no abdominal pain no diarrhea and no urinary symptoms. On 06/28/2022 patient is alert and oriented 3. Patient has been cleared for discharge from cardiology standpoint. Medications adjusted to Imdur and beta octaviano DC'd and verapamil added. Patient will follow up with cardiology services. At this time patient denies chest pain or shortness breath. Patient denies nausea vomiting or diarrhea. Patient denies any urinary burning or frequency Patient Condition at Discharge: Stable Plan - Discharge Summary Discharge Rx Participant: No New Discharge Prescriptions: New Isosorbide Mononitrate ER [Imdur] 30 mg PO DAILY 30 Days #30 tab Verapamil Sr [Isoptin Sr] 120 mg PO BID 30 Days #60 tab Continue Clopidogrel [Plavix] 75 mg PO DAILY #30 tab Montelukast [Singulair] 10 mg PO HS Aspirin EC [Ecotrin Low Dose] 81 mg PO DAILY Famotidine [Pepcid] 20 mg PO BID Nitroglycerin Sl Tabs [Nitrostat] 0.4 mg SL Q5M PRN 30 Days #25 tab PRN Reason: Chest Pain Atorvastatin Calcium [Lipitor] 80 mg PO HS Ipratropium-Albuterol Nebulize [Duoneb 0.5 mg-3 mg/3 ml Soln] 3 ml INHALATION RT-Q4H PRN ml PRN Reason: Shortness Of Breath Or Wheezing Budesonide [Pulmicort] 1 mg INHALATION RT-BID ml Albuterol Sulfate [Proair Hfa] 1 - 2 puff INHALATION RT-Q4H PRN PRN Reason: Shortness Of Breath Albuterol Nebulized [Ventolin Nebulized] 2.5 mg INHALATION RT-Q4H PRN PRN Reason: Shortness Of Breath Discontinued Metoprolol Succinate (ER) [Toprol XL] 50 mg PO DAILY Isosorbide Mononitrate ER [Imdur] 60 mg PO DAILY hydroCHLOROthiazide 12.5 mg PO DAILY Discharge Medication List Clopidogrel [Plavix] 75 mg PO DAILY #30 tab 11/02/20 [Rx] Montelukast [Singulair] 10 mg PO HS 11/23/20 [History] Atorvastatin Calcium [Lipitor] 80 mg PO HS 03/25/21 [History] Budesonide [Pulmicort] 1 mg INHALATION RT-BID ml 03/31/21 [Rx] Ipratropium-Albuterol Nebulize [Duoneb 0.5 mg-3 mg/3 ml Soln] 3 ml INHALATION RT-Q4H PRN ml 03/31/21 [Rx] Albuterol Nebulized [Ventolin Nebulized] 2.5 mg INHALATION RT-Q4H PRN 08/20/21 [History] Albuterol Sulfate [Proair Hfa] 1 - 2 puff INHALATION RT-Q4H PRN 08/20/21 [History] Aspirin EC [Ecotrin Low Dose] 81 mg PO DAILY 12/13/21 [History] Famotidine [Pepcid] 20 mg PO BID 12/13/21 [History] Isosorbide Mononitrate ER [Imdur] 30 mg PO DAILY 30 Days #30 tab 06/28/22 [Rx] Nitroglycerin Sl Tabs [Nitrostat] 0.4 mg SL Q5M PRN 30 Days #25 tab 06/28/22 [Rx] Verapamil Sr [Isoptin Sr] 120 mg PO BID 30 Days #60 tab 06/28/22 [Rx] Follow up Appointment(s)/Referral(s): Ava Erwin, NPC [Primary Care Provider] - 1-2 days Activity/Diet/Wound Care/Special Instructions: patient reports he has follow-up appointment with Dr. Torres arranged Diet heart healthy Discharge Disposition: HOME SELF-CARE
[2022-06-28 11:08] VITALS: BP 131/75; PULSE 65; RESP 16; TEMP 97.9
--- NOTE | 2022-06-28 11:17 | P.PN ---
Subjective Progress Note Date: 06/28/22 HISTORY OF PRESENT ILLNESS: This is a 61-year-old male patient of Dr. De Luna with a past medical history significant for coronary artery disease with previous stenting of the LAD and RCA, hypertension, hyperlipidemia, COPD, and former nicotine dependence. We have been asked to see the patient in consultation for non-ST elevated CO. Patient was hospitalized earlier this week with complaints of chest pain underwent cardiac catheterization as below. Patient states that he was doing fine after discharge but followed up with his PCP, Siva Erwin and was having chest pain in the office. Also noted the heart rate and blood pressure were fluctuating. Patient states when he walks he gets lightheaded and he has to usually sit down. He did have a syncopal episode on his most recent hospitalization but none since then. Patient was given 3 nitroglycerin in the office and then an ambulance was called and he was brought into [facility] for further evaluation. Patient states he had pressure across his chest but it was sharp in the center and going to the right. He feels it was exactly the same type of pain that he experienced when he was in earlier prior to the recent cardiac catheterization. Dr. De Luna contacted and patient scheduled for cardiac catheterization. * EKG reveals sinus mechanism with no signs of acute ischemia * Chest xray negative for acute process. Correlate for COPD. * Laboratory data: CBC within normal limits. INR 0.9. Sodium 138, potassium 4.1, BUN 12 and creatinine 0.79. Troponin 0.982, 0.879, 0.7-3. Alkaline phosphatase 136 otherwise clear function tests are normal. Glucose 109. Magnesium 2.0. Sodium 140. Potassium 4.3. BUN 14. Creatinine 1.0. Troponin negative 4 * Current home cardiac medications include aspirin 81 mg daily, atorvastatin 80 mg at night, Plavix 75 mg daily, Imdur 60 mg daily, metoprolol succinate 50 mg daily, and hydrochlorothiazide 12.5 mg daily * Most recent echocardiogram obtained 06/23/2022 revealed EF of 50-55%. Borderline LVH. Trace to mild mitral regurgitation. Trace to mild tricuspid regurgitation. No pericardial effusion. * Cardiac catheterization history: 06/24/[address] De Luna revealed patent stent in the right coronary artery. Patent stent in the left anterior descending artery. Intermediate lesion involving the proximal LCx. iFR was performed and came in to be nonischemic. * Cardiac catheterization 3/31: Patent stents in the RCA and LAD. Intermediate lesion involving the mid circumflex unchanged. Overall coronary vasospasm involving the coronary tree. 06/27 Patient's vital signs have been stable. After patient's cardiac catheterization yesterday which revealed vasospasm, medication changes or made to include verapamil, discontinuing beta octaviano. Patient was also started on Imdur yesterday. Patient states he had one episode of chest pain around midnight but none since that time. Patient by systolic smoking marijuana. Plan is to increase activity monitor patient overnight with same medications and most likely will be ready for discharge tomorrow. 06/28 Patient states that he had one episode of chest pain and took some aspirin but morphine did seem to help it. He has been ambulating the hallway and feels a little bit of pressure in his chest. Blood pressure 135/77, heart rate 72, pul se ox 96% on room air. Patient has been advised that he may continue to have episodes of chest pain but continued to take the medication. Patient advised to keep active. PHYSICAL EXAM: VITAL SIGNS: Reviewed. GENERAL: Well-developed in no acute distress. HEENT: Head is normocephalic. Pupils are equal, round. Sclerae anicteric. Mucous membranes of the mouth are moist. Neck supple. No JVD LUNGS: Respirations even and unlabored. Lungs essentially clear to auscultation bilaterally. HEART: Regular rate and rhythm. S1 and S2 heard. ABDOMEN: Soft. Nondistended. Nontender. EXTREMITIES: Normal range of motion. No clubbing or cyanosis. Peripheral pulses intact. No lower extremity edema NEUROLOGIC: Awake and alert. Oriented x 3. ASSESSMENT: Non-ST elevated myocardial infarction most likely due to coronary vasospasms involving the coronary tree Coronary artery disease with previous stenting of the RCA and most recently to the LAD in November 2021 Hypertension Hyperlipidemia COPD Former nicotine dependence PLAN: Continue patient's current cardiac medications If patient continues to have chest pain, Imdur may be increased to 30 mg twice daily Marijuana cessation Patient is cleared for discharge from cardiology and may follow-up with Dr. De Luna in 1-2 weeks. Nurse practitioner note has been reviewed by physician. Signing provider agrees with the documented findings, assessment, and plan of care. Objective - Vital Signs Vital signs: Vital Signs Temp 97.6 F 06/27/22 23:37 Pulse 72 06/28/22 03:48 Resp 18 06/28/22 03:48 BP 135/77 06/28/22 03:48 Pulse Ox 96 06/28/22 03:48 FiO2 Intake & Output 06/27/22 06/28/22 06/28/22 18:59 06:59 18:59 Intake Total 2700 780 240 Balance 2700 780 240 Intake: Oral 2700 780 240 Other: Voiding Method Toilet Toilet Urinal Urinal # Voids 2 2 1 # Bowel Movements 0 - Labs CBC & Chem 7: 06/28/22 08:24 06/28/22 08:24
== END 2022-06-28 11:40 | disposition home or self-care (01) | DRG 282 ==
LOC: EC 12:38 → 3SCARD 14:39
PROVIDERS: ADMIT Internal Medicine; ATTEND Internal Medicine
PROC: B2111ZZ Fluoroscopy of Multiple Coronary Arteries using Low Osmolar Contrast (ICD-10-PCS; principal; 2022-06-26 10:40)
DX: I21.4 Non-ST elevation (NSTEMI) myocardial infarction (principal); E78.00 Pure hypercholesterolemia, unspecified; J44.9 Chronic obstructive pulmonary disease, unspecified; I25.111 Atherosclerotic heart disease of native coronary artery with angina pectoris with documented spasm; F11.21 Opioid dependence, in remission; I10 Essential (primary) hypertension; M15.9 Polyosteoarthritis, unspecified; I49.3 Ventricular premature depolarization; I25.2 Old myocardial infarction; Z79.82 Long term (current) use of aspirin; Z79.02 Long term (current) use of antithrombotics/antiplatelets; Z79.899 Other long term (current) drug therapy; Z95.5 Presence of coronary angioplasty implant and graft; Z87.891 Personal history of nicotine dependence; Z82.49 Family history of ischemic heart disease and other diseases of the circulatory system
CPT/HCPCS: 36415; 71046; 80053; 80061; 83735; 84484; 85025; 85610; 85730; 93005; 93458; 94640; 94760; 96365; 96375; 99285

== ENCOUNTER 2022-07-25 21:39 | Emergency (ER) | payer MEDICARE, OTHER ==
[2022-07-25 21:59] VITALS: RESP 20; TEMP 98.1
[2022-07-25] MEDS ORDERED: IPRATROPIUM-ALBUTEROL 3 ML NEB INHALATION STA (22:36)
[2022-07-25] MEDS ORDERED: predniSONE 20 MG TAB PO STA (22:36)
--- NOTE | 2022-07-25 22:40 | ED ---
SOB HPI - General Chief Complaint: Shortness of Breath Stated Complaint: COPD Time Seen by Provider: 07/25/22 22:01 Source: patient Mode of arrival: ambulatory Limitations: no limitations - History of Present Illness Initial Comments: This patient is a 61-year-old man who states that his baseline COPD symptoms have been worsening since Wednesday. He states that he is having to take his inhaled medications more frequently. He is coughing a little more frequently. He is not having any sputum. He is noting increased wheeze. He states that usually when this happens he needs to see his physician and be put on a steroid taper. He states that because of it being a weekend he had come emergency department. He has not noted fevers or chills. No chest pain. No change in urination or bowel movements. No leg pain or swelling. MD Complaint: shortness of breath, cough Onset/Timin -: days(s) Consistency: constant Improves With: nothing Worsens With: nothing Known History Of: COPD Associated Symptoms: cough Treatments Prior to Arrival: none - Related Data Home Oxygen Therapy: No Home Medications Medication Instructions Recorded Confirmed Montelukast [Singulair] 10 mg PO HS 11/23/20 07/28/22 Atorvastatin Calcium [Lipitor] 80 mg PO HS 03/25/21 07/28/22 Albuterol Nebulized [Ventolin 2.5 mg INHALATION RT-Q4H PRN 08/20/21 07/28/22 Nebulized] Albuterol Sulfate [Proair Hfa] 2 puff INHALATION RT-Q4H PRN 08/20/21 07/28/22 Aspirin EC [Ecotrin Low Dose] 81 mg PO DAILY 12/13/21 07/28/22 Famotidine [Pepcid] 20 mg PO BID 12/13/21 07/28/22 Previous Rx's Medication Instructions Recorded Clopidogrel [Plavix] 75 mg PO DAILY #30 tab 11/02/20 Budesonide [Pulmicort] 1 mg INHALATION RT-BID ml 03/31/21 Ipratropium-Albuterol Nebulize 3 ml INHALATION RT-Q4H PRN ml 03/31/21 [Duoneb 0.5 mg-3 mg/3 ml Soln] Isosorbide Mononitrate ER [Imdur] 30 mg PO DAILY 30 Days #30 tab 04/02/23 Nitroglycerin Sl Tabs [Nitrostat] 0.4 mg SL Q5M PRN 30 Days #25 tab 06/28/22 Verapamil Sr [Isoptin Sr] 120 mg PO BID 30 Days #60 tab 06/28/22 Acetaminophen Tab [Tylenol] 650 mg PO Q6HR PRN tab 07/29/22 predniSONE 10 mg PO DIRECTED #30 tab 07/29/22 Allergies Allergy/AdvReac Type Severity Reaction Status Date / Time levofloxacin [From Levaquin] AdvReac Nausea & Verified 07/28/22 10:09 Vomiting Review of Systems ROS Statement: Those systems with pertinent positive or pertinent negative responses have been documented in the HPI. ROS Other: All systems not noted in ROS Statement are negative. Constitutional: Denies: fever, chills Respiratory: Reports: cough, dyspnea, wheezes. Denies: hemoptysis Cardiovascular: Denies: chest pain, palpitations, orthopnea, edema, syncope Gastrointestinal: Denies: abdominal pain, vomiting, diarrhea, melena, hematochezia Genitourinary: Denies: dysuria, hematuria Musculoskeletal: Denies: back pain Skin: Denies: rash Neurological: Denies: headache, weakness Past Medical History Past Medical History: Coronary Artery Disease (CAD), Chest Pain / Angina, COPD, Hyperlipidemia, Hypertension, Myocardial Infarction ([place]) Additional Past Medical History / Comment(s): Pt states he has hx of 3 respiratory arrests and was vented, generalized arthritis, Last Myocardial Infarction Date:: History of Any Multi-Drug Resistant Organisms: None Reported Past Surgical History: Adenoidectomy, Heart Catheterization With Stent, Hernia Repair, Joint Replacement, Orthopedic Surgery, Tonsillectomy Additional Past Surgical History / Comment(s): R inguinal hernia repair, L rotator cuff repair, bialteral total knee arthroplasties, R shoulder spur removal, teeth extracted, colonoscopy-normal. third hernia repair, left side, stents x2 2020, stents x1 11/2021 Past Anesthesia/Blood Transfusion Reactions: No Reported Reaction Date of Last Stent Placement:: 2021 Past Psychological History: No Psychological Hx Reported Smoking Status: Former smoker Past Alcohol Use History: None Reported Past Drug Use History: None Reported - Past Family History Father Family Medical History: Cancer Additional Family Medical History / Comment(s): Father of lung cancer at the age of 62. He was a smoker. Mother Family Medical History: Cancer, Diabetes Mellitus, Hypertension Additional Family Medical History / Comment(s): Mother at age 78 from brainstem cancer. Brother(s) Additional Family Medical History / Comment(s): Patient's 1 brother with history of AAA. Patient has 4 sisters and he does not know any of their medical history. Patient's 1 son and 1 daughter living. He had one daughter that at 7 weeks old from a congenital heart. General Exam Limitations: no limitations General appearance: alert, in no apparent distress Head exam: Present: atraumatic, normocephalic Eye exam: Present: normal appearance. Absent: scleral icterus, conjunctival injection Neck exam: Present: normal inspection Respiratory exam: Present: wheezes. Absent: respiratory distress, rales, rhonchi, stridor, accessory muscle use, decreased breath sounds Cardiovascular Exam: Present: regular rate, normal rhythm, normal heart sounds. Absent: systolic murmur, diastolic murmur, rubs, gallop GI/Abdominal exam: Present: soft. Absent: distended, tenderness, guarding, rebound, rigid, mass Back exam: Present: normal inspection. Absent: CVA tenderness (R), CVA tenderness (L) Neurological exam: Present: alert Skin exam: Present: warm, dry, intact, normal color. Absent: rash Course Vital Signs 07/25/22 07/25/22 07/25/22 21:56 22:10 22:14 Temperature 98.1 F Pulse Rate 70 Respiratory 20 20 Rate Blood Pressure 108/71 113/72 O2 Sat by Pulse 97 Oximetry 07/25/22 07/25/22 07/25/22 22:15 22:30 22:45 Temperature Pulse Rate 62 Respiratory Rate Blood Pressure 113/72 119/80 123/92 O2 Sat by Pulse 96 97 Oximetry 07/25/22 07/25/22 07/25/22 23:00 23:07 23:15 Temperature Pulse Rate 68 62 Respiratory Rate Blood Pressure 122/77 130/68 O2 Sat by Pulse 98 Oximetry 07/25/22 07/25/22 07/26/22 23:22 23:30 01:00 Temperature Pulse Rate 67 63 Respiratory 20 Rate Blood Pressure 109/84 116/78 O2 Sat by Pulse 96 87 L Oximetry Medical Decision Making - Medical Decision Making The patient had chest x-ray which I interpreted as not showing acute infiltrate, congestive heart failure, or pneumothorax. Was pt. sent in by a medical professional or institution (HERMINIO Shah, SAFETY ENGINEER, urgent care, hospital, or long-term...) When possible be specific @ -[No] Did you speak to anyone other than the patient for history (EMS, parent, family, police, friend...)? What history was obtained from this source @ -[No] Did you review nursing and triage notes (agree or disagree)? Why? @ -[I reviewed and agree with nursing and triage notes] Were old charts reviewed (outside hosp., previous admission, EMS record, old EKG, old radiological studies, urgent care reports/EKG's, long-term records)? Report findings @ -[No old charts were reviewed] Differential Diagnosis (chest pain, altered mental status, abdominal pain women, abdominal pain men, vaginal bleeding, weakness, fever, dyspnea, syncope, headache, dizziness, GI bleed, back pain, seizure, CVA, palpatations, mental health, musculoskeletal)? @ -[Differential Dyspnea: Coronary syndrome, arrhythmia, tamponade, asthma, COPD, pulmonary embolism, pneumonia, pneumothorax, pulmonary effusion, anaphylaxis, diabetic ketoacidosis, flailed chest, pulmonary contusion, diaphragmatic rupture, anemia, neuromuscular, this is not meant to be an all-inclusive list. Dyspnea EKG interpreted by me (3pts min.). @ -[As above] X-rays interpreted by me (1pt min.). @ -[As above CT interpreted by me (1pt min.). @ -[None done] U/S interpreted by me (1pt. min.). @ -[None done] What testing was considered but not performed or refused? (CT, X-rays, U/S, labs)? Why? @ -[None] What meds were considered but not given or refused? Why? @ -[None] Did you discuss the management of the patient with other professionals (professionals i.e. HERMINIO Shah, SAFETY ENGINEER, lab, RT, psych nurse, socially responsible investment adviser, roll cutting operator, teacher, peace officer, foster care case manager)? Give summary @ -[No] Was smoking cessation discussed for >3mins.? @ -[No] Was critical care preformed (if so, how long)? @ -[No] Were there social determinants of health that impacted care today? How? (Homelessness, low income, unemployed, alcoholism, drug addiction, transportatio n, low edu. Level, literacy, decrease access to med. care, group home, rehab)? @ -[No] Was there de-escalation of care discussed even if they declined (Discuss DNR or withdrawal of care, Hospice)? DNR status @ -[No] What co-morbidities impacted this encounter? (DM, HTN, Smoking, COPD, CAD, Cancer, CVA, ARF, Chemo, Hep., AIDS, mental health diagnosis, sleep apnea, morbid obesity)? @ -[COPD Was patient admitted / discharged? Hospital course, mention meds given and route, prescriptions, significant lab abnormalities, going to OR and other pertinent info. @ -[Discharged. Patient feeling better following treatment here in the department. We discussed appropriate further care and follow-up as well as return parameters. Undiagnosed new problem with uncertain prognosis? @ -[No] Drug Therapy requiring intensive monitoring for toxicity (Heparin, Nitro, Insulin, Cardizem)? @ -[No] Were any procedures done? @ -[No] Diagnosis/symptom? @ -[Acute exacerbation of COPD Acute, or Chronic, or Acute on Chronic? @ -[default] Uncomplicated (without systemic symptoms) or Complicated (systemic symptoms)? @ -[Uncomplicated Side effects of treatment? @ -[No] Exacerbation, Progression, or Severe Exacerbation? @ -[Exacerbation of COPD Poses a threat to life or bodily function? How? (Chest pain, [place], [place], pneumonia, PE, COPD, DKA, ARF, appy, cholecystitis, CVA, Diverticulitis, Homicidal, Suicidal, threat to staff... and all critical care pts) @ -[No] - Lab Data Result diagrams: 07/25/22 22:40 07/25/22 22:40 Lab Results 07/25/22 07/25/22 07/25/22 Range/Units 22:40 22:40 22:40 WBC 8.4 (3.8-10.6) k/uL RBC 4.98 (4.30-5.90) m/uL Hgb 14.8 (13.0-17.5) gm/dL Hct 44.0 (39.0-53.0) % MCV 88.3 (80.0-100.0) fL MCH 29.8 (25.0-35.0) pg MCHC 33.7 (31.0-37.0) g/dL RDW 13.0 (11.5-15.5) % Plt Count 201 (150-450) k/uL MPV 8.5 Neutrophils % 56 % Lymphocytes % 35 % Monocytes % 5 % Eosinophils % 3 % Basophils % 0 % Neutrophils # 4.7 (1.3-7.7) k/uL Lymphocytes # 3.0 (1.0-4.8) k/uL Monocytes # 0.4 (0-1.0) k/uL Eosinophils # 0.2 (0-0.7) k/uL Basophils # 0.0 (0-0.2) k/uL PT (9.0-12.0) sec INR (<1.2) APTT (22.0-30.0) sec Sodium 137 (137-145) mmol/L Potassium 5.0 (3.5-5.1) mmol/L Chloride 103 (98-107) mmol/L Carbon Dioxide 24 (22-30) mmol/L Anion Gap 10 mmol/L BUN 13 (9-20) mg/dL Creatinine 0.70 (0.66-1.25) mg/dL Est GFR (CKD-EPI)AfAm >90 (>60 ml/min/1.73 sqM) Est GFR (CKD-EPI)NonAf >90 (>60 ml/min/1.73 sqM) Glucose 100 H (74-99) mg/dL Plasma Lactic Acid Rito 1.1 (0.7-2.0) mmol/L Calcium 8.8 (8.4-10.2) mg/dL Total Bilirubin 1.2 (0.2-1.3) mg/dL AST 46 (17-59) U/L ALT 32 (4-49) U/L Alkaline Phosphatase 84 (38-126) U/L Troponin I (0.000-0.034) ng/mL NT-Pro-B Natriuret Pep pg/mL Total Protein 7.1 (6.3-8.2) g/dL Albumin 4.1 (3.5-5.0) g/dL Influenza Type A (PCR) (Not Detectd) Influenza Type B (PCR) (Not Detectd) RSV (PCR) (Not Detectd) SARS-CoV-2 (PCR) (Not Detectd) 07/25/22 07/25/22 07/26/22 Range/Units 22:40 22:40 00:31 WBC (3.8-10.6) k/uL RBC (4.30-5.90) m/uL Hgb (13.0-17.5) gm/dL Hct (39.0-53.0) % MCV (80.0-100.0) fL MCH (25.0-35.0) pg MCHC (31.0-37.0) g/dL RDW (11.5-15.5) % Plt Count (150-450) k/uL MPV Neutrophils % % Lymphocytes % % Monocytes % % Eosinophils % % Basophils % % Neutrophils # (1.3-7.7) k/uL Lymphocytes # (1.0-4.8) k/uL Monocytes # (0-1.0) k/uL Eosinophils # (0-0.7) k/uL Basophils # (0-0.2) k/uL PT 9.6 (9.0-12.0) sec INR 0.9 (<1.2) APTT 24.0 (22.0-30.0) sec Sodium (137-145) mmol/L Potassium (3.5-5.1) mmol/L Chloride (98-107) mmol/L Carbon Dioxide (22-30) mmol/L Anion Gap mmol/L BUN (9-20) mg/dL Creatinine (0.66-1.25) mg/dL Est GFR (CKD-EPI)AfAm (>60 ml/min/1.73 sqM) Est GFR (CKD-EPI)NonAf (>60 ml/min/1.73 sqM) Glucose (74-99) mg/dL Plasma Lactic Acid Rito (0.7-2.0) mmol/L Calcium (8.4-10.2) mg/dL Total Bilirubin (0.2-1.3) mg/dL AST (17-59) U/L ALT (4-49) U/L Alkaline Phosphatase (38-126) U/L Troponin I 0.025 (0.000-0.034) ng/mL NT-Pro-B Natriuret Pep 70 pg/mL Total Protein (6.3-8.2) g/dL Albumin (3.5-5.0) g/dL Influenza Type A (PCR) (Not Detectd) Influenza Type B (PCR) (Not Detectd) RSV (PCR) (Not Detectd) SARS-CoV-2 (PCR) (Not Detectd) 07/26/22 Range/Units 00:49 WBC (3.8-10.6) k/uL RBC (4.30-5.90) m/uL Hgb (13.0-17.5) gm/dL Hct (39.0-53.0) % MCV (80.0-100.0) fL MCH (25.0-35.0) pg MCHC (31.0-37.0) g/dL RDW (11.5-15.5) % Plt Count (150-450) k/uL MPV Neutrophils % % Lymphocytes % % Monocytes % % Eosinophils % % Basophils % % Neutrophils # (1.3-7.7) k/uL Lymphocytes # (1.0-4.8) k/uL Monocytes # (0-1.0) k/uL Eosinophils # (0-0.7) k/uL Basophils # (0-0.2) k/uL PT (9.0-12.0) sec INR (<1.2) APTT (22.0-30.0) sec Sodium (137-145) mmol/L Potassium (3.5-5.1) mmol/L Chloride (98-107) mmol/L Carbon Dioxide (22-30) mmol/L Anion Gap mmol/L BUN (9-20) mg/dL Creatinine (0.66-1.25) mg/dL Est GFR (CKD-EPI)AfAm (>60 ml/min/1.73 sqM) Est GFR (CKD-EPI)NonAf (>60 ml/min/1.73 sqM) Glucose (74-99) mg/dL Plasma Lactic Acid Rito (0.7-2.0) mmol/L Calcium (8.4-10.2) mg/dL Total Bilirubin (0.2-1.3) mg/dL AST (17-59) U/L ALT (4-49) U/L Alkaline Phosphatase (38-126) U/L Troponin I (0.000-0.034) ng/mL NT-Pro-B Natriuret Pep pg/mL Total Protein (6.3-8.2) g/dL Albumin (3.5-5.0) g/dL Influenza Type A (PCR) Not Detected (Not Detectd) Influenza Type B (PCR) Not Detected (Not Detectd) RSV (PCR) Not Detected (Not Detectd) SARS-CoV-2 (PCR) Not Detected (Not Detectd) - EKG Data -: EKG Interpreted by Ar EKG shows normal: sinus rhythm (With sinus arrhythmia, rate 77 bpm), axis (Order one left axis deviation), intervals (Normal), QRS complexes (Normal), ST-T waves (Normal) Rate: normal Disposition Clinical Impression: Acute exacerbation of chronic obstructive airways disease Disposition: HOME SELF-CARE Condition: Good Instructions (If sedation given, give patient instructions): COPD (Chronic Obstructive Pulmonary Disease) (ED) Is patient prescribed a controlled substance at d/c from ED?: No Referrals: Ava Erwin NPC [Family Provider] - 1-2 days
[2022-07-25 23:09] LABS: Basophils % (A) 0 %; Eosinophils # (A) 0.2 k/uL (0-0.7); Eosinophils % (A) 3 %; HGB 14.8 gm/dL (13.0-17.5); Lymphocytes % (A) 35 %; MCH 29.8 pg (25.0-35.0); MCHC 33.7 g/dL (31.0-37.0); MCV 88.3 fL (80.0-100.0); Mean Platelet Volume 8.5; Monocytes # (A) 0.4 k/uL (0-1.0); Monocytes % (A) 5 %; Neutrophils # (A) 4.7 k/uL (1.3-7.7); Neutrophils % (A) 56 %; Platelet Count 201 k/uL (150-450); RBC 4.98 m/uL (4.30-5.90); WBC 8.4 k/uL (3.8-10.6)
[2022-07-25 23:39] LABS: ALT 32 U/L (4-49); AST 46 U/L (17-59); African American GFR (CKD) >90 (>60 ml/min/1.73 sqM); Albumin 4.1 g/dL (3.5-5.0); Alkaline Phosphatase 84 U/L (38-126); Anion Gap 10 mmol/L; Blood Urea Nitrogen 13 mg/dL (9-20); Calcium 8.8 mg/dL (8.4-10.2); Carbon Dioxide 24 mmol/L (22-30); Chloride 103 mmol/L (98-107); Glucose 100 mg/dL (74-99); Non-African American GFR(CKD) >90 (>60 ml/min/1.73 sqM); Sodium 137 mmol/L (137-145); Total Bilirubin 1.2 mg/dL (0.2-1.3); Total Protein 7.1 g/dL (6.3-8.2)
[2022-07-25 23:46] VITALS: PULSE 63
--- NOTE | 2022-07-25 23:59 | XR ---
EXAM: XR Chest, 2 Views CLINICAL HISTORY: ITS.REASON XR Reason: difficulty breathing TECHNIQUE: Frontal and lateral views of the chest. COMPARISON: 06/25/2022 FINDINGS: Lungs: No consolidation. Pleural space: Unremarkable. No pneumothorax. Heart: No cardiomegaly. Bones/joints: No acute osseous abnormality. IMPRESSION: No acute cardiopulmonary abnormality.
[2022-07-26 01:31] LABS: INR 0.9 (<1.2); Prothrombin Time 9.6 sec (9.0-12.0)
[2022-07-26 02:01] VITALS: BP 116/78
== END 2022-07-26 02:10 | disposition home or self-care (01) ==
LOC: EC 21:39
DX: J44.1 Chronic obstructive pulmonary disease with (acute) exacerbation (principal); I10 Essential (primary) hypertension; I25.10 Atherosclerotic heart disease of native coronary artery without angina pectoris; I25.2 Old myocardial infarction; E78.5 Hyperlipidemia, unspecified; Z79.82 Long term (current) use of aspirin; Z79.899 Other long term (current) drug therapy; Z88.1 Allergy status to other antibiotic agents; Z87.891 Personal history of nicotine dependence; Z20.822 Contact with and (suspected) exposure to COVID-19
CPT/HCPCS: 36415 ×2; 94640; 93005; 83880; 80053; 83605; 84484; 85025; 85610; 85730; 87636; 71046; 99285; J7512

== ENCOUNTER 2022-07-28 08:17 | Observation (INO) | payer MEDICARE, OTHER ==
[2022-07-28] MEDS ORDERED: NITROGLYCERIN SL TABS 0.4 MG TAB SUBLINGUAL STA (08:31)
[2022-07-28] MEDS ORDERED: SODIUM CHLORIDE 0.9% 1,000 ML IV STA (08:31)
[2022-07-28] MEDS ORDERED: IPRATROPIUM-ALBUTEROL 3 ML NEB INHALATION STA (08:31)
[2022-07-28] MEDS ORDERED: ASPIRIN 81 MG PO STA (08:31)
[2022-07-28 08:45] LABS: Basophils # (A) 0.1 k/uL (0-0.2); Basophils % (A) 1 %; Eosinophils # (A) 0.1 k/uL (0-0.7); Eosinophils % (A) 1 %; HCT 43.8 % (39.0-53.0); HGB 14.7 gm/dL (13.0-17.5); Lymphocytes # (A) 5.6 k/uL (1.0-4.8); Lymphocytes % (A) 40 %; MCH 29.8 pg (25.0-35.0); MCHC 33.7 g/dL (31.0-37.0); MCV 88.6 fL (80.0-100.0); Mean Platelet Volume 8.1; Monocytes # (A) 0.6 k/uL (0-1.0); Monocytes % (A) 5 %; Neutrophils # (A) 7.4 k/uL (1.3-7.7); Neutrophils % (A) 53 %; Platelet Count 222 k/uL (150-450); RBC 4.94 m/uL (4.30-5.90); RDW 13.1 % (11.5-15.5); WBC 14.1 k/uL (3.8-10.6)
[2022-07-28 08:56] LABS: ALT 33 U/L (4-49); AST 25 U/L (17-59); African American GFR (CKD) >90 (>60 ml/min/1.73 sqM); Albumin 4.2 g/dL (3.5-5.0); Alkaline Phosphatase 107 U/L (38-126); Anion Gap 10 mmol/L; Blood Urea Nitrogen 18 mg/dL (9-20); Calcium 8.9 mg/dL (8.4-10.2); Carbon Dioxide 22 mmol/L (22-30); Chloride 105 mmol/L (98-107); Glucose 106 mg/dL (74-99); Magnesium 2.1 mg/dL (1.6-2.3); Non-African American GFR(CKD) >90 (>60 ml/min/1.73 sqM); Potassium 4.1 mmol/L (3.5-5.1); Sodium 137 mmol/L (137-145); Total Bilirubin 0.6 mg/dL (0.2-1.3); Total Protein 6.8 g/dL (6.3-8.2)
--- NOTE | 2022-07-28 09:02 | ED ---
General Adult HPI - General Chief complaint: Chest Pain Stated complaint: Chest pain Time Seen by Provider: 07/28/22 08:23 Source: patient, RN notes reviewed, old records reviewed Mode of arrival: ambulatory Limitations: no limitations - History of Present Illness Initial comments: Patient is a 61-year-old male with past medical history remarkable for multiple cardiac stents, CAD, COPD, hypertension, prior respiratory arrest presents emergency Department complaining of sudden onset chest pain. States he awoke with some chest discomfort. Has been in treatment for COPD exacerbation and has been on steroids as well as breathing treatments. Took a breathing treatment and began having some sharp substernal chest pain that was relieved with one nit roglycerin tablet. Still having some substernal chest pressure. Denies any radiation of the pain. Endorses an episode of diaphoresis earlier today. Denies any nausea, vomiting, abdominal pain. Denies any lightheadedness or blurry vision. No other acute complaints at this time. Was recently seen a few days ago and diagnosed with a COPD exacerbation and started on prednisone at that time. Since her further evaluation over concern for his chest pain. He did take 1 baby aspirin this morning. Most recent stenting was done in November 2021. This was done of the LAD. Prior stenting of the RCA. Most recent cardiac cath was 06/26/2022 that showed an intermediate lesion involving the mid circumflex. Dr. De Luna also performed a cardiac cath on 06/24/2022 which showed similar findings. - Related Data Home Medications Medication Instructions Recorded Confirmed Montelukast [Singulair] 10 mg PO HS 11/23/20 06/25/22 Atorvastatin Calcium [Lipitor] 80 mg PO HS 03/25/21 06/25/22 Albuterol Nebulized [Ventolin 2.5 mg INHALATION RT-Q4H PRN 08/20/21 06/25/22 Nebulized] Albuterol Sulfate [Proair Hfa] 1 - 2 puff INHALATION RT-Q4H PRN 08/20/2105/29 Aspirin EC [Ecotrin Low Dose] 81 mg PO DAILY 12/13/21 06/25/22 Famotidine [Pepcid] 20 mg PO BID 12/13/21 06/25/22 Previous Rx's Medication Instructions Recorded Clopidogrel [Plavix] 75 mg PO DAILY #30 tab 11/02/20 Budesonide [Pulmicort] 1 mg INHALATION RT-BID ml 03/31/21 Ipratropium-Albuterol Nebulize 3 ml INHALATION RT-Q4H PRN ml 03/31/21 [Duoneb 0.5 mg-3 mg/3 ml Soln] Isosorbide Mononitrate ER [Imdur] 30 mg PO DAILY 30 Days #30 tab 06/28/22 Nitroglycerin Sl Tabs [Nitrostat] 0.4 mg SL Q5M PRN 30 Days #25 tab 06/28/22 Verapamil Sr [Isoptin Sr] 120 mg PO BID 30 Days #60 tab 06/28/22 predniSONE 60 mg PO DAILY #30 tab 07/26/22 Allergies Allergy/AdvReac Type Severity Reaction Status Date / Time levofloxacin [From Levaquin] AdvReac Nausea & Verified 07/28/22 10:09 Vomiting Review of Systems ROS Statement: Those systems with pertinent positive or pertinent negative responses have been documented in the HPI. Review of Systems: CONST: Denies fever EYES: Denies blurry vision ENT: Denies nasal congestion C/V: Endorses chest pain RESP: Denies shortness of breath GI: Denies abdominal pain : Denies dysuria SKIN: Denies rash. MSK: Denies joint pain. NEURO: Denies headache ROS Other: All systems not noted in ROS Statement are negative. Past Medical History Past Medical History: Coronary Artery Disease (CAD), Chest Pain / Angina, COPD, Hyperlipidemia, Hypertension, Myocardial Infarction ([place]) Additional Past Medical History / Comment(s): Pt states he has hx of 3 respiratory arrests and was vented, generalized arthritis, Last Myocardial Infarction Date:: History of Any Multi-Drug Resistant Organisms: None Reported Past Surgical History: Adenoidectomy, Heart Catheterization With Stent, Hernia Repair, Joint Replacement, Orthopedic Surgery, Tonsillectomy Additional Past Surgical History / Comment(s): R inguinal hernia repair, L rotator cuff repair, bialteral total knee arthroplasties, R shoulder spur removal, teeth extracted, colonoscopy-normal. third hernia repair, left side, stents x2 2020, stents x1 11/2021 Past Anesthesia/Blood Transfusion Reactions: No Reported Reaction Date of Last Stent Placement:: 2021 Past Psychological History: No Psychological Hx Reported Smoking Status: Former smoker Past Alcohol Use History: None Reported Past Drug Use History: None Reported - Past Family History Father Family Medical History: Cancer Additional Family Medical History / Comment(s): Father of lung cancer at the age of 62. He was a smoker. Mother Family Medical History: Cancer, Diabetes Mellitus, Hypertension Additional Family Medical History / Comment(s): Mother at age 78 from brainstem cancer. Brother(s) Additional Family Medical History / Comment(s): Patient's 1 brother with history of AAA. Patient has 4 sisters and he does not know any of their medical history. Patient's 1 son and 1 daughter living. He had one daughter that at 7 weeks old from a congenital heart. General Exam - General Exam Comments Initial Comments: General: Appears in no acute distress. HEAD: Normal with no signs of head trauma. EYES: PERRLA, EOMI, conjunctiva normal, no discharge. ENT: Hearing grossly intact, normal oropharynx. RESPIRATORY: Mild bilateral end expiratory wheezing. No hypoxia. No increased work of breathing. C/V: Regular rate and rhythm. S1 and S2 auscultated, no edema, peripheral pulses 2+ and intact throughout ABD: Abd is soft, nontender, nondistended EXT: Normal range of motion, no obvious deformity SKIN: No rashes or lesions observed on exposed skin. NEURO: Alert and oriented 4. Limitations: no limitations Course Vital Signs 07/28/22 07/28/22 07/28/22 08:21 08:35 08:50 Temperature 97.4 F L Pulse Rate 73 64 65 Respiratory 20 21 19 Rate Blood Pressure 155/105 134/100 112/77 O2 Sat by Pulse 97 97 97 Oximetry 07/28/22 07/28/22 07/28/22 09:01 09:05 09:07 Temperature Pulse Rate 63 69 64 Respiratory 20 Rate Blood Pressure 120/77 O2 Sat by Pulse 98 Oximetry 07/28/22 07/28/22 09:20 09:35 Temperature Pulse Rate 67 79 Respiratory 18 24 Rate Blood Pressure 105/63 108/65 O2 Sat by Pulse 97 97 Oximetry Medical Decision Making - Medical Decision Making Was pt. sent in by a medical professional or institution (, PA, REFINERY OPERATOR [employer], urgent care, hospital, or [facility]...) When possible be specific @ -No Did you speak to anyone other than the patient for history (EMS, parent, family, police, friend...)? What history was obtained from this source @ -No Did you review nursing and triage notes (agree or disagree)? Why? @ -I reviewed and agree with nursing and triage notes Were old charts reviewed (outside hosp., previous admission, EMS record, old EKG, old radiological studies, urgent care reports/EKG's, [facility] records)? Report findings @ -Old charts reviewed from June 2022 Differential Diagnosis (chest pain, altered mental status, abdominal pain women, abdominal pain men, vaginal bleeding, weakness, fever, dyspnea, syncope, headache, dizziness, GI bleed, back pain, seizure, CVA, palpatations, mental health, musculoskeletal)? @ -Differential Chest Pain: Stable Angina, Unstable Angina, STEMI, NSTEMI Aortic Dissection, Pneumothorax, Musculoskeletal, Esophageal Spasm GERD, Cholecystitis, Pancreatitis, Zoster, this is not meant to be an all-inclusive list. EKG interpreted by me (3pts min.). @ -As above X-rays interpreted by me (1pt min.). @ -Chest x-ray shows no acute obvious cardio pulmonary process. CT interpreted by me (1pt min.). @ -None done U/S interpreted by me (1pt. min.). @ -None done What testing was considered but not performed or refused? (CT, X-rays, U/S, labs)? Why? @ -None What meds were considered but not given or refused? Why? @ -None Did you discuss the management of the patient with other professionals (professionals i.e. , PA, RE[employer] O[employer], lab, RT, psych nurse, social insurance analyst, dinkey dispatcher, teacher, health promotion officer, field nurse case manager)? Give summary @ -No Was smoking cessation discussed for >3mins.? @ -No Was critical care preformed (if so, how long)? @ -yes, 35 min Were there social determinants of health that impacted care today? How? (Homelessness, low income, unemployed, alcoholism, drug addiction, transportation, low edu. Level, literacy, decrease access to med. care, snf, rehab)? @ -No Was there de-escalation of care discussed even if they declined (Discuss DNR or withdrawal of care, Hospice)? DNR status @ -No What co-morbidities impacted this encounter? (DM, HTN, Smoking, COPD, CAD, Cancer, CVA, ARF, Chemo, Hep., AIDS, mental health diagnosis, sleep apnea, morbid obesity)? @ -COPD, CAD Was patient admitted / discharged? Hospital course, mention meds given and route, prescriptions, significant lab abnormalities, going to OR and other pertinent info. @ -Based on the patient's presentation and physical exam, I'm concerned for cardiopulmonary etiology for his current symptoms. Vital signs within acceptable limits. Patient will receive 324 millions of aspirin as well as additional nitroglycerin tablets. We will obtain cardiac labs as well as EKG and chest x-ray. He was in agreement with this plan. Most recent stenting was done in November 2021. This was done of the LAD. Prior stenting of the RCA. Most recent cardiac cath was 06/26/2022 that showed an intermediate lesion involving the mid circumflex. Dr. De Luna also performed a cardiac cath on 06/24/2022 which showed similar findings. EKG showed no signs of acute ischemia.Patient states his chest pressure dec reased from an 8/10 to approximately a 1 or 2 out of 10 when given the nitro tablet. We will start him on Nitropaste. He currently is feeling much improved. Patient's labs are remarkable for a leukocytosis of 14 likely secondary to steroid use. Troponin is undetectable. Remainder of the labs are within except limits. Chest x-ray shows no obvious process. EKG shows no acute ischemic process. On reevaluation, I did the patient. We discussed his workup. I do believe it is safest to admit him to the hospital. Patient's heart score is moderate at 4. He was in agreement this plan. Over concern for ACS, patient will be started on a heparin drip. He was in agreement this plan as well. I spoke with the admitting team, Dr. smith who accepted the patient. Cardiology consulted. Undiagnosed new problem with uncertain prognosis? @ -No Drug Therapy requiring intensive monitoring for toxicity (Heparin, Nitro, Insulin, Cardizem)? @ -No Were any procedures done? @ -No Diagnosis/symptom? @ -Chest pain Acute, or Chronic, or Acute on Chronic? @ -Acute Uncomplicated (without systemic symptoms) or Complicated (systemic symptoms)? @ -Complicated Side effects of treatment? @ -none Exacerbation, Progression, or Severe Exacerbation] @ -no Poses a threat to life or bodily function? @ -Potentially yes. - Lab Data Result diagrams: 07/28/22 08:33 07/28/22 08:34 Lab Results 07/28/22 07/28/22 07/28/22 Range/Units 08:33 08:33 08:34 WBC 14.1 H (3.8-10.6) k/uL RBC 4.94 (4.30-5.90) m/uL Hgb 14.7 (13.0-17.5) gm/dL Hct 43.8 (39.0-53.0) % MCV 88.6 (80.0-100.0) fL MCH 29.8 (25.0-35.0) pg MCHC 33.7 (31.0-37.0) g/dL RDW 13.1 (11.5-15.5) % Plt Count 222 (150-450) k/uL MPV 8.1 Neutrophils % 53 % Lymphocytes % 40 % Monocytes % 5 % Eosinophils % 1 % Basophils % 1 % Neutrophils # 7.4 (1.3-7.7) k/uL Lymphocytes # 5.6 H (1.0-4.8) k/uL Monocytes # 0.6 (0-1.0) k/uL Eosinophils # 0.1 (0-0.7) k/uL Basophils # 0.1 (0-0.2) k/uL PT 9.6 (9.0-12.0) sec INR 0.9 (<1.2) APTT 22.1 (22.0-30.0) sec Sodium (137-145) mmol/L Potassium (3.5-5.1) mmol/L Chloride (98-107) mmol/L Carbon Dioxide (22-30) mmol/L Anion Gap mmol/L BUN (9-20) mg/dL Creatinine (0.66-1.25) mg/dL Est GFR (CKD-EPI)AfAm (>60 ml/min/1.73 sqM) Est GFR (CKD-EPI)NonAf (>60 ml/min/1.73 sqM) Glucose (74-99) mg/dL Calcium (8.4-10.2) mg/dL Magnesium (1.6-2.3) mg/dL Total Bilirubin (0.2-1.3) mg/dL AST (17-59) U/L ALT (4-49) U/L Alkaline Phosphatase (38-126) U/L Troponin I <0.012 (0.000-0.034) ng/mL Total Protein (6.3-8.2) g/dL Albumin (3.5-5.0) g/dL 07/28/22 Range/Units 08:34 WBC (3.8-10.6) k/uL RBC (4.30-5.90) m/uL Hgb (13.0-17.5) gm/dL Hct (39.0-53.0) % MCV (80.0-100.0) fL MCH (25.0-35.0) pg MCHC (31.0-37.0) g/dL RDW (11.5-15.5) % Plt Count (150-450) k/uL MPV Neutrophils % % Lymphocytes % % Monocytes % % Eosinophils % % Basophils % % Neutrophils # (1.3-7.7) k/uL Lymphocytes # (1.0-4.8) k/uL Monocytes # (0-1.0) k/uL Eosinophils # (0-0.7) k/uL Basophils # (0-0.2) k/uL PT (9.0-12.0) sec INR (<1.2) APTT (22.0-30.0) sec Sodium 137 (137-145) mmol/L Potassium 4.1 (3.5-5.1) mmol/L Chloride 105 (98-107) mmol/L Carbon Dioxide 22 (22-30) mmol/L Anion Gap 10 mmol/L BUN 18 (9-20) mg/dL Creatinine 0.76 (0.66-1.25) mg/dL Est GFR (CKD-EPI)AfAm >90 (>60 ml/min/1.73 sqM) Est GFR (CKD-EPI)NonAf >90 (>60 ml/min/1.73 sqM) Glucose 106 H (74-99) mg/dL Calcium 8.9 (8.4-10.2) mg/dL Magnesium 2.1 (1.6-2.3) mg/dL Total Bilirubin 0.6 (0.2-1.3) mg/dL AST 25 (17-59) U/L ALT 33 (4-49) U/L Alkaline Phosphatase 107 (38-126) U/L Troponin I (0.000-0.034) ng/mL Total Protein 6.8 (6.3-8.2) g/dL Albumin 4.2 (3.5-5.0) g/dL - EKG Data -: EKG Interpreted by Me EKG Comments: 12-lead Electrocardiogram Interpretation Note EKG was reviewed and interpreted by myself. 12-lead ECG performed at 0827 is interpreted by me as revealing normal sinus rhythm with PVCs at a rate of 89 beats per minute. Borderline left axis deviation. OR interval is 165 ms, QRS duration is 86 ms, QTc is 390 ms.. There were no acute ST or T wave abnorm alities to suggest myocardial ischemia or injury. R wave progression across the precordium was satisfactory. By my interpretation this EKG is non-diagnostic for acute ischemia. When compared with EKG from 07/25/2022, only significant change is the PVCs are present. Critical Care Time Critical Care Time: Yes Total Critical Care Time: 35 Disposition Clinical Impression: Chest pain Disposition: ADMITTED IP TO THIS HOSP Condition: Stable Referrals: Ava Erwin [facility] [REFERRING] - 1-2 days Time of Disposition: 09:35
[2022-07-28 09:13] LABS: INR 0.9 (<1.2); Partial Thromboplastin Time 22.1 sec (22.0-30.0); Prothrombin Time 9.6 sec (9.0-12.0)
--- NOTE | 2022-07-28 09:19 | XR ---
EXAMINATION TYPE: XR chest 2V DATE OF EXAM: 07/28/2022 COMPARISON: 07/25/2022 TECHNIQUE: PA and lateral views submitted. HISTORY: Chest pain FINDINGS: The lungs are clear and there is no pneumothorax, pleural effusion, or focal pneumonia. Heart size normal and no overt failure. Osseous structures demonstrate hypertrophic and degenerative changes of the spine. Postsurgical change left shoulder and post arthropathy right shoulder. Hyperinflation sugg ests COPD. IMPRESSION: 1. No acute process.
[2022-07-28] MEDS ORDERED: HEPARIN SODIUM 1,000 UN/ML (10ML VL) IV PRN (09:39)
[2022-07-28] MEDS ORDERED: HEPARIN SODIUM 1,000 UN/ML (10ML VL) IV ONE (09:39)
[2022-07-28] MEDS ORDERED: NALOXONE 0.4 MG/ML 1 ML VIAL IV PRN (09:44)
[2022-07-28] MEDS: HEPARIN SOD,PORK IN 0.45% NACL 25,000 UNIT in 0.45% NACL 1 250ML.BAG IV SCH (10:21)
[2022-07-28] MEDS ORDERED: ALBUTEROL HFA INHALER INHALATION PRN (11:08)
[2022-07-28] MEDS ORDERED: ALBUTEROL NEBULIZED 2.5 MG/3 ML INHALATION PRN (11:08)
[2022-07-28] MEDS: NITROGLYCERIN OINT 1 INCH/GM PACKET TOPICAL SCH ×3 (11:10→21:32)
[2022-07-28] MEDS ORDERED: MORPHINE SULFATE 4 MG/ML SYRINGE IVP STA (11:16)
--- NOTE | 2022-07-28 14:23 | P.HPIM ---
History of Present Illness This is a pleasant 61 years old male with past medical history of coronary artery disease status post stent placement of the LAD and RCA, hypertension, hyperlipidemia, COPD Patient presents because of chest pain started this morning. Patient states that his chest pain was in the middle radiating across his chest and to the back about 6-7/10 in severity now much better. The blood same he had a heart problem last time. His pain is partially with nitro. Patient denied smoking alcohol. Uses marijuana at times. He wants in the emergency room block about one week ago because he was feeling short of breath and was placed on prednisone 60 mg. Patient feels his breathing is better, he still have coughing with little phlegm. Patient denies abdominal pain vomiting diarrhea, no urinary symptoms, no headache weakness, numbness or dizziness. 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 leukocytosis of 14.1, rest of the cbc is unremarkable. inr is 0.9. bmp and liver enzymes and troponin were unremarkable. chest x-ray: no acute process. ekg: normal sinus rhythm with no significant st-t changes, with frequent pvcs. rate at 89 Patient is already started on heparin drip in the emergency room. Admitted with cardiology consult Review of Systems Review of systems CONSTITUTIONAL: No fever, no malaise, no fatigue. HEENT: No recent visual problems or hearing problems. Denied any sore throat. CARDIOVASCULAR: No orthopnea, PND, no palpitations, no syncope. PULMONARY: No shortness of breath, no cough, no hemoptysis. GASTROINTESTINAL: No diarrhea, no nausea, no vomiting, no abdominal pain. Normoactive bowel sounds. NEUROLOGICAL: No headaches, no weakness, no numbness. HEMATOLOGICAL: Denies any bleeding or petechiae. GENITOURINARY: Denies any burning micturition, frequency, or urgency. MUSCULOSKELETAL/RHEUMATOLOGICAL: Denies any joint pain, swelling, or any muscle pain. ENDOCRINE: Denies any polyuria or polydipsia. Past Medical History Past Medical History: Coronary Artery Disease (CAD), Chest Pain / Angina, COPD, Hyperlipidemia, Hypertension, Myocardial Infarction ([place]) Additional Past Medical History / Comment(s): Pt states he has hx of 3 respiratory arrests and was vented, generalized arthritis, Last Myocardial Infarction Date:: History of Any Multi-Drug Resistant Organisms: None Reported Past Surgical History: Adenoidectomy, Heart Catheterization With Stent, Hernia Repair, Joint Replacement, Orthopedic Surgery, Tonsillectomy Additional Past Surgical History / Comment(s): R inguinal hernia repair, L rotator cuff repair, bialteral total knee arthroplasties, R shoulder spur removal, teeth extracted, colonoscopy-normal. third hernia repair, left side, stents x2 2020, stents x1 11/2021 Past Anesthesia/Blood Transfusion Reactions: No Reported Reaction Date of Last Stent Placement:: 2021 Past Psychological History: No Psychological Hx Reported Smoking Status: Former smoker Past Alcohol Use History: None Reported Past Drug Use History: None Reported - Past Family History Father Family Medical History: Cancer Additional Family Medical History / Comment(s): Father of lung cancer at the age of 62. He was a smoker. Mother Family Medical History: Cancer, Diabetes Mellitus, Hypertension Additional Family Medical History / Comment(s): Mother at age 78 from brainstem cancer. Brother(s) Additional Family Medical History / Comment(s): Patient's 1 brother with history of AAA. Patient has 4 sisters and he does not know any of their medical history. Patient's 1 son and 1 daughter living. He had one daughter that at 7 weeks old from a congenital heart. Medications and Allergies Home Medications Medication Instructions Recorded Confirmed Type Clopidogrel [Plavix] 75 mg PO DAILY #30 tab 11/02/20 07/28/22 Rx Montelukast [Singulair] 10 mg PO HS 11/23/20 07/28/22 History Atorvastatin Calcium [Lipitor] 80 mg PO HS 03/25/21 07/28/22 History Budesonide [Pulmicort] 1 mg INHALATION RT-BID ml 03/31/21 07/28/22 Rx Ipratropium-Albuterol Nebulize 3 ml INHALATION RT-Q4H PRN ml 03/31/21 07/28/22 Rx [Duoneb 0.5 mg-3 mg/3 ml Soln] Albuterol Nebulized [Ventolin 2.5 mg INHALATION RT-Q4H PRN 08/20/21 07/28/22 History Nebulized] Albuterol Sulfate [Proair Hfa] 2 puff INHALATION RT-Q4H PRN 08/20/21 07/28/22 History Aspirin EC [Ecotrin Low Dose] 81 mg PO DAILY 12/13/21 07/28/22 History Famotidine [Pepcid] 20 mg PO BID 12/13/21 07/28/22 History Isosorbide Mononitrate ER [Imdur] 30 mg PO DAILY 30 Days #30 tab 06/28/22 07/28/22 Rx Nitroglycerin Sl Tabs [Nitrostat] 0.4 mg SL Q5M PRN 30 Days #25 tab 06/28/22 07/28/22 Rx Verapamil Sr [Isoptin Sr] 120 mg PO BID 30 Days #60 tab 06/28/22 07/28/22 Rx predniSONE 60 mg PO DAILY #30 tab 07/26/22 07/28/22 Rx Allergies Allergy/AdvReac Type Severity Reaction Status Date / Time levofloxacin [From Levuin] AdvReac Nausea & Verified 07/28/22 10:09 Vomiting Physical Exam Vitals: Vital Signs Temp Pulse Resp BP Pulse Ox 07/28/22 09:35 79 24 108/65 97 07/28/22 09:20 67 18 105/63 97 07/28/22 09:07 64 07/28/22 09:05 69 20 120/77 98 07/28/22 09:01 63 07/28/22 08:50 65 19 112/77 97 07/28/22 08:35 64 21 134/100 97 07/28/22 08:21 97.4 F L 73 20 155/105 97 Intake and Output 07/27/22 07/28/22 07/28/22 22:59 06:59 14:59 Other: Weight 92.533 kg GENERAL: The patient is alert and oriented x3, not in any acute distress. Well developed, well nourished. HEENT: Pupils are round and equally reacting to light. EOMI. No scleral icterus. No conjunctival pallor. Normocephalic, atraumatic. No pharyngeal erythema. No thyromegaly. CARDIOVASCULAR: S1 and S2 present. No murmurs, rubs, or gallops. PULMONARY: Chest is clear to auscultation, no wheezing or crackles. ABDOMEN: Soft, nontender, nondistended, normoactive bowel sounds. No palpable organomegaly. MUSCULOSKELETAL: No joint swelling or deformity. EXTREMITIES: No cyanosis, clubbing, or pedal edema. NEUROLOGICAL: Gross neurological examination did not reveal any focal deficits. SKIN: No rashes. no petechiae. Results CBC & Chem 7: 07/28/22 08:33 07/28/22 08:34 Labs: Abnormal Lab Results - Last 24 Hours (Table) 07/28/22 07/28/22 Range/Units 08:33 08:34 WBC 14.1 H (3.8-10.6) k/uL Lymphocytes # 5.6 H (1.0-4.8) k/uL Glucose 106 H (74-99) mg/dL Assessment and Plan Assessment: Chest pain, suspicious for cardiac causes Coronary artery disease with previous stenting of the RCA and most recently to the LAD in November 2021 Hypertension Hyperlipidemia COPD, with mild acute exacerbation Plan: Continue with heparin drip continue with home dose of aspirin 81 mg. Continue with Plavix. Cardiology consult resume prednisone at a lower dose 3 mg daily which may be tapered Labs and medication were reviewed.. Continue same treatment. Continue with symptomatic treatment. Resume home medication. Monitor labs and vitals. DVT and GI prophylaxis. Further recommendations as per clinical course of the patient DVT prophylaxis: heparin GI Prophylaxis: Pepcid PT/OT: Pending Prognosis is guarded
[2022-07-28] MEDS ORDERED: ACETAMINOPHEN TAB 325 MG TAB PO PRN (17:06)
[2022-07-28] MEDS: MORPHINE SULFATE 2 MG/ML SYRINGE IVP PRN (17:12)
[2022-07-28] MEDS: BUDESONIDE 1 MG/2 ML NEBU INHALATION SCH (18:39)
[2022-07-28] MEDS: IPRATROPIUM-ALBUTEROL 3 ML NEB INHALATION PRN (18:39)
[2022-07-28] MEDS ORDERED: MONTELUKAST 10 MG TAB PO SCH (21:00)
[2022-07-28] MEDS ORDERED: ATORVASTATIN 80 MG TAB PO SCH (21:00)
[2022-07-28] MEDS: FAMOTIDINE 20 MG TAB PO SCH (21:32)
[2022-07-28] MEDS: VERAPAMIL SR 120 MG TABLET.ER PO SCH (21:34)
[2022-07-29] MEDS: HEPARIN SOD,PORK IN 0.45% NACL 25,000 UNIT in 0.45% NACL 1 250ML.BAG IV SCH (05:39)
[2022-07-29 07:32] VITALS: RESP 18
[2022-07-29] MEDS: IPRATROPIUM-ALBUTEROL 3 ML NEB INHALATION PRN (07:35)
[2022-07-29] MEDS: BUDESONIDE 1 MG/2 ML NEBU INHALATION SCH (07:35)
[2022-07-29] MEDS: FAMOTIDINE 20 MG TAB PO SCH (08:18)
[2022-07-29] MEDS: VERAPAMIL SR 120 MG TABLET.ER PO SCH ×2 (08:18→08:19)
[2022-07-29] MEDS: NITROGLYCERIN OINT 1 INCH/GM PACKET TOPICAL SCH (08:19)
[2022-07-29] MEDS ORDERED: predniSONE 20 MG TAB PO SCH ×2 (09:00)
[2022-07-29] MEDS ORDERED: ASPIRIN 81 MG PO SCH (09:00)
[2022-07-29] MEDS ORDERED: CLOPIDOGREL 75 MG TAB PO SCH (09:00)
[2022-07-29] MEDS ORDERED: ISOSORBIDE MONONITRATE ER 30 MG TAB.ER.24H PO SCH (09:00)
--- NOTE | 2022-07-29 10:46 | P.CRDCN ---
History of Present Illness Consult date: 07/29/22 Consult reason: chest pain History of present illness: HISTORY OF PRESENT ILLNESS: This is a 61-year-old male patient of Dr. De Luna with a past medical history significant for coronary artery disease with previous stenting of the LAD and RCA, hypertension, hyperlipidemia, COPD, and former nicotine dependence. We have been asked to see the patient in consultation for chest pain. Patient has had several recent hospitalizations which did include cardiac catheterization on 06/24 and a repeat cardiac catheterization on 06/26 finding coronary spasm. Patient states that he has not had any episodes of chest pain since leaving the hospital until yesterday. He complains of chest pain that started while he was drinking his coffee. He did take a nitroglycerin with no relief and decided to come into the hospital. The pain was identical to that the brought him in the hospital when he was diagnosed with coronary spasm. He states the chest pain was across his chest and through to his back and across his scapulas. He does complain of chronic shortness of breath but no worsening in this is due to COPD. He denies having any palpitations. He states he feels a little lightheaded when he has the pain. At this time he has a little pressure but no sharp pain. Since patient's last hospitalization, he did have a follow-up appointment with Dr. De Luna in the office and plan was to continue current medical regime and medication changes were made to include discontinuing hydrochlorothiazide, Imdur dose was decreased to 30 mg, metoprolol succinate was discontinued and verapamil added. * EKG reveals sinus mechanism with no signs of acute ischemia, occasional PVCs * Chest xray negative for acute process. * Laboratory data: WBC 14.1, hemoglobin 14.7, platelet count 222. INR 0.9. Sodium 137, potassium 4.1, chloride 105, CO2 22, BUN 18 and creatinine 0.76. Troponin is negative 3. Liver function tests within normal limits. Magnesium 2.1. * Current home cardiac medications include aspirin 81 mg daily, atorvastatin 80 mg at night, Plavix 75 mg daily, Imdur 30 mg daily, nitroglycerin sublingual, verapamil 120 mg twice daily * Most recent echocardiogram obtained 06/23/2022 revealed EF of 50-55%. Borderline LVH. Trace to mild mitral regurgitation. Trace to mild tricuspid regurgitation. No pericardial effusion. * Cardiac catheterization history: 06/24/[address] De Luna revealed patent stent in the right coronary artery. Patent stent in the left anterior descending artery. Intermediate lesion involving the proximal LCx. iFR was performed and came in to be nonischemic. * Cardiac catheterization 06/26: Patent stents in the RCA and LAD. Intermediate lesion involving the mid circumflex unchanged. Overall coronary vasospasm inv olving the coronary tree. REVIEW OF SYSTEMS: At the time of my exam: CONSTITUTIONAL: Denies fever or chills. HEENT: Denies blurred vision, vision changes, or eye pain. Denies hemoptysis CARDIOVASCULAR: Reports mild chest pain. Denies orthopnea. Denies PND. Denies palpitations RESPIRATORY: Denies shortness of breath. GASTROINTESTINAL: Denies abdominal pain. Denies nausea or vomiting. HEMATOLOGIC: Denies bleeding disorders. GENITOURINARY: Denies any blood in urine. SKIN: Denies pruitis. Denies rash. PHYSICAL EXAM: VITAL SIGNS: Reviewed. GENERAL: Well-developed in no acute distress. HEENT: Head is normocephalic. Pupils are equal, round. Sclerae anicteric. Mucous membranes of the mouth are moist. Neck supple. No JVD LUNGS: Respirations even and unlabored. Lungs essentially clear to auscultation bilaterally. HEART: Regular rate and rhythm. S1 and S2 heard. ABDOMEN: Soft. Nondistended. Nontender. EXTREMITIES: Normal range of motion. No clubbing or cyanosis. Peripheral pulses intact. No lower extremity edema NEUROLOGIC: Awake and alert. Oriented x 3. ASSESSMENT: Chest pain, noncardiac, acute coronary syndrome ruled out Coronary artery disease with previous stenting of the RCA and most recently to the LAD in November 2021 Hypertension Hyperlipidemia COPD Former nicotine dependence PLAN: Resume patient's home cardiac medications No need to repeat echocardiogram Discontinue heparin drip Patient is cleared for discharge from cardiology. Patient may follow up with Dr. De Luna in the office. Further recommendations pending patient's course Nurse practitioner note has been reviewed by physician. Signing provider agrees with the documented findings, assessment, and plan of care. Past Medical History Past Medical History: Coronary Artery Disease (CAD), Chest Pain / Angina, COPD, Hyperlipidemia, Hypertension, Myocardial Infarction (SD) Additional Past Medical History / Comment(s): Pt states he has hx of 3 respiratory arrests and was vented, generalized arthritis, Last Myocardial Infarction Date:: History of Any Multi-Drug Resistant Organisms: None Reported Past Surgical History: Adenoidectomy, Heart Catheterization With Stent, Hernia Repair, Joint Replacement, Orthopedic Surgery, Tonsillectomy Additional Past Surgical History / Comment(s): R inguinal hernia repair, L rotator cuff repair, bialteral total knee arthroplasties, R shoulder spur removal, teeth extracted, colonoscopy-normal. third hernia repair, left side, stents x2 2020, stents x1 11/2021 Past Anesthesia/Blood Transfusion Reactions: No Reported Reaction Date of Last Stent Placement:: 2021 Past Psychological History: No Psychological Hx Reported Smoking Status: Former smoker Past Alcohol Use History: None Reported Past Drug Use History: None Reported - Past Family History Father Family Medical History: Cancer Additional Family Medical History / Comment(s): Father of lung cancer at the age of 62. He was a smoker. Mother Family Medical History: Cancer, Diabetes Mellitus, Hypertension Additional Family Medical History / Comment(s): Mother at age 78 from brainstem cancer. Brother(s) Additional Family Medical History / Comment(s): Patient's 1 brother with history of AAA. Patient has 4 sisters and he does not know any of their medical history. Patient's 1 son and 1 daughter living. He had one daughter that at 7 weeks old from a congenital heart. Medications and Allergies Home Medications Medication Instructions Recorded Confirmed Type Clopidogrel [Plavix] 75 mg PO DAILY #30 tab 11/02/20 07/28/22 Rx Montelukast [Singulair] 10 mg PO HS 11/23/20 07/28/22 History Atorvastatin Calcium [Lipitor] 80 mg PO HS 03/25/21 07/28/22 History Budesonide [Pulmicort] 1 mg INHALATION RT-BID ml 03/31/21 07/28/22 Rx Ipratropium-Albuterol Nebulize 3 ml INHALATION RT-Q4H PRN ml 03/31/21 07/28/22 Rx [Duoneb 0.5 mg-3 mg/3 ml Soln] Albuterol Nebulized [Ventolin 2.5 mg INHALATION RT-Q4H PRN 08/20/21 07/28/22 History Nebulized] Albuterol Sulfate [Proair Hfa] 2 puff INHALATION RT-Q4H PRN 08/20/21 07/28/22 History Aspirin EC [Ecotrin Low Dose] 81 mg PO DAILY 12/13/21 07/28/22 History Famotidine [Pepcid] 20 mg PO BID 12/13/21 07/28/22 History Isosorbide Mononitrate ER [Imdur] 30 mg PO DAILY 30 Days #30 tab 06/28/22 07/28/22 Rx Nitroglycerin Sl Tabs [Nitrostat] 0.4 mg SL Q5M PRN 30 Days #25 tab 06/28/22 07/28/22 Rx Verapamil Sr [Isoptin Sr] 120 mg PO BID 30 Days #60 tab 06/28/22 07/28/22 Rx predniSONE 60 mg PO DAILY #30 tab 07/26/22 07/28/22 Rx Allergies Allergy/AdvReac Type Severity Reaction Status Date / Time levofloxacin [From [facility]] AdvReac Nausea & Verified 07/28/22 10:09 Vomiting Physical Exam Vitals: Vital Signs Temp Pulse Pulse Resp BP BP Pulse Ox 07/29/22 02:00 98 F 71 15 128/80 98 07/28/22 20:00 97.7 F 64 14 135/73 100 07/28/22 18:49 75 16 07/28/22 18:39 75 16 95 07/28/22 17:57 97.8 F 75 16 171/72 96 07/28/22 16:00 73 19 114/66 97 07/28/22 14:46 80 18 121/72 97 07/28/22 14:00 78 20 125/71 98 07/28/22 12:00 76 16 120/83 97 07/28/22 10:00 66 17 115/73 96 07/28/22 09:35 79 24 108/65 97 07/28/22 09:20 67 18 105/63 97 07/28/22 09:07 64 07/28/22 09:05 69 20 120/77 98 07/28/22 09:01 63 07/28/22 08:50 65 19 112/77 97 07/28/22 08:35 64 21 134/100 97 07/28/22 08:21 97.4 F L 73 20 155/105 97 Intake and Output 07/28/22 07/29/22 07/29/22 22:59 06:59 14:59 Intake Total 69.667 146.162 Balance 69.7 146.162 Intake: Intake, IV Titration .7 146.162 Amount Heparin Sod,Pork in 0.45% 69.7 146.162 NaCl 25,000 unit In 0.45 % NaCl 1 250ml.bag @ 10. 807 UNITS/KG/HR 10 mls/hr IV .Q24H [facility] Rx#: [id number] Other: # Voids 2 0 Results 07/28/22 08:33 07/28/22 08:34 Cardiac Enzymes 07/28/22 07/28/22 07/28/22 Range/Units 08:33 08:34 11:53 AST 25 (17-59) U/L Troponin I <0.012 0.032 (0.000-0.034) ng/mL 07/28/22 Range/Units 15:27 AST (17-59) U/L Troponin I 0.019 (0.000-0.034) ng/mL Coagulation 07/28/22 07/28/22 07/29/22 Range/Units 08:34 15:27 01:20 PT 9.6 (9.0-12.0) sec APTT 22.1 42.2 H 64.7 H (22.0-30.0) sec CBC 07/28/22 Range/Units 08:33 WBC 14.1 H (3.8-10.6) k/uL RBC 4.94 (4.30-5.90) m/uL Hgb 14.7 (13.0-17.5) gm/dL Hct 43.8 (39.0-53.0) % Plt Count 222 (150-450) k/uL Comprehensive Metabolic Panel 07/28/22 Range/Units 08:34 Sodium 137 (137-145) mmol/L Potassium 4.1 (3.5-5.1) mmol/L Chloride 105 (98-107) mmol/L Carbon Dioxide 22 (22-30) mmol/L BUN 18 (9-20) mg/dL Creatinine 0.76 (0.66-1.25) mg/dL Glucose 106 H (74-99) mg/dL Calcium 8.9 (8.4-10.2) mg/dL AST 25 (17-59) U/L ALT 33 (4-49) U/L Alkaline Phosphatase 107 (38-126) U/L Total Protein 6.8 (6.3-8.2) g/dL Albumin 4.2 (3.5-5.0) g/dL Current Medications Generic Name Dose Route Start Last Admin Trade Name Freq PRN Reason Stop Dose Admin Acetaminophen 650 mg 07/28/22 17:06 07/28/22 21:36 Acetaminophen Tab 325 Mg Tab PO 650 mg Q6HR PRN Administration Fever and/ or Pain Albuterol Sulfate 2.5 mg 07/28/22 11:08 Albuterol Nebulized 2.5 Mg/3 Ml INHALATION RT-Q4H PRN Shortness Of Breath Albuterol/Ipratropium 3 ml 07/28/22 11:08 07/28/22 18:39 Ipratropium-Albuterol 3 Ml Neb INHALATION 3 ml RT-Q4H PRN Administration Shortness Of Breath Or Wheezing Aspirin 81 mg 07/29/22 09:00 Aspirin 81 Mg PO DAILY [facility] Atorvastatin Calcium 80 mg 07/28/22 21:00 07/28/22 21:32 Atorvastatin 80 Mg Tab PO 80 mg HS [facility] Administration Budesonide 1 mg 07/28/22 20:00 07/28/22 18:39 Budesonide 1 Mg/2 Ml Nebu INHALATION 1 mg RT-BID [facility] Administration Clopidogrel Bisulfate 75 mg 07/29/22 09:00 Clopidogrel 75 Mg Tab PO DAILY [facility] Famotidine 20 mg 07/28/22 21:00 07/28/22 21:32 Famotidine 20 Mg Tab PO 20 mg BID [facility] Administration Heparin Sodium (Porcine) 0 unit 07/28/22 09:39 07/28/22 17:18 Heparin Sodium 1,000 Un/Ml (10ml Vl) IV 2,313 unit PER PROTOCOL PRN Administration Low PTT Protocol Heparin Sodium/Sodium Chloride 250 mls @ 10 mls/hr 07/28/22 09:45 07/29/22 05:39 25,000 unit/ Sodium Chloride IV 12.81 units/kg/hr .Q24H [facility] 11.851 mls/hr Administration Protocol 10.807 UNITS/KG/HR Isosorbide Mononitrate 30 mg 07/29/22 09:00 Isosorbide Mononitrate Er 30 Mg Tab.Er.24h PO DAILY [facility] Montelukast Sodium 10 mg 07/28/22 21:00 07/28/22 21:32 Montelukast 10 Mg Tab PO 10 mg HS [facility] Administration Morphine Sulfate 2 mg 07/28/22 17:06 07/28/22 17:12 Morphine Sulfate 2 Mg/Ml Syringe IVP 2 mg Q6HR PRN Administration Pain/Discomfort Naloxone HCl 0.2 mg 07/28/22 09:44 Naloxone 0.4 Mg/Ml 1 Ml Vial IV Q2M PRN Opioid Reversal Nitroglycerin 0.5 inch 07/28/22 09:45 07/28/22 21:32 Nitroglycerin Oint 1 Inch/Gm Packet TOPICAL 0.5 inch Q8HR [facility] Administration Prednisone 40 mg 07/29/22 09:00 Prednisone 20 Mg Tab PO DAILY [facility] Verapamil HCl 120 mg 07/28/22 21:00 07/28/22 21:34 Verapamil Sr 120 Mg Tablet.Er PO Not Given BID [facility] Intake and Output 07/28/22 07/29/22 07/29/22 22:59 06:59 14:59 Intake Total 69.667 146.162 Balance 69.667 146.162 Intake: Intake, IV Titration 69.667 146.162 Amount Heparin Sod,Pork in 0.45% 69.667 146.162 NaCl 25,000 unit In 0.45 % NaCl 1 250ml.bag @ 10. 807 UNITS/KG/HR 10 mls/hr IV .Q24H [facility] Rx#: [id number] Other: # Voids 2 0 07/28/22 08:33 07/28/22 08:34
[2022-07-29 10:55] LABS: Basophils # (A) 0.08 X 10*3/uL (0.00-0.10); Basophils % (A) 0.6 %; Eosinophils # (A) 0.03 X 10*3/uL (0.04-0.35); Eosinophils % (A) 0.2 %; HCT 40.3 % (39.6-50.0); HGB 13.1 g/dL (13.0-17.0); Immature Grans, Automated 0.9 %; Lymphocytes % (A) 30.4 %; MCH 29.4 pg (27.0-32.0); MCHC 32.5 g/dL (32.0-37.0); MCV 90.4 fL (80.0-97.0); Mean Platelet Volume 11.5 fL (9.5-12.2); Monocytes # (A) 0.84 X 10*3/uL (0.20-1.00); Monocytes % (A) 5.9 %; NRBC Per 100 WBC 0 /100 WBCS (0.0-0.0); Neutrophils # (A) 8.77 X 10*3/uL (1.80-7.70); Platelet Count 212 X 10*3/uL (140-440); RBC 4.46 X 10*6/uL (4.40-5.60); RDW 13.2 % (11.5-14.5); WBC 14.15 X 10*3/uL (4.50-10.00)
[2022-07-29 11:27] LABS: African American GFR (CKD) 108.3 (60.0-200.0); BUN/Creat Ratio 23.01 Ratio (12.00-20.00); Blood Urea Nitrogen 20.2 mg/dL (9.0-27.0); Calcium 8.7 mg/dL (8.7-10.3); Carbon Dioxide 24.1 mmol/L (20.0-27.5); Non-African American GFR(CKD) 93.5 (60.0-200.0)
[2022-07-29] MEDS: MORPHINE SULFATE 2 MG/ML SYRINGE IVP PRN (12:15)
[2022-07-29 12:51] LABS: INR 0.93 (0.90-1.11); Prothrombin Time 10.5 sec (9.9-11.9)
[2022-07-29 14:12] VITALS: BP 140/75; PULSE 86; TEMP 98
[2022-07-29] MEDS ORDERED: PANTOPRAZOLE 40 MG/10 ML VIAL IVP ONE (15:28)
--- NOTE | 2022-07-29 15:29 | P.PN ---
Subjective This is a pleasant 61 years old male with past medical history of coronary artery disease status post stent placement of the LAD and RCA, hypertension, hyperlipidemia, COPD Patient presents because of chest pain started this morning. Patient states that his chest pain was in the middle radiating across his chest and to the back about 6-7/10 in severity now much better. The blood same he had a heart problem last time. His pain is partially with nitro. Patient denied smoking alcohol. Uses marijuana at times. He wants in the emergency room block about one week ago because he was feeling short of breath and was placed on prednisone 60 mg. Patient feels his breathing is better, he still have coughing with little phlegm. Patient denies abdominal pain vomiting diarrhea, no urinary symptoms, no headache weakness, numbness or dizziness. 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 Hudson Vitals are stable. leukocytosis of 14.1, rest of the cbc is unremarkable. inr is 0.9. bmp and liver enzymes and troponin were unremarkable. chest x-ray: no acute process. ekg: normal sinus rhythm with no significant st-t changes, with frequent pvcs. rate at 89 Patient is already started on heparin drip in the emergency room. Admitted with cardiology consult 07/29/2022 patient still having chest pain after exertion of the soil conservation technician cleared him in the morning of the cardiology and ask him to move around to see if he developed chest pain. He denies any other new symptoms. He still slightly short of breath with prolonged expiration. No significant wheezing and he is not hypoxic Patient vitals are stable WBCs still 14,000 Heparin drip was stopped by soil conservation technician He remains on prednisone and lower the dose to 40 mg given his prolonged expiration with no wheezing and normal saturation of oxygen at 97% on room air. However because of ongoing chest pain I talked to the patient and they going to order d-dimer and if this elevated we don't order CTA of the chest. Risk of contrast is explained for the patient in detail including risk of ALLERGIC reaction, nephrotoxicity and possibility of permanent kidney damage and dialysis and he verbalized understanding and acceptance to proceed with the test. Objective - Vital Signs Vital signs: Vital Signs Temp 98.2 F 07/29/22 07:00 Pulse 74 07/29/22 08:00 Resp 18 07/29/22 08:00 BP 130/78 07/29/22 07:00 Pulse Ox 98 07/29/22 07:35 FiO2 Intake & Output 07/28/22 07/29/22 07/29/22 18:59 06:59 18:59 Intake Total 69.667 146.162 Balance 69.667 146.162 Weight 92.533 kg Intake: Intake, IV Titration 69.667 146.162 Amount Heparin Sod,Pork in 0.45% 69.667 146.162 NaCl 25,000 unit In 0.45 % NaCl 1 250ml.bag @ 10. 807 UNITS/KG/HR 10 mls/hr IV .Q24H [facility] Rx#: [id number] Other: # Voids 0 - Exam GENERAL: The patient is alert and oriented x3, not in any acute distress. Well developed, well nourished. HEENT: Pupils are round and equally reacting to light. EOMI. No scleral icterus. No conjunctival pallor. Normocephalic, atraumatic. No pharyngeal erythema. No thyromegaly. CARDIOVASCULAR: S1 and S2 present. No murmurs, rubs, or gallops. PULMONARY: Chest is clear to auscultation, no wheezing or crackles. ABDOMEN: Soft, nontender, nondistended, normoactive bowel sounds. No palpable organomegaly. MUSCULOSKELETAL: No joint swelling or deformity. EXTREMITIES: No cyanosis, clubbing, or pedal edema. NEUROLOGICAL: Gross neurological examination did not reveal any focal deficits. SKIN: No rashes. no petechiae. - Labs CBC & Chem 7: 07/29/22 05:27 07/29/22 05:27 Labs: Abnormal Lab Results - Last 24 Hours (Table) 07/28/22 07/29/22 07/29/22 Range/Units 15:27 01:20 05:27 WBC (4.50-10.00) X 10*3/uL Immature Gran # (0.00-0.04) X 10*3/uL Neutrophils # (1.80-7.70) X 10*3/uL Eosinophils # (0.04-0.35) X 10*3/uL APTT 42.2 H 64.7 H (22.0-30.0) sec BUN/Creatinine Ratio 23.01 H (12.00-20.00) Ratio 07/29/22 Range/Units 05:27 WBC 14.15 H (4.50-10.00) X 10*3/uL Immature Gran # 0.13 H (0.00-0.04) X 10*3/uL Neutrophils # 8.77 H (1.80-7.70) X 10*3/uL Eosinophils # 0.03 L (0.04-0.35) X 10*3/uL APTT (22.0-30.0) sec BUN/Creatinine Ratio (12.00-20.00) Ratio Assessment and Plan Assessment: Chest pain, suspicious for cardiac causes Coronary artery disease with previous stenting of the RCA and most recently to the LAD in November 2021 Hypertension Hyperlipidemia COPD, with mild acute exacerbation Plan: Heparin drip discontinued by soil conservation technician continue with home dose of aspirin 81 mg. Continue with Plavix. Cardiology consult resume prednisone at 40 mg. We'll add Protonix time 1 We will check d-dimer, is elevated we will check CTA of the chest to rule out PE. Risk of nephrotoxicity are explained for the patient. We'll start gentle hydration Labs and medication were reviewed.. Continue same treatment. Continue with symptomatic treatment. Resume home medication. Monitor labs and vitals. DVT and GI prophylaxis. Further recommendations as per clinical course of the patient DVT prophylaxis: heparin GI Prophylaxis: Pepcid Prognosis is guarded
[2022-07-29] MEDS ORDERED: SODIUM CHLORIDE 0.9% 1,000 ML IV SCH (15:30)
[2022-07-29] MEDS ORDERED: HEPARIN SODIUM,PORCINE/PF 5,000 UNIT/0.5 ML SYRINGE SQ SCH (21:00)
[2022-07-30] MEDS ORDERED: ISOSORBIDE MONONITRATE ER 60 MG TAB.ER.24H PO SCH (09:00)
== END 2022-07-29 18:25 | disposition home or self-care (01) ==
LOC: EC 08:17 → 6NMEDSUR 11:18
PROVIDERS: ADMIT Internal Medicine; ATTEND Internal Medicine
DX: R07.9 Chest pain, unspecified (principal); I25.10 Atherosclerotic heart disease of native coronary artery without angina pectoris; J44.1 Chronic obstructive pulmonary disease with (acute) exacerbation; I10 Essential (primary) hypertension; E78.5 Hyperlipidemia, unspecified; I25.2 Old myocardial infarction; Z87.891 Personal history of nicotine dependence; Z95.5 Presence of coronary angioplasty implant and graft; Z79.02 Long term (current) use of antithrombotics/antiplatelets; Z79.52 Long term (current) use of systemic steroids; Z79.82 Long term (current) use of aspirin; Z79.899 Other long term (current) drug therapy; Z88.1 Allergy status to other antibiotic agents
CPT/HCPCS: 96365; 96366; 96375 ×2; 96376 ×2; 96361; 99291; 36415; 94640 ×3; 94760 ×2; 93005; 85379; 80053; 80048; 83735; 84484; 85025 ×2; 85610 ×2; 85730 ×2; 71046; G0378 ×2; J2270 ×3; J1644 ×3; J7512; C9113

== ENCOUNTER 2022-08-10 22:11 | Observation (INO) | payer MEDICARE, OTHER ==
[2022-08-10 22:54] LABS: Basophils # (A) 0.1 k/uL (0-0.2); Basophils % (A) 1 %; Eosinophils # (A) 0.2 k/uL (0-0.7); Eosinophils % (A) 2 %; HCT 41.4 % (39.0-53.0); HGB 14.2 gm/dL (13.0-17.5); Lymphocytes # (A) 2.6 k/uL (1.0-4.8); Lymphocytes % (A) 26 %; MCH 31.1 pg (25.0-35.0); MCHC 34.4 g/dL (31.0-37.0); MCV 90.4 fL (80.0-100.0); Mean Platelet Volume 8.3; Monocytes # (A) 0.6 k/uL (0-1.0); Monocytes % (A) 6 %; Neutrophils # (A) 6.5 k/uL (1.3-7.7); Neutrophils % (A) 65 %; Platelet Count 195 k/uL (150-450); RBC 4.57 m/uL (4.30-5.90); RDW 12.9 % (11.5-15.5)
--- NOTE | 2022-08-10 23:04 | XR ---
EXAMINATION TYPE: XR chest 2V DATE OF EXAM: 08/10/2022 COMPARISON: Chest x-ray July 28, 2022 HISTORY: Chest pain. TECHNIQUE: Frontal and lateral views of the chest are obtained. FINDINGS: There is no focal air space opacity, pleural effusion, or pneumothorax seen. The cardiac silhouette size is stable and within normal limits. The osseous structures are intact. IMPRESSION: No acute process. No significant change from prior.
[2022-08-10 23:19] LABS: INR 0.9 (<1.2); Partial Thromboplastin Time 22.2 sec (22.0-30.0); Prothrombin Time 9.5 sec (9.0-12.0)
[2022-08-10 23:21] LABS: ALT 26 U/L (4-49); AST 23 U/L (17-59); African American GFR (CKD) >90 (>60 ml/min/1.73 sqM); Albumin 3.8 g/dL (3.5-5.0); Alkaline Phosphatase 117 U/L (38-126); Anion Gap 11 mmol/L; Blood Urea Nitrogen 20 mg/dL (9-20); Calcium 9.4 mg/dL (8.4-10.2); Carbon Dioxide 24 mmol/L (22-30); Chloride 101 mmol/L (98-107); Glucose 120 mg/dL (74-99); Magnesium 2.1 mg/dL (1.6-2.3); Non-African American GFR(CKD) >90 (>60 ml/min/1.73 sqM); Potassium 3.9 mmol/L (3.5-5.1); Sodium 136 mmol/L (137-145); Total Bilirubin 0.5 mg/dL (0.2-1.3); Total Protein 6.4 g/dL (6.3-8.2)
[2022-08-11] MEDS ORDERED: FAMOTIDINE 20 MG/2 ML VIAL IV STA (00:30)
[2022-08-11] MEDS ORDERED: MAG HYDROX/AL HYDROX/SIMETH 30 ML, HYOSCYAMINE ELIXIR 10 ML, LIDOCAINE 2% GLYDO JELLY 1... PO STA ×3 (00:31)
--- NOTE | 2022-08-11 00:45 | ED ---
General Adult HPI - General Chief complaint: Chest Pain Stated complaint: CHEST PAIN Time Seen by Provider: 08/11/22 00:11 Source: patient Mode of arrival: ambulatory Limitations: no limitations - History of Present Illness Initial comments: This is a 61-year-old male with a past medical history including previous cardiac stents and hypertension presented to the emergency department for central chest burning without radiation. The patient stated this occurred approximate 6 hours prior to arrival and feels like his previous acid reflux. The patient stated that he tried to take Tums as well as Pepcid at home without any relief so he came to the emergency department. The patient stated that he ate normal meals without any new worsening foods for his acid reflux. The patient continued to remain stable without any further acute pain or complaints. The patient denied nausea, vomiting as well as any diaphoresis. The patient also denied any fevers, chills. - Related Data Home Medications Medication Instructions Recorded Confirmed Montelukast [Singulair] 10 mg PO HS 11/23/20 07/28/22 Atorvastatin Calcium [Lipitor] 80 mg PO HS 03/25/21 07/28/22 Albuterol Nebulized [Ventolin 2.5 mg INHALATION RT-Q4H PRN 08/20/21 07/28/22 Nebulized] Albuterol Sulfate [Proair Hfa] 2 puff INHALATION RT-Q4H PRN 08/20/21 07/28/22 Aspirin EC [Ecotrin Low Dose] 81 mg PO DAILY 12/13/21 07/28/22 Famotidine [Pepcid] 20 mg PO BID 12/13/21 07/28/22 Previous Rx's Medication Instructions Recorded Clopidogrel [Plavix] 75 mg PO DAILY #30 tab 11/02/20 Budesonide [Pulmicort] 1 mg INHALATION RT-BID ml 03/31/21 Ipratropium-Albuterol Nebulize 3 ml INHALATION RT-Q4H PRN ml 03/31/21 [Duoneb 0.5 mg-3 mg/3 ml Soln] Isosorbide Mononitrate ER [Imdur] 30 mg PO DAILY 30 Days #30 tab 06/28/22 Nitroglycerin Sl Tabs [Nitrostat] 0.4 mg SL Q5M PRN 30 Days #25 tab 06/28/22 Verapamil Sr [Isoptin Sr] 120 mg PO BID 30 Days #60 tab 06/28/22 Acetaminophen Tab [Tylenol] 650 mg PO Q6HR PRN tab 07/29/22 predniSONE 10 mg PO DIRECTED #30 tab 07/29/22 Allergies Allergy/AdvReac Type Severity Reaction Status Date / Time levofloxacin [From Levaquin] AdvReac Nausea & Verified 08/10/22 22:18 Vomiting Review of Systems ROS Statement: Those systems with pertinent positive or pertinent negative responses have been documented in the HPI. ROS Other: All systems not noted in ROS Statement are negative. Past Medical History Past Medical History: Coronary Artery Disease (CAD), Chest Pain / Angina, COPD, Hyperlipidemia, Hypertension, Myocardial Infarction (LA) Additional Past Medical History / Comment(s): Pt states he has hx of 3 respiratory arrests and was vented, generalized arthritis, Last Myocardial Infarction Date:: History of Any Multi-Drug Resistant Organisms: None Reported Past Surgical History: Adenoidectomy, Heart Catheterization With Stent, Hernia Repair, Joint Replacement, Orthopedic Surgery, Tonsillectomy Additional Past Surgical History / Comment(s): R inguinal hernia repair, L rotator cuff repair, bialteral total knee arthroplasties, R shoulder spur removal, teeth extracted, colonoscopy-normal. third hernia repair, left side, stents x2 2020, stents x1 11/2021 Past Anesthesia/Blood Transfusion Reactions: No Reported Reaction Date of Last Stent Placement:: 2021 Past Psychological History: No Psychological Hx Reported Smoking Status: Former smoker Past Alcohol Use History: None Reported Past Drug Use History: None Reported - Past Family History Father Family Medical History: Cancer Additional Family Medical History / Comment(s): Father of lung cancer at the age of 62. He was a smoker. Mother Family Medical History: Cancer, Diabetes Mellitus, Hypertension Additional Family Medical History / Comment(s): Mother at age 78 from brainstem cancer. Brother(s) Additional Family Medical History / Comment(s): Patient's 1 brother with history of AAA. Patient has 4 sisters and he does not know any of their medical history. Patient's 1 son and 1 daughter living. He had one daughter that at 7 weeks old from a congenital heart. General Exam Limitations: no limitations General appearance: alert, in no apparent distress Head exam: Present: atraumatic, normocephalic, normal inspection Eye exam: Present: normal appearance, PERRL Pupils: Present: normal accommodation ENT exam: Present: normal exam, normal oropharynx, mucous membranes moist Neck exam: Present: normal inspection, full ROM Respiratory exam: Present: normal lung sounds bilaterally Cardiovascular Exam: Present: regular rate, normal rhythm, normal heart sounds GI/Abdominal exam: Present: soft, tenderness (Tenderness noted in the epigastric region) Extremities exam: Present: normal inspection, full ROM Back exam: Present: normal inspection, full ROM Neurological exam: Present: alert, oriented X3, CN II-XII intact Psychiatric exam: Present: normal affect, normal mood Skin exam: Present: warm, dry Course Vital Signs 08/10/22 08/11/22 22:15 00:59 Temperature 98.3 F Pulse Rate 66 63 Respiratory 18 95 H Rate Blood Pressure 138/81 141/94 O2 Sat by Pulse 98 98 Oximetry EKG Findings - EKG Comments: EKG Findings:: An EKG was obtained and was interpreted by myself showing a rate of 63, NM interval 173, QRS duration 96 and QTC of 380. This EKG showed a normal sinus rhythm with no ST segment elevation or depression noted. Medical Decision Making - Medical Decision Making Was pt. sent in by a medical professional or institution (, PA, INSPECTOR EXPERIMENTAL ASSEMBLY, urgent care, hospital, or intermediate...) When possible be specific @ -No Did you speak to anyone other than the patient for history (EMS, parent, family, police, friend...)? What history was obtained from this source @ -No Did you review nursing and triage notes (agree or disagree)? Why? @ -I reviewed and agree with nursing and triage notes Were old charts reviewed (outside hosp., previous admission, EMS record, old EKG, old radiological studies, urgent care reports/EKG's, intermediate records)? Report findings @ -No old charts were reviewed Differential Diagnosis (chest pain, altered mental status, abdominal pain women, abdominal pain men, vaginal bleeding, weakness, fever, dyspnea, syncope, headache, dizziness, GI bleed, back pain, seizure, CVA, palpatations, mental he alth)? @ -GERD, peptic ulcer disease, ACS, pneumothorax, pneumonia EKG interpreted by me (3pts min.). @ -As above X-rays interpreted by me (1pt min.). @ -Chest x-ray was obtained and was interpreted by myself showing no acute process. CT interpreted by me (1pt min.). @ -None done U/S interpreted by me (1pt. min.). @ -None done What testing was considered but not performed or refused? (CT, X-rays, U/S, labs )? Why? @ -None What meds were considered but not given or refused? Why? @ -None Did you discuss the management of the patient with other professionals (professionals i.e. , PA, INSPECTOR EXPERIMENTAL ASSEMBLY, lab, RT, psych nurse, social media specialist, welder/installer, teacher, officer lieutenant, bottle caser)? Give summary @ -No Was smoking cessation discussed for >3mins.? @ -No Was critical care preformed (if so, how long)? @ -No Were there social determinants of health that impacted care today? How? (Homelessness, low income, unemployed, alcoholism, drug addiction, transportation, low edu. Level, literacy, decrease access to med. care, residential, rehab)? @ -No Was there de-escalation of care discussed even if they declined (Discuss DNR or withdrawal of care, Hospice)? DNR status @ -No What co-morbidities impacted this encounter? (DM, HTN, Smoking, COPD, CAD, Cancer, CVA, ARF, Chemo, Hep., AIDS, mental health diagnosis, sleep apnea, morbid obesity)? @ -Hypertension, previous cardiac stents, GERD Was patient admitted / discharged? Hospital course, mention meds given and route, prescriptions, significant lab abnormalities, going to OR and other pertinent info. @ -The patient was seen and evaluated emergency department. On physical exam, the patient was resting in bed without any acute distress. Vital signs admission were stable. On evaluation, the patient did have continued burning in the center of his chest as well as some minor epigastric tenderness consistent with likely GERD. Laboratory workup was within normal limits as was a chest x- ray. The patient did have Pepcid and a GI cocktail given in the emergency department. On reevaluation, the patient had continued symptoms and due to the patient's history of cardiac stents and central chest pain, the patient will be placed in observation for evaluation by cardiology. The patient was agreeable to this plan and was placed in observation in stable condition. Undiagnosed new problem with uncertain prognosis? @ -No Drug Therapy requiring intensive monitoring for toxicity (Heparin, Nitro, Insulin, Cardizem)? @ -No Were any procedures done? @ -No Diagnosis/symptom? @ -Chest pain, rule out ACS, GERD Acute, or Chronic, or Acute on Chronic? @ -Acute on chronic Uncomplicated (without systemic symptoms) or Complicated (systemic symptoms)? @ -Complicated Side effects of treatment? @ -No Exacerbation, Progression, or Severe Exacerbation? @ -No Poses a threat to life or bodily function? How? (Chest pain, USA, LA, pneumonia, PE, COPD, DKA, ARF, appy, cholecystitis, CVA, Diverticulitis, Homicidal, Suicidal, threat to staff... and all critical care pts) @ -Yes, chest pain can lead to possible cardiac etiology leading to permanent damage possible . - Lab Data Result diagrams: 08/10/22 22:35 08/10/22 22:35 Lab Results 08/10/22 08/10/22 08/10/22 Range/Units 22:35 22:35 22:35 WBC 10.0 (3.8-10.6) k/uL RBC 4.57 (4.30-5.90) m/uL Hgb 14.2 (13.0-17.5) gm/dL Hct 41.4 (39.0-53.0) % MCV 90.4 (80.0-100.0) fL MCH 31.1 (25.0-35.0) pg MCHC 34.4 (31.0-37.0) g/dL RDW 12.9 (11.5-15.5) % Plt Count 195 (150-450) k/uL MPV 8.3 Neutrophils % 65 % Lymphocytes % 26 % Monocytes % 6 % Eosinophils % 2 % Basophils % 1 % Neutrophils # 6.5 (1.3-7.7) k/uL Lymphocytes # 2.6 (1.0-4.8) k/uL Monocytes # 0.6 (0-1.0) k/uL Eosinophils # 0.2 (0-0.7) k/uL Basophils # 0.1 (0-0.2) k/uL PT 9.5 (9.0-12.0) sec INR 0.9 (<1.2) APTT 22.2 (22.0-30.0) sec Sodium 136 L (137-145) mmol/L Potassium 3.9 (3.5-5.1) mmol/L Chloride 101 (98-107) mmol/L Carbon Dioxide 24 (22-30) mmol/L Anion Gap 11 mmol/L BUN 20 (9-20) mg/dL Creatinine 0.87 (0.66-1.25) mg/dL Est GFR (CKD-EPI)AfAm >90 (>60 ml/min/1.73 sqM) Est GFR (CKD-EPI)NonAf >90 (>60 ml/min/1.73 sqM) Glucose 120 H (74-99) mg/dL Calcium 9.4 (8.4-10.2) mg/dL Magnesium 2.1 (1.6-2.3) mg/dL Total Bilirubin 0.5 (0.2-1.3) mg/dL AST 23 (17-59) U/L ALT 26 (4-49) U/L Alkaline Phosphatase 117 (38-126) U/L Troponin I (0.000-0.034) ng/mL Total Protein 6.4 (6.3-8.2) g/dL Albumin 3.8 (3.5-5.0) g/dL 08/10/22 Range/Units 22:35 WBC (3.8-10.6) k/uL RBC (4.30-5.90) m/uL Hgb (13.0-17.5) gm/dL Hct (39.0-53.0) % MCV (80.0-100.0) fL MCH (25.0-35.0) pg MCHC (31.0-37.0) g/dL RDW (11.5-15.5) % Plt Count (150-450) k/uL MPV Neutrophils % % Lymphocytes % % Monocytes % % Eosinophils % % Basophils % % Neutrophils # (1.3-7.7) k/uL Lymphocytes # (1.0-4.8) k/uL Monocytes # (0-1.0) k/uL Eosinophils # (0-0.7) k/uL Basophils # (0-0.2) k/uL PT (9.0-12.0) sec INR (<1.2) APTT (22.0-30.0) sec Sodium (137-145) mmol/L Potassium (3.5-5.1) mmol/L Chloride (98-107) mmol/L Carbon Dioxide (22-30) mmol/L Anion Gap mmol/L BUN (9-20) mg/dL Creatinine (0.66-1.25) mg/dL Est GFR (CKD-EPI)AfAm (>60 ml/min/1.73 sqM) Est GFR (CKD-EPI)NonAf (>60 ml/min/1.73 sqM) Glucose (74-99) mg/dL Calcium (8.4-10.2) mg/dL Magnesium (1.6-2.3) mg/dL Total Bilirubin (0.2-1.3) mg/dL AST (17-59) U/L ALT (4-49) U/L Alkaline Phosphatase (38-126) U/L Troponin I <0.012 (0.000-0.034) ng/mL Total Protein (6.3-8.2) g/dL Albumin (3.5-5.0) g/dL Disposition Clinical Impression: Chest pain Disposition: ADMITTED IP TO THIS HOSP Condition: Stable Is patient prescribed a controlled substance at d/c from ED?: No Referrals: Ava Erwin, NPC [Primary Care Provider] - 1-2 days Time of Disposition: 01:15 Decision to Admit Reason: Admit from EC Decision Date: 08/11/22 Decision Time: 01:15
[2022-08-11] MEDS ORDERED: NALOXONE 0.4 MG/ML 1 ML VIAL IV PRN (01:19)
[2022-08-11] MEDS ORDERED: MORPHINE SULFATE 4 MG/ML SYRINGE IVP STA (04:17)
[2022-08-11] MEDS ORDERED: AMINOPHYLLINE 500 MG/20 ML VIAL IV PRN (08:24)
[2022-08-11] MEDS ORDERED: REGADENOSON 0.4 MG/5 ML SYRINGE IV PRN (08:24)
[2022-08-11] MEDS ORDERED: CAFFEINE CITRATE 60 MG/3 ML VIAL IV PRN (08:24)
[2022-08-11] MEDS ORDERED: SODIUM CHLORIDE 0.9% 1,000 ML IV SCH (08:30)
[2022-08-11] MEDS ORDERED: PANTOPRAZOLE 40 MG TABLET PO SCH (08:30)
[2022-08-11] MEDS ORDERED: VERAPAMIL SR 120 MG TABLET.ER PO SCH (09:00)
[2022-08-11] MEDS ORDERED: ISOSORBIDE MONONITRATE ER 30 MG TAB.ER.24H PO SCH (09:00)
[2022-08-11] MEDS ORDERED: CLOPIDOGREL 75 MG TAB PO SCH (09:00)
--- NOTE | 2022-08-11 10:12 | P.CRDCN ---
History of Present Illness Consult date: 08/11/22 Consult reason: chest pain History of present illness: HISTORY OF PRESENT ILLNESS: This is a 61-year-old male patient of Dr. De Luna with a past medical history significant for coronary artery disease with previous stenting of the LAD and RCA, hypertension, hyperlipidemia, COPD, and former nicotine dependence. We have been asked to see the patient in consultation for chest pain. Patient has had several recent hospitalizations which did include cardiac catheterization on 06/24 and a repeat cardiac catheterization on 06/26 finding coronary spasm. Since then, patient has had a hospitalization for chest pain and was evaluated by cardiology at that time and cleared for discharge plan follow-up Dr. De Luna in the office as patient had a stress test scheduled for August. Patient presents again to the emergency center due to chest pain that is a burning type pain that lasted about 6 hours prior to and thought it was related to gastric reflux. He did try Tums and Pepcid at home without relief. He has been resumed on Pepcid in the emergency center. * EKG reveals sinus mechanism with no signs of acute ischemia * Chest xray negative for acute process. * Laboratory data: WBC 10, hemoglobin 14.2, platelet count 195. INR 0.9. Sodium 136 otherwise electrolytes renal function are normal, blood sugar 120. Troponin negative 2. Liver function tests are normal. * Current home cardiac medications include aspirin 81 mg daily, atorvastatin 80 mg at night, Plavix 75 mg daily, Imdur 30 mg daily, nitroglycerin sublingual, verapamil 120 mg twice daily * Most recent echocardiogram obtained 06/23/2022 revealed EF of 50-55%. Borderline LVH. Trace to mild mitral regurgitation. Trace to mild tricuspid regurgitation. No pericardial effusion. * Cardiac catheterization history: 06/24/[address] De Luna revealed patent stent in the right coronary artery. Patent stent in the left anterior descending artery. Intermediate lesion involving the proximal LCx. iFR was performed and came in to be nonischemic. * Cardiac catheterization 06/26: Patent stents in the RCA and LAD. Intermediate lesion involving the mid circumflex unchanged. Overall coronary vasospasm involving the coronary tree. REVIEW OF SYSTEMS: At the time of my exam: CONSTITUTIONAL: Denies fever or chills. HEENT: Denies blurred vision, vision changes, or eye pain. Denies hemoptysis CARDIOVASCULAR: Reports mild chest pain. Denies orthopnea. Denies PND. Denies palpitations RESPIRATORY: Denies shortness of breath. GASTROINTESTINAL: Denies abdominal pain. Denies nausea or vomiting. HEMATOLOGIC: Denies bleeding disorders. GENITOURINARY: Denies any blood in urine. SKIN: Denies pruitis. Denies rash. PHYSICAL EXAM: VITAL SIGNS: Reviewed. GENERAL: Well-developed in no acute distress. HEENT: Head is normocephalic. Pupils are equal, round. Sclerae anicteric. Mucous membranes of the mouth are moist. Neck supple. No JVD LUNGS: Respirations even and unlabored. Lungs essentially clear to auscultation bilaterally. HEART: Regular rate and rhythm. S1 and S2 heard. ABDOMEN: Soft. Nondistended. Nontender. EXTREMITIES: Normal range of motion. No clubbing or cyanosis. Peripheral pulses intact. No lower extremity edema NEUROLOGIC: Awake and alert. Oriented x 3. ASSESSMENT: Chest pain, noncardiac, acute coronary syndrome ruled out Coronary artery disease with previous stenting of the RCA and most recently to the LAD in November 2021 Hypertension Hyperlipidemia COPD Former nicotine dependence PLAN: Resume patient's home cardiac medications No need to repeat echocardiogram Patient will be scheduled for Lexiscan stress test today If stress test is negative, patient is cleared for discharge from cardiology. Patient may follow up with Dr. De Luna in the office. Further recommendations pending patient's course Nurse practitioner note has been reviewed by physician. Signing provider agrees with the documented findings, assessment, and plan of care. Past Medical History Past Medical History: Coronary Artery Disease (CAD), Chest Pain / Angina, COPD, Hyperlipidemia, Hypertension, Myocardial Infarction ([place]) Additional Past Medical History / Comment(s): Pt states he has hx of 3 respiratory arrests and was vented, generalized arthritis, Last Myocardial Infarction Date:: History of Any Multi-Drug Resistant Organisms: None Reported Past Surgical History: Adenoidectomy, Heart Catheterization With Stent, Hernia Repair, Joint Replacement, Orthopedic Surgery, Tonsillectomy Additional Past Surgical History / Comment(s): R inguinal hernia repair, L rotator cuff repair, bialteral total knee arthroplasties, R shoulder spur removal, teeth extracted, colonoscopy-normal. third hernia repair, left side, stents x2 2020, stents x1 11/2021 Past Anesthesia/Blood Transfusion Reactions: No Reported Reaction Date of Last Stent Placement:: 2021 Past Psychological History: No Psychological Hx Reported Smoking Status: Former smoker Past Alcohol Use History: None Reported Past Drug Use History: None Reported - Past Family History Father Family Medical History: Cancer Additional Family Medical History / Comment(s): Father of lung cancer at the age of 62. He was a smoker. Mother Family Medical History: Cancer, Diabetes Mellitus, Hypertension Additional Family Medical History / Comment(s): Mother at age 78 from brainstem cancer. Brother(s) Additional Family Medical History / Comment(s): Patient's 1 brother with history of AAA. Patient has 4 sisters and he does not know any of their medical history. Patient's 1 son and 1 daughter living. He had one daughter that at 7 weeks old from a congenital heart. Medications and Allergies Home Medications Medication Instructions Recorded Confirmed Type Clopidogrel [Plavix] 75 mg PO DAILY #30 tab 11/02/20 08/11/22 Rx Montelukast [Singulair] 10 mg PO HS 11/23/20 08/11/22 History Atorvastatin Calcium [Lipitor] 80 mg PO HS 03/25/21 08/11/22 History Budesonide [Pulmicort] 1 mg INHALATION RT-BID ml 03/31/21 08/11/22 Rx Ipratropium-Albuterol Nebulize 3 ml INHALATION RT-Q4H PRN ml 03/31/21 08/11/22 Rx [Duoneb 0.5 mg-3 mg/3 ml Soln] Albuterol Nebulized [Ventolin 2.5 mg INHALATION RT-Q4H PRN 08/20/21 08/11/22 History Nebulized] Albuterol Sulfate [Proair Hfa] 2 puff INHALATION RT-Q4H PRN 08/20/21 08/11/22 History Aspirin EC [Ecotrin Low Dose] 81 mg PO DAILY 12/13/21 08/11/22 History Famotidine [Pepcid] 20 mg PO BID 12/13/21 08/11/22 History Isosorbide Mononitrate ER [Imdur] 30 mg PO DAILY 30 Days #30 tab 06/28/22 08/11/22 Rx Nitroglycerin Sl Tabs [Nitrostat] 0.4 mg SL Q5M PRN 30 Days #25 tab 06/28/22 08/11/22 Rx Verapamil Sr [Isoptin Sr] 120 mg PO BID 30 Days #60 tab 06/28/22 08/11/22 Rx Acetaminophen Tab [Tylenol] 650 mg PO Q6HR PRN tab 07/29/22 08/11/22 Rx predniSONE See Taper PO DIRECTED 08/11/22 08/11/22 History Allergies Allergy/AdvReac Type Severity Reaction Status Date / Time levofloxacin [From Levaquin] AdvReac Nausea & Verified 08/11/22 07:25 Vomiting Physical Exam Vitals: Vital Signs Temp Pulse Resp BP Pulse Ox 08/11/22 07:26 98.2 F 70 18 132/68 96 08/11/22 04:24 61 16 126/75 97 08/11/22 00:59 63 16 141/94 98 08/10/22 22:15 98.3 F 66 18 138/81 98 Intake and Output 08/10/22 08/11/22 08/11/22 22:59 06:59 14:59 Other: Weight 91.626 kg Results 08/10/22 22:35 08/10/22 22:35 Cardiac Enzymes 08/10/22 08/10/22 Range/Units 22:35 22:35 AST 23 (17-59) U/L Troponin I <0.012 (0.000-0.034) ng/mL Coagulation 08/10/22 Range/Units 22:35 PT 9.5 (9.0-12.0) sec APTT 22.2 (22.0-30.0) sec CBC 08/10/22 Range/Units 22:35 WBC 10.0 (3.8-10.6) k/uL RBC 4.57 (4.30-5.90) m/uL Hgb 14.2 (13.0-17.5) gm/dL Hct 41.4 (39.0-53.0) % Plt Count 195 (150-450) k/uL Comprehensive Metabolic Panel 08/10/22 Range/Units 22:35 Sodium 136 L (137-145) mmol/L Potassium 3.9 (3.5-5.1) mmol/L Chloride 101 (98-107) mmol/L Carbon Dioxide 24 (22-30) mmol/L BUN 20 (9-20) mg/dL Creatinine 0.87 (0.66-1.25) mg/dL Glucose 120 H (74-99) mg/dL Calcium 9.4 (8.4-10.2) mg/dL AST 23 (17-59) U/L ALT 26 (4-49) U/L Alkaline Phosphatase 117 (38-126) U/L Total Protein 6.4 (6.3-8.2) g/dL Albumin 3.8 (3.5-5.0) g/dL Current Medications Generic Name Dose Route Start Last Admin Trade Name Freq PRN Reason Stop Dose Admin Naloxone HCl 0.2 mg 08/11/22 01:19 Naloxone 0.4 Mg/Ml 1 Ml Vial IV Q2M PRN Opioid Reversal Intake and Output 08/10/22 08/11/22 08/11/22 22:59 06:59 14:59 Other: Weight 91.626 kg 08/10/22 22:35 08/10/22 22:35
[2022-08-11] MEDS ORDERED: ALBUTEROL NEBULIZED 2.5 MG/3 ML INHALATION PRN (10:17)
[2022-08-11] MEDS ORDERED: ALBUTEROL HFA INHALER INHALATION PRN (10:17)
[2022-08-11] MEDS ORDERED: IPRATROPIUM-ALBUTEROL 3 ML NEB INHALATION PRN (10:17)
[2022-08-11] MEDS ORDERED: ACETAMINOPHEN TAB 325 MG TAB PO PRN (10:17)
--- NOTE | 2022-08-11 11:29 | NM ---
EXAMINATION TYPE: NM stress lexiscan cardiolite DATE OF EXAM: 08/11/2022 COMPARISON: 12/16/2021 CLINICAL INDICATION: Male, 61 years old with history of cp; TECHNIQUE: After the intravenous administration of 9.8 mCi Tc 99m Sestamibi - Cardiolite resting SPE CT images acquired 75 minutes post injection. The patient received 0.4mg Lexiscan, 25.5 mCi Tc 99m Sestamibi - Stress images obtained [address] injection FINDINGS: Review of stress and rest SPECT images demonstrates fixed perfusion abnormality apical and inferior w all with corresponding wall motion abnormality. Gated analysis shows normal wall motion with an seble mated left ventricular ejection fraction of 54 %. IMPRESSION: No scintigraphic evidence for reversible ischemia.
--- NOTE | 2022-08-11 11:58 | CA ---
Lexiscan Nuclear Stress Test Report Name: Marcel Jo Exam Date: 08/11/2022 10:23 Exam Location: [place] Stress Ht (in): 68 Wt (lb): 202 BSA: 2.05 Ordering Phys: Daysi Nunn Referring Phys: YOSI, Technologist: ANGELICA,, Age: 61 Gender: M : 1960 Procedure CPT: Indications: Reflex order-Stress test ICD-10 Codes: Patient History: Chest Pain and shortness of breath Medications: Meds past 24 hrs: Pretest Chest Pain: STRESS TEST Lexiscan Protocol Exercise Duration (min:sec): Max ST Depressions (mm): Angina Score: Weber Score: Resting HR (bpm): 60 Peak HR (bpm): 96 Resting BP (mmHg): 117 / 74 Peak BP (mmHg): 122 / 85 MPHR: 160 Target HR: 136 % MPHR: 60 METS: 1.0 Total Dose: Peak Dose: Atropine: Double Product: 17000 BP Response: Stress Termination: Infusion complete Stress Symptoms: No chest pain or symptoms Stress Summary: ECG ANALYSIS Resting ECG: Stress ECG: CONCLUSIONS Baseline EKG revealed normal sinus rhythm without significant ST-T changes. With Lexiscan administration heart rate changed from 60-85 bpm and the blood pressure changed from 117/74- 120/69. Patient was asymptomatic. EKG was unremarkable. By EKG criteria this is a unremarkable Lexiscan stress test. The nuclear scan results which are more pertinent will be reported by the radiologist Dr. Monico Strange MD (Electronically Signed) Final Date: 11 Aug 2022 11:57
--- NOTE | 2022-08-11 12:50 | P.HPIM ---
History of Present Illness H&P Date: 08/11/22 This is a 61-year-old male who presented to the emergency department with chest pain with burning sensation without any radiation. Patient does have significant cardiac history of multiple stents including hypertension, coronary artery disease, angina, COPD, hyperlipidemia, hypertension, myocardial infarction and reports he follows with Ava Erwin NP in the outpatient setting. Patient also has significant past medical history of drug use in the past at least 15 years ago with heroin, LSD, cocaine, recently quit smoking a few years ago and does admit to marijuana. Patient is a recovering alcoholic as well. In the emergency department WBC was within normal limits at 10 and hemo globin was 14.2, sodium was 136, potassium 3.9, creatinine 0.87, troponins 2 have been negative. EKG showed sinus rhythm with a heart rate of 63 bpm, chest x-ray showed no acute process with no pleural effusion or pneumothorax noted. Patient was admitted under observation with cardiology placed on consult and telemetry monitoring. Patient was seen by cardiology earlier this morning plans for cardiac stress testing. Review Of Systems: Constitutional: No fever, no chills, no night sweats. No weight change. No weakness, fatigue or lethargy. No daytime sleepiness. EENT: No headache. No blurred vision or double vision, no loss of vision. No loss of Hearing, no ringing in the ears, no dizziness. No nasal drainage or congestion. No epistaxis. No sore throat. Lungs: No shortness of breath, cough, no sputum production. No wheezing. Cardiovascular: Reports chest pain, no lower extremity edema. No palpitations. No paroxysmal nocturnal dyspnea. No orthopnea. No lightheadedness or dizziness. No syncopal episodes. Abdominal: No abdominal pain. No nausea, vomiting. No diarrhea. No constipation. No bloody or tarry stools.. No loss of appetite. Genitourinary: No dysuria, increased frequency, urgency. No urinary retention. Musculoskeletal: No myalgias. No muscle weakness, no gait dysfunction, no frequent falls. No back pain. No neck pain. Integumentary: No wounds, no lesions. No rash or pruritus. No unusual bruising. No change in hair or nails. Neurologic: No aphasia. No facial droop. No change in mentation. No head injury. No headache. No paralysis. No paresthesia. Psychiatric: No depression. No anxiety. No mood swings. Endocrine: No abnormal blood sugars. No weight change. No excessive sweating or thirst. No cold intolerance. PHYSICAL EXAMINATION: GENERAL: The patient is alert and oriented x4, Well developed, well nourished. Obese HEENT: Pupils are round and equally reacting to light. EOMI. no scleral icterus. No conjunctival pallor. Normocephalic, atraumatic. No pharyngeal erythema. No thyromegaly. CARDIOVASCULAR: S1 and S2 muffled PULMONARY: diminished breath sounds bilaterally with no wheezing or rhonchi noted. ABDOMEN: soft. Nontender on exam. obese. non-distended, normoactive bowel sounds. No palpable organomegaly. MUSCULOSKELETAL: No joint swelling or deformity. EXTREMITIES: No cyanosis, clubbing, or pedal edema. NEUROLOGICAL: Gross neurological examination did not reveal any focal deficits. SKIN: No rashes. Assessment: Chest pain, ruled out ACS, normal stress test today on 08/11/2022 history of coronary artery disease with stenting Obesity with a BMI of 30.7 Hypertension Hyperlipidemia Chronic obstructive pulmonary disease, not an exacerbation Occasional THC use Recovering alcoholic with past history of illicit drug use including cocaine and heroin and LSD GI prophylaxis DVT prophylaxis Full code Plan: Recommend to continue with current medications and management with cardiology on consult. Patient was evaluated by cardiology earlier this morning recommend stress test and underwent Lexiscan which was within normal limits and per cardiology note week. No repeat Echo needed as he recently had one. All home medications reviewed and resumed recommend follow-up with primary care provider along with cardiology Dr. De Luna in the outpatient setting in 1-2 weeks Patient will be cleared for discharge later today The impression and plan of care has been dictated by Milagro Freitas, nurse practitioner as directed. Dr. Shailesh MD I have performed a history and examination and MDM of this patient, discussed the same with the dictator, and agree with the dictator's assessment and plan as written ,documented as a scribe. Based on total visit time, I have performed more than 50% of the visit. Any additional findings or plans will be noted. Past Medical History Past Medical History: Coronary Artery Disease (CAD), Chest Pain / Angina, COPD, Hyperlipidemia, Hypertension, Myocardial Infarction (OK) Additional Past Medical History / Comment(s): Pt states he has hx of 3 respiratory arrests and was vented, generalized arthritis, Last Myocardial Infarction Date:: History of Any Multi-Drug Resistant Organisms: None Reported Past Surgical History: Adenoidectomy, Heart Catheterization With Stent, Hernia Repair, Joint Replacement, Orthopedic Surgery, Tonsillectomy Additional Past Surgical History / Comment(s): R inguinal hernia repair, L rotator cuff repair, bialteral total knee arthroplasties, R shoulder spur removal, teeth extracted, colonoscopy-normal. third hernia repair, left side, stents x2 2020, stents x1 11/2021 Past Anesthesia/Blood Transfusion Reactions: No Reported Reaction Date of Last Stent Placement:: 2021 Past Psychological History: No Psychological Hx Reported Smoking Status: Former smoker Past Alcohol Use History: None Reported Past Drug Use History: None Reported - Past Family History Father Family Medical History: Cancer Additional Family Medical History / Comment(s): Father of lung cancer at the age of 62. He was a smoker. Mother Family Medical History: Cancer, Diabetes Mellitus, Hypertension Additional Family Medical History / Comment(s): Mother at age 78 from brainstem cancer. Brother(s) Additional Family Medical History / Comment(s): Patient's 1 brother with history of AAA. Patient has 4 sisters and he does not know any of their medical history. Patient's 1 son and 1 daughter living. He had one daughter that at 7 weeks old from a congenital heart. Medications and Allergies Home Medications Medication Instructions Recorded Confirmed Type Clopidogrel [Plavix] 75 mg PO DAILY #30 tab 11/02/20 08/11/22 Rx Montelukast [Singulair] 10 mg PO HS 11/23/20 08/11/22 History Atorvastatin Calcium [Lipitor] 80 mg PO HS 03/25/21 08/11/22 History Budesonide [Pulmicort] 1 mg INHALATION RT-BID ml 03/31/21 08/11/22 Rx Ipratropium-Albuterol Nebulize 3 ml INHALATION RT-Q4H PRN ml 03/31/21 08/11/22 Rx [Duoneb 0.5 mg-3 mg/3 ml Soln] Albuterol Nebulized [Ventolin 2.5 mg INHALATION RT-Q4H PRN 08/20/21 08/11/22 History Nebulized] Albuterol Sulfate [Proair Hfa] 2 puff INHALATION RT-Q4H PRN 08/20/21 08/11/22 History Aspirin EC [Ecotrin Low Dose] 81 mg PO DAILY 12/13/21 08/11/22 History Famotidine [Pepcid] 20 mg PO BID 12/13/21 08/11/22 History Isosorbide Mononitrate ER [Imdur] 30 mg PO DAILY 30 Days #30 tab 06/28/22 08/11/22 Rx Nitroglycerin Sl Tabs [Nitrostat] 0.4 mg SL Q5M PRN 30 Days #25 tab 06/28/22 08/11/22 Rx Verapamil Sr [Isoptin Sr] 120 mg PO BID 30 Days #60 tab 06/28/22 08/11/22 Rx Acetaminophen Tab [Tylenol] 650 mg PO Q6HR PRN tab 07/29/22 08/11/22 Rx predniSONE See Taper PO DIRECTED 08/11/22 08/11/22 History Allergies Allergy/AdvReac Type Severity Reaction Status Date / [facility] Adv[facility]ac Nausea & Verified 08/11/22 07:25 Vomiting Physical Exam Vitals: Vital Signs Temp Pulse Pulse Resp BP BP Pulse Ox 08/11/22 08:32 97.9 F 62 111/70 97 08/11/22 07:26 98.2 F 70 18 132/68 96 08/11/22 04:24 61 16 126/75 97 08/11/22 00:59 63 16 141/94 98 08/10/22 22:15 98.3 F 66 18 138/81 98 Intake and Output 08/10/22 08/11/22 08/11/22 22:59 06:59 14:59 Other: Weight 91.626 kg Results CBC & Chem 7: 08/10/22 22:35 08/10/22 22:35 Labs: Abnormal Lab Results - Last 24 Hours (Table) 08/10/22 Range/Units 22:35 Sodium 136 L (137-145) mmol/L Glucose 120 H (74-99) mg/dL Thrombosis Risk Factor Assmnt - DVT/VTE Prophylaxis DVT/VTE Prophylaxis: Pharmacologic Prophylaxis ordered Assessment and Plan Time with Patient: Greater than 30
[2022-08-11 14:29] VITALS: BP 120/72; PULSE 79; RESP 16; TEMP 97.6
[2022-08-11] MEDS ORDERED: BUDESONIDE 1 MG/2 ML NEBU INHALATION SCH (20:00)
[2022-08-11] MEDS ORDERED: FAMOTIDINE 20 MG TAB PO SCH (21:00)
[2022-08-11] MEDS ORDERED: ATORVASTATIN 80 MG TAB PO SCH (21:00)
[2022-08-11] MEDS ORDERED: MONTELUKAST 10 MG TAB PO SCH (21:00)
--- NOTE | 2022-08-12 01:38 | P.DS ---
Providers Date of admission: 08/11/22 01:19 Expected date of discharge: 08/11/22 Attending physician: Mukesh Maria MD Consults: 08/11/22 01:19 Consult Physician Routine Consulting Provider: [facility] Consult Reason/Comments: Chest pain, r/o ACS Do you want consulting provider notified?: Yes, Notify in am Primary care physician: THEODORA Fernandez Hospital Course: Final diagnosis Chest pain, ruled out ACS, normal stress test today on 08/11/2022 history of coronary artery disease with stenting Obesity with a BMI of 30.7 Hypertension Hyperlipidemia Chronic obstructive pulmonary disease, not an exacerbation Occasional THC use Recovering alcoholic with past history of illicit drug use including cocaine and heroin and LSD GI prophylaxis DVT prophylaxis Full code Discharge disposition Patient is being discharged in a stable condition with guarded prognosis to home. Patient will follow-up with Dr. Ava Erwin, [employer] in the outpatient setting upon discharge. Patient is to continue with current medications as mentioned below and outpatient follow-up with cardiology as scheduled. Total time taken is greater than 35 minutes. Hospital course This is a 61-year-old male who was recently admitted chest pain and evaluated by cardiology. Patient underwent stress testing which was negative and has been cleared by cardiology. Patient continues to report some chest burning and normally takes Prilosec 20 mg twice daily and will add Protonix 40 mg twice daily for the next 2 weeks and recommend outpatient follow-up with GI as well as cardiology. Please refer to cardiology notes for further HPI. Currently no reports of chest pain, shortness of breath, or palpitations. Patient is afebrile. No reports of nausea or vomiting and patient is tolerating diet. Patient will be discharged home today. High risk for readmission as patient has had multiple visits to the ER and hospitalizations for chest pain Physical exam: Gen: This is a 61-year-old male who is awake, alert and oriented 3, well- developed, well-nourished, obese HEENT: Head is atraumatic, normocephalic. Pupils equal, round. Sclerae is anicteric. NECK: Supple. No JVD. No lymphadenopathy. No thyromegaly. LUNGS: Clear to auscultation. No wheezes or rhonchi. No intercostal retractions. HEART: Regular rate and rhythm. No murmur. ABDOMEN: Soft. Bowel sounds are present. No masses. No tenderness. EXTREMITIES: No pedal edema. No calf tenderness. NEUROLOGICAL: Patient is awake, alert and oriented x3. Cranial nerves 2 through 12 are grossly intact. Please refer to medication reconciliation sheet for a list of medications. The impression and plan of care has been dictated by Milagro Freitas, Nurse Practitioner as directed. Dr. Shailesh MD I have performed a history and examination and MDM of this patient, discussed the same with the dictator, and agree with the dictator's assessment and plan as written ,documented as a scribe. Based on total visit time, I have performed more than 50% of the visit. Patient Condition at Discharge: Stable Plan - Discharge Summary Discharge Rx Participant: Yes New Discharge Prescriptions: New Pantoprazole [Protonix] 40 mg PO BID 15 Days #30 tab Continue Clopidogrel [Plavix] 75 mg PO DAILY #30 tab Montelukast [Singulair] 10 mg PO HS Aspirin EC [Ecotrin Low Dose] 81 mg PO DAILY Famotidine [Pepcid] 20 mg PO BID Nitroglycerin Sl Tabs [Nitrostat] 0.4 mg SL Q5M PRN 30 Days #25 tab PRN Reason: Chest Pain Acetaminophen Tab [Tylenol] 650 mg PO Q6HR PRN tab PRN Reason: Fever And/ Or Pain Atorvastatin Calcium [Lipitor] 80 mg PO HS Ipratropium-Albuterol Nebulize [Duoneb 0.5 mg-3 mg/3 ml Soln] 3 ml INHALATION RT-Q4H PRN ml PRN Reason: Shortness Of Breath Or Wheezing Budesonide [Pulmicort] 1 mg INHALATION RT-BID ml Albuterol Sulfate [Proair Hfa] 2 puff INHALATION RT-Q4H PRN PRN Reason: Shortness Of Breath Albuterol Nebulized [Ventolin Nebulized] 2.5 mg INHALATION RT-Q4H PRN PRN Reason: Shortness Of Breath Isosorbide Mononitrate ER [Imdur] 30 mg PO DAILY 30 Days #30 tab Verapamil Sr [Isoptin Sr] 120 mg PO BID 30 Days #60 tab predniSONE See Taper PO DIRECTED Discharge Medication List Clopidogrel [Plavix] 75 mg PO DAILY #30 tab 11/02/20 [Rx] Montelukast [Singulair] 10 mg PO HS 11/23/20 [History] Atorvastatin Calcium [Lipitor] 80 mg PO HS 03/25/21 [History] Budesonide [Pulmicort] 1 mg INHALATION RT-BID ml 03/31/21 [Rx] Ipratropium-Albuterol Nebulize [Duoneb 0.5 mg-3 mg/3 ml Soln] 3 ml INHALATION RT-Q4H PRN ml 03/31/21 [Rx] Albuterol Nebulized [Ventolin Nebulized] 2.5 mg INHALATION RT-Q4H PRN 08/20/21 [History] Albuterol Sulfate [Proair Hfa] 2 puff INHALATION RT-Q4H PRN 08/20/21 [History] Aspirin EC [Ecotrin Low Dose] 81 mg PO DAILY 12/13/21 [History] Famotidine [Pepcid] 20 mg PO BID 12/13/21 [History] Isosorbide Mononitrate ER [Imdur] 30 mg PO DAILY 30 Days #30 tab 06/28/22 [Rx] Nitroglycerin Sl Tabs [Nitrostat] 0.4 mg SL Q5M PRN 30 Days #25 tab 06/28/22 [Rx ] Verapamil Sr [Isoptin Sr] 120 mg PO BID 30 Days #60 tab 06/28/22 [Rx] Acetaminophen Tab [Tylenol] 650 mg PO Q6HR PRN tab 07/29/22 [Rx] Pantoprazole [Protonix] 40 mg PO BID 15 Days #30 tab 08/11/22 [Rx] predniSONE See Taper PO DIRECTED 08/11/22 [History] Follow up Appointment(s)/Referral(s): Ava Erwin NPC [Primary Care Provider] - 1-2 days Idris De Luna MD [STAFF PHYSICIAN] - 1 Week Activity/Diet/Wound Care/Special Instructions: Activity Limited until follow-up Follow-up with primary care provider on discharge Continue taking current medications Follow-up with cardiology in the outpatient setting in 1-2 weeks Discharge Disposition: HOME SELF-CARE
== END 2022-08-11 14:55 | disposition home or self-care (01) ==
LOC: EC 22:11 → 6NMEDSUR 08-11 01:19
PROVIDERS: ADMIT Internal Medicine; ATTEND Internal Medicine
DX: R07.89 Other chest pain (principal); I25.10 Atherosclerotic heart disease of native coronary artery without angina pectoris; I10 Essential (primary) hypertension; E78.5 Hyperlipidemia, unspecified; J44.9 Chronic obstructive pulmonary disease, unspecified; K21.9 Gastro-esophageal reflux disease without esophagitis; I25.2 Old myocardial infarction; M13.0 Polyarthritis, unspecified; F12.90 Cannabis use, unspecified, uncomplicated; F10.21 Alcohol dependence, in remission; E66.9 Obesity, unspecified; Z68.30 Body mass index [BMI] 30.0-30.9, adult; Z79.82 Long term (current) use of aspirin; Z79.02 Long term (current) use of antithrombotics/antiplatelets; Z79.51 Long term (current) use of inhaled steroids; Z79.52 Long term (current) use of systemic steroids; Z79.899 Other long term (current) drug therapy; Z88.1 Allergy status to other antibiotic agents; Z95.5 Presence of coronary angioplasty implant and graft; Z87.898 Personal history of other specified conditions; Z87.891 Personal history of nicotine dependence; Z87.09 Personal history of other diseases of the respiratory system; Z96.653 Presence of artificial knee joint, bilateral; Z98.818 Other dental procedure status; Z98.890 Other specified postprocedural states; Z80.1 Family history of malignant neoplasm of trachea, bronchus and lung; Z83.3 Family history of diabetes mellitus; Z82.49 Family history of ischemic heart disease and other diseases of the circulatory system; Z80.8 Family history of malignant neoplasm of other organs or systems; Z81.2 Family history of tobacco abuse and dependence
CPT/HCPCS: 96374; 96375; 99285; 36415; 94640; 93005; 93017; 80053; 83735; 84484 ×2; 85025; 85610; 85730; 71046; 78452; G0378; A9500; J2270; J2785

== ENCOUNTER 2022-08-13 01:23 | Emergency (ER) | payer MEDICARE, OTHER ==
[2022-08-13 01:30] VITALS: TEMP 98.6
[2022-08-13 01:39] LABS: Basophils % (A) 0 %; Eosinophils # (A) 0.3 k/uL (0-0.7); Eosinophils % (A) 3 %; HCT 40.2 % (39.0-53.0); Lymphocytes # (A) 2.5 k/uL (1.0-4.8); Lymphocytes % (A) 28 %; MCH 31.1 pg (25.0-35.0); MCHC 34.7 g/dL (31.0-37.0); MCV 89.7 fL (80.0-100.0); Mean Platelet Volume 8.2; Monocytes # (A) 0.5 k/uL (0-1.0); Monocytes % (A) 6 %; Neutrophils # (A) 5.7 k/uL (1.3-7.7); Neutrophils % (A) 62 %; Platelet Count 198 k/uL (150-450); RBC 4.49 m/uL (4.30-5.90); RDW 12.9 % (11.5-15.5); WBC 9.2 k/uL (3.8-10.6)
[2022-08-13 01:55] LABS: ALT 32 U/L (4-49); AST 27 U/L (17-59); African American GFR (CKD) >90 (>60 ml/min/1.73 sqM); Albumin 3.7 g/dL (3.5-5.0); Alkaline Phosphatase 97 U/L (38-126); Anion Gap 11 mmol/L; Blood Urea Nitrogen 20 mg/dL (9-20); Calcium 8.6 mg/dL (8.4-10.2); Carbon Dioxide 22 mmol/L (22-30); Chloride 104 mmol/L (98-107); Glucose 95 mg/dL (74-99); Magnesium 2.2 mg/dL (1.6-2.3); Non-African American GFR(CKD) >90 (>60 ml/min/1.73 sqM); Sodium 137 mmol/L (137-145); Total Bilirubin 0.5 mg/dL (0.2-1.3); Total Protein 6.2 g/dL (6.3-8.2)
[2022-08-13 01:59] LABS: INR 0.9 (<1.2); Partial Thromboplastin Time 23.9 sec (22.0-30.0); Prothrombin Time 9.8 sec (9.0-12.0)
[2022-08-13] MEDS ORDERED: MORPHINE SULFATE 4 MG/ML SYRINGE IVP STA (02:29)
[2022-08-13] MEDS ORDERED: ONDANSETRON 4 MG/2 ML VIAL IVP STA (02:32)
--- NOTE | 2022-08-13 02:39 | ED ---
General Adult HPI - General Chief complaint: Chest Pain Stated complaint: Chest Pain Time Seen by Provider: 08/13/22 01:28 Source: EMS Mode of arrival: EMS - History of Present Illness Initial comments: This is a 61-year-old male with a past medical history including COPD, hyperte nsion and GERD presents emergency department via EMS for significant chest pain. The patient stated that he had sharp, severe chest pain in the center of his chest without radiation that began 1 hour prior to arrival. The patient stated that he was out of nitroglycerin tablets and called EMS. EMS did give the patient 3 sublingual nitroglycerin tablets and the patient did have relief of his chest pain but on my evaluation, the pain restarted and was severe in the center of his chest. The patient reported associated nausea and vomiting but denied any diaphoresis. The patient did state that he had a history of 2 cardiac stents. The patient denied any other acute pain or complaint at this time but was in distress secondary to chest pain. - Related Data Home Medications Medication Instructions Recorded Confirmed Montelukast [Singulair] 10 mg PO HS 11/23/20 08/11/22 Atorvastatin Calcium [Lipitor] 80 mg PO HS 03/25/21 08/11/22 Albuterol Nebulized [Ventolin 2.5 mg INHALATION RT-Q4H PRN 08/20/21 08/11/22 Nebulized] Albuterol Sulfate [Proair Hfa] 2 puff INHALATION RT-Q4H PRN 08/20/21 08/11/22 Aspirin EC [Ecotrin Low Dose] 81 mg PO DAILY 12/13/21 08/11/22 Famotidine [Pepcid] 20 mg PO BID 12/13/21 08/11/22 predniSONE See Taper PO DIRECTED 08/11/22 08/11/22 Previous Rx's Medication Instructions Recorded Clopidogrel [Plavix] 75 mg PO DAILY #30 tab 11/02/20 Budesonide [Pulmicort] 1 mg INHALATION RT-BID ml 03/31/21 Ipratropium-Albuterol Nebulize 3 ml INHALATION RT-Q4H PRN ml 03/31/21 [Duoneb 0.5 mg-3 mg/3 ml Soln] Isosorbide Mononitrate ER [Imdur] 30 mg PO DAILY 30 Days #30 tab 06/28/22 Nitroglycerin Sl Tabs [Nitrostat] 0.4 mg SL Q5M PRN 30 Days #25 tab 06/28/22 Verapamil Sr [Isoptin Sr] 120 mg PO BID 30 Days #60 tab 06/28/22 Acetaminophen Tab [Tylenol] 650 mg PO Q6HR PRN tab 07/29/22 Pantoprazole [Protonix] 40 mg PO BID 15 Days #30 tab 08/11/22 Nitroglycerin Sl Tabs [Nitrostat] 0.4 mg SUBLINGUAL Q5M PRN #25 tab 08/13/22 Allergies Allergy/AdvReac Type Severity Reaction Status Date / Time levofloxacin [From Levaquin] AdvReac Nausea & Verified 08/13/22 01:30 Vomiting Review of Systems ROS Statement: Those systems with pertinent positive or pertinent negative responses have been documented in the HPI. ROS Other: All systems not noted in ROS Statement are negative. Past Medical History Past Medical History: Coronary Artery Disease (CAD), Chest Pain / Angina, COPD, Hyperlipidemia, Hypertension, Myocardial Infarction ([place]) Additional Past Medical History / Comment(s): Pt states he has hx of 3 respiratory arrests and was vented, generalized arthritis, Last Myocardial Infarction Date:: History of Any Multi-Drug Resistant Organisms: None Reported Past Surgical History: Adenoidectomy, Heart Catheterization With Stent, Hernia Repair, Joint Replacement, Orthopedic Surgery, Tonsillectomy Additional Past Surgical History / Comment(s): R inguinal hernia repair, L rotator cuff repair, bialteral total knee arthroplasties, R shoulder spur removal, teeth extracted, colonoscopy-normal. third hernia repair, left side, stents x2 2020, stents x1 11/2021 Past Anesthesia/Blood Transfusion Reactions: No Reported Reaction Date of Last Stent Placement:: 2021 Past Psychological History: No Psychological Hx Reported Smoking Status: Former smoker Past Alcohol Use History: None Reported Past Drug Use History: None Reported - Past Family History Father Family Medical History: Cancer Additional Family Medical History / Comment(s): Father of lung cancer at the age of 62. He was a smoker. Mother Family Medical History: Cancer, Diabetes Mellitus, Hypertension Additional Family Medical History / Comment(s): Mother at age 78 from brainstem cancer. Brother(s) Additional Family Medical History / Comment(s): Patient's 1 brother with history of AAA. Patient has 4 sisters and he does not know any of their medical history. Patient's 1 son and 1 daughter living. He had one daughter that at 7 weeks old from a congenital heart. General Exam Limitations: no limitations General appearance: alert, in distress (In moderate distress secondary to chest pain) Head exam: Present: atraumatic, normocephalic, normal inspection Eye exam: Present: normal appearance, PERRL Pupils: Present: normal accommodation ENT exam: Present: normal exam, normal oropharynx, mucous membranes moist Neck exam: Present: normal inspection, full ROM Respiratory exam: Present: normal lung sounds bilaterally Cardiovascular Exam: Present: regular rate, normal rhythm, normal heart sounds GI/Abdominal exam: Present: soft, normal bowel sounds Extremities exam: Present: normal inspection, full ROM Back exam: Present: normal inspection, full ROM Neurological exam: Present: alert, oriented X3, CN II-XII intact Psychiatric exam: Present: normal affect, normal mood Skin exam: Present: warm, dry Course Vital Signs 08/13/22 01:27 Temperature 98.6 F Pulse Rate 74 Respiratory 19 Rate Blood Pressure 115/74 O2 Sat by Pulse 98 Oximetry EKG Findings - EKG Comments: EKG Findings:: An EKG was obtained and was interpreted by myself showing a rate of 64, WA interval 169, QRS duration of 93 and QTC of 402. This EKG showed a normal sinus rhythm with no ST segment elevation or depression noted. Medical Decision Making - Medical Decision Making Was pt. sent in by a medical professional or institution (, PA, ACCOUNTANT SUPERVISOR, urgent care, hospital, or retirement...) When possible be specific @ -No Did you speak to anyone other than the patient for history (EMS, parent, family, police, friend...)? What history was obtained from this source @ -No Did you review nursing and triage notes (agree or disagree)? Why? @ -I reviewed and agree with nursing and triage notes Were old charts reviewed (outside hosp., previous admission, EMS record, old EKG, old radiological studies, urgent care reports/EKG's, retirement records)? Report findings @ -Yes, old admission 2 days ago was reviewed and the normal stress test was reviewed as well. Differential Diagnosis (chest pain, altered mental status, abdominal pain women, abdominal pain men, vaginal bleeding, weakness, fever, dyspnea, syncope, headache, dizziness, GI bleed, back pain, seizure, CVA, palpatations, mental health)? @ -ACS, aortic dissection, chest wall muscle strain EKG interpreted by me (3pts min.). @ -As above X-rays interpreted by me (1pt min.). @ -None done CT interpreted by me (1pt min.). @ -CTA of the chest, abdomen and pelvis was obtained and was interpreted by myself showing a mildly ectatic ascending thoracic aorta measuring 4 cm. There was no dissection. There is erythematous change with no acute abnormalities the lungs. U/S interpreted by me (1pt. min.). @ -None done What testing was considered but not performed or refused? (CT, X-rays, U/S, labs)? Why? @ -None What meds were considered but not given or refused? Why? @ -None Did you discuss the management of the patient with other professionals (pro fessionals i.e. , PA, ACCOUNTANT SUPERVISOR, lab, RT, psych nurse, social and human services assistant, lawyers, teacher, defence force senior officer, field nurse case manager)? Give summary @ -No Was smoking cessation discussed for >3mins.? @ -Yes Was critical care preformed (if so, how long)? @ -No Were there social determinants of health that impacted care today? How? (Homelessness, low income, unemployed, alcoholism, drug addiction, transport ation, low edu. Level, literacy, decrease access to med. care, [facility], rehab)? @ -No Was there de-escalation of care discussed even if they declined (Discuss DNR or withdrawal of care, Hospice)? DNR status @ -No What co-morbidities impacted this encounter? (DM, HTN, Smoking, COPD, CAD, Cancer, CVA, ARF, Chemo, Hep., AIDS, mental health diagnosis, sleep apnea, morbid obesity)? @ -Hypertension Was patient admitted / discharged? Hospital course, mention meds given and route, prescriptions, significant lab abnormalities, going to OR and other pertinent info. @ -The patient was seen and evaluated emergency department. Physical exam, the patient had moderate distress secondary to chest pain on arrival. The patient had received 3 sublingual nitroglycerin tablets. The patient had continued pain and distress on arrival however the nitroglycerin did initially help his pain. Laboratory workup was obtained and was within normal limits. Due to the nature the patient's chest pain radiating to his back and moderate distress, a CTA of the chest, abdomen and pelvis was obtained to rule out a dissection. All workup was negative. The patient was admitted 2 days ago and had a negative stress test. Because of this, the patient will not be placed in observation at this time and will instead be discharged back home. The patient did state that he was out of the subungual nitro glycerin tablets and he did receive a refill that was sent to the pharmacy for this. The patient was advised report back to the emergency department if he had worsening pain or complaints and follow-up with his tacker elastic band for further workup and evaluation. The patient was agreeable to this and all his questions were answered. The patient was discharged home in stable condition. Undiagnosed new problem with uncertain prognosis? @ -No Drug Therapy requiring intensive monitoring for toxicity (Heparin, Nitro, Insulin, Cardizem)? @ -No Were any procedures done? @ -No Diagnosis/symptom? @ -Chest pain, NOS Acute, or Chronic, or Acute on Chronic? @ -Acute on chronic Uncomplicated (without systemic symptoms) or Complicated (systemic symptoms)? @ -Uncomplicated Side effects of treatment? @ -No Exacerbation, Progression, or Severe Exacerbation? @ -No Poses a threat to life or bodily function? How? (Chest pain, [place], [place], pneumonia, PE, COPD, DKA, ARF, appy, cholecystitis, CVA, Diverticulitis, Homicidal, Suicidal, threat to staff... and all critical care pts) @ -No - Lab Data Result diagrams: 08/13/22 01:34 08/13/22 01:34 Lab Results 08/13/22 08/13/22 08/13/22 Range/Units 01:34 01:34 01:34 WBC 9.2 (3.8-10.6) k/uL RBC 4.49 (4.30-5.90) m/uL Hgb 14.0 (13.0-17.5) gm/dL Hct 40.2 (39.0-53.0) % MCV 89.7 (80.0-100.0) fL MCH 31.1 (25.0-35.0) pg MCHC 34.7 (31.0-37.0) g/dL RDW 12.9 (11.5-15.5) % Plt Count 198 (150-450) k/uL MPV 8.2 Neutrophils % 62 % Lymphocytes % 28 % Monocytes % 6 % Eosinophils % 3 % Basophils % 0 % Neutrophils # 5.7 (1.3-7.7) k/uL Lymphocytes # 2.5 (1.0-4.8) k/uL Monocytes # 0.5 (0-1.0) k/uL Eosinophils # 0.3 (0-0.7) k/uL Basophils # 0.0 (0-0.2) k/uL PT 9.8 (9.0-12.0) sec INR 0.9 (<1.2) APTT 23.9 (22.0-30.0) sec Sodium 137 (137-145) mmol/L Potassium 4.0 (3.5-5.1) mmol/L Chloride 104 (98-107) mmol/L Carbon Dioxide 22 (22-30) mmol/L Anion Gap 11 mmol/L BUN 20 (9-20) mg/dL Creatinine 0.90 (0.66-1.25) mg/dL Est GFR (CKD-EPI)AfAm >90 (>60 ml/min/1.73 sqM) Est GFR (CKD-EPI)NonAf >90 (>60 ml/min/1.73 sqM) Glucose 95 (74-99) mg/dL Calcium 8.6 (8.4-10.2) mg/dL Magnesium 2.2 (1.6-2.3) mg/dL Total Bilirubin 0.5 (0.2-1.3) mg/dL AST 27 (17-59) U/L ALT 32 (4-49) U/L Alkaline Phosphatase 97 (38-126) U/L Troponin I (0.000-0.034) ng/mL Total Protein 6.2 L (6.3-8.2) g/dL Albumin 3.7 (3.5-5.0) g/dL 08/13/22 Range/Units 01:34 WBC (3.8-10.6) k/uL RBC (4.30-5.90) m/uL Hgb (13.0-17.5) gm/dL Hct (39.0-53.0) % MCV (80.0-100.0) fL MCH (25.0-35.0) pg MCHC (31.0-37.0) g/dL RDW (11.5-15.5) % Plt Count (150-450) k/uL MPV Neutrophils % % Lymphocytes % % Monocytes % % Eosinophils % % Basophils % % Neutrophils # (1.3-7.7) k/uL Lymphocytes # (1.0-4.8) k/uL Monocytes # (0-1.0) k/uL Eosinophils # (0-0.7) k/uL Basophils # (0-0.2) k/uL PT (9.0-12.0) sec INR (<1.2) APTT (22.0-30.0) sec Sodium (137-145) mmol/L Potassium (3.5-5.1) mmol/L Chloride (98-107) mmol/L Carbon Dioxide (22-30) mmol/L Anion Gap mmol/L BUN (9-20) mg/dL Creatinine (0.66-1.25) mg/dL Est GFR (CKD-EPI)AfAm (>60 ml/min/1.73 sqM) Est GFR (CKD-EPI)NonAf (>60 ml/min/1.73 sqM) Glucose (74-99) mg/dL Calcium (8.4-10.2) mg/dL Magnesium (1.6-2.3) mg/dL Total Bilirubin (0.2-1.3) mg/dL AST (17-59) U/L ALT (4-49) U/L Alkaline Phosphatase (38-126) U/L Troponin I 0.028 (0.000-0.034) ng/mL Total Protein (6.3-8.2) g/dL Albumin (3.5-5.0) g/dL Disposition Clinical Impression: Chest pain Disposition: HOME SELF-CARE Condition: Stable Instructions (If sedation given, give patient instructions): Chest Pain (ED) Prescriptions: Nitroglycerin Sl Tabs [Nitrostat] 0.4 mg SUBLINGUAL Q5M PRN #25 tab PRN Reason: Chest Pain Is patient prescribed a controlled substance at d/c from ED?: No Referrals: Ava Erwin NPC [Primary Care Provider] - 1-2 days Time of Disposition: 04:50
--- NOTE | 2022-08-13 03:51 | CT ---
EXAM: CT Angiography Chest With Intravenous Contrast CLINICAL HISTORY: ITS.REASON CT Reason: CP r/o dissection TECHNIQUE: Axial computed tomographic angiography images of the chest with intravenous contrast. CTDI is 15.192 mGy and DLP is 770 mGy-cm. This CT exam was performed using one or more of the following dose reduction techniques: automated exposure control, adjustment of the mA and/or kV according to patient size, and/or use of iterative reconstruction technique. MIP reconstructed images were created and reviewed. COMPARISON: No relevant prior studies available. FINDINGS: Pulmonary arteries: No pulmonary embolism. Aorta: Mildly ectatic ascending thoracic aorta measuring 4 cm. No dissection. Lungs: Emphysematous changes. No consolidation. No interstitial edema. Pleural space: Unremarkable. Heart: Moderate coronary artery calcifications. Bones/joints: No acute fracture. Soft tissues: Unremarkable. Lymph nodes: Unremarkable. IMPRESSION: 1. Mildly ectatic ascending thoracic aorta measuring 4 cm. No dissection. 2. Emphysematous changes. No acute abnormality in the lungs. EXAM: CT Angiography Abdomen and Pelvis With Intravenous Contrast CLINICAL HISTORY: ITS.REASON CT Reason: CP r/o dissection TECHNIQUE: Axial computed tomographic angiography images of the abdomen and pelvis with intravenous contrast. CTDI is 15.192 mGy and DLP is 770 mGy-cm. This CT exam was performed using one or more of the following dose reduction techniques: automated exposure control, adjustment of the mA and/or kV according to patient size, and/or use of iterative reconstruction technique. MIP reconstructed images were created and reviewed. COMPARISON: No relevant prior studies available. FINDINGS: VASCULATURE: Aorta: Abdominal aorta measures up to 2.8 cm. No dissection. Mild atheromatous plaque. No flow limiting stenosis. Celiac trunk and mesenteric arteries: No acute findings. No occlusion or significant stenosis. Renal arteries: No acute findings. No occlusion or significant stenosis. Iliac arteries: Plaque present within the common, internal, and external iliac arteries without high-grade stenosis or dissection. Lung bases: Unremarkable. No mass. No consolidation. ABDOMEN: Liver: Unremarkable. No mass. Gallbladder and bile ducts: Unremarkable. No calcified stones. No ductal dilation. Pancreas: Unremarkable. No ductal dilation. No mass. Spleen: Unremarkable. No splenomegaly. Adrenals: Unremarkable. No mass. Kidneys and ureters: Unremarkable. No hydronephrosis. No solid mass. Stomach and bowel: Unremarkable. No obstruction. No mucosal thickening. PELVIS: Appendix: No findings to suggest acute appendicitis. Bladder: Unremarkable. No mass. Reproductive: Unremarkable as visualized. ABDOMEN and PELVIS: Intraperitoneal space: Unremarkable. No significant fluid collection. No free air. Bones/joints: No acute fracture. No dislocation. Soft tissues: Unremarkable. Lymph nodes: Unremarkable. No enlarged lymph nodes. IMPRESSION: No acute abnormality within the abdomen or pelvis.
[2022-08-13 05:39] VITALS: BP 105/60; PULSE 75; RESP 18
== END 2022-08-13 05:39 | disposition home or self-care (01) ==
LOC: EC 01:23
DX: R07.9 Chest pain, unspecified (principal); I25.10 Atherosclerotic heart disease of native coronary artery without angina pectoris; J44.9 Chronic obstructive pulmonary disease, unspecified; E78.5 Hyperlipidemia, unspecified; I10 Essential (primary) hypertension; I25.2 Old myocardial infarction; K21.9 Gastro-esophageal reflux disease without esophagitis; Z87.891 Personal history of nicotine dependence; Z88.1 Allergy status to other antibiotic agents; Z79.82 Long term (current) use of aspirin; Z79.899 Other long term (current) drug therapy
CPT/HCPCS: 36415; 93005; 80053; 83735; 84484; 85025; 85610; 85730; 71275; 74174; 99285; 96374; 96375; J2270; J2405; Q9967

== ENCOUNTER 2022-09-02 15:09 | Emergency (ER) | payer MEDICARE, OTHER ==
[2022-09-02] MEDS ORDERED: ORPHENADRINE 30 MG/ML 2 ML VIAL IM STA (16:20)
[2022-09-02] MEDS ORDERED: KETOROLAC 15 MG/ML 1 ML VIAL IM STA (16:20)
--- NOTE | 2022-09-02 16:25 | ED ---
Back Pain [facility] - General Chief Complaint: Back Pain/Injury Stated Complaint: Back Pain Time Seen by Provider: 09/02/22 16:00 Source: patient, RN notes reviewed, old records reviewed Limitations: no limitations - History of Present Illness Initial Comments: Nontoxic-appearing 61-year-old male presents to the emergency room complaining of left lower back pain. Patient states that his left knee gave out and he fell onto his left side last night at 9 PM. Has been able to ambulate but is now having muscle spasms. Did take Toradol at noon today with no relief. Has been able to ambulate. Denies any other injuries. No bowel or bladder incontinence. MD Complaint: back pain (left lumbar paraspinal) -: days(s) (1) Similar Symptoms Previously: Yes (years ago) Place: home Severity scale (1-10): 8 Improves With: immobilization Worsens With: movement Context: other (left knee gave out and fell onto left side) Associated Symptoms: denies other symptoms Treatments Prior to Arrival: other (toradol at 1200) - Related Data Home Medications Medication Instructions Recorded Confirmed Montelukast [Singulair] 10 mg PO HS 11/23/20 08/11/22 Atorvastatin Calcium [Lipitor] 80 mg PO HS 03/25/21 08/11/22 Albuterol Nebulized [Ventolin 2.5 mg INHALATION RT-Q4H PRN 08/20/21 08/11/22 Nebulized] Albuterol Sulfate [Proair Hfa] 2 puff INHALATION RT-Q4H PRN 08/20/21 08/11/22 Aspirin EC [Ecotrin Low Dose] 81 mg PO DAILY 12/13/21 08/11/22 Famotidine [Pepcid] 20 mg PO BID 12/13/21 08/11/22 predniSONE See Taper PO DIRECTED 08/11/22 08/11/22 Previous Rx's Medication Instructions Recorded Clopidogrel [Plavix] 75 mg PO DAILY #30 tab 11/02/20 Budesonide [Pulmicort] 1 mg INHALATION RT-BID ml 03/31/21 Ipratropium-Albuterol Nebulize 3 ml INHALATION RT-Q4H PRN ml 03/31/21 [Duoneb 0.5 mg-3 mg/3 ml Soln] Isosorbide Mononitrate ER [Imdur] 30 mg PO DAILY 30 Days #30 tab 06/28/22 Nitroglycerin Sl Tabs [Nitrostat] 0.4 mg SL Q5M PRN 30 Days #25 tab 06/28/22 Verapamil Sr [Isoptin Sr] 120 mg PO BID 30 Days #60 tab 06/28/22 Acetaminophen Tab [Tylenol] 650 mg PO Q6HR PRN tab 07/29/22 Pantoprazole [Protonix] 40 mg PO BID 15 Days #30 tab 08/11/22 Nitroglycerin Sl Tabs [Nitrostat] 0.4 mg SUBLINGUAL Q5M PRN #25 tab 08/13/22 Cyclobenzaprine [Flexeril] 10 mg PO TID PRN #15 tab 09/02/22 Ibuprofen [Motrin] 600 mg PO Q8HR PRN #30 tab 09/02/22 Allergies Allergy/AdvReac Type Severity Reaction Status Date / Time levofloxacin [From Levaquin] AdvReac Nausea & Verified 09/02/22 15:40 Vomiting Review of Systems ROS Statement: Those systems with pertinent positive or pertinent negative responses have been documented in the HPI. ROS Other: All systems not noted in ROS Statement are negative. Past Medical History Past Medical History: Coronary Artery Disease (CAD), Chest Pain / Angina, COPD, Hyperlipidemia, Hypertension, Myocardial Infarction ([place]) Additional Past Medical History / Comment(s): Pt states he has hx of 3 respiratory arrests and was vented, generalized arthritis, Last Myocardial Infarction Date:: History of Any Multi-Drug Resistant Organisms: None Reported Past Surgical History: Adenoidectomy, Heart Catheterization With Stent, Hernia Repair, Joint Replacement, Orthopedic Surgery, Tonsillectomy Additional Past Surgical History / Comment(s): R inguinal hernia repair, L rotator cuff repair, bialteral total knee arthroplasties, R shoulder spur removal, teeth extracted, colonoscopy-normal. third hernia repair, left side, stents x2 2020, stents x1 11/2021 Past Anesthesia/Blood Transfusion Reactions: No Reported Reaction Date of Last Stent Placement:: 2021 Past Psychological History: No Psychological Hx Reported Smoking Status: Former smoker Past Alcohol Use History: None Reported Past Drug Use History: None Reported - Past Family History Father Family Medical History: Cancer Additional Family Medical History / Comment(s): Father of lung cancer at the age of 62. He was a smoker. Mother Family Medical History: Cancer, Diabetes Mellitus, Hypertension Additional Family Medical History / Comment(s): Mother at age 78 from brainstem cancer. Brother(s) Additional Family Medical History / Comment(s): Patient's 1 brother with history of AAA. Patient has 4 sisters and he does not know any of their medical history. Patient's 1 son and 1 daughter living. He had one daughter that at 7 weeks old from a congenital heart. General Exam Limitations: no limitations General appearance: alert, in no apparent distress Head exam: Present: atraumatic Eye exam: Present: normal appearance. Absent: scleral icterus, conjunctival injection, periorbital swelling Neck exam: Present: full ROM. Absent: meningismus Respiratory exam: Absent: respiratory distress, accessory muscle use Cardiovascular Exam: Present: regular rate GI/Abdominal exam: Present: soft Extremities exam: Present: full ROM, normal capillary refill Back exam: Present: normal inspection, tenderness, muscle spasm (Left paraspinal lumbar), paraspinal tenderness. Absent: CVA tenderness (R), vertebral tenderness Neurological exam: Present: alert, oriented X3 Psychiatric exam: Present: normal affect, normal mood Skin exam: Present: warm, dry, normal color. Absent: cyanosis, diaphoretic, petechiae, pallor Course Vital Signs 09/02/22 15:37 Temperature 98.2 F Pulse Rate 74 Respiratory 20 Rate Blood Pressure 135/73 O2 Sat by Pulse 96 Oximetry Medical Decision Making - Medical Decision Making Was pt. sent in by a medical professional or institution (, PA, SEMICONDUCTOR PROCESSOR, urgent care, hospital, or [place] health care facility...) When possible be specific @ -No Did you speak to anyone other than the patient for history (EMS, parent, family, police, friend...)? What history was obtained from this source @ -No Did you review nursing and triage notes (agree or disagree)? Why? @ -I reviewed and agree with nursing and triage notes Were old charts reviewed (outside hosp., previous admission, EMS record, old EKG, old radiological studies, urgent care reports/EKG's, [place] health care facility records)? Report findings @ -No old charts were reviewed Differential Diagnosis (chest pain, altered mental status, abdominal pain women, abdominal pain men, vaginal bleeding, weakness, fever, dyspnea, syncope, headache, dizziness, GI bleed, back pain, seizure, CVA, palpatations, mental health, musculoskeletal)? @ -Muscle spasm, musculoskeletal pain, pelvic fracture, hip fracture, dislocation EKG interpreted by me (3pts min.). @ -n/a X-rays interpreted by me (1pt min.). @ -None done CT interpreted by me (1pt min.). @ -None done U/S interpreted by me (1pt. min.). @ -None done What testing was considered but not performed or refused? (CT, X-rays, U/S, labs)? Why? @ -X-ray was considered however patient has no pain with movement of the left hip or lower leg. Pelvis is stable. No vertebral pain with palpation. He is ambulatory. What meds were considered but not given or refused? Why? @ -None Did you discuss the management of the patient with other professionals (professionals i.e. , PA, SEMICONDUCTOR PROCESSOR, lab, RT, psych nurse, manager social media, sponge maker, teacher, geographic area intelligence officer, director case)? Give summary @ -No Was smoking cessation discussed for >3mins.? @ -No Was critical care preformed (if so, how long)? @ -No Were there social determinants of health that impacted care today? How? (Homelessness, low income, unemployed, alcoholism, drug addiction, transportation, low edu. Level, literacy, decrease access to med. care, correction, rehab)? @ -No Was there de-escalation of care discussed even if they declined (Discuss DNR or withdrawal of care, Hospice)? DNR status @ -No What co-morbidities impacted this encounter? (DM, HTN, Smoking, COPD, CAD, Cancer, CVA, ARF, Chemo, Hep., AIDS, mental health diagnosis, sleep apnea, morbid obesity)? @ - Patient has history of coronary artery disease, angina, COPD, hypertension, hyperlipidemia Was patient admitted / discharged? Hospital course, mention meds given and route, prescriptions, significant lab abnormalities, going to OR and other pertinent info. @ -Discharged. 61-year-old male presents complaining of left lower back "muscle spasms". Patient states that his left knee gave out again causing him to fell onto his left side last night at 9 PM. Has been able to ambulate but is now having muscle spasms. Did take Toradol at noon today with no relief. Denies any other injuries. No bowel or bladder incontinence. No concerning red flags symptoms. Vital signs stable. He was given Norflex and Toradol with improvement in his symptoms. He was given a prescription for Flexeril states that he has Toradol at home. He was offered a Lidoderm patch and declined. Directed to use [id number] topical pain relievers as needed. He is agreeable to this plan of care. Case discussed with Dr. Bran. Undiagnosed new problem with uncertain prognosis? @ -No Drug Therapy requiring intensive monitoring for toxicity (Heparin, Nitro, Insulin, Cardizem)? @ -No Were any procedures done? @ -No Diagnosis/symptom? @ -Back muscle spasms, acute back pain Acute, or Chronic, or Acute on Chronic? @ -Acute Uncomplicated (without systemic symptoms) or Complicated (systemic symptoms)? @ -Uncomplicated Side effects of treatment? @ -No Exacerbation, Progression, or Severe Exacerbation? @ -No Poses a threat to life or bodily function? How? (Chest pain, [place], [place], pneumonia, PE, COPD, DKA, ARF, appy, cholecystitis, CVA, Diverticulitis, Homicidal, Suicidal, threat to staff... and all critical care pts) @ -No Disposition Clinical Impression: Back pain, Muscle spasm of back Disposition: HOME SELF-CARE Condition: Good Instructions (If sedation given, give patient instructions): Acute Low Back Pain (ED), Muscle Spasm (ED) Additional Instructions: I recommend taking Tylenol and/or Motrin as needed for pain. Do not take Motrin if you are taking Toradol or steroids. You can also use Flexeril for muscle spasms as needed. Topical pain relievers like BenGay, Mcroberts balm and icy hot may also be beneficial. Follow-up with the primary care doctor and return to the emergency room with any new or concerning symptoms. Prescriptions: Cyclobenzaprine [Flexeril] 10 mg PO TID PRN #15 tab PRN Reason: Muscle Spasm Ibuprofen [Motrin] 600 mg PO Q8HR PRN #30 tab PRN Reason: Pain Is patient prescribed a controlled substance at d/c from ED?: No Referrals: Nickolas French MD [Primary Care Provider] - 1-2 days Time of Disposition: 17:20
[2022-09-02 17:33] VITALS: BP 130/91; PULSE 72; RESP 18; TEMP 98
== END 2022-09-02 18:24 | disposition home or self-care (01) ==
LOC: EC 15:09
DX: M62.830 Muscle spasm of back (principal); I25.10 Atherosclerotic heart disease of native coronary artery without angina pectoris; J44.9 Chronic obstructive pulmonary disease, unspecified; E78.5 Hyperlipidemia, unspecified; I10 Essential (primary) hypertension; I25.2 Old myocardial infarction; Z87.891 Personal history of nicotine dependence; Z88.1 Allergy status to other antibiotic agents; Z79.82 Long term (current) use of aspirin; Z79.899 Other long term (current) drug therapy
CPT/HCPCS: 99283; 96372 ×2; J2360; J1885

== ENCOUNTER 2022-10-09 12:10 | Emergency (ER) | payer MEDICARE, OTHER ==
[2022-10-09 12:23] VITALS: TEMP 97.8
[2022-10-09] MEDS ORDERED: DIPH,PERTUS(ACELL)TETVAC-LF 0.5 ML VIAL IM ONE (12:36)
[2022-10-09] MEDS ORDERED: LIDOCAINE 1% INJ 10MG/ML (30 ML VIAL-PF) SQ ONE (12:41)
--- NOTE | 2022-10-09 12:51 | ED ---
Wound/Laceration HPI - General Chief Complaint: Wound/Laceration Stated Complaint: R Pointer Finger put nail thru it, Blood Thinner Time Seen by Provider: 10/09/22 12:23 Source: patient, RN notes reviewed Mode of arrival: ambulatory Limitations: no limitations - History of Present Illness Initial Comments: This is a 61-year-old male who presents to the emergency department for a laceration to the right index finger. States that he was using a nail gun earlier, when he accidentally shot a nail through his finger. States that the nail went all the way through. Pain is under control. He has struggled to get the bleeding to stop, as he is on Plavix. Last tetanus vaccine was 8-10 years ago. - Related Data Home Medications Medication Instructions Recorded Confirmed Montelukast [Singulair] 10 mg PO HS 11/23/20 08/11/22 Atorvastatin Calcium [Lipitor] 80 mg PO HS 03/25/21 08/11/22 Albuterol Nebulized [Ventolin 2.5 mg INHALATION RT-Q4H PRN 08/20/21 08/11/22 Nebulized] Albuterol Sulfate [Proair Hfa] 2 puff INHALATION RT-Q4H PRN 08/20/21 08/11/22 Aspirin EC [Ecotrin Low Dose] 81 mg PO DAILY 12/13/21 08/11/22 Famotidine [Pepcid] 20 mg PO BID 12/13/21 08/11/22 predniSONE See Taper PO DIRECTED 08/11/22 08/11/22 Previous Rx's Medication Instructions Recorded Clopidogrel [Plavix] 75 mg PO DAILY #30 tab 11/02/20 Budesonide [Pulmicort] 1 mg INHALATION RT-BID ml 03/31/21 Ipratropium-Albuterol Nebulize 3 ml INHALATION RT-Q4H PRN ml 03/31/21 [Duoneb 0.5 mg-3 mg/3 ml Soln] Isosorbide Mononitrate ER [Imdur] 30 mg PO DAILY 30 Days #30 tab 06/28/22 Nitroglycerin Sl Tabs [Nitrostat] 0.4 mg SL Q5M PRN 30 Days #25 tab 06/28/22 Verapamil Sr [Isoptin Sr] 120 mg PO BID 30 Days #60 tab 06/28/22 Acetaminophen Tab [Tylenol] 650 mg PO Q6HR PRN tab 07/29/22 Pantoprazole [Protonix] 40 mg PO BID 15 Days #30 tab 08/11/22 Nitroglycerin Sl Tabs [Nitrostat] 0.4 mg SUBLINGUAL Q5M PRN #25 tab 08/13/22 Cyclobenzaprine [Flexeril] 10 mg PO TID PRN #15 tab 09/02/22 Ibuprofen [Motrin] 600 mg PO Q8HR PRN #30 tab 09/02/22 Allergies Allergy/AdvReac Type Severity Reaction Status Date / Time levofloxacin [From Levaquin] AdvReac Nausea & Verified 10/09/22 12:22 Vomiting Review of Systems ROS Statement: Those systems with pertinent positive or pertinent negative responses have been documented in the HPI. ROS Other: All systems not noted in ROS Statement are negative. Past Medical History Past Medical History: Coronary Artery Disease (CAD), Chest Pain / Angina, COPD, Hyperlipidemia, Hypertension, Myocardial Infarction ([place]) Additional Past Medical History / Comment(s): Pt states he has hx of 3 respiratory arrests and was vented, generalized arthritis, Last Myocardial Infarction Date:: History of Any Multi-Drug Resistant Organisms: None Reported Past Surgical History: Adenoidectomy, Heart Catheterization With Stent, Hernia Repair, Joint Replacement, Orthopedic Surgery, Tonsillectomy Additional Past Surgical History / Comment(s): R inguinal hernia repair, L rotator cuff repair, bialteral total knee arthroplasties, R shoulder spur removal, teeth extracted, colonoscopy-normal. third hernia repair, left side, stents x2 2020, stents x1 11/2021 Past Anesthesia/Blood Transfusion Reactions: No Reported Reaction Date of Last Stent Placement:: 2021 Past Psychological History: No Psychological Hx Reported Smoking Status: Former smoker Past Alcohol Use History: None Reported Past Drug Use History: None Reported - Past Family History Father Family Medical History: Cancer Additional Family Medical History / Comment(s): Father of lung cancer at the age of 62. He was a smoker. Mother Family Medical History: Cancer, Diabetes Mellitus, Hypertension Additional Family Medical History / Comment(s): Mother at age 78 from brainstem cancer. Brother(s) Additional Family Medical History / Comment(s): Patient's 1 brother with history of AAA. Patient has 4 sisters and he does not know any of their medical history. Patient's 1 son and 1 daughter living. He had one daughter that at 7 weeks old from a congenital heart. General Exam Limitations: no limitations General appearance: alert, in no apparent distress Head exam: Present: atraumatic, normocephalic, normal inspection Respiratory exam: Present: normal lung sounds bilaterally. Absent: respiratory distress, wheezes, rales, rhonchi, stridor Cardiovascular Exam: Present: regular rate, normal rhythm, normal heart sounds. Absent: systolic murmur, diastolic murmur, rubs, gallop, clicks Neurological exam: Present: alert, oriented X3, CN II-XII intact Psychiatric exam: Present: normal affect, normal mood Skin exam: Present: other (3cm laceration to the medial aspect of the right index finger with active bleeding and visible subcutaneous tissue. 1cm laceration to the lateral aspect with no active bleeding.) Course Vital Signs 10/09/22 10/09/22 12:19 13:48 Temperature 97.8 F 97.8 F Pulse Rate 91 74 Respiratory 18 16 Rate Blood Pressure 131/84 145/80 O2 Sat by Pulse 97 97 Oximetry Procedures - Laceration Laceration #1 Consent Obtained: verbal consent Indication: laceration Site: other (right index finger) Size (cm): 3 Description: linear Depth: simple, single layer Anesthetic Used: lidocaine 1% Anesthesia Technique: local infiltration Amount (mls): 3 Pre-repair: irrigated extensively Type of Sutures: nylon Size of Sutures: 5-0 Number of Sutures: 3 Technique: simple, interrupted Medical Decision Making - Medical Decision Making This is a 61-year-old male who presents to the emergency department for a laceration. Was pt. sent in by a medical professional or institution? @ -No Did you speak to anyone other than the patient for history? @ -No Did you review nursing and triage notes? @ -Yes, and I agree, it is accurate with regards to the patient's symptoms. Were old charts reviewed? @ -No Differential Diagnosis? @ -Not obtained EKG interpreted by me (3pts min.)? @ -Not obtained X-rays interpreted by me (1pt min.)? @ -X-ray of the right index finger obtained. My interpretation identifies no acute fractures or residual foreign bodies. CT interpreted by me (1pt min.)? @ -Not obtained U/S interpreted by me (1pt. min.)? @ -Not obtained What testing was considered but not performed? (CT, X-rays, U/S, labs)? Why? @ -None What meds were considered but not given? Why? @ -None Did you discuss the management of the patient with other professionals? @ -No Did you reconcile home meds? @ -No Was smoking cessation discussed for >3mins.? @ -No Was critical care preformed (if so, how long)? @ -No Were there social determinants of health that impacted care today? How? (Homelessness, low income, unemployed, alcoholism, drug addiction, transportation, low edu. Level, literacy, decrease access to med. care, intermediate, r ehab)? @ -No Was there de-escalation of care discussed even if they declined? (Discuss DNR or withdrawal of care, Hospice)? @ -No What co-morbidities impacted this encounter? (DM, HTN, Smoking, COPD, CAD, Cancer, CVA, Hep., AIDS, mental health diagnosis, sleep apnea, morbid obesity)? @ -CAD - on plavix Was patient admitted / discharged? @ -Discharged. X-ray obtained revealing no fractures or residual foreign bodies. His finger was soaked in sterile water with betatide to thoroughly cleanse the area. The medial laceration was repaired with sutures. The lateral laceration had already started healing well and no repair was required. Tetanus vaccine was updated. He is instructed to return in 7-10 days for suture removal. Undiagnosed new problem with uncertain prognosis? @ -None Drug Therapy requiring intensive monitoring for toxicity (Heparin, Nitro, Insulin, Cardizem)? @ -None Were any procedures done? @ -Yes, sutures Diagnosis/symptom? @ -Laceration Acute, or Chronic, or Acute on Chronic? @ -Acute Uncomplicated (without systemic symptoms) or Complicated (systemic symptoms)? @ -Uncomplicated Side effects of treatment? @ -None Exacerbation, Progression, or Severe Exacerbation] @ -Not applicable Poses a threat to life or bodily function? @ -No Return precautions reviewed in depth, the patient is instructed to return to the emergency department with any new, worsening, or concerning symptoms. Patient verbalized understanding. This case was discussed in detail with the attending ED physician, Dr. Merrill. Presentation, findings, and treatment plan discussed in detail as well. - Radiology Data Radiology results: report reviewed, image reviewed Disposition Clinical Impression: Laceration Disposition: HOME SELF-CARE Instructions (If sedation given, give patient instructions): Care For Your Stitches (ED) Additional Instructions: Return to the emergency department with any new, worsening, or concerning symptoms and in 7-10 days for removal of the stitches. Follow up with your primary care provider in 1-2 days. Is patient prescribed a controlled substance at d/c from ED?: No Referrals: Ava Erwin NPC [Primary Care Provider] - 1-2 days
--- NOTE | 2022-10-09 12:51 | XR ---
EXAMINATION TYPE: XR finger RT DATE OF EXAM: 10/09/2022 COMPARISON: NONE HISTORY: Pain TECHNIQUE: Three views are submitted. FINDINGS: The osseous structures are intact. The joint spaces are preserved and there is no acute fracture or dislocation. No radio metallic foreign body. Soft tissue edema overlying the volar aspect distal pha lanx. IMPRESSION: 1. No definite acute fracture or dislocation if symptoms persist, follow-up study in 7 to 10 days wo uld be suggested
[2022-10-09 13:49] VITALS: BP 145/80; PULSE 74; RESP 16
== END 2022-10-09 13:52 | disposition home or self-care (01) ==
LOC: EC 12:10
DX: S61.210A Laceration without foreign body of right index finger without damage to nail, initial encounter (principal); I25.10 Atherosclerotic heart disease of native coronary artery without angina pectoris; J44.9 Chronic obstructive pulmonary disease, unspecified; E78.5 Hyperlipidemia, unspecified; I10 Essential (primary) hypertension; I25.2 Old myocardial infarction; Z87.891 Personal history of nicotine dependence; Z79.899 Other long term (current) drug therapy; Z79.82 Long term (current) use of aspirin; Z88.8 Allergy status to other drugs, medicaments and biological substances; Z23 Encounter for immunization; X58.XXXA Exposure to other specified factors, initial encounter
CPT/HCPCS: 73140; 90715; 99282; 90471; 12002; J2001

== ENCOUNTER → 2022-11-05 | Outpatient (CLI) | payer MEDICARE, OTHER ==
--- NOTE | 2022-11-05 08:43 | US ---
EXAMINATION TYPE: US abdomen comp/pelvis limited DATE OF EXAM: 11/05/2022 COMPARISON: CT 08/13/2022 CLINICAL INDICATION: Male, 62 years old with history of R10.31 RIGHT LOWER QUADRANT PAIN; Right sided pain, history of kidney stones EXAM MEASUREMENTS: Liver Length: 14.5 cm Gallbladder Wall: 0.2 cm CBD: 0.5 cm Spleen: 9.7 cm Right Kidney: 9.6 x 5.8 x 5.6 cm Left Kidney: 11.5 x 6.0 x 5.7 cm Pancreas: Obscured by bowel gas Liver: appears wnl Gallbladder: no evidence of stones CBD: wnl Spleen: wnl Right Kidney: no evidence of hydronephrosis Left Kidney: no evidence of hydronephrosis Upper IVC: wnl Abd Aorta: visualized portions appear wnl Bladder: appears wnl Bilateral Jets Seen yes Pancreas is obscured by overlying bowel gas. Liver appears unremarkable without focal lesion identifi ed. Gallbladder is unremarkable without evidence of wall thickening, cholelithiasis, or pericholecyst ic fluid. Common bile duct within normal limits. Spleen is unremarkable. No hydronephrosis, nephrolit hiasis, or solid mass involving both kidneys. Cortical medullary differentiation is maintained bilate rally. The visualized portions of the upper IVC and abdominal aorta are within normal limits. Urinary bladder is unremarkable with bilateral ureteral jets identified. IMPRESSION: Unremarkable ultrasound of the abdomen and pelvis.
== END | disposition home or self-care (01) ==
LOC: RADUSWWP 07:58
PROVIDERS: ATTEND Family Medicine
DX: R10.31 Right lower quadrant pain (principal); Z87.442 Personal history of urinary calculi
CPT/HCPCS: 76700; 76857

== ENCOUNTER → 2022-11-10 | Outpatient (CLI) | payer MEDICARE, OTHER ==
--- NOTE | 2022-11-10 12:08 | US ---
EXAMINATION TYPE: US carotid duplex BILAT DATE OF EXAM: 11/10/2022 COMPARISON: NONE CLINICAL INDICATION: Male, 62 years old with history of BROA; TECHNIQUE: Carotid duplex ultrasound examination. Indirect Doppler criteria was utilized. FINDINGS: EXAM MEASUREMENTS: RIGHT: Peak Systolic Velocity (PSV) cm/sec ----- Right CCA: 98.2 ----- Right ICA: 109.9 ----- Right ECA: 107 ICA/CCA ratio: 1.1 RIGHT: End Diastole cm/sec ----- Right CCA: 27 ----- Right ICA: 32.8 ----- Right ECA: 14 LEFT: Peak Systolic Velocity (PSV) cm/sec ----- Left CCA: 73.5 ----- Left ICA: 99.7 ----- Left ECA: 97.2 ICA/CCA ratio: 1.4 LEFT: End Diastole cm/sec ----- Left CCA: 27 ----- Left ICA: 40.1 ----- Left ECA: 12.9 VERTEBRALS (direction of flow): Right Vertebral: Antegrade Left Vertebral: Antegrade Rhythm: Normal CARE ASSOCIATE NOTES: No significant stenosis seen Mild atherosclerotic plaque in the bilateral carotid bulbs. IMPRESSION: No ultrasound evidence for hemodynamically significant stenosis of the bilateral internal carotid art eries. Criteria for Assigning % of Stenosis / Diameter reduction (Estimation based on the indirect measurements of the internal carotid artery velocities (ICA PSV). 1. Normal (no stenosis)=ICA PSV < 125 cm/s: ratio < 2.0: ICA EDV<40 cm/s. 2. Less than 50% stenosis=ICA PSV < 125 cm/s: ratio < 2.0: ICA EDV<40 cm/s. 3. 50 to 69% stenosis=ICA PSV of 125 to 230 cm/s: ration 2.0 ? 4.0: ICA EDV 40-100 cm/s. 4. Greater than 70% stenosis to near occlusion= ICA PSV > 230 cm/s: ratio > 4.0: ICA EDV > 100 cm/s. 5. Near occlusion= ICA PSV velocities may be low or undetectable: variable ratio and ICA EDV. 6. Total occlusion=unable to detect flow.
== END | disposition home or self-care (01) ==
LOC: RADUSWWP 10:39
PROVIDERS: ATTEND Ophthalmology
DX: H34.233 Retinal artery branch occlusion, bilateral (principal)
CPT/HCPCS: 93880

== ENCOUNTER 2022-11-13 14:25 | Observation (INO) | payer MEDICARE, OTHER ==
[2022-11-13 14:51] LABS: Basophils % (A) 0 %; Eosinophils # (A) 0.2 k/uL (0-0.7); Eosinophils % (A) 1 %; HGB 13.4 gm/dL (13.0-17.5); Lymphocytes # (A) 1.7 k/uL (1.0-4.8); Lymphocytes % (A) 14 %; MCH 31.4 pg (25.0-35.0); MCHC 35.4 g/dL (31.0-37.0); MCV 88.9 fL (80.0-100.0); Mean Platelet Volume 8.3; Monocytes # (A) 0.6 k/uL (0-1.0); Monocytes % (A) 5 %; Neutrophils # (A) 9.4 k/uL (1.3-7.7); Neutrophils % (A) 79 %; Platelet Count 172 k/uL (150-450); RBC 4.27 m/uL (4.30-5.90); RDW 12.7 % (11.5-15.5); WBC 11.9 k/uL (3.8-10.6)
[2022-11-13] MEDS ORDERED: SODIUM CHLORIDE 0.9% 1,000 ML IV ONE (14:53)
[2022-11-13 15:08] LABS: ALT 22 U/L (4-49); AST 24 U/L (17-59); African American GFR (CKD) >90 (>60 ml/min/1.73 sqM); Alkaline Phosphatase 125 U/L (38-126); Anion Gap 4 mmol/L; Blood Urea Nitrogen 14 mg/dL (9-20); Calcium 8.8 mg/dL (8.4-10.2); Carbon Dioxide 25 mmol/L (22-30); Chloride 105 mmol/L (98-107); Glucose 95 mg/dL (74-99); INR 0.9 (<1.2); Magnesium 2.3 mg/dL (1.6-2.3); Non-African American GFR(CKD) >90 (>60 ml/min/1.73 sqM); Partial Thromboplastin Time 24.2 sec (22.0-30.0); Potassium 3.7 mmol/L (3.5-5.1); Prothrombin Time 9.9 sec (9.0-12.0); Sodium 134 mmol/L (137-145); Total Bilirubin 0.7 mg/dL (0.2-1.3); Total Protein 6.5 g/dL (6.3-8.2)
--- NOTE | 2022-11-13 15:17 | XR ---
EXAMINATION TYPE: XR chest 2V DATE OF EXAM: 11/13/2022 COMPARISON: 10/14/2022 INDICATION: Syncope TECHNIQUE: Frontal and lateral views of the chest are obtained. FINDINGS: The heart size is normal. The pulmonary vasculature is normal. The lungs are clear. IMPRESSION: 1. No acute pulmonary process.
[2022-11-13] MEDS ORDERED: NITROGLYCERIN OINT 1 INCH/GM PACKET TOPICAL STA (15:27)
--- NOTE | 2022-11-13 15:51 | ED ---
General Adult HPI - General Chief complaint: Syncope Stated complaint: chest pain Time Seen by Provider: 11/13/22 14:35 Source: patient, EMS, RN notes reviewed Mode of arrival: EMS Limitations: no limitations - History of Present Illness Initial comments: 62-year-old male presents emergency department via EMS chief last syncopal episode. Patient states that he has been outside [facility] last 24 hours he states that he became very lightheaded, dizzy and passed out. Patient denies any head injury. Patient was complaining of chest pain was given nitro at home and by EMS and which this pain resolved. Patient states it cardiac stents placed one year ago. Patient does admit to mild shortness of breath. Denies any back pain, neck pain. - Related Data Home Medications Medication Instructions Recorded Confirmed Montelukast [Singulair] 10 mg PO HS 11/23/20 10/13/22 Atorvastatin Calcium [Lipitor] 80 mg PO HS 03/25/21 10/13/22 Albuterol Nebulized [Ventolin 2.5 mg INHALATION RT-Q4H PRN 08/20/21 10/13/22 Nebulized] Albuterol Sulfate [Proair Hfa] 2 puff INHALATION RT-Q4H PRN 08/20/21 10/13/22 Aspirin EC [Ecotrin Low Dose] 81 mg PO DAILY 12/13/21 10/13/22 Verapamil HCl [Verapamil ER] 120 mg PO DAILY 10/13/22 10/13/22 Previous Rx's Medication Instructions Recorded Clopidogrel [Plavix] 75 mg PO DAILY #30 tab 11/02/20 Budesonide [Pulmicort] 1 mg INHALATION RT-BID ml 03/31/21 Ipratropium-Albuterol Nebulize 3 ml INHALATION RT-Q4H PRN ml 03/31/21 [Duoneb 0.5 mg-3 mg/3 ml Soln] Nitroglycerin Sl Tabs [Nitrostat] 0.4 mg SUBLINGUAL Q5M PRN #25 tab 08/13/22 Acetaminophen Tab [Tylenol] 650 mg PO Q6HR PRN tab 10/14/22 Isosorbide Mononitrate ER [Imdur] 30 mg PO BID #60 tab 10/14/22 Pantoprazole [Protonix] 40 mg PO BID 30 Days #60 tab 07/19/23 lisinopriL [Zestril] 5 mg PO DAILY #30 tab 10/14/22 Allergies Allergy/AdvReac Type Severity Reaction Status Date / Time levofloxacin [From Levaquin] AdvReac Nausea & Verified 11/13/22 14:31 Vomiting Review of Systems ROS Statement: Those systems with pertinent positive or pertinent negative responses have been documented in the HPI. ROS Other: All systems not noted in ROS Statement are negative. Past Medical History Past Medical History: Coronary Artery Disease (CAD), Chest Pain / Angina, COPD, Hyperlipidemia, Hypertension, Myocardial Infarction (PA) Additional Past Medical History / Comment(s): Pt states he has hx of 3 respiratory arrests and was vented, generalized arthritis, Last Myocardial Infarction Date:: History of Any Multi-Drug Resistant Organisms: None Reported Past Surgical History: Adenoidectomy, Heart Catheterization With Stent, Hernia Repair, Joint Replacement, Orthopedic Surgery, Tonsillectomy Additional Past Surgical History / Comment(s): R inguinal hernia repair, L rotator cuff repair, bialteral total knee arthroplasties, R shoulder spur removal, teeth extracted, colonoscopy-normal. third hernia repair, left side, stents x2 2020, stents x1 11/2021 Past Anesthesia/Blood Transfusion Reactions: No Reported Reaction Date of Last Stent Placement:: 2021 Past Psychological History: No Psychological Hx Reported Smoking Status: Former smoker Past Alcohol Use History: None Reported Past Drug Use History: Marijuana - Past Family History Father Family Medical History: Cancer Additional Family Medical History / Comment(s): Father of lung cancer at the age of 62. He was a smoker. Mother Family Medical History: Cancer, Diabetes Mellitus, Hypertension Additional Family Medical History / Comment(s): Mother at age 78 from brainstem cancer. Brother(s) Additional Family Medical History / Comment(s): Patient's 1 brother with history of AAA. Patient has 4 sisters and he does not know any of their medical history. Patient's 1 son and 1 daughter living. He had one daughter that at 7 weeks old from a congenital heart. General Exam Limitations: no limitations General appearance: alert, in no apparent distress Head exam: Present: atraumatic, normocephalic, normal inspection Eye exam: Present: normal appearance, PERRL, EOMI. Absent: scleral icterus, conjunctival injection, periorbital swelling ENT exam: Present: normal exam, normal oropharynx, mucous membranes moist Neck exam: Present: normal inspection, full ROM. Absent: tenderness, meningismus, lymphadenopathy Respiratory exam: Present: wheezes. Absent: normal lung sounds bilaterally, respiratory distress, rales, rhonchi, stridor Cardiovascular Exam: Present: regular rate, normal rhythm, normal heart sounds. Absent: systolic murmur, diastolic murmur, rubs, gallop, clicks Neurological exam: Present: alert, oriented X3, CN II-XII intact Course Vital Signs 11/13/22 11/13/22 11/13/22 14:28 14:37 15:31 Temperature 98.5 F Pulse Rate 86 84 Pulse Rate [ 79 Tie Maker ] Respiratory 16 20 Rate Blood Pressure 112/84 125/93 O2 Sat by Pulse 93 L 99 Oximetry EKG Findings - EKG Comments: EKG Findings:: EKG performed at 15:24 sinus rhythm rate of 67 DE 184 QRS 84 QT/QTC 382/397 - EKG Results: EKG: interpreted by COLEEN Medical Decision Making - Medical Decision Making Was pt. sent in by a medical professional or institution (, PA, [facility], urgent care, hospital, or long term...) When possible be specific @ -No Did you speak to anyone other than the patient for history (EMS, parent, family, police, friend...)? What history was obtained from this source @ -EMS prehospital vitals, presentation and medication given Did you review nursing and triage notes (agree or disagree)? Why? @ -I reviewed and agree with nursing and triage notes Were old charts reviewed (outside hosp., previous admission, EMS record, old EKG, old radiological studies, urgent care reports/EKG's, long term records)? Report findings @ -Reviewed prior lymphocytes, cardiology evaluation Differential Diagnosis (chest pain, altered mental status, abdominal pain women, abdominal pain men, vaginal bleeding, weakness, fever, dyspnea, syncope, headache, dizziness, GI bleed, back pain, seizure, CVA, palpatations, mental health, musculoskeletal)? @ -Differential Syncope: Valvular disease, hypertrophic cardiomyopathy, pulmonary embolism, tamponade, tachycardia, bradycardia, PA, hypovolemia, hemorrhage, dissection, anemia, intracranial hemorrhage, seizure, hypoglycemia, carbon monoxide poisoning, this is not meant to be an all-inclusive list. EKG interpreted by me (3pts min.). @ -As above X-rays interpreted by me (1pt min.). @ -Chest x-ray shows no acute process CT interpreted by me (1pt min.). @ -None done U/S interpreted by me (1pt. min.). @ -None done What testing was considered but not performed or refused? (CT, X-rays, U/S, labs)? Why? @ -None What meds were considered but not given or refused? Why? @ -None Did you discuss the management of the patient with other professionals (professionals i.e. , PA, [facility], lab, RT, psych nurse, 7th grade social studies teacher, environmental marketing representative, teacher, attendance officer, complex case manager)? Give summary @ -Dr. Juárez for admission with cardiology evaluation Was smoking cessation discussed for >3mins.? @ -No Was critical care preformed (if so, how long)? @ -No Were there social determinants of health that impacted care today? How? (Homeles sness, low income, unemployed, alcoholism, drug addiction, transportation, low edu. Level, literacy, decrease access to med. care, halfway, rehab)? @ -No Was there de-escalation of care discussed even if they declined (Discuss DNR or withdrawal of care, Hospice)? DNR status @ -No What co-morbidities impacted this encounter? (DM, HTN, Smoking, COPD, CAD, Cancer, CVA, ARF, Chemo, Hep., AIDS, mental health diagnosis, sleep apnea, morbid obesity)? @ -[CAD Was patient admitted / discharged? Hospital course, mention meds given and route, prescriptions, significant lab abnormalities, going to OR and other pertinent info. @ -[Admitted patient will be admitted for syncopal episode, chest pain patient will require repeat troponin, cardiology evaluation. Undiagnosed new problem with uncertain prognosis? @ -No Drug Therapy requiring intensive monitoring for toxicity (Heparin, Nitro, Insulin, Cardizem)? @ -No Were any procedures done? @ -No Diagnosis/symptom? @ -Syncope, chest pain Acute, or Chronic, or Acute on Chronic? @ -Acute Uncomplicated (without systemic symptoms) or Complicated (systemic symptoms)? @ -Uncomplicated Side effects of treatment? @ -No Exacerbation, Progression, or Severe Exacerbation? @ -No Poses a threat to life or bodily function? How? (Chest pain, USA, PA, pneumonia, PE, COPD, DKA, ARF, appy, cholecystitis, CVA, Diverticulitis, Homicidal, Suicidal, threat to staff... and all critical care pts) @ -yes - Lab Data Result diagrams: 11/13/22 14:41 11/13/22 14:41 Lab Results 11/13/22 11/13/22 11/13/22 Range/Units 14:41 14:41 14:41 WBC 11.9 H (3.8-10.6) k/uL RBC 4.27 L (4.30-5.90) m/uL Hgb 13.4 (13.0-17.5) gm/dL Hct 38.0 L (39.0-53.0) % MCV 88.9 (80.0-100.0) fL MCH 31.4 (25.0-35.0) pg MCHC 35.4 (31.0-37.0) g/dL RDW 12.7 (11.5-15.5) % Plt Count 172 (150-450) k/uL MPV 8.3 Neutrophils % 79 % Lymphocytes % 14 % Monocytes % 5 % Eosinophils % 1 % Basophils % 0 % Neutrophils # 9.4 H (1.3-7.7) k/uL Lymphocytes # 1.7 (1.0-4.8) k/uL Monocytes # 0.6 (0-1.0) k/uL Eosinophils # 0.2 (0-0.7) k/uL Basophils # 0.0 (0-0.2) k/uL PT 9.9 (9.0-12.0) sec INR 0.9 (<1.2) APTT 24.2 (22.0-30.0) sec D-Dimer 0.29 (<0.60) mg/L FEU Carbon Monoxide, Quant (<10.0) % Sodium 134 L (137-145) mmol/L Potassium 3.7 (3.5-5.1) mmol/L Chloride 105 (98-107) mmol/L Carbon Dioxide 25 (22-30) mmol/L Anion Gap 4 mmol/L BUN 14 (9-20) mg/dL Creatinine 0.83 (0.66-1.25) mg/dL Est GFR (CKD-EPI)AfAm >90 (>60 ml/min/1.73 sqM) Est GFR (CKD-EPI)NonAf >90 (>60 ml/min/1.73 sqM) Glucose 95 (74-99) mg/dL Calcium 8.8 (8.4-10.2) mg/dL Magnesium 2.3 (1.6-2.3) mg/dL Total Bilirubin 0.7 (0.2-1.3) mg/dL AST 24 (17-59) U/L ALT 22 (4-49) U/L Alkaline Phosphatase 125 (38-126) U/L Troponin I (0.000-0.034) ng/mL Total Protein 6.5 (6.3-8.2) g/dL Albumin 4.0 (3.5-5.0) g/dL 11/13/22 11/13/22 Range/Units 14:41 15:20 WBC (3.8-10.6) k/uL RBC (4.30-5.90) m/uL Hgb (13.0-17.5) gm/dL Hct (39.0-53.0) % MCV (80.0-100.0) fL MCH (25.0-35.0) pg MCHC (31.0-37.0) g/dL RDW (11.5-15.5) % Plt Count (150-450) k/uL MPV Neutrophils % % Lymphocytes % % Monocytes % % Eosinophils % % Basophils % % Neutrophils # (1.3-7.7) k/uL Lymphocytes # (1.0-4.8) k/uL Monocytes # (0-1.0) k/uL Eosinophils # (0-0.7) k/uL Basophils # (0-0.2) k/uL PT (9.0-12.0) sec INR (<1.2) APTT (22.0-30.0) sec D-Dimer (<0.60) mg/L FEU Carbon Monoxide, Quant 9.0 (<10.0) % Sodium (137-145) mmol/L Potassium (3.5-5.1) mmol/L Chloride (98-107) mmol/L Carbon Dioxide (22-30) mmol/L Anion Gap mmol/L BUN (9-20) mg/dL Creatinine (0.66-1.25) mg/dL Est GFR (CKD-EPI)AfAm (>60 ml/min/1.73 sqM) Est GFR (CKD-EPI)NonAf (>60 ml/min/1.73 sqM) Glucose (74-99) mg/dL Calcium (8.4-10.2) mg/dL Magnesium (1.6-2.3) mg/dL Total Bilirubin (0.2-1.3) mg/dL AST (17-59) U/L ALT (4-49) U/L Alkaline Phosphatase (38-126) U/L Troponin I <0.012 (0.000-0.034) ng/mL Total Protein (6.3-8.2) g/dL Albumin (3.5-5.0) g/dL Disposition Clinical Impression: Chest pain, Syncope Disposition: ADMITTED IP TO THIS HOSP Condition: Fair Referrals: Nickolas French [Primary Care Provider] - 1-2 days Time of Disposition: 15:31
[2022-11-13] MEDS ORDERED: ASPIRIN 81 MG PO STA (15:52)
[2022-11-13] MEDS: NITROGLYCERIN SL TABS 0.4 MG TAB SUBLINGUAL PRN (16:55)
[2022-11-13] MEDS: FORMOTEROL FUMARATE 20 MCG/2 ML NEBU INHALATION SCH (20:35)
[2022-11-13] MEDS: BUDESONIDE 0.25 MG/2 ML NEBU INHALATION SCH (20:35)
[2022-11-13] MEDS: ALBUTEROL NEBULIZED 2.5 MG/3 ML INHALATION PRN (20:35)
[2022-11-13] MEDS: PANTOPRAZOLE 40 MG TABLET PO SCH (21:49)
[2022-11-13] MEDS: ATORVASTATIN 80 MG TAB PO SCH (21:49)
[2022-11-13] MEDS: MONTELUKAST 10 MG TAB PO SCH (21:49)
[2022-11-14] MEDS: BUDESONIDE 0.25 MG/2 ML NEBU INHALATION SCH ×2 (08:31→21:10)
[2022-11-14] MEDS: FORMOTEROL FUMARATE 20 MCG/2 ML NEBU INHALATION SCH ×2 (08:32→21:10)
[2022-11-14] MEDS: ALBUTEROL NEBULIZED 2.5 MG/3 ML INHALATION PRN ×2 (08:32→21:10)
[2022-11-14] MEDS: PANTOPRAZOLE 40 MG TABLET PO SCH ×2 (09:00→19:43)
[2022-11-14] MEDS: ASPIRIN 325 MG TAB PO SCH (09:00)
[2022-11-14] MEDS: CLOPIDOGREL 75 MG TAB PO SCH (09:00)
[2022-11-14] MEDS: lisinopriL 5 MG TAB PO SCH (09:01)
[2022-11-14] MEDS: VERAPAMIL SR 120 MG TABLET.ER PO SCH (09:01)
[2022-11-14] MEDS: Acetaminophen-Codeine 300-30mg TAB PO PRN ×2 (09:04→17:01)
[2022-11-14 09:22] LABS: Basophils # (A) 0.06 X 10*3/uL (0.00-0.10); Basophils % (A) 0.7 %; Eosinophils # (A) 0.27 X 10*3/uL (0.04-0.35); Eosinophils % (A) 3.3 %; HCT 40.1 % (39.6-50.0); HGB 13.6 d/dL (13.0-17.0); Lymphocytes # (A) 2.65 X 10*3/uL (0.90-5.00); Lymphocytes % (A) 32.7 %; MCHC 33.9 d/dL (32.0-37.0); MCV 88.5 FL (80.0-97.0); Mean Platelet Volume 10.9 FL (9.5-12.2); Monocytes # (A) 0.61 X 10*3/uL (0.20-1.00); Monocytes % (A) 7.5 %; NRBC Per 100 WBC 0 X 10*3/uL (0.00-0.01); Neutrophils # (A) 4.48 X 10*3/uL (1.80-7.70); Neutrophils % (A) 55.4 %; Platelet Count 205 X 10*3/uL (140-440); RBC 4.53 X 10*6/uL (4.40-5.60)
--- NOTE | 2022-11-14 10:11 | P.PN ---
Subjective Progress Note Date: 11/14/22 Principal diagnosis: syncope The patient is a pleasant 62-year-old gentleman with CAD and prior stenting of the RCA and LAD and known intermediate disease involving the left circumflex as well as coronary vasospasm and hypertension and dyslipidemia presented to the hospital or was brought to the hospital because he was not feeling well. The patient was in park yesterday when he was around significant smoke related to be grieving: When he felt dizzy and lightheaded and subsequently he fell down and lost his consciousness. After he woke up he chest discomfort and took nitr oglycerin which helped for the pain and subsequently the patient was brought to the hospital for further evaluation. he underwent workup including EKG showed nonspecific changes inferiorly and blood work came in to be unremarkable besides elevated level of carbon monoxide. Currently he is asymptomatic. Currently he is mechanically stable. He underwent a heart catheterization in May 2022 and that revealed patent stent in both the RCA and LAD with intermediate disease involving the left circumflex, found to be [id number] with Doppler wire. The examination today is remarkable for stable vital signs with irregular rhythm and clear breathing sounds bilaterally. Assessment Syncopal episode Chest discomfort Elevated level of carbon monoxide CAD as described above Coronary vasospasm Recurrent hospital admissions was chest discomfort Plan Acute coronary event was ruled out The symptoms could be related to carbon monoxide elevation Monitor the patient for additional 24 hours Rule out any cardiac arrhythmia Follow-up with the patient Objective - Vital Signs Vital signs: Vital Signs Temp 97.9 F 11/14/22 07:00 Pulse 68 11/14/22 08:43 Resp 18 11/14/22 07:00 BP 119/73 11/14/22 07:00 Pulse Ox 98 11/14/22 07:00 FiO2 Intake & Output 11/13/22 11/14/22 11/14/22 18:59 06:59 18:59 Intake Total 600 Balance 600 Weight 87.997 kg 87.997 kg Intake: Oral 600 Other: # Voids 2 - Labs CBC & Chem 7: 11/14/22 05:32 11/13/22 14:41 Labs: Abnormal Lab Results - Last 24 Hours (Table) 11/13/22 11/13/22 Range/Units 14:41 14:41 WBC 11.9 H (3.8-10.6) k/uL RBC 4.27 L (4.30-5.90) m/uL Hct 38.0 L (39.0-53.0) % Neutrophils # 9.4 H (1.3-7.7) k/uL Sodium 134 L (137-145) mmol/L
[2022-11-14 10:24] LABS: BUN/Creat Ratio 12.89 Ratio (12.00-20.00); Blood Urea Nitrogen 11.6 mg/dL (9.0-27.0); Calcium 8.6 mg/dL (8.7-10.3); Carbon Dioxide 22.7 mmol/L (21.6-31.8); Chloride 108 mmol/L (96-109); Chol/HDL Ratio 4.19 Ratio; Glucose 99 mg/dL (70-110); LDL Cholesterol,Calculated 77.7 mg/dL (0.0-131.0); Potassium 4.4 mmol/L (3.5-5.5); Sodium 139 mmol/L (135-145); VLDL Calculation 19.02 mg/dL (5.00-40.00)
[2022-11-14] MEDS: NITROGLYCERIN SL TABS 0.4 MG TAB SUBLINGUAL PRN (19:14)
--- NOTE | 2022-11-14 19:16 | P.HPIM ---
History of Present Illness H&P Date: 11/13/22 Chief Complaint: Chest pain/syncope 62-year-old male presents emergency department via EMS chief last syncopal episode. Patient states that he has been outside [facility] uptake last 24 hours he states that he became very lightheaded, dizzy and passed out. Patient denies any head injury. Patient was complaining of chest pain was given nitro at home and by EMS and which this pain resolved. Patient states it cardiac stents placed one year ago. Patient does admit to mild shortness of breath. Denies any back pain, neck pain. After he woke up he chest discomfort and took nitroglycerin which helped for the pain and subsequently the patient was brought to the hospital for further evaluation. he underwent workup including EKG showed nonspecific changes inferiorly and blood work came in to be unremarkable besides elevated level of carbon monoxide. Currently he is asymptomatic. Currently he is mechanically stable. He underwent a heart catheterization in May 2022 and that revealed patent stent in both the RCA and LAD with intermediate disease involving the left circumflex Review of Systems REVIEW OF SYSTEMS: CONSTITUTIONAL: No fever, no malaise, no fatigue. HEENT: No recent visual problems or hearing problems. Denied any sore throat. CARDIOVASCULAR: No chest pain, orthopnea, PND, no palpitations, no syncope. PULMONARY: No shortness of breath, no cough, no hemoptysis. GASTROINTESTINAL: No diarrhea, no nausea, no vomiting, no abdominal pain. NEUROLOGICAL: No headaches, no weakness, no numbness. HEMATOLOGICAL: Denies any bleeding or petechiae. GENITOURINARY: Denies any burning micturition, frequency, or urgency. MUSCULOSKELETAL/RHEUMATOLOGICAL: Denies any joint pain, swelling, or any muscle pain. ENDOCRINE: Denies any polyuria or polydipsia. The rest of the 14-point review of systems is negative. Past Medical History Past Medical History: Coronary Artery Disease (CAD), Chest Pain / Angina, COPD, Hyperlipidemia, Hypertension, Myocardial Infarction ([place]) Additional Past Medical History / Comment(s): Pt states he has hx of 3 respiratory arrests and was vented, generalized arthritis, Last Myocardial Infarction Date:: History of Any Multi-Drug Resistant Organisms: None Reported Past Surgical History: Adenoidectomy, Heart Catheterization With Stent, Hernia Repair, Joint Replacement, Orthopedic Surgery, Tonsillectomy Additional Past Surgical History / Comment(s): R inguinal hernia repair, L rotator cuff repair, bialteral total knee arthroplasties, R shoulder spur removal, teeth extracted, colonoscopy-normal. third hernia repair, left side, stents x2 2020, stents x1 11/2021 Past Anesthesia/Blood Transfusion Reactions: No Reported Reaction Date of Last Stent Placement:: 2021 Past Psychological History: No Psychological Hx Reported Smoking Status: Former smoker Past Alcohol Use History: None Reported Past Drug Use History: Marijuana - Past Family History Father Family Medical History: Cancer Additional Family Medical History / Comment(s): Father of lung cancer at the age of 62. He was a smoker. Mother Family Medical History: Cancer, Diabetes Mellitus, Hypertension Additional Family Medical History / Comment(s): Mother at age 78 from brainstem cancer. Brother(s) Additional Family Medical History / Comment(s): Patient's 1 brother with history of AAA. Patient has 4 sisters and he does not know any of their medical history. Patient's 1 son and 1 daughter living. He had one daughter that at 7 weeks old from a congenital heart. Medications and Allergies Home Medications Medication Instructions Recorded Confirmed Type Clopidogrel [Plavix] 75 mg PO DAILY #30 tab 11/02/20 11/13/22 Rx Montelukast [Singulair] 10 mg PO HS 11/23/20 11/13/22 History Atorvastatin Calcium [Lipitor] 80 mg PO HS 03/25/21 11/13/22 History Albuterol Nebulized [Ventolin 2.5 mg INHALATION RT-Q4H PRN 08/20/21 11/13/22 History Nebulized] Albuterol Sulfate [Proair Hfa] 2 puff INHALATION RT-Q4H PRN 08/20/21 11/13/22 History Aspirin EC [Ecotrin Low Dose] 81 mg PO DAILY 12/13/21 11/13/22 History Nitroglycerin Sl Tabs [Nitrostat] 0.4 mg SUBLINGUAL Q5M PRN #25 tab 08/13/22 11/13/22 Rx Verapamil HCl [Verapamil ER] 120 mg PO DAILY 10/13/22 11/13/22 History Acetaminophen Tab [Tylenol] 650 mg PO Q6HR PRN tab 10/14/22 11/13/22 Rx Isosorbide Mononitrate ER [Imdur] 30 mg PO BID #60 tab 10/14/22 11/13/22 Rx Pantoprazole [Protonix] 40 mg PO BID 30 Days #60 tab 10/14/22 11/13/22 Rx lisinopriL [Zestril] 5 mg PO DAILY #30 tab 10/14/22 11/13/22 Rx Acetaminophen-Codeine 300-30mg 1 tab PO Q4H PRN MDD 4 TABS 11/13/22 11/13/22 History [Tylenol w/codeine #3] Arformoterol Tartrate [Brovana] 15 mcg INHALATION RT-BID 11/13/22 11/13/22 History Budesonide [Pulmicort] 0.25 mg INHALATION RT-BID 11/13/22 11/13/22 History Yupelri 175 Mcg/3ml Nebulizer 175 mcg INHALATION RT-DAILY 11/13/22 11/13/22 History Solution Allergies Allergy/AdvReac Type Severity Reaction Status Date / Time levofloxacin [From [facility]] AdvReac Nausea & Verified 11/13/22 16:46 Vomiting Physical Exam Vitals: Vital Signs Temp Pulse Pulse Resp BP BP BP 11/13/22 17:36 97.6 F 65 17 133/87 11/13/22 17:02 93 19 141/89 11/13/22 16:57 87 24 164/97 11/13/22 16:35 90 20 136/99 11/13/22 16:34 66 19 139/81 11/13/22 16:33 68 18 11/13/22 16:07 11/13/22 15:31 84 20 125/93 11/13/22 14:37 79 11/13/22 14:28 98.5 F 86 16 112/84 BP Pulse Ox 11/13/22 17:36 98 11/13/22 17:02 98 11/13/22 16:57 99 11/13/22 16:35 97 11/13/22 16:34 98 11/13/22 16:33 133/94 99 11/13/22 16:07 98 11/13/22 15:31 99 11/13/22 14:37 11/13/22 14:28 93 L Intake and Output 11/13/22 11/13/22 11/13/22 06:59 14:59 22:59 Other: Weight 87.997 kg PHYSICAL EXAMINATION: GENERAL: The patient is alert and oriented x3, not in any acute distress. Well developed, well nourished. HEENT: Pupils are round and equally reacting to light. EOMI. No scleral icterus. No conjunctival pallor. Normocephalic, atraumatic. No pharyngeal erythema. No thyromegaly. CARDIOVASCULAR: S1 and S2 present. No murmurs, rubs, or gallops. PULMONARY: Chest is clear to auscultation, no wheezing or crackles. ABDOMEN: Soft, nontender, nondistended, normoactive bowel sounds. No palpable organomegaly. MUSCULOSKELETAL: No joint swelling or deformity. EXTREMITIES: No cyanosis, clubbing, or pedal edema. NEUROLOGICAL: Gross neurological examination did not reveal any focal deficits. SKIN: No rashes. Results CBC & Chem 7: 11/14/22 05:32 11/14/22 05:32 Labs: Abnormal Lab Results - Last 24 Hours (Table) 11/13/22 11/13/22 Range/Units 14:41 14:41 WBC 11.9 H (3.8-10.6) k/uL RBC 4.27 L (4.30-5.90) m/uL Hct 38.0 L (39.0-53.0) % Neutrophils # 9.4 H (1.3-7.7) k/uL Sodium 134 L (137-145) mmol/L Assessment and Plan Assessment: 1. Acute syncopal episode - We will admit to telemetry; monitor cardiac enzymes and EKG - Patient has been evaluated by cardiology and deemed symptomatic likely related to elevated carbon monoxide level - Recommended to be observed overnight 2. Chest pain; patient had had a catheterization completed in May 2022 which revealed patent stent in both RCA and LAD with intermediate disease involving left circumflex - Cardiac enzymes have been negative so far; no acute EKG changes - Cardiology recommending possibly coronary vasospasm; continue with aspirin, statins, beta blockers and Plavix - Patient to be monitored 3. Elevated carbon monoxide level; patient to be monitored for any cardiac arrhythmias were 24 hours 4. Hypertension; verapamil 120 mg daily, lisinopril 5 mg daily 5. Hyperlipidemia; Lipitor 80 mg by mouth daily at bedtime 6. Asthma; not in exacerbation; continue with home inhaler therapy DVT prophylaxis; SCDs CODE STATUS full code;
[2022-11-14] MEDS: ATORVASTATIN 80 MG TAB PO SCH (19:43)
[2022-11-14] MEDS: MONTELUKAST 10 MG TAB PO SCH (19:43)
[2022-11-15] MEDS: lisinopriL 5 MG TAB PO SCH (08:15)
[2022-11-15] MEDS: PANTOPRAZOLE 40 MG TABLET PO SCH ×2 (08:15→20:00)
[2022-11-15] MEDS: VERAPAMIL SR 120 MG TABLET.ER PO SCH (08:15)
[2022-11-15] MEDS: ASPIRIN 325 MG TAB PO SCH (08:15)
[2022-11-15] MEDS: CLOPIDOGREL 75 MG TAB PO SCH (08:15)
[2022-11-15] MEDS: ALBUTEROL NEBULIZED 2.5 MG/3 ML INHALATION PRN (08:42)
[2022-11-15] MEDS: BUDESONIDE 0.25 MG/2 ML NEBU INHALATION SCH ×2 (08:42→21:10)
[2022-11-15] MEDS: FORMOTEROL FUMARATE 20 MCG/2 ML NEBU INHALATION SCH ×2 (08:58→21:10)
[2022-11-15 09:56] LABS: Basophils % (A) 0 %; Eosinophils # (A) 0.2 k/uL (0-0.7); Eosinophils % (A) 2 %; HCT 44.9 % (39.0-53.0); HGB 14.9 gm/dL (13.0-17.5); Lymphocytes # (A) 2.9 k/uL (1.0-4.8); Lymphocytes % (A) 30 %; MCH 30.3 pg (25.0-35.0); MCHC 33.2 g/dL (31.0-37.0); Mean Platelet Volume 8.7; Monocytes # (A) 0.4 k/uL (0-1.0); Monocytes % (A) 4 %; Neutrophils # (A) 5.8 k/uL (1.3-7.7); Neutrophils % (A) 61 %; Platelet Count 193 k/uL (150-450); RBC 4.93 m/uL (4.30-5.90); WBC 9.4 k/uL (3.8-10.6)
[2022-11-15 10:26] LABS: African American GFR (CKD) >90 (>60 ml/min/1.73 sqM); Anion Gap 8 mmol/L; Blood Urea Nitrogen 12 mg/dL (9-20); Carbon Dioxide 23 mmol/L (22-30); Chloride 106 mmol/L (98-107); Glucose 110 mg/dL (74-99); Non-African American GFR(CKD) >90 (>60 ml/min/1.73 sqM); Potassium 4.1 mmol/L (3.5-5.1); Sodium 137 mmol/L (137-145)
--- NOTE | 2022-11-15 12:11 | P.PN ---
Subjective Progress Note Date: 11/15/22 Principal diagnosis: syncope The patient is a pleasant 62-year-old gentleman with CAD and prior stenting of the RCA and LAD and known intermediate disease involving the left circumflex as well as coronary vasospasm and hypertension and dyslipidemia presented to the hospital or was brought to the hospital because he was not feeling well. The patient was in park yesterday when he was around significant smoke related to be grieving: When he felt dizzy and lightheaded and subsequently he fell down and lost his consciousness. After he woke up he chest discomfort and took nitr oglycerin which helped for the pain and subsequently the patient was brought to the hospital for further evaluation. he underwent workup including EKG showed nonspecific changes inferiorly and blood work came in to be unremarkable besides elevated level of carbon monoxide. Currently he is asymptomatic. Currently he is mechanically stable. He underwent a heart catheterization in May 2022 and that revealed patent stent in both the RCA and LAD with intermediate disease involving the left circumflex, found to be [id number] with Doppler wire. The examination today is remarkable for stable vital signs with irregular rhythm and clear breathing sounds bilaterally. November 152022 The patient was seen and evaluated this morning. He did have an episode of chest discomfort yesterday he was nitroglycerin sublingual. He is known to have severe coronary vasospasm. I'm going to start the patient on oral nitrates. Otherwise he is hemodynamically stable. I would advise monitor the patient overnight for additional 24 hours before we discharge him home. The examination is remarkable for stable vital signs with clear breathing sounds bilaterally and regular rate and rhythm and no lower extremities are noted Assessment Syncopal episode Chest discomfort Elevated level of carbon monoxide CAD as described above Coronary vasospasm Recurrent hospital admissions was chest discomfort Plan Acute coronary event was ruled out Start the patient on oral nitrate Continue verapamil Monitor the patient for additional 24 hours Objective - Vital Signs Vital signs: Vital Signs Temp 98 F 11/15/22 07:00 Pulse 60 11/15/22 09:03 Resp 18 11/15/22 07:00 BP 125/77 11/15/22 07:00 Pulse Ox 98 11/15/22 07:00 FiO2 Intake & Output 11/14/22 11/15/22 11/15/22 18:59 06:59 18:59 Intake Total 840 Balance 840 Intake: Oral 840 Other: # Voids 0 1 - Labs CBC & Chem 7: 11/15/22 08:25 11/15/22 08:25 Labs: Abnormal Lab Results - Last 24 Hours (Table) 11/15/22 Range/Units 08:25 Glucose 110 H (74-99) mg/dL
[2022-11-15] MEDS: ISOSORBIDE MONONITRATE ER 30 MG TAB.ER.24H PO SCH (12:44)
[2022-11-15] MEDS: NITROGLYCERIN SL TABS 0.4 MG TAB SUBLINGUAL PRN (16:24)
[2022-11-15] MEDS: ATORVASTATIN 80 MG TAB PO SCH (20:00)
[2022-11-15] MEDS: MONTELUKAST 10 MG TAB PO SCH (20:00)
--- NOTE | 2022-11-15 21:42 | P.PN ---
Subjective Progress Note Date: 11/15/22 62-year-old male presents emergency department via EMS chief last syncopal episode. Patient states that he has been outside [facility] uptake last 24 hours he states that he became very lightheaded, dizzy and passed out. Patient denies any head injury. Patient was complaining of chest pain was given nitro at home and by EMS and which this pain resolved. Patient states it cardiac stents placed one year ago. Patient does admit to mild shortness of breath. Denies any back pain, neck pain. After he woke up he chest discomfort and took nitroglycerin which helped for the pain and subsequently the patient was brought to the hospital for further evaluation. he underwent workup including EKG showed nonspecific changes inferiorly and blood work came in to be unremarkable besides elevated level of carbon monoxide. Currently he is asymptomatic. Currently he is mechanically stable. He underwent a heart catheterization in May 2022 and that revealed patent stent in both the RCA and LAD with intermediate disease involving the left circumflex 11/15/2022 The patient is seen and evaluated ambulating in room. He did have an episode of chest discomfort yesterday he was nitroglycerin sublingual. He is known to have severe coronary vasospasm. Acute coronary event was ruled out; Cardiology on board -- Start the patient on oral nitrate Continue verapamil Monitor the patient for additional 24 hours Objective - Vital Signs Vital signs: Vital Signs Temp 98 F 11/15/22 07:00 Pulse 60 11/15/22 09:03 Resp 18 11/15/22 07:00 BP 125/77 11/15/22 07:00 Pulse Ox 98 11/15/22 07:00 FiO2 Intake & Output 11/14/22 11/15/22 11/15/22 18:59 06:59 18:59 Intake Total 840 Balance 840 Intake: Oral 840 Other: # Voids 0 1 - Exam GENERAL: The patient is alert and oriented x3, not in any acute distress. Well developed, well nourished. HEENT: Pupils are round and equally reacting to light. EOMI. No scleral icterus. No conjunctival pallor. Normocephalic, atraumatic. No pharyngeal erythema. No thyromegaly. CARDIOVASCULAR: S1 and S2 present. No murmurs, rubs, or gallops. PULMONARY: Chest is clear to auscultation, no wheezing or crackles. ABDOMEN: Soft, nontender, nondistended, normoactive bowel sounds. No palpable organomegaly. MUSCULOSKELETAL: No joint swelling or deformity. EXTREMITIES: No cyanosis, clubbing, or pedal edema. NEUROLOGICAL: Gross neurological examination did not reveal any focal deficits. SKIN: No rashes. - Labs CBC & Chem 7: 11/15/22 08:25 11/15/22 08:25 Labs: Abnormal Lab Results - Last 24 Hours (Table) 11/15/22 Range/Units 08:25 Glucose 110 H (74-99) mg/dL Assessment and Plan Assessment: 1. Acute syncopal episode - We will admit to telemetry; monitor cardiac enzymes and EKG - Patient has been evaluated by cardiology and deemed symptomatic likely related to elevated carbon monoxide level - Recommended to be observed overnight 2. Chest pain; patient had had a catheterization completed in May 2022 which revealed patent stent in both RCA and LAD with intermediate disease involving left circumflex - Cardiac enzymes have been negative so far; no acute EKG changes - Cardiology recommending possibly coronary vasospasm; continue with aspirin, statins, beta blockers and Plavix - Patient to be monitored 3. Elevated carbon monoxide level; patient to be monitored for any cardiac arrhythmias were 24 hours 4. Hypertension; verapamil 120 mg daily, lisinopril 5 mg daily 5. Hyperlipidemia; Lipitor 80 mg by mouth daily at bedtime 6. Asthma; not in exacerbation; continue with home inhaler therapy DVT prophylaxis; SCDs CODE STATUS full code;
[2022-11-15 21:43] VITALS: RESP 16
[2022-11-16] MEDS: ASPIRIN 325 MG TAB PO SCH (07:55)
[2022-11-16] MEDS: VERAPAMIL SR 120 MG TABLET.ER PO SCH (07:55)
[2022-11-16] MEDS: CLOPIDOGREL 75 MG TAB PO SCH (07:55)
[2022-11-16] MEDS: ISOSORBIDE MONONITRATE ER 30 MG TAB.ER.24H PO SCH (07:55)
[2022-11-16] MEDS: PANTOPRAZOLE 40 MG TABLET PO SCH (07:55)
[2022-11-16] MEDS: lisinopriL 5 MG TAB PO SCH (07:58)
[2022-11-16] MEDS: FORMOTEROL FUMARATE 20 MCG/2 ML NEBU INHALATION SCH (08:53)
[2022-11-16] MEDS: ALBUTEROL NEBULIZED 2.5 MG/3 ML INHALATION PRN (08:53)
[2022-11-16] MEDS: BUDESONIDE 0.25 MG/2 ML NEBU INHALATION SCH (08:53)
[2022-11-16] MEDS ORDERED: ASPIRIN 81 MG PO SCH (09:00)
[2022-11-16] MEDS ORDERED: EZETIMIBE 10 MG TAB PO SCH (09:00)
[2022-11-16] MEDS ORDERED: lisinopriL 5 MG TAB PO SCH ×2 (09:00→21:00)
[2022-11-16] MEDS ORDERED: ISOSORBIDE MONONITRATE ER 30 MG TAB.ER.24H PO SCH ×2 (09:00→21:00)
[2022-11-16 09:02] VITALS: BP 149/90; TEMP 98.3
[2022-11-16 09:25] VITALS: PULSE 76
--- NOTE | 2022-11-16 10:35 | P.PN ---
Subjective Progress Note Date: 11/16/22 The patient is a pleasant 62-year-old gentleman with CAD and prior stenting of the RCA and LAD and known intermediate disease involving the left circumflex as well as coronary vasospasm and hypertension and dyslipidemia presented to the hospital or was brought to the hospital because he was not feeling well. The patient was in park yesterday when he was around significant smoke related to be grieving: When he felt dizzy and lightheaded and subsequently he fell down and lost his consciousness. After he woke up he chest discomfort and took nitroglycerin which helped for the pain and subsequently the patient was brought to the hospital for further evaluation. he underwent workup including EKG showed nonspecific changes inferiorly and blood work came in to be unremarkable besides elevated level of carbon monoxide. Currently he is asymptomatic. Currently he is mechanically stable. He underwent a heart catheterization in May 2022 and that revealed patent stent in both the RCA and LAD with intermediate disease involving the left circumflex, found to be [id number] with Doppler wire. The examination today is remarkable for stable vital signs with irregular rhythm and clear breathing sounds bilaterally. November 152022 The patient was seen and evaluated this morning. He did have an episode of chest discomfort yesterday he was nitroglycerin sublingual. He is known to have severe coronary vasospasm. I'm going to start the patient on oral nitrates. Otherwise he is hemodynamically stable. I would advise monitor the patient overnight for additional 24 hours before we discharge him home. 11/16 Patient is seen today in follow-up. He denies having any chest pain. He states that when he does have chest pain correlates to a high blood pressure at home and when he obtains his blood pressure without symptoms, it's in a normal range. Blood pressure this morning is 149/90 and heart rates in the 60s. The examination is remarkable for stable vital signs with clear breathing sounds bilaterally and regular rate and rhythm and no lower extremities are noted Assessment Syncopal episode Chest discomfort Elevated level of carbon monoxide CAD as described above Coronary vasospasm Recurrent hospital admissions was chest discomfort Plan Acute coronary event was ruled out Continue patient's home cardiac medications Increase frequency of lisinopril to twice daily 5 mg Add Zetia 10 mg daily Patient is cleared from cardiology for discharge. Follow-up in the office in one week with Dr. De Luna. Nurse practitioner note has been reviewed, I agree with the documented findings and plan of care. Patient was seen and examined. Objective - Vital Signs Vital signs: Vital Signs Temp 97.8 F 11/16/22 02:48 Pulse 66 11/16/22 02:48 Resp 16 11/16/22 02:48 BP 113/70 11/16/22 02:48 Pulse Ox 99 11/16/22 02:48 FiO2 Intake & Output 11/15/22 11/16/22 11/16/22 18:59 06:59 18:59 Intake Total 90 240 Balance 90 240 Intake: Oral 90 240 Other: # Voids 1 2 - Labs CBC & Chem 7: 11/15/22 08:25 11/15/22 08:25 Labs: Abnormal Lab Results - Last 24 Hours (Table) 11/15/22 Range/Units 08:25 Glucose 110 H (74-99) mg/dL
[2022-11-16 11:00] LABS: Blood Urea Nitrogen 13.2 mg/dL (9.0-27.0); Calcium 9.6 mg/dL (8.7-10.3); Carbon Dioxide 22.9 mmol/L (21.6-31.8); Chloride 106 mmol/L (96-109); Glucose 103 mg/dL (70-110); Potassium 4.7 mmol/L (3.5-5.5); Sodium 140 mmol/L (135-145)
--- NOTE | 2022-11-16 11:22 | P.DS ---
Providers Date of admission: 11/13/22 16:08 Attending physician: Hilda Juárez MD Consults: 11/13/22 15:53 Consult Physician Urgent Consulting Provider: Idris De Luna Consult Reason/Comments: Syncope, chest pain Do you want consulting provider notified?: Yes Primary care physician: Nickolas De La O [facility] Hospital Course: 62-year-old male presents emergency department via EMS chief last syncopal episode. Patient states that he has been outside [facility] uptake last 24 hours he states that he became very lightheaded, dizzy and passed out. Patient denies any head injury. Patient was complaining of chest pain was given nitro at home and by EMS and which this pain resolved. Patient states it cardiac stents placed one year ago. Patient does admit to mild shortness of breath. Denies any back pain, neck pain. After he woke up he chest discomfort and took nitroglycerin which helped for the pain and subsequently the patient was brought to the hospital for further evaluation. he underwent workup including EKG showed nonspecific changes inferiorly and blood work came in to be unremarkable besides elevated level of carbon monoxide. Currently he is asymptomatic. Currently he is mechanically stable. He underwent a heart catheterization in May 2022 and that revealed patent stent in both the RCA and LAD with intermediate disease involving the left circumflex 11/15/2022 The patient is seen and evaluated ambulating in room. He did have an episode of chest discomfort yesterday he was nitroglycerin sublingual. He is known to have severe coronary vasospasm. Acute coronary event was ruled out; Cardiology on board -- Start the patient on oral nitrate Continue verapamil Monitor the patient for additional 24 hours 11/16/2022 Patient doesn't have any chest pain episodes today. Zetia was added to his regimen. Patient was on the 30 mg once a day of the imdur which was changed to twice a day. Patient apparently had severe coronary vasospasm. Patient was also bit hypotensive may have contributed to his syncopal episodes. Cutting down lisinopril to 5 mg once a day from twice a day. PHYSICAL EXAMINATION: GENERAL: The patient is alert and oriented x3, not in any acute distress. Well developed, well nourished. HEENT: Pupils are round and equally reacting to light. EOMI. No scleral icterus. No conjunctival pallor. Normocephalic, atraumatic. No pharyngeal erythema. No thyromegaly. CARDIOVASCULAR: S1 and S2 present. No murmurs, rubs, or gallops. PULMONARY: Chest is clear to auscultation, no wheezing or crackles. ABDOMEN: Soft, nontender, nondistended, normoactive bowel sounds. No palpable organomegaly. MUSCULOSKELETAL: No joint swelling or deformity. EXTREMITIES: No cyanosis, clubbing, or pedal edema. NEUROLOGICAL: Gross neurological examination did not reveal any focal deficits. SKIN: No rashes. Assessment and Plan Assessment: 1. Acute syncopal episode Probably due to episodes of hypotension lisinopril dose was cut down to 5 mg once a day 2. Chest pain; patient had had a catheterization completed in May 2022 which revealed patent stent in both RCA and LAD with intermediate disease involving left circumflex - Cardiac enzymes have been negative ; no acute EKG changes possibly coronary vasospasm; continue with aspirin, statins, beta blockers and Plavix 3. Elevated carbon monoxide level; patient to be monitored for any cardiac arrhythmias were 24 hours 4. Hypertension; verapamil 120 mg daily, lisinopril 5 mg daily 5. Hyperlipidemia; Lipitor 80 mg by mouth daily at bedtime 6. Asthma; not in exacerbation; continue with home inhaler therapy Patient Condition at Discharge: Fair Plan - Discharge Summary Discharge Rx Participant: No New Discharge Prescriptions: New Ezetimibe [Zetia] 10 mg PO DAILY #60 tab Continue Clopidogrel [Plavix] 75 mg PO DAILY #30 tab Montelukast [Singulair] 10 mg PO HS Aspirin EC [Ecotrin Low Dose] 81 mg PO DAILY Verapamil HCl [Verapamil ER] 120 mg PO DAILY Isosorbide Mononitrate ER [Imdur] 30 mg PO BID #60 tab lisinopriL [Zestril] 5 mg PO DAILY #30 tab Yupelri 175 Mcg/3ml Nebulizer Solution 175 mcg INHALATION RT-DAILY Budesonide [Pulmicort] 0.25 mg INHALATION RT-BID Atorvastatin Calcium [Lipitor] 80 mg PO HS Albuterol Sulfate [Proair Hfa] 2 puff INHALATION RT-Q4H PRN PRN Reason: Shortness Of Breath Albuterol Nebulized [Ventolin Nebulized] 2.5 mg INHALATION RT-Q4H PRN PRN Reason: Shortness Of Breath Nitroglycerin Sl Tabs [Nitrostat] 0.4 mg SUBLINGUAL Q5M PRN #25 tab PRN Reason: Chest Pain Acetaminophen Tab [Tylenol] 650 mg PO Q6HR PRN tab PRN Reason: Mild Pain Or Fever > 100.5 Pantoprazole [Protonix] 40 mg PO BID 30 Days #60 tab Arformoterol Tartrate [Brovana] 15 mcg INHALATION RT-BID Acetaminophen-Codeine 300-30mg [Tylenol w/codeine #3] 1 tab PO Q4H PRN MDD 4 TABS PRN Reason: Pain Discharge Medication List Clopidogrel [Plavix] 75 mg PO DAILY #30 tab 11/02/20 [Rx] Montelukast [Singulair] 10 mg PO HS 11/23/20 [History] Atorvastatin Calcium [Lipitor] 80 mg PO HS 03/25/21 [History] Albuterol Nebulized [Ventolin Nebulized] 2.5 mg INHALATION RT-Q4H PRN 08/20/21 [History] Albuterol Sulfate [Proair Hfa] 2 puff INHALATION RT-Q4H PRN 08/20/21 [History] Aspirin EC [Ecotrin Low Dose] 81 mg PO DAILY 12/13/21 [History] Nitroglycerin Sl Tabs [Nitrostat] 0.4 mg SUBLINGUAL Q5M PRN #25 tab 08/13/22 [Rx] Verapamil HCl [Verapamil ER] 120 mg PO DAILY 10/13/22 [History] Acetaminophen Tab [Tylenol] 650 mg PO Q6HR PRN tab 10/14/22 [Rx] Isosorbide Mononitrate ER [Imdur] 30 mg PO BID #60 tab 10/14/22 [Rx] Pantoprazole [Protonix] 40 mg PO BID 30 Days #60 tab 10/14/22 [Rx] lisinopriL [Zestril] 5 mg PO DAILY #30 tab 10/14/22 [Rx] Acetaminophen-Codeine 300-30mg [Tylenol w/codeine #3] 1 tab PO Q4H PRN MDD 4 TABS 11/13/22 [History] Arformoterol Tartrate [Brovana] 15 mcg INHALATION RT-BID 11/13/22 [History] Budesonide [Pulmicort] 0.25 mg INHALATION RT-BID 11/13/22 [History] Yupelri 175 Mcg/3ml Nebulizer Solution 175 mcg INHALATION RT-DAILY 11/13/22 [History] Ezetimibe [Zetia] 10 mg PO DAILY #60 tab 11/16/22 [Rx] Follow up Appointment(s)/Referral(s): Idris De Luna MD [STAFF PHYSICIAN] - 1 Week (patient states he will call office to make follow up appointment.) Nickolas French [Primary Care Provider] - 3 Days Patient Instructions/Handouts: Carbon Monoxide Poisoning (ED) Activity/Diet/Wound Care/Special Instructions: Renal artery duplex study as OP Discharge Disposition: HOME SELF-CARE
[2022-11-17] MEDS ORDERED: ASPIRIN 81 MG PO SCH (09:00)
== END 2022-11-16 12:00 | disposition home or self-care (01) ==
LOC: EC 14:25 → 6NMEDSUR 16:08
PROVIDERS: ADMIT Internal Medicine; ATTEND Internal Medicine
DX: R55 Syncope and collapse (principal); R07.9 Chest pain, unspecified; I25.111 Atherosclerotic heart disease of native coronary artery with angina pectoris with documented spasm; R79.81 Abnormal blood-gas level; J44.9 Chronic obstructive pulmonary disease, unspecified; E78.5 Hyperlipidemia, unspecified; I10 Essential (primary) hypertension; I25.2 Old myocardial infarction; Z95.5 Presence of coronary angioplasty implant and graft; Z79.899 Other long term (current) drug therapy; Z79.82 Long term (current) use of aspirin; Z79.02 Long term (current) use of antithrombotics/antiplatelets; Z88.1 Allergy status to other antibiotic agents; Z82.49 Family history of ischemic heart disease and other diseases of the circulatory system
CPT/HCPCS: 36415; 71046; 80048; 80053; 80061; 82375; 83735; 83880; 84484; 85025; 85379; 85610; 85730; 93005; 94640; 94760; 96360; 96361; 99285

== ENCOUNTER → 2022-11-18 | Outpatient (CLI) | payer MEDICARE, OTHER ==
--- NOTE | 2022-11-19 18:46 | CA ---
Transthoracic Echo Report Name: Marcel Jo Age: 62 Gender: M : 1960 Exam Date: 11/18/2022 12:52 Exam Location: [facility] Ht (in): 68 Wt (lb): 195 Ordering Physician: Bry Light MD Attending/Referring Phys: Bry Light MD Conservator Artifacts Binta Kumar, [facility] Procedure CPT: Indications: H24.231 Cardiac Hx: Technical Quality: Fair Contrast 1: Total Dose (mL): Contrast 2: Total Dose (mL): MEASUREMENTS (Male / Female) Normal Values 2D ECHO LV Diastolic Diameter PLAX 4.4 cm 4.2 - 5.9 / 3.9 - 5.3 cm LV Systolic Diameter PLAX 2.3 cm IVS Diastolic Thickness 1.1 cm 0.6 - 1.0 / 0.6 - 0.9 cm LVPW Diastolic Thickness 1.0 cm 0.6 - 1.0 / 0.6 - 0.9 cm LV Relative Wall Thickness 0.5 LA Volume 45.4 cm??? 18 - 58 / 22 - 52 cm??? M-MODE Aortic Root Diameter MM 3.0 cm LA Systolic Diameter MM 1.6 cm LA Ao Ratio MM 0.5 AV Cusp Separation MM 3.3 cm DOPPLER AV Peak Velocity 157.6 cm/s AV Peak Gradient 9.9 mmHg AV Mean Velocity 102.3 cm/s AV Mean Gradient 4.8 mmHg AV Velocity Time Integral 27.9 cm LVOT Peak Velocity 112.7 cm/s LVOT Peak Gradient 5.1 mmHg LVOT Velocity Time Integral 28.8 cm Mitral E Point Velocity 76.7 cm/s Mitral A Point Velocity 108.9 cm/s Mitral E to A Ratio 0.7 MV Deceleration Time 228.4 ms MV E' Velocity 6.5 cm/s Mitral E to MV E' Ratio 11.8 TR Peak Velocity 237.4 cm/s TR Peak Gradient 22.6 mmHg Right Ventricular Systolic Press 32.6 mmHg FINDINGS Left Ventricle Normal left ventricular systolic function with no obvious regional wall motion abnormalities. Left ventricular cavity size normal. Left ventricular ejection fraction is estimated at 55 %. Right Ventricle Normal right ventricular size and function. Right ventricular systolic pressure within normal limits. Right Atrium Normal right atrial size. Left Atrium Normal left atrial size. Mitral Valve Structurally normal mitral valve. Mild mitral annular calcification. Trace mitral regurgitation. Aortic Valve Trileaflet aortic valve. No aortic valve stenosis or regurgitation. Aortic valve sclerosis. Tricuspid Valve Structurally normal tricuspid valve. Mild tricuspid regurgitation. Pulmonic Valve Trace pulmonic regurgitation. Pericardium No pericardial effusion. Aorta Normal size aortic root and proximal ascending aorta. CONCLUSIONS Normal LV size and systolic function Previewed by: Dr. Sreedhar Edmonds MD (Electronically Signed) Final Date: 19 November 2022 18:46
== END | disposition home or self-care (01) ==
LOC: RADECHMAIN 12:19
PROVIDERS: ATTEND Ophthalmology
DX: I08.1 Rheumatic disorders of both mitral and tricuspid valves (principal); H34.231 Retinal artery branch occlusion, right eye
CPT/HCPCS: 93306

== ENCOUNTER 2022-11-30 15:27 | Emergency (ER) | payer MEDICARE, OTHER ==
[2022-11-30 15:32] VITALS: BP 120/73; PULSE 70; RESP 20; TEMP 98.1
[2022-11-30] MEDS ORDERED: HYDROmorphone 1 MG/ML 1 ML SYRINGE IM STA (15:49)
[2022-11-30] MEDS ORDERED: HYDROcodone/APAP 10-325MG 1 EACH TAB PO ONE (15:49)
[2022-11-30] MEDS ORDERED: KETOROLAC 15 MG/ML 1 ML VIAL IM STA (15:49)
--- NOTE | 2022-11-30 16:01 | ED ---
Extremity Problem HPI - General Chief complaint: Extremity Problem,Nontraumatic Stated complaint: R SHOULDER PAIN Time Seen by Provider: 11/30/22 15:35 Source: patient, RN notes reviewed Mode of arrival: ambulatory Limitations: no limitations - History of Present Illness Initial comments: This is a 62-year-old male who presents to the emergency department for right shoulder pain. Patient is scheduled to have an arthroscopy with biceps tentomy next month. Reports having increasing pain, and states that he received a prescription for 10 tablets of Tylenol #3 last month that has not been effective. Patient is requesting pain medication for further management. Denies any additional injuries. Denies any fevers, chills, sore throat, cough, dyspnea, chest pain, palpitations, abdominal pain, nausea, vomiting, diarrhea, back pain, or headaches. MD Complaint: extremity pain - Related Data Home Medications Medication Instructions Recorded Confirmed Montelukast [Singulair] 10 mg PO HS 11/23/20 11/13/22 Atorvastatin Calcium [Lipitor] 80 mg PO HS 03/25/21 11/13/22 Albuterol Nebulized [Ventolin 2.5 mg INHALATION RT-Q4H PRN 08/20/21 11/13/22 Nebulized] Albuterol Sulfate [Proair Hfa] 2 puff INHALATION RT-Q4H PRN 08/20/21 11/13/22 Aspirin EC [Ecotrin Low Dose] 81 mg PO DAILY 12/13/21 11/13/22 Verapamil HCl [Verapamil ER] 120 mg PO DAILY 10/13/22 11/13/22 Acetaminophen-Codeine 300-30mg 1 tab PO Q4H PRN MDD 4 TABS 11/13/22 11/13/22 [Tylenol w/codeine #3] Arformoterol Tartrate [Brovana] 15 mcg INHALATION RT-BID 11/13/22 11/13/22 Budesonide [Pulmicort] 0.25 mg INHALATION RT-BID 11/13/22 11/13/22 Yupelri 175 Mcg/3ml Nebulizer 175 mcg INHALATION RT-DAILY 11/13/22 11/13/22 Solution Previous Rx's Medication Instructions Recorded Clopidogrel [Plavix] 75 mg PO DAILY #30 tab 11/02/20 Nitroglycerin Sl Tabs [Nitrostat] 0.4 mg SUBLINGUAL Q5M PRN #25 tab 05/18/23 Acetaminophen Tab [Tylenol] 650 mg PO Q6HR PRN tab 10/14/22 Isosorbide Mononitrate ER [Imdur] 30 mg PO BID #60 tab 10/14/22 Pantoprazole [Protonix] 40 mg PO BID 30 Days #60 tab 10/14/22 lisinopriL [Zestril] 5 mg PO DAILY #30 tab 10/14/22 Ezetimibe [Zetia] 10 mg PO DAILY #60 tab 11/16/22 Diclofenac Sodium [Voltaren] 75 mg PO BID PRN #30 tab 11/30/22 HYDROcodone/APAP 7.5-325MG [[place] 1 tab PO Q6HR PRN 3 Days #12 tab 11/30/22 7.5-325] Allergies Allergy/AdvReac Type Severity Reaction Status Date / Time levofloxacin [From Levaquin] AdvReac Nausea & Verified 11/30/22 15:32 Vomiting Review of Systems ROS Statement: Those systems with pertinent positive or pertinent negative responses have been documented in the HPI. ROS Other: All systems not noted in ROS Statement are negative. Past Medical History Past Medical History: Coronary Artery Disease (CAD), Chest Pain / Angina, COPD, Hyperlipidemia, Hypertension, Myocardial Infarction ([place]) Additional Past Medical History / Comment(s): Pt states he has hx of 3 respiratory arrests and was vented, generalized arthritis, Last Myocardial Infarction Date:: History of Any Multi-Drug Resistant Organisms: None Reported Past Surgical History: Adenoidectomy, Heart Catheterization With Stent, Hernia Repair, Joint Replacement, Orthopedic Surgery, Tonsillectomy Additional Past Surgical History / Comment(s): R inguinal hernia repair, L rotator cuff repair, bialteral total knee arthroplasties, R shoulder spur removal, teeth extracted, colonoscopy-normal. third hernia repair, left side, stents x2 2020, stents x1 11/2021 Past Anesthesia/Blood Transfusion Reactions: No Reported Reaction Date of Last Stent Placement:: 2021 Past Psychological History: No Psychological Hx Reported Smoking Status: Former smoker Past Alcohol Use History: None Reported Past Drug Use History: Marijuana - Past Family History Father Family Medical History: Cancer Additional Family Medical History / Comment(s): Father of lung cancer at the age of 62. He was a smoker. Mother Family Medical History: Cancer, Diabetes Mellitus, Hypertension Additional Family Medical History / Comment(s): Mother at age 78 from br ainste cancer. Brother(s) Additional Family Medical History / Comment(s): Patient's 1 brother with history of AAA. Patient has 4 sisters and he does not know any of their medical history. Patient's 1 son and 1 daughter living. He had one daughter that at 7 weeks old from a congenital heart. General Exam Limitations: no limitations General appearance: alert, in distress Head exam: Present: atraumatic, normocephalic, normal inspection Respiratory exam: Present: normal lung sounds bilaterally. Absent: respiratory distress, wheezes, rales, rhonchi, stridor Cardiovascular Exam: Present: regular rate, normal rhythm, normal heart sounds. Absent: systolic murmur, diastolic murmur, rubs, gallop, clicks Extremities exam: Present: other (Tenderness to palpation over the right humeral head and limited range of motion of the right upper extremity secondary to pain. No overlying deformities. 2+ radial pulses.) Neurological exam: Present: alert, oriented X3, CN II-XII intact Psychiatric exam: Present: normal affect, normal mood Skin exam: Present: warm, dry, intact, normal color. Absent: rash Course Vital Signs 11/30/22 15:30 Temperature 98.1 F Pulse Rate 70 Respiratory 20 Rate Blood Pressure 120/73 O2 Sat by Pulse 99 Oximetry Medical Decision Making - Medical Decision Making This is a 62-year-old male who presents to the emergency department for right shoulder pain. Was pt. sent in by a medical professional or institution? @ -No Did you speak to anyone other than the patient for history? @ -No Did you review nursing and triage notes? @ -Yes, and I agree, it is accurate with regards to the patient's symptoms. Were old charts reviewed? @ -No Differential Diagnosis? @ -Differential Shoulder Pain: Fracture, dislocation, contusion, rotator cuff injury, AC joint separation, sprain, arthritis, this is not meant to be an all-inclusive list. EKG interpreted by me (3pts min.)? @ -Not obtained X-rays interpreted by me (1pt min.)? @ -Not obtained CT interpreted by me (1pt min.)? @ -Not obtained U/S interpreted by me (1pt. min.)? @ -Not obtained What testing was considered but not performed? (CT, X-rays, U/S, labs)? Why? @ -None What meds were considered but not given? Why? @ -None Did you discuss the management of the patient with other professionals? @ -No Did you reconcile home meds? @ -No Was smoking cessation discussed for >3mins.? @ -No Was critical care preformed (if so, how long)? @ -No Were there social determinants of health that impacted care today? How? (Homelessness, low income, unemployed, alcoholism, drug addiction, transportation, low edu. Level, literacy, decrease access to med. care, usp, rehab)? @ -No Was there de-escalation of care discussed even if they declined? (Discuss DNR or withdrawal of care, Hospice)? @ -No What co-morbidities impacted this encounter? (DM, HTN, Smoking, COPD, CAD, Cancer, CVA, Hep., AIDS, mental health diagnosis, sleep apnea, morbid obesity)? @ -Osteoarthritis Was patient admitted / discharged? @ -Discharged. Patient's pain was well controlled in the emergency department. Given the severity of the patient's shoulder problems, I was willing to give him a prescription for a 3 day course of [place] along with diclofenac. Advised to take the [place] very sparingly when the pain is the most severe and to avoid driving or operating machinery when taking this. He is also advised to see if the diclofenac is more effective than ibuprofen, however he is instructed to avoid taking them together. He otherwise follow up with orthopedics. Undiagnosed new problem with uncertain prognosis? @ -None Drug Therapy requiring intensive monitoring for toxicity (Heparin, Nitro, Insulin, Cardizem)? @ -None Were any procedures done? @ -None Diagnosis/symptom? @ -Right shoulder pain Acute, or Chronic, or Acute on Chronic? @ -Acute on chronic Uncomplicated (without systemic symptoms) or Complicated (systemic symptoms)? @ -Uncomplicated Side effects of treatment? @ -None Exacerbation, Progression, or Severe Exacerbation] @ -Exacerbation Poses a threat to life or bodily function? @ -This is limiting his ability to use the right arm. Return precautions reviewed in depth, the patient is instructed to return to the emergency department with any new, worsening, or concerning symptoms. Patient verbalized understanding. This case was discussed in detail with the attending ED physician, Dr. Rashid. Presentation, findings, and treatment plan discussed in detail as well. Disposition Clinical Impression: Right shoulder pain Disposition: HOME SELF-CARE Instructions (If sedation given, give patient instructions): Shoulder Pain (ED) Additional Instructions: Return to the emergency department with any new, worsening, or concerning symptoms. You can try taking the diclofenac and Tylenol as needed for pain relief. Do not take any other anti-inflammatories such as ibuprofen if you choose to take the diclofenac. Take the [place] sparingly when your pain is the most severe and be aware that it may make you drowsy. Follow up with your primary care provider in 1-2 days. Prescriptions: HYDROcodone/APAP 7.5-325MG [[place] 7.5-325] 1 tab PO Q6HR PRN 3 Days #12 tab PRN Reason: Pain Diclofenac Sodium [Voltaren] 75 mg PO BID PRN #30 tab PRN Reason: Pain Is patient prescribed a controlled substance at d/c from ED?: Yes Referrals: Ava Erwin NPC [REFERRING] - 1-2 days
== END 2022-11-30 16:19 | disposition home or self-care (01) ==
LOC: EC 15:27
DX: M25.511 Pain in right shoulder (principal); I25.10 Atherosclerotic heart disease of native coronary artery without angina pectoris; J44.9 Chronic obstructive pulmonary disease, unspecified; E78.5 Hyperlipidemia, unspecified; I10 Essential (primary) hypertension; I25.2 Old myocardial infarction; F12.90 Cannabis use, unspecified, uncomplicated; Z87.891 Personal history of nicotine dependence; Z79.82 Long term (current) use of aspirin; Z79.899 Other long term (current) drug therapy; Z79.51 Long term (current) use of inhaled steroids; Z88.6 Allergy status to analgesic agent; X58.XXXA Exposure to other specified factors, initial encounter
CPT/HCPCS: 99283; 96372 ×2; J1170; J1885

== ENCOUNTER 2022-12-31 12:28 | Emergency (ER) | payer MEDICARE, OTHER ==
[2022-12-31] MEDS ORDERED: HYDROmorphone 1 MG/ML 1 ML SYRINGE IM STA (14:41)
[2022-12-31] MEDS ORDERED: KETOROLAC 15 MG/ML 1 ML VIAL IM STA (14:41)
[2022-12-31] MEDS ORDERED: LIDOCAINE 5% PATCH TOPICAL STA (14:41)
[2022-12-31 15:14] VITALS: RESP 18
--- NOTE | 2022-12-31 15:57 | ED ---
General Adult HPI - General Chief complaint: Recheck/Abnormal Lab/Rx Stated complaint: shoulder pain Time Seen by Provider: 12/31/22 13:55 Source: patient, RN notes reviewed Mode of arrival: ambulatory Limitations: no limitations - History of Present Illness Initial comments: 62-year-old male presents emergency department chief complaint of right shoulder pain. He states that he recently underwent rotator cuff surgery on Wednesday. He states that the pain has continued and has medication at home is not helping him. He states that he has [place] 7.5 at home. He denies any fever, chills. - Related Data Home Medications Medication Instructions Recorded Confirmed Montelukast [Singulair] 10 mg PO HS 11/23/20 11/13/22 Atorvastatin Calcium [Lipitor] 80 mg PO HS 03/25/21 11/13/22 Albuterol Nebulized [Ventolin 2.5 mg INHALATION RT-Q4H PRN 08/20/21 11/13/22 Nebulized] Albuterol Sulfate [Proair Hfa] 2 puff INHALATION RT-Q4H PRN 08/20/21 11/13/22 Aspirin EC [Ecotrin Low Dose] 81 mg PO DAILY 12/13/21 11/13/22 Verapamil HCl [Verapamil ER] 120 mg PO DAILY 10/13/22 11/13/22 Acetaminophen-Codeine 300-30mg 1 tab PO Q4H PRN MDD 4 TABS 11/13/22 11/13/22 [Tylenol w/codeine #3] Arformoterol Tartrate [Brovana] 15 mcg INHALATION RT-BID 11/13/22 11/13/22 Budesonide [Pulmicort] 0.25 mg INHALATION RT-BID 11/13/22 11/13/22 Yupelri 175 Mcg/3ml Nebulizer 175 mcg INHALATION RT-DAILY 11/13/22 11/13/22 Solution Previous Rx's Medication Instructions Recorded Clopidogrel [Plavix] 75 mg PO DAILY #30 tab 11/02/20 Nitroglycerin Sl Tabs [Nitrostat] 0.4 mg SUBLINGUAL Q5M PRN #25 tab 08/13/22 Acetaminophen Tab [Tylenol] 650 mg PO Q6HR PRN tab 10/14/22 Isosorbide Mononitrate ER [Imdur] 30 mg PO BID #60 tab 10/14/22 Pantoprazole [Protonix] 40 mg PO BID 30 Days #60 tab 10/14/22 lisinopriL [Zestril] 5 mg PO DAILY #30 tab 10/14/22 Ezetimibe [Zetia] 10 mg PO DAILY #60 tab 11/16/22 Diclofenac Sodium [Voltaren] 75 mg PO BID PRN #30 tab 11/30/22 HYDROcodone/APAP 7.5-325MG [[place] 1 tab PO Q6HR PRN 3 Days #12 tab 11/30/22 7.5-325] Allergies Allergy/AdvReac Type Severity Reaction Status Date / Time levofloxacin [From Levaquin] AdvReac Nausea & Verified 12/31/22 12:47 Vomiting Review of Systems ROS Statement: Those systems with pertinent positive or pertinent negative responses have been documented in the HPI. ROS Other: All systems not noted in ROS Statement are negative. Past Medical History Past Medical History: Coronary Artery Disease (CAD), Chest Pain / Angina, COPD, Hyperlipidemia, Hypertension, Myocardial Infarction ([place]) Additional Past Medical History / Comment(s): Pt states he has hx of 3 respiratory arrests and was vented, generalized arthritis, Last Myocardial Infarction Date:: History of Any Multi-Drug Resistant Organisms: None Reported Past Surgical History: Adenoidectomy, Heart Catheterization With Stent, Hernia Repair, Joint Replacement, Orthopedic Surgery, Tonsillectomy Additional Past Surgical History / Comment(s): R inguinal hernia repair, L rotator cuff repair, bialteral total knee arthroplasties, R shoulder spur removal, teeth extracted, colonoscopy-normal. third hernia repair, left side, stents x2 2020, stents x1 11/2021 Past Anesthesia/Blood Transfusion Reactions: No Reported Reaction Date of Last Stent Placement:: 2021 Past Psychological History: No Psychological Hx Reported Smoking Status: Former smoker Past Alcohol Use History: None Reported Past Drug Use History: Marijuana - Past Family History Father Family Medical History: Cancer Additional Family Medical History / Comment(s): Father of lung cancer at the age of 62. He was a smoker. Mother Family Medical History: Cancer, Diabetes Mellitus, Hypertension Additional Family Medical History / Comment(s): Mother at age 78 from brainstem cancer. Brother(s) Additional Family Medical History / Comment(s): Patient's 1 brother with history of AAA. Patient has 4 sisters and he does not know any of their medical history. Patient's 1 son and 1 daughter living. He had one daughter that at 7 weeks old from a congenital heart. General Exam Limitations: no limitations General appearance: alert, in no apparent distress Head exam: Present: atraumatic, normocephalic, normal inspection Eye exam: Present: normal appearance ENT exam: Present: normal exam, mucous membranes moist Neck exam: Present: normal inspection. Absent: tenderness, meningismus, lymphadenopathy Respiratory exam: Present: normal lung sounds bilaterally. Absent: respiratory distress, wheezes, rales, rhonchi, stridor Cardiovascular Exam: Present: regular rate, normal rhythm, normal heart sounds. Absent: systolic murmur, diastolic murmur, rubs, gallop, clicks GI/Abdominal exam: Present: soft, normal bowel sounds. Absent: distended, tenderness, guarding, rebound, rigid Extremities exam: Present: tenderness (Right shoulder), normal capillary refill, other (Radial pulses 2+, swelling to the right shoulder likely due to recent surgery, no erythema or warmth). Absent: full ROM Back exam: Present: normal inspection Neurological exam: Present: alert, oriented X3 Psychiatric exam: Present: normal affect, normal mood Skin exam: Present: warm, dry, intact, normal color. Absent: rash Course Vital Signs 12/31/22 12/31/22 12/31/22 12:45 15:13 16:03 Temperature 98.1 F 98.4 F 98.1 F Pulse Rate 63 62 65 Respiratory 20 18 18 Rate Blood Pressure 130/77 129/86 O2 Sat by Pulse 98 97 98 Oximetry Medical Decision Making - Medical Decision Making Was pt. sent in by a medical professional or institution (, PA, TOOL MARKER, urgent care, hospital, or assisted...) When possible be specific @ -No Did you speak to anyone other than the patient for history (EMS, parent, family, police, friend...)? What history was obtained from this source @ -No Did you review nursing and triage notes (agree or disagree)? Why? @ -I reviewed and agree with nursing and triage notes Were old charts reviewed (outside hosp., previous admission, EMS record, old EKG, old radiological studies, urgent care reports/EKG's, assisted records)? Report findings @ -No old charts were reviewed Differential Diagnosis (chest pain, altered mental status, abdominal pain women, abdominal pain men, vaginal bleeding, weakness, fever, dyspnea, syncope, headache, dizziness, GI bleed, back pain, seizure, CVA, palpatations, mental health, musculoskeletal)? @ -Differential Musculoskeletal Muscular strain, contusion, ligament sprain, fracture, arthritis, septic arthritis, bursitis, cellulitis, muscle spasm, nerve compression, DVT, arterial occlusion, herpes zoster, electrolyte abnormality, tumor.... This is not meant to be in all inclusive list EKG interpreted by me (3pts min.). @ -None X-rays interpreted by me (1pt min.). @ -None done CT interpreted by me (1pt min.). @ -None done U/S interpreted by me (1pt. min.). @ -None done What testing was considered but not performed or refused? (CT, X-rays, U/S, labs)? Why? @ -None What meds were considered but not given or refused? Why? @ -None Did you discuss the management of the patient with other professionals (professionals i.e. , PA, TOOL MARKER, lab, RT, psych nurse, adoption social worker, town planner, teacher, dental officer, vocational case manager)? Give summary @ -No Was smoking cessation discussed for >3mins.? @ -No Was critical care preformed (if so, how long)? @ -No Were there social determinants of health that impacted care today? How? (Homelessness, low income, unemployed, alcoholism, drug addiction, transportation, low edu. Level, literacy, decrease access to med. care, long-term, rehab)? @ -No Was there de-escalation of care discussed even if they declined (Discuss DNR or withdrawal of care, Hospice)? DNR status @ -No What co-morbidities impacted this encounter? (DM, HTN, Smoking, COPD, CAD, Cancer, CVA, ARF, Chemo, Hep., AIDS, mental health diagnosis, sleep apnea, morbid obesity)? @ -None Was patient admitted / discharged? Hospital course, mention meds given and route, prescriptions, significant lab abnormalities, going to OR and other pertinent info. @ -Discharged. Patient presented emergency department chief complaint of right shoulder pain following a rotator cuff repair on Wednesday. He states that his pain medication at home is not working. He states that the pain is been consistent since his surgery. He has [place] 7.5 at home which she reports is not helping. There is some swelling to the right shoulder without erythema or warmth. Patient was given IM pain medication with improvement in his symptoms. Patient will be discharged home with close follow-up to his surgeon. Patient stable at time of discharge. Case discussed with Dr. Matthew Undiagnosed new problem with uncertain prognosis? @ -No Drug Therapy requiring intensive monitoring for toxicity (Heparin, Nitro, Insulin, Cardizem)? @ -No Were any procedures done? @ -No Diagnosis/symptom? @ -[right shoulder pain post rotator cuff surgery Acute, or Chronic, or Acute on Chronic? @ -acute Uncomplicated (without systemic symptoms) or Complicated (systemic symptoms)? @ -uncomplicated Side effects of treatment? @ -No Exacerbation, Progression, or Severe Exacerbation? @ -No Poses a threat to life or bodily function? How? (Chest pain, [place], [place], pneumonia, PE, COPD, DKA, ARF, appy, cholecystitis, CVA, Diverticulitis, Homicidal, Suicidal, threat to staff... and all critical care pts) @ -No Disposition Clinical Impression: Right shoulder pain, S/P rotator cuff surgery Disposition: HOME SELF-CARE Condition: Stable Is patient prescribed a controlled substance at d/c from ED?: No Referrals: Stanford Cunningham MD [Primary Care Provider] - 1-2 days
[2022-12-31 16:13] VITALS: BP 129/86; PULSE 65; TEMP 98.1
== END 2022-12-31 16:03 | disposition home or self-care (01) ==
LOC: EC 12:28
DX: M25.511 Pain in right shoulder (principal); I25.10 Atherosclerotic heart disease of native coronary artery without angina pectoris; J44.9 Chronic obstructive pulmonary disease, unspecified; E78.5 Hyperlipidemia, unspecified; I10 Essential (primary) hypertension; I25.2 Old myocardial infarction; Z87.891 Personal history of nicotine dependence; F12.90 Cannabis use, unspecified, uncomplicated; Z79.899 Other long term (current) drug therapy; Z88.8 Allergy status to other drugs, medicaments and biological substances; Z79.82 Long term (current) use of aspirin; Z79.51 Long term (current) use of inhaled steroids; Z88.1 Allergy status to other antibiotic agents; Z96.611 Presence of right artificial shoulder joint
CPT/HCPCS: 99283; 96372 ×2; J1170; J1885

== ENCOUNTER 2023-01-07 01:13 | Observation (INO) | payer MEDICARE, OTHER ==
[2023-01-07] MEDS ORDERED: SODIUM CHLORIDE 0.9% 500 ML 500 ML IV STA (01:22)
[2023-01-07] MEDS ORDERED: NITROGLYCERIN OINT 1 INCH/GM PACKET TOPICAL STA (01:22)
[2023-01-07 01:53] LABS: Basophils # (A) 0.1 k/uL (0-0.2); Basophils % (A) 0 %; Eosinophils # (A) 0.7 k/uL (0-0.7); Eosinophils % (A) 6 %; HCT 42.7 % (39.0-53.0); HGB 14.8 gm/dL (13.0-17.5); Lymphocytes # (A) 3.2 k/uL (1.0-4.8); Lymphocytes % (A) 25 %; MCH 30.5 pg (25.0-35.0); MCHC 34.6 g/dL (31.0-37.0); MCV 88.2 fL (80.0-100.0); Mean Platelet Volume 8.2; Monocytes # (A) 0.6 k/uL (0-1.0); Monocytes % (A) 5 %; Neutrophils # (A) 7.8 k/uL (1.3-7.7); Neutrophils % (A) 62 %; Platelet Count 236 k/uL (150-450); RBC 4.84 m/uL (4.30-5.90); RDW 12.8 % (11.5-15.5); WBC 12.5 k/uL (3.8-10.6)
[2023-01-07 02:09] LABS: INR 0.9 (<1.2); Partial Thromboplastin Time 25.3 sec (22.0-30.0)
[2023-01-07 02:42] LABS: ALT 25 U/L (4-49); African American GFR (CKD) >90 (>60 ml/min/1.73 sqM); Anion Gap 12 mmol/L; Blood Urea Nitrogen 19 mg/dL (9-20); Calcium 9.3 mg/dL (8.4-10.2); Carbon Dioxide 19 mmol/L (22-30); Chloride 103 mmol/L (98-107); Glucose 103 mg/dL (74-99); Lipase 53 U/L (23-300); Non-African American GFR(CKD) >90 (>60 ml/min/1.73 sqM); Sodium 134 mmol/L (137-145); Total Bilirubin 0.7 mg/dL (0.2-1.3)
[2023-01-07 03:01] LABS: AST 34 U/L (17-59); Alkaline Phosphatase 93 U/L (38-126); Magnesium 2.1 mg/dL (1.6-2.3); Total Protein 6.9 g/dL (6.3-8.2)
[2023-01-07] MEDS ORDERED: HEPARIN SODIUM 1,000 UN/ML (10ML VL) IV PRN (03:39)
[2023-01-07] MEDS ORDERED: HEPARIN SODIUM 1,000 UN/ML (10ML VL) IV ONE (03:39)
[2023-01-07] MEDS ORDERED: NALOXONE 0.4 MG/ML 1 ML VIAL IV PRN (03:39)
[2023-01-07] MEDS ORDERED: HEPARIN SOD,PORK IN 0.45% NACL 25,000 UNIT in 0.45% NACL 1 250ML.BAG IV SCH (03:45)
--- NOTE | 2023-01-07 03:51 | ED ---
General Adult HPI - General Chief complaint: Chest Pain Stated complaint: Chest pain Time Seen by Provider: 01/07/23 01:16 Source: patient, RN notes reviewed, old records reviewed Mode of arrival: EMS Limitations: no limitations - History of Present Illness Initial comments: Patient is a 62-year-old male presents emergency department plan of chest pain. Some atypical type chest pain with pain radiating from the center of his chest towards left shoulder. Currently is symptom-free as the pain did resolve with nitroglycerin tablets as well as a small dose of fentanyl from the EMS. States pain is 0 out of 10. Earlier was worse. Started approximately 11 PM. Denies any current symptoms. States he did feel diaphoretic when it first started but that has resolved as well. Denies nausea or vomiting. His no other acute complaints at this time. Is resting comfortably. Did recently have a right shoulder cuff surgery. Presents for further evaluation. Does have cardiac history with history of [place] as well as cardiac stents. - Related Data Home Medications Medication Instructions Recorded Confirmed Montelukast [Singulair] 10 mg PO HS 11/23/20 11/13/22 Atorvastatin Calcium [Lipitor] 80 mg PO HS 03/25/21 11/13/22 Albuterol Nebulized [Ventolin 2.5 mg INHALATION RT-Q4H PRN 08/20/21 11/13/22 Nebulized] Albuterol Sulfate [Proair Hfa] 2 puff INHALATION RT-Q4H PRN 08/20/21 11/13/22 Aspirin EC [Ecotrin Low Dose] 81 mg PO DAILY 12/13/21 11/13/22 Verapamil HCl [Verapamil ER] 120 mg PO DAILY 10/13/22 11/13/22 Acetaminophen-Codeine 300-30mg 1 tab PO Q4H PRN MDD 4 TABS 11/13/22 11/13/22 [Tylenol w/codeine #3] Arformoterol Tartrate [Brovana] 15 mcg INHALATION RT-BID 11/13/22 11/13/22 Budesonide [Pulmicort] 0.25 mg INHALATION RT-BID 11/13/22 11/13/22 Yupelri 175 Mcg/3ml Nebulizer 175 mcg INHALATION RT-DAILY 11/13/22 11/13/22 Solution Previous Rx's Medication Instructions Recorded Clopidogrel [Plavix] 75 mg PO DAILY #30 tab 11/02/20 Nitroglycerin Sl Tabs [Nitrostat] 0.4 mg SUBLINGUAL Q5M PRN #25 tab 08/13/22 Acetaminophen Tab [Tylenol] 650 mg PO Q6HR PRN tab 10/14/22 Isosorbide Mononitrate ER [Imdur] 30 mg PO BID #60 tab 10/14/22 Pantoprazole [Protonix] 40 mg PO BID 30 Days #60 tab 10/14/22 lisinopriL [Zestril] 5 mg PO DAILY #30 tab 10/14/22 Ezetimibe [Zetia] 10 mg PO DAILY #60 tab 11/16/22 Diclofenac Sodium [Voltaren] 75 mg PO BID PRN #30 tab 11/30/22 HYDROcodone/APAP 7.5-325MG [Perkins 1 tab PO Q6HR PRN 3 Days #12 tab 11/30/22 7.5-325] Allergies Allergy/AdvReac Type Severity Reaction Status Date / Time levofloxacin [From Levaquin] AdvReac Nausea & Verified 12/31/22 12:47 Vomiting Review of Systems ROS Statement: Those systems with pertinent positive or pertinent negative responses have been documented in the HPI. Review of Systems: CONST: Denies fever EYES: Denies blurry vision ENT: Denies nasal congestion C/V: Endorses chest pain RESP: Denies shortness of breath GI: Denies abdominal pain : Denies dysuria SKIN: Denies rash. MSK: Denies joint pain. NEURO: Denies headache ROS Other: All systems not noted in ROS Statement are negative. Past Medical History Past Medical History: Coronary Artery Disease (CAD), Chest Pain / Angina, COPD, Hyperlipidemia, Hypertension, Myocardial Infarction ([place]) Additional Past Medical History / Comment(s): Pt states he has hx of 3 respiratory arrests and was vented, generalized arthritis, Last Myocardial Infarction Date:: History of Any Multi-Drug Resistant Organisms: None Reported Past Surgical History: Adenoidectomy, Heart Catheterization With Stent, Hernia Repair, Joint Replacement, Orthopedic Surgery, Tonsillectomy Additional Past Surgical History / Comment(s): R inguinal hernia repair, L rotator cuff repair, bialteral total knee arthroplasties, R shoulder spur removal, teeth extracted, colonoscopy-normal. third hernia repair, left side, stents x2 2020, stents x1 11/2021 Past Anesthesia/Blood Transfusion Reactions: No Reported Reaction Date of Last Stent Placement:: 2021 Past Psychological History: No Psychological Hx Reported Smoking Status: Former smoker Past Alcohol Use History: None Reported Past Drug Use History: Marijuana - Past Family History Father Family Medical History: Cancer Additional Family Medical History / Comment(s): Father of lung cancer at the age of 62. He was a smoker. Mother Family Medical History: Cancer, Diabetes Mellitus, Hypertension Additional Family Medical History / Comment(s): Mother at age 78 from brainstem cancer. Brother(s) Additional Family Medical History / Comment(s): Patient's 1 brother with history of AAA. Patient has 4 sisters and he does not know any of their medical history. Patient's 1 son and 1 daughter living. He had one daughter that at 7 weeks old from a congenital heart. General Exam - General Exam Comments Initial Comments: General: Appears in no acute distress. HEAD: Normal with no signs of head trauma. EYES: PERRLA, EOMI, conjunctiva normal, no discharge. ENT: Hearing grossly intact, normal oropharynx. RESPIRATORY: Clear breath sounds bilaterally. No wheezes, rales, or rhonchi. C/V: Regular rate and rhythm. S1 and S2 auscultated, no edema, peripheral pulses 2+ and intact throughout ABD: Abd is soft, nontender, nondistended EXT: Reduced range of motion and tenderness over right shoulder secondary to recent surgery. SKIN: No rashes or lesions observed on exposed skin. Postsurgical scars over his right shoulder. NEURO: Oriented 4. Limitations: no limitations Course Vital Signs 01/07/23 01/07/23 01/07/23 01:15 01:36 03:26 Temperature 98.7 F Pulse Rate 68 60 Respiratory 18 16 Rate Blood Pressure 154/92 120/64 134/78 O2 Sat by Pulse 98 97 Oximetry 01/07/23 01/07/23 06:00 07:42 Temperature 97.7 F Pulse Rate 58 L 68 Respiratory 18 18 Rate Blood Pressure 128/96 118/90 O2 Sat by Pulse 95 97 Oximetry Medical Decision Making - Medical Decision Making Was pt. sent in by a medical professional or institution (, PA, GEOLOGY SCIENTIST, urgent care, hospital, or shelter...) When possible be specific @ -No Did you speak to anyone other than the patient for history (EMS, parent, family, police, friend...)? What history was obtained from this source @ -No Did you review nursing and triage notes (agree or disagree)? Why? @ -I reviewed and agree with nursing and triage notes Were old charts reviewed (outside hosp., previous admission, EMS record, old EKG, old radiological studies, urgent care reports/EKG's, shelter records)? Report findings @ -Old charts reviewed. Differential Diagnosis (chest pain, altered mental status, abdominal pain women, abdominal pain men, vaginal bleeding, weakness, fever, dyspnea, syncope, headache, dizziness, GI bleed, back pain, seizure, CVA, palpatations, mental health, musculoskeletal)? @ -Differential Chest Pain: Stable Angina, Unstable Angina, STEMI, NSTEMI Aortic Dissection, Pneumothorax, Musculoskeletal, Esophageal Spasm GERD, Cholecystitis, Pancreatitis, Zoster, this is not meant to be an all-inclusive list. EKG interpreted by me (3pts min.). @ -As above X-rays interpreted by me (1pt min.). @ -Chest x-ray reveals no obvious acute cardio process. CT interpreted by me (1pt min.). @ -None done U/S interpreted by me (1pt. min.). @ -None done What testing was considered but not performed or refused? (CT, X-rays, U/S, labs)? Why? @ -None What meds were considered but not given or refused? Why? @ -None Did you discuss the management of the patient with other professionals (professionals i.e. , PA, GEOLOGY SCIENTIST, lab, RT, psych nurse, group social worker, acoustical tile patternmaker, teacher, field artillery officer, egg caser)? Give summary @ -I spoke with the admitting team, VALERIA Poe of [facility] who accepted the admission. Was smoking cessation discussed for >3mins.? @ -No Was critical care preformed (if so, how long)? @ -Yes, 35 minutes. Were there social determinants of health that impacted care today? How? (Homelessness, low income, unemployed, alcoholism, drug addiction, transportation, low edu. Level, literacy, decrease access to med. care, chcf, rehab)? @ -No Was there de-escalation of care discussed even if they declined (Discuss DNR or withdrawal of care, Hospice)? DNR status @ -No What co-morbidities impacted this encounter? (DM, HTN, Smoking, COPD, CAD, Cancer, CVA, ARF, Chemo, Hep., AIDS, mental health diagnosis, sleep apnea, morbid obesity)? @ -CAD, prior cardiac stents Was patient admitted / discharged? Hospital course, mention meds given and route, prescriptions, significant lab abnormalities, going to OR and other pertinent info. @ -Based on the patient's presentation and physical exam, I'm concerned for cardio pulmonary etiology for the patient's current chest pain. He currently is asymptomatic but pain was relieved with nitro as well as fentanyl and route to the hospital. He has already received 324 mg of aspirin. He is resting comfortable at this time. We will continue with nitro paste. We will obtain cardiac labs. He was in agreement with this plan. Chest x-ray unremarkable. EKG shows no signs of acute ischemia. Patient's laboratory studies are all within acceptable limits. Troponin undetectable. On reevaluation, patient remains pain-free. Due to the atypical nature of this chest pain, I did recommend we start him on a heparin drip empirically for possible unstable angina/ACS and patient was in agreement with this plan. Currently symptom-free, and patient's symptoms resolved with nitro. He has extensive cardiac history. He was in agreement with this plan. He will be admitted at this time. Cardiology consulted. I spoke with the admitting team, VALERIA Poe of [facility] who accepted the admission. Undiagnosed new problem with uncertain prognosis? @ -No Drug Therapy requiring intensive monitoring for toxicity (Heparin, Nitro, Insulin, Cardizem)? @ -Heparin Were any procedures done? @ -No Diagnosis/symptom?. @ -Chest pain Acute, or Chronic, or Acute on Chronic? @ -Acute Uncomplicated (without systemic symptoms) or Complicated (systemic symptoms)? @ -Complicated Side effects of treatment? @ -No Exacerbation, Progression, or Severe Exacerbation? @ -No Poses a threat to life or bodily function? How? (Chest pain, [place], [place], pneumonia, PE, COPD, DKA, ARF, appy, cholecystitis, CVA, Diverticulitis, Homicidal, Suicidal, threat to staff... and all critical care pts) @ -Yes - Lab Data Result diagrams: 01/07/23 01:18 01/07/23 01:18 Lab Results 01/07/23 01/07/23 01/07/23 Range/Units 01:18 01:18 01:18 WBC 12.5 H (3.8-10.6) k/uL RBC 4.84 (4.30-5.90) m/uL Hgb 14.8 (13.0-17.5) gm/dL Hct 42.7 (39.0-53.0) % MCV 88.2 (80.0-100.0) fL MCH 30.5 (25.0-35.0) pg MCHC 34.6 (31.0-37.0) g/dL RDW 12.8 (11.5-15.5) % Plt Count 236 (150-450) k/uL MPV 8.2 Neutrophils % 62 % Lymphocytes % 25 % Monocytes % 5 % Eosinophils % 6 % Basophils % 0 % Neutrophils # 7.8 H (1.3-7.7) k/uL Lymphocytes # 3.2 (1.0-4.8) k/uL Monocytes # 0.6 (0-1.0) k/uL Eosinophils # 0.7 (0-0.7) k/uL Basophils # 0.1 (0-0.2) k/uL PT 10.0 (9.0-12.0) sec INR 0.9 (<1.2) APTT 25.3 (22.0-30.0) sec Sodium 134 L (137-145) mmol/L Potassium 5.0 (3.5-5.1) mmol/L Chloride 103 (98-107) mmol/L Carbon Dioxide 19 L (22-30) mmol/L Anion Gap 12 mmol/L BUN 19 (9-20) mg/dL Creatinine 0.86 (0.66-1.25) mg/dL Est GFR (CKD-EPI)AfAm >90 (>60 ml/min/1.73 sqM) Est GFR (CKD-EPI)NonAf >90 (>60 ml/min/1.73 sqM) Glucose 103 H (74-99) mg/dL Calcium 9.3 (8.4-10.2) mg/dL Magnesium 2.1 (1.6-2.3) mg/dL Total Bilirubin 0.7 (0.2-1.3) mg/dL AST 34 (17-59) U/L ALT 25 (4-49) U/L Alkaline Phosphatase 93 (38-126) U/L Troponin I (0.000-0.034) ng/mL Total Protein 6.9 (6.3-8.2) g/dL Albumin 4.0 (3.5-5.0) g/dL Lipase 53 (23-300) U/L 01/07/23 Range/Units 01:18 WBC (3.8-10.6) k/uL RBC (4.30-5.90) m/uL Hgb (13.0-17.5) gm/dL Hct (39.0-53.0) % MCV (80.0-100.0) fL MCH (25.0-35.0) pg MCHC (31.0-37.0) g/dL RDW (11.5-15.5) % Plt Count (150-450) k/uL MPV Neutrophils % % Lymphocytes % % Monocytes % % Eosinophils % % Basophils % % Neutrophils # (1.3-7.7) k/uL Lymphocytes # (1.0-4.8) k/uL Monocytes # (0-1.0) k/uL Eosinophils # (0-0.7) k/uL Basophils # (0-0.2) k/uL PT (9.0-12.0) sec INR (<1.2) APTT (22.0-30.0) sec Sodium (137-145) mmol/L Potassium (3.5-5.1) mmol/L Chloride (98-107) mmol/L Carbon Dioxide (22-30) mmol/L Anion Gap mmol/L BUN (9-20) mg/dL Creatinine (0.66-1.25) mg/dL Est GFR (CKD-EPI)AfAm (>60 ml/min/1.73 sqM) Est GFR (CKD-EPI)NonAf (>60 ml/min/1.73 sqM) Glucose (74-99) mg/dL Calcium (8.4-10.2) mg/dL Magnesium (1.6-2.3) mg/dL Total Bilirubin (0.2-1.3) mg/dL AST (17-59) U/L ALT (4-49) U/L Alkaline Phosphatase (38-126) U/L Troponin I <0.012 (0.000-0.034) ng/mL Total Protein (6.3-8.2) g/dL Albumin (3.5-5.0) g/dL Lipase (23-300) U/L - EKG Data -: EKG Interpreted by Me EKG Comments: 12-lead Electrocardiogram Interpretation Note EKG was reviewed and interpreted by myself. 12-lead ECG performed at 0118 is int erpreted by me as revealing normal sinus rhythm at a rate of 68 beats per minute. Left axis deviation. LA interval is 171 ms, QRS duration is 90 ms, QTc is 381 ms.. There were no ST or T wave abnormalities to suggest myocardial ischemia or injury. R wave progression across the precordium was satisfactory. By my interpretation this EKG is non-diagnostic for acute ischemia. Critical Care Time Critical Care Time: Yes Total Critical Care Time: 35 Disposition Clinical Impression: Chest pain Disposition: ADMITTED IP TO THIS [facility] Condition: Stable Time of Disposition: 03:36
--- NOTE | 2023-01-07 05:05 | XR ---
EXAM: XR Chest, 1 View CLINICAL HISTORY: ITS.REASON XR Reason: Chest Pain TECHNIQUE: Frontal view of the chest. COMPARISON: 2 views of the chest November 13, 2022 IMPRESSION: 1. No acute cardiopulmonary abnormality.
[2023-01-07 06:50] VITALS: RESP 18
[2023-01-07 07:44] VITALS: TEMP 97.7
--- NOTE | 2023-01-07 08:22 | P.CRDCN ---
History of Present Illness Consult date: 01/07/23 History of present illness: HISTORY OF PRESENTING ILLNESS 62-year-old male with past medical history of CAD status post PCI to RCA and LAD. He has a moderate disease and LCx which was hemodynamically negative with FFR assessment. He also has a microvascular disease and coronary vasospasm. His other medical history includes hypertension dyslipidemia, COPD and former tobacco user. Currently he smokes marijuana. He denies any tobacco smoking. Patient recently underwent right shoulder rotator cuff surgery and is currently postop. Yesterday patient experienced substernal chest pain for which he took 2 sublingual nitroglycerin and this resolved chest pain. Patient reported that he checked his best pressure during these events and it was elevated. His blood pressure came down after taking nitroglycerin. Since presentation to ER he has not had any recurrence. His initial 2 troponins have been negative. Other labs are within normal limits. DIAGNOSTICS EKG reveals sinus rhythm with no significant ST-T wave changes concerning for ischemia. Chest xray no acute cardiopulmonary process. PRIOR CARDIAC TESTING Cardiac catheterization in July 2022 showed patent stents to LAD and RCA, moderate nonobstructive disease and LCx. Lexiscan stress in July 2022 showed mild reversible small size perfusion defect in the apical and inferior wall. Echocardiogram from October 2022 showed normal LVEF and no major valvular abnormalities REVIEW OF SYSTEMS 14 point review of system is negative except what is mentioned above in HPI. PHYSICAL EXAMINATION Vital signs reviewed. Head: Normocephalic. Eyes: Sclerae nonicteric. Neck: Brisk carotid upstroke, no jugular venous distention. Lungs: Clear to auscultation. Heart: Regular rate and rhythm, S1-S2, no S3, no murmur or rub. Abdomen: Soft nontender, positive bowel sounds no organomegaly. Extremities: No edema, intact distal pulses. ASSESSMENT Atypical chest pain, rule out of acute coronary syndrome. History of coronary vasospasm and microvascular disease CAD status post PCI to RCA and LAD with patent stents. 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 PLAN I feel patient's symptoms are most likely related to microvascular disease and coronary vasospasm. His symptoms sound somewhat like stable angina. I do not see any need for invasive workup or a stress test at this time. We will resume his home medications which includes Imdur 30 mg twice a day, verapamil 120 mg, lisinopril 5 mg, aspirin 81 mg, atorvastatin 80 mg. Repeat 1 more troponin. If negative patient is okay to be discharged from cardiac standpoint Outpatient follow-up with Dr. Torres Past Medical History Past Medical History: Coronary Artery Disease (CAD), Chest Pain / Angina, COPD, Hyperlipidemia, Hypertension, Myocardial Infarction ([place]) Additional Past Medical History / Comment(s): Pt states he has hx of 3 respiratory arrests and was vented, generalized arthritis, Last Myocardial Infarction Date:: History of Any Multi-Drug Resistant Organisms: None Reported Past Surgical History: Adenoidectomy, Heart Catheterization With Stent, Hernia Repair, Joint Replacement, Orthopedic Surgery, Tonsillectomy Additional Past Surgical History / Comment(s): R inguinal hernia repair, L rotator cuff repair, bialteral total knee arthroplasties, R shoulder spur removal, teeth extracted, colonoscopy-normal. third hernia repair, left side, stents x2 2020, stents x1 11/2021 Past Anesthesia/Blood Transfusion Reactions: No Reported Reaction Date of Last Stent Placement:: 2021 Past Psychological History: No Psychological Hx Reported Smoking Status: Former smoker Past Alcohol Use History: None Reported Past Drug Use History: Marijuana - Past Family History Father Family Medical History: Cancer Additional Family Medical History / Comment(s): Father of lung cancer at the age of 62. He was a smoker. Mother Family Medical History: Cancer, Diabetes Mellitus, Hypertension Additional Family Medical History / Comment(s): Mother at age 78 from brainstem cancer. Brother(s) Additional Family Medical History / Comment(s): Patient's 1 brother with history of AAA. Patient has 4 sisters and he does not know any of their medical histo ry. Patient's 1 son and 1 daughter living. He had one daughter that at 7 weeks old from a congenital heart. Medications and Allergies Home Medications Medication Instructions Recorded Confirmed Type Clopidogrel [Plavix] 75 mg PO DAILY #30 tab 11/02/20 11/13/22 Rx Montelukast [Singulair] 10 mg PO HS 11/23/20 11/13/22 History Atorvastatin Calcium [Lipitor] 80 mg PO HS 03/25/21 11/13/22 History Albuterol Nebulized [Ventolin 2.5 mg INHALATION RT-Q4H PRN 08/20/21 11/13/22 History Nebulized] Albuterol Sulfate [Proair Hfa] 2 puff INHALATION RT-Q4H PRN 08/20/21 11/13/22 History Aspirin EC [Ecotrin Low Dose] 81 mg PO DAILY 12/13/21 11/13/22 History Nitroglycerin Sl Tabs [Nitrostat] 0.4 mg SUBLINGUAL Q5M PRN #25 tab 08/13/22 11/13/22 Rx Verapamil HCl [Verapamil ER] 120 mg PO DAILY 10/13/22 11/13/22 History Isosorbide Mononitrate ER [Imdur] 30 mg PO BID #60 tab 10/14/22 11/13/22 Rx Pantoprazole [Protonix] 40 mg PO BID 30 Days #60 tab 10/14/22 11/13/22 Rx lisinopriL [Zestril] 5 mg PO DAILY #30 tab 10/14/22 11/13/22 Rx Arformoterol Tartrate [Brovana] 15 mcg INHALATION RT-BID 11/13/22 11/13/22 History Budesonide [Pulmicort] 0.25 mg INHALATION RT-BID 11/13/22 11/13/22 History Yupelri 175 Mcg/3ml Nebulizer 175 mcg INHALATION RT-DAILY 11/13/22 11/13/22 History Solution Ezetimibe [Zetia] 10 mg PO DAILY #60 tab 11/16/22 Rx Cyclobenzaprine [Flexeril] 10 mg PO TID PRN 01/07/23 01/07/23 History Ondansetron [Zofran] 4 mg PO Q8HR PRN 01/07/23 01/07/23 History Promethazine [Phenergan] 25 mg PO DAILY PRN 01/07/23 01/07/23 History Triamcinolone 0.5% Cream [Kenalog 1 applic TOPICAL BID PRN 01/07/23 01/07/23 History 0.5% Cream] oxyCODONE-APAP 7.5-325MG [Percocet 1 tab PO Q4HR PRN 01/07/23 01/07/23 History 7.5-325 mg] Allergies Allergy/AdvReac Type Severity Reaction Status Date / Time levofloxacin [From Levaquin] AdvReac Nausea & Verified 10/05/23 12:47 Vomiting Physical Exam Vitals: Vital Signs Temp Pulse Resp BP Pulse Ox 01/07/23 07:42 97.7 F 68 18 118/90 97 01/07/23 06:00 58 L 18 128/96 95 01/07/23 03:26 60 16 134/78 97 01/07/23 01:36 120/64 01/07/23 01:15 98.7 F 68 18 154/92 98 Intake and Output 01/06/23 01/07/23 01/07/23 22:59 06:59 14:59 Other: Weight 87.09 kg Results 01/07/23 01:18 01/07/23 01:18 Cardiac Enzymes 01/07/23 01/07/23 01/07/23 Range/Units 01:18 01:18 06:48 AST 34 (17-59) U/L Troponin I <0.012 <0.012 (0.000-0.034) ng/mL Coagulation 01/07/23 Range/Units 01:18 PT 10.0 (9.0-12.0) sec APTT 25.3 (22.0-30.0) sec CBC 01/07/23 Range/Units 01:18 WBC 12.5 H (3.8-10.6) k/uL RBC 4.84 (4.30-5.90) m/uL Hgb 14.8 (13.0-17.5) gm/dL Hct 42.7 (39.0-53.0) % Plt Count 236 (150-450) k/uL Comprehensive Metabolic Panel 01/07/23 Range/Units 01:18 Sodium 134 L (137-145) mmol/L Potassium 5.0 (3.5-5.1) mmol/L Chloride 103 (98-107) mmol/L Carbon Dioxide 19 L (22-30) mmol/L BUN 19 (9-20) mg/dL Creatinine 0.86 (0.66-1.25) mg/dL Glucose 103 H (74-99) mg/dL Calcium 9.3 (8.4-10.2) mg/dL AST 34 (17-59) U/L ALT 25 (4-49) U/L Alkaline Phosphatase 93 (38-126) U/L Total Protein 6.9 (6.3-8.2) g/dL Albumin 4.0 (3.5-5.0) g/dL Current Medications Generic Name Dose Route Start Last Admin Trade Name Freq PRN Reason Stop Dose Admin Heparin Sodium (Porcine) 0 unit 01/07/23 03:39 Heparin Sodium 1,000 Un/Ml (10ml Vl) IV PER PROTOCOL PRN Low PTT Protocol Heparin Sodium/Sodium Chloride 250 mls @ 10.007 mls/hr 01/07/23 03:45 01/07/23 04:05 25,000 unit/ Sodium Chloride IV 11.49 units/kg/hr .Q24H PRASHANT 10.007 mls/hr Administration Protocol 11.49 UNITS/KG/HR Naloxone HCl 0.2 mg 01/07/23 03:39 Naloxone 0.4 Mg/Ml 1 Ml Vial IV Q2M PRN Opioid Reversal Intake and Output 01/06/23 01/07/23 01/07/23 22:59 06:59 14:59 Other: Weight 87.09 kg 01/07/23 01:18 01/07/23 01:18
[2023-01-07] MEDS ORDERED: lisinopriL 5 MG TAB PO SCH (09:00)
[2023-01-07] MEDS ORDERED: ISOSORBIDE MONONITRATE ER 30 MG TAB.ER.24H PO SCH (09:00)
[2023-01-07] MEDS ORDERED: ASPIRIN 81 MG PO SCH (09:00)
[2023-01-07] MEDS ORDERED: VERAPAMIL SR 120 MG TABLET.ER PO SCH (09:00)
[2023-01-07] MEDS ORDERED: oxyCODONE-APAP 7.5-325MG 1 EACH TAB PO PRN (09:22)
[2023-01-07] MEDS ORDERED: ONDANSETRON 4 MG TAB PO PRN (09:22)
[2023-01-07] MEDS ORDERED: CYCLOBENZAPRINE 10 MG TAB PO PRN (09:22)
[2023-01-07] MEDS ORDERED: ALBUTEROL NEBULIZED 2.5 MG/3 ML INHALATION PRN (09:22)
[2023-01-07] MEDS ORDERED: ALBUTEROL HFA INHALER INHALATION PRN (09:22)
[2023-01-07] MEDS ORDERED: NITROGLYCERIN SL TABS 0.4 MG TAB SUBLINGUAL PRN (09:22)
[2023-01-07] MEDS ORDERED: EZETIMIBE 10 MG TAB PO SCH (09:30)
[2023-01-07] MEDS ORDERED: CLOPIDOGREL 75 MG TAB PO SCH (09:30)
[2023-01-07] MEDS ORDERED: PANTOPRAZOLE 40 MG TABLET PO SCH (09:30)
--- NOTE | 2023-01-07 12:34 | P.HPIM ---
History of Present Illness H&P Date: 01/07/23 Chief Complaint: Chest pain * 62-year-old gentleman with past medical history of coronary artery disease with recent PCI to RCA, LAD in July 2022, history of dyslipidemia, COPD, nicotine use, hypertension presented to the emergency department with complains of chest pain. * Patient follows up with cardiology outpatient, workup initiated in ER included serial troponins and EKG and cardiology consultation * Patient had initial EKG done which showed sinus rhythm no significant ST segment changes * Initial workup done including a chest x-ray was within normal limits * Blood work obtained in ER included hematology which were WBC 12.5 hemoglobin 14.8 platelet count of 236. INR of 0.9 * Patient was placed in observation unit and worked up for ACS REVIEW OF SYSTEMS: Chest pain CONSTITUTIONAL: No fever, no malaise, no fatigue. HEENT: No recent visual problems or hearing problems. Denied any sore throat. CARDIOVASCULAR: No chest pain, orthopnea, PND, no palpitations, no syncope. PULMONARY: No shortness of breath, no cough, no hemoptysis. GASTROINTESTINAL: No diarrhea, no nausea, no vomiting, no abdominal pain. NEUROLOGICAL: No headaches, no weakness, no numbness. HEMATOLOGICAL: Denies any bleeding or petechiae. GENITOURINARY: Denies any burning micturition, frequency, or urgency. MUSCULOSKELETAL/RHEUMATOLOGICAL: Denies any joint pain, swelling, or any muscle pain. ENDOCRINE: Denies any polyuria or polydipsia. PHYSICAL EXAMINATION: GENERAL: The patient is alert and oriented x3, not in any acute distress. Well developed, well nourished. HEENT: Pupils are round and equally reacting to light. EOMI. No scleral icterus. No conjunctival pallor. Normocephalic, atraumatic. No pharyngeal erythema. No thyromegaly. CARDIOVASCULAR: S1 and S2 present. No murmurs, rubs, or gallops. PULMONARY: Chest is clear to auscultation, no wheezing or crackles. ABDOMEN: Soft, nontender, nondistended, normoactive bowel sounds. No palpable organomegaly. MUSCULOSKELETAL: No joint swelling or deformity. EXTREMITIES: No cyanosis, clubbing, or pedal edema. NEUROLOGICAL: Gross neurological examination did not reveal any focal deficits. SKIN: No rashes. Past Medical History Past Medical History: Coronary Artery Disease (CAD), Chest Pain / Angina, COPD, Hyperlipidemia, Hypertension, Myocardial Infarction ([place]) Additional Past Medical History / Comment(s): Pt states he has hx of 3 respiratory arrests and was vented, generalized arthritis, Last Myocardial Infarction Date:: History of Any Multi-Drug Resistant Organisms: None Reported Past Surgical History: Adenoidectomy, Heart Catheterization With Stent, Hernia Repair, Joint Replacement, Orthopedic Surgery, Tonsillectomy Additional Past Surgical History / Comment(s): R inguinal hernia repair, L rotator cuff repair, bialteral total knee arthroplasties, R shoulder spur removal, teeth extracted, colonoscopy-normal. third hernia repair, left side, stents x2 2020, stents x1 11/2021 Past Anesthesia/Blood Transfusion Reactions: No Reported Reaction Date of Last Stent Placement:: 2021 Past Psychological History: No Psychological Hx Reported Smoking Status: Former smoker Past Alcohol Use History: None Reported Past Drug Use History: Marijuana - Past Family History Father Family Medical History: Cancer Additional Family Medical History / Comment(s): Father of lung cancer at the age of 62. He was a smoker. Mother Family Medical History: Cancer, Diabetes Mellitus, Hypertension Additional Family Medical History / Comment(s): Mother at age 78 from brainstem cancer. Brother(s) Additional Family Medical History / Comment(s): Patient's 1 brother with history of AAA. Patient has 4 sisters and he does not know any of their medical history. Patient's 1 son and 1 daughter living. He had one daughter that at 7 weeks old from a congenital heart. Medications and Allergies Home Medications Medication Instructions Recorded Confirmed Type Clopidogrel [Plavix] 75 mg PO DAILY #30 tab 11/02/20 01/07/23 Rx Montelukast [Singulair] 10 mg PO HS 11/23/20 01/07/23 History Atorvastatin Calcium [Lipitor] 80 mg PO HS 03/25/21 01/07/23 History Albuterol Nebulized [Ventolin 2.5 mg INHALATION RT-Q4H PRN 08/20/21 01/07/23 His tory Nebulized] Albuterol Sulfate [Proair Hfa] 2 puff INHALATION RT-Q4H PRN 08/20/21 01/07/23 History Aspirin EC [Ecotrin Low Dose] 81 mg PO DAILY 12/13/21 01/07/23 History Nitroglycerin Sl Tabs [Nitrostat] 0.4 mg SUBLINGUAL Q5M PRN #25 tab 08/13/22 01/07/23 Rx Verapamil HCl [Verapamil ER] 120 mg PO DAILY 10/13/22 01/07/23 History Isosorbide Mononitrate ER [Imdur] 30 mg PO BID #60 tab 10/14/22 01/07/23 Rx Pantoprazole [Protonix] 40 mg PO BID 30 Days #60 tab 10/14/22 01/07/23 Rx lisinopriL [Zestril] 5 mg PO DAILY #30 tab 10/14/22 01/07/23 Rx Arformoterol Tartrate [Brovana] 15 mcg INHALATION RT-BID 11/13/22 01/07/23 History Budesonide [Pulmicort] 0.25 mg INHALATION RT-BID 11/13/22 01/07/23 History Yupelri 175 Mcg/3ml Nebulizer 175 mcg INHALATION RT-DAILY 11/13/22 01/07/23 History Solution Ezetimibe [Zetia] 10 mg PO DAILY #60 tab 11/16/22 01/07/23 Rx Cyclobenzaprine [Flexeril] 10 mg PO TID PRN 01/07/23 01/07/23 History Ondansetron [Zofran] 4 mg PO Q8HR PRN 01/07/23 01/07/23 History Promethazine [Phenergan] 25 mg PO DAILY PRN 01/07/23 01/07/23 History Triamcinolone 0.5% Cream [Kenalog 1 applic TOPICAL BID PRN 01/07/23 01/07/23 History 0.5% Cream] oxyCODONE-APAP 7.5-325MG [Percocet 1 tab PO Q4HR PRN 01/07/23 01/07/23 History 7.5-325 mg] Allergies Allergy/AdvReac Type Severity Reaction Status Date / Time [facility] AdvReac Nausea & Verified 12/31/22 12:47 Vomiting Physical Exam Vitals: Vital Signs Temp Pulse Resp BP Pulse Ox 01/07/23 07:42 97.7 F 68 18 118/90 97 01/07/23 06:00 58 L 18 128/96 95 01/07/23 03:26 60 16 134/78 97 01/07/23 01:36 120/64 01/07/23 01:15 98.7 F 68 18 154/92 98 Intake and Output 01/06/23 01/07/23 01/07/23 22:59 06:59 14:59 Other: Weight 87.09 kg Results CBC & Chem 7: 01/07/23 01:18 01/07/23 01:18 Labs: Abnormal Lab Results - Last 24 Hours (Table) 01/07/23 01/07/23 Range/Units 01:18 01:18 WBC 12.5 H (3.8-10.6) k/uL Neutrophils # 7.8 H (1.3-7.7) k/uL Sodium 134 L (137-145) mmol/L Carbon Dioxide 19 L (22-30) mmol/L Glucose 103 H (74-99) mg/dL Thrombosis Risk Factor Assmnt - DVT/VTE Prophylaxis DVT/VTE Prophylaxis: Mechanical Prophylaxis ordered Assessment and Plan Assessment: Assessment and plan Chest pain rule out acute coronary syndrome Coronary artery disease with history of PCI July 2022 Hypertension COPD Dyslipidemia History of osteoarthritis * In regards to chest pain, consultations obtained from cardiology. Serial troponins ordered * In regards to hypertension continue home regimen including Imdur, lisinopril, valsartan * In regards to COPD bronchodilator protocol initiated continue home regimen * In regards to dyslipidemia continue statin * CODE STATUS is full code
--- NOTE | 2023-01-07 12:38 | P.DS ---
Providers Date of admission: 01/07/23 03:41 Expected date of discharge: 01/07/23 Attending physician: Naseem Diehl Consults: 01/07/23 03:39 Consult Physician Routine Consulting Provider: [facility] Consult Reason/Comments: chest pain/angina Do you want consulting provider notified?: Yes Primary care physician: Nickolas De La O [facility] Hospital Course: * 62-year-old gentleman with past medical history of coronary artery disease with recent PCI to RCA, LAD in July 2022, history of dyslipidemia, COPD, nicotine use, hypertension presented to the emergency department with compla ins of chest pain. * Patient follows up with cardiology outpatient, workup initiated in ER included serial troponins and EKG and cardiology consultation * Patient had initial EKG done which showed sinus rhythm no significant ST segment changes * Initial workup done including a chest x-ray was within normal limits * Blood work obtained in ER included hematology which were WBC 12.5 hemoglobin 14.8 platelet count of 236. INR of 0.9 * Patient was placed in observation unit and worked up for ACS * During the hospital stay patient has multiple troponins done which were negative. * Patient was precaution started on IV heparin which was discontinued. * He was seen by cardiology and cleared for discharge PHYSICAL EXAMINATION: GENERAL: The patient is alert and oriented x3, not in any acute distress. Well developed, well nourished. HEENT: Pupils are round and equally reacting to light. EOMI. No scleral icterus. No conjunctival pallor. Normocephalic, atraumatic. No pharyngeal erythema. No thyromegaly. CARDIOVASCULAR: S1 and S2 present. No murmurs, rubs, or gallops. PULMONARY: Chest is clear to auscultation, no wheezing or crackles. ABDOMEN: Soft, nontender, nondistended, normoactive bowel sounds. No palpable organomegaly. MUSCULOSKELETAL: Right arm in sling EXTREMITIES: No cyanosis, clubbing, or pedal edema. NEUROLOGICAL: Gross neurological examination did not reveal any focal deficits. SKIN: No rashes. Assessment: Assessment and plan Chest pain rule out acute coronary syndrome Coronary artery disease with history of PCI July 2022 Hypertension COPD Dyslipidemia History of osteoarthritis * In regards to chest pain, consultations obtained from cardiology. Serial troponins ordered, negative, cleared for discharge * In regards to hypertension continue home regimen including Imdur, lisinopril, valsartan * In regards to COPD bronchodilator protocol initiated continue home regimen * In regards to dyslipidemia continue statin * Outpatient follow-up with cardiology Patient Condition at Discharge: Stable Plan - Discharge Summary New Discharge Prescriptions: Continue Clopidogrel [Plavix] 75 mg PO DAILY #30 tab Montelukast [Singulair] 10 mg PO HS Aspirin EC [Ecotrin Low Dose] 81 mg PO DAILY Verapamil HCl [Verapamil ER] 120 mg PO DAILY Isosorbide Mononitrate ER [Imdur] 30 mg PO BID #60 tab lisinopriL [Zestril] 5 mg PO DAILY #30 tab Yupelri 175 Mcg/3ml Nebulizer Solution 175 mcg INHALATION RT-DAILY Budesonide [Pulmicort] 0.25 mg INHALATION RT-BID Ondansetron [Zofran] 4 mg PO Q8HR PRN PRN Reason: Nausea Promethazine [Phenergan] 25 mg PO DAILY PRN PRN Reason: Nausea Atorvastatin Calcium [Lipitor] 80 mg PO HS Albuterol Sulfate [Proair Hfa] 2 puff INHALATION RT-Q4H PRN PRN Reason: Shortness Of Breath Albuterol Nebulized [Ventolin Nebulized] 2.5 mg INHALATION RT-Q4H PRN PRN Reason: Shortness Of Breath Nitroglycerin Sl Tabs [Nitrostat] 0.4 mg SUBLINGUAL Q5M PRN #25 tab PRN Reason: Chest Pain Pantoprazole [Protonix] 40 mg PO BID 30 Days #60 tab Arformoterol Tartrate [Brovana] 15 mcg INHALATION RT-BID Ezetimibe [Zetia] 10 mg PO DAILY #60 tab oxyCODONE-APAP 7.5-325MG [Percocet 7.5-325 mg] 1 tab PO Q4HR PRN PRN Reason: Pain Triamcinolone 0.5% Cream [Kenalog 0.5% Cream] 1 applic TOPICAL BID PRN PRN Reason: Skin Irritation Cyclobenzaprine [Flexeril] 10 mg PO TID PRN PRN Reason: Muscle Spasm Discharge Medication List Clopidogrel [Plavix] 75 mg PO DAILY #30 tab 11/02/20 [Rx] Montelukast [Singulair] 10 mg PO HS 11/23/20 [History] Atorvastatin Calcium [Lipitor] 80 mg PO HS 03/25/21 [History] Albuterol Nebulized [Ventolin Nebulized] 2.5 mg INHALATION RT-Q4H PRN 08/20/21 [History] Albuterol Sulfate [Proair Hfa] 2 puff INHALATION RT-Q4H PRN 08/20/21 [History] Aspirin EC [Ecotrin Low Dose] 81 mg PO DAILY 12/13/21 [History] Nitroglycerin Sl Tabs [Nitrostat] 0.4 mg SUBLINGUAL Q5M PRN #25 tab 08/13/22 [Rx] Verapamil HCl [Verapamil ER] 120 mg PO DAILY 10/13/22 [History] Isosorbide Mononitrate ER [Imdur] 30 mg PO BID #60 tab 10/14/22 [Rx] Pantoprazole [Protonix] 40 mg PO BID 30 Days #60 tab 10/14/22 [Rx] lisinopriL [Zestril] 5 mg PO DAILY #30 tab 10/14/22 [Rx] Arformoterol Tartrate [Brovana] 15 mcg INHALATION RT-BID 11/13/22 [History] Budesonide [Pulmicort] 0.25 mg INHALATION RT-BID 11/13/22 [History] Yupelri 175 Mcg/3ml Nebulizer Solution 175 mcg INHALATION RT-DAILY 11/13/22 [History] Ezetimibe [Zetia] 10 mg PO DAILY #60 tab 11/16/22 [Rx] Cyclobenzaprine [Flexeril] 10 mg PO TID PRN 01/07/23 [History] Ondansetron [Zofran] 4 mg PO Q8HR PRN 01/07/23 [History] Promethazine [Phenergan] 25 mg PO DAILY PRN 01/07/23 [History] Triamcinolone 0.5% Cream [Kenalog 0.5% Cream] 1 applic TOPICAL BID PRN 01/07/23 [History] oxyCODONE-APAP 7.5-325MG [Percocet 7.5-325 mg] 1 tab PO Q4HR PRN 01/07/23 [History] Follow up Appointment(s)/Referral(s): Nickolas French [Primary Care Provider] - 1-2 days Idris De Luna MD [STAFF PHYSICIAN] - 1 Week Discharge Disposition: HOME SELF-CARE
[2023-01-07 13:28] VITALS: BP 134/72; PULSE 74
[2023-01-07] MEDS ORDERED: BUDESONIDE 0.25 MG/2 ML NEBU INHALATION SCH (20:00)
[2023-01-07] MEDS ORDERED: FORMOTEROL FUMARATE 20 MCG/2 ML NEBU INHALATION SCH (20:00)
[2023-01-07] MEDS ORDERED: ATORVASTATIN 80 MG TAB PO SCH ×2 (21:00)
[2023-01-07] MEDS ORDERED: MONTELUKAST 10 MG TAB PO SCH (21:00)
== END 2023-01-07 14:08 | disposition home or self-care (01) ==
LOC: SUPCPDRO 01:13 → EC 01:13 → INTOOBSV 03:41 → 3SCARD 03:41 → UNDODISIN 14:08
PROVIDERS: ADMIT Hospitalist; ATTEND Hospitalist
DX: R07.89 Other chest pain (principal); I25.10 Atherosclerotic heart disease of native coronary artery without angina pectoris; J44.9 Chronic obstructive pulmonary disease, unspecified; E78.5 Hyperlipidemia, unspecified; I10 Essential (primary) hypertension; I25.2 Old myocardial infarction; Z87.891 Personal history of nicotine dependence; Z95.5 Presence of coronary angioplasty implant and graft; Z79.899 Other long term (current) drug therapy; Z79.82 Long term (current) use of aspirin; Z88.1 Allergy status to other antibiotic agents
CPT/HCPCS: 96376; 96361; 96374; 99291; 36415; 94640; 93005; 80053; 83690; 83735; 84484; 85025; 85610; 85730; 71045; G0378; J1644 ×2; 96365; 96366